=== PATIENT | male | born 1945 | race Caucasian/White ===

== ENCOUNTER 2017-07-02 15:14 | Inpatient (IN) | payer MEDICARE, MEDICAID ==
[2017-07-02] VITALS (7 sets, daily range): BP systolic 110–147; BP diastolic 54–59; PULSE 67–74; RESP 16–20; TEMP 97.7–98.3; O2SAT 96–98
[~2017-07-02] VITALS: Ht 172.7 cm; Wt 114.8 kg
[~2017-07-02 15:14] MED LIST: BUME2TAB PO; LANTUSP SQ; LISI-366 PO; LORT5TAB PO; LYRI150C PO; METO50TA OR; NOVOLOGP2 SQ; OMEP20TA OR; PRED10PA PO; RAMI10CA PO; SPIR25TA PO; SYNT25TA PO
[2017-07-02] MEDS ORDERED: SODIUM CHLORIDE 0.9% FLUSH 10 ML FLUSH IV FLUSH PRN ×2 (15:45→19:00)
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
[2017-07-02] MEDS ORDERED: PREG25 PO (15:54)
[2017-07-02] MEDS ORDERED: B-CO1TAB21 PO (15:54)
[2017-07-02] MEDS ORDERED: DOCU100T9 PO (15:54)
[2017-07-02] MEDS ORDERED: CALC500C16 CHEW (15:54)
[2017-07-02] MEDS ORDERED: ISOS60TA PO (15:54)
[2017-07-02] MEDS ORDERED: FERR325T8 PO (15:54)
[2017-07-02] MEDS ORDERED: SPIRCAP INH (15:54)
[2017-07-02] MEDS ORDERED: OMEP20TA PO (15:54)
[2017-07-02] MEDS ORDERED: ATOR40TA16 PO (15:54)
[2017-07-02] MEDS ORDERED: FURO40TA PO (15:54)
[2017-07-02] MEDS ORDERED: LEVO200T4 PO (15:54)
[2017-07-02] MEDS ORDERED: PIOG45TA3 PO (15:54)
[2017-07-02] MEDS ORDERED: METO-309 PO (15:54)
[2017-07-02] MEDS ORDERED: CALC0.25 PO (15:54)
[2017-07-02] MEDS ORDERED: APIX5TAB PO (15:54)
[2017-07-02] MEDS ORDERED: LANTINJ SQ (15:54)
[2017-07-02] MEDS ORDERED: MAGN400T2 PO (15:54)
[2017-07-02] MEDS ORDERED: TAMS0.4C4 PO (15:54)
[2017-07-02 16:00] LABS: AUTOMATED NEUTROPHIL # 12.1 TH/MM3 (1.8-7.7); BASOPHIL # 0.1 TH/MM3 (0-0.2); BASOPHIL % 0.4 % (0.0-2.0); EOSINOPHIL # 0.5 TH/MM3 (0-0.4); EOSINOPHIL % 3.4 % (0.0-4.0); HEMATOCRIT 31.2 % (39.0-51.0); HEMO FLAGS DIFF FINAL; LYMPH % 5.9 % (9.0-44.0); LYMPHOCYTE # 0.9 TH/MM3 (1.0-4.8); MEAN CELL VOLUME 88.8 FL (80.0-100.0); MEAN CORPUSCULAR HEMOGLOBIN 29.7 PG (27.0-34.0); MEAN CORPUSCULAR HGB CONC 33.5 % (32.0-36.0); NEUT % 78.3 % (16.0-70.0); PLATELET COUNT 423 TH/MM3 (150-450); RED BLOOD COUNT 3.51 MIL/MM3 (4.50-5.90); RED CELL DISTRIBUTION WIDTH 12.4 % (11.6-17.2); WHITE BLOOD COUNT 15.5 TH/MM3 (4.0-11.0)
[2017-07-02 16:09] LABS: CHLORIDE 95 MEQ/L (98-107); POTASSIUM 4.5 MEQ/L (3.5-5.1); SODIUM (NA) 129 MEQ/L (136-145)
[2017-07-02 16:13] LABS: ANION GAP 9 MEQ/L (5-15); BICARBONATE 25.1 MEQ/L (21.0-32.0); BLOOD UREA NITROGEN 76 MG/DL (7-18)
[2017-07-02 16:16] LABS: ALT (GPT) 25 U/L (12-78); AST (GOT) 23 U/L (15-37); GLOMERULAR FILTRATION RATE 18 ML/MIN (>89)
[2017-07-02 16:17] LABS: TOTAL BILIRUBIN ADULT 0.3 MG/DL (0.2-1.0)
[2017-07-02 16:19] LABS: ALKALINE PHOSPHATASE 165 U/L (45-117)
[2017-07-02] MEDS ORDERED: SODIUM CHLORID 0.9% 500 ML INJ 500 ML IV ONE (16:30)
[2017-07-02] MEDS ORDERED: SODIUM CHLOR 0.9% 1000 ML INJ 1,000 ML IV ONE (16:30)
--- NOTE | 2017-07-02 17:02 | RADRPT ---
EXAM DATE/TIME: 07/02/2017 16:45 [place] COMPARISON: No previous studies available for comparison. INDICATIONS : Generalized abdominal pain. ORAL CONTRAST: No oral contrast ingested. RADIATION DOSE: 24.99 CTDIvol (mGy) MEDICAL HISTORY : Cerebrovascular disease. Cardiovascular disease Diabetes SURGICAL HISTORY : CABG ENCOUNTER: Initial ACUITY: 1 day PAIN SCALE: 7/10 LOCATION: Bilateral abdomen TECHNIQUE: Volumetric scanning of the abdomen and pelvis was performed. Using automated exposure control and ad justment of the mA and/or kV according to patient size, radiation dose was kept as low as reasonably achievable to obtain optimal diagnostic quality images. DICOM format image data is available electro nically for review and comparison. FINDINGS: LOWER LUNGS: The visualized lower lungs are clear. LIVER: Homogeneous density without lesion. There is no dilation of the biliary tree. No calcified gallston es. SPLEEN: Normal size without lesion. PANCREAS: Within normal limits. KIDNEYS: There is a 9-10 mm stone in the left renal pelvis. No evidence of associated hydronephrosis. Vascular calcifications involving the left renal vessels. No stone, mass or hydronephrosis. ADRENAL GLANDS: Within normal limits. VASCULAR: There is no aortic aneurysm. BOWEL/MESENTERY: The stomach, small bowel, and colon demonstrate no acute abnormality. There is no free intraperitone al air or fluid. ABDOMINAL WALL: Within normal limits. RETROPERITONEUM: There is no lymphadenopathy. BLADDER: No wall thickening or mass. REPRODUCTIVE: Within normal limits. INGUINAL: There is no lymphadenopathy or hernia. MUSCULOSKELETAL: Within normal limits for patient age. CONCLUSION: 9-10 mm right kidney stone. No hydronephrosis. Otherwise benign focally unremarkable CT appearance of the abdomen and pelvis. Ashvin Pereira MD on July 02, 2017 at 16:56 Board Certified Radiologist. This report was verified electronically.
[2017-07-02 17:45] LABS: BLOOD, URINE LARGE (NEG); GLUCOSE,URINE NEG (NEG); KETONE, URINE NEG (NEG); NITRITE,URINE NEG (NEG)
[2017-07-02 17:58] LABS: METHOD OF COLLECTION CATH; URINE COLOR YELLOW (YELLW/STRAW)
[2017-07-02 17:59] LABS: MUCUS URINE FEW /lpf (OCC); RBC, URINE INNUM /hpf (0-3); SQUAMOUS EPITHELIAL CELL URINE 0-5 /hpf (0-5)
[2017-07-02 18:01] LABS: BACTERIA, URINE OCC /hpf; COMMENT (UR) CATH-CULTURE IND; CULTURE IF INDICATED CATH CULTURE IND
[2017-07-02] MEDS ORDERED: cefTRIAXone INJ 1,000 MG in SODIUM CHLORIDE 0.9% INJ 100 ML IV ONE (18:15)
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
[2017-07-02] MEDS ORDERED: MAGNESIUM HYDROXIDE SUSP 30 ML CUP PO PRN (19:00)
[2017-07-02] MEDS ORDERED: CALCIUM CARBONATE 500 MG CHEWABLE TAB CHEW PRN (19:00)
[2017-07-02] MEDS ORDERED: NALOXONE HCL 0.4 MG/ML AMP IV PRN (19:00)
[2017-07-02] MEDS ORDERED: BISACODYL 10 MG SUPP RECTAL PRN (19:00)
[2017-07-02] MEDS ORDERED: GLUCAGON 1 MG/ML VIAL OTHER PRN (19:00)
[2017-07-02] MEDS ORDERED: DEXTROSE 50% IN WATER 50 ML VIAL(D50) IV PRN (19:00)
[2017-07-02] MEDS ORDERED: ONDANSETRON HCL 4 MG/2 ML VIAL IVP PRN (19:00)
[2017-07-02] MEDS ORDERED: LACTULOSE SYRUP 20 GM/30 ML CUP PO PRN (19:00)
[2017-07-02] MEDS ORDERED: SENNOSIDES 8.6 MG TAB PO PRN (19:00)
[2017-07-02] MEDS: INSULIN ASPART SUPPLEMENTAL SCALE SQ SCH (21:00)
[2017-07-02] MEDS: PANTOPRAZOLE SOD 20 MG DELAYED RELEASE TAB PO SCH ×2 (21:14→21:16)
[2017-07-02] MEDS: TAMSULOSIN HCL 0.4 MG CAP PO SCH ×2 (21:14→21:16)
[2017-07-02] MEDS: METOPROLOL TARTRATE 50 MG TAB PO SCH ×2 (21:14→21:16)
[2017-07-02] MEDS: DOCUSATE SODIUM 100 MG CAP PO SCH ×2 (21:14→21:16)
[2017-07-02] MEDS: DOCUSATE SODIUM 50 MG/SENNA 8.6 MG TAB PO SCH (21:17)
[2017-07-02] MEDS: APIXABAN 2.5 MG TABLET PO SCH (22:23)
[2017-07-02] MEDS: ATORVASTATIN 40 MG TAB PO SCH (22:24)
[2017-07-02] MEDS: PREGABALIN 25 MG CAP PO SCH (22:24)
[2017-07-02] MEDS: SODIUM CHLOR 0.9% 1000 ML INJ 1,000 ML IV SCH (22:24)
[2017-07-02] MEDS: SODIUM CHLORIDE 0.9% FLUSH 10 ML FLUSH IV FLUSH SCH (22:28)
[2017-07-02] MEDS: INSULIN DETEMIR 100 UNITS/ML VIAL SQ SCH (22:34)
[2017-07-03 04:00] VITALS: BP 107/53; PULSE 75; RESP 20; TEMP 98.9; O2SAT 95
[2017-07-03] MEDS: INSULIN ASPART SUPPLEMENTAL SCALE SQ SCH ×4 (05:20→21:00)
[2017-07-03] MEDS: LEVOTHYROXINE SODIUM 200 MCG TAB PO SCH (05:21)
[2017-07-03 06:38] LABS: AUTOMATED NEUTROPHIL # 9.7 TH/MM3 (1.8-7.7); BASOPHIL % 0.3 % (0.0-2.0); EOSINOPHIL # 0.5 TH/MM3 (0-0.4); HEMATOCRIT 28.4 % (39.0-51.0); LYMPH % 7.7 % (9.0-44.0); MEAN CELL VOLUME 88.2 FL (80.0-100.0); MEAN CORPUSCULAR HEMOGLOBIN 28.8 PG (27.0-34.0); MEAN CORPUSCULAR HGB CONC 32.6 % (32.0-36.0); MONO % 11.4 % (0.0-8.0); NEUT % 76.6 % (16.0-70.0); PLATELET COUNT 402 TH/MM3 (150-450); RED BLOOD COUNT 3.22 MIL/MM3 (4.50-5.90); RED CELL DISTRIBUTION WIDTH 12.4 % (11.6-17.2); WHITE BLOOD COUNT 12.6 TH/MM3 (4.0-11.0)
[2017-07-03 06:46] LABS: HEMO FLAGS DIFF FINAL
[2017-07-03 06:59] LABS: POTASSIUM 4.3 MEQ/L (3.5-5.1)
[2017-07-03 07:02] LABS: BICARBONATE 25.1 MEQ/L (21.0-32.0)
[2017-07-03 08:00] VITALS: BP 153/70; PULSE 73; RESP 20; TEMP 98; O2SAT 95
[2017-07-03] MEDS ORDERED: [UNRECOGNIZED DRUG - OTHER] PO SCH (09:00)
[2017-07-03] MEDS: MAGNESIUM OXIDE 400 MG TAB PO SCH (09:09)
[2017-07-03] MEDS: CALCITRIOL 0.25 MCG CAP PO SCH (09:09)
[2017-07-03] MEDS: PREGABALIN 25 MG CAP PO SCH ×2 (09:09→21:54)
[2017-07-03] MEDS: DOCUSATE SODIUM 50 MG/SENNA 8.6 MG TAB PO SCH ×2 (09:09→21:54)
[2017-07-03] MEDS: APIXABAN 2.5 MG TABLET PO SCH ×2 (09:10→21:53)
[2017-07-03] MEDS: DOCUSATE SODIUM 100 MG CAP PO SCH (09:10)
[2017-07-03] MEDS: ISOSORBIDE MONONITRATE 60 MG TAB PO SCH (09:10)
[2017-07-03] MEDS: PANTOPRAZOLE SOD 20 MG DELAYED RELEASE TAB PO SCH ×2 (09:10→21:54)
[2017-07-03] MEDS: SODIUM CHLORIDE 0.9% FLUSH 10 ML FLUSH IV FLUSH SCH ×2 (09:12→20:29)
[2017-07-03] MEDS: FERROUS SULFATE 325 MG (65 MG ELEMENTAL IRON) TAB PO SCH ×2 (09:38→17:36)
[2017-07-03] MEDS: TIOTROPIUM BROMIDE 18 MCG INH INH SCH (11:00)
[2017-07-03] MEDS: SODIUM CHLOR 0.9% 1000 ML INJ 1,000 ML IV SCH (11:02)
[2017-07-03 12:00] VITALS: BP 148/72; PULSE 74; RESP 20; TEMP 98.1; O2SAT 95
--- NOTE | 2017-07-03 12:19 | HHI.PR ---
Subjective Remarks Patient continues to complain of pain all over. He has a Mans[place] catheter and with adequate urine output. Objective Vitals Vital Signs Date Time Temp Pulse Resp B/P (MAP) Pulse Ox O2 Delivery O2 Flow Rate FiO2 07/03/17 11:03 18 07/03/17 08:00 98.0 73 20 153/70 (97) 95 07/03/17 04:00 98.9 75 20 107/53 (71) 95 07/02/17 22:00 97.7 74 20 118/58 (78) 97 07/02/17 21:27 77 18 147/55 (85) 96 07/02/17 20:30 72 18 144/55 (84) 96 Room Air 07/02/17 19:30 16 07/02/17 19:19 72 16 141/59 (86) 96 Room Air 07/02/17 17:08 97 Room Air 07/02/17 17:00 98.3 74 18 134/59 (84) 98 Room Air 07/02/17 15:23 98.3 67 18 110/54 (72) 98 I/O 07/02/17 07/02/17 07/02/17 07/03/17 07/03/17 07/03/17 07:00 15:00 23:00 07:00 15:00 23:00 Intake Total 600 ml 1960 ml Output Total 750 ml 1525 ml Balance -150 ml 435 ml Intake Oral 460 ml IV Total 600 ml 1500 ml Output Urine Total 750 ml 1525 ml Bladder Scan Volume Amount 0 ml # Bowel Movements 0 Result Diagram: 07/03/17 0609 07/03/17 0609 Objective Remarks GENERAL: Well-nourished, well-developed obese male patient. SKIN: Warm and dry. HEAD: Normocephalic. EYES: No scleral icterus. No injection or drainage. NECK: Supple, trachea midline. No JVD or lymphadenopathy. CARDIOVASCULAR: Regular rate and rhythm without murmurs, gallops, or rubs. RESPIRATORY: Breath sounds equal bilaterally. No accessory muscle use. GASTROINTESTINAL: Abdomen soft, non-tender, nondistended. EXTREMITIES: 1+ pedal edema NEUROLOGICAL: Awake, alert, and oriented x 3. Non-focal. A/P Problem List: (1) GABBI (acute kidney injury) ICD Code: N17.9 - Acute kidney failure, unspecified (2) CKD (chronic kidney disease), stage IV ICD Code: N18.4 - Chronic kidney disease, stage 4 (severe) (3) Type 2 diabetes mellitus ICD Code: E11.9 - Type 2 diabetes mellitus without complications (4) Coronary artery disease ICD Code: I25.10 - Atherosclerotic heart disease of [place] coronary artery without angina pectoris (5) Cerebrovascular disease ICD Code: I67.9 - Cerebrovascular disease, unspecified (6) Generalized pain ICD Code: R52 - Pain, unspecified (7) UTI (urinary tract infection) ICD Code: N39.0 - Urinary tract infection, site not specified Status: Acute Assessment and Plan -Acute kidney injury superimposed on chronic kidney disease stage IV - likely etiology is decreased by mouth intake versus secondary to his Lasix. Abdominal CT scan shows a nondistended bladder. He did undergo a TURP several weeks ago. Treat with gentle IV fluids. Continue with Mansfield catheter. -Urinary tract infection with leukocytosis, he does not meet sepsis criteria. Continue with Rocephin IV. Follow-up urine cultures. -Type 2 diabetes -continue Lantus 12 units subcutaneous at bedtime, and sliding scale insulin. -Coronary artery disease status post CABG, status post stent one month ago with Dr. Jenkins as per the patient - continue Eliquis, it has been changed to renal dosing. -BPH status post TURP several weeks ago - continue Flomax. Continue Mansfield catheter. Possible trial to discontinue tomorrow if renal function improved. -Cerebrovascular disease with history of stroke - continue Eliquis, statin. -Reported history of paroxysmal Atrial fibrillation - continue Eliquis, metoprolol. -COPD-use DuoNeb's when necessary. -Fibromyalgia - continue Lyrica -Anemia of chronic kidney disease - follow CBC, continue iron supplementation. -History of gastric ulcer. Continue PPI. -DVT prophylaxis with Eliquis, SCDs and SHANIA hose. Problem Qualifiers (1) UTI (urinary tract infection): Qualified Codes: N39.0 - Urinary tract infection, site not specified; R31.9 - Hematuria, unspecified Patience Pacheco MD Jul 03, 2017 12:19
--- NOTE | 2017-07-03 13:52 | EKG ---
Date Performed: 07/02/2017 Time Performed: 16:15:41 PTAGE: 71 years EKG: Sinus rhythm NORMAL ECG Compared to prior tracing no significant change PREVIOUS TRACING : 10/25/2011 04.51 DOCTOR: Cecilio Aguilar Interpretating Date/Time 07/03/2017 13:50:56
[2017-07-03 16:00] VITALS: BP 145/78; PULSE 73; RESP 20; TEMP 98.2; O2SAT 95
[2017-07-03] MEDS: cefTRIAXone INJ 1,000 MG in SODIUM CHLORIDE 0.9% INJ 100 ML IV SCH (17:36)
[2017-07-03 20:00] VITALS: BP 158/67; PULSE 75; RESP 20; TEMP 98.8; O2SAT 96
[2017-07-03] MEDS: METOPROLOL TARTRATE 50 MG TAB PO SCH (21:54)
[2017-07-03] MEDS: ATORVASTATIN 40 MG TAB PO SCH (21:54)
[2017-07-03] MEDS: TAMSULOSIN HCL 0.4 MG CAP PO SCH (21:54)
[2017-07-03] MEDS: INSULIN DETEMIR 100 UNITS/ML VIAL SQ SCH (22:02)
[2017-07-03] MEDS ORDERED: ACETAMINOPHEN/HYDROcodone 325 MG/5 MG TAB PO ONE (22:30)
[2017-07-04] VITALS (7 sets, daily range): BP systolic 132–163; BP diastolic 64–90; PULSE 62–75; RESP 16–22; TEMP 96–98.7; O2SAT 95–99
[2017-07-04] MEDS: LEVOTHYROXINE SODIUM 200 MCG TAB PO SCH (05:19)
[2017-07-04] MEDS: INSULIN ASPART SUPPLEMENTAL SCALE SQ SCH ×4 (05:50→21:00)
[2017-07-04] MEDS: SODIUM CHLOR 0.9% 1000 ML INJ 1,000 ML IV SCH (06:12)
[2017-07-04 07:44] LABS: BICARBONATE 25.6 MEQ/L (21.0-32.0)
[2017-07-04 08:39] LABS: AUTOMATED NEUTROPHIL # 8.7 TH/MM3 (1.8-7.7); BASOPHIL % 0.1 % (0.0-2.0); EOSINOPHIL # 0.5 TH/MM3 (0-0.4); EOSINOPHIL % 4.4 % (0.0-4.0); HEMATOCRIT 27.8 % (39.0-51.0); HEMO FLAGS DIFF FINAL; LYMPHOCYTE # 0.9 TH/MM3 (1.0-4.8); MEAN CELL VOLUME 89.7 FL (80.0-100.0); MEAN CORPUSCULAR HEMOGLOBIN 30.9 PG (27.0-34.0); MEAN CORPUSCULAR HGB CONC 34.4 % (32.0-36.0); MONO % 11.2 % (0.0-8.0); NEUT % 76.3 % (16.0-70.0); PLATELET COUNT 414 TH/MM3 (150-450); RED CELL DISTRIBUTION WIDTH 12.4 % (11.6-17.2); WHITE BLOOD COUNT 11.4 TH/MM3 (4.0-11.0)
[2017-07-04] MEDS: TIOTROPIUM BROMIDE 18 MCG INH INH SCH (08:54)
[2017-07-04] MEDS: DOCUSATE SODIUM 50 MG/SENNA 8.6 MG TAB PO SCH ×2 (08:55→22:20)
[2017-07-04] MEDS: FERROUS SULFATE 325 MG (65 MG ELEMENTAL IRON) TAB PO SCH ×2 (08:55→17:19)
[2017-07-04] MEDS: ISOSORBIDE MONONITRATE 60 MG TAB PO SCH (08:55)
[2017-07-04] MEDS: CALCITRIOL 0.25 MCG CAP PO SCH (08:55)
[2017-07-04] MEDS: MAGNESIUM OXIDE 400 MG TAB PO SCH (08:55)
[2017-07-04] MEDS: APIXABAN 2.5 MG TABLET PO SCH ×2 (08:55→22:19)
[2017-07-04] MEDS: SODIUM CHLORIDE 0.9% FLUSH 10 ML FLUSH IV FLUSH SCH ×2 (08:55→22:19)
[2017-07-04] MEDS: PREGABALIN 25 MG CAP PO SCH ×2 (09:09→22:20)
[2017-07-04] MEDS: METOPROLOL TARTRATE 50 MG TAB PO SCH ×2 (09:09→22:20)
[2017-07-04] MEDS: PANTOPRAZOLE SOD 20 MG DELAYED RELEASE TAB PO SCH ×2 (09:09→22:20)
[2017-07-04] MEDS: ACETAMINOPHEN 325 MG TAB PO PRN (09:13)
--- NOTE | 2017-07-04 11:50 | HHI.PR ---
Subjective Remarks Patient reports he is feeling tired and achy all over. Discussed with RN. He was not able to get up to the chair today due to pain.. Objective Vitals Vital Signs Date Time Temp Pulse Resp B/P (MAP) Pulse Ox O2 Delivery O2 Flow Rate FiO2 07/04/17 10:09 20 07/04/17 10:09 20 07/04/17 08:00 98.7 75 20 139/90 (106) 95 07/04/17 04:00 96.9 70 20 149/72 (97) 97 07/04/17 03:00 96.0 72 20 144/64 (90) 97 07/04/17 00:00 96.0 72 20 144/64 (90) 97 07/03/17 20:00 98.8 75 20 158/67 (97) 96 07/03/17 16:00 98.2 73 20 145/78 (100) 95 07/03/17 12:00 98.1 74 20 148/72 (97) 95 I/O 07/03/17 07/03/17 07/03/17 07/04/17 07/04/17 07/04/17 07:00 15:00 23:00 07:00 15:00 23:00 Intake Total 1960 ml 120 ml 863 ml 60 ml Output Total 1525 ml 1650 ml 800 ml Balance 435 ml -1530 ml 863 ml -740 ml Intake Oral 460 ml 120 ml 120 ml 60 ml IV Total 1500 ml 743 ml Output Urine Total 1525 ml 1650 ml 800 ml # Bowel Movements 0 0 0 Result Diagram: 07/04/17 0655 07/04/17 0655 Imaging Last Impressions Abdomen/Pelvis CT 07/02/17 0000 Signed Impressions: Service Date/Time: Sunday, July 02, 2017 16:45 - CONCLUSION: 9-10 mm right kidney stone. No hydronephrosis. Otherwise benign focally unremarkable CT appearance of the abdomen and pelvis. Ashvin Pereira MD Objective Remarks GENERAL: Obese male in no apparent distress. CARDIOVASCULAR: Normal rate and regular rhythm without murmurs, gallops, or rubs. RESPIRATORY: Good respiratory efforts. Breath sounds equal and clear to auscultation bilaterally. GASTROINTESTINAL: Abdomen soft, non-tender, non-distended. Normal active bowel sounds MUSCULOSKELETAL: 2+ bilateral lower extremity edema NEURO: Alert & Oriented x4 to person, place, time, situation. Moves all ext x4 PSYCH: Appropriate mood and affect. A/P Problem List: (1) GABBI (acute kidney injury) ICD Code: N17.9 - Acute kidney failure, unspecified (2) CKD (chronic kidney disease), stage IV ICD Code: N18.4 - Chronic kidney disease, stage 4 (severe) (3) Type 2 diabetes mellitus ICD Code: E11.9 - Type 2 diabetes mellitus without complications (4) Coronary artery disease ICD Code: I25.10 - Atherosclerotic heart disease of [place] coronary artery without angina pectoris (5) Cerebrovascular disease ICD Code: I67.9 - Cerebrovascular disease, unspecified (6) Generalized pain ICD Code: R52 - Pain, unspecified (7) UTI (urinary tract infection) ICD Code: N39.0 - Urinary tract infection, site not specified Status: Acute Assessment and Plan 71-year-old male admitted for: Acute kidney injury superimposed on chronic kidney disease stage IV - likely etiology is decreased by mouth intake versus secondary to his Lasix. Abdominal CT scan shows a nondistended bladder. He did undergo a TURP several weeks ago. Renal function improving. Treat with gentle IV fluids. Continue with Mansfield catheter. Urinary tract infection with leukocytosis, he does not meet sepsis criteria. Continue with Rocephin IV. Follow-up urine cultures. Type 2 diabetes -continue Lantus 12 units subcutaneous at bedtime, and sliding scale insulin. Coronary artery disease status post CABG, status post stent one month ago with Dr. Jenkins as per the patient - continue Eliquis, it has been changed to renal dosing. PH status post TURP several weeks ago - continue Flomax. Continue Mansfield catheter. Possible trial to discontinue tomorrow if renal function improved. Cerebrovascular disease with history of stroke - continue Eliquis, statin. Reported history of paroxysmal Atrial fibrillation - continue Eliquis, metoprolol. COPD-use DuoNeb's when necessary. Fibromyalgia - continue Lyrica. Pain is interfering with physical activity. Will add [place] as needed. Anemia of chronic kidney disease - follow CBC, continue iron supplementation. History of gastric ulcer. Continue PPI. DVT prophylaxis with Eliquis, SCDs and SHANIA hose. Problem Qualifiers (1) UTI (urinary tract infection): Qualified Codes: N39.0 - Urinary tract infection, site not specified; R31.9 - Hematuria, unspecified Marek Lucio MD Jul 04, 2017 11:50
[2017-07-04] MEDS: ACETAMINOPHEN/HYDROcodone 325 MG/5 MG TAB PO PRN ×2 (12:20→22:21)
[2017-07-04] MEDS: cefTRIAXone INJ 1,000 MG in SODIUM CHLORIDE 0.9% INJ 100 ML IV SCH (15:04)
[2017-07-04] MEDS: NYSTATIN 100,000 U/GM PWD 15 GM BTL TOPICAL SCH ×2 (17:15→21:00)
[2017-07-04] MEDS: TAMSULOSIN HCL 0.4 MG CAP PO SCH (22:20)
[2017-07-04] MEDS: ATORVASTATIN 40 MG TAB PO SCH (22:20)
[2017-07-04] MEDS: INSULIN DETEMIR 100 UNITS/ML VIAL SQ SCH (22:23)
[2017-07-05] VITALS: BP 172/72; PULSE 69; RESP 16; TEMP 96.7; O2SAT 96
[2017-07-05 04:00] VITALS: BP 143/68; PULSE 77; RESP 16; TEMP 97.6; O2SAT 96
[2017-07-05] MEDS: LEVOTHYROXINE SODIUM 200 MCG TAB PO SCH (05:13)
[2017-07-05] MEDS: ACETAMINOPHEN/HYDROcodone 325 MG/5 MG TAB PO PRN ×2 (05:14→16:43)
[2017-07-05 06:57] LABS: MEAN CELL VOLUME 88.5 FL (80.0-100.0); MEAN CORPUSCULAR HEMOGLOBIN 29.4 PG (27.0-34.0); MEAN CORPUSCULAR HGB CONC 33.3 % (32.0-36.0); PLATELET COUNT 494 TH/MM3 (150-450); RED BLOOD COUNT 3.27 MIL/MM3 (4.50-5.90); RED CELL DISTRIBUTION WIDTH 12.1 % (11.6-17.2); REVIEW FLAG FINAL
[2017-07-05 08:00] VITALS: BP 126/79; PULSE 79; RESP 18; TEMP 98.1; O2SAT 95
[2017-07-05] MEDS: INSULIN ASPART SUPPLEMENTAL SCALE SQ SCH ×4 (08:00→20:41)
[2017-07-05] MEDS: TIOTROPIUM BROMIDE 18 MCG INH INH SCH (09:00)
[2017-07-05] MEDS: NYSTATIN 100,000 U/GM PWD 15 GM BTL TOPICAL SCH ×2 (09:00→20:41)
[2017-07-05] MEDS: CALCITRIOL 0.25 MCG CAP PO SCH (09:35)
[2017-07-05] MEDS: APIXABAN 2.5 MG TABLET PO SCH ×2 (09:35→20:40)
[2017-07-05] MEDS: METOPROLOL TARTRATE 50 MG TAB PO SCH ×2 (09:35→20:40)
[2017-07-05] MEDS: ISOSORBIDE MONONITRATE 60 MG TAB PO SCH (09:35)
[2017-07-05] MEDS: FERROUS SULFATE 325 MG (65 MG ELEMENTAL IRON) TAB PO SCH ×2 (09:35→16:42)
[2017-07-05] MEDS: SODIUM CHLORIDE 0.9% FLUSH 10 ML FLUSH IV FLUSH SCH ×2 (09:36→20:39)
[2017-07-05] MEDS: PANTOPRAZOLE SOD 20 MG DELAYED RELEASE TAB PO SCH ×2 (09:36→20:39)
[2017-07-05] MEDS: PREGABALIN 25 MG CAP PO SCH ×2 (09:36→20:39)
[2017-07-05] MEDS: DOCUSATE SODIUM 50 MG/SENNA 8.6 MG TAB PO SCH ×2 (09:36→20:39)
[2017-07-05] MEDS: MAGNESIUM OXIDE 400 MG TAB PO SCH (09:36)
[2017-07-05 12:00] VITALS: BP 131/77; PULSE 77; RESP 19; TEMP 98; O2SAT 97
--- NOTE | 2017-07-05 14:44 | HHI.PR ---
Subjective Remarks Patient seen and evaluated in follow-up for acute kidney injury and for urinary tract infection. Patient will start Macrodantin due to sensitivities he has refused medications for his dermatitis Objective Vitals Vital Signs Date Time Temp Pulse Resp B/P (MAP) Pulse Ox O2 Delivery O2 Flow Rate FiO2 07/05/17 12:00 98.0 77 19 131/77 (95) 97 07/05/17 11:46 20 07/05/17 08:00 98.1 79 18 126/79 (95) 95 07/05/17 04:00 97.6 77 16 143/68 (93) 96 07/05/17 00:00 96.7 69 16 172/72 (105) 96 07/04/17 20:00 97.2 74 16 163/72 (102) 99 07/04/17 16:00 98.4 70 20 132/75 (94) 96 I/O 07/04/17 07/04/17 07/04/17 07/05/17 07/05/17 07/05/17 07:00 15:00 23:00 07:00 15:00 23:00 Intake Total 863 ml 60 ml 1920 ml 480 ml Output Total 800 ml 2400 ml 950 ml 800 ml Balance 863 ml -740 ml -480 ml -470 ml -800 ml Intake Oral 120 ml 60 ml 900 ml 480 ml IV Total 743 ml 1020 ml Output Urine Total 800 ml 2400 ml 950 ml 800 ml Bladder Scan Volume Amount 0 ml # Bowel Movements 0 1 0 Result Diagram: 07/05/17 0535 07/05/17 0535 Objective Remarks Significant dermatitis, candidal GENERAL: This is a well-nourished, well-developed patient, in no apparent distress. CARDIOVASCULAR: Regular rate and rhythm without murmurs, gallops, or rubs. RESPIRATORY: Clear to auscultation. Breath sounds equal bilaterally. No wheezes , rales, or rhonchi. GASTROINTESTINAL: Abdomen soft, non-tender, nondistended. Normal active bowel sounds MUSCULOSKELETAL: Extremities without clubbing, cyanosis, or edema. NEURO: Alert & Oriented x4 to person, place, time, situation. Moves all ext x4 A/P Problem List: (1) GABBI (acute kidney injury) ICD Code: N17.9 - Acute kidney failure, unspecified Plan: Improved, continue IV hydration and follow-up on antibiotics for UTI (2) CKD (chronic kidney disease), stage IV ICD Code: N18.4 - Chronic kidney disease, stage 4 (severe) Plan: Appears to be back at baseline (3) Type 2 diabetes mellitus ICD Code: E11.9 - Type 2 diabetes mellitus without complications Plan: Continue diabetic management Discharge Planning Likely home in Evelyn Whitt MD Jul 05, 2017 14:44
[2017-07-05 16:00] VITALS: BP 129/79; PULSE 79; RESP 18; TEMP 97.8; O2SAT 96
[2017-07-05] MEDS: NITROFURANTOIN MONOHYD MACROCR 100 MG CAP PO SCH (16:42)
[2017-07-05 20:00] VITALS: BP 160/80; PULSE 63; PULSE 76; RESP 20; TEMP 96.7; O2SAT 99
[2017-07-05] MEDS: INSULIN DETEMIR 100 UNITS/ML VIAL SQ SCH (20:40)
[2017-07-05] MEDS: TAMSULOSIN HCL 0.4 MG CAP PO SCH (20:40)
[2017-07-05] MEDS: ATORVASTATIN 40 MG TAB PO SCH (20:40)
[2017-07-06] VITALS: BP 157/77; PULSE 75; RESP 20; TEMP 98.1; O2SAT 97
[2017-07-06 04:00] VITALS: BP 168/78; PULSE 70; RESP 18; TEMP 98.2; O2SAT 97
[2017-07-06] MEDS: LEVOTHYROXINE SODIUM 200 MCG TAB PO SCH (05:17)
[2017-07-06] MEDS: ACETAMINOPHEN/HYDROcodone 325 MG/5 MG TAB PO PRN ×4 (05:17→23:55)
[2017-07-06] MEDS ORDERED: hydrALAZINE HCL 25 MG TAB PO ONE (06:30)
[2017-07-06 07:00] LABS: POTASSIUM 3.9 MEQ/L (3.5-5.1)
[2017-07-06 07:06] LABS: BICARBONATE 25.8 MEQ/L (21.0-32.0)
[2017-07-06 08:00] VITALS: BP 125/75; PULSE 72; PULSE 76; RESP 16; TEMP 97.7; O2SAT 96
[2017-07-06] MEDS: INSULIN ASPART SUPPLEMENTAL SCALE SQ SCH ×4 (08:00→21:00)
[2017-07-06] MEDS: DOCUSATE SODIUM 50 MG/SENNA 8.6 MG TAB PO SCH ×2 (08:43→21:47)
[2017-07-06] MEDS: PANTOPRAZOLE SOD 20 MG DELAYED RELEASE TAB PO SCH ×2 (08:43→21:47)
[2017-07-06] MEDS: PREGABALIN 25 MG CAP PO SCH ×2 (08:43→21:47)
[2017-07-06] MEDS: MAGNESIUM OXIDE 400 MG TAB PO SCH (08:44)
[2017-07-06] MEDS: METOPROLOL TARTRATE 50 MG TAB PO SCH ×2 (08:44→21:47)
[2017-07-06] MEDS: CALCITRIOL 0.25 MCG CAP PO SCH (08:44)
[2017-07-06] MEDS: NITROFURANTOIN MONOHYD MACROCR 100 MG CAP PO SCH (08:44)
[2017-07-06] MEDS: APIXABAN 2.5 MG TABLET PO SCH ×2 (08:44→21:47)
[2017-07-06] MEDS: FERROUS SULFATE 325 MG (65 MG ELEMENTAL IRON) TAB PO SCH ×2 (08:44→17:03)
[2017-07-06] MEDS: ISOSORBIDE MONONITRATE 60 MG TAB PO SCH (08:44)
[2017-07-06] MEDS: SODIUM CHLORIDE 0.9% FLUSH 10 ML FLUSH IV FLUSH SCH ×2 (08:45→21:46)
[2017-07-06] MEDS: NYSTATIN 100,000 U/GM PWD 15 GM BTL TOPICAL SCH ×2 (08:45→21:00)
[2017-07-06] MEDS: TIOTROPIUM BROMIDE 18 MCG INH INH SCH (11:06)
[2017-07-06 12:00] VITALS: BP 128/78; PULSE 69; RESP 20; TEMP 97.5; O2SAT 95
--- NOTE | 2017-07-06 12:37 | HHI.PR ---
Subjective Remarks Patient seen and evaluated today in follow-up for weakness. Improved. Renal function improved. Discharge plans discussed with patient and with case management. Patient is refusing discharge to group home facility Objective Vitals Vital Signs Date Time Temp Pulse Resp B/P (MAP) Pulse Ox O2 Delivery O2 Flow Rate FiO2 07/06/17 12:07 18 07/06/17 09:43 18 07/06/17 08:00 76 07/06/17 08:00 97.7 72 16 125/75 (92) 96 07/06/17 04:00 98.2 70 18 168/78 (108) 97 07/06/17 00:00 98.1 75 20 157/77 (103) 97 07/05/17 20:00 63 07/05/17 20:00 96.7 76 20 160/80 (106) 99 07/05/17 16:00 97.8 79 18 129/79 (96) 96 I/O 07/05/17 07/05/17 07/05/17 07/06/17 07/06/17 07/06/17 07:00 15:00 23:00 07:00 15:00 23:00 Intake Total 480 ml 120 ml 60 ml 0 ml Output Total 950 ml 800 ml 475 ml 600 ml Balance -470 ml -800 ml -355 ml -540 ml 0 ml Intake Oral 480 ml 120 ml 60 ml IV Total 0 ml Output Urine Total 950 ml 800 ml 475 ml 600 ml Bladder Scan Volume Amount 0 ml # Bowel Movements 0 2 1 Result Diagram: 07/05/17 0535 07/06/17 0540 Objective Remarks Significant dermatitis, candidal GENERAL: This is a well-nourished, well-developed patient, in no apparent distress. CARDIOVASCULAR: Regular rate and rhythm without murmurs, gallops, or rubs. RESPIRATORY: Clear to auscultation. Breath sounds equal bilaterally. No wheezes , rales, or rhonchi. GASTROINTESTINAL: Abdomen soft, non-tender, nondistended. Normal active bowel sounds MUSCULOSKELETAL: Extremities without clubbing, cyanosis, or edema. NEURO: Alert & Oriented x4 to person, place, time, situation. Moves all ext x4 A/P Problem List: (1) GABBI (acute kidney injury) ICD Code: N17.9 - Acute kidney failure, unspecified Plan: Improved, continue to follow, avoid nephrotoxic drugs (2) CKD (chronic kidney disease), stage IV ICD Code: N18.4 - Chronic kidney disease, stage 4 (severe) Plan: Appears to be back at baseline (3) Type 2 diabetes mellitus ICD Code: E11.9 - Type 2 diabetes mellitus without complications Plan: Continue diabetic management (4) UTI (urinary tract infection) ICD Code: N39.0 - Urinary tract infection, site not specified Status: Acute Plan: Continue with Macrodantin for staph epidermidis (5) Weakness ICD Code: R53.1 - Weakness Plan: Chronic continue rehabilitation efforts custodial facility recommended discharge and the patient has declined this. Discharge Planning AMA Discharge likely Problem Qualifiers (1) UTI (urinary tract infection): Qualified Codes: N39.0 - Urinary tract infection, site not specified; R31.9 - Hematuria, unspecified Evelyn Richardson MD Jul 06, 2017 12:37
[2017-07-06 16:00] VITALS: BP 149/67; PULSE 75; RESP 17; TEMP 97.7; O2SAT 96
[2017-07-06 16:02] LABS: BLOOD, URINE SMALL (NEG); GLUCOSE,URINE NEG (NEG); KETONE, URINE NEG (NEG); NITRITE,URINE NEG (NEG)
[2017-07-06 16:09] LABS: URINE COLOR YELLOW (YELLW/STRAW)
[2017-07-06 16:10] LABS: COMMENT (UR) CATH-CULTURE IND; CULTURE IF INDICATED CATH CULTURE IND; SQUAMOUS EPITHELIAL CELL URINE 0-5 /hpf (0-5)
[2017-07-06 20:00] VITALS: BP 133/64; PULSE 70; RESP 20; TEMP 97.9; O2SAT 97
[2017-07-06] MEDS: INSULIN DETEMIR 100 UNITS/ML VIAL SQ SCH (21:00)
[2017-07-06] MEDS: TAMSULOSIN HCL 0.4 MG CAP PO SCH (21:47)
[2017-07-06] MEDS: ATORVASTATIN 40 MG TAB PO SCH (21:47)
[2017-07-07] VITALS: BP 137/74; PULSE 72; RESP 20; TEMP 97.3; O2SAT 97
[2017-07-07] MEDS: LEVOTHYROXINE SODIUM 200 MCG TAB PO SCH (06:17)
[2017-07-07 08:00] VITALS: BP 154/84; PULSE 79; RESP 19; TEMP 97.4; O2SAT 98
[2017-07-07] MEDS: INSULIN ASPART SUPPLEMENTAL SCALE SQ SCH ×4 (08:00→21:00)
[2017-07-07] MEDS: DOCUSATE SODIUM 50 MG/SENNA 8.6 MG TAB PO SCH ×2 (08:14→21:07)
[2017-07-07] MEDS: MAGNESIUM OXIDE 400 MG TAB PO SCH (08:14)
[2017-07-07] MEDS: METOPROLOL TARTRATE 50 MG TAB PO SCH ×2 (08:14→21:07)
[2017-07-07] MEDS: APIXABAN 2.5 MG TABLET PO SCH ×2 (08:14→21:07)
[2017-07-07] MEDS: ISOSORBIDE MONONITRATE 60 MG TAB PO SCH (08:14)
[2017-07-07] MEDS: PREGABALIN 25 MG CAP PO SCH ×2 (08:14→21:07)
[2017-07-07] MEDS: FERROUS SULFATE 325 MG (65 MG ELEMENTAL IRON) TAB PO SCH ×2 (08:14→17:29)
[2017-07-07] MEDS: CALCITRIOL 0.25 MCG CAP PO SCH (08:15)
[2017-07-07] MEDS: ACETAMINOPHEN/HYDROcodone 325 MG/5 MG TAB PO PRN ×2 (08:15→21:07)
[2017-07-07] MEDS: PANTOPRAZOLE SOD 20 MG DELAYED RELEASE TAB PO SCH ×2 (08:15→21:07)
[2017-07-07] MEDS: SODIUM CHLORIDE 0.9% FLUSH 10 ML FLUSH IV FLUSH SCH ×2 (08:15→21:00)
[2017-07-07] MEDS: TIOTROPIUM BROMIDE 18 MCG INH INH SCH (08:15)
[2017-07-07] MEDS: NYSTATIN 100,000 U/GM PWD 15 GM BTL TOPICAL SCH ×2 (08:16→21:00)
[2017-07-07 11:00] VITALS: BP 121/57; PULSE 66; RESP 20; TEMP 96.6; O2SAT 98
--- NOTE | 2017-07-07 13:10 | HHI.PR ---
Subjective Remarks Patient seen and evaluated today in follow-up for acute kidney injury and dehydration. Overall improved. Patient now agreeable for discharge to rehabilitation. Repeat urinalysis is pending Objective Vitals Vital Signs Date Time Temp Pulse Resp B/P (MAP) Pulse Ox O2 Delivery O2 Flow Rate FiO2 07/07/17 11:00 96.6 66 20 121/57 (78) 98 07/07/17 09:30 18 07/07/17 09:30 18 07/07/17 08:00 97.4 79 19 154/84 (107) 98 07/07/17 00:00 97.3 72 20 137/74 (95) 97 07/06/17 20:00 97.9 70 20 133/64 (87) 97 07/06/17 16:00 97.7 75 17 149/67 (94) 96 I/O 07/06/17 07/06/17 07/06/17 07/07/17 07/07/17 07/07/17 07:00 15:00 23:00 07:00 15:00 23:00 Intake Total 60 ml 540 ml 360 ml Output Total 600 ml 450 ml 385 ml 800 ml Balance -540 ml 90 ml -25 ml -800 ml Intake Oral 60 ml 540 ml 360 ml IV Total 0 ml Output Urine Total 600 ml 450 ml 385 ml 800 ml Bladder Scan Volume Amount 0 ml # Voids 1 1 # Bowel Movements 1 1 0 Result Diagram: 07/05/17 0535 07/06/17 0540 Objective Remarks Significant dermatitis, candidal GENERAL: This is a well-nourished, well-developed patient, in no apparent distress. CARDIOVASCULAR: Regular rate and rhythm without murmurs, gallops, or rubs. RESPIRATORY: Clear to auscultation. Breath sounds equal bilaterally. No wheezes , rales, or rhonchi. GASTROINTESTINAL: Abdomen soft, non-tender, nondistended. Normal active bowel sounds MUSCULOSKELETAL: Extremities without clubbing, cyanosis, or edema. NEURO: Alert & Oriented x4 to person, place, time, situation. Moves all ext x4 A/P Problem List: (1) GABBI (acute kidney injury) ICD Code: N17.9 - Acute kidney failure, unspecified Plan: Improved, continue to follow, avoid nephrotoxic drugs (2) CKD (chronic kidney disease), stage IV ICD Code: N18.4 - Chronic kidney disease, stage 4 (severe) Plan: Appears to be back at baseline (3) Type 2 diabetes mellitus ICD Code: E11.9 - Type 2 diabetes mellitus without complications Plan: Continue diabetic management (4) UTI (urinary tract infection) ICD Code: N39.0 - Urinary tract infection, site not specified Status: Acute Plan: Will evaluate with ID Staph epidermidis is unlikely pathogen in the urinary tract. Repeat urinalysis. (5) Weakness ICD Code: R53.1 - Weakness Plan: Continue with plans for custodial discharge Discharge Planning We'll discharge to custodial facility pending urine cultures and when bed available Problem Qualifiers (1) UTI (urinary tract infection): Qualified Codes: N39.0 - Urinary tract infection, site not specified; R31.9 - Hematuria, unspecified Evelyn Richardson MD Jul 07, 2017 13:10
[2017-07-07 16:00] VITALS: BP 125/60; PULSE 71; RESP 18; TEMP 98.4; O2SAT 98
--- NOTE | 2017-07-07 16:12 | PD.ID.CON ---
History of Present Illness Service ID Consult Requested By Reason for Consult Evaluation and Mment of Staph epidermidis UTI Primary Care Physician Troy Crowder DO Diagnoses: History of Present Illness is a 71 y/o CM with past medical history of type 2 diabetes, chronic kidney disease, BPH status post TURP several weeks ago, coronary artery disease with history of CABG status post stent one month ago who presents to the ER today from a [facility] complaining of bilateral lower back pain. He was evacuated from a custodial facility to the correction. The patient states that he slept on the floor yesterday and woke up feeling very sore today. He attributes his pain to his kidneys. The patient also is complaining of pain "all over." He underwent a redo TURP several weeks ago. He states that his urination has not really improved since then. He also has had decreased by mouth intake. The patient denies dysuria or hematuria. He has trouble getting his urine flow started and the stream is weak. In the emergency department urinalysis was suspicious for infection and he had a leukocytosis. He also had labs consistent with acute kidney injury. For this reason he was recommended for admission. Abdominal CT scan was negative for acute intra-abdominal findings, specifically no hydronephrosis, bladder was not distended. He did have a 10 mm right kidney stone. Patient also states he has not had a bowel movement in 1 week. He is not very mobile and which on a wheelchair. Patient reports having a metzger for the TURP procedure at [facility] 3 weeks back. Patient also reports fevers chills since coronary stent few weeks back. ID consulted for evaluation and Mment of Staph epidermidis UTI. Rule out endocarditis. Review of Systems Constitutional: COMPLAINS OF: Chills, Night Sweats, DENIES: Diaphoretic episodes, Fatigue, Fever, Weight gain, Weight loss, Dizziness, Change in appetite Endocrine: DENIES: Heat/cold intolerance, Polydipsia, Polyuria, Polyphagia Eyes: DENIES: Blurred vision, Diplopia, Eye inflammation, Eye pain, Vision loss , Photosensitivity, Double Vision Ears, nose, mouth, throat: DENIES: Tinnitus, Hearing loss, Vertigo, Nasal discharge, Oral lesions, Throat pain, Hoarseness, Ear Pain, Running Nose, Epistaxis, Sinus Pain, Toothache, Odynophagia Respiratory: DENIES: Apneas, Cough, Snoring, Wheezing, Hemoptysis, Sputum production, Shortness of breath Cardiovascular: DENIES: Chest pain, Palpitations, Syncope, Dyspnea on Exertion , PND, Lower Extremity Edema, Orthopnea, Claudication Gastrointestinal: DENIES: Abdominal pain, Black stools, Bloody stools, Constipation, Diarrhea, Nausea, Vomiting, Difficulty Swallowing, Anorexia Genitourinary: DENIES: Sexual dysfunction, Urinary frequency, Urinary incontinence, Urgency, Hematuria, Dysuria, Nocturia, Penile Discharge, Testicular Pain, Testicular Swelling Musculoskeletal: DENIES: Joint pain, Muscle aches, Stiffness, Joint Swelling, Back pain, Neck pain Integumentary: DENIES: Abnormal pigmentation, Nail changes, Pruritus, Rash Hematologic/lymphatic: DENIES: Bruising, Lymphadenopathy Immunologic/allergic: DENIES: Eczema, Urticaria Neurologic: DENIES: Abnormal gait, Headache, Localized weakness, Paresthesias, Seizures, Speech Problems, Tremor, Poor Balance Psychiatric: DENIES: Anxiety, Confusion, Mood changes, Depression, Hallucinations, Agitation, Suicidal Ideation, Homicidal Ideation, Delusions Except as stated in HPI: all other systems reviewed are Neg Past Family Social History Allergies: Coded Allergies: ciprofloxacin (Unverified Allergy, Severe, 07/02/17) diatrizoate meglumine (Unverified Allergy, Severe, 07/02/17) gadobenic acid (Unverified Allergy, Severe, 07/02/17) gadodiamide (Unverified Allergy, Severe, 07/02/17) gadoteridol (Unverified Allergy, Severe, 07/02/17) iodixanol (Unverified Allergy, Severe, 07/02/17) iohexol (Unverified Allergy, Severe, 07/02/17) levofloxacin (Unverified Allergy, Severe, 07/02/17) Past Medical History Type 2 diabetes Coronary artery disease status post CABG, status post stent one month ago with Dr. Jenkins BPH status post TURP several weeks ago Cerebrovascular disease with history of stroke Atrial fibrillation Hypertension Hyperlipidemia Gout Anemia of chronic kidney disease History of gastric ulcer COPD Chronic kidney disease stage IV Fibromyalgia Nephrolithiasis Right internal carotid artery occlusion Past Surgical History TURP x 2 most recently 3 weeks back. CABG Coronary stent Urological stent for renal stones in past. Removed. Reported Medications Reported Meds & Active Scripts Active Reported Omeprazole 20 Mg Tab 20 Mg PO BID Lyrica (Pregabalin) 25 Mg Cap 25 Mg PO BID Lopressor (Metoprolol Tartrate) 50 Mg Tab 50 Mg PO BID Ferrous Sulfate 325 Mg (65 Mg Iron) Tablet 325 Mg PO BIDPC Eliquis (Apixaban) 5 Mg Tab 5 Mg PO BID Stress B/Zinc (B-Complex W/ C & E + Zn) 1 Tab 1 Tab PO DAILY Docusate Sodium 100 Mg Tab 100 Mg PO BID Tamsulosin (Tamsulosin HCl) 0.4 Mg Cap 0.4 Mg PO HS Spiriva Handihaler (Tiotropium Inh) 18 Mcg Cap 18 Mcg INH DAILY 1 capsule = 18 mcg Pioglitazone (Pioglitazone HCl) 45 Mg Tab 45 Mg PO DAILY Magnesium Oxide 400 Mg Tab 400 Mg PO DAILY Levothyroxine (Levothyroxine Sodium) 200 Mcg Tab 200 Mcg PO DAILY Lantus Solostar Pen Inj (Insulin Glargine) 300 Unit/3 Ml Pen 12 Units SQ HS NEB Isosorbide Mononitrate ER (Isosorbide Mononitrate) 60 Mg Tab 60 Mg PO DAILY Furosemide 40 Mg Tab 40 Mg PO DAILY Calcium Carbonate (Antacid) 500 Mg Chew 500 Mg CHEW DAILY PRN Atorvastatin (Atorvastatin Calcium) 40 Mg Tab 40 Mg PO HS Calcitriol 0.25 Mcg Cap 0.25 Mcg PO DAILY Active Ordered Medications Current Medications Medications (Trade) Dose Ordered Sig/Domingo Route Start Time Stop Time Status Last Admin (Lipitor) 40 mg HS PO 07/02/17 21:00 07/06/17 21:47 (Rocaltrol) 0.25 mcg DAILY PO 07/03/17 09:00 07/07/17 08:15 (Tums Chew) 500 mg DAILY PRN CHEW 07/02/17 19:00 07/03/17 09:10 (Ferrous Sulfate) 325 mg BIDPC PO 07/03/17 09:00 07/07/17 08:14 (Imdur) 60 mg DAILY PO 07/03/17 09:00 07/07/17 08:14 (Synthroid) 200 mcg DAILY@0600 PO 07/03/17 06:00 07/07/17 06:17 (Mag-Ox) 400 mg DAILY PO 07/03/17 09:00 07/07/17 08:14 (Lopressor) 50 mg BID PO 07/02/17 21:00 07/07/17 08:14 (Lyrica) 25 mg BID PO 07/02/17 21:00 07/07/17 08:14 (Spiriva Inh) 18 mcg DAILY INH 07/03/17 09:00 07/07/17 08:15 (Levemir Inj) 12 units HS SQ 07/02/17 21:00 07/05/17 20:40 (D50w (Vial) Inj) 50 ml UNSCH PRN IV 07/02/17 19:00 (Glucagon Inj) 1 mg UNSCH PRN OTHER 07/02/17 19:00 (NovoLOG SUPPLEMENTAL SCALE) 1 ACHS SLIDING SCALE SQ 07/02/17 21:00 07/07/17 12:13 (Eliquis) 2.5 mg BID PO 07/02/17 21:00 07/07/17 08:14 (NS Flush) 2 ml UNSCH PRN IV FLUSH 07/02/17 19:00 (NS Flush) 2 ml BID IV FLUSH 07/02/17 21:00 07/07/17 08:15 (Tylenol) 650 mg Q4H PRN PO 07/02/17 19:00 07/04/17 09:13 (Zofran Inj) 4 mg Q6H PRN IVP 07/02/17 19:00 (Narcan Inj) 0.4 mg UNSCH PRN IV 07/02/17 19:00 (Nicolle-Colace) 1 tab BID PO 07/02/17 21:00 07/07/17 08:14 (Milk Of Magnesia Liq) 30 ml Q12H PRN PO 07/02/17 19:00 07/03/17 09:09 (Senokot) 17.2 mg Q12H PRN PO 07/02/17 19:00 (Dulcolax Supp) 10 mg DAILY PRN RECTAL 07/02/17 19:00 (Lactulose Liq) 30 ml DAILY PRN PO 07/02/17 19:00 07/03/17 09:09 (Protonix) 20 mg BID PO 07/03/17 21:47 07/07/17 08:15 (Flomax) 0.4 mg HS PO 07/03/17 21:47 07/06/17 21:47 ([place] 5-325 Mg) 1 tab Q6H PRN PO 07/04/17 12:00 07/07/17 08:15 (Mycostatin Powder) 1 applic Q12HR TOPICAL 07/04/17 15:00 07/07/17 08:16 (Zyvox) 600 mg Q12HR PO 07/07/17 21:00 Family History Positive for diabetes Social History The patient states that he stopped drinking alcohol 30 years ago and stopped smoking tobacco 30 years ago. Physical Exam Vital Signs Vital Signs Date Time Temp Pulse Resp B/P (MAP) Pulse Ox O2 Delivery O2 Flow Rate FiO2 07/07/17 11:00 96.6 66 20 121/57 (78) 98 07/07/17 09:30 18 07/07/17 09:30 18 07/07/17 08:00 97.4 79 19 154/84 (107) 98 07/07/17 00:00 97.3 72 20 137/74 (95) 97 07/06/17 20:00 97.9 70 20 133/64 (87) 97 Physical Exam GENERAL: Obese, well-developed patient, in no apparent distress. SKIN: No rashes, ecchymoses or lesions. Cool and dry. HEAD: Atraumatic. Normocephalic. No temporal or scalp tenderness. EYES: Pupils equal round and reactive. Extraocular motions intact. No scleral icterus. No injection or drainage. ENT: Nose without bleeding, purulent drainage or septal hematoma. Throat without erythema, tonsillar hypertrophy or exudate. Uvula midline. Airway patent. NECK: Trachea midline. Supple, nontender, no meningeal signs. CARDIOVASCULAR: Regular rate and rhythm without murmurs, gallops, or rubs. RESPIRATORY: Clear to auscultation. Breath sounds equal bilaterally. No wheezes , rales, or rhonchi. GASTROINTESTINAL: Abdomen soft, non-tender, nondistended. MUSCULOSKELETAL: Extremities without clubbing, cyanosis, or edema. No joint tenderness, effusion, or edema noted. No calf tenderness. Negative Homans sign bilaterally. NEUROLOGICAL: Awake and alert. Grossly normal exam Psych cooperative IV line sites with no e.o infection. Laboratory Laboratory Tests Test 07/07/17 13:32 C-Reactive Protein 6.90 Date/Time Source Procedure Growth Status 07/07/17 13:32 Blood Peripheral Aerobic Blood Culture Pending Received 07/07/17 13:32 Blood Peripheral Anaerobic Blood Culture Pending Received 07/06/17 15:30 Urine Catheterized Urine Urine Culture - Preliminary NO GROWTH IN 24 HOURS. Resulted Result Diagram: 07/05/17 0535 07/06/17 0540 Imaging Last Impressions Abdomen/Pelvis CT 07/02/17 0000 Signed Impressions: Service Date/Time: Sunday, July 02, 2017 16:45 - CONCLUSION: 9-10 mm right kidney stone. No hydronephrosis. Otherwise benign focally unremarkable CT appearance of the abdomen and pelvis. Ashvin Pereira MD Assessment and Plan Assessment and Plan Staph epidermidis UTI in a man. H/o TURP 3 weeks back H/o metzger cath 3 weeks back H/o Cardiac cath and stent few weeks back. rule out endocarditis. H/o chills and night sweats. H/o renal stones and renal stent in past. Acute on chronic renal failure. Recs Blood cultures x 2 Straight cath UA 2D ECHO r/o endocarditis. Follow cultures Follow clinically. If blood cultures and 2D ECHO negative will discharge on oral zyvox next Monday or Monday (BCX negative at 72 hrs). Needs Urology follow up. Ruby Bojorquez. Will follow prn over the weekend. If any change in condition covering for me. I will see patient next on Monday. Monse Diaz MD Jul 07, 2017 16:12
[2017-07-07 20:06] VITALS: BP 153/64; PULSE 82; RESP 22; TEMP 97.9; O2SAT 99
[2017-07-07] MEDS: INSULIN DETEMIR 100 UNITS/ML VIAL SQ SCH (21:00)
[2017-07-07] MEDS: LINEZOLID 600 MG TAB PO SCH (21:00)
[2017-07-07] MEDS: TAMSULOSIN HCL 0.4 MG CAP PO SCH (21:07)
[2017-07-07] MEDS: ATORVASTATIN 40 MG TAB PO SCH (21:08)
[2017-07-08 01:47] VITALS: BP 185/71; PULSE 72; RESP 20; TEMP 97.9; O2SAT 96
[2017-07-08] MEDS: INSULIN ASPART SUPPLEMENTAL SCALE SQ SCH ×5 (08:00→21:00)
[2017-07-08 08:33] VITALS: BP 181/72; PULSE 76; RESP 18; TEMP 96.4; O2SAT 99
[2017-07-08] MEDS: METOPROLOL TARTRATE 50 MG TAB PO SCH (08:50)
[2017-07-08] MEDS: PREGABALIN 25 MG CAP PO SCH (08:50)
[2017-07-08] MEDS: CALCITRIOL 0.25 MCG CAP PO SCH (08:50)
[2017-07-08] MEDS: DOCUSATE SODIUM 50 MG/SENNA 8.6 MG TAB PO SCH ×2 (08:50→21:40)
[2017-07-08] MEDS: MAGNESIUM OXIDE 400 MG TAB PO SCH (08:51)
[2017-07-08] MEDS: APIXABAN 2.5 MG TABLET PO SCH (08:51)
[2017-07-08] MEDS: PANTOPRAZOLE SOD 20 MG DELAYED RELEASE TAB PO SCH ×2 (08:52→21:40)
[2017-07-08] MEDS: FERROUS SULFATE 325 MG (65 MG ELEMENTAL IRON) TAB PO SCH ×2 (08:52→16:42)
[2017-07-08] MEDS: LINEZOLID 600 MG TAB PO SCH ×2 (08:52→21:40)
[2017-07-08] MEDS: SODIUM CHLORIDE 0.9% FLUSH 10 ML FLUSH IV FLUSH SCH ×2 (08:53→21:00)
[2017-07-08] MEDS: TIOTROPIUM BROMIDE 18 MCG INH INH SCH (08:53)
[2017-07-08] MEDS: NYSTATIN 100,000 U/GM PWD 15 GM BTL TOPICAL SCH ×2 (09:00→21:44)
[2017-07-08] MEDS: ISOSORBIDE MONONITRATE 60 MG TAB PO SCH (09:00)
[2017-07-08] MEDS: ACETAMINOPHEN/HYDROcodone 325 MG/5 MG TAB PO PRN ×2 (09:03→16:45)
--- NOTE | 2017-07-08 12:38 | ECHRPT ---
Indication: SEPSIS ENDOCARDITIS CONCLUSIONS Hypokinetic basal inferolateral wall motion. Hypokinetic mid-inferolateral wall motion. Mildly dilated left ventricle. The left ventricular systolic function is moderately reduced with an estimated ejection fraction in the range of 40-45%. Trace mitral valve regurgitation. Mitral annular calcification is present. The aortic valve is not well visualized. Aortic valve sclerosis is present. Mild aortic valve regurgitation. There is trace tricuspid valve regurgitation. The estimated pulmonary arterial pressure is 31mmHg. The pulmonary valve is not well visualized. BP: / HR: Rhythm: MEASUREMENTS (Male / Female) Normal Values Technical Quality:Technically difficult study 2D ECHO LV Diastolic Diameter PLAX 6.1 cm 4.2 - 5.9 / 3.9 - 5.3 cm LV Systolic Diameter PLAX 5.0 cm IVS Diastolic Thickness 1.0 cm 0.6 - 1.0 / 0.6 - 0.9 cm LVPW Diastolic Thickness 1.0 cm 0.6 - 1.0 / 0.6 - 0.9 cm LV Relative Wall Thickness 0.3 M-MODE Aortic Root Diameter MM 3.4 cm AV Cusp Separation MM 1.8 cm DOPPLER AV Peak Velocity 227.0 cm/s AV Peak Gradient 20.6 mmHg AV Mean Gradient 10.0 mmHg AV Velocity Time Integral 63.8 cm AI Peak Velocity 324.0 cm/s AI Peak Gradient 42.0 mmHg AI Pressure Half Time 782.0 ms LVOT Peak Velocity 122.0 cm/s LVOT Peak Gradient 6.0 mmHg LVOT Velocity Time Integral 35.4 cm MR Peak Velocity 436.0 cm/s MR Peak Gradient 76.0 mmHg Mitral E Point Velocity 88.8 cm/s Mitral A Point Velocity 84.5 cm/s Mitral E to A Ratio 1.1 TR Peak Velocity 228.0 cm/s TR Peak Gradient 20.8 mmHg FINDINGS LEFT VENTRICLE Hypokinetic basal inferolateral wall motion. Hypokinetic mid-inferolateral wall motion. Mildly dilated left ventricle. The left ventricular systolic function is moderately reduced with an estimated ejection fraction in the range of 40-45%. RIGHT VENTRICLE Normal right ventricular size and systolic function. LEFT ATRIUM The left atrial size is normal. RIGHT ATRIUM The right atrial size is normal. ATRIAL SEPTUM Normal atrial septal thickness without atrial level shunting by limited color doppler interrogation. AORTA The aortic root and proximal ascending aorta are normal in size on limited imaging. MITRAL VALVE Trace mitral valve regurgitation. Mitral annular calcification is present. AORTIC VALVE The aortic valve is not well visualized. Aortic valve sclerosis is present. Mild aortic valve regurgitation. TRICUSPID VALVE There is trace tricuspid valve regurgitation. The estimated pulmonary arterial pressure is 31mmHg. PULMONARY VALVE The pulmonary valve is not well visualized. VESSELS The inferior vena cava is normal in size. PERICARDIUM No pericardial effusion. Mp Way MD (Electronically Signed) Final Date:08 July 2017 12:37
[2017-07-08 13:30] VITALS: BP 167/75; PULSE 70; RESP 15; TEMP 97.4; O2SAT 100
[2017-07-08] MEDS: NYSTATIN 100,000 UNIT/GM CREAM 15 GM TOPICAL SCH ×2 (14:30→21:39)
--- NOTE | 2017-07-08 14:59 | HHI.FF ---
Face to Face Verification Diagnosis: (1) CKD (chronic kidney disease), stage IV (2) Type 2 diabetes mellitus (3) GABBI (acute kidney injury) (4) Generalized pain (5) Coronary artery disease Physical Therapy Order: Evaluate and Treat Home Health Nursing Order: Medical education Diabetic education Medication education-adverse effect Nursing assessment with vital signs I have seen patient Jonel Monteiro on 07/08/17. My clinical findings support the need for the requested home health care services because: Deconditioned w/ increased weakness Need for psychosocial assistance I certify that my clinical findings support that this patient is homebound because: Unsteady gait/balance Need for psychosocial assistance Patience Pacheco MD Jul 08, 2017 14:59
[2017-07-08] MEDS ORDERED: METO-309 PO (15:02)
[2017-07-08] MEDS ORDERED: FURO1TAB62 PO (15:02)
[2017-07-08] MEDS ORDERED: PREG25 PO (15:02)
--- NOTE | 2017-07-08 15:11 | HHI.PR ---
Subjective Remarks Patient complains that he used to be on higher doses of Lyrica and metoprolol. Patient states he does not plan on going back to his [place] [facility] facility. He complains of painful rash on his buttocks. The patient states that he had been treated with permethrin cream from a population geneticist several weeks ago for generalized rash that has now resolved. Patient complains of pain "all over." Objective Vitals Vital Signs Date Time Temp Pulse Resp B/P (MAP) Pulse Ox O2 Delivery O2 Flow Rate FiO2 07/08/17 13:30 97.4 70 15 167/75 (105) 100 07/08/17 10:03 20 07/08/17 10:03 20 07/08/17 08:33 96.4 76 18 181/72 (108) 99 07/08/17 01:47 97.9 72 20 185/71 (109) 96 07/07/17 20:06 97.9 82 22 153/64 (93) 99 07/07/17 16:00 98.4 71 18 125/60 (81) 98 I/O 07/07/17 07/07/17 07/07/17 07/08/17 07/08/17 07/08/17 07:00 15:00 23:00 07:00 15:00 23:00 Intake Total 960 ml Output Total 1000 ml 750 ml Balance -40 ml -750 ml Intake Oral 960 ml Output Urine Total 1000 ml 750 ml # Voids 1 1 # Bowel Movements 0 Result Diagram: 07/05/17 0535 07/06/17 0540 Objective Remarks GENERAL: Well-nourished, well-developed obese male patient. SKIN: Warm and dry. Patient has erythematous rash over the buttocks and perineum and scrotum. HEAD: Normocephalic. EYES: No scleral icterus. No injection or drainage. NECK: Supple, trachea midline. No JVD or lymphadenopathy. CARDIOVASCULAR: Regular rate and rhythm without murmurs, gallops, or rubs. RESPIRATORY: Breath sounds equal bilaterally. No accessory muscle use. GASTROINTESTINAL: Abdomen soft, non-tender, nondistended. EXTREMITIES: 1+ pedal edema NEUROLOGICAL: Awake, alert, and oriented x 3. Non-focal. A/P Problem List: (1) GABBI (acute kidney injury) ICD Code: N17.9 - Acute kidney failure, unspecified (2) CKD (chronic kidney disease), stage IV ICD Code: N18.4 - Chronic kidney disease, stage 4 (severe) (3) Type 2 diabetes mellitus ICD Code: E11.9 - Type 2 diabetes mellitus without complications (4) UTI (urinary tract infection) ICD Code: N39.0 - Urinary tract infection, site not specified Status: Acute (5) Weakness ICD Code: R53.1 - Weakness (6) Chronic systolic CHF (congestive heart failure) ICD Code: I50.22 - Chronic systolic (congestive) heart failure (7) Coronary artery disease ICD Code: I25.10 - Atherosclerotic heart disease of [place] coronary artery without angina pectoris Assessment and Plan -Acute kidney injury superimposed on chronic kidney disease stage IV -improved after treatment with IV fluids. likely etiology is decreased by mouth intake versus secondary to his Lasix. Abdominal CT scan shows a nondistended bladder. He did undergo a TURP several weeks ago. Will repeat BMP in the morning and resume smaller dose of Lasix for the CHF and pedal edema. -Abnormal UA -initial urine culture grew staph epidermidis, repeat urine culture no growth at 48 hours. -Enterococcus faecalis bacteremia in one blood culture. Will repeat blood culture. 2-D echo without vegetation. Continue Zyvox. Infectious disease following. -Type 2 diabetes -continue Lantus 12 units subcutaneous at bedtime, and sliding scale insulin. -Coronary artery disease status post CABG, status post stent one month ago with Dr. Jenkins as per the patient - continue Eliquis, metoprolol, statin -Chronic systolic CHF - left ventricular ejection fraction 45%. Start Lasix at lower dose than previous 20 mg daily. Continue metoprolol increased to previous dose of 100 mg twice a day. Start SHANIA hose for the pedal edema. -BPH status post TURP several weeks ago - continue Flomax. -Cerebrovascular disease with history of stroke - continue Eliquis, statin. -Reported history of paroxysmal Atrial fibrillation - continue Eliquis, metoprolol. -COPD-use DuoNeb's when necessary. -Fibromyalgia - continue Lyrica - increase to 75 mg by mouth twice a day. -Anemia of chronic kidney disease - follow CBC, continue iron supplementation. -History of gastric ulcer. Continue PPI. -Mary Jane rash perineum. Start nystatin cream. -DVT prophylaxis with Eliquis. Discharge Planning Patient declines to go to [place] [facility] facility. Wants to be discharged home with home health care. Problem Qualifiers (1) UTI (urinary tract infection): Qualified Codes: N39.0 - Urinary tract infection, site not specified; R31.9 - Hematuria, unspecified Patience Pacheco MD Jul 08, 2017 15:11
[2017-07-08 17:32] VITALS: BP 137/55; PULSE 79; RESP 16; TEMP 97.6; O2SAT 98
[2017-07-08 20:38] VITALS: BP 114/85; PULSE 69; RESP 20; TEMP 98; O2SAT 97
[2017-07-08] MEDS: INSULIN DETEMIR 100 UNITS/ML VIAL SQ SCH (21:00)
[2017-07-08] MEDS: METOPROLOL TARTRATE 100 MG TAB PO SCH (21:39)
[2017-07-08] MEDS: PREGABALIN 75 MG CAP PO SCH (21:40)
[2017-07-08] MEDS: APIXABAN 5 MG TABLET PO SCH (21:40)
[2017-07-08] MEDS: ATORVASTATIN 40 MG TAB PO SCH (21:40)
[2017-07-08] MEDS: TAMSULOSIN HCL 0.4 MG CAP PO SCH (21:40)
[2017-07-09 00:03] VITALS: BP 172/68; PULSE 72; RESP 18; TEMP 97.6; O2SAT 96
[2017-07-09] MEDS: ACETAMINOPHEN/HYDROcodone 325 MG/5 MG TAB PO PRN ×3 (06:05→22:49)
[2017-07-09] MEDS: LEVOTHYROXINE SODIUM 200 MCG TAB PO SCH (06:05)
[2017-07-09 07:32] LABS: POTASSIUM 4.2 MEQ/L (3.5-5.1)
[2017-07-09 07:39] LABS: BICARBONATE 24.9 MEQ/L (21.0-32.0)
[2017-07-09] MEDS: PREGABALIN 75 MG CAP PO SCH ×2 (07:43→22:48)
[2017-07-09] MEDS: LINEZOLID 600 MG TAB PO SCH ×2 (07:43→22:49)
[2017-07-09] MEDS: APIXABAN 5 MG TABLET PO SCH ×2 (07:43→22:49)
[2017-07-09] MEDS: DOCUSATE SODIUM 50 MG/SENNA 8.6 MG TAB PO SCH ×2 (07:43→21:00)
[2017-07-09] MEDS: FERROUS SULFATE 325 MG (65 MG ELEMENTAL IRON) TAB PO SCH ×2 (07:44→17:26)
[2017-07-09] MEDS: MAGNESIUM OXIDE 400 MG TAB PO SCH (07:44)
[2017-07-09] MEDS: METOPROLOL TARTRATE 100 MG TAB PO SCH ×2 (07:44→22:49)
[2017-07-09] MEDS: CALCITRIOL 0.25 MCG CAP PO SCH (07:44)
[2017-07-09] MEDS: PANTOPRAZOLE SOD 20 MG DELAYED RELEASE TAB PO SCH ×2 (07:45→22:50)
[2017-07-09] MEDS: TIOTROPIUM BROMIDE 18 MCG INH INH SCH (07:47)
[2017-07-09] MEDS: INSULIN ASPART SUPPLEMENTAL SCALE SQ SCH ×3 (08:00→21:00)
[2017-07-09] MEDS: FUROSEMIDE 20 MG TAB PO SCH (08:05)
[2017-07-09] MEDS: NYSTATIN 100,000 UNIT/GM CREAM 15 GM TOPICAL SCH ×2 (08:06→22:50)
[2017-07-09] MEDS: NYSTATIN 100,000 U/GM PWD 15 GM BTL TOPICAL SCH ×2 (08:06→21:00)
[2017-07-09] MEDS: SODIUM CHLORIDE 0.9% FLUSH 10 ML FLUSH IV FLUSH SCH ×2 (09:00→21:00)
[2017-07-09] MEDS: ISOSORBIDE MONONITRATE 60 MG TAB PO SCH (09:00)
[2017-07-09 09:40] VITALS: BP 125/58; PULSE 54; RESP 16; TEMP 96.8; O2SAT 95
[2017-07-09 12:00] VITALS: BP 136/82; PULSE 91; RESP 18; TEMP 100.1; O2SAT 96
--- NOTE | 2017-07-09 12:37 | HHI.PR ---
Subjective Remarks Patient complains of feeling tired today. No fevers or chills. He states his buttocks still feels overall. Objective Vitals Vital Signs Date Time Temp Pulse Resp B/P (MAP) Pulse Ox O2 Delivery O2 Flow Rate FiO2 07/09/17 09:40 96.8 54 16 125/58 (80) 95 07/09/17 08:43 20 07/09/17 07:05 20 07/09/17 00:03 97.6 72 18 172/68 (102) 96 07/08/17 20:38 98.0 69 20 114/85 (95) 97 07/08/17 17:32 97.6 79 16 137/55 (82) 98 07/08/17 13:30 97.4 70 15 167/75 (105) 100 I/O 07/08/17 07/08/17 07/08/17 07/09/17 07/09/17 07/09/17 07:00 15:00 23:00 07:00 15:00 23:00 Intake Total 800 ml Output Total 480 ml 300 ml Balance 320 ml -300 ml Intake Oral 800 ml Output Urine Total 480 ml 300 ml # Voids 1 1 Result Diagram: 07/05/17 0535 07/09/17 0604 Objective Remarks GENERAL: Well-nourished, well-developed obese male patient. SKIN: Warm and dry. Patient has erythematous rash over the buttocks and perineum and scrotum. HEAD: Normocephalic. EYES: No scleral icterus. No injection or drainage. NECK: Supple, trachea midline. No JVD or lymphadenopathy. CARDIOVASCULAR: Regular rate and rhythm without murmurs, gallops, or rubs. RESPIRATORY: Breath sounds equal bilaterally. No accessory muscle use. GASTROINTESTINAL: Abdomen soft, non-tender, nondistended. EXTREMITIES: 1+ pedal edema NEUROLOGICAL: Awake, alert, and oriented x 3. Non-focal. A/P Problem List: (1) GABBI (acute kidney injury) ICD Code: N17.9 - Acute kidney failure, unspecified (2) CKD (chronic kidney disease), stage IV ICD Code: N18.4 - Chronic kidney disease, stage 4 (severe) (3) Type 2 diabetes mellitus ICD Code: E11.9 - Type 2 diabetes mellitus without complications (4) UTI (urinary tract infection) ICD Code: N39.0 - Urinary tract infection, site not specified Status: Acute (5) Weakness ICD Code: R53.1 - Weakness (6) Chronic systolic CHF (congestive heart failure) ICD Code: I50.22 - Chronic systolic (congestive) heart failure (7) Coronary artery disease ICD Code: I25.10 - Atherosclerotic heart disease of [place] coronary artery without angina pectoris Assessment and Plan -Acute kidney injury superimposed on chronic kidney disease stage IV -improved after treatment with IV fluids. likely etiology is decreased by mouth intake versus secondary to his Lasix. Abdominal CT scan shows a nondistended bladder. He did undergo a TURP several weeks ago. Will repeat BMP in the morning and resume smaller dose of Lasix for the CHF and pedal edema. -Abnormal UA -initial urine culture grew staph epidermidis, repeat urine culture no growth at 48 hours. -Enterococcus faecalis bacteremia in one blood culture. Repeat low culture is pending. 2-D echo without vegetation. Continue Zyvox. Infectious disease following. -Type 2 diabetes -continue Lantus 12 units subcutaneous at bedtime, and sliding scale insulin. -Coronary artery disease status post CABG, status post stent one month ago with Dr. Jenkins as per the patient - continue Eliquis, metoprolol, statin -Chronic systolic CHF - left ventricular ejection fraction 45%. Start Lasix at lower dose than previous 20 mg daily. Continue metoprolol. Start SHANIA hose for the pedal edema. -BPH status post TURP several weeks ago - continue Flomax. -Cerebrovascular disease with history of stroke - continue Eliquis, statin. -Reported history of paroxysmal Atrial fibrillation - continue Eliquis, metoprolol. -COPD-use DuoNeb's when necessary. -Fibromyalgia - continue Lyrica - increase to 75 mg by mouth twice a day. -Anemia of chronic kidney disease - follow CBC, continue iron supplementation. -History of gastric ulcer. Continue PPI. -Mary Jane rash perineum. Start nystatin cream. -DVT prophylaxis with Eliquis. Discharge Planning Patient declines to go to long term facility. Wants to be discharged home with home health care. Problem Qualifiers (1) UTI (urinary tract infection): Qualified Codes: N39.0 - Urinary tract infection, site not specified; R31.9 - Hematuria, unspecified Patience Pacheco MD Jul 09, 2017 12:37
[2017-07-09 17:14] VITALS: BP 184/72; PULSE 63; RESP 15; TEMP 97.7; O2SAT 100
--- NOTE | 2017-07-09 19:41 | HHI.PR ---
Addendum to Inpatient Note Addendum Reason: Additional Documentation Additional Information BCX positive for E.faecalis Repeat BCX negative so far. Patient has low grade fevers 100.1 Also complained of chills since stent placement. Start Ampicillin IV endocarditis dose. Continue Zyvox oral Will follow on Monday. Monse Diaz MD Jul 09, 2017 19:41
[2017-07-09] MEDS: AMPICILLIN INJ 2,000 MG in SODIUM CHLORIDE 0.9% INJ 100 ML IV SCH ×2 (20:00→22:51)
[2017-07-09 21:21] VITALS: BP 117/56; PULSE 59; RESP 16; TEMP 97.8; O2SAT 97
[2017-07-09] MEDS: ATORVASTATIN 40 MG TAB PO SCH (22:48)
[2017-07-09] MEDS: TAMSULOSIN HCL 0.4 MG CAP PO SCH (22:49)
[2017-07-09] MEDS: INSULIN DETEMIR 100 UNITS/ML VIAL SQ SCH (22:51)
[2017-07-10] MEDS: AMPICILLIN INJ 2,000 MG in SODIUM CHLORIDE 0.9% INJ 100 ML IV SCH ×5 (00:14→20:14)
[2017-07-10 00:39] VITALS: BP 125/63; PULSE 63; RESP 18; TEMP 98; O2SAT 97
[2017-07-10 00:59] VITALS: BP 159/66
[2017-07-10] MEDS: NITROGLYCERIN 0.3 MG SL 100 TABS/BTL SL PRN (01:10)
[2017-07-10] MEDS: LEVOTHYROXINE SODIUM 200 MCG TAB PO SCH (05:59)
[2017-07-10 07:01] LABS: AUTOMATED NEUTROPHIL # 4.9 TH/MM3 (1.8-7.7); BASOPHIL % 0.2 % (0.0-2.0); EOSINOPHIL # 0.8 TH/MM3 (0-0.4); EOSINOPHIL % 9.4 % (0.0-4.0); HEMATOCRIT 28.4 % (39.0-51.0); HEMO FLAGS DIFF FINAL; LYMPH % 23.4 % (9.0-44.0); LYMPHOCYTE # 2.1 TH/MM3 (1.0-4.8); MEAN CELL VOLUME 88.6 FL (80.0-100.0); MEAN CORPUSCULAR HEMOGLOBIN 29.2 PG (27.0-34.0); MEAN CORPUSCULAR HGB CONC 32.9 % (32.0-36.0); MONO % 11.1 % (0.0-8.0); NEUT % 55.9 % (16.0-70.0); PLATELET COUNT 548 TH/MM3 (150-450); RED BLOOD COUNT 3.21 MIL/MM3 (4.50-5.90); RED CELL DISTRIBUTION WIDTH 12.1 % (11.6-17.2); WHITE BLOOD COUNT 8.8 TH/MM3 (4.0-11.0)
[2017-07-10 07:07] LABS: POTASSIUM 3.9 MEQ/L (3.5-5.1)
[2017-07-10 07:12] LABS: BICARBONATE 26.5 MEQ/L (21.0-32.0)
[2017-07-10 08:00] VITALS: BP 180/90; PULSE 68; RESP 16; TEMP 96.5; O2SAT 99
[2017-07-10] MEDS: INSULIN ASPART SUPPLEMENTAL SCALE SQ SCH ×4 (08:00→20:15)
[2017-07-10] MEDS: SODIUM CHLORIDE 0.9% FLUSH 10 ML FLUSH IV FLUSH SCH ×2 (08:37→20:15)
[2017-07-10] MEDS: APIXABAN 5 MG TABLET PO SCH ×2 (08:50→20:13)
[2017-07-10] MEDS: CALCITRIOL 0.25 MCG CAP PO SCH (08:51)
[2017-07-10] MEDS: MAGNESIUM OXIDE 400 MG TAB PO SCH (08:51)
[2017-07-10] MEDS: LINEZOLID 600 MG TAB PO SCH ×2 (08:51→20:13)
[2017-07-10] MEDS: METOPROLOL TARTRATE 100 MG TAB PO SCH ×2 (08:51→20:13)
[2017-07-10] MEDS: FUROSEMIDE 20 MG TAB PO SCH (08:51)
[2017-07-10] MEDS: DOCUSATE SODIUM 50 MG/SENNA 8.6 MG TAB PO SCH ×2 (08:51→20:15)
[2017-07-10] MEDS: PANTOPRAZOLE SOD 20 MG DELAYED RELEASE TAB PO SCH ×2 (08:51→20:13)
[2017-07-10] MEDS: FERROUS SULFATE 325 MG (65 MG ELEMENTAL IRON) TAB PO SCH ×2 (08:51→17:12)
[2017-07-10] MEDS: PREGABALIN 75 MG CAP PO SCH ×2 (08:51→20:13)
[2017-07-10] MEDS: TIOTROPIUM BROMIDE 18 MCG INH INH SCH (08:53)
[2017-07-10] MEDS: NYSTATIN 100,000 UNIT/GM CREAM 15 GM TOPICAL SCH ×2 (08:54→20:16)
[2017-07-10] MEDS: ISOSORBIDE MONONITRATE 60 MG TAB PO SCH (08:57)
[2017-07-10] MEDS: NYSTATIN 100,000 U/GM PWD 15 GM BTL TOPICAL SCH ×2 (08:58→20:16)
--- NOTE | 2017-07-10 10:22 | HHI.IDPN ---
Subjective Subjective Remarks is a 71 y/o CM with past medical history of type 2 diabetes, chronic kidney disease, BPH status post TURP several weeks ago, coronary artery disease with history of CABG status post stent one month ago who presents to the ER today from a [facility] complaining of bilateral lower back pain. He was evacuated from a care home facility to the retirement. The patient states that he slept on the floor yesterday and woke up feeling very sore today. He attributes his pain to his kidneys. The patient also is complaining of pain "all over." He underwent a redo TURP several weeks ago. He states that his urination has not really improved since then. He also has had decreased by mouth intake. The patient denies dysuria or hematuria. He has trouble getting his urine flow started and the stream is weak. In the emergency department urinalysis was suspicious for infection and he had a leukocytosis. He also had labs consistent with acute kidney injury. For this reason he was recommended for admission. Abdominal CT scan was negative for acute intra-abdominal findings, specifically no hydronephrosis, bladder was not distended. He did have a 10 mm right kidney stone. Patient also states he has not had a bowel movement in 1 week. He is not very mobile and which on a wheelchair. Patient reports having a metzger for the TURP procedure at [facility] 3 weeks back. Patient also reports fevers chills since coronary stent few weeks back. ID consulted for evaluation and Mment of Staph epidermidis UTI. Rule out endocarditis. Overnight events reviewed No fevers No rash No diarrhea in chart. Patient reports loose BMs has been on stool softener. Sitting in a chair No chills or fevers. Antibiotics Ampicillin IV Zyvox oral Lines Line sites with no e.o infection. Past Medical History reviewed Allergies: Coded Allergies: ciprofloxacin (Unverified Allergy, Severe, 07/02/17) diatrizoate meglumine (Unverified Allergy, Severe, 07/02/17) gadobenic acid (Unverified Allergy, Severe, 07/02/17) gadodiamide (Unverified Allergy, Severe, 07/02/17) gadoteridol (Unverified Allergy, Severe, 07/02/17) iodixanol (Unverified Allergy, Severe, 07/02/17) iohexol (Unverified Allergy, Severe, 07/02/17) levofloxacin (Unverified Allergy, Severe, 07/02/17) Objective . Vital Signs Date Time Temp Pulse Resp B/P (MAP) Pulse Ox O2 Delivery O2 Flow Rate FiO2 07/10/17 08:00 96.5 68 16 180/90 (120) 99 07/10/17 04:23 07/10/17 00:59 159/66 (97) 07/10/17 00:39 98.0 63 18 125/63 (83) 97 07/09/17 21:21 97.8 59 16 117/56 (76) 97 07/09/17 17:14 97.7 63 15 184/72 (109) 100 07/09/17 17:05 20 07/09/17 12:00 100.1 91 18 136/82 (100) 96 . Laboratory Tests Test 07/10/17 05:45 White Blood Count 8.8 TH/MM3 Red Blood Count 3.21 MIL/MM3 Hemoglobin 9.4 GM/DL Hematocrit 28.4 % Mean Corpuscular Volume 88.6 FL Mean Corpuscular Hemoglobin 29.2 PG Mean Corpuscular Hemoglobin Concent 32.9 % Red Cell Distribution Width 12.1 % Platelet Count 548 TH/MM3 Mean Platelet Volume 7.4 FL Neutrophils (%) (Auto) 55.9 % Lymphocytes (%) (Auto) 23.4 % Monocytes (%) (Auto) 11.1 % Eosinophils (%) (Auto) 9.4 % Basophils (%) (Auto) 0.2 % Neutrophils # (Auto) 4.9 TH/MM3 Lymphocytes # (Auto) 2.1 TH/MM3 Monocytes # (Auto) 1.0 TH/MM3 Eosinophils # (Auto) 0.8 TH/MM3 Basophils # (Auto) 0.0 TH/MM3 CBC Comment DIFF FINAL Differential Comment Laboratory Tests Test 07/09/17 06:04 07/10/17 05:45 Blood Urea Nitrogen 32 MG/DL 40 MG/DL Creatinine 1.80 MG/DL 2.30 MG/DL Random Glucose 135 MG/DL 134 MG/DL Calcium Level 9.1 MG/DL 8.4 MG/DL Sodium Level 137 MEQ/L 137 MEQ/L Potassium Level 4.2 MEQ/L 3.9 MEQ/L Chloride Level 102 MEQ/L 103 MEQ/L Carbon Dioxide Level 24.9 MEQ/L 26.5 MEQ/L Anion Gap 10 MEQ/L 8 MEQ/L Estimat Glomerular Filtration Rate 37 ML/MIN 28 ML/MIN Microbiology Date/Time Source Procedure Growth Status 07/08/17 22:00 Blood Peripheral Aerobic Blood Culture - Preliminary NO GROWTH IN 1 DAY Resulted 07/08/17 22:00 Blood Peripheral Anaerobic Blood Culture - Preliminary NO GROWTH IN 1 DAY Resulted 07/08/17 22:00 Blood Peripheral Aerobic Blood Culture - Preliminary NO GROWTH IN 1 DAY Resulted 07/08/17 22:00 Blood Peripheral Anaerobic Blood Culture - Preliminary NO GROWTH IN 1 DAY Resulted 07/07/17 13:32 Blood Peripheral Aerobic Blood Culture - Preliminary NO GROWTH IN 2 DAYS Resulted 07/07/17 13:32 Blood Peripheral Anaerobic Blood Culture - Preliminary NO GROWTH IN 2 DAYS Resulted 07/07/17 10:55 Blood Peripheral Aerobic Blood Culture - Preliminary Enterococcus Faecalis Resulted 07/07/17 10:55 Blood Peripheral Anaerobic Blood Culture - Preliminary NO GROWTH IN 2 DAYS Resulted Imaging Last Impressions Abdomen/Pelvis CT 07/02/17 0000 Signed Impressions: Service Date/Time: Sunday, July 02, 2017 16:45 - CONCLUSION: 9-10 mm right kidney stone. No hydronephrosis. Otherwise benign focally unremarkable CT appearance of the abdomen and pelvis. Ashvin Pereira MD Physical Exam GENERAL: Obese, well-developed patient, in no apparent distress. SKIN: No rashes, ecchymoses or lesions. Cool and dry. HEAD: Atraumatic. Normocephalic. No temporal or scalp tenderness. EYES: Pupils equal round and reactive. Extraocular motions intact. No scleral icterus. No injection or drainage. ENT: Nose without bleeding, purulent drainage or septal hematoma. Throat without erythema, tonsillar hypertrophy or exudate. Uvula midline. Airway patent. NECK: Trachea midline. Supple, nontender, no meningeal signs. CARDIOVASCULAR: Regular rate and rhythm without murmurs, gallops, or rubs. RESPIRATORY: Clear to auscultation. Breath sounds equal bilaterally. No wheezes , rales, or rhonchi. GASTROINTESTINAL: Abdomen soft, non-tender, nondistended. MUSCULOSKELETAL: Extremities without clubbing, cyanosis, or edema. No joint tenderness, effusion, or edema noted. No calf tenderness. Negative Homans sign bilaterally. NEUROLOGICAL: Awake and alert. Grossly normal exam Psych cooperative IV line sites with no e.o infection. Laboratory Assessment & Plan Remarks E.faecalis bacteremia transient. Staph epidermidis UTI in a man. H/o TURP 3 weeks back H/o metzger cath 3 weeks back H/o Cardiac cath and stent few weeks back. rule out endocarditis. H/o chills and night sweats. H/o renal stones and renal stent in past. Acute on chronic renal failure. Recs; Follow repeat blood cultures Continue Ampicillin Continue Zyvox oral. 2D ECHO negative Follow cultures Follow clinically. 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 Monse Diaz MD Jul 10, 2017 10:22
--- NOTE | 2017-07-10 10:33 | HHI.PR ---
Subjective Remarks Discussed with nursing, no new acute event since last night or any setbacks. The patient so says he feels tired, reports having intermittent chest pains which she says respond to nitroglycerin. Says he's had nausea for the last 2 days but none this morning, is looking forward to eating. Says that he feels like he is on the verge of crying, does mention having recent in the family as a contributing factor. Denies any dysuria but reports having some gross hematuria over the past few days, clear urine today. He does mention that he worked well with PT yesterday. Objective Vital Signs Date Time Temp Pulse Resp B/P (MAP) Pulse Ox O2 Delivery O2 Flow Rate FiO2 07/10/17 08:00 96.5 68 16 180/90 (120) 99 07/10/17 04:23 07/10/17 00:59 159/66 (97) 07/10/17 00:39 98.0 63 18 125/63 (83) 97 07/09/17 21:21 97.8 59 16 117/56 (76) 97 07/09/17 17:14 97.7 63 15 184/72 (109) 100 07/09/17 17:05 20 07/09/17 12:00 100.1 91 18 136/82 (100) 96 I/O 07/09/17 07/09/17 07/09/17 07/10/17 07/10/17 07/10/17 07:00 15:00 23:00 07:00 15:00 23:00 Output Total 300 ml 1350 ml Balance -300 ml -1350 ml Output Urine Total 300 ml 1350 ml # Bowel Movements 1 Result Diagram: 07/10/17 0545 07/10/17 0545 Imaging Laboratory Tests Test 07/10/17 05:45 White Blood Count 8.8 TH/MM3 (4.0-11.0) Red Blood Count 3.21 MIL/MM3 (4.50-5.90) Hemoglobin 9.4 GM/DL (13.0-17.0) Hematocrit 28.4 % (39.0-51.0) Mean Corpuscular Volume 88.6 FL (80.0-100.0) Mean Corpuscular Hemoglobin 29.2 PG (27.0-34.0) Mean Corpuscular Hemoglobin Concent 32.9 % (32.0-36.0) Red Cell Distribution Width 12.1 % (11.6-17.2) Platelet Count 548 TH/MM3 (150-450) Mean Platelet Volume 7.4 FL (7.0-11.0) Neutrophils (%) (Auto) 55.9 % (16.0-70.0) Lymphocytes (%) (Auto) 23.4 % (9.0-44.0) Monocytes (%) (Auto) 11.1 % (0.0-8.0) Eosinophils (%) (Auto) 9.4 % (0.0-4.0) Basophils (%) (Auto) 0.2 % (0.0-2.0) Neutrophils # (Auto) 4.9 TH/MM3 (1.8-7.7) Lymphocytes # (Auto) 2.1 TH/MM3 (1.0-4.8) Monocytes # (Auto) 1.0 TH/MM3 (0-0.9) Eosinophils # (Auto) 0.8 TH/MM3 (0-0.4) Basophils # (Auto) 0.0 TH/MM3 (0-0.2) CBC Comment DIFF FINAL Differential Comment Blood Urea Nitrogen 40 MG/DL (7-18) Creatinine 2.30 MG/DL (0.60-1.30) Random Glucose 134 MG/DL (74-106) Calcium Level 8.4 MG/DL (8.5-10.1) Sodium Level 137 MEQ/L (136-145) Potassium Level 3.9 MEQ/L (3.5-5.1) Chloride Level 103 MEQ/L (98-107) Carbon Dioxide Level 26.5 MEQ/L (21.0-32.0) Anion Gap 8 MEQ/L (5-15) Estimat Glomerular Filtration Rate 28 ML/MIN (>89) Objective Remarks Patient is sitting in his wheelchair Has tenderness to palpation over left pectoral chest wall Mild bilateral lower extremity edema Lungs are clear bilaterally, unlabored breathing, no suprapubic tenderness to palpation A/P Assessment and Plan Intermittent chest pains - respond to nitro historically. -Acute kidney injury superimposed on chronic kidney disease stage IV - fluctuating clearance. He did undergo a TURP several weeks ago. Trend bmp, if continues to worsen will consider nephrology consult. -UTI -initial urine culture grew staph epidermidis, repeat urine culture no growth at 48 hours. -Enterococcus faecalis bacteremia in one blood culture - on ampicillin per ID. Repeat low culture neg so far. -Type 2 diabetes -continue Lantus 12 units subcutaneous at bedtime, and sliding scale insulin. -Coronary artery disease status post CABG, status post stent one month ago with Dr. Jenkins as per the patient - continue Eliquis, metoprolol, statin -Chronic systolic CHF - left ventricular ejection fraction 40-45%. lasix Continue metoprolol. SHANIA hose for the pedal edema. Leg elevation when resting. starting low dose lisinopril. Maintaining a neg fluid balance so far. -BPH status post TURP several weeks ago - continue Flomax. -Cerebrovascular disease with history of stroke - continue Eliquis, statin. -Reported history of paroxysmal Atrial fibrillation - continue Eliquis, metoprolol. -COPD-use DuoNeb's when necessary. -Fibromyalgia - continue Lyrica - increased to 75 mg by mouth twice a day. -Anemia of chronic kidney disease - follow CBC, continue iron supplementation. -History of gastric ulcer. Continue PPI. -Mary Jane rash perineum. nystatin cream. -DVT prophylaxis with Eliquis. Jay Levy MD Jul 10, 2017 10:33
[2017-07-10] MEDS ORDERED: PILL SPLITTER OTHER PRN (10:45)
[2017-07-10] MEDS: LISINOPRIL 5 MG TAB PO SCH (11:54)
[2017-07-10 20:00] VITALS: BP 122/50; PULSE 70; RESP 16; TEMP 96.5; O2SAT 99
[2017-07-10] MEDS: TAMSULOSIN HCL 0.4 MG CAP PO SCH (20:12)
[2017-07-10] MEDS: ATORVASTATIN 40 MG TAB PO SCH (20:13)
[2017-07-10] MEDS: ACETAMINOPHEN/HYDROcodone 325 MG/5 MG TAB PO PRN (20:13)
[2017-07-10] MEDS: INSULIN DETEMIR 100 UNITS/ML VIAL SQ SCH (20:15)
[2017-07-11] VITALS: BP 145/63; PULSE 72; RESP 20; TEMP 96.1; O2SAT 97
[2017-07-11] MEDS: AMPICILLIN INJ 2,000 MG in SODIUM CHLORIDE 0.9% INJ 100 ML IV SCH ×6 (00:23→20:54)
[2017-07-11 04:02] VITALS: RESP 20
[2017-07-11] MEDS: LEVOTHYROXINE SODIUM 200 MCG TAB PO SCH (04:58)
[2017-07-11 08:00] VITALS: BP 121/56; PULSE 57; RESP 20; TEMP 96.1; O2SAT 98
[2017-07-11] MEDS: INSULIN ASPART SUPPLEMENTAL SCALE SQ SCH ×4 (08:00→20:55)
[2017-07-11] MEDS: NYSTATIN 100,000 UNIT/GM CREAM 15 GM TOPICAL SCH ×2 (09:00→20:55)
[2017-07-11] MEDS: ISOSORBIDE MONONITRATE 60 MG TAB PO SCH (09:00)
[2017-07-11] MEDS: TIOTROPIUM BROMIDE 18 MCG INH INH SCH (09:00)
[2017-07-11] MEDS: NYSTATIN 100,000 U/GM PWD 15 GM BTL TOPICAL SCH ×2 (09:00→20:56)
[2017-07-11] MEDS: FUROSEMIDE 20 MG TAB PO SCH (09:00)
[2017-07-11] MEDS: SODIUM CHLORIDE 0.9% FLUSH 10 ML FLUSH IV FLUSH SCH ×2 (10:10→21:01)
[2017-07-11] MEDS: LINEZOLID 600 MG TAB PO SCH (10:11)
[2017-07-11] MEDS: PANTOPRAZOLE SOD 20 MG DELAYED RELEASE TAB PO SCH ×2 (10:11→20:54)
[2017-07-11] MEDS: MAGNESIUM OXIDE 400 MG TAB PO SCH (10:11)
[2017-07-11] MEDS: FERROUS SULFATE 325 MG (65 MG ELEMENTAL IRON) TAB PO SCH ×2 (10:11→18:01)
[2017-07-11] MEDS: APIXABAN 5 MG TABLET PO SCH ×2 (10:12→20:55)
[2017-07-11] MEDS: DOCUSATE SODIUM 50 MG/SENNA 8.6 MG TAB PO SCH ×2 (10:12→20:55)
[2017-07-11] MEDS: LISINOPRIL 5 MG TAB PO SCH (10:12)
[2017-07-11] MEDS: METOPROLOL TARTRATE 100 MG TAB PO SCH ×2 (10:12→20:54)
[2017-07-11] MEDS: CALCITRIOL 0.25 MCG CAP PO SCH (10:12)
[2017-07-11] MEDS: PREGABALIN 75 MG CAP PO SCH ×2 (10:12→20:55)
[2017-07-11] MEDS: ACETAMINOPHEN/HYDROcodone 325 MG/5 MG TAB PO PRN ×2 (10:20→20:56)
[2017-07-11 12:00] VITALS: BP 110/60; PULSE 53; RESP 21; TEMP 96.5; O2SAT 100
[2017-07-11 16:00] VITALS: BP 151/70; PULSE 71; RESP 21; TEMP 95.5; O2SAT 99
--- NOTE | 2017-07-11 18:01 | HHI.IDPN ---
Subjective Subjective Remarks C/o not feeling good. Chest more congested. Hematuria clearing up Fatigued. No fevers No rash Sitting in a chair No chills or fevers. Antibiotics Ampicillin IV Zyvox oral Lines Line sites with no e.o infection. Past Medical History reviewed Allergies: Coded Allergies: ciprofloxacin (Unverified Allergy, Severe, 07/02/17) diatrizoate meglumine (Unverified Allergy, Severe, 07/02/17) gadobenic acid (Unverified Allergy, Severe, 07/02/17) gadodiamide (Unverified Allergy, Severe, 07/02/17) gadoteridol (Unverified Allergy, Severe, 07/02/17) iodixanol (Unverified Allergy, Severe, 07/02/17) iohexol (Unverified Allergy, Severe, 07/02/17) levofloxacin (Unverified Allergy, Severe, 07/02/17) Objective . Vital Signs Date Time Temp Pulse Resp B/P (MAP) Pulse Ox O2 Delivery O2 Flow Rate FiO2 07/11/17 12:00 96.5 53 21 110/60 (77) 100 07/11/17 11:35 16 07/11/17 11:35 16 07/11/17 08:00 96.1 57 20 121/56 (77) 98 07/11/17 04:02 20 07/11/17 00:00 96.1 72 20 145/63 (90) 97 07/10/17 20:00 96.5 70 16 122/50 (74) 99 . Laboratory Tests Test 07/10/17 05:45 White Blood Count 8.8 TH/MM3 Red Blood Count 3.21 MIL/MM3 Hemoglobin 9.4 GM/DL Hematocrit 28.4 % Mean Corpuscular Volume 88.6 FL Mean Corpuscular Hemoglobin 29.2 PG Mean Corpuscular Hemoglobin Concent 32.9 % Red Cell Distribution Width 12.1 % Platelet Count 548 TH/MM3 Mean Platelet Volume 7.4 FL Neutrophils (%) (Auto) 55.9 % Lymphocytes (%) (Auto) 23.4 % Monocytes (%) (Auto) 11.1 % Eosinophils (%) (Auto) 9.4 % Basophils (%) (Auto) 0.2 % Neutrophils # (Auto) 4.9 TH/MM3 Lymphocytes # (Auto) 2.1 TH/MM3 Monocytes # (Auto) 1.0 TH/MM3 Eosinophils # (Auto) 0.8 TH/MM3 Basophils # (Auto) 0.0 TH/MM3 CBC Comment DIFF FINAL Differential Comment Laboratory Tests Test 07/10/17 05:45 Blood Urea Nitrogen 40 MG/DL Creatinine 2.30 MG/DL Random Glucose 134 MG/DL Calcium Level 8.4 MG/DL Sodium Level 137 MEQ/L Potassium Level 3.9 MEQ/L Chloride Level 103 MEQ/L Carbon Dioxide Level 26.5 MEQ/L Anion Gap 8 MEQ/L Estimat Glomerular Filtration Rate 28 ML/MIN Microbiology Date/Time Source Procedure Growth Status 07/08/17 22:00 Blood Peripheral Aerobic Blood Culture - Preliminary NO GROWTH IN 3 DAYS Resulted 07/08/17 22:00 Blood Peripheral Anaerobic Blood Culture - Preliminary NO GROWTH IN 3 DAYS Resulted 07/08/17 22:00 Blood Peripheral Aerobic Blood Culture - Preliminary NO GROWTH IN 3 DAYS Resulted 07/08/17 22:00 Blood Peripheral Anaerobic Blood Culture - Preliminary NO GROWTH IN 3 DAYS Resulted Imaging Last Impressions Abdomen/Pelvis CT 07/02/17 0000 Signed Impressions: Service Date/Time: Sunday, July 02, 2017 16:45 - CONCLUSION: 9-10 mm right kidney stone. No hydronephrosis. Otherwise benign focally unremarkable CT appearance of the abdomen and pelvis. Ashvin Pereira MD Physical Exam GENERAL: Obese, well-developed patient, in no apparent distress. SKIN: No rashes, ecchymoses or lesions. Cool and dry. IV site clean HEAD: Atraumatic. Normocephalic. No temporal or scalp tenderness. EYES: Pupils equal round and reactive. Extraocular motions intact. No scleral icterus. No injection or drainage. ENT: Nose without bleeding, purulent drainage or septal hematoma. Throat without erythema, tonsillar hypertrophy or exudate. Uvula midline. Airway patent. NECK: Trachea midline. Supple, nontender, no meningeal signs. CARDIOVASCULAR: Regular rate and rhythm without murmurs, gallops, or rubs. RESPIRATORY: Clear to auscultation. Breath sounds equal bilaterally. No wheezes , rales, or rhonchi. GASTROINTESTINAL: Abdomen soft, non-tender, nondistended. MUSCULOSKELETAL: Extremities without clubbing, cyanosis, or edema. No joint tenderness, effusion, or edema noted. No calf tenderness. Negative Homans sign bilaterally. NEUROLOGICAL: Awake and alert. Grossly normal exam Psych cooperative Assessment & Plan Remarks E.faecalis bacteremia transient. Echo negative Staph epidermidis UTI in a man. H/o TURP 3 weeks back H/o metzger cath 3 weeks back H/o Cardiac cath and stent few weeks back. rule out endocarditis. H/o chills and night sweats. H/o renal stones and renal stent in past. Acute on chronic renal failure. Recs; Follow repeat blood cultures Continue Ampicillin IV for now Stop Zyvox Repeat UA and culture Kristan Myrick MD Jul 11, 2017 18:01
[2017-07-11 20:00] VITALS: BP 137/70; PULSE 66; RESP 20; TEMP 96.9; O2SAT 100
[2017-07-11] MEDS: INSULIN DETEMIR 100 UNITS/ML VIAL SQ SCH (20:54)
[2017-07-11] MEDS: ATORVASTATIN 40 MG TAB PO SCH (20:54)
[2017-07-11] MEDS: TAMSULOSIN HCL 0.4 MG CAP PO SCH (20:55)
--- NOTE | 2017-07-11 22:28 | HHI.PR ---
Subjective Remarks No new acute events noted since last night. or any setbacks. PT recommending he returning to rehab as of now. No acute complaints from pt. Objective Vital Signs Date Time Temp Pulse Resp B/P (MAP) Pulse Ox O2 Delivery O2 Flow Rate FiO2 07/11/17 20:00 96.9 66 20 137/70 (92) 100 07/11/17 16:00 95.5 71 21 151/70 (97) 99 07/11/17 12:00 96.5 53 21 110/60 (77) 100 07/11/17 11:35 16 07/11/17 11:35 16 07/11/17 08:00 96.1 57 20 121/56 (77) 98 07/11/17 04:02 20 07/11/17 00:00 96.1 72 20 145/63 (90) 97 I/O 07/10/17 07/10/17 07/10/17 07/11/17 07/11/17 07/11/17 07:00 15:00 23:00 07:00 15:00 23:00 Intake Total 1410 ml 100 ml 400 ml Output Total 1350 ml 800 ml 550 ml Balance -1350 ml 610 ml 100 ml -150 ml Intake Oral 1410 ml 100 ml IV Total 100 ml 300 ml Output Urine Total 1350 ml 800 ml 550 ml # Voids 1 # Bowel Movements 1 1 1 Result Diagram: 07/10/17 0545 07/10/17 0545 Objective Remarks Patient is sitting in his wheelchair Is in no acute distress, awake, alert A/P Assessment and Plan Intermittent chest pains - respond to nitro historically. Will monitor - chronic kidney disease stage IV - acute component resolved - hematuria - clearing up, likely 2/2 UTI but if recurs may need urology consulted (recently had TURP). to see if cystocopy is warranted -UTI -initial urine culture grew staph epidermidis, repeat urine culture to date. Clinically imprinvg - Stopping zyvox per ID. -Enterococcus faecalis bacteremia in one blood culture - on ampicillin per ID. Repeat low culture neg so far. -Type 2 diabetes -continue Lantus 12 units subcutaneous at bedtime, and sliding scale insulin. -Coronary artery disease status post CABG, status post stent one month ago with Dr. Jenkins as per the patient - continue Eliquis, metoprolol, statin -Chronic systolic CHF - left ventricular ejection fraction 40-45%. Lasix Continue metoprolol. SHANIA hose for the pedal edema. Leg elevation when resting. starting low dose lisinopril.stable fluid status. -BPH status post TURP several weeks ago - continue Flomax. -Cerebrovascular disease with history of stroke - continue Eliquis, statin. -Reported history of paroxysmal Atrial fibrillation - continue Eliquis, metoprolol. -COPD-use DuoNeb's when necessary. -Fibromyalgia - continue Lyrica - 75 mg by mouth twice a day. -Anemia of chronic kidney disease - continue iron supplementation. -History of gastric ulcer. Continue PPI. -Mary Jane rash perineum. nystatin cream. -DVT prophylaxis with Eliquis. Jay Levy MD Jul 11, 2017 22:28
[2017-07-12] VITALS (7 sets, daily range): BP systolic 107–142; BP diastolic 55–69; PULSE 51–76; RESP 20–22; TEMP 95.5–98; O2SAT 95–100
[2017-07-12] MEDS: AMPICILLIN INJ 2,000 MG in SODIUM CHLORIDE 0.9% INJ 100 ML IV SCH ×6 (00:49→20:38)
[2017-07-12] MEDS: NITROGLYCERIN 0.3 MG SL 100 TABS/BTL SL PRN ×2 (02:47→05:24)
[2017-07-12 04:29] LABS: BLOOD, URINE LARGE (NEG); GLUCOSE,URINE NEG (NEG); KETONE, URINE NEG (NEG); NITRITE,URINE NEG (NEG); PH, URINE 5.5 (5.0-8.5)
[2017-07-12 04:53] LABS: MUCUS URINE MOD /lpf (OCC); URINE COLOR YELLOW (YELLW/STRAW)
[2017-07-12 04:55] LABS: BACTERIA, URINE FEW /hpf; COMMENT (UR) CULTURE INDICATED; CULTURE IF INDICATED CULTURE INDICATED; SQUAMOUS EPITHELIAL CELL URINE 0-5 /hpf (0-5)
[2017-07-12] MEDS: LEVOTHYROXINE SODIUM 200 MCG TAB PO SCH (05:21)
[2017-07-12] MEDS: ACETAMINOPHEN/HYDROcodone 325 MG/5 MG TAB PO PRN ×3 (05:24→20:39)
[2017-07-12] MEDS: INSULIN ASPART SUPPLEMENTAL SCALE SQ SCH ×4 (08:00→20:42)
[2017-07-12] MEDS: TIOTROPIUM BROMIDE 18 MCG INH INH SCH (09:00)
[2017-07-12] MEDS: DOCUSATE SODIUM 50 MG/SENNA 8.6 MG TAB PO SCH ×2 (09:00→20:41)
[2017-07-12] MEDS: NYSTATIN 100,000 U/GM PWD 15 GM BTL TOPICAL SCH ×2 (09:00→20:42)
[2017-07-12] MEDS: CALCITRIOL 0.25 MCG CAP PO SCH (09:01)
[2017-07-12] MEDS: NYSTATIN 100,000 UNIT/GM CREAM 15 GM TOPICAL SCH ×2 (09:01→20:43)
[2017-07-12] MEDS: ISOSORBIDE MONONITRATE 60 MG TAB PO SCH (09:01)
[2017-07-12] MEDS: FUROSEMIDE 20 MG TAB PO SCH (09:02)
[2017-07-12] MEDS: METOPROLOL TARTRATE 100 MG TAB PO SCH ×2 (09:02→20:38)
[2017-07-12] MEDS: MAGNESIUM OXIDE 400 MG TAB PO SCH (09:02)
[2017-07-12] MEDS: LISINOPRIL 5 MG TAB PO SCH (09:02)
[2017-07-12] MEDS: PREGABALIN 75 MG CAP PO SCH ×2 (09:02→20:38)
[2017-07-12] MEDS: APIXABAN 5 MG TABLET PO SCH ×2 (09:03→20:39)
[2017-07-12] MEDS: SODIUM CHLORIDE 0.9% FLUSH 10 ML FLUSH IV FLUSH SCH ×2 (09:03→20:41)
[2017-07-12] MEDS: PANTOPRAZOLE SOD 20 MG DELAYED RELEASE TAB PO SCH ×2 (09:03→20:39)
[2017-07-12] MEDS: FERROUS SULFATE 325 MG (65 MG ELEMENTAL IRON) TAB PO SCH ×2 (09:03→17:47)
[2017-07-12] MEDS ORDERED: FUROSEMIDE 40 MG/4 ML VIAL IV PUSH ONE (14:00)
--- NOTE | 2017-07-12 14:37 | HHI.PR ---
Subjective Remarks RN reports pt having some diarrhea. Pt says he hadn't had a stool softener in a week he says. On abdominal palpation on his right flank and left flank he's very tender. 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 Patient says that he still has burning with urination but it is better than yesterday, says he still had some pink tinged urine today, says it was clear yesterday. He also says that his lower extremity edema is somewhat worse than it usually is at baseline (says he was taking Bumex per nephrology in the past) Objective Vital Signs Date Time Temp Pulse Resp B/P (MAP) Pulse Ox O2 Delivery O2 Flow Rate FiO2 07/12/17 13:49 18 07/12/17 10:02 18 07/12/17 08:00 96.0 60 20 107/55 (72) 99 07/12/17 04:14 120/60 (80) 07/12/17 03:18 98.0 73 20 121/63 (82) 98 07/12/17 00:00 95.9 76 20 120/62 (81) 95 07/11/17 20:00 96.9 66 20 137/70 (92) 100 07/11/17 16:00 95.5 71 21 151/70 (97) 99 I/O 07/11/17 07/11/17 07/11/17 07/12/17 07/12/17 07/12/17 07:00 15:00 23:00 07:00 15:00 23:00 Intake Total 400 ml 100 ml 440 ml Output Total 550 ml 1 ml 200 ml Balance -150 ml 99 ml 240 ml Intake Oral 100 ml 240 ml IV Total 300 ml 100 ml 200 ml Output Urine Total 550 ml 200 ml Stool Total 1 ml # Voids 1 # Bowel Movements 1 1 Result Diagram: 07/10/17 0545 07/10/1745 Objective Remarks Patient lying in bed No acute distress Unlabored breathing, clear breath sounds bilaterally Has 2+ pitting edema in bilateral feet No suprapubic tenderness but does have exquisite tenderness to moderate palpation bilateral right lower quadrants A/P Assessment and Plan - new problem of diarrhea We'll order C. difficile -new acute exacerbation of systolic CHF EF 40-45%. Fluid balance appears to be positive over the last 2 days , will give one-time dose of 40 mg of IV Lasix, and double dose of Lasix otherwise to 40 mg by mouth starting tomorrow scheduled daily. Continue daily metoprolol and lisinopril. LE elevation. - hematuria - 2/2 UTI, unlikely post TURP given his postprocedure a few weeks out, if persists with resolution of dysuria (clinical UTI symptoms) will need to be further worked up by urology -UTI - resolved by lab, still has dysuria clinically. Final repeat urine cultures negative drawn on 07/06. 07/12 clean catch urine pending. Will let ID manage any further need for further workup. If hematuria persists, will need urology to get involved again. -Enterococcus faecalis bacteremia in one blood culture - on ampicillin per ID. Repeat low culture neg so far. -Type 2 diabetes -continue Lantus 12 units subcutaneous at bedtime, and sliding scale insulin. -Coronary artery disease status post CABG, status post stent one month ago with Dr. Jenkins as per the patient - continue Eliquis, metoprolol, statin -BPH status post TURP several weeks ago - continue Flomax. -Cerebrovascular disease with history of stroke - continue Eliquis, statin. -Reported history of paroxysmal Atrial fibrillation - continue Eliquis, metoprolol. -COPD-use DuoNeb's when necessary. -Fibromyalgia - continue Lyrica - 75 mg by mouth twice a day. -Anemia of chronic kidney disease - continue iron supplementation. -History of gastric ulcer. Continue PPI. -Mary Jane rash perineum. nystatin cream. chronic, intermittent chest pains -stable, nitroglycerin when necessary. chronic kidney disease stage IV -DVT prophylaxis with Eliquis. Jay Levy MD Jul 12, 2017 14:37
[2017-07-12] MEDS: ATORVASTATIN 40 MG TAB PO SCH (20:38)
[2017-07-12] MEDS: TAMSULOSIN HCL 0.4 MG CAP PO SCH (20:39)
[2017-07-12] MEDS: INSULIN DETEMIR 100 UNITS/ML VIAL SQ SCH (20:41)
[2017-07-13] VITALS: BP 154/70; PULSE 64; RESP 22; TEMP 95.7; O2SAT 98
[2017-07-13] MEDS: AMPICILLIN INJ 2,000 MG in SODIUM CHLORIDE 0.9% INJ 100 ML IV SCH ×7 (00:04→23:56)
[2017-07-13 04:12] VITALS: RESP 20
[2017-07-13] MEDS: LEVOTHYROXINE SODIUM 200 MCG TAB PO SCH (05:29)
[2017-07-13] MEDS: INSULIN ASPART SUPPLEMENTAL SCALE SQ SCH ×4 (08:00→20:50)
--- NOTE | 2017-07-13 08:40 | HHI.IDPN ---
Subjective Subjective Remarks C/o some LLQ pain. Had 1 loose bowel movement since yesterday. Some hematuria with clots Fatigued. No fevers No rash Sitting up in bed No chills or fevers. Antibiotics Ampicillin IV Zyvox oral Lines Line sites with no e.o infection. Past Medical History reviewed Allergies: Coded Allergies: ciprofloxacin (Unverified Allergy, Severe, 07/02/17) diatrizoate meglumine (Unverified Allergy, Severe, 07/02/17) gadobenic acid (Unverified Allergy, Severe, 07/02/17) gadodiamide (Unverified Allergy, Severe, 07/02/17) gadoteridol (Unverified Allergy, Severe, 07/02/17) iodixanol (Unverified Allergy, Severe, 07/02/17) iohexol (Unverified Allergy, Severe, 07/02/17) levofloxacin (Unverified Allergy, Severe, 07/02/17) Objective . Vital Signs Date Time Temp Pulse Resp B/P (MAP) Pulse Ox O2 Delivery O2 Flow Rate FiO2 07/13/17 04:12 20 07/13/17 00:00 95.7 64 22 154/70 (98) 98 07/12/17 20:00 95.8 64 22 129/59 (82) 99 07/12/17 16:00 96.5 51 20 124/58 (80) 99 07/12/17 13:49 18 07/12/17 12:00 95.5 63 20 142/69 (93) 100 07/12/17 10:02 18 . Microbiology Date/Time Source Procedure Growth Status 07/12/17 03:21 Urine Clean Catch Urine Culture Pending Received Imaging Last Impressions Abdomen/Pelvis CT 07/02/17 0000 Signed Impressions: Service Date/Time: Sunday, July 02, 2017 16:45 - CONCLUSION: 9-10 mm right kidney stone. No hydronephrosis. Otherwise benign focally unremarkable CT appearance of the abdomen and pelvis. Ashvin Pereira MD Physical Exam GENERAL: Obese, well-developed patient, in no apparent distress. SKIN: No rashes, ecchymoses or lesions. Cool and dry. IV site clean HEAD: Atraumatic. Normocephalic. No temporal or scalp tenderness. EYES: Pupils equal round and reactive. Extraocular motions intact. No scleral icterus. No injection or drainage. ENT: Nose without bleeding, purulent drainage or septal hematoma. Throat without erythema, tonsillar hypertrophy or exudate. Uvula midline. Airway patent. NECK: Trachea midline. Supple, nontender, no meningeal signs. CARDIOVASCULAR: Regular rate and rhythm without murmurs, gallops, or rubs. RESPIRATORY: Clear to auscultation. Breath sounds equal bilaterally. No wheezes , rales, or rhonchi. GASTROINTESTINAL: Abdomen soft, non-tender, nondistended. No mass MUSCULOSKELETAL: Extremities without clubbing, cyanosis, or edema. No joint tenderness, effusion, or edema noted. No calf tenderness. Negative Homans sign bilaterally. NEUROLOGICAL: Awake and alert. Grossly normal exam Psych cooperative Assessment & Plan Remarks E.faecalis bacteremia transient. Echo negative Staph epidermidis UTI in a man. H/o TURP 3 weeks back H/o metzger cath 3 weeks back H/o Cardiac cath and stent few weeks back. H/o renal stones and renal stent in past. Acute on chronic renal failure. Recs; Repeat blood cultures- negative so far Continue Ampicillin IV for now Follow repeat Urine culture- if culture negative- patient can be changed to PO Ampicillin If loose stools persist- check stool C diff. Kristan Myrcik MD Jul 13, 2017 08:40
[2017-07-13] MEDS: NYSTATIN 100,000 UNIT/GM CREAM 15 GM TOPICAL SCH ×2 (09:00→20:50)
[2017-07-13] MEDS: NYSTATIN 100,000 U/GM PWD 15 GM BTL TOPICAL SCH ×2 (09:00→20:50)
[2017-07-13] MEDS: DOCUSATE SODIUM 50 MG/SENNA 8.6 MG TAB PO SCH ×2 (09:00→20:49)
[2017-07-13] MEDS ORDERED: FUROSEMIDE 40 MG TAB PO SCH (09:00)
[2017-07-13 09:41] VITALS: BP 155/58; PULSE 65; RESP 15; TEMP 96.5; O2SAT 95
[2017-07-13] MEDS: TIOTROPIUM BROMIDE 18 MCG INH INH SCH (10:22)
[2017-07-13 10:24] LABS: POTASSIUM 4.2 MEQ/L (3.5-5.1)
[2017-07-13] MEDS: MAGNESIUM OXIDE 400 MG TAB PO SCH (10:24)
[2017-07-13] MEDS: SODIUM CHLORIDE 0.9% FLUSH 10 ML FLUSH IV FLUSH SCH ×2 (10:24→20:48)
[2017-07-13 10:25] LABS: BICARBONATE 23.2 MEQ/L (21.0-32.0)
[2017-07-13] MEDS: APIXABAN 5 MG TABLET PO SCH ×2 (10:25→20:49)
[2017-07-13] MEDS: FUROSEMIDE 20 MG TAB PO SCH (10:25)
[2017-07-13] MEDS: ISOSORBIDE MONONITRATE 60 MG TAB PO SCH (10:25)
[2017-07-13] MEDS: PANTOPRAZOLE SOD 20 MG DELAYED RELEASE TAB PO SCH ×2 (10:25→20:50)
[2017-07-13] MEDS: LACTOBACILLUS ACIDOPHILUS TAB PO SCH ×2 (10:25→20:49)
[2017-07-13] MEDS: METOPROLOL TARTRATE 100 MG TAB PO SCH ×2 (10:25→20:49)
[2017-07-13] MEDS: CALCITRIOL 0.25 MCG CAP PO SCH (10:26)
[2017-07-13] MEDS: PREGABALIN 75 MG CAP PO SCH ×2 (10:26→20:49)
[2017-07-13] MEDS: LISINOPRIL 5 MG TAB PO SCH (10:26)
[2017-07-13] MEDS: FERROUS SULFATE 325 MG (65 MG ELEMENTAL IRON) TAB PO SCH ×2 (10:26→17:07)
[2017-07-13 12:57] VITALS: BP 152/71; PULSE 63; RESP 16; TEMP 96.6; O2SAT 95
[2017-07-13] MEDS: SODIUM CHLOR 0.9% 1000 ML INJ 1,000 ML IV SCH (13:55)
--- NOTE | 2017-07-13 14:04 | HHI.PR ---
Subjective Remarks patient c/o pain in his feet due to neuropathy trying to keep his legs elevated as much as possible Objective Vitals Vital Signs Date Time Temp Pulse Resp B/P (MAP) Pulse Ox O2 Delivery O2 Flow Rate FiO2 07/13/17 12:57 96.6 63 16 152/71 (98) 95 07/13/17 09:41 96.5 65 15 155/58 (90) 95 07/13/17 04:12 20 07/13/17 00:00 95.7 64 22 154/70 (98) 98 07/12/17 20:00 95.8 64 22 129/59 (82) 99 07/12/17 16:00 96.5 51 20 124/58 (80) 99 I/O 07/12/17 07/12/17 07/12/17 07/13/17 07/13/17 07/13/17 07:00 15:00 23:00 07:00 15:00 23:00 Intake Total 440 ml 200 ml 500 ml 720 ml 100 ml Output Total 200 ml 650 ml Balance 240 ml 200 ml 500 ml 70 ml 100 ml Intake Oral 240 ml 300 ml 520 ml IV Total 200 ml 200 ml 200 ml 200 ml 100 ml Output Urine Total 200 ml 650 ml # Voids 5 2 # Bowel Movements 2 2 Result Diagram: 07/10/17 0545 07/13/17 0920 Objective Remarks GENERAL: Well-nourished, well-developed obese male patient. SKIN: Warm and dry. HEAD: Normocephalic. EYES: No scleral icterus. No injection or drainage. NECK: Supple, trachea midline. No JVD or lymphadenopathy. CARDIOVASCULAR: Regular rate and rhythm without murmurs, gallops, or rubs. RESPIRATORY: Breath sounds equal bilaterally. No accessory muscle use. GASTROINTESTINAL: Abdomen soft, non-tender, nondistended. EXTREMITIES: 1+ pedal edema NEUROLOGICAL: Awake, alert, and oriented x 3. Non-focal. A/P Problem List: (1) GABBI (acute kidney injury) ICD Code: N17.9 - Acute kidney failure, unspecified (2) CKD (chronic kidney disease), stage IV ICD Code: N18.4 - Chronic kidney disease, stage 4 (severe) (3) Type 2 diabetes mellitus ICD Code: E11.9 - Type 2 diabetes mellitus without complications (4) UTI (urinary tract infection) ICD Code: N39.0 - Urinary tract infection, site not specified Status: Acute (5) Weakness ICD Code: R53.1 - Weakness (6) Chronic systolic CHF (congestive heart failure) ICD Code: I50.22 - Chronic systolic (congestive) heart failure (7) Coronary artery disease ICD Code: I25.10 - Atherosclerotic heart disease of [place] coronary artery without angina pectoris Assessment and Plan -Acute kidney injury superimposed on chronic kidney disease stage IV -initially improved after treatment with IV fluids, now worsened again today, will hold lasix PO and give gentle IVF NS at 75 ml/hr, repeat BMP in the morning, check a kidney ultrasound. Abdominal CT scan shows a nondistended bladder. He did undergo a TURP several weeks ago. Will repeat BMP in the morning and resume smaller dose of Lasix for the CHF and pedal edema. -Abnormal UA -s/p TURP several weeks ago - initial urine culture grew staph epidermidis, repeat urine culture no growth, third UA still abnormal culture pending. -Hematuria - likely d/t BPH recent surgery, f/u urology outpatient -Enterococcus faecalis bacteremia in one blood culture. Repeat low culture is pending. 2-D echo without vegetation. Continue ampicillin IV. Infectious disease following. -Type 2 diabetes -continue Lantus 12 units subcutaneous at bedtime, and sliding scale insulin. -Coronary artery disease status post CABG, status post stent one month ago with Dr. Jenkins as per the patient - continue Eliquis, metoprolol, statin -Chronic systolic CHF - left ventricular ejection fraction 45%. Hold lasix due to GABBI. Continue metoprolol. SHANIA hose for the pedal edema. -BPH status post TURP several weeks ago - continue Flomax. -Cerebrovascular disease with history of stroke - continue Eliquis, statin. -Reported history of paroxysmal Atrial fibrillation - continue Eliquis, metoprolol. -COPD-use DuoNeb's when necessary. -Fibromyalgia - continue Lyrica 75 mg by mouth twice a day. -Anemia of chronic kidney disease - follow CBC, continue iron supplementation. -History of gastric ulcer. Continue PPI. -Mary Jane rash perineum. cont nystatin cream. -DVT prophylaxis with Eliquis. Discharge Planning Patient declines to go to custodial facility. Wants to be discharged home with home health care. Problem Qualifiers (1) UTI (urinary tract infection): Qualified Codes: N39.0 - Urinary tract infection, site not specified; R31.9 - Hematuria, unspecified Patience Pacheco MD Jul 13, 2017 14:04
[2017-07-13 15:11] LABS: C. DIFF EPI 027 PRESUMPTIVE NEGATIVE (NEGATIVE)
--- NOTE | 2017-07-13 16:27 | RADRPT ---
EXAM DATE/TIME: 07/13/2017 15:00 [facility] COMPARISON: CT ABDOMEN & PELVIS W/O CONTRAST, July 02, 2017, 16:45. INDICATIONS : Increased BUN/creatinine. MEDICAL HISTORY : Myocardial infarction. Congestive heart failure. Hypercholesterolemia. CVA. Head trauma. Coronary art karen disease. Chest pain. HTN. COPD. Asthma. Sleep apnea. Renal disease. Renal calculi. Arthritis. UTI . Diabetes. Liver disease. Anticoagulant therapy. SURGICAL HISTORY : CABG. Tongue top cut off. Carpel tunnel. Multiple cardiac stent placement. ENCOUNTER: Initial ACUITY: 1 day PAIN SCORE: 0/10 LOCATION: Bilateral flank MEASUREMENTS: RIGHT KIDNEY: 11.7 x 5.8 x 5.1 cm LEFT KIDNEY: 11.7 x 6.1 x 4.5 cm FINDINGS: RIGHT KIDNEY: Renal cortex is normal in thickness and echotexture. No hydronephrosis, stone, or mass. LEFT KIDNEY: Renal cortex is normal in thickness and echotexture. No hydronephrosis, stone, or mass. BLADDER: Within normal limits given the degree of distension. CONCLUSION: Negative exam. Of note, stones identified in the collecting system on the prior CT are not well- seen on today's study. Raleigh Guillen MD on July 13, 2017 at 16:20 Board Certified Radiologist. This report was verified electronically.
[2017-07-13 17:34] VITALS: BP 155/67; PULSE 70; RESP 16; TEMP 96.2; O2SAT 99
[2017-07-13 20:00] VITALS: BP 120/52; PULSE 67; RESP 20; TEMP 95.8; O2SAT 99
[2017-07-13] MEDS: ACETAMINOPHEN/HYDROcodone 325 MG/5 MG TAB PO PRN (20:49)
[2017-07-13] MEDS: TAMSULOSIN HCL 0.4 MG CAP PO SCH (20:49)
[2017-07-13] MEDS: ATORVASTATIN 40 MG TAB PO SCH (20:49)
[2017-07-13] MEDS: INSULIN DETEMIR 100 UNITS/ML VIAL SQ SCH ×2 (20:50→21:00)
[2017-07-14] VITALS: BP 140/73; PULSE 75; RESP 18; TEMP 97.9; O2SAT 96
[2017-07-14] MEDS: AMPICILLIN INJ 2,000 MG in SODIUM CHLORIDE 0.9% INJ 100 ML IV SCH ×2 (03:35→09:27)
[2017-07-14 05:48] LABS: POTASSIUM 4.5 MEQ/L (3.5-5.1)
[2017-07-14 05:52] LABS: BICARBONATE 20.2 MEQ/L (21.0-32.0)
[2017-07-14] MEDS: LEVOTHYROXINE SODIUM 200 MCG TAB PO SCH (06:19)
[2017-07-14] MEDS: SODIUM CHLOR 0.9% 1000 ML INJ 1,000 ML IV SCH ×3 (06:19→21:30)
[2017-07-14] MEDS: INSULIN ASPART SUPPLEMENTAL SCALE SQ SCH ×4 (07:54→21:00)
[2017-07-14] MEDS: SODIUM CHLORIDE 0.9% FLUSH 10 ML FLUSH IV FLUSH SCH ×2 (07:54→21:00)
[2017-07-14] MEDS: DOCUSATE SODIUM 50 MG/SENNA 8.6 MG TAB PO SCH ×2 (08:13→21:31)
[2017-07-14 08:20] VITALS: BP 86/54; PULSE 62; RESP 19; TEMP 97.9; O2SAT 97
[2017-07-14] MEDS: NYSTATIN 100,000 U/GM PWD 15 GM BTL TOPICAL SCH (09:00)
[2017-07-14] MEDS: TIOTROPIUM BROMIDE 18 MCG INH INH SCH (09:00)
[2017-07-14] MEDS: NYSTATIN 100,000 UNIT/GM CREAM 15 GM TOPICAL SCH (09:00)
[2017-07-14 09:22] VITALS: BP 109/73
[2017-07-14] MEDS: LISINOPRIL 5 MG TAB PO SCH (09:28)
[2017-07-14] MEDS: METOPROLOL TARTRATE 100 MG TAB PO SCH ×2 (09:28→21:32)
[2017-07-14] MEDS: APIXABAN 5 MG TABLET PO SCH ×2 (09:28→21:31)
[2017-07-14] MEDS: PANTOPRAZOLE SOD 20 MG DELAYED RELEASE TAB PO SCH ×2 (09:28→21:32)
[2017-07-14] MEDS: FERROUS SULFATE 325 MG (65 MG ELEMENTAL IRON) TAB PO SCH ×2 (09:28→17:11)
[2017-07-14] MEDS: CALCITRIOL 0.25 MCG CAP PO SCH (09:28)
[2017-07-14] MEDS: MAGNESIUM OXIDE 400 MG TAB PO SCH (09:28)
[2017-07-14] MEDS: PREGABALIN 75 MG CAP PO SCH ×2 (09:28→21:31)
[2017-07-14] MEDS: LACTOBACILLUS ACIDOPHILUS TAB PO SCH ×2 (09:28→21:31)
[2017-07-14] MEDS: ISOSORBIDE MONONITRATE 60 MG TAB PO SCH (09:28)
--- NOTE | 2017-07-14 10:39 | HHI.IDPN ---
Subjective Subjective Remarks C/o not feeling good. No more diarrhea or abdominal pain Hematuria and clots improved Fatigued. No fevers Rash on buttocks and thighs for a year- very itchy Antibiotics Ampicillin IV Lines Line sites with no e.o infection. Past Medical History reviewed Allergies: Coded Allergies: ciprofloxacin (Unverified Allergy, Severe, 07/02/17) diatrizoate meglumine (Unverified Allergy, Severe, 07/02/17) gadobenic acid (Unverified Allergy, Severe, 07/02/17) gadodiamide (Unverified Allergy, Severe, 07/02/17) gadoteridol (Unverified Allergy, Severe, 07/02/17) iodixanol (Unverified Allergy, Severe, 07/02/17) iohexol (Unverified Allergy, Severe, 07/02/17) levofloxacin (Unverified Allergy, Severe, 07/02/17) Objective . Vital Signs Date Time Temp Pulse Resp B/P (MAP) Pulse Ox O2 Delivery O2 Flow Rate FiO2 07/14/17 09:22 109/73 (85) 07/14/17 08:20 97.9 62 19 86/54 (65) 97 07/14/17 00:00 97.9 75 18 140/73 (95) 96 07/13/17 20:00 95.8 67 20 120/52 (74) 99 07/13/17 17:34 96.2 70 16 155/67 (96) 99 07/13/17 12:57 96.6 63 16 152/71 (98) 95 . Laboratory Tests Test 07/13/17 09:20 07/14/17 04:35 Blood Urea Nitrogen 59 MG/DL 69 MG/DL Creatinine 3.90 MG/DL 5.30 MG/DL Random Glucose 98 MG/DL 106 MG/DL Calcium Level 8.4 MG/DL 7.9 MG/DL Sodium Level 138 MEQ/L 139 MEQ/L Potassium Level 4.2 MEQ/L 4.5 MEQ/L Chloride Level 105 MEQ/L 108 MEQ/L Carbon Dioxide Level 23.2 MEQ/L 20.2 MEQ/L Anion Gap 10 MEQ/L 11 MEQ/L Estimat Glomerular Filtration Rate 15 ML/MIN 11 ML/MIN Microbiology Date/Time Source Procedure Growth Status 07/12/17 03:21 Urine Clean Catch Urine Culture - Final NO GROWTH IN 48 HOURS. Complete Imaging Last Impressions Abdomen/Pelvis CT 07/02/17 0000 Signed Impressions: Service Date/Time: Sunday, July 02, 2017 16:45 - CONCLUSION: 9-10 mm right kidney stone. No hydronephrosis. Otherwise benign focally unremarkable CT appearance of the abdomen and pelvis. Ashvin Pereira MD Physical Exam GENERAL: Obese, patient, in no apparent distress. SKIN: Chronic dermatitis rash on buttocks and posterior thighs - scratch peacock. IV site clean but bleeding HEAD: Atraumatic. Normocephalic. No temporal or scalp tenderness. EYES: Pupils equal round and reactive. Extraocular motions intact. No scleral icterus. No injection or drainage. ENT: Nose without bleeding, purulent drainage or septal hematoma. Throat without erythema, tonsillar hypertrophy or exudate. Uvula midline. Airway patent. NECK: Trachea midline. Supple, nontender, no meningeal signs. CARDIOVASCULAR: Regular rate and rhythm without murmurs, gallops, or rubs. RESPIRATORY: Clear to auscultation. Breath sounds equal bilaterally. No wheezes , rales, or rhonchi. GASTROINTESTINAL: Abdomen soft, non-tender, nondistended. No mass MUSCULOSKELETAL: Extremities without clubbing, cyanosis, or edema. No joint tenderness, effusion, or edema noted. No calf tenderness. Negative Homans sign bilaterally. NEUROLOGICAL: Awake and alert. Grossly normal exam Psych cooperative Assessment & Plan Remarks E.faecalis bacteremia transient. Echo negative Staph epidermidis UTI in a man. H/o TURP 3 weeks back H/o metzger cath 3 weeks back H/o Cardiac cath and stent few weeks back. H/o renal stones and renal stent in past. Acute on chronic renal failure. Recs; Repeat blood cultures- negative so far Stop Ampicillin IV . Start Ampicillin 500 mg bid Repeat Urine culture is negative Stool C diff- negative Fluconazole 100 mg po qd and Nystatin- triamcinolone cream for chronic rash on back of thighs. Worsening renal function- on IV fluids Kristan Myrick MD Jul 14, 2017 10:39
--- NOTE | 2017-07-14 11:09 | HHI.PR ---
Subjective Remarks Patient states that he has not been urinating as much however denies urgency or suprapubic abdominal pain. He complains of pruritus over his posterior thighs as well as his bilateral groins and around his belt line. Denies shortness of breath. Objective Vitals Vital Signs Date Time Temp Pulse Resp B/P (MAP) Pulse Ox O2 Delivery O2 Flow Rate FiO2 07/14/17 09:22 109/73 (85) 07/14/17 08:20 97.9 62 19 86/54 (65) 97 07/14/17 00:00 97.9 75 18 140/73 (95) 96 07/13/17 20:00 95.8 67 20 120/52 (74) 99 07/13/17 17:34 96.2 70 16 155/67 (96) 99 07/13/17 12:57 96.6 63 16 152/71 (98) 95 I/O 07/13/17 07/13/17 07/13/17 07/14/17 07/14/17 07/14/17 07:00 15:00 23:00 07:00 15:00 23:00 Intake Total 720 ml 200 ml 1462 ml 1518 ml Output Total 650 ml Balance 70 ml 200 ml 1462 ml 1518 ml Intake Oral 520 ml 1000 ml 580 ml IV Total 200 ml 200 ml 462 ml 938 ml Output Urine Total 650 ml # Voids 3 4 # Bowel Movements 2 1 2 Result Diagram: 07/10/17 0545 07/14/17 0435 Objective Remarks GENERAL: Well-nourished, well-developed obese male patient. SKIN: Warm and dry. The patient has white plaques on bilateral fat pads next 2 penis as well as several on his belt line and posterior thighs with secondary excoriation on the posterior thighs. HEAD: Normocephalic. EYES: No scleral icterus. No injection or drainage. NECK: Supple, trachea midline. No JVD or lymphadenopathy. CARDIOVASCULAR: Regular rate and rhythm without murmurs, gallops, or rubs. RESPIRATORY: Breath sounds equal bilaterally. No accessory muscle use. GASTROINTESTINAL: Abdomen soft, non-tender, nondistended. EXTREMITIES: 1+ pedal edema NEUROLOGICAL: Awake, alert, and oriented x 3. Non-focal. A/P Problem List: (1) GABBI (acute kidney injury) ICD Code: N17.9 - Acute kidney failure, unspecified (2) CKD (chronic kidney disease), stage IV ICD Code: N18.4 - Chronic kidney disease, stage 4 (severe) (3) Type 2 diabetes mellitus ICD Code: E11.9 - Type 2 diabetes mellitus without complications (4) UTI (urinary tract infection) ICD Code: N39.0 - Urinary tract infection, site not specified Status: Acute (5) Weakness ICD Code: R53.1 - Weakness (6) Chronic systolic CHF (congestive heart failure) ICD Code: I50.22 - Chronic systolic (congestive) heart failure (7) Coronary artery disease ICD Code: I25.10 - Atherosclerotic heart disease of [place] coronary artery without angina pectoris Assessment and Plan -Acute kidney injury superimposed on chronic kidney disease stage IV -initially improved after treatment with IV fluids, now worsening despite IV fluids, with oliguria. Continue to hold lasix PO continue gentle IVF NS at 75 ml/hr, repeat BMP in the morning. kidney ultrasound was negative for obstruction. As kidney function is worsening we'll consult nephrology. He did have one low blood pressure this morning but has not been hypotensive otherwise. Hold lisinopril. -Abnormal UA -s/p TURP several weeks ago - initial urine culture grew staph epidermidis, repeat urine culture no growth, third urine culture no growth to date. -Hematuria - likely d/t BPH recent surgery, f/u urology outpatient -Enterococcus faecalis bacteremia in one blood culture. Repeat low culture is pending. 2-D echo without vegetation. Now on ampicillin by mouth per infectious disease. -Type 2 diabetes -continue Lantus 12 units subcutaneous at bedtime, and sliding scale insulin. -Coronary artery disease status post CABG, status post stent one month ago with Dr. Jenkins as per the patient - continue Eliquis, metoprolol, statin -Chronic systolic CHF - left ventricular ejection fraction 45%. Hold lasix and lisinopril due to GABBI. Continue metoprolol with holding parameters. SHANIA hose for the pedal edema. -BPH status post TURP several weeks ago - continue Flomax. -Chronic rash and posterior thighs, next the penis, belt line with white plaques - psoriasis? Continue steroid cream. -Cerebrovascular disease with history of stroke - continue Eliquis, statin. -Reported history of paroxysmal Atrial fibrillation - continue Eliquis, metoprolol. -COPD-use DuoNeb's when necessary. -Fibromyalgia - continue Lyrica 75 mg by mouth twice a day. -Anemia of chronic kidney disease - follow CBC, continue iron supplementation. -History of gastric ulcer. Continue PPI. -Mary Jane rash perineum. cont nystatin cream. -DVT prophylaxis with Eliquis. Discharge Planning Patient declines to go to nursing home facility. Wants to be discharged home with home health care. Problem Qualifiers (1) UTI (urinary tract infection): Qualified Codes: N39.0 - Urinary tract infection, site not specified; R31.9 - Hematuria, unspecified Patience Pacheco MD Jul 14, 2017 11:09
[2017-07-14 12:35] VITALS: BP 88/53; PULSE 93; RESP 19; TEMP 96.7; O2SAT 97
[2017-07-14] MEDS ORDERED: SODIUM CHLORID 0.9% 500 ML INJ 500 ML IV ONE (13:30)
[2017-07-14] MEDS: FLUCONAZOLE 100 MG TAB PO SCH (13:55)
[2017-07-14] MEDS: NYSTATIN/TRIAMCINOLONE CREAM 15 GM TOPICAL SCH (13:55)
[2017-07-14 17:00] VITALS: BP 155/74; PULSE 70; RESP 19; TEMP 97.3; O2SAT 97
[2017-07-14 20:50] VITALS: BP 142/68; PULSE 72; RESP 22; TEMP 98.9; O2SAT 97
[2017-07-14] MEDS: INSULIN DETEMIR 100 UNITS/ML VIAL SQ SCH ×2 (21:00→21:31)
[2017-07-14] MEDS: AMOXICILLIN (TRIHYDRATE) 500 MG CAP PO SCH (21:31)
[2017-07-14] MEDS: ATORVASTATIN 40 MG TAB PO SCH (21:32)
[2017-07-14] MEDS: TAMSULOSIN HCL 0.4 MG CAP PO SCH (21:32)
[2017-07-14] MEDS: ACETAMINOPHEN/HYDROcodone 325 MG/5 MG TAB PO PRN (23:32)
[2017-07-15] MEDS: PREGABALIN 75 MG CAP PO SCH ×2 (00:57→09:08)
[2017-07-15 01:46] VITALS: BP 149/79; PULSE 76; RESP 20; TEMP 98; O2SAT 98
[2017-07-15] MEDS: LEVOTHYROXINE SODIUM 200 MCG TAB PO SCH (06:11)
[2017-07-15] MEDS: SODIUM CHLOR 0.9% 1000 ML INJ 1,000 ML IV SCH ×2 (06:12→16:01)
[2017-07-15 08:00] VITALS: BP 141/69; PULSE 67; RESP 20; TEMP 98.2; O2SAT 98
[2017-07-15] MEDS: INSULIN ASPART SUPPLEMENTAL SCALE SQ SCH ×4 (08:00→21:00)
[2017-07-15] MEDS: SODIUM CHLORIDE 0.9% FLUSH 10 ML FLUSH IV FLUSH SCH ×2 (09:00→21:00)
[2017-07-15] MEDS: DOCUSATE SODIUM 50 MG/SENNA 8.6 MG TAB PO SCH ×2 (09:00→21:00)
[2017-07-15] MEDS: FLUCONAZOLE 100 MG TAB PO SCH (09:07)
[2017-07-15] MEDS: LACTOBACILLUS ACIDOPHILUS TAB PO SCH ×2 (09:07→21:12)
[2017-07-15] MEDS: FERROUS SULFATE 325 MG (65 MG ELEMENTAL IRON) TAB PO SCH ×2 (09:07→17:41)
[2017-07-15] MEDS: AMOXICILLIN (TRIHYDRATE) 500 MG CAP PO SCH ×2 (09:07→21:12)
[2017-07-15] MEDS: METOPROLOL TARTRATE 100 MG TAB PO SCH ×2 (09:07→21:12)
[2017-07-15] MEDS: PANTOPRAZOLE SOD 20 MG DELAYED RELEASE TAB PO SCH (09:08)
[2017-07-15] MEDS: APIXABAN 5 MG TABLET PO SCH ×2 (09:08→21:12)
[2017-07-15] MEDS: MAGNESIUM OXIDE 400 MG TAB PO SCH (09:08)
[2017-07-15] MEDS: CALCITRIOL 0.25 MCG CAP PO SCH (09:15)
[2017-07-15] MEDS: ACETAMINOPHEN/HYDROcodone 325 MG/5 MG TAB PO PRN ×2 (09:15→17:41)
[2017-07-15] MEDS: ISOSORBIDE MONONITRATE 60 MG TAB PO SCH (09:16)
--- NOTE | 2017-07-15 11:35 | HHI.PR ---
Subjective Remarks The patient states he's having congestion of the nose and lungs and wheezing. He states he was not able to urinate this morning, no suprapubic discomfort. The patient states he has history of emphysema. Patient states he feels miserable. Objective Vitals Vital Signs Date Time Temp Pulse Resp B/P (MAP) Pulse Ox O2 Delivery O2 Flow Rate FiO2 07/15/17 10:15 18 07/15/17 08:00 98.2 67 20 141/69 (93) 98 07/15/17 04:39 07/15/17 01:46 98.0 76 20 149/79 (102) 98 07/14/17 20:50 98.9 72 22 142/68 (92) 97 07/14/17 17:00 97.3 70 19 155/74 (101) 97 07/14/17 12:35 96.7 93 19 88/53 (65) 97 I/O 07/14/17 07/14/17 07/14/17 07/15/17 07/15/17 07/15/17 07:00 15:00 23:00 07:00 15:00 23:00 Intake Total 1518 ml 833 ml 500 ml Output Total 650 ml Balance 1518 ml 833 ml 500 ml -650 ml Intake Oral 580 ml IV Total 938 ml 833 ml 500 ml Output Urine Total 650 ml # Voids 4 # Bowel Movements 2 1 Result Diagram: 07/14/17 0435 Objective Remarks GENERAL: Well-nourished, well-developed obese male patient. SKIN: Warm and dry. The patient has white plaques on bilateral fat pads next 2 penis as well as several on his belt line and posterior thighs with secondary excoriation on the posterior thighs. HEAD: Normocephalic. EYES: No scleral icterus. No injection or drainage. NECK: Supple, trachea midline. No JVD or lymphadenopathy. CARDIOVASCULAR: Regular rate and rhythm without murmurs, gallops, or rubs. RESPIRATORY: Breath sounds equal bilaterally. Forced expiratory wheeze. No accessory muscle use. GASTROINTESTINAL: Abdomen soft, non-tender, nondistended. EXTREMITIES: 2+ pitting edema of the legs, 1+ of the upper thighs bilaterally. NEUROLOGICAL: Awake, alert, and oriented x 3. Non-focal. A/P Problem List: (1) GABBI (acute kidney injury) ICD Code: N17.9 - Acute kidney failure, unspecified (2) CKD (chronic kidney disease), stage IV ICD Code: N18.4 - Chronic kidney disease, stage 4 (severe) (3) Type 2 diabetes mellitus ICD Code: E11.9 - Type 2 diabetes mellitus without complications (4) UTI (urinary tract infection) ICD Code: N39.0 - Urinary tract infection, site not specified Status: Acute (5) Weakness ICD Code: R53.1 - Weakness (6) Chronic systolic CHF (congestive heart failure) ICD Code: I50.22 - Chronic systolic (congestive) heart failure (7) Coronary artery disease ICD Code: I25.10 - Atherosclerotic heart disease of [place] coronary artery without angina pectoris Assessment and Plan -Acute kidney injury superimposed on chronic kidney disease stage IV -initially improved after treatment with IV fluids, now worsening despite IV fluids, with decreased urine output. Kidney ultrasound was negative for obstruction. As he has wheezing on exam and worsening pedal edema will hold IV fluids. BMP pending this morning. Nephrology has been consulted. Hold lisinopril. -Abnormal UA -s/p TURP several weeks ago - initial urine culture grew staph epidermidis, repeat urine culture no growth, third urine culture no growth to date. -Wheezing on exam. We'll check chest x-ray, start duo nebs. -Hematuria - likely d/t BPH recent surgery, f/u urology outpatient -Enterococcus faecalis bacteremia in one blood culture. Repeat blood culture was negative. 2-D echo without vegetation. Now on ampicillin by mouth per infectious disease. -Type 2 diabetes -decrease Levemir to 8 units subcutaneous at bedtime, and sliding scale insulin. -Coronary artery disease status post CABG, status post stent one month ago with Dr. Jenkins as per the patient - continue Eliquis, metoprolol, statin -Chronic systolic CHF - left ventricular ejection fraction 45%. Hold lasix and lisinopril due to GABBI. Continue metoprolol with holding parameters. SHANIA hose for the pedal edema. -BPH status post TURP several weeks ago - continue Flomax. -Chronic rash and posterior thighs, next the penis, belt line with white plaques - psoriasis? Continue steroid cream. He is on Diflucan per infectious disease as well. -Cerebrovascular disease with history of stroke - continue Eliquis, statin. -Reported history of paroxysmal Atrial fibrillation - continue Eliquis, metoprolol. -With forced expiratory wheeze start scheduled DuoNeb's, check chest x-ray. -Fibromyalgia - continue Lyrica 75 mg decreased to renal dosing once daily. -Anemia of chronic kidney disease - follow CBC, continue iron supplementation. -History of gastric ulcer. Continue PPI. -Mary Jane rash perineum. cont nystatin cream. -DVT prophylaxis with Eliquis. Discharge Planning Patient declines to go to detention facility. Wants to be discharged home with home health care. Problem Qualifiers (1) UTI (urinary tract infection): Qualified Codes: N39.0 - Urinary tract infection, site not specified; R31.9 - Hematuria, unspecified Patience Pacheco MD Jul 15, 2017 11:35
[2017-07-15] MEDS: RESP: ALBUTEROL 2.5 MG/IPRATROPIUM 0.5 MG NEB (SCH) NEB ×3 (11:40→21:00)
[2017-07-15] MEDS: TIOTROPIUM BROMIDE 18 MCG INH INH SCH (11:43)
[2017-07-15] MEDS: NYSTATIN/TRIAMCINOLONE CREAM 15 GM TOPICAL SCH ×3 (11:56→23:13)
[2017-07-15 12:49] LABS: AUTOMATED NEUTROPHIL # 6.3 TH/MM3 (1.8-7.7); BASOPHIL # 0.1 TH/MM3 (0-0.2); BASOPHIL % 0.7 % (0.0-2.0); EOSINOPHIL # 0.7 TH/MM3 (0-0.4); HEMATOCRIT 25.3 % (39.0-51.0); HEMO FLAGS DIFF FINAL; LYMPH % 15.3 % (9.0-44.0); LYMPHOCYTE # 1.4 TH/MM3 (1.0-4.8); MEAN CELL VOLUME 88.9 FL (80.0-100.0); MEAN CORPUSCULAR HEMOGLOBIN 29.9 PG (27.0-34.0); MEAN CORPUSCULAR HGB CONC 33.7 % (32.0-36.0); MONO % 8.8 % (0.0-8.0); NEUT % 68.2 % (16.0-70.0); PLATELET COUNT 376 TH/MM3 (150-450); RED BLOOD COUNT 2.84 MIL/MM3 (4.50-5.90); RED CELL DISTRIBUTION WIDTH 12.3 % (11.6-17.2); WHITE BLOOD COUNT 9.3 TH/MM3 (4.0-11.0)
[2017-07-15 12:58] LABS: POTASSIUM 4.9 MEQ/L (3.5-5.1)
[2017-07-15 13:03] LABS: BICARBONATE 18.5 MEQ/L (21.0-32.0)
--- NOTE | 2017-07-15 13:31 | RADRPT ---
EXAM DATE/TIME: 07/15/2017 13:21 [facility] COMPARISON: No previous studies available for comparison. INDICATIONS : Cough and congestion. MEDICAL HISTORY : Cardiovascular disease. SURGICAL HISTORY : CABG. ENCOUNTER: Subsequent ACUITY: 3 days PAIN SCORE: 5/10 LOCATION: Bilateral chest FINDINGS: Underinflated AP view of the chest demonstrates a normal-sized cardiac silhouette in this patient pos t median sternotomy and CABG. Clips overlie the mediastinum. Lungs are underinflated with likely atel ectasis at the bases. Otherwise, no definite effusion, consolidation, or pneumothorax is seen. Bones and soft tissues demonstrate no acute finding. CONCLUSION: Underinflation with atelectasis at the lung bases. Otherwise, no definite acute finding is appreciate d given the technique. Ashvin Meza MD on July 15, 2017 at 13:29 Board Certified Radiologist. This report was verified electronically.
--- NOTE | 2017-07-15 15:50 | MB ---
cc: TALAT ARANDA MD DATE OF CONSULTATION: 07/15/17 REASON FOR CONSULTATION Acute kidney injury with very high BUN and creatinine. HISTORY OF PRESENT ILLNESS This is a 71-year-old male with a past medical history of hypertension, diabetes mellitus, chronic kidney disease, history of prostatic hypertrophy, ischemic heart disease, atrial fibrillation, hyperlipidemia, gout, chronic anemia, chronic obstructive pulmonary disease, came to the hospital with generalized weakness. I was called to see the patient because of elevated BUN and creatinine. The patient was admitted on July 02 and he had a creatinine of 3.4 on admission which improved to 1.7-1.8 and was stable until five days ago when it started going up and now it has gone up to 7.3. The patient has a known history of chronic kidney disease. He has been following with Dr. Phillip and he has been in and out of the hospital and the assisted for the last one year according to him and recently he has nausea and decreased appetite. He has one episode of loose bowel motion. There is no dysuria or hematuria. He has decreased urine output for the last two days. He does not feel like he needs to pass the urine. The patient was diagnosed with a urinary tract infection and he is currently getting amoxicillin by mouth. The patient received intermittently some doses of Lasix, the last one was given two days ago and since then it has been stopped, and he was given IV fluid but this has been stopped today in the morning. The patient denies any chest pain. He has mild shortness of breath but currently he is on room air. He has a history of benign prostatic hypertrophy and TURP done in the past. PAST MEDICAL HISTORY 1. Hypertension. 2. Diabetes mellitus. 3. Ischemic heart disease. 4. Atrial fibrillation. 5. Hyperlipidemia. 6. Gout. 7. Chronic kidney disease. 8. Anemia. 9. Chronic obstructive pulmonary disease PAST SURGICAL HISTORY 1. Coronary artery bypass grafting. 2. History of TURP. REVIEW OF SYSTEMS The patient has generalized weakness, feeling tired. He has nausea. There is no vomiting. He has mild shortness of breath but he has been on room air and there is no chest pain, no cough, no palpitation, no vomiting. He had one loose bowel motion yesterday. No abdominal pain. No dysuria or hematuria but has decreased urine output for the last two days. ALLERGIES HE IS ALLERGIC TO MULTIPLE MEDICATIONS INCLUDING - CIPROFLOXACIN, DIATRIZOATE, GADOBENIC ACID, IODIXANOL, LEVAQUIN. MEDICATIONS Currently he is on the following medications. 1. Nicolle-Colace one tablet b.i.d. 2. Protonix 20 mg b.i.d. 3. Eliquis 5 mg b.i.d. 4. Metoprolol 100 mg b.i.d. 5. Ferrous sulfate 325 mg b.i.d. 6. Calcitriol 0.25 mcg daily. 7. Imdur 60 mg once a day. 8. Magnesium oxide 400 mg once a day. 9. Spiriva 18 mcg inhalation daily. 10. Lyrical 75 mg daily. 11. Diflucan 50 mg once a day. 12. Levothyroxine 200 mcg daily. 13. Lipitor 40 mg daily. 14. Flomax 0.4 mg q.h.s. 15. Levemir 8 units q.h.s. 16. DuoNeb nebulizer. 17. Nystatin topical cream. 18. Tums. 19. Narcan. 20. Marshall. PHYSICAL EXAMINATION GENERAL: On examination the patient is awake, alert. He is lying almost flat on the bed and he is not in any distress. VITAL SIGNS: His last blood pressure is 141/69, the lowest recorded blood pressure was 86/54 this was yesterday in the morning, temperature 98.2, oxygen saturation 98 on room air. HEENT: Pupils are mid constricted. Nonicteric sclerae. Conjunctivae are pale. NECK: Supple. JVD is not elevated. LUNGS: The patient has bilateral decreased air entry with occasional wheezing. HEART: S1, S2. Regular rhythm. ABDOMEN: Abdomen is obese, distended, soft, lax. There is no tenderness. Bowel sounds positive. EXTREMITIES: He has bilateral 1+ leg edema. INVESTIGATIONS WBC count is 9.3, hemoglobin 8.5, platelet count of 376, neutrophils 68.2%, eosinophils 7%. Sodium 139, potassium 4.9, chloride 109, bicarb 18.5, BUN 75, creatinine 7.3, calcium 7.8. INR is 1.6. Urinalysis done three days ago which showed that he has minimal proteinuria, large occult blood with WBC of 25-49. Blood culture growing Enterococcus, the repeat one showed no growth. Urine culture showing no growth. IMAGING STUDIES The patient has an ultrasound of the kidneys done two days ago which shows both kidneys are normal size and there is no stone and no hydronephrosis. Chest x-ray was done which shows atelectasis at the lung base. CT scan of the abdomen and pelvis done on admission without IV contrast and it shows a 9-10 mm right renal stone, no hydronephrosis. ASSESSMENT AND PLAN 1. Chronic kidney disease with acute kidney injury. 2. Urinary tract infection. 3. Bacteremia. 4. metabolic acidosis. 5. Diabetes mellitus. 6. History of ischemic heart disease and congestive heart failure The patient has chronic kidney disease and developed acute kidney injury. The differential diagnosis for chronic kidney disease would be either hypertensive or diabetic renal disease. His baseline creatinine seems to be close to 1.7-1.8. Now at present he has acute kidney injury. The differential diagnosis most likely would be either ATN or acute interstitial nephritis. I will check his urine sodium and osmolality. Also get urine for eosinophil and get the Mansfield catheter for accurate urine measurement. He was given some IV fluid yesterday. I will give him some gentle hydration with 50 mL/hr normal saline. I will decrease his Eliquis and Protonix. If renal function does not improve, then he possibly will need dialysis. This discussed with the patient. Avoid any nephrotoxins. Thank you for the consultation and I will follow the patient while he is in the hospital. MD NEELA Coleman/CHYNA /2:15 PM /3:01 PM
[2017-07-15 16:00] VITALS: BP 149/63; PULSE 73; RESP 20; TEMP 97.5; O2SAT 98
[2017-07-15 20:13] VITALS: BP 121/63; PULSE 80; RESP 22; TEMP 97.8; O2SAT 97
[2017-07-15] MEDS: INSULIN DETEMIR 100 UNITS/ML VIAL SQ SCH (21:00)
[2017-07-15] MEDS: TAMSULOSIN HCL 0.4 MG CAP PO SCH (21:12)
[2017-07-15] MEDS: ATORVASTATIN 40 MG TAB PO SCH (21:12)
[2017-07-15] MEDS: NITROGLYCERIN 0.3 MG SL 100 TABS/BTL SL PRN ×2 (21:32→21:41)
[2017-07-16 00:03] VITALS: BP 133/89; PULSE 85; RESP 20; TEMP 98.3; O2SAT 96
[2017-07-16] MEDS: LEVOTHYROXINE SODIUM 200 MCG TAB PO SCH (06:00)
[2017-07-16 07:19] LABS: AUTOMATED NEUTROPHIL # 9.1 TH/MM3 (1.8-7.7); BASOPHIL % 0.2 % (0.0-2.0); EOSINOPHIL # 0.4 TH/MM3 (0-0.4); EOSINOPHIL % 3.4 % (0.0-4.0); HEMATOCRIT 24.6 % (39.0-51.0); HEMO FLAGS DIFF FINAL; LYMPH % 10.2 % (9.0-44.0); LYMPHOCYTE # 1.2 TH/MM3 (1.0-4.8); MEAN CELL VOLUME 88.9 FL (80.0-100.0); MEAN CORPUSCULAR HEMOGLOBIN 30.4 PG (27.0-34.0); MEAN CORPUSCULAR HGB CONC 34.1 % (32.0-36.0); MONO % 9.7 % (0.0-8.0); NEUT % 76.5 % (16.0-70.0); PLATELET COUNT 337 TH/MM3 (150-450); RED BLOOD COUNT 2.77 MIL/MM3 (4.50-5.90); RED CELL DISTRIBUTION WIDTH 12.2 % (11.6-17.2); WHITE BLOOD COUNT 11.8 TH/MM3 (4.0-11.0)
[2017-07-16 07:25] LABS: POTASSIUM 4.7 MEQ/L (3.5-5.1)
[2017-07-16 07:33] LABS: BICARBONATE 17.9 MEQ/L (21.0-32.0)
[2017-07-16] MEDS: RESP: ALBUTEROL 2.5 MG/IPRATROPIUM 0.5 MG NEB (SCH) NEB ×6 (07:50→23:07)
[2017-07-16 08:00] VITALS: BP 140/62; PULSE 75; RESP 20; TEMP 97; O2SAT 95
[2017-07-16] MEDS: INSULIN ASPART SUPPLEMENTAL SCALE SQ SCH ×4 (08:00→21:00)
[2017-07-16] MEDS: TIOTROPIUM BROMIDE 18 MCG INH INH SCH (08:51)
[2017-07-16] MEDS: SODIUM CHLORIDE 0.9% FLUSH 10 ML FLUSH IV FLUSH SCH ×2 (08:52→21:16)
[2017-07-16] MEDS: METOPROLOL TARTRATE 100 MG TAB PO SCH ×2 (08:52→21:17)
[2017-07-16] MEDS: PREGABALIN 75 MG CAP PO SCH (08:53)
[2017-07-16] MEDS: MAGNESIUM OXIDE 400 MG TAB PO SCH (08:53)
[2017-07-16] MEDS: APIXABAN 5 MG TABLET PO SCH ×2 (08:53→21:17)
[2017-07-16] MEDS: LACTOBACILLUS ACIDOPHILUS TAB PO SCH ×2 (08:53→21:17)
[2017-07-16] MEDS: FERROUS SULFATE 325 MG (65 MG ELEMENTAL IRON) TAB PO SCH ×2 (08:53→17:18)
[2017-07-16] MEDS: AMOXICILLIN (TRIHYDRATE) 500 MG CAP PO SCH ×2 (08:53→21:16)
[2017-07-16] MEDS: ISOSORBIDE MONONITRATE 60 MG TAB PO SCH (08:54)
[2017-07-16] MEDS: CALCITRIOL 0.25 MCG CAP PO SCH (08:54)
[2017-07-16] MEDS: FLUCONAZOLE 100 MG TAB PO SCH (08:55)
[2017-07-16] MEDS: DOCUSATE SODIUM 50 MG/SENNA 8.6 MG TAB PO SCH ×2 (08:56→21:00)
[2017-07-16] MEDS: PANTOPRAZOLE SOD 20 MG DELAYED RELEASE TAB PO SCH (08:56)
[2017-07-16] MEDS: ACETAMINOPHEN/HYDROcodone 325 MG/5 MG TAB PO PRN ×2 (08:58→13:45)
[2017-07-16] MEDS: NITROGLYCERIN 0.3 MG SL 100 TABS/BTL SL PRN (09:56)
[2017-07-16 10:00] VITALS: BP 134/73; PULSE 102; RESP 18; TEMP 98.8; O2SAT 92
[2017-07-16] MEDS: NYSTATIN/TRIAMCINOLONE CREAM 15 GM TOPICAL SCH ×2 (11:56→23:50)
[2017-07-16 12:00] VITALS: BP 145/60; PULSE 79; RESP 20; TEMP 96.9; O2SAT 97
--- NOTE | 2017-07-16 12:41 | HHI.PR ---
Subjective Remarks Patient complains of pain in the bilateral wrists. Denies dyspnea. Patient had an episode of chest pain which was "like a vice squeezing his chest" earlier today. He states he's had multiple such episodes of chest pain over the past few months and had a negative nuclear stress test 6 months ago. His realtime court reporter is Dr. Jenkins. EKG was ordered showed normal sinus rhythm with smallest see depression, small QRS complexes. Troponin negative. Chest pain is now resolved. Objective Vitals Vital Signs Date Time Temp Pulse Resp B/P (MAP) Pulse Ox O2 Delivery O2 Flow Rate FiO2 07/16/17 12:00 96.9 79 20 145/60 (88) 97 07/16/17 10:00 98.8 102 18 134/73 (93) 92 07/16/17 09:58 18 07/16/17 09:53 18 07/16/17 08:00 97.0 75 20 140/62 (88) 95 07/16/17 04:13 07/16/17 00:03 98.3 85 20 133/89 (104) 96 07/15/17 20:13 97.8 80 22 121/63 (82) 97 07/15/17 16:00 97.5 73 20 149/63 (91) 98 I/O 07/15/17 07/15/17 07/15/17 07/16/17 07/16/17 07/16/17 07:00 15:00 23:00 07:00 15:00 23:00 Intake Total 1760 ml 405 ml Output Total 650 ml 200 ml 1550 ml Balance 1110 ml 205 ml -1550 ml Intake Oral 1260 ml 300 ml IV Total 500 ml 105 ml Output Urine Total 650 ml 200 ml 1550 ml Bladder Scan Volume Amount 0 ml # Voids 1 # Bowel Movements 3 0 Result Diagram: 07/16/17 0643 07/16/17 0643 Objective Remarks GENERAL: Well-nourished, well-developed obese male patient. SKIN: Warm and dry. The patient has white plaques on bilateral fat pads next 2 penis as well as several on his belt line and posterior thighs with secondary excoriation on the posterior thighs. HEAD: Normocephalic. EYES: No scleral icterus. No injection or drainage. NECK: Supple, trachea midline. No JVD or lymphadenopathy. CARDIOVASCULAR: Regular rate and rhythm without murmurs, gallops, or rubs. RESPIRATORY: Breath sounds equal bilaterally. Forced expiratory wheeze. No accessory muscle use. GASTROINTESTINAL: Abdomen soft, non-tender, nondistended. EXTREMITIES: 2+ pitting edema of the legs, 1+ of the upper thighs bilaterally. NEUROLOGICAL: Awake, alert, and oriented x 3. Non-focal. A/P Problem List: (1) GABBI (acute kidney injury) ICD Code: N17.9 - Acute kidney failure, unspecified (2) CKD (chronic kidney disease), stage IV ICD Code: N18.4 - Chronic kidney disease, stage 4 (severe) (3) Type 2 diabetes mellitus ICD Code: E11.9 - Type 2 diabetes mellitus without complications (4) UTI (urinary tract infection) ICD Code: N39.0 - Urinary tract infection, site not specified Status: Acute (5) Weakness ICD Code: R53.1 - Weakness (6) Chronic systolic CHF (congestive heart failure) ICD Code: I50.22 - Chronic systolic (congestive) heart failure (7) Coronary artery disease ICD Code: I25.10 - Atherosclerotic heart disease of [place] coronary artery without angina pectoris Assessment and Plan -Acute kidney injury superimposed on chronic kidney disease stage IV -initially improved after treatment with IV fluids, now worsening despite IV fluids, with decreased urine output. Kidney ultrasound was negative for obstruction. IV fluids as per nephrology, appreciate their input. BMP shows slightly improved BUN and creatinine this morning. -Abnormal UA -s/p TURP several weeks ago - initial urine culture grew staph epidermidis, repeat urine culture no growth, third urine culture no growth to date. -Wheezing on exam. Improved. Chest x-ray 07/15 was negative. Continue duo nebs. -Hematuria - likely d/t BPH recent surgery, f/u urology outpatient -Enterococcus faecalis bacteremia in one blood culture. Repeat blood culture was negative. 2-D echo without vegetation. Now on ampicillin by mouth per infectious disease. -Type 2 diabetes -decrease Levemir to 8 units subcutaneous at bedtime, and sliding scale insulin. -Coronary artery disease status post CABG, status post stent one month ago with Dr. Jenkins as per the patient - continue Eliquis, metoprolol, statin -Chronic systolic CHF with significant pedal edema- left ventricular ejection fraction 45%. Hold lasix and lisinopril due to GABBI. Continue metoprolol with holding parameters. SHANIA hose for the pedal edema. -BPH status post TURP several weeks ago - continue Flomax. -Chronic rash and posterior thighs, next the penis, belt line with white plaques - psoriasis? Continue steroid cream. He is on Diflucan per infectious disease as well. -Chest pain, resolved. Troponin was negative, EKG was negative. The patient reports she had a negative nuclear stress test 6 months ago. He is status post stent one month ago with Dr. Jenkins. -Cerebrovascular disease with history of stroke - continue Eliquis, statin. -Reported history of paroxysmal Atrial fibrillation - continue Eliquis, metoprolol. -With forced expiratory wheeze start scheduled DuoNeb's, check chest x-ray. -Fibromyalgia - continue Lyrica 75 mg decreased to renal dosing once daily. -Anemia of chronic kidney disease - follow CBC, continue iron supplementation. -History of gastric ulcer. Continue PPI. -Mary Jane rash perineum. cont nystatin cream. -DVT prophylaxis with Eliquis. Discharge Planning Problem Qualifiers (1) UTI (urinary tract infection): Qualified Codes: N39.0 - Urinary tract infection, site not specified; R31.9 - Hematuria, unspecified Patience Pacheco MD Jul 16, 2017 12:41
[2017-07-16] MEDS: SODIUM CHLOR 0.9% 1000 ML INJ 1,000 ML IV SCH (13:45)
--- NOTE | 2017-07-16 20:43 | HHI.NPPN ---
Subjective History of Present Illness 71-year-old male with a past medical history of hypertension, diabetes mellitus, chronic kidney disease, history of prostatic hypertrophy, ischemic heart disease, atrial fibrillation, hyperlipidemia, gout, chronic anemia, chronic obstructive pulmonary disease, came to the hospital with generalized weakness. I was called to see the patient because of elevated BUN and creatinine. The patient was admitted on July 02 and he had a creatinine of 3.4 on admission which improved to 1.7-1.8 and was stable until five days ago when it started going up and now it has gone up to 7.3. Additional Remarks Patient is alert, not fully oriented, not in distress. Review of Systems General Constitutional: Fatigue Cardiovascular Cardiac: PALACIOS Objective Data Data 07/16/17 07/17/17 18:59 06:59 Intake Total 2168 ml Output Total 2075 ml Balance 93 ml Intake Oral 1160 ml IV Total 1008 ml Output Urine Total 2075 ml Bladder Scan Volume Amount 0 ml 0 ml # Bowel Movements 1 Vital Signs Date Time Temp Pulse Resp B/P (MAP) Pulse Ox O2 Delivery O2 Flow Rate FiO2 07/16/17 14:45 16 07/16/17 12:00 96.9 79 20 145/60 (88) 97 07/16/17 10:00 98.8 102 18 134/73 (93) 92 07/16/17 09:53 18 07/16/17 08:00 97.0 75 20 140/62 (88) 95 07/16/17 04:13 07/16/17 00:03 98.3 85 20 133/89 (104) 96 -: 07/16/17 0643 07/16/17 0643 Physical Exam General Appearance: No Acute Distress, Comfortable Eyes Eye Exam: Pupils Equal Neck Neck Exam: Neck Supple Pulmonary Resp Exam: No Distress, Rhonchi, Decreased Bases, Diminished Breath Sounds Cardiology CV Exam: Regular, Normal Sinus Rhythm Gastrointestinal/Abdomen GI Exam: Soft, Non-Tender, Bowel Sounds Present, Distended Extremeties Extremities Exam: Trace Edema Neurologic Neuro Exam: Alert, Awake Psychiatric Psych Exam: Appropriate Responses Assessment/Plan Assessment Summary: GABBI/Acute Renal Failure, CKD Stage III Problem List: (1) Cerebrovascular disease ICD Codes: I67.9 - Cerebrovascular disease, unspecified (2) Generalized pain ICD Codes: R52 - Pain, unspecified (3) Type 2 diabetes mellitus ICD Codes: E11.9 - Type 2 diabetes mellitus without complications (4) Chronic systolic CHF (congestive heart failure) ICD Codes: I50.22 - Chronic systolic (congestive) heart failure (5) CKD (chronic kidney disease), stage IV ICD Codes: N18.4 - Chronic kidney disease, stage 4 (severe) (6) GABBI (acute kidney injury) ICD Codes: N17.9 - Acute kidney failure, unspecified Plan Patient has chronic kidney disease and baseline Creatinine is close to 1.7-1.8. Develop GABBI, possibly obstructive or pre renal. Started passing more urine after the Mansfield's catheter. Patient has some improvement in the Creatinine, now it is 6.8. K is normal, not eating well. Continue gentle Hydration. Encourage oral intake. Problem Qualifiers (1) Type 2 diabetes mellitus: Aleksandra Tillman MD Jul 16, 2017 20:43
[2017-07-16] MEDS: INSULIN DETEMIR 100 UNITS/ML VIAL SQ SCH (21:00)
[2017-07-16 21:13] VITALS: BP 143/84; PULSE 90; RESP 22; TEMP 99.3; O2SAT 92
[2017-07-16] MEDS: ATORVASTATIN 40 MG TAB PO SCH (21:16)
[2017-07-16] MEDS: TAMSULOSIN HCL 0.4 MG CAP PO SCH (21:17)
[2017-07-16 23:06] VITALS: O2SAT 98
[2017-07-17] VITALS (7 sets, daily range): BP systolic 108–140; BP diastolic 66–81; PULSE 85–101; RESP 18–24; TEMP 95.3–99.8; O2SAT 95–99
[2017-07-17] MEDS: LEVOTHYROXINE SODIUM 200 MCG TAB PO SCH (05:55)
[2017-07-17] MEDS: ACETAMINOPHEN/HYDROcodone 325 MG/5 MG TAB PO PRN ×2 (05:56→11:53)
[2017-07-17] MEDS: RESP: ALBUTEROL 2.5 MG/IPRATROPIUM 0.5 MG NEB (SCH) NEB ×3 (07:27→15:04)
[2017-07-17] MEDS: INSULIN ASPART SUPPLEMENTAL SCALE SQ SCH ×4 (08:20→20:45)
[2017-07-17] MEDS: MAGNESIUM OXIDE 400 MG TAB PO SCH (08:21)
[2017-07-17] MEDS: METOPROLOL TARTRATE 100 MG TAB PO SCH ×2 (08:21→20:44)
[2017-07-17] MEDS: FLUCONAZOLE 100 MG TAB PO SCH (08:21)
[2017-07-17] MEDS: PREGABALIN 75 MG CAP PO SCH (08:21)
[2017-07-17] MEDS: PANTOPRAZOLE SOD 20 MG DELAYED RELEASE TAB PO SCH (08:21)
[2017-07-17] MEDS: CALCITRIOL 0.25 MCG CAP PO SCH (08:21)
[2017-07-17] MEDS: FERROUS SULFATE 325 MG (65 MG ELEMENTAL IRON) TAB PO SCH ×2 (08:21→17:30)
[2017-07-17] MEDS: ISOSORBIDE MONONITRATE 60 MG TAB PO SCH (08:21)
[2017-07-17] MEDS: APIXABAN 5 MG TABLET PO SCH ×2 (08:22→20:45)
[2017-07-17] MEDS: LACTOBACILLUS ACIDOPHILUS TAB PO SCH ×2 (08:22→20:44)
[2017-07-17] MEDS: AMOXICILLIN (TRIHYDRATE) 500 MG CAP PO SCH ×2 (08:22→20:45)
[2017-07-17] MEDS: SODIUM CHLORIDE 0.9% FLUSH 10 ML FLUSH IV FLUSH SCH ×2 (08:23→20:48)
[2017-07-17] MEDS: DOCUSATE SODIUM 50 MG/SENNA 8.6 MG TAB PO SCH ×2 (08:24→20:45)
--- NOTE | 2017-07-17 08:59 | HHI.IDPN ---
Subjective Subjective Remarks pt sleepy in nad no fevers no complaints Antibiotics Ampicillin IV Lines Line sites with no e.o infection. Past Medical History reviewed Allergies: Coded Allergies: ciprofloxacin (Unverified Allergy, Severe, 07/02/17) diatrizoate meglumine (Unverified Allergy, Severe, 07/02/17) gadobenic acid (Unverified Allergy, Severe, 07/02/17) gadodiamide (Unverified Allergy, Severe, 07/02/17) gadoteridol (Unverified Allergy, Severe, 07/02/17) iodixanol (Unverified Allergy, Severe, 07/02/17) iohexol (Unverified Allergy, Severe, 07/02/17) levofloxacin (Unverified Allergy, Severe, 07/02/17) Objective . Vital Signs Date Time Temp Pulse Resp B/P (MAP) Pulse Ox O2 Delivery O2 Flow Rate FiO2 07/17/17 08:00 99.7 88 24 131/66 (87) 99 07/17/17 07:28 95 Nasal Cannula 2.00 07/17/17 04:03 07/17/17 00:04 98.9 88 24 140/79 (99) 95 07/16/17 23:06 98 Nasal Cannula 2.00 07/16/17 21:13 99.3 90 22 143/84 (103) 92 07/16/17 21:00 Nasal Cannula 2.00 07/16/17 14:45 16 07/16/17 12:00 96.9 79 20 145/60 (88) 97 07/16/17 10:00 98.8 102 18 134/73 (93) 92 07/16/17 09:53 18 07/17/17 07/17/17 07/18/17 15:00 23:00 07:00 Output Total 1100 ml Balance -1100 ml Output Urine Total 1100 ml # Bowel Movements 0 . Laboratory Tests Test 07/15/17 12:30 07/16/17 06:43 White Blood Count 9.3 TH/MM3 11.8 TH/MM3 Red Blood Count 2.84 MIL/MM3 2.77 MIL/MM3 Hemoglobin 8.5 GM/DL 8.4 GM/DL Hematocrit 25.3 % 24.6 % Mean Corpuscular Volume 88.9 FL 88.9 FL Mean Corpuscular Hemoglobin 29.9 PG 30.4 PG Mean Corpuscular Hemoglobin Concent 33.7 % 34.1 % Red Cell Distribution Width 12.3 % 12.2 % Platelet Count 376 TH/MM3 337 TH/MM3 Mean Platelet Volume 6.8 FL 7.1 FL Neutrophils (%) (Auto) 68.2 % 76.5 % Lymphocytes (%) (Auto) 15.3 % 10.2 % Monocytes (%) (Auto) 8.8 % 9.7 % Eosinophils (%) (Auto) 7.0 % 3.4 % Basophils (%) (Auto) 0.7 % 0.2 % Neutrophils # (Auto) 6.3 TH/MM3 9.1 TH/MM3 Lymphocytes # (Auto) 1.4 TH/MM3 1.2 TH/MM3 Monocytes # (Auto) 0.8 TH/MM3 1.1 TH/MM3 Eosinophils # (Auto) 0.7 TH/MM3 0.4 TH/MM3 Basophils # (Auto) 0.1 TH/MM3 0.0 TH/MM3 CBC Comment DIFF FINAL DIFF FINAL Differential Comment Laboratory Tests Test 07/15/17 12:30 07/16/17 06:43 07/16/17 11:20 Blood Urea Nitrogen 75 MG/DL 74 MG/DL Creatinine 7.30 MG/DL 6.80 MG/DL Random Glucose 130 MG/DL 116 MG/DL Calcium Level 7.8 MG/DL 8.4 MG/DL Sodium Level 139 MEQ/L 138 MEQ/L Potassium Level 4.9 MEQ/L 4.7 MEQ/L Chloride Level 109 MEQ/L 109 MEQ/L Carbon Dioxide Level 18.5 MEQ/L 17.9 MEQ/L Anion Gap 12 MEQ/L 11 MEQ/L Estimat Glomerular Filtration Rate 7 ML/MIN 8 ML/MIN Phosphorus Level 5.0 MG/DL Total Creatine Kinase 76 U/L Troponin I 0.05 NG/ML Imaging Last Impressions Abdomen/Pelvis CT 07/02/17 0000 Signed Impressions: Service Date/Time: Sunday, July 02, 2017 16:45 - CONCLUSION: 9-10 mm right kidney stone. No hydronephrosis. Otherwise benign focally unremarkable CT appearance of the abdomen and pelvis. Ashvin Pereira MD Physical Exam GENERAL: Obese, patient, in no apparent distress. SKIN: Chronic dermatitis rash on buttocks and posterior thighs - scratch peacock. IV site clean but bleeding HEAD: Atraumatic. Normocephalic. No temporal or scalp tenderness. EYES: Pupils equal round and reactive. Extraocular motions intact. No scleral icterus. No injection or drainage. ENT: Nose without bleeding, purulent drainage or septal hematoma. Throat without erythema, tonsillar hypertrophy or exudate. Uvula midline. Airway patent. NECK: Trachea midline. Supple, nontender, no meningeal signs. CARDIOVASCULAR: Regular rate and rhythm without murmurs, gallops, or rubs. RESPIRATORY: Clear to auscultation. Breath sounds equal bilaterally. No wheezes , rales, or rhonchi. GASTROINTESTINAL: Abdomen soft, non-tender, nondistended. No mass MUSCULOSKELETAL: Extremities without clubbing, cyanosis, or edema. No joint tenderness, effusion, or edema noted. No calf tenderness. Negative Homans sign bilaterally. NEUROLOGICAL: sleepy Assessment & Plan Remarks E.faecalis bacteremia transient. Echo negative Staph epidermidis UTI in a man. H/o TURP 3 weeks back H/o metzger cath 3 weeks back H/o Cardiac cath and stent few weeks back. H/o renal stones and renal stent in past. Acute on chronic renal failure. Recs; Repeat blood cultures- negative so far Stop Ampicillin IV . Start Ampicillin 500 mg bid Repeat Urine culture is negative Stool C diff- negative Fluconazole 100 mg po qd and Nystatin- triamcinolone cream for chronic rash on back of thighs. Worsening renal function- on IV fluids see script on chart fu 2 weeks Addis Peña Jul 17, 2017 08:59
[2017-07-17] MEDS: TIOTROPIUM BROMIDE 18 MCG INH INH SCH (09:48)
[2017-07-17 11:15] LABS: POTASSIUM 4.5 MEQ/L (3.5-5.1)
[2017-07-17 11:18] LABS: BICARBONATE 20.6 MEQ/L (21.0-32.0)
[2017-07-17] MEDS: NYSTATIN/TRIAMCINOLONE CREAM 15 GM TOPICAL SCH (12:00)
[2017-07-17] MEDS ORDERED: ACETAMINOPHEN/HYDROcodone 325 MG/7.5 MG TAB PO PRN (13:00)
--- NOTE | 2017-07-17 13:22 | HHI.PR ---
Subjective Remarks The patient is confused today. States that he feels "slow." He has been complaining of bilateral wrist pain to the nurse. He had 2 L urine output. Objective Vitals Vital Signs Date Time Temp Pulse Resp B/P (MAP) Pulse Ox O2 Delivery O2 Flow Rate FiO2 07/17/17 12:00 99.8 85 24 135/81 (99) 99 07/17/17 08:00 99.7 88 24 131/66 (87) 99 07/17/17 07:28 95 Nasal Cannula 2.00 07/17/17 04:03 07/17/17 00:04 98.9 88 24 140/79 (99) 95 07/16/17 23:06 98 Nasal Cannula 2.00 07/16/17 21:13 99.3 90 22 143/84 (103) 92 07/16/17 21:00 Nasal Cannula 2.00 07/16/17 14:45 16 I/O 07/16/17 07/16/17 07/16/17 07/17/17 07/17/17 07/17/17 07:00 15:00 23:00 07:00 15:00 23:00 Intake Total 504 ml 1254 ml 410 ml Output Total 1550 ml 1000 ml 1075 ml 1100 ml Balance -1046 ml 254 ml -665 ml -1100 ml Intake Oral 960 ml 200 ml IV Total 504 ml 294 ml 210 ml Output Urine Total 1550 ml 1000 ml 1075 ml 1100 ml Bladder Scan Volume Amount 0 ml 0 ml 0 ml # Bowel Movements 0 1 0 Result Diagram: 07/16/17 0643 07/17/17 1100 Objective Remarks GENERAL: Well-nourished, well-developed obese male patient. SKIN: Warm and dry. The patient has white plaques on bilateral fat pads next 2 penis as well as several on his belt line and posterior thighs with secondary excoriation on the posterior thighs. HEAD: Normocephalic. EYES: No scleral icterus. No injection or drainage. NECK: Supple, trachea midline. No JVD or lymphadenopathy. CARDIOVASCULAR: Regular rate and rhythm without murmurs, gallops, or rubs. RESPIRATORY: Breath sounds equal bilaterally. Forced expiratory wheeze. No accessory muscle use. No crackles. GASTROINTESTINAL: Abdomen soft, non-tender, nondistended. EXTREMITIES: 2+ pitting edema of the legs, 1+ of the upper thighs bilaterally. NEUROLOGICAL: Awake, alert, confused oriented to self only. A/P Problem List: (1) GABBI (acute kidney injury) ICD Code: N17.9 - Acute kidney failure, unspecified (2) CKD (chronic kidney disease), stage IV ICD Code: N18.4 - Chronic kidney disease, stage 4 (severe) (3) Type 2 diabetes mellitus ICD Code: E11.9 - Type 2 diabetes mellitus without complications (4) UTI (urinary tract infection) ICD Code: N39.0 - Urinary tract infection, site not specified Status: Acute (5) Weakness ICD Code: R53.1 - Weakness (6) Chronic systolic CHF (congestive heart failure) ICD Code: I50.22 - Chronic systolic (congestive) heart failure (7) Coronary artery disease ICD Code: I25.10 - Atherosclerotic heart disease of [place] coronary artery without angina pectoris Assessment and Plan -Acute kidney injury superimposed on chronic kidney disease stage IV -initially improved after treatment with IV fluids, then worsened with creatinine going up to 7. Improving with gentle IV fluids per nephrology. Creatinine is 4 today. Kidney ultrasound was negative for obstruction. IV fluids as per nephrology, appreciate their input. BMP shows slightly improved BUN and creatinine this morning. Patient will likely need diuresis as he has pedal edema to his thighs. -Abnormal UA -s/p TURP several weeks ago - initial urine culture grew staph epidermidis, repeat urine culture no growth, third urine culture no growth to date. -Wheezing on exam. Improved. Chest x-ray 07/15 was negative. Continue duo nebs. -Hematuria - likely d/t BPH recent surgery, f/u urology outpatient -Enterococcus faecalis bacteremia in one blood culture. Repeat blood culture was negative. 2-D echo without vegetation. Now on ampicillin by mouth per infectious disease. -Type 2 diabetes -decrease Levemir to 8 units subcutaneous at bedtime, and sliding scale insulin. -Coronary artery disease status post CABG, status post stent one month ago with Dr. Jenkins as per the patient - continue Eliquis, metoprolol, statin -Chronic systolic CHF with significant pedal edema- left ventricular ejection fraction 45%. Hold lasix and lisinopril due to GABBI. Continue metoprolol with holding parameters. SHANIA hose for the pedal edema. -BPH status post TURP several weeks ago - continue Flomax. -Chronic rash and posterior thighs, next the penis, belt line with white plaques - psoriasis? Continue steroid cream. He is on Diflucan per infectious disease as well. -Chest pain, resolved. Troponin was negative, EKG was negative. The patient reports she had a negative nuclear stress test 6 months ago. He is status post stent one month ago with Dr. Jenkins. Confusion, will hold Lortab. Reorient. - -Cerebrovascular disease with history of stroke - continue Eliquis, statin. -Reported history of paroxysmal Atrial fibrillation - continue Eliquis, metoprolol. -With forced expiratory wheeze start scheduled DuoNeb's, check chest x-ray. -Fibromyalgia - continue Lyrica 75 mg decreased to renal dosing once daily. -Anemia of chronic kidney disease - follow CBC, continue iron supplementation. -History of gastric ulcer. Continue PPI. -Mary Jane rash perineum. cont nystatin cream. -DVT prophylaxis with Eliquis. Discharge Planning Problem Qualifiers (1) UTI (urinary tract infection): Qualified Codes: N39.0 - Urinary tract infection, site not specified; R31.9 - Hematuria, unspecified Patience Pacheco MD Jul 17, 2017 13:22
[2017-07-17] MEDS: SODIUM CHLOR 0.9% 1000 ML INJ 1,000 ML IV SCH ×2 (14:08→15:24)
--- NOTE | 2017-07-17 15:41 | HHI.NPPN ---
Subjective History of Present Illness 71-year-old male with a past medical history of hypertension, diabetes mellitus, chronic kidney disease, history of prostatic hypertrophy, ischemic heart disease, atrial fibrillation, hyperlipidemia, gout, chronic anemia, chronic obstructive pulmonary disease, came to the hospital with generalized weakness. I was called to see the patient because of elevated BUN and creatinine. The patient was admitted on July 02 and he had a creatinine of 3.4 on admission which improved to 1.7-1.8 and was stable until five days ago when it started going up and now it has gone up to 7.3. Additional Remarks Patient is alert, not fully oriented, not in distress, not eating well. Review of Systems General Constitutional: Fatigue Cardiovascular Cardiac: PALACIOS Objective Data Data 07/17/17 07/18/17 19:00 07:00 Output Total 1100 ml Balance -1100 ml Output Urine Total 1100 ml # Bowel Movements 0 Vital Signs Date Time Temp Pulse Resp B/P (MAP) Pulse Ox O2 Delivery O2 Flow Rate FiO2 07/17/17 12:00 99.8 85 24 135/81 (99) 99 07/17/17 08:00 99.7 88 24 131/66 (87) 99 07/17/17 07:28 95 Nasal Cannula 2.00 07/17/17 04:03 07/17/17 00:04 98.9 88 24 140/79 (99) 95 07/16/17 23:06 98 Nasal Cannula 2.00 07/16/17 21:13 99.3 90 22 143/84 (103) 92 07/16/17 21:00 Nasal Cannula 2.00 -: 07/16/17 0643 07/17/17 1100 Physical Exam General Appearance: No Acute Distress, Comfortable Eyes Eye Exam: Pupils Equal Neck Neck Exam: Neck Supple Pulmonary Resp Exam: No Distress, Rhonchi, Decreased Bases, Diminished Breath Sounds Cardiology CV Exam: Regular, Normal Sinus Rhythm Gastrointestinal/Abdomen GI Exam: Soft, Non-Tender, Bowel Sounds Present, Distended Extremeties Extremities Exam: Trace Edema Neurologic Neuro Exam: Alert, Awake Psychiatric Psych Exam: Appropriate Responses Assessment/Plan Assessment Summary: GABBI/Acute Renal Failure, CKD Stage III Problem List: (1) Cerebrovascular disease ICD Codes: I67.9 - Cerebrovascular disease, unspecified (2) Generalized pain ICD Codes: R52 - Pain, unspecified (3) Type 2 diabetes mellitus ICD Codes: E11.9 - Type 2 diabetes mellitus without complications (4) Chronic systolic CHF (congestive heart failure) ICD Codes: I50.22 - Chronic systolic (congestive) heart failure (5) CKD (chronic kidney disease), stage IV ICD Codes: N18.4 - Chronic kidney disease, stage 4 (severe) (6) GABBI (acute kidney injury) ICD Codes: N17.9 - Acute kidney failure, unspecified Plan Patient has chronic kidney disease and baseline Creatinine is close to 1.7-1.8. Develop GABBI, possibly obstructive or pre renal. Started passing more urine after the Mansfield's catheter. Patient has some improvement in the Creatinine, now it is 4.7 Acidosis is also improving. K is normal, not eating well. Continue gentle Hydration. Encourage oral intake. Avoid Nephrotoxins, follow the urine out put and BMP. Problem Qualifiers (1) Type 2 diabetes mellitus: Aleksandra Tillman MD Jul 17, 2017 15:41
--- NOTE | 2017-07-17 15:54 | EKG ---
Date Performed: 07/16/2017 Time Performed: 10:37:09 PTAGE: 71 years EKG: Sinus rhythm LOW QRS VOLTAGE IN EXTREMITY LEADS Nonspecific ST-T wave changes BORDERLINE ECG PREVIOUS TRACING : 07/02/2017 16.15 DOCTOR: Gama Min Interpretating Date/Time 07/17/2017 15:52:44
[2017-07-17] MEDS: NITROGLYCERIN 0.3 MG SL 100 TABS/BTL SL PRN (20:44)
[2017-07-17] MEDS: TAMSULOSIN HCL 0.4 MG CAP PO SCH (20:44)
[2017-07-17] MEDS: ATORVASTATIN 40 MG TAB PO SCH (20:45)
[2017-07-17] MEDS: INSULIN DETEMIR 100 UNITS/ML VIAL SQ SCH (20:45)
[2017-07-17] MEDS: ACETAMINOPHEN 325 MG TAB PO PRN (20:46)
[2017-07-17] MEDS ORDERED: HALOPERIDOL LACTATE 5 MG/ML AMP IV PUSH ONE (21:00)
[2017-07-18] MEDS ORDERED: RESP: ALBUTEROL 2.5 MG/IPRATROPIUM 0.5 MG NEB (PRN) NEB (01:15)
[2017-07-18 01:25] VITALS: O2SAT 99
[2017-07-18] MEDS: LEVOTHYROXINE SODIUM 200 MCG TAB PO SCH (06:21)
[2017-07-18] MEDS: RESP: ALBUTEROL 2.5 MG/IPRATROPIUM 0.5 MG NEB (SCH) NEB ×4 (07:45→19:48)
[2017-07-18 08:00] VITALS: BP 120/52; PULSE 89; RESP 22; TEMP 98.4; O2SAT 98
[2017-07-18] MEDS: INSULIN ASPART SUPPLEMENTAL SCALE SQ SCH ×4 (08:00→21:00)
[2017-07-18] MEDS: PANTOPRAZOLE SOD 20 MG DELAYED RELEASE TAB PO SCH (08:08)
[2017-07-18] MEDS: PREGABALIN 75 MG CAP PO SCH (08:08)
[2017-07-18] MEDS: FERROUS SULFATE 325 MG (65 MG ELEMENTAL IRON) TAB PO SCH ×2 (08:09→17:08)
[2017-07-18] MEDS: CALCITRIOL 0.25 MCG CAP PO SCH (08:09)
[2017-07-18] MEDS: LACTOBACILLUS ACIDOPHILUS TAB PO SCH ×2 (08:09→21:50)
[2017-07-18] MEDS: MAGNESIUM OXIDE 400 MG TAB PO SCH (08:09)
[2017-07-18] MEDS: ISOSORBIDE MONONITRATE 60 MG TAB PO SCH (08:09)
[2017-07-18] MEDS: METOPROLOL TARTRATE 100 MG TAB PO SCH ×2 (08:09→21:52)
[2017-07-18] MEDS: AMOXICILLIN (TRIHYDRATE) 500 MG CAP PO SCH ×2 (08:09→21:52)
[2017-07-18] MEDS: TIOTROPIUM BROMIDE 18 MCG INH INH SCH (08:10)
[2017-07-18] MEDS: FLUCONAZOLE 100 MG TAB PO SCH (08:10)
[2017-07-18] MEDS: APIXABAN 5 MG TABLET PO SCH ×2 (08:10→21:51)
[2017-07-18] MEDS: SODIUM CHLORIDE 0.9% FLUSH 10 ML FLUSH IV FLUSH SCH ×2 (08:10→21:50)
[2017-07-18 08:43] LABS: AUTOMATED NEUTROPHIL # 10.1 TH/MM3 (1.8-7.7); BASOPHIL # 0.1 TH/MM3 (0-0.2); BASOPHIL % 0.5 % (0.0-2.0); EOSINOPHIL # 0.1 TH/MM3 (0-0.4); EOSINOPHIL % 0.7 % (0.0-4.0); HEMATOCRIT 24.1 % (39.0-51.0); HEMO FLAGS DIFF FINAL; LYMPH % 7.7 % (9.0-44.0); MEAN CORPUSCULAR HEMOGLOBIN 30.3 PG (27.0-34.0); MONO % 14.3 % (0.0-8.0); NEUT % 76.8 % (16.0-70.0); PLATELET COUNT 264 TH/MM3 (150-450); RED BLOOD COUNT 2.71 MIL/MM3 (4.50-5.90); RED CELL DISTRIBUTION WIDTH 12.5 % (11.6-17.2); WHITE BLOOD COUNT 13.2 TH/MM3 (4.0-11.0)
[2017-07-18 08:57] LABS: POTASSIUM 4.3 MEQ/L (3.5-5.1)
[2017-07-18 09:00] LABS: BICARBONATE 18.9 MEQ/L (21.0-32.0)
[2017-07-18] MEDS: DOCUSATE SODIUM 50 MG/SENNA 8.6 MG TAB PO SCH ×2 (09:00→21:50)
[2017-07-18] MEDS: ACETAMINOPHEN 325 MG TAB PO PRN (10:36)
[2017-07-18 12:00] VITALS: BP 108/55; PULSE 81; RESP 21; TEMP 98.1; O2SAT 95; O2SAT 99
[2017-07-18] MEDS: NYSTATIN/TRIAMCINOLONE CREAM 15 GM TOPICAL SCH ×3 (12:00→21:53)
--- NOTE | 2017-07-18 12:51 | HHI.PR ---
Subjective Remarks Patient remains confused, last night he was combative and spitting at the nurse and received 2 mg of Haldol IV. Patient not able to tell me his current location. He complains of 10 out of 10 pain in his left wrist and left elbow. Nurses noted that his left hand and forearm appear swollen today. Patient will not allow me to examine the wrist secondary to tenderness. He apparently is refusing IV fluids. The nurse states that the IV is flushing well on the arm and does not appear infiltrated. Objective Vitals Vital Signs Date Time Temp Pulse Resp B/P (MAP) Pulse Ox O2 Delivery O2 Flow Rate FiO2 07/18/17 12:00 95 Nasal Cannula 4.00 07/18/17 12:00 98.1 81 21 108/55 (72) 99 07/18/17 08:00 98.4 89 22 120/52 (74) 98 07/18/17 01:25 99 Nasal Cannula 2.00 07/17/17 20:00 95.3 101 18 108/74 (85) 95 07/17/17 19:18 95 21 07/17/17 16:00 98.3 94 24 137/76 (96) 98 I/O 07/17/17 07/17/17 07/17/17 07/18/17 07/18/17 07/18/17 07:00 15:00 23:00 07:00 15:00 23:00 Intake Total 864 ml 480 ml Output Total 1100 ml 1500 ml 1250 ml 750 ml Balance -1100 ml -636 ml -770 ml -750 ml Intake Oral 720 ml 480 ml IV Total 144 ml Output Urine Total 1100 ml 1500 ml 1250 ml 750 ml Bladder Scan Volume Amount 0 ml # Bowel Movements 0 0 0 Result Diagram: 07/18/1781907/18/17819 Objective Remarks GENERAL: Well-nourished, well-developed obese male patient. SKIN: Warm and dry. The patient has white plaques on bilateral fat pads next 2 penis as well as several on his belt line and posterior thighs with secondary excoriation on the posterior thighs. HEAD: Normocephalic. EYES: No scleral icterus. No injection or drainage. NECK: Supple, trachea midline. No JVD or lymphadenopathy. CARDIOVASCULAR: Regular rate and rhythm without murmurs, gallops, or rubs. RESPIRATORY: Breath sounds equal bilaterally. Forced expiratory wheeze. No accessory muscle use. No crackles. GASTROINTESTINAL: Abdomen soft, non-tender, nondistended. EXTREMITIES: 2+ pitting edema of the legs, 1+ of the upper thighs bilaterally. Patient's left hand and forearm are swollen without erythema. He will not allow me to palpate the hand or wrist. He has no tophi noted over the forearm or elbow. NEUROLOGICAL: Awake, alert, confused oriented to self only. A/P Problem List: (1) GABBI (acute kidney injury) ICD Code: N17.9 - Acute kidney failure, unspecified (2) CKD (chronic kidney disease), stage IV ICD Code: N18.4 - Chronic kidney disease, stage 4 (severe) (3) Type 2 diabetes mellitus ICD Code: E11.9 - Type 2 diabetes mellitus without complications (4) UTI (urinary tract infection) ICD Code: N39.0 - Urinary tract infection, site not specified Status: Acute (5) Weakness ICD Code: R53.1 - Weakness (6) Chronic systolic CHF (congestive heart failure) ICD Code: I50.22 - Chronic systolic (congestive) heart failure (7) Coronary artery disease ICD Code: I25.10 - Atherosclerotic heart disease of [place] coronary artery without angina pectoris (8) Acute renal failure ICD Code: N17.9 - Acute kidney failure, unspecified (9) Acute metabolic encephalopathy ICD Code: G93.41 - Metabolic encephalopathy (10) Generalized pain ICD Code: R52 - Pain, unspecified (11) Cerebrovascular disease ICD Code: I67.9 - Cerebrovascular disease, unspecified Assessment and Plan -Acute kidney injury superimposed on chronic kidney disease stage IV -initially improved after treatment with IV fluids, then worsened with creatinine going up to 7. Now improving again Improving with gentle IV fluids per nephrology. Creatinine is 4 today. Kidney ultrasound was negative for obstruction. IV fluids as per nephrology, appreciate their input. BMP shows slightly improved BUN and creatinine this morning. Patient will likely need diuresis as he has pedal edema to his thighs. Patient at this time is refusing further IV fluids. -Abnormal UA -s/p TURP several weeks ago - initial urine culture grew staph epidermidis, repeat urine culture no growth, third urine culture no growth to date. -Wheezing on exam. Improved. Chest x-ray 07/15 was negative. Continue duo nebs. -Hematuria - likely d/t BPH recent surgery, f/u urology outpatient -Enterococcus faecalis bacteremia in one blood culture. Repeat blood culture was negative. 2-D echo without vegetation. Now on ampicillin by mouth per infectious disease. -Type 2 diabetes -decrease Levemir to 8 units subcutaneous at bedtime, and sliding scale insulin. -Coronary artery disease status post CABG, status post stent one month ago with Dr. Jenkins as per the patient - continue Eliquis, metoprolol, statin -Chronic systolic CHF with significant pedal edema- left ventricular ejection fraction 45%. Hold lasix and lisinopril due to GABBI. Continue metoprolol with holding parameters. SHANIA hose for the pedal edema. -Left forearm and hand swelling and pain. The patient had been complaining of bilateral wrist pain throughout the hospitalization. Now he has edema of the left arm. IV site does not appear to be infiltrated. Recommend elevation. I will check a Doppler ultrasound to rule out DVT although he has been on Eliquis. Cannot rule out some component of gout in the wrist and elbow however his kidney function will not permit colchicine. -BPH status post TURP several weeks ago - continue Flomax. -Chronic rash and posterior thighs, next the penis, belt line with white plaques - psoriasis? Continue steroid cream. He is on Diflucan per infectious disease as well. -Chest pain, resolved. Troponin was negative, EKG was negative. The patient reports he had a negative nuclear stress test 6 months ago. He is status post stent one month ago with Dr. Jenkins. -Acute metabolic encephalopathy secondary to renal failure. Hold Lortab at this time. Continue reorientation. Check brain MRI. -Cerebrovascular disease with history of stroke - continue Eliquis, statin. -Reported history of paroxysmal Atrial fibrillation - continue Eliquis, metoprolol. -With forced expiratory wheeze start scheduled DuoNeb's, check chest x-ray. -Fibromyalgia - continue Lyrica 75 mg decreased to renal dosing once daily. -Anemia of chronic kidney disease - follow CBC, continue iron supplementation. -History of gastric ulcer. Continue PPI. -Mary Jane rash perineum. cont nystatin cream. -DVT prophylaxis with Eliquis. Discharge Planning Problem Qualifiers (1) Type 2 diabetes mellitus: (2) UTI (urinary tract infection): Qualified Codes: N39.0 - Urinary tract infection, site not specified; R31.9 - Hematuria, unspecified Patience Pacheco MD Jul 18, 2017 12:51
--- NOTE | 2017-07-18 14:00 | RADRPT ---
EXAM DATE/TIME: 07/18/2017 13:28 [facility] COMPARISON: No previous studies available for comparison. INDICATIONS : Left arm swelling and pain. MEDICAL HISTORY : Myocardial infarction. Congestive heart failure. Hypercholesterolemia. CVA. Head trauma. Coronary art karen disease. Chest pain. HTN. COPD. Ashtma. Sleep apnea. Renal disease. Renal calculi. UTI. Arthritis . Diabetes. Liver disease. Clotting problems. Anticoagulant therapy, Eliquis. SURGICAL HISTORY : CABG Tongue top cut off. Carpel tunnel. TURP. ENCOUNTER: Initial ACUITY: 4 - 6 days PAIN SCORE: 10/10 LOCATION: Left arm. FINDINGS: There is spontaneous flow documented in the brachial, basilic, axillary, and subclavian veins. The v essels are compressible and augmentation response is documented. No filling defects are seen. The f low is phasic with respiration. Direction of flow in the jugular vein is caudal. There is thrombus in the cephalic vein at the wrist which is occluded. CONCLUSION: 1. Occlusive thrombus in the cephalic vein at the wrist otherwise patent veins. Alessandro Ferrera MD on July 18, 2017 at 13:57 Board Certified Radiologist. This report was verified electronically.
[2017-07-18 16:00] VITALS: BP 124/99; PULSE 87; RESP 22; TEMP 97.6; O2SAT 99
[2017-07-18] MEDS: NITROGLYCERIN 0.3 MG SL 100 TABS/BTL SL PRN (18:01)
[2017-07-18 19:50] VITALS: O2SAT 95
[2017-07-18 20:00] VITALS: BP 129/62; PULSE 106; RESP 18; TEMP 100; O2SAT 93
[2017-07-18] MEDS: TAMSULOSIN HCL 0.4 MG CAP PO SCH (21:50)
[2017-07-18] MEDS: ATORVASTATIN 40 MG TAB PO SCH (21:50)
--- NOTE | 2017-07-18 22:17 | HHI.NPPN ---
Subjective History of Present Illness 71-year-old male with a past medical history of hypertension, diabetes mellitus, chronic kidney disease, history of prostatic hypertrophy, ischemic heart disease, atrial fibrillation, hyperlipidemia, gout, chronic anemia, chronic obstructive pulmonary disease, came to the hospital with generalized weakness. I was called to see the patient because of elevated BUN and creatinine. The patient was admitted on July 02 and he had a creatinine of 3.4 on admission which improved to 1.7-1.8 and was stable until five days ago when it started going up and now it has gone up to 7.3. Additional Remarks Patient is alert, not fully oriented, has been agitated off and on. Review of Systems General Constitutional: Fatigue Cardiovascular Cardiac: PALACIOS Objective Data Data 07/18/17 07/19/17 19:00 07:00 Output Total 1550 ml Balance -1550 ml Output Urine Total 1550 ml # Bowel Movements 0 Vital Signs Date Time Temp Pulse Resp B/P (MAP) Pulse Ox O2 Delivery O2 Flow Rate FiO2 07/18/17 20:00 100.0 106 18 129/62 (84) 93 07/18/17 19:50 95 Nasal Cannula 3.00 07/18/17 16:00 97.6 87 22 124/99 (107) 99 07/18/17 12:00 95 Nasal Cannula 4.00 07/18/17 12:00 98.1 81 21 108/55 (72) 99 07/18/17 08:00 98.4 89 22 120/52 (74) 98 07/18/17 01:25 99 Nasal Cannula 2.00 -: 07/18/17 0820 07/18/17 0820 Physical Exam General Appearance: No Acute Distress, Comfortable Eyes Eye Exam: Pupils Equal Neck Neck Exam: Neck Supple Pulmonary Resp Exam: No Distress, Rhonchi, Decreased Bases, Diminished Breath Sounds Cardiology CV Exam: Regular, Normal Sinus Rhythm Gastrointestinal/Abdomen GI Exam: Soft, Non-Tender, Bowel Sounds Present, Distended Extremeties Extremities Exam: Trace Edema Neurologic Neuro Exam: Alert, Awake Psychiatric Psych Exam: Appropriate Responses Assessment/Plan Assessment Summary: GABBI/Acute Renal Failure, CKD Stage III Problem List: (1) Cerebrovascular disease ICD Codes: I67.9 - Cerebrovascular disease, unspecified (2) Generalized pain ICD Codes: R52 - Pain, unspecified (3) Type 2 diabetes mellitus ICD Codes: E11.9 - Type 2 diabetes mellitus without complications (4) Chronic systolic CHF (congestive heart failure) ICD Codes: I50.22 - Chronic systolic (congestive) heart failure (5) CKD (chronic kidney disease), stage IV ICD Codes: N18.4 - Chronic kidney disease, stage 4 (severe) (6) GABBI (acute kidney injury) ICD Codes: N17.9 - Acute kidney failure, unspecified Plan Patient has chronic kidney disease and baseline Creatinine is close to 1.7-1.8. Develop GABBI, possibly obstructive or pre renal. Started passing more urine after the Mansfield's catheter. Patient has some improvement in the Creatinine, now it is 3.5, improving. Acidosis is also improving. K is normal, not eating well. Encourage oral intake. Avoid Nephrotoxins, follow the urine out put and BMP. U/S left arm noted, on Eliquis. Problem Qualifiers (1) Type 2 diabetes mellitus: Aleksandra Tillman MD Jul 18, 2017 22:17
[2017-07-19] VITALS: BP 134/60; PULSE 81; RESP 18; TEMP 99.8; O2SAT 98
[2017-07-19] MEDS: LEVOTHYROXINE SODIUM 200 MCG TAB PO SCH (05:46)
[2017-07-19] MEDS: ACETAMINOPHEN 325 MG TAB PO PRN (05:46)
[2017-07-19] MEDS: RESP: ALBUTEROL 2.5 MG/IPRATROPIUM 0.5 MG NEB (SCH) NEB ×2 (07:35→11:30)
[2017-07-19 07:42] VITALS: O2SAT 98
[2017-07-19] MEDS: INSULIN ASPART SUPPLEMENTAL SCALE SQ SCH ×4 (08:00→21:00)
[2017-07-19] MEDS: FLUCONAZOLE 100 MG TAB PO SCH (08:47)
[2017-07-19] MEDS: DOCUSATE SODIUM 50 MG/SENNA 8.6 MG TAB PO SCH ×2 (08:47→22:23)
[2017-07-19] MEDS: LACTOBACILLUS ACIDOPHILUS TAB PO SCH ×2 (08:47→22:22)
[2017-07-19] MEDS: FERROUS SULFATE 325 MG (65 MG ELEMENTAL IRON) TAB PO SCH ×2 (08:47→17:12)
[2017-07-19] MEDS: PANTOPRAZOLE SOD 20 MG DELAYED RELEASE TAB PO SCH (08:48)
[2017-07-19] MEDS: CALCITRIOL 0.25 MCG CAP PO SCH (08:48)
[2017-07-19] MEDS: PREGABALIN 75 MG CAP PO SCH (08:48)
[2017-07-19] MEDS: ISOSORBIDE MONONITRATE 60 MG TAB PO SCH (08:48)
[2017-07-19] MEDS: MAGNESIUM OXIDE 400 MG TAB PO SCH (08:48)
[2017-07-19] MEDS: TIOTROPIUM BROMIDE 18 MCG INH INH SCH (08:48)
[2017-07-19] MEDS: APIXABAN 5 MG TABLET PO SCH ×2 (08:48→22:22)
[2017-07-19] MEDS: METOPROLOL TARTRATE 100 MG TAB PO SCH ×2 (08:48→22:21)
[2017-07-19] MEDS: SODIUM CHLORIDE 0.9% FLUSH 10 ML FLUSH IV FLUSH SCH ×2 (08:49→22:24)
[2017-07-19] MEDS: NYSTATIN/TRIAMCINOLONE CREAM 15 GM TOPICAL SCH (08:50)
[2017-07-19 09:00] VITALS: BP 116/70; PULSE 70; RESP 22; TEMP 96.7; O2SAT 98
[2017-07-19] MEDS: AMOXICILLIN (TRIHYDRATE) 500 MG CAP PO SCH ×2 (09:04→22:21)
--- NOTE | 2017-07-19 09:16 | HHI.PR ---
Subjective Remarks Continues to complain of 10/10 pain in the left wrist. Remains confused. Objective Vitals Vital Signs Date Time Temp Pulse Resp B/P (MAP) Pulse Ox O2 Delivery O2 Flow Rate FiO2 07/19/17 09:00 96.7 70 22 116/70 (85) 98 07/19/17 07:42 98 Nasal Cannula 3.00 07/19/17 07:31 18 07/19/17 00:00 99.8 81 18 134/60 (84) 98 07/18/17 20:00 100.0 106 18 129/62 (84) 93 07/18/17 19:50 95 Nasal Cannula 3.00 07/18/17 16:00 97.6 87 22 124/99 (107) 99 07/18/17 12:00 95 Nasal Cannula 4.00 07/18/17 12:00 98.1 81 21 108/55 (72) 99 I/O 07/18/17 07/18/17 07/18/17 07/19/17 07/19/17 07/19/17 07:00 15:00 23:00 07:00 15:00 23:00 Intake Total 480 ml 240 ml Output Total 1250 ml 750 ml 800 ml 950 ml Balance -770 ml -750 ml -800 ml -710 ml Intake Oral 480 ml 240 ml Output Urine Total 1250 ml 750 ml 800 ml 950 ml # Bowel Movements 0 Result Diagram: 07/18/1781907/18/17 0820 Objective Remarks GENERAL: Well-nourished, well-developed obese male patient. SKIN: Warm and dry. The patient has white plaques on bilateral fat pads next 2 penis as well as several on his belt line and posterior thighs with secondary excoriation on the posterior thighs. HEAD: Normocephalic. EYES: No scleral icterus. No injection or drainage. NECK: Supple, trachea midline. No JVD or lymphadenopathy. CARDIOVASCULAR: Regular rate and rhythm without murmurs, gallops, or rubs. RESPIRATORY: Breath sounds equal bilaterally. Forced expiratory wheeze. No accessory muscle use. No crackles. GASTROINTESTINAL: Abdomen soft, non-tender, nondistended. EXTREMITIES: 2+ pitting edema of the legs, 1+ of the upper thighs bilaterally. Patient's left hand and forearm are swollen without erythema. He will not allow me to palpate the hand or wrist. He has no tophi noted over the forearm or elbow. NEUROLOGICAL: Awake, alert, confused oriented to self only. A/P Problem List: (1) GABBI (acute kidney injury) ICD Code: N17.9 - Acute kidney failure, unspecified (2) CKD (chronic kidney disease), stage IV ICD Code: N18.4 - Chronic kidney disease, stage 4 (severe) (3) Type 2 diabetes mellitus ICD Code: E11.9 - Type 2 diabetes mellitus without complications (4) UTI (urinary tract infection) ICD Code: N39.0 - Urinary tract infection, site not specified Status: Acute (5) Weakness ICD Code: R53.1 - Weakness (6) Chronic systolic CHF (congestive heart failure) ICD Code: I50.22 - Chronic systolic (congestive) heart failure (7) Coronary artery disease ICD Code: I25.10 - Atherosclerotic heart disease of [place] coronary artery without angina pectoris (8) Acute renal failure ICD Code: N17.9 - Acute kidney failure, unspecified (9) Acute metabolic encephalopathy ICD Code: G93.41 - Metabolic encephalopathy (10) Generalized pain ICD Code: R52 - Pain, unspecified (11) Cerebrovascular disease ICD Code: I67.9 - Cerebrovascular disease, unspecified Assessment and Plan -Acute kidney injury superimposed on chronic kidney disease stage IV -initially improved after treatment with IV fluids, then worsened with creatinine going up to 7. Now improving again Improving s/p IV fluids per nephrology. Creatinine is 4 today. Kidney ultrasound was negative for obstruction. BMP pending this morning. Patient will likely need diuresis as he has pedal edema to his thighs. -Enterococcus faecalis bacteremia in one blood culture. Repeat blood culture was negative. 2-D echo without vegetation. Now on ampicillin by mouth per infectious disease. -Acute metabolic encephalopathy secondary to renal failure. Hold Lortab at this time. Continue reorientation. Check brain MRI in this patient with h/o stroke. -Abnormal UA -s/p TURP several weeks ago - initial urine culture grew staph epidermidis, repeat urine culture no growth, third urine culture no growth to date. -Wheezing on exam. Improved. Chest x-ray 07/15 was negative. Continue duo nebs. -Hematuria - likely d/t BPH recent surgery, f/u urology outpatient -Type 2 diabetes -hold levemir, cont sliding scale insulin. -Coronary artery disease status post CABG, status post stent one month ago with Dr. Jenkins as per the patient - continue Eliquis, metoprolol, statin -Chronic systolic CHF with significant pedal edema- left ventricular ejection fraction 45%. Hold lasix and lisinopril due to GABBI. Continue metoprolol with holding parameters. SHANIA hose for the pedal edema. -Left forearm and hand swelling and pain due to superficial venous thrombosis ( cephalic vein) - add compresses, elevate, cont eliquis PO, change IV site to right arm. As he is still c/o excruciating pain, will start oxycodone 5 mg PO q 6 hr - watch for worsening confusion. -BPH status post TURP several weeks ago - continue Flomax. -Chronic rash and posterior thighs, next the penis, belt line with white plaques - psoriasis? Continue steroid cream. He is on Diflucan per infectious disease as well. -Chest pain, resolved. Troponin was negative, EKG was negative. The patient reports he had a negative nuclear stress test 6 months ago. He is status post stent one month ago with Dr. Jenkins. -Cerebrovascular disease with history of stroke - continue Eliquis, statin. -paroxysmal Atrial fibrillation - continue Eliquis, metoprolol. -With forced expiratory wheeze start scheduled DuoNeb's, check chest x-ray. -Fibromyalgia - continue Lyrica 75 mg decreased to renal dosing once daily. -Anemia of chronic kidney disease - follow CBC, continue iron supplementation. -History of gastric ulcer. Continue PPI. -Mary Jane rash perineum. cont nystatin cream. -DVT prophylaxis with Eliquis. Discharge Planning Problem Qualifiers (1) Type 2 diabetes mellitus: (2) UTI (urinary tract infection): Qualified Codes: N39.0 - Urinary tract infection, site not specified; R31.9 - Hematuria, unspecified Patience Pacheco MD Jul 19, 2017 09:16
[2017-07-19 09:20] LABS: AUTOMATED NEUTROPHIL # 7.7 TH/MM3 (1.8-7.7); BASOPHIL # 0.1 TH/MM3 (0-0.2); BASOPHIL % 0.5 % (0.0-2.0); EOSINOPHIL # 0.3 TH/MM3 (0-0.4); EOSINOPHIL % 2.5 % (0.0-4.0); HEMATOCRIT 22.4 % (39.0-51.0); HEMO FLAGS DIFF FINAL; LYMPHOCYTE # 1.2 TH/MM3 (1.0-4.8); MEAN CELL VOLUME 88.7 FL (80.0-100.0); MEAN CORPUSCULAR HEMOGLOBIN 29.8 PG (27.0-34.0); MEAN CORPUSCULAR HGB CONC 33.6 % (32.0-36.0); MONO % 13.6 % (0.0-8.0); NEUT % 72.4 % (16.0-70.0); PLATELET COUNT 236 TH/MM3 (150-450); RED BLOOD COUNT 2.53 MIL/MM3 (4.50-5.90); RED CELL DISTRIBUTION WIDTH 12.4 % (11.6-17.2); WHITE BLOOD COUNT 10.8 TH/MM3 (4.0-11.0)
[2017-07-19 09:58] LABS: POTASSIUM 4.4 MEQ/L (3.5-5.1)
[2017-07-19 10:05] LABS: BICARBONATE 20.4 MEQ/L (21.0-32.0)
--- NOTE | 2017-07-19 10:54 | HHI.NPPN ---
Subjective History of Present Illness 71-year-old male with a past medical history of hypertension, diabetes mellitus, chronic kidney disease, history of prostatic hypertrophy, ischemic heart disease, atrial fibrillation, hyperlipidemia, gout, chronic anemia, chronic obstructive pulmonary disease, came to the hospital with generalized weakness. I was called to see the patient because of elevated BUN and creatinine. The patient was admitted on July 02 and he had a creatinine of 3.4 on admission which improved to 1.7-1.8 and was stable until five days ago when it started going up and now it has gone up to 7.3. Additional Remarks Patient is alert, still off and on has confusion and agitation, sitting on chair. Review of Systems General Constitutional: Fatigue Cardiovascular Cardiac: PALACIOS Objective Data Data Vital Signs Date Time Temp Pulse Resp B/P (MAP) Pulse Ox O2 Delivery O2 Flow Rate FiO2 07/19/17 09:53 18 07/19/17 09:00 96.7 70 22 116/70 (85) 98 07/19/17 07:42 98 Nasal Cannula 3.00 07/19/17 07:31 18 07/19/17 00:00 99.8 81 18 134/60 (84) 98 07/18/17 20:00 100.0 106 18 129/62 (84) 93 07/18/17 19:50 95 Nasal Cannula 3.00 07/18/17 16:00 97.6 87 22 124/99 (107) 99 07/18/17 12:00 95 Nasal Cannula 4.00 07/18/17 12:00 98.1 81 21 108/55 (72) 99 -: 07/19/17 0836 07/19/17 0836 Physical Exam General Appearance: No Acute Distress, Comfortable Eyes Eye Exam: Pupils Equal Neck Neck Exam: Neck Supple Pulmonary Resp Exam: No Distress, Rhonchi, Decreased Bases, Diminished Breath Sounds Cardiology CV Exam: Regular, Normal Sinus Rhythm Gastrointestinal/Abdomen GI Exam: Soft, Non-Tender, Bowel Sounds Present, Distended Extremeties Extremities Exam: Trace Edema Neurologic Neuro Exam: Alert, Awake Psychiatric Psych Exam: Appropriate Responses Assessment/Plan Assessment Summary: GABBI/Acute Renal Failure, CKD Stage III Problem List: (1) Cerebrovascular disease ICD Codes: I67.9 - Cerebrovascular disease, unspecified (2) Generalized pain ICD Codes: R52 - Pain, unspecified (3) Type 2 diabetes mellitus ICD Codes: E11.9 - Type 2 diabetes mellitus without complications (4) Chronic systolic CHF (congestive heart failure) ICD Codes: I50.22 - Chronic systolic (congestive) heart failure (5) CKD (chronic kidney disease), stage IV ICD Codes: N18.4 - Chronic kidney disease, stage 4 (severe) (6) GABBI (acute kidney injury) ICD Codes: N17.9 - Acute kidney failure, unspecified Plan Patient has chronic kidney disease and baseline Creatinine is close to 1.7-1.8. Develop GABBI, possibly obstructive or pre renal. Started passing more urine after the Mansfield's catheter. Patient has some improvement in the Creatinine, now it is 2.9, improving. Acidosis is also improving. K is normal, not eating well. Avoid Nephrotoxins. U/S left arm noted, on Eliquis. Creatinine is improving towards his baseline. Encourage oral intake, he pulled the IV Cannula. Problem Qualifiers (1) Type 2 diabetes mellitus: Aleksandra Tillman MD Jul 19, 2017 10:54
--- NOTE | 2017-07-19 11:54 | RADRPT ---
EXAM DATE/TIME: 07/19/2017 11:05 [place] COMPARISON: CT BRAIN W/O CONTRAST, October 19, 2011, 12:28. INDICATIONS : Evaluate for cerebrovascular accident. RADIATION DOSE: 60.68 CTDIvol (mGy) MEDICAL HISTORY : Cerebrovascular disease. Chronic obstructive pulmonary disease. Myocardial infarction.Diabetes. Hype rtension. SURGICAL HISTORY : CABG ENCOUNTER: Initial ACUITY: 1 day PAIN SCALE: 0/10 LOCATION: cranial TECHNIQUE: Multiple contiguous axial images were obtained of the head. Using automated exposure control and adj ustment of the mA and/or kV according to patient size, radiation dose was kept as low as reasonably a chievable to obtain optimal diagnostic quality images. DICOM format image data is available electro nically for review and comparison. FINDINGS: CEREBRUM: The ventricles are normal for age. No evidence of midline shift, mass lesion, hemorrhage or acute in farction. No extra-axial fluid collections are seen. POSTERIOR FOSSA: The cerebellum and brainstem are intact. The 4th ventricle is midline. The cerebellopontine angle i s unremarkable. EXTRACRANIAL: The visualized portion of the orbits is intact. SKULL: The calvaria is intact. No evidence of skull fracture. CONCLUSION: Negative for an acute process. Troy Dominguez MD FACR on July 19, 2017 at 11:52 Board Certified Radiologist. This report was verified electronically.
[2017-07-19] MEDS: SODIUM CHLOR 0.9% 1000 ML INJ 1,000 ML IV SCH (13:46)
[2017-07-19 15:51] LABS: MYELOPEROXIDASE LESS THAN 1.0 AI (<1.0); PROTEINASE-3 LESS THAN 1.0 AI (<1.0)
[2017-07-19 20:00] VITALS: BP 129/70; PULSE 70; RESP 20; TEMP 96.7; O2SAT 99
[2017-07-19 20:09] VITALS: O2SAT 98
[2017-07-19] MEDS: ATORVASTATIN 40 MG TAB PO SCH (22:23)
[2017-07-19] MEDS: TAMSULOSIN HCL 0.4 MG CAP PO SCH (22:23)
[2017-07-20] VITALS: BP 130/84; PULSE 77; RESP 20; TEMP 96.7; O2SAT 99
[2017-07-20] MEDS: LEVOTHYROXINE SODIUM 200 MCG TAB PO SCH (05:00)
[2017-07-20 06:41] LABS: POTASSIUM 4.5 MEQ/L (3.5-5.1)
[2017-07-20 06:45] LABS: BICARBONATE 20.2 MEQ/L (21.0-32.0)
[2017-07-20 07:06] LABS: AUTOMATED NEUTROPHIL # 7.1 TH/MM3 (1.8-7.7); BASOPHIL % 0.4 % (0.0-2.0); EOSINOPHIL # 1.1 TH/MM3 (0-0.4); HEMATOCRIT 24.2 % (39.0-51.0); HEMO FLAGS DIFF FINAL; LYMPH % 12.5 % (9.0-44.0); LYMPHOCYTE # 1.3 TH/MM3 (1.0-4.8); MEAN CELL VOLUME 90.6 FL (80.0-100.0); MEAN CORPUSCULAR HEMOGLOBIN 29.4 PG (27.0-34.0); MEAN CORPUSCULAR HGB CONC 32.4 % (32.0-36.0); MONO % 11.7 % (0.0-8.0); NEUT % 65.4 % (16.0-70.0); PLATELET COUNT 319 TH/MM3 (150-450); RED BLOOD COUNT 2.67 MIL/MM3 (4.50-5.90); RED CELL DISTRIBUTION WIDTH 13.3 % (11.6-17.2); WHITE BLOOD COUNT 10.8 TH/MM3 (4.0-11.0)
[2017-07-20 08:00] VITALS: BP 142/79; PULSE 67; RESP 20; TEMP 96.9; O2SAT 99
[2017-07-20] MEDS: INSULIN ASPART SUPPLEMENTAL SCALE SQ SCH ×4 (08:00→20:58)
[2017-07-20] MEDS: METOPROLOL TARTRATE 100 MG TAB PO SCH ×2 (08:18→20:52)
[2017-07-20] MEDS: CALCITRIOL 0.25 MCG CAP PO SCH (08:18)
[2017-07-20] MEDS: APIXABAN 5 MG TABLET PO SCH ×2 (08:18→20:52)
[2017-07-20] MEDS: MAGNESIUM OXIDE 400 MG TAB PO SCH (08:19)
[2017-07-20] MEDS: PREGABALIN 75 MG CAP PO SCH (08:19)
[2017-07-20] MEDS: FLUCONAZOLE 100 MG TAB PO SCH (08:19)
[2017-07-20] MEDS: ISOSORBIDE MONONITRATE 60 MG TAB PO SCH (08:19)
[2017-07-20] MEDS: PANTOPRAZOLE SOD 20 MG DELAYED RELEASE TAB PO SCH (08:19)
[2017-07-20] MEDS: LACTOBACILLUS ACIDOPHILUS TAB PO SCH ×2 (08:19→20:52)
[2017-07-20] MEDS: DOCUSATE SODIUM 50 MG/SENNA 8.6 MG TAB PO SCH ×2 (08:19→20:52)
[2017-07-20] MEDS: FERROUS SULFATE 325 MG (65 MG ELEMENTAL IRON) TAB PO SCH ×2 (08:21→17:50)
[2017-07-20] MEDS: TIOTROPIUM BROMIDE 18 MCG INH INH SCH (08:24)
[2017-07-20] MEDS: SODIUM CHLORIDE 0.9% FLUSH 10 ML FLUSH IV FLUSH SCH ×2 (08:25→20:52)
[2017-07-20] MEDS: AMOXICILLIN (TRIHYDRATE) 500 MG CAP PO SCH ×2 (08:28→20:52)
[2017-07-20] MEDS: NYSTATIN/TRIAMCINOLONE CREAM 15 GM TOPICAL SCH ×2 (11:17)
--- NOTE | 2017-07-20 11:33 | HHI.PR ---
Subjective Remarks Confusion is improving. No suicidality expressed today. No suicidality on psychiatry evaluation. Renal function improves with a creatinine at 2.7 representing a GFR of 23. Objective Vital Signs Date Time Temp Pulse Resp B/P (MAP) Pulse Ox O2 Delivery O2 Flow Rate FiO2 07/20/17 09:55 18 07/20/17 09:55 18 07/20/17 08:00 96.9 67 20 142/79 (100) 99 07/20/17 00:00 96.7 77 20 130/84 (99) 99 07/19/17 20:09 98 Nasal Cannula 2.00 07/19/17 20:00 96.7 70 20 129/70 (89) 99 I/O 07/19/17 07/19/17 07/19/17 07/20/17 07/20/17 07/20/17 07:00 15:00 23:00 07:00 15:00 23:00 Intake Total 240 ml 60 ml 200 ml 480 ml Output Total 950 ml 800 ml 450 ml Balance -710 ml -740 ml 200 ml 30 ml Intake Oral 240 ml 60 ml 200 ml 480 ml Output Urine Total 950 ml 800 ml 450 ml Bladder Scan Volume Amount 0 ml # Bowel Movements 0 0 Result Diagram: 07/20/17 0450 07/20/17 0450 Objective Remarks GENERAL: NAD, A&Ox3 HEAD: Normocephalic. NECK: Supple, trachea midline. No lymphadenopathy. EYES: No scleral icterus. No injection or drainage. CARDIOVASCULAR: Regular rate and rhythm without murmurs, gallops, or rubs. RESPIRATORY: Breath sounds equal bilaterally. No accessory muscle use. GASTROINTESTINAL: Abdomen soft, non-tender, nondistended. MUSCULOSKELETAL: No cyanosis, or edema. SKIN: Warm and dry. NEURO: No focal neurological deficitis. A/P Problem List: (1) Acute metabolic encephalopathy ICD Code: G93.41 - Metabolic encephalopathy (2) Acute renal failure ICD Code: N17.9 - Acute kidney failure, unspecified (3) Weakness ICD Code: R53.1 - Weakness (4) GABBI (acute kidney injury) ICD Code: N17.9 - Acute kidney failure, unspecified (5) CKD (chronic kidney disease), stage IV ICD Code: N18.4 - Chronic kidney disease, stage 4 (severe) (6) Type 2 diabetes mellitus ICD Code: E11.9 - Type 2 diabetes mellitus without complications (7) Acute on chronic renal insufficiency ICD Code: N28.9 - Disorder of kidney and ureter, unspecified; N18.9 - Chronic kidney disease, unspecified Status: Acute Assessment and Plan Assessment and Plan 71-year-old male admitted secondary to acute renal failure on chronic kidney disease stage IV and bacteremia with encephalopathy. Acute kidney injury Acute renal failure Chronic kidney disease stage IV Acute kidney injury/acute renal failure continues to improve Continue to follow renal function Nephrology following Enterococcus faecalis bacteremia Continue ampicillin ID following Acute metabolic encephalopathy Improving Patient's mental status is nearing baseline Hematuria BPH Recent TURP Follow as an outpatient with urology Continue Flomax Diabetes mellitus type 2 Follow blood sugars Insulin sliding scale Diabetic diet Coronary artery disease History of CABG Status post coronary stent one month ago Continue Eliquis Continue metoprolol Continue statin Follow-up with cardiology as an outpatient Chronic systolic CHF Pedal edema Estimated EF is 45% based on last echo Continue metoprolol Continue SHANIA hose Follow clinically for any fluid overload Left forearm pain Superficial venous thrombus (cephalic vein) Edema improved Compresses as needed Elevate arm Continue Eliquis Continue pain treatments as needed Chronic rash Possible psoriasis Continue Diflucan Continue topical steroid History of CVA Continue statin Continue Eliquis Follow clinically Paroxysmal A. fib Continue Eliquis Continue metoprolol Follow clinically Fibromyalgia Continue Lyrica History of gastric ulcer Continue PPI DVT prophylaxis Eliquis Problem Qualifiers (1) Type 2 diabetes mellitus: Adan Lam MD Jul 20, 2017 11:33
--- NOTE | 2017-07-20 12:13 | PD.PSY.CON ---
Provisional Diagnosis Admission Date Jul 02, 2017 at 19:01 [place]. Adjustment disorder with depressed mood History of Present Illness Service Psychiatry Consult Requested By Reason for Consult Suicidal statement Primary Care Physician Troy Crowder, HPI The patient is a 71-year-old, single, unemployed, supported by [facility], domiciled alone, with psychiatric history of anxiety and depression, previous suicidal attempts, no previous Hospitalizations, with extensive medical history of BPH, chronic kidney disease, congestive heart failure, who admitted secondary to acute renal failure on chronic kidney disease stage IV and bacteremia with encephalopathy. Suited to psychiatry due to suicidal ideation. On psychiatric evaluation patient is found eating his breakfast. Patient is calm, but irritable, oppositional and resistant to the evaluation. Patient says that he does not need t see a psychiatrist. He says that he had enough of psychiatrist in the past. Patient says that he has history of depression and anxiety, he has been psychotropics but he stopped himself "because they do not help". Patient denies depressive symptoms, he says that yesterday he was frustrated and anxious due to his underlying medical conditions and his poor communication with staff and medical team "and I just said that I want to to cry help, but actually I dont want to ". At this moment the patient's denies hopelessness, anhedonia, helplessness, suicidal ideation, homicidal ideation, visual and auditory hallucinations. Patient is able to to contract for safety in the hospital. His logical, coherent and relevant. Oriented 3, no attention deficit present, no fluctuation of consciousness. Denies the use of alcohol and illicit drugs in the last 10 years. Review of Systems Constitutional: DENIES: Diaphoretic episodes, Fatigue, Fever, Weight gain, Weight loss, Chills, Dizziness, Change in appetite, Night Sweats Endocrine: DENIES: Heat/cold intolerance, Polydipsia, Polyuria, Polyphagia Eyes: DENIES: Blurred vision, Diplopia, Eye inflammation, Eye pain, Vision loss , Photosensitivity, Double Vision Ears, nose, mouth, throat: DENIES: Tinnitus, Hearing loss, Vertigo, Nasal discharge, Oral lesions, Throat pain, Hoarseness, Ear Pain, Running Nose, Epistaxis, Sinus Pain, Toothache, Odynophagia Respiratory: COMPLAINS OF: Cough, Shortness of breath, DENIES: Apneas, Snoring , Wheezing, Hemoptysis, Sputum production Cardiovascular: DENIES: Chest pain, Palpitations, Syncope, Dyspnea on Exertion , PND, Lower Extremity Edema, Orthopnea, Claudication Gastrointestinal: DENIES: Abdominal pain, Black stools, Bloody stools, Constipation, Diarrhea, Nausea, Vomiting, Difficulty Swallowing, Anorexia Musculoskeletal: DENIES: Joint pain, Muscle aches, Stiffness, Joint Swelling, Back pain, Neck pain Hematologic/lymphatic: DENIES: Bruising, Lymphadenopathy Immunologic/allergic: DENIES: Eczema, Urticaria Neurologic: DENIES: Abnormal gait, Headache, Localized weakness, Paresthesias, Seizures, Speech Problems, Tremor, Poor Balance Psychiatric: DENIES: Anxiety, Confusion, Mood changes, Depression, Hallucinations, Agitation, Suicidal Ideation, Homicidal Ideation, Delusions Past Family Social History Coded Allergies: ciprofloxacin (Unverified Allergy, Severe, 07/02/17) diatrizoate meglumine (Unverified Allergy, Severe, 07/02/17) gadobenic acid (Unverified Allergy, Severe, 07/02/17) gadodiamide (Unverified Allergy, Severe, 07/02/17) gadoteridol (Unverified Allergy, Severe, 07/02/17) iodixanol (Unverified Allergy, Severe, 07/02/17) iohexol (Unverified Allergy, Severe, 07/02/17) levofloxacin (Unverified Allergy, Severe, 07/02/17) Active Scripts Furosemide (Lasix) 20 Mg Tab, 20 MG PO DAILY for edema, #30 TAB 0 Refills Prov:Patience Pacheco MD 07/08/17 Pregabalin (Lyrica) 25 Mg Cap, 75 MG PO BID for neuropathy, #60 CAP Prov:Patience Pacheco MD 07/08/17 Metoprolol Tartrate (Lopressor) 50 Mg Tab, 100 MG PO BID for Blood Pressure Management, #60 TAB Prov:Patience Pacheco MD 07/08/17 Reported Medications Omeprazole (Omeprazole) 20 Mg Tab, 20 MG PO BID, #30 TAB 0 Refills 07/02/17 Pregabalin (Lyrica) 25 Mg Cap, 25 MG PO BID, #60 CAP 0 Refills 07/02/17 Metoprolol Tartrate (Lopressor) 50 Mg Tab, 50 MG PO BID, #60 TAB 0 Refills 07/02/17 Ferrous Sulfate (Ferrous Sulfate) 325 Mg (65 Mg Iron) Tablet, 325 MG PO BIDPC for Nutritional Supplement, #60 TAB 0 Refills 07/02/17 Apixaban (Eliquis) 5 Mg Tab, 5 MG PO BID for Blood Clot Prevention, #60 TAB 0 Refills 07/02/17 B-Complex W/ C & E + Zn (Stress B/Zinc) 1 Tab, 1 TAB PO DAILY 07/02/17 Docusate Sodium (Docusate Sodium) 100 Mg Tab, 100 MG PO BID, TAB 07/02/17 Tamsulosin (Tamsulosin) 0.4 Mg Cap, 0.4 MG PO HS for Manage Prostate Problems, # 30 CAP 0 Refills 07/02/17 Tiotropium Inh (Spiriva Handihaler) 18 Mcg Cap, 18 MCG INH DAILY for COPD, #30 CAP 0 Refills 1 capsule = 18 mcg 07/02/17 Pioglitazone (Pioglitazone) 45 Mg Tab, 45 MG PO DAILY for Blood Sugar Management , #30 TAB 0 Refills 07/02/17 Magnesium Oxide (Magnesium Oxide) 400 Mg Tab, 400 MG PO DAILY for Nutritional Supplement, TAB 0 Refills 07/02/17 Levothyroxine (Levothyroxine) 200 Mcg Tab, 200 MCG PO DAILY for Thyroid, #30 TAB 0 Refills 07/02/17 Insulin Glargine Inj (Lantus Solostar Pen Inj) 300 Unit/3 Ml Pen, 12 UNITS SQ HS NEB for Blood Sugar Management, PEN 0 Refills 07/02/17 Isosorbide Mononitrate ER (Isosorbide Mononitrate ER) 60 Mg Tab, 60 MG PO DAILY for Prevent Chest Pain, #30 TAB 0 Refills 07/02/17 Furosemide (Furosemide) 40 Mg Tab, 40 MG PO DAILY, #30 TAB 0 Refills 07/02/17 Calcium Carbonate (Antacid) (Calcium Carbonate (Antacid)) 500 Mg Chew, 500 MG CHEW DAILY Y for HEARTBURN, TAB 0 Refills 07/02/17 Atorvastatin (Atorvastatin) 40 Mg Tab, 40 MG PO HS for Cholesterol Management, # 30 TAB 0 Refills 07/02/17 Calcitriol (Calcitriol) 0.25 Mcg Cap, 0.25 MCG PO DAILY for Calcium Supplement, #30 CAP 0 Refills 07/02/17 Current Medications Medications (Trade) Dose Ordered Sig/Domingo Route Start Time Stop Time Status Last Admin (Lipitor) 40 mg HS PO 07/02/17 21:00 07/19/17 22:23 (Rocaltrol) 0.25 mcg DAILY PO 07/03/17 09:00 07/20/17 08:18 (Tums Chew) 500 mg DAILY PRN CHEW 07/02/17 19:00 07/03/17 09:10 (Ferrous Sulfate) 325 mg BIDPC PO 07/03/17 09:00 07/20/17 08:21 (Imdur) 60 mg DAILY PO 07/03/17 09:00 07/20/17 08:19 (Synthroid) 200 mcg DAILY@0600 PO 07/03/17 06:00 07/20/17 05:00 (Mag-Ox) 400 mg DAILY PO 07/03/17 09:00 07/20/17 08:19 (Spiriva Inh) 18 mcg DAILY INH 07/03/17 09:00 07/20/17 08:24 (D50w (Vial) Inj) 50 ml UNSCH PRN IV 07/02/17 19:00 (Glucagon Inj) 1 mg UNSCH PRN OTHER 07/02/17 19:00 (NovoLOG SUPPLEMENTAL SCALE) 1 ACHS SLIDING SCALE SQ 07/02/17 21:00 07/20/17 11:56 (NS Flush) 2 ml UNSCH PRN IV FLUSH 07/02/17 19:00 (NS Flush) 2 ml BID IV FLUSH 07/02/17 21:00 07/20/17 08:25 (Tylenol) 650 mg Q4H PRN PO 07/02/17 19:00 07/19/17 05:46 (Zofran Inj) 4 mg Q6H PRN IVP 07/02/17 19:00 (Narcan Inj) 0.4 mg UNSCH PRN IV 07/02/17 19:00 (Nicolle-Colace) 1 tab BID PO 07/02/17 21:00 07/20/17 08:19 (Milk Of Magnesia Liq) 30 ml Q12H PRN PO 07/02/17 19:00 07/03/17 09:09 (Senokot) 17.2 mg Q12H PRN PO 07/02/17 19:00 (Dulcolax Supp) 10 mg DAILY PRN RECTAL 07/02/17 19:00 (Lactulose Liq) 30 ml DAILY PRN PO 07/02/17 19:00 07/03/17 09:09 (Flomax) 0.4 mg HS PO 07/03/17 21:47 07/19/17 22:23 (Lasix) 20 mg DAILY PO 07/09/17 09:00 Future Hold 07/13/17 10:25 (Nitrostat Sl) 0.3 mg Q5M PRN SL 07/10/17 01:15 07/18/17 18:01 (Prinivil) 2.5 mg DAILY PO 07/10/17 11:00 Future Hold 07/14/17 09:28 (Pill Splitter) 1 ea UNSCH PRN OTHER 07/10/17 10:45 (Lasix) 40 mg DAILY PO 07/13/17 09:00 Future Hold 07/13/17 10:24 (Lactinex) 1 tab Q12HR PO 07/13/17 09:00 07/20/17 08:19 (Mycolog Ii Cream) 1 applic Q12H TOPICAL 07/14/17 12:00 07/20/17 11:17 (Trimox) 500 mg Q12HR PO 07/14/17 21:00 07/20/17 08:28 (Lopressor) 100 mg BID PO 07/14/17 21:00 07/20/17 08:18 (Lyrica) 75 mg DAILY PO 07/16/17 09:00 07/20/17 08:19 (Diflucan) 50 mg DAILY PO 07/16/17 09:00 07/20/17 08:19 (Eliquis) 2.5 mg BID PO 07/15/17 21:00 07/20/17 08:18 (Protonix) 20 mg DAILY PO 07/16/17 09:00 07/20/17 08:19 Sodium Chloride 1,000 ml @ 42 mls/hr [id number] IV 07/15/17 14:30 07/17/17 15:24 (Duoneb Neb) 1 ampule Q2HR NEB PRN NEB 07/18/17 01:15 07/18/17 01:22 (Roxicodone) 5 mg Q4H PRN PO 07/20/17 10:30 (Roxicodone) 10 mg Q4H PRN PO 07/20/17 10:30 07/20/17 11:14 Family History Patient denies family psychiatric history Social History Patient was born and raised in [place], lives alone in [place], single, unemployed, on SSI Physical Exam Vital Signs Vital Signs Date Time Temp Pulse Resp B/P (MAP) Pulse Ox O2 Delivery O2 Flow Rate FiO2 07/20/17 09:55 18 07/20/17 08:00 96.9 67 142/79 (100) 99 07/19/17 20:09 Nasal Cannula 2.00 07/17/17 19:18 21 I/O 07/20/17 07/20/17 07/21/17 08:00 16:00 00:00 Intake Total 680 ml Output Total 450 ml Balance 230 ml Lab Results Test 07/20/17 04:50 White Blood Count 10.8 TH/MM3 Red Blood Count 2.67 MIL/MM3 Hemoglobin 7.9 GM/DL Hematocrit 24.2 % Mean Corpuscular Volume 90.6 FL Mean Corpuscular Hemoglobin 29.4 PG Mean Corpuscular Hemoglobin Concent 32.4 % Red Cell Distribution Width 13.3 % Platelet Count 319 TH/MM3 Mean Platelet Volume 8.1 FL Neutrophils (%) (Auto) 65.4 % Lymphocytes (%) (Auto) 12.5 % Monocytes (%) (Auto) 11.7 % Eosinophils (%) (Auto) 10.0 % Basophils (%) (Auto) 0.4 % Neutrophils # (Auto) 7.1 TH/MM3 Lymphocytes # (Auto) 1.3 TH/MM3 Monocytes # (Auto) 1.3 TH/MM3 Eosinophils # (Auto) 1.1 TH/MM3 Basophils # (Auto) 0.0 TH/MM3 CBC Comment DIFF FINAL Differential Comment Blood Urea Nitrogen 55 MG/DL Creatinine 2.70 MG/DL Random Glucose 135 MG/DL Calcium Level 8.6 MG/DL Sodium Level 135 MEQ/L Potassium Level 4.5 MEQ/L Chloride Level 106 MEQ/L Carbon Dioxide Level 20.2 MEQ/L Anion Gap 9 MEQ/L Estimat Glomerular Filtration Rate 23 ML/MIN Date/Time Source Procedure Growth Status 07/08/17 22:00 Blood Peripheral Aerobic Blood Culture - Final NO GROWTH IN 5 DAYS Complete 07/08/17 22:00 Blood Peripheral Anaerobic Blood Culture - Final NO GROWTH IN 5 DAYS Complete 07/12/17 03:21 Urine Clean Catch Urine Culture - Final NO GROWTH IN 48 HOURS. Complete Mental Status Examination Appearance Overweight man, with marked difficulty breathing, poorly cooperative, oppositional Speech: Hesitant Orientation: x3 Memory: Unremarkable Thought Process: Logical Thought Content: Unremarkable Hallucination Type: None Suicidal Ideation: No Previous Suicide Attempts: No Homicidal Ideation: No Previous Homicide Attempts: No Judgment: Impulsive Affect: Irritable Mood: Angry Motor Activity: Normal gait Assessment & Plan Problem List: (1) Adjustment disorder with depressed mood ICD Codes: F43.21 - Adjustment disorder with depressed mood Assessment & Plan: On psychiatric evaluation today the patient is oppositional and resistant, refuses to cooperate with psychiatry. He denies depressive symptoms, he denies anxiety, he denies perceptual disturbances. Patient during active suicidal ideation, homicidal ideation, visual or auditory hallucinations. Patient is oriented 3. Patient reports that yesterday he was just upset and frustrated due to "issues with communication with primary medical team". But, at this moment he was able to contract for safety in the hospital. Patient refuses psychotropics. He does not meet criteria for psychiatric admission. Extensive support, motivation and psychoeducation provided. Patient is psychiatrically stable to continue medical care. Assessment & Plan Estimated LOS: Freddy Olivas MD Jul 20, 2017 12:13
[2017-07-20] MEDS: SODIUM CHLOR 0.9% 1000 ML INJ 1,000 ML IV SCH (12:14)
--- NOTE | 2017-07-20 15:47 | HHI.NPPN ---
Subjective History of Present Illness 71-year-old male with a past medical history of hypertension, diabetes mellitus, chronic kidney disease, history of prostatic hypertrophy, ischemic heart disease, atrial fibrillation, hyperlipidemia, gout, chronic anemia, chronic obstructive pulmonary disease, came to the hospital with generalized weakness. I was called to see the patient because of elevated BUN and creatinine. The patient was admitted on July 02 and he had a creatinine of 3.4 on admission which improved to 1.7-1.8 and was stable until five days ago when it started going up and now it has gone up to 7.3. Additional Remarks Patient is alert, confusion is better, sen with his sister at bed side. Review of Systems General Constitutional: Fatigue Cardiovascular Cardiac: PALACIOS Objective Data Data 07/20/17 07/21/17 19:00 07:00 Intake Total 1380 ml Output Total 875 ml Balance 505 ml Intake Oral 1380 ml Output Urine Total 875 ml # Bowel Movements 0 Vital Signs Date Time Temp Pulse Resp B/P (MAP) Pulse Ox O2 Delivery O2 Flow Rate FiO2 07/20/17 12:14 18 07/20/17 09:55 18 07/20/17 09:55 18 07/20/17 08:00 96.9 67 20 142/79 (100) 99 07/20/17 00:00 96.7 77 20 130/84 (99) 99 07/19/17 20:09 98 Nasal Cannula 2.00 07/19/17 20:00 96.7 70 20 129/70 (89) 99 -: 07/20/17 0450 07/20/17 0450 Physical Exam General Appearance: No Acute Distress, Comfortable Eyes Eye Exam: Pupils Equal Neck Neck Exam: Neck Supple Pulmonary Resp Exam: No Distress, Rhonchi, Decreased Bases, Diminished Breath Sounds Cardiology CV Exam: Regular, Normal Sinus Rhythm Gastrointestinal/Abdomen GI Exam: Soft, Non-Tender, Bowel Sounds Present, Distended Extremeties Extremities Exam: Trace Edema Neurologic Neuro Exam: Alert, Awake Psychiatric Psych Exam: Appropriate Responses Assessment/Plan Assessment Summary: GABBI/Acute Renal Failure, CKD Stage III Problem List: (1) Cerebrovascular disease ICD Codes: I67.9 - Cerebrovascular disease, unspecified (2) Generalized pain ICD Codes: R52 - Pain, unspecified (3) Type 2 diabetes mellitus ICD Codes: E11.9 - Type 2 diabetes mellitus without complications (4) Chronic systolic CHF (congestive heart failure) ICD Codes: I50.22 - Chronic systolic (congestive) heart failure (5) CKD (chronic kidney disease), stage IV ICD Codes: N18.4 - Chronic kidney disease, stage 4 (severe) (6) GABBI (acute kidney injury) ICD Codes: N17.9 - Acute kidney failure, unspecified Plan Patient has chronic kidney disease and baseline Creatinine is close to 1.7-1.8. Develop GABBI, possibly obstructive or pre renal. Started passing more urine after the Mansfield's catheter. Patient has some improvement in the Creatinine, now it is 2.7, improving. Acidosis is also improving. K is normal, not eating well. Avoid Nephrotoxins. U/S left arm noted, on Eliquis. Creatinine is improving towards his baseline. Encourage oral intake, D/W the sister at bed side. Problem Qualifiers (1) Type 2 diabetes mellitus: Aleksandra Tillman MD Jul 20, 2017 15:47
[2017-07-20 20:00] VITALS: BP 97/66; PULSE 68; RESP 20; TEMP 97; O2SAT 96
[2017-07-20] MEDS: ATORVASTATIN 40 MG TAB PO SCH (20:52)
[2017-07-20] MEDS: TAMSULOSIN HCL 0.4 MG CAP PO SCH (20:52)
[2017-07-20 21:25] VITALS: O2SAT 95
--- NOTE | 2017-07-20 21:47 | MG ---
cc: SHAE SANDOVAL Lab No: [id number] Date: 07/20/17 Age: 71 Sex: M Race: Wheezing, oxycodone, sleep apnea, renal disease, head trauma, asthma, Lyrica. DESCRIPTION A diffuse 7 Hz slowing is seen at 60 microvolts. The recording including overall is synchronous and symmetric. Some bitemporal muscle artifact is noted. No hemisphere asymmetry is seen. No epileptiform or seizure activity is noted. Photic stimulation was performed without significant posterior driving. IMPRESSION Mild diffuse theta slowing consistent with a mild diffuse encephalopathy but no focal abnormalities noted. No seizure activity was seen. MD LINDA Ziegler/PAM /9:16 PM /9:40 PM
[2017-07-21] VITALS (11 sets, daily range): BP systolic 107–139; BP diastolic 61–83; PULSE 63–75; RESP 17–20; TEMP 96.9–98.6; O2SAT 91–100
[2017-07-21] MEDS: LEVOTHYROXINE SODIUM 200 MCG TAB PO SCH (05:44)
[2017-07-21 06:18] LABS: AUTOMATED NEUTROPHIL # 6.8 TH/MM3 (1.8-7.7); BASOPHIL # 0.1 TH/MM3 (0-0.2); BASOPHIL % 0.6 % (0.0-2.0); EOSINOPHIL # 0.6 TH/MM3 (0-0.4); EOSINOPHIL % 5.9 % (0.0-4.0); HEMATOCRIT 23.1 % (39.0-51.0); HEMO FLAGS DIFF FINAL; LYMPH % 13.3 % (9.0-44.0); LYMPHOCYTE # 1.4 TH/MM3 (1.0-4.8); MEAN CELL VOLUME 88.8 FL (80.0-100.0); MEAN CORPUSCULAR HEMOGLOBIN 29.7 PG (27.0-34.0); MEAN CORPUSCULAR HGB CONC 33.4 % (32.0-36.0); MONO % 13.6 % (0.0-8.0); NEUT % 66.6 % (16.0-70.0); PLATELET COUNT 324 TH/MM3 (150-450); RED CELL DISTRIBUTION WIDTH 12.8 % (11.6-17.2); WHITE BLOOD COUNT 10.3 TH/MM3 (4.0-11.0)
[2017-07-21 06:22] LABS: CHLORIDE 104 MEQ/L (98-107); POTASSIUM 4.7 MEQ/L (3.5-5.1); SODIUM (NA) 134 MEQ/L (136-145)
[2017-07-21 06:26] LABS: ANION GAP 8 MEQ/L (5-15); BICARBONATE 22.3 MEQ/L (21.0-32.0); BLOOD UREA NITROGEN 59 MG/DL (7-18)
[2017-07-21 06:29] LABS: ALT (GPT) 24 U/L (12-78); AST (GOT) 22 U/L (15-37); GLOMERULAR FILTRATION RATE 21 ML/MIN (>89)
[2017-07-21 06:30] LABS: TOTAL BILIRUBIN ADULT 0.2 MG/DL (0.2-1.0)
[2017-07-21 06:31] LABS: ALKALINE PHOSPHATASE 125 U/L (45-117)
[2017-07-21] MEDS: INSULIN ASPART SUPPLEMENTAL SCALE SQ SCH ×4 (08:00→20:47)
[2017-07-21] MEDS ORDERED: SODIUM CHLOR 0.9% 250 ML INJ 250 ML IV ONE (09:00)
[2017-07-21] MEDS: FLUCONAZOLE 100 MG TAB PO SCH (09:54)
[2017-07-21] MEDS: MAGNESIUM OXIDE 400 MG TAB PO SCH (09:54)
[2017-07-21] MEDS: AMOXICILLIN (TRIHYDRATE) 500 MG CAP PO SCH ×2 (09:54→20:45)
[2017-07-21] MEDS: METOPROLOL TARTRATE 100 MG TAB PO SCH ×2 (09:54→20:46)
[2017-07-21] MEDS: DOCUSATE SODIUM 50 MG/SENNA 8.6 MG TAB PO SCH ×2 (09:54→20:53)
[2017-07-21] MEDS: PANTOPRAZOLE SOD 20 MG DELAYED RELEASE TAB PO SCH (09:54)
[2017-07-21] MEDS: ISOSORBIDE MONONITRATE 60 MG TAB PO SCH (09:54)
[2017-07-21] MEDS: FERROUS SULFATE 325 MG (65 MG ELEMENTAL IRON) TAB PO SCH ×2 (09:54→17:41)
[2017-07-21] MEDS: LACTOBACILLUS ACIDOPHILUS TAB PO SCH ×2 (09:54→20:51)
[2017-07-21] MEDS: PREGABALIN 75 MG CAP PO SCH (09:54)
[2017-07-21] MEDS: CALCITRIOL 0.25 MCG CAP PO SCH (09:54)
[2017-07-21] MEDS: APIXABAN 5 MG TABLET PO SCH ×2 (09:55→20:55)
[2017-07-21] MEDS: SODIUM CHLORIDE 0.9% FLUSH 10 ML FLUSH IV FLUSH SCH ×2 (10:14→20:55)
[2017-07-21] MEDS: TIOTROPIUM BROMIDE 18 MCG INH INH SCH (10:14)
[2017-07-21] MEDS ORDERED: HYDROmorphone HCL PF 1 MG/ML VIAL IV PUSH PRN (10:45)
[2017-07-21] MEDS ORDERED: methylPREDNISolone SOD SUCC 40 MG/1 ML VIAL IV PUSH ONE (10:45)
--- NOTE | 2017-07-21 10:46 | HHI.PR ---
Subjective Remarks Patient says he feels worse today. He is complaining of diffuse pains in his bilateral hands, arms, and feet. He has gout in the past but says this does not feel like a gout flareup. Hemoglobin level has declined to 7.7. Transfusion of 1 unit in order. Also, his creatinine level has trended from 2.7 to 3.0 today. Objective Vital Signs Date Time Temp Pulse Resp B/P (MAP) Pulse Ox O2 Delivery O2 Flow Rate FiO2 07/21/17 08:00 98.0 67 18 139/70 (93) 97 07/21/17 00:00 97.8 63 20 107/65 (79) 100 07/20/17 21:25 95 21 07/20/17 20:00 97.0 68 20 97/66 (76) 96 07/20/17 16:20 18 I/O 07/20/17 07/20/17 07/20/17 07/21/17 07/21/17 07/21/17 07:00 15:00 23:00 07:00 15:00 23:00 Intake Total 200 ml 1380 ml 0 ml Output Total 875 ml 475 ml Balance 200 ml 505 ml -475 ml Intake Oral 200 ml 1380 ml 0 ml Output Urine Total 875 ml 475 ml # Bowel Movements 0 0 Result Diagram: 07/21/17 0450 07/21/17 0450 Objective Remarks GENERAL: NAD, A&Ox3 HEAD: Normocephalic. NECK: Supple, trachea midline. No lymphadenopathy. EYES: No scleral icterus. No injection or drainage. CARDIOVASCULAR: Regular rate and rhythm without murmurs, gallops, or rubs. RESPIRATORY: Breath sounds equal bilaterally. No accessory muscle use. GASTROINTESTINAL: Abdomen soft, non-tender, nondistended. MUSCULOSKELETAL: No cyanosis. Erythema and edema of left arm, increased compared to yesterday. SKIN: Warm and dry. NEURO: No focal neurological deficitis. A/P Problem List: (1) Acute metabolic encephalopathy ICD Code: G93.41 - Metabolic encephalopathy (2) Acute renal failure ICD Code: N17.9 - Acute kidney failure, unspecified (3) Weakness ICD Code: R53.1 - Weakness (4) GABBI (acute kidney injury) ICD Code: N17.9 - Acute kidney failure, unspecified (5) CKD (chronic kidney disease), stage IV ICD Code: N18.4 - Chronic kidney disease, stage 4 (severe) (6) Type 2 diabetes mellitus ICD Code: E11.9 - Type 2 diabetes mellitus without complications (7) Acute on chronic renal insufficiency ICD Code: N28.9 - Disorder of kidney and ureter, unspecified; N18.9 - Chronic kidney disease, unspecified Status: Acute Assessment and Plan Assessment and Plan 71-year-old male admitted secondary to acute renal failure on chronic kidney disease stage IV and bacteremia with encephalopathy. Repeat ultrasound of left arm, to evaluate for progression to DVT. Systemic steroids started to help treat his pain which I feel secondary to inflammation. When necessary breakthrough Dilaudid also added. Labs reviewed. Continue to monitor renal function which is worse today. Labs ordered for continued monitoring. Acute kidney injury Acute renal failure Chronic kidney disease stage IV Acute kidney injury/acute renal failure continues to improve Continue to follow renal function Nephrology following Enterococcus faecalis bacteremia Continue ampicillin ID following Acute metabolic encephalopathy Improving Patient's mental status is nearing baseline Hematuria BPH Recent TURP Follow as an outpatient with urology Continue Flomax Diabetes mellitus type 2 Follow blood sugars Insulin sliding scale Diabetic diet Coronary artery disease History of CABG Status post coronary stent one month ago Continue Eliquis Continue metoprolol Continue statin Follow-up with cardiology as an outpatient Chronic systolic CHF Pedal edema Estimated EF is 45% based on last echo Continue metoprolol Continue SHANIA hose Follow clinically for any fluid overload Left forearm pain Superficial venous thrombus (cephalic vein) Edema worsened compared to yesterday Repeat ultrasound Compresses as needed Elevate arm Continue Eliquis Continue pain treatments as needed Chronic rash Possible psoriasis Continue Diflucan Continue topical steroid History of CVA Continue statin Continue Eliquis Follow clinically Paroxysmal A. fib Continue Eliquis Continue metoprolol Follow clinically Fibromyalgia Continue Lyrica History of gastric ulcer Continue PPI DVT prophylaxis Eliquis Problem Qualifiers (1) Type 2 diabetes mellitus: Adan Lam MD Jul 21, 2017 10:46
[2017-07-21] MEDS: NYSTATIN/TRIAMCINOLONE CREAM 15 GM TOPICAL SCH ×3 (11:53→20:56)
[2017-07-21] MEDS: SODIUM CHLOR 0.9% 1000 ML INJ 1,000 ML IV SCH (13:24)
--- NOTE | 2017-07-21 14:35 | RADRPT ---
EXAM DATE/TIME: 07/21/2017 13:21 [facility] COMPARISON: US ARM LEFT VENOUS DOPPLER, July 18, 2017, 13:28. INDICATIONS : Left arm swelling. MEDICAL HISTORY : Hypercholesterolemia. Hypertension. Chronic obstructive pulmonary disease. Cerebrovascular accident. Carpel tunnel. Myocardial infarction. Congestive heart failure. Coronary artery disease. Asthma. Renal disease. Kidney stones. Urinary tract infection. Prostate problems. Arthritis. Liver di sease. SURGICAL HISTORY : Tongue top cut off. Cardiac bypass. Coronary artery bypass graft. TURP. ENCOUNTER: Subsequent ACUITY: 1 year PAIN SCORE: 10/10 LOCATION: Left arm. FINDINGS: Previously noted distal occlusive thrombus in the cephalic vein at the wrist is no longer visualized. There is spontaneous flow documented in the brachial, basilic, cephalic, axillary, and subclavian vei ns. The vessels are compressible and augmentation response is documented. No filling defects are se en. The flow is phasic with respiration. Direction of flow in the jugular vein is caudal. CONCLUSION: 1. Interval resolution of occlusive thrombus in the distal cephalic vein at the wrist. 2. No sonographic evidence for left upper extremity DVT. Arcadio Chaves MD on July 21, 2017 at 14:32 Board Certified Radiologist. This report was verified electronically.
--- NOTE | 2017-07-21 15:44 | HHI.NPPN ---
Subjective History of Present Illness 71-year-old male with a past medical history of hypertension, diabetes mellitus, chronic kidney disease, history of prostatic hypertrophy, ischemic heart disease, atrial fibrillation, hyperlipidemia, gout, chronic anemia, chronic obstructive pulmonary disease, came to the hospital with generalized weakness. I was called to see the patient because of elevated BUN and creatinine. The patient was admitted on July 02 and he had a creatinine of 3.4 on admission which improved to 1.7-1.8 and was stable until five days ago when it started going up and now it has gone up to 7.3. Additional Remarks Patient is alert, sitting on chair, started eating better, no SOB. Review of Systems General Constitutional: Fatigue Cardiovascular Cardiac: PALACIOS Objective Data Data 07/21/17 07/22/17 19:00 07:00 Intake Total 1650 ml Output Total 675 ml Balance 975 ml Intake Oral 1650 ml Output Urine Total 675 ml Vital Signs Date Time Temp Pulse Resp B/P (MAP) Pulse Ox O2 Delivery O2 Flow Rate FiO2 07/21/17 15:10 98.0 75 18 130/65 97 07/21/17 14:55 98.4 18 129/61 93 07/21/17 14:35 98.6 69 18 121/64 93 07/21/17 14:17 98.3 69 17 132/73 91 07/21/17 10:55 18 07/21/17 10:55 18 07/21/17 08:00 98.0 67 18 139/70 (93) 97 07/21/17 00:00 97.8 63 20 107/65 (79) 100 07/20/17 21:25 95 21 07/20/17 20:00 97.0 68 20 97/66 (76) 96 -: 07/21/17 0450 07/21/17 0450 Physical Exam General Appearance: No Acute Distress, Comfortable Eyes Eye Exam: Pupils Equal Neck Neck Exam: Neck Supple Pulmonary Resp Exam: No Distress, Rhonchi, Decreased Bases, Diminished Breath Sounds Cardiology CV Exam: Regular, Normal Sinus Rhythm Gastrointestinal/Abdomen GI Exam: Soft, Non-Tender, Bowel Sounds Present, Distended Extremeties Extremities Exam: Trace Edema Neurologic Neuro Exam: Alert, Awake Psychiatric Psych Exam: Appropriate Responses Assessment/Plan Assessment Summary: GABBI/Acute Renal Failure, CKD Stage III Problem List: (1) Cerebrovascular disease ICD Codes: I67.9 - Cerebrovascular disease, unspecified (2) Generalized pain ICD Codes: R52 - Pain, unspecified (3) Type 2 diabetes mellitus ICD Codes: E11.9 - Type 2 diabetes mellitus without complications (4) Chronic systolic CHF (congestive heart failure) ICD Codes: I50.22 - Chronic systolic (congestive) heart failure (5) CKD (chronic kidney disease), stage IV ICD Codes: N18.4 - Chronic kidney disease, stage 4 (severe) (6) GABBI (acute kidney injury) ICD Codes: N17.9 - Acute kidney failure, unspecified Plan Patient has chronic kidney disease and baseline Creatinine is close to 1.7-1.8. Develop GABBI, possibly obstructive or pre renal. Started passing more urine after the Mansfield's catheter. Patient has slight increase in the Creatinine, now it is 3.0 Acidosis is also improving. K is normal, not eating well. Avoid Nephrotoxins. U/S left arm noted, on Eliquis. Creatinine is improving towards his baseline. Encourage oral intake, to drink more fluid. Has ATN and possible AIN causing GABBI. Problem Qualifiers (1) Type 2 diabetes mellitus: Aleksandra Tillman MD Jul 21, 2017 15:44
[2017-07-21] MEDS: TAMSULOSIN HCL 0.4 MG CAP PO SCH (20:49)
[2017-07-21] MEDS: ATORVASTATIN 40 MG TAB PO SCH (20:52)
[2017-07-21] MEDS: predniSONE 20 MG TAB PO SCH (20:55)
[2017-07-22 01:05] VITALS: BP 132/76; PULSE 79; RESP 20; TEMP 97; O2SAT 95
[2017-07-22] MEDS: LEVOTHYROXINE SODIUM 200 MCG TAB PO SCH (05:43)
[2017-07-22 05:51] LABS: AUTOMATED NEUTROPHIL # 6.1 TH/MM3 (1.8-7.7); BASOPHIL % 0.1 % (0.0-2.0); EOSINOPHIL % 0.1 % (0.0-4.0); HEMATOCRIT 25.3 % (39.0-51.0); HEMO FLAGS DIFF FINAL; LYMPH % 8.8 % (9.0-44.0); LYMPHOCYTE # 0.6 TH/MM3 (1.0-4.8); MEAN CELL VOLUME 88.4 FL (80.0-100.0); MEAN CORPUSCULAR HGB CONC 32.8 % (32.0-36.0); PLATELET COUNT 323 TH/MM3 (150-450); RED BLOOD COUNT 2.86 MIL/MM3 (4.50-5.90); RED CELL DISTRIBUTION WIDTH 12.7 % (11.6-17.2); WHITE BLOOD COUNT 7.1 TH/MM3 (4.0-11.0)
[2017-07-22 05:59] LABS: CHLORIDE 104 MEQ/L (98-107); POTASSIUM 4.5 MEQ/L (3.5-5.1); SODIUM (NA) 135 MEQ/L (136-145)
[2017-07-22 06:03] LABS: ANION GAP 8 MEQ/L (5-15); BICARBONATE 22.7 MEQ/L (21.0-32.0); BLOOD UREA NITROGEN 69 MG/DL (7-18)
[2017-07-22 06:06] LABS: ALT (GPT) 24 U/L (12-78); AST (GOT) 22 U/L (15-37); GLOMERULAR FILTRATION RATE 21 ML/MIN (>89)
[2017-07-22 06:07] LABS: TOTAL BILIRUBIN ADULT 0.3 MG/DL (0.2-1.0)
[2017-07-22 06:09] LABS: ALKALINE PHOSPHATASE 135 U/L (45-117)
[2017-07-22 08:00] VITALS: BP 105/92; PULSE 78; RESP 21; TEMP 97.5; O2SAT 94; O2SAT 96
[2017-07-22] MEDS: AMOXICILLIN (TRIHYDRATE) 500 MG CAP PO SCH ×2 (09:00→20:30)
[2017-07-22] MEDS: LACTOBACILLUS ACIDOPHILUS TAB PO SCH ×2 (09:00→20:30)
[2017-07-22] MEDS: DOCUSATE SODIUM 50 MG/SENNA 8.6 MG TAB PO SCH ×2 (09:00→20:32)
[2017-07-22] MEDS: CALCITRIOL 0.25 MCG CAP PO SCH (09:00)
[2017-07-22] MEDS: SODIUM CHLORIDE 0.9% FLUSH 10 ML FLUSH IV FLUSH SCH ×2 (09:00→20:33)
[2017-07-22] MEDS: TIOTROPIUM BROMIDE 18 MCG INH INH SCH (09:09)
[2017-07-22] MEDS: APIXABAN 5 MG TABLET PO SCH ×2 (09:10→20:31)
[2017-07-22] MEDS: ISOSORBIDE MONONITRATE 60 MG TAB PO SCH (09:10)
[2017-07-22] MEDS: predniSONE 20 MG TAB PO SCH ×2 (09:10→20:31)
[2017-07-22] MEDS: METOPROLOL TARTRATE 100 MG TAB PO SCH ×2 (09:10→20:31)
[2017-07-22] MEDS: PREGABALIN 75 MG CAP PO SCH (09:10)
[2017-07-22] MEDS: FLUCONAZOLE 100 MG TAB PO SCH (09:10)
[2017-07-22] MEDS: PANTOPRAZOLE SOD 20 MG DELAYED RELEASE TAB PO SCH (09:10)
[2017-07-22] MEDS: FERROUS SULFATE 325 MG (65 MG ELEMENTAL IRON) TAB PO SCH ×2 (09:10→17:14)
[2017-07-22] MEDS: MAGNESIUM OXIDE 400 MG TAB PO SCH (09:10)
[2017-07-22] MEDS: INSULIN ASPART SUPPLEMENTAL SCALE SQ SCH ×4 (09:11→20:30)
--- NOTE | 2017-07-22 10:50 | HHI.PR ---
Subjective Remarks Patient's clinical state has improved today. He is feeling better. He was able to exercise his left arm yesterday. Repeat ultrasound of the left arm shows resolution of superficial thrombus and no evidence of DVT. Renal function has improved from 3.0-2.9 in regards to creatinine. Objective Vital Signs Date Time Temp Pulse Resp B/P (MAP) Pulse Ox O2 Delivery O2 Flow Rate FiO2 07/22/17 08:00 97.5 78 21 105/92 (96) 94 07/22/17 08:00 96 21 07/22/17 01:05 97.0 79 20 132/76 (94) 95 07/21/17 20:20 92 21 07/21/17 20:00 96.9 75 18 120/63 (82) 97 07/21/17 17:35 98.3 65 18 135/74 93 07/21/17 16:10 98.0 68 18 132/76 93 07/21/17 15:40 98.4 71 18 136/83 95 07/21/17 15:10 98.0 75 18 130/65 97 07/21/17 14:55 98.4 18 129/61 93 07/21/17 14:35 98.6 69 18 121/64 93 07/21/17 14:17 98.3 69 17 132/73 91 07/21/17 10:55 18 07/21/17 10:55 18 I/O 07/21/17 07/21/17 07/21/17 07/22/17 07/22/17 07/22/17 07:00 15:00 23:00 07:00 15:00 23:00 Intake Total 0 ml 1650 ml 480 ml Output Total 475 ml 675 ml 200 ml 1425 ml Balance -475 ml 975 ml -200 ml -945 ml Intake Oral 0 ml 1650 ml 480 ml Output Urine Total 475 ml 675 ml 200 ml 1425 ml # Bowel Movements 0 Result Diagram: 07/22/1752907/22/17529 Objective Remarks GENERAL: NAD, A&Ox3 HEAD: Normocephalic. NECK: Supple, trachea midline. No lymphadenopathy. EYES: No scleral icterus. No injection or drainage. CARDIOVASCULAR: Regular rate and rhythm without murmurs, gallops, or rubs. RESPIRATORY: Breath sounds equal bilaterally. No accessory muscle use. GASTROINTESTINAL: Abdomen soft, non-tender, nondistended. MUSCULOSKELETAL: No cyanosis. Erythema and edema of left arm, increased compared to yesterday. SKIN: Warm and dry. NEURO: No focal neurological deficitis. A/P Problem List: (1) Acute metabolic encephalopathy ICD Code: G93.41 - Metabolic encephalopathy (2) Acute renal failure ICD Code: N17.9 - Acute kidney failure, unspecified (3) Weakness ICD Code: R53.1 - Weakness (4) GABBI (acute kidney injury) ICD Code: N17.9 - Acute kidney failure, unspecified (5) CKD (chronic kidney disease), stage IV ICD Code: N18.4 - Chronic kidney disease, stage 4 (severe) (6) Type 2 diabetes mellitus ICD Code: E11.9 - Type 2 diabetes mellitus without complications (7) Acute on chronic renal insufficiency ICD Code: N28.9 - Disorder of kidney and ureter, unspecified; N18.9 - Chronic kidney disease, unspecified Status: Acute Assessment and Plan Assessment and Plan 71-year-old male admitted secondary to acute renal failure on chronic kidney disease stage IV and bacteremia with encephalopathy. Repeat ultrasound is negative for any deep or superficial thrombus. Continue steroids. Patient is benefiting clinically improving. Labs reviewed. Creatinine level improving. Labs ordered. Continue to monitor blood work. Acute kidney injury Acute renal failure Chronic kidney disease stage IV Acute kidney injury/acute renal failure continues to improve Continue to follow renal function Nephrology following Enterococcus faecalis bacteremia Continue ampicillin ID following Acute metabolic encephalopathy Improving Patient's mental status is nearing baseline Hematuria BPH Recent TURP Follow as an outpatient with urology Continue Flomax Diabetes mellitus type 2 Follow blood sugars Insulin sliding scale Diabetic diet Coronary artery disease History of CABG Status post coronary stent one month ago Continue Eliquis Continue metoprolol Continue statin Follow-up with cardiology as an outpatient Chronic systolic CHF Pedal edema Estimated EF is 45% based on last echo Continue metoprolol Continue SHANIA hose Follow clinically for any fluid overload Left forearm pain Superficial venous thrombus (cephalic vein) Edema worsened compared to yesterday Repeat ultrasound Compresses as needed Elevate arm Continue Eliquis Continue pain treatments as needed Chronic rash Possible psoriasis Continue Diflucan Continue topical steroid History of CVA Continue statin Continue Eliquis Follow clinically Paroxysmal A. fib Continue Eliquis Continue metoprolol Follow clinically Fibromyalgia Continue Lyrica History of gastric ulcer Continue PPI DVT prophylaxis Eliquis Problem Qualifiers (1) Type 2 diabetes mellitus: Adan Lam MD Jul 22, 2017 10:50
[2017-07-22] MEDS: NYSTATIN/TRIAMCINOLONE CREAM 15 GM TOPICAL SCH ×2 (11:35→22:20)
[2017-07-22 12:00] VITALS: BP 112/86; PULSE 79; RESP 18; TEMP 97.7; O2SAT 93
[2017-07-22] MEDS: SODIUM CHLOR 0.9% 1000 ML INJ 1,000 ML IV SCH (13:13)
[2017-07-22] MEDS ORDERED: MENTHOL LOZENGE BUCCAL PRN (14:45)
[2017-07-22 16:00] VITALS: BP 133/72; PULSE 72; RESP 18; TEMP 98.2; O2SAT 95
--- NOTE | 2017-07-22 19:15 | HHI.NPPN ---
Subjective History of Present Illness 71-year-old male with a past medical history of hypertension, diabetes mellitus, chronic kidney disease, history of prostatic hypertrophy, ischemic heart disease, atrial fibrillation, hyperlipidemia, gout, chronic anemia, chronic obstructive pulmonary disease, came to the hospital with generalized weakness. I was called to see the patient because of elevated BUN and creatinine. The patient was admitted on July 02 and he had a creatinine of 3.4 on admission which improved to 1.7-1.8 and was stable until five days ago when it started going up and now it has gone up to 7.3. Additional Remarks No acute complaints Review of Systems General Constitutional: Fatigue Cardiovascular Cardiac: PALACIOS Objective Data Data 07/22/17 07/23/17 18:59 06:59 Output Total 400 ml Balance -400 ml Output Urine Total 400 ml Vital Signs Date Time Temp Pulse Resp B/P (MAP) Pulse Ox O2 Delivery O2 Flow Rate FiO2 07/22/17 16:00 98.2 72 18 133/72 (92) 95 07/22/17 12:00 97.7 79 18 112/86 (95) 93 07/22/17 08:00 97.5 78 21 105/92 (96) 94 07/22/17 08:00 96 21 07/22/17 01:05 97.0 79 20 132/76 (94) 95 07/21/17 20:20 92 21 07/21/17 20:00 96.9 75 18 120/63 (82) 97 -: 07/22/17 0530 07/22/17 0530 Physical Exam General Appearance: No Acute Distress, Comfortable Eyes Eye Exam: Pupils Equal Neck Neck Exam: Neck Supple Pulmonary Resp Exam: No Distress, Rhonchi, Decreased Bases, Diminished Breath Sounds Cardiology CV Exam: Regular, Normal Sinus Rhythm Gastrointestinal/Abdomen GI Exam: Soft, Non-Tender, Bowel Sounds Present, Distended Extremeties Extremities Exam: Trace Edema Neurologic Neuro Exam: Alert, Awake Psychiatric Psych Exam: Appropriate Responses Assessment/Plan Assessment Summary: GABBI/Acute Renal Failure, CKD Stage III Problem List: (1) Cerebrovascular disease ICD Codes: I67.9 - Cerebrovascular disease, unspecified (2) Generalized pain ICD Codes: R52 - Pain, unspecified (3) Type 2 diabetes mellitus ICD Codes: E11.9 - Type 2 diabetes mellitus without complications (4) Chronic systolic CHF (congestive heart failure) ICD Codes: I50.22 - Chronic systolic (congestive) heart failure (5) CKD (chronic kidney disease), stage IV ICD Codes: N18.4 - Chronic kidney disease, stage 4 (severe) (6) GABBI (acute kidney injury) ICD Codes: N17.9 - Acute kidney failure, unspecified Plan Patient has chronic kidney disease and baseline Creatinine is close to 1.7-1.8. Developed GABBI, possibly obstructive or pre renal with ATN and possible AIN causing GABBI. Started passing more urine after the Mansfield catheter. Renal function continues to improve. Creatinine 3.0-2.9 today, good UOP. Acidosis is also improving. K is normal, not eating well. Avoid Nephrotoxins. U/S left arm noted, on Eliquis. Creatinine is improving towards his baseline. Encourage oral intake Problem Qualifiers (1) Type 2 diabetes mellitus: Adan Patton MD Jul 22, 2017 19:15
[2017-07-22] MEDS: TAMSULOSIN HCL 0.4 MG CAP PO SCH (20:30)
[2017-07-22] MEDS: ATORVASTATIN 40 MG TAB PO SCH (20:31)
[2017-07-22 21:32] VITALS: BP 139/78; PULSE 77; RESP 18; TEMP 98.7; O2SAT 95
[2017-07-22 22:00] VITALS: O2SAT 94
[2017-07-23 01:05] VITALS: BP 141/79; PULSE 79; RESP 20; TEMP 98.4; O2SAT 98
[2017-07-23] MEDS: LEVOTHYROXINE SODIUM 200 MCG TAB PO SCH (04:55)
[2017-07-23 07:18] LABS: AUTOMATED NEUTROPHIL # 7.9 TH/MM3 (1.8-7.7); BASOPHIL % 0.1 % (0.0-2.0); EOSINOPHIL % 0.1 % (0.0-4.0); HEMATOCRIT 23.6 % (39.0-51.0); HEMO FLAGS DIFF FINAL; LYMPH % 8.7 % (9.0-44.0); LYMPHOCYTE # 0.8 TH/MM3 (1.0-4.8); MEAN CORPUSCULAR HGB CONC 33.3 % (32.0-36.0); MONO % 5.7 % (0.0-8.0); NEUT % 85.4 % (16.0-70.0); PLATELET COUNT 354 TH/MM3 (150-450); RED BLOOD COUNT 2.63 MIL/MM3 (4.50-5.90); RED CELL DISTRIBUTION WIDTH 13.2 % (11.6-17.2); WHITE BLOOD COUNT 9.2 TH/MM3 (4.0-11.0)
[2017-07-23 07:22] LABS: POTASSIUM 4.6 MEQ/L (3.5-5.1)
[2017-07-23 07:25] LABS: BICARBONATE 21.3 MEQ/L (21.0-32.0)
[2017-07-23 08:00] VITALS: BP 143/83; PULSE 70; RESP 19; TEMP 98; O2SAT 93
[2017-07-23] MEDS: INSULIN ASPART SUPPLEMENTAL SCALE SQ SCH ×4 (08:00→20:50)
[2017-07-23 08:19] VITALS: O2SAT 98
[2017-07-23] MEDS: PANTOPRAZOLE SOD 20 MG DELAYED RELEASE TAB PO SCH (08:57)
[2017-07-23] MEDS: APIXABAN 5 MG TABLET PO SCH ×2 (08:58→20:38)
[2017-07-23] MEDS: METOPROLOL TARTRATE 100 MG TAB PO SCH ×2 (08:58→20:37)
[2017-07-23] MEDS: predniSONE 20 MG TAB PO SCH ×2 (08:58→20:37)
[2017-07-23] MEDS: FLUCONAZOLE 100 MG TAB PO SCH (08:58)
[2017-07-23] MEDS: TIOTROPIUM BROMIDE 18 MCG INH INH SCH (08:58)
[2017-07-23] MEDS: FERROUS SULFATE 325 MG (65 MG ELEMENTAL IRON) TAB PO SCH ×2 (08:58→17:20)
[2017-07-23] MEDS: LACTOBACILLUS ACIDOPHILUS TAB PO SCH ×2 (08:58→20:38)
[2017-07-23] MEDS: AMOXICILLIN (TRIHYDRATE) 500 MG CAP PO SCH ×2 (08:58→20:37)
[2017-07-23] MEDS: MAGNESIUM OXIDE 400 MG TAB PO SCH (08:58)
[2017-07-23] MEDS: PREGABALIN 75 MG CAP PO SCH (08:58)
[2017-07-23] MEDS: CALCITRIOL 0.25 MCG CAP PO SCH (08:58)
[2017-07-23] MEDS: ISOSORBIDE MONONITRATE 60 MG TAB PO SCH (08:58)
[2017-07-23] MEDS: DOCUSATE SODIUM 50 MG/SENNA 8.6 MG TAB PO SCH ×2 (09:00→20:39)
[2017-07-23] MEDS: SODIUM CHLORIDE 0.9% FLUSH 10 ML FLUSH IV FLUSH SCH ×2 (09:02→20:38)
--- NOTE | 2017-07-23 10:51 | HHI.PR ---
Subjective Remarks Renal function continues to improve. Creatinine level is now 2.50. Patient's left arm still bothers him. A repeat ultrasound showed no DVT and no further evidence of superficial cephalic thrombus. Objective Vital Signs Date Time Temp Pulse Resp B/P (MAP) Pulse Ox O2 Delivery O2 Flow Rate FiO2 07/23/17 08:19 98 21 07/23/17 08:00 98.0 70 19 143/83 (103) 93 07/23/17 04:32 07/23/17 01:05 98.4 79 20 141/79 (99) 98 07/22/17 22:00 94 21 07/22/17 21:32 98.7 77 18 139/78 (98) 95 07/22/17 16:00 98.2 72 18 133/72 (92) 95 07/22/17 12:00 97.7 79 18 112/86 (95) 93 I/O 07/22/17 07/22/17 07/22/17 07/23/17 07/23/17 07/23/17 07:00 15:00 23:00 07:00 15:00 23:00 Intake Total 480 ml 900 ml Output Total 1425 ml 1475 ml 1150 ml Balance -945 ml -1475 ml -250 ml Intake Oral 480 ml 900 ml Output Urine Total 1425 ml 1475 ml 1150 ml # Bowel Movements 0 Result Diagram: 07/23/17 0600 07/23/17 0600 Objective Remarks GENERAL: NAD, A&Ox3 HEAD: Normocephalic. NECK: Supple, trachea midline. No lymphadenopathy. EYES: No scleral icterus. No injection or drainage. CARDIOVASCULAR: Regular rate and rhythm without murmurs, gallops, or rubs. RESPIRATORY: Breath sounds equal bilaterally. No accessory muscle use. GASTROINTESTINAL: Abdomen soft, non-tender, nondistended. MUSCULOSKELETAL: No cyanosis. Erythema and edema of left arm, decreased compared to yesterday. SKIN: Warm and dry. NEURO: No focal neurological deficitis. A/P Problem List: (1) Acute metabolic encephalopathy ICD Code: G93.41 - Metabolic encephalopathy (2) Acute renal failure ICD Code: N17.9 - Acute kidney failure, unspecified (3) Weakness ICD Code: R53.1 - Weakness (4) GABBI (acute kidney injury) ICD Code: N17.9 - Acute kidney failure, unspecified (5) CKD (chronic kidney disease), stage IV ICD Code: N18.4 - Chronic kidney disease, stage 4 (severe) (6) Type 2 diabetes mellitus ICD Code: E11.9 - Type 2 diabetes mellitus without complications (7) Acute on chronic renal insufficiency ICD Code: N28.9 - Disorder of kidney and ureter, unspecified; N18.9 - Chronic kidney disease, unspecified Status: Acute Assessment and Plan Assessment and Plan 71-year-old male admitted secondary to acute renal failure on chronic kidney disease stage IV and bacteremia with encephalopathy. Blood sugars increased with steroids. Continue steroids. Continue to monitor renal function. Labs reviewed. Renal function has improved today. Labs ordered. Continue to monitor blood work. Acute kidney injury Acute renal failure Chronic kidney disease stage IV Acute kidney injury/acute renal failure continues to improve Continue to follow renal function Nephrology following Enterococcus faecalis bacteremia Continue ampicillin ID following Acute metabolic encephalopathy Improving Patient's mental status is nearing baseline Hematuria BPH Recent TURP Follow as an outpatient with urology Continue Flomax Diabetes mellitus type 2 Follow blood sugars Insulin sliding scale Diabetic diet Coronary artery disease History of CABG Status post coronary stent one month ago Continue Eliquis Continue metoprolol Continue statin Follow-up with cardiology as an outpatient Chronic systolic CHF Pedal edema Estimated EF is 45% based on last echo Continue metoprolol Continue SHANIA tovare Follow clinically for any fluid overload Left forearm pain Superficial venous thrombus (cephalic vein) Edema worsened compared to yesterday Repeat ultrasound Compresses as needed Elevate arm Continue Eliquis Continue pain treatments as needed Chronic rash Possible psoriasis Continue Diflucan Continue topical steroid History of CVA Continue statin Continue Eliquis Follow clinically Paroxysmal A. fib Continue Eliquis Continue metoprolol Follow clinically Fibromyalgia Continue Lyrica History of gastric ulcer Continue PPI DVT prophylaxis Eliquis Problem Qualifiers (1) Type 2 diabetes mellitus: Adan Lam MD Jul 23, 2017 10:51
[2017-07-23 12:00] VITALS: BP 133/85; PULSE 73; RESP 18; TEMP 98.2; O2SAT 95
[2017-07-23] MEDS: NYSTATIN/TRIAMCINOLONE CREAM 15 GM TOPICAL SCH ×2 (12:00→22:12)
[2017-07-23] MEDS: SODIUM CHLOR 0.9% 1000 ML INJ 1,000 ML IV SCH (12:11)
[2017-07-23 19:00] VITALS: BP 164/69; PULSE 70; RESP 18; TEMP 97; O2SAT 97
[2017-07-23 20:32] VITALS: O2SAT 98
[2017-07-23] MEDS: ATORVASTATIN 40 MG TAB PO SCH (20:37)
[2017-07-23] MEDS: TAMSULOSIN HCL 0.4 MG CAP PO SCH (20:38)
[2017-07-24] VITALS: BP 145/79; PULSE 79; RESP 18; TEMP 98.1; O2SAT 95
[2017-07-24 05:26] LABS: AUTOMATED NEUTROPHIL # 7.9 TH/MM3 (1.8-7.7); HEMATOCRIT 26.7 % (39.0-51.0); HEMO FLAGS DIFF FINAL; LYMPH % 7.8 % (9.0-44.0); LYMPHOCYTE # 0.7 TH/MM3 (1.0-4.8); MEAN CORPUSCULAR HEMOGLOBIN 28.7 PG (27.0-34.0); MEAN CORPUSCULAR HGB CONC 32.2 % (32.0-36.0); MONO % 5.6 % (0.0-8.0); NEUT % 86.6 % (16.0-70.0); PLATELET COUNT 403 TH/MM3 (150-450); RED CELL DISTRIBUTION WIDTH 12.9 % (11.6-17.2); WHITE BLOOD COUNT 9.1 TH/MM3 (4.0-11.0)
[2017-07-24 05:57] LABS: CHLORIDE 103 MEQ/L (98-107); POTASSIUM 4.7 MEQ/L (3.5-5.1); SODIUM (NA) 134 MEQ/L (136-145)
[2017-07-24] MEDS: LEVOTHYROXINE SODIUM 200 MCG TAB PO SCH (06:00)
[2017-07-24 06:03] LABS: ANION GAP 8 MEQ/L (5-15); BICARBONATE 22.7 MEQ/L (21.0-32.0); BLOOD UREA NITROGEN 61 MG/DL (7-18)
[2017-07-24 06:06] LABS: ALT (GPT) 37 U/L (12-78); AST (GOT) 35 U/L (15-37); GLOMERULAR FILTRATION RATE 27 ML/MIN (>89)
[2017-07-24 06:07] LABS: TOTAL BILIRUBIN ADULT 0.4 MG/DL (0.2-1.0)
[2017-07-24 06:09] LABS: ALKALINE PHOSPHATASE 139 U/L (45-117)
[2017-07-24 07:47] VITALS: BP 152/78; PULSE 71; RESP 18; TEMP 96.3; O2SAT 100
[2017-07-24 08:00] VITALS: O2SAT 94
[2017-07-24] MEDS: LACTOBACILLUS ACIDOPHILUS TAB PO SCH ×2 (09:00→20:26)
[2017-07-24] MEDS: CALCITRIOL 0.25 MCG CAP PO SCH (09:12)
[2017-07-24] MEDS: MAGNESIUM OXIDE 400 MG TAB PO SCH (09:12)
[2017-07-24] MEDS: APIXABAN 5 MG TABLET PO SCH ×2 (09:12→20:27)
[2017-07-24] MEDS: ISOSORBIDE MONONITRATE 60 MG TAB PO SCH (09:12)
[2017-07-24] MEDS: AMOXICILLIN (TRIHYDRATE) 500 MG CAP PO SCH ×2 (09:12→20:27)
[2017-07-24] MEDS: FERROUS SULFATE 325 MG (65 MG ELEMENTAL IRON) TAB PO SCH ×2 (09:13→17:21)
[2017-07-24] MEDS: PANTOPRAZOLE SOD 20 MG DELAYED RELEASE TAB PO SCH (09:13)
[2017-07-24] MEDS: FLUCONAZOLE 100 MG TAB PO SCH (09:13)
[2017-07-24] MEDS: METOPROLOL TARTRATE 100 MG TAB PO SCH ×2 (09:13→20:27)
[2017-07-24] MEDS: TIOTROPIUM BROMIDE 18 MCG INH INH SCH (09:13)
[2017-07-24] MEDS: PREGABALIN 75 MG CAP PO SCH (09:13)
[2017-07-24] MEDS: DOCUSATE SODIUM 50 MG/SENNA 8.6 MG TAB PO SCH ×2 (09:13→20:29)
[2017-07-24] MEDS: predniSONE 20 MG TAB PO SCH (09:13)
[2017-07-24] MEDS: SODIUM CHLORIDE 0.9% FLUSH 10 ML FLUSH IV FLUSH SCH ×2 (09:14→20:26)
[2017-07-24] MEDS: INSULIN ASPART SUPPLEMENTAL SCALE SQ SCH ×4 (09:14→20:30)
--- NOTE | 2017-07-24 10:06 | HHI.PR ---
Subjective Remarks From patient's left arm pain, he continues to improve. Creatinine is now 2.4. Hemoglobin increased to 8.6. Objective Vital Signs Date Time Temp Pulse Resp B/P (MAP) Pulse Ox O2 Delivery O2 Flow Rate FiO2 07/24/17 08:00 94 21 07/24/17 07:47 96.3 71 18 152/78 (102) 100 07/24/17 00:00 98.1 79 18 145/79 (101) 95 07/23/17 20:32 98 21 07/23/17 19:00 97.0 70 18 164/69 (100) 97 07/23/17 12:00 98.2 73 18 133/85 (101) 95 I/O 07/23/17 07/23/17 07/23/17 07/24/17 07/24/17 07/24/17 07:00 15:00 23:00 07:00 15:00 23:00 Intake Total 900 ml 400 ml 240 ml Output Total 1150 ml 550 ml 1000 ml 800 ml Balance -250 ml -550 ml -600 ml -560 ml Intake Oral 900 ml 240 ml Packed Cells 400 ml Output Urine Total 1150 ml 550 ml 1000 ml 800 ml # Bowel Movements 0 Result Diagram: 07/24/1742907/24/17429 Objective Remarks GENERAL: NAD, A&Ox3 HEAD: Normocephalic. NECK: Supple, trachea midline. No lymphadenopathy. EYES: No scleral icterus. No injection or drainage. CARDIOVASCULAR: Regular rate and rhythm without murmurs, gallops, or rubs. RESPIRATORY: Breath sounds equal bilaterally. No accessory muscle use. GASTROINTESTINAL: Abdomen soft, non-tender, nondistended. MUSCULOSKELETAL: No cyanosis. Erythema and edema of left arm, decreased compared to yesterday. SKIN: Warm and dry. NEURO: No focal neurological deficitis. A/P Problem List: (1) Acute metabolic encephalopathy ICD Code: G93.41 - Metabolic encephalopathy (2) Acute renal failure ICD Code: N17.9 - Acute kidney failure, unspecified (3) Weakness ICD Code: R53.1 - Weakness (4) GABBI (acute kidney injury) ICD Code: N17.9 - Acute kidney failure, unspecified (5) CKD (chronic kidney disease), stage IV ICD Code: N18.4 - Chronic kidney disease, stage 4 (severe) (6) Type 2 diabetes mellitus ICD Code: E11.9 - Type 2 diabetes mellitus without complications (7) Acute on chronic renal insufficiency ICD Code: N28.9 - Disorder of kidney and ureter, unspecified; N18.9 - Chronic kidney disease, unspecified Status: Acute Assessment and Plan Assessment and Plan 71-year-old male admitted secondary to acute renal failure on chronic kidney disease stage IV and bacteremia with encephalopathy. Blood sugars increased with steroids. Continue steroids, start wean. Continue to monitor renal function. Labs reviewed. Renal function has improved again today. Hemoglobin is also improved. Labs ordered. Continue to monitor blood work. Tentative plan for discharge tomorrow if improvements continue. Acute kidney injury Acute renal failure Chronic kidney disease stage IV Acute kidney injury/acute renal failure continues to improve Continue to follow renal function Nephrology following Enterococcus faecalis bacteremia Continue ampicillin ID following Acute metabolic encephalopathy Improving Patient's mental status is nearing baseline Hematuria BPH Recent TURP Follow as an outpatient with urology Continue Flomax Diabetes mellitus type 2 Follow blood sugars Insulin sliding scale Diabetic diet Coronary artery disease History of CABG Status post coronary stent one month ago Continue Eliquis Continue metoprolol Continue statin Follow-up with cardiology as an outpatient Chronic systolic CHF Pedal edema Estimated EF is 45% based on last echo Continue metoprolol Continue SHANIA hose Follow clinically for any fluid overload Left forearm pain Superficial venous thrombus (cephalic vein) Edema worsened compared to yesterday Repeat ultrasound Compresses as needed Elevate arm Continue Eliquis Continue pain treatments as needed Chronic rash Possible psoriasis Continue Diflucan Continue topical steroid History of CVA Continue statin Continue Eliquis Follow clinically Paroxysmal A. fib Continue Eliquis Continue metoprolol Follow clinically Fibromyalgia Continue Lyrica History of gastric ulcer Continue PPI DVT prophylaxis Eliquis Discharge planning Plan for discharge to home tomorrow if patient shows more stability Problem Qualifiers (1) Type 2 diabetes mellitus: Adan Lam MD Jul 24, 2017 10:06
[2017-07-24] MEDS: NYSTATIN/TRIAMCINOLONE CREAM 15 GM TOPICAL SCH ×2 (11:52→23:23)
[2017-07-24] MEDS: SODIUM CHLOR 0.9% 1000 ML INJ 1,000 ML IV SCH (12:51)
[2017-07-24 15:31] VITALS: BP 147/68; PULSE 63; RESP 18; TEMP 96.6; O2SAT 100
--- NOTE | 2017-07-24 16:05 | HHI.NPPN ---
Subjective History of Present Illness 71-year-old male with a past medical history of hypertension, diabetes mellitus, chronic kidney disease, history of prostatic hypertrophy, ischemic heart disease, atrial fibrillation, hyperlipidemia, gout, chronic anemia, chronic obstructive pulmonary disease, came to the hospital with generalized weakness. I was called to see the patient because of elevated BUN and creatinine. The patient was admitted on July 02 and he had a creatinine of 3.4 on admission which improved to 1.7-1.8 and was stable until five days ago when it started going up and now it has gone up to 7.3. Additional Remarks Patient is alert, eating better, not in distress. Review of Systems General Constitutional: Fatigue Cardiovascular Cardiac: PALACIOS Objective Data Data 07/24/17 07/25/17 19:00 07:00 Intake Total 960 ml Output Total 600 ml Balance 360 ml Intake Oral 960 ml Output Urine Total 600 ml # Voids 1 # Bowel Movements 2 Vital Signs Date Time Temp Pulse Resp B/P (MAP) Pulse Ox O2 Delivery O2 Flow Rate FiO2 07/24/17 15:31 96.6 63 18 147/68 (94) 100 07/24/17 08:00 94 21 07/24/17 07:47 96.3 71 18 152/78 (102) 100 07/24/17 00:00 98.1 79 18 145/79 (101) 95 07/23/17 20:32 98 21 07/23/17 19:00 97.0 70 18 164/69 (100) 97 -: 07/24/17 0430 07/24/17 0430 Physical Exam General Appearance: No Acute Distress, Comfortable Eyes Eye Exam: Pupils Equal Neck Neck Exam: Neck Supple Pulmonary Resp Exam: No Distress, Rhonchi, Decreased Bases, Diminished Breath Sounds Cardiology CV Exam: Regular, Normal Sinus Rhythm Gastrointestinal/Abdomen GI Exam: Soft, Non-Tender, Bowel Sounds Present, Distended Extremeties Extremities Exam: Trace Edema Neurologic Neuro Exam: Alert, Awake Psychiatric Psych Exam: Appropriate Responses Assessment/Plan Assessment Summary: GABBI/Acute Renal Failure, CKD Stage III Problem List: (1) Cerebrovascular disease ICD Codes: I67.9 - Cerebrovascular disease, unspecified (2) Generalized pain ICD Codes: R52 - Pain, unspecified (3) Type 2 diabetes mellitus ICD Codes: E11.9 - Type 2 diabetes mellitus without complications (4) Chronic systolic CHF (congestive heart failure) ICD Codes: I50.22 - Chronic systolic (congestive) heart failure (5) CKD (chronic kidney disease), stage IV ICD Codes: N18.4 - Chronic kidney disease, stage 4 (severe) (6) GABBI (acute kidney injury) ICD Codes: N17.9 - Acute kidney failure, unspecified Plan Patient has chronic kidney disease and baseline Creatinine is close to 1.7-1.8. Developed GABBI, possibly obstructive or pre renal with ATN and possible AIN causing GABBI. Started passing more urine after the Mansfield catheter. Renal function continues to improve. Creatinine now 2.4. Refusing IVF, Encourage oral fluids. Follow urine out put and BMP. Continue to hold Lasix and Lisinopril. Problem Qualifiers (1) Type 2 diabetes mellitus: Aleksandra Tillman MD Jul 24, 2017 16:05
[2017-07-24 20:00] VITALS: BP 144/74; PULSE 67; RESP 20; TEMP 97; O2SAT 98
[2017-07-24] MEDS: ATORVASTATIN 40 MG TAB PO SCH (20:27)
[2017-07-24] MEDS: TAMSULOSIN HCL 0.4 MG CAP PO SCH (20:27)
[2017-07-25] VITALS: BP 129/62; PULSE 67; RESP 20; TEMP 98; O2SAT 96
[2017-07-25] MEDS: LEVOTHYROXINE SODIUM 200 MCG TAB PO SCH (05:38)
[2017-07-25 05:40] LABS: AUTOMATED NEUTROPHIL # 7.9 TH/MM3 (1.8-7.7); BASOPHIL % 0.1 % (0.0-2.0); EOSINOPHIL % 0.1 % (0.0-4.0); HEMO FLAGS DIFF FINAL; LYMPHOCYTE # 1.5 TH/MM3 (1.0-4.8); MEAN CORPUSCULAR HEMOGLOBIN 29.2 PG (27.0-34.0); MEAN CORPUSCULAR HGB CONC 32.8 % (32.0-36.0); NEUT % 74.8 % (16.0-70.0); PLATELET COUNT 457 TH/MM3 (150-450); RED BLOOD COUNT 3.04 MIL/MM3 (4.50-5.90); RED CELL DISTRIBUTION WIDTH 12.7 % (11.6-17.2); WHITE BLOOD COUNT 10.6 TH/MM3 (4.0-11.0)
[2017-07-25 05:45] LABS: CHLORIDE 103 MEQ/L (98-107); POTASSIUM 4.4 MEQ/L (3.5-5.1); SODIUM (NA) 135 MEQ/L (136-145)
[2017-07-25 05:49] LABS: ANION GAP 8 MEQ/L (5-15); BICARBONATE 23.6 MEQ/L (21.0-32.0)
[2017-07-25 05:50] LABS: BLOOD UREA NITROGEN 59 MG/DL (7-18)
[2017-07-25 05:53] LABS: ALT (GPT) 47 U/L (12-78); AST (GOT) 38 U/L (15-37)
[2017-07-25 05:54] LABS: TOTAL BILIRUBIN ADULT 0.3 MG/DL (0.2-1.0)
[2017-07-25 05:55] LABS: GLOMERULAR FILTRATION RATE 30 ML/MIN (>89)
[2017-07-25 05:56] LABS: ALKALINE PHOSPHATASE 131 U/L (45-117)
[2017-07-25 08:16] VITALS: PULSE 67; RESP 20; TEMP 96.9; O2SAT 97
[2017-07-25] MEDS: FERROUS SULFATE 325 MG (65 MG ELEMENTAL IRON) TAB PO SCH ×2 (08:26→17:12)
[2017-07-25] MEDS: FLUCONAZOLE 100 MG TAB PO SCH (08:28)
[2017-07-25] MEDS: PREGABALIN 75 MG CAP PO SCH (08:28)
[2017-07-25] MEDS: AMOXICILLIN (TRIHYDRATE) 500 MG CAP PO SCH ×2 (08:28→20:23)
[2017-07-25] MEDS: APIXABAN 5 MG TABLET PO SCH ×2 (08:28→20:21)
[2017-07-25] MEDS: MAGNESIUM OXIDE 400 MG TAB PO SCH (08:28)
[2017-07-25] MEDS: METOPROLOL TARTRATE 100 MG TAB PO SCH ×2 (08:28→20:22)
[2017-07-25] MEDS: LACTOBACILLUS ACIDOPHILUS TAB PO SCH ×2 (08:29→20:22)
[2017-07-25] MEDS: PANTOPRAZOLE SOD 20 MG DELAYED RELEASE TAB PO SCH (08:29)
[2017-07-25] MEDS: CALCITRIOL 0.25 MCG CAP PO SCH (08:29)
[2017-07-25] MEDS: DOCUSATE SODIUM 50 MG/SENNA 8.6 MG TAB PO SCH ×2 (08:29→20:23)
[2017-07-25] MEDS: SODIUM CHLORIDE 0.9% FLUSH 10 ML FLUSH IV FLUSH SCH ×2 (08:31→20:21)
[2017-07-25] MEDS: ISOSORBIDE MONONITRATE 60 MG TAB PO SCH (08:36)
[2017-07-25] MEDS: INSULIN ASPART SUPPLEMENTAL SCALE SQ SCH ×4 (08:38→20:27)
[2017-07-25] MEDS: TIOTROPIUM BROMIDE 18 MCG INH INH SCH (08:39)
[2017-07-25] MEDS ORDERED: predniSONE 20 MG TAB PO SCH (09:00)
--- NOTE | 2017-07-25 11:14 | HHI.PR ---
Subjective Remarks Globin improved to 8.9. Creatinine has continued to decrease and is now 2.2. Estimated GFR is at 30. Patient complains of worsening again at his left hand, and this is noticeably inflamed. Distribution and symptoms appear to be gout related. he has a history of gout in His Feet. Staff Reports That Last Evening the Patient Had an Episode of Confusion Where He Was Trying to Get into His Closet. Objective Vital Signs Date Time Temp Pulse Resp B/P (MAP) Pulse Ox O2 Delivery O2 Flow Rate FiO2 07/25/17 08:16 96.9 67 20 97 07/25/17 00:00 98.0 67 20 129/62 (84) 96 07/24/17 20:00 97.0 67 20 144/74 (97) 98 07/24/17 15:31 96.6 63 18 147/68 (94) 100 I/O 07/24/17 07/24/17 07/24/17 07/25/17 07/25/17 07/25/17 07:00 15:00 23:00 07:00 15:00 23:00 Intake Total 240 ml 960 ml 240 ml Output Total 800 ml 600 ml 700 ml Balance -560 ml 360 ml -460 ml Intake Oral 240 ml 960 ml 240 ml Output Urine Total 800 ml 600 ml 700 ml # Voids 1 4 # Bowel Movements 2 0 Result Diagram: 07/25/175 07/25/17 0425 Objective Remarks GENERAL: NAD, A&Ox3 HEAD: Normocephalic. NECK: Supple, trachea midline. No lymphadenopathy. EYES: No scleral icterus. No injection or drainage. CARDIOVASCULAR: Regular rate and rhythm without murmurs, gallops, or rubs. RESPIRATORY: Breath sounds equal bilaterally. No accessory muscle use. GASTROINTESTINAL: Abdomen soft, non-tender, nondistended. MUSCULOSKELETAL: No cyanosis. Erythema and edema of left arm, decreased compared to yesterday. SKIN: Warm and dry. NEURO: No focal neurological deficitis. A/P Problem List: (1) Acute metabolic encephalopathy ICD Code: G93.41 - Metabolic encephalopathy (2) Acute renal failure ICD Code: N17.9 - Acute kidney failure, unspecified (3) Weakness ICD Code: R53.1 - Weakness (4) GABBI (acute kidney injury) ICD Code: N17.9 - Acute kidney failure, unspecified (5) CKD (chronic kidney disease), stage IV ICD Code: N18.4 - Chronic kidney disease, stage 4 (severe) (6) Type 2 diabetes mellitus ICD Code: E11.9 - Type 2 diabetes mellitus without complications (7) Acute on chronic renal insufficiency ICD Code: N28.9 - Disorder of kidney and ureter, unspecified; N18.9 - Chronic kidney disease, unspecified Status: Acute Assessment and Plan Assessment and Plan 71-year-old male admitted secondary to acute renal failure on chronic kidney disease stage IV and bacteremia with encephalopathy. Worsening of left upper extremity swelling. Episode of confusion overnight. Not yet stable for discharge to home. Labs reviewed. Creatinine and hemoglobin are improving. Uric acid level ordered. Continue to monitor renal function and anemia. Labs ordered for continued monitoring. Colchicine started empirically. Continue steroids. Acute kidney injury Acute renal failure Chronic kidney disease stage IV Acute kidney injury/acute renal failure continues to improve Continue to follow renal function Nephrology following Enterococcus faecalis bacteremia Continue ampicillin ID following Acute metabolic encephalopathy Improving Patient's mental status is nearing baseline Hematuria BPH Recent TURP Follow as an outpatient with urology Continue Flomax Diabetes mellitus type 2 Follow blood sugars Insulin sliding scale Diabetic diet Coronary artery disease History of CABG Status post coronary stent one month ago Continue Eliquis Continue metoprolol Continue statin Follow-up with cardiology as an outpatient Chronic systolic CHF Pedal edema Estimated EF is 45% based on last echo Continue metoprolol Continue SHANIA hose Follow clinically for any fluid overload Left forearm pain Superficial venous thrombus (cephalic vein) Edema worsened compared to yesterday Repeat ultrasound Compresses as needed Elevate arm Continue Eliquis Continue pain treatments as needed Chronic rash Possible psoriasis Continue Diflucan Continue topical steroid History of CVA Continue statin Continue Eliquis Follow clinically Paroxysmal A. fib Continue Eliquis Continue metoprolol Follow clinically Fibromyalgia Continue Lyrica History of gastric ulcer Continue PPI DVT prophylaxis Eliquis Discharge planning Plan for discharge to home tomorrow if patient shows more stability Problem Qualifiers (1) Type 2 diabetes mellitus: Adan Lam MD Jul 25, 2017 11:14
[2017-07-25] MEDS ORDERED: COLCHICINE 0.6 MG TAB PO ONE (12:00)
[2017-07-25] MEDS: NYSTATIN/TRIAMCINOLONE CREAM 15 GM TOPICAL SCH ×2 (12:00→23:01)
[2017-07-25] MEDS: SODIUM CHLOR 0.9% 1000 ML INJ 1,000 ML IV SCH (12:06)
[2017-07-25 20:00] VITALS: BP 150/72; PULSE 64; RESP 20; TEMP 98.2; O2SAT 97
[2017-07-25] MEDS: predniSONE 20 MG TAB PO SCH (20:21)
[2017-07-25] MEDS: COLCHICINE 0.6 MG TAB PO SCH (20:21)
[2017-07-25] MEDS: TAMSULOSIN HCL 0.4 MG CAP PO SCH (20:22)
[2017-07-25] MEDS: ATORVASTATIN 40 MG TAB PO SCH (20:22)
--- NOTE | 2017-07-25 22:44 | HHI.NPPN ---
Subjective History of Present Illness 71-year-old male with a past medical history of hypertension, diabetes mellitus, chronic kidney disease, history of prostatic hypertrophy, ischemic heart disease, atrial fibrillation, hyperlipidemia, gout, chronic anemia, chronic obstructive pulmonary disease, came to the hospital with generalized weakness. I was called to see the patient because of elevated BUN and creatinine. The patient was admitted on July 02 and he had a creatinine of 3.4 on admission which improved to 1.7-1.8 and was stable until five days ago when it started going up and now it has gone up to 7.3. Additional Remarks Patient is alert, sitting on the chair, still not eating well. Review of Systems General Constitutional: Fatigue Cardiovascular Cardiac: PALACIOS Objective Data Data 07/25/17 07/26/17 19:00 07:00 Intake Total 960 ml Balance 960 ml Intake Oral 960 ml # Voids 3 # Bowel Movements 2 Vital Signs Date Time Temp Pulse Resp B/P (MAP) Pulse Ox O2 Delivery O2 Flow Rate FiO2 07/25/17 20:00 98.2 64 20 150/72 (98) 97 07/25/17 08:16 96.9 67 20 97 07/25/17 00:00 98.0 67 20 129/62 (84) 96 -: 07/25/17 0425 07/25/17 0425 Physical Exam General Appearance: No Acute Distress, Comfortable Eyes Eye Exam: Pupils Equal Neck Neck Exam: Neck Supple Pulmonary Resp Exam: No Distress, Rhonchi, Decreased Bases, Diminished Breath Sounds Cardiology CV Exam: Regular, Normal Sinus Rhythm Gastrointestinal/Abdomen GI Exam: Soft, Non-Tender, Bowel Sounds Present, Distended Extremeties Extremities Exam: Trace Edema Neurologic Neuro Exam: Alert, Awake Psychiatric Psych Exam: Appropriate Responses Assessment/Plan Assessment Summary: GABBI/Acute Renal Failure, CKD Stage III Problem List: (1) Cerebrovascular disease ICD Codes: I67.9 - Cerebrovascular disease, unspecified (2) Generalized pain ICD Codes: R52 - Pain, unspecified (3) Type 2 diabetes mellitus ICD Codes: E11.9 - Type 2 diabetes mellitus without complications (4) Chronic systolic CHF (congestive heart failure) ICD Codes: I50.22 - Chronic systolic (congestive) heart failure (5) CKD (chronic kidney disease), stage IV ICD Codes: N18.4 - Chronic kidney disease, stage 4 (severe) (6) GABBI (acute kidney injury) ICD Codes: N17.9 - Acute kidney failure, unspecified Plan Patient has chronic kidney disease and baseline Creatinine is close to 1.7-1.8. Developed GABBI, possibly obstructive or pre renal with ATN and possible AIN causing GABBI. Started passing more urine after the Mansfield catheter. Renal function continues to improve. Creatinine improve to 2.2. Encourage oral fluids. Continue to hold Lasix and Lisinopril. Follow urine out put and BMP. Problem Qualifiers (1) Type 2 diabetes mellitus: Aleksandra Tillman MD Jul 25, 2017 22:43
[2017-07-26] VITALS: BP 154/78; PULSE 54; RESP 20; TEMP 98; O2SAT 100
[2017-07-26] MEDS: LEVOTHYROXINE SODIUM 200 MCG TAB PO SCH (05:45)
[2017-07-26 08:00] VITALS: BP 143/74; PULSE 66; RESP 22; TEMP 97.9; O2SAT 100
[2017-07-26] MEDS: INSULIN ASPART SUPPLEMENTAL SCALE SQ SCH ×3 (08:00→20:36)
[2017-07-26] MEDS: ISOSORBIDE MONONITRATE 60 MG TAB PO SCH (09:00)
[2017-07-26] MEDS: CALCITRIOL 0.25 MCG CAP PO SCH (09:00)
[2017-07-26] MEDS: SODIUM CHLORIDE 0.9% FLUSH 10 ML FLUSH IV FLUSH SCH ×2 (09:00→20:35)
[2017-07-26] MEDS: TIOTROPIUM BROMIDE 18 MCG INH INH SCH (09:20)
[2017-07-26] MEDS: LACTOBACILLUS ACIDOPHILUS TAB PO SCH ×2 (09:21→20:35)
[2017-07-26] MEDS: COLCHICINE 0.6 MG TAB PO SCH (09:21)
[2017-07-26] MEDS: DOCUSATE SODIUM 50 MG/SENNA 8.6 MG TAB PO SCH ×2 (09:22→20:35)
[2017-07-26] MEDS: METOPROLOL TARTRATE 100 MG TAB PO SCH ×2 (09:22→20:35)
[2017-07-26] MEDS: FERROUS SULFATE 325 MG (65 MG ELEMENTAL IRON) TAB PO SCH ×2 (09:22→17:50)
[2017-07-26] MEDS: PANTOPRAZOLE SOD 20 MG DELAYED RELEASE TAB PO SCH (09:22)
[2017-07-26] MEDS: AMOXICILLIN (TRIHYDRATE) 500 MG CAP PO SCH (09:22)
[2017-07-26] MEDS: PREGABALIN 75 MG CAP PO SCH (09:22)
[2017-07-26] MEDS: MAGNESIUM OXIDE 400 MG TAB PO SCH (09:23)
[2017-07-26] MEDS: FLUCONAZOLE 100 MG TAB PO SCH (09:23)
[2017-07-26] MEDS: APIXABAN 5 MG TABLET PO SCH ×2 (09:23→20:36)
[2017-07-26] MEDS: predniSONE 20 MG TAB PO SCH ×2 (09:23→20:36)
--- NOTE | 2017-07-26 10:07 | HHI.NPPN ---
Subjective History of Present Illness 71-year-old male with a past medical history of hypertension, diabetes mellitus, chronic kidney disease, history of prostatic hypertrophy, ischemic heart disease, atrial fibrillation, hyperlipidemia, gout, chronic anemia, chronic obstructive pulmonary disease, came to the hospital with generalized weakness. I was called to see the patient because of elevated BUN and creatinine. The patient was admitted on July 02 and he had a creatinine of 3.4 on admission which improved to 1.7-1.8 and was stable until five days ago when it started going up and now it has gone up to 7.3. Additional Remarks Patient is alert, clinically same, not in distress, not eating well. Review of Systems General Constitutional: Fatigue Cardiovascular Cardiac: PALACIOS Objective Data Data Vital Signs Date Time Temp Pulse Resp B/P (MAP) Pulse Ox O2 Delivery O2 Flow Rate FiO2 07/26/17 00:00 98.0 54 20 154/78 (103) 100 07/25/17 20:00 98.2 64 20 150/72 (98) 97 -: 07/25/17 0425 07/25/17 0425 Physical Exam General Appearance: No Acute Distress, Comfortable Eyes Eye Exam: Pupils Equal Neck Neck Exam: Neck Supple Pulmonary Resp Exam: No Distress, Rhonchi, Decreased Bases, Diminished Breath Sounds Cardiology CV Exam: Regular, Normal Sinus Rhythm Gastrointestinal/Abdomen GI Exam: Soft, Non-Tender, Bowel Sounds Present, Distended Extremeties Extremities Exam: Trace Edema Neurologic Neuro Exam: Alert, Awake Psychiatric Psych Exam: Appropriate Responses Assessment/Plan Assessment Summary: GABBI/Acute Renal Failure, CKD Stage III Problem List: (1) Cerebrovascular disease ICD Codes: I67.9 - Cerebrovascular disease, unspecified (2) Generalized pain ICD Codes: R52 - Pain, unspecified (3) Type 2 diabetes mellitus ICD Codes: E11.9 - Type 2 diabetes mellitus without complications (4) Chronic systolic CHF (congestive heart failure) ICD Codes: I50.22 - Chronic systolic (congestive) heart failure (5) CKD (chronic kidney disease), stage IV ICD Codes: N18.4 - Chronic kidney disease, stage 4 (severe) (6) GABBI (acute kidney injury) ICD Codes: N17.9 - Acute kidney failure, unspecified Plan Patient has chronic kidney disease and baseline Creatinine is close to 1.7-1.8. Developed GABBI, possibly obstructive or pre renal with ATN and possible AIN causing GABBI. Started passing more urine after the Mansfield catheter. Renal function continues to improve. Creatinine improve to 2.2 yesterday, now new BMP today. Continue to hold Lasix and Lisinopril. Follow urine out put and BMP. Encourage oral intake. Problem Qualifiers (1) Type 2 diabetes mellitus: Aleksandra Tillman MD Jul 26, 2017 10:07
[2017-07-26 12:00] VITALS: BP 148/70; PULSE 61; RESP 20; TEMP 98; O2SAT 98
[2017-07-26] MEDS: NYSTATIN/TRIAMCINOLONE CREAM 15 GM TOPICAL SCH (12:00)
[2017-07-26] MEDS: SODIUM CHLOR 0.9% 1000 ML INJ 1,000 ML IV SCH (12:29)
--- NOTE | 2017-07-26 12:30 | HHI.PR ---
Subjective Remarks Follow-up for renal failure. Patient states left hand swelling is a chronic issue and was told he has clots in the past, but the swelling has worsened overnight. When asked about fevers or chills, he states he was cold all night. Patient has chronic shortness of breath. States he had pink tinged urine one hour ago, but is urinating better than before. Objective Vitals Vital Signs Date Time Temp Pulse Resp B/P (MAP) Pulse Ox O2 Delivery O2 Flow Rate FiO2 07/26/17 08:00 97.9 66 22 143/74 (97) 100 07/26/17 00:00 98.0 54 20 154/78 (103) 100 07/25/17 20:00 98.2 64 20 150/72 (98) 97 I/O 07/25/17 07/25/17 07/25/17 07/26/17 07/26/17 07/26/17 07:00 15:00 23:00 07:00 15:00 23:00 Intake Total 240 ml 960 ml 240 ml Output Total 700 ml 800 ml Balance -460 ml 960 ml -560 ml Intake Oral 240 ml 960 ml 240 ml Output Urine Total 700 ml 800 ml # Voids 4 3 # Bowel Movements 0 2 1 Result Diagram: 07/25/17 0425 07/25/17 0425 Imaging Last Impressions Upper Extremity Ultrasound 07/21/17 0000 Signed Impressions: Service Date/Time: Friday, July 21, 2017 13:21 - CONCLUSION: 1. Interval resolution of occlusive thrombus in the distal cephalic vein at the wrist. 2. No sonographic evidence for left upper extremity DVT. Arcadio Chaves MD Head CT 07/19/17 1044 Signed Impressions: Service Date/Time: Wednesday, July 19, 2017 11:05 - CONCLUSION: Negative for an acute process. Troy Dominguez MD FACR Chest X-Ray 07/15/17 0000 Signed Impressions: Service Date/Time: Saturday, July 15, 2017 13:21 - CONCLUSION: Underinflation with atelectasis at the lung bases. Otherwise, no definite acute finding is appreciated given the technique. Ashvin Meza MD Renal Ultrasound 07/13/17 0000 Signed Impressions: Service Date/Time: June 15:00 - CONCLUSION: Negative exam. Of note, stones identified in the collecting system on the prior CT are not well-seen on today's study. Raleigh Guillen MD Abdomen/Pelvis CT 07/02/17 0000 Signed Impressions: Service Date/Time: Sunday, July 02, 2017 16:45 - CONCLUSION: 9-10 mm right kidney stone. No hydronephrosis. Otherwise benign focally unremarkable CT appearance of the abdomen and pelvis. Ashvin Pereira MD Objective Remarks GENERAL: Unpleasant obese, well developed patient in no apparent distress sitting in recliner. SKIN: No erythema to the L hand. CARDIOVASCULAR: Regular rate and rhythm. RESPIRATORY: No accessory muscle use. Clear to auscultation. Breath sounds equal bilaterally. MUSCULOSKELETAL: Swelling Left hand visible. Patient does not allow exam. BACK: No CVA tenderness bilaterally. NEUROLOGICAL: Awake and alert. Normal speech. PSYCHIATRIC: Frustrated mood. Urinary Catheter: No Vascular Central Line Catheter: No A/P Problem List: (1) GABBI (acute kidney injury) ICD Code: N17.9 - Acute kidney failure, unspecified (2) CKD (chronic kidney disease), stage IV ICD Code: N18.4 - Chronic kidney disease, stage 4 (severe) (3) Type 2 diabetes mellitus ICD Code: E11.9 - Type 2 diabetes mellitus without complications (4) UTI (urinary tract infection) ICD Code: N39.0 - Urinary tract infection, site not specified Status: Acute (5) Weakness ICD Code: R53.1 - Weakness (6) Chronic systolic CHF (congestive heart failure) ICD Code: I50.22 - Chronic systolic (congestive) heart failure (7) Coronary artery disease ICD Code: I25.10 - Atherosclerotic heart disease of [place] coronary artery without angina pectoris (8) Acute renal failure ICD Code: N17.9 - Acute kidney failure, unspecified (9) Acute metabolic encephalopathy ICD Code: G93.41 - Metabolic encephalopathy (10) Generalized pain ICD Code: R52 - Pain, unspecified (11) Cerebrovascular disease ICD Code: I67.9 - Cerebrovascular disease, unspecified Assessment and Plan 71-year-old male admitted secondary to acute renal failure on chronic kidney disease stage IV and bacteremia with encephalopathy. Acute kidney injury Acute renal failure Chronic kidney disease stage IV Acute kidney injury/acute renal failure continues to improve Nephrology following Avoid nephrotoxins 07/26: Refusing IV fluids. Repeat am BMP. Enterococcus faecalis bacteremia ID following S/p ampicillin, currently on amoxicllin. 07/26: I contacted ID, Dr. Myrick, can discontinue Amoxicillin. Acute metabolic encephalopathy Improving Patient's mental status is nearing baseline Hematuria BPH Recent TURP Follow as an outpatient with urology Continue Flomax 07/26: Again had pink tinged urine this morning. Urine output normal. H/o this. Hemoglobin stable today. Discussed with Dr. Richardson. No other workup necessary at this time. Monitor clinically. Diabetes mellitus type 2 Diabetic diet Bedside Accu-checks 07/26: BGLs elevated 320 last night, 230's today. Will change SSI from low to high dose. Patient has refused long acting insulin on this hospitalization so will not restart. Coronary artery disease History of CABG Status post coronary stent one month ago Continue Eliquis Continue metoprolol Continue statin Follow-up with cardiology as an outpatient Chronic systolic CHF Pedal edema Estimated EF is 45% based on last echo Continue metoprolol Continue SHANIA guye Continue to hold Lisinopril and Lasix due to renal failure. Follow clinically for any fluid overload. Left forearm pain Superficial venous thrombus (cephalic vein) Evident on 07/18 Doppler US Repeat Doppler on 07/21 with interval resolution of occlusive thrombus in the distal cephalic vein at the wrist. No DVT. Compresses as needed Elevate arm Continue Eliquis Continue pain treatments as needed 07/26: Patient states L hand swelling is worse although is a chronic issue per patient and had recent Doppler negative for DVT. Patient was started on colchicine and prednisone for gout yesterday. Will discontinue Colchicine due to impaired renal function. Continue prednisone. Dr. Richardson will evaluate. Chronic anemia 07/26: Hemoglobin improved at 9.1. Chronic rash Possible psoriasis Patient refusing Nystatin/Triamcinolone 07/26: Discontinue Dilfucan History of CVA Continue statin Continue Eliquis Follow clinically Paroxysmal A. fib Continue Eliquis Continue metoprolol Follow clinically Fibromyalgia Continue Lyrica History of gastric ulcer Continue PPI DVT prophylaxis Eliquis Problem Qualifiers (1) Type 2 diabetes mellitus: (2) UTI (urinary tract infection): Qualified Codes: N39.0 - Urinary tract infection, site not specified; R31.9 - Hematuria, unspecified Kavita Jones Jul 26, 2017 12:30
[2017-07-26 16:00] VITALS: BP 138/77; PULSE 59; RESP 20; TEMP 97.6; O2SAT 99
--- NOTE | 2017-07-26 17:03 | RADRPT ---
EXAM DATE/TIME: 07/26/2017 16:36 [facility] COMPARISON: No previous studies available for comparison. INDICATIONS : Left forearm pain from unknown injury. MEDICAL HISTORY : Hypercholesterolemia. Hypertension. Chronic obstructive pulmonary disease. Cerebrovascular accident. Carpel tunnel. Myocardial infarction. Congestive heart failure. Coronary artery disease. Asthma. Yvrose l disease. Kidney stones. Urinary tract infection. Prostate problems. Arthritis. Liver disease. SURGICAL HISTORY : Cardiac bypass. Coronary artery bypass graft. ENCOUNTER: Initial ACUITY: 1 week PAIN SCORE: 10/10 LOCATION: Left forearm. FINDINGS: Two view examination of the left forearm demonstrates no evidence of fracture or dislocation. Bony m ineralization is normal. The soft tissue structures are intact. Vascular calcifications noted. CONCLUSION: No acute bony process Ashvin Pereira MD on July 26, 2017 at 17:00 Board Certified Radiologist. This report was verified electronically.
[2017-07-26 20:00] VITALS: BP 143/72; PULSE 63; RESP 20; TEMP 97; O2SAT 97
[2017-07-26] MEDS: TAMSULOSIN HCL 0.4 MG CAP PO SCH (20:35)
[2017-07-26] MEDS: ATORVASTATIN 40 MG TAB PO SCH (20:35)
[2017-07-27] MEDS: LEVOTHYROXINE SODIUM 200 MCG TAB PO SCH (05:41)
[2017-07-27] MEDS: INSULIN ASPART SUPPLEMENTAL SCALE SQ SCH ×4 (08:00→21:00)
[2017-07-27 08:41] VITALS: BP 155/86; PULSE 63; RESP 14; TEMP 96.3; O2SAT 98
[2017-07-27] MEDS: PANTOPRAZOLE SOD 20 MG DELAYED RELEASE TAB PO SCH (08:46)
[2017-07-27] MEDS: MAGNESIUM OXIDE 400 MG TAB PO SCH (08:47)
[2017-07-27] MEDS: METOPROLOL TARTRATE 100 MG TAB PO SCH ×2 (08:47→21:20)
[2017-07-27] MEDS: APIXABAN 5 MG TABLET PO SCH ×2 (08:48→21:21)
[2017-07-27] MEDS: ISOSORBIDE MONONITRATE 60 MG TAB PO SCH (08:48)
[2017-07-27] MEDS: LACTOBACILLUS ACIDOPHILUS TAB PO SCH ×2 (08:48→21:21)
[2017-07-27] MEDS: PREGABALIN 75 MG CAP PO SCH (08:48)
[2017-07-27] MEDS: TIOTROPIUM BROMIDE 18 MCG INH INH SCH (08:48)
[2017-07-27] MEDS: FERROUS SULFATE 325 MG (65 MG ELEMENTAL IRON) TAB PO SCH ×2 (08:48→17:56)
[2017-07-27] MEDS: predniSONE 20 MG TAB PO SCH (08:49)
[2017-07-27] MEDS: CALCITRIOL 0.25 MCG CAP PO SCH (08:49)
[2017-07-27] MEDS: DOCUSATE SODIUM 50 MG/SENNA 8.6 MG TAB PO SCH ×2 (08:49→21:21)
[2017-07-27] MEDS: SODIUM CHLORIDE 0.9% FLUSH 10 ML FLUSH IV FLUSH SCH ×2 (08:49→21:00)
--- NOTE | 2017-07-27 09:01 | HHI.PR ---
Subjective Remarks Follow-up for acute renal failure, left hand and forearm swelling. Patient complains that he was "freezing all night" despite the thermostat being at the highest temperature. I told him I would let someone know. When I told him this he basically implied that no one would come. I told him I do not personally know the maintenance people but I will have the unit controller contact them. States he does not want the prednisone because it raises his blood sugar. EMR indicates the patient has been refusing his IV fluids although the patient denies this. Continues to be a difficult patient. Objective Vitals Vital Signs Date Time Temp Pulse Resp B/P (MAP) Pulse Ox O2 Delivery O2 Flow Rate FiO2 07/27/17 08:41 96.3 63 14 155/86 (109) 98 07/26/17 20:00 97.0 63 20 143/72 (95) 97 07/26/17 16:42 20 07/26/17 16:00 97.6 59 20 138/77 (97) 99 07/26/17 12:00 98.0 61 20 148/70 (96) 98 07/26/17 10:22 20 I/O 07/26/17 07/26/17 07/26/17 07/27/17 07/27/17 07/27/17 07:00 15:00 23:00 07:00 15:00 23:00 Intake Total 240 ml 800 ml Output Total 800 ml Balance -560 ml 800 ml Intake Oral 240 ml 800 ml Output Urine Total 800 ml # Voids 5 # Bowel Movements 1 0 Result Diagram: 07/26/17 3190 07/25/17 8615 Objective Remarks GENERAL: Unpleasant obese, well developed patient in no apparent distress laying on his side shivering in bed. CARDIOVASCULAR: Regular rate and rhythm. RESPIRATORY: No accessory muscle use. Clear to auscultation. Breath sounds equal bilaterally. NEUROLOGICAL: Awake and alert. Normal speech. PSYCHIATRIC: Frustrated mood. Urinary Catheter: No Vascular Central Line Catheter: No A/P Problem List: (1) GABBI (acute kidney injury) ICD Code: N17.9 - Acute kidney failure, unspecified (2) CKD (chronic kidney disease), stage IV ICD Code: N18.4 - Chronic kidney disease, stage 4 (severe) (3) Type 2 diabetes mellitus ICD Code: E11.9 - Type 2 diabetes mellitus without complications (4) UTI (urinary tract infection) ICD Code: N39.0 - Urinary tract infection, site not specified Status: Acute (5) Weakness ICD Code: R53.1 - Weakness (6) Chronic systolic CHF (congestive heart failure) ICD Code: I50.22 - Chronic systolic (congestive) heart failure (7) Coronary artery disease ICD Code: I25.10 - Atherosclerotic heart disease of [place] coronary artery without angina pectoris (8) Acute renal failure ICD Code: N17.9 - Acute kidney failure, unspecified (9) Acute metabolic encephalopathy ICD Code: G93.41 - Metabolic encephalopathy (10) Generalized pain ICD Code: R52 - Pain, unspecified (11) Cerebrovascular disease ICD Code: I67.9 - Cerebrovascular disease, unspecified Assessment and Plan 71-year-old male admitted secondary to acute renal failure on chronic kidney disease stage IV and bacteremia with encephalopathy. Acute renal failure: Improving Chronic kidney disease stage IV Acute kidney injury/acute renal failure continues to improve Nephrology following Avoid nephrotoxins 07/27: Documented that patient is refusing IV fluids although he denies this. BMP today with improving BUN/Cr of 47/2.10. Continue to monitor. Enterococcus faecalis bacteremia ID following S/p ampicillin Amoxicillin discontinued on 07/26. Acute metabolic encephalopathy Improving Patient's mental status is nearing baseline Hematuria BPH Recent TURP Follow as an outpatient with urology Continue Flomax 07/26: Again had pink tinged urine this morning. Urine output normal. H/o this. Hemoglobin stable. Discussed with Dr. Richardson. No other workup necessary at this time. Monitor clinically. Diabetes mellitus type 2 Diabetic diet Bedside Accu-checks 07/26: BGLs elevated 320 last night, 230's today. Will change SSI from low to high dose. Patient has refused long acting insulin on this hospitalization so will not restart. 07/27: Patient refusing Accu-Checks and sliding scale insulin. He apparently told the nurse that the prednisone will falsely elevate his blood sugar and does not want it rechecked until Monday. BGL 269 on labs this morning. I explained to the patient that there is even more of a reason to check his blood sugar levels having been on prednisone, but he does not understand this. He states his BGLs are normally in the 90s when off of Prednisone. I told him I discontinued the Prednisone, but warned him that without checking his BGLs today he could be at risk for DKA if his BGLs become even more elevated. The patient does not know what DKA is and I educated him on it informing him of the symptoms and informing him it could cause . The patient essentially stated that he did not care if he . He states the insulin makes him feel ill, but when I asked him what he was taking prior to hospitalization he tells me Novolog and Lantus. I told him we had him on Levemir at one point, which is an equivalent to Lantus used here in the hospital, but he refused this. He states it did not work. I told him the only way we could give him Lantus is if he brought his own prescription. He then tells me to call [facility]. I told him we have record of his appropriate home meds and I cannot obtain his medications for him. I told him we have him on Novolog. He then tells me that no one is helping him. When I told him I am trying to help him he states I am "forcing" him to take medications. I told him I am not forcing medications but I am responsible for medically educating him. He continues to be difficult. I could not get through to the patient and had to walk out of the room. Patient has already been evaluated by psychiatry for suicidal statement during this hospitalization and was diagnosed with adjustment d/o with depressed mood which he is again exhibiting. Discussed with Dr. Richardson; does not recommend psych reconsultation. Will discuss with case management as patient is stable and has refused placement in several facilities. Can consider palliative care consult, but unsure what they may be able to do for the patient. Coronary artery disease History of CABG Status post coronary stent one month ago Continue Eliquis Continue metoprolol Continue statin Follow-up with cardiology as an outpatient Chronic systolic CHF Pedal edema Estimated EF is 45% based on last echo Continue metoprolol Continue SHANIA lewis Continue to hold Lisinopril and Lasix due to renal failure. Follow clinically for any fluid overload. 07/27: Hypertensive this morning prior to Metoprolol administration. Will monitor. Left forearm pain Superficial venous thrombus (cephalic vein) Evident on 07/18 Doppler US Repeat Doppler on 07/21 with interval resolution of occlusive thrombus in the distal cephalic vein at the wrist. No DVT. Compresses as needed Elevate arm Continue Eliquis Continue pain treatments as needed 07/27: Left forearm x-rays obtained yesterday were personally reviewed and reveal no acute bony abnormality. There are vascular calcifications present. Patient refusing Prednisone. Will discontinue. Decrease Oxycodone dose from 10 mg q4h prn pain 6-10 to 5 mg prn pain 4-10. Chronic anemia 07/26: Hemoglobin improved at 9.1. Chronic rash Possible psoriasis S/p Diflucan Patient refusing Nystatin/Triamcinolone History of CVA Continue statin Continue Eliquis Follow clinically Paroxysmal A. fib Continue Eliquis Continue metoprolol Follow clinically Fibromyalgia Continue Lyrica History of gastric ulcer Continue PPI DVT prophylaxis Eliquis Discharge Planning 07/27/17: Per CM patient had been accepted by several facilities, but refused them all. Problem Qualifiers (1) Type 2 diabetes mellitus: (2) UTI (urinary tract infection): Qualified Codes: N39.0 - Urinary tract infection, site not specified; R31.9 - Hematuria, unspecified Kavita Jones Jul 27, 2017 09:01
[2017-07-27 11:27] LABS: POTASSIUM 4.1 MEQ/L (3.5-5.1)
[2017-07-27 11:30] LABS: BICARBONATE 25.7 MEQ/L (21.0-32.0)
[2017-07-27 12:00] VITALS: BP 132/69; PULSE 56; RESP 21; TEMP 96; O2SAT 100
[2017-07-27] MEDS: NYSTATIN/TRIAMCINOLONE CREAM 15 GM TOPICAL SCH ×2 (12:00)
[2017-07-27] MEDS: SODIUM CHLOR 0.9% 1000 ML INJ 1,000 ML IV SCH (12:18)
[2017-07-27 16:00] VITALS: BP 158/76; PULSE 57; RESP 21; TEMP 96.7; O2SAT 99
[2017-07-27 20:00] VITALS: BP 142/59; PULSE 62; RESP 20; TEMP 96.3; O2SAT 98
[2017-07-27] MEDS: ATORVASTATIN 40 MG TAB PO SCH (21:20)
[2017-07-27] MEDS: TAMSULOSIN HCL 0.4 MG CAP PO SCH (21:20)
--- NOTE | 2017-07-27 21:46 | HHI.NPPN ---
Subjective History of Present Illness 71-year-old male with a past medical history of hypertension, diabetes mellitus, chronic kidney disease, history of prostatic hypertrophy, ischemic heart disease, atrial fibrillation, hyperlipidemia, gout, chronic anemia, chronic obstructive pulmonary disease, came to the hospital with generalized weakness. I was called to see the patient because of elevated BUN and creatinine. The patient was admitted on July 02 and he had a creatinine of 3.4 on admission which improved to 1.7-1.8 and was stable until five days ago when it started going up and now it has gone up to 7.3. Additional Remarks Patient is alert, clinically same, not in distress, clinically same. Review of Systems General Constitutional: Fatigue Cardiovascular Cardiac: PALACIOS Objective Data Data 07/27/17 07/28/17 19:00 07:00 # Voids 4 # Bowel Movements 2 Vital Signs Date Time Temp Pulse Resp B/P (MAP) Pulse Ox O2 Delivery O2 Flow Rate FiO2 07/27/17 16:00 96.7 57 21 158/76 (103) 99 07/27/17 12:00 96.0 56 21 132/69 (90) 100 07/27/17 08:41 96.3 63 14 155/86 (109) 98 -: 07/26/17 1355 07/27/17 1040 Physical Exam General Appearance: No Acute Distress, Comfortable Eyes Eye Exam: Pupils Equal Neck Neck Exam: Neck Supple Pulmonary Resp Exam: No Distress, Rhonchi, Decreased Bases, Diminished Breath Sounds Cardiology CV Exam: Regular, Normal Sinus Rhythm Gastrointestinal/Abdomen GI Exam: Soft, Non-Tender, Bowel Sounds Present, Distended Extremeties Extremities Exam: Trace Edema Neurologic Neuro Exam: Alert, Awake Psychiatric Psych Exam: Appropriate Responses Assessment/Plan Assessment Summary: GABBI/Acute Renal Failure, CKD Stage III Problem List: (1) Cerebrovascular disease ICD Codes: I67.9 - Cerebrovascular disease, unspecified (2) Generalized pain ICD Codes: R52 - Pain, unspecified (3) Type 2 diabetes mellitus ICD Codes: E11.9 - Type 2 diabetes mellitus without complications (4) Chronic systolic CHF (congestive heart failure) ICD Codes: I50.22 - Chronic systolic (congestive) heart failure (5) CKD (chronic kidney disease), stage IV ICD Codes: N18.4 - Chronic kidney disease, stage 4 (severe) (6) GABBI (acute kidney injury) ICD Codes: N17.9 - Acute kidney failure, unspecified Plan Patient has chronic kidney disease and baseline Creatinine is close to 1.7-1.8. Developed GABBI, possibly obstructive or pre renal with ATN and possible AIN causing GABBI. Started passing more urine after the [place] catheter. Renal function continues to improve. Creatinine continue to improve now 2.1. Continue to hold Lasix and Lisinopril. Follow urine out put and BMP. Encourage oral intake. Avoid Nephrotoxins. Getting close to his baseline Creatinine. Problem Qualifiers (1) Type 2 diabetes mellitus: Aleksandra Tillman MD Jul 27, 2017 21:46
[2017-07-28] VITALS: BP 159/75; PULSE 52; RESP 20; TEMP 96.3; O2SAT 98
[2017-07-28] MEDS: LEVOTHYROXINE SODIUM 200 MCG TAB PO SCH (06:30)
[2017-07-28] MEDS: INSULIN ASPART SUPPLEMENTAL SCALE SQ SCH ×2 (07:58→12:00)
[2017-07-28 08:00] VITALS: BP 165/76; PULSE 58; RESP 20; TEMP 97.7; O2SAT 96
[2017-07-28] MEDS: FERROUS SULFATE 325 MG (65 MG ELEMENTAL IRON) TAB PO SCH (08:30)
[2017-07-28] MEDS: METOPROLOL TARTRATE 100 MG TAB PO SCH (08:30)
[2017-07-28] MEDS: PREGABALIN 75 MG CAP PO SCH (08:30)
[2017-07-28] MEDS: PANTOPRAZOLE SOD 20 MG DELAYED RELEASE TAB PO SCH (08:30)
[2017-07-28] MEDS: CALCITRIOL 0.25 MCG CAP PO SCH (08:30)
[2017-07-28] MEDS: DOCUSATE SODIUM 50 MG/SENNA 8.6 MG TAB PO SCH (08:30)
[2017-07-28] MEDS: LACTOBACILLUS ACIDOPHILUS TAB PO SCH (08:30)
[2017-07-28] MEDS: MAGNESIUM OXIDE 400 MG TAB PO SCH (08:30)
[2017-07-28] MEDS: TIOTROPIUM BROMIDE 18 MCG INH INH SCH (08:31)
[2017-07-28] MEDS: SODIUM CHLORIDE 0.9% FLUSH 10 ML FLUSH IV FLUSH SCH (08:31)
[2017-07-28] MEDS: APIXABAN 5 MG TABLET PO SCH (08:31)
[2017-07-28] MEDS: ISOSORBIDE MONONITRATE 60 MG TAB PO SCH (09:00)
--- NOTE | 2017-07-28 10:16 | HHI.FF ---
Face to Face Verification Diagnosis: (1) Acute on chronic renal insufficiency (2) Adjustment disorder with depressed mood (3) Superficial venous thrombosis of left arm (4) Left arm swelling (5) Bilateral lower extremity edema (6) Hematuria (7) Bacteremia (8) Type 2 diabetes mellitus (9) Non compliance with medical treatment Physical Therapy Order: Evaluate and Treat, Improve ambulation, Strength and gait training Home Health Nursing Order: Medical education Signs/symptoms of disease process Diabetic education Medication education-adverse effect Wound care and dressing changes (apply [place] with JEANNE wraps to legs for weeping edema) Nursing assessment with vital signs I have seen patient Jonel Monteiro on 07/28/17. My clinical findings support the need for the requested home health care services because: Patient has SOB Deconditioned w/ increased weakness Med compliance is questionable Limited ability to care for self Need for psychosocial assistance High risk of falls I certify that my clinical findings support that this patient is homebound because: Hx COPD- exertion dyspnea/weakness Unsafe to leave home unassisted Need for psychosocial assistance Kavita Jones Jul 28, 2017 10:16
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
--- NOTE | 2017-07-28 10:23 | HHI.NPPN ---
Subjective History of Present Illness 71-year-old male with a past medical history of hypertension, diabetes mellitus, chronic kidney disease, history of prostatic hypertrophy, ischemic heart disease, atrial fibrillation, hyperlipidemia, gout, chronic anemia, chronic obstructive pulmonary disease, came to the hospital with generalized weakness. I was called to see the patient because of elevated BUN and creatinine. The patient was admitted on July 02 and he had a creatinine of 3.4 on admission which improved to 1.7-1.8 and was stable until five days ago when it started going up and now it has gone up to 7.3. Additional Remarks Patient is alert, clinically same, not in distress, mild SOB on exertion eating better. Review of Systems General Constitutional: Fatigue Cardiovascular Cardiac: PALACIOS Objective Data Data Vital Signs Date Time Temp Pulse Resp B/P (MAP) Pulse Ox O2 Delivery O2 Flow Rate FiO2 07/28/17 08:00 97.7 58 20 165/76 (105) 96 07/28/17 00:00 96.3 52 20 159/75 (103) 98 07/27/17 20:00 96.3 62 20 142/59 (86) 98 07/27/17 16:00 96.7 57 21 158/76 (103) 99 07/27/17 12:00 96.0 56 21 132/69 (90) 100 -: 07/26/17 1355 07/27/17 1040 Physical Exam General Appearance: No Acute Distress, Comfortable Eyes Eye Exam: Pupils Equal Neck Neck Exam: Neck Supple Pulmonary Resp Exam: No Distress, Rhonchi, Decreased Bases, Diminished Breath Sounds Cardiology CV Exam: Regular, Normal Sinus Rhythm Gastrointestinal/Abdomen GI Exam: Soft, Non-Tender, Bowel Sounds Present, Distended Extremeties Extremities Exam: Trace Edema Neurologic Neuro Exam: Alert, Awake Psychiatric Psych Exam: Appropriate Responses Assessment/Plan Assessment Summary: GABBI/Acute Renal Failure, CKD Stage III Problem List: (1) Cerebrovascular disease ICD Codes: I67.9 - Cerebrovascular disease, unspecified (2) Generalized pain ICD Codes: R52 - Pain, unspecified (3) Type 2 diabetes mellitus ICD Codes: E11.9 - Type 2 diabetes mellitus without complications (4) Chronic systolic CHF (congestive heart failure) ICD Codes: I50.22 - Chronic systolic (congestive) heart failure (5) CKD (chronic kidney disease), stage IV ICD Codes: N18.4 - Chronic kidney disease, stage 4 (severe) (6) GABBI (acute kidney injury) ICD Codes: N17.9 - Acute kidney failure, unspecified Plan Patient has chronic kidney disease and baseline Creatinine is close to 1.7-1.8. Developed GABBI, possibly obstructive or pre renal with ATN and possible AIN causing GABBI. Started passing more urine after the [place] catheter. Renal function continues to improve. Creatinine continue to improve was 2.1 yesterday, no new BMP. Continue to hold Lasix and Lisinopril. Follow urine out put and BMP. Encourage oral intake. Avoid Nephrotoxins. D/C IVF, told to drink more fluid. Problem Qualifiers (1) Type 2 diabetes mellitus: Aleksandra Tillman MD Jul 28, 2017 10:23
[2017-07-28] MEDS ORDERED: Pill Splitter OTHER (10:34)
[2017-07-28] MEDS ORDERED: METO-338 PO (10:34)
[2017-07-28] MEDS ORDERED: APIX5TAB PO (10:34)
[2017-07-28] MEDS ORDERED: PREG25 PO (10:36)
[2017-07-28 12:00] VITALS: BP 169/68; PULSE 55; RESP 20; TEMP 98.1; O2SAT 98
[2017-07-28] MEDS: NYSTATIN/TRIAMCINOLONE CREAM 15 GM TOPICAL SCH ×2 (12:00)
[2017-07-28] MEDS: hydrALAZINE HCL 25 MG TAB PO ONE (14:30)
== END 2017-07-28 15:50 | disposition home health service (06) | DRG 682 ==
LOC: PHED 15:14 → PHEDA 18:23 → OBSVTOIN 19:01 → PH3A 21:37
PROVIDERS: ADMIT Hospitalist; ATTEND Hospitalist
DX: N17.0 Acute kidney failure with tubular necrosis (principal); I50.23 Acute on chronic systolic (congestive) heart failure; G93.41 Metabolic encephalopathy; E87.2 Acidosis; E11.22 Type 2 diabetes mellitus with diabetic chronic kidney disease; R78.81 Bacteremia; G62.9 Polyneuropathy, unspecified; I48.0 Paroxysmal atrial fibrillation; I82.612 Acute embolism and thrombosis of superficial veins of left upper extremity; B37.2 Candidiasis of skin and nail; I13.0 Hypertensive heart and chronic kidney disease with heart failure and stage 1 through stage 4 chronic kidney disease, or unspecified chronic kidney disease; N39.0 Urinary tract infection, site not specified; J98.11 Atelectasis; N18.4 Chronic kidney disease, stage 4 (severe); J43.9 Emphysema, unspecified; D63.1 Anemia in chronic kidney disease; N20.0 Calculus of kidney; E86.0 Dehydration; I25.10 Atherosclerotic heart disease of native coronary artery without angina pectoris; M10.9 Gout, unspecified; E78.5 Hyperlipidemia, unspecified; M79.7 Fibromyalgia; N40.0 Benign prostatic hyperplasia without lower urinary tract symptoms; L29.9 Pruritus, unspecified; R07.9 Chest pain, unspecified; B95.2 Enterococcus as the cause of diseases classified elsewhere; I25.2 Old myocardial infarction; G47.30 Sleep apnea, unspecified; R19.7 Diarrhea, unspecified; L40.0 Psoriasis vulgaris; R09.02 Hypoxemia; F43.21 Adjustment disorder with depressed mood; Z79.01 Long term (current) use of anticoagulants; Z79.4 Long term (current) use of insulin; Z86.73 Personal history of transient ischemic attack (TIA), and cerebral infarction without residual deficits; Z87.891 Personal history of nicotine dependence; Z88.1 Allergy status to other antibiotic agents; Z90.79 Acquired absence of other genital organ(s); Z91.14 Patient's other noncompliance with medication regimen; Z91.19 Patient's noncompliance with other medical treatment and regimen; Z95.1 Presence of aortocoronary bypass graft; Z95.5 Presence of coronary angioplasty implant and graft
CPT/HCPCS: 36430; 70450; 71010; 73090; 74176; 76775; 76937; 80048; 80053; 80069; 81001; 82550; 82948; 83935; 84100; 84300; 84484; 84550; 85018; 85025; 85027; 86021; 86038; 86140; 86160; 86850; 86900; 86901; 86920; 87040; 87077; 87086; 87186; 87205; 87493; 93005; 93306; 93971; 94640; 94664; 95819; 96360; G8987-GP; G8988-GP; J0290; J0696; J1630; J1815; J1940; J2920; J7030; J7040; J7050; J7512; P9016; P9612

== ENCOUNTER 2018-03-30 20:23 | Inpatient (IN) | payer MEDICARE, MEDICAID ==
[~2018-03-30] VITALS: Ht 172.7 cm; Wt 105.4 kg
[~2018-03-30 20:23] MED LIST changes: +APIX5TAB PO; +ATOR40TA16 PO; +B-CO1TAB21 PO; -BUME2TAB PO; +CALC0.25 PO; +CALC500C16 CHEW; +DOCU100T9 PO; +FERR325T18 PO; +ISOS60TA PO; +LANTINJ SQ; -LANTUSP SQ; +LEVO200T4 PO; -LISI-366 PO; -LORT5TAB PO; -LYRI150C PO; +MAGN400T2 PO; +METO-338 PO; -METO50TA OR; -NOVOLOGP2 SQ; -OMEP20TA OR; +OMEP20TA93 PO; +PIOG45TA5 PO; -PRED10PA PO; +PREG25 PO; +Pill Splitter OTHER; -RAMI10CA PO; -SPIR25TA PO; +SPIRCAP INH; -SYNT25TA PO; +TAMS0.4C4 PO
[2018-03-30 20:30] VITALS: BP 170/74; PULSE 79; RESP 18; TEMP 98.3; O2SAT 98
--- NOTE | 2018-03-30 21:23 | PD ---
HPI Chief Complaint: Psychiatric Symptoms Time Seen by Provider: 21:01 Travel History International Travel<30 days: No Contact w/Intl Traveler<30days: No Traveled to known affect area: No History of Present Illness HPI 72-year-old white male presents emergency department from the [facility] rehab facility under a Dickson act. According to the Dickson act the patient had medications that he had received from an outside facility. He refused to give them to the staff. They were concerned that the patient could potentially overdose. The patient states that he has no intention of overdosing or hurting himself. He states that he wanted to take his medications that he was prescribed by Dr. Colin for his urinary tract infection. He states that he is on 2 antibiotics. He was concerned that the nursing facility would somehow change his prescription or not given him his medicine though he is supposed to. He states that he has been concerned that they been adjusting his medications without his input. He also states that he feels that this is a means of them discharging him from their facility. He has been a long-term resident now for the past 2 years. Patient denies any suicidal homicidal ideation. No toxic ingestions. He does complain of urinary frequency, dysuria and urgency. Patient has a history of COPD, hypertension, chronic renal insufficiency, CHF, UTI in BPH. PFSH Past Medical History Narrative Medical Angina, hypertension, diabetes, dementia, CHF, coronary artery disease, chronic renal failure, BPH, chronic electrolyte abnormalities Hx Anticoagulant Therapy: Yes Arthritis: Yes Asthma: Yes Autoimmune Disease: No Heart Rhythm Problems: No Cancer: No Cardiovascular Problems: Yes (Heart attack) High Cholesterol: Yes Chest Pain: Yes Congestive Heart Failure: Yes COPD: Yes Cerebrovascular Accident: Yes Coronary Artery Disease: Yes Diabetes: Yes Endocrine: No GERD: No Genitourinary: Yes Hiatal Hernia: No Immune Disorder: No Kidney Stones: Yes Musculoskeletal: Yes (left foot crushed 20 yrs ago) Neurologic: Yes (CVA) Psychiatric: No Reproductive: No Respiratory: Yes Migraines: No Renal Failure: No Seizures: No Sleep Apnea: Yes Thyroid Disease: No Ulcer: No Tetanus Vaccination: Unknown Past Surgical History Abdominal Surgery: No AICD: No Arteriovenous Shunt: No Cardiac Surgery: Yes (bipass 5 vessell 15 yrs ago) Coronary Artery Bypass Graft: Yes (MULTIPLE STENT PLACEMENT) Ear Surgery: No Endocrine Surgery: No Eye Surgery: No Genitourinary Surgery: Yes (turp 2 weeks ago) Insulin Pump: No Joint Replacement: No Oral Surgery: Yes (tongue top cut of) Pacemaker: No Thoracic Surgery: No Other Surgery: Yes Social History Alcohol Use: No Tobacco Use: No Substance Use: No Allergies-Medications (Allergen,Severity, Reaction): Coded Allergies: ciprofloxacin (Unverified Allergy, Severe, 07/02/17) diatrizoate meglumine (Unverified Allergy, Severe, 07/02/17) gadobenic acid (Unverified Allergy, Severe, 07/02/17) gadodiamide (Unverified Allergy, Severe, 07/02/17) gadoteridol (Unverified Allergy, Severe, 07/02/17) iodixanol (Unverified Allergy, Severe, 07/02/17) iohexol (Unverified Allergy, Severe, 07/02/17) levofloxacin (Unverified Allergy, Severe, 07/02/17) Reported Meds & Prescriptions Reported Meds & Active Scripts Active Lyrica (Pregabalin) 25 Mg Cap 25 Mg PO BID [Pill Splitter] 1 EA Misc 1 Ea OTHER UNSCH PRN Lopressor (Metoprolol Tartrate) 100 Mg Tab 100 Mg PO BID Hold if SBP <100 or HR < 60 Eliquis (Apixaban) 5 Mg Tab 2.5 Mg PO BID Reported Omeprazole 20 Mg Tab 20 Mg PO BID Ferrous Sulfate 325 Mg (65 Mg Iron) Tablet 325 Mg PO BIDPC Stress B/Zinc (B-Complex W/ C & E + Zn) 1 Tab 1 Tab PO DAILY Docusate Sodium 100 Mg Tab 100 Mg PO BID Tamsulosin (Tamsulosin HCl) 0.4 Mg Cap 0.4 Mg PO HS Spiriva Handihaler (Tiotropium Inh) 18 Mcg Cap 18 Mcg INH DAILY 1 capsule = 18 mcg Pioglitazone (Pioglitazone HCl) 45 Mg Tab 45 Mg PO DAILY Magnesium Oxide 400 Mg Tab 400 Mg PO DAILY Levothyroxine (Levothyroxine Sodium) 200 Mcg Tab 200 Mcg PO DAILY Lantus Solostar Pen Inj (Insulin Glargine) 300 Unit/3 Ml Pen 12 Units SQ HS NEB Isosorbide Mononitrate ER (Isosorbide Mononitrate) 60 Mg Tab 60 Mg PO DAILY Calcium Carbonate (Antacid) 500 Mg Chew 500 Mg CHEW DAILY PRN Atorvastatin (Atorvastatin Calcium) 40 Mg Tab 40 Mg PO HS Calcitriol 0.25 Mcg Cap 0.25 Mcg PO DAILY Review of Systems General / Constitutional: No: Fever Eyes: No: Visual changes HENT: No: Headaches Cardiovascular: No: Chest Pain or Discomfort Respiratory: Positive: Cough, Shortness of Breath (Chronic) Gastrointestinal: No: Nausea, Vomiting, Abdominal Pain Genitourinary: Positive: Frequency, Dysuria, No: Hematuria Musculoskeletal: Positive: Edema (Chronic pedal edema), No: Pain Skin: No Rash Neurologic: No: Weakness Psychiatric: No: Depression Endocrine: No: Polydipsia Hematologic/Lymphatic: No: Easy Bruising Physical Exam Narrative GENERAL: Well-nourished, well-developed patient. SKIN: Warm and dry. Chronic healing abrasions to the lower legs. 1-2+ HEAD: Normocephalic and atraumatic. EYES: No scleral icterus. No injection or drainage. ENT: No nasal drainage noted. Mucous membranes pink. Airway patent. NECK: Supple, trachea midline. Moves head freely without obvious discomfort. CARDIOVASCULAR: Regular rate and rhythm without murmurs, gallops, or rubs. RESPIRATORY: Breath sounds somewhat decreased but equal bilaterally. No accessory muscle use. GASTROINTESTINAL: Abdomen soft, non-tender, nondistended. EXTREMITIES: No cyanosis chronic pedal edema. BACK: Nontender without obvious deformity. No CVA tenderness. NEURO: Patient is alert and oriented. no sensorimotor deficits. Nonfocal. Normal speech. PSYCH: No delusions. No auditory or visual hallucinations. Data Data Last Documented VS Vital Signs Date Time Temp Pulse Resp B/P (MAP) Pulse Ox O2 Delivery O2 Flow Rate FiO2 03/30/18 20:30 98.3 79 18 170/74 (106) 98 Orders Orders Complete Blood Count With Diff (03/30/18 20:29) Comprehensive Metabolic Panel (03/30/18 20:29) Psych Screen (03/30/18 20:29) Diet Regular Basic (03/31/18 Breakfast) Drug Screen, Random Urine (03/30/18 20:29) Alcohol (Ethanol) (03/30/18 20:29) Salicylates (Aspirin) (03/30/18 20:29) Tylenol (Acetaminophen) (03/30/18 20:29) Urinalysis - C+S If Indicated (03/30/18 21:27) Urine Culture (03/30/18 22:47) Ceftriaxone Inj (Rocephin Inj) (03/31/18 00:15) Labs Laboratory Tests Test 03/30/18 22:47 03/30/18 23:00 Urine Color YELLOW Urine Turbidity HAZY Urine pH 5.5 Urine Specific Braggs 1.017 Urine Protein TRACE mg/dL Urine Glucose (UA) 1000 mg/dL Urine Ketones NEG mg/dL Urine Occult Blood NEG Urine Nitrite NEG Urine Bilirubin NEG Urine Urobilinogen LESS THAN 2.0 MG/DL Urine Leukocyte Esterase LARGE Urine WBC /hpf Urine WBC Clumps OCC Urine Squamous Epithelial Cells <1 /hpf Urine Bacteria RARE /hpf Microscopic Urinalysis Comment CULTURE INDICATED Urine Opiates Screen NEG Urine Barbiturates Screen NEG Urine Amphetamines Screen NEG Urine Benzodiazepines Screen NEG Urine Cocaine Screen NEG Urine Cannabinoids Screen NEG White Blood Count 8.3 TH/MM3 Red Blood Count 3.74 MIL/MM3 Hemoglobin 11.7 GM/DL Hematocrit 34.4 % Mean Corpuscular Volume 91.8 FL Mean Corpuscular Hemoglobin 31.4 PG Mean Corpuscular Hemoglobin Concent 34.2 % Red Cell Distribution Width 14.9 % Platelet Count 267 TH/MM3 Mean Platelet Volume 8.1 FL Neutrophils (%) (Auto) 74.4 % Lymphocytes (%) (Auto) 9.7 % Monocytes (%) (Auto) 15.5 % Eosinophils (%) (Auto) 0.3 % Basophils (%) (Auto) 0.1 % Neutrophils # (Auto) 6.1 TH/MM3 Lymphocytes # (Auto) 0.8 TH/MM3 Monocytes # (Auto) 1.3 TH/MM3 Eosinophils # (Auto) 0.0 TH/MM3 Basophils # (Auto) 0.0 TH/MM3 CBC Comment AUTO DIFF Differential Total Cells Counted 100 Neutrophils % (Manual) 74 % Band Neutrophils % 3 % Lymphocytes % 10 % Monocytes % 11 % Neutrophils # (Manual) 6.6 TH/MM3 Metamyelocytes 2 % Differential Comment FINAL DIFF MANUAL Toxic Granulation 3+ Platelet Estimate NORMAL Platelet Morphology Comment NORMAL Ovalocytes 1+ Blood Urea Nitrogen 81 MG/DL Creatinine 3.52 MG/DL Random Glucose 220 MG/DL Total Protein 6.2 GM/DL Albumin 3.3 GM/DL Calcium Level 9.1 MG/DL Alkaline Phosphatase 78 U/L Aspartate Amino Transf (AST/SGOT) 20 U/L Alanine Aminotransferase (ALT/SGPT) 61 U/L Total Bilirubin 0.4 MG/DL Sodium Level 135 MEQ/L Potassium Level 3.5 MEQ/L Chloride Level 95 MEQ/L Carbon Dioxide Level 30.2 MEQ/L Anion Gap 10 MEQ/L Estimat Glomerular Filtration Rate 17 ML/MIN Salicylates Level LESS THAN 1.7 MG/DL Acetaminophen Level LESS THAN 2.0 MCG/ML Ethyl Alcohol Level LESS THAN 3 MG/DL MDM Medical Decision Making Medical Screen Exam Complete: Yes Emergency Medical Condition: Yes Medical Record Reviewed: Yes Interpretation(s) CBC & BMP Diagram 03/30/18 23:00 Total Protein 6.2 L, Albumin 3.3 L, Calcium Level 9.1, Alkaline Phosphatase 78, Aspartate Amino Transf (AST/SGOT) 20, Alanine Aminotransferase (ALT/SGPT) 61, Total Bilirubin 0.4 Laboratory Tests Test 03/30/18 22:47 03/30/18 23:00 Urine Color YELLOW Urine Turbidity HAZY Urine pH 5.5 Urine Specific Braggs 1.017 Urine Protein TRACE mg/dL Urine Glucose (UA) 1000 mg/dL Urine Ketones NEG mg/dL Urine Occult Blood NEG Urine Nitrite NEG Urine Bilirubin NEG Urine Urobilinogen LESS THAN 2.0 MG/DL Urine Leukocyte Esterase LARGE Urine WBC /hpf Urine WBC Clumps OCC Urine Squamous Epithelial Cells <1 /hpf Urine Bacteria RARE /hpf Microscopic Urinalysis Comment CULTURE INDICATED Urine Opiates Screen NEG Urine Barbiturates Screen NEG Urine Amphetamines Screen NEG Urine Benzodiazepines Screen NEG Urine Cocaine Screen NEG Urine Cannabinoids Screen NEG White Blood Count 8.3 TH/MM3 Red Blood Count 3.74 MIL/MM3 Hemoglobin 11.7 GM/DL Hematocrit 34.4 % Mean Corpuscular Volume 91.8 FL Mean Corpuscular Hemoglobin 31.4 PG Mean Corpuscular Hemoglobin Concent 34.2 % Red Cell Distribution Width 14.9 % Platelet Count 267 TH/MM3 Mean Platelet Volume 8.1 FL Neutrophils (%) (Auto) 74.4 % Lymphocytes (%) (Auto) 9.7 % Monocytes (%) (Auto) 15.5 % Eosinophils (%) (Auto) 0.3 % Basophils (%) (Auto) 0.1 % Neutrophils # (Auto) 6.1 TH/MM3 Lymphocytes # (Auto) 0.8 TH/MM3 Monocytes # (Auto) 1.3 TH/MM3 Eosinophils # (Auto) 0.0 TH/MM3 Basophils # (Auto) 0.0 TH/MM3 CBC Comment AUTO DIFF Differential Total Cells Counted 100 Neutrophils % (Manual) 74 % Band Neutrophils % 3 % Lymphocytes % 10 % Monocytes % 11 % Neutrophils # (Manual) 6.6 TH/MM3 Metamyelocytes 2 % Differential Comment FINAL DIFF MANUAL Toxic Granulation 3+ Platelet Estimate NORMAL Platelet Morphology Comment NORMAL Ovalocytes 1+ Blood Urea Nitrogen 81 MG/DL Creatinine 3.52 MG/DL Random Glucose 220 MG/DL Total Protein 6.2 GM/DL Albumin 3.3 GM/DL Calcium Level 9.1 MG/DL Alkaline Phosphatase 78 U/L Aspartate Amino Transf (AST/SGOT) 20 U/L Alanine Aminotransferase (ALT/SGPT) 61 U/L Total Bilirubin 0.4 MG/DL Sodium Level 135 MEQ/L Potassium Level 3.5 MEQ/L Chloride Level 95 MEQ/L Carbon Dioxide Level 30.2 MEQ/L Anion Gap 10 MEQ/L Estimat Glomerular Filtration Rate 17 ML/MIN Salicylates Level LESS THAN 1.7 MG/DL Acetaminophen Level LESS THAN 2.0 MCG/ML Ethyl Alcohol Level LESS THAN 3 MG/DL Differential Diagnosis MDM: High Differential diagnoses: Schizophrenia, schizoaffective disorder, bipolar, anxiety, depression, adjustment reaction, mood disorder NOS, ODD, depressive disorder NOS, dementia, dementia with agitation, psychosis NOS, substance induced mood disorder, DMDD, Asperger syndrome, infection,electrolyte abnormality, malingering. Narrative Course Mental health screening discussed with the patient. Psychiatric screen ordered. Patient is given 1 g of Rocephin IM. Patient has a urinary tract infection along with chronic kidney disease. He has some mild increased BUN and creatinine from his last visit but this is not significantly changed from prior admissions. The patient is currently under the care of a physician as well as his urologist. He states that he plans on having a TURP done this week. We will send his urine off for culture. At this point the patient is considered medically cleared and will be evaluated by the psychiatrist. This is medical clearance for psychiatric admission, UTI, chronic kidney disease Diagnosis Primary Impression: Medical clearance for psychiatric admission Additional Impressions: UTI Chronic kidney disease Condition: Stable Uri Hollis Mar 30, 2018 21:23
[2018-03-30 23:28] LABS: AUTOMATED NEUTROPHIL # 6.1 TH/MM3 (1.8-7.7); BASOPHIL % 0.1 % (0.0-2.0); EOSINOPHIL % 0.3 % (0.0-4.0); HEMATOCRIT 34.4 % (39.0-51.0); HEMOGLOBIN 11.7 GM/DL (13.0-17.0); LYMPH % 9.7 % (9.0-44.0); LYMPHOCYTE # 0.8 TH/MM3 (1.0-4.8); MEAN CELL VOLUME 91.8 FL (80.0-100.0); MEAN CORPUSCULAR HEMOGLOBIN 31.4 PG (27.0-34.0); MEAN CORPUSCULAR HGB CONC 34.2 % (32.0-36.0); MEAN PLATELET VOLUME 8.1 FL (7.0-11.0); MONO % 15.5 % (0.0-8.0); MONOCYTE # 1.3 TH/MM3 (0-0.9); NEUT % 74.4 % (16.0-70.0); PLATELET COUNT 267 TH/MM3 (150-450); RED BLOOD COUNT 3.74 MIL/MM3 (4.50-5.90); RED CELL DISTRIBUTION WIDTH 14.9 % (11.6-17.2); WHITE BLOOD COUNT 8.3 TH/MM3 (4.0-11.0)
[2018-03-30 23:44] LABS: ALBUMIN 3.3 GM/DL (3.4-5.0); AST (GOT) 20 U/L (15-37); BICARBONATE 30.2 MEQ/L (21.0-32.0); BLOOD UREA NITROGEN 81 MG/DL (7-18); CALCIUM 9.1 MG/DL (8.5-10.1); CHLORIDE 95 MEQ/L (98-107); CREATININE 3.52 MG/DL (0.60-1.30); GLOMERULAR FILTRATION RATE 17 ML/MIN (>89); GLUCOSE,RANDOM 220 MG/DL (74-106); SODIUM (NA) 135 MEQ/L (136-145)
[2018-03-30 23:45] LABS: ACETAMINOPHEN LESS THAN 2.0 MCG/ML (10.0-30.0); ALT (GPT) 61 U/L (12-78)
[2018-03-30 23:46] LABS: BACTERIA, URINE RARE /hpf; BILIRUBIN, URINE NEG (NEG); BLOOD, URINE NEG (NEG); GLUCOSE,URINE 1000 mg/dL (NEG); KETONE, URINE NEG (NEG); NITRITE,URINE NEG (NEG); PH, URINE 5.5 (5.0-8.5); SQUAMOUS EPITHELIAL CELL URINE <1 /hpf (0-5); URINE COLOR YELLOW (YELLW/STRAW); URINE LEUKOCYTE ESTERASE LARGE (NEG); WHITE BLOOD CELL CLUMPS OCC
[2018-03-30 23:47] LABS: ALKALINE PHOSPHATASE 78 U/L (45-117); TOTAL BILIRUBIN ADULT 0.4 MG/DL (0.2-1.0); TOTAL PROTEIN 6.2 GM/DL (6.4-8.2)
[2018-03-30 23:56] LABS: BANDS 3 % (0-6); LYMPHOCYTES 10 % (9-44); METAMYELOCYTES 2 % (0-1); MONOCYTES 11 % (0-8); NEUTROPHIL # MANUAL DIFF 6.6 TH/MM3 (1.8-7.7); POLYS (SEG NEUTROPHILS) 74 % (16-70); TOXIC GRANULATION 3+ (NORMAL)
[2018-03-30 23:57] LABS: OVALOCYTES 1+ (NORMAL)
[2018-03-31 06:15] VITALS: BP 171/75; PULSE 66; RESP 18; TEMP 97.9; O2SAT 99
[2018-03-31] MEDS ORDERED: DILT60TA PO (06:55)
[2018-03-31] MEDS ORDERED: TYLE325T PO (06:55)
[2018-03-31] MEDS ORDERED: CALC0.5C PO (06:55)
[2018-03-31] MEDS ORDERED: KETOC2%T TOPICAL (06:55)
[2018-03-31] MEDS ORDERED: IPRASOL INH (06:55)
[2018-03-31] MEDS ORDERED: LYRI75CA PO (06:55)
[2018-03-31] MEDS ORDERED: PRED20 PO (06:55)
[2018-03-31] MEDS ORDERED: DESV5TAB PO (06:55)
[2018-03-31] MEDS ORDERED: BUME2TAB PO (06:55)
[2018-03-31] MEDS ORDERED: FLUO5OIL TOPICAL (06:55)
[2018-03-31] MEDS ORDERED: METO25TA3 PO (06:55)
[2018-03-31] MEDS ORDERED: METO10TA4 PO (06:55)
[2018-03-31] MEDS ORDERED: LANTUS2P SQ (06:55)
[2018-03-31] MEDS ORDERED: SPIR25TA PO (07:07)
[2018-03-31] MEDS ORDERED: NOVOLOGP2 SQ ×2 (07:07)
[2018-03-31] MEDS ORDERED: MULTTAB67 PO (07:07)
[2018-03-31] MEDS ORDERED: SPIRCAP INH (07:07)
[2018-03-31] MEDS ORDERED: BRIL90TA PO (07:07)
[2018-03-31 13:14] VITALS: BP 148/65; PULSE 71; RESP 18; O2SAT 100
[2018-03-31 23:23] VITALS: BP 166/73; PULSE 83; RESP 16; O2SAT 97
[2018-04-01] VITALS (15 sets, daily range): BP systolic 108–175; BP diastolic 62–99; PULSE 70–140; RESP 16–28; TEMP 97.6–98.3; O2SAT 97–100
--- NOTE | 2018-04-01 07:31 | PD ---
History of Present Illness Chief Complaint: Psychiatric Symptoms Time Seen by Provider: 07:00 Travel History International Travel<30 Days: No Contact w/Intl Traveler<30days: No Known affected area: No Legal Status Legal Status: Involuntary Dickson Act Comment: CERTIFICATE OF PROFESSIONAL INITIATING INVOLUNTARY EXAMINATION History of Present Illness: Patient 72y/o male who is residing at [facility]. He was placed under a Dickson Act by Emiliana Liao from [facility]. The Dickson Act states, " patient is self medicating and found in patient's room refusing to give medication to staff. Self harmful and life threatening if medication taken is unauthorized." Patient states ," I have a terrible UTI and they were not giving me the medication I needed, so I had my prescription filled at [facility] and I was taking my antibiotics to get rid of my UTI." Chart reviewed and discussed with ITZ Wang. Patient alert and oriented in hospital gown in D [place]. He is well kept. Fund of knowledge good. Remote and recent memory intact. Motor and gait good. Euthymic and states, "I work on feeling good everyday. " Denies suicidal or homicidal ideations. No abnormal thoughts. He is articulate and able to make his needs known. Patient was discharged to a SNF after a long hospitalization due to a heart condition. He has been in several nursing facilities. He states that he tries to be independent which has been a problem at these facilities. He states he wish that he could live independently , but with his heart condition he needs help. He is requesting assistance to see if their is another nursing facility so that he could transfer. He understands that he cannot take his own medications at an [facility] and that he needs to engage the nursing staff and talk to the facility about his concerns. Patient is at low risk for self harm or harming others. Dickson Act lifted. Recommend that Case Management assist patient with placement needs. DX: Anxiety PFSH Past Medical History Narrative Medical No past mental health history. Patient was an alcoholic and did receive treatment for his alcohol abuse. He has been sober since 1993. Hx Anticoagulant Therapy: Yes Arthritis: Yes Asthma: Yes Autoimmune Disease: No Heart Rhythm Problems: No Cancer: No Cardiovascular Problems: Yes (Heart attack) High Cholesterol: Yes Chest Pain: Yes Congestive Heart Failure: Yes COPD: Yes Cerebrovascular Accident: Yes Coronary Artery Disease: Yes Diabetes: Yes Patient Takes Glucophage: No Diminished Hearing: Yes (kiet hard of hearing ) Endocrine: No GERD: No Genitourinary: Yes Hiatal Hernia: No Hypertension: Yes Immune Disorder: No Kidney Stones: Yes Musculoskeletal: Yes (left foot crushed 20 yrs ago) Neurologic: Yes (CVA) Psychiatric: No Reproductive: No Respiratory: Yes Migraines: No Renal Failure: No Seizures: No Sleep Apnea: Yes Thyroid Disease: No Ulcer: No Tetanus Vaccination: Unknown Past Surgical History Abdominal Surgery: No AICD: No Arteriovenous Shunt: No Cardiac Surgery: Yes (bipass 5 vessell 15 yrs ago) Coronary Artery Bypass Graft: Yes (MULTIPLE STENT PLACEMENT) Ear Surgery: No Endocrine Surgery: No Eye Surgery: No Genitourinary Surgery: Yes (turp 2 weeks ago) Insulin Pump: No Joint Replacement: No Neurologic Surgery: Yes (carpel david) Oral Surgery: Yes (tongue top cut of) Pacemaker: No Thoracic Surgery: No Other Surgery: Yes Psychiatric History Psychiatric History Hx Psychiatric Treatment: NONE History of Inpatient Treatment: No Social History Hx Alcohol Use: No Hx Tobacco Use: No Hx Substance Use: No Hx of Substance Use Treatment: No Allergies-Medications (Allergen,Severity, Reaction): Coded Allergies: ciprofloxacin (Unverified Allergy, Severe, 03/31/18) diatrizoate meglumine (Unverified Allergy, Severe, 03/31/18) gadobenic acid (Unverified Allergy, Severe, 03/31/18) gadodiamide (Unverified Allergy, Severe, 03/31/18) gadoteridol (Unverified Allergy, Severe, 03/31/18) iodixanol (Unverified Allergy, Severe, 03/31/18) iohexol (Unverified Allergy, Severe, 03/31/18) levofloxacin (Unverified Allergy, Severe, 03/31/18) Reported Meds & Prescriptions Reported Meds & Active Scripts Active Reported Brilinta (Ticagrelor) 90 Mg Tab 90 Mg PO BID Multiple Vitamin 1 Tab 1 Tab PO DAILY Spironolactone 25 Mg Tab 25 Mg PO DAILY Spiriva Handihaler (Tiotropium Inh) 18 Mcg Cap 18 Mcg INH DAILY 1 capsule = 18 mcg Novolog Inj (Insulin Aspart) 1,000 Unit/10 Ml Vial 10 Units SQ ACHS Max dose at bedtime ( ) units; sugars less than 70,(0) units; sugars 150-199,(2) units; sugars 200-249,(4) units; sugars 250-299,(7) units; sugars 300-349,(10) units; sugars greater than 349,(12)units Novolog Inj (Insulin Aspart) 1,000 Unit/10 Ml Vial 0 SQ DIRECTED Sliding Scale as directed. Prednisone 20 Mg Tab 20 Mg PO DAILY Lyrica (Pregabalin) 75 Mg Cap 75 Mg PO BID Metoprolol Tartrate 25 Mg Tab 25 Mg PO BID Metolazone 10 Mg Tab 10 Mg PO DAILY Nizoral Topical Shampoo (Ketoconazole) 2% Sham 1 Applic TOPICAL HS Apply to scalp Lantus Inj (Insulin Glargine) 1,000 Unit/10 Ml Vial 17 Units SQ HS Fluocinolone Body Topical (Fluocinolone Topical) 0.01 % Oil 1 Applic TOPICAL BID Duoneb (Ipratropium-Albuterol Neb) 0.5-2.5 Mg/3 Ml Neb 1 Nebule INH Q4HR NEB PRN Diltiazem (Diltiazem HCl) 60 Mg Tab 60 Mg PO QID Khedezla 24 HR (Desvenlafaxine Succinate) 50 Mg Tab 100 Mg PO DAILY Calcitriol 0.5 Mcg Cap 0.5 Mcg PO DAILY Bumetanide 2 Mg Tab 4 Mg PO DAILY Tylenol (Acetaminophen) 325 Mg Tab 650 Mg PO Q6H PRN Omeprazole 20 Mg Tab 20 Mg PO BID Stress B/Zinc (B-Complex W/ C & E + Zn) 1 Tab 1 Tab PO DAILY Tamsulosin (Tamsulosin HCl) 0.4 Mg Cap 0.4 Mg PO HS Levothyroxine (Levothyroxine Sodium) 200 Mcg Tab 200 Mcg PO DAILY Isosorbide Mononitrate ER (Isosorbide Mononitrate) 60 Mg Tab 60 Mg PO DAILY Calcium Carbonate (Antacid) 500 Mg Chew 500 Mg CHEW DAILY PRN Atorvastatin (Atorvastatin Calcium) 40 Mg Tab 40 Mg PO HS Mental Status Examination Appearance: Appropriate Consciousness: Alert Orientation: x4 Motor Activity: Normal gait Speech: Unremarkable Language: Adequate Fund of Knowledge: Adequate Attention and Concentration: Adequate Memory: Unremarkable Mood: Appropriate Affect: Appropriate, Euthymic Thought Process & Associations: Intact Thought Content: Appropriate Hallucination Type: None Delusion Type: None Suicidal Ideation: No Suicidal Plan: No Suicidal Intention: No Homicidal Ideation: No Homicidal Plan: No Homicidal Intention: No Insight: Adequate Judgment: Adequate [facility] Medical Decision Making Assessment/Plan Patient was placed under a Dickson Act for taking antibiotics for his urinary tract infection. Patient is living in [facility] and was told that he cannot take his own antibiotics. He currently understands that when in a facility he need to take his medications from the nursing staff. Patient is very independent and is struggling with the rules of a facility. He has been in several facilities since his discharge from the hospital. He denies SI/HI. Patient is at low risk for self harm or harm to others.Dickson Act lifted. Recommend that patient speak with Case Management regarding his placement. Results Vital Signs Date Time Temp Pulse Resp B/P (MAP) Pulse Ox O2 Delivery O2 Flow Rate FiO2 04/01/18 06:04 83 16 175/84 (114) 97 Room Air 03/31/18 23:23 83 16 166/73 (104) 97 Room Air 03/31/18 13:14 71 18 148/65 (92) 100 Room Air Date/Time Source Procedure Growth Status 03/30/18 22:47 Urine Random Urine Urine Culture - Preliminary NO GROWTH IN 24 HOURS. Resulted Diagnosis Primary Impression: Anxiety Additional Impression: UTI (urinary tract infection) Disposition: 01 DISCHARGE HOME Condition: Stable Problem Qualifiers Amanda Sahu Apr 01, 2018 07:31
--- NOTE | 2018-04-01 08:19 | PD ---
Physical Exam Time Seen by Provider: 08:19 Narrative Please refer to previous providers documentation for details surrounding the patient's current visit. Data Data Last Documented VS Vital Signs Date Time Temp Pulse Resp B/P (MAP) Pulse Ox O2 Delivery O2 Flow Rate FiO2 04/01/18 06:04 83 16 175/84 (114) 97 Room Air 03/31/18 06:15 97.9 Orders Orders Complete Blood Count With Diff (03/30/18 20:29) Comprehensive Metabolic Panel (03/30/18 20:29) Psych Screen (03/30/18 20:29) Diet Regular Basic (03/31/18 Breakfast) Drug Screen, Random Urine (03/30/18 20:29) Alcohol (Ethanol) (03/30/18 20:29) Salicylates (Aspirin) (03/30/18 20:29) Tylenol (Acetaminophen) (03/30/18 20:29) Urinalysis - C+S If Indicated (03/30/18 21:27) Urine Culture (03/30/18 22:47) Ceftriaxone Inj (Rocephin Inj) (03/31/18 00:15) Electrocardiogram (04/01/18 08:37) Basic Metabolic Panel (Bmp) (04/01/18 08:37) Ckmb (Isoenzyme) Profile (04/01/18 08:37) Complete Blood Count With Diff (04/01/18 08:37) Magnesium (Mg) (04/01/18 08:37) Prothrombin Time / Inr (Pt) (04/01/18 08:37) Act Partial Throm Time (Ptt) (04/01/18 08:37) Troponin I (04/01/18 08:37) Ecg Monitoring (04/01/18 08:37) Bilateral Bp Monitoring (04/01/18 08:37) Iv Access Insert/Monitor (04/01/18 08:37) Oximetry (04/01/18 08:37) Oxygen Administration (04/01/18 08:37) Aspirin Chew (Aspirin Chew) (04/01/18 08:45) Sodium Chloride 0.9% Flush (Ns Flush) (04/01/18 08:45) Nitroglycerin 0.4 Mg Q5m X3 (04/01/18 08:45) Chest, Pa & Lat (04/01/18 08:37) Labs Laboratory Tests Test 03/30/18 22:47 03/30/18 23:00 Urine Color YELLOW Urine Turbidity HAZY Urine pH 5.5 Urine Specific [place] 1.017 Urine Protein TRACE mg/dL Urine Glucose (UA) 1000 mg/dL Urine Ketones NEG mg/dL Urine Occult Blood NEG Urine Nitrite NEG Urine Bilirubin NEG Urine Urobilinogen LESS THAN 2.0 MG/DL Urine Leukocyte Esterase LARGE Urine WBC /hpf Urine WBC Clumps OCC Urine Squamous Epithelial Cells <1 /hpf Urine Bacteria RARE /hpf Microscopic Urinalysis Comment CULTURE INDICATED Urine Opiates Screen NEG Urine Barbiturates Screen NEG Urine Amphetamines Screen NEG Urine Benzodiazepines Screen NEG Urine Cocaine Screen NEG Urine Cannabinoids Screen NEG White Blood Count 8.3 TH/MM3 Red Blood Count 3.74 MIL/MM3 Hemoglobin 11.7 GM/DL Hematocrit 34.4 % Mean Corpuscular Volume 91.8 FL Mean Corpuscular Hemoglobin 31.4 PG Mean Corpuscular Hemoglobin Concent 34.2 % Red Cell Distribution Width 14.9 % Platelet Count 267 TH/MM3 Mean Platelet Volume 8.1 FL Neutrophils (%) (Auto) 74.4 % Lymphocytes (%) (Auto) 9.7 % Monocytes (%) (Auto) 15.5 % Eosinophils (%) (Auto) 0.3 % Basophils (%) (Auto) 0.1 % Neutrophils # (Auto) 6.1 TH/MM3 Lymphocytes # (Auto) 0.8 TH/MM3 Monocytes # (Auto) 1.3 TH/MM3 Eosinophils # (Auto) 0.0 TH/MM3 Basophils # (Auto) 0.0 TH/MM3 CBC Comment AUTO DIFF Differential Total Cells Counted 100 Neutrophils % (Manual) 74 % Band Neutrophils % 3 % Lymphocytes % 10 % Monocytes % 11 % Neutrophils # (Manual) 6.6 TH/MM3 Metamyelocytes 2 % Differential Comment FINAL DIFF MANUAL Toxic Granulation 3+ Platelet Estimate NORMAL Platelet Morphology Comment NORMAL Ovalocytes 1+ Blood Urea Nitrogen 81 MG/DL Creatinine 3.52 MG/DL Random Glucose 220 MG/DL Total Protein 6.2 GM/DL Albumin 3.3 GM/DL Calcium Level 9.1 MG/DL Alkaline Phosphatase 78 U/L Aspartate Amino Transf (AST/SGOT) 20 U/L Alanine Aminotransferase (ALT/SGPT) 61 U/L Total Bilirubin 0.4 MG/DL Sodium Level 135 MEQ/L Potassium Level 3.5 MEQ/L Chloride Level 95 MEQ/L Carbon Dioxide Level 30.2 MEQ/L Anion Gap 10 MEQ/L Estimat Glomerular Filtration Rate 17 ML/MIN Salicylates Level LESS THAN 1.7 MG/DL Acetaminophen Level LESS THAN 2.0 MCG/ML Ethyl Alcohol Level LESS THAN 3 MG/DL [facility] Medical Record Reviewed: Yes Supervised Visit with TRACEY: No Narrative Course 72-year-old male presents emergency department under Randolph. He has been medically cleared, evaluated by psychiatry, and Dickson act has been lifted. Patient will be discharged home. He is currently on oral antibiotics for UTI. 0835 prior to discharge, patient was backing back from the restroom when he developed acute onset left-sided chest pain. He began to feel weak. Had associated headache. He is nauseous. He is also diaphoretic. Patient had a nitroglycerin in his pocket and he took one on his own he tells me. Patient is escorted back to the room by nursing staff. Cardiac workup is initiated. Patient will be transferred to a medical pod. Disposition: 01 DISCHARGE HOME Condition: Stable Adriana Lewis Apr 01, 2018 08:19
[2018-04-01] MEDS ORDERED: ASPIRIN 81 MG CHEW TAB PO ONE (08:45)
[2018-04-01] MEDS: NITROGLYCERIN 0.4 MG SL 25 TABS/BTL SL SCH ×2 (08:45→08:50)
[2018-04-01] MEDS ORDERED: SODIUM CHLORIDE 0.9% FLUSH 10 ML FLUSH IVF PRN (08:45)
[2018-04-01 08:58] LABS: BASOPHIL # 0.1 TH/MM3 (0-0.2); BASOPHIL % 0.5 % (0.0-2.0); EOSINOPHIL # 0.3 TH/MM3 (0-0.4); EOSINOPHIL % 2.3 % (0.0-4.0); HEMATOCRIT 37.2 % (39.0-51.0); HEMOGLOBIN 13.1 GM/DL (13.0-17.0); LYMPH % 24.1 % (9.0-44.0); LYMPHOCYTE # 3.2 TH/MM3 (1.0-4.8); MEAN CELL VOLUME 93.5 FL (80.0-100.0); MEAN CORPUSCULAR HEMOGLOBIN 32.8 PG (27.0-34.0); MEAN CORPUSCULAR HGB CONC 35.1 % (32.0-36.0); MEAN PLATELET VOLUME 8.1 FL (7.0-11.0); MONO % 12.6 % (0.0-8.0); MONOCYTE # 1.7 TH/MM3 (0-0.9); NEUT % 60.5 % (16.0-70.0); PLATELET COUNT 312 TH/MM3 (150-450); RED BLOOD COUNT 3.99 MIL/MM3 (4.50-5.90); RED CELL DISTRIBUTION WIDTH 14.7 % (11.6-17.2); WHITE BLOOD COUNT 13.1 TH/MM3 (4.0-11.0)
--- NOTE | 2018-04-01 09:00 | PD ---
Physical Exam Narrative GENERAL: Elderly male SKIN: Warm and dry. HEAD: Atraumatic. Normocephalic. EYES: Pupils equal and round. No scleral icterus. No injection or drainage. ENT: No nasal bleeding or discharge. Mucous membranes pink and moist. NECK: Trachea midline. No JVD. CARDIOVASCULAR: Tachycardic rate and irregularly irregular rhythm RESPIRATORY: No accessory muscle use. Clear to auscultation. Breath sounds equal bilaterally. GASTROINTESTINAL: Abdomen obese, soft, non-tender, nondistended. MUSCULOSKELETAL: Extremities without clubbing, cyanosis, or 2+ bilateral lower extremity edema. No obvious deformities. NEUROLOGICAL: Awake and alert. No obvious cranial nerve deficits. Motor grossly within normal limits. Five out of 5 muscle strength in the arms and legs. Normal speech. PSYCHIATRIC: Appropriate mood and affect; insight and judgment normal. Data Data Last Documented VS Orders Orders Complete Blood Count With Diff (03/30/18 20:29) Comprehensive Metabolic Panel (03/30/18 20:29) Psych Screen (03/30/18 20:29) Diet Regular Basic (03/31/18 Breakfast) Drug Screen, Random Urine (03/30/18 20:29) Alcohol (Ethanol) (03/30/18 20:29) Salicylates (Aspirin) (03/30/18 20:29) Tylenol (Acetaminophen) (03/30/18 20:29) Urinalysis - C+S If Indicated (03/30/18 21:27) Urine Culture (03/30/18 22:47) Ceftriaxone Inj (Rocephin Inj) (03/31/18 00:15) Electrocardiogram (04/01/18 08:37) Basic Metabolic Panel (Bmp) (04/01/18 08:37) Ckmb (Isoenzyme) Profile (04/01/18 08:37) Complete Blood Count With Diff (04/01/18 08:37) Magnesium (Mg) (04/01/18 08:37) Prothrombin Time / Inr (Pt) (04/01/18 08:37) Act Partial Throm Time (Ptt) (04/01/18 08:37) Troponin I (04/01/18 08:37) Ecg Monitoring (04/01/18 08:37) Bilateral Bp Monitoring (04/01/18 08:37) Iv Access Insert/Monitor (04/01/18 08:37) Oximetry (04/01/18 08:37) Oxygen Administration (04/01/18 08:37) Aspirin Chew (Aspirin Chew) (04/01/18 08:45) Sodium Chloride 0.9% Flush (Ns Flush) (04/01/18 08:45) Nitroglycerin Sl (Nitrostat Sl) (04/01/18 08:45) Chest, Single Ap (04/01/18 ) Metoprolol Tartrate Inj (Lopressor Inj) (04/01/18 09:00) Dextrose 5% In [place]ate... W/Amiodarone Inj (04/01/18 10:26) Dextrose 5% In [place]ate... W/Amiodarone Inj (04/01/18 10:41) Admit Order (Ed Use Only) (04/01/18 11:01) Labs Laboratory Tests Test 03/30/18 22:47 03/30/18 23:00 04/01/18 08:40 Urine Color YELLOW Urine Turbidity HAZY Urine pH 5.5 Urine Specific [place] 1.017 Urine Protein TRACE mg/dL Urine Glucose (UA) 1000 mg/dL Urine Ketones NEG mg/dL Urine Occult Blood NEG Urine Nitrite NEG Urine Bilirubin NEG Urine Urobilinogen LESS THAN 2.0 MG/DL Urine Leukocyte Esterase LARGE Urine WBC /hpf Urine WBC Clumps OCC Urine Squamous Epithelial Cells <1 /hpf Urine Bacteria RARE /hpf Microscopic Urinalysis Comment CULTURE INDICATED Urine Opiates Screen NEG Urine Barbiturates Screen NEG Urine Amphetamines Screen NEG Urine Benzodiazepines Screen NEG Urine Cocaine Screen NEG Urine Cannabinoids Screen NEG White Blood Count 8.3 TH/MM3 13.1 TH/MM3 Red Blood Count 3.74 MIL/MM3 3.99 MIL/MM3 Hemoglobin 11.7 GM/DL 13.1 GM/DL Hematocrit 34.4 % 37.2 % Mean Corpuscular Volume 91.8 FL 93.5 FL Mean Corpuscular Hemoglobin 31.4 PG 32.8 PG Mean Corpuscular Hemoglobin Concent 34.2 % 35.1 % Red Cell Distribution Width 14.9 % 14.7 % Platelet Count 267 TH/MM3 312 TH/MM3 Mean Platelet Volume 8.1 FL 8.1 FL Neutrophils (%) (Auto) 74.4 % 60.5 % Lymphocytes (%) (Auto) 9.7 % 24.1 % Monocytes (%) (Auto) 15.5 % 12.6 % Eosinophils (%) (Auto) 0.3 % 2.3 % Basophils (%) (Auto) 0.1 % 0.5 % Neutrophils # (Auto) 6.1 TH/MM3 8.0 TH/MM3 Lymphocytes # (Auto) 0.8 TH/MM3 3.2 TH/MM3 Monocytes # (Auto) 1.3 TH/MM3 1.7 TH/MM3 Eosinophils # (Auto) 0.0 TH/MM3 0.3 TH/MM3 Basophils # (Auto) 0.0 TH/MM3 0.1 TH/MM3 CBC Comment AUTO DIFF AUTO DIFF Differential Total Cells Counted 100 100 Neutrophils % (Manual) 74 % 59 % Band Neutrophils % 3 % Lymphocytes % 10 % 28 % Monocytes % 11 % 8 % Neutrophils # (Manual) 6.6 TH/MM3 8.1 TH/MM3 Metamyelocytes 2 % 3 % Differential Comment FINAL DIFF MANUAL FINAL DIFF MANUAL Toxic Granulation 3+ Platelet Estimate NORMAL NORMAL Platelet Morphology Comment NORMAL NORMAL Ovalocytes 1+ Blood Urea Nitrogen 81 MG/DL 71 MG/DL Creatinine 3.52 MG/DL 3.05 MG/DL Random Glucose 220 MG/DL 243 MG/DL Total Protein 6.2 GM/DL Albumin 3.3 GM/DL Calcium Level 9.1 MG/DL 9.3 MG/DL Alkaline Phosphatase 78 U/L Aspartate Amino Transf (AST/SGOT) 20 U/L Alanine Aminotransferase (ALT/SGPT) 61 U/L Total Bilirubin 0.4 MG/DL Sodium Level 135 MEQ/L 136 MEQ/L Potassium Level 3.5 MEQ/L 3.8 MEQ/L Chloride Level 95 MEQ/L 95 MEQ/L Carbon Dioxide Level 30.2 MEQ/L 29.2 MEQ/L Anion Gap 10 MEQ/L 12 MEQ/L Estimat Glomerular Filtration Rate 17 ML/MIN 20 ML/MIN Salicylates Level LESS THAN 1.7 MG/DL Acetaminophen Level LESS THAN 2.0 MCG/ML Ethyl Alcohol Level LESS THAN 3 MG/DL Eosinophils % 1 % Basophils % 1 % Red Cell Morphology Comment NORMAL Prothrombin Time 10.1 SEC Prothromb Time International Ratio 1.0 RATIO Activated Partial Thromboplast Time 22.4 SEC Magnesium Level 1.9 MG/DL Total Creatine Kinase 51 U/L Troponin I 0.03 NG/ML [facility] Medical Record Reviewed: Yes Supervised Visit with TRACEY: No Narrative Course The patient was an apparent inappropriate Dickson act from the facility, Dickson act was lifted this morning. As the patient was preparing to leave the emergency department he became lightheaded developed chest tightness palpitations and diaphoresis. Patient was assisted back to his room EKG shows atrial fibrillation with RVR at around 160-170 bpm, no evidence of any ST elevation [place] noted. Patient's care was transferred from the NH to ma, at this present time patient was initiated on metoprolol 5 mg IV, aspirin and the patient had already taken his own nitroglycerin. Critical Care Narrative CRITICAL CARE NOTE: With evaluation of the patient, labs, EKG, receipt of radiologic studies, administration of medications, reevaluation the patient and discussion of the patient with the admitting physicians, the total critical care time was [30] minutes. Time to perform other separately billable procedures was not included in the critical care time. Diagnosis Primary Impression: Anxiety Additional Impressions: UTI (urinary tract infection) Qualified Codes: N30.00 - Acute cystitis without hematuria A. fib with RVR Admitting Information Admitting Physician Requests: Observation Scripts Meclizine (Meclizine) 25 Mg Tab 25 MG PO DIRECTED Y for VERTIGO, #60 TAB 0 Refills Prov: Marcella Aden MD 04/03/18 Oswaldo Velazquez MD Apr 01, 2018 09:00
[2018-04-01 09:06] LABS: PROTHROMBIN TIME - PATIENT 10.1 SEC (9.8-11.6)
[2018-04-01] MEDS: METOPROLOL TARTRATE 5 MG/5 ML VIAL IVS SCH ×3 (09:08→10:01)
[2018-04-01 09:13] LABS: BICARBONATE 29.2 MEQ/L (21.0-32.0); CALCIUM 9.3 MG/DL (8.5-10.1); CREATININE 3.05 MG/DL (0.60-1.30); MAGNESIUM 1.9 MG/DL (1.5-2.5)
[2018-04-01 09:17] LABS: TROPONIN I 0.03 NG/ML (0.02-0.05)
--- NOTE | 2018-04-01 09:19 | RADRPT ---
EXAM DATE: 04/01/2018 9:09 AM EDT AGE/SEX: 72 years / Male INDICATIONS: Chest pain. CLINICAL DATA: This is the patient's initial encounter. Patient reports that signs and symptoms have been present for 1 day and indicates a pain score of 4/10. MEDICAL/SURGICAL HISTORY: Hypertension. Chronic obstructive pulmonary disease. Congestive hea rt failure. : Hypercholesterolemia. Cerebrovascular accident. Carpel tunnel. Myocardial infarction. Coronary artery disease. Prostate problems. Arthritis. Liver disease . Cardiac bypass. Coronary yadi ry bypass graft. COMPARISON: [facility], CHEST SINGLE AP, 07/15/2017. . FINDINGS: Median sternotomy wires and cardiomegaly are noted. Osseous structures are intact. Lungs are clear. CONCLUSION: Negative examination. Electronically signed by: Alessandro Ferrera MD 04/01/2018 9:18 AM EDT
[2018-04-01 09:31] LABS: BASOPHILS 1 % (0-2); LYMPHOCYTES 28 % (9-44); METAMYELOCYTES 3 % (0-1); MONOCYTES 8 % (0-8); NEUTROPHIL # MANUAL DIFF 8.1 TH/MM3 (1.8-7.7); POLYS (SEG NEUTROPHILS) 59 % (16-70)
[2018-04-01] MEDS ORDERED: AMIODARONE INJ 150 MG in DEXTROSE 5% IN WATER 100ML INJ 97 ML IV ONE ×2 (10:26)
[2018-04-01] MEDS: AMIODARONE INJ 450 MG in DEXTROSE 5% IN WATE(EXCEL) INJ 241 ML IV SCH ×4 (10:58→18:16)
--- NOTE | 2018-04-01 11:10 | HHI.HP ---
[facility] Troy Crowder DO Admission Diagnosis REFRACTORY AFIB WITH RVR Diagnoses: Chief Complaint: Chest tightness Travel History International Travel<30 Days: No Contact w/Intl Traveler <30 Da: No Traveled to Known Affected Are: No History of Present Illness This is a 72-year-old male with history of CVA, COPD, hypertension, diabetes mellitus, dementia, congestive heart failure, coronary artery disease status post DC, status post CABG and previous coronary stenting, chronic kidney disease who initially presented to emergency department after the patient was Dickson acted at [facility] for refusing to give his antibiotics for UTI to the skilled nursing facility. Patient was given ceftriaxone 1 g IV and urine was sent for culture. Patient seen by psychiatry, Randolph act was lifted and patient was supposed to be discharged today however on the way to the bathroom, patient complained of chest pain. His symptoms started after having a big bowel movement when he started feeling lightheaded, dizzy, chest tightness on the left side of his anterior thoracic area radiating to the neck into the left arm associated with shortness of breath, palpitations, generalized weakness and diaphoresis. EKG was done which showed atrial fibrillation in the 130s to the 170s. Patient was given aspirin, metoprolol 5 mg IV 3 and he was started on amiodarone drip. Of note, the patient's home medications were not started during his ED stay including his Brilinta, metoprolol and Cardizem. Regarding his UTI, he was seen 2-3 days ago by his urologist and started on unknown antibiotics. He has been on it for the last 2 days. He is supposed to get a TURP in 1-2 weeks. Urine culture taken 2 days ago remained negative. Presently , he has mild dysuria, frequency and urgency but better compared to 5 days ago. He denies any fever, chills, abdominal pain or cough. Review of Systems ROS Limitations: Other (All other pertinent systems were reviewed and are negative.) Past Family Social History Past Medical History Asthma Sleep apnea CVA COPD Atrial fibrillation Hypertension Diabetes Dementia Congestive heart failure Coronary artery disease status post DC, status post CABG and coronary stenting Chronic kidney disease BPH Chronic electrolyte abnormalities Past Surgical History Bypass surgery 15 years ago Coronary stent placement TURP Allergies: Coded Allergies: ciprofloxacin (Unverified Allergy, Severe, 03/31/18) diatrizoate meglumine (Unverified Allergy, Severe, 03/31/18) gadobenic acid (Unverified Allergy, Severe, 03/31/18) gadodiamide (Unverified Allergy, Severe, 03/31/18) gadoteridol (Unverified Allergy, Severe, 03/31/18) iodixanol (Unverified Allergy, Severe, 03/31/18) iohexol (Unverified Allergy, Severe, 03/31/18) levofloxacin (Unverified Allergy, Severe, 03/31/18) Family History Noncontributory Social History Lives at [facility] Denies chronic alcohol use. Physical Exam Vital Signs Vital Signs Date Time Temp Pulse Resp B/P (MAP) Pulse Ox O2 Delivery O2 Flow Rate FiO2 04/01/18 10:04 140 20 139/62 (87) 99 Nasal Cannula 2.00 04/01/18 09:14 118 148/63 (91) 04/01/18 09:10 109/62 (78) 122/76 (91) 04/01/18 09:06 99 04/01/18 08:52 95 22 108/67 (81) 99 04/01/18 08:40 99 Nasal Cannula 2.00 04/01/18 08:38 94 28 143/99 (114) 98 Room Air 04/01/18 06:04 83 16 175/84 (114) 97 Room Air 03/31/18 23:23 83 16 166/73 (104) 97 Room Air 03/31/18 13:14 71 18 148/65 (92) 100 Room Air Physical Exam GENERAL: Not in acute distress, well-nourished. Heart rate in the 110s-120s, atrial fibrillation on telemetry. HEAD: Atraumatic. Normocephalic. EYES: PERRL, full EOMs, no jaundice, nonicteric, pink conjunctivae ENT: Nose without bleeding, purulent drainage. NECK: Trachea midline, no mass, no obvious thyromegaly. CARDIOVASCULAR: Regular rhythm tachycardic, no murmurs appreciated. RESPIRATORY: Clear to auscultation with normal respiratory effort. Decreased breath sounds. GASTROINTESTINAL: Abdomen soft, normal bowel sounds, non-tender, nondistended. Obese. MUSCULOSKELETAL: Extremities without clubbing, cyanosis, 1+ edema. INTEGUMENTARY: Warm and dry, no rash of generalized distribution. NEUROLOGICAL: Awake, alert, oriented 3. No obvious cranial nerve deficits. Moves all 4 extremities, muscle strength testing 5 over 5. Motor and sensory grossly within normal limits. No focal neurologic deficits. No suicidal ideations Laboratory Laboratory Tests Test 04/01/18 08:40 White Blood Count 13.1 Red Blood Count 3.99 Hemoglobin 13.1 Hematocrit 37.2 Mean Corpuscular Volume 93.5 Mean Corpuscular Hemoglobin 32.8 Mean Corpuscular Hemoglobin Concent 35.1 Red Cell Distribution Width 14.7 Platelet Count 312 Mean Platelet Volume 8.1 Neutrophils (%) (Auto) 60.5 Lymphocytes (%) (Auto) 24.1 Monocytes (%) (Auto) 12.6 Eosinophils (%) (Auto) 2.3 Basophils (%) (Auto) 0.5 Neutrophils # (Auto) 8.0 Lymphocytes # (Auto) 3.2 Monocytes # (Auto) 1.7 Eosinophils # (Auto) 0.3 Basophils # (Auto) 0.1 CBC Comment AUTO DIFF Differential Total Cells Counted 100 Neutrophils % (Manual) 59 Lymphocytes % 28 Monocytes % 8 Eosinophils % 1 Basophils % 1 Neutrophils # (Manual) 8.1 Metamyelocytes 3 Differential Comment FINAL DIFF MANUAL Platelet Estimate NORMAL Platelet Morphology Comment NORMAL Red Cell Morphology Comment NORMAL Prothrombin Time 10.1 Prothromb Time International Ratio 1.0 Activated Partial Thromboplast Time 22.4 Blood Urea Nitrogen 71 Creatinine 3.05 Random Glucose 243 Calcium Level 9.3 Magnesium Level 1.9 Sodium Level 136 Potassium Level 3.8 Chloride Level 95 Carbon Dioxide Level 29.2 Anion Gap 12 Estimat Glomerular Filtration Rate 20 Total Creatine Kinase 51 Troponin I 0.03 Date/Time Source Procedure Growth Status 03/30/18 22:47 Urine Random Urine Urine Culture - Preliminary NO GROWTH IN 24 HOURS. Resulted Result Diagram: 04/01/18 0840 04/01/18 0840 Imaging Last Impressions Chest X-Ray 04/01/18 0000 Signed Impressions: CONCLUSION: Negative examination. Caprini VTE Risk Assessment Caprini VTE Risk Assessment: Mod/High Risk (score >= 2) Caprini Risk Assessment Model Point Value = 1 Point Value = 2 Point Value = 3 Point Value = 5 Age 41-60 Minor surgery BMI > 25 kg/m2 Swollen legs Varicose veins or History of unexplained or recurrent spontaneous Oral contraceptives or hormone replacement Sepsis (< 1 month) Serious lung disease, including pneumonia (< 1 month) Abnormal pulmonary function Acute myocardial infarction Congestive heart failure (< 1 month) History of inflammatory bowel disease Medical patient at bed rest Age 61-74 Arthroscopic surgery Major open surgery (> 45 min) Laparoscopic surgery (> 45 min) Malignancy Confined to bed (> 72 hours) Immobilizing plaster cast Central venous access Age >= 75 History of VTE Family history of VTE Factor V Leiden Prothrombin [id number] Lupus anticoagulant Anticardiolipin antibodies Elevated serum homocysteine Heparin-induced thrombocytopenia Other congenital or acquired thrombophilia Stroke (< 1 month) Elective arthroplasty Hip, pelvis, or leg fracture Acute spinal cord injury (< 1 month) Prophylaxis Regimen Total Risk Factor Score Risk Level Prophylaxis Regimen 0-1 Low Early ambulation 2 Moderate Order ONE of the following: *Sequential Compression Device (SCD) *Heparin 5000 units SQ BID 3-4 Higher Order ONE of the following medications: *Heparin 5000 units SQ TID *Enoxaparin/Lovenox 40 mg SQ daily (WT < 150 kg, CrCl > 30 mL/min) *Enoxaparin/Lovenox 30 mg SQ daily (WT < 150 kg, CrCl > 10-29 mL/min) *Enoxaparin/Lovenox 30 mg SQ BID (WT < 150 kg, CrCl > 30 mL/min) AND/OR *Sequential Compression Device (SCD) 5 or more Highest Order ONE of the following medications: *Heparin 5000 units SQ TID (Preferred with Epidurals) *Enoxaparin/Lovenox 40 mg SQ daily (WT < 150 kg, CrCl > 30 mL/min) *Enoxaparin/Lovenox 30 mg SQ daily (WT < 150 kg, CrCl > 10-29 mL/min) *Enoxaparin/Lovenox 30 mg SQ BID (WT < 150 kg, CrCl > 30 mL/min) AND *Sequential Compression Device (SCD) Assessment and Plan Assessment and Plan This is a 72-year-old male with history of atrial fibrillation, COPD, CHF, coronary artery disease status post DC, status post CABG, status post PCI, initially admitted [facility] bravo, Randolph act elected, however while getting ready for discharge, started complaining of chest pain. Chest pain, rule out acute coronary syndrome, could also be secondary to atrial fibrillation with RVR-patient is a strong cardiac history of atrial fibrillation , coronary artery disease with prior CABG and coronary stenting. I believe, the patient went into RVR and constipation symptoms. Patient did not receive his daily medications for more than 24 hours. Currently on amiodarone drip. EKG reviewed, atrial fibrillation with no ischemic changes. Check troponin and EKG serially. Consult cardiology. [facility]. Jenkins. Stop amiodarone drip once atrial fibrillation is rate controlled with metoprolol and Cardizem per home dose. Atrial fibrillation, RVR-on amiodarone drip, restart metoprolol, Cardizem per home dose. Restart Brilinta. Chest x-ray reviewed, unremarkable. Coronary artery disease, status post CABG in the past, status post PCI; chronic congestive heart failure-stable, workup as above. Restart spironolactone, metolazone, metoprolol, Bumex, Imdur, statins COPD-not in exacerbation, restart Spiriva, duo nebs as needed, on prednisone 20 mg daily, monitor, consider tapering Diabetes mellitus-restart long-acting insulin with prandial and sliding scale Chronic kidney disease-creatinine/GFR at baseline, monitor. Recheck BMP tomorrow. BPH, UTI-restart tamsulosin, allegedly on antibiotics prior to coming into the hospital, urine culture checked, negative. Patient only had 2 days worth of antibiotics, urinalysis was positive for leukocyte esterase and WBC, also with leukocytosis and still has urinary symptoms, will restart antibiotics with ceftriaxone. Hypothyroidism-continue Synthroid DVT prophylaxis: On Brilinta Discussed with patient and nursing. Gail Davis MD Apr 01, 2018 11:10
[2018-04-01] MEDS ORDERED: [UNRECOGNIZED DRUG - OTHER] PO SCH (11:45)
[2018-04-01] MEDS ORDERED: DEXTROSE 50% IN WATER 50 ML VIAL(D50) IV PUSH PRN (11:45)
[2018-04-01] MEDS ORDERED: GLUCAGON 1 MG/ML VIAL OTHER PRN (11:45)
[2018-04-01] MEDS ORDERED: SODIUM CHLORIDE 0.9% FLUSH 10 ML FLUSH IV FLUSH PRN (11:45)
[2018-04-01] MEDS ORDERED: CALCIUM CARBONATE 500 MG CHEWABLE TAB CHEW PRN (11:45)
[2018-04-01] MEDS: PANTOPRAZOLE SOD 20 MG DELAYED RELEASE TAB PO SCH ×2 (13:00→20:58)
[2018-04-01] MEDS ORDERED: RESP: ALBUTEROL 2.5 MG/IPRATROPIUM 0.5 MG NEB (PRN) NEB (13:00)
[2018-04-01] MEDS: DILTIAZEM HCL 60 MG TAB PO SCH ×3 (13:00→20:59)
[2018-04-01] MEDS: predniSONE 20 MG TAB PO SCH (13:00)
[2018-04-01] MEDS: INSULIN ASPART 1,000 UNITS/10 ML VIAL SQ SCH ×3 (13:15→20:59)
[2018-04-01] MEDS: INSULIN ASPART SUPPLEMENTAL SCALE SQ SCH ×3 (13:15→20:59)
[2018-04-01] MEDS ORDERED: METOPROLOL TARTRATE 5 MG/5 ML VIAL IV PUSH SCH (13:15)
[2018-04-01] MEDS ORDERED: DESVENLAFAXINE PO SCH (13:30)
[2018-04-01] MEDS: cefTRIAXone INJ 1,000 MG in SODIUM CHLORIDE 0.9% INJ 100 ML IV SCH (14:59)
[2018-04-01] MEDS: METOPROLOL TARTRATE 25 MG TAB PO SCH ×2 (15:36→20:58)
[2018-04-01] MEDS: METOLAZONE 5 MG TAB PO SCH (15:36)
[2018-04-01] MEDS: PREGABALIN 75 MG CAP PO SCH ×2 (15:36→20:58)
[2018-04-01] MEDS: SPIRONOLACTONE 25 MG TAB PO SCH (15:36)
[2018-04-01] MEDS: ISOSORBIDE MONONITRATE 60 MG CR TAB (IMDUR) PO SCH (15:36)
[2018-04-01] MEDS: MULTIVITAMIN TAB PO SCH (15:37)
[2018-04-01] MEDS: CALCITRIOL 0.25 MCG CAP PO SCH (15:37)
[2018-04-01] MEDS: LEVOTHYROXINE SODIUM 200 MCG TAB PO SCH (15:59)
[2018-04-01] MEDS: TIOTROPIUM BROMIDE 18 MCG INH INH SCH (15:59)
[2018-04-01] MEDS: TICAGRELOR 90 MG TAB PO SCH ×2 (15:59→20:58)
[2018-04-01] MEDS: BUMETANIDE 1 MG TAB PO SCH (17:15)
--- NOTE | 2018-04-01 19:38 | MB ---
cc: Konstantin Del Rosario DO DATE: 04/01/2018 REASON FOR CONSULTATION: Atrial fibrillation. HISTORY OF PRESENT ILLNESS: Jonel Monteiro is a 72-year-old male who originally presented as a [facility] Act at [facility] for refusing to give antibiotics for a UTI to the halfway facility. He was seen by psychiatry and Ranodlph Act was lifted. He was supposed to be discharged, but he went to the bathroom and had a bowel movement and then he started cleaning up and he felt lightheaded, dizzy, chest pain on the left side, which went to his left shoulder. He started having palpitations. He had his nitro on him and took a nitro, which did not help. EKG was done, which showed atrial fibrillation in the 130-170 range and so he was admitted. Currently, he feels relatively well, although he still feels palpitations, which seemed to radiate into his jaw. He states that he recently had a stent placed at [facility] a number of months ago, but he is unsure when. He denies current chest pain or shortness of breath. PAST MEDICAL HISTORY: 1. Asthma. 2. Sleep apnea. 3. Cerebrovascular accident. 4. Chronic obstructive pulmonary disease. 5. Atrial fibrillation. 6. Hypertension. 7. Diabetes. 8. Dementia. 9. Congestive heart failure. 10. Coronary artery disease. 11. Chronic kidney disease. 12. Benign prostatic hypertrophy. PAST SURGICAL HISTORY: 1. Bypass surgery around 15 years ago. 2. The patient believes that he had a stent within the past couple of months, but is unsure of the timing of it. 3. TURP. ALLERGIES: 1. CIPROFLOXACIN. 2. DIATRIZOATE. 3. GADOBENIC ACID. 4. GADODIAMIDE. 5. GADOTERIDOL. 6. IODIXANOL. 7. LEVOFLOXACIN. MEDICATIONS: 1. DuoNeb every 4 hours as needed for shortness of breath. 2. Spiriva 18 mcg daily. 3. Flomax 0.4 mg every night. 4. Brilinta 90 mg b.i.d. 5. Lipitor 40 mg every night. 6. Imdur 60 mg daily. 7. Metoprolol tartrate 25 mg b.i.d. 8. Cardizem 60 mg q.i.d. 9. Spironolactone 25 mg daily. 10. Lyrica 75 mg b.i.d. 11. Khedezla 100 mg daily. 11. Amantadine 4 mg daily. 12. Metolazone 10 mg daily. 13. Omeprazole 20 mg b.i.d. 14. Prednisone 20 mg daily. 15. NovoLog sliding scale. 16. NovoLog 10 units with meals. 17. Lantus 17 units every night. 18. Synthroid 200 mcg daily. 19. Calcitriol 0.5 mcg daily. FAMILY HISTORY: Denies premature coronary artery disease or sudden cardiac within the family. SOCIAL HISTORY: Lives at [place]. Denies current tobacco, alcohol or drug abuse. REVIEW OF SYSTEMS: Fourteen systems were reviewed including osteopathic. Pertinent positives and negatives above, otherwise negative. PHYSICAL EXAMINATION: VITAL SIGNS: Temperature 98.3, heart rate 83, blood pressure 124/64, respirations 20, pulse oximetry 100% on 2 liters. GENERAL: The patient appears his stated age. Overall, disheveled. No acute distress. Alert, awake and oriented x 3. HEENT: Extraocular muscles intact. Mucous membranes moist. NECK: Supple. No JVD at 45 degrees. No carotid bruits heard bilaterally. Carotid upstroke is brisk in nature. HEART: Irregularly irregular. Positive first and second heart sounds, with no noted murmurs, gallops or rubs. LUNGS: Have decreased breath sounds bilaterally, but no overt wheezes, rales or rhonchi. ABDOMEN: Soft, nontender, nondistended. No organomegaly noted. EXTREMITIES: Show 1 plus pitting edema bilaterally. NEUROLOGIC: No focal deficits. SKIN: Warm, dry and intact. OSTEOPATHIC: Mild lordosis, no kyphoscoliosis or paraspinal tender points. LABORATORY DATA: Hemoglobin 13.1, hematocrit 37.2, platelets 312. Potassium 3.8, BUN 71, creatinine 3.05. Troponin 0.03. ELECTROCARDIOGRAM (04/01/2018 AT 0839): Atrial fibrillation with rapid ventricular response, nonspecific ST-T wave changes. IMPRESSION: 1. Atypical chest pain. 2. Coronary artery disease with a history of coronary artery bypass grafting and recent stenting of his coronary anatomy (patient is unsure of what artery and when). 3. Atrial fibrillation with rapid ventricular response, currently controlled. 4. Chronic obstructive pulmonary disease. 5. Diabetes mellitus. 6. Acute kidney injury, on chronic kidney disease. 7. Benign prostatic hypertrophy. RECOMMENDATIONS: 1. Mr. Monteiro presented after a bowel movement, most likely straining and probably pushed him into atrial fibrillation with rapid ventricular response. Of note, he was not placed on his metoprolol or Cardizem while in the emergency room and most likely missed these doses for 24 hours. 2. During this episode is when he got lightheaded, as well as the chest pain. His chest pain was not relieved by nitro. His heart rate was noted to be around 170 beats per minute and this is most likely what his chest pain, lightheadedness was due to. 3. We will continue to watch his troponins x 3. 4. Because of his acute kidney injury, he is not an invasive candidate at this time. I did discuss with him the consideration of possible stress testing, but he does not feel that he needs it at this time. We will wait for his troponins to come back and I will further discuss consideration of ischemic evaluation versus medical management with him. 5. He will be placed back on his cardiac medications, including his Brilinta. I am unsure why he is not on aspirin with it and so I will add aspirin 81 mg to his regimen. 6. Further recommendations will be made based on the hospital course. 7. Upon discharge, he will followup with his pecan grower, Dr. Jenkins. 8. Further recommendations will be made based on the hospital course. Thank you for allowing me to see Jonel Monteiro. If there are any questions, please do not hesitate to call. DO CLARISA Felix/SAKINA/whit , 03:55 PM , 05:27 PM
[2018-04-01] MEDS: AMIODARONE INJ 450 MG in SODIUM CHLOR 0.9% (EXCEL) INJ 241 ML IV SCH (20:57)
[2018-04-01] MEDS: TAMSULOSIN HCL 0.4 MG CAP PO SCH (20:58)
[2018-04-01] MEDS: ATORVASTATIN 40 MG TAB PO SCH (20:58)
[2018-04-01] MEDS: SODIUM CHLORIDE 0.9% FLUSH 10 ML FLUSH IV FLUSH SCH (20:58)
[2018-04-01] MEDS: INSULIN DETEMIR 100 UNITS/ML VIAL SQ SCH (20:59)
[2018-04-01] MEDS: KETOCONAZOLE 2% SHAMPOO 120 ML BTL TOPICAL SCH (21:00)
[2018-04-01] MEDS ORDERED: FLUOCINOLONE TOPICAL SCH (21:00)
[2018-04-01 21:31] LABS: ALBUMIN 2.8 GM/DL (3.4-5.0); ALKALINE PHOSPHATASE 64 U/L (45-117); ALT (GPT) 45 U/L (12-78); AST (GOT) 16 U/L (15-37); BICARBONATE 25.1 MEQ/L (21.0-32.0); BLOOD UREA NITROGEN 74 MG/DL (7-18); CALCIUM 8.4 MG/DL (8.5-10.1); CHLORIDE 93 MEQ/L (98-107); CREATININE 3.13 MG/DL (0.60-1.30); GLOMERULAR FILTRATION RATE 20 ML/MIN (>89); SODIUM (NA) 134 MEQ/L (136-145); TOTAL BILIRUBIN ADULT 0.5 MG/DL (0.2-1.0); TOTAL PROTEIN 5.4 GM/DL (6.4-8.2); TROPONIN I 0.33 NG/ML (0.02-0.05)
[2018-04-01 21:42] LABS: GLUCOSE,RANDOM 480 MG/DL (74-106)
[2018-04-02] VITALS (9 sets, daily range): BP systolic 129–149; BP diastolic 59–66; PULSE 53–66; RESP 16–20; TEMP 97.4–98.8; O2SAT 96–98
[2018-04-02] MEDS: AMIODARONE INJ 450 MG in SODIUM CHLOR 0.9% (EXCEL) INJ 241 ML IV SCH ×4 (02:38→23:48)
[2018-04-02 03:33] LABS: HEMATOCRIT 33.1 % (39.0-51.0); HEMOGLOBIN 11.3 GM/DL (13.0-17.0); MEAN CELL VOLUME 92.2 FL (80.0-100.0); MEAN CORPUSCULAR HEMOGLOBIN 31.6 PG (27.0-34.0); MEAN CORPUSCULAR HGB CONC 34.2 % (32.0-36.0); MEAN PLATELET VOLUME 7.9 FL (7.0-11.0); PLATELET COUNT 227 TH/MM3 (150-450); RED BLOOD COUNT 3.59 MIL/MM3 (4.50-5.90); RED CELL DISTRIBUTION WIDTH 14.9 % (11.6-17.2); WHITE BLOOD COUNT 8.4 TH/MM3 (4.0-11.0)
[2018-04-02] MEDS: LEVOTHYROXINE SODIUM 200 MCG TAB PO SCH (05:10)
[2018-04-02] MEDS: INSULIN ASPART SUPPLEMENTAL SCALE SQ SCH ×6 (08:00→21:09)
[2018-04-02] MEDS: INSULIN ASPART 1,000 UNITS/10 ML VIAL SQ SCH ×4 (08:00→21:09)
[2018-04-02] MEDS: CALCITRIOL 0.25 MCG CAP PO SCH (08:33)
[2018-04-02] MEDS: DILTIAZEM HCL 60 MG TAB PO SCH ×4 (08:34→21:11)
[2018-04-02] MEDS: ISOSORBIDE MONONITRATE 60 MG CR TAB (IMDUR) PO SCH (08:34)
[2018-04-02] MEDS: MULTIVITAMIN TAB PO SCH (08:34)
[2018-04-02] MEDS: ASPIRIN 81 MG CHEW TAB CHEW SCH (08:34)
[2018-04-02] MEDS: PREGABALIN 75 MG CAP PO SCH ×2 (08:34→21:10)
[2018-04-02] MEDS: PANTOPRAZOLE SOD 20 MG DELAYED RELEASE TAB PO SCH ×2 (08:34→21:10)
[2018-04-02] MEDS: METOPROLOL TARTRATE 25 MG TAB PO SCH ×2 (08:34→21:11)
[2018-04-02] MEDS: METOLAZONE 5 MG TAB PO SCH (08:34)
[2018-04-02] MEDS: SPIRONOLACTONE 25 MG TAB PO SCH (08:35)
[2018-04-02] MEDS: BUMETANIDE 1 MG TAB PO SCH (08:35)
[2018-04-02] MEDS: TICAGRELOR 90 MG TAB PO SCH ×2 (08:35→21:10)
[2018-04-02] MEDS: predniSONE 20 MG TAB PO SCH (08:35)
[2018-04-02] MEDS: SODIUM CHLORIDE 0.9% FLUSH 10 ML FLUSH IV FLUSH SCH ×2 (08:35→21:08)
[2018-04-02] MEDS: TIOTROPIUM BROMIDE 18 MCG INH INH SCH (08:37)
--- NOTE | 2018-04-02 11:17 | HHI.PR ---
Subjective Remarks Since he still has intermittent chest pain. He is also with atrial fibrillation says he feels at times palpitations. Still with shortness of breath says he cannot walk much without getting short of breath. He is however saturating well on room air this time. Lower extremity edema improving some. Objective Vitals Vital Signs Date Time Temp Pulse Resp B/P (MAP) Pulse Ox O2 Delivery O2 Flow Rate FiO2 04/02/18 08:06 97.4 62 17 145/66 (92) 97 04/02/18 08:00 61 04/02/18 08:00 Nasal Cannula 2.00 04/02/18 04:00 98.8 59 16 129/59 (82) 96 04/02/18 04:00 60 04/02/18 04:00 Nasal Cannula 2.00 04/02/18 00:00 53 04/02/18 00:00 98.0 63 17 149/65 (93) 98 04/02/18 00:00 Nasal Cannula 2.00 04/01/18 20:57 71 163/82 04/01/18 20:00 70 04/01/18 20:00 97.8 71 18 163/71 (101) 98 04/01/18 20:00 Nasal Cannula 2.00 04/01/18 17:00 97.6 74 20 124/68 (86) 100 04/01/18 16:00 79 04/01/18 14:00 98.3 83 20 124/68 (86) 100 04/01/18 13:11 89 20 142/76 (98) 99 Nasal Cannula 2.00 04/01/18 12:35 113 04/01/18 12:01 104 22 149/73 (98) 99 Nasal Cannula 2.00 04/01/18 11:21 130 140/74 I/O 04/01/18 04/01/18 04/01/18 04/02/18 04/02/18 04/02/18 07:00 15:00 23:00 07:00 15:00 23:00 Intake Total 420 ml 440 ml Output Total 600 ml 750 ml Balance -600 ml 420 ml -310 ml Intake Oral 420 ml 440 ml Output Urine Total 600 ml 750 ml # Voids 1 1 # Bowel Movements 0 1 Result Diagram: 04/02/18 0319 04/01/180 Imaging Last Impressions Chest X-Ray 04/01/18 0000 Signed Impressions: CONCLUSION: Negative examination. Objective Remarks GENERAL: Not in acute distress, well-nourished. Heart rate in the 110s-120s, atrial fibrillation on telemetry. CARDIOVASCULAR: Regular rhythm tachycardic, no murmurs appreciated. RESPIRATORY: Clear to auscultation with normal respiratory effort. Decreased breath sounds. GASTROINTESTINAL: Abdomen soft, normal bowel sounds, non-tender, nondistended. Obese. MUSCULOSKELETAL: Extremities without clubbing, cyanosis, 1+ edema. INTEGUMENTARY: Warm and dry, no rash of generalized distribution. NEUROLOGICAL: Awake, alert, oriented 3. No obvious cranial nerve deficits. Moves all 4 extremities, muscle strength testing 5 over 5. Motor and sensory grossly within normal limits. No focal neurologic deficits. No suicidal ideations A/P Assessment and Plan This is a 72-year-old male with history of atrial fibrillation, COPD, CHF, coronary artery disease status post FL, status post CABG, status post PCI, initially admitted Dickson acted, Dickson act elected, however while getting ready for discharge, started complaining of chest pain. Chest pain, rule out acute coronary syndrome, could also be secondary to atrial fibrillation with RVR-patient is a strong cardiac history of atrial fibrillation , coronary artery disease with prior CABG and coronary stenting. I believe, the patient went into RVR and constipation symptoms. Patient did not receive his daily medications for more than 24 hours. Currently on amiodarone drip. EKG reviewed, atrial fibrillation with no ischemic changes. Check troponin and EKG serially. Consult cardiology. Guest Services Associate Dr. Jenkins. Stop amiodarone drip once atrial fibrillation is rate controlled with metoprolol and Cardizem per home dose. Atrial fibrillation, RVR-on amiodarone drip, restart metoprolol, Cardizem per home dose. Restart Brilinta. Chest x-ray reviewed, unremarkable. Coronary artery disease, status post CABG in the past, status post PCI; chronic congestive heart failure-stable, workup as above. Restart spironolactone, metolazone, metoprolol, Bumex, Imdur, statins COPD-not in exacerbation, restart Spiriva, duo nebs as needed, on prednisone 20 mg daily, monitor, consider tapering Diabetes mellitus-restart long-acting insulin with prandial and sliding scale Chronic kidney disease-creatinine/GFR at baseline, monitor. Recheck BMP tomorrow. BPH, UTI-restart tamsulosin, allegedly on antibiotics prior to coming into the hospital, urine culture checked, negative. Patient only had 2 days worth of antibiotics, urinalysis was positive for leukocyte esterase and WBC, also with leukocytosis and still has urinary symptoms, will restart antibiotics with ceftriaxone. Hypothyroidism-continue Synthroid DVT prophylaxis: On Brilinta Discussed with patient and nurse. Marcella Aden MD Apr 02, 2018 11:17
--- NOTE | 2018-04-02 11:31 | PD.CARD.PN ---
Subjective Subjective Remarks No events overnight Mild SOB Objective Medications Current Medications Medications (Trade) Dose Ordered Sig/Domingo Route Start Time Stop Time Status Last Admin (NS Flush) 2 ml UNSCH PRN IV FLUSH 04/01/18 11:45 (NS Flush) 2 ml BID IV FLUSH 04/01/18 21:00 04/02/18 08:35 (Lopressor Inj) 5 mg ONCE IV PUSH 04/01/18 13:15 04/02/18 13:14 (NovoLOG SUPPLEMENTAL SCALE) 1 ACHS SLIDING SCALE SQ 04/01/18 13:15 04/01/18 20:59 (D50w (Vial) Inj) 50 ml UNSCH PRN IV PUSH 04/01/18 11:45 (Glucagon Inj) 1 mg UNSCH PRN OTHER 04/01/18 11:45 (Tylenol) 650 mg Q6H PRN PO 04/01/18 11:45 (Lipitor) 40 mg HS PO 04/01/18 21:00 04/01/18 20:58 (Bumetanide) 4 mg DAILY PO 04/01/18 13:30 04/02/18 08:35 (Rocaltrol) 0.5 mcg DAILY PO 04/01/18 13:30 04/02/18 08:33 (Tums Chew) 500 mg DAILY PRN CHEW 04/01/18 11:45 (Cardizem) 60 mg QID PO 04/01/18 13:00 04/02/18 08:34 (NovoLOG INJ) 10 units ACHS SQ 04/01/18 13:15 04/01/18 20:59 (Levemir Inj) 17 units HS SQ 04/01/18 21:00 04/01/18 20:59 (Duoneb Neb) 1 ampule Q4HR NEB PRN NEB 04/01/18 13:00 (Imdur) 60 mg DAILY PO 04/01/18 13:30 04/02/18 08:34 (Nizoral 2% Shampoo) 1 applic HS TOPICAL 04/01/18 21:00 (Synthroid) 200 mcg DAILY@0600 PO 04/01/18 13:00 04/02/18 05:10 (Zaroxolyn) 10 mg DAILY PO 04/01/18 13:30 04/02/18 08:34 (Lopressor) 25 mg BID PO 04/01/18 13:30 04/02/18 08:34 (Deltasone) 20 mg DAILY PO 04/01/18 13:00 04/02/18 08:35 (Lyrica) 75 mg BID PO 04/01/18 14:00 04/02/18 08:34 (Aldactone) 25 mg DAILY PO 04/01/18 13:00 04/02/18 08:35 (Flomax) 0.4 mg HS PO 04/01/18 21:00 04/01/18 20:58 (Brilinta) 90 mg BID PO 04/01/18 13:30 04/02/18 08:35 (Spiriva Inh) 18 mcg DAILY INH 04/01/18 13:00 04/02/18 08:37 Patient Own Medication PT OWN MED: KHEDEZLA (DESVENLAFAX... DAILY PO 04/01/18 13:30 Future Hold Patient Own Medication PT OWN MED: FLUOCINOL... BID TOPICAL 04/01/18 21:00 Future Hold (Theragran) 1 tab DAILY PO 04/01/18 13:15 04/02/18 08:34 (Protonix) 20 mg BID PO 04/01/18 13:00 04/02/18 08:34 Ceftriaxone Sodium 1000 mg/ Sodium Chloride 100 ml @ 200 mls/hr Q24H IV 04/01/18 14:00 04/01/18 14:59 (Aspirin Chew) 81 mg DAILY CHEW 04/02/18 09:00 04/02/18 08:34 Amiodarone HCl 450 mg/Sodium Chloride 250 ml @ 33 mls/hr Q7H35M IV 04/01/18 19:30 04/01/18 20:57 Vital Signs / I&O Vital Signs Date Time Temp Pulse Resp B/P (MAP) Pulse Ox O2 Delivery O2 Flow Rate FiO2 04/02/18 08:06 97.4 62 17 145/66 (92) 97 04/02/18 08:00 61 04/02/18 08:00 Nasal Cannula 2.00 04/02/18 04:00 98.8 59 16 129/59 (82) 96 04/02/18 04:00 60 04/02/18 04:00 Nasal Cannula 2.00 04/02/18 00:00 53 04/02/18 00:00 98.0 63 17 149/65 (93) 98 04/02/18 00:00 Nasal Cannula 2.00 04/01/18 20:57 71 163/82 04/01/18 20:00 70 04/01/18 20:00 97.8 71 18 163/71 (101) 98 04/01/18 20:00 Nasal Cannula 2.00 04/01/18 17:00 97.6 74 20 124/68 (86) 100 04/01/18 16:00 79 04/01/18 14:00 98.3 83 20 124/68 (86) 100 04/01/18 13:11 89 20 142/76 (98) 99 Nasal Cannula 2.00 04/01/18 12:35 113 04/01/18 12:01 104 22 149/73 (98) 99 Nasal Cannula 2.00 04/01/18 11:21 130 140/74 04/01/18 11:11 110 22 149/73 (98) 98 Nasal Cannula 2.00 I/O 04/01/18 04/01/18 04/01/18 04/02/18 04/02/18 04/02/18 07:00 15:00 23:00 07:00 15:00 23:00 Intake Total 420 ml 440 ml Output Total 600 ml 750 ml Balance -600 ml 420 ml -310 ml Intake Oral 420 ml 440 ml Output Urine Total 600 ml 750 ml # Voids 1 1 # Bowel Movements 0 1 Physical Exam GENERAL: NAD SKIN: Warm and dry. HEAD: Atraumatic. Normocephalic. EYES: Pupils equal and round. No scleral icterus. No injection or drainage. ENT: No nasal bleeding or discharge. Mucous membranes pink and moist. NECK: Trachea midline. No JVD. CARDIOVASCULAR: Regular rate and rhythm. RESPIRATORY: No accessory muscle use. Decreased breath sounds. GASTROINTESTINAL: Abdomen soft, non-tender, nondistended. Hepatic and splenic margins not palpable. MUSCULOSKELETAL: Extremities without clubbing, cyanosis, or edema. No obvious deformities. NEUROLOGICAL: Awake and alert. No obvious cranial nerve deficits. Motor grossly within normal limits. Five out of 5 muscle strength in the arms and legs. Normal speech. PSYCHIATRIC: Appropriate mood and affect; insight and judgment normal. Laboratory Laboratory Tests Test 04/01/18 19:20 04/02/18 03:19 Blood Urea Nitrogen 74 MG/DL Creatinine 3.13 MG/DL Random Glucose 480 MG/DL Total Protein 5.4 GM/DL Albumin 2.8 GM/DL Calcium Level 8.4 MG/DL Alkaline Phosphatase 64 U/L Aspartate Amino Transf (AST/SGOT) 16 U/L Alanine Aminotransferase (ALT/SGPT) 45 U/L Total Bilirubin 0.5 MG/DL Sodium Level 134 MEQ/L Potassium Level 3.9 MEQ/L Chloride Level 93 MEQ/L Carbon Dioxide Level 25.1 MEQ/L Anion Gap 16 MEQ/L Estimat Glomerular Filtration Rate 20 ML/MIN Troponin I 0.33 NG/ML 0.30 NG/ML White Blood Count 8.4 TH/MM3 Red Blood Count 3.59 MIL/MM3 Hemoglobin 11.3 GM/DL Hematocrit 33.1 % Mean Corpuscular Volume 92.2 FL Mean Corpuscular Hemoglobin 31.6 PG Mean Corpuscular Hemoglobin Concent 34.2 % Red Cell Distribution Width 14.9 % Platelet Count 227 TH/MM3 Mean Platelet Volume 7.9 FL Assessment and Plan Problem List: (1) Elevated troponin ICD Codes: R74.8 - Abnormal levels of other serum enzymes (2) Atrial fibrillation ICD Codes: I48.91 - Unspecified atrial fibrillation (3) Coronary artery disease ICD Codes: I25.10 - Atherosclerotic heart disease of [place] coronary artery without angina pectoris (4) Hx of CABG ICD Codes: Z95.1 - Presence of aortocoronary bypass graft Assessment and Plan 1) Atypical chest pain Possibly due to AFib with RVR Different from when he needed a stent 2) Elevated trop Possible Type 2 Did have chest pain, albeit atypical, but discussed consideration of ischemic evaluation with either stress test or cath (although GABBI on CKD) Patient wants to be treated medically, doesn't feel that stress or cath will help him Discussed this further with him about why we would do the testing and how it would help, but wants to hold off Reviewed previous cath from 08/2017 LAURA to LAD, SVG to RCA patent, recommended medical management 3) AFib, currently sinus rhythm Most likely potentiated by his bowel movement/straining and not being on his medications 4) GABBI on CKD Overall high risk for kidney injury with contrast 5) On discharge will follow up with Konstantin Eaton DO Apr 02, 2018 11:31
--- NOTE | 2018-04-02 15:04 | EKG ---
Date Performed: 04/01/2018 Time Performed: 17:19:47 PTAGE: 72 years EKG: Sinus rhythm NONSPECIFIC ST & T-WAVE ABNORMALITY BORDERLINE ECG PREVIOUS TRACING : 04/01/2018 08.39 Since the previous tracing, no significant change noted DOCTOR: Mayito Marcelino Interpretating Date/Time 04/02/2018 15:03:43
--- NOTE | 2018-04-02 15:04 | EKG ---
Date Performed: 04/01/2018 Time Performed: 08:39:05 PTAGE: 72 years EKG: ATRIAL FIBRILLATION WITH RAPID VENTRICULAR RESPONSE WITH ABERRANT CONDUCTION OR VENTRICULAR PREMATURE COMPLEXES NONSPECIFIC ST & T-WAVE ABNORMALITY ABNORMAL ECG PREVIOUS TRACING 07/16/2007 Prolonged corrected QT interval DOCTOR: Mayito Marcelino Interpretating Date/Time 04/02/2018 15:03:35
[2018-04-02] MEDS: cefTRIAXone INJ 1,000 MG in SODIUM CHLORIDE 0.9% INJ 100 ML IV SCH (15:06)
[2018-04-02] MEDS: KETOCONAZOLE 2% SHAMPOO 120 ML BTL TOPICAL SCH (21:00)
[2018-04-02] MEDS: INSULIN DETEMIR 100 UNITS/ML VIAL SQ SCH (21:09)
[2018-04-02] MEDS: ATORVASTATIN 40 MG TAB PO SCH (21:10)
[2018-04-02] MEDS: TAMSULOSIN HCL 0.4 MG CAP PO SCH (21:10)
[2018-04-02] MEDS: ACETAMINOPHEN 325 MG TAB PO PRN (21:19)
[2018-04-03] VITALS (9 sets, daily range): BP systolic 115–153; BP diastolic 59–69; PULSE 55–69; RESP 17–20; TEMP 97–97.8; O2SAT 95–100
[2018-04-03] MEDS: LEVOTHYROXINE SODIUM 200 MCG TAB PO SCH (05:06)
[2018-04-03 06:55] LABS: AUTOMATED NEUTROPHIL # 6.8 TH/MM3 (1.8-7.7); BASOPHIL % 0.4 % (0.0-2.0); EOSINOPHIL # 0.1 TH/MM3 (0-0.4); EOSINOPHIL % 1.3 % (0.0-4.0); HEMATOCRIT 30.7 % (39.0-51.0); HEMOGLOBIN 10.7 GM/DL (13.0-17.0); LYMPH % 15.5 % (9.0-44.0); LYMPHOCYTE # 1.4 TH/MM3 (1.0-4.8); MEAN CELL VOLUME 91.7 FL (80.0-100.0); MEAN CORPUSCULAR HGB CONC 34.8 % (32.0-36.0); MEAN PLATELET VOLUME 8.5 FL (7.0-11.0); MONO % 9.5 % (0.0-8.0); MONOCYTE # 0.9 TH/MM3 (0-0.9); NEUT % 73.3 % (16.0-70.0); PLATELET COUNT 219 TH/MM3 (150-450); RED BLOOD COUNT 3.35 MIL/MM3 (4.50-5.90); RED CELL DISTRIBUTION WIDTH 14.3 % (11.6-17.2); WHITE BLOOD COUNT 9.3 TH/MM3 (4.0-11.0)
[2018-04-03 07:19] LABS: BICARBONATE 30.9 MEQ/L (21.0-32.0); CALCIUM 9.1 MG/DL (8.5-10.1); CREATININE 3.05 MG/DL (0.60-1.30); MAGNESIUM 1.9 MG/DL (1.5-2.5)
[2018-04-03] MEDS: INSULIN ASPART SUPPLEMENTAL SCALE SQ SCH ×4 (08:00→21:34)
[2018-04-03] MEDS: SODIUM CHLORIDE 0.9% FLUSH 10 ML FLUSH IV FLUSH SCH ×2 (08:40→21:36)
[2018-04-03] MEDS: INSULIN ASPART 1,000 UNITS/10 ML VIAL SQ SCH ×4 (08:41→21:34)
[2018-04-03] MEDS: MULTIVITAMIN TAB PO SCH (08:44)
[2018-04-03] MEDS: SPIRONOLACTONE 25 MG TAB PO SCH (08:45)
[2018-04-03] MEDS: ISOSORBIDE MONONITRATE 60 MG CR TAB (IMDUR) PO SCH (08:45)
[2018-04-03] MEDS: BUMETANIDE 1 MG TAB PO SCH (08:45)
[2018-04-03] MEDS: METOLAZONE 5 MG TAB PO SCH (08:47)
[2018-04-03] MEDS: CALCITRIOL 0.25 MCG CAP PO SCH (08:47)
[2018-04-03] MEDS: PANTOPRAZOLE SOD 20 MG DELAYED RELEASE TAB PO SCH ×2 (08:47→21:35)
[2018-04-03] MEDS: TICAGRELOR 90 MG TAB PO SCH ×2 (08:47→21:35)
[2018-04-03] MEDS: PREGABALIN 75 MG CAP PO SCH ×2 (08:47→21:35)
[2018-04-03] MEDS: TIOTROPIUM BROMIDE 18 MCG INH INH SCH (08:48)
[2018-04-03] MEDS: ASPIRIN 81 MG CHEW TAB CHEW SCH (08:48)
[2018-04-03] MEDS: DILTIAZEM HCL 60 MG TAB PO SCH ×4 (08:48→21:35)
[2018-04-03] MEDS: predniSONE 20 MG TAB PO SCH (08:48)
[2018-04-03] MEDS: METOPROLOL TARTRATE 25 MG TAB PO SCH ×2 (08:48→21:35)
[2018-04-03] MEDS: AMIODARONE INJ 450 MG in SODIUM CHLOR 0.9% (EXCEL) INJ 241 ML IV SCH ×3 (08:49→21:38)
--- NOTE | 2018-04-03 08:59 | HHI.DS ---
Discharge Summary Admission Date Apr 01, 2018 at 11:51 Discharge Date: Apr 06, 2018 Admitting Diagnosis REFRACTORY AFIB WITH RVR (1) Cerebrovascular disease ICD Code: I67.9 - Cerebrovascular disease, unspecified (2) Generalized pain ICD Code: R52 - Pain, unspecified (3) CKD (chronic kidney disease), stage IV ICD Code: N18.4 - Chronic kidney disease, stage 4 (severe) (4) GABBI (acute kidney injury) ICD Code: N17.9 - Acute kidney failure, unspecified (5) Weakness ICD Code: R53.1 - Weakness (6) Acute metabolic encephalopathy ICD Code: G93.41 - Metabolic encephalopathy (7) Type 2 diabetes mellitus ICD Code: E11.9 - Type 2 diabetes mellitus without complications (8) Atrial fibrillation ICD Code: I48.91 - Unspecified atrial fibrillation (9) Coronary artery disease ICD Code: I25.10 - Atherosclerotic heart disease of [place] coronary artery without angina pectoris (10) UTI (urinary tract infection) ICD Code: N39.0 - Urinary tract infection, site not specified Status: Acute (11) Anxiety ICD Code: F41.9 - Anxiety disorder, unspecified Status: Acute (12) Medical clearance for psychiatric admission ICD Code: Z00.8 - Encounter for other general examination Status: Acute (13) Superficial venous thrombosis of left arm ICD Code: I82.612 - Acute embolism and thrombosis of superficial veins of left upper extremity (14) Left arm swelling ICD Code: M79.89 - Other specified soft tissue disorders (15) Bilateral lower extremity edema ICD Code: R60.0 - Localized edema (16) Non compliance with medical treatment ICD Code: Z91.19 - Patient's noncompliance with other medical treatment and regimen (17) Hx of CABG ICD Code: Z95.1 - Presence of aortocoronary bypass graft (18) Elevated troponin ICD Code: R74.8 - Abnormal levels of other serum enzymes Procedures none Brief History - From Admission This is a 72-year-old male with history of CVA, COPD, hypertension, diabetes mellitus, dementia, congestive heart failure, coronary artery disease status post HI, status post CABG and previous coronary stenting, chronic kidney disease who initially presented to emergency department after the patient was [facility] acted at [facility] for refusing to give his antibiotics for UTI to the assisted facility. Patient was given ceftriaxone 1 g IV and urine was sent for culture. Patient seen by psychiatry, [place] act was lifted and patient was supposed to be discharged today however on the way to the bathroom, patient complained of chest pain. His symptoms started after having a big bowel movement when he started feeling lightheaded, dizzy, chest tightness on the left side of his anterior thoracic area radiating to the neck into the left arm associated with shortness of breath, palpitations, generalized weakness and diaphoresis. EKG was done which showed atrial fibrillation in the 130s to the 170s. Patient was given aspirin, metoprolol 5 mg IV 3 and he was started on amiodarone drip. Of note, the patient's home medications were not started during his ED stay including his Brilinta, metoprolol and Cardizem. Regarding his UTI, he was seen 2-3 days ago by his urologist and started on unknown antibiotics. He has been on it for the last 2 days. He is supposed to get a TURP in 1-2 weeks. Urine culture taken 2 days ago remained negative. Presently , he has mild dysuria, frequency and urgency but better compared to 5 days ago. He denies any fever, chills, abdominal pain or cough. CBC/BMP: 04/03/18 0450 04/03/18 0450 Significant Findings Laboratory Tests Test 04/01/18 08:40 04/01/18 19:20 04/02/18 03:19 04/03/18 04:50 White Blood Count 13.1 TH/MM3 (4.0-11.0) Red Blood Count 3.99 MIL/MM3 (4.50-5.90) 3.59 MIL/MM3 (4.50-5.90) 3.35 MIL/MM3 (4.50-5.90) Hematocrit 37.2 % (39.0-51.0) 33.1 % (39.0-51.0) 30.7 % (39.0-51.0) Monocytes (%) (Auto) 12.6 % (0.0-8.0) 9.5 % (0.0-8.0) Neutrophils # (Auto) 8.0 TH/MM3 (1.8-7.7) Monocytes # (Auto) 1.7 TH/MM3 (0-0.9) Neutrophils # (Manual) 8.1 TH/MM3 (1.8-7.7) Metamyelocytes 3 % (0-1) Activated Partial Thromboplast Time 22.4 SEC (24.3-30.1) Blood Urea Nitrogen 71 MG/DL (7-18) 74 MG/DL (7-18) 77 MG/DL (7-18) Creatinine 3.05 MG/DL (0.60-1.30) 3.13 MG/DL (0.60-1.30) 3.05 MG/DL (0.60-1.30) Random Glucose 243 MG/DL (74-106) 480 MG/DL (74-106) 179 MG/DL (74-106) Chloride Level 95 MEQ/L (98-107) 93 MEQ/L (98-107) 95 MEQ/L (98-107) Estimat Glomerular Filtration Rate 20 ML/MIN (>89) 20 ML/MIN (>89) 20 ML/MIN (>89) Total Protein 5.4 GM/DL (6.4-8.2) Albumin 2.8 GM/DL (3.4-5.0) Calcium Level 8.4 MG/DL (8.5-10.1) Sodium Level 134 MEQ/L (136-145) Anion Gap 16 MEQ/L (5-15) Troponin I 0.33 NG/ML (0.02-0.05) 0.30 NG/ML (0.02-0.05) Hemoglobin 11.3 GM/DL (13.0-17.0) 10.7 GM/DL (13.0-17.0) Neutrophils (%) (Auto) 73.3 % (16.0-70.0) Potassium Level 3.0 MEQ/L (3.5-5.1) Imaging Last Impressions Chest X-Ray 04/01/18 0000 Signed Impressions: CONCLUSION: Negative examination. PE at Discharge GENERAL: Not in acute distress, well-nourished. Heart rate in the 110s-120s, atrial fibrillation on telemetry. CARDIOVASCULAR: Regular rhythm tachycardic, no murmurs appreciated. RESPIRATORY: Clear to auscultation with normal respiratory effort. Decreased breath sounds. GASTROINTESTINAL: Abdomen soft, normal bowel sounds, non-tender, nondistended. Obese. MUSCULOSKELETAL: Extremities without clubbing, cyanosis, 1+ edema. INTEGUMENTARY: Warm and dry, no rash of generalized distribution. NEUROLOGICAL: Awake, alert, oriented 3. No obvious cranial nerve deficits. Moves all 4 extremities, muscle strength testing 5 over 5. Motor and sensory grossly within normal limits. No focal neurologic deficits. No suicidal ideations Hospital Course This is a 72-year-old male with history of atrial fibrillation, COPD, CHF, coronary artery disease status post HI, status post CABG, status post PCI, initially admitted Dickson acted, Dickson act elected, however while getting ready for discharge, started complaining of chest pain. Chest pain, rule out acute coronary syndrome, could also be secondary to atrial fibrillation with RVR-patient is a strong cardiac history of atrial fibrillation , coronary artery disease with prior CABG and coronary stenting. I believe, the patient went into RVR and constipation symptoms. Patient did not receive his daily medications for more than 24 hours. Currently on amiodarone drip. EKG reviewed, atrial fibrillation with no ischemic changes. Check troponin and EKG serially. Consult cardiology. Director [employer] Dr. Jenkins. Stop amiodarone drip once atrial fibrillation is rate controlled with metoprolol and Cardizem per home dose. Atrial fibrillation, RVR-on amiodarone drip, restart metoprolol, Cardizem per home dose. Restart Brilinta. Chest x-ray reviewed, unremarkable. Coronary artery disease, status post CABG in the past, status post PCI; chronic congestive heart failure-stable, workup as above. Restart spironolactone, metolazone, metoprolol, Bumex, Imdur, statins Benign positional vertigo. Start meclizine. Improved with meclizine COPD-not in exacerbation, restart Spiriva, duo nebs as needed, on prednisone 20 mg daily, monitor, consider tapering Diabetes mellitus-restart long-acting insulin with prandial and sliding scale Chronic kidney disease-creatinine/GFR at baseline, monitor. Recheck BMP tomorrow. BPH, UTI-restart tamsulosin, allegedly on antibiotics prior to coming into the hospital, urine culture checked, negative. Patient only had 2 days worth of antibiotics, urinalysis was positive for leukocyte esterase and WBC, also with leukocytosis and still has urinary symptoms, will restart antibiotics with ceftriaxone. Asymptomatic at this time. Hypothyroidism-continue Synthroid DVT prophylaxis: On Brilinta Discussed with patient and nurse. [facility] done. Patient is homeless. Case management is following for discharge planning. Refusing SNF in [place]. CM ff. Patient says he does not want to go to any rehab. He is ambulating in the room and in the hallways without any problems. Says family and friends are in this area. He wants to be discharge home he will go to his friend and if needed he will stay a motel. Says his friend is coming out. Patient is discharged home in stable condition to follow-up with PCP and consultants as outpatient. Pt Condition on Discharge: Stable Discharge Disposition: Discharge Home Discharge Time: > 30 minutes Discharge Instructions DIET: Follow Instructions for: Heart Healthy Diet, Diabetic Diet Activities you can perform: Regular-No Restrictions Follow up Referrals: Cardiology - 1 [address] LEVY PCP Follow-up - 2-3 Days PCP Follow-up @ DR. WILSON New Medications: Meclizine (Meclizine) 25 Mg Tab 25 MG PO DIRECTED PRN for VERTIGO, #60 TAB 0 Refills Continued Medications: Acetaminophen (Tylenol) 325 Mg Tab 650 MG PO Q6H PRN for PAIN 1 TO 10 AND/OR AGITATION, TAB 0 Refills Atorvastatin (Atorvastatin) 40 Mg Tab 40 MG PO HS for Cholesterol Management, #30 TAB 0 Refills B-Complex W/ C & E + Zn (Stress B/Zinc) 1 Tab 1 TAB PO DAILY Bumetanide (Bumetanide) 2 Mg Tab 4 MG PO DAILY, TAB 0 Refills Calcitriol (Calcitriol) 0.5 Mcg Cap 0.5 MCG PO DAILY for Calcium Supplement, #30 CAP 0 Refills Calcium Carbonate (Antacid) (Calcium Carbonate (Antacid)) 500 Mg Chew 500 MG CHEW DAILY PRN for HEARTBURN, TAB 0 Refills Desvenlafaxine ER 24 HR (Khedezla 24 HR) 50 Mg Tab 100 MG PO DAILY, TAB Diltiazem (Diltiazem) 60 Mg Tab 60 MG PO QID for Angina, #120 TAB 0 Refills Fluocinolone Topical (Fluocinolone Body Topical) 0.01 % Oil 1 APPLIC TOPICAL BID Insulin Aspart Inj (Novolog Inj) 1,000 Unit/10 Ml Vial 0 SQ DIRECTED for Blood Sugar Management, #10 ML 0 Refills Sliding Scale as directed. Insulin Aspart Inj (Novolog Inj) 1,000 Unit/10 Ml Vial 10 UNITS SQ ACHS for Blood Sugar Management, #10 ML 0 Refills Max dose at bedtime ( ) units; sugars less than 70,(0) units; sugars 150-199,(2) units; sugars 200-249,(4) units; sugars 250-299,(7) units; sugars 300-349,(10) units; sugars greater than 349,(12)units Insulin Glargine Inj (Lantus Inj) 1,000 Unit/10 Ml Vial 17 UNITS SQ HS for Blood Sugar Management, VIAL 0 Refills Ipratropium-Albuterol Neb (Duoneb) 0.5-2.5 Mg/3 Ml Neb 1 NEBULE INH Q4HR NEB PRN for SOB/WHEEZING, #120 NEBULE 0 Refills Isosorbide Mononitrate ER (Isosorbide Mononitrate ER) 60 Mg Tab 60 MG PO DAILY for Prevent Chest Pain, #30 TAB 0 Refills Ketoconazole Topical Shampoo (Nizoral Topical Shampoo) 2% Sham 1 APPLIC TOPICAL HS for Fungal Infection, BOTTLE 0 Refills Apply to scalp Levothyroxine (Levothyroxine) 200 Mcg Tab 200 MCG PO DAILY for Thyroid, #30 TAB 0 Refills Metolazone (Metolazone) 10 Mg Tab 10 MG PO DAILY, #30 TAB 0 Refills Metoprolol Tartrate (Metoprolol Tartrate) 25 Mg Tab 25 MG PO BID, #60 TAB 0 Refills Multiple Vitamin (Multiple Vitamin) 1 Tab 1 TAB PO DAILY for Nutritional Supplement, TAB 0 Refills Omeprazole (Omeprazole) 20 Mg Tab 20 MG PO BID, #30 TAB 0 Refills Prednisone (Prednisone) 20 Mg Tab 20 MG PO DAILY, TAB 0 Refills Pregabalin (Lyrica) 75 Mg Cap 75 MG PO BID, #60 CAP 0 Refills Spironolactone (Spironolactone) 25 Mg Tab 25 MG PO DAILY, #30 TAB 0 Refills Tamsulosin (Tamsulosin) 0.4 Mg Cap 0.4 MG PO HS for Manage Prostate Problems, #30 CAP 0 Refills Ticagrelor (Brilinta) 90 Mg Tab 90 MG PO BID for Blood Clot Prevention, #60 TAB 0 Refills Tiotropium Inh (Spiriva Handihaler) 18 Mcg Cap 18 MCG INH DAILY for COPD, #30 CAP 0 Refills 1 capsule = 18 mcg Marcella Aden MD Apr 03, 2018 08:59
--- NOTE | 2018-04-03 09:22 | HHI.PR ---
Subjective Remarks No much chest pain. However he feels dizzy today. Seen by cardiology not clear for discharge yet. Started meclizine. Says he has some back pain from previous injury long time ago this is a chronic pain. Otherwise no nausea vomiting no diaphoresis. Objective Vitals Vital Signs Date Time Temp Pulse Resp B/P (MAP) Pulse Ox O2 Delivery O2 Flow Rate FiO2 04/03/18 08:03 97.7 62 17 143/65 (91) 96 04/03/18 08:00 63 04/03/18 04:00 Nasal Cannula 2.00 04/03/18 04:00 57 04/03/18 04:00 97.0 61 18 115/59 (77) 100 04/03/18 00:00 97.3 55 18 137/63 (87) 95 04/03/18 00:00 Nasal Cannula 2.00 04/03/18 00:00 58 04/02/18 20:00 97.4 60 20 139/65 (89) 98 04/02/18 20:00 Nasal Cannula 2.00 04/02/18 20:00 63 04/02/18 16:06 97.5 66 18 129/63 (85) 97 04/02/18 16:00 65 04/02/18 12:06 98.0 59 17 142/66 (91) 98 04/02/18 12:00 59 I/O 04/02/18 04/02/18 04/02/18 04/03/18 04/03/18 04/03/18 07:00 15:00 23:00 07:00 15:00 23:00 Intake Total 440 ml 600 ml 750 ml Output Total 750 ml 400 ml Balance -310 ml 200 ml 750 ml Intake Oral 440 ml 600 ml 750 ml Output Urine Total 750 ml 400 ml # Voids 3 # Bowel Movements 1 1 1 Result Diagram: 04/03/18 0450 04/03/18 0450 Imaging Last Impressions Chest X-Ray 04/01/18 0000 Signed Impressions: CONCLUSION: Negative examination. Objective Remarks GENERAL: Not in acute distress, well-nourished. Heart rate in the 110s-120s, atrial fibrillation on telemetry. CARDIOVASCULAR: Regular rhythm tachycardic, no murmurs appreciated. RESPIRATORY: Clear to auscultation with normal respiratory effort. Decreased breath sounds. GASTROINTESTINAL: Abdomen soft, normal bowel sounds, non-tender, nondistended. Obese. MUSCULOSKELETAL: Extremities without clubbing, cyanosis, 1+ edema. INTEGUMENTARY: Warm and dry, no rash of generalized distribution. NEUROLOGICAL: Awake, alert, oriented 3. No obvious cranial nerve deficits. Moves all 4 extremities, muscle strength testing 5 over 5. Motor and sensory grossly within normal limits. No focal neurologic deficits. No suicidal ideations Procedures none A/P Assessment and Plan This is a 72-year-old male with history of atrial fibrillation, COPD, CHF, coronary artery disease status post UT, status post CABG, status post PCI, initially admitted D[facility] acted, Dickson act elected, however while getting ready for discharge, started complaining of chest pain. Chest pain, rule out acute coronary syndrome, could also be secondary to atrial fibrillation with RVR-patient is a strong cardiac history of atrial fibrillation , coronary artery disease with prior CABG and coronary stenting. I believe, the patient went into RVR and constipation symptoms. Patient did not receive his daily medications for more than 24 hours. Currently on amiodarone drip. EKG reviewed, atrial fibrillation with no ischemic changes. Check troponin and EKG serially. Consult cardiology. [employer] Dr. Jenkins. Stop amiodarone drip once atrial fibrillation is rate controlled with metoprolol and Cardizem per home dose. Atrial fibrillation, RVR-on amiodarone drip, restart metoprolol, Cardizem per home dose. Restart Brilinta. Chest x-ray reviewed, unremarkable. Coronary artery disease, status post CABG in the past, status post PCI; chronic congestive heart failure-stable, workup as above. Restart spironolactone, metolazone, metoprolol, Bumex, Imdur, statins Benign positional vertigo. Start meclizine. COPD-not in exacerbation, restart Spiriva, duo nebs as needed, on prednisone 20 mg daily, monitor, consider tapering Diabetes mellitus-restart long-acting insulin with prandial and sliding scale Chronic kidney disease-creatinine/GFR at baseline, monitor. Recheck BMP tomorrow. BPH, UTI-restart tamsulosin, allegedly on antibiotics prior to coming into the hospital, urine culture checked, negative. Patient only had 2 days worth of antibiotics, urinalysis was positive for leukocyte esterase and WBC, also with leukocytosis and still has urinary symptoms, will restart antibiotics with ceftriaxone. Hypothyroidism-continue Synthroid DVT prophylaxis: On Brilinta Discussed with patient and nurse. Discharge when improved and cleared by cardiology. Patient was with the vertigo today started meclizine. Marcella Aden MD Apr 03, 2018 09:22
[2018-04-03] MEDS ORDERED: MECLIZINE HCL 25 MG TAB PO ONE (10:00)
[2018-04-03] MEDS: ACETAMINOPHEN 325 MG TAB PO PRN ×2 (12:11→18:29)
--- NOTE | 2018-04-03 12:50 | PD.CARD.PN ---
Subjective Subjective Remarks No events overnight Feels dizzy overall, heart rate 60s during the episode Feels like room somewhat spinning Objective Medications Current Medications Medications (Trade) Dose Ordered Sig/Domingo Route Start Time Stop Time Status Last Admin (NS Flush) 2 ml UNSCH PRN IV FLUSH 04/01/18 11:45 (NS Flush) 2 ml BID IV FLUSH 04/01/18 21:00 04/03/18 08:40 (D50w (Vial) Inj) 50 ml UNSCH PRN IV PUSH 04/01/18 11:45 (Glucagon Inj) 1 mg UNSCH PRN OTHER 04/01/18 11:45 (Tylenol) 650 mg Q6H PRN PO 04/01/18 11:45 04/03/18 12:11 (Lipitor) 40 mg HS PO 04/01/18 21:00 04/02/18 21:10 (Bumetanide) 4 mg DAILY PO 04/01/18 13:30 04/03/18 08:45 (Rocaltrol) 0.5 mcg DAILY PO 04/01/18 13:30 04/03/18 08:47 (Tums Chew) 500 mg DAILY PRN CHEW 04/01/18 11:45 (Cardizem) 60 mg QID PO 04/01/18 13:00 04/03/18 12:07 (NovoLOG INJ) 10 units ACHS SQ 04/01/18 13:15 04/03/18 12:08 (Levemir Inj) 17 units HS SQ 04/01/18 21:00 04/02/18 21:09 (Duoneb Neb) 1 ampule Q4HR NEB PRN NEB 04/01/18 13:00 (Imdur) 60 mg DAILY PO 04/01/18 13:30 04/03/18 08:45 (Nizoral 2% Shampoo) 1 applic HS TOPICAL 04/01/18 21:00 (Synthroid) 200 mcg DAILY@0600 PO 04/01/18 13:00 04/03/18 05:06 (Zaroxolyn) 10 mg DAILY PO 04/01/18 13:30 04/03/18 08:47 (Lopressor) 25 mg BID PO 04/01/18 13:30 04/03/18 08:48 (Deltasone) 20 mg DAILY PO 04/01/18 13:00 04/03/18 08:48 (Lyrica) 75 mg BID PO 04/01/18 14:00 04/03/18 08:47 (Aldactone) 25 mg DAILY PO 04/01/18 13:00 04/03/18 08:45 (Flomax) 0.4 mg HS PO 04/01/18 21:00 04/02/18 21:10 (Brilinta) 90 mg BID PO 04/01/18 13:30 04/03/18 08:47 (Spiriva Inh) 18 mcg DAILY INH 04/01/18 13:00 04/03/18 08:48 Patient Own Medication PT OWN MED: KHEDEZLA (DESVENLAFAX... DAILY PO 04/01/18 13:30 Future Hold Patient Own Medication PT OWN MED: FLUOCINOL... BID TOPICAL 04/01/18 21:00 Future Hold (Theragran) 1 tab DAILY PO 04/01/18 13:15 04/03/18 08:44 (Protonix) 20 mg BID PO 04/01/18 13:00 04/03/18 08:47 Ceftriaxone Sodium 1000 mg/ Sodium Chloride 100 ml @ 200 mls/hr Q24H IV 04/01/18 14:00 04/02/18 15:06 (Aspirin Chew) 81 mg DAILY CHEW 04/02/18 09:00 04/03/18 08:48 Amiodarone HCl 450 mg/Sodium Chloride 250 ml @ 33 mls/hr Q7H35M IV 04/01/18 19:30 04/01/18 20:57 (NovoLOG SUPPLEMENTAL SCALE) 1 ACHS SLIDING SCALE SQ 04/02/18 12:00 04/03/18 12:09 Vital Signs / I&O Vital Signs Date Time Temp Pulse Resp B/P (MAP) Pulse Ox O2 Delivery O2 Flow Rate FiO2 04/03/18 12:00 61 04/03/18 08:03 97.7 62 17 143/65 (91) 96 04/03/18 08:00 63 04/03/18 08:00 Nasal Cannula 2.00 04/03/18 04:00 Nasal Cannula 2.00 04/03/18 04:00 57 04/03/18 04:00 97.0 61 18 115/59 (77) 100 04/03/18 00:00 97.3 55 18 137/63 (87) 95 04/03/18 00:00 Nasal Cannula 2.00 04/03/18 00:00 58 04/02/18 20:00 97.4 60 20 139/65 (89) 98 04/02/18 20:00 Nasal Cannula 2.00 04/02/18 20:00 63 04/02/18 16:06 97.5 66 18 129/63 (85) 97 04/02/18 16:00 65 I/O 04/02/18 04/02/18 04/02/18 04/03/18 04/03/18 04/03/18 07:00 15:00 23:00 07:00 15:00 23:00 Intake Total 440 ml 600 ml 750 ml Output Total 750 ml 400 ml Balance -310 ml 200 ml 750 ml Intake Oral 440 ml 600 ml 750 ml Output Urine Total 750 ml 400 ml # Voids 3 # Bowel Movements 1 1 1 Physical Exam GENERAL: NAD SKIN: Warm and dry. HEAD: Atraumatic. Normocephalic. EYES: Pupils equal and round. No scleral icterus. No injection or drainage. ENT: No nasal bleeding or discharge. Mucous membranes pink and moist. NECK: Trachea midline. No JVD. CARDIOVASCULAR: Regular rate and rhythm. RESPIRATORY: No accessory muscle use. Decreased breath sounds. GASTROINTESTINAL: Abdomen soft, non-tender, nondistended. Hepatic and splenic margins not palpable. MUSCULOSKELETAL: Extremities without clubbing, cyanosis, or edema. No obvious deformities. NEUROLOGICAL: Awake and alert. No obvious cranial nerve deficits. Motor grossly within normal limits. Five out of 5 muscle strength in the arms and legs. Normal speech. PSYCHIATRIC: Appropriate mood and affect; insight and judgment normal. Laboratory Laboratory Tests Test 04/03/18 04:50 White Blood Count 9.3 TH/MM3 Red Blood Count 3.35 MIL/MM3 Hemoglobin 10.7 GM/DL Hematocrit 30.7 % Mean Corpuscular Volume 91.7 FL Mean Corpuscular Hemoglobin 32.0 PG Mean Corpuscular Hemoglobin Concent 34.8 % Red Cell Distribution Width 14.3 % Platelet Count 219 TH/MM3 Mean Platelet Volume 8.5 FL Neutrophils (%) (Auto) 73.3 % Lymphocytes (%) (Auto) 15.5 % Monocytes (%) (Auto) 9.5 % Eosinophils (%) (Auto) 1.3 % Basophils (%) (Auto) 0.4 % Neutrophils # (Auto) 6.8 TH/MM3 Lymphocytes # (Auto) 1.4 TH/MM3 Monocytes # (Auto) 0.9 TH/MM3 Eosinophils # (Auto) 0.1 TH/MM3 Basophils # (Auto) 0.0 TH/MM3 CBC Comment DIFF FINAL Differential Comment Blood Urea Nitrogen 77 MG/DL Creatinine 3.05 MG/DL Random Glucose 179 MG/DL Calcium Level 9.1 MG/DL Magnesium Level 1.9 MG/DL Sodium Level 137 MEQ/L Potassium Level 3.0 MEQ/L Chloride Level 95 MEQ/L Carbon Dioxide Level 30.9 MEQ/L Anion Gap 11 MEQ/L Estimat Glomerular Filtration Rate 20 ML/MIN Assessment and Plan Problem List: (1) Elevated troponin ICD Codes: R74.8 - Abnormal levels of other serum enzymes (2) Atrial fibrillation ICD Codes: I48.91 - Unspecified atrial fibrillation (3) Coronary artery disease ICD Codes: I25.10 - Atherosclerotic heart disease of [place] coronary artery without angina pectoris (4) Hx of CABG ICD Codes: Z95.1 - Presence of aortocoronary bypass graft Assessment and Plan 1) Atypical chest pain Possibly due to AFib with RVR Different from when he needed a stent 2) Elevated trop Possible Type 2 Did have chest pain, albeit atypical, but discussed consideration of ischemic evaluation with either stress test or cath (although GABBI on CKD) Patient wants to be treated medically, doesn't feel that stress or cath will help him Discussed this further with him about why we would do the testing and how it would help, but wants to hold off Reviewed previous cath from 08/2017 [facility] to [facility], SVG to RCA patent, recommended medical management 3) AFib, currently sinus rhythm Most likely potentiated by his bowel movement/straining and not being on his medications Heart rates stable now 4) GABBI on CKD Overall high risk for kidney injury with contrast 5) On discharge will follow up with Konstantin Eaton DO Apr 03, 2018 12:50
[2018-04-03] MEDS: cefTRIAXone INJ 1,000 MG in SODIUM CHLORIDE 0.9% INJ 100 ML IV SCH (14:35)
[2018-04-03] MEDS ORDERED: MECL-62 PO (17:39)
[2018-04-03] MEDS: KETOCONAZOLE 2% SHAMPOO 120 ML BTL TOPICAL SCH (21:00)
[2018-04-03] MEDS: INSULIN DETEMIR 100 UNITS/ML VIAL SQ SCH (21:33)
[2018-04-03] MEDS: ATORVASTATIN 40 MG TAB PO SCH (21:35)
[2018-04-03] MEDS: TAMSULOSIN HCL 0.4 MG CAP PO SCH (21:35)
[2018-04-04] VITALS (10 sets, daily range): BP systolic 101–135; BP diastolic 58–78; PULSE 57–75; RESP 18–20; TEMP 97.4–98.2; O2SAT 97–99
[2018-04-04] MEDS: LEVOTHYROXINE SODIUM 200 MCG TAB PO SCH (05:14)
[2018-04-04] MEDS: INSULIN ASPART SUPPLEMENTAL SCALE SQ SCH ×4 (08:00→21:37)
[2018-04-04] MEDS: AMIODARONE INJ 450 MG in SODIUM CHLOR 0.9% (EXCEL) INJ 241 ML IV SCH ×3 (08:10→23:20)
[2018-04-04] MEDS: ISOSORBIDE MONONITRATE 60 MG CR TAB (IMDUR) PO SCH (08:54)
[2018-04-04] MEDS: PREGABALIN 75 MG CAP PO SCH ×2 (08:54→21:34)
[2018-04-04] MEDS: predniSONE 20 MG TAB PO SCH (08:55)
[2018-04-04] MEDS: METOLAZONE 5 MG TAB PO SCH (08:56)
[2018-04-04] MEDS: DILTIAZEM HCL 60 MG TAB PO SCH ×4 (08:57→21:34)
[2018-04-04] MEDS: PANTOPRAZOLE SOD 20 MG DELAYED RELEASE TAB PO SCH ×2 (08:57→21:34)
[2018-04-04] MEDS: TICAGRELOR 90 MG TAB PO SCH ×2 (08:57→21:35)
[2018-04-04] MEDS: SPIRONOLACTONE 25 MG TAB PO SCH (08:57)
[2018-04-04] MEDS: ASPIRIN 81 MG CHEW TAB CHEW SCH (08:57)
[2018-04-04] MEDS: MULTIVITAMIN TAB PO SCH (08:58)
[2018-04-04] MEDS: BUMETANIDE 1 MG TAB PO SCH (08:58)
[2018-04-04] MEDS: METOPROLOL TARTRATE 25 MG TAB PO SCH ×2 (08:59→21:34)
[2018-04-04] MEDS: SODIUM CHLORIDE 0.9% FLUSH 10 ML FLUSH IV FLUSH SCH ×2 (09:00→21:36)
[2018-04-04] MEDS: CALCITRIOL 0.25 MCG CAP PO SCH (09:00)
[2018-04-04] MEDS: TIOTROPIUM BROMIDE 18 MCG INH INH SCH (09:00)
[2018-04-04] MEDS: INSULIN ASPART 1,000 UNITS/10 ML VIAL SQ SCH ×4 (09:01→21:37)
[2018-04-04] MEDS: cefTRIAXone INJ 1,000 MG in SODIUM CHLORIDE 0.9% INJ 100 ML IV SCH (13:06)
[2018-04-04] MEDS ORDERED: POTASSIUM CHLORIDE 10 MEQ CONTROLLED RELEASE TAB PO ONE (13:45)
--- NOTE | 2018-04-04 16:37 | PD.CARD.PN ---
Subjective Subjective Remarks No events overnight No longer feeling dizzy Only complaint is a cough and back pain, chronic issues he's had for years Objective Medications Current Medications Medications (Trade) Dose Ordered Sig/Domingo Route Start Time Stop Time Status Last Admin (NS Flush) 2 ml UNSCH PRN IV FLUSH 04/01/18 11:45 (NS Flush) 2 ml BID IV FLUSH 04/01/18 21:00 04/04/18 09:00 (D50w (Vial) Inj) 50 ml UNSCH PRN IV PUSH 04/01/18 11:45 (Glucagon Inj) 1 mg UNSCH PRN OTHER 04/01/18 11:45 (Tylenol) 650 mg Q6H PRN PO 04/01/18 11:45 04/03/18 18:29 (Lipitor) 40 mg HS PO 04/01/18 21:00 04/03/18 21:35 (Bumetanide) 4 mg DAILY PO 04/01/18 13:30 04/04/18 08:58 (Rocaltrol) 0.5 mcg DAILY PO 04/01/18 13:30 04/04/18 09:00 (Tums Chew) 500 mg DAILY PRN CHEW 04/01/18 11:45 (Cardizem) 60 mg QID PO 04/01/18 13:00 04/04/18 12:47 (NovoLOG INJ) 10 units ACHS SQ 04/01/18 13:15 04/04/18 12:54 (Levemir Inj) 17 units HS SQ 04/01/18 21:00 04/03/18 21:33 (Duoneb Neb) 1 ampule Q4HR NEB PRN NEB 04/01/18 13:00 (Imdur) 60 mg DAILY PO 04/01/18 13:30 04/04/18 08:54 (Nizoral 2% Shampoo) 1 applic HS TOPICAL 04/01/18 21:00 (Synthroid) 200 mcg DAILY@0600 PO 04/01/18 13:00 04/04/18 05:14 (Zaroxolyn) 10 mg DAILY PO 04/01/18 13:30 04/04/18 08:56 (Lopressor) 25 mg BID PO 04/01/18 13:30 04/04/18 08:59 (Deltasone) 20 mg DAILY PO 04/01/18 13:00 04/04/18 08:55 (Lyrica) 75 mg BID PO 04/01/18 14:00 04/04/18 08:54 (Aldactone) 25 mg DAILY PO 04/01/18 13:00 04/04/18 08:57 (Flomax) 0.4 mg HS PO 04/01/18 21:00 04/03/18 21:35 (Brilinta) 90 mg BID PO 04/01/18 13:30 04/04/18 08:57 (Spiriva Inh) 18 mcg DAILY INH 04/01/18 13:00 04/04/18 09:00 Patient Own Medication PT OWN MED: KHEDEZLA (DESVENLAFAX... DAILY PO 04/01/18 13:30 Future Hold Patient Own Medication PT OWN MED: FLUOCINOL... BID TOPICAL 04/01/18 21:00 Future Hold (Theragran) 1 tab DAILY PO 04/01/18 13:15 04/04/18 08:58 (Protonix) 20 mg BID PO 04/01/18 13:00 04/04/18 08:57 Ceftriaxone Sodium 1000 mg/ Sodium Chloride 100 ml @ 200 mls/hr Q24H IV 04/01/18 14:00 04/04/18 13:06 (Aspirin Chew) 81 mg DAILY CHEW 04/02/18 09:00 04/04/18 08:57 Amiodarone HCl 450 mg/Sodium Chloride 250 ml @ 33 mls/hr Q7H35M IV 04/01/18 19:30 04/01/18 20:57 (NovoLOG SUPPLEMENTAL SCALE) 1 ACHS SLIDING SCALE SQ 04/02/18 12:00 04/04/18 12:54 Vital Signs / I&O Vital Signs Date Time Temp Pulse Resp B/P (MAP) Pulse Ox O2 Delivery O2 Flow Rate FiO2 04/04/18 12:02 98.2 63 18 132/64 (86) 97 04/04/18 08:02 97.6 57 18 135/67 (89) 98 04/04/18 04:00 Nasal Cannula 2.00 04/04/18 04:00 97.4 60 18 124/58 (80) 99 04/04/18 04:00 63 04/04/18 00:00 97.6 67 20 101/78 (86) 98 04/04/18 00:00 75 04/03/18 21:00 Nasal Cannula 2.00 04/03/18 20:00 64 04/03/18 20:00 97.6 69 20 153/69 (97) 98 I/O 04/03/18 04/03/18 04/03/18 04/04/18 04/04/18 04/04/18 07:00 15:00 23:00 07:00 15:00 23:00 Intake Total 750 ml 700 ml 240 ml Output Total 300 ml Balance 750 ml 700 ml -60 ml Intake Oral 750 ml 600 ml 240 ml IV Total 100 ml Output Urine Total 300 ml # Voids 3 4 # Bowel Movements 1 1 0 Physical Exam GENERAL: NAD SKIN: Warm and dry. HEAD: Atraumatic. Normocephalic. EYES: Pupils equal and round. No scleral icterus. No injection or drainage. ENT: No nasal bleeding or discharge. Mucous membranes pink and moist. NECK: Trachea midline. No JVD. CARDIOVASCULAR: Regular rate and rhythm. RESPIRATORY: No accessory muscle use. Decreased breath sounds. GASTROINTESTINAL: Abdomen soft, non-tender, nondistended. Hepatic and splenic margins not palpable. MUSCULOSKELETAL: Extremities without clubbing, cyanosis, or edema. No obvious deformities. NEUROLOGICAL: Awake and alert. No obvious cranial nerve deficits. Motor grossly within normal limits. Five out of 5 muscle strength in the arms and legs. Normal speech. PSYCHIATRIC: Appropriate mood and affect; insight and judgment normal. Assessment and Plan Problem List: (1) Elevated troponin ICD Codes: R74.8 - Abnormal levels of other serum enzymes (2) Atrial fibrillation ICD Codes: I48.91 - Unspecified atrial fibrillation (3) Coronary artery disease ICD Codes: I25.10 - Atherosclerotic heart disease of [place] coronary artery without angina pectoris (4) Hx of CABG ICD Codes: Z95.1 - Presence of aortocoronary bypass graft Assessment and Plan 1) Atypical chest pain Possibly due to AFib with RVR Different from when he needed a stent in the past 2) Elevated trop Possible Type 2 Did have chest pain, albeit atypical, but discussed consideration of ischemic evaluation with either stress test or cath (although GABBI on CKD) Patient wants to be treated medically, doesn't feel that stress or cath will help him Discussed this further with him about why we would do the testing and how it would help, but wants to hold off Reviewed previous cath from 08/2017 [facility] to [facility], SVG to RCA patent, recommended medical management 3) AFib, currently sinus rhythm Most likely potentiated by his bowel movement/straining and not being on his medications Heart rates stable now 4) GABBI on CKD Overall high risk for kidney injury with contrast 5) On discharge will follow up with Dr. Jenkins 6) No further cardiovascular workup Konstantin Del Rosario DO Apr 04, 2018 16:37
--- NOTE | 2018-04-04 16:39 | HHI.PR ---
Subjective Remarks The patient is in the chair. Appears to not acute distress at this time lightheadedness and vertigo resolved with meclizine. Has some chronic pain fairly controlled by medications. Says he does not have a home. Case management is following for discharge plan. Is cleared by cardiology for discharge. Objective Vitals Vital Signs Date Time Temp Pulse Resp B/P (MAP) Pulse Ox O2 Delivery O2 Flow Rate FiO2 04/04/18 12:02 98.2 63 18 132/64 (86) 97 04/04/18 08:02 97.6 57 18 135/67 (89) 98 04/04/18 04:00 Nasal Cannula 2.00 04/04/18 04:00 97.4 60 18 124/58 (80) 99 04/04/18 04:00 63 04/04/18 00:00 97.6 67 20 101/78 (86) 98 04/04/18 00:00 75 04/03/18 21:00 Nasal Cannula 2.00 04/03/18 20:00 64 04/03/18 20:00 97.6 69 20 153/69 (97) 98 I/O 04/03/18 04/03/18 04/03/18 04/04/18 04/04/18 04/04/18 07:00 15:00 23:00 07:00 15:00 23:00 Intake Total 750 ml 700 ml 240 ml Output Total 300 ml Balance 750 ml 700 ml -60 ml Intake Oral 750 ml 600 ml 240 ml IV Total 100 ml Output Urine Total 300 ml # Voids 3 4 # Bowel Movements 1 1 0 Result Diagram: 04/03/18 0450 04/03/18 0450 Imaging Last Impressions Chest X-Ray 04/01/18 0000 Signed Impressions: CONCLUSION: Negative examination. Objective Remarks GENERAL: Not in acute distress, well-nourished. Heart rate in the 110s-120s, atrial fibrillation on telemetry. CARDIOVASCULAR: Regular rhythm tachycardic, no murmurs appreciated. RESPIRATORY: Clear to auscultation with normal respiratory effort. Decreased breath sounds. GASTROINTESTINAL: Abdomen soft, normal bowel sounds, non-tender, nondistended. Obese. MUSCULOSKELETAL: Extremities without clubbing, cyanosis, 1+ edema. INTEGUMENTARY: Warm and dry, no rash of generalized distribution. NEUROLOGICAL: Awake, alert, oriented 3. No obvious cranial nerve deficits. Moves all 4 extremities, muscle strength testing 5 over 5. Motor and sensory grossly within normal limits. No focal neurologic deficits. No suicidal ideations Procedures none A/P Assessment and Plan This is a 72-year-old male with history of atrial fibrillation, COPD, CHF, coronary artery disease status post [place], status post CABG, status post PCI, initially admitted Dickson acted, Dickson act elected, however while getting ready for discharge, started complaining of chest pain. Chest pain, rule out acute coronary syndrome, could also be secondary to atrial fibrillation with RVR-patient is a strong cardiac history of atrial fibrillation , coronary artery disease with prior CABG and coronary stenting. I believe, the patient went into RVR and constipation symptoms. Patient did not receive his daily medications for more than 24 hours. Currently on amiodarone drip. EKG reviewed, atrial fibrillation with no ischemic changes. Check troponin and EKG serially. Consult cardiology. 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 Jenkins. Stop amiodarone drip once atrial fibrillation is rate controlled with metoprolol and Cardizem per home dose. Atrial fibrillation, RVR-on amiodarone drip, restart metoprolol, Cardizem per home dose. Restart Brilinta. Chest x-ray reviewed, unremarkable. Coronary artery disease, status post CABG in the past, status post PCI; chronic congestive heart failure-stable, workup as above. Restart spironolactone, metolazone, metoprolol, Bumex, Imdur, statins Benign positional vertigo. Start meclizine. Improved with meclizine COPD-not in exacerbation, restart Spiriva, duo nebs as needed, on prednisone 20 mg daily, monitor, consider tapering Diabetes mellitus-restart long-acting insulin with prandial and sliding scale Chronic kidney disease-creatinine/GFR at baseline, monitor. Recheck BMP tomorrow. BPH, UTI-restart tamsulosin, allegedly on antibiotics prior to coming into the hospital, urine culture checked, negative. Patient only had 2 days worth of antibiotics, urinalysis was positive for leukocyte esterase and WBC, also with leukocytosis and still has urinary symptoms, will restart antibiotics with ceftriaxone. Asymptomatic at this time. Hypothyroidism-continue Synthroid DVT prophylaxis: On Brilinta Discussed with patient and nurse. Discharge to assisted facility when arrangements done. Patient is homeless. Case management is following for discharge planning. Marcella Aden MD Apr 04, 2018 16:39
[2018-04-04] MEDS: KETOCONAZOLE 2% SHAMPOO 120 ML BTL TOPICAL SCH (21:00)
[2018-04-04] MEDS: ATORVASTATIN 40 MG TAB PO SCH (21:34)
[2018-04-04] MEDS: TAMSULOSIN HCL 0.4 MG CAP PO SCH (21:35)
[2018-04-04] MEDS: INSULIN DETEMIR 100 UNITS/ML VIAL SQ SCH (21:37)
[2018-04-05] VITALS (11 sets, daily range): BP systolic 118–152; BP diastolic 58–69; PULSE 56–83; RESP 17–20; TEMP 97.1–98.9; O2SAT 96–100
[2018-04-05] MEDS: AMIODARONE INJ 450 MG in SODIUM CHLOR 0.9% (EXCEL) INJ 241 ML IV SCH ×2 (04:53→22:05)
[2018-04-05] MEDS: LEVOTHYROXINE SODIUM 200 MCG TAB PO SCH (05:13)
[2018-04-05 05:48] LABS: AUTOMATED NEUTROPHIL # 7.8 TH/MM3 (1.8-7.7); BASOPHIL % 0.2 % (0.0-2.0); EOSINOPHIL # 0.2 TH/MM3 (0-0.4); EOSINOPHIL % 1.8 % (0.0-4.0); HEMATOCRIT 31.8 % (39.0-51.0); HEMOGLOBIN 11.1 GM/DL (13.0-17.0); LYMPH % 13.2 % (9.0-44.0); LYMPHOCYTE # 1.4 TH/MM3 (1.0-4.8); MEAN CELL VOLUME 91.8 FL (80.0-100.0); MEAN CORPUSCULAR HEMOGLOBIN 31.9 PG (27.0-34.0); MEAN CORPUSCULAR HGB CONC 34.8 % (32.0-36.0); MEAN PLATELET VOLUME 8.4 FL (7.0-11.0); MONO % 10.5 % (0.0-8.0); MONOCYTE # 1.1 TH/MM3 (0-0.9); NEUT % 74.3 % (16.0-70.0); PLATELET COUNT 214 TH/MM3 (150-450); RED BLOOD COUNT 3.47 MIL/MM3 (4.50-5.90); RED CELL DISTRIBUTION WIDTH 14.5 % (11.6-17.2); WHITE BLOOD COUNT 10.5 TH/MM3 (4.0-11.0)
[2018-04-05 06:14] LABS: BICARBONATE 28.1 MEQ/L (21.0-32.0); CALCIUM 8.6 MG/DL (8.5-10.1); CREATININE 3.29 MG/DL (0.60-1.30); MAGNESIUM 1.7 MG/DL (1.5-2.5)
[2018-04-05] MEDS: INSULIN ASPART 1,000 UNITS/10 ML VIAL SQ SCH ×4 (08:00→22:03)
[2018-04-05] MEDS: INSULIN ASPART SUPPLEMENTAL SCALE SQ SCH ×3 (08:00→21:00)
[2018-04-05] MEDS: METOPROLOL TARTRATE 25 MG TAB PO SCH ×2 (09:10→22:00)
[2018-04-05] MEDS: METOLAZONE 5 MG TAB PO SCH (09:10)
[2018-04-05] MEDS: DILTIAZEM HCL 60 MG TAB PO SCH ×4 (09:10→22:02)
[2018-04-05] MEDS: predniSONE 20 MG TAB PO SCH (09:10)
[2018-04-05] MEDS: TICAGRELOR 90 MG TAB PO SCH ×2 (09:10→22:01)
[2018-04-05] MEDS: SPIRONOLACTONE 25 MG TAB PO SCH (09:10)
[2018-04-05] MEDS: CALCITRIOL 0.25 MCG CAP PO SCH (09:10)
[2018-04-05] MEDS: ISOSORBIDE MONONITRATE 60 MG CR TAB (IMDUR) PO SCH (09:10)
[2018-04-05] MEDS: PANTOPRAZOLE SOD 20 MG DELAYED RELEASE TAB PO SCH ×2 (09:11→22:00)
[2018-04-05] MEDS: MULTIVITAMIN TAB PO SCH (09:11)
[2018-04-05] MEDS: BUMETANIDE 1 MG TAB PO SCH (09:11)
[2018-04-05] MEDS: ASPIRIN 81 MG CHEW TAB CHEW SCH (09:11)
[2018-04-05] MEDS: PREGABALIN 75 MG CAP PO SCH ×2 (09:11→22:00)
[2018-04-05] MEDS: TIOTROPIUM BROMIDE 18 MCG INH INH SCH (09:13)
[2018-04-05] MEDS: SODIUM CHLORIDE 0.9% FLUSH 10 ML FLUSH IV FLUSH SCH ×2 (09:19→21:00)
[2018-04-05] MEDS: cefTRIAXone INJ 1,000 MG in SODIUM CHLORIDE 0.9% INJ 100 ML IV SCH (12:50)
--- NOTE | 2018-04-05 13:11 | HHI.PR ---
Subjective Remarks The patient is in the chair says he does not want to stay in the hospital anymore but he does not want to go to the care home facility in [place]. Says he wants to go stay in the hotel. He does not have any chest pain no shortness of breath. He is not lightheaded no more dizziness taking meclizine.. Objective Vitals Vital Signs Date Time Temp Pulse Resp B/P (MAP) Pulse Ox O2 Delivery O2 Flow Rate FiO2 04/05/18 12:20 97.6 58 17 118/58 (78) 97 04/05/18 08:03 97.3 61 18 125/69 (87) 100 04/05/18 05:07 97.7 56 18 139/62 (87) 96 04/05/18 03:53 58 04/05/18 00:00 97.6 57 18 142/63 (89) 97 04/04/18 23:55 57 04/04/18 21:11 97.6 68 18 113/59 (77) 98 04/04/18 20:45 Room Air 04/04/18 19:57 65 04/04/18 16:02 97.8 65 18 134/66 (88) 98 I/O 04/04/18 04/04/18 04/04/18 04/05/18 04/05/18 04/05/18 07:00 15:00 23:00 07:00 15:00 23:00 Intake Total 240 ml 480 ml 480 ml Output Total 300 ml 380 ml Balance -60 ml 100 ml 480 ml Intake Oral 240 ml 480 ml 480 ml Output Urine Total 300 ml 380 ml # Voids 2 # Bowel Movements 0 1 0 Result Diagram: 04/05/18 0512 04/05/18 0512 Imaging Last Impressions Chest X-Ray 04/01/18 0000 Signed Impressions: CONCLUSION: Negative examination. Objective Remarks GENERAL: Not in acute distress, well-nourished. Heart rate in the 110s-120s, atrial fibrillation on telemetry. CARDIOVASCULAR: Regular rhythm tachycardic, no murmurs appreciated. RESPIRATORY: Clear to auscultation with normal respiratory effort. Decreased breath sounds. GASTROINTESTINAL: Abdomen soft, normal bowel sounds, non-tender, nondistended. Obese. MUSCULOSKELETAL: Extremities without clubbing, cyanosis, 1+ edema. INTEGUMENTARY: Warm and dry, no rash of generalized distribution. NEUROLOGICAL: Awake, alert, oriented 3. No obvious cranial nerve deficits. Moves all 4 extremities, muscle strength testing 5 over 5. Motor and sensory grossly within normal limits. No focal neurologic deficits. No suicidal ideations Procedures none A/P Assessment and Plan This is a 72-year-old male with history of atrial fibrillation, COPD, CHF, coronary artery disease status post [place], status post CABG, status post PCI, initially admitted Dickson acted, Dickson act elected, however while getting ready for discharge, started complaining of chest pain. Chest pain, rule out acute coronary syndrome, could also be secondary to atrial fibrillation with RVR-patient is a strong cardiac history of atrial fibrillation , coronary artery disease with prior CABG and coronary stenting. I believe, the patient went into RVR and constipation symptoms. Patient did not receive his daily medications for more than 24 hours. Currently on amiodarone drip. EKG reviewed, atrial fibrillation with no ischemic changes. Check troponin and EKG serially. Consult cardiology. 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 Jenkins. Stop amiodarone drip once atrial fibrillation is rate controlled with metoprolol and Cardizem per home dose. Atrial fibrillation, RVR-on amiodarone drip, restart metoprolol, Cardizem per home dose. Restart Brilinta. Chest x-ray reviewed, unremarkable. Coronary artery disease, status post CABG in the past, status post PCI; chronic congestive heart failure-stable, workup as above. Restart spironolactone, metolazone, metoprolol, Bumex, Imdur, statins Benign positional vertigo. Start meclizine. Improved with meclizine COPD-not in exacerbation, restart Spiriva, duo nebs as needed, on prednisone 20 mg daily, monitor, consider tapering Diabetes mellitus-restart long-acting insulin with prandial and sliding scale Chronic kidney disease-creatinine/GFR at baseline, monitor. Recheck BMP tomorrow. BPH, UTI-restart tamsulosin, allegedly on antibiotics prior to coming into the hospital, urine culture checked, negative. Patient only had 2 days worth of antibiotics, urinalysis was positive for leukocyte esterase and WBC, also with leukocytosis and still has urinary symptoms, will restart antibiotics with ceftriaxone. Asymptomatic at this time. Hypothyroidism-continue Synthroid DVT prophylaxis: On Brilinta Discussed with patient and nurse. Discharge to care home facility when arrangements done. Patient is homeless. Case management is following for discharge planning. Refusing SNF in [place]. Marcella Lauren MD Apr 05, 2018 13:11
[2018-04-05] MEDS: KETOCONAZOLE 2% SHAMPOO 120 ML BTL TOPICAL SCH (21:00)
[2018-04-05] MEDS: ATORVASTATIN 40 MG TAB PO SCH (22:01)
[2018-04-05] MEDS: TAMSULOSIN HCL 0.4 MG CAP PO SCH (22:01)
[2018-04-05] MEDS: INSULIN DETEMIR 100 UNITS/ML VIAL SQ SCH (22:02)
[2018-04-06] MEDS: AMIODARONE INJ 450 MG in SODIUM CHLOR 0.9% (EXCEL) INJ 241 ML IV SCH (03:48)
[2018-04-06 04:00] VITALS: PULSE 58
[2018-04-06 04:03] VITALS: BP 142/63; PULSE 72; RESP 16; TEMP 97.3; O2SAT 99
[2018-04-06] MEDS: LEVOTHYROXINE SODIUM 200 MCG TAB PO SCH (05:17)
[2018-04-06 08:00] VITALS: BP 157/70; PULSE 67; RESP 18; TEMP 97.6; O2SAT 98
--- NOTE | 2018-04-06 08:23 | HHI.PR ---
Subjective Remarks Feels much better. He is without any problems. Says he wants to go home. Says his friend is going to come pick him up and also he has family this area. He is does not want to go to [facility]. No fever chills no nausea or vomiting. Objective Vitals Vital Signs Date Time Temp Pulse Resp B/P (MAP) Pulse Ox O2 Delivery O2 Flow Rate FiO2 04/06/18 07:40 Room Air 04/06/18 04:03 97.3 72 16 142/63 (89) 99 04/06/18 04:00 58 04/05/18 23:34 70 04/05/18 22:41 20 04/05/18 20:32 74 04/05/18 20:10 97.1 73 18 152/69 (96) 99 04/05/18 20:10 97.1 73 18 152/69 (96) 99 04/05/18 20:00 Room Air 04/05/18 19:37 98.9 83 17 135/64 (87) 99 04/05/18 12:20 97.6 58 17 118/58 (78) 97 I/O 04/05/18 04/05/18 04/05/18 04/06/18 04/06/18 04/06/18 07:00 15:00 23:00 07:00 15:00 23:00 Intake Total 480 ml 600 ml 360 ml Balance 480 ml 600 ml 360 ml Intake Oral 480 ml 600 ml 360 ml # Voids 2 3 3 # Bowel Movements 0 0 0 Result Diagram: 04/05/18 0512 04/05/18 2345 Imaging Last Impressions Chest X-Ray 04/01/18 0000 Signed Impressions: CONCLUSION: Negative examination. Objective Remarks GENERAL: Not in acute distress, well-nourished. Heart rate in the 110s-120s, atrial fibrillation on telemetry. CARDIOVASCULAR: Regular rhythm tachycardic, no murmurs appreciated. RESPIRATORY: Clear to auscultation with normal respiratory effort. Decreased breath sounds. GASTROINTESTINAL: Abdomen soft, normal bowel sounds, non-tender, nondistended. Obese. MUSCULOSKELETAL: Extremities without clubbing, cyanosis, 1+ edema. INTEGUMENTARY: Warm and dry, no rash of generalized distribution. NEUROLOGICAL: Awake, alert, oriented 3. No obvious cranial nerve deficits. Moves all 4 extremities, muscle strength testing 5 over 5. Motor and sensory grossly within normal limits. No focal neurologic deficits. No suicidal ideations Procedures none A/P Assessment and Plan This is a 72-year-old male with history of atrial fibrillation, COPD, CHF, coronary artery disease status post [place], status post CABG, status post PCI, initially admitted Dickson acted, Dickson act elected, however while getting ready for discharge, started complaining of chest pain. Chest pain, rule out acute coronary syndrome, could also be secondary to atrial fibrillation with RVR-patient is a strong cardiac history of atrial fibrillation , coronary artery disease with prior CABG and coronary stenting. I believe, the patient went into RVR and constipation symptoms. Patient did not receive his daily medications for more than 24 hours. Currently on amiodarone drip. EKG reviewed, atrial fibrillation with no ischemic changes. Check troponin and EKG serially. Consult cardiology. 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 Jenkins. Stop amiodarone drip once atrial fibrillation is rate controlled with metoprolol and Cardizem per home dose. Atrial fibrillation, RVR-on amiodarone drip, restart metoprolol, Cardizem per home dose. Restart Brilinta. Chest x-ray reviewed, unremarkable. Coronary artery disease, status post CABG in the past, status post PCI; chronic congestive heart failure-stable, workup as above. Restart spironolactone, metolazone, metoprolol, Bumex, Imdur, statins Benign positional vertigo. Start meclizine. Improved with meclizine COPD-not in exacerbation, restart Spiriva, duo nebs as needed, on prednisone 20 mg daily, monitor, consider tapering Diabetes mellitus-restart long-acting insulin with prandial and sliding scale Chronic kidney disease-creatinine/GFR at baseline, monitor. Recheck BMP tomorrow. BPH, UTI-restart tamsulosin, allegedly on antibiotics prior to coming into the hospital, urine culture checked, negative. Patient only had 2 days worth of antibiotics, urinalysis was positive for leukocyte esterase and WBC, also with leukocytosis and still has urinary symptoms, will restart antibiotics with ceftriaxone. Asymptomatic at this time. Hypothyroidism-continue Synthroid DVT prophylaxis: On Brilinta Discussed with patient and nurse. Discharge to retirement facility when arrangements done. Patient is homeless. Case management is following for discharge planning. Refusing SNF in [place]. CM ff. Patient says he does not want to go to any rehab. He is ambulating in the room and in the hallways without any problems. Says family and friends are in this area. He wants to be discharge home he will go to his friend and if needed he will stay a motel. Says his friend is coming out. Patient is discharged home in stable condition to follow-up with PCP and consultants as outpatient. Marcella Aden MD Apr 06, 2018 08:23
[2018-04-06] MEDS: INSULIN ASPART SUPPLEMENTAL SCALE SQ SCH (09:09)
[2018-04-06] MEDS: INSULIN ASPART 1,000 UNITS/10 ML VIAL SQ SCH (09:09)
[2018-04-06] MEDS: PREGABALIN 75 MG CAP PO SCH (09:10)
[2018-04-06] MEDS: MULTIVITAMIN TAB PO SCH (09:10)
[2018-04-06] MEDS: ISOSORBIDE MONONITRATE 60 MG CR TAB (IMDUR) PO SCH (09:10)
[2018-04-06] MEDS: PANTOPRAZOLE SOD 20 MG DELAYED RELEASE TAB PO SCH (09:10)
[2018-04-06] MEDS: ASPIRIN 81 MG CHEW TAB CHEW SCH (09:10)
[2018-04-06] MEDS: METOLAZONE 5 MG TAB PO SCH (09:11)
[2018-04-06] MEDS: predniSONE 20 MG TAB PO SCH (09:11)
[2018-04-06] MEDS: DILTIAZEM HCL 60 MG TAB PO SCH (09:11)
[2018-04-06] MEDS: METOPROLOL TARTRATE 25 MG TAB PO SCH (09:11)
[2018-04-06] MEDS: BUMETANIDE 1 MG TAB PO SCH (09:12)
[2018-04-06] MEDS: CALCITRIOL 0.25 MCG CAP PO SCH (09:12)
[2018-04-06] MEDS: SODIUM CHLORIDE 0.9% FLUSH 10 ML FLUSH IV FLUSH SCH (09:13)
[2018-04-06] MEDS: SPIRONOLACTONE 25 MG TAB PO SCH (09:17)
[2018-04-06] MEDS: TICAGRELOR 90 MG TAB PO SCH (09:17)
[2018-04-06] MEDS: TIOTROPIUM BROMIDE 18 MCG INH INH SCH (09:19)
[2018-04-06 12:00] VITALS: BP 147/67; PULSE 61; RESP 18; TEMP 97.6; O2SAT 99
[2018-04-06 12:13] VITALS: PULSE 61
== END 2018-04-06 12:50 | disposition home or self-care (01) | DRG 308 ==
LOC: NEDAMB 20:23 → NEDA 04-01 11:03 → OBSVTOIN 04-01 11:51 → N04B 04-01 13:24
PROVIDERS: ADMIT Hospitalist; ATTEND Hospitalist
DX: I48.91 Unspecified atrial fibrillation (principal); G93.41 Metabolic encephalopathy; N17.9 Acute kidney failure, unspecified; N18.4 Chronic kidney disease, stage 4 (severe); I13.0 Hypertensive heart and chronic kidney disease with heart failure and stage 1 through stage 4 chronic kidney disease, or unspecified chronic kidney disease; N39.0 Urinary tract infection, site not specified; I82.612 Acute embolism and thrombosis of superficial veins of left upper extremity; I50.9 Heart failure, unspecified; E11.22 Type 2 diabetes mellitus with diabetic chronic kidney disease; F03.90 Unspecified dementia, unspecified severity, without behavioral disturbance, psychotic disturbance, mood disturbance, and anxiety; J44.9 Chronic obstructive pulmonary disease, unspecified; I25.10 Atherosclerotic heart disease of native coronary artery without angina pectoris; I25.2 Old myocardial infarction; E03.9 Hypothyroidism, unspecified; F41.9 Anxiety disorder, unspecified; N40.0 Benign prostatic hyperplasia without lower urinary tract symptoms; G47.30 Sleep apnea, unspecified; H81.10 Benign paroxysmal vertigo, unspecified ear; Z88.1 Allergy status to other antibiotic agents; Z95.1 Presence of aortocoronary bypass graft; Z86.73 Personal history of transient ischemic attack (TIA), and cerebral infarction without residual deficits; Z88.8 Allergy status to other drugs, medicaments and biological substances; Z95.5 Presence of coronary angioplasty implant and graft; Z91.19 Patient's noncompliance with other medical treatment and regimen
CPT/HCPCS: 71045; 76937; 80048; 80053; 80307; 81001; 82550; 82947; 82948; 83735; 84484; 85007; 85025; 85027; 85610; 85730; 87086; 93005; 99285; J0282; J0696; J1815; J7050; J7060; J7512

== ENCOUNTER 2018-05-30 23:02 | Inpatient (IN) ==
--- NOTE | 2018-05-30 23:24 | ED ---
HPI General Chief Complaint: Altered Mental Status Stated Complaint: AMS Time Seen by Provider: 05/30/18 23:18 Source: EMS and old records reviewed Mode of arrival: EMS Limitations: altered mental status History of Present Illness HPI narrative: Apparently per narrative on the jail notes patient was found wedged between his bed and the wall not following instructions, 911 was called, EMS found the patient's blood sugar to be in the 40s, D10 was given although the Accu-Chek increased to 138 the patient's continued to be sleepy drowsy and difficult to arouse MD complaint: altered mental status and confusion Onset (ago): unknown Severity: severe Consistency of symptoms: constant Context: unknown Treatments prior to arrival: glucose and IV fluid Related Data Home Medications Medication Instructions Recorded Confirmed apixaban 2.5 mg PO BID 05/10/18 05/31/18 aspirin 81 mg PO DAILY 05/10/18 05/31/18 atorvastatin 40 mg PO DAILY 05/10/18 05/31/18 bumetanide 2 mg PO DAILY 05/10/18 05/31/18 ferrous sulfate 325 mg PO DAILY 05/10/18 05/31/18 furosemide 40 mg PO BID 05/10/18 05/31/18 insulin aspart U-100 [Novolog 10 unit SUB-Q TIDAC 05/10/18 05/31/18 U-100 Insulin aspart] insulin glargine 25 unit SUB-Q Q12H PRN 05/10/18 05/31/18 ipratropium-albuterol 3 ml INHALATION Q4H PRN 05/10/18 05/31/18 levothyroxine 200 mcg PO DAILY 05/10/18 05/31/18 lisinopril 40 mg PO DAILY 05/10/18 05/31/18 meclizine 25 mg PO DAILY PRN 05/10/18 05/31/18 metoprolol tartrate 100 mg PO BID 05/10/18 05/31/18 omeprazole 20 mg PO DAILY 05/10/18 05/31/18 pregabalin [Lyrica] 75 mg PO BID 05/10/18 05/31/18 ranolazine 500 mg PO Q12H PRN 05/10/18 05/31/18 tamsulosin 0.4 mg PO DAILY 05/10/18 05/31/18 Saccharomyces boulardii 250 mg PO TID 05/31/18 05/31/18 alprazolam 0.25 mg PO TID 05/31/18 05/31/18 clonidine HCl 0.1 mg PO Q8HR PRN 05/31/18 05/31/18 clotrimazole 1 applic TOPICAL BID 05/31/18 05/31/18 diltiazem HCl 120 mg PO DAILY 05/31/18 05/31/18 doxycycline hyclate 100 mg PO BID 05/31/18 05/31/18 ibuprofen 800 mg PO Q6H PRN 05/31/18 05/31/18 pantoprazole 40 mg PO BID 05/31/18 05/31/18 sucralfate 1 g PO TIDAC 05/31/18 05/31/18 tiotropium bromide [Spiriva with 1 cap INHALATION DAILY 05/31/18 05/31/18 HandiHaler] Allergies Allergy/AdvReac Type Severity Reaction Status Date / Time ciprofloxacin Allergy Severe Itching Verified 05/30/18 23:15 diatrizoate meglumine Allergy Severe Itching Verified 05/30/18 23:15 gadobenic acid Allergy Severe Itching Verified 05/30/18 23:15 gadodiamide Allergy Severe Itching Verified 05/30/18 23:15 gadoteridol Allergy Severe Itching Verified 05/30/18 23:15 iodixanol Allergy Severe Itching Verified 05/30/18 23:15 iohexol Allergy Severe Itching Verified 05/30/18 23:15 levofloxacin Allergy Severe Itching Verified 05/30/18 23:15 celecoxib [From Celebrex] Allergy Unknown Itching Verified 05/30/18 23:15 ezetimibe [From Zetia] Allergy Unknown Itching Verified 05/30/18 23:15 prochlorperazine Allergy Unknown Itching Verified 05/10/18 20:51 [From Compazine] red dye Allergy Unknown Itching Verified 05/10/18 20:51 Review of Systems ROS Unobtainable ROS Unobtainable: unobtainable due to mental status PMFSH History History Provided By: Medical Record and Orthotics Technician / EMT Medical History Medical History BPH (benign prostatic hyperplasia) (Acute) Diabetes mellitus (Acute) Sleep apnea (Acute) PTSD (post-traumatic stress disorder) (Acute) COPD (chronic obstructive pulmonary disease) (Acute) Acute on chronic systolic (congestive) heart failure (Acute) Atrial fibrillation (Acute) Atherosclerotic cardiovascular disease (Acute) NSTEMI (non-ST elevated myocardial infarction) (Acute) Hypertension (Acute) Hypothyroid (Acute) Surgical History Surgical History Presence of coronary angioplasty implant and graft (Acute) Social History Social History Substance History: No History of Abuse Second Hand Smoke Exposure: No Smoking Status: Smoker, status unknown Tobacco Type: Cigarettes How Often Do You Have a Drink Containing Alcohol: Never Recent Travel in [facility] within the Last 8 Weeks: No Recent Out of Country Travel within the Last 8 Weeks: No Exam Narrative Exam Narrative: GENERAL: Obese, elderly male, drowsy lethargic only arousable to sternal rub SKIN: Warm and dry. HEAD: Normocephalic. Patient's left earlobe appears edematous and has small caked on dried blood EYES: Pupils equal and round. No scleral icterus. No injection or drainage. ENT: No nasal bleeding or discharge. Mucous membranes pink and moist. NECK: Trachea midline. No JVD. CARDIOVASCULAR: Regular rate and rhythm. no rubs or gallops RESPIRATORY: No accessory muscle use. Clear to auscultation. Breath sounds equal bilaterally. GASTROINTESTINAL: Abdomen soft, non-tender, nondistended. No rebound or guarding MUSCULOSKELETAL: Extremities without clubbing, cyanosis, or edema. No obvious deformities. NEUROLOGICAL: Awake and alert. No obvious cranial nerve deficits. Motor grossly within normal limits. Five out of 5 muscle strength in the arms and legs. Normal speech. PSYCHIATRIC: Appropriate mood and affect; insight and judgment normal. Course Initial Documented Vital Signs Pulse Rate 50 L 05/30/18 23:08 Respiratory Rate 22 05/30/18 23:08 Blood Pressure 162/103 H 05/30/18 23:08 Pulse Oximetry 100 05/30/18 23:08 Last Documented Vital Signs Temperature 94.6 F L 05/31/18 06:00 Pulse Rate 52 L 05/31/18 06:00 Respiratory Rate 20 05/31/18 06:00 Blood Pressure 0/0 L 05/31/18 06:00 Pulse Oximetry 100 05/31/18 04:00 Procedures Central Line Placement Left SC: Time Out Performed: No Patient Placed on Monitor/Pulse Ox: Yes MD Prep: mask, gown and gloves Central Line Prep: Povidone-Iodine 1%, Chlorhexidine scrub and sterile drapes applied Local anesthesia used: lidocaine 1% Amount of anesthesia used (mL): 3 Ultrasound Used for Placement: No Central Line Lumen Inserted: triple Post Procedure: sutured in place, good blood return, all ports aspirated, flushed, capped and sterile dressing applied Post Procedure X-Ray: tip of catheter in good position and no pneumothorax seen Patient Tolerated Procedure: well Complications: none Intubation Sedative: etomidate Mg Given: 20 Paralytic: succinylcholine Mg Given: 100 Laryngoscope: Emeka ET Tube Size: 7.5 ET Tube Uncuffed: Yes Tube Secured Depth (cm): 23 Tube Secured Location: teeth Tube Placement Confirmation: visualized tube passing through cords, equal breath sounds bilaterally, no breath sounds over epigastrium and confirmation by capnometry Patient Tolerated Procedure: well Critical Care Time Critical Care Time: Yes Total Critical Care Time: 60 Attestation: Aggregate critical care time was 60 minutes. Time to perform other separately billable procedures was not included in the critical care time. My time did not include minutes spent treating any other patients simultaneously or on activities that did not directly contribute to the patient's treatment. The services I provided to this patient were to treat and/or prevent clinically significant deterioration that could result in: [Permanent disability and or from sepsis] I provided critical care services requiring my management, as noted below: Chart data review, documentation time, medication orders and management, vital sign assessments/reviewing monitor data, ordering and reviewing lab tests, ordering and interpreting/reviewing x-rays and diagnostic studies, care of the patient and discussion of the patient with the admitting physicians. Medical Decision Making MDM Narrative Medical decision making narrative: Mild leukocytosis, mild left shift at 76% neutrophilia, anemia of 8.9/26.3 Coagulation profile within normal limits Tox screen positive for benzodiazepines UA significant for UTI TSH screen normal at 0.356 consistent with hyperthyroidism Acute on chronic renal insufficiency... May 10 creatinine was 2.57 today creatinine is 6.62 Normal ammonia, normal lactic acid, hypocalcemia 6.9 Patient was originally admitted to the medicine service as the patient was hemodynamically stable however during the remainder of the night the patient started to become hypotensive dropping down to systolic in the low 100s and eventually into the 70s systolic, patient also started to become hypothermic temp 94, despite receiving warming blanket, IV fluids and antibiotics right away upon arrival. At approximately 6 in the morning a left subclavian central line was placed chest x-ray did not reveal any pneumothorax, the central line was then used to start nor epi drip to improve hypotension. Broadcast Operations Director was called for upgrade to ICU Differential Diagnosis Differential Diagnosis: Sepsis versus TX versus ICH versus pneumonia versus UTI urosepsis versus hypoglycemia versus electrolyte abnormalities Lab Data Lab results reviewed: Yes I reviewed the patient's lab results. Result diagrams: 05/30/18 23:25 05/31/18 00:35 Lab Results 05/30/18 05/30/18 05/30/18 Range/Units 23:11 23:25 23:25 WBC 12.3 H (4.0-11.0) th/mm3 RBC 2.76 L (4.50-5.90) mil/mm3 Hgb 8.9 L (13.0-17.0) gm/dL Hct 26.3 L (39.0-51.0) % MCV 95.5 (80.0-100.0) fL MCH 32.3 (27.0-34.0) pg MCHC 33.8 (32.0-36.0) % RDW 13.5 (11.6-17.2) % Plt Count 322 (150-450) th/mm3 MPV 8.5 (7.0-11.0) fL Neut % (Auto) 75.8 H (16.0-70.0) % Lymph % (Auto) 9.7 (9.0-44.0) % Fleming % (Auto) 12.1 H (0.0-8.0) % Eos % (Auto) 2.0 (0.0-4.0) % Baso % (Auto) 0.4 (0.0-2.0) % Neut # (Auto) 9.3 H (1.8-7.7) th/mm3 Lymph # (Auto) 1.2 (1.0-4.8) th/mm3 Fleming # (Auto) 1.5 H (0.0-0.9) th/mm3 Eos # (Auto) 0.2 (0.0-0.4) th/mm3 Baso # (Auto) 0.1 (0.0-0.2) th/mm3 WBC Differential . Differential Comment Auto diff final PT 11.6 (9.8-11.6) sec INR 1.1 Ratio APTT 31.2 H (24.3-30.1) sec Sodium (136-145) meq/L Potassium (3.5-5.1) meq/L Chloride (98-107) meq/L Carbon Dioxide (21.0-32.0) meq/L Anion Gap (5-15) meq/L BUN (7-18) mg/dL Creatinine (0.60-1.30) mg/dL Estimated GFR (>89) mL/min POC Glucose 138 H (68-110) mg/dl Random Glucose (74-106) mg/dL Lactic Acid (0.4-2.0) mmol/L Calcium (8.5-10.1) mg/dL Prot Corrected Calcium (8.5-10.1) mg/dL Total Bilirubin (0.2-1.0) mg/dL AST (15-37) U/L ALT (12-78) U/L Alkaline Phosphatase (45-117) U/L Ammonia (11-32) mcmol/L Troponin I (0.02-0.05) ng/mL Total Protein (6.4-8.2) g/dL Albumin (3.4-5.0) g/dL TSH (0.358-3.740) uIU/mL Urine Color (Yellw/Straw) Urine Clarity (Clear) Urine pH (5.0-8.5) Ur Specific [place] (1.002-1.035) Urine Protein (Neg-Trace) mg/dL Urine Glucose (UA) (Negative) mg/dL Urine Ketones (Negative) mg/dL Urine Occult Blood (Negative) Urine Nitrate (Negative) Urine Bilirubin (Negative) Urine Urobilinogen (Less than 2) mg/dL Ur Leukocyte Esterase (Negative) Urine RBC (0-3) /hpf Urine WBC (0-5) /hpf Urine WBC Clumps (None) Ur Squamous Epith Cells (0-5) /hpf Micro UA Comment Urine Culture Comments Urine Opiates Screen (Neg) Ur Barbiturates Screen (Neg) Ur Amphetamines Screen (Neg) U Benzodiazepines Scrn (Neg) Urine Cocaine Screen (Neg) U Cannabinoids Screen (Neg) Serum Alcohol (0-5) mg/dL 05/30/18 05/30/18 05/31/18 Range/Units 23:25 23:25 00:05 WBC (4.0-11.0) th/mm3 RBC (4.50-5.90) mil/mm3 Hgb (13.0-17.0) gm/dL Hct (39.0-51.0) % MCV (80.0-100.0) fL MCH (27.0-34.0) pg MCHC (32.0-36.0) % RDW (11.6-17.2) % Plt Count (150-450) th/mm3 MPV (7.0-11.0) fL Neut % (Auto) (16.0-70.0) % Lymph % (Auto) (9.0-44.0) % Fleming % (Auto) (0.0-8.0) % Eos % (Auto) (0.0-4.0) % Baso % (Auto) (0.0-2.0) % Neut # (Auto) (1.8-7.7) th/mm3 Lymph # (Auto) (1.0-4.8) th/mm3 Fleming # (Auto) (0.0-0.9) th/mm3 Eos # (Auto) (0.0-0.4) th/mm3 Baso # (Auto) (0.0-0.2) th/mm3 WBC Differential Differential Comment PT (9.8-11.6) sec INR Ratio APTT (24.3-30.1) sec Sodium (136-145) meq/L Potassium (3.5-5.1) meq/L Chloride (98-107) meq/L Carbon Dioxide (21.0-32.0) meq/L Anion Gap (5-15) meq/L BUN (7-18) mg/dL Creatinine (0.60-1.30) mg/dL Estimated GFR (>89) mL/min POC Glucose (68-110) mg/dl Random Glucose (74-106) mg/dL Lactic Acid 0.5 (0.4-2.0) mmol/L Calcium (8.5-10.1) mg/dL Prot Corrected Calcium (8.5-10.1) mg/dL Total Bilirubin (0.2-1.0) mg/dL AST (15-37) U/L ALT (12-78) U/L Alkaline Phosphatase (45-117) U/L Ammonia 24 (11-32) mcmol/L Troponin I (0.02-0.05) ng/mL Total Protein (6.4-8.2) g/dL Albumin (3.4-5.0) g/dL TSH (0.358-3.740) uIU/mL Urine Color (Yellw/Straw) Urine Clarity (Clear) Urine pH (5.0-8.5) Ur Specific [place] (1.002-1.035) Urine Protein (Neg-Trace) mg/dL Urine Glucose (UA) (Negative) mg/dL Urine Ketones (Negative) mg/dL Urine Occult Blood (Negative) Urine Nitrate (Negative) Urine Bilirubin (Negative) Urine Urobilinogen (Less than 2) mg/dL Ur Leukocyte Esterase (Negative) Urine RBC (0-3) /hpf Urine WBC (0-5) /hpf Urine WBC Clumps (None) Ur Squamous Epith Cells (0-5) /hpf Micro UA Comment Urine Culture Comments Urine Opiates Screen Neg (Neg) Ur Barbiturates Screen Neg (Neg) Ur Amphetamines Screen Neg (Neg) U Benzodiazepines Scrn Pos H (Neg) Urine Cocaine Screen Neg (Neg) U Cannabinoids Screen Neg (Neg) Serum Alcohol (0-5) mg/dL 05/31/18 05/31/18 Range/Units 00:05 00:35 WBC (4.0-11.0) th/mm3 RBC (4.50-5.90) mil/mm3 Hgb (13.0-17.0) gm/dL Hct (39.0-51.0) % MCV (80.0-100.0) fL MCH (27.0-34.0) pg MCHC (32.0-36.0) % RDW (11.6-17.2) % Plt Count (150-450) th/mm3 MPV (7.0-11.0) fL Neut % (Auto) (16.0-70.0) % Lymph % (Auto) (9.0-44.0) % Fleming % (Auto) (0.0-8.0) % Eos % (Auto) (0.0-4.0) % Baso % (Auto) (0.0-2.0) % Neut # (Auto) (1.8-7.7) th/mm3 Lymph # (Auto) (1.0-4.8) th/mm3 Fleming # (Auto) (0.0-0.9) th/mm3 Eos # (Auto) (0.0-0.4) th/mm3 Baso # (Auto) (0.0-0.2) th/mm3 WBC Differential Differential Comment PT (9.8-11.6) sec INR Ratio APTT (24.3-30.1) sec Sodium 139 (136-145) meq/L Potassium 4.6 (3.5-5.1) meq/L Chloride 107 (98-107) meq/L Carbon Dioxide 20.1 L (21.0-32.0) meq/L Anion Gap 12 (5-15) meq/L BUN 75 H (7-18) mg/dL Creatinine 6.62 H (0.60-1.30) mg/dL Estimated GFR 8 L (>89) mL/min POC Glucose (68-110) mg/dl Random Glucose 64 L (74-106) mg/dL Lactic Acid (0.4-2.0) mmol/L Calcium 6.9 L* (8.5-10.1) mg/dL Prot Corrected Calcium 8.5 (8.5-10.1) mg/dL Total Bilirubin 0.2 (0.2-1.0) mg/dL AST 15 (15-37) U/L ALT 16 (12-78) U/L Alkaline Phosphatase 72 (45-117) U/L Ammonia (11-32) mcmol/L Troponin I 0.05 (0.02-0.05) ng/mL Total Protein 4.2 L (6.4-8.2) g/dL Albumin 1.9 L (3.4-5.0) g/dL TSH 0.356 L (0.358-3.740) uIU/mL Urine Color Yellow (Yellw/Straw) Urine Clarity Turbid H (Clear) Urine pH 6.0 (5.0-8.5) Ur Specific [place] 1.012 (1.002-1.035) Urine Protein 100 H (Neg-Trace) mg/dL Urine Glucose (UA) Negative (Negative) mg/dL Urine Ketones Negative (Negative) mg/dL Urine Occult Blood Moderate H (Negative) Urine Nitrate Negative (Negative) Urine Bilirubin Negative (Negative) Urine Urobilinogen Less than 2 (Less than 2) mg/dL Ur Leukocyte Esterase Moderate H (Negative) Urine RBC 19 H (0-3) /hpf Urine WBC (0-5) /hpf Urine WBC Clumps Many H (None) Ur Squamous Epith Cells 4 (0-5) /hpf Micro UA Comment Cath-culture ind Urine Culture Comments Cath-cult indicated Urine Opiates Screen (Neg) Ur Barbiturates Screen (Neg) Ur Amphetamines Screen (Neg) U Benzodiazepines Scrn (Neg) Urine Cocaine Screen (Neg) U Cannabinoids Screen (Neg) Serum Alcohol Less than 3 (0-5) mg/dL Imaging Data My impression: Radiology report reviewed and images reviewed Radiologist's impression: Chest X-Ray 05/30/18 23:18 CONCLUSION: Clear lungs. Head CT 05/30/18 23:18 CONCLUSION: 1. Negative CT Head non contrast. . Chest X-Ray 05/31/18 05:25 CONCLUSION: Central line as above. ECG Data EKG Prior to Arrival: No Attestation: I personally reviewed and interpreted this ECG as follows: Prior ECG tracings: not available for review Interpretation: EKG appears to show atrial fibrillation with slow ventricular rate in the 50s Discharge Plan Discharge Disposition Patient Disposition: 30 Still Patient Discharge Condition Condition: Fair Discharge Details Diagnosis: Acute UTI, Acute alteration in mental status, Acute on chronic kidney failure, Hypocalcemia, Septic shock, Respiratory failure requiring intubation Physicians Team ED Provider: Oswaldo Velazquez Primary Care Provider: Nnamdi Gomez Attending Provider: Chantell Fuentes Discharge Interventions Interventions: Vital Signs Last Done: 05/31/18 06:00 Status ED Status: With Doctor
[2018-05-30 23:36] LABS: Baso # (Auto) 0.1 th/mm3 (0.0-0.2); Baso % (Auto) 0.4 % (0.0-2.0); Eos # (Auto) 0.2 th/mm3 (0.0-0.4); Hematocrit 26.3 % (39.0-51.0); Hemoglobin 8.9 gm/dL (13.0-17.0); Lymph # (Auto) 1.2 th/mm3 (1.0-4.8); Lymph % (Auto) 9.7 % (9.0-44.0); Mean Corpuscular HGB Conc 33.8 % (32.0-36.0); Mean Corpuscular Hemoglobin 32.3 pg (27.0-34.0); Mean Corpuscular Volume 95.5 fL (80.0-100.0); Mean Platelet Volume 8.5 fL (7.0-11.0); Mono # (Auto) 1.5 th/mm3 (0.0-0.9); Mono % (Auto) 12.1 % (0.0-8.0); Neut # (Auto) 9.3 th/mm3 (1.8-7.7); Neut % (Auto) 75.8 % (16.0-70.0); Platelet Count 322 th/mm3 (150-450); Red Blood Count 2.76 mil/mm3 (4.50-5.90); Red Cell Distribution Width 13.5 % (11.6-17.2); White Blood Count 12.3 th/mm3 (4.0-11.0)
[2018-05-30 23:45] LABS: Activated Partial Thrombo Time 31.2 sec (24.3-30.1); INR 1.1 Ratio; Prothrombin Time 11.6 sec (9.8-11.6)
--- NOTE | 2018-05-31 00:07 | CT ---
EXAM DATE: 05/30/2018 11:50 PM EDT AGE/SEX: 72 years / Male INDICATIONS: Altered mental status, patient found on floor. CLINICAL DATA: This is the patient's initial encounter. Patient reports that signs and symptoms have been present for 1 day and indicates a pain score of 0/10. MEDICAL/SURGICAL HISTORY: None. None. RADIATION DOSE: 58.78 CTDI (mGy) COMPARISON: [facility], CT BRAIN W/O CONTRAST, 07/19/2017. . TECHNIQUE: CT of the head without contrast. Using automated exposure control and adjustment of the mA and/or kV according to patient size, radiation dose was kept as low as reasonably achievable to ob tain optimal diagnostic quality images. DICOM format image data is available electronically for revi ew and comparison. FINDINGS: Cerebrum: The ventricles are normal for age. No evidence of midline shift, mass lesion, hemorrhage or acute infarction. No extraaxial fluid collections are seen. Posterior Fossa: The cerebellum and brainstem are intact. The 4th ventricle is midline. The cerebe llopontine angle is unremarkable. Extracranial: The visualized portion of the orbits is intact. Skull: The calvaria is intact. No evidence of skull fracture. CONCLUSION: 1. Negative CT Head non contrast. . Electronically signed by: Alessandro Ferrera MD 05/31/2018 12:06 AM EDT
--- NOTE | 2018-05-31 00:08 | XR ---
EXAM DATE: 05/31/2018 12:05 AM EDT AGE/SEX: 72 years / Male INDICATIONS: Shortness of breath, nonresponsive. CLINICAL DATA: This is the patient's initial encounter. Patient reports that signs and symptoms have been present for 1 day and indicates a pain score of Nonresponsive. MEDICAL/SURGICAL HISTORY: . Chronic obstructive pulmonary disease. Hypertension. Congestive hea rt failure. Atrial fibrillation. BPH. Diabetes. Hypothyroidism. PTSD. Sleep apnea CABG. COMPARISON: [facility] [place], CHEST 1V SINGLE AP, 05/10/2018. . FINDINGS: Cardiomegaly. Sternotomy wires. Clear lungs. Osseous structures are intact. CONCLUSION: Clear lungs. Electronically signed by: Alessandro Ferrera MD 05/31/2018 12:06 AM EDT
[2018-05-31] MEDS ORDERED: Sod Chloride 0.9% Inj 1,000 ML IV.SIG ONE (00:18)
[2018-05-31 00:29] LABS: Bilirubin,Urine Negative (Negative); Clarity,Urine Turbid (Clear); Color,Urine Yellow (Yellw/Straw); Glucose,Urine (UA) Negative (Negative); Leukocyte Esterase,Urine Moderate (Negative); Nitrite,Urine Negative (Negative); Specific Gravity,Urine 1.012 (1.002-1.035); Squamous Epithelial Cell,Urine 4 /hpf (0-5)
[2018-05-31 00:37] LABS: Amphetamine Screen,Urine Neg (Neg); Barbiturate Screen,Urine Neg (Neg); Cannabinoid Screen,Urine Neg (Neg); Cocaine Screen,Urine Neg (Neg)
[2018-05-31 00:38] LABS: Opiate Screen,Urine Neg (Neg)
[2018-05-31] MEDS ORDERED: SODIUM CHLOR 0.9% IV.SIG ONE (01:00)
[2018-05-31] MEDS ORDERED: GENTAMICIN IV.SIG ONE (01:00)
[2018-05-31 01:26] LABS: Anion Gap 12 meq/L (5-15)
[2018-05-31 01:37] LABS: Alanine Aminotransferase 16 U/L (12-78); Albumin 1.9 g/dL (3.4-5.0); Alkaline Phosphatase 72 U/L (45-117); Aspartate Aminotransferase 15 U/L (15-37); Blood Urea Nitrogen 75 mg/dL (7-18); Calcium 6.9 mg/dL (8.5-10.1); Carbon Dioxide 20.1 meq/L (21.0-32.0); Chloride 107 meq/L (98-107); Glomerular Filtration Rate 8 mL/min (>89); Glucose,Random 64 mg/dL (74-106); Potassium 4.6 meq/L (3.5-5.1); Sodium 139 meq/L (136-145); Thyroid Stimulating Hormone 0.356 uIU/mL (0.358-3.740); Total Protein 4.2 g/dL (6.4-8.2); Troponin I 0.05 ng/mL (0.02-0.05)
--- NOTE | 2018-05-31 06:05 | XR ---
EXAM DATE: 05/31/2018 5:43 AM EDT AGE/SEX: 72 years / Male INDICATIONS: Post central line placement. CLINICAL DATA: This is the patient's subsequent encounter. Patient reports that signs and symptoms h ave been present for 1 day and indicates a pain score of 0/10. MEDICAL/SURGICAL HISTORY: Chronic obstructive pulmonary disease. Hypertension. Congestive hea rt failure. Atrial fibrillation. BPH. Diabetes. Hypothyroidism. PTSD. Sleep apnea CABG. COMPARISON: [facility], CHEST 1V SINGLE AP, 05/30/2018. . FINDINGS: Cardiomegaly and median sternotomy wires are again seen. A left jugular line is noted in the distal t ip projects over the expected location of the SVC. There is patchy right midlung parenchymal infiltra te suspected. CONCLUSION: Central line as above. Electronically signed by: Alessandro Ferrera MD 05/31/2018 6:04 AM EDT
[2018-05-31] MEDS ORDERED: Sodium Chlor 0.9% Inj 500 ML IV.SIG ONE (06:35)
[2018-05-31] MEDS ORDERED: Etomidate Inj 40 MG/20 ML Vial IV.PUSH ONE (06:50)
[2018-05-31] MEDS ORDERED: Bisacodyl 10 MG Supp RECTAL PRN (07:25)
[2018-05-31] MEDS ORDERED: fentaNYL 10 mcg/mL Premix Drip 2,500 MCG/250 ML BAG IV.SIG PRN (07:25)
[2018-05-31] MEDS ORDERED: Dextrose 50% in Water 50 ML Vial IV.PUSH PRN (07:36)
[2018-05-31] MEDS: Sod Chloride 0.9% Inj 1,000 ML IV.CONT SCH ×2 (07:56→20:31)
--- NOTE | 2018-05-31 07:57 | P.HPCC ---
History of Present Illness Service: Critical care medicine Primary Care Physician: Nnamdi Gomez MD Chief Complaint: Altered mental status/acute respiratory failure/urinary tract infection History of Present Illness: This is a 72-year-old male. He is a resident [facility]. Date of admission 05/30/2018. Originally admitted to hospitalist service and now under our service 05/31/2018. Past medical history includes fibromyalgia, dementia, history of CVA, obstructive sleep apnea, atrial fibrillation/chronic, COPD, chronic kidney disease stage IV, BPH, diabetes mellitus, elevated BMI, atherosclerotic vascular disease, nephrolithiasis, liver cirrhosis, essential hypertension, hyperlipidemia, gout, history of right ice C occlusion, hypothyroidism, dysphagia, constipation, diplopia, CABG 2, TURP, cardiac stent, right percutaneous lithotripsy, liver biopsy and bilateral hand surgery. Patient is also on chronic benzodiazepines. Patient presented to [facility] on 05/30/2018 with history of being found on the floor between his bed in the window. His head was against the dresser. He was able to tell if he hit his head. There is a large amount about was in the floor but not bleeding from the head. He has excoriations on his back and his left knee and right wrist. CT brain at this facility was negative. Patient is on apixaban and aspirin at home. Patient was noted to have a urinary tract infection was started on cefepime and gentamicin by ED physician. Throughout the night, patient became more confused and is found to be obtunded earlier this morning was intubated and centralized placed due to hypotension. He is currently on norepinephrine drip at 12 mcg/min. Troponin was 0.05. Patient had a leukocytosis, normocytic anemia, creatinine 6.6/ baseline around 2.5 and TSH is 0.356. We are asked to admit the patient at this time. He is currently intubated and arousable in room C 25 in ED. No family available. Review of Systems unobtainable due to endotracheal tube PMFSH - History History Provided By: Medical Record, Chemist Physical / EMT - Medical History Medical History: Medical History (Last Updated 05/31/18 @ 07:54 by Last Solorio MD) BPH (benign prostatic hyperplasia) (Acute) Diabetes mellitus (Acute) Sleep apnea (Acute) PTSD (post-traumatic stress disorder) (Acute) COPD (chronic obstructive pulmonary disease) (Acute) Acute on chronic systolic (congestive) heart failure (Acute) Atrial fibrillation (Acute) Atherosclerotic cardiovascular disease (Acute) NSTEMI (non-ST elevated myocardial infarction) (Acute) Adjustment disorder Anginal equivalent Anticoagulant long-term use Chronic kidney disease, stage IV (severe) Chronic use of benzodiazepine for therapeutic purpose Coronary artery disease Dementia Dysphasia Essential hypertension Fibromyalgia Hyperlipidemia Nephrolithiasis Occlusion of right internal carotid artery Hypertension Hypothyroid - Surgical History Surgical History: Surgical History (Last Updated 05/31/18 @ 07:56 by Last Solorio MD) Presence of coronary angioplasty implant and graft (Acute) H/O hand surgery H/O nephrostomy History of liver biopsy S/P TURP S/P coronary artery stent placement - Family History Family History: Family History (Last Updated 05/31/18 @ 07:56 by Last Solorio MD) Other Family history of diabetes mellitus - Tobacco History Second Hand Smoke Exposure: No Tobacco Use In Past 30 Days: No Smoking Status: Former smoker (Quit tobacco 30 years ago) Tobacco Type: Cigarettes Years Smoked: 30 Number of Pack Years (if former smoker): 30 - Alcohol History How Often Do You Have a Drink Containing Alcohol: Never (Quit alcohol 30 years ago) - Substance Use History Substance History: No History of Abuse - Travel History Recent Travel in the [place] Within the Last 8 Weeks: No Recent Travel Out of the Country Within the Last 8 Weeks: No - Immunization History Tetanus Immunization: Unsure Hx Influenza Vaccine This Season: Unable to Assess Medications and Allergies Active Medications: Active Medications Albuterol (Albuterol Neb (Prn)) 2.5 mg NEB Q2HR NEB PRN PRN Reason: SHORTNESS OF BREATH/WHEEZING Albuterol (Duoneb Neb ([place])) 1 ampul NEB Q4HR NEB [facility] Apixaban (Eliquis) 2.5 mg PO BID [facility] Artificial Tears (Genteal Severe Dry Eye Relief 0.3% Opth Gel) 1 drops EACH EYE BID [facility] Aspirin (Aspirin Chew) 81 mg PO DAILY [facility] Atorvastatin Calcium (Lipitor) 40 mg PO DAILY [facility] Bisacodyl (Dulcolax Supp) 10 mg RECTAL DAILY PRN PRN Reason: SEVERE CONSITIPATION Chlorhexidine Gluconate (Chlorhexidine 2% Cloth) 3 pack TOPICAL DAILY@0400 [facility] Stop: 06/06/18 03:59 Chlorhexidine Gluconate (Chlorhexidine 2% Cloth) 3 pack TOPICAL DAILY@0400 PRN PRN Reason: Extra cloth needed Stop: 06/06/18 03:59 Dextrose (D50w Vial) 50 ml IV.PUSH UNSCH PRN PRN Reason: PER HYPOGLYCEMIA PROTOCOL Dextrose (D50w Vial) 50 ml IV.PUSH UNSCH PRN PRN Reason: PER HYPOGLYCEMIA PROTOCOL Glucagon (Glucagon Inj) 1 mg OTHER PRN PRN PRN Reason: for Hypoglycemia Protocol Glucagon (Glucagon Inj) 1 mg OTHER PRN PRN PRN Reason: for Hypoglycemia Protocol Pharmacy Profile Note (Gentamicin Consult Pharmacy) mls @ 0 mls/hr OTHER DAILY [place] Norepinephrine Bitartrate (Levophed-Dextrose 4 Mg/250 Ml Drip) 4 mg in 250 mls @ 7.5 mls/hr IV.SIG TITRATE PRN; Protocol PRN Reason: Per Protocol Last Titration: 05/31/18 07:07 Dose: 12 mcg/min, 45 mls/hr Fentanyl (Fentanyl 10 Mcg/Ml Premix Drip) 2,500 mcg in 250 mls @ 5 mls/hr IV.SIG TITRATE PRN; Protocol PRN Reason: Per Protocol Sodium Chloride (Ns Inj) 1,000 mls @ 84 mls/hr IV.CONT .[id number] [facility] Propofol (Diprivan 1000 Mg/100 Ml Inj) 1,000 mg in 100 mls @ 4.082 mls/hr IV.CONT TITRATE PRN; Protocol PRN Reason: Per Protocol Acetaminophen (Ofirmev Inj) 1,000 mg in 100 mls @ 400 mls/hr IV.SIG Q8H PRN PRN Reason: FEVER Vasopressin 40 unit/ Sodium (Chloride) 100 mls @ 6 mls/hr IV.CONT CONT [facility]; Protocol Cefepime HCl 500 mg/ Sodium (Chloride) 100 mls @ 200 mls/hr IV.SIG Q24HR [facility] Insulin Aspart (Novolog Insulin Correctional Sugar Inj) 0 unit SQ Q4HR [facility]; Protocol Lactulose (Lactulose Liq) 30 ml PO DAILY PRN PRN Reason: SEVERE CONSITIPATION Lansoprazole (Prevacid Solutab) 30 mg NG/OG DAILY [facility] Levothyroxine Sodium (Synthroid) 175 mcg PO DAILY [facility] Non-Formulary Medication (Clotrimazole [Clotrimazole]) 1 applic TOPICAL BID [facility] Non-Formulary Medication (Saccharomyces Boulardii [Saccharomyces Boulardii]) 250 mg PO TID [facility] Ondansetron HCl (Zofran Inj) 4 mg IV.PUSH Q6H PRN PRN Reason: NAUSEA OR VOMITING Pregabalin (Lyrica) 75 mg PO BID [facility] Sennosides (Senokot) 17.2 mg PO Q12H PRN PRN Reason: Moderate Constipation Sodium Chloride (Ns Flush) 2 ml IV.FLUSH PRN PRN PRN Reason: FLUSH AFTER USING IV ACCESS Sodium Chloride (Ns Flush) 2 ml IV.FLUSH BID [place] Sodium Chloride (Ns Flush) 2 ml IV.FLUSH PRN PRN PRN Reason: FLUSH AFTER USING IV ACCESS Sucralfate (Carafate) 1 gm PO TIDAC [facility] Tamsulosin HCl (Flomax) 0.4 mg PO DAILY [facility] Allergies Allergy/AdvReac Type Severity Reaction Status Date / Time ciprofloxacin Allergy Severe Itching Verified 05/30/18 23:15 diatrizoate meglumine Allergy Severe Itching Verified 05/30/18 23:15 gadobenic acid Allergy Severe Itching Verified 05/30/18 23:15 gadodiamide Allergy Severe Itching Verified 05/30/18 23:15 gadoteridol Allergy Severe Itching Verified 05/30/18 23:15 iodixanol Allergy Severe Itching Verified 05/30/18 23:15 iohexol Allergy Severe Itching Verified 05/30/18 23:15 levofloxacin Allergy Severe Itching Verified 05/30/18 23:15 celecoxib [From Celebrex] Allergy Unknown Itching Verified 05/30/18 23:15 ezetimibe [From Zetia] Allergy Unknown Itching Verified 05/30/18 23:15 prochlorperazine Allergy Unknown Itching Verified 05/10/18 20:51 [From Compazine] red dye Allergy Unknown Itching Verified 05/10/18 20:51 Home Medications Medication Instructions Recorded Confirmed Type apixaban 2.5 mg PO BID 05/10/18 05/31/18 History aspirin 81 mg PO DAILY 05/10/18 05/31/18 History atorvastatin 40 mg PO DAILY 05/10/18 05/31/18 History bumetanide 2 mg PO DAILY 05/10/18 05/31/18 History ferrous sulfate 325 mg PO DAILY 05/10/18 05/31/18 History furosemide 40 mg PO BID 05/10/18 05/31/18 History insulin aspart U-100 [Novolog 10 unit SUB-Q TIDAC 05/10/18 05/31/18 History U-100 Insulin aspart] insulin glargine 25 unit SUB-Q Q12H PRN 05/10/18 05/31/18 History ipratropium-albuterol 3 ml INHALATION Q4H PRN 05/10/18 05/31/18 History levothyroxine 200 mcg PO DAILY 05/10/18 05/31/18 History lisinopril 40 mg PO DAILY 05/10/18 05/31/18 History meclizine 25 mg PO DAILY PRN 05/10/18 05/31/18 History metoprolol tartrate 100 mg PO BID 05/10/18 05/31/18 History omeprazole 20 mg PO DAILY 05/10/18 05/31/18 History pregabalin [Lyrica] 75 mg PO BID 05/10/18 05/31/18 History ranolazine 500 mg PO Q12H PRN 05/10/18 05/31/18 History tamsulosin 0.4 mg PO DAILY 05/10/18 05/31/18 History Saccharomyces boulardii 250 mg PO TID 05/31/18 05/31/18 History alprazolam 0.25 mg PO TID 05/31/18 05/31/18 History clonidine HCl 0.1 mg PO Q8HR PRN 05/31/18 05/31/18 History clotrimazole 1 applic TOPICAL BID 05/31/18 05/31/18 History diltiazem HCl 120 mg PO DAILY 05/31/18 05/31/18 History doxycycline hyclate 100 mg PO BID 05/31/18 05/31/18 History ibuprofen 800 mg PO Q6H PRN 05/31/18 05/31/18 History pantoprazole 40 mg PO BID 05/31/18 05/31/18 History sucralfate 1 g PO TIDAC 05/31/18 05/31/18 History tiotropium bromide [Spiriva with 1 cap INHALATION DAILY 05/31/18 05/31/18 History HandiHaler] Results - Labs CBC & Chem 7: 05/30/18 23:25 05/31/18 00:35 Labs: Short CBC 05/30/18 Range/Units 23:25 WBC 12.3 H (4.0-11.0) th/mm3 Hgb 8.9 L (13.0-17.0) gm/dL Hct 26.3 L (39.0-51.0) % Plt Count 322 (150-450) th/mm3 BMP 05/31/18 00:35 Sodium 139 Potassium 4.6 Chloride 107 Carbon Dioxide 20.1 L BUN 75 H Creatinine 6.62 H Calcium 6.9 L* Cardiac Enzymes 05/31/18 Range/Units 00:35 Troponin I 0.05 (0.02-0.05) ng/mL Liver Function 05/31/18 Range/Units 00:35 Total Bilirubin 0.2 (0.2-1.0) mg/dL AST 15 (15-37) U/L ALT 16 (12-78) U/L Alkaline Phosphatase 72 (45-117) U/L Albumin 1.9 L (3.4-5.0) g/dL Urine 05/31/18 Range/Units 00:05 Urine Color Yellow (Yellw/Straw) Urine Clarity Turbid H (Clear) Urine pH 6.0 (5.0-8.5) Ur Specific [place] 1.012 (1.002-1.035) Urine Protein 100 H (Neg-Trace) mg/dL Urine Glucose (UA) Negative (Negative) mg/dL - Imaging Impressions Chest X-Ray 05/30/18 23:18 CONCLUSION: Clear lungs. Head CT 05/30/18 23:18 CONCLUSION: 1. Negative CT Head non contrast. . Chest X-Ray 05/31/18 05:25 CONCLUSION: Central line as above. Exam Vital signs: Vital Signs 05/30/18 23:08 05/31/18 00:02 05/31/18 01:00 Temperature Pulse Rate 50 L 45 L 39 L Respiratory Rate 22 18 16 Blood Pressure 162/103 H 72/37 L 114/42 L Pulse Oximetry 100 100 100 05/31/18 02:00 05/31/18 03:00 05/31/18 03:53 Temperature Pulse Rate 42 L 42 L Respiratory Rate 20 18 Blood Pressure 98/42 L Pulse Oximetry 100 100 100 05/31/18 04:00 05/31/18 05:00 05/31/18 05:26 Temperature 94.1 F L 94.6 F L Pulse Rate 42 L 49 L Respiratory Rate 18 22 Blood Pressure 103/58 L Pulse Oximetry 100 05/31/18 06:00 05/31/18 07:06 Temperature 94.6 F L Pulse Rate 52 L Respiratory Rate 20 14 Blood Pressure 0/0 L Pulse Oximetry Intake & Output 05/30/18 05/31/18 05/31/18 18:59 06:59 18:59 Output Total 1000 / 1000 Balance -1000 / -1000 Weight 136.078 kg Output: Urine Amount (Catheter) 1000 / 1000 Coude 1000 / 1000 Narrative: GENERAL: 72-year-old male currently orotracheally intubated SKIN: Warm and dry. Excoriations on back, will left knee anteriorly and right wrist HEAD: Atraumatic. Normocephalic. EYES: Pupils equal and round bilaterally and minimally reactive. No scleral icterus. No injection or drainage. ENT: No nasal bleeding or discharge. Mucous membranes pink and moist. NECK: Trachea midline. No JVD. CARDIOVASCULAR: Tachycardic, IR. S1, S2 predose for without murmur. RESPIRATORY: His breath sounds due to body habitus. Few crackles patient bases bilaterally. GASTROINTESTINAL: Abdomen soft, non-tender, obese. Hypoactive bowel sounds appreciated. MUSCULOSKELETAL: Extremities trace bilateral lower extremity edema. No obvious deformities. NEUROLOGICAL: Currently sedated on the ventilator on propofol drip. Withdraws all 4 extremity spontaneously. Positive gag, cough and corneal reflex. Septic Shock Reassessment Septic shock perfusion: reassessment completed Caprini VTE Risk Assessment Caprini VTE Risk Assessment: Moderate/High Risk (score >= 2) Caprini Risk Assessment Model: Point Value = 1 Point Value = 2 Point Value = 3 Point Value = 5 Age 41-60 Minor surgery BMI > 25 kg/m2 Swollen legs Varicose veins or History of unexplained or recurrent spontaneous Oral contraceptives or hormone replacement Sepsis (< 1 month) Serious lung disease, including pneumonia (< 1 month) Abnormal pulmonary function Acute myocardial infarction Congestive heart failure (< 1 month) History of inflammatory bowel disease Medical patient at bed rest Age 61-74 Arthroscopic surgery Major open surgery (> 45 min) Laparoscopic surgery (> 45 min) Malignancy Confined to bed (> 72 hours) Immobilizing plaster cast Central venous access Age >= 75 History of VTE Family history of VTE Factor V Leiden Prothrombin [id number] Lupus anticoagulant Anticardiolipin antibodies Elevated serum homocysteine Heparin-induced thrombocytopenia Other congenital or acquired thrombophilia Stroke (< 1 month) Elective arthroplasty Hip, pelvis, or leg fracture Acute spinal cord injury (< 1 month) Prophylaxis Regimen: Total Risk Factor Score Risk Level Prophylaxis Regimen 0-1 Low Early ambulation 2 Moderate Order ONE of the following: *Sequential Compression Device (SCD) *Heparin 5000 units SQ BID 3-4 Higher Order ONE of the following medications: *Heparin 5000 units SQ TID *Enoxaparin/Lovenox 40 mg SQ daily (WT < 150 kg, CrCl > 30 mL/min) *Enoxaparin/Lovenox 30 mg SQ daily (WT < 150 kg, CrCl > 10-29 mL/min) *Enoxaparin/Lovenox 30 mg SQ BID (WT < 150 kg, CrCl > 30 mL/min) AND/OR *Sequential Compression Device (SCD) 5 or more Highest Order ONE of the following medications: *Heparin 5000 units SQ TID (Preferred with Epidurals) *Enoxaparin/Lovenox 40 mg SQ daily (WT < 150 kg, CrCl > 30 mL/min) *Enoxaparin/Lovenox 30 mg SQ daily (WT < 150 kg, CrCl > 10-29 mL/min) *Enoxaparin/Lovenox 30 mg SQ BID (WT < 150 kg, CrCl > 30 mL/min) AND *Sequential Compression Device (SCD) Assessment and Plan - Assessment and Plan Plan: Neuro/Psych: Acute encephalopathy likely toxic metabolic secondary to severe sepsis Chronic benzodiazepine use CVA Dementia disorder NOS History of fibromyalgia Adjustment disorder with depressive features History of diplopia Currently on propofol/fentanyl drips for sedation/analgesia while intubated Goal of RASS of -[address] brain on admission revealed no acute intracranial findings Continue pregabalin 75 mg twice daily for peripheral neuropathy. Holding alprazolam 0.25 mg 3 times daily for anxiety. 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 Check CVP Currently norepinephrine drip at 12 mcg/min to maintain mean artery pressure greater than equal to 65 2D echo 9/17 revealed EF of 40-45%. LV dilatation. PAP 31 mmHg. Basilar inferolateral and inferior lateral hypokinesis. Repeat echocardiogram limited ordered 05/31 Initial troponin 0 0.05. Cycle 2 Cycle lactates every 6 hours 4 Heart catheterization 09/08 revealed patent LAURA to LAD and SVG to RCA. 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 Resp: Acute respiratory failure History of WERNER History of COPD Prior history of tobaccoism [facility] / Ventilator bundle Albuterol/ipratropium aerosols every 4 hours with albuterol aerosols every 2 hours as needed for dyspnea Post intubation chest x-ray reveals patchy infiltrate right midlung region. Adequacy of the ET tube and central line Holding Tiotropium 80 mg daily while on ipratropium GI: Gastroesophageal reflux disease history of gastric ulcer Constipation Hypoalbuminemia History of dysphasia History of liver biopsy with diagnosis of cirrhosis? OGT to [facility] Lansoprazole/sucralfate for GI prophylaxis. Patient is on omeprazole/ pantoprazole? Daily at residential. Polyethylene glycol 17 g twice daily for bowel regimen : BPH status post TURP History of nephrolithiasis status post right percutaneous lithotripsy 2004 Resume tamsulosin 0.4 mg daily when able Maintain Mansfield catheter for accurate I's and O's Endo: Diabetes mellitus 1.5 treat as 1.0 Hypothyroidism History of gout Holding insulin glargine 25 units twice daily and aspirin 8100 3 times daily with meals. Sliding-scale insulin with aspart insulin/high regimen with Accu-Cheks every 4 hours to maintain euglycemia Decrease levothyroxine from 200-175 mg daily. TSH was 0.356. Renal: Acute kidney injury in the setting of chronic kidney disease stage IV Check abdomen/pelvis CT rule out hydronephrosis Check urine electrolytes and eosinophils Avoid nephrotoxic drug\ Monitor urine output with accurate I's and O's. Possible need hemodialysis. But not emergently Heme: Leukocytosis Normocytic anemia/anemia of chronic kidney disease Chronic apixaban use 2.5 mg twice daily Resume apixaban 2.5 mg twice daily Monitor CBC daily. Follow trends. No indication for transfusion of blood products at this time. Type and screen ID: History of Enterococcus faecalis bacteremia History of staph saprophyticus urinary tract infection Received cefepime and gentamicin in the ED. We will treat with cefepime 500 mg daily/renally dosed Infectious disease was consulted for further antibiotic recommendations/ management CT abdomen/pelvis pending Holding doxycycline 100 mg twice daily/home medication Resume clotrimazole 1% to affected areas twice daily. Blood cultures 2 05/31 pending UA pending Sputum pending Influenza a and B pending Legionella and pneumococcal urinary antigens pending MSK: Elevated BMI Weight loss encouraged FEN: Replace electrolytes as clinically indicated Currently normal saline at 84 cc an hour Access -Left subclavian CVL day #1 placed by ED physician Prophylaxis -GI -lansoprazole/sucralfate -DVT -SCD/apixaban will provide DVT prophylaxis Critical care 35 minutes admission Code Status: Full code Discussed Condition With: Dr. Velazquez/ED physician. No family available. Care plan discussed and all questions answered.
[2018-05-31] MEDS ORDERED: Dextrose 50% in Water Syringe 50 ML ONE ×2 (08:03→20:49)
[2018-05-31] MEDS: Insulin NovoLOG Aspart Correctional Sugar Inj SQ SCH ×4 (08:04→21:55)
[2018-05-31] MEDS: Sucralfate 1 GM Tablet PO SCH ×3 (08:05→17:16)
[2018-05-31 08:15] LABS: ABG PCO2 50 mmHg (38-42); ABG PO2 276 mmHg (61-120)
[2018-05-31] MEDS ORDERED: SACCHAROMYCES BOULARDII 250 MG PO SCH (09:15)
[2018-05-31 09:24] LABS: Creatinine,Urine Random 154 mg/dL (27-300)
[2018-05-31 09:26] LABS: Troponin I 0.04 ng/mL (0.02-0.05)
--- NOTE | 2018-05-31 09:47 | CT ---
EXAM DATE: 05/31/2018 9:27 AM EDT AGE/SEX: 72 years / Male INDICATIONS: Urinary tract infection, history of nephrolithiasis. CLINICAL DATA: This is the patient's initial encounter. Patient reports that signs and symptoms have been present for 1 day and indicates a pain score of Nonresponsive. MEDICAL/SURGICAL HISTORY: Cardiovascular disease. Hypertension. Dementia. . TURP RADIATION DOSE: 19.66 CTDI (mGy) COMPARISON: [facility], CT ABDOMEN & PELVIS W/O CONTRAST, 07/02/2017. . TECHNIQUE: Multiple contiguous axial images were obtained through the abdomen. Images were obtained using multiple row detector helical technique. Using automated exposure control and adjustment of the mA and/or kV according to patient size, radiation dose was kept as low as reasonably achievable to o btain optimal diagnostic quality images. DICOM format image data is available electronically for rev iew and comparison. FINDINGS: Lower Lungs: Small bilateral pleural effusions with significant bibasilar consolidation and resolving air bronchogram formation. Coronary artery atherosclerotic calcifications.. Liver: The liver has a homogeneous density without space-occupying lesion. There is no dilation of th e biliary tree. Gallbladder is unremarkable. Spleen: Homogeneous density without enlargement. Pancreas: Unremarkable without mass or calcification. Kidneys: Normal in size and shape. No evidence of mass or hydronephrosis. There is a 7 mm nonobstruc ting stone involving the right kidney. Adrenal Glands: Unremarkable. Aorta: Diffuse calcified atherosclerotic plaque throughout the aorta and inflow vessels. No aneurys mal change.. Bowel/Mesentery: The bowel loops are grossly unremarkable. The cecum and sigmoid colon have a normal configuration. Abdominal Wall: Intact. Retroperitoneum: No evidence of adenopathy in the retrocrural, para-aortic, or deep pelvic regions. Bladder: A Mansfield is present in the urinary bladder totally decompressed and poorly evaluated.. Reproductive Organs: No abnormal masses or calcifications seen. Inguinal: The inguinal region is unremarkable without evidence of adenopathy. Bony Structures: Unremarkable. CONCLUSION: 1. No acute abnormality. 2. 7 mm nonobstructing right renal stone. 3. Small bilateral pleural effusions with bibasilar consolidations. This is more pronounced than typ ical passive atelectasis. Infectious etiology versus pulmonary edema. Electronically signed by: Orlando Huntley MD 05/31/2018 9:45 AM EDT
[2018-05-31] MEDS: Ferrrous Sulfate 300 MG/5 ML UDC PO SCH (12:18)
[2018-05-31] MEDS: Polyethylene Glycol 3350 17 GM Packet NG/OG SCH ×2 (12:19→20:36)
[2018-05-31] MEDS: Gentamicin Consult Pharmacy 1 EACH OTHER SCH ×3 (12:19→16:25)
[2018-05-31] MEDS: Clotrimazole 1% Cream 15 GM Tube TOPICAL SCH ×2 (12:19→21:57)
[2018-05-31] MEDS: Hypromellose 0.3% Opth Gel 10 GM Bottle EACH EYE SCH ×2 (12:19→21:57)
[2018-05-31] MEDS: Pregabalin 75 MG Capsule PO SCH ×2 (12:19→20:32)
[2018-05-31] MEDS: Levothyroxine 75 MCG Tablet PO SCH (12:20)
[2018-05-31] MEDS: Oral Hygiene Kit OROPHARYNG SCH ×2 (12:20→17:15)
[2018-05-31] MEDS: Ascorbic Acid 500 MG Tablet PO SCH (12:20)
[2018-05-31] MEDS: Levothyroxine 100 MCG Tablet PO SCH (12:20)
--- NOTE | 2018-05-31 13:10 | MB ---
cc: Pavel Perry MD DATE: 05/31/2018 REQUESTING PHYSICIAN: Dr. Last Solorio. REASON FOR CONSULTATION: Severe sepsis, history of Escherichia faecalis bacteremia, Staphylococcus urinary tract infection. Assist with antibiotic management. HISTORY OF PRESENT ILLNESS: This is a 72-year-old white male who was brought to the emergency department from [facility] with altered mental status. He was intubated in the emergency department and is currently on the ventilator. He is on 15 mcg of Levophed. He had a decreased blood pressure, as well as increased respiratory rate and was bradycardic and hypothermic with temperature of 94.6 degrees earlier. He now has marked decreased urine output and is in acute renal failure. Information is obtained from the medical record. The patient is currently unresponsive, on the ventilator. The patient received one dose of gentamicin in the emergency department early this morning and was put on cefepime. Urinalysis showed many white blood cell clumps and innumerable white cells. Urine culture is pending. Chest x-ray is also showing bilateral infiltrates, more pronounced at the right middle lobe. The patient also underwent CT scan of the abdomen and it showed bibasilar consolidation and bilateral small pleural effusion. A 7 mm nonobstructive renal stone on the right was also noted. Blood cultures were taken and are pending. PAST MEDICAL HISTORY: Dementia, diabetes mellitus, hypertension, hypothyroidism, hyperlipidemia, fibromyalgia, benign prostatic hypertrophy, chronic kidney disease stage IV, chronic obstructive pulmonary disease, coronary artery disease, nephrolithiasis, non-ST elevated myocardial infarction, post-traumatic stress disorder, history of nephrostomy, history of coronary stents, history of TURP. ALLERGIES: CIPROFLOXACIN, LEVAQUIN, EZETIMIBE, PROCHLORPERAZINE, IOHEXOL, IODIXANOL, GADOTERIDOL, GADODIAMIDE, GADOBENIC ACID, DIATRIZOATE MEGLUMINE. SOCIAL HISTORY: Unable to obtain. The patient is noted to be a former smoker. No history of alcohol use or drug abuse. FAMILY HISTORY: Unable to obtain. REVIEW OF SYSTEMS: Unable to obtain. PHYSICAL EXAMINATION: GENERAL: This is an obese male who is unresponsive on the ventilator. VITAL SIGNS: Temperature 99.0, blood pressure 105/49, respirations 16, heart rate 70. HEENT: The head is atraumatic. Examination of the extraocular movements cannot be done because he is intubated and unresponsive. There is edema of the conjunctivae. No icterus. Pupils are constricted, but reactive. NECK: No adenopathy or swelling. LUNGS: Bilateral rales. HEART: Irregular rate and rhythm. No murmurs, rubs or gallops are audible. ABDOMEN: Obese, soft, hyperactive bowel sounds. No masses palpable. RECTAL: Not performed. EXTREMITIES: Trace edema of the upper extremities. No edema of the lower extremities. No clubbing or cyanosis. SKIN: No rash. NEUROLOGIC: Unable to assess. PSYCHIATRIC: Unable to assess. LABORATORY DATA: WBC 12.3, 75% neutrophils, 9% lymphocytes, 12% monocytes, hemoglobin 8.9, platelets 322. Creatinine 6.62, BUN 75, estimated GFR 8. Sodium 139. Liver function tests normal. IMPRESSION: 1. Septic shock, probably secondary to urinary infection. The patient now requiring Levophed and he has acute kidney disease and chronic kidney disease. 2. Urinary tract infection. 3. Acute respiratory failure. 4. Acute kidney disease. 5. Bilateral lung infiltrates, which could be congestive heart failure versus bilateral pneumonia. RECOMMENDATIONS: 1. Continue cefepime every 24 hours because of his kidney function. 2. Avoid nephrotoxic antibiotics like gentamicin of which patient received one dose earlier. 3. Follow blood cultures. 4. Follow urine culture. 5. Followup sputum cultures. 6. Monitor clinical status. The patient is very critically ill at this time. I will follow the progress and will make further recommendations on followup. MD [place] Sher/CLARY , 12:33 PM , 12:48 PM
[2018-05-31] MEDS: Vasopressin Inj 40 UNIT in Sodium Chlor 0.9% Inj 98 ML IV.CONT SCH (13:49)
--- NOTE | 2018-05-31 16:48 | P.PNWCN ---
Wound Care Nurse Consult Description: Consult for Wound Management of back, r wrist, l knee per Dr Solorio Communicated with: ITZ Hopkins Recommendation: Buttocks BID and PRN for moisture and friction: 1. Calazime skin protectant paste 2. Ultrasorb under buttocks 3. Continue to reposition patient to relieve pressure. Additional information: Patient seen on 3 for evaluation of moisture/friction related skin injuries on buttocks. Skin tear to right wrist (follow protocols for skin tears) . Left knee abrasion is dry and was left open to air. Wound/Pressure Injury - Wound Right Forearm Wound Type: Skin Tear Wound Bed Appearance: Purple, no longer bleeding underneath skin tear. Surrounding Tissue Appearance: Edematous Surrounding Tissue Temperature: Cool Drainage Amount: None Dressing Status: Changed Cleansing Solution: Saline Primary Dressing: Xeroform Cover Dressing: Gauze Roll/Wrap Wound Dressing Change Date: 05/31/18 Left Knee Wound Type: Abrasion Is This a Chronic Wound: No Wound Bed Appearance: Matheson Wound Bed Appearance: dry, scab Drainage Amount: None Dressing Status: Open to Air Topical: Cavilon skin barrier film
[2018-05-31] MEDS ORDERED: Midazolam 50 MG/50 ML Inj 50 MG/50 ML BAG IV.CONT PRN (17:43)
--- NOTE | 2018-05-31 21:32 | CT ---
EXAM DATE: 05/31/2018 9:27 PM EDT AGE/SEX: 72 years / Male INDICATIONS: Possible Hemorrhage, new onset of seizures. CLINICAL DATA: This is the patient's initial encounter. Patient reports that signs and symptoms have been present for 1 day and indicates a pain score of 0/10. MEDICAL/SURGICAL HISTORY: Dementia. Chronic obstructive pulmonary disease. Cardiovascular disease . AFIB, Hypertension. . Coronary stent. RADIATION DOSE: 66.34 CTDI (mGy) COMPARISON: [facility], CT HEAD W/O CONTRAST, 05/30/2018. . TECHNIQUE: CT of the head without contrast. Using automated exposure control and adjustment of the mA and/or kV according to patient size, radiation dose was kept as low as reasonably achievable to ob tain optimal diagnostic quality images. DICOM format image data is available electronically for revi ew and comparison. FINDINGS: Cerebrum: The ventricles are normal for age. No evidence of midline shift, mass lesion, hemorrhage or acute infarction. No extraaxial fluid collections are seen. Posterior Fossa: The cerebellum and brainstem are intact. The 4th ventricle is midline. The cerebe llopontine angle is unremarkable. Extracranial: The visualized portion of the orbits is intact. Skull: The calvaria is intact. No evidence of skull fracture. CONCLUSION: Stable evaluation the brain without evidence of acute infarct, hemorrhage, mass or edema. . Electronically signed by: Jonn Sorensen MD 05/31/2018 9:31 PM EDT
[2018-05-31] MEDS ORDERED: Fosphenytoin Inj 1,000 MGPE in Sodium Chlor 0.9% Inj 50 ML IV.SIG ONE (22:00)
--- NOTE | 2018-05-31 22:07 | ECG ---
Date Performed: 05/30/2018 Time Performed: 23:15:24 PTAGE: 72 years EKG: POSSIBLE SINUS BRADYCARDIA LOW QRS VOLTAGE IN EXTREMITY LEADS PROLONGED QT INTERVAL ABNORMA L ECG Compared to PREVIOUS TRACING , rate slower DOCTOR: Lila Gaspar Interpretating Date/Time 05/31/2018 22:06:36
[2018-06-01] MEDS: Propofol 1000 mg/100 ml Inj 1,000 MG/100 ML BOTTLE IV.CONT PRN ×3 (00:45→19:53)
[2018-06-01] MEDS: Oral Hygiene Kit OROPHARYNG SCH ×4 (00:45→17:08)
[2018-06-01] MEDS ORDERED: Sodium Chlor 0.9% Inj 500 ML IV.SIG SCH (01:00)
[2018-06-01] MEDS: Insulin NovoLOG Aspart Correctional Sugar Inj SQ SCH ×6 (01:28→21:08)
[2018-06-01 01:41] LABS: Creatinine,Urine Random 265 mg/dL (27-300)
[2018-06-01] MEDS: Chlorhexidine Gluconate 2% 1 Pack (2 Cloths) TOPICAL SCH (03:36)
[2018-06-01] MEDS ORDERED: Chlorhexidine Gluconate 2% 1 Pack (2 Cloths) TOPICAL PRN (04:00)
[2018-06-01] MEDS: Vasopressin Inj 40 UNIT in Sodium Chlor 0.9% Inj 98 ML IV.CONT SCH ×2 (04:20→20:34)
[2018-06-01 05:18] LABS: Baso % (Auto) 0.6 % (0.0-2.0); Eos # (Auto) 0.2 th/mm3 (0.0-0.4); Eos % (Auto) 3.1 % (0.0-4.0); Hematocrit 22.6 % (39.0-51.0); Hemoglobin 7.6 gm/dL (13.0-17.0); Lymph % (Auto) 13.2 % (9.0-44.0); Mean Corpuscular HGB Conc 33.5 % (32.0-36.0); Mean Corpuscular Hemoglobin 32.1 pg (27.0-34.0); Mean Corpuscular Volume 95.9 fL (80.0-100.0); Mean Platelet Volume 8.3 fL (7.0-11.0); Mono % (Auto) 13.7 % (0.0-8.0); Neut # (Auto) 5.1 th/mm3 (1.8-7.7); Neut % (Auto) 69.4 % (16.0-70.0); Platelet Count 224 th/mm3 (150-450); Red Blood Count 2.35 mil/mm3 (4.50-5.90); Red Cell Distribution Width 13.7 % (11.6-17.2); White Blood Count 7.3 th/mm3 (4.0-11.0)
[2018-06-01 05:19] LABS: Activated Partial Thrombo Time 36.4 sec (24.3-30.1); INR 1.2 Ratio; Prothrombin Time 12.2 sec (9.8-11.6)
[2018-06-01 05:31] LABS: Albumin 1.9 g/dL (3.4-5.0); Anion Gap 10 meq/L (5-15); Aspartate Aminotransferase 20 U/L (15-37); Blood Urea Nitrogen 80 mg/dL (7-18); Calcium 7.5 mg/dL (8.5-10.1); Carbon Dioxide 19.5 meq/L (21.0-32.0); Chloride 109 meq/L (98-107); Glomerular Filtration Rate 8 mL/min (>89); Glucose,Random 99 mg/dL (74-106); Magnesium 1.3 mg/dL (1.5-2.5); Potassium 4.9 meq/L (3.5-5.1); Sodium 138 meq/L (136-145)
[2018-06-01 05:32] LABS: Alanine Aminotransferase 15 U/L (12-78); Phosphorus 3.9 mg/dL (2.5-4.9)
[2018-06-01 05:34] LABS: Alkaline Phosphatase 75 U/L (45-117); Total Protein 4.6 g/dL (6.4-8.2)
[2018-06-01] MEDS: Fosphenytoin Inj 200 MGPE in Sodium Chlor 0.9% Inj 50 ML IV.SIG SCH ×3 (05:34→22:58)
[2018-06-01] MEDS: Levothyroxine 100 MCG Tablet PO SCH (05:35)
[2018-06-01] MEDS: Levothyroxine 75 MCG Tablet PO SCH (05:44)
[2018-06-01] MEDS: Sod Chloride 0.9% Inj 1,000 ML IV.CONT SCH (07:05)
[2018-06-01 07:11] LABS: ABG Base Excess -8.1 mmol/L (-2-2); ABG PCO2 37 mmHg (38-42); ABG PO2 88 mmHg (61-120)
--- NOTE | 2018-06-01 08:25 | P.DIET ---
Nutritional Evaluation Type of nutrition evaluation: initial Nutrition consult regarding: Tube Feeding Nutrition screening: [employer] [facility] [employer] Objective - Diagnosis AMS, UTI, Acute Respiratory Failure - Objective [place] body weight: 76 kg % IBW: 161 Body Weight Used for Calculations: IBW (75.5kg) Energy Needs - Lower Range (kCal/kg): 25 Energy Needs - Upper Range (kCal/kg): 30 Lower Limit kCal/kg (kCals): 1,888 Upper Limit kCal/kg (kCals): 2,265 Lower Limit Protein Factor (Grams per Kg): 1 Upper Limit Protein Factor (Grams per Kg): 1.2 Lower Protein Needs (Protein): 75 Upper Protein Needs (Protein): 91 Dietitian Reviewed in Medical Record: Curent medications, Intake & Output, Labs , Medical history, Tube feeding Wound Care Note: 05/31 moisture/friction related skin injuries on buttocks Objective Comments: PMH: Extensive, see critical care H+P Meds include: Vitamin C, Lipitor, Ferrous Sulfate, Lactulose, Synthroid, Fentanyl/Propofol/Versed Labs include: Hgb 7.6, Hct 22.6, Cr 6.53, Mg 1.3, Glucose 99 Assessment Assessment: Pt at nutritional risk r/t current clinical status and need for a TF for nutrition support. Pt intubated and sedated, propofol adds kcals when running. Noted pt with severe Stage IV CKD. TF Nepro started, recommend a goal rate of 50 ml/hr for 22 hrs, hold for one hour before and after Synthroid is given. This will provide pt 1980kcals, 89gms protein and 799mls free water. This TF rate provides 0.75gms protein/kg actual body wt which is appropriate for Stage IV CKD. Will monitor TF tolerance, clinical course. Recommendations: TF Nepro with goal rate 50 ml/hr (hold one hr before and after Synthroid). Dietitian to Monitor: Lab values, Renal labs, Intake & Output, Tube feeding tolerance, Weight change, Medical course
[2018-06-01] MEDS: Mupirocin 2% Nasal Oint Topical Syringe EACH NARE SCH ×2 (08:44→20:36)
[2018-06-01] MEDS: Pregabalin 75 MG Capsule PO SCH ×2 (08:44→20:35)
[2018-06-01] MEDS: Ascorbic Acid 500 MG Tablet PO SCH (08:44)
[2018-06-01] MEDS: Ferrrous Sulfate 300 MG/5 ML UDC PO SCH (08:44)
[2018-06-01] MEDS: Polyethylene Glycol 3350 17 GM Packet NG/OG SCH ×2 (08:44→20:35)
[2018-06-01] MEDS: Clotrimazole 1% Cream 15 GM Tube TOPICAL SCH ×2 (08:45→20:36)
[2018-06-01] MEDS: Hypromellose 0.3% Opth Gel 10 GM Bottle EACH EYE SCH ×2 (08:45→20:36)
[2018-06-01] MEDS: Sucralfate 1 GM Tablet PO SCH ×3 (08:45→17:10)
--- NOTE | 2018-06-01 11:14 | MB ---
cc: Nnamdi Balderas MD DATE: 06/01/2018 HISTORY OF PRESENT ILLNESS: The patient is a 72-year-old man seen by Dr. Ashton in 2010 from Neurology. Not cooperating. Change in mental status. Alcoholic liver cirrhosis, COPD, hypertension, Afib, type 2 diabetes, gout, alcohol dependency, remote history of stroke, chronic kidney disease. He was saying 1 or 2 words. 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 CRP was elevated at 26. He had a chronic progressive encephalopathy. EEG was negative. He appeared to improve and was subsequently discharged. An MRI of the brain at that time showed nothing new. Carotid ultrasound at that time showed a right internal carotid artery occlusion. MRA igiugig of [place] back then showed occlusion of the right internal carotid artery in the neck, some filling distal right ICA prior to its bifurcation. The right intracranial circulation fills via the anterior communicating artery. He has a history of a negative RPR, rheumatoid factor, negative DIETER, negative urine drug screens. He has had some urinary tract infections before. He has had some normal LFTs. He has had an elevated troponin back in March of this year with a sugar of 480 at that time. He has had an elevated LDL in 2010 with a low B12 of 270 at that time with a normal folate and elevated TSH. Back in 2010, his creatinine was 1.4, and it has slowly come up over time. In March, it was 3.2. Nevertheless, the patient was seen here on April 01 in the ER, [facility]. Had some chest tightness at that time. He was [facility] [place], refusing to give antibiotics for UTI to the [facility] and supposed to be discharged. I thought he had atypical chest pain. He had a recent stenting of his heart. They noted he had atrial fibrillation. Some lightheadedness and chest pain. Seen by Cardiology, and then he was just admitted here 05/30/2018. Living at [facility], with a history of fibromyalgia, dementia, stroke, obstructive sleep apnea, chronic Afib, COPD, chronic kidney disease stage IV, BPH, diabetes, nephrolithiasis, liver cirrhosis, hypertension, hyperlipidemia, gout, right internal carotid artery occlusion, hypothyroidism, dysphagia, constipation, double vision, CABG x2, cardiac stent, liver biopsy, chronic benzodiazepine use. Found on the floor between his bed and the window. Head was against the dresser. Excoriations on his back and knees, right wrist. CAT scan was negative. He was on apixaban and aspirin. He was noted to have a UTI, started on antibiotics, became more confused overnight, was obtunded in the morning. Had hypotension. Creatinine 6.6. He was intubated. PAST MEDICAL HISTORY: As above, and also PTSD, adjustment disorder, hypothyroidism. ALLERGIES: CIPRO, GADOLINIUM, LEVAQUIN, CELEBREX, ZETIA, RED DYE. MEDICINES AT HOME: 1. Xanax 0.25 t.i.d. 2. Sucralfate. 3. Inhalers. 4. Protonix. 5. Ibuprofen p.r.n. 6. Doxycycline. 7. Diltiazem. 8. Clotrimazole. 9. Tamsulosin. 10. Ranolazine. 11. Lyrica 75 b.i.d. 12. Omeprazole. 13. Metoprolol. 14. Meclizine p.r.n. 15. Lisinopril. 16. Thyroid medicine. 17. Insulin. 18. Lasix. 19. Iron. 20. Clonidine. 21. Atorvastatin. 22. Apixaban 2.5 b.i.d. 23. Aspirin. PHYSICAL EXAMINATION: VITAL SIGNS: On exam, he is intubated, 74, 16, 116/66. His temperature is 100.2, generally afebrile. GENERAL: He is mildly obese. NEUROLOGIC: His pupils are equal. He arouses and moves his arms, somewhat in his hands when we try to wake him up, but will not follow any commands. Does not move his eyes. Doll's eyes normal. Left toe may be upgoing, it is hard to say. The right is down. There is no ankle clonus. DTRs are trace. Tone is normal. LABORATORY DATA: CBC: Hemoglobin 7.6, otherwise generally normal. Urine drug screen positive for benzos only. UA had many white blood cell clumps. Creatinine was 6.5. Sodium normal. LFTs normal. TSH slightly low at 0.35. Ammonia level normal. ABG 7.2, 50, 276. Coags normal. He was seen by ID. Septic shock secondary to urinary tract infection, bilateral lung infiltrates, and a CAT scan of his brain done. It was read as negative. Review of the films shows some white matter changes bilaterally. No major intracranial abnormality. IMPRESSION: Probably more metabolic. We will check an EEG and MRI of the brain looks like if we could stop his sedatives, he may be able to do well come off the vent, possibly. The nurse tells me when he was off the sedatives before, he seemed to shake his head yes or no, which is encouraging. Will recheck his B12 level. I will be following him with you in the hospital. Nnamdi Balderas MD DJM/kb , 09:39 AM , 09:49 AM
--- NOTE | 2018-06-01 12:01 | P.PNID ---
Subjective Remarks: Patient is on the ventilator. Currently on vasopressin 6 mcg. Unresponsive. Low-grade fever of 100.4 yesterday evening. Cultures pending. HISTORY OF PRESENT ILLNESS: This is a 72-year-old white male who was brought to the emergency department from [facility] with altered mental status. He was intubated in the emergency department and is currently on the ventilator. He had a decreased blood pressure, as well as increased respiratory rate and was bradycardic and hypothermic with temperature of 94.6 degrees. He had marked decreased urine output and is in acute renal failure. ID consulted for severe sepsis, history of Escherichia faecalis bacteremia, Staphylococcus urinary tract infection. Assist with antibiotic management. Past Medical History: PAST MEDICAL HISTORY: Dementia, diabetes mellitus, hypertension, hypothyroidism, hyperlipidemia, fibromyalgia, benign prostatic hypertrophy, chronic kidney disease stage IV, chronic obstructive pulmonary disease, coronary artery disease, nephrolithiasis, non-ST elevated myocardial infarction, post-traumatic stress disorder, history of nephrostomy, history of coronary stents, history of TURP. Allergies/Adverse Reactions: Allergies ciprofloxacin Allergy (Severe, Verified 05/30/18 23:15) Itching diatrizoate meglumine Allergy (Severe, Verified 05/30/18 23:15) Itching gadobenic acid Allergy (Severe, Verified 05/30/18 23:15) Itching gadodiamide Allergy (Severe, Verified 05/30/18 23:15) Itching gadoteridol Allergy (Severe, Verified 05/30/18 23:15) Itching iodixanol Allergy (Severe, Verified 05/30/18 23:15) Itching iohexol Allergy (Severe, Verified 05/30/18 23:15) Itching levofloxacin Allergy (Severe, Verified 05/30/18 23:15) Itching celecoxib [From Celebrex] Allergy (Unknown, Verified 05/30/18 23:15) Itching ezetimibe [From Zetia] Allergy (Unknown, Verified 05/30/18 23:15) Itching prochlorperazine [From Compazine] Allergy (Unknown, Verified 05/10/18 20:51) Itching red dye Allergy (Unknown, Verified 05/10/18 20:51) Itching Objective Vital Signs 05/31/18 11:57 05/31/18 11:59 05/31/18 12:00 Temperature 99.0 F Pulse Rate 72 70 70 Respiratory Rate 34 H 16 Blood Pressure 105/49 L 105/49 L 105/49 L Pulse Oximetry 88 L 100 05/31/18 12:12 05/31/18 12:27 05/31/18 12:42 Temperature Pulse Rate 71 71 72 Respiratory Rate 16 16 16 Blood Pressure 95/44 L 94/46 L 84/41 L Pulse Oximetry 100 100 100 05/31/18 12:57 05/31/18 13:00 05/31/18 13:12 Temperature Pulse Rate 73 72 74 Respiratory Rate 16 16 16 Blood Pressure 109/51 L 98/38 L 99/46 L Pulse Oximetry 100 100 100 05/31/18 13:27 05/31/18 13:42 05/31/18 13:55 Temperature 99.7 F H Pulse Rate 74 75 75 Respiratory Rate 16 16 16 Blood Pressure 105/50 L 103/48 L 109/53 L Pulse Oximetry 99 100 100 05/31/18 13:57 05/31/18 14:00 05/31/18 14:12 Temperature Pulse Rate 75 75 76 Respiratory Rate 16 16 16 Blood Pressure 109/53 L 113/56 L Pulse Oximetry 100 100 100 05/31/18 14:27 05/31/18 14:42 05/31/18 14:57 Temperature Pulse Rate 76 77 82 Respiratory Rate 16 16 16 Blood Pressure 119/53 L 119/59 L 126/59 L Pulse Oximetry 100 100 97 05/31/18 15:00 05/31/18 15:12 05/31/18 15:27 Temperature 100.2 F H Pulse Rate 81 83 80 Respiratory Rate 7 L 10 L 7 L Blood Pressure 122/55 L 122/55 L 110/56 L Pulse Oximetry 100 100 100 05/31/18 15:42 05/31/18 15:57 05/31/18 16:00 Temperature 100.2 F H Pulse Rate 77 76 70 Respiratory Rate 0 L 0 L 1 L Blood Pressure 112/53 L 110/52 L 110/52 L Pulse Oximetry 100 100 100 05/31/18 16:12 05/31/18 16:27 05/31/18 16:42 Temperature Pulse Rate 76 78 79 Respiratory Rate 0 L 0 L 0 L Blood Pressure 104/55 L 111/55 L 108/55 L Pulse Oximetry 100 100 100 05/31/18 16:57 05/31/18 17:00 05/31/18 17:12 Temperature Pulse Rate 80 80 80 Respiratory Rate 0 L 2 L 0 L Blood Pressure 110/54 L 106/50 L Pulse Oximetry 100 100 100 05/31/18 17:27 05/31/18 17:34 05/31/18 17:48 Temperature Pulse Rate 82 81 82 Respiratory Rate 16 16 16 Blood Pressure 124/54 L 114/57 L Pulse Oximetry 93 L 100 100 05/31/18 17:57 05/31/18 18:00 05/31/18 20:00 Temperature 100.4 F H Pulse Rate 82 83 85 Respiratory Rate 16 16 16 Blood Pressure 105/53 L 107/53 L Pulse Oximetry 100 100 100 05/31/18 20:21 05/31/18 20:24 05/31/18 21:00 Temperature 100.4 F H Pulse Rate 82 85 Respiratory Rate 16 16 16 Blood Pressure 107/53 L Pulse Oximetry 96 100 05/31/18 21:35 06/01/18 00:00 06/01/18 00:23 Temperature 99.7 F H Pulse Rate 66 Respiratory Rate 16 16 Blood Pressure 104/53 L Pulse Oximetry 100 98 100 06/01/18 00:24 06/01/18 01:30 06/01/18 01:45 Temperature Pulse Rate 69 71 71 Respiratory Rate 16 16 16 Blood Pressure 108/55 L 90/42 L Pulse Oximetry 100 100 06/01/18 02:00 06/01/18 02:15 06/01/18 02:30 Temperature Pulse Rate 71 71 72 Respiratory Rate 16 16 18 Blood Pressure 107/52 L 116/57 L 113/53 L Pulse Oximetry 100 100 99 06/01/18 02:45 06/01/18 03:00 06/01/18 03:15 Temperature Pulse Rate 73 73 73 Respiratory Rate 16 16 17 Blood Pressure 107/57 L 104/52 L 109/54 L Pulse Oximetry 100 99 90 L 06/01/18 03:27 06/01/18 03:30 06/01/18 03:45 Temperature Pulse Rate 71 73 74 Respiratory Rate 16 21 16 Blood Pressure 102/73 109/51 L Pulse Oximetry 89 L 100 06/01/18 04:00 06/01/18 04:02 06/01/18 04:15 Temperature 99.0 F Pulse Rate 75 74 Respiratory Rate 18 20 16 Blood Pressure 109/52 L 105/51 L Pulse Oximetry 98 98 100 06/01/18 04:30 06/01/18 04:45 06/01/18 05:00 Temperature Pulse Rate 75 77 78 Respiratory Rate 28 H 19 16 Blood Pressure 85/48 L 105/54 L 110/54 L Pulse Oximetry 92 L 98 06/01/18 05:15 06/01/18 05:30 06/01/18 05:45 Temperature Pulse Rate 78 76 75 Respiratory Rate 16 16 7 L Blood Pressure 114/54 L 104/53 L 106/53 L Pulse Oximetry 97 98 98 06/01/18 06:00 06/01/18 06:15 06/01/18 06:30 Temperature Pulse Rate 75 75 74 Respiratory Rate 13 27 H 16 Blood Pressure 111/54 L 107/53 L 93/46 L Pulse Oximetry 98 96 97 06/01/18 06:45 06/01/18 07:00 06/01/18 07:15 Temperature Pulse Rate 72 72 71 Respiratory Rate 16 16 16 Blood Pressure 98/47 L 91/46 L 95/45 L Pulse Oximetry 100 99 100 06/01/18 07:30 06/01/18 07:44 06/01/18 08:30 Temperature Pulse Rate 71 72 71 Respiratory Rate 16 16 Blood Pressure 94/48 L 104/54 L 99/55 L Pulse Oximetry 98 100 06/01/18 08:45 06/01/18 09:00 06/01/18 09:02 Temperature Pulse Rate 71 73 76 Respiratory Rate 16 23 16 Blood Pressure 114/56 L 115/54 L Pulse Oximetry 100 96 98 06/01/18 09:15 06/01/18 09:30 06/01/18 09:45 Temperature Pulse Rate 77 74 74 Respiratory Rate 16 16 16 Blood Pressure 123/56 L 111/66 103/51 L Pulse Oximetry 94 L 100 100 06/01/18 10:00 06/01/18 10:03 06/01/18 10:30 Temperature 98.6 F Pulse Rate 73 74 80 Respiratory Rate 0 L 6 L 16 Blood Pressure 90/42 L 90/42 L 108/70 Pulse Oximetry 100 99 97 06/01/18 10:45 06/01/18 11:00 06/01/18 11:15 Temperature Pulse Rate 81 83 77 Respiratory Rate 16 16 6 L Blood Pressure 140/61 131/60 115/56 L Pulse Oximetry 98 98 100 Intake & Output 05/31/18 06/01/18 06/01/18 18:59 06:59 18:59 Intake Total 2212.5 / 2212.5 2150 / 2150 1074 / 1074 Output Total 375 / 375 150 / 150 Balance 1837.5 / 1837.5 1999 1074 / 1074 Weight 121.2 kg Intake: IV 2212.5 / 2212.5 1900 / 1900 1074 / 1074 NS Inj 1,000 ML @ 84 mls/hr IV. 1000 / 1000 1000 / 1000 CONT .[id number] [facility] Rx#:[id number] Pitressin Inj 40 UNIT In NS Inj 100 / 100 98 ML @ 0.04 UNITS/MIN 6 mls/ hr IV.CONT CONT [facility] Rx#: [id number] Maxipime Inj 2,000 MG In NS Inj 100 / 100 100 ML @ 200 mls/hr IV.SIG STAT STA Rx#:[id number] Cerebyx Inj 200 MGPE In NS Inj 54 / 54 50 ML @ 216 mls/hr IV.SIG Q8HR [facility] Rx#:[id number] Cerebyx Inj 1,000 MGPE In NS 50 / 50 20 / 20 Inj 50 ML @ 210 mls/hr IV.SIG ONCE ONE Rx#:[id number] Gentamicin Inj 500 MG In NS Inj 112.5 / 112.5 100 ML @ 100 mls/hr IV.SIG ONCE ONE Rx#:[id number] Levophed-Dextrose 4 mg/250 ml 500 / 500 250 / 250 Drip 4 mg In 250 ml @ 2 MCG/MIN 7.5 mls/hr IV.SIG TITRATE PRN Rx#:[id number] NS Inj 1,000 ML @ Wide Open IV. 1000 / 1000 SIG BOLUS ONE Rx#:[id number] NS Inj 500 ML @ 250 mls/hr IV. 500 / 500 500 / 500 SIG .Q2H [facility] Rx#:[id number] Tube Feeding 50 / 50 Tube Irrigant 200 / 200 Output: Urine Amount (Catheter) 375 / 375 150 / 150 Coude 375 / 375 150 / 150 05/31/18 07:45 Blood - Peripheral Aerobic Blood Culture - Preliminary No growth in 1 day 05/31/18 07:45 Blood - Peripheral Anaerobic Blood Culture - Preliminary No growth in 1 day 05/31/18 07:50 Blood - Peripheral Aerobic Blood Culture - Preliminary No growth in 1 day 05/31/18 07:50 Blood - Peripheral Anaerobic Blood Culture - Preliminary No growth in 1 day 05/31/18 00:05 Catheterized Urine Urine Culture - Preliminary gram negative rods 05/31/18 08:10 Sputum - Endotracheal Gram Stain - Final 05/31/18 08:10 Sputum - Endotracheal Sputum Culture - Pending 05/31/18 08:25 Urine - Catheterized Urine Streptococcus pneumoniae Antigen ( M - Final Presumptive negative for streptococcus pneumoniae antigen, suggesting no current or recent infection. Infection due to Streptococcus pneumoniae cannot be ruled out since the antigen present in the sample may be below the detection limit of the test. 05/31/18 08:25 Urine - Catheterized Urine Legionella Antigen - Final Presumptive negative for Legionella pneumophila serogroup 1 antigen in urine, suggesting no recent or recurrent infection. Infection due to Legionella cannot be ruled out since other serogroups and species may cause disease, antigen may not be present in urine in early infection, and the level of antigen present in the urine may be below the detection limit of the test. 05/31/18 11:00 Nasal Wash Influenza Types A,B Antigen - Final Negative for FLU A and B antigen Infection due to influenza A or B cannot be ruled out since the antigen present in the sample may be below the detection limit of the test. Lab - Hematology Results 05/30/18 06/01/18 23:25 04:25 WBC 12.3 H 7.3 RBC 2.76 L 2.35 L Hgb 8.9 L 7.6 L Hct 26.3 L 22.6 L MCV 95.5 95.9 MCH 32.3 32.1 MCHC 33.8 33.5 RDW 13.5 13.7 Plt Count 322 224 D MPV 8.5 8.3 Neut % (Auto) 75.8 H 69.4 Lymph % (Auto) 9.7 13.2 [place] % (Auto) 12.1 H 13.7 H Eos % (Auto) 2.0 3.1 Baso % (Auto) 0.4 0.6 Neut # (Auto) 9.3 H 5.1 Lymph # (Auto) 1.2 1.0 [place] # (Auto) 1.5 H 1.0 H Eos # (Auto) 0.2 0.2 Baso # (Auto) 0.1 0.0 WBC Differential . . Differential Comment Auto diff final Auto diff final Lab - Chemistry Results 05/30/18 05/30/18 05/30/18 23:11 23:25 23:25 Sodium Potassium Chloride Carbon Dioxide Anion Gap BUN Creatinine Estimated GFR POC Glucose 138 H Random Glucose Lactic Acid 0.5 Calcium Prot Corrected Calcium Phosphorus Magnesium Total Bilirubin AST ALT Alkaline Phosphatase Ammonia 24 Total Creatine Kinase Troponin I Total Protein Albumin Vitamin B12 [facility] 05/31/18 05/31/18 05/31/18 00:35 07:25 07:45 Sodium 139 Potassium 4.6 Chloride 107 Carbon Dioxide 20.1 L Anion Gap 12 BUN 75 H Creatinine 6.62 H Estimated GFR 8 L POC Glucose Random Glucose 64 L Lactic Acid Calcium 6.9 L* Prot Corrected Calcium 8.5 Phosphorus Magnesium Total Bilirubin 0.2 AST 15 ALT 16 Alkaline Phosphatase 72 Ammonia 28 Total Creatine Kinase 113 Troponin I 0.05 0.04 Total Protein 4.2 L Albumin 1.9 L Vitamin B12 TSH 0.356 L 05/31/18 05/31/18 05/31/18 08:02 08:26 11:15 Sodium Potassium Chloride Carbon Dioxide Anion Gap BUN Creatinine Estimated GFR POC Glucose 60 L 107 Random Glucose Lactic Acid 0.9 Calcium Prot Corrected Calcium Phosphorus Magnesium Total Bilirubin AST ALT Alkaline Phosphatase Ammonia Total Creatine Kinase Troponin I Total Protein Albumin Vitamin B12 [facility] 05/31/18 05/31/18 05/31/18 13:54 16:50 16:50 Sodium Potassium Chloride Carbon Dioxide Anion Gap BUN Creatinine Estimated GFR POC Glucose 100 Random Glucose Lactic Acid 0.6 Calcium Prot Corrected Calcium Phosphorus Magnesium Total Bilirubin AST ALT Alkaline Phosphatase Ammonia Total Creatine Kinase Troponin I 0.04 Total Protein Albumin Vitamin B12 [facility] 05/31/18 05/31/18 05/31/18 17:13 20:48 20:53 Sodium Potassium Chloride Carbon Dioxide Anion Gap BUN Creatinine Estimated GFR POC Glucose 72 55 L 250 H Random Glucose Lactic Acid Calcium Prot Corrected Calcium Phosphorus Magnesium Total Bilirubin AST ALT Alkaline Phosphatase Ammonia Total Creatine Kinase Troponin I Total Protein Albumin Vitamin B12 [facility] 06/01/18 06/01/18 06/01/18 00:50 01:19 04:25 Sodium 138 Potassium 4.9 Chloride 109 H Carbon Dioxide 19.5 L Anion Gap 10 BUN 80 H Creatinine 6.53 H Estimated GFR 8 L POC Glucose 123 H Random Glucose 99 Lactic Acid 0.7 Calcium 7.5 L Prot Corrected Calcium Phosphorus 3.9 Magnesium 1.3 L Total Bilirubin 0.3 AST 20 ALT 15 Alkaline Phosphatase 75 Ammonia Total Creatine Kinase Troponin I Total Protein 4.6 L Albumin 1.[address] [facility] 06/01/18 06/01/18 06/01/18 04:25 04:25 08:50 Sodium Potassium Chloride Carbon Dioxide Anion Gap BUN Creatinine Estimated GFR POC Glucose 136 H Random Glucose Lactic Acid 0.6 Calcium Prot Corrected Calcium Phosphorus Magnesium Total Bilirubin AST ALT Alkaline Phosphatase Ammonia Total Creatine Kinase Troponin I Total Protein Albumin Vitamin B12 554 TSH 06/01/18 11:35 Sodium Potassium Chloride Carbon Dioxide Anion Gap BUN Creatinine Estimated GFR POC Glucose 142 H Random Glucose Lactic Acid Calcium Prot Corrected Calcium Phosphorus Magnesium Total Bilirubin AST ALT Alkaline Phosphatase Ammonia Total Creatine Kinase Troponin I Total Protein Albumin Vitamin B12 TSH Imaging: ITS Impressions Abdomen/Pelvis CT 05/31/18 00:00 CONCLUSION: 1. No acute abnormality. 2. 7 mm nonobstructing right renal stone. 3. Small bilateral pleural effusions with bibasilar consolidations. This is more pronounced than typical passive atelectasis. Infectious etiology versus pulmonary edema. Head CT 05/31/18 00:00 CONCLUSION: Stable evaluation the brain without evidence of acute infarct, hemorrhage, mass or edema. . Chest X-Ray 05/31/18 05:25 CONCLUSION: Central line as above. Physical Exam: GENERAL: Unresponsive on the ventilator. HEENT: The head is atraumatic. Unable to fully assess. No icterus. Pupils are constricted, but reactive. NECK: No adenopathy or swelling. LUNGS: Bilateral rhonchi. HEART: Irregular rate and rhythm. No murmurs, rubs or gallops are audible. ABDOMEN: Obese, soft, hyperactive bowel sounds. No masses palpable. EXTREMITIES: Trace edema of the upper extremities. No edema of the lower extremities. No clubbing or cyanosis. SKIN: No rash. NEUROLOGIC: Unable to assess. PSYCHIATRIC: Unable to assess. Assessment and Plan - Plan IMPRESSION: 1. Septic shock, probably secondary to urinary infection. Temperature and white blood cell count is improved. 2. Urinary tract infection. Urine culture has gram-negative della. 3. Acute respiratory failure. 4. Acute kidney disease. 5. Bilateral lung infiltrates, which could be congestive heart failure versus bilateral pneumonia. RECOMMENDATIONS: 1. Continue cefepime every 24 hours because of his kidney function. 2. Avoid nephrotoxic antibiotics like gentamicin. 3. Follow blood cultures. 4. Follow urine culture. 5. Follow up sputum cultures. 6. Monitor clinical status. Dr. Cristina Marcelino covering this weekend.
--- NOTE | 2018-06-01 12:29 | P.PNCC ---
Subjective Subjective Remarks/Hospital Course: 05/31: This is a 72-year-old male. He is a resident of [facility] and [facility]. Date of admission 05/30/2018. Originally admitted to hospitalist service and now under our service 05/31/2018. Past medical history includes fibromyalgia, dementia, history of CVA, obstructive sleep apnea, atrial fibrillation/chronic, COPD, chronic kidney disease stage IV, BPH, diabetes mellitus, elevated BMI, atherosclerotic vascular disease, nephrolithiasis, liver cirrhosis, essential hypertension, hyperlipidemia, gout, history of right ice C occlusion, hypothyroidism, dysphagia, constipation, diplopia, CABG 2, TURP, cardiac stent, right percutaneous lithotripsy, liver biopsy and bilateral hand surgery. Patient is also on chronic benzodiazepines. Patient presented to [facility] on 05/30/2018 with history of being found on the floor between his bed in the window. His head was against the dresser. He was able to tell if he hit his head. There is a large amount about was in the floor but not bleeding from the head. He has excoriations on his back and his left knee and right wrist. CT brain at this facility was negative. Patient is on apixaban and aspirin at home. Patient was noted to have a urinary tract infection was started on cefepime and gentamicin by ED physician. Throughout the night, patient became more confused and is found to be obtunded earlier this morning was intubated and centralized placed due to hypotension. He is currently on norepinephrine drip at 12 mcg/min. Troponin was 0.05. Patient had a leukocytosis, normocytic anemia, creatinine 6.6/ baseline around 2.5 and TSH is 0.356. We are asked to admit the patient at this time. He is currently intubated and arousable in room C 25 in ED. No family available. 06/01: Remains sedated, orally intubated on mechanical ventilation. Had generalized tonic-clonic movements which were questionable last night for which he was given Ativan 4 mg IV and loaded with Cerebyx. EEG this morning pending. Neurology consult noted. Head CT negative for bleed. Negligible urine output. Worsening BUN/creatinine. On vasopressin low-dose currently, off all other pressors. Objective Vital Signs / I&O: Vital Signs 05/31/18 12:12 05/31/18 12:27 05/31/18 12:42 Temperature Pulse Rate 71 71 72 Respiratory Rate 16 16 16 Blood Pressure 95/44 L 94/46 L 84/41 L Pulse Oximetry 100 100 100 05/31/18 12:57 05/31/18 13:00 05/31/18 13:12 Temperature Pulse Rate 73 72 74 Respiratory Rate 16 16 16 Blood Pressure 109/51 L 98/38 L 99/46 L Pulse Oximetry 100 100 100 05/31/18 13:27 05/31/18 13:42 05/31/18 13:55 Temperature 99.7 F H Pulse Rate 74 75 75 Respiratory Rate 16 16 16 Blood Pressure 105/50 L 103/48 L 109/53 L Pulse Oximetry 99 100 100 05/31/18 13:57 05/31/18 14:00 05/31/18 14:12 Temperature Pulse Rate 75 75 76 Respiratory Rate 16 16 16 Blood Pressure 109/53 L 113/56 L Pulse Oximetry 100 100 100 05/31/18 14:27 05/31/18 14:42 05/31/18 14:57 Temperature Pulse Rate 76 77 82 Respiratory Rate 16 16 16 Blood Pressure 119/53 L 119/59 L 126/59 L Pulse Oximetry 100 100 97 05/31/18 15:00 05/31/18 15:12 05/31/18 15:27 Temperature 100.2 F H Pulse Rate 81 83 80 Respiratory Rate 7 L 10 L 7 L Blood Pressure 122/55 L 122/55 L 110/56 L Pulse Oximetry 100 100 100 05/31/18 15:42 05/31/18 15:57 05/31/18 16:00 Temperature 100.2 F H Pulse Rate 77 76 70 Respiratory Rate 0 L 0 L 1 L Blood Pressure 112/53 L 110/52 L 110/52 L Pulse Oximetry 100 100 100 05/31/18 16:12 05/31/18 16:27 05/31/18 16:42 Temperature Pulse Rate 76 78 79 Respiratory Rate 0 L 0 L 0 L Blood Pressure 104/55 L 111/55 L 108/55 L Pulse Oximetry 100 100 100 05/31/18 16:57 05/31/18 17:00 05/31/18 17:12 Temperature Pulse Rate 80 80 80 Respiratory Rate 0 L 2 L 0 L Blood Pressure 110/54 L 106/50 L Pulse Oximetry 100 100 100 08/09/18 17:27 05/31/18 17:34 05/31/18 17:48 Temperature Pulse Rate 82 81 82 Respiratory Rate 16 16 16 Blood Pressure 124/54 L 114/57 L Pulse Oximetry 93 L 100 100 05/31/18 17:57 05/31/18 18:00 05/31/18 20:00 Temperature 100.4 F H Pulse Rate 82 83 85 Respiratory Rate 16 16 16 Blood Pressure 105/53 L 107/53 L Pulse Oximetry 100 100 100 05/31/18 20:21 05/31/18 20:24 05/31/18 21:00 Temperature 100.4 F H Pulse Rate 82 85 Respiratory Rate 16 16 16 Blood Pressure 107/53 L Pulse Oximetry 96 100 05/31/18 21:35 06/01/18 00:00 06/01/18 00:23 Temperature 99.7 F H Pulse Rate 66 Respiratory Rate 16 16 Blood Pressure 104/53 L Pulse Oximetry 100 98 100 06/01/18 00:24 06/01/18 01:30 06/01/18 01:45 Temperature Pulse Rate 69 71 71 Respiratory Rate 16 16 16 Blood Pressure 108/55 L 90/42 L Pulse Oximetry 100 100 06/01/18 02:00 06/01/18 02:15 06/01/18 02:30 Temperature Pulse Rate 71 71 72 Respiratory Rate 16 16 18 Blood Pressure 107/52 L 116/57 L 113/53 L Pulse Oximetry 100 100 99 06/01/18 02:45 06/01/18 03:00 06/01/18 03:15 Temperature Pulse Rate 73 73 73 Respiratory Rate 16 16 17 Blood Pressure 107/57 L 104/52 L 109/54 L Pulse Oximetry 100 99 90 L 06/01/18 03:27 06/01/18 03:30 06/01/18 03:45 Temperature Pulse Rate 71 73 74 Respiratory Rate 16 21 16 Blood Pressure 102/73 109/51 L Pulse Oximetry 89 L 100 06/01/18 04:00 06/01/18 04:02 06/01/18 04:15 Temperature 99.0 F Pulse Rate 75 74 Respiratory Rate 18 20 16 Blood Pressure 109/52 L 105/51 L Pulse Oximetry 98 98 100 06/01/18 04:30 06/01/18 04:45 06/01/18 05:00 Temperature Pulse Rate 75 77 78 Respiratory Rate 28 H 19 16 Blood Pressure 85/48 L 105/54 L 110/54 L Pulse Oximetry 92 L 98 06/01/18 05:15 06/01/18 05:30 06/01/18 05:45 Temperature Pulse Rate 78 76 75 Respiratory Rate 16 16 7 L Blood Pressure 114/54 L 104/53 L 106/53 L Pulse Oximetry 97 98 98 06/01/18 06:00 06/01/18 06:15 06/01/18 06:30 Temperature Pulse Rate 75 75 74 Respiratory Rate 13 27 H 16 Blood Pressure 111/54 L 107/53 L 93/46 L Pulse Oximetry 98 96 97 06/01/18 06:45 06/01/18 07:00 06/01/18 07:15 Temperature Pulse Rate 72 72 71 Respiratory Rate 16 16 16 Blood Pressure 98/47 L 91/46 L 95/45 L Pulse Oximetry 100 99 100 06/01/18 07:30 06/01/18 07:44 06/01/18 08:30 Temperature Pulse Rate 71 72 71 Respiratory Rate 16 16 Blood Pressure 94/48 L 104/54 L 99/55 L Pulse Oximetry 98 100 06/01/18 08:45 06/01/18 09:00 06/01/18 09:02 Temperature Pulse Rate 71 73 76 Respiratory Rate 16 23 16 Blood Pressure 114/56 L 115/54 L Pulse Oximetry 100 96 98 06/01/18 09:15 06/01/18 09:30 06/01/18 09:45 Temperature Pulse Rate 77 74 74 Respiratory Rate 16 16 16 Blood Pressure 123/56 L 111/66 103/51 L Pulse Oximetry 94 L 100 100 06/01/18 10:00 06/01/18 10:03 06/01/18 10:30 Temperature 98.6 F Pulse Rate 73 74 80 Respiratory Rate 0 L 6 L 16 Blood Pressure 90/42 L 90/42 L 108/70 Pulse Oximetry 100 99 97 06/01/18 10:45 06/01/18 11:00 06/01/18 11:15 Temperature Pulse Rate 81 83 77 Respiratory Rate 16 16 6 L Blood Pressure 140/61 131/60 115/56 L Pulse Oximetry 98 98 100 Intake & Output 05/31/18 06/01/18 06/01/18 18:59 06:59 18:59 Intake Total 2212.5 / 2212.5 2150 / 2150 1074 / 1074 Output Total 375 / 375 150 / 150 Balance 1837.5 / 1837.5 1999 1074 / 1074 Weight 121.2 kg Intake: IV 2212.5 / 2212.5 1900 / 1900 1074 / 1074 NS Inj 1,000 ML @ 84 mls/hr IV. 1000 / 1000 1000 / 1000 CONT .[id number] [facility] Rx#:[id number] Pitressin Inj 40 UNIT In NS Inj 100 / 100 98 ML @ 0.04 UNITS/MIN 6 mls/ hr IV.CONT CONT [facility] Rx#: [id number] Maxipime Inj 2,000 MG In NS Inj 100 / 100 100 ML @ 200 mls/hr IV.SIG STAT STA Rx#:[id number] Cerebyx Inj 200 MGPE In NS Inj 54 / 54 50 ML @ 216 mls/hr IV.SIG Q8HR [facility] Rx#:[id number] Cerebyx Inj 1,000 MGPE In NS 50 / 50 20 / 20 Inj 50 ML @ 210 mls/hr IV.SIG ONCE ONE Rx#:[id number] Gentamicin Inj 500 MG In NS Inj 112.5 / 112.5 100 ML @ 100 mls/hr IV.SIG ONCE ONE Rx#:[id number] Levophed-Dextrose 4 mg/250 ml 500 / 500 250 / 250 Drip 4 mg In 250 ml @ 2 MCG/MIN 7.5 mls/hr IV.SIG TITRATE PRN Rx#:[id number] NS Inj 1,000 ML @ Wide Open IV. 1000 / 1000 SIG BOLUS ONE Rx#:[id number] NS Inj 500 ML @ 250 mls/hr IV. 500 / 500 500 / 500 SIG .Q2H [facility] Rx#:[id number] Tube Feeding 50 / 50 Tube Irrigant 200 / 200 Output: Urine Amount (Catheter) 375 / 375 150 / 150 Coude 375 / 375 150 / 150 Result Diagrams: 06/01/18 04:25 06/01/18 04:25 Other Results: Laboratory Results - last 24 hr 05/31/18 05/31/18 05/31/18 00:05 11:00 13:54 WBC RBC Hgb Hct MCV MCH MCHC RDW Plt Count MPV Neut % (Auto) Lymph % (Auto) [place] % (Auto) Eos % (Auto) Baso % (Auto) Neut # (Auto) Lymph # (Auto) [place] # (Auto) Eos # (Auto) Baso # (Auto) WBC Differential Differential Comment PT INR APTT Puncture Site Patient Temperature O2 Saturation ABG pH ABG pCO2 ABG pO2 ABG HCO3 ABG O2 Content ABG Base Excess ABG Methemoglobin Maurice Test Hemoglobin Carboxyhemoglobin O2 Delivery Device Vent Setting Inspired O2 Critical Value Sodium Potassium Chloride Carbon Dioxide Anion Gap BUN Creatinine Estimated GFR POC Glucose 100 Random Glucose Lactic Acid Calcium Phosphorus Magnesium Total Bilirubin AST ALT Alkaline Phosphatase Troponin I Total Protein Albumin Vitamin B12 Urine Color Yellow Urine Clarity Turbid H Urine pH 6.0 Ur Specific Alba 1.012 Urine Protein 100 H Urine Glucose (UA) Negative Urine Ketones Negative Urine Occult Blood Moderate H Urine Nitrate Negative Urine Bilirubin Negative Urine Urobilinogen Less than 2 Ur Leukocyte Esterase Moderate H Urine RBC 19 H Urine WBC Urine WBC Clumps Many H Ur Squamous Epith Cells 4 Micro UA Comment Cath-culture ind Urine Culture Comments Cath-cult indicated Ur Random Creatinine Ur Random Sodium Nasal Screen MRSA (PCR) Mrsa detected 05/31/18 05/31/18 05/31/18 16:50 16:50 17:13 WBC RBC Hgb Hct MCV MCH MCHC RDW Plt Count MPV Neut % (Auto) Lymph % (Auto) [place] % (Auto) Eos % (Auto) Baso % (Auto) Neut # (Auto) Lymph # (Auto) [place] # (Auto) Eos # (Auto) Baso # (Auto) WBC Differential Differential Comment PT INR APTT Puncture Site Patient Temperature O2 Saturation ABG pH ABG pCO2 ABG pO2 ABG HCO3 ABG O2 Content ABG Base Excess ABG Methemoglobin Maurice Test Hemoglobin Carboxyhemoglobin O2 Delivery Device Vent Setting Inspired O2 Critical Value Sodium Potassium Chloride Carbon Dioxide Anion Gap BUN Creatinine Estimated GFR POC Glucose 72 Random Glucose Lactic Acid 0.6 Calcium Phosphorus Magnesium Total Bilirubin AST ALT Alkaline Phosphatase Troponin I 0.04 Total Protein Albumin Vitamin B12 Urine Color Urine Clarity Urine pH Ur Specific Alba Urine Protein Urine Glucose (UA) Urine Ketones Urine Occult Blood Urine Nitrate Urine Bilirubin Urine Urobilinogen Ur Leukocyte Esterase Urine RBC Urine WBC Urine WBC Clumps Ur Squamous Epith Cells Micro UA Comment Urine Culture Comments Ur Random Creatinine Ur Random Sodium Nasal Screen MRSA (PCR) 05/31/18 05/31/18 06/01/18 20:48 20:53 00:10 WBC RBC Hgb Hct MCV MCH MCHC RDW Plt Count MPV Neut % (Auto) Lymph % (Auto) [place] % (Auto) Eos % (Auto) Baso % (Auto) Neut # (Auto) Lymph # (Auto) [place] # (Auto) Eos # (Auto) Baso # (Auto) WBC Differential Differential Comment PT INR APTT Puncture Site Patient Temperature O2 Saturation ABG pH ABG pCO2 ABG pO2 ABG HCO3 ABG O2 Content ABG Base Excess ABG Methemoglobin Maurice Test Hemoglobin Carboxyhemoglobin O2 Delivery Device Vent Setting Inspired O2 Critical Value Sodium Potassium Chloride Carbon Dioxide Anion Gap BUN Creatinine Estimated GFR POC Glucose 55 L 250 H Random Glucose Lactic Acid Calcium Phosphorus Magnesium Total Bilirubin AST ALT Alkaline Phosphatase Troponin I Total Protein Albumin Vitamin B12 Urine Color Urine Clarity Urine pH Ur Specific Alba Urine Protein Urine Glucose (UA) Urine Ketones Urine Occult Blood Urine Nitrate Urine Bilirubin Urine Urobilinogen Ur Leukocyte Esterase Urine RBC Urine WBC Urine WBC Clumps Ur Squamous Epith Cells Micro UA Comment Urine Culture Comments Ur Random Creatinine 265 Ur Random Sodium 21 Nasal Screen MRSA (PCR) 06/01/18 06/01/18 06/01/18 00:50 01:19 04:25 WBC 7.3 RBC 2.35 L Hgb 7.6 L Hct 22.6 L MCV 95.9 MCH 32.1 MCHC 33.5 RDW 13.7 Plt Count 224 D MPV 8.3 Neut % (Auto) 69.4 Lymph % (Auto) 13.2 [place] % (Auto) 13.7 H Eos % (Auto) 3.1 Baso % (Auto) 0.6 Neut # (Auto) 5.1 Lymph # (Auto) 1.0 [place] # (Auto) 1.0 H Eos # (Auto) 0.2 Baso # (Auto) 0.0 WBC Differential . Differential Comment Auto diff final PT INR APTT Puncture Site Patient Temperature O2 Saturation ABG pH ABG pCO2 ABG pO2 ABG HCO3 ABG O2 Content ABG Base Excess ABG Methemoglobin Maurice Test Hemoglobin Carboxyhemoglobin O2 Delivery Device Vent Setting Inspired O2 Critical Value Sodium Potassium Chloride Carbon Dioxide Anion Gap BUN Creatinine Estimated GFR POC Glucose 123 H Random Glucose Lactic Acid 0.7 Calcium Phosphorus Magnesium Total Bilirubin AST ALT Alkaline Phosphatase Troponin I Total Protein Albumin Vitamin B12 Urine Color Urine Clarity Urine pH Ur Specific Alba Urine Protein Urine Glucose (UA) Urine Ketones Urine Occult Blood Urine Nitrate Urine Bilirubin Urine Urobilinogen Ur Leukocyte Esterase Urine RBC Urine WBC Urine WBC Clumps Ur Squamous Epith Cells Micro UA Comment Urine Culture Comments Ur Random Creatinine Ur Random Sodium Nasal Screen MRSA (PCR) 06/01/18 06/01/18 06/01/18 04:25 04:25 04:25 WBC RBC Hgb Hct MCV MCH MCHC RDW Plt Count MPV Neut % (Auto) Lymph % (Auto) [place] % (Auto) Eos % (Auto) Baso % (Auto) Neut # (Auto) Lymph # (Auto) [place] # (Auto) Eos # (Auto) Baso # (Auto) WBC Differential Differential Comment PT 12.2 H INR 1.2 APTT 36.4 H Puncture Site Patient Temperature O2 Saturation ABG pH ABG pCO2 ABG pO2 ABG HCO3 ABG O2 Content ABG Base Excess ABG Methemoglobin Maurice Test Hemoglobin Carboxyhemoglobin O2 Delivery Device Vent Setting Inspired O2 Critical Value Sodium 138 Potassium 4.9 Chloride 109 H Carbon Dioxide 19.5 L Anion Gap 10 BUN 80 H Creatinine 6.53 H Estimated GFR 8 L POC Glucose Random Glucose 99 Lactic Acid 0.6 Calcium 7.5 L Phosphorus 3.9 Magnesium 1.3 L Total Bilirubin 0.3 AST 20 ALT 15 Alkaline Phosphatase 75 Troponin I Total Protein 4.6 L Albumin 1.9 L Vitamin B12 Urine Color Urine Clarity Urine pH Ur Specific [place] Urine Protein Urine Glucose (UA) Urine Ketones Urine Occult Blood Urine Nitrate Urine Bilirubin Urine Urobilinogen Ur Leukocyte Esterase Urine RBC Urine WBC Urine WBC Clumps Ur Squamous Epith Cells Micro UA Comment Urine Culture Comments Ur Random Creatinine Ur Random Sodium Nasal Screen MRSA (PCR) 06/01/18 06/01/18 06/01/18 04:25 06:35 08:50 WBC RBC Hgb Hct MCV MCH MCHC RDW Plt Count MPV Neut % (Auto) Lymph % (Auto) [place] % (Auto) Eos % (Auto) Baso % (Auto) Neut # (Auto) Lymph # (Auto) [place] # (Auto) Eos # (Auto) Baso # (Auto) WBC Differential Differential Comment PT INR APTT Puncture Site Right radial Patient Temperature 98.6 O2 Saturation 94 ABG pH 7.29 L* ABG pCO2 37 L ABG pO2 88 ABG HCO3 17 L ABG O2 Content 10.4 L ABG Base Excess -8.1 L ABG Methemoglobin 1.4 Maurice Test Present Hemoglobin 7.8 L Carboxyhemoglobin 1.4 O2 Delivery Device Ventilator Vent Setting Prvc/ac Inspired O2 40 Critical Value Yes Sodium Potassium Chloride Carbon Dioxide Anion Gap BUN Creatinine Estimated GFR POC Glucose 136 H Random Glucose Lactic Acid Calcium Phosphorus Magnesium Total Bilirubin AST ALT Alkaline Phosphatase Troponin I Total Protein Albumin Vitamin B12 554 Urine Color Urine Clarity Urine pH Ur Specific [place]ba Urine Protein Urine Glucose (UA) Urine Ketones Urine Occult Blood Urine Nitrate Urine Bilirubin Urine Urobilinogen Ur Leukocyte Esterase Urine RBC Urine WBC Urine WBC Clumps Ur Squamous Epith Cells Micro UA Comment Urine Culture Comments Ur Random Creatinine Ur Random Sodium Nasal Screen MRSA (PCR) 06/01/18 11:35 WBC RBC Hgb Hct MCV MCH MCHC RDW Plt Count MPV Neut % (Auto) Lymph % (Auto) [place] % (Auto) Eos % (Auto) Baso % (Auto) Neut # (Auto) Lymph # (Auto) [place] # (Auto) Eos # (Auto) Baso # (Auto) WBC Differential Differential Comment PT INR APTT Puncture Site Patient Temperature O2 Saturation ABG pH ABG pCO2 ABG pO2 ABG HCO3 ABG O2 Content ABG Base Excess ABG Methemoglobin Maurice Test Hemoglobin Carboxyhemoglobin O2 Delivery Device Vent Setting Inspired O2 Critical Value Sodium Potassium Chloride Carbon Dioxide Anion Gap BUN Creatinine Estimated GFR POC Glucose 142 H Random Glucose Lactic Acid Calcium Phosphorus Magnesium Total Bilirubin AST ALT Alkaline Phosphatase Troponin I Total Protein Albumin Vitamin B12 Urine Color Urine Clarity Urine pH Ur Specific [place] Urine Protein Urine Glucose (UA) Urine Ketones Urine Occult Blood Urine Nitrate Urine Bilirubin Urine Urobilinogen Ur Leukocyte Esterase Urine RBC Urine WBC Urine WBC Clumps Ur Squamous Epith Cells Micro UA Comment Urine Culture Comments Ur Random Creatinine Ur Random Sodium Nasal Screen MRSA (PCR) Imaging: Chest X-Ray 05/30/18 23:18 CONCLUSION: Clear lungs. Head CT 05/30/18 23:18 CONCLUSION: 1. Negative CT Head non contrast. . Abdomen/Pelvis CT 05/31/18 00:00 CONCLUSION: 1. No acute abnormality. 2. 7 mm nonobstructing right renal stone. 3. Small bilateral pleural effusions with bibasilar consolidations. This is more pronounced than typical passive atelectasis. Infectious etiology versus pulmonary edema. Head CT 05/31/18 00:00 CONCLUSION: Stable evaluation the brain without evidence of acute infarct, hemorrhage, mass or edema. . Chest X-Ray 05/31/18 05:25 CONCLUSION: Central line as above. Objective Remarks: GENERAL: 72-year-old male currently orotracheally intubated SKIN: Warm and dry. Excoriations on back, will left knee anteriorly and right wrist HEAD: Atraumatic. Normocephalic. EYES: Pupils equal and round bilaterally and minimally reactive. No scleral icterus. No injection or drainage. ENT: No nasal bleeding or discharge. Mucous membranes pink and moist. NECK: Trachea midline. No JVD. CARDIOVASCULAR: Tachycardic, IR. S1, S2 predose for without murmur. RESPIRATORY: His breath sounds due to body habitus. Few crackles patient bases bilaterally. GASTROINTESTINAL: Abdomen soft, non-tender, obese. Hypoactive bowel sounds appreciated. MUSCULOSKELETAL: Extremities trace bilateral lower extremity edema. No obvious deformities. NEUROLOGICAL: Currently sedated on the ventilator on propofol drip. Withdraws all 4 extremity spontaneously. Positive gag, cough and corneal reflex. Assessment and Plan - Assessment and Plan Plan: Neuro/Psych: Acute encephalopathy likely toxic metabolic secondary to severe sepsis Chronic benzodiazepine use CVA Dementia disorder NOS History of fibromyalgia Adjustment disorder with depressive features History of diplopia Currently on propofol/fentanyl drips for sedation/analgesia while intubated Goal of RASS of -[address] brain on admission revealed no acute intracranial findings Continue pregabalin 75 mg twice daily for peripheral neuropathy. Holding alprazolam 0.25 mg 3 times daily for anxiety. Questionable seizure last night, loaded with Cerebyx. EEG pending. Neuro consult noted. Repeat Head CT negative for bleed. 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 Follow CVP Currently norepinephrine drip at 12 mcg/min to maintain mean artery pressure greater than equal to 65 2D echo 07/09 revealed EF of 40-45%. LV dilatation. PAP 31 mmHg. Basilar inferolateral and inferior lateral hypokinesis. Repeat echocardiogram limited ordered 05/31 Initial troponin 0 0.05. Cycle 2 Cycle lactates every 6 hours 4 Heart catheterization 09/08 revealed patent LAURA to LAD and SVG to RCA. 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 Resp: Acute respiratory failure History of WERNER History of COPD Prior history of tobaccoism [facility] 16/550/ Ventilator bundle Albuterol/ipratropium aerosols every 4 hours with albuterol aerosols every 2 hours as needed for dyspnea Post intubation chest x-ray reveals patchy infiltrate right midlung region. Adequacy of the ET tube and central line Holding Tiotropium 80 mg daily while on ipratropium GI: Gastroesophageal reflux disease history of gastric ulcer Constipation Hypoalbuminemia History of dysphasia History of liver biopsy with diagnosis of cirrhosis? OGT to LIWS Lansoprazole/sucralfate for GI prophylaxis. Patient is on omeprazole/ pantoprazole? Daily at retirement. Polyethylene glycol 17 g twice daily for bowel regimen : BPH status post TURP History of nephrolithiasis status post right percutaneous lithotripsy 2004 Resume tamsulosin 0.4 mg daily when able Maintain [place] catheter for accurate I's and O's Endo: Diabetes mellitus 1.5 treat as 1.0 Hypothyroidism History of gout Holding insulin glargine 25 units twice daily and aspirin 8100 3 times daily with meals. Sliding-scale insulin with aspart insulin/high regimen with Accu-Cheks every 4 hours to maintain euglycemia Decrease levothyroxine from 200-175 mg daily. TSH was 0.356. Renal: Acute kidney injury in the setting of chronic kidney disease stage IV abdomen/pelvis CT with nonobstructing right renal stone Check urine electrolytes and eosinophils Avoid nephrotoxic drug\ Monitor urine output with accurate I's and O's. Possible need hemodialysis. Ordered bicarb gtt for metabolic acidosis. Consulted nephrology for further evaluation Heme: Leukocytosis Normocytic anemia/anemia of chronic kidney disease Chronic apixaban use 2.5 mg twice daily Resume apixaban 2.5 mg twice daily Monitor CBC daily. Follow trends. No indication for transfusion of blood products at this time. Type and screen ID: History of Enterococcus faecalis bacteremia History of staph saprophyticus urinary tract infection Received cefepime and gentamicin in the ED. We will treat with cefepime 500 mg daily/renally dosed Infectious disease was consulted for further antibiotic recommendations/ management CT abdomen/pelvis with nonobstructing right renal stone Holding doxycycline 100 mg twice daily/home medication Resume clotrimazole 1% to affected areas twice daily. Blood cultures 2 05/31 pending UA pending Sputum pending Influenza a and B pending Legionella and pneumococcal urinary antigens pending MSK: Elevated BMI Weight loss encouraged FEN: Replace electrolytes as clinically indicated Currently normal saline at 84 cc an hour Access -Left subclavian CVL day (05/31) placed by ED physician Prophylaxis -GI -lansoprazole/sucralfate -DVT -SCD/apixaban will provide DVT prophylaxis Consult palliative care to assist with deciding goals of therapy. Critical care 35 minutes admission
[2018-06-01] MEDS ORDERED: Sodium Bicarbonate 8.4% Inj 150 MEQ in Water for Inj, Sterile 850 ML IV.CONT SCH (13:00)
--- NOTE | 2018-06-01 14:38 | MR ---
EXAM DATE: 06/01/2018 2:25 PM EDT AGE/SEX: 72 years / Male INDICATIONS: CVA. CLINICAL DATA: This is the patient's initial encounter. Patient reports that signs and symptoms have been present for 1 day and indicates a pain score of Nonresponsive. MEDICAL/SURGICAL HISTORY: Non-responsive. Non-responsive. [place]PAR[place] [facility] [place] 10/20/2011. . TECHNIQUE: Multiplanar, multisequence examination of the brain was performed without contrast. FINDINGS: Cerebrum: The ventricles are normal for age. No evidence of midline shift, mass lesion, hemorrhage or acute infarction. No extraaxial fluid collections are seen. The pituitary gland and suprasellar cistern are normal in configuration. White Matter: Scattered T2 hyperintense foci throughout are seen in the white matter. Posterior Fossa: The cerebellum and brainstem are intact. The 4th ventricle is midline. The cerebel lopontine angle is unremarkable. The cerebellar tonsils are normal in position. Diffusion Imaging: No focal areas of restricted diffusion are seen. No evidence of acute infarction . Extracranial: The visualized portions of the orbits and paranasal sinuses are unremarkable. CONCLUSION: 1. No evidence of acute infarct, hemorrhage, mass or edema. 2. Mild cerebral white matter disease characteristic of microvascular ischemic changes. 3. No significant change compared to previous study in 2010 Electronically signed by: Jonn Sorensen MD 06/01/2018 2:36 PM EDT
--- NOTE | 2018-06-01 14:50 | P.CONPAL ---
Consult Service: Palliative Care Requesting Physician: Francisco Diaz Reason for Consult: a. To assist with evaluation and management of symptoms including: Dyspnea, encephalopathy b. To assist medical decision maker(s) with: better understanding of current medical conditions; weighing benefits/burdens of medical treatment options; making medical treatment decisions. Primary Care Provider: Nnamdi Gomez MD History of Present Illness History of Present Illness: This 72-year-old male care home resident, with a past history of diabetes, CAD/[place], COPD, anemia, chronic kidney disease, and paroxysmal atrial fib, was admitted with septic shock. The patient was last admitted here in March of this year with an episode of atrial fib that converted to sinus rhythm. He was sent back to his care home. The patient was reportedly found lethargic and on the floor at the care home on 05/30/18 and he was brought to the emergency department. Findings there included: * Lethargic, confused * Temp 94.6, pulse 52, respirations 20, blood pressure 162/103, oxygen saturation 100% on supplemental O2 * White count 12.3, hemoglobin 8.9 * Sodium 139, creatinine 6.62 (creatinine was 3.3 in March 2018), albumin 1.9 * Urinalysis consistent with UTI * Chest x-ray unremarkable * Head CT scan without acute findings * Abdomen/pelvis CT revealed bibasilar consolidations but no other acute findings In the hours after admission, the patient worsened, became hypotensive, was admitted to intensive care, and was INTUBATED for airway protection. He has remained intubated and sedated since that time. The patient's urine cultures are growing gram-negative rods, the blood cultures are negative after the first day, and his sputum culture is just showing normal xuan. Palliative Care was consulted to assist with symptom management, and to enter into discussions with family regarding the patient's current illnesses, the prognosis, and the benefits and burdens of the various treatment choices. Function/Cognitive Trajectory: The patient has been declining quite a bit over the past year. He has been hospitalized a few times, including a hospitalization last month at [facility]. He has been at a care home for more than a few months, and has reportedly become essentially nonambulatory recently. The son reports that he spoke with the patient at the care home about a month ago and that he was still cognitively sharp at that time. Review of Systems other (History per patient's son, nursing staff, and records) Constitutional: Reports fatigue, Reports weakness Eyes: Denies irritation Ears, Nose, Mouth, and Throat: Denies bleeding gums Cardiovascular: Reports shortness of breath, Denies chest pain Respiratory: Reports cough, Reports shortness of breath Gastrointestinal: Denies black, tarry stools, Denies vomiting blood Genitourinary: Denies blood in urine Musculoskeletal: Denies joint swelling Skin/Breast: Denies bleeding lesions, Denies wounds Neurologic: Reports confusion, Denies convulsions, Denies seizure-like activity Psychiatric: Reports anxiety, Reports depression, Reports other (Prior suicide attempts in old records) Endocrine: Denies flushing Hematologic/Lymphatic: Denies easy bruising Allergic/Immunologic: Denies hives PMFSH - History History Provided By: Medical Record, Public Health Social Worker / EMT - Medical History Medical History: Medical History (Last Reviewed 06/01/18 @ 07:59 by Jonel Barrientos) BPH (benign prostatic hyperplasia) (Acute) Diabetes mellitus (Acute) Sleep apnea (Acute) PTSD (post-traumatic stress disorder) (Acute) COPD (chronic obstructive pulmonary disease) (Acute) Acute on chronic systolic (congestive) heart failure (Acute) Atrial fibrillation (Acute) Atherosclerotic cardiovascular disease (Acute) NSTEMI (non-ST elevated myocardial infarction) (Acute) Adjustment disorder Anginal equivalent Anticoagulant long-term use Chronic kidney disease, stage IV (severe) Chronic use of benzodiazepine for therapeutic purpose Coronary artery disease Dementia Dysphasia Essential hypertension Fibromyalgia Hyperlipidemia Nephrolithiasis Occlusion of right internal carotid artery Hypertension Hypothyroid - Surgical History Surgical History: Surgical History (Last Reviewed 06/01/18 @ 07:59 by Jonel Barrientos) Presence of coronary angioplasty implant and graft (Acute) H/O hand surgery H/O nephrostomy History of liver biopsy S/P TURP S/P coronary artery stent placement - Family History Family History: Family History (Last Updated 06/01/18 @ 14:36 by Angela Salcedo MD) Mother Family history of diabetes mellitus - Tobacco History Second Hand Smoke Exposure: No Tobacco Use In Past 30 Days: No Smoking Status: Former smoker (Quit tobacco 30 years ago) Tobacco Type: Cigarettes Years Smoked: 30 Number of Pack Years (if former smoker): 30 - Alcohol History How Often Do You Have a Drink Containing Alcohol: Never (Quit alcohol 30 years ago with the assistance of AA) - Substance Use History Substance History: No History of Abuse - Travel History Recent Travel in the [place] Within the Last 8 Weeks: No Recent Travel Out of the Country Within the Last 8 Weeks: No - Immunization History Tetanus Immunization: Unsure Hx Influenza Vaccine This Season: Unable to Assess Medications and Allergies Active Medications: Active Medications Albuterol (Albuterol Neb (Prn)) 2.5 mg NEB Q2HR NEB PRN PRN Reason: SHORTNESS OF BREATH/WHEEZING Albuterol (Duoneb Neb (Domingo)) 1 ampul NEB Q4HR NEB [facility] Last Admin: 06/01/18 09:02 Dose: 1 ampul Apixaban (Eliquis) 2.5 mg PO BID [facility] Last Admin: 06/01/18 08:44 Dose: 2.5 mg Artificial Tears (Genteal Severe Dry Eye Relief 0.3% Opth Gel) 1 drops EACH EYE BID [facility] Last Admin: 06/01/18 08:45 Dose: 1 drops Ascorbic Acid (Vitamin C) 500 mg PO DAILY [facility] Last Admin: 06/01/18 08:44 Dose: 500 mg Aspirin (Aspirin Chew) 81 mg PO DAILY [facility] Last Admin: 06/01/18 08:44 Dose: 81 mg Atorvastatin Calcium (Lipitor) 40 mg PO DAILY [facility] Last Admin: 06/01/18 08:44 Dose: 40 mg Bisacodyl (Dulcolax Supp) 10 mg RECTAL DAILY PRN PRN Reason: SEVERE CONSITIPATION Chlorhexidine Gluconate (Chlorhexidine 2% Cloth) 3 pack TOPICAL DAILY@0400 [facility] Stop: 06/06/18 03:59 Last Admin: 06/01/18 03:36 Dose: 3 pack Chlorhexidine Gluconate (Chlorhexidine 2% Cloth) 3 pack TOPICAL DAILY@0400 PRN PRN Reason: Extra cloth needed Stop: 06/06/18 03:59 Chlorhexidine Gluconate (Chlorhexidine 2% Cloth) 3 pack TOPICAL DAILY@0400 [facility] Stop: 06/07/18 03:59 Chlorhexidine Gluconate (Chlorhexidine 2% Cloth) 3 pack TOPICAL DAILY@0400 PRN PRN Reason: Extra cloth needed Stop: 06/07/18 03:59 Clotrimazole (Lotrimin 1% Cream) 1 applicatio TOPICAL BID [facility] Last Admin: 06/01/18 08:45 Dose: 1 applicatio Dextrose (D50w Vial) 50 ml IV.PUSH UNSCH PRN PRN Reason: PER HYPOGLYCEMIA PROTOCOL Last Admin: 05/31/18 21:56 Dose: 50 ml Ferrous Sulfate (Ferrrous Sulfate Liq) 300 mg PO DAILY [facility] Last Admin: 06/01/18 08:44 Dose: 300 mg Glucagon (Glucagon Inj) 1 mg OTHER PRN PRN PRN Reason: for Hypoglycemia Protocol Norepinephrine Bitartrate (Levophed-Dextrose 4 Mg/250 Ml Drip) 4 mg in 250 mls @ 7.5 mls/hr IV.SIG TITRATE PRN; Protocol PRN Reason: Per Protocol Last Titration: 06/01/18 07:04 Dose: 0 mcg/min, 0 mls/hr Fentanyl (Fentanyl 10 Mcg/Ml Premix Drip) 2,500 mcg in 250 mls @ 5 mls/hr IV.SIG TITRATE PRN; Protocol PRN Reason: Per Protocol Last Titration: 06/01/18 07:04 Dose: 0 mcg/hr, 0 mls/hr Propofol (Diprivan 1000 Mg/100 Ml Inj) 1,000 mg in 100 mls @ 4.082 mls/hr IV.CONT TITRATE PRN; Protocol PRN Reason: Per Protocol Last Admin: 06/01/18 13:03 Dose: 10 mcg/kg/min, 8.17 mls/hr Acetaminophen (Ofirmev Inj) 1,000 mg in 100 mls @ 400 mls/hr IV.SIG Q8H PRN PRN Reason: FEVER Vasopressin 40 unit/ Sodium (Chloride) 100 mls @ 6 mls/hr IV.CONT CONT [facility]; Protocol Last Infusion: 06/01/18 07:04 Dose: 0.04 units/min, 6 mls/hr Cefepime HCl 500 mg/ Sodium (Chloride) 100 mls @ 200 mls/hr IV.SIG Q24HR [facility] Midazolam HCl (Versed Inj) 50 mg in 50 mls @ 1 mls/hr IV.CONT TITRATE PRN; Protocol PRN Reason: Per Protocol Fosphenytoin Sodium 200 mgpe/ (Sodium Chloride) 54 mls @ 216 mls/hr IV.SIG Q8HR [facility] Last Infusion: 06/01/18 07:04 Dose: Infused Sodium Bicarbonate 150 meq/ (Sterile Water) 1,000 mls @ 84 mls/hr IV.CONT .[id number] [facility] Last Admin: 06/01/18 13:02 Dose: 84 mls/hr Insulin Aspart (Novolog Insulin Correctional Sugar Inj) 0 unit SQ Q4HR [facility]; Protocol Last Admin: 06/01/18 12:39 Dose: Not Given Lactulose (Lactulose Liq) 30 ml PO DAILY PRN PRN Reason: SEVERE CONSITIPATION Lansoprazole (Prevacid Solutab) 30 mg NG/OG DAILY [facility] Last Admin: 06/01/18 08:44 Dose: 30 mg Levothyroxine Sodium (Synthroid) 100 mcg PO DAILY@0600 [facility] Last Admin: 06/01/18 05:35 Dose: 100 mcg Levothyroxine Sodium (Synthroid) 75 mcg PO DAILY@0600 [facility] Last Admin: 06/01/18 05:44 Dose: 75 mcg Mupirocin (Bactroban 2% Nasal Oint) 1 applicatio EACH NARE BID [facility] Stop: 06/05/18 21:01 Last Admin: 06/01/18 08:44 Dose: 1 applicatio Ondansetron HCl (Zofran Inj) 4 mg IV.PUSH Q6H PRN PRN Reason: NAUSEA OR VOMITING Pt Own Med: Florastor 250mg Po Tid 1 each PO TID [facility] Polyethylene Glycol (Miralax) 17 gm NG/OG BID [facility] Last Admin: 06/01/18 08:44 Dose: 17 gm Pregabalin (Lyrica) 75 mg PO BID [facility] Last Admin: 06/01/18 08:44 Dose: 75 mg Sennosides (Senokot) 17.2 mg PO Q12H PRN PRN Reason: Moderate Constipation Sodium Chloride (Ns Flush) 2 ml IV.FLUSH BID [facility] Last Admin: 06/01/18 08:45 Dose: 2 ml Sodium Chloride (Ns Flush) 2 ml IV.FLUSH PRN PRN PRN Reason: FLUSH AFTER USING IV ACCESS Sucralfate (Carafate) 1 gm PO TIDAC [facility] Last Admin: 06/01/18 12:39 Dose: 1 gm Tamsulosin HCl (Flomax) 0.4 mg PO DAILY [facility] Last Admin: 06/01/18 08:45 Dose: Not Given Allergies Allergy/AdvReac Type Severity Reaction Status Date / Time ciprofloxacin Allergy Severe Itching Verified 05/30/18 23:15 diatrizoate meglumine Allergy Severe Itching Verified 05/30/18 23:15 gadobenic acid Allergy Severe Itching Verified 05/30/18 23:15 gadodiamide Allergy Severe Itching Verified 05/30/18 23:15 gadoteridol Allergy Severe Itching Verified 05/30/18 23:15 iodixanol Allergy Severe Itching Verified 05/30/18 23:15 iohexol Allergy Severe Itching Verified 05/30/18 23:15 levofloxacin Allergy Severe Itching Verified 05/30/18 23:15 celecoxib [From Celebrex] Allergy Unknown Itching Verified 05/30/18 23:15 ezetimibe [From Zetia] Allergy Unknown Itching Verified 05/30/18 23:15 prochlorperazine Allergy Unknown Itching Verified 05/10/18 20:51 [From Compazine] red dye Allergy Unknown Itching Verified 05/10/18 20:51 Home Medications Medication Instructions Recorded Confirmed Type apixaban 2.5 mg PO BID 05/10/18 05/31/18 History aspirin 81 mg PO DAILY 05/10/18 05/31/18 History atorvastatin 40 mg PO DAILY 05/10/18 05/31/18 History bumetanide 2 mg PO DAILY 05/10/18 05/31/18 History ferrous sulfate 325 mg PO DAILY 05/10/18 05/31/18 History furosemide 40 mg PO BID 05/10/18 05/31/18 History insulin aspart U-100 [Novolog 10 unit SUB-Q TIDAC 05/10/18 05/31/18 History U-100 Insulin aspart] insulin glargine 25 unit SUB-Q Q12H PRN 05/10/18 05/31/18 History ipratropium-albuterol 3 ml INHALATION Q4H PRN 05/10/18 05/31/18 History levothyroxine 200 mcg PO DAILY 05/10/18 05/31/18 History lisinopril 40 mg PO DAILY 05/10/18 05/31/18 History meclizine 25 mg PO DAILY PRN 05/10/18 05/31/18 History metoprolol tartrate 100 mg PO BID 05/10/18 05/31/18 History omeprazole 20 mg PO DAILY 05/10/18 05/31/18 History pregabalin [Lyrica] 75 mg PO BID 05/10/18 05/31/18 History ranolazine 500 mg PO Q12H PRN 05/10/18 05/31/18 History tamsulosin 0.4 mg PO DAILY 05/10/18 05/31/18 History Saccharomyces boulardii 250 mg PO TID 05/31/18 05/31/18 History alprazolam 0.25 mg PO TID 05/31/18 05/31/18 History clonidine HCl 0.1 mg PO Q8HR PRN 05/31/18 05/31/18 History clotrimazole 1 applic TOPICAL BID 05/31/18 05/31/18 History diltiazem HCl 120 mg PO DAILY 05/31/18 05/31/18 History doxycycline hyclate 100 mg PO BID 05/31/18 05/31/18 History ibuprofen 800 mg PO Q6H PRN 05/31/18 05/31/18 History pantoprazole 40 mg PO BID 05/31/18 05/31/18 History sucralfate 1 g PO TIDAC 05/31/18 05/31/18 History tiotropium bromide [Spiriva with 1 cap INHALATION DAILY 05/31/18 05/31/18 History HandiHaler] Advance Directives Living Will: No Healthcare Surrogate: No Power of Charter Representative: No Today's verbally stated goals: Patient unable to communicate Family/friends goals: The patient's son reports prior conversations with the patient about end-of- life issues. He remains hopeful that the patient can improve and that the encephalopathy may resolve with time. He reports that his father would be unhappy to end up long-term in a care home and even weaker than he was before. He requests DNR status at this time. Ethical and Legal Issues: There are no ethical issues that would impact his care were decision-making at this time. The patient lacks capacity for decision-making, and it is not known whether he will regain. His son Jonel De La Paz is the healthcare proxy decision-maker at this time. Physical Exam Vital Signs: Vital Signs - 24 hr 05/31/18 14:42 05/31/18 14:57 05/31/18 15:00 Temperature 100.2 F H Pulse Rate 77 82 81 Respiratory Rate 16 16 7 L Blood Pressure 119/59 L 126/59 L 122/55 L Pulse Oximetry 100 97 100 05/31/18 15:12 05/31/18 15:27 05/31/18 15:42 Temperature Pulse Rate 83 80 77 Respiratory Rate 10 L 7 L 0 L Blood Pressure 122/55 L 110/56 L 112/53 L Pulse Oximetry 100 100 100 05/31/18 15:57 05/31/18 16:00 05/31/18 16:12 Temperature 100.2 F H Pulse Rate 76 70 76 Respiratory Rate 0 L 1 L 0 L Blood Pressure 110/52 L 110/52 L 104/55 L Pulse Oximetry 100 100 100 05/31/18 16:27 05/31/18 16:42 05/31/18 16:57 Temperature Pulse Rate 78 79 80 Respiratory Rate 0 L 0 L 0 L Blood Pressure 111/55 L 108/55 L 110/54 L Pulse Oximetry 100 100 100 05/31/18 17:00 05/31/18 17:12 05/31/18 17:27 Temperature Pulse Rate 80 80 82 Respiratory Rate 2 L 0 L 16 Blood Pressure 106/50 L 124/54 L Pulse Oximetry 100 100 93 L 05/31/18 17:34 05/31/18 17:48 05/31/18 17:57 Temperature Pulse Rate 81 82 82 Respiratory Rate 16 16 16 Blood Pressure 114/57 L 105/53 L Pulse Oximetry 100 100 100 05/31/18 18:00 05/31/18 20:00 05/31/18 20:21 Temperature 100.4 F H Pulse Rate 83 85 82 Respiratory Rate 16 16 16 Blood Pressure 107/53 L Pulse Oximetry 100 100 05/31/18 20:24 05/31/18 21:00 05/31/18 21:35 Temperature 100.4 F H Pulse Rate 85 Respiratory Rate 16 16 Blood Pressure 107/53 L Pulse Oximetry 96 100 100 06/01/18 00:00 06/01/18 00:23 06/01/18 00:24 Temperature 99.7 F H Pulse Rate 66 69 Respiratory Rate 16 16 16 Blood Pressure 104/53 L Pulse Oximetry 98 100 06/01/18 01:30 06/01/18 01:45 06/01/18 02:00 Temperature Pulse Rate 71 71 71 Respiratory Rate 16 16 16 Blood Pressure 108/55 L 90/42 L 107/52 L Pulse Oximetry 100 100 100 06/01/18 02:15 06/01/18 02:30 06/01/18 02:45 Temperature Pulse Rate 71 72 73 Respiratory Rate 16 18 16 Blood Pressure 116/57 L 113/53 L 107/57 L Pulse Oximetry 100 99 100 06/01/18 03:00 06/01/18 03:15 06/01/18 03:27 Temperature Pulse Rate 73 73 71 Respiratory Rate 16 17 16 Blood Pressure 104/52 L 109/54 L Pulse Oximetry 99 90 L 06/01/18 03:30 06/01/18 03:45 06/01/18 04:00 Temperature 99.0 F Pulse Rate 73 74 75 Respiratory Rate 21 16 18 Blood Pressure 102/73 109/51 L 109/52 L Pulse Oximetry 89 L 100 98 06/01/18 04:02 06/01/18 04:15 06/01/18 04:30 Temperature Pulse Rate 74 75 Respiratory Rate 20 16 28 H Blood Pressure 105/51 L 85/48 L Pulse Oximetry 98 100 92 L 06/01/18 04:45 06/01/18 05:00 06/01/18 05:15 Temperature Pulse Rate 77 78 78 Respiratory Rate 19 16 16 Blood Pressure 105/54 L 110/54 L 114/54 L Pulse Oximetry 98 97 06/01/18 05:30 06/01/18 05:45 06/01/18 06:00 Temperature Pulse Rate 76 75 75 Respiratory Rate 16 7 L 13 Blood Pressure 104/53 L 106/53 L 111/54 L Pulse Oximetry 98 98 98 06/01/18 06:15 06/01/18 06:30 06/01/18 06:45 Temperature Pulse Rate 75 74 72 Respiratory Rate 27 H 16 16 Blood Pressure 107/53 L 93/46 L 98/47 L Pulse Oximetry 96 97 100 06/01/18 07:00 06/01/18 07:15 06/01/18 07:30 Temperature Pulse Rate 72 71 71 Respiratory Rate 16 16 16 Blood Pressure 91/46 L 95/45 L 94/48 L Pulse Oximetry 99 100 98 06/01/18 07:44 06/01/18 08:30 06/01/18 08:45 Temperature Pulse Rate 72 71 71 Respiratory Rate 16 16 Blood Pressure 104/54 L 99/55 L 114/56 L Pulse Oximetry 100 100 06/01/18 09:00 06/01/18 09:02 06/01/18 09:15 Temperature Pulse Rate 73 76 77 Respiratory Rate 23 16 16 Blood Pressure 115/54 L 123/56 L Pulse Oximetry 96 98 94 L 06/01/18 09:30 06/01/18 09:45 06/01/18 10:00 Temperature 98.6 F Pulse Rate 74 74 73 Respiratory Rate 16 16 0 L Blood Pressure 111/66 103/51 L 90/42 L Pulse Oximetry 100 100 100 06/01/18 10:03 06/01/18 10:30 06/01/18 10:45 Temperature Pulse Rate 74 80 81 Respiratory Rate 6 L 16 16 Blood Pressure 90/42 L 108/70 140/61 Pulse Oximetry 99 97 98 06/01/18 11:00 06/01/18 11:15 06/01/18 11:30 Temperature Pulse Rate 83 77 76 Respiratory Rate 16 16 16 Blood Pressure 131/60 115/56 L 120/53 L Pulse Oximetry 98 100 100 06/01/18 11:45 06/01/18 12:00 06/01/18 12:15 Temperature 98.6 F Pulse Rate 75 75 73 Respiratory Rate 16 16 16 Blood Pressure 106/50 L 106/52 L 165/97 H Pulse Oximetry 100 100 100 06/01/18 12:30 06/01/18 12:34 06/01/18 12:45 Temperature Pulse Rate 73 75 74 Respiratory Rate 16 16 16 Blood Pressure 104/48 L 103/54 L Pulse Oximetry 100 99 100 I&O: Intake & Output 05/30/18 05/31/18 06/01/18 06/02/18 06:59 06:59 06:59 06:59 Intake Total 4362.5 / 4362.5 1873 Output Total 1000 / 1000 525 / 525 Balance -1000 / -1000 3837.5 / 3837.5 1873 Weight 136.078 kg 121.2 kg Physical Exam: CONSTITUTIONAL/GENERAL: This is an adequately nourished patient, sedated, mechanically ventilated, in no apparent distress. TUBES/LINES/DRAINS: ET tube, left subclavian line, [place] SKIN: No jaundice, rashes, or lesions. Ecchymoses on upper extremities. No wounds seen anteriorly. Skin temperature cool. Not diaphoretic. HEAD: Atraumatic. Normocephalic. EYES: Pupils equal and round and reactive. No scleral icterus. No injection or drainage. Fundi not examined. ENT: Nose without bleeding or purulent drainage. Throat without visible erythema , exudates, masses, or lesions. NECK: Trachea midline. Supple, nontender. No palpable thyroid enlargement or nodularity. CARDIOVASCULAR: Regular rate and rhythm without murmurs, gallops, or rubs. No JVD. Peripheral pulses symmetric. RESPIRATORY/CHEST: Symmetric, unlabored respirations. A few scattered rales. GASTROINTESTINAL: Abdomen soft, non-tender, and moderately distended. No hepato- splenomegaly, or palpable masses. No guarding. Bowel sounds present. GENITOURINARY: Without palpable bladder distension. [place] catheter in place. MUSCULOSKELETAL: Extremities without clubbing, cyanosis, but there is moderate diffuse edema. No joint tenderness or effusion noted. No mottling or clubbing. LYMPHATICS: No palpable cervical or supraclavicular adenopathy. NEUROLOGICAL: Sedated, unresponsive. PSYCHIATRIC: Unable to evaluate due to clinical condition. Diagnostic Tests Laboratory: Laboratory Results - last 72 hr 05/30/18 05/30/18 05/30/18 23:11 23:25 23:25 WBC 12.3 H RBC 2.76 L Hgb 8.9 L Hct 26.3 L MCV 95.5 MCH 32.3 MCHC 33.8 RDW 13.5 Plt Count 322 MPV 8.5 Neut % (Auto) 75.8 H Lymph % (Auto) 9.7 [place] % (Auto) 12.1 H Eos % (Auto) 2.0 Baso % (Auto) 0.4 Neut # (Auto) 9.3 H Lymph # (Auto) 1.2 [place] # (Auto) 1.5 H Eos # (Auto) 0.2 Baso # (Auto) 0.1 WBC Differential . Differential Comment Auto diff final PT 11.6 INR 1.1 APTT 31.2 H Puncture Site Patient Temperature O2 Saturation ABG pH ABG pCO2 ABG pO2 ABG HCO3 ABG O2 Content ABG Base Excess ABG Methemoglobin Maurice Test Hemoglobin Carboxyhemoglobin O2 Delivery Device Vent Setting Inspired O2 Critical Value Sodium Potassium Chloride Carbon Dioxide Anion Gap BUN Creatinine Estimated GFR POC Glucose 138 H Random Glucose Lactic Acid Calcium Prot Corrected Calcium Phosphorus Magnesium Total Bilirubin AST ALT Alkaline Phosphatase Ammonia Total Creatine Kinase Troponin I Total Protein Albumin Vitamin B12 TSH Urine Color Urine Clarity Urine pH Ur Specific [place] Urine Protein Urine Glucose (UA) Urine Ketones Urine Occult Blood Urine Nitrate Urine Bilirubin Urine Urobilinogen Ur Leukocyte Esterase Urine RBC Urine WBC Urine WBC Clumps Ur Squamous Epith Cells Micro UA Comment Urine Culture Comments Urine Eosinophils Ur Random Creatinine Ur Random Sodium Nasal Screen MRSA (PCR) Urine Opiates Screen Ur Barbiturates Screen Ur Amphetamines Screen U Benzodiazepines Scrn Urine Cocaine Screen U Cannabinoids Screen Serum Alcohol 05/30/18 05/30/18 05/31/18 23:25 23:25 00:05 WBC RBC Hgb Hct MCV MCH MCHC RDW Plt Count MPV Neut % (Auto) Lymph % (Auto) [place] % (Auto) Eos % (Auto) Baso % (Auto) Neut # (Auto) Lymph # (Auto) [place] # (Auto) Eos # (Auto) Baso # (Auto) WBC Differential Differential Comment PT INR APTT Puncture Site Patient Temperature O2 Saturation ABG pH ABG pCO2 ABG pO2 ABG HCO3 ABG O2 Content ABG Base Excess ABG Methemoglobin Maurice Test Hemoglobin Carboxyhemoglobin O2 Delivery Device Vent Setting Inspired O2 Critical Value Sodium Potassium Chloride Carbon Dioxide Anion Gap BUN Creatinine Estimated GFR POC Glucose Random Glucose Lactic Acid 0.5 Calcium Prot Corrected Calcium Phosphorus Magnesium Total Bilirubin AST ALT Alkaline Phosphatase Ammonia 24 Total Creatine Kinase Troponin I Total Protein Albumin Vitamin B12 TSH Urine Color Urine Clarity Urine pH Ur Specific [place] Urine Protein Urine Glucose (UA) Urine Ketones Urine Occult Blood Urine Nitrate Urine Bilirubin Urine Urobilinogen Ur Leukocyte Esterase Urine RBC Urine WBC Urine WBC Clumps Ur Squamous Epith Cells Micro UA Comment Urine Culture Comments Urine Eosinophils Ur Random Creatinine Ur Random Sodium Nasal Screen MRSA (PCR) Urine Opiates Screen Neg Ur Barbiturates Screen Neg Ur Amphetamines Screen Neg U Benzodiazepines Scrn Pos H Urine Cocaine Screen Neg U Cannabinoids Screen Neg Serum Alcohol 05/31/18 05/31/18 05/31/18 00:05 00:35 07:25 WBC RBC Hgb Hct MCV MCH MCHC RDW Plt Count MPV Neut % (Auto) Lymph % (Auto) [place] % (Auto) Eos % (Auto) Baso % (Auto) Neut # (Auto) Lymph # (Auto) [place] # (Auto) Eos # (Auto) Baso # (Auto) WBC Differential Differential Comment PT INR APTT Puncture Site Patient Temperature O2 Saturation ABG pH ABG pCO2 ABG pO2 ABG HCO3 ABG O2 Content ABG Base Excess ABG Methemoglobin Maurice Test Hemoglobin Carboxyhemoglobin O2 Delivery Device Vent Setting Inspired O2 Critical Value Sodium 139 Potassium 4.6 Chloride 107 Carbon Dioxide 20.1 L Anion Gap 12 BUN 75 H Creatinine 6.62 H Estimated GFR 8 L POC Glucose Random Glucose 64 L Lactic Acid Calcium 6.9 L* Prot Corrected Calcium 8.5 Phosphorus Magnesium Total Bilirubin 0.2 AST 15 ALT 16 Alkaline Phosphatase 72 Ammonia Total Creatine Kinase 113 Troponin I 0.05 0.04 Total Protein 4.2 L Albumin 1.9 L Vitamin B12 TSH 0.356 L Urine Color Yellow Urine Clarity Turbid H Urine pH 6.0 Ur Specific [place] 1.012 Urine Protein 100 H Urine Glucose (UA) Negative Urine Ketones Negative Urine Occult Blood Moderate H Urine Nitrate Negative Urine Bilirubin Negative Urine Urobilinogen Less than 2 Ur Leukocyte Esterase Moderate H Urine RBC 19 H Urine WBC Urine WBC Clumps Many H Ur Squamous Epith Cells 4 Micro UA Comment Cath-culture ind Urine Culture Comments Cath-cult indicated Urine Eosinophils Ur Random Creatinine Ur Random Sodium Nasal Screen MRSA (PCR) Urine Opiates Screen Ur Barbiturates Screen Ur Amphetamines Screen U Benzodiazepines Scrn Urine Cocaine Screen U Cannabinoids Screen Serum Alcohol Less than 3 05/31/18 05/31/18 05/31/18 07:38 07:45 08:02 WBC RBC Hgb Hct MCV MCH MCHC RDW Plt Count MPV Neut % (Auto) Lymph % (Auto) [place] % (Auto) Eos % (Auto) Baso % (Auto) Neut # (Auto) Lymph # (Auto) [place] # (Auto) Eos # (Auto) Baso # (Auto) WBC Differential Differential Comment PT INR APTT Puncture Site Right brachial Patient Temperature 98.6 O2 Saturation 98 ABG pH 7.20 L* ABG pCO2 50 H ABG pO2 276 H ABG HCO3 19 L ABG O2 Content 14.0 ABG Base Excess -8.0 L ABG Methemoglobin 1.0 Maurice Test Hemoglobin 9.7 L Carboxyhemoglobin 0.7 O2 Delivery Device Ventilator Vent Setting Inspired O2 100 Critical Value Yes Sodium Potassium Chloride Carbon Dioxide Anion Gap BUN Creatinine Estimated GFR POC Glucose 60 L Random Glucose Lactic Acid Calcium Prot Corrected Calcium Phosphorus Magnesium Total Bilirubin AST ALT Alkaline Phosphatase Ammonia 28 Total Creatine Kinase Troponin I Total Protein Albumin Vitamin B12 TSH Urine Color Urine Clarity Urine pH Ur Specific [place] Urine Protein Urine Glucose (UA) Urine Ketones Urine Occult Blood Urine Nitrate Urine Bilirubin Urine Urobilinogen Ur Leukocyte Esterase Urine RBC Urine WBC Urine WBC Clumps Ur Squamous Epith Cells Micro UA Comment Urine Culture Comments Urine Eosinophils Ur Random Creatinine Ur Random Sodium Nasal Screen MRSA (PCR) Urine Opiates Screen Ur Barbiturates Screen Ur Amphetamines Screen U Benzodiazepines Scrn Urine Cocaine Screen U Cannabinoids Screen Serum Alcohol 05/31/18 05/31/18 05/31/18 08:25 08:25 08:25 WBC RBC Hgb Hct MCV MCH MCHC RDW Plt Count MPV Neut % (Auto) Lymph % (Auto) [place] % (Auto) Eos % (Auto) Baso % (Auto) Neut # (Auto) Lymph # (Auto) [place] # (Auto) Eos # (Auto) Baso # (Auto) WBC Differential Differential Comment PT INR APTT Puncture Site Patient Temperature O2 Saturation ABG pH ABG pCO2 ABG pO2 ABG HCO3 ABG O2 Content ABG Base Excess ABG Methemoglobin Maurice Test Hemoglobin Carboxyhemoglobin O2 Delivery Device Vent Setting Inspired O2 Critical Value Sodium Potassium Chloride Carbon Dioxide Anion Gap BUN Creatinine Estimated GFR POC Glucose Random Glucose Lactic Acid Calcium Prot Corrected Calcium Phosphorus Magnesium Total Bilirubin AST ALT Alkaline Phosphatase Ammonia Total Creatine Kinase Troponin I Total Protein Albumin Vitamin B12 TSH Urine Color Urine Clarity Urine pH Ur Specific [place] Urine Protein Urine Glucose (UA) Urine Ketones Urine Occult Blood Urine Nitrate Urine Bilirubin Urine Urobilinogen Ur Leukocyte Esterase Urine RBC Urine WBC Urine WBC Clumps Ur Squamous Epith Cells Micro UA Comment Urine Culture Comments Urine Eosinophils 0-5 H Ur Random Creatinine 154 Ur Random Sodium 58 Cancelled Nasal Screen MRSA (PCR) Urine Opiates Screen Ur Barbiturates Screen Ur Amphetamines Screen U Benzodiazepines Scrn Urine Cocaine Screen U Cannabinoids Screen Serum Alcohol 05/31/18 05/31/18 05/31/18 08:26 11:00 11:15 WBC RBC Hgb Hct MCV MCH MCHC RDW Plt Count MPV Neut % (Auto) Lymph % (Auto) [place] % (Auto) Eos % (Auto) Baso % (Auto) Neut # (Auto) Lymph # (Auto) [place] # (Auto) Eos # (Auto) Baso # (Auto) WBC Differential Differential Comment PT INR APTT Puncture Site Patient Temperature O2 Saturation ABG pH ABG pCO2 ABG pO2 ABG HCO3 ABG O2 Content ABG Base Excess ABG Methemoglobin Maurice Test Hemoglobin Carboxyhemoglobin O2 Delivery Device Vent Setting Inspired O2 Critical Value Sodium Potassium Chloride Carbon Dioxide Anion Gap BUN Creatinine Estimated GFR POC Glucose 107 Random Glucose Lactic Acid 0.9 Calcium Prot Corrected Calcium Phosphorus Magnesium Total Bilirubin AST ALT Alkaline Phosphatase Ammonia Total Creatine Kinase Troponin I Total Protein Albumin Vitamin B12 TSH Urine Color Urine Clarity Urine pH Ur Specific [place] Urine Protein Urine Glucose (UA) Urine Ketones Urine Occult Blood Urine Nitrate Urine Bilirubin Urine Urobilinogen Ur Leukocyte Esterase Urine RBC Urine WBC Urine WBC Clumps Ur Squamous Epith Cells Micro UA Comment Urine Culture Comments Urine Eosinophils Ur Random Creatinine Ur Random Sodium Nasal Screen MRSA (PCR) Mrsa detected Urine Opiates Screen Ur Barbiturates Screen Ur Amphetamines Screen U Benzodiazepines Scrn Urine Cocaine Screen U Cannabinoids Screen Serum Alcohol 05/31/18 05/31/18 05/31/18 13:54 16:50 16:50 WBC RBC Hgb Hct MCV MCH MCHC RDW Plt Count MPV Neut % (Auto) Lymph % (Auto) [place] % (Auto) Eos % (Auto) Baso % (Auto) Neut # (Auto) Lymph # (Auto) [place] # (Auto) Eos # (Auto) Baso # (Auto) WBC Differential Differential Comment PT INR APTT Puncture Site Patient Temperature O2 Saturation ABG pH ABG pCO2 ABG pO2 ABG HCO3 ABG O2 Content ABG Base Excess ABG Methemoglobin Maurice Test Hemoglobin Carboxyhemoglobin O2 Delivery Device Vent Setting Inspired O2 Critical Value Sodium Potassium Chloride Carbon Dioxide Anion Gap BUN Creatinine Estimated GFR POC Glucose 100 Random Glucose Lactic Acid 0.6 Calcium Prot Corrected Calcium Phosphorus Magnesium Total Bilirubin AST ALT Alkaline Phosphatase Ammonia Total Creatine Kinase Troponin I 0.04 Total Protein Albumin Vitamin B12 TSH Urine Color Urine Clarity Urine pH Ur Specific [place] Urine Protein Urine Glucose (UA) Urine Ketones Urine Occult Blood Urine Nitrate Urine Bilirubin Urine Urobilinogen Ur Leukocyte Esterase Urine RBC Urine WBC Urine WBC Clumps Ur Squamous Epith Cells Micro UA Comment Urine Culture Comments Urine Eosinophils Ur Random Creatinine Ur Random Sodium Nasal Screen MRSA (PCR) Urine Opiates Screen Ur Barbiturates Screen Ur Amphetamines Screen U Benzodiazepines Scrn Urine Cocaine Screen U Cannabinoids Screen Serum Alcohol 05/31/18 05/31/18 05/31/18 17:13 20:48 20:53 WBC RBC Hgb Hct MCV MCH MCHC RDW Plt Count MPV Neut % (Auto) Lymph % (Auto) [place] % (Auto) Eos % (Auto) Baso % (Auto) Neut # (Auto) Lymph # (Auto) [place] # (Auto) Eos # (Auto) Baso # (Auto) WBC Differential Differential Comment PT INR APTT Puncture Site Patient Temperature O2 Saturation ABG pH ABG pCO2 ABG pO2 ABG HCO3 ABG O2 Content ABG Base Excess ABG Methemoglobin Maurice Test Hemoglobin Carboxyhemoglobin O2 Delivery Device Vent Setting Inspired O2 Critical Value Sodium Potassium Chloride Carbon Dioxide Anion Gap BUN Creatinine Estimated GFR POC Glucose 72 55 L 250 H Random Glucose Lactic Acid Calcium Prot Corrected Calcium Phosphorus Magnesium Total Bilirubin AST ALT Alkaline Phosphatase Ammonia Total Creatine Kinase Troponin I Total Protein Albumin Vitamin B12 TSH Urine Color Urine Clarity Urine pH Ur Specific [place] Urine Protein Urine Glucose (UA) Urine Ketones Urine Occult Blood Urine Nitrate Urine Bilirubin Urine Urobilinogen Ur Leukocyte Esterase Urine RBC Urine WBC Urine WBC Clumps Ur Squamous Epith Cells Micro UA Comment Urine Culture Comments Urine Eosinophils Ur Random Creatinine Ur Random Sodium Nasal Screen MRSA (PCR) Urine Opiates Screen Ur Barbiturates Screen Ur Amphetamines Screen U Benzodiazepines Scrn Urine Cocaine Screen U Cannabinoids Screen Serum Alcohol 06/01/18 06/01/18 06/01/18 00:10 00:50 01:19 WBC RBC Hgb Hct MCV MCH MCHC RDW Plt Count MPV Neut % (Auto) Lymph % (Auto) [place] % (Auto) Eos % (Auto) Baso % (Auto) Neut # (Auto) Lymph # (Auto) [place] # (Auto) Eos # (Auto) Baso # (Auto) WBC Differential Differential Comment PT INR APTT Puncture Site Patient Temperature O2 Saturation ABG pH ABG pCO2 ABG pO2 ABG HCO3 ABG O2 Content ABG Base Excess ABG Methemoglobin Maurice Test Hemoglobin Carboxyhemoglobin O2 Delivery Device Vent Setting Inspired O2 Critical Value Sodium Potassium Chloride Carbon Dioxide Anion Gap BUN Creatinine Estimated GFR POC Glucose 123 H Random Glucose Lactic Acid 0.7 Calcium Prot Corrected Calcium Phosphorus Magnesium Total Bilirubin AST ALT Alkaline Phosphatase Ammonia Total Creatine Kinase Troponin I Total Protein Albumin Vitamin B12 TSH Urine Color Urine Clarity Urine pH Ur Specific [place] Urine Protein Urine Glucose (UA) Urine Ketones Urine Occult Blood Urine Nitrate Urine Bilirubin Urine Urobilinogen Ur Leukocyte Esterase Urine RBC Urine WBC Urine WBC Clumps Ur Squamous Epith Cells Micro UA Comment Urine Culture Comments Urine Eosinophils Ur Random Creatinine 265 Ur Random Sodium 21 Nasal Screen MRSA (PCR) Urine Opiates Screen Ur Barbiturates Screen Ur Amphetamines Screen U Benzodiazepines Scrn Urine Cocaine Screen U Cannabinoids Screen Serum Alcohol 06/01/18 06/01/18 06/01/18 04:25 04:25 04:25 WBC 7.3 RBC 2.35 L Hgb 7.6 L Hct 22.6 L MCV 95.9 MCH 32.1 MCHC 33.5 RDW 13.7 Plt Count 224 D MPV 8.3 Neut % (Auto) 69.4 Lymph % (Auto) 13.2 [place] % (Auto) 13.7 H Eos % (Auto) 3.1 Baso % (Auto) 0.6 Neut # (Auto) 5.1 Lymph # (Auto) 1.0 [place] # (Auto) 1.0 H Eos # (Auto) 0.2 Baso # (Auto) 0.0 WBC Differential . Differential Comment Auto diff final PT 12.2 H INR 1.2 APTT 36.4 H Puncture Site Patient Temperature O2 Saturation ABG pH ABG pCO2 ABG pO2 ABG HCO3 ABG O2 Content ABG Base Excess ABG Methemoglobin Maurice Test Hemoglobin Carboxyhemoglobin O2 Delivery Device Vent Setting Inspired O2 Critical Value Sodium 138 Potassium 4.9 Chloride 109 H Carbon Dioxide 19.5 L Anion Gap 10 BUN 80 H Creatinine 6.53 H Estimated GFR 8 L POC Glucose Random Glucose 99 Lactic Acid Calcium 7.5 L Prot Corrected Calcium Phosphorus 3.9 Magnesium 1.3 L Total Bilirubin 0.3 AST 20 ALT 15 Alkaline Phosphatase 75 Ammonia Total Creatine Kinase Troponin I Total Protein 4.6 L Albumin 1.9 L Vitamin B12 TSH Urine Color Urine Clarity Urine pH Ur Specific [place] Urine Protein Urine Glucose (UA) Urine Ketones Urine Occult Blood Urine Nitrate Urine Bilirubin Urine Urobilinogen Ur Leukocyte Esterase Urine RBC Urine WBC Urine WBC Clumps Ur Squamous Epith Cells Micro UA Comment Urine Culture Comments Urine Eosinophils Ur Random Creatinine Ur Random Sodium Nasal Screen MRSA (PCR) Urine Opiates Screen Ur Barbiturates Screen Ur Amphetamines Screen U Benzodiazepines Scrn Urine Cocaine Screen U Cannabinoids Screen Serum Alcohol 06/01/18 06/01/18 06/01/18 04:25 04:25 06:35 WBC RBC Hgb Hct MCV MCH MCHC RDW Plt Count MPV Neut % (Auto) Lymph % (Auto) [place] % (Auto) Eos % (Auto) Baso % (Auto) Neut # (Auto) Lymph # (Auto) [place] # (Auto) Eos # (Auto) Baso # (Auto) WBC Differential Differential Comment PT INR APTT Puncture Site Right radial Patient Temperature 98.6 O2 Saturation 94 ABG pH 7.29 L* ABG pCO2 37 L ABG pO2 88 ABG HCO3 17 L ABG O2 Content 10.4 L ABG Base Excess -8.1 L ABG Methemoglobin 1.4 Maurice Test Present Hemoglobin 7.8 L Carboxyhemoglobin 1.4 O2 Delivery Device Ventilator Vent Setting Prvc/ac Inspired O2 40 Critical Value Yes Sodium Potassium Chloride Carbon Dioxide Anion Gap BUN Creatinine Estimated GFR POC Glucose Random Glucose Lactic Acid 0.6 Calcium Prot Corrected Calcium Phosphorus Magnesium Total Bilirubin AST ALT Alkaline Phosphatase Ammonia Total Creatine Kinase Troponin I Total Protein Albumin Vitamin B12 554 TSH Urine Color Urine Clarity Urine pH Ur Specific [place] Urine Protein Urine Glucose (UA) Urine Ketones Urine Occult Blood Urine Nitrate Urine Bilirubin Urine Urobilinogen Ur Leukocyte Esterase Urine RBC Urine WBC Urine WBC Clumps Ur Squamous Epith Cells Micro UA Comment Urine Culture Comments Urine Eosinophils Ur Random Creatinine Ur Random Sodium Nasal Screen MRSA (PCR) Urine Opiates Screen Ur Barbiturates Screen Ur Amphetamines Screen U Benzodiazepines Scrn Urine Cocaine Screen U Cannabinoids Screen Serum Alcohol 06/01/18 06/01/18 08:50 11:35 WBC RBC Hgb Hct MCV MCH MCHC RDW Plt Count MPV Neut % (Auto) Lymph % (Auto) [place] % (Auto) Eos % (Auto) Baso % (Auto) Neut # (Auto) Lymph # (Auto) [place] # (Auto) Eos # (Auto) Baso # (Auto) WBC Differential Differential Comment PT INR APTT Puncture Site Patient Temperature O2 Saturation ABG pH ABG pCO2 ABG pO2 ABG HCO3 ABG O2 Content ABG Base Excess ABG Methemoglobin Maurice Test Hemoglobin Carboxyhemoglobin O2 Delivery Device Vent Setting Inspired O2 Critical Value Sodium Potassium Chloride Carbon Dioxide Anion Gap BUN Creatinine Estimated GFR POC Glucose 136 H 142 H Random Glucose Lactic Acid Calcium Prot Corrected Calcium Phosphorus Magnesium Total Bilirubin AST ALT Alkaline Phosphatase Ammonia Total Creatine Kinase Troponin I Total Protein Albumin Vitamin B12 TSH Urine Color Urine Clarity Urine pH Ur Specific [place] Urine Protein Urine Glucose (UA) Urine Ketones Urine Occult Blood Urine Nitrate Urine Bilirubin Urine Urobilinogen Ur Leukocyte Esterase Urine RBC Urine WBC Urine WBC Clumps Ur Squamous Epith Cells Micro UA Comment Urine Culture Comments Urine Eosinophils Ur Random Creatinine Ur Random Sodium Nasal Screen MRSA (PCR) Urine Opiates Screen Ur Barbiturates Screen Ur Amphetamines Screen U Benzodiazepines Scrn Urine Cocaine Screen U Cannabinoids Screen Serum Alcohol Result Diagrams: 06/01/18 04:25 06/01/18 04:25 Microbiology: Microbiology 05/31/18 08:10 Gram Stain - Final Sputum - Endotracheal Sputum Culture - Preliminary Moderate growth normal respiratory xuan at 24 hours 05/31/18 07:45 Aerobic Blood Culture - Preliminary Blood - Peripheral No growth in 1 day Anaerobic Blood Culture - Preliminary No growth in 1 day 05/31/18 07:50 Aerobic Blood Culture - Preliminary Blood - Peripheral No growth in 1 day Anaerobic Blood Culture - Preliminary No growth in 1 day 05/31/18 00:05 Urine Culture - Preliminary Catheterized Urine gram negative rods 05/31/18 08:25 Streptococcus pneumoniae Antigen (M - Final Urine - Catheterized Urine Presumptive negative for streptococcus pneumoniae antigen, suggesting no current or recent infection. Infection due to Streptococcus pneumoniae cannot be ruled out since the antigen present in the sample may be below the detection limit of the test. 05/31/18 08:25 Legionella Antigen - Final Urine - Catheterized Urine Presumptive negative for Legionella pneumophila serogroup 1 antigen in urine, suggesting no recent or recurrent infection. Infection due to Legionella cannot be ruled out since other serogroups and species may cause disease, antigen may not be present in urine in early infection, and the level of antigen present in the urine may be below the detection limit of the test. 05/31/18 11:00 Influenza Types A,B Antigen - Final Nasal Wash Negative for FLU A and B antigen Infection due to influenza A or B cannot be ruled out since the antigen present in the sample may be below the detection limit of the test. Imaging: Abdomen/Pelvis CT 05/31/18 00:00 CONCLUSION: 1. No acute abnormality. 2. 7 mm nonobstructing right renal stone. 3. Small bilateral pleural effusions with bibasilar consolidations. This is more pronounced than typical passive atelectasis. Infectious etiology versus pulmonary edema. Head CT 05/31/18 00:00 CONCLUSION: Stable evaluation the brain without evidence of acute infarct, hemorrhage, mass or edema. . Chest X-Ray 05/31/18 05:25 CONCLUSION: Central line as above. Head MRI 06/01/18 00:00 CONCLUSION: 1. No evidence of acute infarct, hemorrhage, mass or edema. 2. Mild cerebral white matter disease characteristic of microvascular ischemic changes. 3. No significant change compared to previous study in 2010 Procedures: INTUBATION 05/30/18 Patient/Family Conference Present at Family Conference: Patient's son Jonel De La Paz by telephone Family Conference Time: 41 Family Conference Location: Telephone Issues Discussed: * Palliative care role, purpose, approach * Additional medical, psychosocial, and spiritual history * Patients general health, functional status, and cognitive changes in the months leading up to the current hospitalization * Patient/family understanding of the current medical problems * Patient/family understanding of prognosis * Patients goals of care as best understood from advance directives and/or conversations and/or values * Current medical treatment options and benefits/burdens of those options * Likely scenarios comparing ongoing aggressive care with a transition to comfort measures only * Questions answered to the best of my ability * Palliative care contact information provided Assessment and Plan Pertinent Non-Medical Issues: Psychosocial: Retired, , on Social Security, care home resident for several months. He had 3 children: One son is , son Jonel has stayed in touch with the patient and lives in [place], and there is a daughter that has been estranged for many years (different mother) Spiritual: The patient is reportedly spiritual but not zoroastrian, not affiliated with any caodaism or denomination. 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 His son Jonel De La Paz is the healthcare proxy decision-maker at this time. Ethical issues impacting care: None Important Contacts: Son Jonel De La Paz, cell: [phone] Friend: Wilber Bhatt [phone] Prognosis: Overall, the patient's prognosis is poor. He has multiorgan system failure at this point in time, and has multiple underlying comorbidities. Code Status: Alternative Code (Intubation only) Plan: * ALTERNATE CODE: Intubation only per her son Jonel 06/01/18 * DECISION-MAKING: The patient lacks capacity for decision-making, and it is not known whether he will regain. His son Jonel De La Paz is the healthcare proxy decision-maker at this time. * GOALS: At this time, the patient's son would like to continue aggressive care but not resuscitate if there is a cardiac arrest. He is open to having dialysis and other aggressive measures at this time. He understands that it is uncertain whether the renal function will improve, whether the patient will survive the sepsis and shock, and whether the encephalopathy will resolve. * SYMPTOMS: The patient is sedated and symptoms are managed with the medications and mechanical ventilation. I have no further medication recommendations at this time. * Palliative Care will continue to follow the patient during this hospitalization. Time Spent Total Floor Time (mins): 82 Face to Face Time (mins): 20 >50% Time in Counseling or Coordination of Care: Yes Appreciation Thank you for the opportunity to participate in the care of Jonel Monteiro.
--- NOTE | 2018-06-01 14:58 | P.CONNP ---
<Devi Iqbal - Last Filed: 06/01/18 15:13> History of Present Illness Service: Nephrology Consult date: 06/01/18 Reason for Consult: Acute Renal Failure Primary Care Provider: Nnamdi Gomez MD Chief Complaint: Altered mental status/acute respiratory failure/urinary tract infection History of Present Illness: This is a 72 y/o male admitted for altered mental status. He was found pinned between the bed and a window at the intermediate. On arrival he was treated with antibiotics for UTI in the ER. He became profoundly lethargic and therefor intubated and transferred to [facility]. His PMH is extensive and includes fibromyalgia , dementia, history of CVA, obstructive sleep apnea, atrial fibrillation/chronic , COPD, chronic kidney disease stage IV, BPH, diabetes mellitus, elevated BMI, atherosclerotic vascular disease, nephrolithiasis, liver cirrhosis, HTN, hyperlipidemia, gout, hypothyroidism, CABG 2, TURP, cardiac stent, right percutaneous lithotripsy. We were consulted for renal management, as he is in renal failure on arrival. Creatinine was 6.6 and has had minimal improvement, BUN 80. IN April his creatinine was 2.5. He is making urine. Gtts include propofol, vasopressin, and Levophed. He is also on a bicarb gtt for metabolic acidosis. On exam he is intubated and sedated but opens eyes to stimulation. He is edematous on exam. Review of Systems unobtainable due to endotracheal tube PMFSH - History History Provided By: Medical Record, Plan Nurse / EMT - Medical History Medical History: Medical History (Last Reviewed 06/01/18 @ 07:59 by Jonel Barrientos) BPH (benign prostatic hyperplasia) (Acute) Diabetes mellitus (Acute) Sleep apnea (Acute) PTSD (post-traumatic stress disorder) (Acute) COPD (chronic obstructive pulmonary disease) (Acute) Acute on chronic systolic (congestive) heart failure (Acute) Atrial fibrillation (Acute) Atherosclerotic cardiovascular disease (Acute) NSTEMI (non-ST elevated myocardial infarction) (Acute) Adjustment disorder Anginal equivalent Anticoagulant long-term use Chronic kidney disease, stage IV (severe) Chronic use of benzodiazepine for therapeutic purpose Coronary artery disease Dementia Dysphasia Essential hypertension Fibromyalgia Hyperlipidemia Nephrolithiasis Occlusion of right internal carotid artery Hypertension Hypothyroid - Surgical History Surgical History: Surgical History (Last Reviewed 06/01/18 @ 07:59 by Jonel Jardiolin) Presence of coronary angioplasty implant and graft (Acute) H/O hand surgery H/O nephrostomy History of liver biopsy S/P TURP S/P coronary artery stent placement - Family History Family History: Family History (Last Updated 06/01/18 @ 14:36 by Angela Salcedo MD) Mother Family history of diabetes mellitus - Tobacco History Second Hand Smoke Exposure: No Tobacco Use In Past 30 Days: No Smoking Status: Former smoker (Quit tobacco 30 years ago) Tobacco Type: Cigarettes Years Smoked: 30 Number of Pack Years (if former smoker): 30 - Alcohol History How Often Do You Have a Drink Containing Alcohol: Never (Quit alcohol 30 years ago) - Substance Use History Substance History: No History of Abuse - Travel History Recent Travel in the [place] Within the Last 8 Weeks: No Recent Travel Out of the Country Within the Last 8 Weeks: No - Immunization History Tetanus Immunization: Unsure Hx Influenza Vaccine This Season: Unable to Assess Medications and Allergies Allergies Allergy/AdvReac Type Severity Reaction Status Date / Time ciprofloxacin Allergy Severe Itching Verified 05/30/18 23:15 diatrizoate meglumine Allergy Severe Itching Verified 05/30/18 23:15 gadobenic acid Allergy Severe Itching Verified 05/30/18 23:15 gadodiamide Allergy Severe Itching Verified 05/30/18 23:15 gadoteridol Allergy Severe Itching Verified 05/30/18 23:15 iodixanol Allergy Severe Itching Verified 05/30/18 23:15 iohexol Allergy Severe Itching Verified 05/30/18 23:15 levofloxacin Allergy Severe Itching Verified 05/30/18 23:15 celecoxib [From Celebrex] Allergy Unknown Itching Verified 05/30/18 23:15 ezetimibe [From Zetia] Allergy Unknown Itching Verified 05/30/18 23:15 prochlorperazine Allergy Unknown Itching Verified 05/10/18 20:51 [From Compazine] red dye Allergy Unknown Itching Verified 05/10/18 20:51 Home Medications Medication Instructions Recorded Confirmed Type apixaban 2.5 mg PO BID 05/10/18 05/31/18 History aspirin 81 mg PO DAILY 05/10/18 05/31/18 History atorvastatin 40 mg PO DAILY 05/10/18 05/31/18 History bumetanide 2 mg PO DAILY 05/10/18 05/31/18 History ferrous sulfate 325 mg PO DAILY 05/10/18 05/31/18 History furosemide 40 mg PO BID 05/10/18 05/31/18 History insulin aspart U-100 [Novolog 10 unit SUB-Q TIDAC 05/10/18 05/31/18 History U-100 Insulin aspart] insulin glargine 25 unit SUB-Q Q12H PRN 05/10/18 05/31/18 History ipratropium-albuterol 3 ml INHALATION Q4H PRN 05/10/18 05/31/18 History levothyroxine 200 mcg PO DAILY 05/10/18 05/31/18 History lisinopril 40 mg PO DAILY 05/10/18 05/31/18 History meclizine 25 mg PO DAILY PRN 05/10/18 05/31/18 History metoprolol tartrate 100 mg PO BID 05/10/18 05/31/18 History omeprazole 20 mg PO DAILY 05/10/18 05/31/18 History pregabalin [Lyrica] 75 mg PO BID 05/10/18 05/31/18 History ranolazine 500 mg PO Q12H PRN 05/10/18 05/31/18 History tamsulosin 0.4 mg PO DAILY 05/10/18 05/31/18 History Saccharomyces boulardii 250 mg PO TID 05/31/18 05/31/18 History alprazolam 0.25 mg PO TID 05/31/18 05/31/18 History clonidine HCl 0.1 mg PO Q8HR PRN 05/31/18 05/31/18 History clotrimazole 1 applic TOPICAL BID 05/31/18 05/31/18 History diltiazem HCl 120 mg PO DAILY 05/31/18 05/31/18 History doxycycline hyclate 100 mg PO BID 05/31/18 05/31/18 History ibuprofen 800 mg PO Q6H PRN 05/31/18 05/31/18 History pantoprazole 40 mg PO BID 05/31/18 05/31/18 History sucralfate 1 g PO TIDAC 05/31/18 05/31/18 History tiotropium bromide [Spiriva with 1 cap INHALATION DAILY 05/31/18 05/31/18 History HandiHaler] Active Medications: Active Medications Albuterol (Albuterol Neb (Prn)) 2.5 mg NEB Q2HR NEB PRN PRN Reason: SHORTNESS OF BREATH/WHEEZING Albuterol (Duoneb Neb ([facility])) 1 ampul NEB Q4HR NEB [facility] Last Admin: 06/01/18 09:02 Dose: 1 ampul Apixaban (Eliquis) 2.5 mg PO BID [facility] Last Admin: 06/01/18 08:44 Dose: 2.5 mg Artificial Tears (Genteal Severe Dry Eye Relief 0.3% Opth Gel) 1 drops EACH EYE BID [facility] Last Admin: 06/01/18 08:45 Dose: 1 drops Ascorbic Acid (Vitamin C) 500 mg PO DAILY [facility] Last Admin: 06/01/18 08:44 Dose: 500 mg Aspirin (Aspirin Chew) 81 mg PO DAILY [facility] Last Admin: 06/01/18 08:44 Dose: 81 mg Atorvastatin Calcium (Lipitor) 40 mg PO DAILY [facility] Last Admin: 06/01/18 08:44 Dose: 40 mg Bisacodyl (Dulcolax Supp) 10 mg RECTAL DAILY PRN PRN Reason: SEVERE CONSITIPATION Chlorhexidine Gluconate (Chlorhexidine 2% Cloth) 3 pack TOPICAL DAILY@0400 [facility] Stop: 06/06/18 03:59 Last Admin: 06/01/18 03:36 Dose: 3 pack Chlorhexidine Gluconate (Chlorhexidine 2% Cloth) 3 pack TOPICAL DAILY@0400 PRN PRN Reason: Extra cloth needed Stop: 06/06/18 03:59 Chlorhexidine Gluconate (Chlorhexidine 2% Cloth) 3 pack TOPICAL DAILY@0400 [facility] Stop: 06/07/18 03:59 Chlorhexidine Gluconate (Chlorhexidine 2% Cloth) 3 pack TOPICAL DAILY@0400 PRN PRN Reason: Extra cloth needed Stop: 06/07/18 03:59 Clotrimazole (Lotrimin 1% Cream) 1 applicatio TOPICAL BID [facility] Last Admin: 06/01/18 08:45 Dose: 1 applicatio Dextrose (D50w Vial) 50 ml IV.PUSH UNSCH PRN PRN Reason: PER HYPOGLYCEMIA PROTOCOL Last Admin: 05/31/18 21:56 Dose: 50 ml Ferrous Sulfate (Ferrrous Sulfate Liq) 300 mg PO DAILY [facility] Last Admin: 06/01/18 08:44 Dose: 300 mg Glucagon (Glucagon Inj) 1 mg OTHER PRN PRN PRN Reason: for Hypoglycemia Protocol Norepinephrine Bitartrate (Levophed-Dextrose 4 Mg/250 Ml Drip) 4 mg in 250 mls @ 7.5 mls/hr IV.SIG TITRATE PRN; Protocol PRN Reason: Per Protocol Last Titration: 06/01/18 07:04 Dose: 0 mcg/min, 0 mls/hr Fentanyl (Fentanyl 10 Mcg/Ml Premix Drip) 2,500 mcg in 250 mls @ 5 mls/hr IV.SIG TITRATE PRN; Protocol PRN Reason: Per Protocol Last Titration: 06/01/18 07:04 Dose: 0 mcg/hr, 0 mls/hr Propofol (Diprivan 1000 Mg/100 Ml Inj) 1,000 mg in 100 mls @ 4.082 mls/hr IV.CONT TITRATE PRN; Protocol PRN Reason: Per Protocol Last Admin: 06/01/18 13:03 Dose: 10 mcg/kg/min, 8.17 mls/hr Acetaminophen (Ofirmev Inj) 1,000 mg in 100 mls @ 400 mls/hr IV.SIG Q8H PRN PRN Reason: FEVER Vasopressin 40 unit/ Sodium (Chloride) 100 mls @ 6 mls/hr IV.CONT CONT [facility]; Protocol Last Infusion: 06/01/18 07:04 Dose: 0.04 units/min, 6 mls/hr Cefepime HCl 500 mg/ Sodium (Chloride) 100 mls @ 200 mls/hr IV.SIG Q24HR [facility] Midazolam HCl (Versed Inj) 50 mg in 50 mls @ 1 mls/hr IV.CONT TITRATE PRN; Protocol PRN Reason: Per Protocol Fosphenytoin Sodium 200 mgpe/ (Sodium Chloride) 54 mls @ 216 mls/hr IV.SIG Q8HR [facility] Last Infusion: 06/01/18 07:04 Dose: Infused Sodium Bicarbonate 150 meq/ (Sterile Water) 1,000 mls @ 84 mls/hr IV.CONT .[id number] [facility] Last Admin: 06/01/18 13:02 Dose: 84 mls/hr Insulin Aspart (Novolog Insulin Correctional Sugar Inj) 0 unit SQ Q4HR [facility]; Protocol Last Admin: 06/01/18 12:39 Dose: Not Given Lactulose (Lactulose Liq) 30 ml PO DAILY PRN PRN Reason: SEVERE CONSITIPATION Lansoprazole (Prevacid Solutab) 30 mg NG/OG DAILY [facility] Last Admin: 06/01/18 08:44 Dose: 30 mg Levothyroxine Sodium (Synthroid) 100 mcg PO DAILY@0600 [facility] Last Admin: 06/01/18 05:35 Dose: 100 mcg Levothyroxine Sodium (Synthroid) 75 mcg PO DAILY@0600 [facility] Last Admin: 06/01/18 05:44 Dose: 75 mcg Mupirocin (Bactroban 2% Nasal Oint) 1 applicatio EACH NARE BID [facility] Stop: 06/05/18 21:01 Last Admin: 06/01/18 08:44 Dose: 1 applicatio Ondansetron HCl (Zofran Inj) 4 mg IV.PUSH Q6H PRN PRN Reason: NAUSEA OR VOMITING Pt Own Med: Florastor 250mg Po Tid 1 each PO TID [facility] Polyethylene Glycol (Miralax) 17 gm NG/OG BID [facility] Last Admin: 06/01/18 08:44 Dose: 17 gm Pregabalin (Lyrica) 75 mg PO BID [facility] Last Admin: 06/01/18 08:44 Dose: 75 mg Sennosides (Senokot) 17.2 mg PO Q12H PRN PRN Reason: Moderate Constipation Sodium Chloride (Ns Flush) 2 ml IV.FLUSH BID [facility] Last Admin: 06/01/18 08:45 Dose: 2 ml Sodium Chloride (Ns Flush) 2 ml IV.FLUSH PRN PRN PRN Reason: FLUSH AFTER USING IV ACCESS Sucralfate (Carafate) 1 gm PO TIDAC [facility] Last Admin: 06/01/18 12:39 Dose: 1 gm Tamsulosin HCl (Flomax) 0.4 mg PO DAILY [facility] Last Admin: 06/01/18 08:45 Dose: Not Given Exam Vital signs: Vital Signs 05/31/18 14:42 05/31/18 14:57 05/31/18 15:00 Temperature 100.2 F H Pulse Rate 77 82 81 Respiratory Rate 16 16 7 L Blood Pressure 119/59 L 126/59 L 122/55 L Pulse Oximetry 100 97 100 05/31/18 15:12 05/31/18 15:27 05/31/18 15:42 Temperature Pulse Rate 83 80 77 Respiratory Rate 10 L 7 L 0 L Blood Pressure 122/55 L 110/56 L 112/53 L Pulse Oximetry 100 100 100 05/31/18 15:57 05/31/18 16:00 05/31/18 16:12 Temperature 100.2 F H Pulse Rate 76 70 76 Respiratory Rate 0 L 1 L 0 L Blood Pressure 110/52 L 110/52 L 104/55 L Pulse Oximetry 100 100 100 05/31/18 16:27 05/31/18 16:42 05/31/18 16:57 Temperature Pulse Rate 78 79 80 Respiratory Rate 0 L 0 L 0 L Blood Pressure 111/55 L 108/55 L 110/54 L Pulse Oximetry 100 100 100 05/31/18 17:00 05/31/18 17:12 05/31/18 17:27 Temperature Pulse Rate 80 80 82 Respiratory Rate 2 L 0 L 16 Blood Pressure 106/50 L 124/54 L Pulse Oximetry 100 100 93 L 05/31/18 17:34 05/31/18 17:48 05/31/18 17:57 Temperature Pulse Rate 81 82 82 Respiratory Rate 16 16 16 Blood Pressure 114/57 L 105/53 L Pulse Oximetry 100 100 100 05/31/18 18:00 05/31/18 20:00 05/31/18 20:21 Temperature 100.4 F H Pulse Rate 83 85 82 Respiratory Rate 16 16 16 Blood Pressure 107/53 L Pulse Oximetry 100 100 05/31/18 20:24 05/31/18 21:00 05/31/18 21:35 Temperature 100.4 F H Pulse Rate 85 Respiratory Rate 16 16 Blood Pressure 107/53 L Pulse Oximetry 96 100 100 06/01/18 00:00 06/01/18 00:23 06/01/18 00:24 Temperature 99.7 F H Pulse Rate 66 69 Respiratory Rate 16 16 16 Blood Pressure 104/53 L Pulse Oximetry 98 100 06/01/18 01:30 06/01/18 01:45 06/01/18 02:00 Temperature Pulse Rate 71 71 71 Respiratory Rate 16 16 16 Blood Pressure 108/55 L 90/42 L 107/52 L Pulse Oximetry 100 100 100 06/01/18 02:15 06/01/18 02:30 06/01/18 02:45 Temperature Pulse Rate 71 72 73 Respiratory Rate 16 18 16 Blood Pressure 116/57 L 113/53 L 107/57 L Pulse Oximetry 100 99 100 06/01/18 03:00 06/01/18 03:15 06/01/18 03:27 Temperature Pulse Rate 73 73 71 Respiratory Rate 16 17 16 Blood Pressure 104/52 L 109/54 L Pulse Oximetry 99 90 L 06/01/18 03:30 06/01/18 03:45 06/01/18 04:00 Temperature 99.0 F Pulse Rate 73 74 75 Respiratory Rate 21 16 18 Blood Pressure 102/73 109/51 L 109/52 L Pulse Oximetry 89 L 100 98 06/01/18 04:02 06/01/18 04:15 06/01/18 04:30 Temperature Pulse Rate 74 75 Respiratory Rate 20 16 28 H Blood Pressure 105/51 L 85/48 L Pulse Oximetry 98 100 92 L 06/01/18 04:45 06/01/18 05:00 06/01/18 05:15 Temperature Pulse Rate 77 78 78 Respiratory Rate 19 16 16 Blood Pressure 105/54 L 110/54 L 114/54 L Pulse Oximetry 98 97 06/01/18 05:30 06/01/18 05:45 06/01/18 06:00 Temperature Pulse Rate 76 75 75 Respiratory Rate 16 7 L 13 Blood Pressure 104/53 L 106/53 L 111/54 L Pulse Oximetry 98 98 98 06/01/18 06:15 06/01/18 06:30 06/01/18 06:45 Temperature Pulse Rate 75 74 72 Respiratory Rate 27 H 16 16 Blood Pressure 107/53 L 93/46 L 98/47 L Pulse Oximetry 96 97 100 06/01/18 07:00 06/01/18 07:15 06/01/18 07:30 Temperature Pulse Rate 72 71 71 Respiratory Rate 16 16 16 Blood Pressure 91/46 L 95/45 L 94/48 L Pulse Oximetry 99 100 98 06/01/18 07:44 06/01/18 08:30 06/01/18 08:45 Temperature Pulse Rate 72 71 71 Respiratory Rate 16 16 Blood Pressure 104/54 L 99/55 L 114/56 L Pulse Oximetry 100 100 06/01/18 09:00 06/01/18 09:02 06/01/18 09:15 Temperature Pulse Rate 73 76 77 Respiratory Rate 23 16 16 Blood Pressure 115/54 L 123/56 L Pulse Oximetry 96 98 94 L 06/01/18 09:30 06/01/18 09:45 06/01/18 10:00 Temperature 98.6 F Pulse Rate 74 74 73 Respiratory Rate 16 16 0 L Blood Pressure 111/66 103/51 L 90/42 L Pulse Oximetry 100 100 100 06/01/18 10:03 06/01/18 10:30 06/01/18 10:45 Temperature Pulse Rate 74 80 81 Respiratory Rate 6 L 16 16 Blood Pressure 90/42 L 108/70 140/61 Pulse Oximetry 99 97 98 06/01/18 11:00 06/01/18 11:15 06/01/18 11:30 Temperature Pulse Rate 83 77 76 Respiratory Rate 16 16 16 Blood Pressure 131/60 115/56 L 120/53 L Pulse Oximetry 98 100 100 06/01/18 11:45 06/01/18 12:00 06/01/18 12:15 Temperature 98.6 F Pulse Rate 75 75 73 Respiratory Rate 16 16 16 Blood Pressure 106/50 L 106/52 L 165/97 H Pulse Oximetry 100 100 100 06/01/18 12:30 06/01/18 12:34 06/01/18 12:45 Temperature Pulse Rate 73 75 74 Respiratory Rate 16 16 16 Blood Pressure 104/48 L 103/54 L Pulse Oximetry 100 99 100 Intake & Output 05/31/18 06/01/18 06/01/18 18:59 06:59 18:59 Intake Total 2212.5 / 2212.5 2150 / 2150 1874 / 1874 Output Total 375 / 375 150 / 150 Balance 1837.5 / 1837.5 1999 1874 / 1874 Weight 121.2 kg Intake: IV 2212.5 / 2212.5 1900 / 1900 187 / 1874 Diprivan 1000 mg/100 ml Inj 1, 100 / 100 000 mg In 100 ml @ 5 MCG/KG/MIN 4.082 mls/hr IV.CONT TITRATE PRN Rx#:[id number] NS Inj 1,000 ML @ 84 mls/hr IV. 1000 / 1000 1700 / 1700 CONT .[id number] [facility] Rx#:[id number] Pitressin Inj 40 UNIT In NS Inj 100 / 100 98 ML @ 0.04 UNITS/MIN 6 mls/ hr IV.CONT CONT [facility] Rx#: [id number] Maxipime Inj 2,000 MG In NS Inj 100 / 100 100 ML @ 200 mls/hr IV.SIG STAT STA Rx#:[id number] Cerebyx Inj 200 MGPE In NS Inj 54 / 54 50 ML @ 216 mls/hr IV.SIG Q8HR [facility] Rx#:[id number] Cerebyx Inj 1,000 MGPE In NS 50 / 50 20 / 20 Inj 50 ML @ 210 mls/hr IV.SIG ONCE ONE Rx#:[id number] Gentamicin Inj 500 MG In NS Inj 112.5 / 112.5 100 ML @ 100 mls/hr IV.SIG ONCE ONE Rx#:[id number] Levophed-Dextrose 4 mg/250 ml 500 / 500 250 / 250 Drip 4 mg In 250 ml @ 2 MCG/MIN 7.5 mls/hr IV.SIG TITRATE PRN Rx#:[id number] NS Inj 1,000 ML @ Wide Open IV. 1000 / 1000 SIG BOLUS ONE Rx#:[id number] NS Inj 500 ML @ 250 mls/hr IV. 500 / 500 500 / 500 SIG .Q2H [facility] Rx#:[id number] Tube Feeding 50 / 50 Tube Irrigant 200 / 200 Output: Urine Amount (Catheter) 375 / 375 150 / 150 Coude 375 / 375 150 / 150 - Constitutional morbidly obese Comments: intubated, unresponsive - Routine HEENT Exam Head: Present: normocephalic - Routine Neck Exam Present: supple, full ROM - Routine Respiratory Exam Present: patient mechanically ventilated, crackles - Routine Cardiovascular Exam Present: RRR, S1, S2 - Routine Abdominal Exam Present: soft, normoactive bowel sounds - Routine Extremities Exam Present: edema, pulses intact - Routine Skin Exam Present: intact, warm - Routine Neurological Exam sedated, moves when stimulated, attempts to open eyes. Results - Lab Results 06/01/18 04:25 06/01/18 04:25 Most recent lab results ABG pH 7.29 (7.380-7.420) L* 06/01/18 06:35 ABG pCO2 37 mmHg (38-42) L 06/01/18 06:35 ABG pO2 88 mmHg (61-120) 06/01/18 06:35 ABG HCO3 17 mmol/L (22-26) L 06/01/18 06:35 Calcium 7.5 mg/dL (8.5-10.1) L 06/01/18 04:25 Phosphorus 3.9 mg/dL (2.5-4.9) 06/01/18 04:25 Magnesium 1.3 mg/dL (1.5-2.5) L 06/01/18 04:25 - Image Kidney/bladder ultrasound: other (CT reviewed ) Assessment and Plan - Assessment (1) Acute on chronic kidney failure Code(s): N17.9 - Acute kidney failure, unspecified; N18.9 - Chronic kidney disease, unspecified Status: Acute Plan: His baseline is 2.5 (CKD 4). He may have underlying diabetic nephropathy. Acute decline may be due to renal hypoperfusion secondary to hypotension; possibly infection He has not had much improvement in his creatinine since arrival. He is currently non oliguric Mild metabolic acidosis is noted, on bicarb gtt Change IVF to 1/2 NS with 1 amp at 50 cc/hr Monitor fluid status, has significant edema If no improvement or urine output drops, he may need dialysis support Repeat labs daily Avoid nephrotoxic agents Imaging shows non obstructing stone, history of lithotripsy in the past. (2) Acute alteration in mental status Code(s): R41.82 - Altered mental status, unspecified Status: Acute Plan: May be due to uremia, infection. (3) Septic shock Code(s): A41.9 - Sepsis, unspecified organism; R65.21 - Severe sepsis with septic shock Status: Acute Plan: Antibiotics as ordered, continue supportive care He is being treated for UTI. (4) Diabetes mellitus Code(s): E11.9 - Type 2 diabetes mellitus without complications Status: Acute Plan: Maintain blood glucose 140-180 mg/dL while admitted. <Norman Tabares - Last Filed: 06/01/18 18:35> History of Present Illness Primary Care Provider: Nnamdi Gomez MD [facility] - Medical History Medical History: Medical History (Last Reviewed 06/01/18 @ 07:59 by Jonel Barrientos) BPH (benign prostatic hyperplasia) (Acute) Diabetes mellitus (Acute) Sleep apnea (Acute) PTSD (post-traumatic stress disorder) (Acute) COPD (chronic obstructive pulmonary disease) (Acute) Acute on chronic systolic (congestive) heart failure (Acute) Atrial fibrillation (Acute) Atherosclerotic cardiovascular disease (Acute) NSTEMI (non-ST elevated myocardial infarction) (Acute) Adjustment disorder Anginal equivalent Anticoagulant long-term use Chronic kidney disease, stage IV (severe) Chronic use of benzodiazepine for therapeutic purpose Coronary artery disease Dementia Dysphasia Essential hypertension Fibromyalgia Hyperlipidemia Nephrolithiasis Occlusion of right internal carotid artery Hypertension Hypothyroid - Surgical History Surgical History: Surgical History (Last Reviewed 06/01/18 @ 07:59 by Jonel Barrientos) Presence of coronary angioplasty implant and graft (Acute) H/O hand surgery H/O nephrostomy History of liver biopsy S/P TURP S/P coronary artery stent placement - Family History Family History: Family History (Last Updated 06/01/18 @ 14:36 by Angela Salcedo MD) Mother Family history of diabetes mellitus Medications and Allergies Active Medications: Active Medications Albuterol (Albuterol Neb (Prn)) 2.5 mg NEB Q2HR NEB PRN PRN Reason: SHORTNESS OF BREATH/WHEEZING Albuterol (Duoneb Neb ([facility])) 1 ampul NEB Q4HR NEB [facility] Last Admin: 06/01/18 16:02 Dose: 1 ampul Apixaban (Eliquis) 2.5 mg PO BID [facility] Last Admin: 06/01/18 08:44 Dose: 2.5 mg Artificial Tears (Genteal Severe Dry Eye Relief 0.3% Opth Gel) 1 drops EACH EYE BID [facility] Last Admin: 06/01/18 08:45 Dose: 1 drops Ascorbic Acid (Vitamin C) 500 mg PO DAILY [facility] Last Admin: 06/01/18 08:44 Dose: 500 mg Aspirin (Aspirin Chew) 81 mg PO DAILY [facility] Last Admin: 06/01/18 08:44 Dose: 81 mg Atorvastatin Calcium (Lipitor) 40 mg PO DAILY [facility] Last Admin: 06/01/18 08:44 Dose: 40 mg Bisacodyl (Dulcolax Supp) 10 mg RECTAL DAILY PRN PRN Reason: SEVERE CONSITIPATION Chlorhexidine Gluconate (Chlorhexidine 2% Cloth) 3 pack TOPICAL DAILY@0400 [facility] Stop: 06/06/18 03:59 Last Admin: 06/01/18 03:36 Dose: 3 pack Chlorhexidine Gluconate (Chlorhexidine 2% Cloth) 3 pack TOPICAL DAILY@0400 PRN PRN Reason: Extra cloth needed Stop: 06/06/18 03:59 Chlorhexidine Gluconate (Chlorhexidine 2% Cloth) 3 pack TOPICAL DAILY@0400 [facility] Stop: 06/07/18 03:59 Chlorhexidine Gluconate (Chlorhexidine 2% Cloth) 3 pack TOPICAL DAILY@0400 PRN PRN Reason: Extra cloth needed Stop: 06/07/18 03:59 Clotrimazole (Lotrimin 1% Cream) 1 applicatio TOPICAL BID [facility] Last Admin: 06/01/18 08:45 Dose: 1 applicatio Dextrose (D50w Vial) 50 ml IV.PUSH UNSCH PRN PRN Reason: PER HYPOGLYCEMIA PROTOCOL Last Admin: 05/31/18 21:56 Dose: 50 ml Ferrous Sulfate (Ferrrous Sulfate Liq) 300 mg PO DAILY [facility] Last Admin: 06/01/18 08:44 Dose: 300 mg Glucagon (Glucagon Inj) 1 mg OTHER PRN PRN PRN Reason: for Hypoglycemia Protocol Norepinephrine Bitartrate (Levophed-Dextrose 4 Mg/250 Ml Drip) 4 mg in 250 mls @ 7.5 mls/hr IV.SIG TITRATE PRN; Protocol PRN Reason: Per Protocol Last Titration: 06/01/18 07:04 Dose: 0 mcg/min, 0 mls/hr Fentanyl (Fentanyl 10 Mcg/Ml Premix Drip) 2,500 mcg in 250 mls @ 5 mls/hr IV.SIG TITRATE PRN; Protocol PRN Reason: Per Protocol Last Titration: 06/01/18 15:28 Dose: Infused Propofol (Diprivan 1000 Mg/100 Ml Inj) 1,000 mg in 100 mls @ 4.082 mls/hr IV.CONT TITRATE PRN; Protocol PRN Reason: Per Protocol Last Titration: 06/01/18 17:12 Dose: 12 mcg/kg/min, 9.8 mls/hr Acetaminophen (Ofirmev Inj) 1,000 mg in 100 mls @ 400 mls/hr IV.SIG Q8H PRN PRN Reason: FEVER Vasopressin 40 unit/ Sodium (Chloride) 100 mls @ 6 mls/hr IV.CONT CONT [facility]; Protocol Last Infusion: 06/01/18 07:04 Dose: 0.04 units/min, 6 mls/hr Cefepime HCl 500 mg/ Sodium (Chloride) 100 mls @ 200 mls/hr IV.SIG Q24HR [facility] Midazolam HCl (Versed Inj) 50 mg in 50 mls @ 1 mls/hr IV.CONT TITRATE PRN; Protocol PRN Reason: Per Protocol Fosphenytoin Sodium 200 mgpe/ (Sodium Chloride) 54 mls @ 216 mls/hr IV.SIG Q8HR [facility] Last Infusion: 06/01/18 15:26 Dose: Infused Sodium Bicarbonate 50 meq/ (Sodium Chloride) 1,000 mls @ 42 mls/hr IV.CONT .[id number] [facility] Last Admin: 06/01/18 17:10 Dose: 42 mls/hr Insulin Aspart (Novolog Insulin Correctional Sugar Inj) 0 unit SQ Q4HR [facility]; Protocol Last Admin: 06/01/18 17:08 Dose: 5 unit Lactulose (Lactulose Liq) 30 ml PO DAILY PRN PRN Reason: SEVERE CONSITIPATION Lansoprazole (Prevacid Solutab) 30 mg NG/OG DAILY [facility] Last Admin: 06/01/18 08:44 Dose: 30 mg Levothyroxine Sodium (Synthroid) 100 mcg PO DAILY@0600 [facility] Last Admin: 06/01/18 05:35 Dose: 100 mcg Levothyroxine Sodium (Synthroid) 75 mcg PO DAILY@0600 [facility] Last Admin: 06/01/18 05:44 Dose: 75 mcg Mupirocin (Bactroban 2% Nasal Oint) 1 applicatio EACH NARE BID [facility] Stop: 06/05/18 21:01 Last Admin: 06/01/18 08:44 Dose: 1 applicatio Ondansetron HCl (Zofran Inj) 4 mg IV.PUSH Q6H PRN PRN Reason: NAUSEA OR VOMITING Pt Own Med: Florastor 250mg Po Tid 1 each PO TID [facility] Polyethylene Glycol (Miralax) 17 gm NG/OG BID [facility] Last Admin: 06/01/18 08:44 Dose: 17 gm Pregabalin (Lyrica) 75 mg PO BID [facility] Last Admin: 06/01/18 08:44 Dose: 75 mg Sennosides (Senokot) 17.2 mg PO Q12H PRN PRN Reason: Moderate Constipation Sodium Chloride (Ns Flush) 2 ml IV.FLUSH BID [facility] Last Admin: 06/01/18 08:45 Dose: 2 ml Sodium Chloride (Ns Flush) 2 ml IV.FLUSH PRN PRN PRN Reason: FLUSH AFTER USING IV ACCESS Sucralfate (Carafate) 1 gm PO TIDAC [facility] Last Admin: 06/01/18 17:10 Dose: 1 gm Tamsulosin HCl (Flomax) 0.4 mg PO DAILY [facility] Last Admin: 06/01/18 08:45 Dose: Not Given Exam Vital signs: Vital Signs 05/31/18 20:00 05/31/18 20:21 05/31/18 20:24 Temperature 100.4 F H Pulse Rate 85 82 Respiratory Rate 16 16 16 Blood Pressure 107/53 L Pulse Oximetry 100 96 05/31/18 21:00 05/31/18 21:35 06/01/18 00:00 Temperature 100.4 F H 99.7 F H Pulse Rate 85 66 Respiratory Rate 16 16 Blood Pressure 107/53 L 104/53 L Pulse Oximetry 100 100 98 06/01/18 00:23 06/01/18 00:24 06/01/18 01:30 Temperature Pulse Rate 69 71 Respiratory Rate 16 16 16 Blood Pressure 108/55 L Pulse Oximetry 100 100 06/01/18 01:45 06/01/18 02:00 06/01/18 02:15 Temperature Pulse Rate 71 71 71 Respiratory Rate 16 16 16 Blood Pressure 90/42 L 107/52 L 116/57 L Pulse Oximetry 100 100 100 06/01/18 02:30 06/01/18 02:45 06/01/18 03:00 Temperature Pulse Rate 72 73 73 Respiratory Rate 18 16 16 Blood Pressure 113/53 L 107/57 L 104/52 L Pulse Oximetry 99 100 99 06/01/18 03:15 06/01/18 03:27 06/01/18 03:30 Temperature Pulse Rate 73 71 73 Respiratory Rate 17 16 21 Blood Pressure 109/54 L 102/73 Pulse Oximetry 90 L 89 L 06/01/18 03:45 06/01/18 04:00 06/01/18 04:02 Temperature 99.0 F Pulse Rate 74 75 Respiratory Rate 16 18 20 Blood Pressure 109/51 L 109/52 L Pulse Oximetry 100 98 98 06/01/18 04:15 06/01/18 04:30 06/01/18 04:45 Temperature Pulse Rate 74 75 77 Respiratory Rate 16 28 H 19 Blood Pressure 105/51 L 85/48 L 105/54 L Pulse Oximetry 100 92 L 08/10/18 05:00 06/01/18 05:15 06/01/18 05:30 Temperature Pulse Rate 78 78 76 Respiratory Rate 16 16 16 Blood Pressure 110/54 L 114/54 L 104/53 L Pulse Oximetry 98 97 98 06/01/18 05:45 06/01/18 06:00 06/01/18 06:15 Temperature Pulse Rate 75 75 75 Respiratory Rate 7 L 13 27 H Blood Pressure 106/53 L 111/54 L 107/53 L Pulse Oximetry 98 98 96 06/01/18 06:30 06/01/18 06:45 06/01/18 07:00 Temperature Pulse Rate 74 72 72 Respiratory Rate 16 16 16 Blood Pressure 93/46 L 98/47 L 91/46 L Pulse Oximetry 97 100 99 06/01/18 07:15 06/01/18 07:30 06/01/18 07:44 Temperature Pulse Rate 71 71 72 Respiratory Rate 16 16 Blood Pressure 95/45 L 94/48 L 104/54 L Pulse Oximetry 100 98 06/01/18 08:30 06/01/18 08:45 06/01/18 09:00 Temperature Pulse Rate 71 71 73 Respiratory Rate 16 16 23 Blood Pressure 99/55 L 114/56 L 115/54 L Pulse Oximetry 100 100 96 06/01/18 09:02 06/01/18 09:15 06/01/18 09:30 Temperature Pulse Rate 76 77 74 Respiratory Rate 16 16 16 Blood Pressure 123/56 L 111/66 Pulse Oximetry 98 94 L 100 06/01/18 09:45 06/01/18 10:00 06/01/18 10:03 Temperature 98.6 F Pulse Rate 74 73 74 Respiratory Rate 16 0 L 6 L Blood Pressure 103/51 L 90/42 L 90/42 L Pulse Oximetry 100 100 99 06/01/18 10:30 06/01/18 10:45 06/01/18 11:00 Temperature Pulse Rate 80 81 83 Respiratory Rate 16 16 16 Blood Pressure 108/70 140/61 131/60 Pulse Oximetry 97 98 98 06/01/18 11:15 06/01/18 11:30 06/01/18 11:45 Temperature Pulse Rate 77 76 75 Respiratory Rate 16 16 16 Blood Pressure 115/56 L 120/53 L 106/50 L Pulse Oximetry 100 100 100 06/01/18 12:00 06/01/18 12:15 06/01/18 12:30 Temperature 98.6 F Pulse Rate 75 73 73 Respiratory Rate 16 16 16 Blood Pressure 106/52 L 165/97 H Pulse Oximetry 100 100 100 06/01/18 12:34 06/01/18 12:45 06/01/18 13:00 Temperature Pulse Rate 75 74 73 Respiratory Rate 16 16 16 Blood Pressure 104/48 L 103/54 L 112/57 L Pulse Oximetry 99 100 100 06/01/18 13:15 06/01/18 13:30 06/01/18 13:45 Temperature Pulse Rate 72 71 75 Respiratory Rate 16 16 16 Blood Pressure 95/45 L 124/56 L 124/59 L Pulse Oximetry 100 100 100 06/01/18 14:33 06/01/18 14:34 06/01/18 14:45 Temperature Pulse Rate 79 80 75 Respiratory Rate 13 13 16 Blood Pressure 108/52 L Pulse Oximetry 100 100 100 06/01/18 14:55 06/01/18 14:59 06/01/18 15:00 Temperature Pulse Rate 74 74 73 Respiratory Rate 16 16 16 Blood Pressure 97/55 L 95/49 L Pulse Oximetry 100 100 100 06/01/18 15:04 06/01/18 15:15 06/01/18 15:30 Temperature Pulse Rate 73 72 68 Respiratory Rate 16 22 16 Blood Pressure 95/46 L 97/41 L Pulse Oximetry 100 100 100 06/01/18 15:39 06/01/18 15:45 06/01/18 16:00 Temperature 98.0 F Pulse Rate 73 66 66 Respiratory Rate 16 22 Blood Pressure 97/41 L 91/45 L 91/50 L Pulse Oximetry 100 100 06/01/18 16:03 06/01/18 16:15 06/01/18 17:15 Temperature Pulse Rate 68 69 72 Respiratory Rate 16 16 16 Blood Pressure 105/52 L 123/61 Pulse Oximetry 100 100 100 06/01/18 17:30 06/01/18 17:45 Temperature Pulse Rate 73 72 Respiratory Rate 16 16 Blood Pressure 123/58 L 105/51 L Pulse Oximetry 100 100 Intake & Output 05/31/18 06/01/18 06/01/18 18:59 06:59 18:59 Intake Total 2212.5 / 2212.5 2150 / 2150 2639 / 2639 Output Total 375 / 375 150 / 150 425 / 425 Balance 1837.5 / 1837.5 1999 / 1999 2214 / 2214 Weight 121.2 kg Intake: IV 2212.5 / 2212.5 1900 / 1900 2326 / 2326 Diprivan 1000 mg/100 ml Inj 1, 100 / 100 000 mg In 100 ml @ 5 MCG/KG/MIN 4.082 mls/hr IV.CONT TITRATE PRN Rx#:[id number] NS Inj 1,000 ML @ 84 mls/hr IV. 1000 / 1000 1700 / 1700 CONT .[id number] [facility] Rx#:[id number] Sodium Bicarbonate 8.4% Inj 150 200 / 200 MEQ In Sterile Water for Inj 850 ML @ 50 mls/hr IV.CONT . Q20H [facility] Rx#:[id number] Pitressin Inj 40 UNIT In NS Inj 100 / 100 98 ML @ 0.04 UNITS/MIN 6 mls/ hr IV.CONT CONT [facility] Rx#: [id number] Maxipime Inj 2,000 MG In NS Inj 100 / 100 100 ML @ 200 mls/hr IV.SIG STAT [facility] Rx#:[id number] Cerebyx Inj 200 MGPE In NS Inj 108 / 108 50 ML @ 216 mls/hr IV.SIG Q8HR [facility] Rx#:[id number] Cerebyx Inj 1,000 MGPE In NS 50 / 50 20 / 20 Inj 50 ML @ 210 mls/hr IV.SIG ONCE ONE Rx#:[id number] Gentamicin Inj 500 MG In NS Inj 112.5 / 112.5 100 ML @ 100 mls/hr IV.SIG ONCE ONE Rx#:[id number] Levophed-Dextrose 4 mg/250 ml 500 / 500 250 / 250 Drip 4 mg In 250 ml @ 2 MCG/MIN 7.5 mls/hr IV.SIG TITRATE PRN Rx#:[id number] NS Inj 1,000 ML @ Wide Open IV. 1000 / 1000 SIG BOLUS ONE Rx#:[id number] NS Inj 500 ML @ 250 mls/hr IV. 500 / 500 500 / 500 SIG .Q2H [facility] Rx#:[id number] fentaNYL 10 mcg/mL Premix Drip 198 / 198 2,500 mcg In 250 ml @ 50 MCG/HR 5 mls/hr IV.SIG TITRATE PRN Rx #:[id number] Tube Feeding 50 / 50 163 / 163 Tube Irrigant 200 / 200 150 / 150 Output: Stool 0 / 0 Urine Amount (Catheter) 375 / 375 150 / 150 425 / 425 Coude 375 / 375 150 / 150 425 / 425 Results - Lab Results 06/01/18 04:25 06/01/18 04:25 Most recent lab results ABG pH 7.29 (7.380-7.420) L* 06/01/18 06:35 ABG pCO2 37 mmHg (38-42) L 06/01/18 06:35 ABG pO2 88 mmHg (61-120) 06/01/18 06:35 ABG HCO3 17 mmol/L (22-26) L 06/01/18 06:35 Calcium 7.5 mg/dL (8.5-10.1) L 06/01/18 04:25 Phosphorus 3.9 mg/dL (2.5-4.9) 06/01/18 04:25 Magnesium 1.3 mg/dL (1.5-2.5) L 06/01/18 04:25 Assessment and Plan - Assessment (1) Acute on chronic kidney failure Code(s): N17.9 - Acute kidney failure, unspecified; N18.9 - Chronic kidney disease, unspecified Status: Acute (2) Acute alteration in mental status Code(s): R41.82 - Altered mental status, unspecified Status: Acute (3) Septic shock Code(s): A41.9 - Sepsis, unspecified organism; R65.21 - Severe sepsis with septic shock Status: Acute (4) Diabetes mellitus Code(s): E11.9 - Type 2 diabetes mellitus without complications Status: Acute - Attending Attestation patient was seen and examined. Agree with above assessment and plan. Poor prognosis. Has baseline CKD 4. Remains to be seen if we can avoid dialysis. It is also unclear if we initiate dialysis, will it become permanent. <Devi Iqbal - Last Filed: 06/01/18 15:13> (1) Acute on chronic kidney failure Qualifiers: Acute renal failure type: unspecified Chronic kidney disease stage: stage 3 ( moderate) Qualified Code(s): N17.9 - Acute kidney failure, unspecified; N18.3 - Chronic kidney disease, stage 3 (moderate) <Norman Tabares - Last Filed: 06/01/18 18:35> (1) Acute on chronic kidney failure Qualifiers: Acute renal failure type: unspecified Chronic kidney disease stage: stage 3 ( moderate) Qualified Code(s): N17.9 - Acute kidney failure, unspecified; N18.3 - Chronic kidney disease, stage 3 (moderate)
--- NOTE | 2018-06-01 16:24 | MG ---
cc: Nnamdi Balderas MD EEG NUMBER: [id number]. INDICATION: Had been on propofol. Past EEG diffuse slowing, was found on the floor next to his bed, confusion. FINDINGS: Recording shows a 7 Hz diffuse rhythm to 50 mV with some intermixed 4 Hz slowing. At times, some bifrontal 3 Hz slowing is noted. He has some arm and body shaking, but that did not correlate with any seizure activity. Photic stimulation was performed without significant posterior driving. Left arm twitch was noted, but this correlates with some muscle artifact. Hyperventilation was not performed. No focal abnormality was noted. No seizure activity was seen. Several left-sided jerks were noted by the tech, but this just correlates with muscle movement. Arm and body shaking was seen again. No evidence for seizure activity with that. IMPRESSION: Consistent with a moderate diffuse encephalopathy. No focal abnormality was noted. No seizure activity was seen. The jerking and shaking did not correlate with any seizure activity. Nnamdi Balderas MD DJM/rh , 03:43 PM , 03:49 PM
[2018-06-01] MEDS: Sodium Bicarbonate 8.4% Inj 50 MEQ in Sodium Chloride 0.45 % Inj 950 ML IV.CONT SCH (17:10)
[2018-06-02] MEDS: Insulin NovoLOG Aspart Correctional Sugar Inj SQ SCH ×7 (00:32→23:47)
[2018-06-02] MEDS: Oral Hygiene Kit OROPHARYNG SCH ×5 (00:33→23:47)
[2018-06-02] MEDS ORDERED: Chlorhexidine Gluconate 2% 1 Pack (2 Cloths) TOPICAL PRN (04:00)
[2018-06-02] MEDS: Chlorhexidine Gluconate 2% 1 Pack (2 Cloths) TOPICAL SCH ×2 (04:44)
[2018-06-02 05:45] LABS: Baso % (Auto) 0.3 % (0.0-2.0); Calcium 7.4 mg/dL (8.5-10.1); Carbon Dioxide 19.9 meq/L (21.0-32.0); Eos # (Auto) 0.3 th/mm3 (0.0-0.4); Eos % (Auto) 2.9 % (0.0-4.0); Hematocrit 23.7 % (39.0-51.0); Lymph # (Auto) 0.9 th/mm3 (1.0-4.8); Lymph % (Auto) 9.6 % (9.0-44.0); Magnesium 1.4 mg/dL (1.5-2.5); Mean Corpuscular HGB Conc 33.8 % (32.0-36.0); Mean Corpuscular Volume 94.6 fL (80.0-100.0); Mean Platelet Volume 8.5 fL (7.0-11.0); Mono # (Auto) 1.1 th/mm3 (0.0-0.9); Neut # (Auto) 7.1 th/mm3 (1.8-7.7); Neut % (Auto) 75.2 % (16.0-70.0); Phosphorus 4.7 mg/dL (2.5-4.9); Platelet Count 208 th/mm3 (150-450); Red Blood Count 2.51 mil/mm3 (4.50-5.90); Red Cell Distribution Width 13.5 % (11.6-17.2); White Blood Count 9.4 th/mm3 (4.0-11.0)
[2018-06-02] MEDS: Fosphenytoin Inj 200 MGPE in Sodium Chlor 0.9% Inj 50 ML IV.SIG SCH ×3 (05:55→21:26)
[2018-06-02] MEDS: Levothyroxine 100 MCG Tablet PO SCH (05:56)
[2018-06-02] MEDS: Levothyroxine 75 MCG Tablet PO SCH (05:58)
[2018-06-02 06:15] LABS: Total Protein 4.8 g/dL (6.4-8.2)
[2018-06-02] MEDS: Propofol 1000 mg/100 ml Inj 1,000 MG/100 ML BOTTLE IV.CONT PRN ×2 (06:49→23:48)
--- NOTE | 2018-06-02 08:59 | XR ---
EXAM DATE: 06/02/2018 8:56 AM EDT AGE/SEX: 72 years / Male INDICATIONS: Shortness of breath. CLINICAL DATA: This is the patient's subsequent encounter. Patient reports that signs and symptoms h ave been present for 3 days and indicates a pain score of Nonresponsive. MEDICAL/SURGICAL HISTORY: Chronic obstructive pulmonary disease. Hypertension. Congestive hea rt failure. AFIB. Diabetes. CABG. COMPARISON: [facility] – [place] CHEST 1V SINGLE AP, 05/31/2018. . FINDINGS: A single AP view of the chest demonstrates minimal left basilar density. Status post CABG. Endotrache al tube 3 cm above marisa. Nasogastric tube with tip in stomach. Left jugular line, stable. The card iomediastinal contours are unremarkable. Osseous structures are intact. CONCLUSION: Left basilar density , Likely atelectasis. Electronically signed by: Boom Ibarra MD 06/02/2018 8:58 AM EDT
[2018-06-02] MEDS: Sucralfate 1 GM Tablet PO SCH ×3 (09:02→16:36)
[2018-06-02] MEDS: Ferrrous Sulfate 300 MG/5 ML UDC PO SCH (09:02)
[2018-06-02] MEDS: Ascorbic Acid 500 MG Tablet PO SCH (09:04)
[2018-06-02] MEDS: Pregabalin 75 MG Capsule PO SCH ×2 (09:04→20:42)
[2018-06-02] MEDS: Polyethylene Glycol 3350 17 GM Packet NG/OG SCH ×2 (09:05→20:44)
[2018-06-02] MEDS: Hypromellose 0.3% Opth Gel 10 GM Bottle EACH EYE SCH ×2 (09:05→20:43)
[2018-06-02] MEDS: Mupirocin 2% Nasal Oint Topical Syringe EACH NARE SCH ×2 (09:05→21:26)
[2018-06-02] MEDS: Clotrimazole 1% Cream 15 GM Tube TOPICAL SCH ×2 (09:06→20:43)
--- NOTE | 2018-06-02 10:49 | P.PNNEU ---
Subjective Subjective Comments: No acute events reported No headache No chest pain No dyspnea Active Medications: Active Medications Albuterol (Albuterol Neb (Prn)) 2.5 mg NEB Q2HR NEB PRN PRN Reason: SHORTNESS OF BREATH/WHEEZING Albuterol (Duoneb Neb ([facility])) 1 ampul NEB Q4HR NEB [facility] Last Admin: 06/02/18 07:54 Dose: 1 ampul Apixaban (Eliquis) 2.5 mg PO BID [facility] Last Admin: 06/02/18 09:04 Dose: 2.5 mg Artificial Tears (Genteal Severe Dry Eye Relief 0.3% Opth Gel) 1 drops EACH EYE BID [facility] Last Admin: 06/02/18 09:05 Dose: 1 drops Ascorbic Acid (Vitamin C) 500 mg PO DAILY [facility] Last Admin: 06/02/18 09:04 Dose: 500 mg Aspirin (Aspirin Chew) 81 mg PO DAILY [facility] Last Admin: 06/02/18 09:04 Dose: 81 mg Atorvastatin Calcium (Lipitor) 40 mg PO DAILY [facility] Last Admin: 06/02/18 09:04 Dose: 40 mg Bisacodyl (Dulcolax Supp) 10 mg RECTAL DAILY PRN PRN Reason: SEVERE CONSITIPATION Chlorhexidine Gluconate (Chlorhexidine 2% Cloth) 3 pack TOPICAL DAILY@0400 [facility] Stop: 06/06/18 03:59 Last Admin: 06/02/18 04:44 Dose: 3 pack Chlorhexidine Gluconate (Chlorhexidine 2% Cloth) 3 pack TOPICAL DAILY@0400 PRN PRN Reason: Extra cloth needed Stop: 06/06/18 03:59 Chlorhexidine Gluconate (Chlorhexidine 2% Cloth) 3 pack TOPICAL DAILY@0400 [facility] Stop: 06/07/18 03:59 Last Admin: 06/02/18 04:44 Dose: Not Given Chlorhexidine Gluconate (Chlorhexidine 2% Cloth) 3 pack TOPICAL DAILY@0400 PRN PRN Reason: Extra cloth needed Stop: 06/07/18 03:59 Clotrimazole (Lotrimin 1% Cream) 1 applicatio TOPICAL BID [facility] Last Admin: 06/02/18 09:06 Dose: 1 applicatio Dextrose (D50w Vial) 50 ml IV.PUSH UNSCH PRN PRN Reason: PER HYPOGLYCEMIA PROTOCOL Last Admin: 05/31/18 21:56 Dose: 50 ml Ferrous Sulfate (Ferrrous Sulfate Liq) 300 mg PO DAILY [facility] Last Admin: 06/02/18 09:02 Dose: 300 mg Glucagon (Glucagon Inj) 1 mg OTHER PRN PRN PRN Reason: for Hypoglycemia Protocol Norepinephrine Bitartrate (Levophed-Dextrose 4 Mg/250 Ml Drip) 4 mg in 250 mls @ 7.5 mls/hr IV.SIG TITRATE PRN; Protocol PRN Reason: Per Protocol Last Titration: 06/01/18 07:04 Dose: 0 mcg/min, 0 mls/hr Fentanyl (Fentanyl 10 Mcg/Ml Premix Drip) 2,500 mcg in 250 mls @ 5 mls/hr IV.SIG TITRATE PRN; Protocol PRN Reason: Per Protocol Last Titration: 06/01/18 15:28 Dose: Infused Propofol (Diprivan 1000 Mg/100 Ml Inj) 1,000 mg in 100 mls @ 4.082 mls/hr IV.CONT TITRATE PRN; Protocol PRN Reason: Per Protocol Last Admin: 06/02/18 06:49 Dose: 12 mcg/kg/min, 9.8 mls/hr Acetaminophen (Ofirmev Inj) 1,000 mg in 100 mls @ 400 mls/hr IV.SIG Q8H PRN PRN Reason: FEVER Vasopressin 40 unit/ Sodium (Chloride) 100 mls @ 6 mls/hr IV.CONT CONT [facility]; Protocol Last Admin: 06/01/18 20:34 Dose: 0.04 units/min, 6 mls/hr Cefepime HCl 500 mg/ Sodium (Chloride) 100 mls @ 200 mls/hr IV.SIG Q24HR [facility] Midazolam HCl (Versed Inj) 50 mg in 50 mls @ 1 mls/hr IV.CONT TITRATE PRN; Protocol PRN Reason: Per Protocol Fosphenytoin Sodium 200 mgpe/ (Sodium Chloride) 54 mls @ 216 mls/hr IV.SIG Q8HR [facility] Last Infusion: 06/02/18 06:12 Dose: Infused Sodium Bicarbonate 50 meq/ (Sodium Chloride) 1,000 mls @ 42 mls/hr IV.CONT .[id number] [facility] Last Admin: 06/01/18 17:10 Dose: 42 mls/hr Insulin Aspart (Novolog Insulin Correctional Sugar Inj) 0 unit SQ Q4HR [facility]; Protocol Last Admin: 06/02/18 09:03 Dose: 10 unit Lactulose (Lactulose Liq) 30 ml PO DAILY PRN PRN Reason: SEVERE CONSITIPATION Lansoprazole (Prevacid Solutab) 30 mg NG/OG DAILY [facility] Last Admin: 06/02/18 09:04 Dose: 30 mg Levothyroxine Sodium (Synthroid) 100 mcg PO DAILY@0600 [facility] Last Admin: 06/02/18 05:56 Dose: 100 mcg Levothyroxine Sodium (Synthroid) 75 mcg PO DAILY@0600 [facility] Last Admin: 06/02/18 05:58 Dose: 75 mcg Mupirocin (Bactroban 2% Nasal Oint) 1 applicatio EACH NARE BID [facility] Stop: 06/05/18 21:01 Last Admin: 06/02/18 09:05 Dose: 1 applicatio Ondansetron HCl (Zofran Inj) 4 mg IV.PUSH Q6H PRN PRN Reason: NAUSEA OR VOMITING Pt Own Med: Florastor 250mg Po Tid 1 each PO TID [facility] Polyethylene Glycol (Miralax) 17 gm NG/OG BID [facility] Last Admin: 06/02/18 09:05 Dose: 17 gm Pregabalin (Lyrica) 75 mg PO BID [facility] Last Admin: 06/02/18 09:04 Dose: 75 mg Sennosides (Senokot) 17.2 mg PO Q12H PRN PRN Reason: Moderate Constipation Sodium Chloride (Ns Flush) 2 ml IV.FLUSH BID [facility] Last Admin: 06/02/18 09:07 Dose: 2 ml Sodium Chloride (Ns Flush) 2 ml IV.FLUSH PRN PRN PRN Reason: FLUSH AFTER USING IV ACCESS Sucralfate (Carafate) 1 gm PO TIDAC [facility] Last Admin: 06/02/18 09:02 Dose: 1 gm Tamsulosin HCl (Flomax) 0.4 mg PO DAILY [facility] Last Admin: 06/01/18 08:45 Dose: Not Given Allergies/Adverse Reactions: Allergies Allergy/AdvReac Type Severity Reaction Status Date / Time ciprofloxacin Allergy Severe Itching Verified 05/30/18 23:15 diatrizoate meglumine Allergy Severe Itching Verified 05/30/18 23:15 gadobenic acid Allergy Severe Itching Verified 05/30/18 23:15 gadodiamide Allergy Severe Itching Verified 05/30/18 23:15 gadoteridol Allergy Severe Itching Verified 05/30/18 23:15 iodixanol Allergy Severe Itching Verified 05/30/18 23:15 iohexol Allergy Severe Itching Verified 05/30/18 23:15 levofloxacin Allergy Severe Itching Verified 05/30/18 23:15 celecoxib [From Celebrex] Allergy Unknown Itching Verified 05/30/18 23:15 ezetimibe [From Zetia] Allergy Unknown Itching Verified 05/30/18 23:15 prochlorperazine Allergy Unknown Itching Verified 05/10/18 20:51 [From Compazine] red dye Allergy Unknown Itching Verified 05/10/18 20:51 Physical Exam Vital signs: Vital Signs 06/01/18 11:00 06/01/18 11:15 06/01/18 11:30 Temperature Pulse Rate 83 77 76 Respiratory Rate 16 16 16 Blood Pressure 131/60 115/56 L 120/53 L Pulse Oximetry 98 100 100 06/01/18 11:45 06/01/18 12:00 06/01/18 12:15 Temperature 98.6 F Pulse Rate 75 75 73 Respiratory Rate 16 16 16 Blood Pressure 106/50 L 106/52 L 165/97 H Pulse Oximetry 100 100 100 06/01/18 12:30 06/01/18 12:34 06/01/18 12:45 Temperature Pulse Rate 73 75 74 Respiratory Rate 16 16 16 Blood Pressure 104/48 L 103/54 L Pulse Oximetry 100 99 100 06/01/18 13:00 06/01/18 13:15 06/01/18 13:30 Temperature Pulse Rate 73 72 71 Respiratory Rate 16 16 16 Blood Pressure 112/57 L 95/45 L 124/56 L Pulse Oximetry 100 100 100 06/01/18 13:45 06/01/18 14:33 06/01/18 14:34 Temperature Pulse Rate 75 79 80 Respiratory Rate 16 13 13 Blood Pressure 124/59 L 108/52 L Pulse Oximetry 100 100 100 06/01/18 14:45 06/01/18 14:55 06/01/18 14:59 Temperature Pulse Rate 75 74 74 Respiratory Rate 16 16 16 Blood Pressure 97/55 L 95/49 L Pulse Oximetry 100 100 100 06/01/18 15:00 06/01/18 15:04 06/01/18 15:15 Temperature Pulse Rate 73 73 72 Respiratory Rate 16 16 22 Blood Pressure 95/46 L Pulse Oximetry 100 100 100 06/01/18 15:30 06/01/18 15:39 06/01/18 15:45 Temperature Pulse Rate 68 73 66 Respiratory Rate 16 16 Blood Pressure 97/41 L 97/41 L 91/45 L Pulse Oximetry 100 100 06/01/18 16:00 06/01/18 16:03 06/01/18 16:15 Temperature 98.0 F Pulse Rate 66 68 69 Respiratory Rate 22 16 16 Blood Pressure 91/50 L 105/52 L Pulse Oximetry 100 100 100 06/01/18 17:15 06/01/18 17:30 06/01/18 17:45 Temperature Pulse Rate 72 73 72 Respiratory Rate 16 16 16 Blood Pressure 123/61 123/58 L 105/51 L Pulse Oximetry 100 100 100 06/01/18 20:00 06/01/18 20:05 06/01/18 23:22 Temperature 98.5 F Pulse Rate 68 66 80 Respiratory Rate 16 18 17 Blood Pressure 120/56 L Pulse Oximetry 100 100 100 06/02/18 00:00 06/02/18 04:00 06/02/18 04:37 Temperature 98.7 F 98.7 F Pulse Rate 84 83 83 Respiratory Rate 17 16 16 Blood Pressure 118/70 127/58 L Pulse Oximetry 100 99 99 06/02/18 06:00 06/02/18 07:56 06/02/18 10:33 Temperature Pulse Rate 81 86 Respiratory Rate 18 18 Blood Pressure Pulse Oximetry 100 97 Intake & Output 06/01/18 06/02/18 06/02/18 18:59 06:59 18:59 Intake Total 2639 / 2639 895 / 895 Output Total 425 / 425 1000 / 1000 Balance 2214 / 2214 -105 / -105 Weight 121.2 kg Intake: IV 2326 / 2326 408 / 408 Diprivan 1000 mg/100 ml Inj 1, 100 / 100 200 / 200 000 mg In 100 ml @ 5 MCG/KG/MIN 4.082 mls/hr IV.CONT TITRATE PRN Rx#:[id number] NS Inj 1,000 ML @ 84 mls/hr IV. 1700 / 1700 CONT .[id number] [facility] Rx#:[id number] Sodium Bicarbonate 8.4% Inj 150 200 / 200 MEQ In Sterile Water for Inj 850 ML @ 50 mls/hr IV.CONT . Q20H [facility] Rx#:[id number] Pitressin Inj 40 UNIT In NS Inj 100 / 100 98 ML @ 0.04 UNITS/MIN 6 mls/ hr IV.CONT CONT [facility] Rx#: [id number] Cerebyx Inj 200 MGPE In NS Inj 108 / 108 108 / 108 50 ML @ 216 mls/hr IV.SIG Q8HR [facility] Rx#:[id number] Cerebyx Inj 1,000 MGPE In NS 20 / 20 Inj 50 ML @ 210 mls/hr IV.SIG ONCE ONE Rx#:[id number] fentaNYL 10 mcg/mL Premix Drip 198 / 198 2,500 mcg In 250 ml @ 50 MCG/HR 5 mls/hr IV.SIG TITRATE PRN Rx #:[id number] Tube Feeding 163 / 163 367 / 367 Tube Irrigant 150 / 150 120 / 120 Output: Stool 0 / 0 0 / 0 Urine Amount (Catheter) 425 / 425 1000 / 1000 Coude 425 / 425 1000 / 1000 Narrative: pupil e awakens on sedatives and some tremors of body not follow commands but appears to look at me - Urinary Catheter Management Coude Cath placed during this visit: yes Reason for continuing: Hourly intake/output Insertion date: 05/31/18 Insertion time: 23:00 Objective Laboratory Results - last 24 hr 06/01/18 06/01/18 06/01/18 04:25 11:35 16:45 WBC RBC Hgb Hct MCV MCH MCHC RDW Plt Count MPV Neut % (Auto) Lymph % (Auto) Craig % (Auto) Eos % (Auto) Baso % (Auto) Neut # (Auto) Lymph # (Auto) Craig # (Auto) Eos # (Auto) Baso # (Auto) WBC Differential Differential Comment Sodium Potassium Chloride Carbon Dioxide Anion Gap BUN Creatinine Estimated GFR POC Glucose 142 H 194 H Random Glucose Calcium Prot Corrected Calcium Phosphorus Magnesium Total Protein Vitamin B12 554 06/01/18 06/02/18 06/02/18 21:06 00:13 04:10 WBC RBC Hgb Hct MCV MCH MCHC RDW Plt Count MPV Neut % (Auto) Lymph % (Auto) Craig % (Auto) Eos % (Auto) Baso % (Auto) Neut # (Auto) Lymph # (Auto) Craig # (Auto) Eos # (Auto) Baso # (Auto) WBC Differential Differential Comment Sodium Potassium Chloride Carbon Dioxide Anion Gap BUN Creatinine Estimated GFR POC Glucose 112 H 157 H 201 H Random Glucose Calcium Prot Corrected Calcium Phosphorus Magnesium Total Protein Vitamin B12 06/02/18 06/02/18 06/02/18 05:00 05:00 08:43 WBC 9.4 RBC 2.51 L Hgb 8.0 L Hct 23.7 L MCV 94.6 MCH 32.0 MCHC 33.8 RDW 13.5 Plt Count 208 MPV 8.5 Neut % (Auto) 75.2 H Lymph % (Auto) 9.6 Craig % (Auto) 12.0 H Eos % (Auto) 2.9 Baso % (Auto) 0.3 Neut # (Auto) 7.1 Lymph # (Auto) 0.9 L Craig # (Auto) 1.1 H Eos # (Auto) 0.3 Baso # (Auto) 0.0 WBC Differential . Differential Comment Auto diff final Sodium 138 Potassium 5.0 Chloride 107 Carbon Dioxide 19.9 L Anion Gap 11 BUN 85 H Creatinine 5.84 H Estimated GFR 10 L POC Glucose 243 H Random Glucose 176 H Calcium 7.4 L* Prot Corrected Calcium 8.7 Phosphorus 4.7 Magnesium 1.4 L Total Protein 4.8 L Vitamin B12 06/02/18 08:45 WBC RBC Hgb Hct MCV MCH MCHC RDW Plt Count MPV Neut % (Auto) Lymph % (Auto) Craig % (Auto) Eos % (Auto) Baso % (Auto) Neut # (Auto) Lymph # (Auto) Craig # (Auto) Eos # (Auto) Baso # (Auto) WBC Differential Differential Comment Sodium Potassium Chloride Carbon Dioxide Anion Gap BUN Creatinine Estimated GFR POC Glucose 242 H Random Glucose Calcium Prot Corrected Calcium Phosphorus Magnesium Total Protein Vitamin B12 Microbiology 05/31/18 08:10 Gram Stain - Final Sputum - Endotracheal Sputum Culture - Preliminary Moderate growth normal respiratory xuan at 24 hours 05/31/18 07:45 Aerobic Blood Culture - Preliminary Blood - Peripheral No growth in 1 day Anaerobic Blood Culture - Preliminary No growth in 1 day 05/31/18 07:50 Aerobic Blood Culture - Preliminary Blood - Peripheral No growth in 1 day Anaerobic Blood Culture - Preliminary No growth in 1 day 05/31/18 00:05 Urine Culture - Preliminary Catheterized Urine gram negative rods Review/Management - Review/Management Plan: imp mri and b12 nl eeg nl tremors not sz could try precedex he should do well neurowise
--- NOTE | 2018-06-02 14:23 | P.PNNP ---
Subjective Interval history: remains intubated. Improvement in creatinine. Physical Exam Vital signs: Vital Signs 06/01/18 14:33 06/01/18 14:34 06/01/18 14:45 Temperature Pulse Rate 79 80 75 Respiratory Rate 13 13 16 Blood Pressure 108/52 L Pulse Oximetry 100 100 100 06/01/18 14:55 06/01/18 14:59 06/01/18 15:00 Temperature Pulse Rate 74 74 73 Respiratory Rate 16 16 16 Blood Pressure 97/55 L 95/49 L Pulse Oximetry 100 100 100 06/01/18 15:04 06/01/18 15:15 06/01/18 15:30 Temperature Pulse Rate 73 72 68 Respiratory Rate 16 22 16 Blood Pressure 95/46 L 97/41 L Pulse Oximetry 100 100 100 06/01/18 15:39 06/01/18 15:45 06/01/18 16:00 Temperature 98.0 F Pulse Rate 73 66 66 Respiratory Rate 16 22 Blood Pressure 97/41 L 91/45 L 91/50 L Pulse Oximetry 100 100 06/01/18 16:03 06/01/18 16:15 06/01/18 17:15 Temperature Pulse Rate 68 69 72 Respiratory Rate 16 16 16 Blood Pressure 105/52 L 123/61 Pulse Oximetry 100 100 100 06/01/18 17:30 06/01/18 17:45 06/01/18 20:00 Temperature 98.5 F Pulse Rate 73 72 68 Respiratory Rate 16 16 16 Blood Pressure 123/58 L 105/51 L 120/56 L Pulse Oximetry 100 100 100 06/01/18 20:05 06/01/18 23:22 06/02/18 00:00 Temperature 98.7 F Pulse Rate 66 80 84 Respiratory Rate 18 17 17 Blood Pressure 118/70 Pulse Oximetry 100 100 100 06/02/18 04:00 06/02/18 04:37 06/02/18 06:00 Temperature 98.7 F Pulse Rate 83 83 81 Respiratory Rate 16 16 Blood Pressure 127/58 L Pulse Oximetry 99 99 06/02/18 07:56 06/02/18 10:33 06/02/18 11:00 Temperature Pulse Rate 86 97 H Respiratory Rate 18 18 17 Blood Pressure Pulse Oximetry 100 97 06/02/18 13:39 Temperature Pulse Rate Respiratory Rate 14 Blood Pressure Pulse Oximetry 99 Intake & Output 0806/02/18 06/02/18 18:59 06:59 18:59 Intake Total 2639 / 2639 895 / 895 Output Total 425 / 425 1000 / 1000 Balance 2214 / 2214 -105 / -105 Weight 121.2 kg Intake: IV 2326 / 2326 408 / 408 Diprivan 1000 mg/100 ml Inj 1, 100 / 100 200 / 200 000 mg In 100 ml @ 5 MCG/KG/MIN 4.082 mls/hr IV.CONT TITRATE PRN Rx#:[id number] NS Inj 1,000 ML @ 84 mls/hr IV. 1700 / 1700 CONT .[id number] [facility] Rx#:[id number] Sodium Bicarbonate 8.4% Inj 150 200 / 200 MEQ In Sterile Water for Inj 850 ML @ 50 mls/hr IV.CONT . Q20H [facility] Rx#:[id number] Pitressin Inj 40 UNIT In NS Inj 100 / 100 98 ML @ 0.04 UNITS/MIN 6 mls/ hr IV.CONT CONT [facility] Rx#: [id number] Cerebyx Inj 200 MGPE In NS Inj 108 / 108 108 / 108 50 ML @ 216 mls/hr IV.SIG Q8HR [facility] Rx#:[id number] Cerebyx Inj 1,000 MGPE In NS 20 / 20 Inj 50 ML @ 210 mls/hr IV.SIG ONCE ONE Rx#:[id number] fentaNYL 10 mcg/mL Premix Drip 198 / 198 2,500 mcg In 250 ml @ 50 MCG/HR 5 mls/hr IV.SIG TITRATE PRN Rx #:[id number] Tube Feeding 163 / 163 367 / 367 Tube Irrigant 150 / 150 120 / 120 Output: Stool 0 / 0 0 / 0 Urine Amount (Catheter) 425 / 425 1000 / 1000 Coude 425 / 425 1000 / 1000 - Constitutional Comments: on the ventilator. Sedated, unresponsive. - Routine Neck Exam Absent: JVD - Routine Respiratory Exam Comments: vented breath sounds. - Routine Cardiovascular Exam Present: S1, S2 - Routine Abdominal Exam Present: soft - Routine Extremities Exam Present: edema - Urinary Catheter Management Coude Cath placed during this visit: yes Reason for continuing: Hourly intake/output Insertion date: 05/31/18 Insertion time: 23:00 Assessment and Plan - Assessment (1) Acute on chronic kidney failure Code(s): N17.9 - Acute kidney failure, unspecified; N18.9 - Chronic kidney disease, unspecified Status: Acute Qualifiers: Acute renal failure type: unspecified Chronic kidney disease stage: stage 3 (moderate) Qualified Code(s): N17.9 - Acute kidney failure, unspecified; N18.3 - Chronic kidney disease, stage 3 (moderate) Plan: His baseline is 2.5 (CKD 4). He may have underlying diabetic nephropathy. Acute decline may be due to renal hypoperfusion secondary to hypotension; possibly infection Some improvement in creatinine, no immediate need for dialysis. He is currently non oliguric Demonstrates some signs of fluid overload, I will give him another dose of Bumex. Monitor fluid status, has significant edema Avoid nephrotoxic agents Imaging shows non obstructing stone, history of lithotripsy in the past. (2) Acute alteration in mental status Code(s): R41.82 - Altered mental status, unspecified Status: Acute Plan: May be due to uremia, infection. (3) Septic shock Code(s): A41.9 - Sepsis, unspecified organism; R65.21 - Severe sepsis with septic shock Status: Acute Plan: Antibiotics as ordered, continue supportive care He is being treated for UTI. (4) Diabetes mellitus Code(s): E11.9 - Type 2 diabetes mellitus without complications Status: Acute Plan: Maintain blood glucose 140-180 mg/dL while admitted.
--- NOTE | 2018-06-02 15:02 | P.PNCC ---
Subjective Subjective Remarks/Hospital Course: 05/31: This is a 72-year-old male. He is a resident of [facility] and [facility]. Date of admission 05/30/2018. Originally admitted to hospitalist service and now under our service 05/31/2018. Past medical history includes fibromyalgia, dementia, history of CVA, obstructive sleep apnea, atrial fibrillation/chronic, COPD, chronic kidney disease stage IV, BPH, diabetes mellitus, elevated BMI, atherosclerotic vascular disease, nephrolithiasis, liver cirrhosis, essential hypertension, hyperlipidemia, gout, history of right ice C occlusion, hypothyroidism, dysphagia, constipation, diplopia, CABG 2, TURP, cardiac stent, right percutaneous lithotripsy, liver biopsy and bilateral hand surgery. Patient is also on chronic benzodiazepines. Patient presented to [facility] on 05/30/2018 with history of being found on the floor between his bed in the window. His head was against the dresser. He was able to tell if he hit his head. There is a large amount about was in the floor but not bleeding from the head. He has excoriations on his back and his left knee and right wrist. CT brain at this facility was negative. Patient is on apixaban and aspirin at home. Patient was noted to have a urinary tract infection was started on cefepime and gentamicin by ED physician. Throughout the night, patient became more confused and is found to be obtunded earlier this morning was intubated and centralized placed due to hypotension. He is currently on norepinephrine drip at 12 mcg/min. Troponin was 0.05. Patient had a leukocytosis, normocytic anemia, creatinine 6.6/ baseline around 2.5 and TSH is 0.356. We are asked to admit the patient at this time. He is currently intubated and arousable in room C 25 in ED. No family available. 06/01: Remains sedated, orally intubated on mechanical ventilation. Had generalized tonic-clonic movements which were questionable last night for which he was given Ativan 4 mg IV and loaded with Cerebyx. EEG this morning pending. Neurology consult noted. Head CT negative for bleed. Negligible urine output. Worsening BUN/creatinine. On vasopressin low-dose currently, off all other pressors. 06/02: Remains sedated, arousable, orally intubated on mechanical ventilation. Not following commands unenlightening sedation. Objective Vital Signs / I&O: Vital Signs 06/01/18 14:55 06/01/18 14:59 06/01/18 15:00 Temperature Pulse Rate 74 74 73 Respiratory Rate 16 16 16 Blood Pressure 97/55 L 95/49 L Pulse Oximetry 100 100 100 06/01/18 15:04 06/01/18 15:15 06/01/18 15:30 Temperature Pulse Rate 73 72 68 Respiratory Rate 16 22 16 Blood Pressure 95/46 L 97/41 L Pulse Oximetry 100 100 100 06/01/18 15:39 06/01/18 15:45 06/01/18 16:00 Temperature 98.0 F Pulse Rate 73 66 66 Respiratory Rate 16 22 Blood Pressure 97/41 L 91/45 L 91/50 L Pulse Oximetry 100 100 06/01/18 16:03 06/01/18 16:15 06/01/18 17:15 Temperature Pulse Rate 68 69 72 Respiratory Rate 16 16 16 Blood Pressure 105/52 L 123/61 Pulse Oximetry 100 100 100 06/01/18 17:30 06/01/18 17:45 06/01/18 20:00 Temperature 98.5 F Pulse Rate 73 72 68 Respiratory Rate 16 16 16 Blood Pressure 123/58 L 105/51 L 120/56 L Pulse Oximetry 100 100 100 06/01/18 20:05 06/01/18 23:22 06/02/18 00:00 Temperature 98.7 F Pulse Rate 66 80 84 Respiratory Rate 18 17 17 Blood Pressure 118/70 Pulse Oximetry 100 100 100 06/02/18 04:00 06/02/18 04:37 06/02/18 06:00 Temperature 98.7 F Pulse Rate 83 83 81 Respiratory Rate 16 16 Blood Pressure 127/58 L Pulse Oximetry 99 99 06/02/18 07:56 06/02/18 10:33 06/02/18 11:00 Temperature Pulse Rate 86 97 H Respiratory Rate 18 18 17 Blood Pressure Pulse Oximetry 100 97 06/02/18 13:39 Temperature Pulse Rate Respiratory Rate 14 Blood Pressure Pulse Oximetry 99 Intake & Output 06/01/18 06/02/18 06/02/18 18:59 06:59 18:59 Intake Total 2639 / 2639 895 / 895 Output Total 425 / 425 1000 / 1000 Balance 2214 / 2214 -105 / -105 Weight 121.2 kg Intake: IV 2326 / 2326 408 / 408 Diprivan 1000 mg/100 ml Inj 1, 100 / 100 200 / 200 000 mg In 100 ml @ 5 MCG/KG/MIN 4.082 mls/hr IV.CONT TITRATE PRN Rx#:[id number] NS Inj 1,000 ML @ 84 mls/hr IV. 1700 / 1700 CONT .[id number] [facility] Rx#:[id number] Sodium Bicarbonate 8.4% Inj 150 200 / 200 MEQ In Sterile Water for Inj 850 ML @ 50 mls/hr IV.CONT . Q20H [facility] Rx#:[id number] Pitressin Inj 40 UNIT In NS Inj 100 / 100 98 ML @ 0.04 UNITS/MIN 6 mls/ hr IV.CONT CONT [facility] Rx#: [id number] Cerebyx Inj 200 MGPE In NS Inj 108 / 108 108 / 108 50 ML @ 216 mls/hr IV.SIG Q8HR [facility] Rx#:[id number] Cerebyx Inj 1,000 MGPE In NS 20 / 20 Inj 50 ML @ 210 mls/hr IV.SIG ONCE ONE Rx#:[id number] fentaNYL 10 mcg/mL Premix Drip 198 / 198 2,500 mcg In 250 ml @ 50 MCG/HR 5 mls/hr IV.SIG TITRATE PRN Rx #:[id number] Tube Feeding 163 / 163 367 / 367 Tube Irrigant 150 / 150 120 / 120 Output: Stool 0 / 0 0 / 0 Urine Amount (Catheter) 425 / 425 1000 / 1000 Coude 425 / 425 1000 / 1000 Result Diagrams: 06/02/18 05:00 06/02/18 05:00 Imaging: Chest X-Ray 05/30/18 23:18 CONCLUSION: Clear lungs. Head CT 05/30/18 23:18 CONCLUSION: 1. Negative CT Head non contrast. . Abdomen/Pelvis CT 05/31/18 00:00 CONCLUSION: 1. No acute abnormality. 2. 7 mm nonobstructing right renal stone. 3. Small bilateral pleural effusions with bibasilar consolidations. This is more pronounced than typical passive atelectasis. Infectious etiology versus pulmonary edema. Head CT 05/31/18 00:00 CONCLUSION: Stable evaluation the brain without evidence of acute infarct, hemorrhage, mass or edema. . Chest X-Ray 05/31/18 05:25 CONCLUSION: Central line as above. Head MRI 06/01/18 00:00 CONCLUSION: 1. No evidence of acute infarct, hemorrhage, mass or edema. 2. Mild cerebral white matter disease characteristic of microvascular ischemic changes. 3. No significant change compared to previous study in 2010 Chest X-Ray 06/02/18 07:25 CONCLUSION: Left basilar density , Likely atelectasis. Objective Remarks: GENERAL: 72-year-old male currently orotracheally intubated SKIN: Warm and dry. Excoriations on back, will left knee anteriorly and right wrist HEAD: Atraumatic. Normocephalic. EYES: Pupils equal and round bilaterally and minimally reactive. No scleral icterus. No injection or drainage. ENT: No nasal bleeding or discharge. Mucous membranes pink and moist. NECK: Trachea midline. No JVD. CARDIOVASCULAR: S1-S2 regular, no gallop or murmur. RESPIRATORY: His breath sounds due to body habitus. Few crackles patient bases bilaterally. GASTROINTESTINAL: Abdomen soft, non-tender, obese. Hypoactive bowel sounds appreciated. MUSCULOSKELETAL: Extremities trace bilateral lower extremity edema. No obvious deformities. NEUROLOGICAL: Currently sedated on the ventilator on propofol drip. Withdraws all 4 extremity spontaneously. Assessment and Plan - Assessment and Plan Plan: Neuro/Psych: Acute encephalopathy likely toxic metabolic secondary to severe sepsis Chronic benzodiazepine use CVA Dementia disorder NOS History of fibromyalgia Adjustment disorder with depressive features History of diplopia Currently on propofol/fentanyl drips for sedation/analgesia while intubated Goal of RASS of -[address] brain on admission revealed no acute intracranial findings Continue pregabalin 75 mg twice daily for peripheral neuropathy. Holding alprazolam 0.25 mg 3 times daily for anxiety. Questionable seizure last night, loaded with Cerebyx. EEG pending. Neuro consult noted. Repeat Head CT negative for bleed. 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 Follow CVP Currently norepinephrine drip at 12 mcg/min to maintain mean artery pressure greater than equal to 65 2D echo 07/09 revealed EF of 40-45%. LV dilatation. PAP 31 mmHg. Basilar inferolateral and inferior lateral hypokinesis. Repeat echocardiogram limited ordered 05/31 Initial troponin 0 0.05. Cycle 2 Cycle lactates every 6 hours 4 Heart catheterization 09/08 revealed patent LAURA to LAD and SVG to RCA. 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 Resp: Acute respiratory failure History of WERNER History of COPD Prior history of tobaccoism [facility] / Ventilator bundle Albuterol/ipratropium aerosols every 4 hours with albuterol aerosols every 2 hours as needed for dyspnea Post intubation chest x-ray reveals patchy infiltrate right midlung region. Adequacy of the ET tube and central line Holding Tiotropium 80 mg daily while on ipratropium GI: Gastroesophageal reflux disease history of gastric ulcer Constipation Hypoalbuminemia History of dysphasia History of liver biopsy with diagnosis of cirrhosis? OGT to [facility] Lansoprazole/sucralfate for GI prophylaxis. Patient is on omeprazole/ pantoprazole? Daily at alf. Polyethylene glycol 17 g twice daily for bowel regimen : BPH status post TURP History of nephrolithiasis status post right percutaneous lithotripsy 2004 Resume tamsulosin 0.4 mg daily when able Maintain [place] catheter for accurate I's and O's Endo: Diabetes mellitus 1.5 treat as 1.0 Hypothyroidism History of gout Holding insulin glargine 25 units twice daily and aspirin 8100 3 times daily with meals. Sliding-scale insulin with aspart insulin/high regimen with Accu-Cheks every 4 hours to maintain euglycemia Decrease levothyroxine from 200-175 mg daily. TSH was 0.356. Renal: Acute kidney injury in the setting of chronic kidney disease stage IV abdomen/pelvis CT with nonobstructing right renal stone Check urine electrolytes and eosinophils Avoid nephrotoxic drug\ Monitor urine output with accurate I's and O's. Possible need hemodialysis. Ordered bicarb gtt for metabolic acidosis. Consulted nephrology for further evaluation Heme: Leukocytosis Normocytic anemia/anemia of chronic kidney disease Chronic apixaban use 2.5 mg twice daily Resume apixaban 2.5 mg twice daily Monitor CBC daily. Follow trends. No indication for transfusion of blood products at this time. Type and screen ID: History of Enterococcus faecalis bacteremia History of staph saprophyticus urinary tract infection Received cefepime and gentamicin in the ED. We will treat with cefepime 500 mg daily/renally dosed Infectious disease was consulted for further antibiotic recommendations/ management CT abdomen/pelvis with nonobstructing right renal stone Holding doxycycline 100 mg twice daily/home medication Resume clotrimazole 1% to affected areas twice daily. Blood cultures 2 05/31 pending UA pending Sputum pending Influenza a and B pending Legionella and pneumococcal urinary antigens pending MSK: Elevated BMI Weight loss encouraged FEN: Replace electrolytes as clinically indicated Currently normal saline at 84 cc an hour Access -Left subclavian CVL (05/31) placed by ED physician Prophylaxis -GI -lansoprazole/sucralfate -DVT -SCD/apixaban will provide DVT prophylaxis Consult palliative care to assist with deciding goals of therapy. Critical care 35 minutes admission
[2018-06-02] MEDS: Sodium Bicarbonate 8.4% Inj 50 MEQ in Sodium Chloride 0.45 % Inj 950 ML IV.CONT SCH (17:21)
--- NOTE | 2018-06-02 17:33 | P.PNID ---
Subjective Remarks: X cover for Dr Neelam ye reviewd HISTORY OF PRESENT ILLNESS: This is a 72-year-old white male who was brought to the emergency department from [facility] with altered mental status. He was intubated in the emergency department and is currently on the ventilator. He had a decreased blood pressure, as well as increased respiratory rate and was bradycardic and hypothermic with temperature of 94.6 degrees. He had marked decreased urine output and is in acute renal failure. ID consulted for severe sepsis, history of Escherichia faecalis bacteremia, Staphylococcus urinary tract infection. Assist with antibiotic management. Remains on vent No fever Proeus from urine clx R TS and cipro his blood clx are negative resp clx with nl xuan Antibiotics: cefepime Past Medical History: PAST MEDICAL HISTORY: Dementia, diabetes mellitus, hypertension, hypothyroidism, hyperlipidemia, fibromyalgia, benign prostatic hypertrophy, chronic kidney disease stage IV, chronic obstructive pulmonary disease, coronary artery disease, nephrolithiasis, non-ST elevated myocardial infarction, post-traumatic stress disorder, history of nephrostomy, history of coronary stents, history of TURP. Allergies/Adverse Reactions: Allergies ciprofloxacin Allergy (Severe, Verified 05/30/18 23:15) Itching diatrizoate meglumine Allergy (Severe, Verified 05/30/18 23:15) Itching gadobenic acid Allergy (Severe, Verified 05/30/18 23:15) Itching gadodiamide Allergy (Severe, Verified 05/30/18 23:15) Itching gadoteridol Allergy (Severe, Verified 05/30/18 23:15) Itching iodixanol Allergy (Severe, Verified 05/30/18 23:15) Itching iohexol Allergy (Severe, Verified 05/30/18 23:15) Itching levofloxacin Allergy (Severe, Verified 05/30/18 23:15) Itching celecoxib [From Celebrex] Allergy (Unknown, Verified 05/30/18 23:15) Itching ezetimibe [From Zetia] Allergy (Unknown, Verified 05/30/18 23:15) Itching prochlorperazine [From Compazine] Allergy (Unknown, Verified 05/10/18 20:51) Itching red dye Allergy (Unknown, Verified 05/10/18 20:51) Itching Objective Vital Signs 06/01/18 17:30 06/01/18 17:45 06/01/18 20:00 Temperature 98.5 F Pulse Rate 73 72 68 Respiratory Rate 16 16 16 Blood Pressure 123/58 L 105/51 L 120/56 L Pulse Oximetry 100 100 100 06/01/18 20:05 06/01/18 23:22 06/02/18 00:00 Temperature 98.7 F Pulse Rate 66 80 84 Respiratory Rate 18 17 17 Blood Pressure 118/70 Pulse Oximetry 100 100 100 06/02/18 04:00 06/02/18 04:37 06/02/18 06:00 Temperature 98.7 F Pulse Rate 83 83 81 Respiratory Rate 16 16 Blood Pressure 127/58 L Pulse Oximetry 99 99 06/02/18 07:56 06/02/18 10:33 06/02/18 11:00 Temperature Pulse Rate 86 97 H Respiratory Rate 18 18 17 Blood Pressure Pulse Oximetry 100 97 06/02/18 13:39 06/02/18 15:18 06/02/18 16:21 Temperature Pulse Rate 96 H Respiratory Rate 14 13 14 Blood Pressure Pulse Oximetry 99 98 Intake & Output 06/01/18 06/02/18 06/02/18 18:59 06:59 18:59 Intake Total 2639 / 2639 895 / 895 1054 / 1054 Output Total 425 / 425 1000 / 1000 Balance 2214 / 2214 -105 / -105 1054 / 1054 Weight 121.2 kg Intake: IV 2326 / 2326 408 / 408 1054 / 1054 Diprivan 1000 mg/100 ml Inj 1, 100 / 100 200 / 200 000 mg In 100 ml @ 5 MCG/KG/MIN 4.082 mls/hr IV.CONT TITRATE PRN Rx#:[id number] NS Inj 1,000 ML @ 84 mls/hr IV. 1700 / 1700 CONT .[id number] [facility] Rx#:[id number] Sodium Bicarbonate 8.4% Inj 50 1000 / 1000 MEQ In 1/2 Normal Saline Inj 950 ML @ 42 mls/hr IV.CONT . [id number] [facility] Rx#:[id number] Sodium Bicarbonate 8.4% Inj 150 200 / 200 MEQ In Sterile Water for Inj 850 ML @ 50 mls/hr IV.CONT . Q20H [facility] Rx#:[id number] Pitressin Inj 40 UNIT In NS Inj 100 / 100 98 ML @ 0.04 UNITS/MIN 6 mls/ hr IV.CONT CONT [facility] Rx#: [id number] Cerebyx Inj 200 MGPE In NS Inj 108 / 108 108 / 108 54 / 54 50 ML @ 216 mls/hr IV.SIG Q8HR [facility] Rx#:[id number] Cerebyx Inj 1,000 MGPE In NS 20 / 20 Inj 50 ML @ 210 mls/hr IV.SIG ONCE ONE Rx#:[id number] 10 mcg/mL Premix Drip 198 / 198 2,500 mcg In 250 ml @ 50 MCG/HR 5 mls/hr IV.SIG TITRATE PRN Rx #:[id number] Tube Feeding 163 / 163 367 / 367 Tube Irrigant 150 / 150 120 / 120 Output: Stool 0 / 0 0 / 0 Urine Amount (Catheter) 425 / 425 1000 / 1000 Coude 425 / 425 1000 / 1000 05/31/18 08:10 Sputum - Endotracheal Gram Stain - Final 05/31/18 08:10 Sputum - Endotracheal Sputum Culture - Final Heavy growth normal respiratory xuan 05/31/18 00:05 Catheterized Urine Urine Culture - Final Proteus mirabilis 05/31/18 07:45 Blood - Peripheral Aerobic Blood Culture - Preliminary No growth in 2 days 05/31/18 07:45 Blood - Peripheral Anaerobic Blood Culture - Preliminary No growth in 2 days 05/31/18 07:50 Blood - Peripheral Aerobic Blood Culture - Preliminary No growth in 2 days 05/31/18 07:50 Blood - Peripheral Anaerobic Blood Culture - Preliminary No growth in 2 days 05/31/18 08:25 Urine - Catheterized Urine Streptococcus pneumoniae Antigen ( M - Final Presumptive negative for streptococcus pneumoniae antigen, suggesting no current or recent infection. Infection due to Streptococcus pneumoniae cannot be ruled out since the antigen present in the sample may be below the detection limit of the test. 05/31/18 08:25 Urine - Catheterized Urine Legionella Antigen - Final Presumptive negative for Legionella pneumophila serogroup 1 antigen in urine, suggesting no recent or recurrent infection. Infection due to Legionella cannot be ruled out since other serogroups and species may cause disease, antigen may not be present in urine in early infection, and the level of antigen present in the urine may be below the detection limit of the test. 05/31/18 11:00 Nasal Wash Influenza Types A,B Antigen - Final Negative for FLU A and B antigen Infection due to influenza A or B cannot be ruled out since the antigen present in the sample may be below the detection limit of the test. Lab - Hematology Results 06/01/18 06/02/18 04:25 05:00 WBC 7.3 9.4 RBC 2.35 L 2.51 L Hgb 7.6 L 8.0 L Hct 22.6 L 23.7 L MCV 95.9 94.6 MCH 32.1 32.0 MCHC 33.5 33.8 RDW 13.7 13.5 Plt Count 224 D 208 MPV 8.3 8.5 Neut % (Auto) 69.4 75.2 H Lymph % (Auto) 13.2 9.6 [place] % (Auto) 13.7 H 12.0 H Eos % (Auto) 3.1 2.9 Baso % (Auto) 0.6 0.3 Neut # (Auto) 5.1 7.1 Lymph # (Auto) 1.0 0.9 L [place] # (Auto) 1.0 H 1.1 H Eos # (Auto) 0.2 0.3 Baso # (Auto) 0.0 0.0 WBC Differential . . Differential Comment Auto diff final Auto diff final Lab - Chemistry Results 05/31/18 05/31/18 05/31/18 16:50 20:48 20:53 Sodium Potassium Chloride Carbon Dioxide Anion Gap BUN Creatinine Estimated GFR POC Glucose 55 L 250 H Random Glucose Lactic Acid Calcium Prot Corrected Calcium Phosphorus Magnesium Total Bilirubin AST ALT Alkaline Phosphatase Troponin I 0.04 Total Protein Albumin Vitamin B12 06/01/18 06/01/18 06/01/18 00:50 01:19 04:25 Sodium 138 Potassium 4.9 Chloride 109 H Carbon Dioxide 19.5 L Anion Gap 10 BUN 80 H Creatinine 6.53 H Estimated GFR 8 L POC Glucose 123 H Random Glucose 99 Lactic Acid 0.7 Calcium 7.5 L Prot Corrected Calcium Phosphorus 3.9 Magnesium 1.3 L Total Bilirubin 0.3 AST 20 ALT 15 Alkaline Phosphatase 75 Troponin I Total Protein 4.6 L Albumin 1.9 L Vitamin B12 06/01/18 06/01/18 06/01/18 04:25 04:25 08:50 Sodium Potassium Chloride Carbon Dioxide Anion Gap BUN Creatinine Estimated GFR POC Glucose 136 H Random Glucose Lactic Acid 0.6 Calcium Prot Corrected Calcium Phosphorus Magnesium Total Bilirubin AST ALT Alkaline Phosphatase Troponin I Total Protein Albumin Vitamin B12 554 06/01/18 06/01/18 06/01/18 11:35 16:45 21:06 Sodium Potassium Chloride Carbon Dioxide Anion Gap BUN Creatinine Estimated GFR POC Glucose 142 H 194 H 112 H Random Glucose Lactic Acid Calcium Prot Corrected Calcium Phosphorus Magnesium Total Bilirubin AST ALT Alkaline Phosphatase Troponin I Total Protein Albumin Vitamin B12 06/02/18 06/02/18 06/02/18 00:13 04:10 05:00 Sodium 138 Potassium 5.0 Chloride 107 Carbon Dioxide 19.9 L Anion Gap 11 BUN 85 H Creatinine 5.84 H Estimated GFR 10 L POC Glucose 157 H 201 H Random Glucose 176 H Lactic Acid Calcium 7.4 L* Prot Corrected Calcium 8.7 Phosphorus 4.7 Magnesium 1.4 L Total Bilirubin AST ALT Alkaline Phosphatase Troponin I Total Protein 4.8 L Albumin Vitamin B12 06/02/18 06/02/18 06/02/18 08:43 08:45 12:00 Sodium Potassium Chloride Carbon Dioxide Anion Gap BUN Creatinine Estimated GFR POC Glucose 243 H 242 H 195 H Random Glucose Lactic Acid Calcium Prot Corrected Calcium Phosphorus Magnesium Total Bilirubin AST ALT Alkaline Phosphatase Troponin I Total Protein Albumin Vitamin B12 06/02/18 16:22 Sodium Potassium Chloride Carbon Dioxide Anion Gap BUN Creatinine Estimated GFR POC Glucose 197 H Random Glucose Lactic Acid Calcium Prot Corrected Calcium Phosphorus Magnesium Total Bilirubin AST ALT Alkaline Phosphatase Troponin I Total Protein Albumin Vitamin B12 Imaging: ITS Impressions Abdomen/Pelvis CT 05/31/18 00:00 CONCLUSION: 1. No acute abnormality. 2. 7 mm nonobstructing right renal stone. 3. Small bilateral pleural effusions with bibasilar consolidations. This is more pronounced than typical passive atelectasis. Infectious etiology versus pulmonary edema. Head CT 05/31/18 00:00 CONCLUSION: Stable evaluation the brain without evidence of acute infarct, hemorrhage, mass or edema. . Head MRI 06/01/18 00:00 CONCLUSION: 1. No evidence of acute infarct, hemorrhage, mass or edema. 2. Mild cerebral white matter disease characteristic of microvascular ischemic changes. 3. No significant change compared to previous study in 2011 Chest X-Ray 06/02/18 07:25 CONCLUSION: Left basilar density , Likely atelectasis. Physical Exam: GENERAL: on the ventilator. NAD HEENT: The head is atraumatic. Unable to fully assess. No icterus. Pupils are constricted, but reactive. NECK: No adenopathy or swelling. LUNGS: Bilateral rhonchi. HEART: Irregular rate and rhythm. No murmurs, rubs or gallops are audible. ABDOMEN: Obese, soft, hyperactive bowel sounds. No masses palpable. EXTREMITIES: Trace edema of the upper extremities. No edema of the lower extremities. No clubbing or cyanosis. SKIN: No rash. NEUROLOGIC: responds to touch, but eyes remain closed all time not follows commands PSYCHIATRIC: Unable to assess. Assessment and Plan - Plan IMPRESSION: 1. Septic shock, probably secondary to urinary infection. Temperature and white blood cell count is improved. 2. Urinary tract infection. Urine culture has Proteus 3. Acute respiratory failure. 4. Acute kidney disease. GFR improving and UOP is 1400 5. Bilateral lung infiltrates, which could be congestive heart failure versus bilateral pneumonia. RECOMMENDATIONS: 1. Change cefepime to CFTX 2. Avoid nephrotoxic antibiotics 3. Follow blood cultures. 4. Follow urine culture. 5. Follow up sputum cultures. 6. Monitor clinical status.
[2018-06-03] MEDS: Chlorhexidine Gluconate 2% 1 Pack (2 Cloths) TOPICAL SCH ×2 (04:56→04:57)
[2018-06-03] MEDS: Oral Hygiene Kit OROPHARYNG SCH ×3 (04:57→16:42)
[2018-06-03] MEDS: Insulin NovoLOG Aspart Correctional Sugar Inj SQ SCH ×5 (04:57→21:00)
[2018-06-03 05:44] LABS: Baso # (Auto) 0.1 th/mm3 (0.0-0.2); Baso % (Auto) 0.4 % (0.0-2.0); Eos # (Auto) 0.5 th/mm3 (0.0-0.4); Eos % (Auto) 3.5 % (0.0-4.0); Hematocrit 25.2 % (39.0-51.0); Hemoglobin 8.5 gm/dL (13.0-17.0); Lymph # (Auto) 1.2 th/mm3 (1.0-4.8); Lymph % (Auto) 8.7 % (9.0-44.0); Mean Corpuscular HGB Conc 33.8 % (32.0-36.0); Mean Corpuscular Hemoglobin 31.8 pg (27.0-34.0); Mean Corpuscular Volume 93.9 fL (80.0-100.0); Mean Platelet Volume 8.2 fL (7.0-11.0); Mono % (Auto) 14.1 % (0.0-8.0); Neut # (Auto) 10.1 th/mm3 (1.8-7.7); Neut % (Auto) 73.3 % (16.0-70.0); Platelet Count 254 th/mm3 (150-450); Red Blood Count 2.68 mil/mm3 (4.50-5.90); Red Cell Distribution Width 13.7 % (11.6-17.2); White Blood Count 13.8 th/mm3 (4.0-11.0)
[2018-06-03 05:53] LABS: Activated Partial Thrombo Time 38.5 sec (24.3-30.1); INR 1.1 Ratio; Prothrombin Time 11.3 sec (9.8-11.6)
[2018-06-03 06:21] LABS: Alanine Aminotransferase 15 U/L (12-78); Albumin 1.9 g/dL (3.4-5.0); Alkaline Phosphatase 101 U/L (45-117); Anion Gap 10 meq/L (5-15); Aspartate Aminotransferase 17 U/L (15-37); Blood Urea Nitrogen 99 mg/dL (7-18); Carbon Dioxide 20.6 meq/L (21.0-32.0); Chloride 106 meq/L (98-107); Glomerular Filtration Rate 10 mL/min (>89); Glucose,Random 155 mg/dL (74-106); Magnesium 1.5 mg/dL (1.5-2.5); Phosphorus 4.8 mg/dL (2.5-4.9); Potassium 4.6 meq/L (3.5-5.1); Sodium 137 meq/L (136-145); Total Protein 4.9 g/dL (6.4-8.2)
[2018-06-03 06:23] LABS: Chol/HDL Ratio 2.09 Ratio; Free T4 (Free Thyroxine) 1.06 ng/dL (0.76-1.46); Triiodothyronine (T3) Free 0.97 pg/mL (2.18-3.98)
[2018-06-03] MEDS: Fosphenytoin Inj 200 MGPE in Sodium Chlor 0.9% Inj 50 ML IV.SIG SCH (06:33)
[2018-06-03] MEDS: Levothyroxine 100 MCG Tablet PO SCH (06:33)
[2018-06-03] MEDS: Levothyroxine 75 MCG Tablet PO SCH (06:33)
[2018-06-03] MEDS: Mupirocin 2% Nasal Oint Topical Syringe EACH NARE SCH ×2 (08:59→21:06)
[2018-06-03] MEDS: Pregabalin 75 MG Capsule PO SCH ×2 (08:59→21:06)
[2018-06-03] MEDS: Ascorbic Acid 500 MG Tablet PO SCH (08:59)
[2018-06-03] MEDS: Ferrrous Sulfate 300 MG/5 ML UDC PO SCH (08:59)
[2018-06-03] MEDS: Sucralfate 1 GM Tablet PO SCH ×3 (08:59→16:41)
[2018-06-03] MEDS: Polyethylene Glycol 3350 17 GM Packet NG/OG SCH ×2 (08:59→21:07)
[2018-06-03] MEDS: Clotrimazole 1% Cream 15 GM Tube TOPICAL SCH ×2 (09:00→21:06)
[2018-06-03] MEDS: Hypromellose 0.3% Opth Gel 10 GM Bottle EACH EYE SCH ×2 (09:00→21:06)
--- NOTE | 2018-06-03 09:14 | P.PNNEU ---
Subjective Subjective Comments: off sedatives on vent Active Medications: Active Medications Albuterol (Albuterol Neb (Prn)) 2.5 mg NEB Q2HR NEB PRN PRN Reason: SHORTNESS OF BREATH/WHEEZING Albuterol (Duoneb Neb ([facility])) 1 ampul NEB Q4HR NEB [facility] Last Admin: 06/03/18 07:45 Dose: 1 ampul Apixaban (Eliquis) 2.5 mg PO BID [facility] Last Admin: 06/03/18 08:59 Dose: 2.5 mg Artificial Tears (Genteal Severe Dry Eye Relief 0.3% Opth Gel) 1 drops EACH EYE BID [facility] Last Admin: 06/03/18 09:00 Dose: 1 drops Ascorbic Acid (Vitamin C) 500 mg PO DAILY [facility] Last Admin: 06/03/18 08:59 Dose: 500 mg Aspirin (Aspirin Chew) 81 mg PO DAILY [facility] Last Admin: 06/03/18 08:59 Dose: 81 mg Atorvastatin Calcium (Lipitor) 40 mg PO DAILY [facility] Last Admin: 06/03/18 08:59 Dose: 40 mg Bisacodyl (Dulcolax Supp) 10 mg RECTAL DAILY PRN PRN Reason: SEVERE CONSITIPATION Chlorhexidine Gluconate (Chlorhexidine 2% Cloth) 3 pack TOPICAL DAILY@0400 [facility] Stop: 06/06/18 03:59 Last Admin: 06/03/18 04:57 Dose: 3 pack Chlorhexidine Gluconate (Chlorhexidine 2% Cloth) 3 pack TOPICAL DAILY@0400 PRN PRN Reason: Extra cloth needed Stop: 06/06/18 03:59 Chlorhexidine Gluconate (Chlorhexidine 2% Cloth) 3 pack TOPICAL DAILY@0400 [facility] Stop: 06/07/18 03:59 Last Admin: 06/03/18 04:56 Dose: Not Given Chlorhexidine Gluconate (Chlorhexidine 2% Cloth) 3 pack TOPICAL DAILY@0400 PRN PRN Reason: Extra cloth needed Stop: 06/07/18 03:59 Clotrimazole (Lotrimin 1% Cream) 1 applicatio TOPICAL BID [facility] Last Admin: 06/03/18 09:00 Dose: 1 applicatio Dextrose (D50w Vial) 50 ml IV.PUSH UNSCH PRN PRN Reason: PER HYPOGLYCEMIA PROTOCOL Last Admin: 05/31/18 21:56 Dose: 50 ml Ferrous Sulfate (Ferrrous Sulfate Liq) 300 mg PO DAILY [facility] Last Admin: 06/03/18 08:59 Dose: 300 mg Glucagon (Glucagon Inj) 1 mg OTHER PRN PRN PRN Reason: for Hypoglycemia Protocol Norepinephrine Bitartrate (Levophed-Dextrose 4 Mg/250 Ml Drip) 4 mg in 250 mls @ 7.5 mls/hr IV.SIG TITRATE PRN; Protocol PRN Reason: Per Protocol Last Titration: 06/01/18 07:04 Dose: 0 mcg/min, 0 mls/hr Fentanyl (Fentanyl 10 Mcg/Ml Premix Drip) 2,500 mcg in 250 mls @ 5 mls/hr IV.SIG TITRATE PRN; Protocol PRN Reason: Per Protocol Last Titration: 06/01/18 15:28 Dose: Infused Propofol (Diprivan 1000 Mg/100 Ml Inj) 1,000 mg in 100 mls @ 4.082 mls/hr IV.CONT TITRATE PRN; Protocol PRN Reason: Per Protocol Last Admin: 06/02/18 23:48 Dose: 5 mcg/kg/min, 4.08 mls/hr Acetaminophen (Ofirmev Inj) 1,000 mg in 100 mls @ 400 mls/hr IV.SIG Q8H PRN PRN Reason: FEVER Vasopressin 40 unit/ Sodium (Chloride) 100 mls @ 6 mls/hr IV.CONT CONT [facility]; Protocol Last Infusion: 06/02/18 10:00 Dose: 0 units/min, 0 mls/hr Midazolam HCl (Versed Inj) 50 mg in 50 mls @ 1 mls/hr IV.CONT TITRATE PRN; Protocol PRN Reason: Per Protocol Fosphenytoin Sodium 200 mgpe/ (Sodium Chloride) 54 mls @ 216 mls/hr IV.SIG Q8HR [facility] Last Infusion: 06/03/18 06:50 Dose: Infused Sodium Bicarbonate 50 meq/ (Sodium Chloride) 1,000 mls @ 42 mls/hr IV.CONT .[id number] [facility] Last Admin: 06/02/18 17:21 Dose: 42 mls/hr Ceftriaxone Sodium 2,000 mg/ (Sodium Chloride) 100 mls @ 200 mls/hr IV.SIG Q24H [facility] Last Infusion: 06/02/18 19:29 Dose: Infused Insulin Aspart (Novolog Insulin Correctional Sugar Inj) 0 unit SQ Q4HR [facility]; Protocol Last Admin: 06/03/18 04:57 Dose: 5 unit Lactulose (Lactulose Liq) 30 ml PO DAILY PRN PRN Reason: SEVERE CONSITIPATION Lansoprazole (Prevacid Solutab) 30 mg NG/OG DAILY [facility] Last Admin: 06/03/18 08:59 Dose: 30 mg Levothyroxine Sodium (Synthroid) 100 mcg PO DAILY@0600 [facility] Last Admin: 06/03/18 06:33 Dose: 100 mcg Levothyroxine Sodium (Synthroid) 75 mcg PO DAILY@0600 [facility] Last Admin: 06/03/18 06:33 Dose: 75 mcg Mupirocin (Bactroban 2% Nasal Oint) 1 applicatio EACH NARE BID [facility] Stop: 06/05/18 21:01 Last Admin: 06/03/18 08:59 Dose: 1 applicatio Ondansetron HCl (Zofran Inj) 4 mg IV.PUSH Q6H PRN PRN Reason: NAUSEA OR VOMITING Pt Own Med: Florastor 250mg Po Tid 1 each PO TID [facility] Polyethylene Glycol (Miralax) 17 gm NG/OG BID [facility] Last Admin: 06/03/18 08:59 Dose: 17 gm Pregabalin (Lyrica) 75 mg PO BID [facility] Last Admin: 06/03/18 08:59 Dose: 75 mg Sennosides (Senokot) 17.2 mg PO Q12H PRN PRN Reason: Moderate Constipation Sodium Chloride (Ns Flush) 2 ml IV.FLUSH BID [facility] Last Admin: 06/03/18 09:00 Dose: 2 ml Sodium Chloride (Ns Flush) 2 ml IV.FLUSH PRN PRN PRN Reason: FLUSH AFTER USING IV ACCESS Sucralfate (Carafate) 1 gm PO TIDAC [facility] Last Admin: 06/03/18 08:59 Dose: 1 gm Tamsulosin HCl (Flomax) 0.4 mg PO DAILY [facility] Last Admin: 06/02/18 09:00 Dose: Not Given Allergies/Adverse Reactions: Allergies Allergy/AdvReac Type Severity Reaction Status Date / Time ciprofloxacin Allergy Severe Itching Verified 05/30/18 23:15 diatrizoate meglumine Allergy Severe Itching Verified 05/30/18 23:15 gadobenic acid Allergy Severe Itching Verified 05/30/18 23:15 gadodiamide Allergy Severe Itching Verified 05/30/18 23:15 gadoteridol Allergy Severe Itching Verified 05/30/18 23:15 iodixanol Allergy Severe Itching Verified 05/30/18 23:15 iohexol Allergy Severe Itching Verified 05/30/18 23:15 levofloxacin Allergy Severe Itching Verified 05/30/18 23:15 celecoxib [From Celebrex] Allergy Unknown Itching Verified 05/30/18 23:15 ezetimibe [From Zetia] Allergy Unknown Itching Verified 05/30/18 23:15 prochlorperazine Allergy Unknown Itching Verified 05/10/18 20:51 [From Compazine] red dye Allergy Unknown Itching Verified 05/10/18 20:51 Physical Exam Vital signs: Vital Signs 06/02/18 10:00 06/02/18 10:33 06/02/18 11:00 Temperature Pulse Rate 104 H 97 H Respiratory Rate 18 17 Blood Pressure Pulse Oximetry 97 06/02/18 12:00 06/02/18 13:39 06/02/18 14:00 Temperature 99.2 F Pulse Rate 98 H 96 H Respiratory Rate 17 14 Blood Pressure 119/49 L Pulse Oximetry 99 99 06/02/18 15:18 06/02/18 16:00 06/02/18 16:21 Temperature 99.9 F H Pulse Rate 96 H 98 H Respiratory Rate 13 13 14 Blood Pressure 128/61 Pulse Oximetry 99 98 06/02/18 18:00 06/02/18 20:00 06/02/18 20:15 Temperature 98.6 F Pulse Rate 102 H 96 H Respiratory Rate 16 18 Blood Pressure 125/58 L Pulse Oximetry 99 99 06/02/18 20:17 06/02/18 22:00 06/02/18 22:34 Temperature Pulse Rate 100 H 104 H Respiratory Rate 18 16 Blood Pressure Pulse Oximetry 98 06/02/18 23:34 06/03/18 00:00 06/03/18 01:13 Temperature 99.6 F Pulse Rate 92 H 97 H Respiratory Rate 16 16 16 Blood Pressure 109/53 L Pulse Oximetry 99 99 06/03/18 02:00 06/03/18 03:31 06/03/18 04:00 Temperature 98.9 F Pulse Rate 94 H 87 107 H Respiratory Rate 17 17 Blood Pressure 118/57 L Pulse Oximetry 99 06/03/18 04:17 06/03/18 06:00 06/03/18 07:00 Temperature Pulse Rate 100 H 96 H Respiratory Rate 20 16 Blood Pressure Pulse Oximetry 100 100 Intake & Output 06/02/18 06/03/18 06/03/18 18:59 06:59 18:59 Intake Total 1671 / 1671 813 / 813 Output Total 575 / 575 250 / 250 Balance 1096 / 1096 563 / 563 Weight 122.9 kg Intake: IV 1054 / 1054 208 / 208 Sodium Bicarbonate 8.4% Inj 50 1000 / 1000 MEQ In 1/2 Normal Saline Inj 950 ML @ 42 mls/hr IV.CONT . [id number] [facility] Rx#:[id number] Cerebyx Inj 200 MGPE In NS Inj 54 / 54 108 / 108 50 ML @ 216 mls/hr IV.SIG Q8HR [facility] Rx#:[id number] Rocephin Inj 2,000 MG In NS Inj 100 / 100 100 ML @ 200 mls/hr IV.SIG Q24H [facility] Rx#:[id number] Tube Feeding 517 / 517 485 / 485 Tube Irrigant 100 / 100 120 / 120 Output: Stool 0 / 0 Urine Amount (Catheter) 575 / 575 250 / 250 Coude 575 / 575 250 / 250 Other: Date of Last Bowel Movement 06/02/18 06/03/18 # Bowel Movements 1 1 # Incontinent Bowel Movements 1 Narrative: doing better no tremors wiggled feet to command awake - Urinary Catheter Management Coude Cath placed during this visit: yes Reason for continuing: Hourly intake/output Insertion date: 05/31/18 Insertion time: 23:00 Objective Laboratory Results - last 24 hr 06/02/18 06/02/18 06/02/18 12:00 16:22 20:08 WBC RBC Hgb Hct MCV MCH MCHC RDW Plt Count MPV Neut % (Auto) Lymph % (Auto) [place] % (Auto) Eos % (Auto) Baso % (Auto) Neut # (Auto) Lymph # (Auto) [place] # (Auto) Eos # (Auto) Baso # (Auto) WBC Differential Differential Comment PT INR APTT Sodium Potassium Chloride Carbon Dioxide Anion Gap BUN Creatinine Estimated GFR POC Glucose 195 H 197 H 142 H Random Glucose Lactic Acid Calcium Phosphorus Magnesium Total Bilirubin AST ALT Alkaline Phosphatase Ammonia C-Reactive Protein Total Protein Albumin Triglycerides Cholesterol LDL Cholesterol, Calc HDL Cholesterol Cholesterol/HDL Ratio Amylase Lipase Free T4 Free T3 06/02/18 06/03/18 06/03/18 23:42 04:13 05:25 WBC 13.8 H RBC 2.68 L Hgb 8.5 L Hct 25.2 L MCV 93.9 MCH 31.8 MCHC 33.8 RDW 13.7 Plt Count 254 MPV 8.2 Neut % (Auto) 73.3 H Lymph % (Auto) 8.7 L [place] % (Auto) 14.1 H Eos % (Auto) 3.5 Baso % (Auto) 0.4 Neut # (Auto) 10.1 H Lymph # (Auto) 1.2 [place] # (Auto) 2.0 H Eos # (Auto) 0.5 H Baso # (Auto) 0.1 WBC Differential . Differential Comment Auto diff final PT INR APTT Sodium Potassium Chloride Carbon Dioxide Anion Gap BUN Creatinine Estimated GFR POC Glucose 182 H 166 H Random Glucose Lactic Acid Calcium Phosphorus Magnesium Total Bilirubin AST ALT Alkaline Phosphatase Ammonia C-Reactive Protein Total Protein Albumin Triglycerides Cholesterol LDL Cholesterol, Calc HDL Cholesterol Cholesterol/HDL Ratio Amylase Lipase Free T4 Free T3 06/03/18 06/03/18 06/03/18 05:25 05:25 05:25 WBC RBC Hgb Hct MCV MCH MCHC RDW Plt Count MPV Neut % (Auto) Lymph % (Auto) [place] % (Auto) Eos % (Auto) Baso % (Auto) Neut # (Auto) Lymph # (Auto) [place] # (Auto) Eos # (Auto) Baso # (Auto) WBC Differential Differential Comment PT 11.3 INR 1.1 APTT 38.5 H Sodium 137 Potassium 4.6 Chloride 106 Carbon Dioxide 20.6 L Anion Gap 10 BUN 99 H Creatinine 5.57 H Estimated GFR 10 L POC Glucose Random Glucose 155 H Lactic Acid 0.9 Calcium 8.0 L Phosphorus 4.8 Magnesium 1.5 Total Bilirubin 0.3 AST 17 ALT 15 Alkaline Phosphatase 101 Ammonia C-Reactive Protein Total Protein 4.9 L Albumin 1.9 L Triglycerides Cholesterol LDL Cholesterol, Calc HDL Cholesterol Cholesterol/HDL Ratio Amylase Lipase Free T4 Free T3 06/03/18 06/03/18 06/03/18 05:25 05:25 09:06 WBC RBC Hgb Hct MCV MCH MCHC RDW Plt Count MPV Neut % (Auto) Lymph % (Auto) [place] % (Auto) Eos % (Auto) Baso % (Auto) Neut # (Auto) Lymph # (Auto) [place] # (Auto) Eos # (Auto) Baso # (Auto) WBC Differential Differential Comment PT INR APTT Sodium Potassium Chloride Carbon Dioxide Anion Gap BUN Creatinine Estimated GFR POC Glucose 130 H Random Glucose Lactic Acid Calcium Phosphorus Magnesium Total Bilirubin AST ALT Alkaline Phosphatase Ammonia 18 C-Reactive Protein 18.00 H Total Protein Albumin Triglycerides 75 Cholesterol 67 L LDL Cholesterol, Calc 20 HDL Cholesterol 32.0 L Cholesterol/HDL Ratio 2.09 Amylase 43 Lipase 140 Free T4 1.06 Free T3 0.97 L Microbiology 05/31/18 08:10 Gram Stain - Final Sputum - Endotracheal Sputum Culture - Final Heavy growth normal respiratory xuan 05/31/18 00:05 Urine Culture - Final Catheterized Urine Proteus mirabilis 05/31/18 07:45 Aerobic Blood Culture - Preliminary Blood - Peripheral No growth in 2 days Anaerobic Blood Culture - Preliminary No growth in 2 days 05/31/18 07:50 Aerobic Blood Culture - Preliminary Blood - Peripheral No growth in 2 days Anaerobic Blood Culture - Preliminary No growth in 2 days Review/Management - Review/Management Plan: imp mri and b12 nl eeg nl tremors not sz could try precedex he should do well neurowise 06/03/18 doing well now to be extubated today will sign off
[2018-06-03 09:30] LABS: ABG PCO2 36 mmHg (38-42); ABG PO2 120 mmHg (61-120)
--- NOTE | 2018-06-03 10:56 | P.PNCC ---
Subjective Subjective Remarks/Hospital Course: 05/31: This is a 72-year-old male. He is a resident of [facility] and [facility]. Date of admission 05/30/2018. Originally admitted to hospitalist service and now under our service 05/31/2018. Past medical history includes fibromyalgia, dementia, history of CVA, obstructive sleep apnea, atrial fibrillation/chronic, COPD, chronic kidney disease stage IV, BPH, diabetes mellitus, elevated BMI, atherosclerotic vascular disease, nephrolithiasis, liver cirrhosis, essential hypertension, hyperlipidemia, gout, history of right ice C occlusion, hypothyroidism, dysphagia, constipation, diplopia, CABG 2, TURP, cardiac stent, right percutaneous lithotripsy, liver biopsy and bilateral hand surgery. Patient is also on chronic benzodiazepines. Patient presented to [facility] on 05/30/2018 with history of being found on the floor between his bed in the window. His head was against the dresser. He was able to tell if he hit his head. There is a large amount about was in the floor but not bleeding from the head. He has excoriations on his back and his left knee and right wrist. CT brain at this facility was negative. Patient is on apixaban and aspirin at home. Patient was noted to have a urinary tract infection was started on cefepime and gentamicin by ED physician. Throughout the night, patient became more confused and is found to be obtunded earlier this morning was intubated and centralized placed due to hypotension. He is currently on norepinephrine drip at 12 mcg/min. Troponin was 0.05. Patient had a leukocytosis, normocytic anemia, creatinine 6.6/ baseline around 2.5 and TSH is 0.356. We are asked to admit the patient at this time. He is currently intubated and arousable in room C 25 in ED. No family available. 06/01: Remains sedated, orally intubated on mechanical ventilation. Had generalized tonic-clonic movements which were questionable last night for which he was given Ativan 4 mg IV and loaded with Cerebyx. EEG this morning pending. Neurology consult noted. Head CT negative for bleed. Negligible urine output. Worsening BUN/creatinine. On vasopressin low-dose currently, off all other pressors. 06/02: Remains sedated, arousable, orally intubated on mechanical ventilation. Not following commands unenlightening sedation. 06/03: Arouses off sedation, not following commands. Orally intubated on mechanical ventilation. On CPAP trials. Objective Vital Signs / I&O: Vital Signs 06/02/18 11:00 06/02/18 12:00 06/02/18 13:39 Temperature 99.2 F Pulse Rate 97 H 98 H Respiratory Rate 17 17 14 Blood Pressure 119/49 L Pulse Oximetry 99 99 06/02/18 14:00 06/02/18 15:18 06/02/18 16:00 Temperature 99.9 F H Pulse Rate 96 H 96 H 98 H Respiratory Rate 13 13 Blood Pressure 128/61 Pulse Oximetry 99 06/02/18 16:21 06/02/18 18:00 06/02/18 20:00 Temperature 98.6 F Pulse Rate 102 H 96 H Respiratory Rate 14 16 Blood Pressure 125/58 L Pulse Oximetry 98 99 06/02/18 20:15 06/02/18 20:17 06/02/18 22:00 Temperature Pulse Rate 100 H 104 H Respiratory Rate 18 18 Blood Pressure Pulse Oximetry 99 06/02/18 22:34 06/02/18 23:34 06/03/18 00:00 Temperature 99.6 F Pulse Rate 92 H 97 H Respiratory Rate 16 16 16 Blood Pressure 109/53 L Pulse Oximetry 98 99 06/03/18 01:13 06/03/18 02:00 06/03/18 03:31 Temperature Pulse Rate 94 H 87 Respiratory Rate 16 17 Blood Pressure Pulse Oximetry 99 06/03/18 04:00 06/03/18 04:17 06/03/18 06:00 Temperature 98.9 F Pulse Rate 107 H 100 H Respiratory Rate 17 20 Blood Pressure 118/57 L Pulse Oximetry 99 100 06/03/18 07:00 06/03/18 10:17 Temperature Pulse Rate 96 H Respiratory Rate 16 17 Blood Pressure Pulse Oximetry 100 98 Intake & Output 06/02/18 06/03/18 06/03/18 18:59 06:59 18:59 Intake Total 1671 / 1671 813 / 813 Output Total 575 / 575 250 / 250 Balance 1096 / 1096 563 / 563 Weight 122.9 kg Intake: IV 1054 / 1054 208 / 208 Sodium Bicarbonate 8.4% Inj 50 1000 / 1000 MEQ In 1/2 Normal Saline Inj 950 ML @ 42 mls/hr IV.CONT . [id number] [facility] Rx#:[id number] Cerebyx Inj 200 MGPE In NS Inj 54 / 54 108 / 108 50 ML @ 216 mls/hr IV.SIG Q8HR [facility] Rx#:[id number] Rocephin Inj 2,000 MG In NS Inj 100 / 100 100 ML @ 200 mls/hr IV.SIG Q24H [facility] Rx#:[id number] Tube Feeding 517 / 517 485 / 485 Tube Irrigant 100 / 100 120 / 120 Output: Stool 0 / 0 Urine Amount (Catheter) 575 / 575 250 / 250 Coude 575 / 575 250 / 250 Other: Date of Last Bowel Movement 06/02/18 06/03/18 # Bowel Movements 1 1 # Incontinent Bowel Movements 1 Result Diagrams: 06/03/18 05:25 06/03/18 05:25 Objective Remarks: GENERAL: 72-year-old male currently orotracheally intubated SKIN: Warm and dry. Excoriations on back, will left knee anteriorly and right wrist HEAD: Atraumatic. Normocephalic. EYES: Pupils equal and round bilaterally and minimally reactive. No scleral icterus. No injection or drainage. ENT: No nasal bleeding or discharge. Mucous membranes pink and moist. NECK: Trachea midline. No JVD. CARDIOVASCULAR: S1-S2 regular, no gallop or murmur. RESPIRATORY: Orally intubated on mechanical ventilation, scattered rhonchi bilaterally, no wheezing. Bibasilar crackles. GASTROINTESTINAL: Abdomen soft, non-tender, obese. Hypoactive bowel sounds appreciated. MUSCULOSKELETAL: Extremities trace bilateral lower extremity edema. No obvious deformities. NEUROLOGICAL: Arouses off sedation, not following commands. Orally intubated on mechanical ventilation. Withdraws all 4 extremity spontaneously. Assessment and Plan - Assessment and Plan Plan: Neuro/Psych: Acute encephalopathy likely toxic metabolic secondary to severe sepsis Chronic benzodiazepine use CVA Dementia disorder NOS History of fibromyalgia Adjustment disorder with depressive features History of diplopia Currently on propofol/fentanyl drips for sedation/analgesia while intubated Goal of RASS of -[address] brain on admission revealed no acute intracranial findings Continue pregabalin 75 mg twice daily for peripheral neuropathy. Holding alprazolam 0.25 mg 3 times daily for anxiety. Questionable seizure last night, loaded with Cerebyx. EEG pending. Neuro consult noted. Repeat Head CT negative for bleed. 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 Follow CVP Off levo fed. 2D echo 07/09 revealed EF of 40-45%. LV dilatation. PAP 31 mmHg. Basilar inferolateral and inferior lateral hypokinesis. Repeat echocardiogram limited ordered 05/31 Initial troponin 0 0.05 Heart catheterization 09/08 revealed patent LAURA to LAD and SVG to RCA. 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 Resp: Acute respiratory failure History of WERNER History of COPD Prior history of tobaccoism [facility] / Ventilator bundle Albuterol/ipratropium aerosols every 4 hours with albuterol aerosols every 2 hours as needed for dyspnea Post intubation chest x-ray reveals patchy infiltrate right midlung region. Tolerating CPAP trials. Plan to extubate today Holding Tiotropium 80 mg daily while on ipratropium GI: Gastroesophageal reflux disease history of gastric ulcer Constipation Hypoalbuminemia History of dysphasia History of liver biopsy with diagnosis of cirrhosis? Tolerating tube feeds. Hold for possible extubation today Lansoprazole/sucralfate for GI prophylaxis. Patient is on omeprazole/ pantoprazole? Daily at half-way. Polyethylene glycol 17 g twice daily for bowel regimen : BPH status post TURP History of nephrolithiasis status post right percutaneous lithotripsy 2004 Resume tamsulosin 0.4 mg daily when able Maintain [place] catheter for accurate I's and O's Endo: Diabetes mellitus 1.5 treat as 1.0 Hypothyroidism History of gout Holding insulin glargine 25 units twice daily and aspirin 8100 3 times daily with meals. Sliding-scale insulin with aspart insulin/high regimen with Accu-Cheks every 4 hours to maintain euglycemia Decrease levothyroxine from 200-175 mg daily. TSH was 0.356. Renal: Acute kidney injury in the setting of chronic kidney disease stage IV abdomen/pelvis CT with nonobstructing right renal stone Check urine electrolytes and eosinophils Avoid nephrotoxic drug\ Monitor urine output with accurate I's and O's. Ordered bicarb gtt for metabolic acidosis. Consulted nephrology for further evaluation. Bumex 1 mg IV now. Possibly needs more diuresis. May require hemodialysis. Heme: Leukocytosis Normocytic anemia/anemia of chronic kidney disease Chronic apixaban use 2.5 mg twice daily Resume apixaban 2.5 mg twice daily Monitor CBC daily. Follow trends. No indication for transfusion of blood products at this time. Type and screen ID: History of Enterococcus faecalis bacteremia History of staph saprophyticus urinary tract infection Received cefepime and gentamicin in the ED. We will treat with cefepime 500 mg daily/renally dosed Infectious disease was consulted for further antibiotic recommendations/ management CT abdomen/pelvis with nonobstructing right renal stone Holding doxycycline 100 mg twice daily/home medication Resume clotrimazole 1% to affected areas twice daily. Blood cultures 2 05/31 negative Urine cultures with Proteus Sputum pending Influenza a and B negative Legionella and pneumococcal urinary antigens negative MSK: FEN: Replace electrolytes as clinically indicated Access -Left subclavian CVL day (05/31) placed by ED physician Prophylaxis -GI -lansoprazole/sucralfate -DVT -SCD/apixaban will provide DVT prophylaxis Consulted palliative care to assist with deciding goals of therapy. Critical care 35 minutes admission
--- NOTE | 2018-06-03 11:59 | P.PNNP ---
Subjective Interval history: patient is on the ventilator, CPAP trial. Non oliguric, but urine output may have declined. Creatinine is slightly better, but BUN has increased. Physical Exam Vital signs: Vital Signs 06/02/18 12:00 06/02/18 13:39 06/02/18 14:00 Temperature 99.2 F Pulse Rate 98 H 96 H Respiratory Rate 17 14 Blood Pressure 119/49 L Pulse Oximetry 99 99 06/02/18 15:18 06/02/18 16:00 06/02/18 16:21 Temperature 99.9 F H Pulse Rate 96 H 98 H Respiratory Rate 13 13 14 Blood Pressure 128/61 Pulse Oximetry 99 98 06/02/18 18:00 06/02/18 20:00 06/02/18 20:15 Temperature 98.6 F Pulse Rate 102 H 96 H Respiratory Rate 16 18 Blood Pressure 125/58 L Pulse Oximetry 99 99 06/02/18 20:17 06/02/18 22:00 06/02/18 22:34 Temperature Pulse Rate 100 H 104 H Respiratory Rate 18 16 Blood Pressure Pulse Oximetry 98 06/02/18 23:34 06/03/18 00:00 06/03/18 01:13 Temperature 99.6 F Pulse Rate 92 H 97 H Respiratory Rate 16 16 16 Blood Pressure 109/53 L Pulse Oximetry 99 99 06/03/18 02:00 06/03/18 03:31 06/03/18 04:00 Temperature 98.9 F Pulse Rate 94 H 87 107 H Respiratory Rate 17 17 Blood Pressure 118/57 L Pulse Oximetry 99 06/03/18 04:17 06/03/18 06:00 06/03/18 07:00 Temperature Pulse Rate 100 H 96 H Respiratory Rate 20 16 Blood Pressure Pulse Oximetry 100 100 06/03/18 10:17 06/03/18 11:45 Temperature Pulse Rate 102 H Respiratory Rate 17 17 Blood Pressure Pulse Oximetry 98 Intake & Output 06/02/18 06/03/18 06/03/18 18:59 06:59 18:59 Intake Total 1671 / 1671 813 / 813 Output Total 575 / 575 250 / 250 Balance 1096 / 1096 563 / 563 Weight 122.9 kg Intake: IV 1054 / 1054 208 / 208 Sodium Bicarbonate 8.4% Inj 50 1000 / 1000 MEQ In 1/2 Normal Saline Inj 950 ML @ 42 mls/hr IV.CONT . [id number] [facility] Rx#:[id number] Cerebyx Inj 200 MGPE In NS Inj 54 / 54 108 / 108 50 ML @ 216 mls/hr IV.SIG Q8HR [facility] Rx#:[id number] Rocephin Inj 2,000 MG In NS Inj 100 / 100 100 ML @ 200 mls/hr IV.SIG Q24H [facility] Rx#:[id number] Tube Feeding 517 / 517 485 / 485 Tube Irrigant 100 / 100 120 / 120 Output: Stool 0 / 0 Urine Amount (Catheter) 575 / 575 250 / 250 Coude 575 / 575 250 / 250 Other: Date of Last Bowel Movement 06/02/18 06/03/18 # Bowel Movements 1 1 # Incontinent Bowel Movements 1 Narrative: Current Medications Albuterol (Albuterol Neb (Prn)) 2.5 mg NEB Q2HR NEB PRN PRN Reason: SHORTNESS OF BREATH/WHEEZING Albuterol (Duoneb Neb ([facility])) 1 ampul NEB Q4HR NEB [facility] Last Admin: 06/03/18 11:45 Dose: 1 ampul Apixaban (Eliquis) 2.5 mg PO BID [facility] Last Admin: 06/03/18 08:59 Dose: 2.5 mg Artificial Tears (Genteal Severe Dry Eye Relief 0.3% Opth Gel) 1 drops EACH EYE BID [facility] Last Admin: 06/03/18 09:00 Dose: 1 drops Ascorbic Acid (Vitamin C) 500 mg PO DAILY [facility] Last Admin: 06/03/18 08:59 Dose: 500 mg Aspirin (Aspirin Chew) 81 mg PO DAILY [facility] Last Admin: 06/03/18 08:59 Dose: 81 mg Atorvastatin Calcium (Lipitor) 40 mg PO DAILY [facility] Last Admin: 06/03/18 08:59 Dose: 40 mg Bisacodyl (Dulcolax Supp) 10 mg RECTAL DAILY PRN PRN Reason: SEVERE CONSITIPATION Bumetanide (Bumex Inj) 2 mg IV.PUSH TID [facility] Chlorhexidine Gluconate (Chlorhexidine 2% Cloth) 3 pack TOPICAL DAILY@0400 [facility] Stop: 06/06/18 03:59 Last Admin: 06/03/18 04:57 Dose: 3 pack Chlorhexidine Gluconate (Chlorhexidine 2% Cloth) 3 pack TOPICAL DAILY@0400 PRN PRN Reason: Extra cloth needed Stop: 06/06/18 03:59 Chlorhexidine Gluconate (Chlorhexidine 2% Cloth) 3 pack TOPICAL DAILY@0400 [facility] Stop: 06/07/18 03:59 Last Admin: 06/03/18 04:56 Dose: Not Given Chlorhexidine Gluconate (Chlorhexidine 2% Cloth) 3 pack TOPICAL DAILY@0400 PRN PRN Reason: Extra cloth needed Stop: 06/07/18 03:59 Clotrimazole (Lotrimin 1% Cream) 1 applicatio TOPICAL BID [facility] Last Admin: 06/03/18 09:00 Dose: 1 applicatio Dextrose (D50w Vial) 50 ml IV.PUSH UNSCH PRN PRN Reason: PER HYPOGLYCEMIA PROTOCOL Last Admin: 05/31/18 21:56 Dose: 50 ml Doxazosin Mesylate (Cardura) 1 mg PO DAILY [facility] Ferrous Sulfate (Ferrrous Sulfate Liq) 300 mg PO DAILY [facility] Last Admin: 06/03/18 08:59 Dose: 300 mg Glucagon (Glucagon Inj) 1 mg OTHER PRN PRN PRN Reason: for Hypoglycemia Protocol Norepinephrine Bitartrate (Levophed-Dextrose 4 Mg/250 Ml Drip) 4 mg in 250 mls @ 7.5 mls/hr IV.SIG TITRATE PRN; Protocol PRN Reason: Per Protocol Last Titration: 06/01/18 07:04 Dose: 0 mcg/min, 0 mls/hr Fentanyl (Fentanyl 10 Mcg/Ml Premix Drip) 2,500 mcg in 250 mls @ 5 mls/hr IV.SIG TITRATE PRN; Protocol PRN Reason: Per Protocol Last Titration: 06/01/18 15:28 Dose: Infused Propofol (Diprivan 1000 Mg/100 Ml Inj) 1,000 mg in 100 mls @ 4.082 mls/hr IV.CONT TITRATE PRN; Protocol PRN Reason: Per Protocol Last Admin: 06/02/18 23:48 Dose: 5 mcg/kg/min, 4.08 mls/hr Acetaminophen (Ofirmev Inj) 1,000 mg in 100 mls @ 400 mls/hr IV.SIG Q8H PRN PRN Reason: FEVER Vasopressin 40 unit/ Sodium (Chloride) 100 mls @ 6 mls/hr IV.CONT CONT [facility]; Protocol Last Infusion: 06/02/18 10:00 Dose: 0 units/min, 0 mls/hr Midazolam HCl (Versed Inj) 50 mg in 50 mls @ 1 mls/hr IV.CONT TITRATE PRN; Protocol PRN Reason: Per Protocol Ceftriaxone Sodium 2,000 mg/ (Sodium Chloride) 100 mls @ 200 mls/hr IV.SIG Q24H [facility] Last Infusion: 06/02/18 19:29 Dose: Infused Insulin Aspart (Novolog Insulin [employer] Sugar Inj) 0 unit SQ Q4HR [facility]; Protocol Last Admin: 06/03/18 08:00 Dose: Not Given Lactulose (Lactulose Liq) 30 ml PO DAILY PRN PRN Reason: SEVERE CONSITIPATION Lansoprazole (Prevacid Solutab) 30 mg NG/OG DAILY [facility] Last Admin: 06/03/18 08:59 Dose: 30 mg Levothyroxine Sodium (Synthroid) 100 mcg PO DAILY@0600 [facility] Last Admin: 06/03/18 06:33 Dose: 100 mcg Levothyroxine Sodium (Synthroid) 75 mcg PO DAILY@0600 [facility] Last Admin: 06/03/18 06:33 Dose: 75 mcg Mupirocin (Bactroban 2% Nasal Oint) 1 applicatio EACH NARE BID [facility] Stop: 06/05/18 21:01 Last Admin: 06/03/18 08:59 Dose: 1 applicatio Ondansetron HCl (Zofran Inj) 4 mg IV.PUSH Q6H PRN PRN Reason: NAUSEA OR VOMITING Pt Own Med: Florastor 250mg Po Tid 1 each PO TID [facility] Polyethylene Glycol (Miralax) 17 gm NG/OG BID [facility] Last Admin: 06/03/18 08:59 Dose: 17 gm Pregabalin (Lyrica) 75 mg PO BID [facility] Last Admin: 06/03/18 08:59 Dose: 75 mg Sennosides (Senokot) 17.2 mg PO Q12H PRN PRN Reason: Moderate Constipation Sodium Chloride (Ns Flush) 2 ml IV.FLUSH BID [facility] Last Admin: 06/03/18 09:00 Dose: 2 ml Sodium Chloride (Ns Flush) 2 ml IV.FLUSH PRN PRN PRN Reason: FLUSH AFTER USING IV ACCESS Sucralfate (Carafate) 1 gm PO TIDAC [facility] Last Admin: 06/03/18 08:59 Dose: 1 gm - Constitutional Comments: GENERAL: intubated, on the ventilator. Obese, ill appearing. SKIN: Warm and dry. HEAD: Normocephalic. EYES: No scleral icterus. No injection or drainage. NECK: Supple, trachea midline. No JVD or lymphadenopathy. CARDIOVASCULAR: irregular. RESPIRATORY: bilateral wheezing and rhonchi GASTROINTESTINAL: Abdomen soft, non-tender, nondistended. EXTREMITIES: 2-3 + edema. Scrotal edema. - Urinary Catheter Management Coude Cath placed during this visit: yes Reason for continuing: Hourly intake/output Insertion date: 05/31/18 Insertion time: 23:00 Assessment and Plan - Assessment (1) Acute on chronic kidney failure Code(s): N17.9 - Acute kidney failure, unspecified; N18.9 - Chronic kidney disease, unspecified Status: Acute Qualifiers: Acute renal failure type: unspecified Chronic kidney disease stage: stage 3 (moderate) Qualified Code(s): N17.9 - Acute kidney failure, unspecified; N18.3 - Chronic kidney disease, stage 3 (moderate) Plan: His baseline is 2.5 (CKD 4). He may have underlying diabetic nephropathy. Acute decline may be due to renal hypoperfusion secondary to hypotension; possibly infection Some improvement in creatinine, no immediate need for dialysis. He is currently non oliguric Demonstrates signs of fluid overload, stop IVF, start scheduled Bumex. Avoid nephrotoxic agents Imaging shows non obstructing stone, history of lithotripsy in the past. (2) Acute alteration in mental status Code(s): R41.82 - Altered mental status, unspecified Status: Acute Plan: May be due to uremia, infection. (3) Septic shock Code(s): A41.9 - Sepsis, unspecified organism; R65.21 - Severe sepsis with septic shock Status: Acute Plan: Antibiotics as ordered, continue supportive care He is being treated for UTI. (4) Diabetes mellitus Code(s): E11.9 - Type 2 diabetes mellitus without complications Status: Acute Plan: Maintain blood glucose 140-180 mg/dL while admitted.
[2018-06-03 14:16] LABS: Hemoglobin A1c 7.3 % (4.3-6.0)
--- NOTE | 2018-06-03 14:52 | ECHRPT ---
Indication: ATRIAL FIB/ FLUTTER CONCLUSIONS Normal left ventricular size. Moderate concentric left ventricular hypertrophy. The left ventricular systolic function is normal with an ejection fraction of 60-65%. Trace mitral valve regurgitation. Trace aortic valve regurgitation. There is trace tricuspid valve regurgitation. The estimated pulmonary arterial pressure is 63.3 mmHg. There is estimated gpfkerup-ar-cdcycv pulmonary hypertension present (range 60-70 mmHg). There is less than 50% respiratory change in dimension of the inferior vena cava (abnormal). A prominent epicardial fat pad is present. BP: / HR: Rhythm: Sinus MEASUREMENTS (Male / Female) Normal Values Technical Quality:Fair 2D ECHO LV Diastolic Diameter PLAX 5.8 cm 4.2 - 5.9 / 3.9 - 5.3 cm LV Systolic Diameter PLAX 4.2 cm IVS Diastolic Thickness 1.5 cm 0.6 - 1.0 / 0.6 - 0.9 cm LVPW Diastolic Thickness 1.5 cm 0.6 - 1.0 / 0.6 - 0.9 cm LV Relative Wall Thickness 0.5 RV Internal Dim ED PLAX 2.9 cm LVOT Diameter 2.1 cm Aortic Root Diameter 2.6 cm LA Systolic Diameter LX 4.2 cm 3.0 - 4.0 / 2.7 - 3.8 cm M-MODE AV Cusp Separation MM 1.9 cm DOPPLER AV Peak Velocity 150.5 cm/s AV Peak Gradient 9.1 mmHg AV Mean Gradient 5.0 mmHg AV Velocity Time Integral 28.1 cm LVOT Peak Velocity 63.7 cm/s LVOT Peak Gradient 1.6 mmHg LVOT Velocity Time Integral 10.4 cm AV Area Cont Eq vti 1.3 cm AV Area Cont Eq pk 1.5 cm Mitral E Point Velocity 103.8 cm/s Mitral A Point Velocity 119.3 cm/s Mitral E to A Ratio 0.9 LV E' Lateral Velocity 15.5 cm/s Mitral E to LV E' Lateral Ratio 6.7 LV E' Septal Velocity 9.9 cm/s Mitral E to LV E' Septal Ratio 10.4 TR Peak Velocity 365.0 cm/s TR Peak Gradient 53.3 mmHg Right Atrial Pressure 10.0 mmHg Pulmonary Artery Systolic Pressu 63.3 mmHg Right Ventricular Systolic Press 63.3 mmHg PV Peak Velocity 79.0 cm/s PV Peak Gradient 2.5 mmHg FINDINGS LEFT VENTRICLE Normal left ventricular size. Moderate concentric left ventricular hypertrophy. The left ventricular systolic function is normal with an estimated ejection fraction in the range of 60-65%. RIGHT VENTRICLE Normal right ventricular size and systolic function. LEFT ATRIUM The left atrial size is normal. RIGHT ATRIUM The right atrial size is normal. ATRIAL SEPTUM No atrial level shunt is demonstrated by color flow Doppler interrogation. AORTA The aortic root and proximal ascending aorta are normal in size on limited imaging. MITRAL VALVE Trace mitral valve regurgitation. AORTIC VALVE Trace aortic valve regurgitation. Trileaflet aortic valve. TRICUSPID VALVE There is trace tricuspid valve regurgitation. The estimated pulmonary arterial pressure is 63.3 mmHg. There is estimated umarjlca-js-fenspl pulmonary hypertension present (range 60-70 mmHg). PULMONARY VALVE No pulmonary valve regurgitation or stenosis. VESSELS There is less than 50% respiratory change in dimension of the inferior vena cava (abnormal). PERICARDIUM A prominent epicardial fat pad is present. No pericardial effusion. Nguyễn Ratliff MD (Electronically Signed) Final Date:03 June 2018 14:51
--- NOTE | 2018-06-03 16:33 | XR ---
EXAM DATE: 06/03/2018 4:28 PM EDT AGE/SEX: 72 years / Male INDICATIONS: Intubated patient who grimaces whenever right upper extremity is manipulated. Body stepan a. CLINICAL DATA: This is the patient's subsequent encounter. Patient reports that signs and symptoms h ave been present for 1 day and indicates a pain score of Nonresponsive. MEDICAL/SURGICAL HISTORY: Chronic obstructive pulmonary disease. Hypertension. Congestive hea rt failure. A-fib. Diabetes. CABG. COMPARISON: No prior exams available for comparison. FINDINGS: Bony structures are intact and in normal alignment. Joints are intact without dislocation or signifi cant arthropathy. Osseous density is normal. Soft tissues are unremarkable. No radiopaque foreign bodies seen. CONCLUSION: Unremarkable examination of the elbow. Electronically signed by: Rodney Segundo MD 06/03/2018 4:32 PM EDT
--- NOTE | 2018-06-03 16:36 | XR ---
EXAM DATE: 06/03/2018 4:33 PM EDT AGE/SEX: 72 years / Male INDICATIONS: Intubated patient who grimaces when left arm is manipulated. Body edema. CLINICAL DATA: This is the patient's initial encounter. Patient reports that signs and symptoms have been present for 1 day and indicates a pain score of Nonresponsive. MEDICAL/SURGICAL HISTORY: Chronic obstructive pulmonary disease. Hypertension. Congestive hea rt failure. A-Fib. Diabetes. CABG. COMPARISON: [facility], FOREARM LEFT (2VWS), 07/26/2017. . FINDINGS: Bony structures are intact and in normal alignment. Joints are intact without dislocation or signifi cant arthropathy. Osseous density is normal. Soft tissues are unremarkable. No radiopaque foreign bodies seen. CONCLUSION: Unremarkable exam. Electronically signed by: Rodney Segundo MD 06/03/2018 4:34 PM EDT
[2018-06-03] MEDS: Doxazosin 1 MG Tablet PO SCH (16:41)
--- NOTE | 2018-06-03 16:45 | XR ---
EXAM DATE: 06/03/2018 4:37 PM EDT AGE/SEX: 72 years / Male INDICATIONS: Shortness of breath. CLINICAL DATA: This is the patient's subsequent encounter. Patient reports that signs and symptoms h ave been present for 4 - 6 days and indicates a pain score of Nonresponsive. MEDICAL/SURGICAL HISTORY: Chronic obstructive pulmonary disease. Hypertension. Congestive hea rt failure. Diabetes. A-fib. CABG. COMPARISON: [facility], CHEST 1V SINGLE AP, 06/02/2018. . FINDINGS: The support devices remain in place. There is no pneumothorax. There is mild improvement in the previ ously noted left lower lung infiltrate. There is a stable mild infiltrate in the right lung base. The re has been no new or significant changes with the appearance of the heart and lungs compared to the prior exam. CONCLUSION: 1. Mild improvement in the left lower lung infiltrate. 2. Stable mild right lower lung infiltrate. Electronically signed by: Rodney Segundo MD 06/03/2018 4:44 PM EDT
--- NOTE | 2018-06-03 16:47 | XR ---
EXAM DATE: 06/03/2018 4:45 PM EDT AGE/SEX: 72 years / Male INDICATIONS: Intubated patient who grimaces when right arm is manipulated. Body edema. CLINICAL DATA: This is the patient's initial encounter. Patient reports that signs and symptoms have been present for 1 day and indicates a pain score of Nonresponsive. MEDICAL/SURGICAL HISTORY: Chronic obstructive pulmonary disease. Hypertension. Congestive hea rt failure. A-Fib. Diabetes. CABG. COMPARISON: [facility], SHOULDER RIGHT COMPLETE (>2VWS), 10/18/2011. . FINDINGS: Bony structures are intact and in normal alignment. Joints are intact without dislocation or signifi cant arthropathy. Osseous density is normal. Soft tissues are unremarkable. No radiopaque foreign bodies seen. CONCLUSION: Unremarkable right shoulder. Electronically signed by: Rodney Segundo MD 06/03/2018 4:46 PM EDT
--- NOTE | 2018-06-03 16:47 | XR ---
EXAM DATE: 06/03/2018 4:41 PM EDT AGE/SEX: 72 years / Male INDICATIONS: Intubated patient who grimaces when left arm is manipulated. Body edema. CLINICAL DATA: This is the patient's initial encounter. Patient reports that signs and symptoms have been present for 1 day and indicates a pain score of Nonresponsive. MEDICAL/SURGICAL HISTORY: Chronic obstructive pulmonary disease. Hypertension. Congestive hea rt failure. A-fib. Diabetes. CABG. COMPARISON: No prior exams available for comparison. FINDINGS: Bony structures are intact and in normal alignment. Joints are intact without dislocation or signifi cant arthropathy. Osseous density is normal. Soft tissues are unremarkable. No radiopaque foreign bodies seen. CONCLUSION: Unremarkable left shoulder. Electronically signed by: Rodney Segundo MD 06/03/2018 4:45 PM EDT
[2018-06-03] MEDS ORDERED: Amiodarone Inj 150 MG in Dextrose 5% in Water Inj 97 ML IV.SIG ONE ×2 (17:33)
[2018-06-03] MEDS: Metoprolol Inj 5 MG/5 ML Vial IV.PUSH PRN ×2 (17:35→17:58)
[2018-06-03] MEDS: Vasopressin Inj 40 UNIT in Sodium Chlor 0.9% Inj 98 ML IV.CONT SCH (21:35)
[2018-06-03] MEDS ORDERED: Phenylephrine Inj 160 MG in Sodium Chlor 0.9% Inj 484 ML IV.CONT PRN (23:29)
[2018-06-03] MEDS ORDERED: Digoxin Inj 500 MCG/2 ML Ampul IV.PUSH ONE (23:31)
[2018-06-03] MEDS: Mag Sulf 1 gm/100 ml Premix 100 ML IV.SIG SCH (23:52)
[2018-06-04] MEDS: Oral Hygiene Kit OROPHARYNG SCH ×4 (00:24→16:00)
[2018-06-04] MEDS: Insulin NovoLOG Aspart Correctional Sugar Inj SQ SCH ×6 (00:24→20:01)
[2018-06-04] MEDS: Mag Sulf 1 gm/100 ml Premix 100 ML IV.SIG SCH (01:16)
[2018-06-04] MEDS: Chlorhexidine Gluconate 2% 1 Pack (2 Cloths) TOPICAL SCH ×2 (05:00→05:03)
[2018-06-04 05:44] LABS: Baso % (Auto) 0.2 % (0.0-2.0); Eos # (Auto) 0.2 th/mm3 (0.0-0.4); Eos % (Auto) 1.1 % (0.0-4.0); Hematocrit 24.1 % (39.0-51.0); Lymph # (Auto) 1.1 th/mm3 (1.0-4.8); Lymph % (Auto) 6.9 % (9.0-44.0); Mean Corpuscular HGB Conc 33.2 % (32.0-36.0); Mean Corpuscular Hemoglobin 31.4 pg (27.0-34.0); Mean Corpuscular Volume 94.6 fL (80.0-100.0); Mean Platelet Volume 8.1 fL (7.0-11.0); Mono # (Auto) 2.3 th/mm3 (0.0-0.9); Mono % (Auto) 13.9 % (0.0-8.0); Neut # (Auto) 12.9 th/mm3 (1.8-7.7); Neut % (Auto) 77.9 % (16.0-70.0); Platelet Count 228 th/mm3 (150-450); Red Blood Count 2.55 mil/mm3 (4.50-5.90); Red Cell Distribution Width 13.7 % (11.6-17.2); White Blood Count 16.5 th/mm3 (4.0-11.0)
[2018-06-04 06:10] LABS: Albumin 1.8 g/dL (3.4-5.0); Calcium 7.8 mg/dL (8.5-10.1); Carbon Dioxide 21.2 meq/L (21.0-32.0); Phosphorus 5.1 mg/dL (2.5-4.9); Potassium 4.7 meq/L (3.5-5.1)
[2018-06-04 06:11] LABS: Magnesium 1.9 mg/dL (1.5-2.5); Phosphorus 4.9 mg/dL (2.5-4.9)
[2018-06-04 06:14] LABS: Troponin I 0.06 ng/mL (0.02-0.05)
[2018-06-04 07:57] LABS: Dohle Bodies Present; Lymphocytes 5 % (9-44); Monocytes 9 % (0-8); Platelet Estimate Normal (Normal); Platelet Morphology Normal (Normal); Toxic Granulation 1+
[2018-06-04 07:58] LABS: Ovalocytes 1+
[2018-06-04] MEDS: Doxazosin 1 MG Tablet PO SCH (08:50)
[2018-06-04] MEDS: Sucralfate 1 GM Tablet PO SCH ×3 (08:50→18:34)
[2018-06-04] MEDS: Ascorbic Acid 500 MG Tablet PO SCH (08:50)
[2018-06-04] MEDS: Pregabalin 75 MG Capsule PO SCH ×2 (08:50→20:02)
[2018-06-04] MEDS: Ferrrous Sulfate 300 MG/5 ML UDC PO SCH (08:51)
[2018-06-04] MEDS: Clotrimazole 1% Cream 15 GM Tube TOPICAL SCH ×2 (08:51→20:31)
[2018-06-04] MEDS: Polyethylene Glycol 3350 17 GM Packet NG/OG SCH ×2 (08:51→20:03)
[2018-06-04] MEDS: Hypromellose 0.3% Opth Gel 10 GM Bottle EACH EYE SCH ×2 (08:52→20:31)
[2018-06-04] MEDS: Levothyroxine 75 MCG Tablet PO SCH (08:56)
[2018-06-04] MEDS: Levothyroxine 100 MCG Tablet PO SCH (08:56)
[2018-06-04] MEDS: Mupirocin 2% Nasal Oint Topical Syringe EACH NARE SCH ×2 (08:57→20:30)
[2018-06-04] MEDS ORDERED: Amiodarone 200 MG Tablet PO SCH (09:15)
--- NOTE | 2018-06-04 09:16 | P.PNCC ---
Subjective Subjective Remarks/Hospital Course: 05/31: This is a 72-year-old male. He is a resident of [facility] and [facility]. Date of admission 05/30/2018. Originally admitted to hospitalist service and now under our service 05/31/2018. Past medical history includes fibromyalgia, dementia, history of CVA, obstructive sleep apnea, atrial fibrillation/chronic, COPD, chronic kidney disease stage IV, BPH, diabetes mellitus, elevated BMI, atherosclerotic vascular disease, nephrolithiasis, liver cirrhosis, essential hypertension, hyperlipidemia, gout, history of right ice C occlusion, hypothyroidism, dysphagia, constipation, diplopia, CABG 2, TURP, cardiac stent, right percutaneous lithotripsy, liver biopsy and bilateral hand surgery. Patient is also on chronic benzodiazepines. Patient presented to [facility] on 05/30/2018 with history of being found on the floor between his bed in the window. His head was against the dresser. He was able to tell if he hit his head. There is a large amount about was in the floor but not bleeding from the head. He has excoriations on his back and his left knee and right wrist. CT brain at this facility was negative. Patient is on apixaban and aspirin at home. Patient was noted to have a urinary tract infection was started on cefepime and gentamicin by ED physician. Throughout the night, patient became more confused and is found to be obtunded earlier this morning was intubated and centralized placed due to hypotension. He is currently on norepinephrine drip at 12 mcg/min. Troponin was 0.05. Patient had a leukocytosis, normocytic anemia, creatinine 6.6/ baseline around 2.5 and TSH is 0.356. We are asked to admit the patient at this time. He is currently intubated and arousable in room C 25 in ED. No family available. 06/01: Remains sedated, orally intubated on mechanical ventilation. Had generalized tonic-clonic movements which were questionable last night for which he was given Ativan 4 mg IV and loaded with Cerebyx. EEG this morning pending. Neurology consult noted. Head CT negative for bleed. Negligible urine output. Worsening BUN/creatinine. On vasopressin low-dose currently, off all other pressors. 06/02: Remains sedated, arousable, orally intubated on mechanical ventilation. Not following commands unenlightening sedation. 06/03: Arouses off sedation, not following commands. Orally intubated on mechanical ventilation. On CPAP trials. 06/04: More awake today tracking. Intermittently follows commands on upper and lower extremities. Remains on Sujit-Synephrine and vasopressin. Also change amiodarone to p.o. BUN climbing 104 today, creatinine stable at 5.7. May need to start hemodialysis will discuss with nephrology Objective Vital Signs / I&O: Vital Signs 06/03/18 10:00 06/03/18 10:17 06/03/18 11:45 Temperature Pulse Rate 102 H 102 H Respiratory Rate 17 17 Blood Pressure Pulse Oximetry 98 06/03/18 12:00 06/03/18 13:27 06/03/18 14:00 Temperature 100.9 F H Pulse Rate 102 H 106 H Respiratory Rate 13 16 Blood Pressure 128/61 Pulse Oximetry 99 99 06/03/18 15:21 06/03/18 15:59 06/03/18 16:00 Temperature 101.1 F H Pulse Rate 105 H 106 H Respiratory Rate 17 16 18 Blood Pressure 145/69 H Pulse Oximetry 97 99 06/03/18 18:00 06/03/18 20:00 06/03/18 20:23 Temperature 99.4 F Pulse Rate 126 H 138 H Respiratory Rate 16 17 Blood Pressure 108/56 L Pulse Oximetry 99 100 06/03/18 20:25 06/03/18 22:00 06/03/18 23:45 Temperature Pulse Rate 120 H 123 H Respiratory Rate 16 16 Blood Pressure Pulse Oximetry 100 06/04/18 00:00 06/04/18 02:00 06/04/18 03:31 Temperature 97.7 F Pulse Rate 142 H 84 Respiratory Rate 16 17 Blood Pressure 107/57 L Pulse Oximetry 100 98 06/04/18 03:33 06/04/18 04:00 06/04/18 06:00 Temperature 99.6 F Pulse Rate 83 80 74 Respiratory Rate 18 16 Blood Pressure 110/54 L Pulse Oximetry 99 06/04/18 08:00 06/04/18 08:31 Temperature 98.6 F Pulse Rate 88 Respiratory Rate 16 19 Blood Pressure 108/59 L Pulse Oximetry 100 100 Intake & Output 06/03/18 06/04/18 06/04/18 18:59 06:59 18:59 Intake Total 325 / 325 1316 / 1316 Output Total 275 / 275 450 / 450 Balance 50 / 50 866 / 866 Weight 129.1 kg Intake: IV 100 / 100 830 / 830 Cordarone Inj 450 MG In D5W Inj 250 / 250 241 ML @ 1 MG/MIN 33.33 mls/hr IV.CONT TITRATE PRN Rx#: [id number] Diprivan 1000 mg/100 ml Inj 1, 75 / 75 000 mg In 100 ml @ 5 MCG/KG/MIN 4.082 mls/hr IV.CONT TITRATE PRN Rx#:[id number] Sodium Bicarbonate 8.4% Inj 50 100 / 100 MEQ In 1/2 Normal Saline Inj 950 ML @ 42 mls/hr IV.CONT . [id number] WILFREDO Rx#:[id number] Pitressin Inj 40 UNIT In NS Inj 100 / 100 98 ML @ 0.04 UNITS/MIN 6 mls/ hr IV.CONT CONT WILFREDO Rx#: [id number] Cordarone Inj 150 MG In D5W Inj 100 / 100 97 ML @ 600 mls/hr IV.SIG ONCE ONE Rx#:[id number] Magnesium Sulfate 1 gm/D5W 100 200 / 200 ml Premix 100 ML @ 100 mls/hr IV.SIG Q1H [facility] Rx#:[id number] Levophed-Dextrose 4 mg/250 ml 5 / 5 Drip 4 mg In 250 ml @ 2 MCG/MIN 7.5 mls/hr IV.SIG TITRATE PRN Rx#:[id number] Rocephin Inj 2,000 MG In NS Inj 100 / 100 100 ML @ 200 mls/hr IV.SIG Q24H [facility] Rx#:[id number] Tube Feeding 150 / 150 366 / 366 Tube Irrigant 75 / 75 120 / 120 Output: Stool 0 / 0 Urine Amount (Catheter) 275 / 275 450 / 450 Coude 275 / 275 450 / 450 Other: Date of Last Bowel Movement 06/03/18 06/04/18 06/04/18 # Bowel Movements 3 2 # Incontinent Bowel Movements 2 Result Diagrams: 06/04/18 05:15 06/04/18 05:15 Objective Remarks: GENERAL: 72-year-old male currently orotracheally intubated SKIN: Warm and dry. Excoriations on back, will left knee anteriorly and right wrist HEAD: Atraumatic. Normocephalic. EYES: Pupils equal and round bilaterally and minimally reactive. No scleral icterus. No injection or drainage. ENT: No nasal bleeding or discharge. Orotracheally intubated. NECK: Trachea midline. No JVD. CARDIOVASCULAR: S1-S2 regular, no gallop or murmur. RESPIRATORY: Orally intubated on mechanical ventilation, scattered rhonchi bilaterally, no wheezing. Bibasilar crackles. GASTROINTESTINAL: Abdomen soft, non-tender, obese. Hypoactive bowel sounds appreciated. MUSCULOSKELETAL: Extremities with pitting bilateral lower extremity edema. No obvious deformities. NEUROLOGICAL: Arouses off sedation, tracking following commands today 4. Orally intubated on mechanical ventilation. Assessment and Plan - Assessment and Plan Plan: Neuro/Psych: Acute encephalopathy likely toxic metabolic secondary to severe sepsis CVA Dementia disorder NOS Chronic benzodiazepine use History of fibromyalgia Adjustment disorder with depressive features History of diplopia Remains off all sedation. Goal of RASS of -0 CT brain on admission revealed no acute intracranial findings Continue pregabalin 75 mg twice daily for peripheral neuropathy. Holding alprazolam 0.25 mg 3 times daily for anxiety. Questionable seizure, loaded with Cerebyx. EEG moderate encephalopathy no seizures. Neuro following. Repeat Head CT negative for bleed. 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 Follow CVP Off levo fed. Continue to wean Sujit-Synephrine and vasopressin 2D echo 07/09 revealed EF of 40-45%. LV dilatation. PAP 31 mmHg. Basilar inferolateral and inferior lateral hypokinesis. Repeat echocardiogram: Moderate concentric left ventricular hypertrophy. LVEF 60-65%. Estimated PASP is 63.3 mmHg. [id number] pulmonary hypertension present (range 60-70 mmHg). Initial troponin 0 0.05. Heart catheterization 09/08 revealed patent LAURA to LAD and SVG to RCA. 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 Continue atorvastatin 40 mg daily for dyslipidemia Holding diltiazem 120 mg daily, lisinopril 40 mg daily and metoprolol tartrate 100 mg twice daily/home medications while on vasopressors Continue Bumex per nephrology Currently on amiodarone infusion, start p.o. amiodarone 200 mg daily and wean to DC GTT Resp: Acute respiratory failure History of WERNER History of COPD Prior history of tobaccoism [facility] /, tolerating CPAP Ventilator bundle, Albuterol/ipratropium aerosols every 4 hours with albuterol aerosols every 2 hours as needed for dyspnea Post intubation chest x-ray reveals patchy infiltrate right midlung region. Tolerating CPAP trials. Get weaning parameters Holding Tiotropium 80 mg daily while on ipratropium GI: Gastroesophageal reflux disease history of gastric ulcer Constipation Hypoalbuminemia History of dysphasia History of liver biopsy with diagnosis of cirrhosis? Tolerating tube feeds. Lansoprazole/sucralfate for GI prophylaxis. Patient is on omeprazole/pantoprazole? Daily at longterm. Polyethylene glycol 17 g twice daily for bowel regimen : BPH status post TURP History of nephrolithiasis status post right percutaneous lithotripsy 2004 Resume tamsulosin 0.4 mg daily when able Maintain [place] catheter for accurate I's and O's Endo: Diabetes mellitus 1.5 treat as 1.0 Hypothyroidism History of gout Holding insulin glargine 25 units twice daily Sliding-scale insulin with aspart insulin/high regimen with Accu-Cheks every 4 hours to maintain euglycemia Decrease levothyroxine from 200-175 mg daily. TSH was 0.356. Renal: Acute kidney injury in the setting of chronic kidney disease stage IV Abdomen/pelvis CT with nonobstructing right renal stone Nephrology following. Continue Bumex. Patient is not oliguric but BUN continues to increase 104 today, creatinine stable at 5.7 May need to start hemodialysis will discuss with nephrology Monitor urine output with accurate I's and O's. Heme: Leukocytosis Normocytic anemia/anemia of chronic kidney disease Chronic apixaban use 2.5 mg twice daily Apixaban 2.5 mg twice daily. Hold for invasive procedures Monitor CBC daily. Follow trends. No indication for transfusion of blood products at this time. Type and screen ID: History of Enterococcus faecalis bacteremia History of staph saprophyticus urinary tract infection Received cefepime and gentamicin in the ED. Continue cefepime 500 mg daily/renally dosed for Proteus UTI Infectious disease consult CT abdomen/pelvis with nonobstructing right renal stone Holding doxycycline 100 mg twice daily/home medication Resume clotrimazole 1% to affected areas twice daily. Blood cultures 2 05/31 negative Urine cultures with Proteus Sputum pending Influenza a and B negative. Legionella and pneumococcal urinary antigens negative MSK: FEN: Replace electrolytes as clinically indicated Access -Left subclavian CVL day (05/31) placed by ED physician Prophylaxis -GI -lansoprazole/sucralfate -DVT -SCD/apixaban will provide DVT prophylaxis. Hold apixaban for possible HD catheter insertion Consulted palliative care to assist with deciding goals of therapy. Critical care 35 minutes admission
--- NOTE | 2018-06-04 10:20 | P.PNPAL ---
Reason for Visit Reason for visit: a. To assist with evaluation and management of symptoms including: Dyspnea, encephalopathy b. To assist medical decision maker(s) with: better understanding of current medical conditions; weighing benefits/burdens of medical treatment options; making medical treatment decisions. Subjective Subjective/Interval History: INTERVAL NOTE: Patient has become more awake over the past 48 hours. He arouses, answers yes/ no questions appropriately, follows simple commands. He is denying pain at this time. When left undisturbed for perhaps 1 minute, his eyes closed again. Temp was 101 last p.m., but afebrile since then. White count up to 16.5. Creatinine a little higher today, BUN higher, GFR remains 10. Patient being evaluated for possible extubation today. Family/Friend Interactions: Discussed with son Jonel via telephone. He is somewhat encouraged by some improvements, but recognizes the patient is still critically ill and may not survive this. If the patient is extubated, he does not want reintubation, requests full DNR status. The son is okay with initiating dialysis if needed at this time. Advance Directives Significant change in goals:: Son requestsSon requests DNR Objective Vital Signs: Vital Signs 06/03/18 10:17 06/03/18 11:45 06/03/18 12:00 Temperature 100.9 F H Pulse Rate 102 H 102 H Respiratory Rate 17 17 13 Blood Pressure 128/61 Pulse Oximetry 98 99 06/03/18 13:27 06/03/18 14:00 06/03/18 15:21 Temperature Pulse Rate 106 H 105 H Respiratory Rate 16 17 Blood Pressure Pulse Oximetry 99 06/03/18 15:59 06/03/18 16:00 06/03/18 18:00 Temperature 101.1 F H Pulse Rate 106 H 126 H Respiratory Rate 16 18 Blood Pressure 145/69 H Pulse Oximetry 97 99 06/03/18 20:00 06/03/18 20:23 06/03/18 20:25 Temperature 99.4 F Pulse Rate 138 H 120 H Respiratory Rate 16 17 16 Blood Pressure 108/56 L Pulse Oximetry 99 100 06/03/18 22:00 06/03/18 23:45 06/04/18 00:00 Temperature 97.7 F Pulse Rate 123 H 142 H Respiratory Rate 16 16 Blood Pressure 107/57 L Pulse Oximetry 100 100 06/04/18 02:00 06/04/18 03:31 06/04/18 03:33 Temperature Pulse Rate 84 83 Respiratory Rate 17 18 Blood Pressure Pulse Oximetry 98 06/04/18 04:00 06/04/18 06:00 06/04/18 08:00 Temperature 99.6 F 98.6 F Pulse Rate 80 74 88 Respiratory Rate 16 16 Blood Pressure 110/54 L 108/59 L Pulse Oximetry 99 100 06/04/18 08:31 Temperature Pulse Rate Respiratory Rate 19 Blood Pressure Pulse Oximetry 100 Intake & Output 06/03/18 06/04/18 06/04/18 18:59 06:59 18:59 Intake Total 325 / 325 1316 / 1316 Output Total 275 / 275 450 / 450 Balance 50 / 50 866 / 866 Weight 129.1 kg Intake: IV 100 / 100 830 / 830 Cordarone Inj 450 MG In D5W Inj 250 / 250 241 ML @ 1 MG/MIN 33.33 mls/hr IV.CONT TITRATE PRN Rx#: [id number] Diprivan 1000 mg/100 ml Inj 1, 75 / 75 000 mg In 100 ml @ 5 MCG/KG/MIN 4.082 mls/hr IV.CONT TITRATE PRN Rx#:[id number] Sodium Bicarbonate 8.4% Inj 50 100 / 100 MEQ In 1/2 Normal Saline Inj 950 ML @ 42 mls/hr IV.CONT . [id number] [facility]O Rx#:[id number] Pitressin Inj 40 UNIT In NS Inj 100 / 100 98 ML @ 0.04 UNITS/MIN 6 mls/ hr IV.CONT CONT [facility]ILFREDO Rx#: [id number] Cordarone Inj 150 MG In D5W Inj 100 / 100 97 ML @ 600 mls/hr IV.SIG ONCE ONE Rx#:[id number] Magnesium Sulfate 1 gm/D5W 100 200 / 200 ml Premix 100 ML @ 100 mls/hr IV.SIG Q1H [facility]O Rx#:[id number] Levophed-Dextrose 4 mg/250 ml 5 / 5 Drip 4 mg In 250 ml @ 2 MCG/MIN 7.5 mls/hr IV.SIG TITRATE PRN Rx#:[id number] Rocephin Inj 2,000 MG In NS Inj 100 / 100 100 ML @ 200 mls/hr IV.SIG Q24H [facility]O Rx#:[id number] Tube Feeding 150 / 150 366 / 366 Tube Irrigant 75 / 75 120 / 120 Output: Stool 0 / 0 Urine Amount (Catheter) 275 / 275 450 / 450 Coude 275 / 275 450 / 450 Other: Date of Last Bowel Movement 06/03/18 06/04/18 06/04/18 # Bowel Movements 3 2 # Incontinent Bowel Movements 2 Physical Exam: CONSTITUTIONAL/GENERAL: This is an adequately nourished patient, sedated, mechanically ventilated, in no apparent distress. TUBES/LINES/DRAINS: ET tube, left subclavian line, [place] SKIN: No jaundice, rashes, or lesions. Ecchymoses on upper extremities. No wounds seen anteriorly. Skin temperature cool. Not diaphoretic. NECK: Trachea midline. Supple, nontender. No palpable thyroid enlargement or nodularity. CARDIOVASCULAR: Regular rate and rhythm without murmurs, gallops, or rubs. No JVD. Peripheral pulses symmetric. RESPIRATORY/CHEST: Symmetric, unlabored respirations. A few scattered rales. GASTROINTESTINAL: Abdomen soft, non-tender, and moderately distended. No hepato- splenomegaly, or palpable masses. No guarding. Bowel sounds present. MUSCULOSKELETAL: Extremities without clubbing, cyanosis, but there is moderate diffuse edema. No joint tenderness or effusion noted. No mottling or clubbing. NEUROLOGICAL: Arouses, tracks, follows simple commands. PSYCHIATRIC: Does not appear anxious or fearful. Diagnostic Tests Laboratory: Laboratory Results - last 72 hr 05/31/18 06/01/18 06/01/18 00:05 04:25 11:35 WBC RBC Hgb Hct MCV MCH MCHC RDW Plt Count MPV Prelim Diff (Auto) Neut % (Auto) Lymph % (Auto) Josephine % (Auto) Eos % (Auto) Baso % (Auto) Neut # (Auto) Lymph # (Auto) Josephine # (Auto) Eos # (Auto) Baso # (Auto) WBC Differential Seg Neuts % (Manual) Band Neuts % (Manual) Lymphocytes % (Manual) Monocytes % (Manual) Abs Neuts (Manual) Differential Comment Toxic Granulation Dohle Bodies Platelet Estimate Platelet Morphology Ovalocytes PT INR APTT Puncture Site Patient Temperature O2 Saturation ABG pH ABG pCO2 ABG pO2 ABG HCO3 ABG O2 Content ABG Base Excess ABG Methemoglobin Maurice Test Hemoglobin Carboxyhemoglobin O2 Delivery Device Vent Setting Inspired O2 Critical Value Sodium Potassium Chloride Carbon Dioxide Anion Gap BUN Creatinine Estimated GFR POC Glucose 142 H Random Glucose Hemoglobin A1c Lactic Acid Calcium Prot Corrected Calcium Phosphorus Magnesium Total Bilirubin AST ALT Alkaline Phosphatase Ammonia Troponin I C-Reactive Protein Total Protein Albumin Triglycerides Cholesterol LDL Cholesterol, Calc HDL Cholesterol Cholesterol/HDL Ratio Amylase Lipase Vitamin B12 554 Free T4 Free T3 Urine Color Yellow Urine Clarity Turbid H Urine pH 6.0 Ur Specific Smoot 1.012 Urine Protein 100 H Urine Glucose (UA) Negative Urine Ketones Negative Urine Occult Blood Moderate H Urine Nitrate Negative Urine Bilirubin Negative Urine Urobilinogen Less than 2 Ur Leukocyte Esterase Moderate H Urine RBC 19 H Urine WBC Urine WBC Clumps Many H Ur Squamous Epith Cells 4 Micro UA Comment Cath-culture ind Urine Culture Comments Cath-cult indicated 06/01/18 06/01/18 06/02/18 16:45 21:06 00:13 WBC RBC Hgb Hct MCV MCH MCHC RDW Plt Count MPV Prelim Diff (Auto) Neut % (Auto) Lymph % (Auto) Josephine % (Auto) Eos % (Auto) Baso % (Auto) Neut # (Auto) Lymph # (Auto) Josephine # (Auto) Eos # (Auto) Baso # (Auto) WBC Differential Seg Neuts % (Manual) Band Neuts % (Manual) Lymphocytes % (Manual) Monocytes % (Manual) Abs Neuts (Manual) Differential Comment Toxic Granulation Dohle Bodies Platelet Estimate Platelet Morphology Ovalocytes PT INR APTT Puncture Site Patient Temperature O2 Saturation ABG pH ABG pCO2 ABG pO2 ABG HCO3 ABG O2 Content ABG Base Excess ABG Methemoglobin Maurice Test Hemoglobin Carboxyhemoglobin O2 Delivery Device Vent Setting Inspired O2 Critical Value Sodium Potassium Chloride Carbon Dioxide Anion Gap BUN Creatinine Estimated GFR POC Glucose 194 H 112 H 157 H Random Glucose Hemoglobin A1c Lactic Acid Calcium Prot Corrected Calcium Phosphorus Magnesium Total Bilirubin AST ALT Alkaline Phosphatase Ammonia Troponin I C-Reactive Protein Total Protein Albumin Triglycerides Cholesterol LDL Cholesterol, Calc HDL Cholesterol Cholesterol/HDL Ratio Amylase Lipase Vitamin B12 Free T4 Free T3 Urine Color Urine Clarity Urine pH Ur Specific Smoot Urine Protein Urine Glucose (UA) Urine Ketones Urine Occult Blood Urine Nitrate Urine Bilirubin Urine Urobilinogen Ur Leukocyte Esterase Urine RBC Urine WBC Urine WBC Clumps Ur Squamous Epith Cells Micro UA Comment Urine Culture Comments 06/02/18 06/02/18 06/02/18 04:10 05:00 05:00 WBC 9.4 RBC 2.51 L Hgb 8.0 L Hct 23.7 L MCV 94.6 MCH 32.0 MCHC 33.8 RDW 13.5 Plt Count 208 MPV 8.5 Prelim Diff (Auto) Neut % (Auto) 75.2 H Lymph % (Auto) 9.6 Josephine % (Auto) 12.0 H Eos % (Auto) 2.9 Baso % (Auto) 0.3 Neut # (Auto) 7.1 Lymph # (Auto) 0.9 L Josephine # (Auto) 1.1 H Eos # (Auto) 0.3 Baso # (Auto) 0.0 WBC Differential . Seg Neuts % (Manual) Band Neuts % (Manual) Lymphocytes % (Manual) Monocytes % (Manual) Abs Neuts (Manual) Differential Comment Auto diff final Toxic Granulation Dohle Bodies Platelet Estimate Platelet Morphology Ovalocytes PT INR APTT Puncture Site Patient Temperature O2 Saturation ABG pH ABG pCO2 ABG pO2 ABG HCO3 ABG O2 Content ABG Base Excess ABG Methemoglobin Maurice Test Hemoglobin Carboxyhemoglobin O2 Delivery Device Vent Setting Inspired O2 Critical Value Sodium 138 Potassium 5.0 Chloride 107 Carbon Dioxide 19.9 L Anion Gap 11 BUN 85 H Creatinine 5.84 H Estimated GFR 10 L POC Glucose 201 H Random Glucose 176 H Hemoglobin A1c Lactic Acid Calcium 7.4 L* Prot Corrected Calcium 8.7 Phosphorus 4.7 Magnesium 1.4 L Total Bilirubin AST ALT Alkaline Phosphatase Ammonia Troponin I C-Reactive Protein Total Protein 4.8 L Albumin Triglycerides Cholesterol LDL Cholesterol, Calc HDL Cholesterol Cholesterol/HDL Ratio Amylase Lipase Vitamin B12 Free T4 Free T3 Urine Color Urine Clarity Urine pH Ur Specific Smoot Urine Protein Urine Glucose (UA) Urine Ketones Urine Occult Blood Urine Nitrate Urine Bilirubin Urine Urobilinogen Ur Leukocyte Esterase Urine RBC Urine WBC Urine WBC Clumps Ur Squamous Epith Cells Micro UA Comment Urine Culture Comments 06/02/18 06/02/18 06/02/18 08:43 08:45 12:00 WBC RBC Hgb Hct MCV MCH MCHC RDW Plt Count MPV Prelim Diff (Auto) Neut % (Auto) Lymph % (Auto) Josephine % (Auto) Eos % (Auto) Baso % (Auto) Neut # (Auto) Lymph # (Auto) Josephine # (Auto) Eos # (Auto) Baso # (Auto) WBC Differential Seg Neuts % (Manual) Band Neuts % (Manual) Lymphocytes % (Manual) Monocytes % (Manual) Abs Neuts (Manual) Differential Comment Toxic Granulation Dohle Bodies Platelet Estimate Platelet Morphology Ovalocytes PT INR APTT Puncture Site Patient Temperature O2 Saturation ABG pH ABG pCO2 ABG pO2 ABG HCO3 ABG O2 Content ABG Base Excess ABG Methemoglobin Maurice Test Hemoglobin Carboxyhemoglobin O2 Delivery Device Vent Setting Inspired O2 Critical Value Sodium Potassium Chloride Carbon Dioxide Anion Gap BUN Creatinine Estimated GFR POC Glucose 243 H 242 H 195 H Random Glucose Hemoglobin A1c Lactic Acid Calcium Prot Corrected Calcium Phosphorus Magnesium Total Bilirubin AST ALT Alkaline Phosphatase Ammonia Troponin I C-Reactive Protein Total Protein Albumin Triglycerides Cholesterol LDL Cholesterol, Calc HDL Cholesterol Cholesterol/HDL Ratio Amylase Lipase Vitamin B12 Free T4 Free T3 Urine Color Urine Clarity Urine pH Ur Specific Smoot Urine Protein Urine Glucose (UA) Urine Ketones Urine Occult Blood Urine Nitrate Urine Bilirubin Urine Urobilinogen Ur Leukocyte Esterase Urine RBC Urine WBC Urine WBC Clumps Ur Squamous Epith Cells Micro UA Comment Urine Culture Comments 06/02/18 06/02/18 06/02/18 16:22 20:08 23:42 WBC RBC Hgb Hct MCV MCH MCHC RDW Plt Count MPV Prelim Diff (Auto) Neut % (Auto) Lymph % (Auto) Josephine % (Auto) Eos % (Auto) Baso % (Auto) Neut # (Auto) Lymph # (Auto) Josephine # (Auto) Eos # (Auto) Baso # (Auto) WBC Differential Seg Neuts % (Manual) Band Neuts % (Manual) Lymphocytes % (Manual) Monocytes % (Manual) Abs Neuts (Manual) Differential Comment Toxic Granulation Dohle Bodies Platelet Estimate Platelet Morphology Ovalocytes PT INR APTT Puncture Site Patient Temperature O2 Saturation ABG pH ABG pCO2 ABG pO2 ABG HCO3 ABG O2 Content ABG Base Excess ABG Methemoglobin Maurice Test Hemoglobin Carboxyhemoglobin O2 Delivery Device Vent Setting Inspired O2 Critical Value Sodium Potassium Chloride Carbon Dioxide Anion Gap BUN Creatinine Estimated GFR POC Glucose 197 H 142 H 182 H Random Glucose Hemoglobin A1c Lactic Acid Calcium Prot Corrected Calcium Phosphorus Magnesium Total Bilirubin AST ALT Alkaline Phosphatase Ammonia Troponin I C-Reactive Protein Total Protein Albumin Triglycerides Cholesterol LDL Cholesterol, Calc HDL Cholesterol Cholesterol/HDL Ratio Amylase Lipase Vitamin B12 Free T4 Free T3 Urine Color Urine Clarity Urine pH Ur Specific Smoot Urine Protein Urine Glucose (UA) Urine Ketones Urine Occult Blood Urine Nitrate Urine Bilirubin Urine Urobilinogen Ur Leukocyte Esterase Urine RBC Urine WBC Urine WBC Clumps Ur Squamous Epith Cells Micro UA Comment Urine Culture Comments 06/03/18 06/03/18 06/03/18 04:13 05:25 05:25 WBC 13.8 H RBC 2.68 L Hgb 8.5 L Hct 25.2 L MCV 93.9 MCH 31.8 MCHC 33.8 RDW 13.7 Plt Count 254 MPV 8.2 Prelim Diff (Auto) Neut % (Auto) 73.3 H Lymph % (Auto) 8.7 L Josephine % (Auto) 14.1 H Eos % (Auto) 3.5 Baso % (Auto) 0.4 Neut # (Auto) 10.1 H Lymph # (Auto) 1.2 Josephine # (Auto) 2.0 H Eos # (Auto) 0.5 H Baso # (Auto) 0.1 WBC Differential . Seg Neuts % (Manual) Band Neuts % (Manual) Lymphocytes % (Manual) Monocytes % (Manual) Abs Neuts (Manual) Differential Comment Auto diff final Toxic Granulation Dohle Bodies Platelet Estimate Platelet Morphology Ovalocytes PT 11.3 INR 1.1 APTT 38.5 H Puncture Site Patient Temperature O2 Saturation ABG pH ABG pCO2 ABG pO2 ABG HCO3 ABG O2 Content ABG Base Excess ABG Methemoglobin Maurice Test Hemoglobin Carboxyhemoglobin O2 Delivery Device Vent Setting Inspired O2 Critical Value Sodium Potassium Chloride Carbon Dioxide Anion Gap BUN Creatinine Estimated GFR POC Glucose 166 H Random Glucose Hemoglobin A1c Lactic Acid Calcium Prot Corrected Calcium Phosphorus Magnesium Total Bilirubin AST ALT Alkaline Phosphatase Ammonia Troponin I C-Reactive Protein Total Protein Albumin Triglycerides Cholesterol LDL Cholesterol, Calc HDL Cholesterol Cholesterol/HDL Ratio Amylase Lipase Vitamin B12 Free T4 Free T3 Urine Color Urine Clarity Urine pH Ur Specific Smoot Urine Protein Urine Glucose (UA) Urine Ketones Urine Occult Blood Urine Nitrate Urine Bilirubin Urine Urobilinogen Ur Leukocyte Esterase Urine RBC Urine WBC Urine WBC Clumps Ur Squamous Epith Cells Micro UA Comment Urine Culture Comments 06/03/18 06/03/18 06/03/18 05:25 05:25 05:25 WBC RBC Hgb Hct MCV MCH MCHC RDW Plt Count MPV Prelim Diff (Auto) Neut % (Auto) Lymph % (Auto) Josephine % (Auto) Eos % (Auto) Baso % (Auto) Neut # (Auto) Lymph # (Auto) Josephine # (Auto) Eos # (Auto) Baso # (Auto) WBC Differential Seg Neuts % (Manual) Band Neuts % (Manual) Lymphocytes % (Manual) Monocytes % (Manual) Abs Neuts (Manual) Differential Comment Toxic Granulation Dohle Bodies Platelet Estimate Platelet Morphology Ovalocytes PT INR APTT Puncture Site Patient Temperature O2 Saturation ABG pH ABG pCO2 ABG pO2 ABG HCO3 ABG O2 Content ABG Base Excess ABG Methemoglobin Maurice Test Hemoglobin Carboxyhemoglobin O2 Delivery Device Vent Setting Inspired O2 Critical Value Sodium 137 Potassium 4.6 Chloride 106 Carbon Dioxide 20.6 L Anion Gap 10 BUN 99 H Creatinine 5.57 H Estimated GFR 10 L POC Glucose Random Glucose 155 H Hemoglobin A1c Lactic Acid 0.9 Calcium 8.0 L Prot Corrected Calcium Phosphorus 4.8 Magnesium 1.5 Total Bilirubin 0.3 AST 17 ALT 15 Alkaline Phosphatase 101 Ammonia 18 Troponin I C-Reactive Protein Total Protein 4.9 L Albumin 1.9 L Triglycerides Cholesterol LDL Cholesterol, Calc HDL Cholesterol Cholesterol/HDL Ratio Amylase Lipase Vitamin B12 Free T4 Free T3 Urine Color Urine Clarity Urine pH Ur Specific Smoot Urine Protein Urine Glucose (UA) Urine Ketones Urine Occult Blood Urine Nitrate Urine Bilirubin Urine Urobilinogen Ur Leukocyte Esterase Urine RBC Urine WBC Urine WBC Clumps Ur Squamous Epith Cells Micro UA Comment Urine Culture Comments 06/03/18 06/03/18 06/03/18 05:25 05:25 09:06 WBC RBC Hgb Hct MCV MCH MCHC RDW Plt Count MPV Prelim Diff (Auto) Neut % (Auto) Lymph % (Auto) Josephine % (Auto) Eos % (Auto) Baso % (Auto) Neut # (Auto) Lymph # (Auto) Josephine # (Auto) Eos # (Auto) Baso # (Auto) WBC Differential Seg Neuts % (Manual) Band Neuts % (Manual) Lymphocytes % (Manual) Monocytes % (Manual) Abs Neuts (Manual) Differential Comment Toxic Granulation Dohle Bodies Platelet Estimate Platelet Morphology Ovalocytes PT INR APTT Puncture Site Patient Temperature O2 Saturation ABG pH ABG pCO2 ABG pO2 ABG HCO3 ABG O2 Content ABG Base Excess ABG Methemoglobin Maurice Test Hemoglobin Carboxyhemoglobin O2 Delivery Device Vent Setting Inspired O2 Critical Value Sodium Potassium Chloride Carbon Dioxide Anion Gap BUN Creatinine Estimated GFR POC Glucose 130 H Random Glucose Hemoglobin A1c 7.3 H Lactic Acid Calcium Prot Corrected Calcium Phosphorus Magnesium Total Bilirubin AST ALT Alkaline Phosphatase Ammonia Troponin I C-Reactive Protein 18.00 H Total Protein Albumin Triglycerides 75 Cholesterol 67 L LDL Cholesterol, Calc 20 HDL Cholesterol 32.0 L Cholesterol/HDL Ratio 2.09 Amylase 43 Lipase 140 Vitamin B12 Free T4 1.06 Free T3 0.97 L Urine Color Urine Clarity Urine pH Ur Specific Smoot Urine Protein Urine Glucose (UA) Urine Ketones Urine Occult Blood Urine Nitrate Urine Bilirubin Urine Urobilinogen Ur Leukocyte Esterase Urine RBC Urine WBC Urine WBC Clumps Ur Squamous Epith Cells Micro UA Comment Urine Culture Comments 06/03/18 06/03/18 06/03/18 09:24 12:58 16:43 WBC RBC Hgb Hct MCV MCH MCHC RDW Plt Count MPV Prelim Diff (Auto) Neut % (Auto) Lymph % (Auto) Josephine % (Auto) Eos % (Auto) Baso % (Auto) Neut # (Auto) Lymph # (Auto) Josephine # (Auto) Eos # (Auto) Baso # (Auto) WBC Differential Seg Neuts % (Manual) Band Neuts % (Manual) Lymphocytes % (Manual) Monocytes % (Manual) Abs Neuts (Manual) Differential Comment Toxic Granulation Dohle Bodies Platelet Estimate Platelet Morphology Ovalocytes PT INR APTT Puncture Site Left radial Patient Temperature 98.6 O2 Saturation 96 ABG pH 7.35 L ABG pCO2 36 L ABG pO2 120 ABG HCO3 20 L ABG O2 Content 11.6 L ABG Base Excess -5.0 L ABG Methemoglobin 0.8 Maurice Test Present Hemoglobin 8.4 L Carboxyhemoglobin 0.4 O2 Delivery Device Ventilator Vent Setting Cpap+[id number] Inspired O2 40 Critical Value No Sodium Potassium Chloride Carbon Dioxide Anion Gap BUN Creatinine Estimated GFR POC Glucose 198 H 160 H Random Glucose Hemoglobin A1c Lactic Acid Calcium Prot Corrected Calcium Phosphorus Magnesium Total Bilirubin AST ALT Alkaline Phosphatase Ammonia Troponin I C-Reactive Protein Total Protein Albumin Triglycerides Cholesterol LDL Cholesterol, Calc HDL Cholesterol Cholesterol/HDL Ratio Amylase Lipase Vitamin B12 Free T4 Free T3 Urine Color Urine Clarity Urine pH Ur Specific Smoot Urine Protein Urine Glucose (UA) Urine Ketones Urine Occult Blood Urine Nitrate Urine Bilirubin Urine Urobilinogen Ur Leukocyte Esterase Urine RBC Urine WBC Urine WBC Clumps Ur Squamous Epith Cells Micro UA Comment Urine Culture Comments 06/03/18 06/04/18 06/04/18 20:01 00:14 04:56 WBC RBC Hgb Hct MCV MCH MCHC RDW Plt Count MPV Prelim Diff (Auto) Neut % (Auto) Lymph % (Auto) Josephine % (Auto) Eos % (Auto) Baso % (Auto) Neut # (Auto) Lymph # (Auto) Josephine # (Auto) Eos # (Auto) Baso # (Auto) WBC Differential Seg Neuts % (Manual) Band Neuts % (Manual) Lymphocytes % (Manual) Monocytes % (Manual) Abs Neuts (Manual) Differential Comment Toxic Granulation Dohle Bodies Platelet Estimate Platelet Morphology Ovalocytes PT INR APTT Puncture Site Patient Temperature O2 Saturation ABG pH ABG pCO2 ABG pO2 ABG HCO3 ABG O2 Content ABG Base Excess ABG Methemoglobin Maurice Test Hemoglobin Carboxyhemoglobin O2 Delivery Device Vent Setting Inspired O2 Critical Value Sodium Potassium Chloride Carbon Dioxide Anion Gap BUN Creatinine Estimated GFR POC Glucose 182 H 256 H 225 H Random Glucose Hemoglobin A1c Lactic Acid Calcium Prot Corrected Calcium Phosphorus Magnesium Total Bilirubin AST ALT Alkaline Phosphatase Ammonia Troponin I C-Reactive Protein Total Protein Albumin Triglycerides Cholesterol LDL Cholesterol, Calc HDL Cholesterol Cholesterol/HDL Ratio Amylase Lipase Vitamin B12 Free T4 Free T3 Urine Color Urine Clarity Urine pH Ur Specific Smoot Urine Protein Urine Glucose (UA) Urine Ketones Urine Occult Blood Urine Nitrate Urine Bilirubin Urine Urobilinogen Ur Leukocyte Esterase Urine RBC Urine WBC Urine WBC Clumps Ur Squamous Epith Cells Micro UA Comment Urine Culture Comments 06/04/18 06/04/18 06/04/18 05:15 05:15 05:15 WBC 16.5 H RBC 2.55 L Hgb 8.0 L Hct 24.1 L MCV 94.6 MCH 31.4 MCHC 33.2 RDW 13.7 Plt Count 228 MPV 8.1 Prelim Diff (Auto) Slide review pending Neut % (Auto) 77.9 H Lymph % (Auto) 6.9 L Josephine % (Auto) 13.9 H Eos % (Auto) 1.1 Baso % (Auto) 0.2 Neut # (Auto) 12.9 H Lymph # (Auto) 1.1 Josephine # (Auto) 2.3 H Eos # (Auto) 0.2 Baso # (Auto) 0.0 WBC Differential Manual diff final Seg Neuts % (Manual) 81 H Band Neuts % (Manual) 5 Lymphocytes % (Manual) 5 L Monocytes % (Manual) 9 H Abs Neuts (Manual) 14.2 H Differential Comment . Toxic Granulation 1+ H Dohle Bodies Present H Platelet Estimate Normal Platelet Morphology Normal Ovalocytes 1+ H PT INR APTT Puncture Site Patient Temperature O2 Saturation ABG pH ABG pCO2 ABG pO2 ABG HCO3 ABG O2 Content ABG Base Excess ABG Methemoglobin Maurice Test Hemoglobin Carboxyhemoglobin O2 Delivery Device Vent Setting Inspired O2 Critical Value Sodium 137 Potassium 4.7 Chloride 104 Carbon Dioxide 21.2 Anion Gap 12 BUN 104 H Creatinine 5.72 H Estimated GFR 10 L POC Glucose Random Glucose 216 H Hemoglobin A1c Lactic Acid Calcium 7.8 L Prot Corrected Calcium Phosphorus 5.1 H 4.9 Magnesium 1.9 Total Bilirubin AST ALT Alkaline Phosphatase Ammonia Troponin I 0.06 H C-Reactive Protein Total Protein Albumin 1.8 L Triglycerides Cholesterol LDL Cholesterol, Calc HDL Cholesterol Cholesterol/HDL Ratio Amylase Lipase Vitamin B12 Free T4 Free T3 Urine Color Urine Clarity Urine pH Ur Specific Smoot Urine Protein Urine Glucose (UA) Urine Ketones Urine Occult Blood Urine Nitrate Urine Bilirubin Urine Urobilinogen Ur Leukocyte Esterase Urine RBC Urine WBC Urine WBC Clumps Ur Squamous Epith Cells Micro UA Comment Urine Culture Comments 06/04/18 08:26 WBC RBC Hgb Hct MCV MCH MCHC RDW Plt Count MPV Prelim Diff (Auto) Neut % (Auto) Lymph % (Auto) Josephine % (Auto) Eos % (Auto) Baso % (Auto) Neut # (Auto) Lymph # (Auto) Josephine # (Auto) Eos # (Auto) Baso # (Auto) WBC Differential Seg Neuts % (Manual) Band Neuts % (Manual) Lymphocytes % (Manual) Monocytes % (Manual) Abs Neuts (Manual) Differential Comment Toxic Granulation Dohle Bodies Platelet Estimate Platelet Morphology Ovalocytes PT INR APTT Puncture Site Patient Temperature O2 Saturation ABG pH ABG pCO2 ABG pO2 ABG HCO3 ABG O2 Content ABG Base Excess ABG Methemoglobin Maurice Test Hemoglobin Carboxyhemoglobin O2 Delivery Device Vent Setting Inspired O2 Critical Value Sodium Potassium Chloride Carbon Dioxide Anion Gap BUN Creatinine Estimated GFR POC Glucose 171 H Random Glucose Hemoglobin A1c Lactic Acid Calcium Prot Corrected Calcium Phosphorus Magnesium Total Bilirubin AST ALT Alkaline Phosphatase Ammonia Troponin I C-Reactive Protein Total Protein Albumin Triglycerides Cholesterol LDL Cholesterol, Calc HDL Cholesterol Cholesterol/HDL Ratio Amylase Lipase Vitamin B12 Free T4 Free T3 Urine Color Urine Clarity Urine pH Ur Specific Smoot Urine Protein Urine Glucose (UA) Urine Ketones Urine Occult Blood Urine Nitrate Urine Bilirubin Urine Urobilinogen Ur Leukocyte Esterase Urine RBC Urine WBC Urine WBC Clumps Ur Squamous Epith Cells Micro UA Comment Urine Culture Comments Result Diagrams: 06/04/18 05:15 06/04/18 05:15 Microbiology: Microbiology 05/31/18 07:45 Aerobic Blood Culture - Preliminary Blood - Peripheral No growth in 3 days Anaerobic Blood Culture - Preliminary No growth in 3 days 05/31/18 07:50 Aerobic Blood Culture - Preliminary Blood - Peripheral No growth in 3 days Anaerobic Blood Culture - Preliminary No growth in 3 days 05/31/18 08:10 Gram Stain - Final Sputum - Endotracheal Sputum Culture - Final Heavy growth normal respiratory xuan 05/31/18 00:05 Urine Culture - Final Catheterized Urine Proteus mirabilis Imaging: Abdomen/Pelvis CT 05/31/18 00:00 CONCLUSION: 1. No acute abnormality. 2. 7 mm nonobstructing right renal stone. 3. Small bilateral pleural effusions with bibasilar consolidations. This is more pronounced than typical passive atelectasis. Infectious etiology versus pulmonary edema. Head CT 05/31/18 00:00 CONCLUSION: Stable evaluation the brain without evidence of acute infarct, hemorrhage, mass or edema. . Head MRI 06/01/18 00:00 CONCLUSION: 1. No evidence of acute infarct, hemorrhage, mass or edema. 2. Mild cerebral white matter disease characteristic of microvascular ischemic changes. 3. No significant change compared to previous study in 2010 Elbow X-Ray 06/03/18 00:00 CONCLUSION: Unremarkable exam. Shoulder X-Ray 06/03/18 00:00 CONCLUSION: Unremarkable right shoulder. Chest X-Ray 06/03/18 15:38 CONCLUSION: 1. Mild improvement in the left lower lung infiltrate. 2. Stable mild right lower lung infiltrate. Procedures: INTUBATION 05/30/18 Assessment and Plan Pertinent Non-Medical Issues: Psychosocial: Retired, , on Social Security, care home resident for several months. He had 3 children: One son is , son Jonel has stayed in touch with the patient and lives in [place], and there is a daughter that has been estranged for many years (different mother) Spiritual: The patient is reportedly spiritual but not episcopalian, not affiliated with any hinduism or denomination. Son does not want extension service advisor visits at this time Legal: The patient lacks capacity for decision-making, and it is not known whether he will regain. His son Jonel De La Paz is the healthcare proxy decision-maker at this time. Ethical issues impacting care: None Important Contacts: Son Jonel De La Paz, cell: [phone] Friend: Wilber Bhatt [phone] Prognosis: Overall, the patient's prognosis is poor. He has multiorgan system failure at this point in time, and has multiple underlying comorbidities. Code Status: Alternative Code (Intubation only) Plan: * ALTERNATE CODE: Intubation only per her son Jonel 06/01/18 * DECISION-MAKING: The patient lacks capacity for decision-making, and it is not known whether he will regain. His son Jonel De La Paz is the healthcare proxy decision-maker at this time. * GOALS: Discussed with son Jonel via telephone 06/04/18. He is somewhat encouraged by some improvements, but recognizes the patient is still critically ill and may not survive this. If the patient is extubated, he does not want reintubation, requests full DNR status. The son is okay with initiating dialysis if needed at this time. * SYMPTOMS: The patient is awakening, and his symptoms are managed with the medications and mechanical ventilation. I have no further medication recommendations at this time. * Palliative Care will continue to follow the patient during this hospitalization. Time Spent Total Floor Time (mins): 39 Face to Face Time (mins): 18 >50% Time in Counseling or Coordination of Care: Yes (d/w Dr. Lock and Dr. Tabares) Attestation Attestation: To help prompt me to consider important information that might be impacting today's encounter and assessment, information from prior notes written by myself or my colleagues may have been "brought forward" into today's note. My signature on this note, however, is an attestation that I personally performed the exam, history, and/or decision-making noted today, and, unless otherwise indicated, the interactions with patient, family, and staff as well as the review of records all occurred today. I also attest that the listed assessment and stated plan reflect my best clinical judgment today based on the combination of historical information, prior notes, and today's exam/ interactions. When time spent is documented, it refers only to time spent today by the signer, or if indicated, combined time spent today by collaborating physician/nurse practitioner.
[2018-06-04 11:31] LABS: ABG Base Excess -5.1 mmol/L (-2-2); ABG PCO2 38 mmHg (38-42); ABG PO2 156 mmHg (61-120)
[2018-06-04] MEDS ORDERED: Sodium Bicarbonate 8.4% Inj 50 MEQ/50 ML Syringe IV.PUSH ONE (11:57)
--- NOTE | 2018-06-04 12:35 | P.PNNP ---
Subjective Interval history: Remains intubated. Renal function is slightly worse but he is making urine. Palliative attempting to contact family. <Devi Iqbal - Last Filed: 06/04/18 12:30> Physical Exam Vital signs: Vital Signs 06/03/18 13:27 06/03/18 14:00 06/03/18 15:21 Temperature Pulse Rate 106 H 105 H Respiratory Rate 16 17 Blood Pressure Pulse Oximetry 99 06/03/18 15:59 06/03/18 16:00 06/03/18 18:00 Temperature 101.1 F H Pulse Rate 106 H 126 H Respiratory Rate 16 18 Blood Pressure 145/69 H Pulse Oximetry 97 99 06/03/18 20:00 06/03/18 20:23 06/03/18 20:25 Temperature 99.4 F Pulse Rate 138 H 120 H Respiratory Rate 16 17 16 Blood Pressure 108/56 L Pulse Oximetry 99 100 06/03/18 22:00 06/03/18 23:45 06/04/18 00:00 Temperature 97.7 F Pulse Rate 123 H 142 H Respiratory Rate 16 16 Blood Pressure 107/57 L Pulse Oximetry 100 100 06/04/18 02:00 06/04/18 03:31 06/04/18 03:33 Temperature Pulse Rate 84 83 Respiratory Rate 17 18 Blood Pressure Pulse Oximetry 98 06/04/18 04:00 06/04/18 06:00 06/04/18 08:00 Temperature 99.6 F 98.6 F Pulse Rate 80 74 88 Respiratory Rate 16 16 Blood Pressure 110/54 L 108/59 L Pulse Oximetry 99 100 06/04/18 08:31 06/04/18 10:00 06/04/18 12:00 Temperature 98.8 F Pulse Rate 88 86 Respiratory Rate 19 14 Blood Pressure 128/53 L Pulse Oximetry 100 06/04/18 12:14 Temperature Pulse Rate Respiratory Rate 13 Blood Pressure Pulse Oximetry 100 Intake & Output 06/03/18 06/04/18 06/04/18 18:59 06:59 18:59 Intake Total 325 / 325 1316 / 1316 Output Total 275 / 275 450 / 450 Balance 50 / 50 866 / 866 Weight 129.1 kg Intake: IV 100 / 100 830 / 830 Cordarone Inj 450 MG In D5W Inj 250 / 250 241 ML @ 1 MG/MIN 33.33 mls/hr IV.CONT TITRATE PRN Rx#: [id number] Diprivan 1000 mg/100 ml Inj 1, 75 / 75 000 mg In 100 ml @ 5 MCG/KG/MIN 4.082 mls/hr IV.CONT TITRATE PRN Rx#:[id number] Sodium Bicarbonate 8.4% Inj 50 100 / 100 MEQ In 1/2 Normal Saline Inj 950 ML @ 42 mls/hr IV.CONT . [id number] [facility] Rx#:[id number] Pitressin Inj 40 UNIT In NS Inj 100 / 100 98 ML @ 0.04 UNITS/MIN 6 mls/ hr IV.CONT CONT [facility] Rx#: [id number] Cordarone Inj 150 MG In D5W Inj 100 / 100 97 ML @ 600 mls/hr IV.SIG ONCE ONE Rx#:[id number] Magnesium Sulfate 1 gm/D5W 100 200 / 200 ml Premix 100 ML @ 100 mls/hr IV.SIG Q1H [facility] Rx#:[id number] Levophed-Dextrose 4 mg/250 ml 5 / 5 Drip 4 mg In 250 ml @ 2 MCG/MIN 7.5 mls/hr IV.SIG TITRATE PRN Rx#:[id number] Rocephin Inj 2,000 MG In NS Inj 100 / 100 100 ML @ 200 mls/hr IV.SIG Q24H [facility] Rx#:[id number] Tube Feeding 150 / 150 366 / 366 Tube Irrigant 75 / 75 120 / 120 Output: Stool 0 / 0 Urine Amount (Catheter) 275 / 275 450 / 450 Coude 275 / 275 450 / 450 Other: Date of Last Bowel Movement 06/03/18 06/04/18 06/04/18 # Bowel Movements 3 2 # Incontinent Bowel Movements 2 - Constitutional no acute distress, average body habitus Comments: edematous, intubated, unresponsive - Routine HEENT Exam Head: Present: normocephalic Eye: Present: EOMI - Routine Neck Exam Present: supple, full ROM - Routine Respiratory Exam Present: rales. Absent: accessory muscle use - Routine Cardiovascular Exam Present: RRR, S1, S2 - Routine Abdominal Exam Present: soft, normoactive bowel sounds - Routine Extremities Exam Present: edema, pulses intact - Routine Skin Exam Present: intact, dry, warm - Routine Neurological Exam sedated, unresponsive - Routine Psychiatric Exam Present: unable to assess - Urinary Catheter Management Coude Cath placed during this visit: yes Reason for continuing: Hourly intake/output Insertion date: 05/31/18 Insertion time: 23:00 <Devi Iqbal - Last Filed: 06/04/18 12:30> Vital signs: Vital Signs 06/04/18 08:31 06/04/18 10:00 06/04/18 12:00 Temperature 98.8 F Pulse Rate 88 86 Respiratory Rate 19 14 Blood Pressure 128/53 L Pulse Oximetry 100 06/04/18 12:14 06/04/18 13:47 06/04/18 14:00 Temperature Pulse Rate 94 H Respiratory Rate 13 Blood Pressure Pulse Oximetry 100 98 06/04/18 16:00 06/04/18 18:00 06/04/18 20:00 Temperature 98.8 F 98.2 F Pulse Rate 96 H 90 93 H Respiratory Rate 14 14 Blood Pressure 129/54 L 120/58 L Pulse Oximetry 98 99 06/04/18 20:17 06/04/18 22:00 06/05/18 00:00 Temperature 97.9 F Pulse Rate 94 H 86 Respiratory Rate 17 Blood Pressure 116/57 L Pulse Oximetry 98 99 06/05/18 02:00 06/05/18 04:00 06/05/18 06:00 Temperature 97.9 F Pulse Rate 160 H 146 H 84 Respiratory Rate 17 Blood Pressure 104/52 L Pulse Oximetry 100 06/05/18 08:00 Temperature Pulse Rate 85 Respiratory Rate Blood Pressure Pulse Oximetry Intake & Output 06/04/18 06/05/18 06/05/18 18:59 06:59 18:59 Intake Total 315 / 315 300 / 300 Output Total 650 / 650 450 / 450 Balance -335 / -335 -150 / -150 Weight 122.9 kg Intake: IV 315 / 315 300 / 300 Cordarone Inj 450 MG In D5W Inj 250 / 250 241 ML @ 1 MG/MIN 33.33 mls/hr IV.CONT TITRATE PRN Rx#: [id number] Neosynephrine Inj 160 MG In NS 10 / 10 Inj 484 ML @ 40 MCG/MIN 7.5 mls /hr IV.CONT TITRATE PRN Rx#: [id number] Pitressin Inj 40 UNIT In NS Inj 55 / 55 98 ML @ 0.04 UNITS/MIN 6 mls/ hr IV.CONT CONT [facility] Rx#: [id number] Ofirmev Inj 1,000 mg In 100 ml 100 / 100 @ 400 mls/hr IV.SIG Q6H [facility] Rx# :[id number] Magnesium Sulfate 1 gm/D5W 100 100 / 100 ml Premix 100 ML @ 100 mls/hr IV.SIG ONCE ONE Rx#:[id number] Rocephin Inj 2,000 MG In NS Inj 100 / 100 100 ML @ 200 mls/hr IV.SIG Q24H [facility] Rx#:[id number] Output: Stool 0 / 0 0 / 0 Urine Amount (Catheter) 650 / 650 450 / 450 Coude 650 / 650 450 / 450 Other: Date of Last Bowel Movement 06/04/18 06/04/18 06/04/18 # Bowel Movements 2 2 # Incontinent Bowel Movements 2 2 - Urinary Catheter Management Coude Cath placed during this visit: no <Norman Tabares - Last Filed: 06/05/18 08:20> Assessment and Plan - Assessment (1) Acute on chronic kidney failure Code(s): N17.9 - Acute kidney failure, unspecified; N18.9 - Chronic kidney disease, unspecified Status: Acute Qualifiers: Acute renal failure type: unspecified Chronic kidney disease stage: stage 3 (moderate) Qualified Code(s): N17.9 - Acute kidney failure, unspecified; N18.3 - Chronic kidney disease, stage 3 (moderate) Plan: His baseline is 2.5 (CKD 4). He may have underlying diabetic nephropathy. Acute decline may be due to renal hypoperfusion secondary to hypotension; possibly infection His renal function is worse, but he is making urine. May need dialysis in next 24 hrs. Apixaban has been held. On Bumex. Repeat labs in AM. Monitor urine output Avoid nephrotoxic agents (2) Acute alteration in mental status Code(s): R41.82 - Altered mental status, unspecified Status: Acute Plan: May have been due to uremia, infection. (3) Septic shock Code(s): A41.9 - Sepsis, unspecified organism; R65.21 - Severe sepsis with septic shock Status: Acute Plan: Antibiotics as ordered, continue supportive care He is being treated for UTI. Also has pneumonia. (4) Diabetes mellitus Code(s): E11.9 - Type 2 diabetes mellitus without complications Status: Acute Plan: Maintain blood glucose 140-180 mg/dL while admitted. <Devi Iqbal - Last Filed: 06/04/18 12:30> - Assessment (1) Acute on chronic kidney failure Code(s): N17.9 - Acute kidney failure, unspecified; N18.9 - Chronic kidney disease, unspecified Status: Acute Qualifiers: Acute renal failure type: unspecified Chronic kidney disease stage: stage 3 (moderate) Qualified Code(s): N17.9 - Acute kidney failure, unspecified; N18.3 - Chronic kidney disease, stage 3 (moderate) (2) Acute alteration in mental status Code(s): R41.82 - Altered mental status, unspecified Status: Acute (3) Septic shock Code(s): A41.9 - Sepsis, unspecified organism; R65.21 - Severe sepsis with septic shock Status: Acute (4) Diabetes mellitus Code(s): E11.9 - Type 2 diabetes mellitus without complications Status: Acute - Attending Attestation patient was seen and examined. Agree with above assessment and plan. Discussed with Dr. Lock. If renal function worsens, he will need dialysis. He has preexisting CKD. Responding to diuretics. <Norman Tabares - Last Filed: 06/05/18 08:20>
--- NOTE | 2018-06-04 13:35 | P.PNID ---
Subjective Remarks: Patient is on the vent, off sedation. He is awake and alert. Following commands. Receiving diuretics. 350 mL's of urine this morning. Afebrile. Cultures as no growth HISTORY OF PRESENT ILLNESS: This is a 72-year-old white male who was brought to the emergency department from [facility] with altered mental status. He was intubated in the emergency department and is currently on the ventilator. He had a decreased blood pressure, as well as increased respiratory rate and was bradycardic and hypothermic with temperature of 94.6 degrees. He had marked decreased urine output and is in acute renal failure. ID consulted for severe sepsis, history of Escherichia faecalis bacteremia, Staphylococcus urinary tract infection. Assist with antibiotic management. Antibiotics: Ceftriaxone Past Medical History: PAST MEDICAL HISTORY: Dementia, diabetes mellitus, hypertension, hypothyroidism, hyperlipidemia, fibromyalgia, benign prostatic hypertrophy, chronic kidney disease stage IV, chronic obstructive pulmonary disease, coronary artery disease, nephrolithiasis, non-ST elevated myocardial infarction, post-traumatic stress disorder, history of nephrostomy, history of coronary stents, history of TURP. Allergies/Adverse Reactions: Allergies ciprofloxacin Allergy (Severe, Verified 05/30/18 23:15) Itching diatrizoate meglumine Allergy (Severe, Verified 05/30/18 23:15) Itching gadobenic acid Allergy (Severe, Verified 05/30/18 23:15) Itching gadodiamide Allergy (Severe, Verified 05/30/18 23:15) Itching gadoteridol Allergy (Severe, Verified 05/30/18 23:15) Itching iodixanol Allergy (Severe, Verified 05/30/18 23:15) Itching iohexol Allergy (Severe, Verified 05/30/18 23:15) Itching levofloxacin Allergy (Severe, Verified 05/30/18 23:15) Itching celecoxib [From Celebrex] Allergy (Unknown, Verified 05/30/18 23:15) Itching ezetimibe [From Zetia] Allergy (Unknown, Verified 05/30/18 23:15) Itching prochlorperazine [From Compazine] Allergy (Unknown, Verified 05/10/18 20:51) Itching red dye Allergy (Unknown, Verified 05/10/18 20:51) Itching Objective Vital Signs 06/03/18 14:00 06/03/18 15:21 06/03/18 15:59 Temperature Pulse Rate 106 H 105 H Respiratory Rate 17 16 Blood Pressure Pulse Oximetry 97 06/03/18 16:00 06/03/18 18:00 06/03/18 20:00 Temperature 101.1 F H 99.4 F Pulse Rate 106 H 126 H 138 H Respiratory Rate 18 16 Blood Pressure 145/69 H 108/56 L Pulse Oximetry 99 99 06/03/18 20:23 06/03/18 20:25 06/03/18 22:00 Temperature Pulse Rate 120 H 123 H Respiratory Rate 17 16 Blood Pressure Pulse Oximetry 100 06/03/18 23:45 06/04/18 00:00 06/04/18 02:00 Temperature 97.7 F Pulse Rate 142 H 84 Respiratory Rate 16 16 Blood Pressure 107/57 L Pulse Oximetry 100 100 06/04/18 03:31 06/04/18 03:33 06/04/18 04:00 Temperature 99.6 F Pulse Rate 83 80 Respiratory Rate 17 18 16 Blood Pressure 110/54 L Pulse Oximetry 98 99 06/04/18 06:00 06/04/18 08:00 06/04/18 08:31 Temperature 98.6 F Pulse Rate 74 88 Respiratory Rate 16 19 Blood Pressure 108/59 L Pulse Oximetry 100 100 06/04/18 10:00 06/04/18 12:00 06/04/18 12:14 Temperature 98.8 F Pulse Rate 88 86 Respiratory Rate 14 13 Blood Pressure 128/53 L Pulse Oximetry 100 Intake & Output 06/03/18 06/04/18 06/04/18 18:59 06:59 18:59 Intake Total 325 / 325 1316 / 1316 Output Total 275 / 275 450 / 450 Balance 50 / 50 866 / 866 Weight 129.1 kg Intake: IV 100 / 100 830 / 830 Cordarone Inj 450 MG In D5W Inj 250 / 250 241 ML @ 1 MG/MIN 33.33 mls/hr IV.CONT TITRATE PRN Rx#: [id number] Diprivan 1000 mg/100 ml Inj 1, 75 / 75 000 mg In 100 ml @ 5 MCG/KG/MIN 4.082 mls/hr IV.CONT TITRATE PRN Rx#:[id number] Sodium Bicarbonate 8.4% Inj 50 100 / 100 MEQ In 1/2 Normal Saline Inj 950 ML @ 42 mls/hr IV.CONT . [id number] [facility] Rx#:[id number] Pitressin Inj 40 UNIT In NS Inj 100 / 100 98 ML @ 0.04 UNITS/MIN 6 mls/ hr IV.CONT CONT [facility] Rx#: [id number] Cordarone Inj 150 MG In D5W Inj 100 / 100 97 ML @ 600 mls/hr IV.SIG ONCE ONE Rx#:[id number] Magnesium Sulfate 1 gm/D5W 100 200 / 200 ml Premix 100 ML @ 100 mls/hr IV.SIG Q1H [facility] Rx#:[id number] Levophed-Dextrose 4 mg/250 ml 5 / 5 Drip 4 mg In 250 ml @ 2 MCG/MIN 7.5 mls/hr IV.SIG TITRATE PRN Rx#:[id number] Rocephin Inj 2,000 MG In NS Inj 100 / 100 100 ML @ 200 mls/hr IV.SIG Q24H [facility] Rx#:[id number] Tube Feeding 150 / 150 366 / 366 Tube Irrigant 75 / 75 120 / 120 Output: Stool 0 / 0 Urine Amount (Catheter) 275 / 275 450 / 450 Coude 275 / 275 450 / 450 Other: Date of Last Bowel Movement 06/03/18 06/04/18 06/04/18 # Bowel Movements 3 2 # Incontinent Bowel Movements 2 05/31/18 07:45 Blood - Peripheral Aerobic Blood Culture - Preliminary No growth in 4 days 05/31/18 07:45 Blood - Peripheral Anaerobic Blood Culture - Preliminary No growth in 4 days 05/31/18 07:50 Blood - Peripheral Aerobic Blood Culture - Preliminary No growth in 4 days 05/31/18 07:50 Blood - Peripheral Anaerobic Blood Culture - Preliminary No growth in 4 days 05/31/18 08:10 Sputum - Endotracheal Gram Stain - Final 05/31/18 08:10 Sputum - Endotracheal Sputum Culture - Final Heavy growth normal respiratory xuan 05/31/18 00:05 Catheterized Urine Urine Culture - Final Proteus mirabilis Lab - Hematology Results 06/03/18 06/04/18 05:25 05:15 WBC 13.8 H 16.5 H RBC 2.68 L 2.55 L Hgb 8.5 L 8.0 L Hct 25.2 L 24.1 L MCV 93.9 94.6 MCH 31.8 31.4 MCHC 33.8 33.2 RDW 13.7 13.7 Plt Count 254 228 MPV 8.2 8.1 Prelim Diff (Auto) Slide review pending Neut % (Auto) 73.3 H 77.9 H Lymph % (Auto) 8.7 L 6.9 L [place] % (Auto) 14.1 H 13.9 H Eos % (Auto) 3.5 1.1 Baso % (Auto) 0.4 0.2 Neut # (Auto) 10.1 H 12.9 H Lymph # (Auto) 1.2 1.1 [place] # (Auto) 2.0 H 2.3 H Eos # (Auto) 0.5 H 0.2 Baso # (Auto) 0.1 0.0 WBC Differential . Manual diff final Seg Neuts % (Manual) 81 H Band Neuts % (Manual) 5 Lymphocytes % (Manual) 5 L Monocytes % (Manual) 9 H Abs Neuts (Manual) 14.2 H Differential Comment Auto diff final . Toxic Granulation 1+ H Dohle Bodies Present H Platelet Estimate Normal Platelet Morphology Normal Ovalocytes 1+ H Lab - Chemistry Results 06/02/18 06/02/18 06/02/18 16:22 20:08 23:42 Sodium Potassium Chloride Carbon Dioxide Anion Gap BUN Creatinine Estimated GFR POC Glucose 197 H 142 H 182 H Random Glucose Hemoglobin A1c Lactic Acid Calcium Phosphorus Magnesium Total Bilirubin AST ALT Alkaline Phosphatase Ammonia Troponin I C-Reactive Protein Total Protein Albumin Triglycerides Cholesterol LDL Cholesterol, Calc HDL Cholesterol Cholesterol/HDL Ratio Amylase Lipase Free T4 Free T3 06/03/18 06/03/18 06/03/18 04:13 05:25 05:25 Sodium 137 Potassium 4.6 Chloride 106 Carbon Dioxide 20.6 L Anion Gap 10 BUN 99 H Creatinine 5.57 H Estimated GFR 10 L POC Glucose 166 H Random Glucose 155 H Hemoglobin A1c Lactic Acid 0.9 Calcium 8.0 L Phosphorus 4.8 Magnesium 1.5 Total Bilirubin 0.3 AST 17 ALT 15 Alkaline Phosphatase 101 Ammonia Troponin I C-Reactive Protein Total Protein 4.9 L Albumin 1.9 L Triglycerides Cholesterol LDL Cholesterol, Calc HDL Cholesterol Cholesterol/HDL Ratio Amylase Lipase Free T4 Free T3 06/03/18 06/03/18 06/03/18 05:25 05:25 05:25 Sodium Potassium Chloride Carbon Dioxide Anion Gap BUN Creatinine Estimated GFR POC Glucose Random Glucose Hemoglobin A1c 7.3 H Lactic Acid Calcium Phosphorus Magnesium Total Bilirubin AST ALT Alkaline Phosphatase Ammonia 18 Troponin I C-Reactive Protein 18.00 H Total Protein Albumin Triglycerides 75 Cholesterol 67 L LDL Cholesterol, Calc 20 HDL Cholesterol 32.0 L Cholesterol/HDL Ratio 2.09 Amylase 43 Lipase 140 Free T4 1.06 Free T3 0.97 L 06/03/18 06/03/18 06/03/18 09:06 12:58 16:43 Sodium Potassium Chloride Carbon Dioxide Anion Gap BUN Creatinine Estimated GFR POC Glucose 130 H 198 H 160 H Random Glucose Hemoglobin A1c Lactic Acid Calcium Phosphorus Magnesium Total Bilirubin AST ALT Alkaline Phosphatase Ammonia Troponin I C-Reactive Protein Total Protein Albumin Triglycerides Cholesterol LDL Cholesterol, Calc HDL Cholesterol Cholesterol/HDL Ratio Amylase Lipase Free T4 Free T3 06/03/18 06/04/18 06/04/18 20:01 00:14 04:56 Sodium Potassium Chloride Carbon Dioxide Anion Gap BUN Creatinine Estimated GFR POC Glucose 182 H 256 H 225 H Random Glucose Hemoglobin A1c Lactic Acid Calcium Phosphorus Magnesium Total Bilirubin AST ALT Alkaline Phosphatase Ammonia Troponin I C-Reactive Protein Total Protein Albumin Triglycerides Cholesterol LDL Cholesterol, Calc HDL Cholesterol Cholesterol/HDL Ratio Amylase Lipase Free T4 Free T3 06/04/18 06/04/18 06/04/18 05:15 05:15 08:26 Sodium 137 Potassium 4.7 Chloride 104 Carbon Dioxide 21.2 Anion Gap 12 BUN 104 H Creatinine 5.72 H Estimated GFR 10 L POC Glucose 171 H Random Glucose 216 H Hemoglobin A1c Lactic Acid Calcium 7.8 L Phosphorus 5.1 H 4.9 Magnesium 1.9 Total Bilirubin AST ALT Alkaline Phosphatase Ammonia Troponin I 0.06 H C-Reactive Protein Total Protein Albumin 1.8 L Triglycerides Cholesterol LDL Cholesterol, Calc HDL Cholesterol Cholesterol/HDL Ratio Amylase Lipase Free T4 Free T3 06/04/18 11:47 Sodium Potassium Chloride Carbon Dioxide Anion Gap BUN Creatinine Estimated GFR POC Glucose 124 H Random Glucose Hemoglobin A1c Lactic Acid Calcium Phosphorus Magnesium Total Bilirubin AST ALT Alkaline Phosphatase Ammonia Troponin I C-Reactive Protein Total Protein Albumin Triglycerides Cholesterol LDL Cholesterol, Calc HDL Cholesterol Cholesterol/HDL Ratio Amylase Lipase Free T4 Free T3 Imaging: ITS Impressions Abdomen/Pelvis CT 05/31/18 00:00 CONCLUSION: 1. No acute abnormality. 2. 7 mm nonobstructing right renal stone. 3. Small bilateral pleural effusions with bibasilar consolidations. This is more pronounced than typical passive atelectasis. Infectious etiology versus pulmonary edema. Head CT 05/31/18 00:00 CONCLUSION: Stable evaluation the brain without evidence of acute infarct, hemorrhage, mass or edema. . Head MRI 06/01/18 00:00 CONCLUSION: 1. No evidence of acute infarct, hemorrhage, mass or edema. 2. Mild cerebral white matter disease characteristic of microvascular ischemic changes. 3. No significant change compared to previous study in 2010 Elbow X-Ray 06/03/18 00:00 CONCLUSION: Unremarkable exam. Shoulder X-Ray 06/03/18 00:00 CONCLUSION: Unremarkable right shoulder. Chest X-Ray 06/03/18 15:38 CONCLUSION: 1. Mild improvement in the left lower lung infiltrate. 2. Stable mild right lower lung infiltrate. Physical Exam: Physical Exam: GENERAL: Alert and awake on the ventilator. HEENT: The head is atraumatic. Unable to fully assess. No icterus. Pupils are constricted, but reactive. NECK: No adenopathy or swelling. LUNGS: Decreased breath sounds bilateral. HEART: Irregular rate and rhythm. No murmurs, rubs or gallops are audible. ABDOMEN: Obese, soft, hyperactive bowel sounds. No masses palpable. EXTREMITIES: Trace edema of the upper extremities. No edema of the lower extremities. No clubbing or cyanosis. SKIN: No rash. NEUROLOGIC: Awake and moves all extremities. No gross focal finding. PSYCHIATRIC: Unable to assess. Assessment and Plan - Plan IMPRESSION: 1. Septic shock, probably secondary to urinary infection. Temperature and white blood cell count is improved. 2. Urinary tract infection. Urine culture has gram-negative della. 3. Acute respiratory failure. 4. Acute kidney disease. 5. Bilateral lung infiltrates, which could be congestive heart failure versus bilateral pneumonia. RECOMMENDATIONS: 1. Continue ceftriaxone 2. Follow clinical status. Hopefully extubation can be done today.
--- NOTE | 2018-06-04 16:22 | ECG ---
Date Performed: 06/03/2018 Time Performed: 16:33:58 PTAGE: 72 years EKG: Atrial fibrillation with uncontrolled ventricular response. Extensive ST-T changes may be d ue to myocardial ischemia Low QRS voltages in limb leads When compared to prior ekg, the atrial fibri llation with rapid ventricular response is new. Abnormal ECG PREVIOUS TRACING : 05/30/2018 23.15 DOCTOR: Cecilio Aguilar Interpretating Date/Time 06/04/2018 16:21:10
[2018-06-05] MEDS: Insulin NovoLOG Aspart Correctional Sugar Inj SQ SCH ×6 (00:02→20:10)
[2018-06-05] MEDS: Oral Hygiene Kit OROPHARYNG SCH ×4 (00:03→16:04)
[2018-06-05] MEDS ORDERED: Digoxin Inj 500 MCG/2 ML Ampul IV.PUSH ONE (03:21)
[2018-06-05] MEDS ORDERED: Mag Sulf 1 gm/100 ml Premix 100 ML IV.SIG ONE (03:24)
--- NOTE | 2018-06-05 03:41 | XR ---
EXAM DATE: 06/05/2018 3:34 AM EDT AGE/SEX: 72 years / Male INDICATIONS: Shortness of breath. CLINICAL DATA: This is the patient's subsequent encounter. Patient reports that signs and symptoms h ave been present for 4 - 6 days and indicates a pain score of Nonresponsive. MEDICAL/SURGICAL HISTORY: . Chronic obstructive pulmonary disease. Hypertension. Congestive hea rt failure. Diabetes. A-fib. CABG. COMPARISON: [facility] [place], CHEST 1V SINGLE AP, 06/03/2018. . FINDINGS: A single AP view of the chest demonstrates the lungs to be symmetrically aerated without evidence of mass, infiltrate or effusion. Status post CABG. Heart mildly enlarged. Left jugular central line stab le position. Endotracheal tube and nasogastric tube have been removed. The cardiomediastinal contours are unremarkable. Osseous structures are intact. CONCLUSION: No acute cardiopulmonary disease. Electronically signed by: Boom Ibarra MD 06/05/2018 3:39 AM EDT
[2018-06-05] MEDS ORDERED: Metoprolol Inj 5 MG/5 ML Vial IV.PUSH ONE (03:50)
[2018-06-05] MEDS: Chlorhexidine Gluconate 2% 1 Pack (2 Cloths) TOPICAL SCH ×2 (04:12→05:13)
[2018-06-05 04:55] LABS: Hematocrit 24.5 % (39.0-51.0); Hemoglobin 8.1 gm/dL (13.0-17.0); Mean Corpuscular HGB Conc 33.3 % (32.0-36.0); Mean Corpuscular Hemoglobin 31.6 pg (27.0-34.0); Mean Corpuscular Volume 94.8 fL (80.0-100.0); Mean Platelet Volume 8.1 fL (7.0-11.0); Platelet Count 214 th/mm3 (150-450); Red Blood Count 2.58 mil/mm3 (4.50-5.90); Red Cell Distribution Width 13.4 % (11.6-17.2); White Blood Count 15.1 th/mm3 (4.0-11.0)
[2018-06-05 05:16] LABS: Alanine Aminotransferase 17 U/L (12-78); Albumin 1.8 g/dL (3.4-5.0); Anion Gap 12 meq/L (5-15); Aspartate Aminotransferase 25 U/L (15-37); Blood Urea Nitrogen 108 mg/dL (7-18); Calcium 8.4 mg/dL (8.5-10.1); Carbon Dioxide 21.6 meq/L (21.0-32.0); Chloride 105 meq/L (98-107); Glomerular Filtration Rate 10 mL/min (>89); Glucose,Random 128 mg/dL (74-106); Magnesium 2.2 mg/dL (1.5-2.5); Phosphorus 5.4 mg/dL (2.5-4.9); Potassium 4.6 meq/L (3.5-5.1); Sodium 139 meq/L (136-145)
[2018-06-05 05:18] LABS: Alkaline Phosphatase 93 U/L (45-117); Total Protein 4.8 g/dL (6.4-8.2)
[2018-06-05] MEDS: Levothyroxine 100 MCG Tablet PO SCH (06:05)
[2018-06-05] MEDS: Levothyroxine 75 MCG Tablet PO SCH (06:05)
--- NOTE | 2018-06-05 08:14 | ECG ---
Date Performed: 06/05/2018 Time Performed: 03:24:40 PTAGE: 72 years EKG: Atrial fibrillation with uncontrolled ventricular response Extensive ST-T changes are nonsp ecific Low QRS voltages in limb leads Abnormal ECG No significant change from prior electrocardiogram . PREVIOUS TRACING : 06/03/2018 16.33 DOCTOR: Mp Way Interpretating Date/Time 06/05/2018 08:14:36
[2018-06-05] MEDS: Sucralfate 1 GM Tablet PO SCH ×3 (10:37→16:03)
[2018-06-05] MEDS: Doxazosin 1 MG Tablet PO SCH (10:37)
[2018-06-05] MEDS: Ferrrous Sulfate 300 MG/5 ML UDC PO SCH (10:37)
[2018-06-05] MEDS: Polyethylene Glycol 3350 17 GM Packet NG/OG SCH ×2 (10:38→20:11)
[2018-06-05] MEDS: Ascorbic Acid 500 MG Tablet PO SCH (10:38)
[2018-06-05] MEDS: Pregabalin 75 MG Capsule PO SCH ×2 (10:38→20:11)
[2018-06-05] MEDS: Hypromellose 0.3% Opth Gel 10 GM Bottle EACH EYE SCH ×2 (10:40→20:18)
[2018-06-05] MEDS: Mupirocin 2% Nasal Oint Topical Syringe EACH NARE SCH ×2 (10:40→20:18)
[2018-06-05] MEDS: Clotrimazole 1% Cream 15 GM Tube TOPICAL SCH ×2 (10:40→20:18)
--- NOTE | 2018-06-05 10:56 | P.PNNP ---
Subjective Interval history: He was extubated. Is lethargic, sleepy. Has edema and upper extremity pain. Renal function is slightly better. In A fib on Amiodarone gtt. <Devi Iqbal - Last Filed: 06/05/18 10:52> Physical Exam Vital signs: Vital Signs 06/04/18 12:00 06/04/18 12:14 06/04/18 13:47 Temperature 98.8 F Pulse Rate 86 Respiratory Rate 14 13 Blood Pressure 128/53 L Pulse Oximetry 100 98 06/04/18 14:00 06/04/18 16:00 06/04/18 18:00 Temperature 98.8 F Pulse Rate 94 H 96 H 90 Respiratory Rate 14 Blood Pressure 129/54 L Pulse Oximetry 98 06/04/18 20:00 06/04/18 20:17 06/04/18 22:00 Temperature 98.2 F Pulse Rate 93 H 94 H Respiratory Rate 14 Blood Pressure 120/58 L Pulse Oximetry 99 98 06/05/18 00:00 06/05/18 02:00 06/05/18 04:00 Temperature 97.9 F 97.9 F Pulse Rate 86 160 H 146 H Respiratory Rate 17 17 Blood Pressure 116/57 L 104/52 L Pulse Oximetry 99 100 06/05/18 06:00 06/05/18 08:00 06/05/18 08:48 Temperature 97.9 F Pulse Rate 84 85 86 Respiratory Rate 14 16 Blood Pressure 141/58 H Pulse Oximetry 95 97 Intake & Output 06/04/18 06/05/18 06/05/18 18:59 06:59 18:59 Intake Total 315 / 315 300 / 300 Output Total 650 / 650 450 / 450 Balance -335 / -335 -150 / -150 Weight 122.9 kg Intake: IV 315 / 315 300 / 300 Cordarone Inj 450 MG In D5W Inj 250 / 250 241 ML @ 1 MG/MIN 33.33 mls/hr IV.CONT TITRATE PRN Rx#: [id number] Neosynephrine Inj 160 MG In NS 10 / 10 Inj 484 ML @ 40 MCG/MIN 7.5 mls /hr IV.CONT TITRATE PRN Rx#: [id number] Pitressin Inj 40 UNIT In NS Inj 55 / 55 98 ML @ 0.04 UNITS/MIN 6 mls/ hr IV.CONT CONT [facility] Rx#: [id number] Ofirmev Inj 1,000 mg In 100 ml 100 / 100 @ 400 mls/hr IV.SIG Q6H PRN Rx# :[id number] Magnesium Sulfate 1 gm/D5W 100 100 / 100 ml Premix 100 ML @ 100 mls/hr IV.SIG ONCE ONE Rx#:[id number] Rocephin Inj 2,000 MG In NS Inj 100 / 100 100 ML @ 200 mls/hr IV.SIG Q24H [facility] Rx#:[id number] Output: Stool 0 / 0 0 / 0 Urine Amount (Catheter) 650 / 650 450 / 450 Coude 650 / 650 450 / 450 Other: Date of Last Bowel Movement 06/04/18 06/04/18 06/04/18 # Bowel Movements 2 2 # Incontinent Bowel Movements 2 2 - Constitutional no acute distress, morbidly obese, chronically ill appearing, somnolent - Routine HEENT Exam Head: Present: normocephalic - Routine Neck Exam Present: supple, full ROM - Routine Respiratory Exam Present: rales, rhonchi, diminished air movement. Absent: accessory muscle use - Routine Cardiovascular Exam Present: RRR, S1, S2 - Routine Abdominal Exam Present: soft, normoactive bowel sounds. Absent: guarding - Routine Exam Testicular: Bilateral swelling - Routine Extremities Exam Present: edema Comments: upper extremity and scrotal edema - Routine Skin Exam Present: intact, dry, warm - Routine Neurological Exam Present: moving all extremities - Detailed Neurological Exam: Coma Scale Eye Opening: To pressure Verbal Response: Words Motor Response: Localizing Carrillo Coma Scale Total: 10 - Routine Psychiatric Exam Present: unable to assess - Urinary Catheter Management Coude Cath placed during this visit: yes Reason for continuing: Hourly intake/output Insertion date: 05/31/18 Insertion time: 23:00 <Devi Iqbal - Last Filed: 06/05/18 10:52> Vital signs: Vital Signs 06/05/18 10:00 06/05/18 12:00 06/05/18 12:03 Temperature 99.2 F Pulse Rate 87 87 87 Respiratory Rate 15 12 Blood Pressure 108/72 Pulse Oximetry 98 96 06/05/18 14:00 06/05/18 16:00 06/05/18 16:20 Temperature 97.9 F Pulse Rate 88 90 93 H Respiratory Rate 12 14 Blood Pressure 114/53 L Pulse Oximetry 98 06/05/18 18:00 06/05/18 20:00 06/05/18 20:32 Temperature 98.6 F Pulse Rate 92 H 94 H 93 H Respiratory Rate 18 16 Blood Pressure 143/56 H Pulse Oximetry 98 06/05/18 22:00 06/05/18 23:58 06/06/18 00:00 Temperature 98.1 F Pulse Rate 93 H 95 H 94 H Respiratory Rate 16 15 Blood Pressure 139/60 Pulse Oximetry 06/06/18 02:00 06/06/18 02:58 06/06/18 03:55 Temperature Pulse Rate 97 H 91 H Respiratory Rate 15 14 Blood Pressure Pulse Oximetry 06/06/18 04:00 06/06/18 06:00 Temperature 98.2 F Pulse Rate 90 92 H Respiratory Rate 14 Blood Pressure 124/56 L Pulse Oximetry Intake & Output 06/05/18 06/06/18 06/06/18 18:59 06:59 18:59 Intake Total 250 / 250 450 / 450 Output Total 475 / 475 450 / 450 Balance -225 / -225 0 / 0 Weight 122.9 kg Intake: IV 250 / 250 450 / 450 Cordarone Inj 450 MG In D5W Inj 250 / 250 250 / 250 241 ML @ 1 MG/MIN 33.33 mls/hr IV.CONT TITRATE PRN Rx#: [id number] Ofirmev Inj 1,000 mg In 100 ml 100 / 100 @ 400 mls/hr IV.SIG Q6H PRN Rx# :[id number] Rocephin Inj 2,000 MG In NS Inj 100 / 100 100 ML @ 200 mls/hr IV.SIG Q24H [facility] Rx#:[id number] Output: Stool 0 / 0 Urine Amount (Catheter) 475 / 475 450 / 450 Coude 475 / 475 450 / 450 Other: Date of Last Bowel Movement 06/04/18 06/05/18 Weight On Admission 122.9 kg - Urinary Catheter Management Coude Cath placed during this visit: no <Norman Tabares - Last Filed: 06/06/18 09:24> Assessment and Plan - Assessment (1) Acute on chronic kidney failure Code(s): N17.9 - Acute kidney failure, unspecified; N18.9 - Chronic kidney disease, unspecified Status: Acute Qualifiers: Acute renal failure type: unspecified Chronic kidney disease stage: stage 3 (moderate) Qualified Code(s): N17.9 - Acute kidney failure, unspecified; N18.3 - Chronic kidney disease, stage 3 (moderate) Plan: His baseline is 2.5 (CKD 4). He may have underlying diabetic nephropathy. Acute decline may be due to renal hypoperfusion secondary to hypotension; possibly infection His renal function is slightly better He is non oliguric. Continue diuretics, monitor fluid status. On Bumex TID 2 mg IV. May need dialysis in next 24 hrs. Apixaban has been held. Repeat labs in AM. Monitor urine output Avoid nephrotoxic agents (2) Acute alteration in mental status Code(s): R41.82 - Altered mental status, unspecified Status: Acute Plan: May have been due to uremia, infection. Monitor post extubation (3) Septic shock Code(s): A41.9 - Sepsis, unspecified organism; R65.21 - Severe sepsis with septic shock Status: Acute Plan: Antibiotics as ordered, continue supportive care He is being treated for UTI. Also has pneumonia. (4) Diabetes mellitus Code(s): E11.9 - Type 2 diabetes mellitus without complications Status: Acute Plan: Maintain blood glucose 140-180 mg/dL while admitted. <Devi Iqbal - Last Filed: 06/05/18 10:52> - Assessment (1) Acute on chronic kidney failure Code(s): N17.9 - Acute kidney failure, unspecified; N18.9 - Chronic kidney disease, unspecified Status: Acute Qualifiers: Qualified Code(s): N17.9 - Acute kidney failure, unspecified; N18.3 - Chronic kidney disease, stage 3 (moderate) (2) Acute alteration in mental status Code(s): R41.82 - Altered mental status, unspecified Status: Acute (3) Septic shock Code(s): A41.9 - Sepsis, unspecified organism; R65.21 - Severe sepsis with septic shock Status: Acute (4) Diabetes mellitus Code(s): E11.9 - Type 2 diabetes mellitus without complications Status: Acute - Attending Attestation patient was seen and examined. Agree with above assessment and plan. Likely needs dialysis soon. Poor prognosis. <Norman Tabares - Last Filed: 06/06/18 09:24>
--- NOTE | 2018-06-05 12:03 | P.PNCC ---
Subjective Subjective Remarks/Hospital Course: 05/31: This is a 72-year-old male. He is a resident of [facility] and [facility]. Date of admission 05/30/2018. Originally admitted to hospitalist service and now under our service 05/31/2018. Past medical history includes fibromyalgia, dementia, history of CVA, obstructive sleep apnea, atrial fibrillation/chronic, COPD, chronic kidney disease stage IV, BPH, diabetes mellitus, elevated BMI, atherosclerotic vascular disease, nephrolithiasis, liver cirrhosis, essential hypertension, hyperlipidemia, gout, history of right ice C occlusion, hypothyroidism, dysphagia, constipation, diplopia, CABG 2, TURP, cardiac stent, right percutaneous lithotripsy, liver biopsy and bilateral hand surgery. Patient is also on chronic benzodiazepines. Patient presented to [facility] on 05/30/2018 with history of being found on the floor between his bed in the window. His head was against the dresser. He was able to tell if he hit his head. There is a large amount about was in the floor but not bleeding from the head. He has excoriations on his back and his left knee and right wrist. CT brain at this facility was negative. Patient is on apixaban and aspirin at home. Patient was noted to have a urinary tract infection was started on cefepime and gentamicin by ED physician. Throughout the night, patient became more confused and is found to be obtunded earlier this morning was intubated and centralized placed due to hypotension. He is currently on norepinephrine drip at 12 mcg/min. Troponin was 0.05. Patient had a leukocytosis, normocytic anemia, creatinine 6.6/ baseline around 2.5 and TSH is 0.356. We are asked to admit the patient at this time. He is currently intubated and arousable in room C 25 in ED. No family available. 06/01: Remains sedated, orally intubated on mechanical ventilation. Had generalized tonic-clonic movements which were questionable last night for which he was given Ativan 4 mg IV and loaded with Cerebyx. EEG this morning pending. Neurology consult noted. Head CT negative for bleed. Negligible urine output. Worsening BUN/creatinine. On vasopressin low-dose currently, off all other pressors. 06/02: Remains sedated, arousable, orally intubated on mechanical ventilation. Not following commands unenlightening sedation. 06/03: Arouses off sedation, not following commands. Orally intubated on mechanical ventilation. On CPAP trials. 06/04: More awake today tracking. Intermittently follows commands on upper and lower extremities. Remains on Sujit-Synephrine and vasopressin. Also change amiodarone to p.o. BUN climbing 104 today, creatinine stable at 5.7. May need to start hemodialysis will discuss with nephrology 06/05: Patient was extubated yesterday, breathing well respiratory graf tolerating. Remains confused but follows commands continues to have some garbled speech. Creatinine is 5.65 BUN 108 today. Still making urine nephrology wants to hold off HD another day and monitor. UO 1.1 L in 24 hours Objective Vital Signs / I&O: Vital Signs 06/04/18 12:00 06/04/18 12:14 06/04/18 13:47 Temperature 98.8 F Pulse Rate 86 Respiratory Rate 14 13 Blood Pressure 128/53 L Pulse Oximetry 100 98 06/04/18 14:00 06/04/18 16:00 06/04/18 18:00 Temperature 98.8 F Pulse Rate 94 H 96 H 90 Respiratory Rate 14 Blood Pressure 129/54 L Pulse Oximetry 98 06/04/18 20:00 06/04/18 20:17 06/04/18 22:00 Temperature 98.2 F Pulse Rate 93 H 94 H Respiratory Rate 14 Blood Pressure 120/58 L Pulse Oximetry 99 98 06/05/18 00:00 06/05/18 02:00 06/05/18 04:00 Temperature 97.9 F 97.9 F Pulse Rate 86 160 H 146 H Respiratory Rate 17 17 Blood Pressure 116/57 L 104/52 L Pulse Oximetry 99 100 06/05/18 06:00 06/05/18 08:00 06/05/18 08:48 Temperature 97.9 F Pulse Rate 84 85 86 Respiratory Rate 14 16 Blood Pressure 141/58 H Pulse Oximetry 95 97 Intake & Output 06/04/18 06/05/18 06/05/18 18:59 06:59 18:59 Intake Total 315 / 315 300 / 300 Output Total 650 / 650 450 / 450 Balance -335 / -335 -150 / -150 Weight 122.9 kg Intake: IV 315 / 315 300 / 300 Cordarone Inj 450 MG In D5W Inj 250 / 250 241 ML @ 1 MG/MIN 33.33 mls/hr IV.CONT TITRATE PRN Rx#: [id number] Neosynephrine Inj 160 MG In NS 10 / 10 Inj 484 ML @ 40 MCG/MIN 7.5 mls /hr IV.CONT TITRATE PRN Rx#: [id number] Pitressin Inj 40 UNIT In NS Inj 55 / 55 98 ML @ 0.04 UNITS/MIN 6 mls/ hr IV.CONT CONT [facility]O Rx#: [id number] Ofirmev Inj 1,000 mg In 100 ml 100 / 100 @ 400 mls/hr IV.SIG Q6H PRN Rx# :[id number] Magnesium Sulfate 1 gm/D5W 100 100 / 100 ml Premix 100 ML @ 100 mls/hr IV.SIG ONCE ONE Rx#:[id number] Rocephin Inj 2,000 MG In NS Inj 100 / 100 100 ML @ 200 mls/hr IV.SIG Q24H [facility] Rx#:[id number] Output: Stool 0 / 0 0 / 0 Urine Amount (Catheter) 650 / 650 450 / 450 Coude 650 / 650 450 / 450 Other: Date of Last Bowel Movement 06/04/18 06/04/18 06/04/18 # Bowel Movements 2 2 # Incontinent Bowel Movements 2 2 Result Diagrams: 06/05/18 04:40 06/05/18 04:40 Objective Remarks: GENERAL: 72-year-old male currently on NC SKIN: Warm and dry. Excoriations on back, left knee anteriorly and right wrist HEAD: Atraumatic. Normocephalic. EYES: Pupils equal and round bilaterally and minimally reactive. No scleral icterus. No injection or drainage. ENT: No nasal bleeding or discharge. NECK: Trachea midline. No JVD. CARDIOVASCULAR: S1-S2 , no gallop or murmur. Chronic A. fib on amiodarone GTT RESPIRATORY: Good oxygen saturation on nasal cannula oxygen. Air entry diminished bilaterally with few inspiratory crackles GASTROINTESTINAL: Abdomen soft, non-tender, obese. Hypoactive bowel sounds appreciated. MUSCULOSKELETAL: Extremities with pitting bilateral lower extremity edema. No obvious deformities. NEUROLOGICAL: Patient is alert awake, confused garbled speech make assessing orientation difficult. Follows commands weakly 4 Assessment and Plan - Assessment and Plan Plan: Neuro/Psych: Acute encephalopathy likely toxic metabolic secondary to severe sepsis CVA Dementia disorder NOS Chronic benzodiazepine use History of fibromyalgia Adjustment disorder with depressive features History of diplopia Remains off all sedation. Goal of RASS -0 CT brain on admission revealed no acute intracranial findings Continue pregabalin 75 mg twice daily for peripheral neuropathy. Holding alprazolam 0.25 mg 3 times daily for anxiety. Questionable seizure, loaded with Cerebyx. EEG moderate encephalopathy no seizures. Neuro following. Repeat Head CT negative for bleed. 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 fib with RVR Off Sujit-Synephrine and vasopressin 2D echo 07/09 revealed EF of 40-45%. LV dilatation. PAP 31 mmHg. Basilar inferolateral and inferior lateral hypokinesis. Repeat echocardiogram: Moderate concentric left ventricular hypertrophy. LVEF 60-65%. Estimated PASP is 63.3 mmHg. [id number] pulmonary hypertension present (range 60-70 mmHg). Initial troponin 0 0.05. Heart catheterization 09/08 revealed patent LAURA to LAD and SVG to RCA. 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 Continue atorvastatin 40 mg daily for dyslipidemia Holding diltiazem 120 mg daily, lisinopril 40 mg daily and metoprolol tartrate 100 mg twice daily/home medications while on vasopressors Continue Bumex per nephrology Resp: Acute respiratory failure-extubated 06/04/18 History of WERNER History of COPD Prior history of tobaccoism Extubated yesterday tolerating well currently on nasal cannula Albuterol/ipratropium aerosols every 4 hours with albuterol aerosols every 2 hours as needed for dyspnea Holding Tiotropium 80 mg daily while on ipratropium GI: Gastroesophageal reflux disease history of gastric ulcer Constipation Hypoalbuminemia History of dysphasia History of liver biopsy with diagnosis of cirrhosis? NPO per speech eval. Lansoprazole/sucralfate for GI prophylaxis. Polyethylene glycol 17 g twice daily for bowel regimen : BPH status post TURP History of nephrolithiasis status post right percutaneous lithotripsy 2004 Resume tamsulosin 0.4 mg daily when able Maintain [place] catheter for accurate I's and O's Endo: Diabetes mellitus 1.5 treat as 1.0 Hypothyroidism History of gout Holding insulin glargine 25 units twice daily Sliding-scale insulin with aspart insulin/high regimen with Accu-Cheks every 4 hours to maintain euglycemia Decreased levothyroxine from 200-175 mg daily. TSH was 0.356. Renal: Acute kidney injury in the setting of chronic kidney disease stage IV Abdomen/pelvis CT with nonobstructing right renal stone Nephrology following. Continue Bumex. Patient is not oliguric but BUN continues to increase 108 today, creatinine stable at 5.7 May need to start hemodialysis. Nephrology wants to wait at this point as the patient is nonoliguric Monitor urine output with accurate I's and O's. Heme: Leukocytosis Normocytic anemia/anemia of chronic kidney disease Chronic apixaban use 2.5 mg twice daily Apixaban 2.5 mg twice daily. Hold for invasive procedures Monitor CBC daily. Follow trends. No indication for transfusion of blood products at this time. Type and screen ID: Proteus UTI History of Enterococcus faecalis bacteremia History of staph saprophyticus urinary tract infection Continue cefepime 500 mg daily/renally dosed for Proteus UTI Infectious disease following. Received cefepime and gentamicin in the ED. CT abdomen/pelvis with nonobstructing right renal stone Holding doxycycline 100 mg twice daily/home medication Resume clotrimazole 1% to affected areas twice daily. Blood cultures 2 05/31 negative Urine cultures with Proteus Influenza a and B negative. Legionella and pneumococcal urinary antigens negative Access -Left subclavian CVL day (05/31) placed by ED physician Prophylaxis -GI -lansoprazole/sucralfate -DVT -SCD/apixaban will provide DVT prophylaxis. Hold apixaban for possible HD catheter insertion Palliative care following. DNR now Level 3 Code Status: DNR
--- NOTE | 2018-06-05 14:28 | P.PNID ---
Subjective Remarks: Patient was extubated. Lethargic but follows commands. Speaks with mumble. Following commands. Good UO. Afebrile. Cultures as no growth HISTORY OF PRESENT ILLNESS: This is a 72-year-old white male who was brought to the emergency department from [facility] with altered mental status. He was intubated in the emergency department and is currently on the ventilator. He had a decreased blood pressure, as well as increased respiratory rate and was bradycardic and hypothermic with temperature of 94.6 degrees. He had marked decreased urine output and is in acute renal failure. ID consulted for severe sepsis, history of Escherichia faecalis bacteremia, Staphylococcus urinary tract infection. Assist with antibiotic management. Antibiotics: Ceftriaxone Past Medical History: PAST MEDICAL HISTORY: Dementia, diabetes mellitus, hypertension, hypothyroidism, hyperlipidemia, fibromyalgia, benign prostatic hypertrophy, chronic kidney disease stage IV, chronic obstructive pulmonary disease, coronary artery disease, nephrolithiasis, non-ST elevated myocardial infarction, post-traumatic stress disorder, history of nephrostomy, history of coronary stents, history of TURP. Allergies/Adverse Reactions: Allergies ciprofloxacin Allergy (Severe, Verified 05/30/18 23:15) Itching diatrizoate meglumine Allergy (Severe, Verified 05/30/18 23:15) Itching gadobenic acid Allergy (Severe, Verified 05/30/18 23:15) Itching gadodiamide Allergy (Severe, Verified 05/30/18 23:15) Itching gadoteridol Allergy (Severe, Verified 05/30/18 23:15) Itching iodixanol Allergy (Severe, Verified 05/30/18 23:15) Itching iohexol Allergy (Severe, Verified 05/30/18 23:15) Itching levofloxacin Allergy (Severe, Verified 05/30/18 23:15) Itching celecoxib [From Celebrex] Allergy (Unknown, Verified 05/30/18 23:15) Itching ezetimibe [From Zetia] Allergy (Unknown, Verified 05/30/18 23:15) Itching prochlorperazine [From Compazine] Allergy (Unknown, Verified 05/10/18 20:51) Itching red dye Allergy (Unknown, Verified 05/10/18 20:51) Itching Objective Vital Signs 06/04/18 16:00 06/04/18 18:00 06/04/18 20:00 Temperature 98.8 F 98.2 F Pulse Rate 96 H 90 93 H Respiratory Rate 14 14 Blood Pressure 129/54 L 120/58 L Pulse Oximetry 98 99 06/04/18 20:17 06/04/18 22:00 06/05/18 00:00 Temperature 97.9 F Pulse Rate 94 H 86 Respiratory Rate 17 Blood Pressure 116/57 L Pulse Oximetry 98 99 06/05/18 02:00 06/05/18 04:00 06/05/18 06:00 Temperature 97.9 F Pulse Rate 160 H 146 H 84 Respiratory Rate 17 Blood Pressure 104/52 L Pulse Oximetry 100 06/05/18 08:00 06/05/18 08:48 06/05/18 10:00 Temperature 97.9 F Pulse Rate 85 86 87 Respiratory Rate 14 16 Blood Pressure 141/58 H Pulse Oximetry 95 97 06/05/18 12:00 06/05/18 12:03 Temperature 99.2 F Pulse Rate 87 87 Respiratory Rate 15 12 Blood Pressure 108/72 Pulse Oximetry 98 96 Intake & Output 06/04/18 06/05/18 06/05/18 18:59 06:59 18:59 Intake Total 315 / 315 300 / 300 250 / 250 Output Total 650 / 650 450 / 450 Balance -335 / -335 -150 / -150 250 / 250 Weight 122.9 kg Intake: IV 315 / 315 300 / 300 250 / 250 Cordarone Inj 450 MG In D5W Inj 250 / 250 250 / 250 241 ML @ 1 MG/MIN 33.33 mls/hr IV.CONT TITRATE PRN Rx#: [id number] Neosynephrine Inj 160 MG In NS Inj 484 ML @ 40 MCG/MIN 7.5 mls /hr IV.CONT TITRATE PRN Rx#: [id number] Pitressin Inj 40 UNIT In NS Inj 55 / 55 98 ML @ 0.04 UNITS/MIN 6 mls/ hr IV.CONT CONT WILFREDO Rx#: [id number] Ofirmev Inj 1,000 mg In 100 ml 100 / 100 @ 400 mls/hr IV.SIG Q6H PRN Rx# :[id number] Magnesium Sulfate 1 gm/D5W 100 100 / 100 ml Premix 100 ML @ 100 mls/hr IV.SIG ONCE ONE Rx#:[id number] Rocephin Inj 2,000 MG In NS Inj 100 / 100 100 ML @ 200 mls/hr IV.SIG Q24H [facility] Rx#:[id number] Output: Stool 0 / 0 0 / 0 Urine Amount (Catheter) 650 / 650 450 / 450 Coude 650 / 650 450 / 450 Other: Date of Last Bowel Movement 06/04/18 06/04/18 06/04/18 # Bowel Movements 2 2 # Incontinent Bowel Movements 2 2 05/31/18 07:45 Blood - Peripheral Aerobic Blood Culture - Final No growth in 5 days 05/31/18 07:45 Blood - Peripheral Anaerobic Blood Culture - Final No growth in 5 days 05/31/18 07:50 Blood - Peripheral Aerobic Blood Culture - Final No growth in 5 days 05/31/18 07:50 Blood - Peripheral Anaerobic Blood Culture - Final No growth in 5 days 05/31/18 08:10 Sputum - Endotracheal Gram Stain - Final 05/31/18 08:10 Sputum - Endotracheal Sputum Culture - Final Heavy growth normal respiratory xuan 05/31/18 00:05 Catheterized Urine Urine Culture - Final Proteus mirabilis Lab - Hematology Results 06/04/18 06/05/18 05:15 04:40 WBC 16.5 H 15.1 H RBC 2.55 L 2.58 L Hgb 8.0 L 8.1 L Hct 24.1 L 24.5 L MCV 94.6 94.8 MCH 31.4 31.6 MCHC 33.2 33.3 RDW 13.7 13.4 Plt Count 228 214 MPV 8.1 8.1 Prelim Diff (Auto) Slide review pending Neut % (Auto) 77.9 H Lymph % (Auto) 6.9 L [place] % (Auto) 13.9 H Eos % (Auto) 1.1 Baso % (Auto) 0.2 Neut # (Auto) 12.9 H Lymph # (Auto) 1.1 [place] # (Auto) 2.3 H Eos # (Auto) 0.2 Baso # (Auto) 0.0 WBC Differential Manual diff final Seg Neuts % (Manual) 81 H Band Neuts % (Manual) 5 Lymphocytes % (Manual) 5 L Monocytes % (Manual) 9 H Abs Neuts (Manual) 14.2 H Differential Comment . Toxic Granulation 1+ H Dohle Bodies Present H Platelet Estimate Normal Platelet Morphology Normal Ovalocytes 1+ H Lab - Chemistry Results 06/03/18 06/03/18 06/04/18 16:43 20:01 00:14 Sodium Potassium Chloride Carbon Dioxide Anion Gap BUN Creatinine Estimated GFR POC Glucose 160 H 182 H 256 H Random Glucose Calcium Phosphorus Magnesium Total Bilirubin AST ALT Alkaline Phosphatase Troponin I Total Protein Albumin 06/04/18 06/04/18 06/04/18 04:56 05:15 05:15 Sodium 137 Potassium 4.7 Chloride 104 Carbon Dioxide 21.2 Anion Gap 12 BUN 104 H Creatinine 5.72 H Estimated GFR 10 L POC Glucose 225 H Random Glucose 216 H Calcium 7.8 L Phosphorus 5.1 H 4.9 Magnesium 1.9 Total Bilirubin AST ALT Alkaline Phosphatase Troponin I 0.06 H Total Protein Albumin 1.8 L 06/04/18 06/04/18 06/04/18 08:26 11:47 15:53 Sodium Potassium Chloride Carbon Dioxide Anion Gap BUN Creatinine Estimated GFR POC Glucose 171 H 124 H 85 Random Glucose Calcium Phosphorus Magnesium Total Bilirubin AST ALT Alkaline Phosphatase Troponin I Total Protein Albumin 06/04/18 06/04/18 06/04/18 17:57 20:00 23:33 Sodium Potassium Chloride Carbon Dioxide Anion Gap BUN Creatinine Estimated GFR POC Glucose 105 121 H 112 H Random Glucose Calcium Phosphorus Magnesium Total Bilirubin AST ALT Alkaline Phosphatase Troponin I Total Protein Albumin 06/05/18 06/05/18 06/05/18 04:40 09:01 12:07 Sodium 139 Potassium 4.6 Chloride 105 Carbon Dioxide 21.6 Anion Gap 12 BUN 108 H Creatinine 5.65 H Estimated GFR 10 L POC Glucose 157 H 158 H Random Glucose 128 H Calcium 8.4 L Phosphorus 5.4 H Magnesium 2.2 Total Bilirubin 0.3 AST 25 ALT 17 Alkaline Phosphatase 93 Troponin I Total Protein 4.8 L Albumin 1.8 L Imaging: ITS Impressions Abdomen/Pelvis CT 05/31/18 00:00 CONCLUSION: 1. No acute abnormality. 2. 7 mm nonobstructing right renal stone. 3. Small bilateral pleural effusions with bibasilar consolidations. This is more pronounced than typical passive atelectasis. Infectious etiology versus pulmonary edema. Head CT 05/31/18 00:00 CONCLUSION: Stable evaluation the brain without evidence of acute infarct, hemorrhage, mass or edema. . Head MRI 06/01/18 00:00 CONCLUSION: 1. No evidence of acute infarct, hemorrhage, mass or edema. 2. Mild cerebral white matter disease characteristic of microvascular ischemic changes. 3. No significant change compared to previous study in 2010 Elbow X-Ray 06/03/18 00:00 CONCLUSION: Unremarkable exam. Shoulder X-Ray 06/03/18 00:00 CONCLUSION: Unremarkable right shoulder. Chest X-Ray 06/05/18 06:00 CONCLUSION: No acute cardiopulmonary disease. Physical Exam: Physical Exam: GENERAL: Alert and awake on the ventilator. HEENT: The head is atraumatic. No icterus. Pupils equally reactive. Oropharynx is dry. NECK: No adenopathy or swelling. LUNGS: Decreased breath sounds. HEART: Irregular rate and rhythm. No murmurs, rubs or gallops. ABDOMEN: Obese, soft, hyperactive bowel sounds. No masses palpable. EXTREMITIES: 2+ edema at UE's. trace edema of the lower extremities. No clubbing or cyanosis. SKIN: No rash. NEUROLOGIC: Awake and moves all extremities. No gross focal finding. Assessment and Plan - Plan IMPRESSION: 1. Septic shock, probably secondary to urinary infection. Temperature and white blood cell count is improved. 2. Urinary tract infection. Proteus. 3. Acute respiratory failure. 4. Acute kidney disease. 5. Bilateral lung infiltrates, which could be congestive heart failure versus bilateral pneumonia. RECOMMENDATIONS: 1. Continue ceftriaxone 2. Monitor WBC. 3. Follow clinical status.
--- NOTE | 2018-06-05 16:04 | P.PNPAL ---
Reason for Visit Reason for visit: a. To assist with evaluation and management of symptoms including: Dyspnea, encephalopathy b. To assist medical decision maker(s) with: better understanding of current medical conditions; weighing benefits/burdens of medical treatment options; making medical treatment decisions. Subjective Subjective/Interval History: INTERVAL NOTE: Patient has become more awake and is now trying to answer some yes/no questions.. Tmax 99.2, GFR remains 10. Patient extubation yesterday, appears to be breathing comfortably. He denies pain or dyspnea. Objective Vital Signs: Vital Signs 06/04/18 16:00 06/04/18 18:00 06/04/18 20:00 Temperature 98.8 F 98.2 F Pulse Rate 96 H 90 93 H Respiratory Rate 14 14 Blood Pressure 129/54 L 120/58 L Pulse Oximetry 98 99 06/04/18 20:17 06/04/18 22:00 06/05/18 00:00 Temperature 97.9 F Pulse Rate 94 H 86 Respiratory Rate 17 Blood Pressure 116/57 L Pulse Oximetry 98 99 06/05/18 02:00 06/05/18 04:00 06/05/18 06:00 Temperature 97.9 F Pulse Rate 160 H 146 H 84 Respiratory Rate 17 Blood Pressure 104/52 L Pulse Oximetry 100 06/05/18 08:00 06/05/18 08:48 06/05/18 10:00 Temperature 97.9 F Pulse Rate 85 86 87 Respiratory Rate 14 16 Blood Pressure 141/58 H Pulse Oximetry 95 97 06/05/18 12:00 06/05/18 12:03 Temperature 99.2 F Pulse Rate 87 87 Respiratory Rate 15 12 Blood Pressure 108/72 Pulse Oximetry 98 96 Intake & Output 06/04/18 06/05/18 06/05/18 18:59 06:59 18:59 Intake Total 315 / 315 300 / 300 250 / 250 Output Total 650 / 650 450 / 450 Balance -335 / -335 -150 / -150 250 / 250 Weight 122.9 kg Intake: IV 315 / 315 300 / 300 250 / 250 Cordarone Inj 450 MG In D5W Inj 250 / 250 250 / 250 241 ML @ 1 MG/MIN 33.33 mls/hr IV.CONT TITRATE PRN Rx#: [id number] Neosynephrine Inj 160 MG In NS Inj 484 ML @ 40 MCG/MIN 7.5 mls /hr IV.CONT TITRATE PRN Rx#: [id number] Pitressin Inj 40 UNIT In NS Inj 55 / 55 98 ML @ 0.04 UNITS/MIN 6 mls/ hr IV.CONT CONT WILFREDO Rx#: [id number] Ofirmev Inj 1,000 mg In 100 ml 100 / 100 @ 400 mls/hr IV.SIG Q6H PRN Rx# :[id number] Magnesium Sulfate 1 gm/D5W 100 100 / 100 ml Premix 100 ML @ 100 mls/hr IV.SIG ONCE ONE Rx#:[id number] Rocephin Inj 2,000 MG In NS Inj 100 / 100 100 ML @ 200 mls/hr IV.SIG Q24H WILFREDO Rx#:[id number] Output: Stool 0 / 0 0 / 0 Urine Amount (Catheter) 650 / 650 450 / 450 Coude 650 / 650 450 / 450 Other: Date of Last Bowel Movement 06/04/18 06/04/18 06/04/18 # Bowel Movements 2 2 # Incontinent Bowel Movements 2 2 Physical Exam: CONSTITUTIONAL/GENERAL: This is an adequately nourished patient, sedated, mechanically ventilated, in no apparent distress. TUBES/LINES/DRAINS: ET tube, left subclavian line, [place] CARDIOVASCULAR: Regular rate and rhythm without murmurs, gallops, or rubs. No JVD. Peripheral pulses symmetric. RESPIRATORY/CHEST: Symmetric, unlabored respirations. A few scattered rales. GASTROINTESTINAL: Abdomen soft, non-tender, and moderately distended. No hepato- splenomegaly, or palpable masses. No guarding. Bowel sounds present. MUSCULOSKELETAL: Extremities without clubbing, cyanosis, but there is moderate diffuse edema. No joint tenderness or effusion noted. No mottling or clubbing. NEUROLOGICAL: More alert, answers yes/no questions, follows simple commands. PSYCHIATRIC: Does not appear anxious or fearful. Diagnostic Tests Laboratory: Laboratory Results - last 72 hr 06/02/18 06/02/18 06/02/18 16:22 20:08 23:42 WBC RBC Hgb Hct MCV MCH MCHC RDW Plt Count MPV Prelim Diff (Auto) Neut % (Auto) Lymph % (Auto) [place] % (Auto) Eos % (Auto) Baso % (Auto) Neut # (Auto) Lymph # (Auto) [place] # (Auto) Eos # (Auto) Baso # (Auto) WBC Differential Seg Neuts % (Manual) Band Neuts % (Manual) Lymphocytes % (Manual) Monocytes % (Manual) Abs Neuts (Manual) Differential Comment Toxic Granulation Dohle Bodies Platelet Estimate Platelet Morphology Ovalocytes PT INR APTT Puncture Site Patient Temperature O2 Saturation ABG pH ABG pCO2 ABG pO2 ABG HCO3 ABG O2 Content ABG Base Excess ABG Methemoglobin Maurice Test Hemoglobin Carboxyhemoglobin O2 Delivery Device Vent Setting Inspired O2 Critical Value Sodium Potassium Chloride Carbon Dioxide Anion Gap BUN Creatinine Estimated GFR POC Glucose 197 H 142 H 182 H Random Glucose Hemoglobin A1c Lactic Acid Calcium Phosphorus Magnesium Total Bilirubin AST ALT Alkaline Phosphatase Ammonia Troponin I C-Reactive Protein Total Protein Albumin Triglycerides Cholesterol LDL Cholesterol, Calc HDL Cholesterol Cholesterol/HDL Ratio Amylase Lipase Free T4 Free T3 06/03/18 06/03/18 06/03/18 04:13 05:25 05:25 WBC 13.8 H RBC 2.68 L Hgb 8.5 L Hct 25.2 L MCV 93.9 MCH 31.8 MCHC 33.8 RDW 13.7 Plt Count 254 MPV 8.2 Prelim Diff (Auto) Neut % (Auto) 73.3 H Lymph % (Auto) 8.7 L [place] % (Auto) 14.1 H Eos % (Auto) 3.5 Baso % (Auto) 0.4 Neut # (Auto) 10.1 H Lymph # (Auto) 1.2 [place] # (Auto) 2.0 H Eos # (Auto) 0.5 H Baso # (Auto) 0.1 WBC Differential . Seg Neuts % (Manual) Band Neuts % (Manual) Lymphocytes % (Manual) Monocytes % (Manual) Abs Neuts (Manual) Differential Comment Auto diff final Toxic Granulation Dohle Bodies Platelet Estimate Platelet Morphology Ovalocytes PT 11.3 INR 1.1 APTT 38.5 H Puncture Site Patient Temperature O2 Saturation ABG pH ABG pCO2 ABG pO2 ABG HCO3 ABG O2 Content ABG Base Excess ABG Methemoglobin Maurice Test Hemoglobin Carboxyhemoglobin O2 Delivery Device Vent Setting Inspired O2 Critical Value Sodium Potassium Chloride Carbon Dioxide Anion Gap BUN Creatinine Estimated GFR POC Glucose 166 H Random Glucose Hemoglobin A1c Lactic Acid Calcium Phosphorus Magnesium Total Bilirubin AST ALT Alkaline Phosphatase Ammonia Troponin I C-Reactive Protein Total Protein Albumin Triglycerides Cholesterol LDL Cholesterol, Calc HDL Cholesterol Cholesterol/HDL Ratio Amylase Lipase Free T4 Free T3 06/03/18 06/03/18 06/03/18 05:25 05:25 05:25 WBC RBC Hgb Hct MCV MCH MCHC RDW Plt Count MPV Prelim Diff (Auto) Neut % (Auto) Lymph % (Auto) [place] % (Auto) Eos % (Auto) Baso % (Auto) Neut # (Auto) Lymph # (Auto) [place] # (Auto) Eos # (Auto) Baso # (Auto) WBC Differential Seg Neuts % (Manual) Band Neuts % (Manual) Lymphocytes % (Manual) Monocytes % (Manual) Abs Neuts (Manual) Differential Comment Toxic Granulation Dohle Bodies Platelet Estimate Platelet Morphology Ovalocytes PT INR APTT Puncture Site Patient Temperature O2 Saturation ABG pH ABG pCO2 ABG pO2 ABG HCO3 ABG O2 Content ABG Base Excess ABG Methemoglobin Maurice Test Hemoglobin Carboxyhemoglobin O2 Delivery Device Vent Setting Inspired O2 Critical Value Sodium 137 Potassium 4.6 Chloride 106 Carbon Dioxide 20.6 L Anion Gap 10 BUN 99 H Creatinine 5.57 H Estimated GFR 10 L POC Glucose Random Glucose 155 H Hemoglobin A1c Lactic Acid 0.9 Calcium 8.0 L Phosphorus 4.8 Magnesium 1.5 Total Bilirubin 0.3 AST 17 ALT 15 Alkaline Phosphatase 101 Ammonia 18 Troponin I C-Reactive Protein Total Protein 4.9 L Albumin 1.9 L Triglycerides Cholesterol LDL Cholesterol, Calc HDL Cholesterol Cholesterol/HDL Ratio Amylase Lipase Free T4 Free T3 06/03/18 06/03/18 06/03/18 05:25 05:25 09:06 WBC RBC Hgb Hct MCV MCH MCHC RDW Plt Count MPV Prelim Diff (Auto) Neut % (Auto) Lymph % (Auto) [place] % (Auto) Eos % (Auto) Baso % (Auto) Neut # (Auto) Lymph # (Auto) [place] # (Auto) Eos # (Auto) Baso # (Auto) WBC Differential Seg Neuts % (Manual) Band Neuts % (Manual) Lymphocytes % (Manual) Monocytes % (Manual) Abs Neuts (Manual) Differential Comment Toxic Granulation Dohle Bodies Platelet Estimate Platelet Morphology Ovalocytes PT INR APTT Puncture Site Patient Temperature O2 Saturation ABG pH ABG pCO2 ABG pO2 ABG HCO3 ABG O2 Content ABG Base Excess ABG Methemoglobin Maurice Test Hemoglobin Carboxyhemoglobin O2 Delivery Device Vent Setting Inspired O2 Critical Value Sodium Potassium Chloride Carbon Dioxide Anion Gap BUN Creatinine Estimated GFR POC Glucose 130 H Random Glucose Hemoglobin A1c 7.3 H Lactic Acid Calcium Phosphorus Magnesium Total Bilirubin AST ALT Alkaline Phosphatase Ammonia Troponin I C-Reactive Protein 18.00 H Total Protein Albumin Triglycerides 75 Cholesterol 67 L LDL Cholesterol, Calc 20 HDL Cholesterol 32.0 L Cholesterol/HDL Ratio 2.09 Amylase 43 Lipase 140 Free T4 1.06 Free T3 0.97 L 06/03/18 06/03/18 06/03/18 09:24 12:58 16:43 WBC RBC Hgb Hct MCV MCH MCHC RDW Plt Count MPV Prelim Diff (Auto) Neut % (Auto) Lymph % (Auto) [place] % (Auto) Eos % (Auto) Baso % (Auto) Neut # (Auto) Lymph # (Auto) [place] # (Auto) Eos # (Auto) Baso # (Auto) WBC Differential Seg Neuts % (Manual) Band Neuts % (Manual) Lymphocytes % (Manual) Monocytes % (Manual) Abs Neuts (Manual) Differential Comment Toxic Granulation Dohle Bodies Platelet Estimate Platelet Morphology Ovalocytes PT INR APTT Puncture Site Left radial Patient Temperature 98.6 O2 Saturation 96 ABG pH 7.35 L ABG pCO2 36 L ABG pO2 120 ABG HCO3 20 L ABG O2 Content 11.6 L ABG Base Excess -5.0 L ABG Methemoglobin 0.8 Maurice Test Present Hemoglobin 8.4 L Carboxyhemoglobin 0.4 O2 Delivery Device Ventilator Vent Setting [id number] Inspired O2 40 Critical Value No Sodium Potassium Chloride Carbon Dioxide Anion Gap BUN Creatinine Estimated GFR POC Glucose 198 H 160 H Random Glucose Hemoglobin A1c Lactic Acid Calcium Phosphorus Magnesium Total Bilirubin AST ALT Alkaline Phosphatase Ammonia Troponin I C-Reactive Protein Total Protein Albumin Triglycerides Cholesterol LDL Cholesterol, Calc HDL Cholesterol Cholesterol/HDL Ratio Amylase Lipase Free T4 Free T3 06/03/18 06/04/18 06/04/18 20:01 00:14 04:56 WBC RBC Hgb Hct MCV MCH MCHC RDW Plt Count MPV Prelim Diff (Auto) Neut % (Auto) Lymph % (Auto) [place] % (Auto) Eos % (Auto) Baso % (Auto) Neut # (Auto) Lymph # (Auto) [place] # (Auto) Eos # (Auto) Baso # (Auto) WBC Differential Seg Neuts % (Manual) Band Neuts % (Manual) Lymphocytes % (Manual) Monocytes % (Manual) Abs Neuts (Manual) Differential Comment Toxic Granulation Dohle Bodies Platelet Estimate Platelet Morphology Ovalocytes PT INR APTT Puncture Site Patient Temperature O2 Saturation ABG pH ABG pCO2 ABG pO2 ABG HCO3 ABG O2 Content ABG Base Excess ABG Methemoglobin Maurice Test Hemoglobin Carboxyhemoglobin O2 Delivery Device Vent Setting Inspired O2 Critical Value Sodium Potassium Chloride Carbon Dioxide Anion Gap BUN Creatinine Estimated GFR POC Glucose 182 H 256 H 225 H Random Glucose Hemoglobin A1c Lactic Acid Calcium Phosphorus Magnesium Total Bilirubin AST ALT Alkaline Phosphatase Ammonia Troponin I C-Reactive Protein Total Protein Albumin Triglycerides Cholesterol LDL Cholesterol, Calc HDL Cholesterol Cholesterol/HDL Ratio Amylase Lipase Free T4 Free T3 06/04/18 06/04/18 06/04/18 05:15 05:15 05:15 WBC 16.5 H RBC 2.55 L Hgb 8.0 L Hct 24.1 L MCV 94.6 MCH 31.4 MCHC 33.2 RDW 13.7 Plt Count 228 MPV 8.1 Prelim Diff (Auto) Slide review pending Neut % (Auto) 77.9 H Lymph % (Auto) 6.9 L [place] % (Auto) 13.9 H Eos % (Auto) 1.1 Baso % (Auto) 0.2 Neut # (Auto) 12.9 H Lymph # (Auto) 1.1 [place] # (Auto) 2.3 H Eos # (Auto) 0.2 Baso # (Auto) 0.0 WBC Differential Manual diff final Seg Neuts % (Manual) 81 H Band Neuts % (Manual) 5 Lymphocytes % (Manual) 5 L Monocytes % (Manual) 9 H Abs Neuts (Manual) 14.2 H Differential Comment . Toxic Granulation 1+ H Dohle Bodies Present H Platelet Estimate Normal Platelet Morphology Normal Ovalocytes 1+ H PT INR APTT Puncture Site Patient Temperature O2 Saturation ABG pH ABG pCO2 ABG pO2 ABG HCO3 ABG O2 Content ABG Base Excess ABG Methemoglobin Maurice Test Hemoglobin Carboxyhemoglobin O2 Delivery Device Vent Setting Inspired O2 Critical Value Sodium 137 Potassium 4.7 Chloride 104 Carbon Dioxide 21.2 Anion Gap 12 BUN 104 H Creatinine 5.72 H Estimated GFR 10 L POC Glucose Random Glucose 216 H Hemoglobin A1c Lactic Acid Calcium 7.8 L Phosphorus 5.1 H 4.9 Magnesium 1.9 Total Bilirubin AST ALT Alkaline Phosphatase Ammonia Troponin I 0.06 H C-Reactive Protein Total Protein Albumin 1.8 L Triglycerides Cholesterol LDL Cholesterol, Calc HDL Cholesterol Cholesterol/HDL Ratio Amylase Lipase Free T4 Free T3 06/04/18 06/04/18 06/04/18 08:26 11:19 11:47 WBC RBC Hgb Hct MCV MCH MCHC RDW Plt Count MPV Prelim Diff (Auto) Neut % (Auto) Lymph % (Auto) [place] % (Auto) Eos % (Auto) Baso % (Auto) Neut # (Auto) Lymph # (Auto) [place] # (Auto) Eos # (Auto) Baso # (Auto) WBC Differential Seg Neuts % (Manual) Band Neuts % (Manual) Lymphocytes % (Manual) Monocytes % (Manual) Abs Neuts (Manual) Differential Comment Toxic Granulation Dohle Bodies Platelet Estimate Platelet Morphology Ovalocytes PT INR APTT Puncture Site Left radial Patient Temperature 98.6 O2 Saturation 97 ABG pH 7.34 L ABG pCO2 38 ABG pO2 156 H ABG HCO3 20 L ABG O2 Content 11.8 L ABG Base Excess -5.1 L ABG Methemoglobin 0.8 Maurice Test Present Hemoglobin 8.5 L Carboxyhemoglobin 0.3 O2 Delivery Device Ventilator Vent Setting Cpap/[id number]/[id number] Inspired O2 45 Critical Value No Sodium Potassium Chloride Carbon Dioxide Anion Gap BUN Creatinine Estimated GFR POC Glucose 171 H 124 H Random Glucose Hemoglobin A1c Lactic Acid Calcium Phosphorus Magnesium Total Bilirubin AST ALT Alkaline Phosphatase Ammonia Troponin I C-Reactive Protein Total Protein Albumin Triglycerides Cholesterol LDL Cholesterol, Calc HDL Cholesterol Cholesterol/HDL Ratio Amylase Lipase Free T4 Free T3 06/04/18 06/04/18 06/04/18 15:53 17:57 20:00 WBC RBC Hgb Hct MCV MCH MCHC RDW Plt Count MPV Prelim Diff (Auto) Neut % (Auto) Lymph % (Auto) [place] % (Auto) Eos % (Auto) Baso % (Auto) Neut # (Auto) Lymph # (Auto) [place] # (Auto) Eos # (Auto) Baso # (Auto) WBC Differential Seg Neuts % (Manual) Band Neuts % (Manual) Lymphocytes % (Manual) Monocytes % (Manual) Abs Neuts (Manual) Differential Comment Toxic Granulation Dohle Bodies Platelet Estimate Platelet Morphology Ovalocytes PT INR APTT Puncture Site Patient Temperature O2 Saturation ABG pH ABG pCO2 ABG pO2 ABG HCO3 ABG O2 Content ABG Base Excess ABG Methemoglobin Maurice Test Hemoglobin Carboxyhemoglobin O2 Delivery Device Vent Setting Inspired O2 Critical Value Sodium Potassium Chloride Carbon Dioxide Anion Gap BUN Creatinine Estimated GFR POC Glucose 85 105 121 H Random Glucose Hemoglobin A1c Lactic Acid Calcium Phosphorus Magnesium Total Bilirubin AST ALT Alkaline Phosphatase Ammonia Troponin I C-Reactive Protein Total Protein Albumin Triglycerides Cholesterol LDL Cholesterol, Calc HDL Cholesterol Cholesterol/HDL Ratio Amylase Lipase Free T4 Free T3 06/04/18 06/05/18 06/05/18 23:33 04:40 04:40 WBC 15.1 H RBC 2.58 L Hgb 8.1 L Hct 24.5 L MCV 94.8 MCH 31.6 MCHC 33.3 RDW 13.4 Plt Count 214 MPV 8.1 Prelim Diff (Auto) Neut % (Auto) Lymph % (Auto) [place] % (Auto) Eos % (Auto) Baso % (Auto) Neut # (Auto) Lymph # (Auto) [place] # (Auto) Eos # (Auto) Baso # (Auto) WBC Differential Seg Neuts % (Manual) Band Neuts % (Manual) Lymphocytes % (Manual) Monocytes % (Manual) Abs Neuts (Manual) Differential Comment Toxic Granulation Dohle Bodies Platelet Estimate Platelet Morphology Ovalocytes PT INR APTT Puncture Site Patient Temperature O2 Saturation ABG pH ABG pCO2 ABG pO2 ABG HCO3 ABG O2 Content ABG Base Excess ABG Methemoglobin [place] Test Hemoglobin Carboxyhemoglobin O2 Delivery Device Vent Setting Inspired O2 Critical Value Sodium 139 Potassium 4.6 Chloride 105 Carbon Dioxide 21.6 Anion Gap 12 BUN 108 H Creatinine 5.65 H Estimated GFR 10 L POC Glucose 112 H Random Glucose 128 H Hemoglobin A1c Lactic Acid Calcium 8.4 L Phosphorus 5.4 H Magnesium 2.2 Total Bilirubin 0.3 AST 25 ALT 17 Alkaline Phosphatase 93 Ammonia Troponin I C-Reactive Protein Total Protein 4.8 L Albumin 1.8 L Triglycerides Cholesterol LDL Cholesterol, Calc HDL Cholesterol Cholesterol/HDL Ratio Amylase Lipase Free T4 Free T3 06/05/18 06/05/18 06/05/18 09:01 12:07 15:49 WBC RBC Hgb Hct MCV MCH MCHC RDW Plt Count MPV Prelim Diff (Auto) Neut % (Auto) Lymph % (Auto) [place] % (Auto) Eos % (Auto) Baso % (Auto) Neut # (Auto) Lymph # (Auto) [place] # (Auto) Eos # (Auto) Baso # (Auto) WBC Differential Seg Neuts % (Manual) Band Neuts % (Manual) Lymphocytes % (Manual) Monocytes % (Manual) Abs Neuts (Manual) Differential Comment Toxic Granulation Dohle Bodies Platelet Estimate Platelet Morphology Ovalocytes PT INR APTT Puncture Site Patient Temperature O2 Saturation ABG pH ABG pCO2 ABG pO2 ABG HCO3 ABG O2 Content ABG Base Excess ABG Methemoglobin Maurice Test Hemoglobin Carboxyhemoglobin O2 Delivery Device Vent Setting Inspired O2 Critical Value Sodium Potassium Chloride Carbon Dioxide Anion Gap BUN Creatinine Estimated GFR POC Glucose 157 H 158 H 166 H Random Glucose Hemoglobin A1c Lactic Acid Calcium Phosphorus Magnesium Total Bilirubin AST ALT Alkaline Phosphatase Ammonia Troponin I C-Reactive Protein Total Protein Albumin Triglycerides Cholesterol LDL Cholesterol, Calc HDL Cholesterol Cholesterol/HDL Ratio Amylase Lipase Free T4 Free T3 06/05/18 15:50 WBC RBC Hgb Hct MCV MCH MCHC RDW Plt Count MPV Prelim Diff (Auto) Neut % (Auto) Lymph % (Auto) [place] % (Auto) Eos % (Auto) Baso % (Auto) Neut # (Auto) Lymph # (Auto) [place] # (Auto) Eos # (Auto) Baso # (Auto) WBC Differential Seg Neuts % (Manual) Band Neuts % (Manual) Lymphocytes % (Manual) Monocytes % (Manual) Abs Neuts (Manual) Differential Comment Toxic Granulation Dohle Bodies Platelet Estimate Platelet Morphology Ovalocytes PT INR APTT Puncture Site Patient Temperature O2 Saturation ABG pH ABG pCO2 ABG pO2 ABG HCO3 ABG O2 Content ABG Base Excess ABG Methemoglobin Maurice Test Hemoglobin Carboxyhemoglobin O2 Delivery Device Vent Setting Inspired O2 Critical Value Sodium Potassium Chloride Carbon Dioxide Anion Gap BUN Creatinine Estimated GFR POC Glucose 127 H Random Glucose Hemoglobin A1c Lactic Acid Calcium Phosphorus Magnesium Total Bilirubin AST ALT Alkaline Phosphatase Ammonia Troponin I C-Reactive Protein Total Protein Albumin Triglycerides Cholesterol LDL Cholesterol, Calc HDL Cholesterol Cholesterol/HDL Ratio Amylase Lipase Free T4 Free T3 Result Diagrams: 06/05/18 04:40 06/05/18 04:40 Microbiology: Microbiology 05/31/18 07:45 Aerobic Blood Culture - Final Blood - Peripheral No growth in 5 days Anaerobic Blood Culture - Final No growth in 5 days 05/31/18 07:50 Aerobic Blood Culture - Final Blood - Peripheral No growth in 5 days Anaerobic Blood Culture - Final No growth in 5 days Procedures: INTUBATION 05/30/18 Assessment and Plan Pertinent Non-Medical Issues: Psychosocial: Retired, , on Social Security, [place] resident for several months. He had 3 children: One son is , son Jonel has stayed in touch with the patient and lives in [place], and there is a daughter that has been estranged for many years (different mother) Spiritual: The patient is reportedly spiritual but not sabianist, not affiliated with any caodaism or denomination. Son does not want cco visits at this time Legal: The patient lacks capacity for decision-making, and it is not known whether he will regain. His son Jonel De La Paz is the healthcare proxy decision-maker at this time. Ethical issues impacting care: None Important Contacts: Crispin De La Paz, cell: [phone] Friend: Wilber Bhatt [phone] Prognosis: Overall, the patient's prognosis is poor. He has multiorgan system failure at this point in time, and has multiple underlying comorbidities. Code Status: Alternative Code (Intubation only) Plan: * ALTERNATE CODE: Intubation only per her son Jonel 06/01/18 * DECISION-MAKING: The patient lacks capacity for decision-making, and it is not known whether he will regain. His son Jonel De La Paz is the healthcare proxy decision-maker at this time. * GOALS: Discussed with crispin Remy via telephone 06/04/18. He is somewhat encouraged by some improvements, but recognizes the patient is still critically ill and may not survive this. Son does not want reintubation, requests full DNR status. The son is okay with initiating dialysis if needed at this time. * SYMPTOMS: The patient is awakening, and his symptoms are managed with the medications and mechanical ventilation. I have no further medication recommendations at this time. * Palliative Care will continue to follow the patient during this hospitalization. Time Spent Total Floor Time (mins): 28 Face to Face Time (mins): 10 >50% Time in Counseling or Coordination of Care: Yes Attestation Attestation: To help prompt me to consider important information that might be impacting today's encounter and assessment, information from prior notes written by myself or my colleagues may have been "brought forward" into today's note. My signature on this note, however, is an attestation that I personally performed the exam, history, and/or decision-making noted today, and, unless otherwise indicated, the interactions with patient, family, and staff as well as the review of records all occurred today. I also attest that the listed assessment and stated plan reflect my best clinical judgment today based on the combination of historical information, prior notes, and today's exam/ interactions. When time spent is documented, it refers only to time spent today by the signer, or if indicated, combined time spent today by collaborating physician/nurse practitioner.
[2018-06-06] MEDS: Oral Hygiene Kit OROPHARYNG SCH ×4 (00:45→18:16)
[2018-06-06] MEDS: Insulin NovoLOG Aspart Correctional Sugar Inj SQ SCH ×6 (00:45→22:18)
[2018-06-06] MEDS: Chlorhexidine Gluconate 2% 1 Pack (2 Cloths) TOPICAL SCH (04:40)
--- NOTE | 2018-06-06 04:58 | XR ---
EXAM DATE: 06/06/2018 4:16 AM EDT AGE/SEX: 72 years / Male INDICATIONS: Shortness of breath. CLINICAL DATA: This is the patient's subsequent encounter. Patient reports that signs and symptoms h ave been present for 4 - 6 days and indicates a pain score of Nonresponsive. MEDICAL/SURGICAL HISTORY: . Chronic obstructive pulmonary disease. Hypertension. Congestive he art failure. Diabetes. A-fib. CABG. COMPARISON: [facility] – [place] 1V SINGLE AP, 06/05/2018. . FINDINGS: A single AP view of the chest demonstrates left basilar density. Right lung clear. Evidence of previo us CABG. Left subclavian central line stable position. The cardiomediastinal contours are unremarkab le. Osseous structures are intact. CONCLUSION: Left basilar density likely atelectasis. Electronically signed by: Boom Ibarra MD 06/06/2018 4:57 AM EDT
[2018-06-06 05:05] LABS: Hematocrit 23.7 % (39.0-51.0); Hemoglobin 7.6 gm/dL (13.0-17.0); Mean Corpuscular Hemoglobin 30.7 pg (27.0-34.0); Mean Corpuscular Volume 95.9 fL (80.0-100.0); Mean Platelet Volume 8.1 fL (7.0-11.0); Platelet Count 235 th/mm3 (150-450); Red Blood Count 2.47 mil/mm3 (4.50-5.90); Red Cell Distribution Width 13.7 % (11.6-17.2); White Blood Count 14.7 th/mm3 (4.0-11.0)
[2018-06-06] MEDS: Levothyroxine 75 MCG Tablet PO SCH (05:41)
[2018-06-06] MEDS: Levothyroxine 100 MCG Tablet PO SCH (05:41)
[2018-06-06 05:57] LABS: Alanine Aminotransferase 14 U/L (12-78); Albumin 1.8 g/dL (3.4-5.0); Alkaline Phosphatase 94 U/L (45-117); Anion Gap 12 meq/L (5-15); Aspartate Aminotransferase 16 U/L (15-37); Blood Urea Nitrogen 124 mg/dL (7-18); Carbon Dioxide 20.6 meq/L (21.0-32.0); Chloride 105 meq/L (98-107); Digoxin 1.2 ng/mL (0.8-2.0); Glomerular Filtration Rate 9 mL/min (>89); Glucose,Random 164 mg/dL (74-106); Potassium 4.8 meq/L (3.5-5.1); Sodium 138 meq/L (136-145)
[2018-06-06] MEDS ORDERED: Metoprolol Inj 5 MG/5 ML Vial IV.PUSH PRN (07:52)
--- NOTE | 2018-06-06 08:05 | P.PNCC ---
Subjective Subjective Remarks/Hospital Course: 05/31: This is a 72-year-old male. He is a resident of [facility] and [facility]. Date of admission 05/30/2018. Originally admitted to hospitalist service and now under our service 05/31/2018. Past medical history includes fibromyalgia, dementia, history of CVA, obstructive sleep apnea, atrial fibrillation/chronic, COPD, chronic kidney disease stage IV, BPH, diabetes mellitus, elevated BMI, atherosclerotic vascular disease, nephrolithiasis, liver cirrhosis, essential hypertension, hyperlipidemia, gout, history of right ice C occlusion, hypothyroidism, dysphagia, constipation, diplopia, CABG 2, TURP, cardiac stent, right percutaneous lithotripsy, liver biopsy and bilateral hand surgery. Patient is also on chronic benzodiazepines. Patient presented to [facility] on 05/30/2018 with history of being found on the floor between his bed in the window. His head was against the dresser. He was able to tell if he hit his head. There is a large amount about was in the floor but not bleeding from the head. He has excoriations on his back and his left knee and right wrist. CT brain at this facility was negative. Patient is on apixaban and aspirin at home. Patient was noted to have a urinary tract infection was started on cefepime and gentamicin by ED physician. Throughout the night, patient became more confused and is found to be obtunded earlier this morning was intubated and centralized placed due to hypotension. He is currently on norepinephrine drip at 12 mcg/min. Troponin was 0.05. Patient had a leukocytosis, normocytic anemia, creatinine 6.6/ baseline around 2.5 and TSH is 0.356. We are asked to admit the patient at this time. He is currently intubated and arousable in room C 25 in ED. No family available. 06/01: Remains sedated, orally intubated on mechanical ventilation. Had generalized tonic-clonic movements which were questionable last night for which he was given Ativan 4 mg IV and loaded with Cerebyx. EEG this morning pending. Neurology consult noted. Head CT negative for bleed. Negligible urine output. Worsening BUN/creatinine. On vasopressin low-dose currently, off all other pressors. 06/02: Remains sedated, arousable, orally intubated on mechanical ventilation. Not following commands unenlightening sedation. 06/03: Arouses off sedation, not following commands. Orally intubated on mechanical ventilation. On CPAP trials. 06/04: More awake today tracking. Intermittently follows commands on upper and lower extremities. Remains on Sujit-Synephrine and vasopressin. Also change amiodarone to p.o. BUN climbing 104 today, creatinine stable at 5.7. May need to start hemodialysis will discuss with nephrology 06/05: Patient was extubated yesterday, breathing well respiratory graf tolerating. Remains confused but follows commands continues to have some garbled speech. Creatinine is 5.65 BUN 108 today. Still making urine nephrology wants to hold off HD another day and monitor. UO 1.1 L in 24 hours 06/06: Patient is more critical today. He is more lethargic with worsening uremia BUN 124 creatinine 6.5. If family agreeable with hemodialysis I will place a Vas-Cath today. Give 1 dose of digoxin, start Coreg 6.25 mg twice daily , and restart p.o. amiodarone to wean off amiodarone infusion. Objective Vital Signs / I&O: Vital Signs 06/05/18 08:00 06/05/18 08:48 06/05/18 10:00 Temperature 97.9 F Pulse Rate 85 86 87 Respiratory Rate 14 16 Blood Pressure 141/58 H Pulse Oximetry 95 97 06/05/18 12:00 06/05/18 12:03 06/05/18 14:00 Temperature 99.2 F Pulse Rate 87 87 88 Respiratory Rate 15 12 Blood Pressure 108/72 Pulse Oximetry 98 96 06/05/18 16:00 06/05/18 16:20 06/05/18 18:00 Temperature 97.9 F Pulse Rate 90 93 H 92 H Respiratory Rate 12 14 Blood Pressure 114/53 L Pulse Oximetry 98 06/05/18 20:00 06/05/18 20:32 06/05/18 22:00 Temperature 98.6 F Pulse Rate 94 H 93 H 93 H Respiratory Rate 18 16 Blood Pressure 143/56 H Pulse Oximetry 98 06/05/18 23:58 06/06/18 00:00 06/06/18 02:00 Temperature 98.1 F Pulse Rate 95 H 94 H 97 H Respiratory Rate 16 15 Blood Pressure 139/60 Pulse Oximetry 06/06/18 02:58 06/06/18 03:55 06/06/18 04:00 Temperature 98.2 F Pulse Rate 91 H 90 Respiratory Rate 14 Blood Pressure 124/56 L Pulse Oximetry 06/06/18 06:00 Temperature Pulse Rate 92 H Respiratory Rate Blood Pressure Pulse Oximetry Intake & Output 06/05/18 06/06/18 06/06/18 18:59 06:59 18:59 Intake Total 250 / 250 450 / 450 Output Total 475 / 475 450 / 450 Balance -225 / -225 0 / 0 Weight 122.9 kg Intake: IV 250 / 250 450 / 450 Cordarone Inj 450 MG In D5W Inj 250 / 250 250 / 250 241 ML @ 1 MG/MIN 33.33 mls/hr IV.CONT TITRATE PRN Rx#: [id number] Ofirmev Inj 1,000 mg In 100 ml 100 / 100 @ 400 mls/hr IV.SIG Q6H PRN Rx# :[id number] Rocephin Inj 2,000 MG In NS Inj 100 / 100 100 ML @ 200 mls/hr IV.SIG Q24H WILFREDO Rx#:[id number] Output: Stool 0 / 0 Urine Amount (Catheter) 475 / 475 450 / 450 Coude 475 / 475 450 / 450 Other: Date of Last Bowel Movement 06/04/18 06/05/18 Weight On Admission 122.9 kg Result Diagrams: 06/06/18 05:00 06/06/18 05:00 Objective Remarks: GENERAL: 72-year-old male currently on NC, somnolent lethargic SKIN: Warm and dry. Excoriations on back, left knee anteriorly and right wrist , some swelling around the right wrist HEAD: Atraumatic. Normocephalic. EYES: Pupils equal and round bilaterally. No scleral icterus. No injection or drainage. ENT: No nasal bleeding or discharge. NECK: Trachea midline. No JVD. CARDIOVASCULAR: S1-S2 , no gallop or murmur. Chronic A. fib on amiodarone GTT RESPIRATORY: Air entry diminished bilaterally with few inspiratory crackles GASTROINTESTINAL: Abdomen soft, non-tender, obese. Hypoactive bowel sounds. MUSCULOSKELETAL: Extremities with pitting bilateral lower extremity edema. Right wrist appears tender slightly swollen NEUROLOGICAL: Patient is more lethargic today hard to wake up, garbled speech make assessing orientation difficult. Assessment and Plan - Assessment and Plan Plan: Neuro/Psych: Acute, now worsening encephalopathy likely toxic metabolic secondary to severe sepsis, possible uremic encephalopathy CVA Dementia disorder NOS Chronic benzodiazepine use History of diplopia Remains off all sedation. Goal of RASS -0 Worsening encephalopathy could be due to increasing BUN. CT brain on admission revealed no acute intracranial findings Continue pregabalin 75 mg twice daily for peripheral neuropathy. Holding alprazolam 0.25 mg 3 times daily for anxiety. Questionable seizure, loaded with Cerebyx. EEG moderate encephalopathy no seizures. Neuro following. Repeat Head CT negative for bleed. 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 fib with RVR Start amiodarone 200 mg twice daily, Coreg 6.25 mg twice daily, and IV digoxin 0.25 milligrams 1 and wean to DC amiodarone GTT 2D echo 07/09 revealed EF of 40-45%. LV dilatation. PAP 31 mmHg. Basilar inferolateral and inferior lateral hypokinesis. Repeat echocardiogram: Moderate concentric left ventricular hypertrophy. LVEF 60-65%. Estimated PASP is 63.3 mmHg. Sjhflmmy-ej-wdvzal pulmonary hypertension present (range 60-70 mmHg). Heart catheterization 09/08 revealed patent LAURA to LAD and SVG to RCA. 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 Continue atorvastatin 40 mg daily for dyslipidemia Apixaban 2.5 mg twice daily on hold for HD catheter placement Holding diltiazem 120 mg daily, lisinopril 40 mg daily and metoprolol tartrate 100 mg twice daily/home medications Continue Bumex per nephrology Resp: Acute respiratory failure-extubated 06/04/18 History of WERNER History of COPD Prior history of tobaccoism Extubated 06/04 good oxygen saturation but increasing somnolence is concerning. Patient is DNR, DNI Albuterol/ipratropium aerosols every 4 hours with albuterol aerosols every 2 hours as needed for dyspnea Holding Tiotropium 80 mg daily while on ipratropium GI: Gastroesophageal reflux disease history of gastric ulcer Constipation Hypoalbuminemia History of liver biopsy with diagnosis of cirrhosis? NPO per speech eval. Lansoprazole/sucralfate for GI prophylaxis. Polyethylene glycol 17 g twice daily for bowel regimen Place NG tube and initiate tube feeding Renal: Acute kidney injury in the setting of chronic kidney disease stage IV BPH status post TURP Abdomen/pelvis CT with nonobstructing right renal stone Nephrology following. Continue Bumex. BUN 124 today, creatinine stable 6.5. Start HD today Monitor urine output with accurate I's and O's. History of nephrolithiasis status post right percutaneous lithotripsy 2004 Maintain [place] catheter for accurate I's and O's Endo: Diabetes mellitus 1.5 treat as 1.0 Hypothyroidism History of gout Holding insulin glargine 25 units twice daily Sliding-scale insulin with aspart insulin/high regimen with Accu-Cheks every 4 hours to maintain euglycemia Decreased levothyroxine from 200-175 mg daily. TSH was 0.356. Heme: Leukocytosis Normocytic anemia/anemia of chronic kidney disease Chronic apixaban use 2.5 mg twice daily Apixaban 2.5 mg twice daily. Holding for invasive procedures Monitor CBC daily. Follow trends. No indication for transfusion of blood products at this time. Type and screen ID: Proteus UTI History of Enterococcus faecalis bacteremia History of staph saprophyticus urinary tract infection Continue ceftriaxone for Proteus UTI Infectious disease following. Received cefepime and gentamicin in the ED. CT abdomen/pelvis with nonobstructing right renal stone Holding doxycycline 100 mg twice daily/home medication Resume clotrimazole 1% to affected areas twice daily. Blood cultures 2 05/31 negative, Urine cultures with Proteus Influenza a and B negative. Legionella and pneumococcal urinary antigens negative Access -Left subclavian CVL 05/31) placed by ED physician Prophylaxis -GI -lansoprazole/sucralfate -DVT -SCD/apixaban will provide DVT prophylaxis. Holding apixaban for HD catheter insertion Palliative care following. DNR now Critically ill now with worsening encephalopathy BUN has increased 124, uremia contributing to encephalopathy. Will contact family for emergency hemodialysis catheter placement and initiating dialysis. CCT 35 MIN excluding procedure
[2018-06-06] MEDS ORDERED: Digoxin Inj 500 MCG/2 ML Ampul IV.PUSH ONE (08:45)
[2018-06-06] MEDS ORDERED: Sod Chloride 0.9% Inj 1,000 ML OTHER PRN ×2 (09:12)
[2018-06-06] MEDS ORDERED: Acetaminophen 325 MG Tablet PO PRN (09:12)
[2018-06-06] MEDS ORDERED: Heparin 10,000 UNITS/10 ML Vial (for IV use) OTHER PRN (09:12)
[2018-06-06] MEDS ORDERED: Sod Chloride 0.9% Inj 1,000 ML IV.CONT PRN (09:12)
[2018-06-06] MEDS ORDERED: Albumin Human 25% Inj 100 ML IV.SIG PRN (09:12)
[2018-06-06] MEDS ORDERED: Gelatin 12 MM/7 MM Topical Foam TOPICAL PRN (09:12)
[2018-06-06] MEDS: Ferrrous Sulfate 300 MG/5 ML UDC PO SCH (09:57)
[2018-06-06] MEDS: Carvedilol 6.25 MG Tablet PO SCH ×2 (09:58→22:40)
[2018-06-06] MEDS: Amiodarone 200 MG Tablet PO SCH ×2 (10:00→22:40)
[2018-06-06] MEDS: Sucralfate 1 GM Tablet PO SCH ×3 (10:00→17:00)
[2018-06-06] MEDS: Ascorbic Acid 500 MG Tablet PO SCH (10:00)
[2018-06-06] MEDS: Pregabalin 75 MG Capsule PO SCH ×2 (10:01→22:40)
[2018-06-06] MEDS: Doxazosin 1 MG Tablet PO SCH (10:01)
--- NOTE | 2018-06-06 10:42 | XR ---
EXAM DATE: 06/06/2018 10:35 AM EDT AGE/SEX: 72 years / Male INDICATIONS: Nasogastric tube placement. CLINICAL DATA: This is the patient's initial encounter. Patient reports that signs and symptoms have been present for 1 week and indicates a pain score of Nonresponsive. MEDICAL/SURGICAL HISTORY: Chronic obstructive pulmonary disease. Hypertension. Congestive hea rt failure. diabetes, a-fib CABG. COMPARISON: No prior exams available for comparison. FINDINGS: 2 portable supine views of the abdomen in the frontal projection showed the tip of the nasogastric t ube in the region of the antrum of the stomach. No dilated loops of bowel are observed within the vis ualized portions of the abdomen. Lung bases are clear. CONCLUSION: Tip of NG tube in the region of the antrum of the stomach. Electronically signed by: Orlando Hunltey MD 06/06/2018 10:41 AM EDT
[2018-06-06] MEDS: Heparin 10,000 UNITS/10 ML Vial (for IV use) OTHER PRN ×2 (11:26→18:30)
--- NOTE | 2018-06-06 11:39 | XR ---
EXAM DATE: 06/06/2018 11:36 AM EDT AGE/SEX: 72 years / Male INDICATIONS: Right wrist pain. CLINICAL DATA: This is the patient's initial encounter. Patient reports that signs and symptoms have been present for 1 day and indicates a pain score of Nonresponsive. MEDICAL/SURGICAL HISTORY: None. None. COMPARISON: No prior exams available for comparison. FINDINGS: Osseous structures are intact without evidence for acute bony fracture. Carpal bones appear intact. D egenerative changes noted about the proximal carpal row and first carpal metacarpal joint. Diffuse ra dial and ulnar artery calcifications. No radiopaque foreign bodies. CONCLUSION: 1. No acute fracture or dislocation. 2. Degenerative osteoarthritis, as above. Electronically signed by: Arcadio Chaves MD 06/06/2018 11:38 AM EDT
--- NOTE | 2018-06-06 11:41 | XR ---
EXAM DATE: 06/06/2018 11:37 AM EDT AGE/SEX: 72 years / Male INDICATIONS: Vas cath placement. CLINICAL DATA: This is the patient's initial encounter. Patient reports that signs and symptoms have been present for 1 day and indicates a pain score of Nonresponsive. MEDICAL/SURGICAL HISTORY: Chronic obstructive pulmonary disease. Hypertension. Congestive hea rt failure. Diabetes. AFIB. CABG. COMPARISON: [facility], CHEST 1V SINGLE AP, 06/06/2018. . FINDINGS: Stable left subclavian central line with tip just in the SVC. Interval placement of NGT coursing beyo nd the GE junction with tip omitted from the image. Interval placement of right IJ dialysis catheter with tip at the atriocaval junction. Persistent hazy opacity in the left lower lung zone with mild in terstitial prominence. Cardiomediastinal contours are stable. Remainder of the exam is unchanged. CONCLUSION: 1. Right IJ dialysis catheter in good position without pneumothorax. 2. NGT beyond the GE junction. 3. Persistent left lower lobe patchy airspace disease, likely atelectasis. 4. Mild positive fluid balance. Electronically signed by: Arcadio Chaves MD 06/06/2018 11:40 AM EDT
--- NOTE | 2018-06-06 12:07 | P.PCN ---
Date of procedure: 06/06/18 Pre-op diagnosis: Renal failure Post-op diagnosis: same Procedure: US guided right IJ hemodialysis catheter placement. Informed consent was obtained and central line checklist completed, timeout completed. I wore a surgical cap, mask with protective eyewear, full gown and sterile gloves throughout the procedure. Right IJ region was prepped using chlorhexidine scrub and draped in sterile fashion. The right IJ was identified using the ultrasound. Anesthesia was achieved over the vein using 1% lidocaine. The introducer needle was inserted into the right internal jugular vein under direct ultrasound visualization. Venous blood was withdrawn. The syringe was removed and a guidewire was advanced into the introducer needle. A small incision was made at the skin surface with a scalpel and the introducer needle was exchanged for a dilator over the guidewire. After appropriate dilation was obtained, the dilator was exchanged over the wire for a double lumen, 14F, 20 CM hemodialysis catheter. The wire was removed and the catheter was sutured in place at 17 cm. A sterile central line dressing was placed over the catheter at the insertion site. The patient tolerated the procedure without any hemodynamic compromise. At time of procedure completion, all ports aspirated and flushed properly. Post-procedure chest x-ray ordered Anesthesia: local Surgeon: Shukri Lock Estimated blood loss (mL): 3 Pathology: none sent Condition: critical Disposition: ICU
--- NOTE | 2018-06-06 13:07 | P.PNID ---
Subjective Remarks: Patient is currently receiving breathing treatments. Appears comfortable. Awakens easily. He is drowsy. Underwent placement of hemodialysis catheter this morning. Following commands. This is planned. Afebrile. HISTORY OF PRESENT ILLNESS: This is a 72-year-old white male who was brought to the emergency department from [facility] with altered mental status. He was intubated in the emergency department and is currently on the ventilator. He had a decreased blood pressure, as well as increased respiratory rate and was bradycardic and hypothermic with temperature of 94.6 degrees. He had marked decreased urine output and is in acute renal failure. ID consulted for severe sepsis, history of Escherichia faecalis bacteremia, Staphylococcus urinary tract infection. Assist with antibiotic management. Antibiotics: Ceftriaxone Past Medical History: PAST MEDICAL HISTORY: Dementia, diabetes mellitus, hypertension, hypothyroidism, hyperlipidemia, fibromyalgia, benign prostatic hypertrophy, chronic kidney disease stage IV, chronic obstructive pulmonary disease, coronary artery disease, nephrolithiasis, non-ST elevated myocardial infarction, post-traumatic stress disorder, history of nephrostomy, history of coronary stents, history of TURP. Allergies/Adverse Reactions: Allergies ciprofloxacin Allergy (Severe, Verified 05/30/18 23:15) Itching diatrizoate meglumine Allergy (Severe, Verified 05/30/18 23:15) Itching gadobenic acid Allergy (Severe, Verified 05/30/18 23:15) Itching gadodiamide Allergy (Severe, Verified 05/30/18 23:15) Itching gadoteridol Allergy (Severe, Verified 05/30/18 23:15) Itching iodixanol Allergy (Severe, Verified 05/30/18 23:15) Itching iohexol Allergy (Severe, Verified 05/30/18 23:15) Itching levofloxacin Allergy (Severe, Verified 05/30/18 23:15) Itching celecoxib [From Celebrex] Allergy (Unknown, Verified 05/30/18 23:15) Itching ezetimibe [From Zetia] Allergy (Unknown, Verified 05/30/18 23:15) Itching prochlorperazine [From Compazine] Allergy (Unknown, Verified 05/10/18 20:51) Itching red dye Allergy (Unknown, Verified 05/10/18 20:51) Itching Objective Vital Signs 06/05/18 14:00 06/05/18 16:00 06/05/18 16:20 Temperature 97.9 F Pulse Rate 88 90 93 H Respiratory Rate 12 14 Blood Pressure 114/53 L Pulse Oximetry 98 06/05/18 18:00 06/05/18 20:00 06/05/18 20:32 Temperature 98.6 F Pulse Rate 92 H 94 H 93 H Respiratory Rate 18 16 Blood Pressure 143/56 H Pulse Oximetry 98 06/05/18 22:00 06/05/18 23:58 06/06/18 00:00 Temperature 98.1 F Pulse Rate 93 H 95 H 94 H Respiratory Rate 16 15 Blood Pressure 139/60 Pulse Oximetry 06/06/18 02:00 06/06/18 02:58 06/06/18 03:55 Temperature Pulse Rate 97 H 91 H Respiratory Rate 15 14 Blood Pressure Pulse Oximetry 06/06/18 04:00 06/06/18 06:00 06/06/18 08:00 Temperature 98.2 F 97.9 F Pulse Rate 90 92 H 87 Respiratory Rate 14 17 Blood Pressure 124/56 L 130/60 Pulse Oximetry 06/06/18 10:00 06/06/18 11:59 06/06/18 12:00 Temperature Pulse Rate 96 H 84 92 H Respiratory Rate 15 Blood Pressure Pulse Oximetry 96 Intake & Output 06/05/18 06/06/18 06/06/18 18:59 06:59 18:59 Intake Total 250 / 250 450 / 450 Output Total 475 / 475 450 / 450 Balance -225 / -225 0 / 0 Weight 122.9 kg Intake: IV 250 / 250 450 / 450 Cordarone Inj 450 MG In D5W Inj 250 / 250 250 / 250 241 ML @ 1 MG/MIN 33.33 mls/hr IV.CONT TITRATE PRN Rx#: [id number] Ofirmev Inj 1,000 mg In 100 ml 100 / 100 @ 400 mls/hr IV.SIG Q6H PRN Rx# :[id number] Rocephin Inj 2,000 MG In NS Inj 100 / 100 100 ML @ 200 mls/hr IV.SIG Q24H WILFREDO Rx#:[id number] Output: Stool 0 / 0 Urine Amount (Catheter) 475 / 475 450 / 450 Coude 475 / 475 450 / 450 Other: Date of Last Bowel Movement 08/13/18 08/14/18 08/14/18 Weight On Admission 122.9 kg 05/31/18 07:45 Blood - Peripheral Aerobic Blood Culture - Final No growth in 5 days 05/31/18 07:45 Blood - Peripheral Anaerobic Blood Culture - Final No growth in 5 days 05/31/18 07:50 Blood - Peripheral Aerobic Blood Culture - Final No growth in 5 days 05/31/18 07:50 Blood - Peripheral Anaerobic Blood Culture - Final No growth in 5 days Lab - Hematology Results 06/05/18 06/06/18 04:40 05:00 WBC 15.1 H 14.7 H RBC 2.58 L 2.47 L Hgb 8.1 L 7.6 L Hct 24.5 L 23.7 L MCV 94.8 95.9 MCH 31.6 30.7 MCHC 33.3 32.0 RDW 13.4 13.7 Plt Count 214 235 MPV 8.1 8.1 Lab - Chemistry Results 06/04/18 06/04/18 06/04/18 15:53 17:57 20:00 Sodium Potassium Chloride Carbon Dioxide Anion Gap BUN Creatinine Estimated GFR POC Glucose 85 105 121 H Random Glucose Calcium Phosphorus Magnesium Total Bilirubin AST ALT Alkaline Phosphatase Total Protein Albumin 06/04/18 06/05/18 06/05/18 23:33 04:40 09:01 Sodium 139 Potassium 4.6 Chloride 105 Carbon Dioxide 21.6 Anion Gap 12 BUN 108 H Creatinine 5.65 H Estimated GFR 10 L POC Glucose 112 H 157 H Random Glucose 128 H Calcium 8.4 L Phosphorus 5.4 H Magnesium 2.2 Total Bilirubin 0.3 AST 25 ALT 17 Alkaline Phosphatase 93 Total Protein 4.8 L Albumin 1.8 L 06/05/18 06/05/18 06/05/18 12:07 15:49 15:50 Sodium Potassium Chloride Carbon Dioxide Anion Gap BUN Creatinine Estimated GFR POC Glucose 158 H 166 H 127 H Random Glucose Calcium Phosphorus Magnesium Total Bilirubin AST ALT Alkaline Phosphatase Total Protein Albumin 06/05/18 06/06/18 06/06/18 20:03 00:40 05:00 Sodium 138 Potassium 4.8 Chloride 105 Carbon Dioxide 20.6 L Anion Gap 12 BUN 124 H Creatinine 6.15 H Estimated GFR 9 L POC Glucose 134 H 145 H Random Glucose 164 H Calcium 8.0 L Phosphorus Magnesium Total Bilirubin 0.3 AST 16 ALT 14 Alkaline Phosphatase 94 Total Protein 5.0 L Albumin 1.8 L Imaging: ITS Impressions Abdomen/Pelvis CT 05/31/18 00:00 CONCLUSION: 1. No acute abnormality. 2. 7 mm nonobstructing right renal stone. 3. Small bilateral pleural effusions with bibasilar consolidations. This is more pronounced than typical passive atelectasis. Infectious etiology versus pulmonary edema. Head CT 05/31/18 00:00 CONCLUSION: Stable evaluation the brain without evidence of acute infarct, hemorrhage, mass or edema. . Head MRI 06/01/18 00:00 CONCLUSION: 1. No evidence of acute infarct, hemorrhage, mass or edema. 2. Mild cerebral white matter disease characteristic of microvascular ischemic changes. 3. No significant change compared to previous study in 2010 Elbow X-Ray 06/03/18 00:00 CONCLUSION: Unremarkable exam. Shoulder X-Ray 06/03/18 00:00 CONCLUSION: Unremarkable right shoulder. Abdomen X-Ray 06/06/18 09:53 CONCLUSION: Tip of NG tube in the region of the antrum of the stomach. Chest X-Ray 06/06/18 11:03 CONCLUSION: 1. Right IJ dialysis catheter in good position without pneumothorax. 2. NGT beyond the GE junction. 3. Persistent left lower lobe patchy airspace disease, likely atelectasis. 4. Mild positive fluid balance. Wrist X-Ray 06/06/18 11:03 CONCLUSION: 1. No acute fracture or dislocation. 2. Degenerative osteoarthritis, as above. Physical Exam: Physical Exam: GENERAL: Easily awakened. No distress. HEENT: The head is atraumatic. No icterus. Pupils equally reactive. Oropharynx is dry. NECK: No adenopathy or swelling. LUNGS: Decreased breath sounds. HEART: Irregular rate and rhythm. No murmurs, rubs or gallops. ABDOMEN: Obese, soft, hyperactive bowel sounds. No masses palpable. EXTREMITIES: 3+ edema at UE's. trace edema of the lower extremities. No clubbing or cyanosis. SKIN: No rash. NEUROLOGIC: Awake and moves all extremities. No gross focal finding. Assessment and Plan - Plan IMPRESSION: 1. Septic shock, probably secondary to urinary infection. 2. Urinary tract infection. Proteus. 3. Acute respiratory failure. 4. Acute kidney disease. 5. Bilateral lung infiltrates, which could be congestive heart failure versus bilateral pneumonia. 6. Leukocytosis. Probably secondary to infection. RECOMMENDATIONS: 1. Continue ceftriaxone. 2. Monitor white blood cell count. 3. Follow clinical status.
--- NOTE | 2018-06-06 13:24 | P.PNNP ---
Subjective Interval history: Has NG tube as he failed swallow study. Renal function is worse. He states he feels terrible. Physical Exam Vital signs: Vital Signs 06/05/18 14:00 06/05/18 16:00 06/05/18 16:20 Temperature 97.9 F Pulse Rate 88 90 93 H Respiratory Rate 12 14 Blood Pressure 114/53 L Pulse Oximetry 98 06/05/18 18:00 06/05/18 20:00 06/05/18 20:32 Temperature 98.6 F Pulse Rate 92 H 94 H 93 H Respiratory Rate 18 16 Blood Pressure 143/56 H Pulse Oximetry 98 06/05/18 22:00 06/05/18 23:58 06/06/18 00:00 Temperature 98.1 F Pulse Rate 93 H 95 H 94 H Respiratory Rate 16 15 Blood Pressure 139/60 Pulse Oximetry 06/06/18 02:00 06/06/18 02:58 06/06/18 03:55 Temperature Pulse Rate 97 H 91 H Respiratory Rate 15 14 Blood Pressure Pulse Oximetry 06/06/18 04:00 06/06/18 06:00 06/06/18 08:00 Temperature 98.2 F 97.9 F Pulse Rate 90 92 H 87 Respiratory Rate 14 17 Blood Pressure 124/56 L 130/60 Pulse Oximetry 06/06/18 10:00 06/06/18 11:59 06/06/18 12:00 Temperature Pulse Rate 96 H 84 92 H Respiratory Rate 15 Blood Pressure Pulse Oximetry 96 Intake & Output 06/05/18 06/06/18 06/06/18 18:59 06:59 18:59 Intake Total 250 / 250 450 / 450 Output Total 475 / 475 450 / 450 Balance -225 / -225 0 / 0 Weight 122.9 kg Intake: IV 250 / 250 450 / 450 Cordarone Inj 450 MG In D5W Inj 250 / 250 250 / 250 241 ML @ 1 MG/MIN 33.33 mls/hr IV.CONT TITRATE PRN Rx#: [id number] Ofirmev Inj 1,000 mg In 100 ml 100 / 100 @ 400 mls/hr IV.SIG Q6H PRN Rx# :[id number] Rocephin Inj 2,000 MG In NS Inj 100 / 100 100 ML @ 200 mls/hr IV.SIG Q24H WILFREDO Rx#:[id number] Output: Stool 0 / 0 Urine Amount (Catheter) 475 / 475 450 / 450 Coude 475 / 475 450 / 450 Other: Date of Last Bowel Movement 06/04/18 06/05/18 06/05/18 Weight On Admission 122.9 kg - Constitutional no acute distress, chronically ill appearing - Routine HEENT Exam Head: Present: normocephalic ENT: Present: mucous membranes dry Comments: NG tube - Routine Neck Exam Present: supple, full ROM - Routine Respiratory Exam Present: crackles, diminished air movement. Absent: accessory muscle use - Routine Cardiovascular Exam Present: RRR, S1, S2 - Routine Abdominal Exam Present: soft, normoactive bowel sounds - Routine Extremities Exam Present: edema, pulses intact, calf tenderness, tenderness - Routine Skin Exam Present: intact, dry, warm - Routine Neurological Exam Present: CN II-XII intact, moving all extremities - Detailed Neurological Exam: Coma Scale Eye Opening: To sound Verbal Response: Words Motor Response: Localizing [place] Coma Scale Total: 11 - Routine Psychiatric Exam Present: unable to assess - Urinary Catheter Management Coude Cath placed during this visit: yes Reason for continuing: Hourly intake/output Insertion date: 05/31/18 Insertion time: 23:00 Assessment and Plan - Assessment (1) Acute on chronic kidney failure Code(s): N17.9 - Acute kidney failure, unspecified; N18.9 - Chronic kidney disease, unspecified Status: Acute Qualifiers: Acute renal failure type: unspecified Chronic kidney disease stage: stage 3 (moderate) Qualified Code(s): N17.9 - Acute kidney failure, unspecified; N18.3 - Chronic kidney disease, stage 3 (moderate) Plan: His baseline is 2.5 (CKD 4). He may have underlying diabetic nephropathy. Follows with Dr. Phillip in [place]. Most likely suffered ATN due to renal hypoperfusion secondary to hypotension; possibly infection He needs to begin dialysis. D/W Benigno Diallo to be placed HD today and tomorrow (), then TTS as needed Obtain daily labs Await renal recovery Hold Bumex Avoid nephrotoxic agents Avoid IVF. (2) Acute alteration in mental status Code(s): R41.82 - Altered mental status, unspecified Status: Acute Plan: May have been due to uremia, infection. Monitor post extubation (3) Septic shock Code(s): A41.9 - Sepsis, unspecified organism; R65.21 - Severe sepsis with septic shock Status: Acute Plan: Antibiotics as ordered, continue supportive care He is being treated for UTI. Also has pneumonia. (4) Diabetes mellitus Code(s): E11.9 - Type 2 diabetes mellitus without complications Status: Acute Plan: Maintain blood glucose 140-180 mg/dL while admitted.
[2018-06-06] MEDS: Polyethylene Glycol 3350 17 GM Packet NG/OG SCH ×2 (18:14→22:41)
[2018-06-06] MEDS: Hypromellose 0.3% Opth Gel 10 GM Bottle EACH EYE SCH ×2 (18:14→22:41)
[2018-06-06] MEDS: Clotrimazole 1% Cream 15 GM Tube TOPICAL SCH ×2 (18:14→22:41)
[2018-06-06 19:37] LABS: Hepatitis A IgM Antibody Nonreactive (Nonreactive); Hepatitits B Surface Antigen Nonreactive (Nonreactive)
[2018-06-07] MEDS: Oral Hygiene Kit OROPHARYNG SCH ×4 (00:12→18:42)
[2018-06-07] MEDS: Insulin NovoLOG Aspart Correctional Sugar Inj SQ SCH ×6 (00:12→21:38)
[2018-06-07] MEDS: Levothyroxine 100 MCG Tablet PO SCH (05:03)
[2018-06-07] MEDS: Levothyroxine 75 MCG Tablet PO SCH (05:03)
--- NOTE | 2018-06-07 05:06 | XR ---
EXAM DATE: 06/07/2018 4:06 AM EDT AGE/SEX: 72 years / Male INDICATIONS: Shortness of breath CLINICAL DATA: This is the patient's subsequent encounter. Patient reports that signs and symptoms h ave been present for 1 week and indicates a pain score of Nonresponsive. MEDICAL/SURGICAL HISTORY: . Chronic obstructive pulmonary disease. Hypertension. Congestive hea rt failure. AFIB. Diabetes. CABG. COMPARISON: [facility], CHEST 1V SINGLE AP, 06/06/2018. . FINDINGS: The patient is status post sternotomy. There is an NG tube in place with the tip directed into the st omach. There are bilateral internal jugular venous lines in place. The heart size is within normal li mits. Lungs appear relatively clear. CONCLUSION: Tubes and lines in good position. Electronically signed by: Ashvin Valdez MD 06/07/2018 5:04 AM EDT
[2018-06-07] MEDS: Heparin 10,000 UNITS/10 ML Vial (for IV use) OTHER PRN ×2 (08:26→20:58)
--- NOTE | 2018-06-07 10:19 | P.PNCC ---
Subjective Subjective Remarks/Hospital Course: 05/31: This is a 72-year-old male. He is a resident of [facility]. Date of admission 05/30/2018. Originally admitted to hospitalist service and now under our service 05/31/2018. Past medical history includes fibromyalgia, dementia, history of CVA, obstructive sleep apnea, atrial fibrillation/chronic, COPD, chronic kidney disease stage IV, BPH, diabetes mellitus, elevated BMI, atherosclerotic vascular disease, nephrolithiasis, liver cirrhosis, essential hypertension, hyperlipidemia, gout, history of right ice C occlusion, hypothyroidism, dysphagia, constipation, diplopia, CABG 2, TURP, cardiac stent, right percutaneous lithotripsy, liver biopsy and bilateral hand surgery. Patient is also on chronic benzodiazepines. Patient presented to [facility] on 05/30/2018 with history of being found on the floor between his bed in the window. His head was against the dresser. He was able to tell if he hit his head. There is a large amount about was in the floor but not bleeding from the head. He has excoriations on his back and his left knee and right wrist. CT brain at this facility was negative. Patient is on apixaban and aspirin at home. Patient was noted to have a urinary tract infection was started on cefepime and gentamicin by ED physician. Throughout the night, patient became more confused and is found to be obtunded earlier this morning was intubated and centralized placed due to hypotension. He is currently on norepinephrine drip at 12 mcg/min. Troponin was 0.05. Patient had a leukocytosis, normocytic anemia, creatinine 6.6/ baseline around 2.5 and TSH is 0.356. We are asked to admit the patient at this time. He is currently intubated and arousable in room C 25 in ED. No family available. 06/01: Remains sedated, orally intubated on mechanical ventilation. Had generalized tonic-clonic movements which were questionable last night for which he was given Ativan 4 mg IV and loaded with Cerebyx. EEG this morning pending. Neurology consult noted. Head CT negative for bleed. Negligible urine output. Worsening BUN/creatinine. On vasopressin low-dose currently, off all other pressors. 06/02: Remains sedated, arousable, orally intubated on mechanical ventilation. Not following commands unenlightening sedation. 06/03: Arouses off sedation, not following commands. Orally intubated on mechanical ventilation. On CPAP trials. 06/04: More awake today tracking. Intermittently follows commands on upper and lower extremities. Remains on Sujit-Synephrine and vasopressin. Also change amiodarone to p.o. BUN climbing 104 today, creatinine stable at 5.7. May need to start hemodialysis will discuss with nephrology 06/05: Patient was extubated yesterday, breathing well respiratory graf tolerating. Remains confused but follows commands continues to have some garbled speech. Creatinine is 5.65 BUN 108 today. Still making urine nephrology wants to hold off HD another day and monitor. UO 1.1 L in 24 hours 06/06: Patient is more critical today. He is more lethargic with worsening uremia BUN 124 creatinine 6.5. If family agreeable with hemodialysis I will place a Vas-Cath today. Give 1 dose of digoxin, start Coreg 6.25 mg twice daily , and restart p.o. amiodarone to wean off amiodarone infusion. 06/07: Started on hemodialysis yesterday, 1.3 L removed. Currently receiving hemodialysis heart rate better controlled in mid 80s. P.o. amiodarone and Coreg started yesterday. Right wrist remains swollen tender. XR negative Objective Vital Signs / I&O: Vital Signs 06/06/18 11:59 06/06/18 12:00 06/06/18 14:00 Temperature 98.0 F Pulse Rate 84 95 H 95 H Respiratory Rate 15 16 Blood Pressure 152/66 H Pulse Oximetry 96 06/06/18 16:00 06/06/18 16:40 06/06/18 18:00 Temperature 97.9 F Pulse Rate 82 83 87 Respiratory Rate 15 14 Blood Pressure 111/52 L Pulse Oximetry 06/06/18 20:00 06/06/18 21:04 06/06/18 21:05 Temperature 99.1 F Pulse Rate 96 H 90 Respiratory Rate 17 20 Blood Pressure 133/62 Pulse Oximetry 96 94 L 06/06/18 22:00 06/06/18 23:56 06/07/18 00:00 Temperature 98.3 F Pulse Rate 93 H 83 66 Respiratory Rate 16 13 Blood Pressure 113/54 L Pulse Oximetry 97 06/07/18 02:00 06/07/18 03:16 06/07/18 04:00 Temperature 99.7 F H Pulse Rate 83 82 82 Respiratory Rate 15 Blood Pressure 114/57 L Pulse Oximetry 97 06/07/18 06:00 06/07/18 08:50 Temperature Pulse Rate 87 89 Respiratory Rate 14 Blood Pressure Pulse Oximetry 96 Intake & Output 06/06/18 06/07/18 06/07/18 18:59 06:59 18:59 Intake Total 165 / 165 441 / 441 100 / 100 Output Total 300 / 300 1875 / 1875 Balance -135 / -135 -1434 / -1434 100 / 100 Intake: IV 250 / 250 100 / 100 Cordarone Inj 450 MG In D5W Inj 250 / 250 241 ML @ 1 MG/MIN 33.33 mls/hr IV.CONT TITRATE PRN Rx#: [id number] Flexbumin 25% Inj 100 ML @ 60 100 / 100 mls/hr IV.SIG WITH DIALYSIS PRN Rx#:[id number] Oral 0 / 0 Tube Feeding 165 / 165 191 / 191 Output: Urine 575 / 575 Hemodialysis Amount 1300 / 1300 Urine Amount (Catheter) 300 / 300 Coude 300 / 300 Other: Date of Last Bowel Movement 06/04/16 06/07/18 Result Diagrams: 06/06/18 05:00 06/06/18 05:00 Objective Remarks: GENERAL: 72-year-old male currently on NC, somnolent lethargic SKIN: Warm and dry. Excoriations on back, left knee anteriorly and right wrist , some swelling around the right wrist HEAD: Atraumatic. Normocephalic. EYES: Pupils equal and round bilaterally. No scleral icterus. No injection or drainage. ENT: No nasal bleeding or discharge. NECK: Trachea midline. No JVD. CARDIOVASCULAR: S1-S2 , no gallop or murmur. Chronic A. fib, rate controlled RESPIRATORY: Air entry diminished bilaterally with few inspiratory crackles GASTROINTESTINAL: Abdomen soft, non-tender, obese. Hypoactive bowel sounds. MUSCULOSKELETAL: Extremities with pitting bilateral lower extremity edema. Right wrist tender slightly swollen, mild erythema NEUROLOGICAL: Patient is more lethargic with, garbled speech. Moves all extremities follows commands Assessment and Plan - Assessment and Plan Plan: Neuro/Psych: Acute encephalopathy likely toxic metabolic secondary to severe sepsis, uremia CVA Dementia disorder NOS Chronic benzodiazepine use History of diplopia Remains off all sedation. Goal of RASS -0 Worsening encephalopathy could be due to increasing BUN. CT brain on admission revealed no acute intracranial findings Continue pregabalin 75 mg twice daily for peripheral neuropathy. Holding alprazolam 0.25 mg 3 times daily for anxiety. Previously for possible seizure, loaded with Cerebyx. EEG moderate encephalopathy no seizures. Neuro following. Repeat Head CT negative for bleed. 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 fib with RVR, now off PO amiodarone 200 mg twice daily, Coreg 6.25 mg twice daily, and s/p IV digoxin 0.25 milligrams 1 06/06/18 2D echo 07/09 revealed EF of 40-45%. LV dilatation. PAP 31 mmHg. Basilar inferolateral and inferior lateral hypokinesis. Repeat echocardiogram: Moderate concentric left ventricular hypertrophy. LVEF 60-65%. Estimated PASP is 63.3 mmHg. [id number] pulmonary hypertension present (range 60-70 mmHg). Heart catheterization 09/08 revealed patent LAURA to LAD and SVG to RCA. Dr. Jenkins is his drum attendant Holding Ranolazine 500 mg twice daily for angina. Aspirin 81 mg daily/home medication. Continue atorvastatin 40 mg daily for dyslipidemia Apixaban 2.5 mg twice daily on hold for HD catheter placement Holding diltiazem 120 mg daily, lisinopril 40 mg daily and metoprolol tartrate 100 mg twice daily/home medications Continue Bumex per nephrology Resp: Acute respiratory failure-extubated 06/04/18 History of WERNER History of COPD Prior history of tobaccoism Extubated 06/04 good oxygen saturation remains somnolent, lethargic. Patient is DNR/DNI Albuterol/ipratropium aerosols every 4 hours with albuterol aerosols every 2 hours as needed for dyspnea Holding Tiotropium 80 mg daily while on ipratropium GI: Gastroesophageal reflux disease history of gastric ulcer Constipation Hypoalbuminemia History of liver biopsy with diagnosis of cirrhosis? NPO per speech eval. Lansoprazole/sucralfate for GI prophylaxis. Polyethylene glycol 17 g twice daily for bowel regimen Continue NG tube and initiate tube feeding Renal: Acute kidney injury in the setting of chronic kidney disease stage IV BPH status post TURP Abdomen/pelvis CT with nonobstructing right renal stone Nephrology following. Started on HD 06/06/18 1.3 L removed, 3L removed today 06/07 Monitor urine output with accurate I's and O's. History of nephrolithiasis status post right percutaneous lithotripsy 2004 Maintain [place] catheter for accurate I's and O's Endo: Diabetes mellitus 1.5 treat as 1.0 Hypothyroidism History of gout Sliding-scale insulin with aspart insulin/high regimen with Accu-Cheks every 4 hours to maintain euglycemia Continue levothyroxine Holding insulin glargine 25 units twice daily Heme: Leukocytosis Normocytic anemia/anemia of chronic kidney disease Chronic apixaban use 2.5 mg twice daily Apixaban 2.5 mg twice daily. Holding for invasive procedures Monitor CBC daily. Follow trends. No indication for transfusion of blood products at this time. Type and screen ID: Proteus UTI History of Enterococcus faecalis bacteremia History of staph saprophyticus urinary tract infection Continue ceftriaxone for Proteus UTI Infectious disease following. Received cefepime and gentamicin in the ED. CT abdomen/pelvis with nonobstructing right renal stone Holding doxycycline 100 mg twice daily/home medication Resume clotrimazole 1% to affected areas twice daily. Blood cultures 2 05/31 negative, Urine cultures with Proteus Influenza a and B negative. Legionella and pneumococcal urinary antigens negative MSK: Swollen tender right wrist -X-ray negative for fracture -Check venous ultrasound -Uric acid, sed rate, ESR -8 mg IV Decadron 1 -If above workup negative check MRI of the right wrist Access -Left subclavian CVL 05/31) placed by ED physician Prophylaxis -GI -lansoprazole/sucralfate -DVT -SCD/apixaban will provide DVT prophylaxis. Holding apixaban for HD catheter insertion Palliative care following. DNR now Critically ill with worsening encephalopathy. started on HD. At risk for acute respiratory decompensation. Continue ICU care Level 3 Code Status: Full
[2018-06-07] MEDS: Sucralfate 1 GM Tablet PO SCH ×3 (10:38→18:42)
[2018-06-07] MEDS: Doxazosin 1 MG Tablet PO SCH (10:40)
[2018-06-07] MEDS: Polyethylene Glycol 3350 17 GM Packet NG/OG SCH ×2 (10:40→20:58)
[2018-06-07] MEDS: Ascorbic Acid 500 MG Tablet PO SCH (10:40)
[2018-06-07] MEDS: Pregabalin 75 MG Capsule PO SCH ×2 (10:40→20:58)
[2018-06-07] MEDS: Ferrrous Sulfate 300 MG/5 ML UDC PO SCH (10:40)
[2018-06-07] MEDS: Clotrimazole 1% Cream 15 GM Tube TOPICAL SCH ×2 (10:41→21:38)
[2018-06-07] MEDS: Amiodarone 200 MG Tablet PO SCH ×2 (10:41→20:58)
[2018-06-07] MEDS: Hypromellose 0.3% Opth Gel 10 GM Bottle EACH EYE SCH ×2 (10:41→21:38)
[2018-06-07] MEDS: Carvedilol 6.25 MG Tablet PO SCH ×2 (10:41→20:58)
--- NOTE | 2018-06-07 11:31 | P.PNID ---
Subjective Remarks: Patient is on room air. He awakens. He remains a little lethargic. Speaks with mumble. Afebrile. A granular erythematous rash is noted at the right hand. He has diffuse edema and has weeping of hands. Has pain in the right upper extremity with movement of the arm. Afebrile. Cultures as no growth HISTORY OF PRESENT ILLNESS: This is a 72-year-old white male who was brought to the emergency department from [facility] with altered mental status. He was intubated in the emergency department and is currently on the ventilator. He had a decreased blood pressure, as well as increased respiratory rate and was bradycardic and hypothermic with temperature of 94.6 degrees. He had marked decreased urine output and is in acute renal failure. ID consulted for severe sepsis, history of Escherichia faecalis bacteremia, Staphylococcus urinary tract infection. Assist with antibiotic management. Past Medical History: PAST MEDICAL HISTORY: Dementia, diabetes mellitus, hypertension, hypothyroidism, hyperlipidemia, fibromyalgia, benign prostatic hypertrophy, chronic kidney disease stage IV, chronic obstructive pulmonary disease, coronary artery disease, nephrolithiasis, non-ST elevated myocardial infarction, post-traumatic stress disorder, history of nephrostomy, history of coronary stents, history of TURP. Allergies/Adverse Reactions: Allergies ciprofloxacin Allergy (Severe, Verified 05/30/18 23:15) Itching diatrizoate meglumine Allergy (Severe, Verified 05/30/18 23:15) Itching gadobenic acid Allergy (Severe, Verified 05/30/18 23:15) Itching gadodiamide Allergy (Severe, Verified 05/30/18 23:15) Itching gadoteridol Allergy (Severe, Verified 05/30/18 23:15) Itching iodixanol Allergy (Severe, Verified 05/30/18 23:15) Itching iohexol Allergy (Severe, Verified 05/30/18 23:15) Itching levofloxacin Allergy (Severe, Verified 05/30/18 23:15) Itching celecoxib [From Celebrex] Allergy (Unknown, Verified 05/30/18 23:15) Itching ezetimibe [From Zetia] Allergy (Unknown, Verified 05/30/18 23:15) Itching prochlorperazine [From Compazine] Allergy (Unknown, Verified 05/10/18 20:51) Itching red dye Allergy (Unknown, Verified 05/10/18 20:51) Itching Objective Vital Signs 06/06/18 11:59 06/06/18 12:00 06/06/18 14:00 Temperature 98.0 F Pulse Rate 84 95 H 95 H Respiratory Rate 15 16 Blood Pressure 152/66 H Pulse Oximetry 96 06/06/18 16:00 06/06/18 16:40 06/06/18 18:00 Temperature 97.9 F Pulse Rate 82 83 87 Respiratory Rate 15 14 Blood Pressure 111/52 L Pulse Oximetry 06/06/18 20:00 06/06/18 21:04 06/06/18 21:05 Temperature 99.1 F Pulse Rate 96 H 90 Respiratory Rate 17 20 Blood Pressure 133/62 Pulse Oximetry 96 94 L 06/06/18 22:00 06/06/18 23:56 06/07/18 00:00 Temperature 98.3 F Pulse Rate 93 H 83 66 Respiratory Rate 16 13 Blood Pressure 113/54 L Pulse Oximetry 97 06/07/18 02:00 06/07/18 03:16 06/07/18 04:00 Temperature 99.7 F H Pulse Rate 83 82 82 Respiratory Rate 15 Blood Pressure 114/57 L Pulse Oximetry 97 06/07/18 06:00 06/07/18 08:50 Temperature Pulse Rate 87 89 Respiratory Rate 14 Blood Pressure Pulse Oximetry 96 Intake & Output 06/06/18 06/07/18 06/07/18 18:59 06:59 18:59 Intake Total 165 / 165 441 / 441 100 / 100 Output Total 300 / 300 1875 / 1875 3000 / 3000 Balance -135 / -135 -1434 / -1434 -2900 / -2900 Intake: IV 250 / 250 100 / 100 Cordarone Inj 450 MG In D5W Inj 250 / 250 241 ML @ 1 MG/MIN 33.33 mls/hr IV.CONT TITRATE PRN Rx#: [id number] Flexbumin 25% Inj 100 ML @ 60 100 / 100 mls/hr IV.SIG WITH DIALYSIS PRN Rx#:[id number] Oral 0 / 0 Tube Feeding 165 / 165 191 / 191 Output: Urine 575 / 575 Hemodialysis Amount 1300 / 1300 3000 / 3000 Urine Amount (Catheter) 300 / 300 Coude 300 / 300 Other: Date of Last Bowel Movement 06/04/16 06/07/18 05/31/18 07:45 Blood - Peripheral Aerobic Blood Culture - Final No growth in 5 days 05/31/18 07:45 Blood - Peripheral Anaerobic Blood Culture - Final No growth in 5 days 05/31/18 07:50 Blood - Peripheral Aerobic Blood Culture - Final No growth in 5 days 05/31/18 07:50 Blood - Peripheral Anaerobic Blood Culture - Final No growth in 5 days Lab - Hematology Results 06/06/18 05:00 WBC 14.7 H RBC 2.47 L Hgb 7.6 L Hct 23.7 L MCV 95.9 MCH 30.7 MCHC 32.0 RDW 13.7 Plt Count 235 MPV 8.1 Lab - Chemistry Results 06/05/18 06/05/18 06/05/18 12:07 15:49 15:50 Sodium Potassium Chloride Carbon Dioxide Anion Gap BUN Creatinine Estimated GFR POC Glucose 158 H 166 H 127 H Random Glucose Calcium Total Bilirubin AST ALT Alkaline Phosphatase Total Protein Albumin 06/05/18 06/06/18 06/06/18 20:03 00:40 05:00 Sodium 138 Potassium 4.8 Chloride 105 Carbon Dioxide 20.6 L Anion Gap 12 BUN 124 H Creatinine 6.15 H Estimated GFR 9 L POC Glucose 134 H 145 H Random Glucose 164 H Calcium 8.0 L Total Bilirubin 0.3 AST 16 ALT 14 Alkaline Phosphatase 94 Total Protein 5.0 L Albumin 1.8 L 06/06/18 06/06/18 06/07/18 17:35 23:44 04:46 Sodium Potassium Chloride Carbon Dioxide Anion Gap BUN Creatinine Estimated GFR POC Glucose 205 H 84 144 H Random Glucose Calcium Total Bilirubin AST ALT Alkaline Phosphatase Total Protein Albumin Imaging: ITS Impressions Abdomen/Pelvis CT 05/31/18 00:00 CONCLUSION: 1. No acute abnormality. 2. 7 mm nonobstructing right renal stone. 3. Small bilateral pleural effusions with bibasilar consolidations. This is more pronounced than typical passive atelectasis. Infectious etiology versus pulmonary edema. Head CT 05/31/18 00:00 CONCLUSION: Stable evaluation the brain without evidence of acute infarct, hemorrhage, mass or edema. . Head MRI 06/01/18 00:00 CONCLUSION: 1. No evidence of acute infarct, hemorrhage, mass or edema. 2. Mild cerebral white matter disease characteristic of microvascular ischemic changes. 3. No significant change compared to previous study in 2010 Elbow X-Ray 06/03/18 00:00 CONCLUSION: Unremarkable exam. Shoulder X-Ray 06/03/18 00:00 CONCLUSION: Unremarkable right shoulder. Abdomen X-Ray 06/06/18 09:53 CONCLUSION: Tip of NG tube in the region of the antrum of the stomach. Wrist X-Ray 06/06/18 11:03 CONCLUSION: 1. No acute fracture or dislocation. 2. Degenerative osteoarthritis, as above. Chest X-Ray 06/07/18 06:00 CONCLUSION: Tubes and lines in good position. Physical Exam: GENERAL: Alert and awake. HEENT: The head is atraumatic. No icterus. Pupils equally reactive. Oropharynx is dry. NECK: No adenopathy or swelling. LUNGS: Decreased breath sounds. HEART: Irregular rate and rhythm. No murmurs, rubs or gallops. ABDOMEN: Obese, soft, hyperactive bowel sounds. No masses palpable. EXTREMITIES: 3+ edema at UE's. Granular erythematous rash at the right hand. edema of the lower extremities. No clubbing or cyanosis. SKIN: No obvious diffuse rash. NEUROLOGIC: Awake and alert. No gross focal finding. PSYCH: Patient is calm. Assessment and Plan - Plan IMPRESSION: 1. Septic shock, probably secondary to urinary infection. Temperature and white blood cell count is improved. 2. Urinary tract infection. Proteus. 3. Acute respiratory failure. 4. Acute kidney disease. Currently on hemodialysis. 5. Bilateral lung infiltrates, which could be congestive heart failure versus bilateral pneumonia. 6. Erythematous rash at the right hand. Questionable etiology. Could be beginnings of antibiotic related rash. RECOMMENDATIONS: 1. Stop ceftriaxone. Monitor skin to see if he develops diffuse rash. He appears stable and therefore I think he can be without antibiotics for now. 2. Monitor WBC. 3. Monitor the clinical status. Dr Uriah Santillan covering on 06/08/18, Dr Royal Santillan covering. ID instrument person DR rhoades .
--- NOTE | 2018-06-07 14:36 | P.DIET ---
Nutritional Evaluation Type of nutrition evaluation: follow-up Nutrition consult regarding: Tube Feeding Nutrition screening: [facility] [place] Objective - Diagnosis AMS, UTI, Acute Respiratory Failure - Objective % IBW: 163 (IBW = 166#) Body Weight Used for Calculations: IBW (75.5kg) Energy Needs - Lower Range (kCal/kg): 28 Energy Needs - Upper Range (kCal/kg): 32 Lower Limit kCal/kg (kCals): 2,114 Upper Limit kCal/kg (kCals): 2,416 Lower Limit Protein Factor (Grams per Kg): 1.2 Upper Limit Protein Factor (Grams per Kg): 1.5 Lower Protein Needs (Protein): 91 Upper Protein Needs (Protein): 113 Dietitian Reviewed in Medical Record: Curent medications, Intake & Output, Labs , Medical history, Tube feeding Speech Therapy Recommendations: Yes (recommend npo) Objective Comments: Meds include: synthroid Assessment Assessment: Pt was extubated 06/04 and he started dialysis yesterday. ST recommends npo. If TF is needed, recommend Nepro @ 55 mls/hr x 22 hours (d/t Synthroid) to provide 2178 kcals and 98 gms protein. Weight changes noted. Recommendations: 1. Diet texture per ST 2. For TF: Nepro @ 55 mls/hr x 22 hours Dietitian to Monitor: Lab values, Renal labs, Intake & Output, Tube feeding tolerance, Weight change, Medical course
--- NOTE | 2018-06-07 14:51 | P.PNPAL ---
Reason for Visit Reason for visit: a. To assist with evaluation and management of symptoms including: Dyspnea, encephalopathy, dysphagia b. To assist medical decision maker(s) with: better understanding of current medical conditions; weighing benefits/burdens of medical treatment options; making medical treatment decisions. Subjective Subjective/Interval History: INTERVAL NOTE: Patient is more lethargic, opens eyes but is no longer answering questions or following commands. He is on his second day of dialysis. He does not appear dyspneic at this time, and does not appear to be in pain. Speech therapy reports severe dysphagia, n.p.o. He has an NG tube for artificial nutrition. Family/Friend Interactions: Discussed with son Jonel via telephone. He is clearly aware that the patient is not doing well, that he is now profoundly weak and at high risk for additional complications, setbacks, and . He says he would like to give the dialysis a couple days yet to see if it may improve his encephalopathy, but he is open to hospice services if the patient continues to deteriorate or does not improve over the next couple days Advance Directives Significant change in goals:: Son is open to hospice and transition to comfort measures if the patient does not improve over the next couple days Objective Vital Signs: Vital Signs 06/06/18 16:00 06/06/18 16:40 06/06/18 18:00 Temperature 97.9 F Pulse Rate 82 83 87 Respiratory Rate 15 14 Blood Pressure 111/52 L Pulse Oximetry 06/06/18 20:00 06/06/18 21:04 06/06/18 21:05 Temperature 99.1 F Pulse Rate 96 H 90 Respiratory Rate 17 20 Blood Pressure 133/62 Pulse Oximetry 96 94 L 06/06/18 22:00 06/06/18 23:56 06/07/18 00:00 Temperature 98.3 F Pulse Rate 93 H 83 66 Respiratory Rate 16 13 Blood Pressure 113/54 L Pulse Oximetry 97 06/07/18 02:00 06/07/18 03:16 06/07/18 04:00 Temperature 99.7 F H Pulse Rate 83 82 82 Respiratory Rate 15 Blood Pressure 114/57 L Pulse Oximetry 97 06/07/18 06:00 06/07/18 08:50 Temperature Pulse Rate 87 89 Respiratory Rate 14 Blood Pressure Pulse Oximetry 96 Intake & Output 06/06/18 06/07/18 06/07/18 18:59 06:59 18:59 Intake Total 165 / 165 441 / 441 100 / 100 Output Total 300 / 300 1875 / 1875 3000 / 3000 Balance -135 / -135 -1434 / -1434 -2900 / -2900 Intake: IV 250 / 250 100 / 100 Cordarone Inj 450 MG In D5W Inj 250 / 250 241 ML @ 1 MG/MIN 33.33 mls/hr IV.CONT TITRATE PRN Rx#: [id number] Flexbumin 25% Inj 100 ML @ 60 100 / 100 mls/hr IV.SIG WITH DIALYSIS PRN Rx#:[id number] Oral 0 / 0 Tube Feeding 165 / 165 191 / 191 Output: Urine 575 / 575 Hemodialysis Amount 1300 / 1300 3000 / 3000 Urine Amount (Catheter) 300 / 300 Coude 300 / 300 Other: Date of Last Bowel Movement 06/04/16 06/07/18 Physical Exam: CONSTITUTIONAL/GENERAL: This is an adequately nourished but profoundly weak patient, in no apparent distress. TUBES/LINES/DRAINS: left subclavian line, [place] CARDIOVASCULAR: Regular rate and rhythm without murmurs, gallops, or rubs. No JVD. Peripheral pulses symmetric. RESPIRATORY/CHEST: Symmetric, unlabored respirations. A few scattered rales. GASTROINTESTINAL: Abdomen soft, non-tender, and moderately distended. No hepato- splenomegaly, or palpable masses. No guarding. Bowel sounds present. MUSCULOSKELETAL: Extremities without clubbing, cyanosis, but there is moderate diffuse edema. No joint tenderness or effusion noted. No mottling or clubbing. NEUROLOGICAL: Less alert, not following commands. PSYCHIATRIC: Does not appear anxious or fearful. Diagnostic Tests Laboratory: Laboratory Results - last 72 hr 06/04/18 06/04/18 06/04/18 15:53 17:57 20:00 WBC RBC Hgb Hct MCV MCH MCHC RDW Plt Count MPV ESR Sodium Potassium Chloride Carbon Dioxide Anion Gap BUN Creatinine Estimated GFR POC Glucose 85 105 121 H Random Glucose Uric Acid Calcium Phosphorus Magnesium Total Bilirubin AST ALT Alkaline Phosphatase C-Reactive Protein Total Protein Albumin Digoxin Hepatitis A IgM Ab Hep Bs Antigen Hep B Core IgM Ab Hep C IgG Ab 06/04/18 06/05/18 06/05/18 23:33 04:40 04:40 WBC 15.1 H RBC 2.58 L Hgb 8.1 L Hct 24.5 L MCV 94.8 MCH 31.6 MCHC 33.3 RDW 13.4 Plt Count 214 MPV 8.1 ESR Sodium 139 Potassium 4.6 Chloride 105 Carbon Dioxide 21.6 Anion Gap 12 BUN 108 H Creatinine 5.65 H Estimated GFR 10 L POC Glucose 112 H Random Glucose 128 H Uric Acid Calcium 8.4 L Phosphorus 5.4 H Magnesium 2.2 Total Bilirubin 0.3 AST 25 ALT 17 Alkaline Phosphatase 93 C-Reactive Protein Total Protein 4.8 L Albumin 1.8 L Digoxin Hepatitis A IgM Ab Hep Bs Antigen Hep B Core IgM Ab Hep C IgG Ab 06/05/18 06/05/18 06/05/18 09:01 12:07 15:49 WBC RBC Hgb Hct MCV MCH MCHC RDW Plt Count MPV ESR Sodium Potassium Chloride Carbon Dioxide Anion Gap BUN Creatinine Estimated GFR POC Glucose 157 H 158 H 166 H Random Glucose Uric Acid Calcium Phosphorus Magnesium Total Bilirubin AST ALT Alkaline Phosphatase C-Reactive Protein Total Protein Albumin Digoxin Hepatitis A IgM Ab Hep Bs Antigen Hep B Core IgM Ab Hep C IgG Ab 06/05/18 06/05/18 06/06/18 15:50 20:03 00:40 WBC RBC Hgb Hct MCV MCH MCHC RDW Plt Count MPV ESR Sodium Potassium Chloride Carbon Dioxide Anion Gap BUN Creatinine Estimated GFR POC Glucose 127 H 134 H 145 H Random Glucose Uric Acid Calcium Phosphorus Magnesium Total Bilirubin AST ALT Alkaline Phosphatase C-Reactive Protein Total Protein Albumin Digoxin Hepatitis A IgM Ab Hep Bs Antigen Hep B Core IgM Ab Hep C IgG Ab 06/06/18 06/06/18 06/06/18 05:00 05:00 14:48 WBC 14.7 H RBC 2.47 L Hgb 7.6 L Hct 23.7 L MCV 95.9 MCH 30.7 MCHC 32.0 RDW 13.7 Plt Count 235 MPV 8.1 ESR Sodium 138 Potassium 4.8 Chloride 105 Carbon Dioxide 20.6 L Anion Gap 12 BUN 124 H Creatinine 6.15 H Estimated GFR 9 L POC Glucose Random Glucose 164 H Uric Acid Calcium 8.0 L Phosphorus Magnesium Total Bilirubin 0.3 AST 16 ALT 14 Alkaline Phosphatase 94 C-Reactive Protein Total Protein 5.0 L Albumin 1.8 L Digoxin 1.2 Hepatitis A IgM Ab Nonreactive Hep Bs Antigen Nonreactive Hep B Core IgM Ab Nonreactive Hep C IgG Ab Nonreactive 08/15/18 08/15/18 08/16/18 17:35 23:44 04:46 WBC RBC Hgb Hct MCV MCH MCHC RDW Plt Count MPV ESR Sodium Potassium Chloride Carbon Dioxide Anion Gap BUN Creatinine Estimated GFR POC Glucose 205 H 84 144 H Random Glucose Uric Acid Calcium Phosphorus Magnesium Total Bilirubin AST ALT Alkaline Phosphatase C-Reactive Protein Total Protein Albumin Digoxin Hepatitis A IgM Ab Hep Bs Antigen Hep B Core IgM Ab Hep C IgG Ab 06/07/18 06/07/18 06/07/18 11:45 11:45 11:45 WBC RBC Hgb Hct MCV MCH MCHC RDW Plt Count MPV ESR 80 H Sodium Potassium Chloride Carbon Dioxide Anion Gap BUN Creatinine Estimated GFR POC Glucose Random Glucose Uric Acid 4.2 Calcium Phosphorus Magnesium Total Bilirubin AST ALT Alkaline Phosphatase C-Reactive Protein 15.90 H Total Protein Albumin Digoxin Hepatitis A IgM Ab Hep Bs Antigen Hep B Core IgM Ab Hep C IgG Ab Result Diagrams: 06/06/18 05:00 06/06/18 05:00 Microbiology: Microbiology 05/31/18 07:45 Aerobic Blood Culture - Final Blood - Peripheral No growth in 5 days Anaerobic Blood Culture - Final No growth in 5 days 05/31/18 07:50 Aerobic Blood Culture - Final Blood - Peripheral No growth in 5 days Anaerobic Blood Culture - Final No growth in 5 days Imaging: Abdomen/Pelvis CT 05/31/18 00:00 CONCLUSION: 1. No acute abnormality. 2. 7 mm nonobstructing right renal stone. 3. Small bilateral pleural effusions with bibasilar consolidations. This is more pronounced than typical passive atelectasis. Infectious etiology versus pulmonary edema. Head CT 05/31/18 00:00 CONCLUSION: Stable evaluation the brain without evidence of acute infarct, hemorrhage, mass or edema. . Head MRI 06/01/18 00:00 CONCLUSION: 1. No evidence of acute infarct, hemorrhage, mass or edema. 2. Mild cerebral white matter disease characteristic of microvascular ischemic changes. 3. No significant change compared to previous study in 2011 Elbow X-Ray 06/03/18 00:00 CONCLUSION: Unremarkable exam. Shoulder X-Ray 06/03/18 00:00 CONCLUSION: Unremarkable right shoulder. Abdomen X-Ray 06/06/18 09:53 CONCLUSION: Tip of NG tube in the region of the antrum of the stomach. Wrist X-Ray 06/06/18 11:03 CONCLUSION: 1. No acute fracture or dislocation. 2. Degenerative osteoarthritis, as above. Chest X-Ray 06/07/18 06:00 CONCLUSION: Tubes and lines in good position. Procedures: INTUBATION 05/30/18 EXTUBATION 06/04/18 Assessment and Plan Pertinent Non-Medical Issues: Psychosocial: Retired, , on Social Security, assisted resident for several months. He had 3 children: One son is , crispin Remy has stayed in touch with the patient and lives in [place], and there is a daughter that has been estranged for many years (different mother) Spiritual: The patient is reportedly spiritual but not pentecostal, not affiliated with any mormonism or denomination. Son does not want herpetologist visits at this time Legal: The patient lacks capacity for decision-making, and it is not known whether he will regain. His son Jonel De La Paz is the healthcare proxy decision-maker at this time. Ethical issues impacting care: None Important Contacts: Crispin De La Paz, cell: [phone] Friend: Wilber Miller [phone] Prognosis: Overall, the patient's prognosis is poor. He has multiorgan system failure at this point in time, has severe dysphagia, and has multiple underlying comorbidities. He is appropriate for hospice when goals transition to comfort. Code Status: Alternative Code (Intubation only) Plan: * ALTERNATE CODE: Intubation only per her son Jonel 06/01/18 * DECISION-MAKING: The patient lacks capacity for decision-making, and it appears he will not regain capacity. His son Jonel De La Paz is the healthcare proxy decision-maker at this time. * GOALS: Discussed with crispin Remy via telephone 06/07/18. He is clearly aware that the patient is not doing well, that he is now profoundly weak and at high risk for additional complications, setbacks, and . He says he would like to give the dialysis a couple days yet to see if it may improve the encephalopathy, but he is open to hospice services if the patient continues to deteriorate or does not improve over the next couple days. * SYMPTOMS: The patient remains profoundly weak and his encephalopathy is not improving. He is not agitated or dyspneic at this time. I have no further medication recommendations. * Palliative Care will continue to follow the patient during this hospitalization. Time Spent Total Floor Time (mins): 40 Face to Face Time (mins): 15 >50% Time in Counseling or Coordination of Care: Yes Attestation Attestation: To help prompt me to consider important information that might be impacting today's encounter and assessment, information from prior notes written by myself or my colleagues may have been "brought forward" into today's note. My signature on this note, however, is an attestation that I personally performed the exam, history, and/or decision-making noted today, and, unless otherwise indicated, the interactions with patient, family, and staff as well as the review of records all occurred today. I also attest that the listed assessment and stated plan reflect my best clinical judgment today based on the combination of historical information, prior notes, and today's exam/ interactions. When time spent is documented, it refers only to time spent today by the signer, or if indicated, combined time spent today by collaborating physician/nurse practitioner.
--- NOTE | 2018-06-07 16:25 | US ---
EXAM DATE: 06/07/2018 4:09 PM EDT AGE/SEX: 72 years / Male INDICATIONS: Right arm swelling. CLINICAL DATA: This is the patient's subsequent encounter. Patient reports that signs and symptoms h ave been present for 4 - 6 days and indicates a pain score of 8/10. MEDICAL/SURGICAL HISTORY: . Chronic obstructive pulmonary disease. Hypertension. Congestive hea rt failure. Atrial fibrillation. BPH. Diabetes. Hypothyroidism. PTSD. Sleep apnea. CABG. COMPARISON: [facility] [place], [place] VENOUS DOPPLER ARM RIGHT, 05/10/2018. . FINDINGS: The vessels are compressible and augmentation response is documented. No filling defects a re seen. The flow is phasic with respiration. Other: None. CONCLUSION: The study is negative for upper extremity deep venous thrombosis. Electronically signed by: Ashvin Pereira MD 06/07/2018 4:24 PM EDT
--- NOTE | 2018-06-07 16:30 | P.PNNP ---
Subjective Interval history: Dialyzed yesterday and today. He is awake, lethargic, NPO. Edematous. His extremities are extremely painful. <Devi Iqbal - Last Filed: 06/07/18 16:26> Physical Exam Vital signs: Vital Signs 06/06/18 16:40 06/06/18 18:00 06/06/18 20:00 Temperature 99.1 F Pulse Rate 83 87 96 H Respiratory Rate 14 17 Blood Pressure 133/62 Pulse Oximetry 96 06/06/18 21:04 06/06/18 21:05 06/06/18 22:00 Temperature Pulse Rate 90 93 H Respiratory Rate 20 Blood Pressure Pulse Oximetry 94 L 06/06/18 23:56 06/07/18 00:00 06/07/18 02:00 Temperature 98.3 F Pulse Rate 83 66 83 Respiratory Rate 16 13 Blood Pressure 113/54 L Pulse Oximetry 97 06/07/18 03:16 06/07/18 04:00 06/07/18 06:00 Temperature 99.7 F H Pulse Rate 82 82 87 Respiratory Rate 15 Blood Pressure 114/57 L Pulse Oximetry 97 06/07/18 08:00 06/07/18 08:50 06/07/18 10:00 Temperature Pulse Rate 86 89 92 H Respiratory Rate 14 Blood Pressure Pulse Oximetry 96 06/07/18 12:00 06/07/18 14:00 Temperature Pulse Rate 134 H 98 H Respiratory Rate Blood Pressure Pulse Oximetry Intake & Output 06/06/18 06/07/18 06/07/18 18:59 06:59 18:59 Intake Total 165 / 165 441 / 441 100 / 100 Output Total 300 / 300 3175 / 3175 3000 / 3000 Balance -135 / -135 -2734 / -2734 -2900 / -2900 Intake: IV 250 / 250 100 / 100 Cordarone Inj 450 MG In D5W Inj 250 / 250 241 ML @ 1 MG/MIN 33.33 mls/hr IV.CONT TITRATE PRN Rx#: [id number] Flexbumin 25% Inj 100 ML @ 60 100 / 100 mls/hr IV.SIG WITH DIALYSIS PRN Rx#:[id number] Oral 0 / 0 Tube Feeding 165 / 165 191 / 191 Output: Urine 575 / 575 Hemodialysis Amount 2600 / 2600 3000 / 3000 Urine Amount (Catheter) 300 / 300 Coude 300 / 300 Other: Date of Last Bowel Movement 06/04/16 06/07/18 06/07/18 - Constitutional no acute distress, morbidly obese, somnolent - Routine HEENT Exam Head: Present: normocephalic - Routine Neck Exam Present: supple, full ROM - Routine Respiratory Exam Present: decreased breath sounds, rales, distant breath sounds. Absent: accessory muscle use, wheezes - Routine Cardiovascular Exam Present: RRR, S1, S2 - Routine Abdominal Exam Present: normoactive bowel sounds, firm. Absent: guarding - Routine Extremities Exam Present: edema, calf tenderness. Absent: full ROM - Routine Skin Exam Present: dry, warm - Routine Neurological Exam Present: moving all extremities - Detailed Neurological Exam: Coma Scale Eye Opening: To sound Verbal Response: Confused Motor Response: Obey commands [place] Coma Scale Total: 13 - Routine Psychiatric Exam Present: unable to assess - Urinary Catheter Management Coude Cath placed during this visit: yes Reason for continuing: Hourly intake/output Insertion date: 05/31/18 Insertion time: 23:00 <Deiv Iqbal - Last Filed: 06/07/18 16:26> Vital signs: Vital Signs 06/07/18 16:00 06/07/18 17:01 06/07/18 18:00 Temperature 98.7 F Pulse Rate 84 86 86 Respiratory Rate 14 16 Blood Pressure 103/50 L Pulse Oximetry 94 L 06/07/18 19:15 06/07/18 20:00 06/07/18 20:33 Temperature 98.5 F 98.5 F Pulse Rate 84 84 86 Respiratory Rate 14 14 16 Blood Pressure 123/55 L 123/55 L Pulse Oximetry 100 100 96 06/07/18 22:00 06/08/18 00:00 06/08/18 02:00 Temperature 98.4 F Pulse Rate 84 76 74 Respiratory Rate 16 Blood Pressure 120/56 L Pulse Oximetry 98 06/08/18 03:00 06/08/18 04:00 06/08/18 06:00 Temperature 98.5 F Pulse Rate 78 75 74 Respiratory Rate 18 13 Blood Pressure 123/56 L Pulse Oximetry 98 06/08/18 10:02 06/08/18 10:04 Temperature Pulse Rate 67 Respiratory Rate 18 Blood Pressure Pulse Oximetry 97 Intake & Output 06/07/18 06/08/18 06/08/18 18:59 06:59 18:59 Intake Total 469 / 469 470 / 470 Output Total 3200 / 3200 75 / 75 Balance -2731 / -2731 395 / 395 Intake: IV 100 / 100 100 / 100 Ofirmev Inj 1,000 mg In 100 ml 100 / 100 @ 400 mls/hr IV.SIG Q8H PRN Rx# :[id number] Flexbumin 25% Inj 100 ML @ 60 100 / 100 mls/hr IV.SIG WITH DIALYSIS PRN Rx#:[id number] Oral 0 / 0 Tube Feeding 249 / 249 230 / 230 Tube Irrigant 120 / 120 140 / 140 Output: Stool 0 / 0 Hemodialysis Amount 3000 / 3000 Urine Amount (Catheter) 200 / 200 75 / 75 Coude 200 / 200 Indwelling Urethral Catheter 75 / 75 Other: Date of Last Bowel Movement 06/07/18 06/08/18 # Bowel Movements 0 # Incontinent Bowel Movements 0 - Urinary Catheter Management Coude Cath placed during this visit: yes Reason for continuing: Hourly intake/output Insertion date: 05/31/18 Insertion time: 23:00 Indwelling Urethral Catheter Cath placed during this visit: no <Norman Tabares - Last Filed: 06/08/18 14:44> Assessment and Plan - Assessment (1) Acute on chronic kidney failure Code(s): N17.9 - Acute kidney failure, unspecified; N18.9 - Chronic kidney disease, unspecified Status: Acute Qualifiers: Acute renal failure type: unspecified Chronic kidney disease stage: stage 3 (moderate) Qualified Code(s): N17.9 - Acute kidney failure, unspecified; N18.3 - Chronic kidney disease, stage 3 (moderate) Plan: His baseline is 2.5-2.7 (CKD 3-4). He may have underlying diabetic nephropathy. Follows with Dr. Phillip in [place]. Most likely suffered ATN due to renal hypoperfusion secondary to hypotension; possibly infection Vascath placed and HD started 06/06. 5.6L UF over past two days. Resume Bumex 2 mg BID IV Monitor urine output. HD will be TTS as needed Await renal recovery Obtain daily labs Avoid nephrotoxic agents Avoid IVF. Palliative has met with the son. He would like to see if HD improves his mentation before making decidison to go with hospice. (2) Acute alteration in mental status Code(s): R41.82 - Altered mental status, unspecified Status: Acute Plan: May have been due to uremia, infection. Monitor post extubation (3) Septic shock Code(s): A41.9 - Sepsis, unspecified organism; R65.21 - Severe sepsis with septic shock Status: Acute Plan: He is off antibiotics per ID. continue supportive care He was treated for UTI and pneumonia. (4) Diabetes mellitus Code(s): E11.9 - Type 2 diabetes mellitus without complications Status: Acute Plan: Maintain blood glucose 140-180 mg/dL while admitted. <Devi Iqbal - Last Filed: 06/07/18 16:26> - Assessment (1) Acute on chronic kidney failure Code(s): N17.9 - Acute kidney failure, unspecified; N18.9 - Chronic kidney disease, unspecified Status: Acute Qualifiers: Acute renal failure type: unspecified Chronic kidney disease stage: stage 3 (moderate) Qualified Code(s): N17.9 - Acute kidney failure, unspecified; N18.3 - Chronic kidney disease, stage 3 (moderate) (2) Acute alteration in mental status Code(s): R41.82 - Altered mental status, unspecified Status: Acute (3) Septic shock Code(s): A41.9 - Sepsis, unspecified organism; R65.21 - Severe sepsis with septic shock Status: Acute (4) Diabetes mellitus Code(s): E11.9 - Type 2 diabetes mellitus without complications Status: Acute - Attending Attestation patient was seen and examined. Agree with above assessment and plan. I saw him during dialysis on . <Norman Tabares - Last Filed: 06/08/18 14:44>
[2018-06-07 22:34] LABS: Alanine Aminotransferase 42 U/L (12-78); Albumin 1.9 g/dL (3.4-5.0); Alkaline Phosphatase 123 U/L (45-117); Anion Gap 13 meq/L (5-15); Aspartate Aminotransferase 48 U/L (15-37); Blood Urea Nitrogen 77 mg/dL (7-18); Calcium 8.3 mg/dL (8.5-10.1); Carbon Dioxide 23.6 meq/L (21.0-32.0); Chloride 103 meq/L (98-107); Glomerular Filtration Rate 12 mL/min (>89); Glucose,Random 218 mg/dL (74-106); Potassium 4.4 meq/L (3.5-5.1); Sodium 140 meq/L (136-145); Total Protein 5.2 g/dL (6.4-8.2)
[2018-06-08] MEDS: Insulin NovoLOG Aspart Correctional Sugar Inj SQ SCH ×6 (01:07→21:22)
[2018-06-08] MEDS: Oral Hygiene Kit OROPHARYNG SCH ×4 (01:08→16:13)
[2018-06-08 04:29] LABS: Hematocrit 22.8 % (39.0-51.0); Hemoglobin 7.7 gm/dL (13.0-17.0); Mean Corpuscular HGB Conc 33.7 % (32.0-36.0); Mean Corpuscular Hemoglobin 31.8 pg (27.0-34.0); Mean Corpuscular Volume 94.3 fL (80.0-100.0); Platelet Count 240 th/mm3 (150-450); Red Blood Count 2.41 mil/mm3 (4.50-5.90); Red Cell Distribution Width 13.6 % (11.6-17.2); White Blood Count 15.2 th/mm3 (4.0-11.0)
[2018-06-08 04:53] LABS: Albumin 1.9 g/dL (3.4-5.0); Anion Gap 10 meq/L (5-15); Aspartate Aminotransferase 47 U/L (15-37); Blood Urea Nitrogen 81 mg/dL (7-18); Calcium 8.1 mg/dL (8.5-10.1); Carbon Dioxide 28.3 meq/L (21.0-32.0); Chloride 104 meq/L (98-107); Glomerular Filtration Rate 11 mL/min (>89); Glucose,Random 134 mg/dL (74-106); Sodium 142 meq/L (136-145)
[2018-06-08 04:57] LABS: Alanine Aminotransferase 43 U/L (12-78); Alkaline Phosphatase 116 U/L (45-117); Phosphorus 4.5 mg/dL (2.5-4.9); Total Protein 5.2 g/dL (6.4-8.2)
[2018-06-08] MEDS: Levothyroxine 75 MCG Tablet PO SCH (06:31)
[2018-06-08] MEDS: Levothyroxine 100 MCG Tablet PO SCH (06:31)
--- NOTE | 2018-06-08 06:58 | XR ---
EXAM DATE: 06/08/2018 6:48 AM EDT AGE/SEX: 72 years / Male INDICATIONS: Shortness of breath. Possible respiratory disease. CLINICAL DATA: This is the patient's subsequent encounter. Patient reports that signs and symptoms h ave been present for 1 week and indicates a pain score of Nonresponsive. MEDICAL/SURGICAL HISTORY: . Chronic obstructive pulmonary disease. Hypertension. Congestive he art failure. AFIB. Diabetes. CABG. [place] [facility] [place]. . FINDINGS: A single AP view of the chest was performed. Bilateral IJ central venous catheters and a nasoenteric tube remain in place. Slightly improved aeration of the lung bases. No pneumothorax. Stable cardiomed iastinal silhouette status post sternotomy. CONCLUSION: Slightly improved aeration of the lung bases. Otherwise stable exam. Electronically signed by: Taylor Cruz MD 06/08/2018 6:56 AM EDT
[2018-06-08] MEDS: Ascorbic Acid 500 MG Tablet PO SCH (08:29)
[2018-06-08] MEDS: Carvedilol 6.25 MG Tablet PO SCH ×2 (08:29→21:23)
[2018-06-08] MEDS: Doxazosin 1 MG Tablet PO SCH (08:29)
[2018-06-08] MEDS: Polyethylene Glycol 3350 17 GM Packet NG/OG SCH ×2 (08:29→21:23)
[2018-06-08] MEDS: Ferrrous Sulfate 300 MG/5 ML UDC PO SCH (08:29)
[2018-06-08] MEDS: Amiodarone 200 MG Tablet PO SCH ×2 (08:29→21:23)
[2018-06-08] MEDS: Pregabalin 75 MG Capsule PO SCH ×2 (08:29→21:23)
[2018-06-08] MEDS: Hypromellose 0.3% Opth Gel 10 GM Bottle EACH EYE SCH ×2 (12:40→21:23)
[2018-06-08] MEDS: Sucralfate 1 GM Tablet PO SCH ×3 (12:40→16:03)
[2018-06-08] MEDS: Clotrimazole 1% Cream 15 GM Tube TOPICAL SCH ×2 (12:41→21:23)
--- NOTE | 2018-06-08 12:43 | P.PNCC ---
Subjective Subjective Remarks/Hospital Course: 05/31: This is a 72-year-old male. He is a resident of [facility] and [facility]. Date of admission 05/30/2018. Originally admitted to hospitalist service and now under our service 05/31/2018. Past medical history includes fibromyalgia, dementia, history of CVA, obstructive sleep apnea, atrial fibrillation/chronic, COPD, chronic kidney disease stage IV, BPH, diabetes mellitus, elevated BMI, atherosclerotic vascular disease, nephrolithiasis, liver cirrhosis, essential hypertension, hyperlipidemia, gout, history of right ice C occlusion, hypothyroidism, dysphagia, constipation, diplopia, CABG 2, TURP, cardiac stent, right percutaneous lithotripsy, liver biopsy and bilateral hand surgery. Patient is also on chronic benzodiazepines. Patient presented to [facility] on 05/30/2018 with history of being found on the floor between his bed in the window. His head was against the dresser. He was able to tell if he hit his head. There is a large amount about was in the floor but not bleeding from the head. He has excoriations on his back and his left knee and right wrist. CT brain at this facility was negative. Patient is on apixaban and aspirin at home. Patient was noted to have a urinary tract infection was started on cefepime and gentamicin by ED physician. Throughout the night, patient became more confused and is found to be obtunded earlier this morning was intubated and centralized placed due to hypotension. He is currently on norepinephrine drip at 12 mcg/min. Troponin was 0.05. Patient had a leukocytosis, normocytic anemia, creatinine 6.6/ baseline around 2.5 and TSH is 0.356. We are asked to admit the patient at this time. He is currently intubated and arousable in room C 25 in ED. No family available. 06/01: Remains sedated, orally intubated on mechanical ventilation. Had generalized tonic-clonic movements which were questionable last night for which he was given Ativan 4 mg IV and loaded with Cerebyx. EEG this morning pending. Neurology consult noted. Head CT negative for bleed. Negligible urine output. Worsening BUN/creatinine. On vasopressin low-dose currently, off all other pressors. 06/02: Remains sedated, arousable, orally intubated on mechanical ventilation. Not following commands unenlightening sedation. 06/03: Arouses off sedation, not following commands. Orally intubated on mechanical ventilation. On CPAP trials. 06/04: More awake today tracking. Intermittently follows commands on upper and lower extremities. Remains on Sujit-Synephrine and vasopressin. Also change amiodarone to p.o. BUN climbing 104 today, creatinine stable at 5.7. May need to start hemodialysis will discuss with nephrology 06/05: Patient was extubated yesterday, breathing well respiratory graf tolerating. Remains confused but follows commands continues to have some garbled speech. Creatinine is 5.65 BUN 108 today. Still making urine nephrology wants to hold off HD another day and monitor. UO 1.1 L in 24 hours 06/06: Patient is more critical today. He is more lethargic with worsening uremia BUN 124 creatinine 6.5. If family agreeable with hemodialysis I will place a Vas-Cath today. Give 1 dose of digoxin, start Coreg 6.25 mg twice daily , and restart p.o. amiodarone to wean off amiodarone infusion. 06/07: Started on hemodialysis yesterday, 1.3 L removed. Currently receiving hemodialysis heart rate better controlled in mid 80s. P.o. amiodarone and Coreg started yesterday. Right wrist remains swollen tender. XR negative. 06/08: Breathing comfortably. CXR clear. Remains edematous in both arms. Will remove central line.. Tolerating beta-alton now. Objective Vital Signs / I&O: Vital Signs 06/07/18 14:00 06/07/18 16:00 06/07/18 17:01 Temperature 98.7 F Pulse Rate 98 H 84 86 Respiratory Rate 14 16 Blood Pressure 103/50 L Pulse Oximetry 94 L 06/07/18 18:00 06/07/18 19:15 06/07/18 20:00 Temperature 98.5 F 98.5 F Pulse Rate 86 84 84 Respiratory Rate 14 14 Blood Pressure 123/55 L 123/55 L Pulse Oximetry 100 100 06/07/18 20:33 06/07/18 22:00 06/08/18 00:00 Temperature 98.4 F Pulse Rate 86 84 76 Respiratory Rate 16 16 Blood Pressure 120/56 L Pulse Oximetry 96 98 06/08/18 02:00 06/08/18 03:00 06/08/18 04:00 Temperature 98.5 F Pulse Rate 74 78 75 Respiratory Rate 18 13 Blood Pressure 123/56 L Pulse Oximetry 98 06/08/18 06:00 06/08/18 10:02 06/08/18 10:04 Temperature Pulse Rate 74 67 Respiratory Rate 18 Blood Pressure Pulse Oximetry 97 Intake & Output 06/07/18 06/08/18 06/08/18 18:59 06:59 18:59 Intake Total 469 / 469 470 / 470 Output Total 3200 / 3200 75 / 75 Balance -2731 / -2731 395 / 395 Intake: IV 100 / 100 100 / 100 Ofirmev Inj 1,000 mg In 100 ml 100 / 100 @ 400 mls/hr IV.SIG Q8H PRN Rx# :[id number] Flexbumin 25% Inj 100 ML @ 60 100 / 100 mls/hr IV.SIG WITH DIALYSIS PRN Rx#:[id number] Oral 0 / 0 Tube Feeding 249 / 249 230 / 230 Tube Irrigant 120 / 120 140 / 140 Output: Stool 0 / 0 Hemodialysis Amount 3000 / 3000 Urine Amount (Catheter) 200 / 200 75 / 75 Coude 200 / 200 Indwelling Urethral Catheter 75 / 75 Other: Date of Last Bowel Movement 06/07/18 06/08/18 # Bowel Movements 0 # Incontinent Bowel Movements 0 Result Diagrams: 06/08/18 04:10 06/08/18 04:10 Objective Remarks: GENERAL: 72-year-old male currently on NC, remains somnolent lethargic SKIN: Warm and dry. Excoriations on back, left knee anteriorly and right wrist , some swelling around the right and left wrist HEAD: Atraumatic. Normocephalic. EYES: Pupils equal and round bilaterally. No scleral icterus. No injection or drainage. ENT: No nasal bleeding or discharge. NECK: Trachea midline. Airway widely patent, no obstructive noises. CARDIOVASCULAR: S1-S2 , no gallop or murmur. Chronic A. fib, rate controlled RESPIRATORY: Air entry diminished bilaterally, comfortable pattern. No crackles. GASTROINTESTINAL: Abdomen soft, non-tender, obese, active bowel sounds. No guarding. MUSCULOSKELETAL: Extremities with pitting bilateral lower extremity edema. Right wrist tender slightly swollen, mild erythema NEUROLOGICAL: Patient maintains lethargic. Moves all extremities follows commands Assessment and Plan - Assessment and Plan Plan: Neuro/Psych: Acute encephalopathy likely toxic metabolic secondary to severe sepsis, uremia CVA Dementia disorder NOS Chronic benzodiazepine use History of diplopia Remains off all sedation. Goal of RASS -0 Worsening encephalopathy could be due to increasing BUN. CT brain on admission revealed no acute intracranial findings Continue pregabalin 75 mg twice daily for peripheral neuropathy. Holding alprazolam 0.25 mg 3 times daily for anxiety. Previously for possible seizure, loaded with Cerebyx. EEG moderate encephalopathy no seizures. Neuro following. Repeat Head CT negative for bleed. 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 fib with RVR, now off PO amiodarone 200 mg twice daily, Coreg 6.25 mg twice daily, and s/p IV digoxin 0.25 milligrams 1 06/06/18 2D echo 07/09 revealed EF of 40-45%. LV dilatation. PAP 31 mmHg. Basilar inferolateral and inferior lateral hypokinesis. Repeat echocardiogram: Moderate concentric left ventricular hypertrophy. LVEF 60-65%. Estimated PASP is 63.3 mmHg. [id number] pulmonary hypertension present (range 60-70 mmHg). Heart catheterization 09/08 revealed patent LAURA to LAD and SVG to RCA. Dr. 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 Aspirin 81 mg daily/home medication. Continue atorvastatin 40 mg daily for dyslipidemia Apixaban 2.5 mg twice daily on hold for HD catheter placement Holding diltiazem 120 mg daily, lisinopril 40 mg daily and metoprolol tartrate 100 mg twice daily/home medications Continue Bumex per nephrology Resp: Acute respiratory failure-extubated 06/04/18 History of WERNER History of COPD Prior history of tobaccoism Extubated 06/04 good oxygen saturation remains somnolent, lethargic. Patient is DNR/DNI Albuterol/ipratropium aerosols every 4 hours with albuterol aerosols every 2 hours as needed for dyspnea Holding Tiotropium 80 mg daily while on ipratropium GI: Gastroesophageal reflux disease history of gastric ulcer Constipation Hypoalbuminemia History of liver biopsy with diagnosis of cirrhosis? NPO per speech eval. Lansoprazole/sucralfate for GI prophylaxis. Polyethylene glycol 17 g twice daily for bowel regimen Continue NG tube and initiate tube feeding Renal: Acute kidney injury in the setting of chronic kidney disease stage IV BPH status post TURP Abdomen/pelvis CT with nonobstructing right renal stone Nephrology following. Started on HD 06/06/18 1.3 L removed, 3L removed today 06/07 Monitor urine output with accurate I's and O's. History of nephrolithiasis status post right percutaneous lithotripsy 2004 Maintain [place] catheter for accurate I's and O's Endo: Diabetes mellitus 1.5 treat as 1.0 Hypothyroidism History of gout Sliding-scale insulin with aspart insulin/high regimen with Accu-Cheks every 4 hours to maintain euglycemia Continue levothyroxine Holding insulin glargine 25 units twice daily Heme: Leukocytosis Normocytic anemia/anemia of chronic kidney disease Chronic apixaban use 2.5 mg twice daily Apixaban 2.5 mg twice daily. Holding for invasive procedures Monitor CBC daily. Follow trends. No indication for transfusion of blood products at this time. Type and screen ID: Proteus UTI History of Enterococcus faecalis bacteremia History of staph saprophyticus urinary tract infection Continue ceftriaxone for Proteus UTI Infectious disease following. Received cefepime and gentamicin in the ED. CT abdomen/pelvis with nonobstructing right renal stone Holding doxycycline 100 mg twice daily/home medication Resume clotrimazole 1% to affected areas twice daily. Blood cultures 2 05/31 negative, Urine cultures with Proteus Influenza a and B negative. Legionella and pneumococcal urinary antigens negative MSK: Swollen tender right wrist -X-ray negative for fracture -Check venous ultrasound -Uric acid, sed rate, ESR -8 mg IV Decadron 1 -If above workup negative check MRI of the right wrist Access -Left subclavian CVL 05/31), removed today 06/08 Prophylaxis -GI -lansoprazole/sucralfate -DVT -SCD/apixaban will provide DVT prophylaxis. Holding apixaban for HD catheter insertion Palliative care following. DNR now Overall impression: Generally edematous, weak, lethargic elderly gentleman. Hemodialysis begun for end-stage renal disease. Were waiting to see if his sensorium will clear with removal of toxic metabolic products.
--- NOTE | 2018-06-08 13:51 | P.PNID ---
Subjective Remarks: ID Coverage Notes reviewed D/W RN Temps ok C/O severe pain R hand Patient is on room air. Awake and interacting Had HD yesterday, for repeat HD tomorrow Had Shaan in UC Received about 7 days Abx - Abx D/C because of rash in his R hand HISTORY OF PRESENT ILLNESS: This is a 72-year-old white male who was brought to the emergency department from [facility] with altered mental status. He was intubated in the emergency department and is currently on the ventilator. He had a decreased blood pressure, as well as increased respiratory rate and was bradycardic and hypothermic with temperature of 94.6 degrees. He had marked decreased urine output and is in acute renal failure. ID consulted for severe sepsis, history of Escherichia faecalis bacteremia, Staphylococcus urinary tract infection. Assist with antibiotic management. Antibiotics: None Past Medical History: PAST MEDICAL HISTORY: Dementia, diabetes mellitus, hypertension, hypothyroidism, hyperlipidemia, fibromyalgia, benign prostatic hypertrophy, chronic kidney disease stage IV, chronic obstructive pulmonary disease, coronary artery disease, nephrolithiasis, non-ST elevated myocardial infarction, post-traumatic stress disorder, history of nephrostomy, history of coronary stents, history of TURP. Allergies/Adverse Reactions: Allergies ciprofloxacin Allergy (Severe, Verified 05/30/18 23:15) Itching diatrizoate meglumine Allergy (Severe, Verified 05/30/18 23:15) Itching gadobenic acid Allergy (Severe, Verified 05/30/18 23:15) Itching gadodiamide Allergy (Severe, Verified 05/30/18 23:15) Itching gadoteridol Allergy (Severe, Verified 05/30/18 23:15) Itching iodixanol Allergy (Severe, Verified 05/30/18 23:15) Itching iohexol Allergy (Severe, Verified 05/30/18 23:15) Itching levofloxacin Allergy (Severe, Verified 05/30/18 23:15) Itching celecoxib [From Celebrex] Allergy (Unknown, Verified 05/30/18 23:15) Itching ezetimibe [From Zetia] Allergy (Unknown, Verified 05/30/18 23:15) Itching prochlorperazine [From Compazine] Allergy (Unknown, Verified 05/10/18 20:51) Itching red dye Allergy (Unknown, Verified 05/10/18 20:51) Itching Objective Vital Signs 06/07/18 14:00 06/07/18 16:00 06/07/18 17:01 Temperature 98.7 F Pulse Rate 98 H 84 86 Respiratory Rate 14 16 Blood Pressure 103/50 L Pulse Oximetry 94 L 06/07/18 18:00 06/07/18 19:15 06/07/18 20:00 Temperature 98.5 F 98.5 F Pulse Rate 86 84 84 Respiratory Rate 14 14 Blood Pressure 123/55 L 123/55 L Pulse Oximetry 100 100 06/07/18 20:33 06/07/18 22:00 06/08/18 00:00 Temperature 98.4 F Pulse Rate 86 84 76 Respiratory Rate 16 16 Blood Pressure 120/56 L Pulse Oximetry 96 98 06/08/18 02:00 06/08/18 03:00 06/08/18 04:00 Temperature 98.5 F Pulse Rate 74 78 75 Respiratory Rate 18 13 Blood Pressure 123/56 L Pulse Oximetry 98 06/08/18 06:00 06/08/18 10:02 06/08/18 10:04 Temperature Pulse Rate 74 67 Respiratory Rate 18 Blood Pressure Pulse Oximetry 97 Intake & Output 06/07/18 06/08/18 06/08/18 18:59 06:59 18:59 Intake Total 469 / 469 470 / 470 Output Total 3200 / 3200 75 / 75 Balance -2731 / -2731 395 / 395 Intake: IV 100 / 100 100 / 100 Ofirmev Inj 1,000 mg In 100 ml 100 / 100 @ 400 mls/hr IV.SIG Q8H PRN Rx# :[id number] Flexbumin 25% Inj 100 ML @ 60 100 / 100 mls/hr IV.SIG WITH DIALYSIS PRN Rx#:[id number] Oral 0 / 0 Tube Feeding 249 / 249 230 / 230 Tube Irrigant 120 / 120 140 / 140 Output: Stool 0 / 0 Hemodialysis Amount 3000 / 3000 Urine Amount (Catheter) 200 / 200 75 / 75 Coude 200 / 200 Indwelling Urethral Catheter 75 / 75 Other: Date of Last Bowel Movement 06/07/18 06/08/18 # Bowel Movements 0 # Incontinent Bowel Movements 0 05/31/18 07:45 Blood - Peripheral Aerobic Blood Culture - Final No growth in 5 days 05/31/18 07:45 Blood - Peripheral Anaerobic Blood Culture - Final No growth in 5 days 05/31/18 07:50 Blood - Peripheral Aerobic Blood Culture - Final No growth in 5 days 05/31/18 07:50 Blood - Peripheral Anaerobic Blood Culture - Final No growth in 5 days Lab - Hematology Results 06/07/18 06/08/18 11:45 04:10 WBC 15.2 H RBC 2.41 L Hgb 7.7 L Hct 22.8 L MCV 94.3 MCH 31.8 MCHC 33.7 RDW 13.6 Plt Count 240 MPV 8.0 ESR 80 H Lab - Chemistry Results 06/06/18 06/06/18 06/07/18 17:35 23:44 04:46 Sodium Potassium Chloride Carbon Dioxide Anion Gap BUN Creatinine Estimated GFR POC Glucose 205 H 84 144 H Random Glucose Uric Acid Calcium Phosphorus Total Bilirubin AST ALT Alkaline Phosphatase C-Reactive Protein Total Protein Albumin 06/07/18 06/07/18 06/07/18 11:45 11:45 18:00 Sodium Potassium Chloride Carbon Dioxide Anion Gap BUN Creatinine Estimated GFR POC Glucose 187 H Random Glucose Uric Acid 4.2 Calcium Phosphorus Total Bilirubin AST ALT Alkaline Phosphatase C-Reactive Protein 15.90 H Total Protein Albumin 06/07/18 06/07/18 06/08/18 20:53 21:30 00:55 Sodium 140 Potassium 4.4 Chloride 103 Carbon Dioxide 23.6 Anion Gap 13 BUN 77 H Creatinine 4.79 H Estimated GFR 12 L POC Glucose 230 H 180 H Random Glucose 218 H Uric Acid Calcium 8.3 L Phosphorus Total Bilirubin 0.3 AST 48 H ALT 42 Alkaline Phosphatase 123 H C-Reactive Protein Total Protein 5.2 L Albumin 1.9 L 06/08/18 06/08/18 04:10 13:08 Sodium 142 Potassium 4.0 Chloride 104 Carbon Dioxide 28.3 Anion Gap 10 BUN 81 H Creatinine 5.37 H Estimated GFR 11 L POC Glucose 179 H Random Glucose 134 H Uric Acid Calcium 8.1 L Phosphorus 4.5 Total Bilirubin 0.2 AST 47 H ALT 43 Alkaline Phosphatase 116 C-Reactive Protein Total Protein 5.2 L Albumin 1.9 L Imaging: ITS Impressions Abdomen/Pelvis CT 05/31/18 00:00 CONCLUSION: 1. No acute abnormality. 2. 7 mm nonobstructing right renal stone. 3. Small bilateral pleural effusions with bibasilar consolidations. This is more pronounced than typical passive atelectasis. Infectious etiology versus pulmonary edema. Head CT 05/31/18 00:00 CONCLUSION: Stable evaluation the brain without evidence of acute infarct, hemorrhage, mass or edema. . Head MRI 06/01/18 00:00 CONCLUSION: 1. No evidence of acute infarct, hemorrhage, mass or edema. 2. Mild cerebral white matter disease characteristic of microvascular ischemic changes. 3. No significant change compared to previous study in 2010 Elbow X-Ray 06/03/18 00:00 CONCLUSION: Unremarkable exam. Shoulder X-Ray 06/03/18 00:00 CONCLUSION: Unremarkable right shoulder. Abdomen X-Ray 06/06/18 09:53 CONCLUSION: Tip of NG tube in the region of the antrum of the stomach. Wrist X-Ray 06/06/18 11:03 CONCLUSION: 1. No acute fracture or dislocation. 2. Degenerative osteoarthritis, as above. Venous Doppler Study 06/07/18 00:00 CONCLUSION: The study is negative for upper extremity deep venous thrombosis. Chest X-Ray 06/08/18 06:00 CONCLUSION: Slightly improved aeration of the lung bases. Otherwise stable exam. Physical Exam: GENERAL: Alert and awake. HEENT: The head is atraumatic. No icterus. Pupils equally reactive. Oropharynx is dry. NECK: No adenopathy or swelling. LUNGS: Decreased breath sounds. HEART: Irregular rate and rhythm. No murmurs, rubs or gallops. ABDOMEN: Obese, soft, hyperactive bowel sounds. No masses palpable. EXTREMITIES: 3+ edema at UE's. There is swelling of his RIF SKIN: No obvious diffuse rash. NEUROLOGIC: Awake and alert. No gross focal finding. PSYCH: Patient is calm. Assessment and Plan - Plan IMPRESSION: S/P Septic shock, probably secondary to urinary infection. Temperature and white blood cell count is improved. Urinary tract infection. Proteus. Acute respiratory failure. - tolerating extubation Acute kidney disease. Currently on hemodialysis. Bilateral lung infiltrates, which could be congestive heart failure versus bilateral pneumonia. possible gout or inflammatory arthritis RIF RECOMMENDATIONS: Monitor off Abx - he received 7 days Abx for his UTI Repeat UA and C/S Short course of steroids Monitor WBC. Monitor progress D/W RN Dr Radha Diaz covering this weekend
--- NOTE | 2018-06-08 15:00 | P.PNNP ---
Subjective Interval history: He is awake, very confused. Edematous. He is very tender, all extremities. He has become anuric. <Devi Iqbal - Last Filed: 06/08/18 14:48> Physical Exam Vital signs: Vital Signs 06/07/18 16:00 06/07/18 17:01 06/07/18 18:00 Temperature 98.7 F Pulse Rate 84 86 86 Respiratory Rate 14 16 Blood Pressure 103/50 L Pulse Oximetry 94 L 06/07/18 19:15 06/07/18 20:00 06/07/18 20:33 Temperature 98.5 F 98.5 F Pulse Rate 84 84 86 Respiratory Rate 14 14 16 Blood Pressure 123/55 L 123/55 L Pulse Oximetry 100 100 96 06/07/18 22:00 06/08/18 00:00 06/08/18 02:00 Temperature 98.4 F Pulse Rate 84 76 74 Respiratory Rate 16 Blood Pressure 120/56 L Pulse Oximetry 98 06/08/18 03:00 06/08/18 04:00 06/08/18 06:00 Temperature 98.5 F Pulse Rate 78 75 74 Respiratory Rate 18 13 Blood Pressure 123/56 L Pulse Oximetry 98 06/08/18 10:02 06/08/18 10:04 Temperature Pulse Rate 67 Respiratory Rate 18 Blood Pressure Pulse Oximetry 97 Intake & Output 06/07/18 06/08/18 06/08/18 18:59 06:59 18:59 Intake Total 469 / 469 470 / 470 Output Total 3200 / 3200 75 / 75 Balance -2731 / -2731 395 / 395 Intake: IV 100 / 100 100 / 100 Ofirmev Inj 1,000 mg In 100 ml 100 / 100 @ 400 mls/hr IV.SIG Q8H PRN Rx# :[id number] Flexbumin 25% Inj 100 ML @ 60 100 / 100 mls/hr IV.SIG WITH DIALYSIS PRN Rx#:[id number] Oral 0 / 0 Tube Feeding 249 / 249 230 / 230 Tube Irrigant 120 / 120 140 / 140 Output: Stool 0 / 0 Hemodialysis Amount 3000 / 3000 Urine Amount (Catheter) 200 / 200 75 / 75 Coude 200 / 200 Indwelling Urethral Catheter 75 / 75 Other: Date of Last Bowel Movement 06/07/18 06/08/18 # Bowel Movements 0 # Incontinent Bowel Movements 0 - Constitutional no acute distress - Routine HEENT Exam Head: Present: normocephalic - Routine Neck Exam Present: supple, full ROM - Routine Respiratory Exam Present: crackles. Absent: accessory muscle use - Routine Cardiovascular Exam Present: RRR, S1, S2 - Routine Abdominal Exam Present: soft, normoactive bowel sounds - Routine Extremities Exam Present: edema, calf tenderness, tenderness Comments: 4+ edema - Routine Skin Exam Present: intact, dry, warm - Routine Neurological Exam Present: alert, altered mental status Awake, doesn't remember birthday, slow to tell me his name. - Detailed Neurological Exam: Coma Scale Eye Opening: To pressure Verbal Response: Confused Motor Response: Obey commands Carrillo Coma Scale Total: 12 - Routine Psychiatric Exam Present: unable to assess - Urinary Catheter Management Coude Cath placed during this visit: yes Reason for continuing: Hourly intake/output Insertion date: 05/31/18 Insertion time: 23:00 Indwelling Urethral Catheter Cath placed during this visit: no <Devi Iqbal - Last Filed: 06/08/18 14:48> Vital signs: Vital Signs 06/10/18 12:00 06/10/18 14:00 06/10/18 15:55 Temperature 98.4 F Pulse Rate 66 62 70 Respiratory Rate 21 17 Blood Pressure 157/65 H Pulse Oximetry 06/10/18 16:00 06/10/18 18:00 06/10/18 20:00 Temperature 98.3 F 98.7 F Pulse Rate 68 68 67 Respiratory Rate 9 L Blood Pressure 129/87 147/85 H Pulse Oximetry 99 06/10/18 20:46 06/10/18 20:47 06/10/18 21:42 Temperature Pulse Rate 66 Respiratory Rate 16 14 Blood Pressure Pulse Oximetry 98 06/10/18 22:00 06/11/18 00:00 06/11/18 02:00 Temperature 98.6 F Pulse Rate 66 60 57 L Respiratory Rate 16 Blood Pressure 86/53 L Pulse Oximetry 100 06/11/18 03:30 06/11/18 04:00 06/11/18 06:00 Temperature 98.8 F Pulse Rate 58 L 60 69 Respiratory Rate 16 12 Blood Pressure 159/67 H Pulse Oximetry 98 06/11/18 09:00 06/11/18 10:24 Temperature Pulse Rate 60 Respiratory Rate 12 Blood Pressure Pulse Oximetry 98 Intake & Output 06/10/18 06/11/18 06/11/18 18:59 06:59 18:59 Intake Total 548 / 548 548 / 548 100 / 100 Output Total 0 / 0 4220 / 4220 Balance 548 / 548 -3672 / -3672 100 / 100 Weight 122.9 kg Intake: IV 100 / 100 Ofirmev Inj 1,000 mg In 100 ml 100 / 100 @ 400 mls/hr IV.SIG Q8H PRN Rx# :[id number] Oral 0 / 0 0 / 0 Tube Feeding 428 / 428 428 / 428 Tube Irrigant 120 / 120 120 / 120 Output: Urine 0 / 0 0 / 0 Stool 0 / 0 Hemodialysis Amount 4000 / 4000 Urine Amount (Catheter) 220 / 220 Coude 200 / 200 Indwelling Urethral Catheter Other: # Voids 1 1 Date of Last Bowel Movement 06/10/18 06/10/18 # Bowel Movements 1 1 # Incontinent Bowel Movements 0 - Urinary Catheter Management Coude Cath placed during this visit: no Indwelling Urethral Catheter Cath placed during this visit: no <Norman Tabares - Last Filed: 06/11/18 10:26> Assessment and Plan - Assessment (1) Acute on chronic kidney failure Code(s): N17.9 - Acute kidney failure, unspecified; N18.9 - Chronic kidney disease, unspecified Status: Acute Qualifiers: Acute renal failure type: unspecified Chronic kidney disease stage: stage 3 (moderate) Qualified Code(s): N17.9 - Acute kidney failure, unspecified; N18.3 - Chronic kidney disease, stage 3 (moderate) Plan: His baseline is 2.5-2.7 (CKD 3-4). He may have underlying diabetic nephropathy. Follows with Dr. Phillip in [place]. Oliguric renal failure, ATN Vascath placed and HD started 06/06. Now on TTS HD, due tomorrow Stop Bumex. Increase fluid removal with HD. Remove Mansfield catheter. Obtain daily labs Avoid nephrotoxic agents Avoid IVF. Monitor for signs of renal recovery. Palliative has met with the son. He would like to see if HD improves his mentation before making decision to go with hospice. (2) Acute alteration in mental status Code(s): R41.82 - Altered mental status, unspecified Status: Acute Plan: Most likely is due to uremia, infection. Monitor post extubation (3) Septic shock Code(s): A41.9 - Sepsis, unspecified organism; R65.21 - Severe sepsis with septic shock Status: Acute Plan: He is off antibiotics per ID. continue supportive care He was treated for UTI and pneumonia. On contact isolation. (4) Diabetes mellitus Code(s): E11.9 - Type 2 diabetes mellitus without complications Status: Acute Plan: Maintain blood glucose 140-180 mg/dL while admitted. On tube feeding. <Devi Iqbal - Last Filed: 06/08/18 14:48> - Assessment (1) Acute on chronic kidney failure Code(s): N17.9 - Acute kidney failure, unspecified; N18.9 - Chronic kidney disease, unspecified Status: Acute Qualifiers: Acute renal failure type: unspecified Chronic kidney disease stage: stage 3 (moderate) Qualified Code(s): N17.9 - Acute kidney failure, unspecified; N18.3 - Chronic kidney disease, stage 3 (moderate) (2) Acute alteration in mental status Code(s): R41.82 - Altered mental status, unspecified Status: Acute (3) Septic shock Code(s): A41.9 - Sepsis, unspecified organism; R65.21 - Severe sepsis with septic shock Status: Acute (4) Diabetes mellitus Code(s): E11.9 - Type 2 diabetes mellitus without complications Status: Acute - Attending Attestation patient was seen and examined. Agree with above assessment and plan. <Norman Tabares - Last Filed: 06/11/18 10:26>
[2018-06-08] MEDS: predniSONE 20 MG Tablet PO SCH (16:12)
[2018-06-09] MEDS: Oral Hygiene Kit OROPHARYNG SCH ×4 (00:39→16:26)
[2018-06-09] MEDS: Insulin NovoLOG Aspart Correctional Sugar Inj SQ SCH ×7 (00:39→22:56)
[2018-06-09 04:59] LABS: Calcium 8.2 mg/dL (8.5-10.1); Carbon Dioxide 28.6 meq/L (21.0-32.0); Phosphorus 4.9 mg/dL (2.5-4.9); Potassium 4.7 meq/L (3.5-5.1)
[2018-06-09] MEDS: Levothyroxine 100 MCG Tablet PO SCH (05:16)
[2018-06-09] MEDS: Levothyroxine 75 MCG Tablet PO SCH (05:16)
[2018-06-09] MEDS: Heparin 10,000 UNITS/10 ML Vial (for IV use) OTHER PRN (08:49)
--- NOTE | 2018-06-09 10:08 | P.PNCC ---
Subjective Subjective Remarks/Hospital Course: 05/31: This is a 72-year-old male. He is a resident of [facility] and [facility]. Date of admission 05/30/2018. Originally admitted to hospitalist service and now under our service 05/31/2018. Past medical history includes fibromyalgia, dementia, history of CVA, obstructive sleep apnea, atrial fibrillation/chronic, COPD, chronic kidney disease stage IV, BPH, diabetes mellitus, elevated BMI, atherosclerotic vascular disease, nephrolithiasis, liver cirrhosis, essential hypertension, hyperlipidemia, gout, history of right ice C occlusion, hypothyroidism, dysphagia, constipation, diplopia, CABG 2, TURP, cardiac stent, right percutaneous lithotripsy, liver biopsy and bilateral hand surgery. Patient is also on chronic benzodiazepines. Patient presented to [facility] on 05/30/2018 with history of being found on the floor between his bed in the window. His head was against the dresser. He was able to tell if he hit his head. There is a large amount about was in the floor but not bleeding from the head. He has excoriations on his back and his left knee and right wrist. CT brain at this facility was negative. Patient is on apixaban and aspirin at home. Patient was noted to have a urinary tract infection was started on cefepime and gentamicin by ED physician. Throughout the night, patient became more confused and is found to be obtunded earlier this morning was intubated and centralized placed due to hypotension. He is currently on norepinephrine drip at 12 mcg/min. Troponin was 0.05. Patient had a leukocytosis, normocytic anemia, creatinine 6.6/ baseline around 2.5 and TSH is 0.356. We are asked to admit the patient at this time. He is currently intubated and arousable in room C 25 in ED. No family available. 06/01: Remains sedated, orally intubated on mechanical ventilation. Had generalized tonic-clonic movements which were questionable last night for which he was given Ativan 4 mg IV and loaded with Cerebyx. EEG this morning pending. Neurology consult noted. Head CT negative for bleed. Negligible urine output. Worsening BUN/creatinine. On vasopressin low-dose currently, off all other pressors. 06/02: Remains sedated, arousable, orally intubated on mechanical ventilation. Not following commands unenlightening sedation. 06/03: Arouses off sedation, not following commands. Orally intubated on mechanical ventilation. On CPAP trials. 06/04: More awake today tracking. Intermittently follows commands on upper and lower extremities. Remains on Sujit-Synephrine and vasopressin. Also change amiodarone to p.o. BUN climbing 104 today, creatinine stable at 5.7. May need to start hemodialysis will discuss with nephrology 06/05: Patient was extubated yesterday, breathing well respiratory graf tolerating. Remains confused but follows commands continues to have some garbled speech. Creatinine is 5.65 BUN 108 today. Still making urine nephrology wants to hold off HD another day and monitor. UO 1.1 L in 24 hours 06/06: Patient is more critical today. He is more lethargic with worsening uremia BUN 124 creatinine 6.5. If family agreeable with hemodialysis I will place a Vas-Cath today. Give 1 dose of digoxin, start Coreg 6.25 mg twice daily , and restart p.o. amiodarone to wean off amiodarone infusion. 06/07: Started on hemodialysis yesterday, 1.3 L removed. Currently receiving hemodialysis heart rate better controlled in mid 80s. P.o. amiodarone and Coreg started yesterday. Right wrist remains swollen tender. XR negative. 06/08: Breathing comfortably. CXR clear. Remains edematous in both arms. Will remove central line.. Tolerating beta-alton now. 06/09: Tolerating hemodialysis this morning. Heart rate control acceptable. Objective Vital Signs / I&O: Vital Signs 06/08/18 10:04 06/08/18 12:00 06/08/18 14:00 Temperature 98.1 F Pulse Rate 68 68 Respiratory Rate 15 Blood Pressure 129/58 L Pulse Oximetry 97 100 06/08/18 16:00 06/08/18 16:56 06/08/18 18:00 Temperature 98.4 F Pulse Rate 68 68 68 Respiratory Rate 13 10 L Blood Pressure 150/70 H Pulse Oximetry 99 06/08/18 20:00 06/08/18 20:54 06/08/18 22:00 Temperature 98.2 F Pulse Rate 71 66 66 Respiratory Rate 12 16 Blood Pressure 149/64 H Pulse Oximetry 95 98 06/09/18 00:00 06/09/18 02:00 06/09/18 04:00 Temperature 98.5 F 98.5 F Pulse Rate 65 64 64 Respiratory Rate 10 L 24 10 L Blood Pressure 139/63 118/56 L Pulse Oximetry 99 98 06/09/18 04:09 06/09/18 06:00 Temperature Pulse Rate 64 67 Respiratory Rate 16 Blood Pressure Pulse Oximetry Intake & Output 06/08/18 06/09/18 06/09/18 18:59 06:59 18:59 Intake Total 540 / 540 100 / 100 Output Total 20 20 Balance 520 / 520 100 / 100 Intake: IV 200 / 200 100 / 100 Ofirmev Inj 1,000 mg In 100 ml 200 / 200 100 / 100 @ 400 mls/hr IV.SIG Q8H PRN Rx# :[id number] Tube Feeding 220 / 220 Tube Irrigant 120 / 120 Output: Urine Amount (Catheter) Indwelling Urethral Catheter Other: # Voids 1 Date of Last Bowel Movement 06/08/18 06/08/18 # Bowel Movements 0 Result Diagrams: 06/08/18 04:10 06/09/18 04:20 Objective Remarks: GENERAL: 72-year-old male currently on NC, remains somnolent lethargic SKIN: Warm and dry. Excoriations on back, left knee anteriorly and right wrist , some swelling around the right and left wrist HEAD: Atraumatic. Normocephalic. EYES: Pupils equal and round bilaterally. No scleral icterus. No injection or drainage. ENT: No nasal bleeding or discharge. NECK: Trachea midline. Airway widely patent, no obstructive noises. CARDIOVASCULAR: S1-S2 , no gallop or murmur. Chronic A. fib, rate controlled RESPIRATORY: Air entry diminished bilaterally, comfortable pattern. No crackles. GASTROINTESTINAL: Abdomen soft, non-tender, obese, active bowel sounds. No guarding. MUSCULOSKELETAL: Extremities with pitting bilateral lower extremity edema. Right wrist tender slightly swollen, mild erythema NEUROLOGICAL: Patient maintains lethargic. Moves all extremities follows commands Assessment and Plan - Assessment and Plan Plan: Neuro/Psych: Acute encephalopathy likely toxic metabolic secondary to severe sepsis, uremia CVA Dementia disorder NOS Chronic benzodiazepine use History of diplopia Remains off all sedation. Goal of RASS -0 Worsening encephalopathy could be due to increasing BUN. CT brain on admission revealed no acute intracranial findings Continue pregabalin 75 mg twice daily for peripheral neuropathy. Holding alprazolam 0.25 mg 3 times daily for anxiety. Previously for possible seizure, loaded with Cerebyx. EEG moderate encephalopathy no seizures. Neuro following. Repeat Head CT negative for bleed. 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 fib with RVR, now off PO amiodarone 200 mg twice daily, Coreg 6.25 mg twice daily, and s/p IV digoxin 0.25 milligrams 1 06/06/18 2D echo 07/09 revealed EF of 40-45%. LV dilatation. PAP 31 mmHg. Basilar inferolateral and inferior lateral hypokinesis. Repeat echocardiogram: Moderate concentric left ventricular hypertrophy. LVEF 60-65%. Estimated PASP is 63.3 mmHg. [id number] pulmonary hypertension present (range 60-70 mmHg). Heart catheterization 09/08 revealed patent LAURA to LAD and SVG to RCA. 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 Aspirin 81 mg daily/home medication. Continue atorvastatin 40 mg daily for dyslipidemia Apixaban 2.5 mg twice daily on hold for HD catheter placement Holding diltiazem 120 mg daily, lisinopril 40 mg daily and metoprolol tartrate 100 mg twice daily/home medications Continue Bumex per nephrology Resp: Acute respiratory failure-extubated 06/04/18 History of WERNER History of COPD Prior history of tobaccoism Extubated 06/04 good oxygen saturation remains somnolent, lethargic. Patient is DNR/DNI Albuterol/ipratropium aerosols every 4 hours with albuterol aerosols every 2 hours as needed for dyspnea Holding Tiotropium 80 mg daily while on ipratropium GI: Gastroesophageal reflux disease history of gastric ulcer Constipation Hypoalbuminemia History of liver biopsy with diagnosis of cirrhosis? NPO per speech eval. Lansoprazole/sucralfate for GI prophylaxis. Polyethylene glycol 17 g twice daily for bowel regimen Continue NG for tube feeding Renal: Acute kidney injury in the setting of chronic kidney disease stage IV BPH status post TURP Abdomen/pelvis CT with nonobstructing right renal stone Nephrology following. Started on HD 06/06/18 1.3 L removed, 3L removed today 06/07 Monitor urine output with accurate I's and O's. History of nephrolithiasis status post right percutaneous lithotripsy 2004 Maintain Mansfield catheter for accurate I's and O's, convert to condom cath Endo: Diabetes mellitus 1.5 treat as 1.0 Hypothyroidism History of gout Sliding-scale insulin with aspart insulin/high regimen with Accu-Cheks every 4 hours to maintain euglycemia Continue levothyroxine Holding insulin glargine 25 units twice daily Heme: Leukocytosis Normocytic anemia/anemia of chronic kidney disease Chronic apixaban use 2.5 mg twice daily Apixaban 2.5 mg twice daily. Holding for invasive procedures Monitor CBC daily. Follow trends. No indication for transfusion of blood products at this time. Type and screen ID: Proteus UTI History of Enterococcus faecalis bacteremia History of staph saprophyticus urinary tract infection Continue ceftriaxone for Proteus UTI Infectious disease following. Received cefepime and gentamicin in the ED. CT abdomen/pelvis with nonobstructing right renal stone Holding doxycycline 100 mg twice daily/home medication Resume clotrimazole 1% to affected areas twice daily. Blood cultures 2 05/31 negative, Urine cultures with Proteus Influenza a and B negative. Legionella and pneumococcal urinary antigens negative MSK: Swollen tender right wrist -X-ray negative for fracture -Check venous ultrasound -Uric acid, sed rate, ESR -8 mg IV Decadron 1 -If above workup negative check MRI of the right wrist Access -Left subclavian CVL 05/31), removed today 06/08 Prophylaxis -GI -lansoprazole/sucralfate -DVT -SCD/apixaban will provide DVT prophylaxis. Holding apixaban for HD catheter insertion Palliative care following. DNR now Overall impression: Generally and extensively edematous, weak, lethargic elderly gentleman. Hemodialysis begun for end-stage renal disease. Were waiting to see if his sensorium will clear with removal of toxic metabolic products. He remains debilitated and frail.
[2018-06-09] MEDS: Sucralfate 1 GM Tablet PO SCH ×3 (11:46→16:26)
[2018-06-09] MEDS: Ferrrous Sulfate 300 MG/5 ML UDC PO SCH (12:07)
[2018-06-09] MEDS: Amiodarone 200 MG Tablet PO SCH ×2 (12:07→20:52)
[2018-06-09] MEDS: Ascorbic Acid 500 MG Tablet PO SCH (12:07)
[2018-06-09] MEDS: Pregabalin 75 MG Capsule PO SCH ×2 (12:07→20:52)
[2018-06-09] MEDS: Doxazosin 1 MG Tablet PO SCH (12:08)
[2018-06-09] MEDS: predniSONE 20 MG Tablet PO SCH (12:08)
[2018-06-09] MEDS: Carvedilol 6.25 MG Tablet PO SCH ×2 (12:08→20:52)
[2018-06-09] MEDS: Hypromellose 0.3% Opth Gel 10 GM Bottle EACH EYE SCH ×2 (12:10→20:53)
[2018-06-09] MEDS: Polyethylene Glycol 3350 17 GM Packet NG/OG SCH ×2 (12:10→20:52)
[2018-06-09] MEDS: Clotrimazole 1% Cream 15 GM Tube TOPICAL SCH ×2 (12:10→20:52)
--- NOTE | 2018-06-09 13:48 | P.PNNP ---
Subjective Interval history: Feels tired today, tolerating HD Physical Exam Vital signs: Vital Signs 06/08/18 14:00 06/08/18 16:00 06/08/18 16:56 Temperature 98.4 F Pulse Rate 68 68 68 Respiratory Rate 13 10 L Blood Pressure 150/70 H Pulse Oximetry 99 06/08/18 18:00 06/08/18 20:00 06/08/18 20:54 Temperature 98.2 F Pulse Rate 68 71 66 Respiratory Rate 12 16 Blood Pressure 149/64 H Pulse Oximetry 95 98 06/08/18 22:00 06/09/18 00:00 06/09/18 02:00 Temperature 98.5 F Pulse Rate 66 65 64 Respiratory Rate 10 L 24 Blood Pressure 139/63 Pulse Oximetry 99 06/09/18 04:00 06/09/18 04:09 06/09/18 06:00 Temperature 98.5 F Pulse Rate 64 64 67 Respiratory Rate 10 L 16 Blood Pressure 118/56 L Pulse Oximetry 98 06/09/18 12:38 Temperature Pulse Rate 114 H Respiratory Rate 17 Blood Pressure Pulse Oximetry 100 Intake & Output 06/08/18 06/09/18 06/09/18 18:59 06:59 18:59 Intake Total 540 / 540 100 / 100 Output Total 20 / 20 4000 / 4000 Balance 520 / 520 100 / 100 -4000 / -4000 Intake: IV 200 / 200 100 / 100 Ofirmev Inj 1,000 mg In 100 ml 200 / 200 100 / 100 @ 400 mls/hr IV.SIG Q8H PRN Rx# :[id number] Tube Feeding 220 / 220 Tube Irrigant 120 / 120 Output: Hemodialysis Amount 4000 / 4000 Urine Amount (Catheter) 20 / 20 Indwelling Urethral Catheter Other: # Voids 1 Date of Last Bowel Movement 06/08/18 06/08/18 # Bowel Movements 0 - Constitutional no acute distress - Routine HEENT Exam Head: Present: normocephalic - Routine Neck Exam Present: supple - Routine Respiratory Exam Present: decreased breath sounds - Routine Cardiovascular Exam Present: RRR - Routine Abdominal Exam Present: soft - Routine Skin Exam Present: intact - Routine Neurological Exam Present: alert - Detailed Neurological Exam: Coma Scale Eye Opening: Spontaneous - Routine Psychiatric Exam Present: normal affect - Urinary Catheter Management Coude Cath placed during this visit: yes, but has since been removed by the nurse Reason for continuing: Hourly intake/output Insertion date: 05/31/18 Insertion time: 23:00 Removal date: 06/08/18 Removal time: 14:30 Indwelling Urethral Catheter Cath placed during this visit: yes, but has since been removed by the nurse Reason for continuing: Decision to DC catheter Removal date: 06/08/18 Removal time: 14:30 Assessment and Plan - Assessment (1) Acute on chronic kidney failure Code(s): N17.9 - Acute kidney failure, unspecified; N18.9 - Chronic kidney disease, unspecified Status: Acute Qualifiers: Acute renal failure type: unspecified Chronic kidney disease stage: stage 3 (moderate) Qualified Code(s): N17.9 - Acute kidney failure, unspecified; N18.3 - Chronic kidney disease, stage 3 (moderate) Plan: His baseline is 2.5-2.7 (CKD 3-4). He may have underlying diabetic nephropathy. Follows with Dr. Phillip in [place]. Oliguric renal failure, ATN Vascath placed and HD started 06/06. Now on TTS HD: HD done today, with 4L UF. Plan next HD Monday with UF as tolerated. Obtain daily labs Avoid nephrotoxic agents Avoid IVF. Monitor for signs of renal recovery. Palliative has met with the son. He would like to see if HD improves his mentation before making decision to go with hospice. (2) Acute alteration in mental status Code(s): R41.82 - Altered mental status, unspecified Status: Acute Plan: Most likely is due to uremia, infection. Alert today (3) Septic shock Code(s): A41.9 - Sepsis, unspecified organism; R65.21 - Severe sepsis with septic shock Status: Acute Plan: He is off antibiotics per ID. continue supportive care He was treated for UTI and pneumonia. On contact isolation. (4) Diabetes mellitus Code(s): E11.9 - Type 2 diabetes mellitus without complications Status: Acute Plan: Maintain blood glucose 140-180 mg/dL while admitted. On tube feeding.
[2018-06-09] MEDS: Acetaminophen-HYDROcodone 325/7.5 Liq 15 ML UDC NG/OG PRN (16:26)
[2018-06-10] MEDS: Insulin NovoLOG Aspart Correctional Sugar Inj SQ SCH ×5 (00:23→21:41)
[2018-06-10] MEDS: Oral Hygiene Kit OROPHARYNG SCH ×4 (00:24→17:41)
[2018-06-10] MEDS: Acetaminophen-HYDROcodone 325/7.5 Liq 15 ML UDC NG/OG PRN ×4 (00:53→21:45)
[2018-06-10] MEDS: Levothyroxine 75 MCG Tablet PO SCH (05:28)
[2018-06-10] MEDS: Levothyroxine 100 MCG Tablet PO SCH (05:28)
[2018-06-10 05:51] LABS: Calcium 8.2 mg/dL (8.5-10.1); Carbon Dioxide 26.7 meq/L (21.0-32.0); Phosphorus 4.6 mg/dL (2.5-4.9); Potassium 4.6 meq/L (3.5-5.1)
--- NOTE | 2018-06-10 07:59 | P.PNCC ---
Subjective Subjective Remarks/Hospital Course: 05/31: This is a 72-year-old male. He is a resident of [facility] [place] Date of admission 05/30/2018. Originally admitted to hospitalist service and now under our service 05/31/2018. Past medical history includes fibromyalgia, dementia, history of CVA, obstructive sleep apnea, atrial fibrillation/chronic, COPD, chronic kidney disease stage IV, BPH, diabetes mellitus, elevated BMI, atherosclerotic vascular disease, nephrolithiasis, liver cirrhosis, essential hypertension, hyperlipidemia, gout, history of right ice C occlusion, hypothyroidism, dysphagia, constipation, diplopia, CABG 2, TURP, cardiac stent, right percutaneous lithotripsy, liver biopsy and bilateral hand surgery. Patient is also on chronic benzodiazepines. Patient presented to [facility] on 05/30/2018 with history of being found on the floor between his bed in the window. His head was against the dresser. He was able to tell if he hit his head. There is a large amount about was in the floor but not bleeding from the head. He has excoriations on his back and his left knee and right wrist. CT brain at this facility was negative. Patient is on apixaban and aspirin at home. Patient was noted to have a urinary tract infection was started on cefepime and gentamicin by ED physician. Throughout the night, patient became more confused and is found to be obtunded earlier this morning was intubated and centralized placed due to hypotension. He is currently on norepinephrine drip at 12 mcg/min. Troponin was 0.05. Patient had a leukocytosis, normocytic anemia, creatinine 6.6/ baseline around 2.5 and TSH is 0.356. We are asked to admit the patient at this time. He is currently intubated and arousable in room C 25 in ED. No family available. 06/01: Remains sedated, orally intubated on mechanical ventilation. Had generalized tonic-clonic movements which were questionable last night for which he was given Ativan 4 mg IV and loaded with Cerebyx. EEG this morning pending. Neurology consult noted. Head CT negative for bleed. Negligible urine output. Worsening BUN/creatinine. On vasopressin low-dose currently, off all other pressors. 06/02: Remains sedated, arousable, orally intubated on mechanical ventilation. Not following commands unenlightening sedation. 06/03: Arouses off sedation, not following commands. Orally intubated on mechanical ventilation. On CPAP trials. 06/04: More awake today tracking. Intermittently follows commands on upper and lower extremities. Remains on Sujit-Synephrine and vasopressin. Also change amiodarone to p.o. BUN climbing 104 today, creatinine stable at 5.7. May need to start hemodialysis will discuss with nephrology 06/05: Patient was extubated yesterday, breathing well respiratory graf tolerating. Remains confused but follows commands continues to have some garbled speech. Creatinine is 5.65 BUN 108 today. Still making urine nephrology wants to hold off HD another day and monitor. UO 1.1 L in 24 hours 06/06: Patient is more critical today. He is more lethargic with worsening uremia BUN 124 creatinine 6.5. If family agreeable with hemodialysis I will place a Vas-Cath today. Give 1 dose of digoxin, start Coreg 6.25 mg twice daily , and restart p.o. amiodarone to wean off amiodarone infusion. 06/07: Started on hemodialysis yesterday, 1.3 L removed. Currently receiving hemodialysis heart rate better controlled in mid 80s. P.o. amiodarone and Coreg started yesterday. Right wrist remains swollen tender. XR negative. 06/08: Breathing comfortably. CXR clear. Remains edematous in both arms. Will remove central line.. Tolerating beta-alton now. 06/09: Tolerating hemodialysis this morning. Heart rate control acceptable. 06/10: Remains generally edematous. Dialysis successfully removing volume. He has failed swallow eval several days now. Complains of sore throat today. Objective Vital Signs / I&O: Vital Signs 06/09/18 08:00 06/09/18 10:00 06/09/18 12:00 Temperature 98.7 F 98.6 F Pulse Rate 70 80 96 H Respiratory Rate 15 15 Blood Pressure 167/73 H 111/54 L Pulse Oximetry 100 98 06/09/18 12:38 06/09/18 14:00 06/09/18 16:00 Temperature Pulse Rate 114 H 98 H 80 Respiratory Rate 17 Blood Pressure Pulse Oximetry 100 06/09/18 17:36 06/09/18 20:00 06/09/18 20:24 Temperature 98.1 F Pulse Rate 80 78 80 Respiratory Rate 12 20 15 Blood Pressure 131/61 Pulse Oximetry 98 98 06/09/18 22:00 06/10/18 00:00 06/10/18 02:00 Temperature 98.4 F Pulse Rate 77 80 70 Respiratory Rate 25 H Blood Pressure 128/80 Pulse Oximetry 100 06/10/18 04:00 06/10/18 04:07 06/10/18 06:00 Temperature 97.8 F Pulse Rate 68 70 72 Respiratory Rate 9 L 15 Blood Pressure 156/56 H Pulse Oximetry Intake & Output 06/09/18 06/10/18 06/10/18 18:59 06:59 18:59 Intake Total 488 / 488 Output Total 4000 / 4000 0 / 0 Balance -4000 / -4000 488 / 488 Intake: Tube Feeding 488 / 488 Output: Urine 0 / 0 Hemodialysis Amount 4000 / 4000 Other: Date of Last Bowel Movement 06/08/18 06/08/18 # Bowel Movements 0 Result Diagrams: 06/08/18 04:10 06/10/18 04:37 Objective Remarks: GENERAL: 72-year-old male currently on NC SKIN: Warm and dry. Some swelling around the right and left wrist HEAD: Atraumatic. Normocephalic. EYES: Pupils equal and round bilaterally. No scleral icterus. No injection or drainage. ENT: No nasal bleeding or discharge. NECK: Trachea midline. Airway widely patent, no obstructive noises. CARDIOVASCULAR: S1-S2 , no gallop or murmur. Chronic A. fib, rate controlled RESPIRATORY: Air entry diminished bilaterally, comfortable pattern. No crackles. GASTROINTESTINAL: Abdomen soft, non-tender, obese, active bowel sounds. No guarding. MUSCULOSKELETAL: Extremities with pitting bilateral lower extremity edema. Right wrist tender slightly swollen, mild erythema NEUROLOGICAL: Patient maintains lethargic. Moves all extremities follows commands Assessment and Plan - Assessment and Plan Plan: Neuro/Psych: Acute encephalopathy likely toxic metabolic secondary to severe sepsis, uremia CVA Dementia disorder NOS Chronic benzodiazepine use History of diplopia Remains off all sedation. Goal of RASS -0 Worsening encephalopathy could be due to increasing BUN. CT brain on admission revealed no acute intracranial findings Continue pregabalin 75 mg twice daily for peripheral neuropathy. Holding alprazolam 0.25 mg 3 times daily for anxiety. Previously for possible seizure, loaded with Cerebyx. EEG moderate encephalopathy no seizures. Neuro following. Repeat Head CT negative for bleed. 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 fib with RVR, now off PO amiodarone 200 mg twice daily, Coreg 6.25 mg twice daily, and s/p IV digoxin 0.25 milligrams 1 06/06/18 2D echo 07/09 revealed EF of 40-45%. LV dilatation. PAP 31 mmHg. Basilar inferolateral and inferior lateral hypokinesis. Repeat echocardiogram: Moderate concentric left ventricular hypertrophy. LVEF 60-65%. Estimated PASP is 63.3 mmHg. [id number] pulmonary hypertension present (range 60-70 mmHg). Heart catheterization 09/08 revealed patent LAURA to LAD and SVG to RCA. 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 Aspirin 81 mg daily/home medication. Continue atorvastatin 40 mg daily for dyslipidemia Apixaban 2.5 mg twice daily on hold for HD catheter placement Holding diltiazem 120 mg daily, lisinopril 40 mg daily and metoprolol tartrate 100 mg twice daily/home medications Continue Bumex per nephrology Resp: Acute respiratory failure-extubated 06/04/18 History of WERNER History of COPD Prior history of tobaccoism Extubated 06/04 good oxygen saturation remains somnolent, lethargic. Patient is DNR/DNI Albuterol/ipratropium aerosols every 4 hours with albuterol aerosols every 2 hours as needed for dyspnea Holding Tiotropium 80 mg daily while on ipratropium GI: Gastroesophageal reflux disease history of gastric ulcer Constipation Hypoalbuminemia History of liver biopsy with diagnosis of cirrhosis? NPO per speech eval. Lansoprazole/sucralfate for GI prophylaxis. Polyethylene glycol 17 g twice daily for bowel regimen Continue NG for tube feeding Renal: Acute kidney injury in the setting of chronic kidney disease stage IV BPH status post TURP Abdomen/pelvis CT with nonobstructing right renal stone Nephrology following. Started on HD 06/06/18 1.3 L removed, 3L removed today 06/07 Monitor urine output with accurate I's and O's. History of nephrolithiasis status post right percutaneous lithotripsy 2004 Maintain [place] catheter for accurate I's and O's, convert to condom cath Endo: Diabetes mellitus 1.5 treat as 1.0 Hypothyroidism History of gout Sliding-scale insulin with aspart insulin/high regimen with Accu-Cheks every 4 hours to maintain euglycemia Continue levothyroxine Holding insulin glargine 25 units twice daily Heme: Leukocytosis Normocytic anemia/anemia of chronic kidney disease Chronic apixaban use 2.5 mg twice daily Apixaban 2.5 mg twice daily. Holding for invasive procedures Monitor CBC daily. Follow trends. No indication for transfusion of blood products at this time. Type and screen ID: Proteus UTI History of Enterococcus faecalis bacteremia History of staph saprophyticus urinary tract infection Continue ceftriaxone for Proteus UTI Infectious disease following. Received cefepime and gentamicin in the ED. CT abdomen/pelvis with nonobstructing right renal stone Holding doxycycline 100 mg twice daily/home medication Resume clotrimazole 1% to affected areas twice daily. Blood cultures 2 05/31 negative, Urine cultures with Proteus Influenza a and B negative. Legionella and pneumococcal urinary antigens negative MSK: Swollen tender right wrist -X-ray negative for fracture Access -Left subclavian CVL 05/31), removed 06/08 Prophylaxis -GI -lansoprazole/sucralfate -DVT -SCD/apixaban will provide DVT prophylaxis. Holding apixaban for HD catheter insertion Palliative care following. DNR now Overall impression: Generally and extensively edematous, weak, lethargic elderly gentleman. Hemodialysis begun for end-stage renal disease. We're waiting to see if his sensorium clears with removal of toxic metabolic products. He remains debilitated and frail.
[2018-06-10] MEDS: Sucralfate 1 GM Tablet PO SCH ×3 (08:36→17:40)
[2018-06-10] MEDS: Polyethylene Glycol 3350 17 GM Packet NG/OG SCH ×2 (08:36→21:48)
[2018-06-10] MEDS: Amiodarone 200 MG Tablet PO SCH ×2 (08:36→21:46)
[2018-06-10] MEDS: Doxazosin 1 MG Tablet PO SCH (08:36)
[2018-06-10] MEDS: Pregabalin 75 MG Capsule PO SCH ×2 (08:36→21:47)
[2018-06-10] MEDS: Ascorbic Acid 500 MG Tablet PO SCH (08:36)
[2018-06-10] MEDS: Ferrrous Sulfate 300 MG/5 ML UDC PO SCH (08:36)
[2018-06-10] MEDS: Carvedilol 6.25 MG Tablet PO SCH ×2 (08:36→21:47)
[2018-06-10] MEDS: Hypromellose 0.3% Opth Gel 10 GM Bottle EACH EYE SCH ×2 (08:37→21:47)
[2018-06-10] MEDS: predniSONE 20 MG Tablet PO SCH (08:37)
[2018-06-10] MEDS: Clotrimazole 1% Cream 15 GM Tube TOPICAL SCH ×2 (08:38→21:47)
[2018-06-10] MEDS: Nystatin/Diphenhydramine/Lidocaine Mouthwash (Adult) 120 ML Botttle SWISH-SWAL SCH ×4 (11:26→21:47)
--- NOTE | 2018-06-10 12:57 | P.PNNP ---
Subjective Interval history: lethargic, no acute issues Physical Exam Vital signs: Vital Signs 06/09/18 14:00 06/09/18 16:00 06/09/18 17:36 Temperature Pulse Rate 98 H 80 80 Respiratory Rate 12 Blood Pressure Pulse Oximetry 06/09/18 20:00 06/09/18 20:24 06/09/18 22:00 Temperature 98.1 F Pulse Rate 78 80 77 Respiratory Rate 20 15 Blood Pressure 131/61 Pulse Oximetry 98 98 06/10/18 00:00 06/10/18 02:00 06/10/18 04:00 Temperature 98.4 F 97.8 F Pulse Rate 80 70 68 Respiratory Rate 25 H 9 L Blood Pressure 128/80 156/56 H Pulse Oximetry 100 06/10/18 04:07 06/10/18 06:00 06/10/18 08:47 Temperature Pulse Rate 70 72 68 Respiratory Rate 15 17 Blood Pressure Pulse Oximetry 100 06/10/18 10:06 Temperature Pulse Rate Respiratory Rate 21 Blood Pressure Pulse Oximetry Intake & Output 06/09/18 06/10/18 06/10/18 18:59 06:59 18:59 Intake Total 488 / 488 Output Total 4000 / 4000 0 / 0 Balance -4000 / -4000 488 / 488 Intake: Tube Feeding 488 / 488 Output: Urine 0 / 0 Hemodialysis Amount 4000 / 4000 Other: Date of Last Bowel Movement 06/08/18 06/08/18 # Bowel Movements 0 - Constitutional no acute distress - Routine HEENT Exam Head: Present: normocephalic Eye: Present: EOMI ENT: Present: mucous membranes moist - Routine Neck Exam Present: supple - Routine Respiratory Exam Present: decreased breath sounds - Routine Cardiovascular Exam Present: RRR - Routine Abdominal Exam Present: soft - Routine Extremities Exam Present: edema - Routine Skin Exam Present: intact - Routine Neurological Exam Present: alert - Detailed Neurological Exam: Coma Scale Eye Opening: Spontaneous - Routine Psychiatric Exam Present: unable to assess - Urinary Catheter Management Coude Cath placed during this visit: yes, but has since been removed by the nurse Reason for continuing: Hourly intake/output Insertion date: 05/31/18 Insertion time: 23:00 Removal date: 06/08/18 Removal time: 14:30 Indwelling Urethral Catheter Cath placed during this visit: yes, but has since been removed by the nurse Reason for continuing: Decision to DC catheter Removal date: 06/08/18 Removal time: 14:30 Assessment and Plan - Assessment (1) Acute on chronic kidney failure Code(s): N17.9 - Acute kidney failure, unspecified; N18.9 - Chronic kidney disease, unspecified Status: Acute Qualifiers: Acute renal failure type: unspecified Chronic kidney disease stage: stage 3 (moderate) Qualified Code(s): N17.9 - Acute kidney failure, unspecified; N18.3 - Chronic kidney disease, stage 3 (moderate) Plan: His baseline is 2.5-2.7 (CKD 3-4). He may have underlying diabetic nephropathy. Follows with Dr. Phillip in [place]. Oliguric renal failure, ATN Vascath placed and HD started 06/06. Now on TTS HD: HD yesterday, with 4L UF. Plan next HD Monday with UF as tolerated. Obtain daily labs Avoid nephrotoxic agents Avoid IVF. Monitor for signs of renal recovery. Palliative has met with the son. He would like to see if HD improves his mentation before making decision to go with hospice. (2) Acute alteration in mental status Code(s): R41.82 - Altered mental status, unspecified Status: Acute Plan: Most likely is due to uremia, infection. somewhat alert today (3) Septic shock Code(s): A41.9 - Sepsis, unspecified organism; R65.21 - Severe sepsis with septic shock Status: Acute Plan: He is off antibiotics per ID. continue supportive care He was treated for UTI and pneumonia. On contact isolation. (4) Diabetes mellitus Code(s): E11.9 - Type 2 diabetes mellitus without complications Status: Acute Plan: Maintain blood glucose 140-180 mg/dL while admitted. On tube feeding.
[2018-06-11] MEDS: Insulin NovoLOG Aspart Correctional Sugar Inj SQ SCH ×8 (00:22→23:26)
[2018-06-11] MEDS: Oral Hygiene Kit OROPHARYNG SCH ×4 (00:24→16:42)
[2018-06-11 05:05] LABS: Albumin 2.2 g/dL (3.4-5.0); Calcium 8.3 mg/dL (8.5-10.1); Carbon Dioxide 27.9 meq/L (21.0-32.0); Phosphorus 5.5 mg/dL (2.5-4.9); Potassium 4.5 meq/L (3.5-5.1)
[2018-06-11] MEDS: Levothyroxine 100 MCG Tablet PO SCH (05:51)
[2018-06-11] MEDS: Levothyroxine 75 MCG Tablet PO SCH (05:53)
[2018-06-11] MEDS: Nystatin/Diphenhydramine/Lidocaine Mouthwash (Adult) 120 ML Botttle SWISH-SWAL SCH ×4 (09:14→21:57)
[2018-06-11] MEDS: Acetaminophen-HYDROcodone 325/7.5 Liq 15 ML UDC NG/OG PRN ×2 (09:18→16:56)
[2018-06-11] MEDS: Sucralfate 1 GM Tablet PO SCH ×3 (09:19→16:42)
[2018-06-11] MEDS: Amiodarone 200 MG Tablet PO SCH ×2 (09:20→21:08)
[2018-06-11] MEDS: Carvedilol 6.25 MG Tablet PO SCH ×2 (09:20→21:08)
[2018-06-11] MEDS: Doxazosin 1 MG Tablet PO SCH (09:20)
[2018-06-11] MEDS: Ferrrous Sulfate 300 MG/5 ML UDC PO SCH (09:20)
[2018-06-11] MEDS: predniSONE 20 MG Tablet PO SCH (09:20)
[2018-06-11] MEDS: Pregabalin 75 MG Capsule PO SCH ×2 (09:21→21:08)
[2018-06-11] MEDS: Clotrimazole 1% Cream 15 GM Tube TOPICAL SCH ×2 (09:21→21:08)
[2018-06-11] MEDS: Polyethylene Glycol 3350 17 GM Packet NG/OG SCH ×2 (09:21→21:58)
[2018-06-11] MEDS: Ascorbic Acid 500 MG Tablet PO SCH (09:22)
--- NOTE | 2018-06-11 12:27 | P.PNNP ---
Subjective Interval history: Awake, confused. He is anuric. <Devi Iqbal - Last Filed: 06/11/18 12:24> Physical Exam Vital signs: Vital Signs 06/10/18 14:00 06/10/18 15:55 06/10/18 16:00 Temperature 98.3 F Pulse Rate 62 70 68 Respiratory Rate 17 9 L Blood Pressure 129/87 Pulse Oximetry 06/10/18 18:00 06/10/18 20:00 06/10/18 20:46 Temperature 98.7 F Pulse Rate 68 67 Respiratory Rate Blood Pressure 147/85 H Pulse Oximetry 99 98 06/10/18 20:47 06/10/18 21:42 06/10/18 22:00 Temperature Pulse Rate 66 66 Respiratory Rate 16 14 Blood Pressure Pulse Oximetry 06/11/18 00:00 06/11/18 02:00 06/11/18 03:30 Temperature 98.6 F Pulse Rate 60 57 L 58 L Respiratory Rate 16 16 Blood Pressure 86/53 L Pulse Oximetry 100 06/11/18 04:00 06/11/18 06:00 06/11/18 09:00 Temperature 98.8 F Pulse Rate 60 69 60 Respiratory Rate 12 12 Blood Pressure 159/67 H Pulse Oximetry 98 06/11/18 10:24 Temperature Pulse Rate Respiratory Rate Blood Pressure Pulse Oximetry 98 Intake & Output 06/10/18 06/11/18 06/11/18 18:59 06:59 18:59 Intake Total 548 / 548 548 / 548 340 / 340 Output Total 0 / 0 4220 / 4220 Balance 548 / 548 -3672 / -3672 340 / 340 Weight 122.9 kg Intake: IV 100 / 100 Ofirmev Inj 1,000 mg In 100 ml 100 / 100 @ 400 mls/hr IV.SIG Q8H PRN Rx# :[id number] Oral 0 / 0 0 / 0 Tube Feeding 428 / 428 428 / 428 Tube Irrigant 120 / 120 120 / 120 Water Bolus Amount 240 / 240 Output: Urine 0 / 0 0 / 0 Stool 0 / 0 Hemodialysis Amount 4000 / 4000 Urine Amount (Catheter) 220 / 220 Coude 200 / 200 Indwelling Urethral Catheter Other: # Voids 1 1 Date of Last Bowel Movement 06/10/18 06/10/18 06/10/18 # Bowel Movements 1 1 # Incontinent Bowel Movements 0 - Constitutional no acute distress, morbidly obese, disheveled - Routine HEENT Exam Head: Present: normocephalic Comments: NG tube - Routine Neck Exam Present: supple, full ROM, JVD - Routine Respiratory Exam Present: distant breath sounds. Absent: accessory muscle use, rhonchi - Routine Cardiovascular Exam Present: RRR, S1, S2 - Routine Abdominal Exam Present: soft, normoactive bowel sounds - Routine Extremities Exam Present: edema, pulses intact - Routine Skin Exam Present: intact, dry, warm - Routine Neurological Exam Present: alert, moving all extremities - Detailed Neurological Exam: Coma Scale Eye Opening: Spontaneous Verbal Response: Confused Motor Response: Obey commands [employer] Coma Scale Total: 14 - Routine Psychiatric Exam Present: unable to assess - Urinary Catheter Management Coude Cath placed during this visit: yes, but has since been removed by the nurse Reason for continuing: Hourly intake/output Insertion date: 05/31/18 Insertion time: 23:00 Removal date: 06/08/18 Removal time: 14:30 Indwelling Urethral Catheter Cath placed during this visit: yes, but has since been removed by the nurse Reason for continuing: Decision to DC catheter Removal date: 06/08/18 Removal time: 14:30 <Devi Iqbal - Last Filed: 06/11/18 12:24> Vital signs: Vital Signs 06/11/18 12:00 06/11/18 14:00 06/11/18 14:58 Temperature 98.0 F Pulse Rate 58 L 64 67 Respiratory Rate 24 14 Blood Pressure 146/90 H Pulse Oximetry 95 06/11/18 16:00 06/11/18 17:27 06/11/18 18:00 Temperature 98.1 F Pulse Rate 62 75 Respiratory Rate 10 L 10 L Blood Pressure 108/52 L Pulse Oximetry 92 L 06/11/18 20:00 06/11/18 20:54 06/11/18 22:00 Temperature 98.2 F Pulse Rate 75 71 Respiratory Rate 16 Blood Pressure 119/56 L Pulse Oximetry 95 96 06/12/18 00:00 06/12/18 01:49 06/12/18 02:00 Temperature 97 F L Pulse Rate 58 L 61 Respiratory Rate 15 14 Blood Pressure 163/71 H Pulse Oximetry 94 L 100 06/12/18 04:00 06/12/18 06:00 06/12/18 07:46 Temperature 97.7 F Pulse Rate 62 59 L Respiratory Rate 16 Blood Pressure 133/61 Pulse Oximetry 100 98 06/12/18 08:00 06/12/18 08:14 06/12/18 10:00 Temperature 97.8 F Pulse Rate 65 68 Respiratory Rate 19 Blood Pressure 130/60 Pulse Oximetry 97 97 06/12/18 10:10 Temperature Pulse Rate Respiratory Rate 18 Blood Pressure Pulse Oximetry Intake & Output 06/11/18 06/12/18 06/12/18 18:59 06:59 18:59 Intake Total 1411 / 1411 360 / 360 Output Total 4500 / 4500 Balance -3089 / -3089 360 / 360 Weight 122.4 kg Intake: IV 100 / 100 Ofirmev Inj 1,000 mg In 100 ml 100 / 100 @ 400 mls/hr IV.SIG Q8H PRN Rx# :[id number] Oral 300 / 300 360 / 360 Tube Feeding 681 / 681 Water Bolus Amount 330 / 330 Output: Hemodialysis Amount 4500 / 4500 Other: # Voids 1 # Incontinent Voids 1 Date of Last Bowel Movement 06/10/18 06/11/18 06/10/18 - Urinary Catheter Management Coude Cath placed during this visit: no Indwelling Urethral Catheter Cath placed during this visit: no <Norman Tabares - Last Filed: 06/12/18 11:12> Assessment and Plan - Assessment (1) Acute on chronic kidney failure Code(s): N17.9 - Acute kidney failure, unspecified; N18.9 - Chronic kidney disease, unspecified Status: Acute Plan: His baseline is 2.5-2.7 (CKD 3-4). He may have underlying diabetic nephropathy. Follows with Dr. Phillip in [place]. Oliguric renal failure, ATN Vascath placed and HD started 06/06. Was on TTS HD, however his BUN is 90 and he has edema. We will dialyze today and most likey MWF. Avoid IVF administration. On Nepro tube feeding. Obtain daily labs Avoid nephrotoxic agents Monitor for signs of renal recovery. We will hold Eliquis in anticipation of Permcath exchange later in the week. Palliative has met with the son. He would like to see if HD improves his mentation before making decision to go with hospice. (2) Acute alteration in mental status Code(s): R41.82 - Altered mental status, unspecified Status: Acute Plan: Most likely is due to uremia, infection. somewhat alert today (3) Septic shock Code(s): A41.9 - Sepsis, unspecified organism; R65.21 - Severe sepsis with septic shock Status: Acute Plan: He is off antibiotics per ID. continue supportive care He was treated for UTI and pneumonia. On contact isolation. (4) Diabetes mellitus Code(s): E11.9 - Type 2 diabetes mellitus without complications Status: Acute Plan: Maintain blood glucose 140-180 mg/dL while admitted. On tube feeding. <Devi Iqbal - Last Filed: 06/11/18 12:24> - Assessment (1) Acute on chronic kidney failure Code(s): N17.9 - Acute kidney failure, unspecified; N18.9 - Chronic kidney disease, unspecified Status: Acute Qualifiers: Acute renal failure type: unspecified Chronic kidney disease stage: stage 3 (moderate) Qualified Code(s): N17.9 - Acute kidney failure, unspecified; N18.3 - Chronic kidney disease, stage 3 (moderate) (2) Acute alteration in mental status Code(s): R41.82 - Altered mental status, unspecified Status: Acute (3) Septic shock Code(s): A41.9 - Sepsis, unspecified organism; R65.21 - Severe sepsis with septic shock Status: Acute (4) Diabetes mellitus Code(s): E11.9 - Type 2 diabetes mellitus without complications Status: Acute - Attending Attestation patient was seen and examined. Agree with above assessment and plan. Dialysis will be MWF. <Norman Tabares - Last Filed: 06/12/18 11:12>
--- NOTE | 2018-06-11 12:30 | P.PNID ---
Subjective Remarks: Notes reviewed. Patient is very alert and interactive. He is conversing a friend at bedside. Has some difficulty with word finding. Complains of pain in the right wrist and right knee. On room air. Afebrile. Past swallow evaluation test. HISTORY OF PRESENT ILLNESS: This is a 72-year-old white male who was brought to the emergency department from [facility] with altered mental status. He was intubated in the emergency department and is currently on the ventilator. He had a decreased blood pressure, as well as increased respiratory rate and was bradycardic and hypothermic with temperature of 94.6 degrees. He had marked decreased urine output and is in acute renal failure. ID consulted for severe sepsis, history of Escherichia faecalis bacteremia, Staphylococcus urinary tract infection. Assist with antibiotic management. Past Medical History: PAST MEDICAL HISTORY: Dementia, diabetes mellitus, hypertension, hypothyroidism, hyperlipidemia, fibromyalgia, benign prostatic hypertrophy, chronic kidney disease stage IV, chronic obstructive pulmonary disease, coronary artery disease, nephrolithiasis, non-ST elevated myocardial infarction, post-traumatic stress disorder, history of nephrostomy, history of coronary stents, history of TURP. Allergies/Adverse Reactions: Allergies ciprofloxacin Allergy (Severe, Verified 05/30/18 23:15) Itching diatrizoate meglumine Allergy (Severe, Verified 05/30/18 23:15) Itching gadobenic acid Allergy (Severe, Verified 05/30/18 23:15) Itching gadodiamide Allergy (Severe, Verified 05/30/18 23:15) Itching gadoteridol Allergy (Severe, Verified 05/30/18 23:15) Itching iodixanol Allergy (Severe, Verified 05/30/18 23:15) Itching iohexol Allergy (Severe, Verified 05/30/18 23:15) Itching levofloxacin Allergy (Severe, Verified 05/30/18 23:15) Itching celecoxib [From Celebrex] Allergy (Unknown, Verified 05/30/18 23:15) Itching ezetimibe [From Zetia] Allergy (Unknown, Verified 05/30/18 23:15) Itching prochlorperazine [From Compazine] Allergy (Unknown, Verified 05/10/18 20:51) Itching red dye Allergy (Unknown, Verified 05/10/18 20:51) Itching Objective Vital Signs 06/10/18 14:00 06/10/18 15:55 06/10/18 16:00 Temperature 98.3 F Pulse Rate 62 70 68 Respiratory Rate 17 9 L Blood Pressure 129/87 Pulse Oximetry 06/10/18 18:00 06/10/18 20:00 06/10/18 20:46 Temperature 98.7 F Pulse Rate 68 67 Respiratory Rate Blood Pressure 147/85 H Pulse Oximetry 99 98 06/10/18 20:47 06/10/18 21:42 06/10/18 22:00 Temperature Pulse Rate 66 66 Respiratory Rate 16 14 Blood Pressure Pulse Oximetry 06/11/18 00:00 06/11/18 02:00 06/11/18 03:30 Temperature 98.6 F Pulse Rate 60 57 L 58 L Respiratory Rate 16 16 Blood Pressure 86/53 L Pulse Oximetry 100 06/11/18 04:00 06/11/18 06:00 06/11/18 09:00 Temperature 98.8 F Pulse Rate 60 69 60 Respiratory Rate 12 12 Blood Pressure 159/67 H Pulse Oximetry 98 06/11/18 10:24 Temperature Pulse Rate Respiratory Rate Blood Pressure Pulse Oximetry 98 Intake & Output 06/10/18 06/11/18 06/11/18 18:59 06:59 18:59 Intake Total 548 / 548 548 / 548 340 / 340 Output Total 0 / 0 4220 / 4220 Balance 548 / 548 -3672 / -3672 340 / 340 Weight 122.9 kg Intake: IV 100 / 100 Ofirmev Inj 1,000 mg In 100 ml 100 / 100 @ 400 mls/hr IV.SIG Q8H PRN Rx# :[id number] Oral 0 / 0 0 / 0 Tube Feeding 428 / 428 428 / 428 Tube Irrigant 120 / 120 120 / 120 Water Bolus Amount 240 / 240 Output: Urine 0 / 0 0 / 0 Stool 0 / 0 Hemodialysis Amount 4000 / 4000 Urine Amount (Catheter) 220 / 220 Coude 200 / 200 Indwelling Urethral Catheter Other: # Voids 1 1 Date of Last Bowel Movement 06/10/18 06/10/18 06/10/18 # Bowel Movements 1 1 # Incontinent Bowel Movements 0 Lab - Chemistry Results 06/10/18 06/10/18 06/10/18 00:06 04:04 04:37 Sodium 140 Potassium 4.6 Chloride 101 Carbon Dioxide 26.7 Anion Gap 12 BUN 73 H Creatinine 6.02 H Estimated GFR 9 L POC Glucose 293 H 214 H Random Glucose 208 H Calcium 8.2 L Phosphorus 4.6 Albumin 2.0 L 06/10/18 06/10/18 06/11/18 17:53 22:52 03:24 Sodium 140 Potassium 4.5 Chloride 100 Carbon Dioxide 27.9 Anion Gap 12 BUN 90 H Creatinine 7.45 H Estimated GFR 7 L POC Glucose 166 H 377 H Random Glucose 152 H Calcium 8.3 L Phosphorus 5.5 H Albumin 2.2 L 06/11/18 06/11/18 04:17 08:04 Sodium Potassium Chloride Carbon Dioxide Anion Gap BUN Creatinine Estimated GFR POC Glucose 161 H 188 H Random Glucose Calcium Phosphorus Albumin Imaging: ITS Impressions Abdomen/Pelvis CT 05/31/18 00:00 CONCLUSION: 1. No acute abnormality. 2. 7 mm nonobstructing right renal stone. 3. Small bilateral pleural effusions with bibasilar consolidations. This is more pronounced than typical passive atelectasis. Infectious etiology versus pulmonary edema. Head CT 05/31/18 00:00 CONCLUSION: Stable evaluation the brain without evidence of acute infarct, hemorrhage, mass or edema. . Head MRI 06/01/18 00:00 CONCLUSION: 1. No evidence of acute infarct, hemorrhage, mass or edema. 2. Mild cerebral white matter disease characteristic of microvascular ischemic changes. 3. No significant change compared to previous study in 2010 Elbow X-Ray 06/03/18 00:00 CONCLUSION: Unremarkable exam. Shoulder X-Ray 06/03/18 00:00 CONCLUSION: Unremarkable right shoulder. Abdomen X-Ray 06/06/18 09:53 CONCLUSION: Tip of NG tube in the region of the antrum of the stomach. Wrist X-Ray 06/06/18 11:03 CONCLUSION: 1. No acute fracture or dislocation. 2. Degenerative osteoarthritis, as above. Venous Doppler Study 06/07/18 00:00 CONCLUSION: The study is negative for upper extremity deep venous thrombosis. Chest X-Ray 06/08/18 06:00 CONCLUSION: Slightly improved aeration of the lung bases. Otherwise stable exam. Physical Exam: GENERAL: Alert and awake. HEENT: The head is atraumatic. No icterus. Pupils equally reactive. Moist oral mucosa. NECK: No adenopathy or swelling. LUNGS: Decreased clear breath sounds. HEART: Irregular rate and rhythm. No murmurs, rubs or gallops. ABDOMEN: Obese, soft, hyperactive bowel sounds. No masses palpable. EXTREMITIES: 2+ edema at UE's. Mild swelling of the right wrist and right knee. SKIN: No obvious diffuse rash. NEUROLOGIC: No gross focal finding. PSYCH: Calm and cooperative. Assessment and Plan - Plan IMPRESSION: S/P Septic shock, probably secondary to urinary infection. Temperature and white blood cell count is improved. Urinary tract infection. Proteus. Acute respiratory failure. - tolerating extubation Acute kidney disease. Currently on hemodialysis. Bilateral lung infiltrates, which could be congestive heart failure versus bilateral pneumonia. possible gout or inflammatory arthritis. White count elevated. Probably steroid contributing. RECOMMENDATIONS: Monitor off Abx - he received 7 days Abx for his UTI Repeat UA and C/S Monitor WBC. Monitor progress D/W ITZ
[2018-06-11] MEDS: Hypromellose 0.3% Opth Gel 10 GM Bottle EACH EYE SCH ×2 (12:33→21:08)
[2018-06-11] MEDS: Heparin 10,000 UNITS/10 ML Vial (for IV use) OTHER PRN (15:19)
[2018-06-12] MEDS: Acetaminophen-HYDROcodone 325/7.5 Liq 15 ML UDC NG/OG PRN ×2 (01:18→08:45)
[2018-06-12] MEDS: Oral Hygiene Kit OROPHARYNG SCH ×2 (02:48→06:04)
[2018-06-12 04:23] LABS: Baso # (Auto) 0.1 th/mm3 (0.0-0.2); Baso % (Auto) 0.3 % (0.0-2.0); Eos % (Auto) 0.1 % (0.0-4.0); Hematocrit 22.9 % (39.0-51.0); Hemoglobin 7.4 gm/dL (13.0-17.0); Lymph % (Auto) 10.8 % (9.0-44.0); Mean Corpuscular HGB Conc 32.4 % (32.0-36.0); Mean Corpuscular Hemoglobin 31.5 pg (27.0-34.0); Mean Corpuscular Volume 97.3 fL (80.0-100.0); Mono # (Auto) 1.3 th/mm3 (0.0-0.9); Mono % (Auto) 6.9 % (0.0-8.0); Neut % (Auto) 81.9 % (16.0-70.0); Platelet Count 302 th/mm3 (150-450); Red Blood Count 2.35 mil/mm3 (4.50-5.90); Red Cell Distribution Width 13.9 % (11.6-17.2); White Blood Count 18.4 th/mm3 (4.0-11.0)
[2018-06-12 04:47] LABS: Albumin 2.7 g/dL (3.4-5.0); Calcium 8.1 mg/dL (8.5-10.1); Phosphorus 3.7 mg/dL (2.5-4.9); Potassium 3.5 meq/L (3.5-5.1)
[2018-06-12] MEDS: Insulin NovoLOG Aspart Correctional Sugar Inj SQ SCH ×5 (06:04→22:36)
[2018-06-12] MEDS: Levothyroxine 75 MCG Tablet PO SCH (06:23)
[2018-06-12] MEDS: Levothyroxine 100 MCG Tablet PO SCH (06:23)
[2018-06-12 07:19] LABS: Lymphocytes 11 % (9-44); Metamyelocytes 1 % (0-1); Monocytes 7 % (0-8); Promyelocyte 1 % (0-0); Tallied Nucleated RBC 1 (0-0)
[2018-06-12 07:20] LABS: Ovalocytes 1+; Platelet Estimate Normal (Normal); Platelet Morphology Normal (Normal)
[2018-06-12] MEDS: Pregabalin 75 MG Capsule PO SCH ×2 (08:35→22:34)
[2018-06-12] MEDS: Amiodarone 200 MG Tablet PO SCH ×2 (08:35→22:34)
[2018-06-12] MEDS: predniSONE 20 MG Tablet PO SCH (08:35)
[2018-06-12] MEDS: Doxazosin 1 MG Tablet PO SCH (08:35)
[2018-06-12] MEDS: Polyethylene Glycol 3350 17 GM Packet NG/OG SCH ×2 (08:35→22:38)
[2018-06-12] MEDS: Carvedilol 6.25 MG Tablet PO SCH ×2 (08:35→22:34)
[2018-06-12] MEDS: Ascorbic Acid 500 MG Tablet PO SCH (08:35)
[2018-06-12] MEDS: Sucralfate 1 GM Tablet PO SCH (08:35)
[2018-06-12] MEDS: Ferrrous Sulfate 300 MG/5 ML UDC PO SCH (08:35)
[2018-06-12] MEDS: Hypromellose 0.3% Opth Gel 10 GM Bottle EACH EYE SCH ×2 (08:36→22:37)
[2018-06-12] MEDS: Clotrimazole 1% Cream 15 GM Tube TOPICAL SCH ×2 (08:36→22:37)
[2018-06-12] MEDS: Nystatin/Diphenhydramine/Lidocaine Mouthwash (Adult) 120 ML Botttle SWISH-SWAL SCH ×4 (08:36→22:38)
--- NOTE | 2018-06-12 10:19 | P.PNCC ---
Subjective Subjective Remarks/Hospital Course: Note for 06/11/18: 05/31: This is a 72-year-old male. He is a resident of [facility]. Date of admission 05/30/2018. Originally admitted to hospitalist service and now under our service 05/31/2018. Past medical history includes fibromyalgia, dementia, history of CVA, obstructive sleep apnea, atrial fibrillation/chronic, COPD, chronic kidney disease stage IV, BPH, diabetes mellitus, elevated BMI, atherosclerotic vascular disease, nephrolithiasis, liver cirrhosis, essential hypertension, hyperlipidemia, gout, history of right ice C occlusion, hypothyroidism, dysphagia, constipation, diplopia, CABG 2, TURP, cardiac stent, right percutaneous lithotripsy, liver biopsy and bilateral hand surgery. Patient is also on chronic benzodiazepines. Patient presented to [facility] on 05/30/2018 with history of being found on the floor between his bed in the window. His head was against the dresser. He was able to tell if he hit his head. There is a large amount about was in the floor but not bleeding from the head. He has excoriations on his back and his left knee and right wrist. CT brain at this facility was negative. Patient is on apixaban and aspirin at home. Patient was noted to have a urinary tract infection was started on cefepime and gentamicin by ED physician. Throughout the night, patient became more confused and is found to be obtunded earlier this morning was intubated and centralized placed due to hypotension. He is currently on norepinephrine drip at 12 mcg/min. Troponin was 0.05. Patient had a leukocytosis, normocytic anemia, creatinine 6.6/ baseline around 2.5 and TSH is 0.356. We are asked to admit the patient at this time. He is currently intubated and arousable in room C 25 in ED. No family available. 06/01: Remains sedated, orally intubated on mechanical ventilation. Had generalized tonic-clonic movements which were questionable last night for which he was given Ativan 4 mg IV and loaded with Cerebyx. EEG this morning pending. Neurology consult noted. Head CT negative for bleed. Negligible urine output. Worsening BUN/creatinine. On vasopressin low-dose currently, off all other pressors. 06/02: Remains sedated, arousable, orally intubated on mechanical ventilation. Not following commands unenlightening sedation. 06/03: Arouses off sedation, not following commands. Orally intubated on mechanical ventilation. On CPAP trials. 06/04: More awake today tracking. Intermittently follows commands on upper and lower extremities. Remains on Sujit-Synephrine and vasopressin. Also change amiodarone to p.o. BUN climbing 104 today, creatinine stable at 5.7. May need to start hemodialysis will discuss with nephrology 06/05: Patient was extubated yesterday, breathing well respiratory graf tolerating. Remains confused but follows commands continues to have some garbled speech. Creatinine is 5.65 BUN 108 today. Still making urine nephrology wants to hold off HD another day and monitor. UO 1.1 L in 24 hours 06/06: Patient is more critical today. He is more lethargic with worsening uremia BUN 124 creatinine 6.5. If family agreeable with hemodialysis I will place a Vas-Cath today. Give 1 dose of digoxin, start Coreg 6.25 mg twice daily , and restart p.o. amiodarone to wean off amiodarone infusion. 06/07: Started on hemodialysis yesterday, 1.3 L removed. Currently receiving hemodialysis heart rate better controlled in mid 80s. P.o. amiodarone and Coreg started yesterday. Right wrist remains swollen tender. XR negative. 06/08: Breathing comfortably. CXR clear. Remains edematous in both arms. Will remove central line.. Tolerating beta-alton now. 06/09: Tolerating hemodialysis this morning. Heart rate control acceptable. 06/10: Remains generally edematous. Dialysis successfully removing volume. He has failed swallow eval several days now. Complains of sore throat today. 06/11: Remains generally edematous. Swallowing difficulties presently being evaluated. Right wrist and hand pain under evaluation. Patient continues to express his desire to , appears to have lost hope. Objective Vital Signs / I&O: Vital Signs 06/11/18 10:24 06/11/18 12:00 06/11/18 14:00 Temperature 98.0 F Pulse Rate 58 L 64 Respiratory Rate 24 Blood Pressure 146/90 H Pulse Oximetry 98 95 06/11/18 14:58 06/11/18 16:00 06/11/18 17:27 Temperature 98.1 F Pulse Rate 67 62 Respiratory Rate 14 10 L 10 L Blood Pressure 108/52 L Pulse Oximetry 92 L 06/11/18 18:00 06/11/18 20:00 06/11/18 20:54 Temperature 98.2 F Pulse Rate 75 75 Respiratory Rate 16 Blood Pressure 119/56 L Pulse Oximetry 95 96 06/11/18 22:00 06/12/18 00:00 06/12/18 01:49 Temperature 97 F L Pulse Rate 71 58 L Respiratory Rate 15 Blood Pressure 163/71 H Pulse Oximetry 94 L 100 06/12/18 02:00 06/12/18 04:00 06/12/18 06:00 Temperature 97.7 F Pulse Rate 61 62 59 L Respiratory Rate 14 16 Blood Pressure 133/61 Pulse Oximetry 100 06/12/18 07:46 06/12/18 08:00 06/12/18 08:14 Temperature 97.8 F Pulse Rate 65 Respiratory Rate 19 Blood Pressure 130/60 Pulse Oximetry 98 97 97 06/12/18 10:00 06/12/18 10:10 Temperature Pulse Rate 68 Respiratory Rate 18 Blood Pressure Pulse Oximetry Intake & Output 06/11/18 06/12/18 06/12/18 18:59 06:59 18:59 Intake Total 1411 / 1411 360 / 360 Output Total 4500 / 4500 Balance -3089 / -3089 360 / 360 Weight 122.4 kg Intake: IV 100 / 100 Ofirmev Inj 1,000 mg In 100 ml 100 / 100 @ 400 mls/hr IV.SIG Q8H PRN Rx# :[id number] Oral 300 / 300 360 / 360 Tube Feeding 681 / 681 Water Bolus Amount 330 / 330 Output: Hemodialysis Amount 4500 / 4500 Other: # Voids 1 # Incontinent Voids 1 Date of Last Bowel Movement 06/10/18 06/11/18 06/10/18 Result Diagrams: 06/12/18 02:38 06/12/18 02:38 Objective Remarks: GENERAL: 72-year-old male currently on NC SKIN: Warm and dry. Some generalized swelling around the right and left arms and wrists HEAD: Atraumatic. Normocephalic. EYES: Pupils equal and round bilaterally. No scleral icterus. No injection or drainage. ENT: No nasal bleeding or discharge. NECK: Trachea midline. Airway widely patent, no obstructive noises. Protects airway. CARDIOVASCULAR: S1-S2 , no gallop or murmur. Chronic A. fib, rate controlled RESPIRATORY: Air entry diminished bilaterally, comfortable pattern. No crackles. GASTROINTESTINAL: Abdomen soft, non-tender, obese, active bowel sounds. No guarding. MUSCULOSKELETAL: Extremities with pitting bilateral lower extremity edema. Right wrist tender slightly swollen, mild erythema. NEUROLOGICAL: Patient remains disgruntled but much more alert than prior to the initiation of dialysis last week. Moves all extremities follows commands. Acknowledges tender right wrist. Assessment and Plan - Assessment and Plan Plan: Neuro/Psych: Acute encephalopathy likely toxic metabolic secondary to severe sepsis, uremia CVA Dementia disorder NOS Chronic benzodiazepine use History of diplopia Remains off all sedation. Goal of RASS -0 Worsening encephalopathy could be due to increasing BUN. CT brain on admission revealed no acute intracranial findings Continue pregabalin 75 mg twice daily for peripheral neuropathy. Holding alprazolam 0.25 mg 3 times daily for anxiety. Previously for possible seizure, loaded with Cerebyx. EEG moderate encephalopathy no seizures. Neuro following. Repeat Head CT negative for bleed. 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 fib with RVR, now off PO amiodarone 200 mg twice daily, Coreg 6.25 mg twice daily, and s/p IV digoxin 0.25 milligrams 1 06/06/18 2D echo 07/09 revealed EF of 40-45%. LV dilatation. PAP 31 mmHg. Basilar inferolateral and inferior lateral hypokinesis. Repeat echocardiogram: Moderate concentric left ventricular hypertrophy. LVEF 60-65%. Estimated PASP is 63.3 mmHg. [id number] pulmonary hypertension present (range 60-70 mmHg). Heart catheterization 09/08 revealed patent LAURA to LAD and SVG to RCA. Dr. Jenkins is his sprinkling system irrigator Holding Ranolazine 500 mg twice daily for angina. Aspirin 81 mg daily/home medication. Continue atorvastatin 40 mg daily for dyslipidemia Apixaban 2.5 mg twice daily on hold for HD catheter placement Holding diltiazem 120 mg daily, lisinopril 40 mg daily and metoprolol tartrate 100 mg twice daily/home medications Continue Bumex per nephrology Hemodialysis and antihypertensive meds per nephrology service. Resp: Acute respiratory failure-extubated 06/04/18 History of WERNER History of COPD Prior history of tobaccoism Extubated 06/04 good oxygen saturation remains somnolent, lethargic. Patient is DNR/DNI Albuterol/ipratropium aerosols every 4 hours with albuterol aerosols every 2 hours as needed for dyspnea Holding Tiotropium 80 mg daily while on ipratropium GI: Gastroesophageal reflux disease history of gastric ulcer Constipation Hypoalbuminemia History of liver biopsy with diagnosis of cirrhosis? NPO per speech eval. Lansoprazole/sucralfate for GI prophylaxis. Polyethylene glycol 17 g twice daily for bowel regimen Discontinue NG for tube feeding Renal: Acute kidney injury in the setting of chronic kidney disease stage IV BPH status post TURP Abdomen/pelvis CT with nonobstructing right renal stone Nephrology following. Started on HD 06/06/18 1.3 L removed, 3L removed today 06/07 Monitor urine output with accurate I's and O's. History of nephrolithiasis status post right percutaneous lithotripsy 2004 Maintain [place] catheter for accurate I's and O's, convert to condom cath Endo: Diabetes mellitus 1.5 treat as 1.0 Hypothyroidism History of gout Sliding-scale insulin with aspart insulin/high regimen with Accu-Cheks every 4 hours to maintain euglycemia Continue levothyroxine Holding insulin glargine 25 units twice daily, adjust as tube feeding is discontinued Heme: Leukocytosis Normocytic anemia/anemia of chronic kidney disease Chronic apixaban use 2.5 mg twice daily Apixaban 2.5 mg twice daily. Holding for invasive procedures Monitor CBC daily. Follow trends. No indication for transfusion of blood products at this time. Type and screen ID: Proteus UTI History of Enterococcus faecalis bacteremia History of staph saprophyticus urinary tract infection Continue ceftriaxone for Proteus UTI Infectious disease following. Received cefepime and gentamicin in the ED. CT abdomen/pelvis with nonobstructing right renal stone Holding doxycycline 100 mg twice daily/home medication Resume clotrimazole 1% to affected areas twice daily. Blood cultures 2 05/31 negative, Urine cultures with Proteus Influenza a and B negative. Legionella and pneumococcal urinary antigens negative MSK: Swollen tender right wrist -X-ray negative for fracture Access -Left subclavian CVL 05/31), removed 06/08 Prophylaxis -GI -lansoprazole/sucralfate -DVT -SCD/apixaban will provide DVT prophylaxis. Holding apixaban for HD catheter insertion Palliative care following. DNR now Overall impression: Generally and extensively edematous, weak, lethargic elderly gentleman. Hemodialysis begun for end-stage renal disease. We're waiting to see if his sensorium clears with removal of toxic metabolic products. He remains debilitated and frail. Etiology of right wrist pain continues to evade us. His general debilitated state bodes poorly for long- term survival.
--- NOTE | 2018-06-12 14:14 | P.PNNP ---
Subjective Interval history: More alert today. Edema better after dialysis. NG tube removed, diet advanced to full liquid. <Devi Iqbal - Last Filed: 06/12/18 14:10> Physical Exam Vital signs: Vital Signs 06/11/18 14:58 06/11/18 16:00 06/11/18 17:27 Temperature 98.1 F Pulse Rate 67 62 Respiratory Rate 14 10 L 10 L Blood Pressure 108/52 L Pulse Oximetry 92 L 06/11/18 18:00 06/11/18 20:00 06/11/18 20:54 Temperature 98.2 F Pulse Rate 75 75 Respiratory Rate 16 Blood Pressure 119/56 L Pulse Oximetry 95 96 06/11/18 22:00 06/12/18 00:00 06/12/18 01:49 Temperature 97 F L Pulse Rate 71 58 L Respiratory Rate 15 Blood Pressure 163/71 H Pulse Oximetry 94 L 100 06/12/18 02:00 06/12/18 04:00 06/12/18 06:00 Temperature 97.7 F Pulse Rate 61 62 59 L Respiratory Rate 14 16 Blood Pressure 133/61 Pulse Oximetry 100 06/12/18 07:46 06/12/18 08:00 06/12/18 08:14 Temperature 97.8 F Pulse Rate 65 Respiratory Rate 19 Blood Pressure 130/60 Pulse Oximetry 98 97 97 06/12/18 10:00 06/12/18 10:10 06/12/18 12:00 Temperature 97.8 F Pulse Rate 68 66 Respiratory Rate 18 18 Blood Pressure 135/70 Pulse Oximetry 96 Intake & Output 06/11/18 06/12/18 06/12/18 18:59 06:59 18:59 Intake Total 1411 / 1411 360 / 360 Output Total 4500 / 4500 Balance -3089 / -3089 360 / 360 Weight 122.4 kg Intake: IV 100 / 100 Ofirmev Inj 1,000 mg In 100 ml 100 / 100 @ 400 mls/hr IV.SIG Q8H PRN Rx# :[id number] Oral 300 / 300 360 / 360 Tube Feeding 681 / 681 Water Bolus Amount 330 / 330 Output: Hemodialysis Amount 4500 / 4500 Other: # Voids 1 # Incontinent Voids 1 Date of Last Bowel Movement 08/19/18 08/20/18 08/19/18 - Constitutional no acute distress, morbidly obese - Routine HEENT Exam Head: Present: normocephalic ENT: Present: mucous membranes dry - Routine Neck Exam Present: supple, full ROM - Routine Respiratory Exam Present: CTA bilaterally. Absent: accessory muscle use - Routine Cardiovascular Exam Present: RRR, S1, S2 - Routine Abdominal Exam Present: soft, normoactive bowel sounds. Absent: guarding - Routine Extremities Exam Present: edema, pulses intact, tenderness - Routine Skin Exam Present: intact, dry, warm - Routine Neurological Exam Present: alert, altered mental status, moving all extremities - Detailed Neurological Exam: Coma Scale Eye Opening: Spontaneous Verbal Response: Confused Motor Response: Obey commands [place] Coma Scale Total: 14 - Routine Psychiatric Exam Present: unable to assess - Urinary Catheter Management Coude Cath placed during this visit: yes, but has since been removed by the nurse Reason for continuing: Other continuation reason Insertion date: 05/31/18 Insertion time: 23:00 Removal date: 06/08/18 Removal time: 14:30 Indwelling Urethral Catheter Cath placed during this visit: yes, but has since been removed by the nurse Reason for continuing: Other continuation reason Removal date: 06/08/18 Removal time: 14:30 <Devi Iqbal - Last Filed: 06/12/18 14:10> Vital signs: Vital Signs 06/11/18 18:00 06/11/18 20:00 06/11/18 20:54 Temperature 98.2 F Pulse Rate 75 75 Respiratory Rate 16 Blood Pressure 119/56 L Pulse Oximetry 95 96 06/11/18 22:00 06/12/18 00:00 06/12/18 01:49 Temperature 97 F L Pulse Rate 71 58 L Respiratory Rate 15 Blood Pressure 163/71 H Pulse Oximetry 94 L 100 06/12/18 02:00 06/12/18 04:00 06/12/18 06:00 Temperature 97.7 F Pulse Rate 61 62 59 L Respiratory Rate 14 16 Blood Pressure 133/61 Pulse Oximetry 100 06/12/18 07:46 06/12/18 08:00 06/12/18 08:14 Temperature 97.8 F Pulse Rate 65 Respiratory Rate 19 Blood Pressure 130/60 Pulse Oximetry 98 97 97 06/12/18 10:00 06/12/18 10:10 06/12/18 12:00 Temperature 97.8 F Pulse Rate 68 66 Respiratory Rate 18 18 Blood Pressure 135/70 Pulse Oximetry 96 06/12/18 14:00 06/12/18 16:00 Temperature 98.4 F Pulse Rate 66 70 Respiratory Rate 20 Blood Pressure 140/62 Pulse Oximetry 97 Intake & Output 06/11/18 06/12/18 06/12/18 18:59 06:59 18:59 Intake Total 1411 / 1411 360 / 360 Output Total 4500 / 4500 Balance -3089 / -3089 360 / 360 Weight 122.4 kg Intake: IV 100 / 100 Ofirmev Inj 1,000 mg In 100 ml 100 / 100 @ 400 mls/hr IV.SIG Q8H PRN Rx# :[id number] Oral 300 / 300 360 / 360 Tube Feeding 681 / 681 Water Bolus Amount 330 / 330 Output: Hemodialysis Amount 4500 / 4500 Other: # Voids 1 # Incontinent Voids 1 Date of Last Bowel Movement 06/10/18 06/11/18 06/10/18 - Urinary Catheter Management Coude Cath placed during this visit: no Indwelling Urethral Catheter Cath placed during this visit: no <Norman Tabares - Last Filed: 06/12/18 17:58> Assessment and Plan - Assessment (1) Acute on chronic kidney failure Code(s): N17.9 - Acute kidney failure, unspecified; N18.9 - Chronic kidney disease, unspecified Status: Acute Qualifiers: Acute renal failure type: unspecified Chronic kidney disease stage: stage 3 (moderate) Qualified Code(s): N17.9 - Acute kidney failure, unspecified; N18.3 - Chronic kidney disease, stage 3 (moderate) Plan: His baseline is 2.5-2.7 (CKD 3-4). He may have underlying diabetic nephropathy. Follows with Dr. Phillip in [place]. Oliguric renal failure, ATN. Vascath placed and HD started 06/06. HD is now MWF. 4.5 L UF yesterday. Avoid IVF administration. Obtain daily labs Avoid nephrotoxic agents. Stop Carafate due to risk of aluminum toxicity. Monitor for signs of renal recovery. He may have reached ESRD. Holding Eliquis in anticipation of Permcath exchange later in the week. IR consulted. Palliative has met with the son. He would like to see if HD improves his mentation before making decision to go with hospice. (2) Acute alteration in mental status Code(s): R41.82 - Altered mental status, unspecified Status: Acute Plan: Most likely is due to uremia, infection. somewhat alert today (3) Septic shock Code(s): A41.9 - Sepsis, unspecified organism; R65.21 - Severe sepsis with septic shock Status: Acute Plan: He is off antibiotics per ID. continue supportive care He was treated for UTI and pneumonia. On contact isolation. (4) Diabetes mellitus Code(s): E11.9 - Type 2 diabetes mellitus without complications Status: Acute Plan: Maintain blood glucose 140-180 mg/dL while admitted. <Devi Iqbal - Last Filed: 06/12/18 14:10> - Assessment (1) Acute on chronic kidney failure Code(s): N17.9 - Acute kidney failure, unspecified; N18.9 - Chronic kidney disease, unspecified Status: Acute Qualifiers: Acute renal failure type: unspecified Chronic kidney disease stage: stage 3 (moderate) Qualified Code(s): N17.9 - Acute kidney failure, unspecified; N18.3 - Chronic kidney disease, stage 3 (moderate) (2) Acute alteration in mental status Code(s): R41.82 - Altered mental status, unspecified Status: Acute (3) Septic shock Code(s): A41.9 - Sepsis, unspecified organism; R65.21 - Severe sepsis with septic shock Status: Acute (4) Diabetes mellitus Code(s): E11.9 - Type 2 diabetes mellitus without complications Status: Acute - Attending Attestation patient was seen and examined. Agree with above assessment and plan. <Norman Tabares - Last Filed: 06/12/18 17:58>
--- NOTE | 2018-06-12 16:33 | P.DIET ---
Nutritional Evaluation Type of nutrition evaluation: follow-up Nutrition consult regarding: Tube Feeding Nutrition screening: [facility] [place] comments: TFing has been d/c'ed. Diet is advanced. Objective - Diagnosis AMS, UTI, Acute Respiratory Failure - Objective [place] body weight: 76 kg % IBW: 163 (IBW = 166#) Body Weight Used for Calculations: IBW (75.5kg) Energy Needs - Lower Range (kCal/kg): 28 Energy Needs - Upper Range (kCal/kg): 32 Lower Limit kCal/kg (kCals): 2,114 Upper Limit kCal/kg (kCals): 2,416 Lower Limit Protein Factor (Grams per Kg): 1.2 Upper Limit Protein Factor (Grams per Kg): 1.5 Lower Protein Needs (Protein): 91 Upper Protein Needs (Protein): 113 Dietitian Reviewed in Medical Record: Curent medications, Intake & Output, Labs , Medical history, Tube feeding Diet Order: Full Liquids Objective Comments: Meds include: synthroid Assessment Assessment: Pt was extubated 06/04 and he has started dialysis. [facility] d/c'ed 06/11. ST recommends mechanical soft but diet order has not been changed yet. Weight changes noted; pt is edematous. Recommendations: Diet per ST RD will monitor po intake. Dietitian to Monitor: Lab values, Intake & Output, Weight change, PO Intake, Diet advancement, Medical course
[2018-06-13] MEDS: Levothyroxine 100 MCG Tablet PO SCH (06:29)
[2018-06-13] MEDS: Levothyroxine 75 MCG Tablet PO SCH (06:29)
[2018-06-13] MEDS: Insulin NovoLOG Aspart Correctional Sugar Inj SQ SCH ×4 (06:31→21:24)
[2018-06-13] MEDS: Amiodarone 200 MG Tablet PO SCH ×2 (09:00→21:20)
[2018-06-13] MEDS: Ferrrous Sulfate 300 MG/5 ML UDC PO SCH (09:00)
[2018-06-13] MEDS: Pregabalin 75 MG Capsule PO SCH ×2 (09:00→21:21)
[2018-06-13] MEDS: Polyethylene Glycol 3350 17 GM Packet NG/OG SCH ×2 (09:00→21:25)
[2018-06-13] MEDS: predniSONE 20 MG Tablet PO SCH (09:00)
[2018-06-13] MEDS: Carvedilol 6.25 MG Tablet PO SCH ×2 (09:00→21:20)
[2018-06-13] MEDS: Hypromellose 0.3% Opth Gel 10 GM Bottle EACH EYE SCH ×2 (09:00→21:24)
[2018-06-13] MEDS: Clotrimazole 1% Cream 15 GM Tube TOPICAL SCH ×2 (09:00→21:25)
[2018-06-13] MEDS: Ascorbic Acid 500 MG Tablet PO SCH (09:00)
[2018-06-13] MEDS: Nystatin/Diphenhydramine/Lidocaine Mouthwash (Adult) 120 ML Botttle SWISH-SWAL SCH ×4 (09:00→21:25)
[2018-06-13] MEDS: Doxazosin 1 MG Tablet PO SCH (09:00)
--- NOTE | 2018-06-13 09:52 | P.PNNP ---
Subjective Interval history: Seen during dialysis. Remains oligoanuric. Right elbow pain continues. <Devi IqbalMichael - Last Filed: 06/13/18 09:47> Physical Exam Vital signs: Vital Signs 06/12/18 10:00 06/12/18 10:10 06/12/18 12:00 Temperature 97.8 F Pulse Rate 68 66 Respiratory Rate 18 18 Blood Pressure 135/70 Pulse Oximetry 96 06/12/18 14:00 06/12/18 16:00 06/12/18 18:36 Temperature 98.4 F 97.4 F L Pulse Rate 66 70 73 Respiratory Rate 20 17 Blood Pressure 140/62 124/57 L Pulse Oximetry 97 100 06/12/18 20:00 06/13/18 02:00 06/13/18 08:00 Temperature 97.7 F 97.6 F 97.4 F L Pulse Rate 77 68 62 Respiratory Rate 17 18 18 Blood Pressure 108/53 L 138/69 101/56 L Pulse Oximetry 96 98 100 Intake & Output 06/12/18 06/13/18 06/13/18 18:59 06:59 18:59 Intake Total 580 / 580 Output Total 0 / 0 Balance 580 / 580 0 / 0 Weight 105 kg Intake: Oral 580 / 580 Output: Urine 0 / 0 Other: Date of Last Bowel Movement 06/10/18 06/10/18 - Constitutional no acute distress - Routine HEENT Exam Head: Present: normocephalic Eye: Present: EOMI ENT: Present: mucous membranes moist - Routine Neck Exam Present: supple, full ROM - Routine Respiratory Exam Present: CTA bilaterally. Absent: accessory muscle use - Routine Cardiovascular Exam Present: RRR, S1, S2 - Routine Abdominal Exam Present: soft, normoactive bowel sounds - Routine Extremities Exam Present: edema, full ROM, calf tenderness Comments: all extremities tender. - Routine Skin Exam Present: intact, dry, warm - Routine Neurological Exam Present: alert, oriented X3, CN II-XII intact, moving all extremities - Detailed Neurological Exam: Coma Scale Eye Opening: Spontaneous Verbal Response: Oriented Motor Response: Obey commands [place] Coma Scale Total: 15 - Routine Psychiatric Exam Present: normal affect, normal thought process - Urinary Catheter Management Coude Cath placed during this visit: yes, but has since been removed by the nurse Reason for continuing: Other continuation reason Insertion date: 05/31/18 Insertion time: 23:00 Removal date: 06/08/18 Removal time: 14:30 Indwelling Urethral Catheter Cath placed during this visit: yes, but has since been removed by the nurse Reason for continuing: Other continuation reason Removal date: 06/08/18 Removal time: 14:30 <Devi Iqbal - Last Filed: 06/13/18 09:47> Vital signs: Vital Signs 06/13/18 16:00 06/13/18 20:00 06/14/18 00:00 Temperature 97.8 F 97.8 F 97.5 F L Pulse Rate 62 66 57 L Respiratory Rate 18 20 20 Blood Pressure 114/49 L 125/63 110/59 L Pulse Oximetry 100 100 99 06/14/18 09:05 Temperature 98.3 F Pulse Rate 64 Respiratory Rate 18 Blood Pressure 120/91 H Pulse Oximetry Intake & Output 06/13/18 06/14/18 06/14/18 18:59 06:59 18:59 Intake Total 720 / 720 Output Total 1500 / 1500 Balance -780 / -780 Weight 104.4 kg Intake: Oral 720 / 720 Output: Hemodialysis Amount 1500 / 1500 Other: Date of Last Bowel Movement 06/10/18 # Bowel Movements 3 - Urinary Catheter Management Coude Cath placed during this visit: no Indwelling Urethral Catheter Cath placed during this visit: no <Norman Tabares - Last Filed: 06/14/18 15:25> Assessment and Plan - Assessment (1) Acute on chronic kidney failure Code(s): N17.9 - Acute kidney failure, unspecified; N18.9 - Chronic kidney disease, unspecified Status: Acute Qualifiers: Acute renal failure type: unspecified Chronic kidney disease stage: stage 3 (moderate) Qualified Code(s): N17.9 - Acute kidney failure, unspecified; N18.3 - Chronic kidney disease, stage 3 (moderate) Plan: His baseline is 2.5-2.7 (CKD 3-4). He may have underlying diabetic nephropathy. Follows with Dr. Phillip in [place]. Oliguric renal failure, ATN. Vascath placed and HD started 06/06. HD is now MWF. Seen during dialysis today on a 2K, 350 BFR, goal 3L Holding Eliquis in anticipation of Permcath placement. D/W IR. Last dose Monday AM. Otherwise will need vascath replacement. Avoid IVF administration. Obtain daily labs Avoid nephrotoxic agents. Off Carafate. Monitor for signs of renal recovery. He may have reached ESRD. Palliative has met with the son. He would like to see if HD improves his mentation before making decision to go with hospice. (2) Acute alteration in mental status Code(s): R41.82 - Altered mental status, unspecified Status: Acute Plan: Most likely is due to uremia, infection. Improved. (3) Septic shock Code(s): A41.9 - Sepsis, unspecified organism; R65.21 - Severe sepsis with septic shock Status: Acute Plan: He is off antibiotics per ID. continue supportive care He was treated for UTI and pneumonia. On contact isolation. (4) Diabetes mellitus Code(s): E11.9 - Type 2 diabetes mellitus without complications Status: Acute Plan: Maintain blood glucose 140-180 mg/dL while admitted. <Devi Iqbal - Last Filed: 06/13/18 09:47> - Assessment (1) Acute on chronic kidney failure Code(s): N17.9 - Acute kidney failure, unspecified; N18.9 - Chronic kidney disease, unspecified Status: Acute Qualifiers: Acute renal failure type: unspecified Chronic kidney disease stage: stage 3 (moderate) Qualified Code(s): N17.9 - Acute kidney failure, unspecified; N18.3 - Chronic kidney disease, stage 3 (moderate) (2) Acute alteration in mental status Code(s): R41.82 - Altered mental status, unspecified Status: Acute (3) Septic shock Code(s): A41.9 - Sepsis, unspecified organism; R65.21 - Severe sepsis with septic shock Status: Acute (4) Diabetes mellitus Code(s): E11.9 - Type 2 diabetes mellitus without complications Status: Acute - Attending Attestation patient was seen and examined. Agree with above assessment and plan. Patient was seen during dialysis on 06/13/18 <Norman Tabares - Last Filed: 06/14/18 15:25>
[2018-06-13 09:55] LABS: Albumin 2.6 g/dL (3.4-5.0); Calcium 8.2 mg/dL (8.5-10.1); Carbon Dioxide 26.1 meq/L (21.0-32.0); Potassium 4.1 meq/L (3.5-5.1)
[2018-06-13] MEDS ORDERED: Albumin Human 25% Inj 100 ML IV.SIG PRN (12:00)
--- NOTE | 2018-06-13 12:55 | P.PN ---
Subjective Interval history: office specialist notes: 05/31: This is a 72-year-old male. He is a resident of [facility] and [facility]. Date of admission 05/30/2018. Originally admitted to hospitalist service and now under our service 05/31/2018. Past medical history includes fibromyalgia, dementia, history of CVA, obstructive sleep apnea, atrial fibrillation/chronic, COPD, chronic kidney disease stage IV, BPH, diabetes mellitus, elevated BMI, atherosclerotic vascular disease, nephrolithiasis, liver cirrhosis, essential hypertension, hyperlipidemia, gout, history of right ice C occlusion, hypothyroidism, dysphagia, constipation, diplopia, CABG 2, TURP, cardiac stent, right percutaneous lithotripsy, liver biopsy and bilateral hand surgery. Patient is also on chronic benzodiazepines. Patient presented to [facility] on 05/30/2018 with history of being found on the floor between his bed in the window. His head was against the dresser. He was able to tell if he hit his head. There is a large amount about was in the floor but not bleeding from the head. He has excoriations on his back and his left knee and right wrist. CT brain at this facility was negative. Patient is on apixaban and aspirin at home. Patient was noted to have a urinary tract infection was started on cefepime and gentamicin by ED physician. Throughout the night, patient became more confused and is found to be obtunded earlier this morning was intubated and centralized placed due to hypotension. He is currently on norepinephrine drip at 12 mcg/min. Troponin was 0.05. Patient had a leukocytosis, normocytic anemia, creatinine 6.6/ baseline around 2.5 and TSH is 0.356. We are asked to admit the patient at this time. He is currently intubated and arousable in room C 25 in ED. No family available. 06/01: Remains sedated, orally intubated on mechanical ventilation. Had generalized tonic-clonic movements which were questionable last night for which he was given Ativan 4 mg IV and loaded with Cerebyx. EEG this morning pending. Neurology consult noted. Head CT negative for bleed. Negligible urine output. Worsening BUN/creatinine. On vasopressin low-dose currently, off all other pressors. 06/02: Remains sedated, arousable, orally intubated on mechanical ventilation. Not following commands unenlightening sedation. 06/03: Arouses off sedation, not following commands. Orally intubated on mechanical ventilation. On CPAP trials. 06/04: More awake today tracking. Intermittently follows commands on upper and lower extremities. Remains on Sujit-Synephrine and vasopressin. Also change amiodarone to p.o. BUN climbing 104 today, creatinine stable at 5.7. May need to start hemodialysis will discuss with nephrology 06/05: Patient was extubated yesterday, breathing well respiratory graf tolerating. Remains confused but follows commands continues to have some garbled speech. Creatinine is 5.65 BUN 108 today. Still making urine nephrology wants to hold off HD another day and monitor. UO 1.1 L in 24 hours 06/06: Patient is more critical today. He is more lethargic with worsening uremia BUN 124 creatinine 6.5. If family agreeable with hemodialysis I will place a Vas-Cath today. Give 1 dose of digoxin, start Coreg 6.25 mg twice daily , and restart p.o. amiodarone to wean off amiodarone infusion. 06/07: Started on hemodialysis yesterday, 1.3 L removed. Currently receiving hemodialysis heart rate better controlled in mid 80s. P.o. amiodarone and Coreg started yesterday. Right wrist remains swollen tender. XR negative. 06/08: Breathing comfortably. CXR clear. Remains edematous in both arms. Will remove central line.. Tolerating beta-alton now. 06/09: Tolerating hemodialysis this morning. Heart rate control acceptable. 06/10: Remains generally edematous. Dialysis successfully removing volume. He has failed swallow eval several days now. Complains of sore throat today. 06/11: Remains generally edematous. Swallowing difficulties presently being evaluated. Right wrist and hand pain under evaluation. Patient continues to express his desire to , appears to have lost hope. Hospitalist Notes: 06/13: Stable seen in his bedroom, he will be transferred later today for a PermCath placement at this time no complaint, obese patient no nausea, vomit or diarrhea. Physical Exam Vital signs: Vital Signs 06/12/18 14:00 06/12/18 16:00 06/12/18 18:36 Temperature 98.4 F 97.4 F L Pulse Rate 66 70 73 Respiratory Rate 20 17 Blood Pressure 140/62 124/57 L Pulse Oximetry 97 100 06/12/18 20:00 06/13/18 02:00 06/13/18 08:00 Temperature 97.7 F 97.6 F 97.4 F L Pulse Rate 77 68 62 Respiratory Rate 17 18 18 Blood Pressure 108/53 L 138/69 101/56 L Pulse Oximetry 96 98 100 Intake & Output 06/12/18 06/13/18 06/13/18 18:59 06:59 18:59 Intake Total 580 / 580 Output Total 0 / 0 1500 / 1500 Balance 580 / 580 0 / 0 -1500 / -1500 Weight 105 kg Intake: Oral 580 / 580 Output: Urine 0 / 0 Hemodialysis Amount 1500 / 1500 Other: Date of Last Bowel Movement 06/10/18 06/10/18 Narrative: GENERAL: NO acute distress. SKIN: Warm and dry. Some generalized swelling around the right and left arms and wrists HEAD: Atraumatic. Normocephalic. EYES: Pupils equal and round bilaterally. No scleral icterus. No injection or drainage. ENT: No nasal bleeding or discharge. NECK: no JVD, no lymphadenopathy, CARDIOVASCULAR: S1-S2 , no gallop or murmur. Chronic A. fib, rate controlled RESPIRATORY: Air entry diminished bilaterally, comfortable pattern. No crackles. GASTROINTESTINAL: Abdomen soft, non-tender, obese, active bowel sounds. No guarding. MUSCULOSKELETAL: Extremities with pitting bilateral lower extremity edema. Right wrist tender slightly swollen, mild erythema. NEUROLOGICAL: no acute distress. - Urinary Catheter Management Coude Cath placed during this visit: yes, but has since been removed by the nurse Reason for continuing: Other continuation reason Insertion date: 05/31/18 Insertion time: 23:00 Removal date: 06/08/18 Removal time: 14:30 Indwelling Urethral Catheter Cath placed during this visit: yes, but has since been removed by the nurse Reason for continuing: Other continuation reason Removal date: 06/08/18 Removal time: 14:30 Results - Labs CBC & Chem 7: 06/12/18 02:38 06/13/18 06:58 Laboratory Results - last 24 hr 06/12/18 06/12/18 06/13/18 15:49 22:35 06:58 Sodium 138 Potassium 4.1 Chloride 99 Carbon Dioxide 26.1 Anion Gap 13 BUN 78 H Creatinine 7.40 H Estimated GFR 7 L POC Glucose 376 H 332 H Random Glucose 188 H D Calcium 8.2 L Phosphorus 5.0 H D Albumin 2.6 L 06/13/18 06/13/18 08:32 12:20 Sodium Potassium Chloride Carbon Dioxide Anion Gap BUN Creatinine Estimated GFR POC Glucose 264 H 202 H Random Glucose Calcium Phosphorus Albumin Assessment and Plan - Plan 1. Acute Encephalopathy likely toxic metabolic secondary to severe sepsis/Uremia , Improved. CVA Dementia Chronic Benzodiazepine use Remains off all sedation. Goal of RASS -0 CT brain on admission revealed no acute intracranial findings Pregabalin 75 mg BID for peripheral Neuropathy, Previously for possible seizure, loaded with Cerebyx. EEG moderate encephalopathy no seizures. Neuro following. Repeat head CT negative for bleed 2. Septic Shock requiring Vasopressors-resolved Atrial Fibrillation rate controlled Chronic systolic heart failure EF 40-45% 07/09 Hypertension history of CABG x 2, Coronary artery stenting. 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 on Amiodarone 200 mg BID, Coreg 6.25 mg BID< 2D echo 07/09 revealed EF of 40-45%. LV dilatation. PAP 31 mmHg. Basilar inferolateral and inferior lateral hypokinesis. Repeat echocardiogram: Moderate concentric left ventricular hypertrophy. LVEF 60-65%. Estimated PASP is 63.3 mmHg. [id number] pulmonary hypertension present (range 60-70 mmHg). Heart catheterization 09/08 revealed patent LAURA to LAD and SVG to RCA. Dr. Jenkins is his operator Holding Ranolazine 500 mg twice daily for angina. Aspirin 81 mg daily/home medication. Continue atorvastatin 40 mg daily for dyslipidemia Apixaban 2.5 mg twice daily on hold for HD catheter placement Holding diltiazem 120 mg daily, lisinopril 40 mg daily and metoprolol tartrate 100 mg twice daily/home medications Continue Bumex per nephrology Hemodialysis and antihypertensive meds per nephrology service. 3. VDRF improved, WERNER/COPD, bronchodilator, Mucolytic and incentive spirometry. 4. GERD on gastric protection 5. Acute Kidney Injury in the setting of CKD IV, Nephrology following, will have new PermCath placement later today. 6. DM II/Hypothyroidism/history of Gout sliding scale, levothyroxine, Long lasting insulin, today on hold some medicines he is NPO will need to restart management after PermCath placement. 7. Proteus UTI/Ceftriaxone for UTI proteus, ID following, Infectious disease following. Received cefepime and gentamicin in the ED. CT abdomen/pelvis with nonobstructing right renal stone Code Status DNR/DNI Prophylaxis -GI -lansoprazole/sucralfate -DVT -SCD/apixaban will provide DVT prophylaxis. Holding apixaban for HD catheter insertion Code Status: DNR Discussed Condition With: Patient and nurse. Discharge Planning: expected in one to two days.
--- NOTE | 2018-06-13 16:14 | P.PNPAL ---
Reason for Visit Reason for visit: a. To assist with evaluation and management of symptoms including: Pain, encephalopathy. b. To assist medical decision maker(s) with: better understanding of current medical conditions; weighing benefits/burdens of medical treatment options; making medical treatment decisions. Subjective Subjective/Interval History: Patient seen for follow-up of symptom management of pain and encephalopathy and to assist in goals of medical treatment. Patient seen after receiving dialysis. He is unable to provide a clear answer to any questions. When asked how many children he has he said to, but then later remembered that one had . When asked about his son he starts talking about his ex- and events of the past when his son was a child. He does state that he is having hallucinations and is talking to people who are not there. He is also seeing things that he later realizes are not there. MRI done 06/01/2018 showed no evidence of acute infarct, hemorrhage, mass or edema, but did note mild cerebral white matter disease characteristic of microvascular ischemic changes. No significant change was noted in that study compared to the previous study in 2010. He has no recollection of the accident, but does remember he was previously at [facility]. He is not certain where he is, what year it is or why he is there. He complains of severe right arm pain and qualifies it as a sharp shooting pain , worsening with movement or touch at "9 out of 15". He also complains of pain in "every joint in his body", which he states is present at all times, worsening with movement with an aching quality. . Family/Friend Interactions: Spoke with patient's son, Jonel, who lives in [place]. Updated him as to patient's current complaints and progress. He is aware of the need to change dialysis catheter and agrees with that. He states his father has had an episode of hallucinations and confusion in the past which did clear up and he is hopeful that this will do the same, however he is aware that the patient has been noncompliant with medical care, not taking good care of himself and has frequent exacerbations of health issues when not medically monitored. He is willing to continue dialysis unless his father's condition continues to decline to an unacceptable quality of life. He is appreciative of palliative care input. Contact information has been provided. . Objective Vital Signs: Vital Signs 06/12/18 16:00 06/12/18 18:36 06/12/18 20:00 Temperature 98.4 F 97.4 F L 97.7 F Pulse Rate 70 73 77 Respiratory Rate 20 17 17 Blood Pressure 140/62 124/57 L 108/53 L Pulse Oximetry 97 100 96 06/13/18 02:00 06/13/18 08:00 Temperature 97.6 F 97.4 F L Pulse Rate 68 62 Respiratory Rate 18 18 Blood Pressure 138/69 101/56 L Pulse Oximetry 98 100 Intake & Output 06/12/18 06/13/18 06/13/18 18:59 06:59 18:59 Intake Total 580 / 580 Output Total 0 / 0 1500 / 1500 Balance 580 / 580 0 / 0 -1500 / -1500 Weight 231 lb 7.766 oz Intake: Oral 580 / 580 Output: Urine 0 / 0 Hemodialysis Amount 1500 / 1500 Other: Date of Last Bowel Movement 06/10/18 06/10/18 Physical Exam: CONSTITUTIONAL/GENERAL: This is an adequately nourished but profoundly weak patient, in no apparent distress. TUBES/LINES/DRAINS: Right IJ Vas-Cath, left ACF PIV, [place] CARDIOVASCULAR: Regular rate and rhythm without murmurs, gallops, or rubs. No JVD. Peripheral pulses symmetric. RESPIRATORY/CHEST: Symmetric, unlabored respirations. A few scattered rales. GASTROINTESTINAL: Abdomen soft, non-tender, and moderately distended. No hepato- splenomegaly, or palpable masses. No guarding. Bowel sounds present. MUSCULOSKELETAL: Extremities without clubbing, cyanosis, but there is moderate diffuse edema. No joint tenderness or effusion noted. No mottling or clubbing. NEUROLOGICAL: Lethargic, mumbling softly, oriented to self, knows he is in the hospital but not sure why. PSYCHIATRIC: Complains of hallucinations,, at this time. . Diagnostic Tests Laboratory: Laboratory Results - last 72 hr 06/10/18 06/10/18 06/11/18 17:53 22:52 03:24 WBC RBC Hgb Hct MCV MCH MCHC RDW Plt Count MPV Prelim Diff (Auto) Neut % (Auto) Lymph % (Auto) Hughes % (Auto) Eos % (Auto) Baso % (Auto) Neut # (Auto) Lymph # (Auto) Hughes # (Auto) Eos # (Auto) Baso # (Auto) WBC Differential Seg Neuts % (Manual) Band Neuts % (Manual) Lymphocytes % (Manual) Monocytes % (Manual) Metamyelocytes % (Man) Promyelocytes % (Man) Abs Neuts (Manual) Nucleated RBCs/100 WBC Differential Comment Platelet Estimate Platelet Morphology Ovalocytes Sodium 140 Potassium 4.5 Chloride 100 Carbon Dioxide 27.9 Anion Gap 12 BUN 90 H Creatinine 7.45 H Estimated GFR 7 L POC Glucose 166 H 377 H Random Glucose 152 H Calcium 8.3 L Phosphorus 5.5 H Albumin 2.2 L 06/11/18 06/11/18 06/11/18 04:17 08:04 12:49 WBC RBC Hgb Hct MCV MCH MCHC RDW Plt Count MPV Prelim Diff (Auto) Neut % (Auto) Lymph % (Auto) Hughes % (Auto) Eos % (Auto) Baso % (Auto) Neut # (Auto) Lymph # (Auto) Hughes # (Auto) Eos # (Auto) Baso # (Auto) WBC Differential Seg Neuts % (Manual) Band Neuts % (Manual) Lymphocytes % (Manual) Monocytes % (Manual) Metamyelocytes % (Man) Promyelocytes % (Man) Abs Neuts (Manual) Nucleated RBCs/100 WBC Differential Comment Platelet Estimate Platelet Morphology Ovalocytes Sodium Potassium Chloride Carbon Dioxide Anion Gap BUN Creatinine Estimated GFR POC Glucose 161 H 188 H 189 H Random Glucose Calcium Phosphorus Albumin 06/11/18 06/11/18 06/11/18 16:00 21:20 23:11 WBC RBC Hgb Hct MCV MCH MCHC RDW Plt Count MPV Prelim Diff (Auto) Neut % (Auto) Lymph % (Auto) Hughes % (Auto) Eos % (Auto) Baso % (Auto) Neut # (Auto) Lymph # (Auto) Hughes # (Auto) Eos # (Auto) Baso # (Auto) WBC Differential Seg Neuts % (Manual) Band Neuts % (Manual) Lymphocytes % (Manual) Monocytes % (Manual) Metamyelocytes % (Man) Promyelocytes % (Man) Abs Neuts (Manual) Nucleated RBCs/100 WBC Differential Comment Platelet Estimate Platelet Morphology Ovalocytes Sodium Potassium Chloride Carbon Dioxide Anion Gap BUN Creatinine Estimated GFR POC Glucose 213 H 263 H 240 H Random Glucose Calcium Phosphorus Albumin 06/12/18 06/12/18 06/12/18 02:38 02:38 04:19 WBC 18.4 H RBC 2.35 L Hgb 7.4 L Hct 22.9 L MCV 97.3 MCH 31.5 MCHC 32.4 RDW 13.9 Plt Count 302 MPV 8.0 Prelim Diff (Auto) Slide review pending Neut % (Auto) 81.9 H Lymph % (Auto) 10.8 Hughes % (Auto) 6.9 Eos % (Auto) 0.1 Baso % (Auto) 0.3 Neut # (Auto) 15.0 H Lymph # (Auto) 2.0 Hughes # (Auto) 1.3 H Eos # (Auto) 0.0 Baso # (Auto) 0.1 WBC Differential Manual diff final Seg Neuts % (Manual) 78 H Band Neuts % (Manual) 2 Lymphocytes % (Manual) 11 Monocytes % (Manual) 7 Metamyelocytes % (Man) 1 Promyelocytes % (Man) 1 H Abs Neuts (Manual) 15.1 H Nucleated RBCs/100 WBC 1 H Differential Comment . Platelet Estimate Normal Platelet Morphology Normal Ovalocytes 1+ H Sodium 141 Potassium 3.5 D Chloride 102 Carbon Dioxide 31.0 Anion Gap 8 BUN 60 H Creatinine 5.89 H Estimated GFR 9 L POC Glucose 94 Random Glucose 82 Calcium 8.1 L Phosphorus 3.7 D Albumin 2.7 L 06/12/18 06/12/18 06/12/18 08:40 11:57 11:58 WBC RBC Hgb Hct MCV MCH MCHC RDW Plt Count MPV Prelim Diff (Auto) Neut % (Auto) Lymph % (Auto) Hughes % (Auto) Eos % (Auto) Baso % (Auto) Neut # (Auto) Lymph # (Auto) Hughes # (Auto) Eos # (Auto) Baso # (Auto) WBC Differential Seg Neuts % (Manual) Band Neuts % (Manual) Lymphocytes % (Manual) Monocytes % (Manual) Metamyelocytes % (Man) Promyelocytes % (Man) Abs Neuts (Manual) Nucleated RBCs/100 WBC Differential Comment Platelet Estimate Platelet Morphology Ovalocytes Sodium Potassium Chloride Carbon Dioxide Anion Gap BUN Creatinine Estimated GFR POC Glucose 113 H 316 H 288 H Random Glucose Calcium Phosphorus Albumin 06/12/18 06/12/18 06/13/18 15:49 22:35 06:58 WBC RBC Hgb Hct MCV MCH MCHC RDW Plt Count MPV Prelim Diff (Auto) Neut % (Auto) Lymph % (Auto) Hughes % (Auto) Eos % (Auto) Baso % (Auto) Neut # (Auto) Lymph # (Auto) Hughes # (Auto) Eos # (Auto) Baso # (Auto) WBC Differential Seg Neuts % (Manual) Band Neuts % (Manual) Lymphocytes % (Manual) Monocytes % (Manual) Metamyelocytes % (Man) Promyelocytes % (Man) Abs Neuts (Manual) Nucleated RBCs/100 WBC Differential Comment Platelet Estimate Platelet Morphology Ovalocytes Sodium 138 Potassium 4.1 Chloride 99 Carbon Dioxide 26.1 Anion Gap 13 BUN 78 H Creatinine 7.40 H Estimated GFR 7 L POC Glucose 376 H 332 H Random Glucose 188 H D Calcium 8.2 L Phosphorus 5.0 H D Albumin 2.6 L 06/13/18 06/13/18 08:32 12:20 WBC RBC Hgb Hct MCV MCH MCHC RDW Plt Count MPV Prelim Diff (Auto) Neut % (Auto) Lymph % (Auto) Hughes % (Auto) Eos % (Auto) Baso % (Auto) Neut # (Auto) Lymph # (Auto) Hughes # (Auto) Eos # (Auto) Baso # (Auto) WBC Differential Seg Neuts % (Manual) Band Neuts % (Manual) Lymphocytes % (Manual) Monocytes % (Manual) Metamyelocytes % (Man) Promyelocytes % (Man) Abs Neuts (Manual) Nucleated RBCs/100 WBC Differential Comment Platelet Estimate Platelet Morphology Ovalocytes Sodium Potassium Chloride Carbon Dioxide Anion Gap BUN Creatinine Estimated GFR POC Glucose 264 H 202 H Random Glucose Calcium Phosphorus Albumin Result Diagrams: 06/12/18 02:38 06/13/18 06:58 Microbiology: Microbiology 05/31/18 07:45 Blood - Peripheral Aerobic Blood Culture - Final No growth in 5 days 05/31/18 07:45 Blood - Peripheral Anaerobic Blood Culture - Final No growth in 5 days 05/31/18 07:50 Blood - Peripheral Aerobic Blood Culture - Final No growth in 5 days 05/31/18 07:50 Blood - Peripheral Anaerobic Blood Culture - Final No growth in 5 days 05/31/18 08:10 Sputum - Endotracheal Gram Stain - Final 05/31/18 08:10 Sputum - Endotracheal Sputum Culture - Final Heavy growth normal respiratory xuan 05/31/18 00:05 Catheterized Urine Urine Culture - Final Proteus mirabilis 05/31/18 08:25 Urine - Catheterized Urine Streptococcus pneumoniae Antigen ( M - Final Presumptive negative for streptococcus pneumoniae antigen, suggesting no current or recent infection. Infection due to Streptococcus pneumoniae cannot be ruled out since the antigen present in the sample may be below the detection limit of the test. 05/31/18 08:25 Urine - Catheterized Urine Legionella Antigen - Final Presumptive negative for Legionella pneumophila serogroup 1 antigen in urine, suggesting no recent or recurrent infection. Infection due to Legionella cannot be ruled out since other serogroups and species may cause disease, antigen may not be present in urine in early infection, and the level of antigen present in the urine may be below the detection limit of the test. 05/31/18 11:00 Nasal Wash Influenza Types A,B Antigen - Final Negative for FLU A and B antigen Infection due to influenza A or B cannot be ruled out since the antigen present in the sample may be below the detection limit of the test. Imaging: Chest X-Ray 05/30/18 23:18 CONCLUSION: Clear lungs. Head CT 05/30/18 23:18 CONCLUSION: 1. Negative CT Head non contrast. . Abdomen/Pelvis CT 05/31/18 00:00 CONCLUSION: 1. No acute abnormality. 2. 7 mm nonobstructing right renal stone. 3. Small bilateral pleural effusions with bibasilar consolidations. This is more pronounced than typical passive atelectasis. Infectious etiology versus pulmonary edema. Head CT 05/31/18 00:00 CONCLUSION: Stable evaluation the brain without evidence of acute infarct, hemorrhage, mass or edema. . Chest X-Ray 05/31/18 05:25 CONCLUSION: Central line as above. Head MRI 06/01/18 00:00 CONCLUSION: 1. No evidence of acute infarct, hemorrhage, mass or edema. 2. Mild cerebral white matter disease characteristic of microvascular ischemic changes. 3. No significant change compared to previous study in 2011 Chest X-Ray 06/02/18 07:25 CONCLUSION: Left basilar density , Likely atelectasis. Elbow X-Ray 06/03/18 00:00 CONCLUSION: Unremarkable exam. Elbow X-Ray 06/03/18 00:00 CONCLUSION: Unremarkable examination of the elbow. Shoulder X-Ray 06/03/18 00:00 CONCLUSION: Unremarkable left shoulder. Shoulder X-Ray 06/03/18 00:00 CONCLUSION: Unremarkable right shoulder. Chest X-Ray 06/03/18 15:38 CONCLUSION: 1. Mild improvement in the left lower lung infiltrate. 2. Stable mild right lower lung infiltrate. Chest X-Ray 06/05/18 06:00 CONCLUSION: No acute cardiopulmonary disease. Chest X-Ray 06/06/18 06:00 CONCLUSION: Left basilar density likely atelectasis. Abdomen X-Ray 06/06/18 09:53 CONCLUSION: Tip of NG tube in the region of the antrum of the stomach. Chest X-Ray 06/06/18 11:03 CONCLUSION: 1. Right IJ dialysis catheter in good position without pneumothorax. 2. NGT beyond the GE junction. 3. Persistent left lower lobe patchy airspace disease, likely atelectasis. 4. Mild positive fluid balance. Wrist X-Ray 06/06/18 11:03 CONCLUSION: 1. No acute fracture or dislocation. 2. Degenerative osteoarthritis, as above. Venous Doppler Study 06/07/18 00:00 CONCLUSION: The study is negative for upper extremity deep venous thrombosis. Chest X-Ray 06/07/18 06:00 CONCLUSION: Tubes and lines in good position. Chest X-Ray 06/08/18 06:00 CONCLUSION: Slightly improved aeration of the lung bases. Otherwise stable exam. Procedures: INTUBATION 05/30/18 EXTUBATION 06/04/18 Assessment and Plan Pertinent Non-Medical Issues: Psychosocial: Retired, , on Social Security, [facility] resident for several months. He had 3 children: One son is , haily Remy has stayed in touch with the patient and lives in [place], and there is a daughter that has been estranged for many years (different mother) Spiritual: The patient is reportedly spiritual but not congregational, not affiliated with any mormon or denomination. 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 His son Jonel De La Paz is the healthcare proxy decision-maker at this time. Ethical issues impacting care: None Important Contacts: Son Jonel De La Paz, cell: [phone] Friend: Wilber Bhatt [phone] Prognosis: Overall, the patient's prognosis is poor. He has multiorgan system failure at this point in time, has severe dysphagia, and has multiple underlying comorbidities. He is appropriate for hospice when goals transition to comfort. Code Status: No Code DNR Plan: * DO NOT RESUSCITATE per Jonel johansen. * DECISION-MAKING: The patient lacks capacity for decision-making, and it is unclear if he will regain capacity. His son Jonel De La Paz is the healthcare proxy decision-maker at this time. * GOALS: Discussed with son Jonel via telephone 06/13/18. He is clearly aware that the patient is not doing well, that he is now profoundly weak and at high risk for additional complications, setbacks, and . He says he would like to give the dialysis a try, but if the patient's health continues to decline he would be open to discussing hospice services. * SYMPTOMS: He remains mildly encephalopathic, having some hallucinations with minimal memory of the recent events. He is complaining of significant all over body pain and specifically right hand and arm pain. He has hydrocodone/ acetaminophen liquid available, however ordered for NG/OG administration. Would recommend providing an oral dosing route to facilitate movement and cooperation with therapy. * Palliative Care will continue to follow the patient during this hospitalization. Attestation Attestation: To help prompt me to consider important information that might be impacting today's encounter and assessment, information from prior notes written by myself or my colleagues may have been "brought forward" into today's note. My signature on this note, however, is an attestation that I personally performed the exam, history, and/or decision-making noted today, and, unless otherwise indicated, the interactions with patient, family, and staff as well as the review of records all occurred today. I also attest that the listed assessment and stated plan reflect my best clinical judgment today based on the combination of historical information, prior notes, and today's exam/ interactions. When time spent is documented, it refers only to time spent today by the signer, or if indicated, combined time spent today by collaborating physician/nurse practitioner. .
--- NOTE | 2018-06-13 17:31 | IR ---
EXAM DATE: 06/13/2018 4:56 PM EDT AGE/SEX: 72 years / Male INDICATIONS: Patient presents with pain and elevated white blood cells in need of removal of tempora ry dialysis catheter. CLINICAL DATA: This is the patient's initial encounter. Patient reports that signs and symptoms have been present for 1 day and indicates a pain score of 7/10. MEDICAL/SURGICAL HISTORY: Diabetes. Chronic obstructive pulmonary disease. Congestive heart f ailure. cardiovascular disease, NSTEMI, Chronic kidney disease, Coronary artery disease, dementia, d ysphasia, Essential hypertension, Fibromyalgia, Nephrolithiasis Angioplasty. Hand surgery, History o f nephrostomy, History of liver biopsy, S/P TURP, S/P Coronary artery stent placement. COMPARISON: No prior exams available for comparison. IMAGE SERIES: ACCESS SITE: DEVICE(S): . . PROCEDURE: 1. Temporary central venous catheter removal. The prescribed catheter was removed intact and hemostasis was achieved with direct pressure. The sit e was dressed appropriately. The patient tolerated the procedure well. CONCLUSION: Uncomplicated central venous catheter removal. Electronically signed by: Ashvin Pereira MD 06/13/2018 5:30 PM EDT
[2018-06-14] MEDS: Insulin NovoLOG Aspart Correctional Sugar Inj SQ SCH ×8 (00:19→23:15)
[2018-06-14] MEDS: Levothyroxine 100 MCG Tablet PO SCH (05:54)
[2018-06-14] MEDS: Levothyroxine 75 MCG Tablet PO SCH (05:54)
[2018-06-14] MEDS: Doxazosin 1 MG Tablet PO SCH (09:29)
[2018-06-14] MEDS: Amiodarone 200 MG Tablet PO SCH ×2 (09:29→20:30)
[2018-06-14] MEDS: Carvedilol 6.25 MG Tablet PO SCH ×2 (09:29→20:30)
[2018-06-14] MEDS ORDERED: *Heparin 10,000 UNITS/10 ML Vial Periprocedural ONLY ONE (10:23)
[2018-06-14 11:04] LABS: Albumin 2.7 g/dL (3.4-5.0); Calcium 8.1 mg/dL (8.5-10.1); Carbon Dioxide 27.2 meq/L (21.0-32.0); Phosphorus 4.5 mg/dL (2.5-4.9); Potassium 4.3 meq/L (3.5-5.1)
[2018-06-14] MEDS ORDERED: Heparin Central Flush 100 UNIT/ML 5 ML Vial IV.FLUSH PRN (11:23)
--- NOTE | 2018-06-14 11:27 | IR ---
EXAM DATE: 06/14/2018 10:59 AM EDT AGE/SEX: 72 years / Male INDICATIONS: Patient with history of chronic kidney disease in need of non tunneled dialysis cathete r. CLINICAL DATA: This is the patient's subsequent encounter. Patient reports that signs and symptoms h ave been present for 2 weeks and indicates a pain score of 7/10. MEDICAL/SURGICAL HISTORY: Hypercholesterolemia. Diabetes. Hypertension. A-Fib, COPD, Fibromy algia, Dementia, CVA, Stage IV chronic kidney disease, BPH, Nephrolithiasis, Liver cirrhosis, Hypothy roidism, Gout, Dysphagia, CHF, CAD, Right ICA occlusion CABGX2, Nephrostomy, Liver biopsy, TURP, Li thotripsy, Dialysis catheter COMPARISON: No prior exams available for comparison. FLUORO TIME (min): 0.3 IMAGE SERIES: 1 ACCESS SITE: Right internal jugular vein DEVICE(S): 14 Divehi double lumen X20CM Schon catheter . . PROCEDURE : 1. Ultrasound guided venipuncture. 2. Fluoroscopic guidance. 3. Central line placement. The risks, benefits and alternatives to the procedure were explained and verbal and written consent w as obtained. The site was prepped in sterile fashion. Full sterile technique was used, including ca p, mask, sterile gloves and gown and a large sterile sheet. Hand hygiene and 2% chlorhexidine prep w as utilized per protocol for cutaneous antisepsis with appropriate dry time for site. Sterile gel an d sterile probe cover were utilized for ultrasound guidance. The skin and subcutaneous tissues were infiltrated with local anesthetic solution. A suitable site a derek the vein was selected with ultrasound and fluoroscopic guidance. A small incision was made. Th e vein was accessed under direct ultrasound visualization using the micropuncture technique. The loly ropuncture set was exchanged for a 0.035 wire. The tract was dilated. The catheter was advanced int o position under direct fluoroscopic visualization, and was advanced with the tip at the junction of the superior vena cava and rt atrium. The catheter was fixed in place with suture and a sterile dres sing was applied. The patient tolerated the procedure well and there were no complications. CONCLUSION: 1. Uncomplicated line placement as above. Electronically signed by: Arcadio Chaves MD 06/14/2018 11:26 AM EDT
--- NOTE | 2018-06-14 11:46 | P.PNNP ---
Subjective Interval history: Just retuned from Vascath exchange. Due to leukocytosis, IR would not place PermCath. Still reporting arm/wrist pain. <Devi Iqbal - Last Filed: 06/14/18 11:42> Physical Exam Vital signs: Vital Signs 06/13/18 16:00 06/13/18 20:00 06/14/18 00:00 Temperature 97.8 F 97.8 F 97.5 F L Pulse Rate 62 66 57 L Respiratory Rate 18 20 20 Blood Pressure 114/49 L 125/63 110/59 L Pulse Oximetry 100 100 99 06/14/18 09:05 Temperature 98.3 F Pulse Rate 64 Respiratory Rate 18 Blood Pressure 120/91 H Pulse Oximetry Intake & Output 06/13/18 06/14/18 06/14/18 18:59 06:59 18:59 Intake Total 720 / 720 Output Total 1500 / 1500 Balance -780 / -780 Weight 104.4 kg Intake: Oral 720 / 720 Output: Hemodialysis Amount 1500 / 1500 Other: Date of Last Bowel Movement 06/10/18 # Bowel Movements 3 - Constitutional no acute distress, morbidly obese, chronically ill appearing, cooperative - Routine Neck Exam Present: supple, full ROM. Absent: JVD - Routine Respiratory Exam Present: CTA bilaterally. Absent: accessory muscle use - Routine Cardiovascular Exam Present: RRR, S1, S2 - Routine Abdominal Exam Present: soft, normoactive bowel sounds - Routine Extremities Exam Present: edema, tenderness. Absent: full ROM Comments: upper extremities painful - Routine Skin Exam Present: intact, dry - Routine Neurological Exam Present: alert, CN II-XII intact, moving all extremities - Detailed Neurological Exam: Coma Scale Eye Opening: Spontaneous Verbal Response: Oriented Motor Response: Obey commands Marcellus Coma Scale Total: 15 - Routine Psychiatric Exam Present: normal affect, normal thought process - Urinary Catheter Management Coude Cath placed during this visit: yes, but has since been removed by the nurse Reason for continuing: Other continuation reason Insertion date: 05/31/18 Insertion time: 23:00 Removal date: 06/08/18 Removal time: 14:30 Indwelling Urethral Catheter Cath placed during this visit: yes, but has since been removed by the nurse Reason for continuing: Other continuation reason Removal date: 06/08/18 Removal time: 14:30 <Devi Iqbal - Last Filed: 06/14/18 11:42> Vital signs: Vital Signs 06/13/18 16:00 06/13/18 20:00 06/14/18 00:00 Temperature 97.8 F 97.8 F 97.5 F L Pulse Rate 62 66 57 L Respiratory Rate 18 20 20 Blood Pressure 114/49 L 125/63 110/59 L Pulse Oximetry 100 100 99 06/14/18 09:05 Temperature 98.3 F Pulse Rate 64 Respiratory Rate 18 Blood Pressure 120/91 H Pulse Oximetry Intake & Output 06/13/18 06/14/18 06/14/18 18:59 06:59 18:59 Intake Total 720 / 720 Output Total 1500 / 1500 Balance -780 / -780 Weight 104.4 kg Intake: Oral 720 / 720 Output: Hemodialysis Amount 1500 / 1500 Other: Date of Last Bowel Movement 06/10/18 # Bowel Movements 3 - Urinary Catheter Management Coude Cath placed during this visit: no Indwelling Urethral Catheter Cath placed during this visit: no <Norman Tabares - Last Filed: 06/14/18 15:44> Assessment and Plan - Assessment (1) Acute on chronic kidney failure Code(s): N17.9 - Acute kidney failure, unspecified; N18.9 - Chronic kidney disease, unspecified Status: Acute Qualifiers: Acute renal failure type: unspecified Chronic kidney disease stage: stage 3 (moderate) Qualified Code(s): N17.9 - Acute kidney failure, unspecified; N18.3 - Chronic kidney disease, stage 3 (moderate) Plan: His baseline is 2.5-2.7 (CKD 3-4). Most likely has underlying diabetic nephropathy. Follows with Dr. Phillip in [place]. Oliguric renal failure, ATN. Vascath replaced 06/14. HD started 06/06. HD is MWF. 1.5L UF yesterday. Resume Apixaban that was held for catheter placement. Will need to be held x 48 hrs when WBC improves. Avoid IVF administration. Obtain daily labs Avoid nephrotoxic agents. Monitor for signs of renal recovery. He may have reached ESRD. Palliative has met with the son. He would like to see if HD improves his mentation before making decision to go with hospice. (2) Acute alteration in mental status Code(s): R41.82 - Altered mental status, unspecified Status: Acute Plan: Most likely is due to uremia, infection. Improved. (3) Septic shock Code(s): A41.9 - Sepsis, unspecified organism; R65.21 - Severe sepsis with septic shock Status: Acute Plan: He is off antibiotics per ID. continue supportive care He was treated for UTI and pneumonia. (4) Diabetes mellitus Code(s): E11.9 - Type 2 diabetes mellitus without complications Status: Acute Plan: Maintain blood glucose 140-180 mg/dL while admitted. <Devi Iqbal - Last Filed: 06/14/18 11:42> - Assessment (1) Acute on chronic kidney failure Code(s): N17.9 - Acute kidney failure, unspecified; N18.9 - Chronic kidney disease, unspecified Status: Acute Qualifiers: Acute renal failure type: unspecified Chronic kidney disease stage: stage 3 (moderate) Qualified Code(s): N17.9 - Acute kidney failure, unspecified; N18.3 - Chronic kidney disease, stage 3 (moderate) (2) Acute alteration in mental status Code(s): R41.82 - Altered mental status, unspecified Status: Acute (3) Septic shock Code(s): A41.9 - Sepsis, unspecified organism; R65.21 - Severe sepsis with septic shock Status: Acute (4) Diabetes mellitus Code(s): E11.9 - Type 2 diabetes mellitus without complications Status: Acute - Attending Attestation patient was seen and examined. Agree with above assessment and plan. Repeat CBC. <Norman Tabares - Last Filed: 06/14/18 15:44>
[2018-06-14] MEDS: Polyethylene Glycol 3350 17 GM Packet NG/OG SCH ×2 (13:47→20:30)
[2018-06-14] MEDS: Ferrrous Sulfate 300 MG/5 ML UDC PO SCH (13:47)
[2018-06-14] MEDS: predniSONE 20 MG Tablet PO SCH (13:47)
[2018-06-14] MEDS: Ascorbic Acid 500 MG Tablet PO SCH (13:48)
[2018-06-14] MEDS: Pregabalin 75 MG Capsule PO SCH ×2 (13:48→20:30)
[2018-06-14] MEDS: Nystatin/Diphenhydramine/Lidocaine Mouthwash (Adult) 120 ML Botttle SWISH-SWAL SCH ×4 (13:50→20:30)
[2018-06-14] MEDS: Hypromellose 0.3% Opth Gel 10 GM Bottle EACH EYE SCH ×2 (17:02→20:30)
[2018-06-14] MEDS: Clotrimazole 1% Cream 15 GM Tube TOPICAL SCH ×2 (17:02→20:31)
--- NOTE | 2018-06-14 17:49 | P.PN ---
Subjective Interval history: nursing specialist notes: 05/31: This is a 72-year-old male. He is a resident of [facility] and [facility]. Date of admission 05/30/2018. Originally admitted to hospitalist service and now under our service 05/31/2018. Past medical history includes fibromyalgia, dementia, history of CVA, obstructive sleep apnea, atrial fibrillation/chronic, COPD, chronic kidney disease stage IV, BPH, diabetes mellitus, elevated BMI, atherosclerotic vascular disease, nephrolithiasis, liver cirrhosis, essential hypertension, hyperlipidemia, gout, history of right ice C occlusion, hypothyroidism, dysphagia, constipation, diplopia, CABG 2, TURP, cardiac stent, right percutaneous lithotripsy, liver biopsy and bilateral hand surgery. Patient is also on chronic benzodiazepines. Patient presented to [facility] on 05/30/2018 with history of being found on the floor between his bed in the window. His head was against the dresser. He was able to tell if he hit his head. There is a large amount about was in the floor but not bleeding from the head. He has excoriations on his back and his left knee and right wrist. CT brain at this facility was negative. Patient is on apixaban and aspirin at home. Patient was noted to have a urinary tract infection was started on cefepime and gentamicin by ED physician. Throughout the night, patient became more confused and is found to be obtunded earlier this morning was intubated and centralized placed due to hypotension. He is currently on norepinephrine drip at 12 mcg/min. Troponin was 0.05. Patient had a leukocytosis, normocytic anemia, creatinine 6.6/ baseline around 2.5 and TSH is 0.356. We are asked to admit the patient at this time. He is currently intubated and arousable in room C 25 in ED. No family available. 06/01: Remains sedated, orally intubated on mechanical ventilation. Had generalized tonic-clonic movements which were questionable last night for which he was given Ativan 4 mg IV and loaded with Cerebyx. EEG this morning pending. Neurology consult noted. Head CT negative for bleed. Negligible urine output. Worsening BUN/creatinine. On vasopressin low-dose currently, off all other pressors. 06/02: Remains sedated, arousable, orally intubated on mechanical ventilation. Not following commands unenlightening sedation. 06/03: Arouses off sedation, not following commands. Orally intubated on mechanical ventilation. On CPAP trials. 06/04: More awake today tracking. Intermittently follows commands on upper and lower extremities. Remains on Sujit-Synephrine and vasopressin. Also change amiodarone to p.o. BUN climbing 104 today, creatinine stable at 5.7. May need to start hemodialysis will discuss with nephrology 06/05: Patient was extubated yesterday, breathing well respiratory graf tolerating. Remains confused but follows commands continues to have some garbled speech. Creatinine is 5.65 BUN 108 today. Still making urine nephrology wants to hold off HD another day and monitor. UO 1.1 L in 24 hours 06/06: Patient is more critical today. He is more lethargic with worsening uremia BUN 124 creatinine 6.5. If family agreeable with hemodialysis I will place a Vas-Cath today. Give 1 dose of digoxin, start Coreg 6.25 mg twice daily , and restart p.o. amiodarone to wean off amiodarone infusion. 06/07: Started on hemodialysis yesterday, 1.3 L removed. Currently receiving hemodialysis heart rate better controlled in mid 80s. P.o. amiodarone and Coreg started yesterday. Right wrist remains swollen tender. XR negative. 06/08: Breathing comfortably. CXR clear. Remains edematous in both arms. Will remove central line.. Tolerating beta-alton now. 06/09: Tolerating hemodialysis this morning. Heart rate control acceptable. 06/10: Remains generally edematous. Dialysis successfully removing volume. He has failed swallow eval several days now. Complains of sore throat today. 06/11: Remains generally edematous. Swallowing difficulties presently being evaluated. Right wrist and hand pain under evaluation. Patient continues to express his desire to , appears to have lost hope. Hospitalist Notes: 06/13: Stable seen in his bedroom, he will be transferred later today for a PermCath placement at this time no complaint, obese patient. 06/14: Seen in his bedroom stable no complaint, confused. discussed with nurse and on MDR, his son is awaiting for Nephrology specialist if the patient improves his renal function to elect for Hospice versus transfer to SNF. no nausea, vomit or diarrhea. Physical Exam Vital signs: Vital Signs 06/13/18 20:00 06/14/18 00:00 06/14/18 09:05 Temperature 97.8 F 97.5 F L 98.3 F Pulse Rate 66 57 L 64 Respiratory Rate 20 20 18 Blood Pressure 125/63 110/59 L 120/91 H Pulse Oximetry 100 99 06/14/18 16:00 Temperature 98.0 F Pulse Rate 71 Respiratory Rate 18 Blood Pressure 120/58 L Pulse Oximetry 96 Intake & Output 06/13/18 06/14/18 06/14/18 18:59 06:59 18:59 Intake Total 720 / 720 Output Total 1500 / 1500 Balance -780 / -780 Weight 104.4 kg Intake: Oral 720 / 720 Output: Hemodialysis Amount 1500 / 1500 Other: Date of Last Bowel Movement 06/10/18 # Bowel Movements 3 Narrative: GENERAL: NO acute distress. SKIN: Warm and dry. Some generalized swelling around the right and left arms and wrists HEAD: Atraumatic. Normocephalic. EYES: Pupils equal and round bilaterally. No scleral icterus. No injection or drainage. ENT: No nasal bleeding or discharge. NECK: no JVD, no lymphadenopathy, CARDIOVASCULAR: S1-S2 , no gallop or murmur. Chronic A. fib, rate controlled RESPIRATORY: Air entry diminished bilaterally, comfortable pattern. No crackles. GASTROINTESTINAL: Abdomen soft, non-tender, obese, active bowel sounds. No guarding. MUSCULOSKELETAL: Extremities with pitting bilateral lower extremity edema. Right wrist tender slightly swollen, mild erythema. NEUROLOGICAL: no acute distress. - Urinary Catheter Management Coude Cath placed during this visit: yes, but has since been removed by the nurse Reason for continuing: Other continuation reason Insertion date: 05/31/18 Insertion time: 23:00 Removal date: 06/08/18 Removal time: 14:30 Indwelling Urethral Catheter Cath placed during this visit: yes, but has since been removed by the nurse Reason for continuing: Other continuation reason Removal date: 06/08/18 Removal time: 14:30 Results - Labs CBC & Chem 7: 06/15/18 03:31 06/15/18 03:31 Laboratory Results - last 24 hr 06/13/18 06/14/18 06/14/18 21:16 08:41 09:28 Sodium 139 Potassium 4.3 Chloride 100 Carbon Dioxide 27.2 Anion Gap 12 BUN 62 H Creatinine 7.36 H Estimated GFR 7 L POC Glucose 182 H 143 H Random Glucose 139 H Calcium 8.1 L Phosphorus 4.5 Albumin 2.7 L 06/14/18 13:46 Sodium Potassium Chloride Carbon Dioxide Anion Gap BUN Creatinine Estimated GFR POC Glucose 210 H Random Glucose Calcium Phosphorus Albumin Microbiology 06/13/18 16:30 Catheter Tip - Central Venous Line Wound Culture - Preliminary - Imaging Impressions Catheter Placement 06/14/18 08:00 CONCLUSION: 1. Uncomplicated line placement as above. Assessment and Plan - Plan 1. Acute Encephalopathy likely toxic metabolic secondary to severe sepsis/Uremia , Improving but continue Demented. CVA Dementia Chronic Benzodiazepine use Remains off all sedation. Goal of RASS -0 CT brain on admission revealed no acute intracranial findings Pregabalin 75 mg BID for peripheral Neuropathy, Previously for possible seizure, loaded with Cerebyx. EEG moderate encephalopathy no seizures. Neuro following. Repeat head CT negative for bleed 2. Septic Shock requiring Vasopressors-resolved Atrial Fibrillation rate controlled Chronic systolic heart failure EF 40-45% 07/09 Hypertension history of CABG x 2, Coronary artery stenting. 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 on Amiodarone 200 mg BID, Coreg 6.25 mg BID< 2D echo 07/09 revealed EF of 40-45%. LV dilatation. PAP 31 mmHg. Basilar inferolateral and inferior lateral hypokinesis. Repeat echocardiogram: Moderate concentric left ventricular hypertrophy. LVEF 60-65%. Estimated PASP is 63.3 mmHg. [id number] pulmonary hypertension present (range 60-70 mmHg). Heart catheterization 09/08 revealed patent LAURA to LAD and SVG to RCA. Dr. Jenkins is his anthropology professor Holding Ranolazine 500 mg twice daily for angina. Aspirin 81 mg daily/home medication. Continue atorvastatin 40 mg daily for dyslipidemia Apixaban 2.5 mg twice daily on hold for HD catheter placement Holding diltiazem 120 mg daily, lisinopril 40 mg daily and metoprolol tartrate 100 mg twice daily/home medications Continue Bumex per nephrology Hemodialysis and antihypertensive meds per nephrology service. 3. VDRF improved, WERNER/COPD, bronchodilator, Mucolytic and incentive spirometry. 4. GERD on gastric protection 5. Acute Kidney Injury in the setting of CKD IV, Nephrology following, PermCath not placed by IR due to Leukocytosis. Continue HD, has cath on right upper chest, complaint of Right arm edema and pain 6. DM II/Hypothyroidism/history of Gout sliding scale, levothyroxine, Long lasting insulin, today on hold some medicines he is NPO will need to restart management after PermCath placement. 7. Proteus UTI/Ceftriaxone for UTI proteus, ID following, Infectious disease following. Received cefepime and gentamicin in the ED. CT abdomen/pelvis with nonobstructing right renal stone 8. Leukocytosis probable related to Steroid use titrating dosages decreased to 30 mg daily and will continue to decrease every three days. Code Status DNR/DNI Prophylaxis -GI -lansoprazole/sucralfate -DVT -SCD/apixaban will provide DVT prophylaxis. Holding apixaban for HD catheter insertion Code Status: DNR/DNI Discussed Condition With: Patient and nurse. Discharge Planning: expected in one to two days.
[2018-06-15] MEDS: Insulin NovoLOG Aspart Correctional Sugar Inj SQ SCH ×6 (03:06→23:59)
[2018-06-15 04:10] LABS: Hematocrit 26.5 % (39.0-51.0); Hemoglobin 8.5 gm/dL (13.0-17.0); Mean Corpuscular HGB Conc 32.1 % (32.0-36.0); Mean Corpuscular Hemoglobin 31.1 pg (27.0-34.0); Mean Corpuscular Volume 96.8 fL (80.0-100.0); Mean Platelet Volume 8.3 fL (7.0-11.0); Platelet Count 331 th/mm3 (150-450); Red Blood Count 2.74 mil/mm3 (4.50-5.90); Red Cell Distribution Width 14.2 % (11.6-17.2); White Blood Count 18.4 th/mm3 (4.0-11.0)
[2018-06-15 04:39] LABS: Albumin 2.6 g/dL (3.4-5.0); Calcium 8.2 mg/dL (8.5-10.1); Carbon Dioxide 26.1 meq/L (21.0-32.0); Phosphorus 5.2 mg/dL (2.5-4.9); Potassium 4.4 meq/L (3.5-5.1)
[2018-06-15] MEDS: Levothyroxine 100 MCG Tablet PO SCH (05:25)
[2018-06-15] MEDS: Levothyroxine 75 MCG Tablet PO SCH (05:25)
--- NOTE | 2018-06-15 09:23 | P.PNNP ---
Subjective Interval history: Resting. Remains anuric. Due for dialysis. Still with upper extremity edema and pain. <Devi Iqbal - Last Filed: 06/15/18 09:20> Physical Exam Vital signs: Vital Signs 06/14/18 16:00 06/14/18 20:35 06/15/18 00:05 Temperature 98.0 F 97.6 F 97.6 F Pulse Rate 71 77 53 L Respiratory Rate 18 17 16 Blood Pressure 120/58 L 122/56 L 116/53 L Pulse Oximetry 96 93 L 96 06/15/18 08:00 Temperature 97.5 F L Pulse Rate 63 Respiratory Rate 16 Blood Pressure 128/85 Pulse Oximetry 100 Intake & Output 06/14/18 06/15/18 06/15/18 18:59 06:59 18:59 Intake Total 960 / 960 Balance 960 / 960 Weight 104.8 kg Intake: Oral 960 / 960 Other: # Voids 0 Date of Last Bowel Movement 06/14/18 06/14/18 # Bowel Movements 1 - Constitutional no acute distress, obese, disheveled, cooperative - Routine HEENT Exam Head: Present: normocephalic - Routine Neck Exam Present: supple, full ROM - Routine Respiratory Exam Present: CTA bilaterally. Absent: accessory muscle use - Routine Cardiovascular Exam Present: RRR, S1, S2 - Routine Abdominal Exam Present: soft, normoactive bowel sounds - Routine Extremities Exam Present: edema, full ROM, pulses intact, normal capillary refill, tenderness - Routine Skin Exam Present: intact, dry, warm - Routine Neurological Exam Present: CN II-XII intact - Detailed Neurological Exam: Coma Scale Eye Opening: Spontaneous Verbal Response: Confused Motor Response: Obey commands Carrillo Coma Scale Total: 14 - Routine Psychiatric Exam Present: unable to assess - Urinary Catheter Management Coude Cath placed during this visit: yes, but has since been removed by the nurse Reason for continuing: Other continuation reason Insertion date: 05/31/18 Insertion time: 23:00 Removal date: 06/08/18 Removal time: 14:30 Indwelling Urethral Catheter Cath placed during this visit: yes, but has since been removed by the nurse Reason for continuing: Other continuation reason Removal date: 06/08/18 Removal time: 14:30 <Devi Iqbal - Last Filed: 06/15/18 09:20> Vital signs: Vital Signs 06/14/18 16:00 06/14/18 20:35 06/15/18 00:05 Temperature 98.0 F 97.6 F 97.6 F Pulse Rate 71 77 53 L Respiratory Rate 18 17 16 Blood Pressure 120/58 L 122/56 L 116/53 L Pulse Oximetry 96 93 L 96 06/15/18 08:00 Temperature 97.5 F L Pulse Rate 63 Respiratory Rate 16 Blood Pressure 128/85 Pulse Oximetry 100 Intake & Output 06/14/18 06/15/18 06/15/18 18:59 06:59 18:59 Intake Total 960 / 960 Output Total 3000 / 3000 Balance 960 / 960 -3000 / -3000 Weight 104.8 kg Intake: Oral 960 / 960 Output: Hemodialysis Amount 3000 / 3000 Other: # Voids 0 Date of Last Bowel Movement 06/14/18 06/14/18 # Bowel Movements 1 - Urinary Catheter Management Coude Cath placed during this visit: no Indwelling Urethral Catheter Cath placed during this visit: no <Norman Tabares - Last Filed: 06/15/18 13:45> Assessment and Plan - Assessment (1) Acute on chronic kidney failure Code(s): N17.9 - Acute kidney failure, unspecified; N18.9 - Chronic kidney disease, unspecified Status: Acute Qualifiers: Acute renal failure type: unspecified Chronic kidney disease stage: stage 3 (moderate) Qualified Code(s): N17.9 - Acute kidney failure, unspecified; N18.3 - Chronic kidney disease, stage 3 (moderate) Plan: His baseline is 2.5-2.7 (CKD 3-4). Most likely has underlying diabetic nephropathy. Follows with Dr. Phillip in [place]. Oliguric renal failure, ATN. Vascath replaced 06/14. HD started 06/06. HD is MWF. Due today. Apixaban will need to be held x 48 hrs when WBC improves. Avoid IVF administration. Obtain daily labs Avoid nephrotoxic agents. Monitor for signs of renal recovery. He may have reached ESRD. Palliative has met with the son. He would like to see if HD improves his mentation before making decision to go with hospice. (2) Acute alteration in mental status Code(s): R41.82 - Altered mental status, unspecified Status: Acute Plan: Most likely is due to uremia, infection. Improved. (3) Septic shock Code(s): A41.9 - Sepsis, unspecified organism; R65.21 - Severe sepsis with septic shock Status: Acute Plan: He is off antibiotics per ID. continue supportive care He was treated for UTI and pneumonia. (4) Diabetes mellitus Code(s): E11.9 - Type 2 diabetes mellitus without complications Status: Acute Plan: Maintain blood glucose 140-180 mg/dL while admitted. <Devi Iqbal - Last Filed: 06/15/18 09:20> - Assessment (1) Acute on chronic kidney failure Code(s): N17.9 - Acute kidney failure, unspecified; N18.9 - Chronic kidney disease, unspecified Status: Acute Qualifiers: Acute renal failure type: unspecified Chronic kidney disease stage: stage 3 (moderate) Qualified Code(s): N17.9 - Acute kidney failure, unspecified; N18.3 - Chronic kidney disease, stage 3 (moderate) (2) Acute alteration in mental status Code(s): R41.82 - Altered mental status, unspecified Status: Acute (3) Septic shock Code(s): A41.9 - Sepsis, unspecified organism; R65.21 - Severe sepsis with septic shock Status: Acute (4) Diabetes mellitus Code(s): E11.9 - Type 2 diabetes mellitus without complications Status: Acute - Attending Attestation patient was seen and examined. Agree with above assessment and plan. Vascath with poor blood flow rate. Needs PermCath. Leukocytosis is most likely secondary to Prednisone. <Norman Tabares - Last Filed: 06/15/18 13:45>
[2018-06-15] MEDS: Heparin 10,000 UNITS/10 ML Vial (for IV use) OTHER PRN (11:37)
[2018-06-15] MEDS: Hypromellose 0.3% Opth Gel 10 GM Bottle EACH EYE SCH ×2 (12:55→21:04)
[2018-06-15] MEDS: Nystatin/Diphenhydramine/Lidocaine Mouthwash (Adult) 120 ML Botttle SWISH-SWAL SCH ×4 (12:55→21:02)
[2018-06-15] MEDS: Clotrimazole 1% Cream 15 GM Tube TOPICAL SCH ×2 (12:55→21:04)
[2018-06-15] MEDS: Ferrrous Sulfate 300 MG/5 ML UDC PO SCH (14:30)
[2018-06-15] MEDS: Ascorbic Acid 500 MG Tablet PO SCH (14:30)
[2018-06-15] MEDS: Carvedilol 6.25 MG Tablet PO SCH ×2 (14:31→21:02)
[2018-06-15] MEDS: Pregabalin 75 MG Capsule PO SCH ×2 (14:31→21:02)
[2018-06-15] MEDS: Amiodarone 200 MG Tablet PO SCH ×2 (14:31→21:02)
[2018-06-15] MEDS: Doxazosin 1 MG Tablet PO SCH (14:31)
[2018-06-15] MEDS: Polyethylene Glycol 3350 17 GM Packet NG/OG SCH ×2 (14:31→21:01)
[2018-06-15] MEDS: predniSONE 20 MG Tablet PO SCH (14:31)
--- NOTE | 2018-06-15 15:16 | P.PN ---
Subjective Interval history: drug safety specialist notes: 05/31: This is a 72-year-old male. He is a resident of [facility]. Date of admission 05/30/2018. Originally admitted to hospitalist service and now under our service 05/31/2018. Past medical history includes fibromyalgia, dementia, history of CVA, obstructive sleep apnea, atrial fibrillation/chronic, COPD, chronic kidney disease stage IV, BPH, diabetes mellitus, elevated BMI, atherosclerotic vascular disease, nephrolithiasis, liver cirrhosis, essential hypertension, hyperlipidemia, gout, history of right ice C occlusion, hypothyroidism, dysphagia, constipation, diplopia, CABG 2, TURP, cardiac stent, right percutaneous lithotripsy, liver biopsy and bilateral hand surgery. Patient is also on chronic benzodiazepines. Patient presented to [facility] on 05/30/2018 with history of being found on the floor between his bed in the window. His head was against the dresser. He was able to tell if he hit his head. There is a large amount about was in the floor but not bleeding from the head. He has excoriations on his back and his left knee and right wrist. CT brain at this facility was negative. Patient is on apixaban and aspirin at home. Patient was noted to have a urinary tract infection was started on cefepime and gentamicin by ED physician. Throughout the night, patient became more confused and is found to be obtunded earlier this morning was intubated and centralized placed due to hypotension. He is currently on norepinephrine drip at 12 mcg/min. Troponin was 0.05. Patient had a leukocytosis, normocytic anemia, creatinine 6.6/ baseline around 2.5 and TSH is 0.356. We are asked to admit the patient at this time. He is currently intubated and arousable in room C 25 in ED. No family available. 06/01: Remains sedated, orally intubated on mechanical ventilation. Had generalized tonic-clonic movements which were questionable last night for which he was given Ativan 4 mg IV and loaded with Cerebyx. EEG this morning pending. Neurology consult noted. Head CT negative for bleed. Negligible urine output. Worsening BUN/creatinine. On vasopressin low-dose currently, off all other pressors. 06/02: Remains sedated, arousable, orally intubated on mechanical ventilation. Not following commands unenlightening sedation. 06/03: Arouses off sedation, not following commands. Orally intubated on mechanical ventilation. On CPAP trials. 06/04: More awake today tracking. Intermittently follows commands on upper and lower extremities. Remains on Sujit-Synephrine and vasopressin. Also change amiodarone to p.o. BUN climbing 104 today, creatinine stable at 5.7. May need to start hemodialysis will discuss with nephrology 06/05: Patient was extubated yesterday, breathing well respiratory graf tolerating. Remains confused but follows commands continues to have some garbled speech. Creatinine is 5.65 BUN 108 today. Still making urine nephrology wants to hold off HD another day and monitor. UO 1.1 L in 24 hours 06/06: Patient is more critical today. He is more lethargic with worsening uremia BUN 124 creatinine 6.5. If family agreeable with hemodialysis I will place a Vas-Cath today. Give 1 dose of digoxin, start Coreg 6.25 mg twice daily , and restart p.o. amiodarone to wean off amiodarone infusion. 06/07: Started on hemodialysis yesterday, 1.3 L removed. Currently receiving hemodialysis heart rate better controlled in mid 80s. P.o. amiodarone and Coreg started yesterday. Right wrist remains swollen tender. XR negative. 06/08: Breathing comfortably. CXR clear. Remains edematous in both arms. Will remove central line.. Tolerating beta-alton now. 06/09: Tolerating hemodialysis this morning. Heart rate control acceptable. 06/10: Remains generally edematous. Dialysis successfully removing volume. He has failed swallow eval several days now. Complains of sore throat today. 06/11: Remains generally edematous. Swallowing difficulties presently being evaluated. Right wrist and hand pain under evaluation. Patient continues to express his desire to , appears to have lost hope. Hospitalist Notes: 06/13: Stable seen in his bedroom, he will be transferred later today for a PermCath placement at this time no complaint, obese patient. 06/14: Seen in his bedroom stable no complaint, confused. discussed with nurse and on MDR, his son is awaiting for Nephrology specialist if the patient improves his renal function to elect for Hospice versus transfer to SNF. no nausea, vomit or diarrhea. 8/24: Patient discussed on MDR, continue with pain on the right arm evaluated no signs of infection, had wrist x ray found OA. no nausea, vomit or diarrhea. Physical Exam Vital signs: Vital Signs 06/14/18 16:00 06/14/18 20:35 06/15/18 00:05 Temperature 98.0 F 97.6 F 97.6 F Pulse Rate 71 77 53 L Respiratory Rate 18 17 16 Blood Pressure 120/58 L 122/56 L 116/53 L Pulse Oximetry 96 93 L 96 06/15/18 08:00 Temperature 97.5 F L Pulse Rate 63 Respiratory Rate 16 Blood Pressure 128/85 Pulse Oximetry 100 Intake & Output 06/14/18 06/15/18 06/15/18 18:59 06:59 18:59 Intake Total 960 / 960 Output Total 3000 / 3000 Balance 960 / 960 -3000 / -3000 Weight 104.8 kg Intake: Oral 960 / 960 Output: Hemodialysis Amount 3000 / 3000 Other: # Voids 0 Date of Last Bowel Movement 06/14/18 06/14/18 # Bowel Movements 1 Narrative: GENERAL: NO acute distress. SKIN: Warm and dry. Some generalized swelling around the right and left arms and wrists HEAD: Atraumatic. Normocephalic. EYES: Pupils equal and round bilaterally. No scleral icterus. No injection or drainage. ENT: No nasal bleeding or discharge. NECK: no JVD, no lymphadenopathy, CARDIOVASCULAR: S1-S2 , no gallop or murmur. Chronic A. fib, rate controlled RESPIRATORY: Air entry diminished bilaterally, comfortable pattern. No crackles. GASTROINTESTINAL: Abdomen soft, non-tender, obese, active bowel sounds. No guarding. MUSCULOSKELETAL: Extremities with pitting bilateral lower extremity edema. Right wrist tender slightly swollen, mild erythema. NEUROLOGICAL: no acute distress. - Urinary Catheter Management Coude Cath placed during this visit: yes, but has since been removed by the nurse Reason for continuing: Other continuation reason Insertion date: 05/31/18 Insertion time: 23:00 Removal date: 06/08/18 Removal time: 14:30 Indwelling Urethral Catheter Cath placed during this visit: yes, but has since been removed by the nurse Reason for continuing: Other continuation reason Removal date: 06/08/18 Removal time: 14:30 Results - Labs CBC & Chem 7: 06/15/18 03:31 06/15/18 03:31 Laboratory Results - last 24 hr 06/14/18 06/14/18 06/14/18 17:44 20:29 23:12 WBC RBC Hgb Hct MCV MCH MCHC RDW Plt Count MPV Sodium Potassium Chloride Carbon Dioxide Anion Gap BUN Creatinine Estimated GFR POC Glucose 167 H 205 H 213 H Random Glucose Calcium Phosphorus Albumin 06/15/18 06/15/18 06/15/18 03:31 03:31 09:00 WBC 18.4 H RBC 2.74 L Hgb 8.5 L Hct 26.5 L MCV 96.8 MCH 31.1 MCHC 32.1 RDW 14.2 Plt Count 331 MPV 8.3 Sodium 136 Potassium 4.4 Chloride 97 L Carbon Dioxide 26.1 Anion Gap 13 BUN 79 H Creatinine 8.37 H Estimated GFR 6 L POC Glucose 144 H Random Glucose 136 H Calcium 8.2 L Phosphorus 5.2 H Albumin 2.6 L 06/15/18 11:45 WBC RBC Hgb Hct MCV MCH MCHC RDW Plt Count MPV Sodium Potassium Chloride Carbon Dioxide Anion Gap BUN Creatinine Estimated GFR POC Glucose 110 Random Glucose Calcium Phosphorus Albumin Microbiology 06/13/18 16:30 Catheter Tip - Central Venous Line Wound Culture - Final - Procedures Catheter Placement 06/14/18 08:00 CONCLUSION: 1. Uncomplicated line placement as above. Assessment and Plan - Plan 1. Acute Encephalopathy likely toxic metabolic secondary to severe sepsis/Uremia , Improving but continue Demented. CVA Dementia Chronic Benzodiazepine use Remains off all sedation. Goal of RASS -0 CT brain on admission revealed no acute intracranial findings Pregabalin 75 mg BID for peripheral Neuropathy, Previously for possible seizure, loaded with Cerebyx. EEG moderate encephalopathy no seizures. Neuro following. Repeat head CT negative for bleed 2. Septic Shock requiring Vasopressors-resolved Atrial Fibrillation rate controlled Chronic systolic heart failure EF 40-45% 07/09 Hypertension history of CABG x 2, Coronary artery stenting. 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 on Amiodarone 200 mg BID, Coreg 6.25 mg BID< 2D echo 07/09 revealed EF of 40-45%. LV dilatation. PAP 31 mmHg. Basilar inferolateral and inferior lateral hypokinesis. Repeat echocardiogram: Moderate concentric left ventricular hypertrophy. LVEF 60-65%. Estimated PASP is 63.3 mmHg. [id number] pulmonary hypertension present (range 60-70 mmHg). Heart catheterization 09/08 revealed patent LAURA to LAD and SVG to RCA. 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 Aspirin 81 mg daily/home medication. Continue atorvastatin 40 mg daily for dyslipidemia Apixaban 2.5 mg twice daily on hold for HD catheter placement Holding diltiazem 120 mg daily, lisinopril 40 mg daily and metoprolol tartrate 100 mg twice daily/home medications Continue Bumex per nephrology Hemodialysis and antihypertensive meds per nephrology service. 3. VDRF improved, WERNER/COPD, bronchodilator, Mucolytic and incentive spirometry. 4. GERD on gastric protection 5. Acute Kidney Injury in the setting of CKD IV, Nephrology following, PermCath not placed by IR due to Leukocytosis. Continue HD, has cath on right upper chest, complaint of Right arm edema and pain 6. DM II/Hypothyroidism/history of Gout sliding scale, levothyroxine, Long lasting insulin, today on hold some medicines he is NPO will need to restart management after PermCath placement. 7. Proteus UTI/Ceftriaxone for UTI proteus, ID following, Infectious disease following. Received cefepime and gentamicin in the ED. CT abdomen/pelvis with nonobstructing right renal stone 8. Leukocytosis probable related to Steroid use titrating dosages decreased to 30 mg daily and will continue to decrease every three days. Prophylaxis -GI -lansoprazole/sucralfate -DVT -SCD/apixaban will provide DVT prophylaxis. Holding apixaban for HD catheter insertion Code Status: DNR/DNI Discussed Condition With: Patient and nurse Discharge Planning: His son awaiting if the patient improves Mentation before decision for Hospice care Versus SNF
[2018-06-16] MEDS: Insulin NovoLOG Aspart Correctional Sugar Inj SQ SCH ×6 (04:23→23:54)
[2018-06-16] MEDS: Levothyroxine 75 MCG Tablet PO SCH (05:47)
[2018-06-16] MEDS: Levothyroxine 100 MCG Tablet PO SCH (05:47)
[2018-06-16] MEDS: Carvedilol 6.25 MG Tablet PO SCH ×2 (09:16→21:27)
[2018-06-16] MEDS: Doxazosin 1 MG Tablet PO SCH (09:16)
[2018-06-16] MEDS: Amiodarone 200 MG Tablet PO SCH ×2 (09:17→21:27)
[2018-06-16] MEDS: Pregabalin 75 MG Capsule PO SCH ×2 (09:17→21:27)
[2018-06-16] MEDS: Ascorbic Acid 500 MG Tablet PO SCH (09:17)
[2018-06-16] MEDS: Ferrrous Sulfate 300 MG/5 ML UDC PO SCH (09:17)
[2018-06-16] MEDS: Polyethylene Glycol 3350 17 GM Packet NG/OG SCH ×2 (09:17→21:27)
[2018-06-16] MEDS: Nystatin/Diphenhydramine/Lidocaine Mouthwash (Adult) 120 ML Botttle SWISH-SWAL SCH ×4 (09:18→21:28)
[2018-06-16] MEDS: Hypromellose 0.3% Opth Gel 10 GM Bottle EACH EYE SCH ×2 (09:19→21:28)
[2018-06-16] MEDS: Clotrimazole 1% Cream 15 GM Tube TOPICAL SCH ×2 (09:19→21:28)
[2018-06-16] MEDS: predniSONE 10 MG Tablet PO SCH (09:29)
--- NOTE | 2018-06-16 13:00 | P.PN ---
Subjective Interval history: medical reimbursement specialist notes: 05/31: This is a 72-year-old male. He is a resident of [facility] and [facility]. Date of admission 05/30/2018. Originally admitted to hospitalist service and now under our service 05/31/2018. Past medical history includes fibromyalgia, dementia, history of CVA, obstructive sleep apnea, atrial fibrillation/chronic, COPD, chronic kidney disease stage IV, BPH, diabetes mellitus, elevated BMI, atherosclerotic vascular disease, nephrolithiasis, liver cirrhosis, essential hypertension, hyperlipidemia, gout, history of right ice C occlusion, hypothyroidism, dysphagia, constipation, diplopia, CABG 2, TURP, cardiac stent, right percutaneous lithotripsy, liver biopsy and bilateral hand surgery. Patient is also on chronic benzodiazepines. Patient presented to [facility] on 05/30/2018 with history of being found on the floor between his bed in the window. His head was against the dresser. He was able to tell if he hit his head. There is a large amount about was in the floor but not bleeding from the head. He has excoriations on his back and his left knee and right wrist. CT brain at this facility was negative. Patient is on apixaban and aspirin at home. Patient was noted to have a urinary tract infection was started on cefepime and gentamicin by ED physician. Throughout the night, patient became more confused and is found to be obtunded earlier this morning was intubated and centralized placed due to hypotension. He is currently on norepinephrine drip at 12 mcg/min. Troponin was 0.05. Patient had a leukocytosis, normocytic anemia, creatinine 6.6/ baseline around 2.5 and TSH is 0.356. We are asked to admit the patient at this time. He is currently intubated and arousable in room C 25 in ED. No family available. 06/01: Remains sedated, orally intubated on mechanical ventilation. Had generalized tonic-clonic movements which were questionable last night for which he was given Ativan 4 mg IV and loaded with Cerebyx. EEG this morning pending. Neurology consult noted. Head CT negative for bleed. Negligible urine output. Worsening BUN/creatinine. On vasopressin low-dose currently, off all other pressors. 06/02: Remains sedated, arousable, orally intubated on mechanical ventilation. Not following commands unenlightening sedation. 06/03: Arouses off sedation, not following commands. Orally intubated on mechanical ventilation. On CPAP trials. 06/04: More awake today tracking. Intermittently follows commands on upper and lower extremities. Remains on Sujit-Synephrine and vasopressin. Also change amiodarone to p.o. BUN climbing 104 today, creatinine stable at 5.7. May need to start hemodialysis will discuss with nephrology 06/05: Patient was extubated yesterday, breathing well respiratory graf tolerating. Remains confused but follows commands continues to have some garbled speech. Creatinine is 5.65 BUN 108 today. Still making urine nephrology wants to hold off HD another day and monitor. UO 1.1 L in 24 hours 06/06: Patient is more critical today. He is more lethargic with worsening uremia BUN 124 creatinine 6.5. If family agreeable with hemodialysis I will place a Vas-Cath today. Give 1 dose of digoxin, start Coreg 6.25 mg twice daily , and restart p.o. amiodarone to wean off amiodarone infusion. 06/07: Started on hemodialysis yesterday, 1.3 L removed. Currently receiving hemodialysis heart rate better controlled in mid 80s. P.o. amiodarone and Coreg started yesterday. Right wrist remains swollen tender. XR negative. 06/08: Breathing comfortably. CXR clear. Remains edematous in both arms. Will remove central line.. Tolerating beta-alton now. 06/09: Tolerating hemodialysis this morning. Heart rate control acceptable. 06/10: Remains generally edematous. Dialysis successfully removing volume. He has failed swallow eval several days now. Complains of sore throat today. 06/11: Remains generally edematous. Swallowing difficulties presently being evaluated. Right wrist and hand pain under evaluation. Patient continues to express his desire to , appears to have lost hope. Hospitalist Notes: 06/13: Stable seen in his bedroom, he will be transferred later today for a PermCath placement at this time no complaint, obese patient. 06/14: Seen in his bedroom stable no complaint, confused. discussed with nurse and on MDR, his son is awaiting for Nephrology specialist if the patient improves his renal function to elect for Hospice versus transfer to SNF. 06/15: Patient discussed on MDR, continue with pain on the right arm evaluated no signs of infection, had wrist x ray found OA. 06/16: Seen in his bedroom and discussed with nurse Miss Albarran, no changes to anterior assessment His mentation remains stable no nausea, vomit or diarrhea. Physical Exam Vital signs: Vital Signs 06/15/18 16:00 06/15/18 20:25 06/15/18 23:56 Temperature 98.4 F 98.2 F 98.6 F Pulse Rate 71 71 58 L Respiratory Rate 16 18 18 Blood Pressure 100/44 L 111/53 L 112/52 L Pulse Oximetry 100 100 99 06/16/18 08:00 06/16/18 12:00 Temperature 97.6 F 97.8 F Pulse Rate 65 64 Respiratory Rate 16 18 Blood Pressure 123/58 L 103/44 L Pulse Oximetry 96 100 Intake & Output 06/15/18 06/16/18 06/16/18 18:59 06:59 18:59 Intake Total 820 / 820 780 / 780 Output Total 3300 / 3300 Balance -2480 / -2480 780 / 780 Weight 104.8 kg Intake: IV 100 / 100 Oral 820 / 820 680 / 680 Output: Urine 300 / 300 Hemodialysis Amount 3000 / 3000 Other: # Voids 2 Date of Last Bowel Movement 06/15/18 # Bowel Movements 1 Narrative: GENERAL: NO acute distress. SKIN: Warm and dry. Some generalized swelling around the right and left arms and wrists HEAD: Atraumatic. Normocephalic. EYES: Pupils equal and round bilaterally. No scleral icterus. No injection or drainage. ENT: No nasal bleeding or discharge. NECK: no JVD, no lymphadenopathy, CARDIOVASCULAR: S1-S2 , no gallop or murmur. Chronic A. fib, rate controlled RESPIRATORY: Air entry diminished bilaterally, comfortable pattern. No crackles. GASTROINTESTINAL: Abdomen soft, non-tender, obese, active bowel sounds. No guarding. MUSCULOSKELETAL: Extremities with pitting bilateral lower extremity edema. Right wrist tender slightly swollen, mild erythema. NEUROLOGICAL: no acute distress. - Urinary Catheter Management Coude Cath placed during this visit: yes, but has since been removed by the nurse Reason for continuing: Other continuation reason Insertion date: 05/31/18 Insertion time: 23:00 Removal date: 06/08/18 Removal time: 14:30 Indwelling Urethral Catheter Cath placed during this visit: yes, but has since been removed by the nurse Reason for continuing: Other continuation reason Removal date: 06/08/18 Removal time: 14:30 Results - Labs CBC & Chem 7: 06/15/18 03:31 06/15/18 03:31 Laboratory Results - last 24 hr 06/15/18 06/15/18 06/15/18 18:10 20:55 23:49 POC Glucose 259 H 264 H 164 H 06/16/18 06/16/18 06/16/18 03:46 09:11 11:31 POC Glucose 127 H 147 H 179 H Microbiology 06/13/18 16:30 Catheter Tip - Central Venous Line Wound Culture - Final Assessment and Plan - Plan 1. Acute Encephalopathy likely toxic metabolic secondary to severe sepsis/Uremia , I think at this time at baseline. he is pleasantly demented. CVA Dementia Chronic Benzodiazepine use Remains off all sedation. Goal of RASS -0 CT brain on admission revealed no acute intracranial findings Pregabalin 75 mg BID for peripheral Neuropathy, Previously for possible seizure, loaded with Cerebyx. EEG moderate encephalopathy no seizures. Neuro following. Repeat head CT negative for bleed 2. Septic Shock requiring Vasopressors-resolved Atrial Fibrillation rate controlled Chronic systolic heart failure EF 40-45% 07/09 Hypertension history of CABG x 2, Coronary artery stenting. 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 on Amiodarone 200 mg BID, Coreg 6.25 mg BID< 2D echo 07/09 revealed EF of 40-45%. LV dilatation. PAP 31 mmHg. Basilar inferolateral and inferior lateral hypokinesis. Repeat echocardiogram: Moderate concentric left ventricular hypertrophy. LVEF 60-65%. Estimated PASP is 63.3 mmHg. [id number] pulmonary hypertension present (range 60-70 mmHg). Heart catheterization 09/08 revealed patent LAURA to LAD and SVG to RCA. 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 Aspirin 81 mg daily/home medication. Continue atorvastatin 40 mg daily for dyslipidemia Apixaban 2.5 mg twice daily on hold for HD catheter placement Holding diltiazem 120 mg daily, lisinopril 40 mg daily and metoprolol tartrate 100 mg twice daily/home medications Continue Bumex per nephrology Hemodialysis and antihypertensive meds per nephrology service. 3. VDRF improved, WERNER/COPD, bronchodilator, Mucolytic and incentive spirometry. 4. GERD on gastric protection 5. Acute Kidney Injury in the setting of CKD III, Nephrology following. on HD M/ W/F 6. DM II/Hypothyroidism/history of Gout sliding scale, levothyroxine, Long lasting insulin, controlled in am. 7. Proteus UTI/Ceftriaxone for UTI proteus, ID following, Infectious disease following. Received cefepime and gentamicin in the ED. CT abdomen/pelvis with nonobstructing right renal stone, Treated. Prophylaxis -GI -lansoprazole/sucralfate -DVT -SCD/apixaban will provide DVT prophylaxis. Holding apixaban for HD catheter insertion Code Status: DNR/DNI Discussed Condition With: Patient and nurse Discharge Planning: Awaiting final by Palliative care his son will decide between Hospice and SNF.
--- NOTE | 2018-06-16 13:45 | P.PNNP ---
Subjective Interval history: Patient had dialysis yesterday complaining of right hand pain and itching Physical Exam Vital signs: Vital Signs 06/15/18 16:00 06/15/18 20:25 06/15/18 23:56 Temperature 98.4 F 98.2 F 98.6 F Pulse Rate 71 71 58 L Respiratory Rate 16 18 18 Blood Pressure 100/44 L 111/53 L 112/52 L Pulse Oximetry 100 100 99 06/16/18 08:00 06/16/18 12:00 Temperature 97.6 F 97.8 F Pulse Rate 65 64 Respiratory Rate 16 18 Blood Pressure 123/58 L 103/44 L Pulse Oximetry 96 100 Intake & Output 06/15/18 06/16/18 06/16/18 18:59 06:59 18:59 Intake Total 820 / 820 780 / 780 Output Total 3300 / 3300 Balance -2480 / -2480 780 / 780 Weight 104.8 kg Intake: IV 100 / 100 Oral 820 / 820 680 / 680 Output: Urine 300 / 300 Hemodialysis Amount 3000 / 3000 Other: # Voids 2 Date of Last Bowel Movement 06/15/18 # Bowel Movements 1 - Constitutional no acute distress - Routine HEENT Exam Eye: Present: EOMI - Routine Neck Exam Present: supple - Routine Respiratory Exam Present: decreased breath sounds - Routine Cardiovascular Exam Present: irregular rhythm - Routine Abdominal Exam Present: soft, normoactive bowel sounds - Routine Extremities Exam Present: edema - Urinary Catheter Management Coude Cath placed during this visit: yes, but has since been removed by the nurse Reason for continuing: Other continuation reason Insertion date: 05/31/18 Insertion time: 23:00 Removal date: 06/08/18 Removal time: 14:30 Indwelling Urethral Catheter Cath placed during this visit: yes, but has since been removed by the nurse Reason for continuing: Other continuation reason Removal date: 06/08/18 Removal time: 14:30 Assessment and Plan - Assessment (1) Acute on chronic kidney failure Code(s): N17.9 - Acute kidney failure, unspecified; N18.9 - Chronic kidney disease, unspecified Status: Acute Qualifiers: Acute renal failure type: unspecified Chronic kidney disease stage: stage 3 (moderate) Qualified Code(s): N17.9 - Acute kidney failure, unspecified; N18.3 - Chronic kidney disease, stage 3 (moderate) (2) Diabetes mellitus Code(s): E11.9 - Type 2 diabetes mellitus without complications Status: Acute - Plan His baseline is 2.5-2.7 (CKD 3-4). Most likely has underlying diabetic nephropathy. Follows with Dr. Phillip in [place]. Oliguric renal failure, ATN. Patient remains on dialysis on Monday and Monday Continue to monitor for further improvement
--- NOTE | 2018-06-16 18:12 | US ---
EXAM DATE: 06/16/2018 6:06 PM EDT AGE/SEX: 72 years / Male INDICATIONS: Right arm swelling. CLINICAL DATA: This is the patient's subsequent encounter. Patient reports that signs and symptoms h ave been present for 4 - 6 days and indicates a pain score of 8/10. MEDICAL/SURGICAL HISTORY: . Chronic obstructive pulmonary disease. Hypertension. Congestive hea rt failure. Atrial fibrillation. BPH. Diabetes. Hypothyroidism. PTSD. Sleep apnea. CABG. COMPARISON: [facility] [place], [place] VENOUS DOPPLER ARM RIGHT, 06/07/2018. . FINDINGS: The vessels are compressible and augmentation response is documented. No filling defects a re seen. The flow is phasic with respiration. Other: A central line is located in the internal jugular vein. Therefore, this vessel is not optimal ly evaluated. CONCLUSION: No venous thrombosis is identified in the right upper extremity. The right internal jugular vein was not optimally evaluated secondary to central line. Electronically signed by: Ashvin Meza MD 06/16/2018 6:11 PM EDT
[2018-06-17] MEDS: Insulin NovoLOG Aspart Correctional Sugar Inj SQ SCH ×5 (04:20→20:35)
[2018-06-17] MEDS: Levothyroxine 100 MCG Tablet PO SCH (05:19)
[2018-06-17] MEDS: Levothyroxine 75 MCG Tablet PO SCH (05:19)
[2018-06-17 06:29] LABS: Hematocrit 24.6 % (39.0-51.0); Mean Corpuscular HGB Conc 32.6 % (32.0-36.0); Mean Corpuscular Hemoglobin 31.2 pg (27.0-34.0); Mean Corpuscular Volume 95.7 fL (80.0-100.0); Mean Platelet Volume 8.4 fL (7.0-11.0); Platelet Count 317 th/mm3 (150-450); Red Blood Count 2.57 mil/mm3 (4.50-5.90); Red Cell Distribution Width 14.2 % (11.6-17.2); White Blood Count 10.6 th/mm3 (4.0-11.0)
[2018-06-17 07:22] LABS: Calcium 7.8 mg/dL (8.5-10.1); Carbon Dioxide 27.4 meq/L (21.0-32.0)
[2018-06-17] MEDS: Doxazosin 1 MG Tablet PO SCH (09:17)
[2018-06-17] MEDS: Carvedilol 6.25 MG Tablet PO SCH ×2 (09:17→20:36)
[2018-06-17] MEDS: Ferrrous Sulfate 300 MG/5 ML UDC PO SCH (09:24)
[2018-06-17] MEDS: Hypromellose 0.3% Opth Gel 10 GM Bottle EACH EYE SCH ×2 (09:25→20:36)
[2018-06-17] MEDS: Amiodarone 200 MG Tablet PO SCH ×2 (09:25→20:36)
[2018-06-17] MEDS: predniSONE 10 MG Tablet PO SCH (09:25)
[2018-06-17] MEDS: Clotrimazole 1% Cream 15 GM Tube TOPICAL SCH ×2 (09:25→20:36)
[2018-06-17] MEDS: Pregabalin 75 MG Capsule PO SCH ×2 (09:26→20:38)
[2018-06-17] MEDS: Polyethylene Glycol 3350 17 GM Packet NG/OG SCH ×2 (09:26→20:37)
[2018-06-17] MEDS: Nystatin/Diphenhydramine/Lidocaine Mouthwash (Adult) 120 ML Botttle SWISH-SWAL SCH ×4 (09:26→20:36)
[2018-06-17] MEDS: Ascorbic Acid 500 MG Tablet PO SCH (09:27)
--- NOTE | 2018-06-17 14:10 | P.PN ---
Subjective Interval history: order entry specialist notes: 05/31: This is a 72-year-old male. He is a resident of [facility] and [facility]. Date of admission 05/30/2018. Originally admitted to hospitalist service and now under our service 05/31/2018. Past medical history includes fibromyalgia, dementia, history of CVA, obstructive sleep apnea, atrial fibrillation/chronic, COPD, chronic kidney disease stage IV, BPH, diabetes mellitus, elevated BMI, atherosclerotic vascular disease, nephrolithiasis, liver cirrhosis, essential hypertension, hyperlipidemia, gout, history of right ice C occlusion, hypothyroidism, dysphagia, constipation, diplopia, CABG 2, TURP, cardiac stent, right percutaneous lithotripsy, liver biopsy and bilateral hand surgery. Patient is also on chronic benzodiazepines. Patient presented to [facility] on 05/30/2018 with history of being found on the floor between his bed in the window. His head was against the dresser. He was able to tell if he hit his head. There is a large amount about was in the floor but not bleeding from the head. He has excoriations on his back and his left knee and right wrist. CT brain at this facility was negative. Patient is on apixaban and aspirin at home. Patient was noted to have a urinary tract infection was started on cefepime and gentamicin by ED physician. Throughout the night, patient became more confused and is found to be obtunded earlier this morning was intubated and centralized placed due to hypotension. He is currently on norepinephrine drip at 12 mcg/min. Troponin was 0.05. Patient had a leukocytosis, normocytic anemia, creatinine 6.6/ baseline around 2.5 and TSH is 0.356. We are asked to admit the patient at this time. He is currently intubated and arousable in room C 25 in ED. No family available. 06/01: Remains sedated, orally intubated on mechanical ventilation. Had generalized tonic-clonic movements which were questionable last night for which he was given Ativan 4 mg IV and loaded with Cerebyx. EEG this morning pending. Neurology consult noted. Head CT negative for bleed. Negligible urine output. Worsening BUN/creatinine. On vasopressin low-dose currently, off all other pressors. 06/02: Remains sedated, arousable, orally intubated on mechanical ventilation. Not following commands unenlightening sedation. 06/03: Arouses off sedation, not following commands. Orally intubated on mechanical ventilation. On CPAP trials. 06/04: More awake today tracking. Intermittently follows commands on upper and lower extremities. Remains on Sujit-Synephrine and vasopressin. Also change amiodarone to p.o. BUN climbing 104 today, creatinine stable at 5.7. May need to start hemodialysis will discuss with nephrology 06/05: Patient was extubated yesterday, breathing well respiratory graf tolerating. Remains confused but follows commands continues to have some garbled speech. Creatinine is 5.65 BUN 108 today. Still making urine nephrology wants to hold off HD another day and monitor. UO 1.1 L in 24 hours 06/06: Patient is more critical today. He is more lethargic with worsening uremia BUN 124 creatinine 6.5. If family agreeable with hemodialysis I will place a Vas-Cath today. Give 1 dose of digoxin, start Coreg 6.25 mg twice daily , and restart p.o. amiodarone to wean off amiodarone infusion. 06/07: Started on hemodialysis yesterday, 1.3 L removed. Currently receiving hemodialysis heart rate better controlled in mid 80s. P.o. amiodarone and Coreg started yesterday. Right wrist remains swollen tender. XR negative. 06/08: Breathing comfortably. CXR clear. Remains edematous in both arms. Will remove central line.. Tolerating beta-alton now. 06/09: Tolerating hemodialysis this morning. Heart rate control acceptable. 06/10: Remains generally edematous. Dialysis successfully removing volume. He has failed swallow eval several days now. Complains of sore throat today. 06/11: Remains generally edematous. Swallowing difficulties presently being evaluated. Right wrist and hand pain under evaluation. Patient continues to express his desire to , appears to have lost hope. Hospitalist Notes: 06/13: Stable seen in his bedroom, he will be transferred later today for a PermCath placement at this time no complaint, obese patient. 06/14: Seen in his bedroom stable no complaint, confused. discussed with nurse and on MDR, his son is awaiting for Nephrology specialist if the patient improves his renal function to elect for Hospice versus transfer to SNF. 06/15: Patient discussed on MDR, continue with pain on the right arm evaluated no signs of infection, had wrist x ray found OA. 06/16: Seen in his bedroom and discussed with nurse Miss Albarran, no changes to anterior assessment His mentation remains stable 06/17: Discussed with nurse and patient, improving his mental condition, I think he is at baseline, pleasantly demented, continue with pain on the right wrist and hand asked for Orthopedic surgery consult and asked for MRI of the right hand, wrist and forearm. Physical Exam Vital signs: Vital Signs 06/16/18 16:00 06/16/18 20:00 06/17/18 00:00 Temperature 98.1 F 98.4 F 97.2 F L Pulse Rate 64 64 60 Respiratory Rate 18 16 16 Blood Pressure 104/42 L 109/55 L 127/58 L Pulse Oximetry 97 92 L 98 06/17/18 08:00 06/17/18 12:00 Temperature 97.5 F L 97.2 F L Pulse Rate 56 L 55 L Respiratory Rate 20 20 Blood Pressure 115/50 L 132/87 Pulse Oximetry 100 98 Intake & Output 06/16/18 06/17/18 06/17/18 18:59 06:59 18:59 Intake Total 800 / 800 Balance 800 / 800 Weight 104.1 kg Intake: Oral 800 / 800 Other: # Voids 1 0 Date of Last Bowel Movement 06/15/18 06/15/18 # Bowel Movements 1 Narrative: GENERAL: NO acute distress. SKIN: Warm and dry. Some generalized swelling around the right and left arms and wrists HEAD: Atraumatic. Normocephalic. EYES: Pupils equal and round bilaterally. No scleral icterus. No injection or drainage. ENT: No nasal bleeding or discharge. NECK: no JVD, no lymphadenopathy, CARDIOVASCULAR: S1-S2 , no gallop or murmur. Chronic A. fib, rate controlled RESPIRATORY: Air entry diminished bilaterally, comfortable pattern. No crackles. GASTROINTESTINAL: Abdomen soft, non-tender, obese, active bowel sounds. No guarding. MUSCULOSKELETAL: Extremities with pitting bilateral lower extremity edema. Right wrist tender slightly swollen, mild erythema. NEUROLOGICAL: no acute distress. - Urinary Catheter Management Coude Cath placed during this visit: yes, but has since been removed by the nurse Reason for continuing: Other continuation reason Insertion date: 05/31/18 Insertion time: 23:00 Removal date: 06/08/18 Removal time: 14:30 Indwelling Urethral Catheter Cath placed during this visit: yes, but has since been removed by the nurse Reason for continuing: Other continuation reason Removal date: 06/08/18 Removal time: 14:30 Results - Labs CBC & Chem 7: 06/17/18 05:17 06/18/18 09:50 Laboratory Results - last 24 hr 06/16/18 06/16/18 06/16/18 15:40 21:24 23:52 WBC RBC Hgb Hct MCV MCH MCHC RDW Plt Count MPV Sodium Potassium Chloride Carbon Dioxide Anion Gap BUN Creatinine Estimated GFR POC Glucose 244 H 418 H 328 H Random Glucose Calcium 06/17/18 06/17/18 06/17/18 04:12 05:17 05:17 WBC 10.6 RBC 2.57 L Hgb 8.0 L Hct 24.6 L MCV 95.7 MCH 31.2 MCHC 32.6 RDW 14.2 Plt Count 317 MPV 8.4 Sodium 137 Potassium 4.0 Chloride 97 L Carbon Dioxide 27.4 Anion Gap 13 BUN 64 H Creatinine 8.03 H Estimated GFR 7 L POC Glucose 276 H Random Glucose 237 H Calcium 7.8 L 06/17/18 06/17/18 08:10 11:44 WBC RBC Hgb Hct MCV MCH MCHC RDW Plt Count MPV Sodium Potassium Chloride Carbon Dioxide Anion Gap BUN Creatinine Estimated GFR POC Glucose 152 H 155 H Random Glucose Calcium - Imaging Impressions Venous Doppler Study 06/16/18 00:00 CONCLUSION: No venous thrombosis is identified in the right upper extremity. The right internal jugular vein was not optimally evaluated secondary to central line. - Procedures Catheter Placement 06/14/18 08:00 CONCLUSION: 1. Uncomplicated line placement as above. Assessment and Plan - Plan 1. Acute Encephalopathy likely toxic metabolic secondary to severe sepsis/Uremia , I think at this time at baseline. he is pleasantly demented. CVA Dementia Chronic Benzodiazepine use Remains off all sedation. Goal of RASS -0 CT brain on admission revealed no acute intracranial findings Pregabalin 75 mg BID for peripheral Neuropathy, Previously for possible seizure, loaded with Cerebyx. EEG moderate encephalopathy no seizures. Neuro following. Repeat head CT negative for bleed 2. Septic Shock requiring Vasopressors-resolved Atrial Fibrillation rate controlled Chronic systolic heart failure EF 40-45% 07/09 Hypertension history of CABG x 2, Coronary artery stenting. 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 on Amiodarone 200 mg BID, Coreg 6.25 mg BID< 2D echo 07/09 revealed EF of 40-45%. LV dilatation. PAP 31 mmHg. Basilar inferolateral and inferior lateral hypokinesis. Repeat echocardiogram: Moderate concentric left ventricular hypertrophy. LVEF 60-65%. Estimated PASP is 63.3 mmHg. [id number] pulmonary hypertension present (range 60-70 mmHg). Heart catheterization 09/08 revealed patent LAURA to LAD and SVG to RCA. 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 Aspirin 81 mg daily/home medication. Continue atorvastatin 40 mg daily for dyslipidemia Apixaban 2.5 mg twice daily on hold for HD catheter placement Holding diltiazem 120 mg daily, lisinopril 40 mg daily and metoprolol tartrate 100 mg twice daily/home medications Continue Bumex per nephrology Hemodialysis and antihypertensive meds per nephrology service. 3. VDRF improved, WERNER/COPD, bronchodilator, Mucolytic and incentive spirometry. 4. GERD on gastric protection 5. Acute Kidney Injury in the setting of CKD IV, Nephrology following. on HD M/W /F 6. DM II/Hypothyroidism/history of Gout sliding scale, levothyroxine, Long lasting insulin, Uncontrolled adjust medications. 7. Proteus UTI/Ceftriaxone for UTI proteus, ID following, Infectious disease following. Received cefepime and gentamicin in the ED. CT abdomen/pelvis with nonobstructing right renal stone, Treated. Prophylaxis -GI -lansoprazole/sucralfate -DVT -SCD/apixaban will provide DVT prophylaxis. Holding apixaban for HD catheter insertion Code Status: DNR Discussed Condition With: Patient and nurse. Discharge Planning: Discussed with development manager he will need to get Outpatient Hemodialysis awaiting final by Technician Anatomic Pathology.
--- NOTE | 2018-06-17 17:32 | P.CONOP ---
[facility] Orthopedics Consult Note - [facility] Consult date: 06/17/18 Chief complaint: AMS, UTI, Hypocalcemia, Acute on Chr Renal Failure Narrative: The patient is a 72-year-old dialysis patient with chronic four-month swelling right upper extremity. He has multiple medical problems. He has pain involving his entire right upper extremity which appears to be focused on his wrist. Plain x-rays do not show any significant arthritic change of the wrist joint itself. He has had 2 separate ultrasounds of the upper extremity to rule out venous obstruction and none has been found. He did have an infectious process when he first came in the hospital and the recent temporary catheter on the left was removed and an internal jugular catheter was placed on the right. He has significant amount of swelling of the right upper extremity which is about twice as big as his left upper extremity. He also has some discomfort in his left upper extremity. He also has bilateral lower extremity chronic swelling. He has had no erythema of his right upper extremity he is developed some weeping from the posterior aspect of his right arm where he has pooling of lymphedema. An MRI scan is now being ordered and pending. Review of Systems All other systems reviewed negative except as stated in [facility] - History History Provided By: Patient - Medical History Medical History: Medical History (Last Reviewed 06/15/18 @ 14:58 by Vinicio Rodriguez) BPH (benign prostatic hyperplasia) (Acute) Diabetes mellitus (Acute) Sleep apnea (Acute) PTSD (post-traumatic stress disorder) (Acute) COPD (chronic obstructive pulmonary disease) (Acute) Acute on chronic systolic (congestive) heart failure (Acute) Atrial fibrillation (Acute) Atherosclerotic cardiovascular disease (Acute) NSTEMI (non-ST elevated myocardial infarction) (Acute) Adjustment disorder Anginal equivalent Anticoagulant long-term use Chronic kidney disease, stage IV (severe) Chronic use of benzodiazepine for therapeutic purpose Coronary artery disease Dementia Dysphasia Essential hypertension Fibromyalgia Hyperlipidemia Nephrolithiasis Occlusion of right internal carotid artery Hypertension Hypothyroid - Surgical History Surgical History: Surgical History (Last Reviewed 06/14/18 @ 17:38 by Marialuisa Cedeño) Presence of coronary angioplasty implant and graft (Acute) H/O hand surgery H/O nephrostomy History of liver biopsy S/P TURP S/P coronary artery stent placement - Family History Family History: Family History (Last Reviewed 06/14/18 @ 17:38 by Marialuisa Cedñeo) Mother Family history of diabetes mellitus - Tobacco History Second Hand Smoke Exposure: No Tobacco Use In Past 30 Days: No Smoking Status: Former smoker Tobacco Type: Cigarettes Years Smoked: 30 Number of Pack Years (if former smoker): 30 - Alcohol History How Often Do You Have a Drink Containing Alcohol: Never - Substance Use History Substance History: No History of Abuse - Travel History Recent Travel in the [place] Within the Last 8 Weeks: No Recent Travel Out of the Country Within the Last 8 Weeks: No - Immunization History Tetanus Immunization: Unsure Hx Influenza Vaccine This Season: Yes Medications and Allergies Active Medications: Active Medications Acetaminophen (Tylenol) 650 mg PO UNSCH PRN PRN Reason: SEE LABEL COMMENTS Hydrocodone Bitart/Acetaminophen (Hycet 325/7.5 Mg Liq) 15 ml NG/OG Q6H PRN PRN Reason: PAIN 6-10;IF UNABLE TO TAKE PO Last Admin: 06/12/18 08:45 Dose: 15 ml Albuterol (Albuterol Neb (Prn)) 2.5 mg NEB Q2HR NEB PRN PRN Reason: SHORTNESS OF BREATH/WHEEZING Amiodarone HCl (Cordarone) 200 mg PO Q12HR [facility] Last Admin: 06/17/18 09:25 Dose: 200 mg Apixaban (Eliquis) 2.5 mg PO BID [facility] Last Admin: 06/15/18 14:30 Dose: 2.5 mg Artificial Tears (Genteal Severe Dry Eye Relief 0.3% Opth Gel) 1 drops EACH EYE BID [facility] Last Admin: 06/17/18 09:25 Dose: 1 drops Ascorbic Acid (Vitamin C) 500 mg PO DAILY [facility] Last Admin: 06/17/18 09:27 Dose: 500 mg Aspirin (Aspirin Chew) 81 mg PO DAILY [facility] Last Admin: 06/17/18 09:25 Dose: 81 mg Atorvastatin Calcium (Lipitor) 40 mg PO DAILY [facility] Last Admin: 06/17/18 09:25 Dose: 40 mg Bisacodyl (Dulcolax Supp) 10 mg RECTAL DAILY PRN PRN Reason: SEVERE CONSITIPATION Carvedilol (Coreg) 6.25 mg PO BID [facility] Last Admin: 06/17/18 09:17 Dose: Not Given Clotrimazole (Lotrimin 1% Cream) 1 applicatio TOPICAL BID [facility] Last Admin: 06/17/18 09:25 Dose: 1 applicatio Dextrose (D50w Vial) 50 ml IV.PUSH UNSCH PRN PRN Reason: PER HYPOGLYCEMIA PROTOCOL Last Admin: 05/31/18 21:56 Dose: 50 ml Doxazosin Mesylate (Cardura) 1 mg PO DAILY [facility] Last Admin: 06/17/18 09:17 Dose: Not Given Epoetin Bud (Epogen Inj) 10,000 unit IV.PUSH MOWEFR [facility] Last Admin: 06/15/18 11:37 Dose: 10,000 unit Ferrous Sulfate (Ferrrous Sulfate Liq) 300 mg PO DAILY [facility] Last Admin: 06/17/18 09:24 Dose: 300 mg Gelatin (Gelfoam 12 Mm/7 Mm Topical) 1 foam TOPICAL PRN PRN PRN Reason: help stop bleeding from site Gentamicin Sulfate (Gentamicin Inj) 20 mg OTHER WITH DIALYSIS PRN PRN Reason: Dwell Gentamycin Lock Last Admin: 06/15/18 11:38 Dose: 20 mg Glucagon (Glucagon Inj) 1 mg OTHER PRN PRN PRN Reason: for Hypoglycemia Protocol Heparin Sodium (Porcine) (Heparin Inj) 1,000 units OTHER WITH DIALYSIS PRN PRN Reason: Dwell Heparin to Fill Catheter Last Admin: 06/15/18 11:37 Dose: 1,000 units Heparin Sodium (Porcine) (Heparin Inj) 8,000 units OTHER WITH DIALYSIS PRN PRN Reason: for machine prime Heparin Sodium (Porcine) (Heparin Central Flush) 0 unit IV.FLUSH PRN PRN PRN Reason: Flush each lumen Hyoscyamine (Levsin) 0.125 mg PO Q4H PRN PRN Reason: SECRETIONS Acetaminophen (Ofirmev Inj) 1,000 mg in 100 mls @ 400 mls/hr IV.SIG Q8H PRN PRN Reason: FEVER Last Infusion: 06/11/18 08:00 Dose: Infused Albumin Human (Flexbumin 25% Inj) 100 mls @ 60 mls/hr IV.SIG WITH DIALYSIS PRN PRN Reason: hypotension / volume replace Last Infusion: 06/07/18 09:23 Dose: Infused Sodium Chloride (Ns Inj) 1,000 mls @ 0 mls/hr OTHER .Q0M PRN PRN Reason: for prime and rinse back Sodium Chloride (Ns Inj) 1,000 mls @ 200 mls/hr OTHER .Q5H PRN PRN Reason: for dialyzer flush PRN Sodium Chloride (Ns Inj) 1,000 mls @ 0 mls/hr IV.CONT .Q0M PRN PRN Reason: hypotension / volume replace Insulin Aspart (Novolog Insulin Correctional Sugar Inj) 0 unit SQ Q4HR [facility]; Protocol Last Admin: 06/17/18 12:33 Dose: 5 unit Lactulose (Lactulose Liq) 30 ml PO DAILY PRN PRN Reason: SEVERE CONSITIPATION Lansoprazole (Prevacid Solutab) 30 mg NG/OG DAILY [facility] Last Admin: 06/17/18 09:27 Dose: 30 mg Levothyroxine Sodium (Synthroid) 100 mcg PO DAILY@0600 [facility] Last Admin: 06/17/18 05:19 Dose: 100 mcg Levothyroxine Sodium (Synthroid) 75 mcg PO DAILY@0600 [facility] Last Admin: 06/17/18 05:19 Dose: 75 mcg Mannitol (Mannitol Inj) 12.5 gm IV.PUSH UNSCH PRN PRN Reason: hypotension / volume replace Metoprolol Tartrate (Lopressor Inj) 5 mg IV.PUSH Q6H PRN PRN Reason: Pulse > 130 Multi-Ingredient Mouthwash/Gargle (Magic Mouthwash Adult Liq) 10 ml SWISH-SWAL QID [facility] Last Admin: 06/17/18 12:33 Dose: 10 ml Nitroglycerin (Nitrostat Sl) 0.4 mg SL Q5M PRN PRN Reason: CHEST PAIN Ondansetron HCl (Zofran Inj) 4 mg IV.PUSH Q6H PRN PRN Reason: NAUSEA OR VOMITING Ondansetron HCl (Zofran Inj) 4 mg IV.PUSH UNSCH PRN PRN Reason: NAUSEA OR VOMITING Pt Own Med: Florastor 250mg Po Tid 1 each PO TID [facility] Polyethylene Glycol (Miralax) 17 gm NG/OG BID [facility] Last Admin: 06/17/18 09:26 Dose: 17 gm Prednisone (Deltasone) 30 mg PO DAILY [facility] Stop: 06/18/18 09:01 Last Admin: 06/17/18 09:25 Dose: 30 mg Pregabalin (Lyrica) 75 mg PO BID [facility] Last Admin: 06/17/18 09:26 Dose: 75 mg Sennosides (Senokot) 17.2 mg PO Q12H PRN PRN Reason: Moderate Constipation Sodium Chloride (Ns Flush) 5 ml IV.FLUSH PRN PRN PRN Reason: flush each lumen during HD Sodium Chloride (Ns Flush) 0 ml IV.FLUSH DAILY [facility] Last Admin: 06/17/18 09:27 Dose: 2 ml Sodium Chloride (Ns Flush) 0 ml IV.FLUSH PRN PRN PRN Reason: FLUSH AFTER USING IV ACCESS Terbutaline Sulfate (Brethine Inj) 1 mg SQ UNSCH PRN PRN Reason: For Extravasation Allergies Allergy/AdvReac Type Severity Reaction Status Date / Time ciprofloxacin Allergy Severe Itching Verified 05/30/18 23:15 diatrizoate meglumine Allergy Severe Itching Verified 05/30/18 23:15 gadobenic acid Allergy Severe Itching Verified 05/30/18 23:15 gadodiamide Allergy Severe Itching Verified 05/30/18 23:15 gadoteridol Allergy Severe Itching Verified 05/30/18 23:15 iodixanol Allergy Severe Itching Verified 05/30/18 23:15 iohexol Allergy Severe Itching Verified 05/30/18 23:15 levofloxacin Allergy Severe Itching Verified 05/30/18 23:15 celecoxib [From Celebrex] Allergy Unknown Itching Verified 05/30/18 23:15 ezetimibe [From Zetia] Allergy Unknown Itching Verified 05/30/18 23:15 prochlorperazine Allergy Unknown Itching Verified 05/10/18 20:51 [From Compazine] red dye Allergy Unknown Itching Verified 05/10/18 20:51 Home Medications Medication Instructions Recorded Confirmed Type apixaban 2.5 mg PO BID 05/10/18 05/31/18 History aspirin 81 mg PO DAILY 05/10/18 05/31/18 History atorvastatin 40 mg PO DAILY 05/10/18 05/31/18 History bumetanide 2 mg PO DAILY 05/10/18 05/31/18 History ferrous sulfate 325 mg PO DAILY 05/10/18 05/31/18 History furosemide 40 mg PO BID 05/10/18 05/31/18 History insulin aspart U-100 [Novolog 10 unit SUB-Q TIDAC 05/10/18 05/31/18 History U-100 Insulin aspart] insulin glargine 25 unit SUB-Q Q12H PRN 05/10/18 05/31/18 History ipratropium-albuterol 3 ml INHALATION Q4H PRN 05/10/18 05/31/18 History levothyroxine 200 mcg PO DAILY 05/10/18 05/31/18 History lisinopril 40 mg PO DAILY 05/10/18 05/31/18 History meclizine 25 mg PO DAILY PRN 05/10/18 05/31/18 History metoprolol tartrate 100 mg PO BID 05/10/18 05/31/18 History omeprazole 20 mg PO DAILY 05/10/18 05/31/18 History pregabalin [Lyrica] 75 mg PO BID 05/10/18 05/31/18 History ranolazine 500 mg PO Q12H PRN 05/10/18 05/31/18 History tamsulosin 0.4 mg PO DAILY 05/10/18 05/31/18 History Saccharomyces boulardii 250 mg PO TID 05/31/18 05/31/18 History alprazolam 0.25 mg PO TID 05/31/18 05/31/18 History clonidine HCl 0.1 mg PO Q8HR PRN 05/31/18 05/31/18 History clotrimazole 1 applic TOPICAL BID 05/31/18 05/31/18 History diltiazem HCl 120 mg PO DAILY 05/31/18 05/31/18 History doxycycline hyclate 100 mg PO BID 05/31/18 05/31/18 History ibuprofen 800 mg PO Q6H PRN 05/31/18 05/31/18 History pantoprazole 40 mg PO BID 05/31/18 05/31/18 History sucralfate 1 g PO TIDAC 05/31/18 05/31/18 History tiotropium bromide [Spiriva with 1 cap INHALATION DAILY 05/31/18 05/31/18 History HandiHaler] Exam Vital signs: Vital Signs 06/16/18 20:00 06/17/18 00:00 06/17/18 08:00 Temperature 98.4 F 97.2 F L 97.5 F L Pulse Rate 64 60 56 L Respiratory Rate 16 16 20 Blood Pressure 109/55 L 127/58 L 115/50 L Pulse Oximetry 92 L 98 100 06/17/18 12:00 06/17/18 16:00 Temperature 97.2 F L 97.6 F Pulse Rate 55 L 56 L Respiratory Rate 20 18 Blood Pressure 132/87 130/57 L Pulse Oximetry 98 100 Intake & Output 06/16/18 06/17/18 06/17/18 18:59 06:59 18:59 Intake Total 800 / 800 Balance 800 / 800 Weight 104.1 kg Intake: Oral 800 / 800 Other: # Voids 1 0 Date of Last Bowel Movement 06/15/18 06/15/18 # Bowel Movements 1 - Constitutional mild distress - Routine HEENT Exam Head: Present: normocephalic, atraumatic Comments: Internal joint jugular dialysis catheter line in place with appropriate dressing in place. Right upper extremity shows lymphedema throughout with the right upper extremity being twice as big as the left upper extremity. Edematous change seen in bilateral lower extremities symmetric. Limited range of motion of the shoulder and elbow is mild there is moderate severe limitation of motion of the right wrist there is mild limitation of motion of the left wrist right wrist has dorsiflexion 30 palmar flexion 30 supination pronation are maybe only 20 significant limitation. There is absolutely no erythema or increased warmth. There is some serous drainage the posterior aspect of the right arm where he has a pulling of the edema. He does have good capillary refill and pulses are intact sensations intact motors intact Results - Labs Result Diagrams: 06/17/18 05:17 06/17/18 05:17 Labs: Laboratory Results - last 24 hr 06/16/18 06/16/18 06/17/18 21:24 23:52 04:12 WBC RBC Hgb Hct MCV MCH MCHC RDW Plt Count MPV Sodium Potassium Chloride Carbon Dioxide Anion Gap BUN Creatinine Estimated GFR POC Glucose 418 H 328 H 276 H Random Glucose Calcium 06/17/18 06/17/18 06/17/18 05:17 05:17 08:10 WBC 10.6 RBC 2.57 L Hgb 8.0 L Hct 24.6 L MCV 95.7 MCH 31.2 MCHC 32.6 RDW 14.2 Plt Count 317 MPV 8.4 Sodium 137 Potassium 4.0 Chloride 97 L Carbon Dioxide 27.4 Anion Gap 13 BUN 64 H Creatinine 8.03 H Estimated GFR 7 L POC Glucose 152 H Random Glucose 237 H Calcium 7.8 L 06/17/18 06/17/18 11:44 15:51 WBC RBC Hgb Hct MCV MCH MCHC RDW Plt Count MPV Sodium Potassium Chloride Carbon Dioxide Anion Gap BUN Creatinine Estimated GFR POC Glucose 155 H 220 H Random Glucose Calcium - Diagnostic results Imaging: Impressions Venous Doppler Study 06/16/18 00:00 CONCLUSION: No venous thrombosis is identified in the right upper extremity. The right internal jugular vein was not optimally evaluated secondary to central line. The x-rays from several weeks ago and the right wrist are reviewed which appear benign. Assessment and Plan - Problem List (1) Lymphedema of right upper extremity Code(s): I89.0 - Lymphedema, not elsewhere classified Status: Acute - Assessment and Plan His condition was discussed and the options of treatment were discussed. Clinically it appears that he has some type of arthritic condition his right wrist, but radiographically the x-ray appears normal. It is possible that he has some type of gout or pseudogout which has a higher rate of occurring in patients on dialysis. An MRI scan has been ordered. We will see if this sheds any light on the situation. Previous ultrasounds did not show any blockage within the blood vessel. It is possible the ultrasound would not show all the way proximal into the subclavian region and in theory he could have some type of DVT in that location. Possibly discuss with the radiologist about the possibility of MRA or venogram. This appears to be a very difficult problem. There is no obvious answer. I will continue to follow. A mid level provider in my office, nurse practitioner or PA, may see this patient on a follow up basis and continue to implement the plan including: starting or adjusting medications, injections of muscle, tendons, bursa or joints, cast application, orthotic or brace application, physical therapy, further radiographic studies including X-ray, MRI, CT, ultrasound or bone scan , vascular studies, neurological studies, or other specialist consultations, and proceeding with surgical management as appropriate.
[2018-06-18] MEDS: Insulin NovoLOG Aspart Correctional Sugar Inj SQ SCH ×7 (01:16→23:33)
[2018-06-18] MEDS: Levothyroxine 100 MCG Tablet PO SCH (05:37)
[2018-06-18] MEDS: Levothyroxine 75 MCG Tablet PO SCH (05:37)
--- NOTE | 2018-06-18 09:19 | P.PNOP ---
Subjective Interval history: Patient complains of ongoing swelling right upper extremity and wrist pain The patient states he has history of gout in bilateral lower extremities This raises the possibility of gout in the right upper extremity Physical Exam Vital signs: Vital Signs 06/17/18 12:00 06/17/18 16:00 06/17/18 20:00 Temperature 97.2 F L 97.6 F 98.9 F Pulse Rate 55 L 56 L 63 Respiratory Rate 20 18 17 Blood Pressure 132/87 130/57 L 131/58 L Pulse Oximetry 98 100 99 06/18/18 00:00 Temperature 97.5 F L Pulse Rate 59 L Respiratory Rate 16 Blood Pressure 134/89 Pulse Oximetry 98 Intake & Output 06/17/18 06/18/18 06/18/18 18:59 06:59 18:59 Intake Total 1200 / 1200 Output Total 200 / 200 Balance 1200 / 1200 -200 / -200 Weight 103.6 kg Intake: Oral 1200 / 1200 Output: Urine 200 / 200 Other: Date of Last Bowel Movement 06/15/18 # Bowel Movements 2 Narrative: right upper angulo examination is significant for edematous change about the whole extremity with pooling edema in the posterior aspect the shoulder and some weeping coming to the skin. His swelling is slightly down today compared to yesterday. He has ongoing marked tenderness at the level of his wrist - Urinary Catheter Management Coude Cath placed during this visit: yes, but has since been removed by the nurse Reason for continuing: Other continuation reason Insertion date: 05/31/18 Insertion time: 23:00 Removal date: 06/08/18 Removal time: 14:30 Indwelling Urethral Catheter Cath placed during this visit: yes, but has since been removed by the nurse Reason for continuing: Other continuation reason Removal date: 06/08/18 Removal time: 14:30 Results - Labs CBC & Chem 7: 06/17/18 05:17 06/17/18 05:17 Laboratory Results - last 24 hr 06/17/18 06/17/18 06/17/18 11:44 15:51 19:42 POC Glucose 155 H 220 H 411 H 06/18/18 06/18/18 06/18/18 01:14 04:18 07:47 POC Glucose 287 H 290 H 194 H - Imaging x-rays from 2 weeks ago reviewed and shows no significant arthritis of the wrist The MRI was canceled yesterday because the patient had pain in his wrist and shoulder with there were trying to position him. Assessment and Plan - Problem List (1) Lymphedema of right upper extremity Code(s): I89.0 - Lymphedema, not elsewhere classified Status: Acute - Assessment and Plan His condition was discussed and the options of treatment were discussed. Clinically it appears that he has some type of arthritic condition his right wrist, but radiographically the x-ray appears normal. It is possible that he has some type of gout or pseudogout which has a higher rate of occurring in patients on dialysis. An MRI scan has been ordered. We will see if this sheds any light on the situation. Previous ultrasounds did not show any blockage within the blood vessel. It is possible the ultrasound would not show all the way proximal into the subclavian region and in theory he could have some type of DVT in that location. Possibly discuss with the radiologist about the possibility of MRA or venogram. This appears to be a very difficult problem. There is no obvious answer. I will continue to follow. There is a significant possibility that his symptoms are secondary to gout. Therefore recommend heating pad right upper extremity to see if this improves his condition. I believe the MRI scan will be completed today. A mid level provider in my office, nurse practitioner or PA, may see this patient on a follow up basis and continue to implement the plan including: starting or adjusting medications, injections of muscle, tendons, bursa or joints, cast application, orthotic or brace application, physical therapy, further radiographic studies including X-ray, MRI, CT, ultrasound or bone scan , vascular studies, neurological studies, or other specialist consultations, and proceeding with surgical management as appropriate.
--- NOTE | 2018-06-18 10:19 | P.PNNP ---
Subjective Interval history: Remains anuric. Seen in route to HD. <Devi Iqbal - Last Filed: 06/18/18 10:14> Physical Exam Vital signs: Vital Signs 06/17/18 12:00 06/17/18 16:00 06/17/18 20:00 Temperature 97.2 F L 97.6 F 98.9 F Pulse Rate 55 L 56 L 63 Respiratory Rate 20 18 17 Blood Pressure 132/87 130/57 L 131/58 L Pulse Oximetry 98 100 99 06/18/18 00:00 Temperature 97.5 F L Pulse Rate 59 L Respiratory Rate 16 Blood Pressure 134/89 Pulse Oximetry 98 Intake & Output 06/17/18 06/18/18 06/18/18 18:59 06:59 18:59 Intake Total 1200 / 1200 Output Total 200 / 200 Balance 1200 / 1200 -200 / -200 Weight 103.6 kg Intake: Oral 1200 / 1200 Output: Urine 200 / 200 Other: Date of Last Bowel Movement 06/15/18 # Bowel Movements 2 - Constitutional no acute distress, obese, disheveled, somnolent - Routine HEENT Exam Head: Present: normocephalic - Routine Neck Exam Present: supple, full ROM. Absent: JVD - Routine Respiratory Exam Present: CTA bilaterally. Absent: accessory muscle use - Routine Cardiovascular Exam Present: RRR, S1, S2 - Routine Abdominal Exam Present: soft, normoactive bowel sounds - Routine Extremities Exam Present: edema, pulses intact, normal capillary refill, tenderness, vascular access - Routine Skin Exam Present: intact, dry, warm - Routine Neurological Exam Present: CN II-XII intact, moving all extremities - Detailed Neurological Exam: Coma Scale Eye Opening: Spontaneous Verbal Response: Confused Motor Response: Obey commands Carrillo Coma Scale Total: 14 - Routine Psychiatric Exam Present: unable to assess - Urinary Catheter Management Coude Cath placed during this visit: yes, but has since been removed by the nurse Reason for continuing: Other continuation reason Insertion date: 05/31/18 Insertion time: 23:00 Removal date: 06/08/18 Removal time: 14:30 Indwelling Urethral Catheter Cath placed during this visit: yes, but has since been removed by the nurse Reason for continuing: Other continuation reason Removal date: 06/08/18 Removal time: 14:30 <Devi Iqbal - Last Filed: 06/18/18 10:14> Vital signs: Vital Signs 06/17/18 12:00 06/17/18 16:00 06/17/18 20:00 Temperature 97.2 F L 97.6 F 98.9 F Pulse Rate 55 L 56 L 63 Respiratory Rate 20 18 17 Blood Pressure 132/87 130/57 L 131/58 L Pulse Oximetry 98 100 99 06/18/18 00:00 Temperature 97.5 F L Pulse Rate 59 L Respiratory Rate 16 Blood Pressure 134/89 Pulse Oximetry 98 Intake & Output 06/17/18 06/18/18 06/18/18 18:59 06:59 18:59 Intake Total 1200 / 1200 Output Total 200 / 200 Balance 1200 / 1200 -200 / -200 Weight 103.6 kg Intake: Oral 1200 / 1200 Output: Urine 200 / 200 Other: Date of Last Bowel Movement 06/15/18 # Bowel Movements 2 - Urinary Catheter Management Coude Cath placed during this visit: no Indwelling Urethral Catheter Cath placed during this visit: no <Norman Tabares - Last Filed: 06/18/18 11:46> Assessment and Plan - Assessment (1) ESRD (end stage renal disease) on dialysis Code(s): N18.6 - End stage renal disease; Z99.2 - Dependence on renal dialysis Status: Acute Plan: He had underlying diabetic nephropathy., stage 4. [address] Phillip in [facility]. Oliguric renal failure, ATN. HD initiated 06/06. Most likely has reached ESRD. He is on HD MWF, due today. Apixaban is held, WBC improved, consulted IR for PermCath placement today. NPO now. Avoid IVF administration. Obtain daily labs Avoid nephrotoxic agents. Palliative has met with the son. He would like to see if HD improves his mentation before making decision to go with hospice. (2) Diabetes mellitus Code(s): E11.9 - Type 2 diabetes mellitus without complications Status: Acute Plan: Maintain blood glucose 140-180 mg/dL while admitted. <Devi Iqbal - Last Filed: 06/18/18 10:14> - Assessment (1) ESRD (end stage renal disease) on dialysis Code(s): N18.6 - End stage renal disease; Z99.2 - Dependence on renal dialysis Status: Acute (2) Diabetes mellitus Code(s): E11.9 - Type 2 diabetes mellitus without complications Status: Acute - Attending Attestation patient was seen and examined during dialysis. Agree with above assessment and plan. To have PermCath today. Needs outpatient dialysis arrangement, as I believe he has reached ESRD. Discussed with correctional case manager. <Norman Tabares - Last Filed: 06/18/18 11:46>
[2018-06-18 10:49] LABS: Albumin 2.3 g/dL (3.4-5.0); Calcium 7.7 mg/dL (8.5-10.1); Carbon Dioxide 25.3 meq/L (21.0-32.0); Phosphorus 6.2 mg/dL (2.5-4.9); Potassium 4.3 meq/L (3.5-5.1)
[2018-06-18] MEDS ORDERED: fentaNYL Citrate Inj 250 MCG/5 ML Ampul ONE (13:41)
[2018-06-18] MEDS ORDERED: Sodium Chlor 0.9% Inj 250 ML ONE (13:42)
[2018-06-18] MEDS ORDERED: Lidocaine 1%/Epinephrine 1:100,000 Inj 20 ML Vial ONE (14:58)
[2018-06-18] MEDS ORDERED: *Heparin 10,000 UNITS/10 ML Vial Periprocedural ONLY ONE (14:58)
--- NOTE | 2018-06-18 15:29 | P.RAD ---
Post Procedure Progress Note - Procedure Information Procedure Date: 06/18/18 Supervising Radiologist: Arcadio Chaves MD Estimated blood loss (mL): 5 Anesthesia: Conscious Sedation - Plan of Activity Patient to Unit: [facility] Patient Condition: Good See PACS Report for procedural detail/treatment.
--- NOTE | 2018-06-18 16:17 | P.PN ---
Subjective Interval history: business development specialist notes: 05/31: This is a 72-year-old male. He is a resident of [facility] and [facility]. Date of admission 05/30/2018. Originally admitted to hospitalist service and now under our service 05/31/2018. Past medical history includes fibromyalgia, dementia, history of CVA, obstructive sleep apnea, atrial fibrillation/chronic, COPD, chronic kidney disease stage IV, BPH, diabetes mellitus, elevated BMI, atherosclerotic vascular disease, nephrolithiasis, liver cirrhosis, essential hypertension, hyperlipidemia, gout, history of right ice C occlusion, hypothyroidism, dysphagia, constipation, diplopia, CABG 2, TURP, cardiac stent, right percutaneous lithotripsy, liver biopsy and bilateral hand surgery. Patient is also on chronic benzodiazepines. Patient presented to [facility] on 05/30/2018 with history of being found on the floor between his bed in the window. His head was against the dresser. He was able to tell if he hit his head. There is a large amount about was in the floor but not bleeding from the head. He has excoriations on his back and his left knee and right wrist. CT brain at this facility was negative. Patient is on apixaban and aspirin at home. Patient was noted to have a urinary tract infection was started on cefepime and gentamicin by ED physician. Throughout the night, patient became more confused and is found to be obtunded earlier this morning was intubated and centralized placed due to hypotension. He is currently on norepinephrine drip at 12 mcg/min. Troponin was 0.05. Patient had a leukocytosis, normocytic anemia, creatinine 6.6/ baseline around 2.5 and TSH is 0.356. We are asked to admit the patient at this time. He is currently intubated and arousable in room C 25 in ED. No family available. 06/01: Remains sedated, orally intubated on mechanical ventilation. Had generalized tonic-clonic movements which were questionable last night for which he was given Ativan 4 mg IV and loaded with Cerebyx. EEG this morning pending. Neurology consult noted. Head CT negative for bleed. Negligible urine output. Worsening BUN/creatinine. On vasopressin low-dose currently, off all other pressors. 06/02: Remains sedated, arousable, orally intubated on mechanical ventilation. Not following commands unenlightening sedation. 06/03: Arouses off sedation, not following commands. Orally intubated on mechanical ventilation. On CPAP trials. 06/04: More awake today tracking. Intermittently follows commands on upper and lower extremities. Remains on Sujit-Synephrine and vasopressin. Also change amiodarone to p.o. BUN climbing 104 today, creatinine stable at 5.7. May need to start hemodialysis will discuss with nephrology 06/05: Patient was extubated yesterday, breathing well respiratory graf tolerating. Remains confused but follows commands continues to have some garbled speech. Creatinine is 5.65 BUN 108 today. Still making urine nephrology wants to hold off HD another day and monitor. UO 1.1 L in 24 hours 06/06: Patient is more critical today. He is more lethargic with worsening uremia BUN 124 creatinine 6.5. If family agreeable with hemodialysis I will place a Vas-Cath today. Give 1 dose of digoxin, start Coreg 6.25 mg twice daily , and restart p.o. amiodarone to wean off amiodarone infusion. 06/07: Started on hemodialysis yesterday, 1.3 L removed. Currently receiving hemodialysis heart rate better controlled in mid 80s. P.o. amiodarone and Coreg started yesterday. Right wrist remains swollen tender. XR negative. 06/08: Breathing comfortably. CXR clear. Remains edematous in both arms. Will remove central line.. Tolerating beta-alton now. 06/09: Tolerating hemodialysis this morning. Heart rate control acceptable. 06/10: Remains generally edematous. Dialysis successfully removing volume. He has failed swallow eval several days now. Complains of sore throat today. 06/11: Remains generally edematous. Swallowing difficulties presently being evaluated. Right wrist and hand pain under evaluation. Patient continues to express his desire to , appears to have lost hope. Hospitalist Notes: 06/13: Stable seen in his bedroom, he will be transferred later today for a PermCath placement at this time no complaint, obese patient. 06/14: Seen in his bedroom stable no complaint, confused. discussed with nurse and on MDR, his son is awaiting for Nephrology specialist if the patient improves his renal function to elect for Hospice versus transfer to SNF. 06/15: Patient discussed on MDR, continue with pain on the right arm evaluated no signs of infection, had wrist x ray found OA. 06/16: Seen in his bedroom and discussed with nurse Miss Albarran, no changes to anterior assessment His mentation remains stable 06/17: Discussed with nurse and patient, improving his mental condition, I think he is at baseline, pleasantly demented, continue with pain on the right wrist and hand asked for Orthopedic surgery consult and asked for MRI of the right hand, wrist and forearm. 06/18: Stable in his bedroom, status post Perm Cath placement, discussed on MDR, and with nurse, no changes to anterior assessment improving his mentation to baseline, no nausea, vomit or diarrhea. awaiting for MRI of the right hand. Physical Exam Vital signs: Vital Signs 06/17/18 20:00 06/18/18 00:00 06/18/18 08:00 Temperature 98.9 F 97.5 F L 97.3 F L Pulse Rate 63 59 L 55 L Respiratory Rate 17 16 18 Blood Pressure 131/58 L 134/89 135/60 Pulse Oximetry 99 98 97 06/18/18 15:40 06/18/18 15:55 Temperature 97.5 F L Pulse Rate 63 63 Respiratory Rate 20 20 Blood Pressure 120/51 L 140/51 L Pulse Oximetry 94 L 94 L Intake & Output 06/17/18 06/18/18 06/18/18 18:59 06:59 18:59 Intake Total 1200 / 1200 Output Total 200 / 200 3800 / 3800 Balance 1200 / 1200 -200 / -200 -3800 / -3800 Weight 103.6 kg Intake: Oral 1200 / 1200 Output: Urine 200 / 200 Hemodialysis Amount 3800 / 3800 Other: Date of Last Bowel Movement 06/15/18 06/17/18 # Bowel Movements 2 Narrative: GENERAL: NO acute distress. SKIN: Warm and dry. Some generalized swelling around the right and left arms and wrists HEAD: Atraumatic. Normocephalic. EYES: Pupils equal and round bilaterally. No scleral icterus. No injection or drainage. ENT: No nasal bleeding or discharge. NECK: no JVD, no lymphadenopathy, CARDIOVASCULAR: S1-S2 , no gallop or murmur. Chronic A. fib, rate controlled RESPIRATORY: Air entry diminished bilaterally, comfortable pattern. No crackles. GASTROINTESTINAL: Abdomen soft, non-tender, obese, active bowel sounds. No guarding. MUSCULOSKELETAL: Extremities with pitting bilateral lower extremity edema. Right wrist tender slightly swollen, mild erythema. NEUROLOGICAL: no acute distress. - Urinary Catheter Management Coude Cath placed during this visit: yes, but has since been removed by the nurse Reason for continuing: Other continuation reason Insertion date: 05/31/18 Insertion time: 23:00 Removal date: 06/08/18 Removal time: 14:30 Indwelling Urethral Catheter Cath placed during this visit: yes, but has since been removed by the nurse Reason for continuing: Other continuation reason Removal date: 06/08/18 Removal time: 14:30 Results - Labs CBC & Chem 7: 06/17/18 05:17 06/19/18 10:03 Laboratory Results - last 24 hr 06/17/18 06/18/18 06/18/18 19:42 01:14 04:18 Sodium Potassium Chloride Carbon Dioxide Anion Gap BUN Creatinine Estimated GFR POC Glucose 411 H 287 H 290 H Random Glucose Calcium Phosphorus Albumin 06/18/18 06/18/18 06/18/18 07:47 09:50 13:21 Sodium 140 Potassium 4.3 Chloride 99 Carbon Dioxide 25.3 Anion Gap 16 H BUN 76 H Creatinine 9.45 H Estimated GFR 5 L POC Glucose 194 H 125 H Random Glucose 168 H Calcium 7.7 L Phosphorus 6.2 H Albumin 2.3 L 06/18/18 15:48 Sodium Potassium Chloride Carbon Dioxide Anion Gap BUN Creatinine Estimated GFR POC Glucose 152 H Random Glucose Calcium Phosphorus Albumin - Procedures Catheter Placement 06/14/18 08:00 CONCLUSION: 1. Uncomplicated line placement as above. Assessment and Plan - Plan 1. Acute Encephalopathy likely toxic metabolic secondary to severe sepsis/Uremia , I think at this time at baseline. he is pleasantly demented. CVA Dementia Chronic Benzodiazepine use Remains off all sedation. Goal of RASS -0 CT brain on admission revealed no acute intracranial findings Pregabalin 75 mg BID for peripheral Neuropathy, Previously for possible seizure, loaded with Cerebyx. EEG moderate encephalopathy no seizures. Neuro following. Repeat head CT negative for bleed 2. Septic Shock requiring Vasopressors-resolved Atrial Fibrillation rate controlled Chronic systolic heart failure EF 40-45% 07/09 Hypertension history of CABG x 2, Coronary artery stenting. 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 on Amiodarone 200 mg BID, Coreg 6.25 mg BID< 2D echo 07/09 revealed EF of 40-45%. LV dilatation. PAP 31 mmHg. Basilar inferolateral and inferior lateral hypokinesis. Repeat echocardiogram: Moderate concentric left ventricular hypertrophy. LVEF 60-65%. Estimated PASP is 63.3 mmHg. [id number] pulmonary hypertension present (range 60-70 mmHg). Heart catheterization 09/08 revealed patent LAURA to LAD and SVG to RCA. Dr. Jenkins is his insurance billing clerk Holding Ranolazine 500 mg twice daily for angina. Aspirin 81 mg daily/home medication. Continue atorvastatin 40 mg daily for dyslipidemia Apixaban 2.5 mg twice daily on hold for HD catheter placement Holding diltiazem 120 mg daily, lisinopril 40 mg daily and metoprolol tartrate 100 mg twice daily/home medications Continue Bumex per nephrology Hemodialysis and antihypertensive meds per nephrology service. 3. VDRF improved, WERNER/COPD, bronchodilator, Mucolytic and incentive spirometry. 4. GERD on gastric protection 5. Acute Kidney Injury in the setting of CKD IV/ESRD, Nephrology following. on HD M/W/F 6. DM II/Hypothyroidism/history of Gout sliding scale, levothyroxine, started on Levemir 10 units BID and continued sliding scale, pre meal insulin 5 units. 7. Proteus UTI/Ceftriaxone for UTI proteus, ID following, Infectious disease following. Received cefepime and gentamicin in the ED. CT abdomen/pelvis with nonobstructing right renal stone, Treated. Prophylaxis -GI -lansoprazole/sucralfate -DVT -SCD/apixaban will provide DVT prophylaxis. Holding apixaban for HD catheter insertion Code Status: DNR Discussed Condition With: patient and nurse. Discharge Planning: Discussed with manager data warehousing he will need to get Outpatient Hemodialysis awaiting final by Nitroglycerin Nitrator Operator Batch.
[2018-06-18] MEDS: Polyethylene Glycol 3350 17 GM Packet NG/OG SCH ×2 (16:48→20:38)
[2018-06-18] MEDS: Carvedilol 6.25 MG Tablet PO SCH ×2 (16:48→20:36)
[2018-06-18] MEDS: Ferrrous Sulfate 300 MG/5 ML UDC PO SCH (16:48)
[2018-06-18] MEDS: Pregabalin 75 MG Capsule PO SCH ×2 (16:48→20:36)
[2018-06-18] MEDS: predniSONE 10 MG Tablet PO SCH (16:48)
[2018-06-18] MEDS: Ascorbic Acid 500 MG Tablet PO SCH (16:48)
[2018-06-18] MEDS: Amiodarone 200 MG Tablet PO SCH ×2 (16:49→20:36)
[2018-06-18] MEDS: Doxazosin 1 MG Tablet PO SCH (16:49)
[2018-06-18] MEDS: Hypromellose 0.3% Opth Gel 10 GM Bottle EACH EYE SCH ×2 (16:51→20:36)
[2018-06-18] MEDS: Clotrimazole 1% Cream 15 GM Tube TOPICAL SCH ×2 (16:52→20:37)
[2018-06-18] MEDS: Nystatin/Diphenhydramine/Lidocaine Mouthwash (Adult) 120 ML Botttle SWISH-SWAL SCH ×3 (16:53→20:38)
--- NOTE | 2018-06-18 16:55 | IR ---
EXAM DATE: 06/18/2018 4:05 PM EDT AGE/SEX: 72 years / Male INDICATIONS: Patient presents with Chronic Kidney disease in need of Right Tunneled Dialysis Cathete r. CLINICAL DATA: This is the patient's subsequent encounter. Patient reports that signs and symptoms h ave been present for 3 weeks and indicates a pain score of 10/10. MEDICAL/SURGICAL HISTORY: Chronic obstructive pulmonary disease. Hypertension. Dementia. Elana betes Mellitus, Sleep apnea, PTSD, Heart failure, A-FIB, Atherosclerotic cardiovascular disease, NSTE [place], Adjustment disorder, Anginal equivalent, Anticoagulant care home, Chronic kidney disease, Dysphas ia, Fibromyalgia, Hyperlipidemia, Nephrolithiasis, Occlusion if right carotid artery, Hypothyroid. Co ronary angioplasty, Hand surgery, Nephrostomy, Liver biopsy, TURP, Coronary artery stent. COMPARISON: No prior exams available for comparison. FLUORO TIME (min): 0.2 IMAGE SERIES: 1 SEDATION TIME (min): 30 MEDICATION(S): 1.5mg midazolam (Versed) IV 75mcg fentanyl (Sublimaze) IV Prophylactic antibiotics were administered with appropriate pre-procedure timing. Vancomycin within 2 hrs of procedure, Ancef (or alternative) within 1 hr of procedure. DEVICE(S): X23cm Palindrome . . PROCEDURE: 1. Dialysis catheter placement. 2. Conscious sedation with continuous EKG and oximetry monitoring. The risks, benefits and alternatives to the procedure were explained and verbal and written consent w as obtained. The site was prepped in sterile fashion. Full sterile technique was used, including ca p, mask, sterile gloves and gown and a large sterile sheet. Hand hygiene and 2% chlorhexidine and/or betadine/alcohol prep was utilized per protocol for cutaneous antisepsis. The skin and subcutaneous tissues were infiltrated with local anesthetic solution. With fluoroscopic guidance a dermatotomy was created using the existing venous access. A subcutaneou s tunnel was created in a retrograde fashion the catheter was pulled through the tunnel. The cathete r was flushed and assembled and locked with heparin. The catheter was sutured in place. Conscious sedation was performed with the prescribed dosages and duration as above in the presence of an independent trained radiology nurse to assist in the monitoring of the patient. EKG and oximetry remained stable throughout the procedure. The patient tolerated the procedure well and there were n o complications. The patient was sent to post anesthesia recovery in stable condition. CONCLUSION: 1. Uncomplicated Dialysis catheter placement as above. Electronically signed by: Arcadio Chaves MD 06/18/2018 4:54 PM EDT
--- NOTE | 2018-06-18 17:00 | P.DIET ---
Nutritional Evaluation Type of nutrition evaluation: follow-up Nutrition consult regarding: Tube Feeding Nutrition screening: [place] Screening comments: TFing has been d/c'ed. Diet is advanced. Subjective Subjective Comments: 'Pt gone from the floor when visit attempted. Objective - Diagnosis AMS, UTI, Acute Respiratory Failure - Objective Moore body weight: 76 kg % IBW: 163 (IBW = 166#) Body Weight Used for Calculations: IBW (75.5kg) Energy Needs - Lower Range (kCal/kg): 28 Energy Needs - Upper Range (kCal/kg): 32 Lower Limit kCal/kg (kCals): 2,114 Upper Limit kCal/kg (kCals): 2,416 Lower Limit Protein Factor (Grams per Kg): 1.2 Upper Limit Protein Factor (Grams per Kg): 1.5 Lower Protein Needs (Protein): 91 Upper Protein Needs (Protein): 113 Dietitian Reviewed in Medical Record: Current diet, Curent medications, Intake & Output, Labs, Medical history Diet Order: NPO Oral Diet Intake Amount: Fair 50-75% Speech Therapy Recommendations: Yes (mech soft, thin liquids) Objective Comments: PMH: fibromyalgia, dementia, h/o CVA, Obstructive Sleepi Apnea, AFib, COPD, CKD- stagge IV, BPH, DM, Atherosclerotic Vascular Disease, Cardiac Stents, CABG x 2, hyperlipidemia, HTN, TURP, Liver Cirrhosis, gout, hypothyroidism, Dysphagia 06/18 skin assessment: midline posterior perineal-masceration; sacrum- maceration Labs Include: Phosphorus 6.2, BUN 56, Creatinine 9.45, estGFR 5, POC Glucose 194 , 152 LBM 06/15 Assessment Assessment: Pt previously receiving TF'ing; extubated 06/04. TFing d/c'ed 06/11. Hemodialysis initiated 06/06, pt is s/p permacath placement today 06/18. Pt is currenty NPO. A review of PO intake in EMR shows pt w/50% to 75% for meals prior to being NPO. Rec diet as a Heart Healthy Mech Soft. Labs reviewed. Wt changes noted. Dietitian will follow-up and assess need for an oral nutritional supplement as appropriate. Recommendations: 1. Rec diet as a Heart Healthy 0ADA Mech Soft 2. Dietitian will follow-up and assess need for an oral nutritional supplement as appropriate Dietitian to Monitor: Lab values, Renal labs, Glucose level, Intake & Output, Weight change, PO Intake, Wound/skin status, Medical course
[2018-06-18] MEDS: Acetaminophen-HYDROcodone 325/7.5 Liq 15 ML UDC NG/OG PRN (19:40)
[2018-06-18] MEDS ORDERED: Morphine Inj 4 MG/ML Vial IV.PUSH ONE (22:18)
[2018-06-19] MEDS: Levothyroxine 100 MCG Tablet PO SCH (05:15)
[2018-06-19] MEDS: Insulin NovoLOG Aspart Correctional Sugar Inj SQ SCH ×5 (05:15→20:49)
[2018-06-19] MEDS: Levothyroxine 75 MCG Tablet PO SCH (05:15)
[2018-06-19 05:40] LABS: Albumin 2.5 g/dL (3.4-5.0); Calcium 7.8 mg/dL (8.5-10.1); Carbon Dioxide 25.2 meq/L (21.0-32.0); Phosphorus 4.9 mg/dL (2.5-4.9)
[2018-06-19 05:46] LABS: Potassium 5.6 meq/L (3.5-5.1)
--- NOTE | 2018-06-19 09:18 | P.PNOP ---
Subjective Interval history: On going pain right wrist Physical Exam Vital signs: Vital Signs 06/18/18 15:40 06/18/18 15:55 06/18/18 20:37 Temperature 97.5 F L 97.6 F Pulse Rate 63 63 58 L Respiratory Rate 20 20 18 Blood Pressure 120/51 L 140/51 L 93/51 L Pulse Oximetry 94 L 94 L 98 06/19/18 00:31 06/19/18 07:47 Temperature 97.3 F L 97.7 F Pulse Rate 56 L 61 Respiratory Rate 20 20 Blood Pressure 105/54 L 130/56 L Pulse Oximetry 95 99 Intake & Output 06/18/18 06/19/18 06/19/18 18:59 06:59 18:59 Intake Total 1030 / 1030 Output Total 3800 / 3800 Balance -3800 / -3800 1030 / 1030 Weight 103.6 kg Intake: IV 250 / 250 Oral 780 / 780 Output: Hemodialysis Amount 3800 / 3800 Other: # Voids 1 Date of Last Bowel Movement 06/17/18 06/18/18 # Bowel Movements 1 - Routine Extremities Exam Comments: Left upper extremity shows continued mild discomfort with range of motion. Right upper extremity shows decreased in overall swelling. He does not show any erythema or increased warmth. Continued limited range of motion of the right wrist. Motor sensory neurologic examination intact. Vascular intact with good capillary refill - Urinary Catheter Management Coude Cath placed during this visit: yes, but has since been removed by the nurse Reason for continuing: Other continuation reason Insertion date: 05/31/18 Insertion time: 23:00 Removal date: 06/08/18 Removal time: 14:30 Indwelling Urethral Catheter Cath placed during this visit: yes, but has since been removed by the nurse Reason for continuing: Other continuation reason Removal date: 06/08/18 Removal time: 14:30 Results - Labs CBC & Chem 7: 06/17/18 05:17 06/19/18 04:32 Laboratory Results - last 24 hr 06/18/18 06/18/18 06/18/18 09:50 13:21 15:48 Sodium 140 Potassium 4.3 Chloride 99 Carbon Dioxide 25.3 Anion Gap 16 H BUN 76 H Creatinine 9.45 H Estimated GFR 5 L POC Glucose 125 H 152 H Random Glucose 168 H Calcium 7.7 L Phosphorus 6.2 H Albumin 2.3 L 06/18/18 06/19/18 06/19/18 19:33 04:32 04:46 Sodium 137 Potassium 5.6 H D Chloride 98 Carbon Dioxide 25.2 Anion Gap 14 BUN 47 H Creatinine 7.05 H Estimated GFR 8 L POC Glucose 371 H 247 H Random Glucose 199 H Calcium 7.8 L Phosphorus 4.9 D Albumin 2.5 L 06/19/18 07:28 Sodium Potassium Chloride Carbon Dioxide Anion Gap BUN Creatinine Estimated GFR POC Glucose 202 H Random Glucose Calcium Phosphorus Albumin - Imaging Impressions Catheter Placement 06/18/18 00:00 CONCLUSION: 1. Uncomplicated Dialysis catheter placement as above. - Procedures Catheter Placement 06/14/18 08:00 CONCLUSION: 1. Uncomplicated line placement as above. Assessment and Plan - Problem List (1) Lymphedema of right upper extremity Code(s): I89.0 - Lymphedema, not elsewhere classified Status: Acute - Assessment and Plan His condition was discussed and the options of treatment were discussed. Clinically it appears that he has some type of arthritic condition his right wrist, but radiographically the x-ray appears normal. It is possible that he has some type of gout or pseudogout which has a higher rate of occurring in patients on dialysis. An MRI scan has been ordered. We will see if this sheds any light on the situation. Previous ultrasounds did not show any blockage within the blood vessel. It is possible the ultrasound would not show all the way proximal into the subclavian region and in theory he could have some type of DVT in that location. Possibly discuss with the radiologist about the possibility of MRA or venogram. The MRI scan was not completed. I believe this more likely than not represents gout of the right wrist. I personally placed. He had around his right wrist. I believe that still best way to improve his condition. He is instructed to leave the heating pad in place and gently work on wrist range of motion. I'm hopeful this will improve his condition over the course of time. There is consideration of a corticosteroid injection into the wrist, but this is less predictable. Recommend holding off on that at this time. He does appear to be slightly improved compared to when I first saw him 2 days ago. I will sign off at this time. Please contact me if questions arise. A mid level provider in my office, nurse practitioner or PA, may see this patient on a follow up basis and continue to implement the plan including: starting or adjusting medications, injections of muscle, tendons, bursa or joints, cast application, orthotic or brace application, physical therapy, further radiographic studies including X-ray, MRI, CT, ultrasound or bone scan , vascular studies, neurological studies, or other specialist consultations, and proceeding with surgical management as appropriate.
[2018-06-19] MEDS: Carvedilol 6.25 MG Tablet PO SCH (10:02)
[2018-06-19] MEDS: Polyethylene Glycol 3350 17 GM Packet NG/OG SCH ×2 (10:02→20:20)
[2018-06-19] MEDS: Nystatin/Diphenhydramine/Lidocaine Mouthwash (Adult) 120 ML Botttle SWISH-SWAL SCH ×4 (10:02→20:20)
--- NOTE | 2018-06-19 10:02 | P.PNNP ---
Subjective Interval history: Awake. Assisted the patient into the chair. Unstable on feet. Still reporting severe right wrist pain. Renal function unchanged. Dialyzed yesterday. Labs showing hyperkalemia (5.6) however hemolysis is noted. Repeat BMP ordered. S/P PermCath placement yesterday. <Devi Iqbal - Last Filed: 06/19/18 09:57> Physical Exam Vital signs: Vital Signs 06/18/18 15:40 06/18/18 15:55 06/18/18 20:37 Temperature 97.5 F L 97.6 F Pulse Rate 63 63 58 L Respiratory Rate 20 20 18 Blood Pressure 120/51 L 140/51 L 93/51 L Pulse Oximetry 94 L 94 L 98 06/19/18 00:31 06/19/18 07:47 Temperature 97.3 F L 97.7 F Pulse Rate 56 L 61 Respiratory Rate 20 20 Blood Pressure 105/54 L 130/56 L Pulse Oximetry 95 99 Intake & Output 06/18/18 06/19/18 06/19/18 18:59 06:59 18:59 Intake Total 1030 / 1030 Output Total 3800 / 3800 Balance -3800 / -3800 1030 / 1030 Weight 103.6 kg Intake: IV 250 / 250 Oral 780 / 780 Output: Hemodialysis Amount 3800 / 3800 Other: # Voids 1 Date of Last Bowel Movement 06/17/18 06/18/18 # Bowel Movements 1 - Constitutional no acute distress, morbidly obese, chronically ill appearing, disheveled, cooperative - Routine Neck Exam Present: supple, full ROM. Absent: JVD - Routine Respiratory Exam Present: CTA bilaterally. Absent: accessory muscle use - Routine Cardiovascular Exam Present: S1, S2 - Routine Abdominal Exam Present: soft, normoactive bowel sounds - Routine Extremities Exam Present: edema, tenderness, vascular access. Absent: full ROM Comments: right arm/wrist extremely tender, decreased range of motion RLE edema > Left - Routine Skin Exam Present: intact, dry, warm - Routine Neurological Exam Present: alert, oriented X3, CN II-XII intact, moving all extremities - Detailed Neurological Exam: Coma Scale Eye Opening: Spontaneous Verbal Response: Confused Motor Response: Obey commands Carrillo Coma Scale Total: 14 - Routine Psychiatric Exam Present: normal affect, normal thought process - Urinary Catheter Management Coude Cath placed during this visit: yes, but has since been removed by the nurse Reason for continuing: Other continuation reason Insertion date: 05/31/18 Insertion time: 23:00 Removal date: 06/08/18 Removal time: 14:30 Indwelling Urethral Catheter Cath placed during this visit: yes, but has since been removed by the nurse Reason for continuing: Other continuation reason Removal date: 06/08/18 Removal time: 14:30 <Devi Iqbal - Last Filed: 06/19/18 09:57> Vital signs: Vital Signs 06/18/18 15:40 06/18/18 15:55 06/18/18 20:37 Temperature 97.5 F L 97.6 F Pulse Rate 63 63 58 L Respiratory Rate 20 20 18 Blood Pressure 120/51 L 140/51 L 93/51 L Pulse Oximetry 94 L 94 L 98 06/19/18 00:31 06/19/18 07:47 06/19/18 12:00 Temperature 97.3 F L 97.7 F 97.8 F Pulse Rate 56 L 61 57 L Respiratory Rate 20 18 Blood Pressure 105/54 L 130/56 L 98/48 L Pulse Oximetry 95 99 100 Intake & Output 06/18/18 06/19/18 06/19/18 18:59 06:59 18:59 Intake Total 1030 / 1030 Output Total 3800 / 3800 Balance -3800 / -3800 1030 / 1030 Weight 103.6 kg Intake: IV 250 / 250 Oral 780 / 780 Output: Hemodialysis Amount 3800 / 3800 Other: # Voids 1 Date of Last Bowel Movement 06/17/18 06/18/18 # Bowel Movements 1 - Urinary Catheter Management Coude Cath placed during this visit: no Indwelling Urethral Catheter Cath placed during this visit: no <Norman Tabares - Last Filed: 06/19/18 12:39> Assessment and Plan - Assessment (1) ESRD (end stage renal disease) on dialysis Code(s): N18.6 - End stage renal disease; Z99.2 - Dependence on renal dialysis Status: Acute Plan: He had underlying diabetic nephropathy, stage 4. Followed with Dr. Phillip in [place]. Oliguric renal failure, ATN. HD initiated 06/06. Most likely has reached ESRD. He is on HD MWF, had 3.8 L UF yesterday. s/p PermCath placement 06/18. Repeat renal panel today, if truly hyperkalemic will dialyze again today. Avoid IVF administration. Obtain daily labs Avoid nephrotoxic agents. On Epogen with HD for anemia of CKD. Not requiring phosphorus binder at this time. Continue to monitor. Palliative has met with the son. He would like to see if HD improves his mentation before making decision to go with hospice. Potential discharge back to [facility] to follow with Dr. Phillip. will need to contact his clinic to inquire about chair availability. (2) Diabetes mellitus Code(s): E11.9 - Type 2 diabetes mellitus without complications Status: Acute Plan: Maintain blood glucose 140-180 mg/dL while admitted. <Devi Iqbal - Last Filed: 06/19/18 09:57> - Assessment (1) ESRD (end stage renal disease) on dialysis Code(s): N18.6 - End stage renal disease; Z99.2 - Dependence on renal dialysis Status: Acute (2) Diabetes mellitus Code(s): E11.9 - Type 2 diabetes mellitus without complications Status: Acute - Attending Attestation patient was seen and examined. Sitting on a chair. Much more alert than before. Outpatient dialysis arrangements are being made: [facility]. Repeat potassium is acceptable. Needs AV access at some point. <Norman Tabares - Last Filed: 06/19/18 12:39>
[2018-06-19] MEDS: Pregabalin 75 MG Capsule PO SCH ×2 (10:03→20:19)
[2018-06-19] MEDS: Ascorbic Acid 500 MG Tablet PO SCH (10:03)
[2018-06-19] MEDS: Ferrrous Sulfate 300 MG/5 ML UDC PO SCH (10:03)
[2018-06-19] MEDS: Amiodarone 200 MG Tablet PO SCH ×2 (10:03→20:19)
[2018-06-19] MEDS: Doxazosin 1 MG Tablet PO SCH (10:03)
[2018-06-19] MEDS: Clotrimazole 1% Cream 15 GM Tube TOPICAL SCH ×2 (10:06→20:20)
[2018-06-19] MEDS: Hypromellose 0.3% Opth Gel 10 GM Bottle EACH EYE SCH ×2 (10:06→20:20)
[2018-06-19 11:30] LABS: Albumin 2.7 g/dL (3.4-5.0); Carbon Dioxide 24.9 meq/L (21.0-32.0); Phosphorus 4.6 mg/dL (2.5-4.9); Potassium 4.5 meq/L (3.5-5.1)
[2018-06-19] MEDS ORDERED: Morphine Sulfate Inj 2 MG/ML Vial IV.PUSH ONE (13:56)
--- NOTE | 2018-06-19 18:08 | P.PN ---
Subjective Interval history: corporate specialist notes: 05/31: This is a 72-year-old male. He is a resident of [facility]. Date of admission 05/30/2018. Originally admitted to hospitalist service and now under our service 05/31/2018. Past medical history includes fibromyalgia, dementia, history of CVA, obstructive sleep apnea, atrial fibrillation/chronic, COPD, chronic kidney disease stage IV, BPH, diabetes mellitus, elevated BMI, atherosclerotic vascular disease, nephrolithiasis, liver cirrhosis, essential hypertension, hyperlipidemia, gout, history of right ice C occlusion, hypothyroidism, dysphagia, constipation, diplopia, CABG 2, TURP, cardiac stent, right percutaneous lithotripsy, liver biopsy and bilateral hand surgery. Patient is also on chronic benzodiazepines. Patient presented to [facility] on 05/30/2018 with history of being found on the floor between his bed in the window. His head was against the dresser. He was able to tell if he hit his head. There is a large amount about was in the floor but not bleeding from the head. He has excoriations on his back and his left knee and right wrist. CT brain at this facility was negative. Patient is on apixaban and aspirin at home. Patient was noted to have a urinary tract infection was started on cefepime and gentamicin by ED physician. Throughout the night, patient became more confused and is found to be obtunded earlier this morning was intubated and centralized placed due to hypotension. He is currently on norepinephrine drip at 12 mcg/min. Troponin was 0.05. Patient had a leukocytosis, normocytic anemia, creatinine 6.6/ baseline around 2.5 and TSH is 0.356. We are asked to admit the patient at this time. He is currently intubated and arousable in room C 25 in ED. No family available. 06/01: Remains sedated, orally intubated on mechanical ventilation. Had generalized tonic-clonic movements which were questionable last night for which he was given Ativan 4 mg IV and loaded with Cerebyx. EEG this morning pending. Neurology consult noted. Head CT negative for bleed. Negligible urine output. Worsening BUN/creatinine. On vasopressin low-dose currently, off all other pressors. 06/02: Remains sedated, arousable, orally intubated on mechanical ventilation. Not following commands unenlightening sedation. 06/03: Arouses off sedation, not following commands. Orally intubated on mechanical ventilation. On CPAP trials. 06/04: More awake today tracking. Intermittently follows commands on upper and lower extremities. Remains on Sujit-Synephrine and vasopressin. Also change amiodarone to p.o. BUN climbing 104 today, creatinine stable at 5.7. May need to start hemodialysis will discuss with nephrology 06/05: Patient was extubated yesterday, breathing well respiratory graf tolerating. Remains confused but follows commands continues to have some garbled speech. Creatinine is 5.65 BUN 108 today. Still making urine nephrology wants to hold off HD another day and monitor. UO 1.1 L in 24 hours 06/06: Patient is more critical today. He is more lethargic with worsening uremia BUN 124 creatinine 6.5. If family agreeable with hemodialysis I will place a Vas-Cath today. Give 1 dose of digoxin, start Coreg 6.25 mg twice daily , and restart p.o. amiodarone to wean off amiodarone infusion. 06/07: Started on hemodialysis yesterday, 1.3 L removed. Currently receiving hemodialysis heart rate better controlled in mid 80s. P.o. amiodarone and Coreg started yesterday. Right wrist remains swollen tender. XR negative. 06/08: Breathing comfortably. CXR clear. Remains edematous in both arms. Will remove central line.. Tolerating beta-alton now. 06/09: Tolerating hemodialysis this morning. Heart rate control acceptable. 06/10: Remains generally edematous. Dialysis successfully removing volume. He has failed swallow eval several days now. Complains of sore throat today. 06/11: Remains generally edematous. Swallowing difficulties presently being evaluated. Right wrist and hand pain under evaluation. Patient continues to express his desire to , appears to have lost hope. Hospitalist Notes: 06/13: Stable seen in his bedroom, he will be transferred later today for a PermCath placement at this time no complaint, obese patient. 06/14: Seen in his bedroom stable no complaint, confused. discussed with nurse and on MDR, his son is awaiting for Nephrology specialist if the patient improves his renal function to elect for Hospice versus transfer to SNF. 06/15: Patient discussed on MDR, continue with pain on the right arm evaluated no signs of infection, had wrist x ray found OA. 06/16: Seen in his bedroom and discussed with nurse Miss Albarran, no changes to anterior assessment His mentation remains stable 06/17: Discussed with nurse and patient, improving his mental condition, I think he is at baseline, pleasantly demented, continue with pain on the right wrist and hand asked for Orthopedic surgery consult and asked for MRI of the right hand, wrist and forearm. 06/18: Stable in his bedroom, status post Perm Cath placement, discussed on MDR, and with nurse, no changes to anterior assessment improving his mentation to baseline. awaiting for MRI of the right hand. 06/19: Discussed with patient and his relative in the room, improving his right hand pain, had MRI of the wrist, no further recommendations by Orthopedic surgery, his MRI was incomplete, will continue Local measurements , and try to discharge tomorrow to SNF and continue Outpatient dialysis. no nausea, vomit or diarrhea. Physical Exam Vital signs: Vital Signs 06/18/18 20:37 06/19/18 00:31 06/19/18 07:47 Temperature 97.6 F 97.3 F L 97.7 F Pulse Rate 58 L 56 L 61 Respiratory Rate 18 20 20 Blood Pressure 93/51 L 105/54 L 130/56 L Pulse Oximetry 98 95 99 06/19/18 12:00 06/19/18 16:00 Temperature 97.8 F 97.7 F Pulse Rate 57 L 63 Respiratory Rate 18 18 Blood Pressure 98/48 L 114/52 L Pulse Oximetry 100 99 Intake & Output 06/18/18 06/19/18 06/19/18 18:59 06:59 18:59 Intake Total 1030 / 1030 740 / 740 Output Total 3800 / 3800 Balance -3800 / -3800 1030 / 1030 715 / 715 Weight 103.6 kg Intake: IV 250 / 250 Oral 780 / 780 740 / 740 Output: Urine Hemodialysis Amount 3800 / 3800 Other: # Voids 1 Date of Last Bowel Movement 06/17/18 06/18/18 # Bowel Movements 1 1 Narrative: GENERAL: NO acute distress. SKIN: Warm and dry. Some generalized swelling around the right and left arms and wrists HEAD: Atraumatic. Normocephalic. EYES: Pupils equal and round bilaterally. No scleral icterus. No injection or drainage. ENT: No nasal bleeding or discharge. NECK: no JVD, no lymphadenopathy, CARDIOVASCULAR: S1-S2 , no gallop or murmur. Chronic A. fib, rate controlled RESPIRATORY: Air entry diminished bilaterally, comfortable pattern. No crackles. GASTROINTESTINAL: Abdomen soft, non-tender, obese, active bowel sounds. No guarding. MUSCULOSKELETAL: Extremities with pitting bilateral lower extremity edema. Right wrist tender slightly swollen, mild erythema. NEUROLOGICAL: no acute distress. - Urinary Catheter Management Coude Cath placed during this visit: yes, but has since been removed by the nurse Reason for continuing: Other continuation reason Insertion date: 05/31/18 Insertion time: 23:00 Removal date: 06/08/18 Removal time: 14:30 Indwelling Urethral Catheter Cath placed during this visit: yes, but has since been removed by the nurse Reason for continuing: Other continuation reason Removal date: 06/08/18 Removal time: 14:30 Results - Labs CBC & Chem 7: 06/17/18 05:17 06/19/18 10:03 Laboratory Results - last 24 hr 06/18/18 06/19/18 06/19/18 19:33 04:32 04:46 Sodium 137 Potassium 5.6 H D Chloride 98 Carbon Dioxide 25.2 Anion Gap 14 BUN 47 H Creatinine 7.05 H Estimated GFR 8 L POC Glucose 371 H 247 H Random Glucose 199 H Calcium 7.8 L Phosphorus 4.9 D Albumin 2.5 L 06/19/18 06/19/18 06/19/18 07:28 10:03 12:32 Sodium 138 Potassium 4.5 D Chloride 100 Carbon Dioxide 24.9 Anion Gap 13 BUN 52 H Creatinine 7.66 H Estimated GFR 7 L POC Glucose 202 H 329 H Random Glucose 181 H Calcium 8.0 L Phosphorus 4.6 Albumin 2.7 L 06/19/18 16:51 Sodium Potassium Chloride Carbon Dioxide Anion Gap BUN Creatinine Estimated GFR POC Glucose 234 H Random Glucose Calcium Phosphorus Albumin - Procedures Catheter Placement 06/14/18 08:00 CONCLUSION: 1. Uncomplicated line placement as above. Assessment and Plan - Plan 1. Acute Encephalopathy likely toxic metabolic secondary to severe sepsis/Uremia , I think at this time at baseline. he is pleasantly demented. CVA Dementia Chronic Benzodiazepine use Remains off all sedation. Goal of RASS -0 CT brain on admission revealed no acute intracranial findings Pregabalin 75 mg BID for peripheral Neuropathy, Previously for possible seizure, loaded with Cerebyx. EEG moderate encephalopathy no seizures. Neuro following. Repeat head CT negative for bleed 2. Septic Shock requiring Vasopressors-resolved Atrial Fibrillation rate controlled Chronic systolic heart failure EF 40-45% 07/09 Hypertension history of CABG x 2, Coronary artery stenting. 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 on Amiodarone 200 mg BID, Coreg 6.25 mg BID< 2D echo 07/09 revealed EF of 40-45%. LV dilatation. PAP 31 mmHg. Basilar inferolateral and inferior lateral hypokinesis. Repeat echocardiogram: Moderate concentric left ventricular hypertrophy. LVEF 60-65%. Estimated PASP is 63.3 mmHg. [id number] pulmonary hypertension present (range 60-70 mmHg). Heart catheterization 09/08 revealed patent LAURA to LAD and SVG to RCA. Dr. Jenkins is his licensed massage therapist Holding Ranolazine 500 mg twice daily for angina. Aspirin 81 mg daily/home medication. Continue atorvastatin 40 mg daily for dyslipidemia Apixaban 2.5 mg twice daily on hold for HD catheter placement Holding diltiazem 120 mg daily, lisinopril 40 mg daily and metoprolol tartrate 100 mg twice daily/home medications Continue Bumex per nephrology already scheduled to start Hemodialysis as outpatient will discharge in am tomorrow. 3. VDRF improved, WERNER/COPD, bronchodilator, Mucolytic and incentive spirometry. 4. GERD on gastric protection 5. Acute Kidney Injury in the setting of CKD IV/ESRD, Nephrology following. on HD M/W/F 6. DM II/Hypothyroidism/history of Gout sliding scale, levothyroxine, started on Levemir 10 units BID and continued sliding scale, pre meal insulin 5 units. 7. Proteus UTI/Ceftriaxone for UTI proteus, ID following, Infectious disease following. Received cefepime and gentamicin in the ED. CT abdomen/pelvis with nonobstructing right renal stone, Treated. 8. Hypertension now with some Hypotension decreased Coreg to 3.125 mg bid with parameters. and follow. Prophylaxis -GI -lansoprazole/sucralfate -DVT -SCD/apixaban will provide DVT prophylaxis. Holding apixaban for HD catheter insertion Code Status: DNR Discussed Condition With: patient, Nurse, MDR and friend in the room. Discharge Planning: Expected by tomorrow.
[2018-06-19] MEDS: Acetaminophen-HYDROcodone 325/7.5 Liq 15 ML UDC NG/OG PRN (20:26)
[2018-06-19] MEDS: Insulin Detemir Inj 1,000 UNIT/10 ML Vial SQ SCH (20:49)
[2018-06-20] MEDS: Insulin NovoLOG Aspart Correctional Sugar Inj SQ SCH ×7 (00:33→16:57)
[2018-06-20] MEDS: Levothyroxine 75 MCG Tablet PO SCH (05:06)
[2018-06-20] MEDS: Levothyroxine 100 MCG Tablet PO SCH (05:06)
[2018-06-20 07:09] LABS: Albumin 2.5 g/dL (3.4-5.0); Calcium 7.8 mg/dL (8.5-10.1); Carbon Dioxide 25.9 meq/L (21.0-32.0); Phosphorus 5.2 mg/dL (2.5-4.9); Potassium 4.4 meq/L (3.5-5.1)
[2018-06-20] MEDS: Nystatin/Diphenhydramine/Lidocaine Mouthwash (Adult) 120 ML Botttle SWISH-SWAL SCH ×2 (08:58→12:24)
[2018-06-20] MEDS: Insulin Detemir Inj 1,000 UNIT/10 ML Vial SQ SCH (08:59)
[2018-06-20] MEDS: Polyethylene Glycol 3350 17 GM Packet NG/OG SCH (09:00)
[2018-06-20] MEDS: Ferrrous Sulfate 300 MG/5 ML UDC PO SCH (09:01)
[2018-06-20] MEDS: Pregabalin 75 MG Capsule PO SCH (09:02)
[2018-06-20] MEDS: Doxazosin 1 MG Tablet PO SCH (09:05)
[2018-06-20] MEDS: Clotrimazole 1% Cream 15 GM Tube TOPICAL SCH (09:18)
[2018-06-20] MEDS: Ascorbic Acid 500 MG Tablet PO SCH (09:19)
[2018-06-20] MEDS: Hypromellose 0.3% Opth Gel 10 GM Bottle EACH EYE SCH (09:19)
[2018-06-20] MEDS: Amiodarone 200 MG Tablet PO SCH (09:19)
--- NOTE | 2018-06-20 09:43 | P.PNNP ---
Subjective Interval history: Seen during dialysis. [facility]. No new issues. Remains anuric. <Devi Iqbal - Last Filed: 06/20/18 09:35> Physical Exam Vital signs: Vital Signs 06/19/18 12:00 06/19/18 16:00 06/19/18 20:00 Temperature 97.8 F 97.7 F 97.3 F L Pulse Rate 57 L 63 64 Respiratory Rate 18 18 20 Blood Pressure 98/48 L 114/52 L 155/59 H Pulse Oximetry 100 99 100 06/20/18 00:00 06/20/18 04:00 Temperature 97.1 F L Pulse Rate 52 L 62 Respiratory Rate 20 Blood Pressure 93/69 L 130/65 Pulse Oximetry 100 97 Intake & Output 06/19/18 06/20/18 06/20/18 18:59 06:59 18:59 Intake Total 740 / 740 240 / 240 Output Total 25 / 25 Balance 715 / 715 240 / 240 Weight 100.1 kg Intake: Oral 740 / 740 240 / 240 Output: Urine 25 / 25 Other: Date of Last Bowel Movement 06/18/18 06/19/18 # Bowel Movements 1 3 - Constitutional no acute distress, morbidly obese, disheveled, cooperative - Routine HEENT Exam Head: Present: normocephalic - Routine Neck Exam Present: supple, full ROM - Routine Respiratory Exam Present: CTA bilaterally. Absent: accessory muscle use - Routine Cardiovascular Exam Present: S1, S2. Absent: bradycardia, tachycardia, irregular rhythm - Routine Abdominal Exam Present: soft, normoactive bowel sounds - Routine Extremities Exam Present: edema, tenderness, vascular access - Routine Skin Exam Present: intact, dry, warm - Routine Neurological Exam Present: alert, oriented X3, CN II-XII intact, moving all extremities - Detailed Neurological Exam: Coma Scale Eye Opening: Spontaneous Verbal Response: Oriented Motor Response: Obey commands [place] Coma Scale Total: 15 - Routine Psychiatric Exam Present: normal affect, normal thought process - Urinary Catheter Management Coude Cath placed during this visit: yes, but has since been removed by the nurse Reason for continuing: Other continuation reason Insertion date: 05/31/18 Insertion time: 23:00 Removal date: 06/08/18 Removal time: 14:30 Indwelling Urethral Catheter Cath placed during this visit: yes, but has since been removed by the nurse Reason for continuing: Other continuation reason Removal date: 06/08/18 Removal time: 14:30 <Devi Iqbal - Last Filed: 06/20/18 09:35> Vital signs: Vital Signs 06/19/18 12:00 06/19/18 16:00 06/19/18 20:00 Temperature 97.8 F 97.7 F 97.3 F L Pulse Rate 57 L 63 64 Respiratory Rate 18 18 20 Blood Pressure 98/48 L 114/52 L 155/59 H Pulse Oximetry 100 99 100 06/20/18 00:00 06/20/18 04:00 06/20/18 08:00 Temperature 97.1 F L 97.8 F Pulse Rate 52 L 62 125 H Respiratory Rate 20 16 Blood Pressure 93/69 L 130/65 115/65 Pulse Oximetry 100 97 98 Intake & Output 06/19/18 06/20/18 06/20/18 18:59 06:59 18:59 Intake Total 740 / 740 240 / 240 Output Total 25 / 25 Balance 715 / 715 240 / 240 Weight 100.1 kg Intake: Oral 740 / 740 240 / 240 Output: Urine 25 / 25 Other: Date of Last Bowel Movement 06/18/18 06/19/18 # Bowel Movements 1 3 - Urinary Catheter Management Coude Cath placed during this visit: no Indwelling Urethral Catheter Cath placed during this visit: no <Norman Tabares - Last Filed: 06/20/18 09:57> Assessment and Plan - Assessment (1) ESRD (end stage renal disease) on dialysis Code(s): N18.6 - End stage renal disease; Z99.2 - Dependence on renal dialysis Status: Acute Plan: He had underlying CKD 4 due to diabetic nephropathy. Previously followed with Dr. Phillip in [place]. Acute on CKD. No recovery, he has reached ESRD. HD initiated 06/06. Seen during HD today on a 3K, 400 BFR, goal 3L s/p PermCath placement 06/18. Vascular consulted for AVF creation which will happen outpatient. Avoid IVF administration and nephrotoxic agents including NSAIDs. On Epogen with HD for anemia of CKD. Start Renvela for metabolic bone disorder, continue at discharge. Discussed foods to avoid. Outpatient HD will be TTS (tomorrow) at [facility], first treatment tomorrow. 2:30PM. (2) Diabetes mellitus Code(s): E11.9 - Type 2 diabetes mellitus without complications Status: Acute Plan: Maintain blood glucose 140-180 mg/dL while admitted. <Devi Iqbal - Last Filed: 06/20/18 09:35> - Assessment (1) ESRD (end stage renal disease) on dialysis Code(s): N18.6 - End stage renal disease; Z99.2 - Dependence on renal dialysis Status: Acute (2) Diabetes mellitus Code(s): E11.9 - Type 2 diabetes mellitus without complications Status: Acute - Attending Attestation patient was seen and examined during dialysis. On 3K, UF goal of 3 [place]ers[place] [address] units with dialysis. Patient continues to complain of pain in right wrist, forearm. <Norman Tabares - Last Filed: 06/20/18 09:57>
[2018-06-20] MEDS: Heparin 10,000 UNITS/10 ML Vial (for IV use) OTHER PRN (11:06)
--- NOTE | 2018-06-20 11:49 | P.PNVS ---
Subjective Subjective/Hospital Course: 72/M with ESRD recently started Hemodialysis Pt in need of an arteriovenous fistula creation No previous access attempts Pt seen while in dialysis Objective Vital Signs / I&O: Vital Signs 06/19/18 12:00 06/19/18 16:00 06/19/18 20:00 Temperature 97.8 F 97.7 F 97.3 F L Pulse Rate 57 L 63 64 Respiratory Rate 18 18 20 Blood Pressure 98/48 L 114/52 L 155/59 H Pulse Oximetry 100 99 100 06/20/18 00:00 06/20/18 04:00 06/20/18 08:00 Temperature 97.1 F L 97.8 F Pulse Rate 52 L 62 125 H Respiratory Rate 20 16 Blood Pressure 93/69 L 130/65 115/65 Pulse Oximetry 100 97 98 Intake & Output 06/19/18 06/20/18 06/20/18 18:59 06:59 18:59 Intake Total 740 / 740 240 / 240 Output Total 25 / 25 Balance 715 / 715 240 / 240 Weight 100.1 kg Intake: Oral 740 / 740 240 / 240 Output: Urine 25 / 25 Other: Date of Last Bowel Movement 06/18/18 06/19/18 06/19/18 # Bowel Movements 1 3 Physical Exam: Palpable R/L radial pulses No previous access attempts R chest tunneled catheter noted UE warm / motor intact Laboratory Results - last 24 hr 06/19/18 06/19/18 06/19/18 12:32 16:51 20:34 Sodium Potassium Chloride Carbon Dioxide Anion Gap BUN Creatinine Estimated GFR POC Glucose 329 H 234 H 223 H Random Glucose Calcium Phosphorus Albumin 06/20/18 06/20/18 06/20/18 00:17 03:38 05:15 Sodium 139 Potassium 4.4 Chloride 100 Carbon Dioxide 25.9 Anion Gap 13 BUN 60 H Creatinine 8.85 H Estimated GFR 6 L POC Glucose 85 205 H Random Glucose 107 H Calcium 7.8 L Phosphorus 5.2 H Albumin 2.5 L 06/20/18 11:37 Sodium Potassium Chloride Carbon Dioxide Anion Gap BUN Creatinine Estimated GFR POC Glucose 103 Random Glucose Calcium Phosphorus Albumin Impressions Catheter Placement 06/18/18 00:00 CONCLUSION: 1. Uncomplicated Dialysis catheter placement as above. Assessment and Plan - Assessment (1) ESRD (end stage renal disease) on dialysis Code(s): N18.6 - End stage renal disease; Z99.2 - Dependence on renal dialysis Status: Acute - Plan 72/M w/ ESRD recently started HD in need of a permanent access No prior hx of access attempts HD - T/T/S via R chest tunneled cath Pt D/C to rehab today Plan AVF planning (out pt) Arranged out pt f/u in 2W with an AVF Eval (Duplex) Sushma Flanagan NP [facility] [phone] Discharge Planning: Arranged out pt f/u in 2W
--- NOTE | 2018-06-20 14:31 | P.DS ---
Date of admission: 06/01/18 15:07 Primary care physician: Nnamdi Gomez MD Attending physician on discharge: Laureano Camejo Anticipated date of discharge: 06/20/18 Brief History from admission: This is a 72-year-old male. He is a resident of [facility]. Date of admission 05/30/2018. Originally admitted to hospitalist service and now under our service 05/31/2018. Past medical history includes fibromyalgia, dementia, history of CVA, obstructive sleep apnea, atrial fibrillation/chronic, COPD, chronic kidney disease stage IV, BPH, diabetes mellitus, elevated BMI, atherosclerotic vascular disease, nephrolithiasis, liver cirrhosis, essential hypertension, hyperlipidemia, gout, history of right ice C occlusion, hypothyroidism, dysphagia, constipation, diplopia, CABG 2, TURP, cardiac stent, right percutaneous lithotripsy, liver biopsy and bilateral hand surgery. Patient is also on chronic benzodiazepines. Patient presented to [facility] on 05/30/2018 with history of being found on the floor between his bed in the window. His head was against the dresser. He was able to tell if he hit his head. There is a large amount about was in the floor but not bleeding from the head. He has excoriations on his back and his left knee and right wrist. CT brain at this facility was negative. Patient is on apixaban and aspirin at home. Patient was noted to have a urinary tract infection was started on cefepime and gentamicin by ED physician. Throughout the night, patient became more confused and is found to be obtunded earlier this morning was intubated and centralized placed due to hypotension. He is currently on norepinephrine drip at 12 mcg/min. Troponin was 0.05. Patient had a leukocytosis, normocytic anemia, creatinine 6.6/ baseline around 2.5 and TSH is 0.356. We are asked to admit the patient at this time. He is currently intubated and arousable in room C 25 in ED. No family available. 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 He is a resident of [facility]. Date of admission 05/30/2018. Originally admitted to hospitalist service and now under our service 05/31/2018. Past medical history includes fibromyalgia, dementia, history of CVA, obstructive sleep apnea, atrial fibrillation/chronic, COPD, chronic kidney disease stage IV, BPH, diabetes mellitus, elevated BMI, atherosclerotic vascular disease, nephrolithiasis, liver cirrhosis, essential hypertension, hyperlipidemia, gout, history of right ice C occlusion, hypothyroidism, dysphagia, constipation, diplopia, CABG 2, TURP, cardiac stent, right percutaneous lithotripsy, liver biopsy and bilateral hand surgery. Patient is also on chronic benzodiazepines. Patient presented to [facility] on 05/30/2018 with history of being found on the floor between his bed in the window. His head was against the dresser. He was able to tell if he hit his head. There is a large amount about was in the floor but not bleeding from the head. He has excoriations on his back and his left knee and right wrist. CT brain at this facility was negative. Patient is on apixaban and aspirin at home. Patient was noted to have a urinary tract infection was started on cefepime and gentamicin by ED physician. Throughout the night, patient became more confused and is found to be obtunded earlier this morning was intubated and centralized placed due to hypotension. He is currently on norepinephrine drip at 12 mcg/min. Troponin was 0.05. Patient had a leukocytosis, normocytic anemia, creatinine 6.6/ baseline around 2.5 and TSH is 0.356. We are asked to admit the patient at this time. He is currently intubated and arousable in room C 25 in ED. No family available. 06/01: Remains sedated, orally intubated on mechanical ventilation. Had generalized tonic-clonic movements which were questionable last night for which he was given Ativan 4 mg IV and loaded with Cerebyx. EEG this morning pending. Neurology consult noted. Head CT negative for bleed. Negligible urine output. Worsening BUN/creatinine. On vasopressin low-dose currently, off all other pressors. 06/02: Remains sedated, arousable, orally intubated on mechanical ventilation. Not following commands unenlightening sedation. 06/03: Arouses off sedation, not following commands. Orally intubated on mechanical ventilation. On CPAP trials. 06/04: More awake today tracking. Intermittently follows commands on upper and lower extremities. Remains on Sujit-Synephrine and vasopressin. Also change amiodarone to p.o. BUN climbing 104 today, creatinine stable at 5.7. May need to start hemodialysis will discuss with nephrology 06/05: Patient was extubated yesterday, breathing well respiratory graf tolerating. Remains confused but follows commands continues to have some garbled speech. Creatinine is 5.65 BUN 108 today. Still making urine nephrology wants to hold off HD another day and monitor. UO 1.1 L in 24 hours 06/06: Patient is more critical today. He is more lethargic with worsening uremia BUN 124 creatinine 6.5. If family agreeable with hemodialysis I will place a Vas-Cath today. Give 1 dose of digoxin, start Coreg 6.25 mg twice daily , and restart p.o. amiodarone to wean off amiodarone infusion. 06/07: Started on hemodialysis yesterday, 1.3 L removed. Currently receiving hemodialysis heart rate better controlled in mid 80s. P.o. amiodarone and Coreg started yesterday. Right wrist remains swollen tender. XR negative. 06/08: Breathing comfortably. CXR clear. Remains edematous in both arms. Will remove central line.. Tolerating beta-alton now. 06/09: Tolerating hemodialysis this morning. Heart rate control acceptable. 06/10: Remains generally edematous. Dialysis successfully removing volume. He has failed swallow eval several days now. Complains of sore throat today. 06/11: Remains generally edematous. Swallowing difficulties presently being evaluated. Right wrist and hand pain under evaluation. Patient continues to express his desire to , appears to have lost hope. Hospitalist Notes: 06/13: Stable seen in his bedroom, he will be transferred later today for a PermCath placement at this time no complaint, obese patient. 06/14: Seen in his bedroom stable no complaint, confused. discussed with nurse and on MDR, his son is awaiting for Nephrology specialist if the patient improves his renal function to elect for Hospice versus transfer to SNF. 06/15: Patient discussed on MDR, continue with pain on the right arm evaluated no signs of infection, had wrist x ray found OA. 06/16: Seen in his bedroom and discussed with nurse Miss Albarran, no changes to anterior assessment His mentation remains stable 06/17: Discussed with nurse and patient, improving his mental condition, I think he is at baseline, pleasantly demented, continue with pain on the right wrist and hand asked for Orthopedic surgery consult and asked for MRI of the right hand, wrist and forearm. 06/18: Stable in his bedroom, status post Perm Cath placement, discussed on MDR, and with nurse, no changes to anterior assessment improving his mentation to baseline. awaiting for MRI of the right hand. 06/19: Discussed with patient and his relative in the room, improving his right hand pain, had MRI of the wrist, no further recommendations by Orthopedic surgery, his MRI was incomplete, will continue Local measurements , and try to discharge tomorrow to SNF and continue Outpatient dialysis. 06/20: Stable in his bedroom, no nausea, vomit or diarrhea, okay to transfer to Rehab facility at this time. will have AV fistula creation as outpatient, new appointment with Vascular explosive ordnance disposal specialist in two weeks. Assessment and Plan - Plan 1. Acute Encephalopathy likely toxic metabolic secondary to severe sepsis/Uremia , I think at this time at baseline. he is pleasantly demented. CVA Dementia Chronic Benzodiazepine use Remains off all sedation. Goal of RASS -0 CT brain on admission revealed no acute intracranial findings Pregabalin 75 mg BID for peripheral Neuropathy, Previously for possible seizure, loaded with Cerebyx. EEG moderate encephalopathy no seizures. Neuro following. Repeat head CT negative for bleed 2. Septic Shock requiring Vasopressors-resolved Atrial Fibrillation rate controlled Chronic systolic heart failure EF 40-45% 07/09 Hypertension history of CABG x 2, Coronary artery stenting. 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 on Amiodarone 200 mg BID, Coreg 6.25 mg BID< 2D echo 07/09 revealed EF of 40-45%. LV dilatation. PAP 31 mmHg. Basilar inferolateral and inferior lateral hypokinesis. Repeat echocardiogram: Moderate concentric left ventricular hypertrophy. LVEF 60-65%. Estimated PASP is 63.3 mmHg. [id number] pulmonary hypertension present (range 60-70 mmHg). Heart catheterization 09/08 revealed patent LAURA to LAD and SVG to RCA. 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 Aspirin 81 mg daily/home medication. Continue atorvastatin 40 mg daily for dyslipidemia Apixaban 2.5 mg twice daily on hold for HD catheter placement Holding diltiazem 120 mg daily, lisinopril 40 mg daily and metoprolol tartrate 100 mg twice daily/home medications Continue Bumex per nephrology already scheduled to start Hemodialysis as outpatient next HD for tomorrow. 3. VDRF improved, WERNER/COPD, bronchodilator, Mucolytic and incentive spirometry. 4. GERD on gastric protection 5. Acute Kidney Injury in the setting of CKD IV/ESRD, Nephrology following. on HD M//F 6. DM II/Hypothyroidism/history of Gout sliding scale, levothyroxine, started on Levemir 10 units BID and continued sliding scale, pre meal insulin 5 units. 7. Proteus UTI/Ceftriaxone for UTI proteus, ID following, Infectious disease following. Received cefepime and gentamicin in the ED. CT abdomen/pelvis with nonobstructing right renal stone, Treated. 8. Hypertension now with some Hypotension decreased Coreg to 3.125 mg bid with parameters. and follow. Prophylaxis -GI -lansoprazole/sucralfate -DVT -SCD/apixaban will provide DVT prophylaxis. Holding apixaban for HD catheter insertion Code Status: DNR Discussed Condition With: Patient and Stitch Cleaner. Discharge Planning: Okay to discharge to SNF now. - Time Spent with Patient Total time spent providing and/or coordinating discharge services: Greater than 30 minutes Exam Vital signs: Vital Signs 06/19/18 16:00 06/19/18 20:00 06/20/18 00:00 Temperature 97.7 F 97.3 F L 97.1 F L Pulse Rate 63 64 52 L Respiratory Rate 18 20 20 Blood Pressure 114/52 L 155/59 H 93/69 L Pulse Oximetry 99 100 100 06/20/18 04:00 06/20/18 08:00 Temperature 97.8 F Pulse Rate 62 125 H Respiratory Rate 16 Blood Pressure 130/65 115/65 Pulse Oximetry 97 98 Intake & Output 06/19/18 06/20/18 06/20/18 18:59 06:59 18:59 Intake Total 740 / 740 240 / 240 Output Total 1999 Balance 715 / 715 240 / 240 -1999 Weight 100.1 kg Intake: Oral 740 / 740 240 / 240 Output: Urine Hemodialysis Amount 1999 Other: Date of Last Bowel Movement 06/18/18 06/19/18 06/19/18 # Bowel Movements 1 3 Narrative: GENERAL: NO acute distress. SKIN: Warm and dry. Some generalized swelling around the right and left arms and wrists HEAD: Atraumatic. Normocephalic. EYES: Pupils equal and round bilaterally. No scleral icterus. No injection or drainage. ENT: No nasal bleeding or discharge. NECK: no JVD, no lymphadenopathy, CARDIOVASCULAR: S1-S2 , no gallop or murmur. Chronic A. fib, rate controlled RESPIRATORY: Air entry diminished bilaterally, comfortable pattern. No crackles. GASTROINTESTINAL: Abdomen soft, non-tender, obese, active bowel sounds. No guarding. MUSCULOSKELETAL: Extremities with pitting bilateral lower extremity edema, better right wrist NEUROLOGICAL: no acute distress. Results Procedures completed during hospitalization: Catheter Placement 06/14/18 08:00 CONCLUSION: 1. Uncomplicated line placement as above. Labs on day of discharge: Labs from last 24 hours 06/20/18 06/20/18 06/20/18 11:37 05:15 03:38 Sodium 139 Potassium 4.4 Chloride 100 Carbon Dioxide 25.9 Anion Gap 13 BUN 60 H Creatinine 8.85 H Estimated GFR 6 L POC Glucose 103 205 H Random Glucose 107 H Calcium 7.8 L Phosphorus 5.2 H Albumin 2.5 L 06/20/18 06/19/18 06/19/18 00:17 20:34 16:51 Sodium Potassium Chloride Carbon Dioxide Anion Gap BUN Creatinine Estimated GFR POC Glucose 85 223 H 234 H Random Glucose Calcium Phosphorus Albumin - Impressions ITS Impressions Abdomen/Pelvis CT 05/31/18 00:00 CONCLUSION: 1. No acute abnormality. 2. 7 mm nonobstructing right renal stone. 3. Small bilateral pleural effusions with bibasilar consolidations. This is more pronounced than typical passive atelectasis. Infectious etiology versus pulmonary edema. Head CT 05/31/18 00:00 CONCLUSION: Stable evaluation the brain without evidence of acute infarct, hemorrhage, mass or edema. . Head MRI 06/01/18 00:00 CONCLUSION: 1. No evidence of acute infarct, hemorrhage, mass or edema. 2. Mild cerebral white matter disease characteristic of microvascular ischemic changes. 3. No significant change compared to previous study in 2010 Elbow X-Ray 06/03/18 00:00 CONCLUSION: Unremarkable exam. Shoulder X-Ray 06/03/18 00:00 CONCLUSION: Unremarkable right shoulder. Abdomen X-Ray 06/06/18 09:53 CONCLUSION: Tip of NG tube in the region of the antrum of the stomach. Wrist X-Ray 06/06/18 11:03 CONCLUSION: 1. No acute fracture or dislocation. 2. Degenerative osteoarthritis, as above. Chest X-Ray 06/08/18 06:00 CONCLUSION: Slightly improved aeration of the lung bases. Otherwise stable exam. Tube Removal 06/13/18 00:00 CONCLUSION: Uncomplicated central venous catheter removal. Venous Doppler Study 06/16/18 00:00 CONCLUSION: No venous thrombosis is identified in the right upper extremity. The right internal jugular vein was not optimally evaluated secondary to central line. Catheter Placement 06/18/18 00:00 CONCLUSION: 1. Uncomplicated Dialysis catheter placement as above. Discharge Plan - Discharge Disposition Patient Disposition: Discharge to SNF - Discharge Condition Condition: Fair - Discharge Order Discharge Orders: Discharge Order (Routine); Ordered 06/20/18 Ordered By: Laureano Camejo Vascular Surgery Clear for Discharge (Routine); Ordered 06/20/18 Ordered By: Sushma Flanagan - Discharge Details Anticipated Discharge Date: 06/20/18 Discharge Comment: Follow with Nephrology to continue his Hemodialysis - Physicians Team Primary Care Provider: Nnamdi Gomez Attending Provider: Laureano Camejo Other Providers: Pavel Perry MD ; Nnamdi Ordoñez MD ; [facility] ; Norman Tabares MD ; Cj Preston MD ; Greg Torres MD ; Rober Kim MD
[2018-06-20 16:58] VITALS: BP 91/56; PULSE 72; RESP 18; TEMP 98.5; O2SAT 99
== END 2018-06-20 17:28 ==
LOC: NEPC 23:02 → NEDA 23:02 → N03 05-31 09:26 → N07 06-12 16:43
PROVIDERS: ADMIT Internal Medicine; ATTEND Internal Medicine

== ENCOUNTER 2018-07-09 11:19 | Inpatient (IN) ==
[2018-07-09] MEDS ORDERED: Acetaminophen 325 MG Tablet PO ONE (12:01)
[2018-07-09] MEDS ORDERED: Piperacil/Tazo 3.375 GM Premix 50 ML IV.SIG ONE (12:11)
[2018-07-09 12:29] LABS: Baso # (Auto) 0.1 th/mm3 (0.0-0.2); Baso % (Auto) 0.5 % (0.0-2.0); Eos # (Auto) 0.2 th/mm3 (0.0-0.4); Hematocrit 29.3 % (39.0-51.0); Lymph # (Auto) 1.6 th/mm3 (1.0-4.8); Lymph % (Auto) 9.3 % (9.0-44.0); Mean Corpuscular Volume 94.5 fL (80.0-100.0); Mean Platelet Volume 7.4 fL (7.0-11.0); Mono # (Auto) 1.7 th/mm3 (0.0-0.9); Mono % (Auto) 9.9 % (0.0-8.0); Neut % (Auto) 79.3 % (16.0-70.0); Platelet Count 459 th/mm3 (150-450); Red Cell Distribution Width 15.3 % (11.6-17.2); White Blood Count 17.7 th/mm3 (4.0-11.0)
[2018-07-09 12:33] LABS: Mean Corpuscular HGB Conc 30.7 % (32.0-36.0)
[2018-07-09 12:37] LABS: Activated Partial Thrombo Time 26.8 sec (24.3-30.1); INR 1.2 Ratio; Prothrombin Time 11.7 sec (9.8-11.6)
--- NOTE | 2018-07-09 12:38 | XR ---
EXAM DATE: 07/09/2018 12:33 PM EDT AGE/SEX: 72 years / Male INDICATIONS: Fever. CLINICAL DATA: This is the patient's initial encounter. Patient reports that signs and symptoms have been present for 1 day and indicates a pain score of Nonresponsive. MEDICAL/SURGICAL HISTORY: Hypertension. a-fib, COPD, dementia, cva, stage IV kidney disease, li abi cirrhosis, chf . cabg x2 COMPARISON: [facility], CHEST 1V SINGLE AP, 06/08/2018. . FINDINGS: The examination demonstrates a dialysis catheter in position within the superior vena cava. The patient is post median sternotomy. The inferior sternal wires no longer intact. This is stable co mpared to previous. The lungs are clear. The heart is mildly enlarged. The bony structures are grossl y intact. CONCLUSION: Dialysis catheter in good position. The lungs are clear. Electronically signed by: Adan Dominguez MD 07/09/2018 12:37 PM EDT
[2018-07-09 12:49] LABS: Alanine Aminotransferase 21 U/L (12-78)
[2018-07-09 12:53] LABS: Alkaline Phosphatase 174 U/L (45-117); Total Protein 6.2 g/dL (6.4-8.2); Troponin I 0.03 ng/mL (0.02-0.05)
[2018-07-09 12:54] LABS: Anion Gap 12 meq/L (5-15); Aspartate Aminotransferase 50 U/L (15-37); Blood Urea Nitrogen 35 mg/dL (7-18); Calcium 8.1 mg/dL (8.5-10.1); Carbon Dioxide 23.5 meq/L (21.0-32.0); Chloride 103 meq/L (98-107); Glomerular Filtration Rate 9 mL/min (>89); Glucose,Random 118 mg/dL (74-106); Magnesium 1.8 mg/dL (1.5-2.5); Potassium 4.4 meq/L (3.5-5.1); Sodium 138 meq/L (136-145)
[2018-07-09] MEDS ORDERED: Vancomycin Inj 1 GM/200 ML PIGGYBACK IV.SIG SCH (13:00)
[2018-07-09 13:19] LABS: Lymphocytes 10 % (9-44); Monocytes 9 % (0-8); Myelocytes 1 % (0-0)
[2018-07-09 13:20] LABS: Ovalocytes 1+; Platelet Morphology Normal (Normal); Toxic Granulation 1+
--- NOTE | 2018-07-09 13:37 | ED ---
HPI General Chief Complaint: Fever Stated Complaint: fever Time Seen by Provider: 07/09/18 11:59 Source: family, RN notes reviewed and old records reviewed Mode of arrival: EMS Limitations: altered mental status History of Present Illness HPI Narrative: The patient is a 72-year-old male that was brought in from dialysis center because she was found to be hypotensive and febrile.. He has end-stage renal disease CVA dementia CHF diabetes and was recently discharged after he was admitted for urosepsis in May. [facility] couple [facility] days ago and was brought in today because of his above-mentioned symptoms. Patient unable to provide much information appears obtunded but responds to questions. Patient reports suprapubic pressure. MD complaint: fever Onset (ago): unknown Related Data Home Medications Medication Instructions Recorded Confirmed apixaban 2.5 mg PO BID 05/10/18 07/09/18 aspirin 81 mg PO DAILY 05/10/18 07/09/18 atorvastatin 40 mg PO DAILY 05/10/18 07/09/18 ipratropium-albuterol 3 ml INHALATION Q4H PRN 05/10/18 07/09/18 omeprazole 20 mg PO DAILY 05/10/18 07/09/18 pregabalin [Lyrica] 75 mg PO BID 05/10/18 07/09/18 clotrimazole 1 applic TOPICAL BID 05/31/18 07/09/18 tiotropium bromide [Spiriva with 1 cap INHALATION DAILY 05/31/18 07/09/18 HandiHaler] Previous Rx's Medication Instructions Recorded albuterol sulfate 2.5 mg NEB Q2HR NEB PRN ml 06/20/18 amiodarone 200 mg PO Q12HR tab 06/20/18 artificial tears(hypromellose) 1 drops EACH EYE BID g 06/20/18 [GenTeal Severe] ascorbic acid (vitamin C) [Vitamin 500 mg PO DAILY tab 06/20/18 C] carvedilol [Coreg] 3.125 mg PO BID@0600,1800 tab 06/20/18 ferrous sulfate 300 mg PO DAILY ml 06/20/18 insulin aspart U-100 [Novolog 0 unit SUB-Q Q4HR ml 06/20/18 U-100 Insulin aspart] insulin aspart U-100 [Novolog 5 unit SUB-Q TIDAC ml 06/20/18 U-100 Insulin aspart] insulin detemir U-100 [Levemir 10 unit SUB-Q BID ml 06/20/18 U-100 Insulin] levothyroxine [Synthroid] 75 mcg PO DAILY@0600 tab 06/20/18 levothyroxine [Synthroid] 100 mcg PO DAILY@0600 tab 06/20/18 nitroglycerin [Nitrostat] 0.4 mg SUBLINGUAL Q5M PRN tab 06/20/18 polyethylene glycol 3350 17 gm NG/OG BID ea 06/20/18 sevelamer carbonate [Renvela] 800 mg PO TIDAC #0 tab 06/20/18 Allergies Allergy/AdvReac Type Severity Reaction Status Date / Time celecoxib [From Celebrex] Allergy Severe Itching Verified 07/09/18 11:57 ciprofloxacin Allergy Severe Itching Verified 07/09/18 11:57 diatrizoate meglumine Allergy Severe Itching Verified 07/09/18 11:57 gadobenic acid Allergy Severe Itching Verified 07/09/18 11:57 gadodiamide Allergy Severe Itching Verified 07/09/18 11:57 gadoteridol Allergy Severe Itching Verified 07/09/18 11:57 iodixanol Allergy Severe Itching Verified 07/09/18 11:57 iohexol Allergy Severe Itching Verified 07/09/18 11:57 levofloxacin Allergy Severe Itching Verified 07/09/18 11:57 ezetimibe [From Zetia] Allergy Intermediate Itching Verified 07/09/18 11:57 prochlorperazine Allergy Unknown Itching Verified 05/10/18 20:51 [From Compazine] red dye Allergy Unknown Itching Verified 05/10/18 20:51 Review of Systems ROS: all other systems reviewed are negative PMFSH History History Provided By: Family Member, Medical Record and Filter Tip Inspector / EMT Medical History Medical History Anginal equivalent (Acute) Anticoagulant long-term use (Acute) Dysphasia (Acute) Occlusion of right internal carotid artery (Acute) Chronic kidney disease, stage IV (severe) (Acute) BPH (benign prostatic hyperplasia) (Acute) Diabetes mellitus (Acute) Sleep apnea (Acute) PTSD (post-traumatic stress disorder) (Acute) COPD (chronic obstructive pulmonary disease) (Acute) Acute on chronic systolic (congestive) heart failure (Acute) Atrial fibrillation (Acute) Atherosclerotic cardiovascular disease (Acute) NSTEMI (non-ST elevated myocardial infarction) (Acute) Adjustment disorder (Acute) Chronic use of benzodiazepine for therapeutic purpose (Acute) Coronary artery disease (Acute) Dementia (Acute) Essential hypertension (Acute) Fibromyalgia (Acute) Hyperlipidemia (Acute) Hypertension (Acute) Hypothyroid (Acute) Nephrolithiasis (Acute) Surgical History Surgical History History of liver biopsy (Acute) H/O hand surgery (Acute) S/P TURP (Acute) S/P coronary artery stent placement (Acute) H/O nephrostomy (Acute) Presence of coronary angioplasty implant and graft (Acute) Family History Family History Mother Family history of diabetes mellitus Social History Social History Substance History: No History of Abuse Second Hand Smoke Exposure: No Smoking Status: Never smoker Tobacco Type: Cigarettes Years Smoked: 30 Number of Pack-Years (if former smoker): 30 How Often Do You Have a Drink Containing Alcohol: Never Recent Travel in [facility] within the Last 8 Weeks: No Recent Out of Country Travel within the Last 8 Weeks: No Exam Narrative Exam Narrative: GENERAL: Sleeping and non-distressed does respond to verbal commands. SKIN: Focused skin assessment warm/dry. HEAD: Atraumatic. Normocephalic. EYES: Pupils equal and round. No scleral icterus. No injection or drainage. ENT: No nasal bleeding or discharge. Mucous membranes pink and moist. NECK: Trachea midline. No JVD. CARDIOVASCULAR: Regular rate and rhythm. No murmur appreciated. RESPIRATORY: No accessory muscle use. Clear to auscultation. Breath sounds equal bilaterally. GASTROINTESTINAL: Abdomen soft, non-tender, nondistended. Hepatic and splenic margins not palpable. MUSCULOSKELETAL: No obvious deformities. No clubbing. No cyanosis. No edema. NEUROLOGICAL: Awake and alert. No obvious cranial nerve deficits. Motor grossly within normal limits. Normal speech. PSYCHIATRIC: Appropriate mood and affect; insight and judgment normal. Course Hospital Course: Patient received evaluation per sepsis protocol however we did not give him fluids due to his ESRD on dialysis status. His blood pressure was stable. He did receive broad-spectrum antibiotics. Urine collection was delayed however we did get some it appeared to be purulent. I did a bedside ultrasound for residual volume of about 400 mL's within the bladder. Nephrology was consulted for initiation of dialysis. He is in A. fib controlled rate. Patient also complained of bedsores and he appears to have a stage 2 decubitus ulcer for which he was placed on Mepilex. Patient does have a permacath on the right upper chest that may be also source of infection blood cultures were obtained and results are pending at this time. He is also in renal failure likely secondary to his urinary tract infection. Hemodynamically stable afebrile on admission. He did have a small episode of hypotension that was addressed with 250 cc bolus and good response. Reevaluation(s) Reevaluation #1: Hemodynamically stable in no distress awaiting results. Patient is sleeping at this time. Time: 13:00 Initial Documented Vital Signs Temperature 100.4 F H 07/09/18 11:58 Pulse Rate 93 H 07/09/18 11:58 Respiratory Rate 20 07/09/18 11:58 Blood Pressure 110/59 L 07/09/18 11:58 Pulse Oximetry 94 L 07/09/18 11:58 Last Documented Vital Signs Temperature 97.3 F L 07/12/18 09:35 Pulse Rate 64 07/12/18 09:35 Respiratory Rate 16 07/12/18 09:35 Blood Pressure 96/70 L 07/12/18 09:35 Pulse Oximetry 97 07/12/18 09:35 Critical Care Time Critical Care Time: Yes Total Critical Care Time: 30 Attestation: Aggregate critical care time was 30 minutes. Time to perform other separately billable procedures was not included in the critical care time. My time did not include minutes spent treating any other patients simultaneously or on activities that did not directly contribute to the patient's treatment. The services I provided to this patient were to treat and/or prevent clinically significant deterioration that could result in: Permanent disability and or I provided critical care services requiring my management, as noted below: Chart data review, documentation time, medication orders and management, vital sign assessments/reviewing monitor data, ordering and reviewing lab tests, ordering and interpreting/reviewing x-rays and diagnostic studies, care of the patient and discussion of the patient with the admitting physicians. Medical Decision Making MDM Narrative Medical Screen Exam Complete: Yes Emergency Medical Condition: Yes Lab Data Result diagrams: 07/12/18 05:47 07/12/18 05:47 Lab Results 07/09/18 07/09/18 07/09/18 Range/Units 12:05 12:05 12:05 WBC 17.7 H (4.0-11.0) th/mm3 RBC 3.10 L (4.50-5.90) mil/mm3 Hgb 9.0 L (13.0-17.0) gm/dL Hct 29.3 L (39.0-51.0) % MCV 94.5 (80.0-100.0) fL MCH 29.0 (27.0-34.0) pg MCHC 30.7 L (32.0-36.0) % RDW 15.3 (11.6-17.2) % Plt Count 459 H D (150-450) th/mm3 MPV 7.4 (7.0-11.0) fL Prelim Diff (Auto) Slide review pending Neut % (Auto) 79.3 H (16.0-70.0) % Lymph % (Auto) 9.3 (9.0-44.0) % [place] % (Auto) 9.9 H (0.0-8.0) % Eos % (Auto) 1.0 (0.0-4.0) % Baso % (Auto) 0.5 (0.0-2.0) % Neut # (Auto) 14.0 H (1.8-7.7) th/mm3 Lymph # (Auto) 1.6 (1.0-4.8) th/mm3 [place] # (Auto) 1.7 H (0.0-0.9) th/mm3 Eos # (Auto) 0.2 (0.0-0.4) th/mm3 Baso # (Auto) 0.1 (0.0-0.2) th/mm3 WBC Differential Manual diff final Seg Neuts % (Manual) 77 H (16-70) % Band Neuts % (Manual) 3 (0-6) % Lymphocytes % (Manual) 10 (9-44) % Monocytes % (Manual) 9 H (0-8) % Eosinophils % (Manual) (0-4) % Metamyelocytes % (Man) (0-1) % Myelocytes % (Man) 1 H (0-0) % Promyelocytes % (Man) (0-0) % Abs Neuts (Manual) 14.3 H (1.8-7.7) th/mm3 Differential Comment . Toxic Granulation 1+ H (None) Platelet Estimate High H (Normal) Platelet Morphology Normal (Normal) Ovalocytes 1+ H (None) PT 11.7 H (9.8-11.6) sec INR 1.2 Ratio APTT 26.8 (24.3-30.1) sec Sodium 138 (136-145) meq/L Potassium 4.4 (3.5-5.1) meq/L Chloride 103 (98-107) meq/L Carbon Dioxide 23.5 (21.0-32.0) meq/L Anion Gap 12 (5-15) meq/L BUN 35 H (7-18) mg/dL Creatinine 6.07 H (0.60-1.30) mg/dL Estimated GFR 9 L (>89) mL/min POC Glucose (68-110) mg/dl Random Glucose 118 H (74-106) mg/dL Hemoglobin A1c (4.3-6.0) % Lactic Acid (0.4-2.0) mmol/L Calcium 8.1 L (8.5-10.1) mg/dL Phosphorus 3.0 (2.5-4.9) mg/dL Magnesium 1.8 (1.5-2.5) mg/dL Total Bilirubin 0.3 (0.2-1.0) mg/dL AST 50 H (15-37) U/L ALT 21 (12-78) U/L Alkaline Phosphatase 174 H (45-117) U/L Troponin I 0.03 (0.02-0.05) ng/mL Total Protein 6.2 L (6.4-8.2) g/dL Albumin 2.0 L (3.4-5.0) g/dL TSH (0.358-3.740) uIU/mL Free T4 (0.76-1.46) ng/dL Urine Color (Yellw/Straw) Urine Clarity (Clear) Urine pH (5.0-8.5) Ur Specific [place] (1.002-1.035) Urine Protein (Neg-Trace) mg/dL Urine Glucose (UA) (Negative) mg/dL Urine Ketones (Negative) mg/dL Urine Occult Blood (Negative) Urine Nitrate (Negative) Urine Bilirubin (Negative) Urine Urobilinogen (Less than 2) mg/dL Ur Leukocyte Esterase (Negative) Urine RBC (0-3) /hpf Urine WBC (0-5) /hpf Urine Bacteria (None) /hpf Micro UA Comment Ur Microscopic Review Urine Culture Comments Random Vancomycin Comment 07/09/18 07/09/18 07/09/18 Range/Units 12:05 15:00 15:10 WBC (4.0-11.0) th/mm3 RBC (4.50-5.90) mil/mm3 Hgb (13.0-17.0) gm/dL Hct (39.0-51.0) % MCV (80.0-100.0) fL MCH (27.0-34.0) pg MCHC (32.0-36.0) % RDW (11.6-17.2) % Plt Count (150-450) th/mm3 MPV (7.0-11.0) fL Prelim Diff (Auto) Neut % (Auto) (16.0-70.0) % Lymph % (Auto) (9.0-44.0) % [place] % (Auto) (0.0-8.0) % Eos % (Auto) (0.0-4.0) % Baso % (Auto) (0.0-2.0) % Neut # (Auto) (1.8-7.7) th/mm3 Lymph # (Auto) (1.0-4.8) th/mm3 [place] # (Auto) (0.0-0.9) th/mm3 Eos # (Auto) (0.0-0.4) th/mm3 Baso # (Auto) (0.0-0.2) th/mm3 WBC Differential Seg Neuts % (Manual) (16-70) % Band Neuts % (Manual) (0-6) % Lymphocytes % (Manual) (9-44) % Monocytes % (Manual) (0-8) % Eosinophils % (Manual) (0-4) % Metamyelocytes % (Man) (0-1) % Myelocytes % (Man) (0-0) % Promyelocytes % (Man) (0-0) % Abs Neuts (Manual) (1.8-7.7) th/mm3 Differential Comment Toxic Granulation (None) Platelet Estimate (Normal) Platelet Morphology (Normal) Ovalocytes (None) PT (9.8-11.6) sec INR Ratio APTT (24.3-30.1) sec Sodium (136-145) meq/L Potassium (3.5-5.1) meq/L Chloride (98-107) meq/L Carbon Dioxide (21.0-32.0) meq/L Anion Gap (5-15) meq/L BUN (7-18) mg/dL Creatinine (0.60-1.30) mg/dL Estimated GFR (>89) mL/min POC Glucose (68-110) mg/dl Random Glucose (74-106) mg/dL Hemoglobin A1c (4.3-6.0) % Lactic Acid 2.1 H 1.6 (0.4-2.0) mmol/L Calcium (8.5-10.1) mg/dL Phosphorus (2.5-4.9) mg/dL Magnesium (1.5-2.5) mg/dL Total Bilirubin (0.2-1.0) mg/dL AST (15-37) U/L ALT (12-78) U/L Alkaline Phosphatase (45-117) U/L Troponin I (0.02-0.05) ng/mL Total Protein (6.4-8.2) g/dL Albumin (3.4-5.0) g/dL TSH (0.358-3.740) uIU/mL Free T4 (0.76-1.46) ng/dL Urine Color Yellow (Yellw/Straw) Urine Clarity Turbid H (Clear) Urine pH 5.0 (5.0-8.5) Ur Specific [place] 1.016 (1.002-1.035) Urine Protein 100 H (Neg-Trace) mg/dL Urine Glucose (UA) 50 (Negative) mg/dL Urine Ketones Trace H (Negative) mg/dL Urine Occult Blood Moderate H (Negative) Urine Nitrate Negative (Negative) Urine Bilirubin Negative (Negative) Urine Urobilinogen Less than 2 (Less than 2) mg/dL Ur Leukocyte Esterase Large H (Negative) Urine RBC 30 H (0-3) /hpf Urine WBC (0-5) /hpf Urine Bacteria Many H (None) /hpf Micro UA Comment Cath-culture ind Ur Microscopic Review Not Reportable Urine Culture Comments Cath-cult indicated Random Vancomycin Comment 07/09/18 07/10/18 07/10/18 Range/Units 19:19 07:15 07:15 WBC 17.6 H (4.0-11.0) th/mm3 RBC 2.85 L (4.50-5.90) mil/mm3 Hgb 8.4 L (13.0-17.0) gm/dL Hct 26.7 L (39.0-51.0) % MCV 93.5 (80.0-100.0) fL MCH 29.6 (27.0-34.0) pg MCHC 31.6 L (32.0-36.0) % RDW 15.4 (11.6-17.2) % Plt Count 353 (150-450) th/mm3 MPV 7.6 (7.0-11.0) fL Prelim Diff (Auto) Slide review pending Neut % (Auto) 79.3 H (16.0-70.0) % Lymph % (Auto) 10.2 (9.0-44.0) % [place] % (Auto) 9.0 H (0.0-8.0) % Eos % (Auto) 1.0 (0.0-4.0) % Baso % (Auto) 0.5 (0.0-2.0) % Neut # (Auto) 13.9 H (1.8-7.7) th/mm3 Lymph # (Auto) 1.8 (1.0-4.8) th/mm3 [place] # (Auto) 1.6 H (0.0-0.9) th/mm3 Eos # (Auto) 0.2 (0.0-0.4) th/mm3 Baso # (Auto) 0.1 (0.0-0.2) th/mm3 WBC Differential Manual diff final Seg Neuts % (Manual) 72 H (16-70) % Band Neuts % (Manual) 4 (0-6) % Lymphocytes % (Manual) 14 (9-44) % Monocytes % (Manual) 7 (0-8) % Eosinophils % (Manual) 1 (0-4) % Metamyelocytes % (Man) (0-1) % Myelocytes % (Man) 1 H (0-0) % Promyelocytes % (Man) 1 H (0-0) % Abs Neuts (Manual) 13.7 H (1.8-7.7) th/mm3 Differential Comment . Toxic Granulation 1+ H (None) Platelet Estimate Normal (Normal) Platelet Morphology Normal (Normal) Ovalocytes 1+ H (None) PT (9.8-11.6) sec INR Ratio APTT (24.3-30.1) sec Sodium 141 (136-145) meq/L Potassium 3.8 (3.5-5.1) meq/L Chloride 105 (98-107) meq/L Carbon Dioxide 22.9 (21.0-32.0) meq/L Anion Gap 13 (5-15) meq/L BUN 44 H (7-18) mg/dL Creatinine 6.94 H (0.60-1.30) mg/dL Estimated GFR 8 L (>89) mL/min POC Glucose 154 H (68-110) mg/dl Random Glucose 71 L (74-106) mg/dL Hemoglobin A1c (4.3-6.0) % Lactic Acid (0.4-2.0) mmol/L Calcium 8.1 L (8.5-10.1) mg/dL Phosphorus (2.5-4.9) mg/dL Magnesium (1.5-2.5) mg/dL Total Bilirubin 0.3 (0.2-1.0) mg/dL AST 57 H (15-37) U/L ALT 26 (12-78) U/L Alkaline Phosphatase 167 H (45-117) U/L Troponin I (0.02-0.05) ng/mL Total Protein 5.9 L (6.4-8.2) g/dL Albumin 1.8 L (3.4-5.0) g/dL TSH (0.358-3.740) uIU/mL Free T4 (0.76-1.46) ng/dL Urine Color (Yellw/Straw) Urine Clarity (Clear) Urine pH (5.0-8.5) Ur Specific [place] (1.002-1.035) Urine Protein (Neg-Trace) mg/dL Urine Glucose (UA) (Negative) mg/dL Urine Ketones (Negative) mg/dL Urine Occult Blood (Negative) Urine Nitrate (Negative) Urine Bilirubin (Negative) Urine Urobilinogen (Less than 2) mg/dL Ur Leukocyte Esterase (Negative) Urine RBC (0-3) /hpf Urine WBC (0-5) /hpf Urine Bacteria (None) /hpf Micro UA Comment Ur Microscopic Review Urine Culture Comments Random Vancomycin Comment 07/10/18 07/10/18 07/10/18 Range/Units 08:17 11:34 17:45 WBC (4.0-11.0) th/mm3 RBC (4.50-5.90) mil/mm3 Hgb (13.0-17.0) gm/dL Hct (39.0-51.0) % MCV (80.0-100.0) fL MCH (27.0-34.0) pg MCHC (32.0-36.0) % RDW (11.6-17.2) % Plt Count (150-450) th/mm3 MPV (7.0-11.0) fL Prelim Diff (Auto) Neut % (Auto) (16.0-70.0) % Lymph % (Auto) (9.0-44.0) % [place] % (Auto) (0.0-8.0) % Eos % (Auto) (0.0-4.0) % Baso % (Auto) (0.0-2.0) % Neut # (Auto) (1.8-7.7) th/mm3 Lymph # (Auto) (1.0-4.8) th/mm3 [place] # (Auto) (0.0-0.9) th/mm3 Eos # (Auto) (0.0-0.4) th/mm3 Baso # (Auto) (0.0-0.2) th/mm3 WBC Differential Seg Neuts % (Manual) (16-70) % Band Neuts % (Manual) (0-6) % Lymphocytes % (Manual) (9-44) % Monocytes % (Manual) (0-8) % Eosinophils % (Manual) (0-4) % Metamyelocytes % (Man) (0-1) % Myelocytes % (Man) (0-0) % Promyelocytes % (Man) (0-0) % Abs Neuts (Manual) (1.8-7.7) th/mm3 Differential Comment Toxic Granulation (None) Platelet Estimate (Normal) Platelet Morphology (Normal) Ovalocytes (None) PT (9.8-11.6) sec INR Ratio APTT (24.3-30.1) sec Sodium (136-145) meq/L Potassium (3.5-5.1) meq/L Chloride (98-107) meq/L Carbon Dioxide (21.0-32.0) meq/L Anion Gap (5-15) meq/L BUN (7-18) mg/dL Creatinine (0.60-1.30) mg/dL Estimated GFR (>89) mL/min POC Glucose 92 99 84 (68-110) mg/dl Random Glucose (74-106) mg/dL Hemoglobin A1c (4.3-6.0) % Lactic Acid (0.4-2.0) mmol/L Calcium (8.5-10.1) mg/dL Phosphorus (2.5-4.9) mg/dL Magnesium (1.5-2.5) mg/dL Total Bilirubin (0.2-1.0) mg/dL AST (15-37) U/L ALT (12-78) U/L Alkaline Phosphatase (45-117) U/L Troponin I (0.02-0.05) ng/mL Total Protein (6.4-8.2) g/dL Albumin (3.4-5.0) g/dL TSH (0.358-3.740) uIU/mL Free T4 (0.76-1.46) ng/dL Urine Color (Yellw/Straw) Urine Clarity (Clear) Urine pH (5.0-8.5) Ur Specific [place] (1.002-1.035) Urine Protein (Neg-Trace) mg/dL Urine Glucose (UA) (Negative) mg/dL Urine Ketones (Negative) mg/dL Urine Occult Blood (Negative) Urine Nitrate (Negative) Urine Bilirubin (Negative) Urine Urobilinogen (Less than 2) mg/dL Ur Leukocyte Esterase (Negative) Urine RBC (0-3) /hpf Urine WBC (0-5) /hpf Urine Bacteria (None) /hpf Micro UA Comment Ur Microscopic Review Urine Culture Comments Random Vancomycin Comment 09/18/18 09/19/18 09/19/18 Range/Units 21:06 05:29 05:29 WBC 12.5 H (4.0-11.0) th/mm3 RBC 2.64 L (4.50-5.90) mil/mm3 Hgb 7.7 L (13.0-17.0) gm/dL Hct 24.6 L (39.0-51.0) % MCV 93.4 (80.0-100.0) fL MCH 29.1 (27.0-34.0) pg MCHC 31.2 L (32.0-36.0) % RDW 15.3 (11.6-17.2) % Plt Count 325 (150-450) th/mm3 MPV 7.4 (7.0-11.0) fL Prelim Diff (Auto) Slide review pending Neut % (Auto) 70.7 H (16.0-70.0) % Lymph % (Auto) 13.2 (9.0-44.0) % [place] % (Auto) 12.9 H (0.0-8.0) % Eos % (Auto) 2.5 (0.0-4.0) % Baso % (Auto) 0.7 (0.0-2.0) % Neut # (Auto) 8.9 H (1.8-7.7) th/mm3 Lymph # (Auto) 1.7 (1.0-4.8) th/mm3 [place] # (Auto) 1.6 H (0.0-0.9) th/mm3 Eos # (Auto) 0.3 (0.0-0.4) th/mm3 Baso # (Auto) 0.1 (0.0-0.2) th/mm3 WBC Differential Manual diff final Seg Neuts % (Manual) 61 (16-70) % Band Neuts % (Manual) 6 (0-6) % Lymphocytes % (Manual) 18 (9-44) % Monocytes % (Manual) 7 (0-8) % Eosinophils % (Manual) 4 (0-4) % Metamyelocytes % (Man) 1 (0-1) % Myelocytes % (Man) 2 H (0-0) % Promyelocytes % (Man) 1 H (0-0) % Abs Neuts (Manual) 8.9 H (1.8-7.7) th/mm3 Differential Comment . Toxic Granulation 1+ H (None) Platelet Estimate Normal (Normal) Platelet Morphology Clumped H (Normal) Ovalocytes 1+ H (None) PT (9.8-11.6) sec INR Ratio APTT (24.3-30.1) sec Sodium (136-145) meq/L Potassium (3.5-5.1) meq/L Chloride (98-107) meq/L Carbon Dioxide (21.0-32.0) meq/L Anion Gap (5-15) meq/L BUN (7-18) mg/dL Creatinine (0.60-1.30) mg/dL Estimated GFR (>89) mL/min POC Glucose 147 H (68-110) mg/dl Random Glucose (74-106) mg/dL Hemoglobin A1c 7.0 H (4.3-6.0) % Lactic Acid (0.4-2.0) mmol/L Calcium (8.5-10.1) mg/dL Phosphorus (2.5-4.9) mg/dL Magnesium (1.5-2.5) mg/dL Total Bilirubin (0.2-1.0) mg/dL AST (15-37) U/L ALT (12-78) U/L Alkaline Phosphatase (45-117) U/L Troponin I (0.02-0.05) ng/mL Total Protein (6.4-8.2) g/dL Albumin (3.4-5.0) g/dL TSH (0.358-3.740) uIU/mL Free T4 (0.76-1.46) ng/dL Urine Color (Yellw/Straw) Urine Clarity (Clear) Urine pH (5.0-8.5) Ur Specific [place] (1.002-1.035) Urine Protein (Neg-Trace) mg/dL Urine Glucose (UA) (Negative) mg/dL Urine Ketones (Negative) mg/dL Urine Occult Blood (Negative) Urine Nitrate (Negative) Urine Bilirubin (Negative) Urine Urobilinogen (Less than 2) mg/dL Ur Leukocyte Esterase (Negative) Urine RBC (0-3) /hpf Urine WBC (0-5) /hpf Urine Bacteria (None) /hpf Micro UA Comment Ur Microscopic Review Urine Culture Comments Random Vancomycin Comment 07/11/18 07/11/18 07/11/18 Range/Units 05:29 06:42 07:16 WBC (4.0-11.0) th/mm3 RBC (4.50-5.90) mil/mm3 Hgb (13.0-17.0) gm/dL Hct (39.0-51.0) % MCV (80.0-100.0) fL MCH (27.0-34.0) pg MCHC (32.0-36.0) % RDW (11.6-17.2) % Plt Count (150-450) th/mm3 MPV (7.0-11.0) fL Prelim Diff (Auto) Neut % (Auto) (16.0-70.0) % Lymph % (Auto) (9.0-44.0) % [place] % (Auto) (0.0-8.0) % Eos % (Auto) (0.0-4.0) % Baso % (Auto) (0.0-2.0) % Neut # (Auto) (1.8-7.7) th/mm3 Lymph # (Auto) (1.0-4.8) th/mm3 [place] # (Auto) (0.0-0.9) th/mm3 Eos # (Auto) (0.0-0.4) th/mm3 Baso # (Auto) (0.0-0.2) th/mm3 WBC Differential Seg Neuts % (Manual) (16-70) % Band Neuts % (Manual) (0-6) % Lymphocytes % (Manual) (9-44) % Monocytes % (Manual) (0-8) % Eosinophils % (Manual) (0-4) % Metamyelocytes % (Man) (0-1) % Myelocytes % (Man) (0-0) % Promyelocytes % (Man) (0-0) % Abs Neuts (Manual) (1.8-7.7) th/mm3 Differential Comment Toxic Granulation (None) Platelet Estimate (Normal) Platelet Morphology (Normal) Ovalocytes (None) PT (9.8-11.6) sec INR Ratio APTT (24.3-30.1) sec Sodium 142 (136-145) meq/L Potassium 3.3 L (3.5-5.1) meq/L Chloride 103 (98-107) meq/L Carbon Dioxide 34.2 H D (21.0-32.0) meq/L Anion Gap 5 (5-15) meq/L BUN 23 H (7-18) mg/dL Creatinine 4.55 H (0.60-1.30) mg/dL Estimated GFR 13 L (>89) mL/min POC Glucose 50 L 66 L (68-110) mg/dl Random Glucose 44 L* (74-106) mg/dL Hemoglobin A1c (4.3-6.0) % Lactic Acid (0.4-2.0) mmol/L Calcium 7.5 L (8.5-10.1) mg/dL Phosphorus 2.6 (2.5-4.9) mg/dL Magnesium 1.8 (1.5-2.5) mg/dL Total Bilirubin 0.3 (0.2-1.0) mg/dL AST 58 H (15-37) U/L ALT 29 (12-78) U/L Alkaline Phosphatase 176 H (45-117) U/L Troponin I (0.02-0.05) ng/mL Total Protein 5.2 L D (6.4-8.2) g/dL Albumin 1.6 L (3.4-5.0) g/dL TSH 24.100 H (0.358-3.740) uIU/mL Free T4 0.98 (0.76-1.46) ng/dL Urine Color (Yellw/Straw) Urine Clarity (Clear) Urine pH (5.0-8.5) Ur Specific [place] (1.002-1.035) Urine Protein (Neg-Trace) mg/dL Urine Glucose (UA) (Negative) mg/dL Urine Ketones (Negative) mg/dL Urine Occult Blood (Negative) Urine Nitrate (Negative) Urine Bilirubin (Negative) Urine Urobilinogen (Less than 2) mg/dL Ur Leukocyte Esterase (Negative) Urine RBC (0-3) /hpf Urine WBC (0-5) /hpf Urine Bacteria (None) /hpf Micro UA Comment Ur Microscopic Review Urine Culture Comments Random Vancomycin 17.9 Comment 07/11/18 07/11/18 07/11/18 Range/Units 07:33 08:07 11:41 WBC (4.0-11.0) th/mm3 RBC (4.50-5.90) mil/mm3 Hgb (13.0-17.0) gm/dL Hct (39.0-51.0) % MCV (80.0-100.0) fL MCH (27.0-34.0) pg MCHC (32.0-36.0) % RDW (11.6-17.2) % Plt Count (150-450) th/mm3 MPV (7.0-11.0) fL Prelim Diff (Auto) Neut % (Auto) (16.0-70.0) % Lymph % (Auto) (9.0-44.0) % [place] % (Auto) (0.0-8.0) % Eos % (Auto) (0.0-4.0) % Baso % (Auto) (0.0-2.0) % Neut # (Auto) (1.8-7.7) th/mm3 Lymph # (Auto) (1.0-4.8) th/mm3 [place] # (Auto) (0.0-0.9) th/mm3 Eos # (Auto) (0.0-0.4) th/mm3 Baso # (Auto) (0.0-0.2) th/mm3 WBC Differential Seg Neuts % (Manual) (16-70) % Band Neuts % (Manual) (0-6) % Lymphocytes % (Manual) (9-44) % Monocytes % (Manual) (0-8) % Eosinophils % (Manual) (0-4) % Metamyelocytes % (Man) (0-1) % Myelocytes % (Man) (0-0) % Promyelocytes % (Man) (0-0) % Abs Neuts (Manual) (1.8-7.7) th/mm3 Differential Comment Toxic Granulation (None) Platelet Estimate (Normal) Platelet Morphology (Normal) Ovalocytes (None) PT (9.8-11.6) sec INR Ratio APTT (24.3-30.1) sec Sodium (136-145) meq/L Potassium (3.5-5.1) meq/L Chloride (98-107) meq/L Carbon Dioxide (21.0-32.0) meq/L Anion Gap (5-15) meq/L BUN (7-18) mg/dL Creatinine (0.60-1.30) mg/dL Estimated GFR (>89) mL/min POC Glucose 65 L 165 H 79 (68-110) mg/dl Random Glucose (74-106) mg/dL Hemoglobin A1c (4.3-6.0) % Lactic Acid (0.4-2.0) mmol/L Calcium (8.5-10.1) mg/dL Phosphorus (2.5-4.9) mg/dL Magnesium (1.5-2.5) mg/dL Total Bilirubin (0.2-1.0) mg/dL AST (15-37) U/L ALT (12-78) U/L Alkaline Phosphatase (45-117) U/L Troponin I (0.02-0.05) ng/mL Total Protein (6.4-8.2) g/dL Albumin (3.4-5.0) g/dL TSH (0.358-3.740) uIU/mL Free T4 (0.76-1.46) ng/dL Urine Color (Yellw/Straw) Urine Clarity (Clear) Urine pH (5.0-8.5) Ur Specific [place] (1.002-1.035) Urine Protein (Neg-Trace) mg/dL Urine Glucose (UA) (Negative) mg/dL Urine Ketones (Negative) mg/dL Urine Occult Blood (Negative) Urine Nitrate (Negative) Urine Bilirubin (Negative) Urine Urobilinogen (Less than 2) mg/dL Ur Leukocyte Esterase (Negative) Urine RBC (0-3) /hpf Urine WBC (0-5) /hpf Urine Bacteria (None) /hpf Micro UA Comment Ur Microscopic Review Urine Culture Comments Random Vancomycin Comment 07/11/18 07/11/18 07/11/18 Range/Units 17:02 17:40 17:46 WBC (4.0-11.0) th/mm3 RBC (4.50-5.90) mil/mm3 Hgb (13.0-17.0) gm/dL Hct (39.0-51.0) % MCV (80.0-100.0) fL MCH (27.0-34.0) pg MCHC (32.0-36.0) % RDW (11.6-17.2) % Plt Count (150-450) th/mm3 MPV (7.0-11.0) fL Prelim Diff (Auto) Neut % (Auto) (16.0-70.0) % Lymph % (Auto) (9.0-44.0) % [place] % (Auto) (0.0-8.0) % Eos % (Auto) (0.0-4.0) % Baso % (Auto) (0.0-2.0) % Neut # (Auto) (1.8-7.7) th/mm3 Lymph # (Auto) (1.0-4.8) th/mm3 [place] # (Auto) (0.0-0.9) th/mm3 Eos # (Auto) (0.0-0.4) th/mm3 Baso # (Auto) (0.0-0.2) th/mm3 WBC Differential Seg Neuts % (Manual) (16-70) % Band Neuts % (Manual) (0-6) % Lymphocytes % (Manual) (9-44) % Monocytes % (Manual) (0-8) % Eosinophils % (Manual) (0-4) % Metamyelocytes % (Man) (0-1) % Myelocytes % (Man) (0-0) % Promyelocytes % (Man) (0-0) % Abs Neuts (Manual) (1.8-7.7) th/mm3 Differential Comment Toxic Granulation (None) Platelet Estimate (Normal) Platelet Morphology (Normal) Ovalocytes (None) PT (9.8-11.6) sec INR Ratio APTT (24.3-30.1) sec Sodium (136-145) meq/L Potassium (3.5-5.1) meq/L Chloride (98-107) meq/L Carbon Dioxide (21.0-32.0) meq/L Anion Gap (5-15) meq/L BUN (7-18) mg/dL Creatinine (0.60-1.30) mg/dL Estimated GFR (>89) mL/min POC Glucose 46 L* 142 H (68-110) mg/dl Random Glucose 120 H (74-106) mg/dL Hemoglobin A1c (4.3-6.0) % Lactic Acid (0.4-2.0) mmol/L Calcium (8.5-10.1) mg/dL Phosphorus (2.5-4.9) mg/dL Magnesium (1.5-2.5) mg/dL Total Bilirubin (0.2-1.0) mg/dL AST (15-37) U/L ALT (12-78) U/L Alkaline Phosphatase (45-117) U/L Troponin I (0.02-0.05) ng/mL Total Protein (6.4-8.2) g/dL Albumin (3.4-5.0) g/dL TSH (0.358-3.740) uIU/mL Free T4 (0.76-1.46) ng/dL Urine Color (Yellw/Straw) Urine Clarity (Clear) Urine pH (5.0-8.5) Ur Specific [place] (1.002-1.035) Urine Protein (Neg-Trace) mg/dL Urine Glucose (UA) (Negative) mg/dL Urine Ketones (Negative) mg/dL Urine Occult Blood (Negative) Urine Nitrate (Negative) Urine Bilirubin (Negative) Urine Urobilinogen (Less than 2) mg/dL Ur Leukocyte Esterase (Negative) Urine RBC (0-3) /hpf Urine WBC (0-5) /hpf Urine Bacteria (None) /hpf Micro UA Comment Ur Microscopic Review Urine Culture Comments Random Vancomycin Comment 07/11/18 07/12/18 07/12/18 Range/Units 21:25 05:47 05:47 WBC 10.5 (4.0-11.0) th/mm3 RBC 2.86 L (4.50-5.90) mil/mm3 Hgb 8.4 L (13.0-17.0) gm/dL Hct 26.3 L (39.0-51.0) % MCV 91.8 (80.0-100.0) fL MCH 29.5 (27.0-34.0) pg MCHC 32.1 (32.0-36.0) % RDW 15.9 (11.6-17.2) % Plt Count 317 (150-450) th/mm3 MPV 7.5 (7.0-11.0) fL Prelim Diff (Auto) Slide review pending Neut % (Auto) 63.3 (16.0-70.0) % Lymph % (Auto) 19.4 (9.0-44.0) % [place] % (Auto) 12.8 H (0.0-8.0) % Eos % (Auto) 3.6 (0.0-4.0) % Baso % (Auto) 0.9 (0.0-2.0) % Neut # (Auto) 6.6 (1.8-7.7) th/mm3 Lymph # (Auto) 2.0 (1.0-4.8) th/mm3 [place] # (Auto) 1.3 H (0.0-0.9) th/mm3 Eos # (Auto) 0.4 (0.0-0.4) th/mm3 Baso # (Auto) 0.1 (0.0-0.2) th/mm3 WBC Differential Manual diff final Seg Neuts % (Manual) 55 (16-70) % Band Neuts % (Manual) 7 H (0-6) % Lymphocytes % (Manual) 22 (9-44) % Monocytes % (Manual) 8 (0-8) % Eosinophils % (Manual) 2 (0-4) % Metamyelocytes % (Man) 4 H (0-1) % Myelocytes % (Man) 2 H (0-0) % Promyelocytes % (Man) (0-0) % Abs Neuts (Manual) 7.1 (1.8-7.7) th/mm3 Differential Comment . Toxic Granulation (None) Platelet Estimate Normal (Normal) Platelet Morphology Normal (Normal) Ovalocytes (None) PT (9.8-11.6) sec INR Ratio APTT (24.3-30.1) sec Sodium 139 (136-145) meq/L Potassium 3.5 (3.5-5.1) meq/L Chloride 99 (98-107) meq/L Carbon Dioxide 30.5 (21.0-32.0) meq/L Anion Gap 10 (5-15) meq/L BUN 26 H (7-18) mg/dL Creatinine 5.26 H (0.60-1.30) mg/dL Estimated GFR 11 L (>89) mL/min POC Glucose 87 (68-110) mg/dl Random Glucose 56 L (74-106) mg/dL Hemoglobin A1c (4.3-6.0) % Lactic Acid (0.4-2.0) mmol/L Calcium 7.8 L (8.5-10.1) mg/dL Phosphorus 2.2 L (2.5-4.9) mg/dL Magnesium 1.7 (1.5-2.5) mg/dL Total Bilirubin 0.3 (0.2-1.0) mg/dL AST 37 (15-37) U/L ALT 23 (12-78) U/L Alkaline Phosphatase 163 H (45-117) U/L Troponin I (0.02-0.05) ng/mL Total Protein 5.5 L (6.4-8.2) g/dL Albumin 1.6 L (3.4-5.0) g/dL TSH (0.358-3.740) uIU/mL Free T4 (0.76-1.46) ng/dL Urine Color (Yellw/Straw) Urine Clarity (Clear) Urine pH (5.0-8.5) Ur Specific [place] (1.002-1.035) Urine Protein (Neg-Trace) mg/dL Urine Glucose (UA) (Negative) mg/dL Urine Ketones (Negative) mg/dL Urine Occult Blood (Negative) Urine Nitrate (Negative) Urine Bilirubin (Negative) Urine Urobilinogen (Less than 2) mg/dL Ur Leukocyte Esterase (Negative) Urine RBC (0-3) /hpf Urine WBC (0-5) /hpf Urine Bacteria (None) /hpf Micro UA Comment Ur Microscopic Review Urine Culture Comments Random Vancomycin Comment 07/12/18 07/12/18 Range/Units 08:26 09:18 WBC (4.0-11.0) th/mm3 RBC (4.50-5.90) mil/mm3 Hgb (13.0-17.0) gm/dL Hct (39.0-51.0) % MCV (80.0-100.0) fL MCH (27.0-34.0) pg MCHC (32.0-36.0) % RDW (11.6-17.2) % Plt Count (150-450) th/mm3 MPV (7.0-11.0) fL Prelim Diff (Auto) Neut % (Auto) (16.0-70.0) % Lymph % (Auto) (9.0-44.0) % [place] % (Auto) (0.0-8.0) % Eos % (Auto) (0.0-4.0) % Baso % (Auto) (0.0-2.0) % Neut # (Auto) (1.8-7.7) th/mm3 Lymph # (Auto) (1.0-4.8) th/mm3 [place] # (Auto) (0.0-0.9) th/mm3 Eos # (Auto) (0.0-0.4) th/mm3 Baso # (Auto) (0.0-0.2) th/mm3 WBC Differential Seg Neuts % (Manual) (16-70) % Band Neuts % (Manual) (0-6) % Lymphocytes % (Manual) (9-44) % Monocytes % (Manual) (0-8) % Eosinophils % (Manual) (0-4) % Metamyelocytes % (Man) (0-1) % Myelocytes % (Man) (0-0) % Promyelocytes % (Man) (0-0) % Abs Neuts (Manual) (1.8-7.7) th/mm3 Differential Comment Toxic Granulation (None) Platelet Estimate (Normal) Platelet Morphology (Normal) Ovalocytes (None) PT (9.8-11.6) sec INR Ratio APTT (24.3-30.1) sec Sodium (136-145) meq/L Potassium (3.5-5.1) meq/L Chloride (98-107) meq/L Carbon Dioxide (21.0-32.0) meq/L Anion Gap (5-15) meq/L BUN (7-18) mg/dL Creatinine (0.60-1.30) mg/dL Estimated GFR (>89) mL/min POC Glucose 73 80 (68-110) mg/dl Random Glucose (74-106) mg/dL Hemoglobin A1c (4.3-6.0) % Lactic Acid (0.4-2.0) mmol/L Calcium (8.5-10.1) mg/dL Phosphorus (2.5-4.9) mg/dL Magnesium (1.5-2.5) mg/dL Total Bilirubin (0.2-1.0) mg/dL AST (15-37) U/L ALT (12-78) U/L Alkaline Phosphatase (45-117) U/L Troponin I (0.02-0.05) ng/mL Total Protein (6.4-8.2) g/dL Albumin (3.4-5.0) g/dL TSH (0.358-3.740) uIU/mL Free T4 (0.76-1.46) ng/dL Urine Color (Yellw/Straw) Urine Clarity (Clear) Urine pH (5.0-8.5) Ur Specific [place] (1.002-1.035) Urine Protein (Neg-Trace) mg/dL Urine Glucose (UA) (Negative) mg/dL Urine Ketones (Negative) mg/dL Urine Occult Blood (Negative) Urine Nitrate (Negative) Urine Bilirubin (Negative) Urine Urobilinogen (Less than 2) mg/dL Ur Leukocyte Esterase (Negative) Urine RBC (0-3) /hpf Urine WBC (0-5) /hpf Urine Bacteria (None) /hpf Micro UA Comment Ur Microscopic Review Urine Culture Comments Random Vancomycin Comment Imaging Data Radiologist's impression: Chest X-Ray 07/09/18 11:59 CONCLUSION: Dialysis catheter in good position. The lungs are clear. Catheter Placement 07/10/18 00:00 CONCLUSION: 1. Uncomplicated line placement as above. Discharge Plan Discharge Disposition Patient Disposition: 30 Still Patient Discharge Condition Condition: Fair Discharge Details Diagnosis: Acute UTI, ESRD (end stage renal disease) on dialysis, Toxic metabolic encephalopathy Physicians Team ED Provider: Donovan Jiang Primary Care Provider: Landen Haley Attending Provider: Lucian Forrest Other Providers: Pavel Perry ; Norman Tabares ; [facility] Discharge Interventions Interventions: ED Discharge Assessment Last Done: 07/09/18 17:45 Vital Signs Last Done: 07/09/18 17:45 Status ED Status: Left Department Discharge Information Discharge Date/Time: 07/09/18 17:45
[2018-07-09] MEDS ORDERED: Vancomycin Consult Pharmacy OTHER PRN (14:31)
[2018-07-09] MEDS ORDERED: Bisacodyl 10 MG Supp RECTAL PRN (14:33)
[2018-07-09] MEDS ORDERED: Vancomycin Inj 1,250 MG in Sodium Chlor 0.9% Inj 250 ML IV.SIG ONE (16:00)
[2018-07-09] MEDS ORDERED: Sod Chloride 0.9% Inj 1,000 ML IV.CONT PRN (16:15)
[2018-07-09] MEDS ORDERED: Gelatin 12 MM/7 MM Topical Foam TOPICAL PRN (16:15)
[2018-07-09] MEDS ORDERED: Acetaminophen 325 MG Tablet PO PRN (16:15)
[2018-07-09] MEDS ORDERED: Albumin Human 25% Inj 100 ML IV.SIG PRN (16:15)
[2018-07-09] MEDS ORDERED: Sod Chloride 0.9% Inj 1,000 ML OTHER PRN ×2 (16:15)
[2018-07-09] MEDS ORDERED: Heparin 10,000 UNITS/10 ML Vial (for IV use) OTHER PRN (16:15)
--- NOTE | 2018-07-09 16:32 | P.CONNP ---
History of Present Illness Service: Nephrology Reason for Consult: ESRD Primary Care Provider: Landen Haley MD Family Provider: Troy Crowder Chief Complaint: Hypotension, altered mental status History of Present Illness: This is a 72 year old male with ESRD. He was sent to outpatient vascular center for dialysis catheter exchange, but was found to be hypotensive, with altered mental status. On the suspicion of sepsis, he was sent to ER. He was subsequently admitted. Leukocytosis is noted. Patient has right IJ PermCath. Review of Systems unobtainable due to mental status PMFSH - History History Provided By: Medical Record - Medical History Medical History: Medical History (Last Updated 07/09/18 @ 12:00 by Wendy Arias) Anginal equivalent (Acute) Anticoagulant long-term use (Acute) Dysphasia (Acute) Occlusion of right internal carotid artery (Acute) Chronic kidney disease, stage IV (severe) (Acute) BPH (benign prostatic hyperplasia) (Acute) Diabetes mellitus (Acute) Sleep apnea (Acute) PTSD (post-traumatic stress disorder) (Acute) COPD (chronic obstructive pulmonary disease) (Acute) Acute on chronic systolic (congestive) heart failure (Acute) Atrial fibrillation (Acute) Atherosclerotic cardiovascular disease (Acute) NSTEMI (non-ST elevated myocardial infarction) (Acute) Adjustment disorder Chronic use of benzodiazepine for therapeutic purpose Coronary artery disease Dementia Essential hypertension Fibromyalgia Hyperlipidemia Hypertension Hypothyroid Nephrolithiasis - Surgical History Surgical History: Surgical History (Last Updated 07/09/18 @ 12:00 by Wendy Arias) History of liver biopsy (Acute) H/O hand surgery (Acute) S/P TURP (Acute) S/P coronary artery stent placement (Acute) H/O nephrostomy (Acute) Presence of coronary angioplasty implant and graft (Acute) - Family History Family History: Family History (Last Reviewed 06/14/18 @ 17:38 by Marialuisa Cedeño) Mother Family history of diabetes mellitus - Tobacco History Second Hand Smoke Exposure: No Smoking Status: Never smoker Tobacco Type: Cigarettes Years Smoked: 30 Number of Pack Years (if former smoker): 30 - Alcohol History How Often Do You Have a Drink Containing Alcohol: Never - Substance Use History Substance History: No History of Abuse - Travel History Recent Travel in the [place] Within the Last 8 Weeks: No Recent Travel Out of the Country Within the Last 8 Weeks: No - Immunization History Tetanus Immunization: Unable to Assess Hx Influenza Vaccine This Season: Unable to Assess Medications and Allergies Active Medications: Active Medications Acetaminophen (Tylenol) 650 mg PO UNSCH PRN PRN Reason: SEE LABEL COMMENTS Bisacodyl (Dulcolax Supp) 10 mg RECTAL DAILY PRN PRN Reason: SEVERE CONSITIPATION Clonidine HCl (Catapres) 0.1 mg PO UNSCH PRN PRN Reason: SEE LABEL COMMENTS Diphenhydramine HCl (Benadryl) 25 mg PO UNSCH PRN PRN Reason: SEE LABEL COMMENTS Epoetin Bud (Epogen Inj) 10,000 unit IV.PUSH UNSCH PRN PRN Reason: SEE LABEL COMMENTS Gelatin (Gelfoam 12 Mm/7 Mm Topical) 1 foam TOPICAL PRN PRN PRN Reason: help stop bleeding from site Gentamicin Sulfate (Gentamicin Inj) 20 mg OTHER WITH DIALYSIS PRN PRN Reason: Dwell Gentamycin Lock Heparin Sodium (Porcine) (Heparin Inj) 8,000 units OTHER WITH DIALYSIS PRN PRN Reason: for machine prime Heparin Sodium (Porcine) (Heparin Inj) 1,000 units OTHER WITH DIALYSIS PRN PRN Reason: Dwell Heparin to Fill Catheter Vancomycin HCl 1,250 mg/ (Sodium Chloride) 262.5 mls @ 250 mls/hr IV.SIG ONCE ONE Stop: 07/09/18 17:02 Last Admin: 07/09/18 15:31 Dose: 250 mls/hr Piperacillin/Tazobactam/Dextrose (Zosyn 2.25 Gm Premix) 50 mls @ 100 mls/hr IV.SIG Q6H WILFREDO Albumin Human (Flexbumin 25% Inj) 100 mls @ 60 mls/hr IV.SIG WITH DIALYSIS PRN PRN Reason: hypotension / volume replace Sodium Chloride (Ns Inj) 1,000 mls @ 0 mls/hr OTHER .Q0M PRN PRN Reason: for prime and rinse back Sodium Chloride (Ns Inj) 1,000 mls @ 200 mls/hr OTHER .Q5H PRN PRN Reason: for dialyzer flush PRN Sodium Chloride (Ns Inj) 1,000 mls @ 0 mls/hr IV.CONT .Q0M PRN PRN Reason: hypotension / volume replace Lactulose (Lactulose Liq) 30 ml PO DAILY PRN PRN Reason: SEVERE CONSITIPATION Mannitol (Mannitol Inj) 12.5 gm IV.PUSH UNSCH PRN PRN Reason: hypotension / volume replace Nitroglycerin (Nitrostat Sl) 0.4 mg SL Q5M PRN PRN Reason: CHEST PAIN Ondansetron HCl (Zofran Inj) 4 mg IV.PUSH UNSCH PRN PRN Reason: NAUSEA OR VOMITING Pharmacy Profile Note (Vancomycin Consult Pharmacy) 1 each OTHER UNSCH PRN PRN Reason: Pharmacy to dose Sennosides (Senokot) 17.2 mg PO Q12H PRN PRN Reason: Moderate Constipation Sodium Chloride (Ns Flush) 5 ml IV.FLUSH PRN PRN PRN Reason: flush each lumen during HD Allergies Allergy/AdvReac Type Severity Reaction Status Date / Time celecoxib [From Celebrex] Allergy Severe Itching Verified 07/09/18 11:57 ciprofloxacin Allergy Severe Itching Verified 07/09/18 11:57 diatrizoate meglumine Allergy Severe Itching Verified 07/09/18 11:57 gadobenic acid Allergy Severe Itching Verified 07/09/18 11:57 gadodiamide Allergy Severe Itching Verified 07/09/18 11:57 gadoteridol Allergy Severe Itching Verified 07/09/18 11:57 iodixanol Allergy Severe Itching Verified 07/09/18 11:57 iohexol Allergy Severe Itching Verified 07/09/18 11:57 levofloxacin Allergy Severe Itching Verified 07/09/18 11:57 ezetimibe [From Zetia] Allergy Intermediate Itching Verified 07/09/18 11:57 prochlorperazine Allergy Unknown Itching Verified 05/10/18 20:51 [From Compazine] red dye Allergy Unknown Itching Verified 05/10/18 20:51 Home Medications Medication Instructions Recorded Confirmed Type apixaban 2.5 mg PO BID 05/10/18 07/09/18 History aspirin 81 mg PO DAILY 05/10/18 07/09/18 History atorvastatin 40 mg PO DAILY 05/10/18 07/09/18 History ipratropium-albuterol 3 ml INHALATION Q4H PRN 05/10/18 07/09/18 History omeprazole 20 mg PO DAILY 05/10/18 07/09/18 History pregabalin [Lyrica] 75 mg PO BID 05/10/18 07/09/18 History clotrimazole 1 applic TOPICAL BID 05/31/18 07/09/18 History tiotropium bromide [Spiriva with 1 cap INHALATION DAILY 05/31/18 07/09/18 History HandiHaler] Exam Vital signs: Vital Signs 07/09/18 11:58 07/09/18 11:59 07/09/18 13:00 Temperature 100.4 F H 99.0 F Pulse Rate 93 H 78 79 Respiratory Rate 20 20 Blood Pressure 110/59 L 102/60 Pulse Oximetry 94 L 97 97 07/09/18 15:00 Temperature 99.0 F Pulse Rate 72 Respiratory Rate 18 Blood Pressure 98/60 L Pulse Oximetry 97 Intake & Output 07/08/18 07/09/18 07/09/18 18:59 06:59 18:59 Intake Total 50 / 50 Balance 50 / 50 Weight 104.326 kg Intake: IV 50 / 50 Zosyn 3.375 GM Premix 50 ML @ 50 / 50 100 mls/hr IV.SIG ONCE ONE Rx#: [id number] - Constitutional obese, chronically ill appearing, disheveled, somnolent - Routine HEENT Exam Head: Present: normocephalic, atraumatic Eye: Present: EOMI, PERRL - Routine Neck Exam Present: supple. Absent: JVD - Routine Chest/Breast/Axilla Exam Axillae: Absent: lymphadenopathy, mass - Routine Respiratory Exam Present: CTA bilaterally. Absent: respiratory distress - Routine Cardiovascular Exam Present: S1, S2, irregular rhythm - Routine Abdominal Exam Present: soft - Routine Extremities Exam Absent: edema - Routine Neurological Exam Present: altered mental status, tremors involuntary jerky movements noted. Results - Lab Results 07/09/18 12:05 07/09/18 12:05 Most recent lab results Calcium 8.1 mg/dL (8.5-10.1) L 07/09/18 12:05 Phosphorus 3.0 mg/dL (2.5-4.9) 07/09/18 12:05 Magnesium 1.8 mg/dL (1.5-2.5) 07/09/18 12:05 Assessment and Plan - Assessment (1) ESRD (end stage renal disease) on dialysis Code(s): N18.6 - End stage renal disease; Z99.2 - Dependence on renal dialysis Status: Acute Plan: Last dialysis was on Monday, there were catheter related problems. No need for dialysis today. Dialysis tomorrow. Monitor fluid and electrolytes. See below. (2) Sepsis Code(s): A41.9 - Sepsis, unspecified organism Status: Acute Plan: Could be dialysis catheter related sepsis, septic shock. He has been given Vancomycin, also on Zosyn. I will consult IR for removal of PermCath and placement of Vascath. (3) Anemia of renal disease Code(s): D63.1 - Anemia in chronic kidney disease Status: Acute Plan: Epogen with dialysis. (4) Atrial fibrillation Code(s): I48.91 - Unspecified atrial fibrillation Status: Acute Plan: Monitor heart rate. Monitor on telemetry - Attending Attestation Thanks for the consult. Prognosis is guarded.
[2018-07-09 16:38] LABS: Bacteria,Urine Many /hpf; Bilirubin,Urine Negative (Negative); Clarity,Urine Turbid (Clear); Color,Urine Yellow (Yellw/Straw); Glucose,Urine (UA) 50 mg/dL (Negative); Leukocyte Esterase,Urine Large (Negative); Nitrite,Urine Negative (Negative); Specific Gravity,Urine 1.016 (1.002-1.035)
--- NOTE | 2018-07-09 19:32 | P.HPIM ---
History of Present Illness Primary Care Physician: Landen Haley MD Chief Complaint: Hypotension, altered mental status History of Present Illness: 72-year-old male with a history of end-stage renal disease, CVA, dementia, chronic systolic heart failure, diabetes, recent admission last month discharged on June 20 after being treated for septic shock secondary to UTI. Patient presents today having been found to have a fever in clinic and has been sent in. Patient is arousable to verbal stimulation, says he has not been feeling well, and indicates that his stomach is painful in the suprapubic region. He denies any chest pain. Denies shortness of breath. He is oriented to person and place, not to year. Inpatient Certification: I certify that the inpatient services were ordered in accordance with Medicare regulations governing the order. This includes certification that hospital inpatient services are reasonable and necessary and in the case of services not specified as inpatient-only under 42 CFR 419.22(n), that they are appropriately provided as inpatient services in accordance to with the 2-midnight benchmark under 43 CFR 412.3(e) Estimated Total Length of Stay (Days): 3 Plans for Post Hospital Care: Home Review of Systems All other systems reviewed negative except as stated in HPI PMFSH - History History Provided By: Medical Record - Medical History Medical History: Medical History (Last Updated 07/09/18 @ 12:00 by Wendy Arias) Anginal equivalent (Acute) Anticoagulant long-term use (Acute) Dysphasia (Acute) Occlusion of right internal carotid artery (Acute) Chronic kidney disease, stage IV (severe) (Acute) BPH (benign prostatic hyperplasia) (Acute) Diabetes mellitus (Acute) Sleep apnea (Acute) PTSD (post-traumatic stress disorder) (Acute) COPD (chronic obstructive pulmonary disease) (Acute) Acute on chronic systolic (congestive) heart failure (Acute) Atrial fibrillation (Acute) Atherosclerotic cardiovascular disease (Acute) NSTEMI (non-ST elevated myocardial infarction) (Acute) Adjustment disorder Chronic use of benzodiazepine for therapeutic purpose Coronary artery disease Dementia Essential hypertension Fibromyalgia Hyperlipidemia Hypertension Hypothyroid Nephrolithiasis - Surgical History Surgical History: Surgical History (Last Updated 07/09/18 @ 12:00 by Wendy Arias) History of liver biopsy (Acute) H/O hand surgery (Acute) S/P TURP (Acute) S/P coronary artery stent placement (Acute) H/O nephrostomy (Acute) Presence of coronary angioplasty implant and graft (Acute) - Family History Family History: Family History (Last Reviewed 06/14/18 @ 17:38 by Marialuisa Cedeño) Mother Family history of diabetes mellitus - Tobacco History Second Hand Smoke Exposure: No Smoking Status: Never smoker Tobacco Type: Cigarettes Years Smoked: 30 Number of Pack Years (if former smoker): 30 - Alcohol History How Often Do You Have a Drink Containing Alcohol: Never - Substance Use History Substance History: No History of Abuse - Travel History Recent Travel in the [place] Within the Last 8 Weeks: No Recent Travel Out of the Country Within the Last 8 Weeks: No - Immunization History Tetanus Immunization: Unable to Assess Hx Influenza Vaccine This Season: Unable to Assess Medications and Allergies Active Medications: Active Medications Acetaminophen (Tylenol) 650 mg PO UNSCH PRN PRN Reason: SEE LABEL COMMENTS Albuterol (*Albuterol Neb Periprocedure Only) 2.5 mg NEB Q2HR NEB PRN PRN Reason: Shortness Of Breath/Wheezing Albuterol (Duoneb Neb (Prn)) ampul INH Q4H PRN PRN Reason: Shortness Of Breath Amiodarone HCl (Cordarone) 200 mg PO Q12HR [place] Artificial Tears (Genteal Severe Dry Eye Relief 0.3% Opth Gel) 1 drops EACH EYE BID [place] Aspirin (Aspirin Chew) 81 mg PO DAILY [place] Atorvastatin Calcium (Lipitor) 40 mg PO DAILY [place] Bisacodyl (Dulcolax Supp) 10 mg RECTAL DAILY PRN PRN Reason: SEVERE CONSITIPATION Carvedilol (Coreg) 3.125 mg PO BID@0600,1800 [place] Clonidine HCl (Catapres) 0.1 mg PO UNSCH PRN PRN Reason: SEE LABEL COMMENTS Dextrose (D50w Vial) 50 ml IV.PUSH UNSCH PRN PRN Reason: PER HYPOGLYCEMIA PROTOCOL Diphenhydramine HCl (Benadryl) 25 mg PO UNSCH PRN PRN Reason: SEE LABEL COMMENTS Epoetin Bud (Epogen Inj) 10,000 unit IV.PUSH UNSCH PRN PRN Reason: SEE LABEL COMMENTS Gelatin (Gelfoam 12 Mm/7 Mm Topical) 1 foam TOPICAL PRN PRN PRN Reason: help stop bleeding from site Gentamicin Sulfate (Gentamicin Inj) 20 mg OTHER WITH DIALYSIS PRN PRN Reason: Dwell Gentamycin Lock Heparin Sodium (Porcine) (Heparin Inj) 8,000 units OTHER WITH DIALYSIS PRN PRN Reason: for machine prime Heparin Sodium (Porcine) (Heparin Inj) 1,000 units OTHER WITH DIALYSIS PRN PRN Reason: Dwell Heparin to Fill Catheter Piperacillin/Tazobactam/Dextrose (Zosyn 2.25 Gm Premix) 50 mls @ 100 mls/hr IV.SIG Q6H [place] Albumin Human (Flexbumin 25% Inj) 100 mls @ 60 mls/hr IV.SIG WITH DIALYSIS PRN PRN Reason: hypotension / volume replace Sodium Chloride (Ns Inj) 1,000 mls @ 0 mls/hr OTHER .Q0M PRN PRN Reason: for prime and rinse back Sodium Chloride (Ns Inj) 1,000 mls @ 200 mls/hr OTHER .Q5H PRN PRN Reason: for dialyzer flush PRN Sodium Chloride (Ns Inj) 1,000 mls @ 0 mls/hr IV.CONT .Q0M PRN PRN Reason: hypotension / volume replace Insulin Aspart (Novolog Insulin Correctional Sugar Inj) 0 unit SQ ACHS [place]; Protocol Insulin Detemir (Levemir Inj) 10 unit SQ BID [place] Lactulose (Lactulose Liq) 30 ml PO DAILY PRN PRN Reason: SEVERE CONSITIPATION Levothyroxine Sodium (Synthroid) 75 mcg PO DAILY@0600 [place] Mannitol (Mannitol Inj) 12.5 gm IV.PUSH UNSCH PRN PRN Reason: hypotension / volume replace Nitroglycerin (Nitrostat Sl) 0.4 mg SL Q5M PRN PRN Reason: CHEST PAIN Non-Formulary Medication (Clotrimazole [Clotrimazole]) 1 applic TOPICAL BID [facility] Non-Formulary Medication (Omeprazole [Omeprazole]) 20 mg PO DAILY [place] Ondansetron HCl (Zofran Inj) 4 mg IV.PUSH UNSCH PRN PRN Reason: NAUSEA OR VOMITING Pharmacy Profile Note (Vancomycin Consult Pharmacy) 1 each OTHER UNSCH PRN PRN Reason: Pharmacy to dose Polyethylene Glycol (Miralax) 17 gm NG/OG BID [facility] Sennosides (Senokot) 17.2 mg PO Q12H PRN PRN Reason: Moderate Constipation Sevelamer Carbonate (Renvela) 800 mg PO TIDAC [place] Sodium Chloride (Ns Flush) 5 ml IV.FLUSH PRN PRN PRN Reason: flush each lumen during HD Tiotropium [place] (Spiriva 18 Mcg Inh) mcg INH DAILY [place] Allergies Allergy/AdvReac Type Severity Reaction Status Date / Time celecoxib [From Celebrex] Allergy Severe Itching Verified 07/09/18 11:57 ciprofloxacin Allergy Severe Itching Verified 07/09/18 11:57 diatrizoate meglumine Allergy Severe Itching Verified 07/09/18 11:57 gadobenic acid Allergy Severe Itching Verified 07/09/18 11:57 gadodiamide Allergy Severe Itching Verified 07/09/18 11:57 gadoteridol Allergy Severe Itching Verified 07/09/18 11:57 iodixanol Allergy Severe Itching Verified 07/09/18 11:57 iohexol Allergy Severe Itching Verified 07/09/18 11:57 levofloxacin Allergy Severe Itching Verified 07/09/18 11:57 ezetimibe [From Zetia] Allergy Intermediate Itching Verified 07/09/18 11:57 prochlorperazine Allergy Unknown Itching Verified 05/10/18 20:51 [From Compazine] red dye Allergy Unknown Itching Verified 05/10/18 20:51 Home Medications Medication Instructions Recorded Confirmed Type apixaban 2.5 mg PO BID 05/10/18 07/09/18 History aspirin 81 mg PO DAILY 05/10/18 07/09/18 History atorvastatin 40 mg PO DAILY 05/10/18 07/09/18 History ipratropium-albuterol 3 ml INHALATION Q4H PRN 05/10/18 07/09/18 History omeprazole 20 mg PO DAILY 05/10/18 07/09/18 History pregabalin [Lyrica] 75 mg PO BID 05/10/18 07/09/18 History clotrimazole 1 applic TOPICAL BID 05/31/18 07/09/18 History tiotropium bromide [Spiriva with 1 cap INHALATION DAILY 05/31/18 07/09/18 History HandiHaler] Exam Vital signs: Vital Signs 07/09/18 11:58 07/09/18 11:59 07/09/18 13:00 Temperature 100.4 F H 99.0 F Pulse Rate 93 H 78 79 Respiratory Rate 20 20 Blood Pressure 110/59 L 102/60 Pulse Oximetry 94 L 97 97 07/09/18 15:00 07/09/18 16:35 07/09/18 17:45 Temperature 99.0 F 98.6 F 98.6 F Pulse Rate 72 76 78 Respiratory Rate 18 18 20 Blood Pressure 98/60 L 101/59 L 102/69 Pulse Oximetry 97 97 97 Intake & Output 07/09/18 07/09/18 07/10/18 06:59 18:59 06:59 Intake Total 312.5 / 312.5 Output Total 200 / 200 Balance 112.5 / 112.5 Weight 104.326 kg Intake: IV 312.5 / 312.5 Zosyn 3.375 GM Premix 50 ML @ 50 / 50 100 mls/hr IV.SIG ONCE ONE Rx#: [id number] Vancomycin Inj 1,250 MG In NS 262.5 / 262.5 Inj 250 ML @ 250 mls/hr IV.SIG ONCE ONE Rx#:[id number] Output: Urine Amount (Catheter) 200 / 200 Indwelling Urethral Catheter 200 / 200 Narrative: GENERAL: patient lying in bed. awake, confused. Alert and oriented 2 SKIN: Warm and dry. HEAD: Atraumatic. Normocephalic. EYES: Pupils equal and round. No scleral icterus. No injection or drainage. ENT: No nasal bleeding or discharge. Mucous membranes pink and moist. NECK: Trachea midline. No JVD. CARDIOVASCULAR: Regular rate and rhythm. RESPIRATORY: No accessory muscle use. Clear to auscultation. Breath sounds equal bilaterally. GASTROINTESTINAL: Abdomen soft,. Distended bladder. Direct ultrasoundvisualization along with the ER physician, patient found to have about 500 mL and bladder. Hepatic and splenic margins not palpable. MUSCULOSKELETAL: Extremities without clubbing, cyanosis, or edema. No obvious deformities. NEUROLOGICAL: No obvious cranial nerve deficits. Motor grossly within normal limits. Five out of 5 muscle strength in the arms and legs. slow speech. PSYCHIATRIC: Appropriate mood and affect; insight and judgment normal. Results - Labs CBC & Chem 7: 07/09/18 12:05 07/09/18 12:05 Labs: Short CBC 07/09/18 Range/Units 12:05 WBC 17.7 H (4.0-11.0) th/mm3 Hgb 9.0 L (13.0-17.0) gm/dL Hct 29.3 L (39.0-51.0) % Plt Count 459 H D (150-450) th/mm3 BMP 07/09/18 12:05 Sodium 138 Potassium 4.4 Chloride 103 Carbon Dioxide 23.5 BUN 35 H Creatinine 6.07 H Calcium 8.1 L Cardiac Enzymes 07/09/18 Range/Units 12:05 Troponin I 0.03 (0.02-0.05) ng/mL Liver Function 07/09/18 Range/Units 12:05 Total Bilirubin 0.3 (0.2-1.0) mg/dL AST 50 H (15-37) U/L ALT 21 (12-78) U/L Alkaline Phosphatase 174 H (45-117) U/L Albumin 2.0 L (3.4-5.0) g/dL Urine 07/09/18 Range/Units 15:00 Urine Color Yellow (Yellw/Straw) Urine Clarity Turbid H (Clear) Urine pH 5.0 (5.0-8.5) Ur Specific [place] 1.016 (1.002-1.035) Urine Protein 100 H (Neg-Trace) mg/dL Urine Glucose (UA) 50 (Negative) mg/dL - Imaging Impressions Chest X-Ray 07/09/18 11:59 CONCLUSION: Dialysis catheter in good position. The lungs are clear. Caprini VTE Risk Assessment Caprini VTE Risk Assessment: Moderate/High Risk (score >= 2) Caprini Risk Assessment Model: Point Value = 1 Point Value = 2 Point Value = 3 Point Value = 5 Age 41-60 Minor surgery BMI > 25 kg/m2 Swollen legs Varicose veins or History of unexplained or recurrent spontaneous Oral contraceptives or hormone replacement Sepsis (< 1 month) Serious lung disease, including pneumonia (< 1 month) Abnormal pulmonary function Acute myocardial infarction Congestive heart failure (< 1 month) History of inflammatory bowel disease Medical patient at bed rest Age 61-74 Arthroscopic surgery Major open surgery (> 45 min) Laparoscopic surgery (> 45 min) Malignancy Confined to bed (> 72 hours) Immobilizing plaster cast Central venous access Age >= 75 History of VTE Family history of VTE Factor V Leiden Prothrombin [id number] Lupus anticoagulant Anticardiolipin antibodies Elevated serum homocysteine Heparin-induced thrombocytopenia Other congenital or acquired thrombophilia Stroke (< 1 month) Elective arthroplasty Hip, pelvis, or leg fracture Acute spinal cord injury (< 1 month) Prophylaxis Regimen: Total Risk Factor Score Risk Level Prophylaxis Regimen 0-1 Low Early ambulation 2 Moderate Order ONE of the following: *Sequential Compression Device (SCD) *Heparin 5000 units SQ BID 3-4 Higher Order ONE of the following medications: *Heparin 5000 units SQ TID *Enoxaparin/Lovenox 40 mg SQ daily (WT < 150 kg, CrCl > 30 mL/min) *Enoxaparin/Lovenox 30 mg SQ daily (WT < 150 kg, CrCl > 10-29 mL/min) *Enoxaparin/Lovenox 30 mg SQ BID (WT < 150 kg, CrCl > 30 mL/min) AND/OR *Sequential Compression Device (SCD) 5 or more Highest Order ONE of the following medications: *Heparin 5000 units SQ TID (Preferred with Epidurals) *Enoxaparin/Lovenox 40 mg SQ daily (WT < 150 kg, CrCl > 30 mL/min) *Enoxaparin/Lovenox 30 mg SQ daily (WT < 150 kg, CrCl > 10-29 mL/min) *Enoxaparin/Lovenox 30 mg SQ BID (WT < 150 kg, CrCl > 30 mL/min) AND *Sequential Compression Device (SCD) Assessment and Plan - Plan //Severe Sepsis on admission //Acute UTI with pyuria //Urinary retention //Metabolic encephalopathy -No meningeal signs. -Patient with leukocytosis of 17, temperature 100.4, lactate 2.3, gross pus in urineas described by ED physician, urinary retention =this is almost certainly 2/2 uti = We'll place on broad-spectrum antibiotics. Follow-up urine culture.[place] will be placed. Consult urology Infectious disease has been consulted due to patient's most recent admission with UTI sepsis //End-stage renal disease. Consult nephrology for dialysis. Appreciate assistance. //Chronic systolic heart failure //Atrial fibrillation. Rate controlled. Continue cardiac meds Holding anti-coagulation due to possible procedure. //Stage I/2 sacral ulcer. We'll consult wound care. //Diabetes mellitus. Insulin and diabetic diet //COPD. History of WERNER. Chronic. Continue home meds. //Hypothyroidism. Chronic. Continue home meds //GERD. Chronic. Continue home medication Discussed Condition With: patient, nurse, ED physician.
[2018-07-09] MEDS ORDERED: Clotrimazole 1% Cream 15 GM Tube TOPICAL SCH (21:00)
[2018-07-09] MEDS: Piperacil/Tazo 2.25 GM Premix 50 ML IV.SIG SCH ×2 (21:59→22:39)
[2018-07-09] MEDS: Tiotropium Bromide 18 MCG/ACT Inhaler INH SCH (22:39)
[2018-07-09] MEDS: Polyethylene Glycol 3350 17 GM Packet PO SCH (22:40)
[2018-07-09] MEDS: Amiodarone 200 MG Tablet PO SCH (22:40)
[2018-07-09] MEDS: Insulin NovoLOG Aspart Correctional Sugar Inj SQ SCH (22:40)
[2018-07-09] MEDS: Carboxymethylcellulose 0.5% Opth Drops 15 ML Bottle EACH EYE SCH (22:40)
[2018-07-09] MEDS: Insulin Detemir Inj 1,000 UNIT/10 ML Vial SQ SCH (22:40)
[2018-07-09] MEDS: Clotrimazole 1% Cream 15 GM Tube TOPICAL SCH (22:40)
[2018-07-10] MEDS: Piperacil/Tazo 2.25 GM Premix 50 ML IV.SIG SCH ×4 (06:30→23:25)
[2018-07-10] MEDS: Carboxymethylcellulose 0.5% Opth Drops 15 ML Bottle EACH EYE SCH ×4 (06:41→21:15)
[2018-07-10] MEDS: Levothyroxine 75 MCG Tablet PO SCH (06:42)
--- NOTE | 2018-07-10 08:36 | ECG ---
Date Performed: 07/09/2018 Time Performed: 13:01:56 PTAGE: 72 years EKG: Sinus rhythm Abnormal R wave progression concerning for lateral [place], age indeterminate Compared to previous tracin g significant baseline artifact possibly effecting interpretation. The patient now appears to be in s inus rhythm NORMAL ECG PREVIOUS TRACING : 06/05/2018 03.24 DOCTOR: Marilyn Armstrong Interpretating Date/Time 07/10/2018 08:34:51
[2018-07-10 09:25] LABS: Baso # (Auto) 0.1 th/mm3 (0.0-0.2); Baso % (Auto) 0.5 % (0.0-2.0); Eos # (Auto) 0.2 th/mm3 (0.0-0.4); Hematocrit 26.7 % (39.0-51.0); Hemoglobin 8.4 gm/dL (13.0-17.0); Lymph # (Auto) 1.8 th/mm3 (1.0-4.8); Lymph % (Auto) 10.2 % (9.0-44.0); Mean Corpuscular HGB Conc 31.6 % (32.0-36.0); Mean Corpuscular Hemoglobin 29.6 pg (27.0-34.0); Mean Corpuscular Volume 93.5 fL (80.0-100.0); Mean Platelet Volume 7.6 fL (7.0-11.0); Mono # (Auto) 1.6 th/mm3 (0.0-0.9); Neut # (Auto) 13.9 th/mm3 (1.8-7.7); Neut % (Auto) 79.3 % (16.0-70.0); Platelet Count 353 th/mm3 (150-450); Red Blood Count 2.85 mil/mm3 (4.50-5.90); Red Cell Distribution Width 15.4 % (11.6-17.2); White Blood Count 17.6 th/mm3 (4.0-11.0)
[2018-07-10 09:43] LABS: Albumin 1.8 g/dL (3.4-5.0); Anion Gap 13 meq/L (5-15); Aspartate Aminotransferase 57 U/L (15-37); Blood Urea Nitrogen 44 mg/dL (7-18); Calcium 8.1 mg/dL (8.5-10.1); Carbon Dioxide 22.9 meq/L (21.0-32.0); Chloride 105 meq/L (98-107); Glomerular Filtration Rate 8 mL/min (>89); Glucose,Random 71 mg/dL (74-106); Potassium 3.8 meq/L (3.5-5.1); Sodium 141 meq/L (136-145)
[2018-07-10 09:45] LABS: Alanine Aminotransferase 26 U/L (12-78)
[2018-07-10 09:47] LABS: Alkaline Phosphatase 167 U/L (45-117); Total Protein 5.9 g/dL (6.4-8.2)
[2018-07-10 10:04] LABS: Eosinophils 1 % (0-4); Lymphocytes 14 % (9-44); Monocytes 7 % (0-8); Myelocytes 1 % (0-0); Promyelocyte 1 % (0-0); Toxic Granulation 1+
[2018-07-10 10:05] LABS: Ovalocytes 1+; Platelet Estimate Normal (Normal); Platelet Morphology Normal (Normal)
[2018-07-10] MEDS: Amiodarone 200 MG Tablet PO SCH ×2 (10:37→20:44)
[2018-07-10] MEDS: Tiotropium Bromide 18 MCG/ACT Inhaler INH SCH (10:38)
[2018-07-10] MEDS: Pantoprazole Sodium 20 MG DR Tablet PO SCH (10:38)
[2018-07-10] MEDS: Polyethylene Glycol 3350 17 GM Packet PO SCH ×2 (10:38→20:44)
[2018-07-10] MEDS: Clotrimazole 1% Cream 15 GM Tube TOPICAL SCH ×2 (10:38→20:47)
[2018-07-10] MEDS: Insulin Detemir Inj 1,000 UNIT/10 ML Vial SQ SCH ×2 (10:39→21:15)
[2018-07-10] MEDS: Insulin NovoLOG Aspart Correctional Sugar Inj SQ SCH ×4 (10:40→21:16)
[2018-07-10] MEDS ORDERED: Morphine Inj 4 MG/ML Vial IV.PUSH PRN (10:41)
[2018-07-10] MEDS ORDERED: Naloxone Inj 0.4 MG/ML Vial IV.PUSH PRN (10:41)
[2018-07-10] MEDS ORDERED: Acetaminophen 325 MG Tablet PO PRN (10:41)
[2018-07-10] MEDS ORDERED: Morphine Sulfate Inj 2 MG/ML Vial IV.PUSH PRN (10:41)
[2018-07-10] MEDS ORDERED: Vancomycin Inj 1 GM/200 ML PIGGYBACK IV.SIG PRN (11:06)
[2018-07-10] MEDS: oxyCODONE/Acetaminophen 10/325 Tablet PO PRN ×2 (11:11→20:43)
--- NOTE | 2018-07-10 12:22 | P.PNNP ---
Subjective Interval history: patient is more alert today. He will have removal of PermCath and placement of Vascath today. Dialysis later. He appears dehydrated clinically. Physical Exam Vital signs: Vital Signs 07/09/18 13:00 07/09/18 15:00 07/09/18 16:35 Temperature 99.0 F 99.0 F 98.6 F Pulse Rate 79 72 76 Respiratory Rate 20 18 18 Blood Pressure 102/60 98/60 L 101/59 L Pulse Oximetry 97 97 97 07/09/18 17:45 07/09/18 20:00 07/10/18 00:00 Temperature 98.6 F 97.2 F L 97.8 F Pulse Rate 78 66 63 Respiratory Rate 20 15 17 Blood Pressure 102/69 102/49 L 131/76 Pulse Oximetry 97 97 95 07/10/18 04:00 07/10/18 08:00 Temperature 97.7 F 97.5 F L Pulse Rate 65 63 Respiratory Rate 16 14 Blood Pressure 104/51 L 102/49 L Pulse Oximetry 99 100 Intake & Output 07/09/18 07/10/18 07/10/18 18:59 06:59 18:59 Intake Total 312.5 / 312.5 50 / 50 50 / 50 Output Total 200 / 200 500 / 500 Balance 112.5 / 112.5 -450 / -450 50 / 50 Weight 104.326 kg 104 kg Intake: IV 312.5 / 312.5 50 / 50 50 / 50 Zosyn 2.25 GM Premix 50 ML @ 50 / 50 50 / 50 100 mls/hr IV.SIG Q6H [place] Rx#: [id number] Zosyn 3.375 GM Premix 50 ML @ 50 / 50 100 mls/hr IV.SIG ONCE ONE Rx#: [id number] Vancomycin Inj 1,250 MG In NS 262.5 / 262.5 Inj 250 ML @ 250 mls/hr IV.SIG ONCE ONE Rx#:[id number] Output: Urine Amount (Catheter) 200 / 200 500 / 500 Indwelling Urethral Catheter 200 / 200 500 / 500 - Constitutional no acute distress - Routine HEENT Exam Head: Present: normocephalic, atraumatic Eye: Present: EOMI, PERRL - Routine Neck Exam Present: supple. Absent: JVD - Routine Respiratory Exam Present: CTA bilaterally - Routine Cardiovascular Exam Present: RRR, S1, S2 - Routine Abdominal Exam Present: soft, normoactive bowel sounds - Routine Skin Exam Comments: skin appears dry, there is loss of skin turgor. - Routine Neurological Exam Present: alert - Urinary Catheter Management Indwelling Urethral Catheter Cath placed during this visit: yes Reason for continuing: Acute urinary retention Insertion date: 07/09/18 Insertion time: 17:30 Assessment and Plan - Assessment (1) ESRD (end stage renal disease) on dialysis Code(s): N18.6 - End stage renal disease; Z99.2 - Dependence on renal dialysis Status: Acute Plan: Last dialysis was on Monday, there were catheter related problems. Dialysis today after PermCath removal and placement of VasCath. (2) Sepsis Code(s): A41.9 - Sepsis, unspecified organism Status: Acute Plan: Could be dialysis catheter related sepsis, septic shock. He has been given Vancomycin, also on Zosyn. I will consult IR for removal of PermCath and placement of Vascath. Vancomycin to be continued with each dialysis. Await blood culture results. (3) Anemia of renal disease Code(s): D63.1 - Anemia in chronic kidney disease Status: Acute Plan: Epogen with dialysis. (4) Atrial fibrillation Code(s): I48.91 - Unspecified atrial fibrillation Status: Acute Plan: Monitor heart rate. Monitor on telemetry
--- NOTE | 2018-07-10 12:42 | MB ---
cc: Pavel Perry MD DATE: 07/10/2018 DATE OF CONSULTATION: 07/10/2018. REQUESTING PHYSICIAN: Dr. Tirado. REASON: Sepsis. HISTORY OF PRESENT ILLNESS: This is a 72-year-old white male who is a group home resident. The patient has multiple medical problems. He presented to the emergency department on 07/09/2018 with fever. He was recently treated in this hospital for sepsis and transferred back to the group home facility. He reportedly also had hypotension. He was extremely lethargic also yesterday. This morning, the patient is somnolent, but he arouses easily. In the ED, his blood pressure was 110/59, temperature 100.4 and the white count was elevated at 17.7. Lactic acid level was 2.1. The patient has end-stage renal disease and undergoes hemodialysis. He has a Perm-A-Cath in the right chest. Blood cultures were taken on admission and the results are pending. Urinalysis revealed multiple white blood cells. Urine culture is pending. The patient was started on IV antibiotics. This consultation is requested for infectious disease management of sepsis. PAST MEDICAL HISTORY: Hypertension, diabetes mellitus, dementia, chronic kidney disease stage IV the patient receiving hemodialysis, benign prostatic hypertrophy, COPD, coronary artery disease, hyperlipidemia, hypothyroidism, history of non-ST elevated myocardial infarction, posttraumatic stress disorder, sleep apnea, history of coronary stent, history of TURP, history of nephrostomy. ALLERGIES: CELECOXIB, CIPROFLOXACIN, GADOBENIC ACID, DIATRIZOATE MEGLUMINE. MEDICATIONS: 1. Piperacillin/tazobactam. 2. Vancomycin. 3. Protonix. 4. Synthroid. 5. Lactulose. 6. Levemir insulin. 7. Coreg. 8. Lipitor. 9. Aspirin. 10. Cordarone. 11. Spiriva. 12. Renvela. SOCIAL HISTORY: [facility] resident. No tobacco use. No alcohol use. No illicit drugs. FAMILY HISTORY: Unable to obtain. REVIEW OF SYSTEMS: Difficult to obtain because the patient is somewhat somnolent. PHYSICAL EXAMINATION: GENERAL: This is a well-developed male who is in no acute distress. He is somnolent. He arouses without difficulty, but drifts back to sleep. VITAL SIGNS: Temperature 97.5, BP 102/49, respirations 14, heart rate 63. HEENT: Head is atraumatic. Extraocular muscles grossly intact. Pupils reactive to light. No icterus. Oropharynx dry mucosa. No visible lesions. NECK: Supple. No adenopathy. LUNGS: Decreased breath sounds bilaterally. HEART: Regular S1, S2. Heart sounds are distant. No murmurs heard. ABDOMEN: Bowel sounds present. Soft, no tenderness appreciated. RECTAL: Not performed. BUTTOCK: Dry excoriated ulcerated lesion with erythema at both buttocks. No visible drainage. GENITOURINARY: Normal-appearing genitalia. EXTREMITIES: No clubbing, cyanosis or edema. Superficial pressure ulceration at the left heel; stage I. SKIN: No rash. NEUROLOGIC: Difficult to examine; the patient is somnolent. PSYCHIATRIC: Unable to assess. LABORATORY DATA: WBC 17.6, platelet count 353, 79% neutrophils, 9% monocytes, 10% lymphocytes; creatinine 6.94, BUN 44, estimated GFR 8. Sodium 141. AST 57, ALT 26. IMPRESSION: Sepsis, likely arising from urinary tract infection versus a dialysis catheter infection. RECOMMENDATIONS: 1. Continue piperacillin/tazobactam. 2. Continue vancomycin given at dialysis. 3. Follow urine culture. 4. Follow blood culture. 5. Monitor response to the antibiotic treatment with adjustment of antibiotics once culture data becomes available. Thank you for this consultation. I will monitor the patient's progress and will make further recommendations upon followup. MD [place] Sher/sarahi/dora , 10:20 AM , 10:31 AM
[2018-07-10] MEDS ORDERED: *Heparin 10,000 UNITS/10 ML Vial Periprocedural ONLY ONE (14:27)
--- NOTE | 2018-07-10 14:28 | P.PNIM ---
Subjective Interval history: 72-year-old male with a history of end-stage renal disease, CVA, dementia, chronic systolic heart failure, diabetes, recent admission last month discharged on June 20 after being treated for septic shock secondary to UTI. Patient presents today having been found to have a fever in clinic and has been sent in. Patient is arousable to verbal stimulation, says he has not been feeling well, and indicates that his stomach is painful in the suprapubic region. He denies any chest pain. Denies shortness of breath. He is oriented to person and place, not to year. 07-10 PATIENT IS LESS CONFUSED DW RN AND PATIENT AND CM TO HAVE HD LATER TODAY SEEN BY ID AND NEPHROLOGY TO HAVE HD CATHETER EXCHANGED AND VANCO WITH HD Physical Exam Vital signs: Vital Signs 07/09/18 15:00 07/09/18 16:35 07/09/18 17:45 Temperature 99.0 F 98.6 F 98.6 F Pulse Rate 72 76 78 Respiratory Rate 18 18 20 Blood Pressure 98/60 L 101/59 L 102/69 Pulse Oximetry 97 97 97 07/09/18 20:00 07/10/18 00:00 07/10/18 04:00 Temperature 97.2 F L 97.8 F 97.7 F Pulse Rate 66 63 65 Respiratory Rate 15 17 16 Blood Pressure 102/49 L 131/76 104/51 L Pulse Oximetry 97 95 99 07/10/18 08:00 07/10/18 12:00 Temperature 97.5 F L 97.6 F Pulse Rate 63 60 Respiratory Rate 14 16 Blood Pressure 102/49 L 109/53 L Pulse Oximetry 100 98 Intake & Output 07/09/18 07/10/18 07/10/18 18:59 06:59 18:59 Intake Total 312.5 / 312.5 50 / 50 50 / 50 Output Total 200 / 200 500 / 500 Balance 112.5 / 112.5 -450 / -450 50 / 50 Weight 104.326 kg 104 kg Intake: IV 312.5 / 312.5 50 / 50 50 / 50 Zosyn 2.25 GM Premix 50 ML @ 50 / 50 50 / 50 100 mls/hr IV.SIG Q6H WILFREDO Rx#: [id number] Zosyn 3.375 GM Premix 50 ML @ 50 / 50 100 mls/hr IV.SIG ONCE ONE Rx#: [id number] Vancomycin Inj 1,250 MG In NS 262.5 / 262.5 Inj 250 ML @ 250 mls/hr IV.SIG ONCE ONE Rx#:[id number] Output: Urine Amount (Catheter) 200 / 200 500 / 500 Indwelling Urethral Catheter 200 / 200 500 / 500 Narrative: GENERAL: patient lying in bed. awake, confused. Alert and oriented 2 SKIN: Warm and dry. HEAD: Atraumatic. Normocephalic. EYES: Pupils equal and round. No scleral icterus. No injection or drainage. ENT: No nasal bleeding or discharge. Mucous membranes pink and moist. NECK: Trachea midline. No JVD. CARDIOVASCULAR: Regular rate and rhythm. RESPIRATORY: No accessory muscle use. Clear to auscultation. Breath sounds equal bilaterally. GASTROINTESTINAL: Abdomen soft,. Distended bladder. Direct ultrasoundvisualization along with the ER physician, patient found to have about 500 mL and bladder. Hepatic and splenic margins not palpable. MUSCULOSKELETAL: Extremities without clubbing, cyanosis, or edema. No obvious deformities. LEFT UE MOVES WELL - RIGHT UE DOES NOT MOVE WELL NEUROLOGICAL: No obvious cranial nerve deficits. Motor grossly within normal limits. Five out of 5 muscle strength in the LEFT ARM AND 3 OUT OF FIVE ON RIGHT ARM-WITH DECREASED ABILITY TO MOVE RIGHT HAND arms and legs. slow speech. PSYCHIATRIC: Appropriate mood and affect; insight and judgment normal. - Urinary Catheter Management Indwelling Urethral Catheter Cath placed during this visit: yes Reason for continuing: Acute urinary retention Insertion date: 07/09/18 Insertion time: 17:30 Results - Labs CBC & Chem 7: 07/10/18 07:15 07/10/18 07:15 Laboratory Results - last 24 hr 07/09/18 07/09/18 07/09/18 15:00 15:10 19:19 WBC RBC Hgb Hct MCV MCH MCHC RDW Plt Count MPV Prelim Diff (Auto) Neut % (Auto) Lymph % (Auto) [place] % (Auto) Eos % (Auto) Baso % (Auto) Neut # (Auto) Lymph # (Auto) [place] # (Auto) Eos # (Auto) Baso # (Auto) WBC Differential Seg Neuts % (Manual) Band Neuts % (Manual) Lymphocytes % (Manual) Monocytes % (Manual) Eosinophils % (Manual) Myelocytes % (Man) Promyelocytes % (Man) Abs Neuts (Manual) Differential Comment Toxic Granulation Platelet Estimate Platelet Morphology Ovalocytes Sodium Potassium Chloride Carbon Dioxide Anion Gap BUN Creatinine Estimated GFR POC Glucose 154 H Random Glucose Lactic Acid 1.6 Calcium Total Bilirubin AST ALT Alkaline Phosphatase Total Protein Albumin Urine Color Yellow Urine Clarity Turbid H Urine pH 5.0 Ur Specific Pollock 1.016 Urine Protein 100 H Urine Glucose (UA) 50 Urine Ketones Trace H Urine Occult Blood Moderate H Urine Nitrate Negative Urine Bilirubin Negative Urine Urobilinogen Less than 2 Ur Leukocyte Esterase Large H Urine RBC 30 H Urine WBC Urine Bacteria Many H Micro UA Comment Cath-culture ind Ur Microscopic Review Not Reportable Urine Culture Comments Cath-cult indicated 07/10/18 07/10/18 07/10/18 07:15 07:15 08:17 WBC 17.6 H RBC 2.85 L Hgb 8.4 L Hct 26.7 L MCV 93.5 MCH 29.6 MCHC 31.6 L RDW 15.4 Plt Count 353 MPV 7.6 Prelim Diff (Auto) Slide review pending Neut % (Auto) 79.3 H Lymph % (Auto) 10.2 Kenton % (Auto) 9.0 H Eos % (Auto) 1.0 Baso % (Auto) 0.5 Neut # (Auto) 13.9 H Lymph # (Auto) 1.8 Kenton # (Auto) 1.6 H Eos # (Auto) 0.2 Baso # (Auto) 0.1 WBC Differential Manual diff final Seg Neuts % (Manual) 72 H Band Neuts % (Manual) 4 Lymphocytes % (Manual) 14 Monocytes % (Manual) 7 Eosinophils % (Manual) 1 Myelocytes % (Man) 1 H Promyelocytes % (Man) 1 H Abs Neuts (Manual) 13.7 H Differential Comment . Toxic Granulation 1+ H Platelet Estimate Normal Platelet Morphology Normal Ovalocytes 1+ H Sodium 141 Potassium 3.8 Chloride 105 Carbon Dioxide 22.9 Anion Gap 13 BUN 44 H Creatinine 6.94 H Estimated GFR 8 L POC Glucose 92 Random Glucose 71 L Lactic Acid Calcium 8.1 L Total Bilirubin 0.3 AST 57 H ALT 26 Alkaline Phosphatase 167 H Total Protein 5.9 L Albumin 1.8 L Urine Color Urine Clarity Urine pH Ur Specific Pollock Urine Protein Urine Glucose (UA) Urine Ketones Urine Occult Blood Urine Nitrate Urine Bilirubin Urine Urobilinogen Ur Leukocyte Esterase Urine RBC Urine WBC Urine Bacteria Micro UA Comment Ur Microscopic Review Urine Culture Comments 07/10/18 11:34 WBC RBC Hgb Hct MCV MCH MCHC RDW Plt Count MPV Prelim Diff (Auto) Neut % (Auto) Lymph % (Auto) Kenton % (Auto) Eos % (Auto) Baso % (Auto) Neut # (Auto) Lymph # (Auto) [place]on # (Auto) Eos # (Auto) Baso # (Auto) WBC Differential Seg Neuts % (Manual) Band Neuts % (Manual) Lymphocytes % (Manual) Monocytes % (Manual) Eosinophils % (Manual) Myelocytes % (Man) Promyelocytes % (Man) Abs Neuts (Manual) Differential Comment Toxic Granulation Platelet Estimate Platelet Morphology Ovalocytes Sodium Potassium Chloride Carbon Dioxide Anion Gap BUN Creatinine Estimated GFR POC Glucose 99 Random Glucose Lactic Acid Calcium Total Bilirubin AST ALT Alkaline Phosphatase Total Protein Albumin Urine Color Urine Clarity Urine pH Ur Specific Pollock Urine Protein Urine Glucose (UA) Urine Ketones Urine Occult Blood Urine Nitrate Urine Bilirubin Urine Urobilinogen Ur Leukocyte Esterase Urine RBC Urine WBC Urine Bacteria Micro UA Comment Ur Microscopic Review Urine Culture Comments Microbiology 07/09/18 15:00 Catheterized Urine Urine Culture - Preliminary gram negative rods 07/09/18 12:05 Blood - Peripheral Aerobic Blood Culture - Preliminary No growth in 1 day 07/09/18 12:05 Blood - Peripheral Anaerobic Blood Culture - Preliminary No growth in 1 day 07/09/18 11:55 Blood - Peripheral Aerobic Blood Culture - Preliminary No growth in 1 day 07/09/18 11:55 Blood - Peripheral Anaerobic Blood Culture - Preliminary No growth in 1 day 07/09/18 14:25 Nasal Wash Influenza Types A,B Antigen - Final Negative for FLU A and B antigen Infection due to influenza A or B cannot be ruled out since the antigen present in the sample may be below the detection limit of the test. - Imaging Chest X-Ray 07/09/18 11:59 CONCLUSION: Dialysis catheter in good position. The lungs are clear. - Procedures NONE Assessment and Plan - Plan Severe Sepsis on admission Acute UTI with pyuria Urinary retention Metabolic encephalopathy -No meningeal signs. -Patient with leukocytosis of 17, temperature 100.4, lactate 2.3, gross pus in urine as described by ED physician, urinary retention =this is almost certainly 2/2 uti = We'll place on broad-spectrum antibiotics. Follow-up urine culture.Mansfield will be placed. Consult urology Infectious disease has been consulted due to patient's most recent admission with UTI sepsis End-stage renal disease. Consult nephrology for dialysis. Appreciate assistance. Chronic systolic heart failure Atrial fibrillation. Rate controlled. Continue cardiac meds Holding anti-coagulation due to possible procedure. Stage I/2 sacral ulcer. We'll consult wound care. Diabetes mellitus. Insulin and diabetic diet COPD. History of WERNER. Chronic. Continue home meds. Hypothyroidism. Chronic. Continue home meds GERD. Chronic. Continue home medication SEEN BY ID AND NEPHROLOGY WILL NEED NEW HD LINE Code Status: FULL CODE Discussed Condition With: RN AND PT AND CM Discharge Planning: PENDING ID AND NEPHROLOGY CLEARANCE
[2018-07-10] MEDS: Heparin 10,000 UNITS/10 ML Vial (for IV use) OTHER PRN (15:47)
[2018-07-10] MEDS: Vancomycin Inj 1,000 MG in Sodium Chlor 0.9% Inj 250 ML IV.SIG SCH (15:47)
[2018-07-10] MEDS ORDERED: Heparin Central Flush 100 UNIT/ML 5 ML Vial IV.FLUSH PRN (16:01)
--- NOTE | 2018-07-10 16:20 | IR ---
EXAM DATE: 07/10/2018 3:28 PM EDT AGE/SEX: 72 years / Male INDICATIONS: Patient with a history of renal disease, needs a new dialysis catheter. CLINICAL DATA: This is the patient's subsequent encounter. Patient reports that signs and symptoms h ave been present for 2 months and indicates a pain score of 7/10. MEDICAL/SURGICAL HISTORY: . Chronic kidney diseaseHTNBPHDiabetesSleep apneaPTSDCOPDAFIBDementia . Liver biopsyTURPCoronary artery stent COMPARISON: No prior exams available for comparison. FLUORO TIME (min): 0.2 IMAGE SERIES: 1 ACCESS SITE: Right internal jugular vein SEDATION TIME (min): 0 DEVICE(S): 14 Setswana double lumen 15cm Schon catheter . . PROCEDURE : 1. Ultrasound guided venipuncture. 2. Fluoroscopic guidance. 3. Central line placement. The risks, benefits and alternatives to the procedure were explained and verbal and written consent w as obtained. The site was prepped in sterile fashion. Full sterile technique was used, including ca p, mask, sterile gloves and gown and a large sterile sheet. Hand hygiene and 2% chlorhexidine prep w as utilized per protocol for cutaneous antisepsis with appropriate dry time for site. Sterile gel an d sterile probe cover were utilized for ultrasound guidance. The skin and subcutaneous tissues were infiltrated with local anesthetic solution. A suitable site a derek the vein was selected with ultrasound and fluoroscopic guidance. A small incision was made. Th e vein was accessed under direct ultrasound visualization using the micropuncture technique. The loly ropuncture set was exchanged for a 0.035 wire. The tract was dilated. The catheter was advanced int o position under direct fluoroscopic visualization, and was advanced with the tip at the junction of the superior vena cava and rt atrium. The catheter was fixed in place with suture and a sterile dres sing was applied. The patient tolerated the procedure well and there were no complications. CONCLUSION: 1. Uncomplicated line placement as above. Electronically signed by: Arcadio Chaves MD 07/10/2018 4:18 PM EDT
[2018-07-11] MEDS: oxyCODONE/Acetaminophen 10/325 Tablet PO PRN ×2 (02:31→21:16)
[2018-07-11] MEDS: Carboxymethylcellulose 0.5% Opth Drops 15 ML Bottle EACH EYE SCH ×4 (04:18→21:19)
[2018-07-11] MEDS: Piperacil/Tazo 2.25 GM Premix 50 ML IV.SIG SCH ×4 (05:42→23:12)
[2018-07-11 05:52] LABS: Baso # (Auto) 0.1 th/mm3 (0.0-0.2); Baso % (Auto) 0.7 % (0.0-2.0); Eos # (Auto) 0.3 th/mm3 (0.0-0.4); Eos % (Auto) 2.5 % (0.0-4.0); Hematocrit 24.6 % (39.0-51.0); Hemoglobin 7.7 gm/dL (13.0-17.0); Lymph # (Auto) 1.7 th/mm3 (1.0-4.8); Lymph % (Auto) 13.2 % (9.0-44.0); Mean Corpuscular HGB Conc 31.2 % (32.0-36.0); Mean Corpuscular Hemoglobin 29.1 pg (27.0-34.0); Mean Corpuscular Volume 93.4 fL (80.0-100.0); Mean Platelet Volume 7.4 fL (7.0-11.0); Mono # (Auto) 1.6 th/mm3 (0.0-0.9); Mono % (Auto) 12.9 % (0.0-8.0); Neut # (Auto) 8.9 th/mm3 (1.8-7.7); Neut % (Auto) 70.7 % (16.0-70.0); Platelet Count 325 th/mm3 (150-450); Red Blood Count 2.64 mil/mm3 (4.50-5.90); Red Cell Distribution Width 15.3 % (11.6-17.2); White Blood Count 12.5 th/mm3 (4.0-11.0)
[2018-07-11] MEDS: Levothyroxine 75 MCG Tablet PO SCH (06:18)
[2018-07-11 06:29] LABS: Alanine Aminotransferase 29 U/L (12-78); Albumin 1.6 g/dL (3.4-5.0); Alkaline Phosphatase 176 U/L (45-117); Anion Gap 5 meq/L (5-15); Aspartate Aminotransferase 58 U/L (15-37); Blood Urea Nitrogen 23 mg/dL (7-18); Calcium 7.5 mg/dL (8.5-10.1); Carbon Dioxide 34.2 meq/L (21.0-32.0); Chloride 103 meq/L (98-107); Free T4 (Free Thyroxine) 0.98 ng/dL (0.76-1.46); Glomerular Filtration Rate 13 mL/min (>89); Magnesium 1.8 mg/dL (1.5-2.5); Phosphorus 2.6 mg/dL (2.5-4.9); Potassium 3.3 meq/L (3.5-5.1); Sodium 142 meq/L (136-145); Total Protein 5.2 g/dL (6.4-8.2); Vancomycin,Random 17.9 Comment
[2018-07-11 06:34] LABS: Glucose,Random 44 mg/dL (74-106)
[2018-07-11] MEDS: Dextrose 50% in Water 50 ML Vial IV.PUSH PRN ×2 (07:39→17:08)
[2018-07-11] MEDS: Insulin NovoLOG Aspart Correctional Sugar Inj SQ SCH ×4 (07:52→21:25)
[2018-07-11 07:54] LABS: Eosinophils 4 % (0-4); Lymphocytes 18 % (9-44); Metamyelocytes 1 % (0-1); Monocytes 7 % (0-8); Myelocytes 2 % (0-0); Ovalocytes 1+; Platelet Estimate Normal (Normal); Platelet Morphology Clumped (Normal); Promyelocyte 1 % (0-0); Toxic Granulation 1+
[2018-07-11] MEDS: Amiodarone 200 MG Tablet PO SCH ×2 (08:54→21:16)
[2018-07-11] MEDS: Heparin Central Flush 100 UNIT/ML 5 ML Vial IV.FLUSH SCH (08:55)
[2018-07-11] MEDS: Polyethylene Glycol 3350 17 GM Packet PO SCH ×2 (08:55→21:19)
[2018-07-11] MEDS: Insulin Detemir Inj 1,000 UNIT/10 ML Vial SQ SCH (08:57)
[2018-07-11] MEDS: Tiotropium Bromide 18 MCG/ACT Inhaler INH SCH (08:59)
[2018-07-11] MEDS: Clotrimazole 1% Cream 15 GM Tube TOPICAL SCH ×2 (09:01→21:19)
[2018-07-11] MEDS: Pantoprazole Sodium 20 MG DR Tablet PO SCH (09:05)
--- NOTE | 2018-07-11 10:53 | P.PNNP ---
Subjective Interval history: Had dialysis yesterday. Had removal of PermCath and insertion of Vascath. Urine culture is growing Gram negative rods. Physical Exam Vital signs: Vital Signs 07/10/18 12:00 07/10/18 20:00 07/11/18 00:00 Temperature 97.6 F 98.0 F 98.2 F Pulse Rate 60 73 60 Respiratory Rate 16 18 Blood Pressure 109/53 L 100/50 L 103/54 L Pulse Oximetry 98 99 07/11/18 04:08 07/11/18 08:00 07/11/18 10:20 Temperature 97.4 F L 97.8 F Pulse Rate 86 85 Respiratory Rate 18 16 Blood Pressure 122/57 L 82/47 L Pulse Oximetry 94 L 87 L 95 Intake & Output 07/10/18 07/11/18 07/11/18 18:59 06:59 18:59 Intake Total 350 / 350 150 / 150 Output Total 1000 / 1000 250 / 250 Balance -650 / -650 -100 / -100 Weight 103 kg Intake: IV 350 / 350 150 / 150 Zosyn 2.25 GM Premix 50 ML @ 100 / 100 150 / 150 100 mls/hr IV.SIG Q6H [facility] Rx#: [id number] Vancomycin Inj 1,000 MG In NS 250 / 250 Inj 250 ML @ 250 mls/hr IV.SIG WITH DIALYSIS [facility]FREDO Rx#:[id number] Output: Urine 250 / 250 Hemodialysis Amount 1000 / 1000 Other: # Voids 3 Narrative: GENERAL: patient lying in bed. awake, confused. Alert and oriented 2 SKIN: Warm and dry. HEAD: Atraumatic. Normocephalic. EYES: Pupils equal and round. No scleral icterus. No injection or drainage. ENT: No nasal bleeding or discharge. Mucous membranes pink and moist. NECK: Trachea midline. No JVD. CARDIOVASCULAR: Regular rate and rhythm. RESPIRATORY: No accessory muscle use. Clear to auscultation. Breath sounds equal bilaterally. GASTROINTESTINAL: Abdomen soft,. Distended bladder. Direct ultrasoundvisualization along with the ER physician, patient found to have about 500 mL and bladder. Hepatic and splenic margins not palpable. MUSCULOSKELETAL: Extremities without clubbing, cyanosis, or edema. No obvious deformities. LEFT UE MOVES WELL - RIGHT UE DOES NOT MOVE WELL NEUROLOGICAL: No obvious cranial nerve deficits. Motor grossly within normal limits. Five out of 5 muscle strength in the LEFT ARM AND 3 OUT OF FIVE ON RIGHT ARM-WITH DECREASED ABILITY TO MOVE RIGHT HAND arms and legs. slow speech. PSYCHIATRIC: Appropriate mood and affect; insight and judgment normal. - Constitutional no acute distress - Routine HEENT Exam Head: Present: normocephalic, atraumatic Eye: Present: EOMI, PERRL - Routine Neck Exam Present: supple - Routine Respiratory Exam Present: CTA bilaterally - Routine Cardiovascular Exam Present: RRR, S1, S2 - Routine Abdominal Exam Present: soft, normoactive bowel sounds - Routine Skin Exam Present: intact - Routine Neurological Exam Present: alert confusion and disorientation - Urinary Catheter Management Indwelling Urethral Catheter Cath placed during this visit: yes Reason for continuing: Acute urinary retention Insertion date: 07/09/18 Insertion time: 17:30 Assessment and Plan - Assessment (1) ESRD (end stage renal disease) on dialysis Code(s): N18.6 - End stage renal disease; Z99.2 - Dependence on renal dialysis Status: Acute Plan: Dialysis will be TTS. Monitor fluid and electrolytes. Since urine culture is growing Gram negative rods, have Mans[place] removed, give him a trial of voiding. (2) Sepsis Code(s): A41.9 - Sepsis, unspecified organism Status: Acute Plan: Could be dialysis catheter related sepsis, septic shock. Also could be UTI. He has been given Vancomycin, also on Zosyn. PermCath removed. Await blood cultures. If negative, he needs PermCath. Vancomycin to be continued with each dialysis. . (3) Anemia of renal disease Code(s): D63.1 - Anemia in chronic kidney disease Status: Acute Plan: Epogen with dialysis. (4) Atrial fibrillation Code(s): I48.91 - Unspecified atrial fibrillation Status: Acute Plan: Monitor heart rate. Monitor on telemetry
--- NOTE | 2018-07-11 11:50 | P.PNIM ---
Subjective Interval history: 72-year-old male with a history of end-stage renal disease, CVA, dementia, chronic systolic heart failure, diabetes, recent admission last month discharged on June 20 after being treated for septic shock secondary to UTI. Patient presents today having been found to have a fever in clinic and has been sent in. Patient is arousable to verbal stimulation, says he has not been feeling well, and indicates that his stomach is painful in the suprapubic region. He denies any chest pain. Denies shortness of breath. He is oriented to person and place, not to year. 07-10 PATIENT IS LESS CONFUSED DW RN AND PATIENT AND CM TO HAVE HD LATER TODAY SEEN BY ID AND NEPHROLOGY TO HAVE HD CATHETER EXCHANGED AND VANCO WITH HD 07-11 HAD HYPOGLYCEMIA EARLIER TODAY HAD PERMACATH EXCHANGED FOR VASCATH YESTERDAY 07-10 WILL NEED HD ON //MONDAY CANNOT DC WITH VASCATH- HIS PERMACATH WAS INFECTED AND HAD TO BE DISCONTINUED DW RN AND PT AND CM Physical Exam Vital signs: Vital Signs 07/10/18 12:00 07/10/18 20:00 07/11/18 00:00 Temperature 97.6 F 98.0 F 98.2 F Pulse Rate 60 73 60 Respiratory Rate 16 18 Blood Pressure 109/53 L 100/50 L 103/54 L Pulse Oximetry 98 99 07/11/18 04:08 07/11/18 08:00 07/11/18 10:20 Temperature 97.4 F L 97.8 F Pulse Rate 86 85 Respiratory Rate 18 16 Blood Pressure 122/57 L 82/47 L Pulse Oximetry 94 L 87 L 95 Intake & Output 07/10/18 07/11/18 07/11/18 18:59 06:59 18:59 Intake Total 350 / 350 150 / 150 Output Total 1000 / 1000 250 / 250 Balance -650 / -650 -100 / -100 Weight 103 kg Intake: IV 350 / 350 150 / 150 Zosyn 2.25 GM Premix 50 ML @ 100 / 100 150 / 150 100 mls/hr IV.SIG Q6H WILFREDO Rx#: [id number] Vancomycin Inj 1,000 MG In NS 250 / 250 Inj 250 ML @ 250 mls/hr IV.SIG WITH DIALYSIS WILFREDO Rx#:[id number] Output: Urine 250 / 250 Hemodialysis Amount 1000 / 1000 Other: # Voids 3 Narrative: GENERAL: patient lying in bed. awake, confused. Alert and oriented 2 SKIN: Warm and dry. HEAD: Atraumatic. Normocephalic. EYES: Pupils equal and round. No scleral icterus. No injection or drainage. ENT: No nasal bleeding or discharge. Mucous membranes pink and moist. NECK: Trachea midline. No JVD. CARDIOVASCULAR: Regular rate and rhythm. RESPIRATORY: No accessory muscle use. Clear to auscultation. Breath sounds equal bilaterally. GASTROINTESTINAL: Abdomen soft,. Distended bladder. Direct ultrasoundvisualization along with the ER physician, patient found to have about 500 mL and bladder. Hepatic and splenic margins not palpable. MUSCULOSKELETAL: Extremities without clubbing, cyanosis, or edema. No obvious deformities. LEFT UE MOVES WELL - RIGHT UE DOES NOT MOVE WELL NEUROLOGICAL: No obvious cranial nerve deficits. Motor grossly within normal limits. Five out of 5 muscle strength in the LEFT ARM AND 3 OUT OF FIVE ON RIGHT ARM-WITH DECREASED ABILITY TO MOVE RIGHT HAND arms and legs. slow speech. PSYCHIATRIC: Appropriate mood and affect; insight and judgment normal. - Urinary Catheter Management Indwelling Urethral Catheter Cath placed during this visit: yes Reason for continuing: Acute urinary retention Insertion date: 07/09/18 Insertion time: 17:30 Results - Labs CBC & Chem 7: 07/11/18 05:29 07/11/18 05:29 Laboratory Results - last 24 hr 07/09/18 07/10/18 07/10/18 15:00 11:34 17:45 WBC RBC Hgb Hct MCV MCH MCHC RDW Plt Count MPV Prelim Diff (Auto) Neut % (Auto) Lymph % (Auto) [place] % (Auto) Eos % (Auto) Baso % (Auto) Neut # (Auto) Lymph # (Auto) [place] # (Auto) Eos # (Auto) Baso # (Auto) WBC Differential Seg Neuts % (Manual) Band Neuts % (Manual) Lymphocytes % (Manual) Monocytes % (Manual) Eosinophils % (Manual) Metamyelocytes % (Man) Myelocytes % (Man) Promyelocytes % (Man) Abs Neuts (Manual) Differential Comment Toxic Granulation Platelet Estimate Platelet Morphology Ovalocytes Sodium Potassium Chloride Carbon Dioxide Anion Gap BUN Creatinine Estimated GFR POC Glucose 99 84 Random Glucose Calcium Phosphorus Magnesium Total Bilirubin AST ALT Alkaline Phosphatase Total Protein Albumin TSH Free T4 Urine Color Yellow Urine Clarity Turbid H Urine pH 5.0 Ur Specific [place] 1.016 Urine Protein 100 H Urine Glucose (UA) 50 Urine Ketones Trace H Urine Occult Blood Moderate H Urine Nitrate Negative Urine Bilirubin Negative Urine Urobilinogen Less than 2 Ur Leukocyte Esterase Large H Urine RBC 30 H Urine WBC Urine Bacteria Many H Micro UA Comment Cath-culture ind Urine Culture Comments Cath-cult indicated Random Vancomycin 07/10/18 07/11/18 07/11/18 21:06 05:29 05:29 WBC 12.5 H RBC 2.64 L Hgb 7.7 L Hct 24.6 L MCV 93.4 MCH 29.1 MCHC 31.2 L RDW 15.3 Plt Count 325 MPV 7.4 Prelim Diff (Auto) Slide review pending Neut % (Auto) 70.7 H Lymph % (Auto) 13.2 [place] % (Auto) 12.9 H Eos % (Auto) 2.5 Baso % (Auto) 0.7 Neut # (Auto) 8.9 H Lymph # (Auto) 1.7 [place] # (Auto) 1.6 H Eos # (Auto) 0.3 Baso # (Auto) 0.1 WBC Differential Manual diff final Seg Neuts % (Manual) 61 Band Neuts % (Manual) 6 Lymphocytes % (Manual) 18 Monocytes % (Manual) 7 Eosinophils % (Manual) 4 Metamyelocytes % (Man) 1 Myelocytes % (Man) 2 H Promyelocytes % (Man) 1 H Abs Neuts (Manual) 8.9 H Differential Comment . Toxic Granulation 1+ H Platelet Estimate Normal Platelet Morphology Clumped H Ovalocytes 1+ H Sodium 142 Potassium 3.3 L Chloride 103 Carbon Dioxide 34.2 H D Anion Gap 5 BUN 23 H Creatinine 4.55 H Estimated GFR 13 L POC Glucose 147 H Random Glucose 44 L* Calcium 7.5 L Phosphorus 2.6 Magnesium 1.8 Total Bilirubin 0.3 AST 58 H ALT 29 Alkaline Phosphatase 176 H Total Protein 5.2 L D Albumin 1.6 L TSH 24.100 H Free T4 0.98 Urine Color Urine Clarity Urine pH Ur Specific [place] Urine Protein Urine Glucose (UA) Urine Ketones Urine Occult Blood Urine Nitrate Urine Bilirubin Urine Urobilinogen Ur Leukocyte Esterase Urine RBC Urine WBC Urine Bacteria Micro UA Comment Urine Culture Comments Random Vancomycin 17.9 07/11/18 07/11/18 07/11/18 06:42 07:16 07:33 WBC RBC Hgb Hct MCV MCH MCHC RDW Plt Count MPV Prelim Diff (Auto) Neut % (Auto) Lymph % (Auto) [place] % (Auto) Eos % (Auto) Baso % (Auto) Neut # (Auto) Lymph # (Auto) [place] # (Auto) Eos # (Auto) Baso # (Auto) WBC Differential Seg Neuts % (Manual) Band Neuts % (Manual) Lymphocytes % (Manual) Monocytes % (Manual) Eosinophils % (Manual) Metamyelocytes % (Man) Myelocytes % (Man) Promyelocytes % (Man) Abs Neuts (Manual) Differential Comment Toxic Granulation Platelet Estimate Platelet Morphology Ovalocytes Sodium Potassium Chloride Carbon Dioxide Anion Gap BUN Creatinine Estimated GFR POC Glucose 50 L 66 L 65 L Random Glucose Calcium Phosphorus Magnesium Total Bilirubin AST ALT Alkaline Phosphatase Total Protein Albumin TSH Free T4 Urine Color Urine Clarity Urine pH Ur Specific [place] Urine Protein Urine Glucose (UA) Urine Ketones Urine Occult Blood Urine Nitrate Urine Bilirubin Urine Urobilinogen Ur Leukocyte Esterase Urine RBC Urine WBC Urine Bacteria Micro UA Comment Urine Culture Comments Random Vancomycin 07/11/18 08:07 WBC RBC Hgb Hct MCV MCH MCHC RDW Plt Count MPV Prelim Diff (Auto) Neut % (Auto) Lymph % (Auto) [place] % (Auto) Eos % (Auto) Baso % (Auto) Neut # (Auto) Lymph # (Auto) [place] # (Auto) Eos # (Auto) Baso # (Auto) WBC Differential Seg Neuts % (Manual) Band Neuts % (Manual) Lymphocytes % (Manual) Monocytes % (Manual) Eosinophils % (Manual) Metamyelocytes % (Man) Myelocytes % (Man) Promyelocytes % (Man) Abs Neuts (Manual) Differential Comment Toxic Granulation Platelet Estimate Platelet Morphology Ovalocytes Sodium Potassium Chloride Carbon Dioxide Anion Gap BUN Creatinine Estimated GFR POC Glucose 165 H Random Glucose Calcium Phosphorus Magnesium Total Bilirubin AST ALT Alkaline Phosphatase Total Protein Albumin TSH Free T4 Urine Color Urine Clarity Urine pH Ur Specific [place] Urine Protein Urine Glucose (UA) Urine Ketones Urine Occult Blood Urine Nitrate Urine Bilirubin Urine Urobilinogen Ur Leukocyte Esterase Urine RBC Urine WBC Urine Bacteria Micro UA Comment Urine Culture Comments Random Vancomycin Microbiology 07/09/18 12:05 Blood - Peripheral Aerobic Blood Culture - Preliminary No growth in 2 days 07/09/18 12:05 Blood - Peripheral Anaerobic Blood Culture - Preliminary No growth in 2 days 07/09/18 11:55 Blood - Peripheral Aerobic Blood Culture - Preliminary No growth in 2 days 07/09/18 11:55 Blood - Peripheral Anaerobic Blood Culture - Preliminary No growth in 2 days 07/09/18 15:00 Catheterized Urine Urine Culture - Preliminary gram negative rods - Imaging Impressions Catheter Placement 07/10/18 00:00 CONCLUSION: 1. Uncomplicated line placement as above. - Procedures NONE Assessment and Plan - Plan Severe Sepsis on admission Acute UTI with pyuria Urinary retention Metabolic encephalopathy -No meningeal signs. -Patient with leukocytosis of 17, temperature 100.4, lactate 2.3, gross pus in urine as described by ED physician, urinary retention =this is almost certainly 2/2 uti = We'll place on broad-spectrum antibiotics. Follow-up urine culture.Garcia will be placed. Consult urology Infectious disease has been consulted due to patient's most recent admission with UTI sepsis GARCIA IS OUT End-stage renal disease. Consult nephrology for dialysis. Appreciate assistance. HAD PERMACATH REMOVED AND VASCATH PLACED ON 07-10 WILL NEED PERMACATH PRIOR TO DISCHARGE Chronic systolic heart failure Atrial fibrillation. Rate controlled. Continue cardiac meds Holding anti-coagulation due to possible procedure. Stage I/2 sacral ulcer. We'll consult wound care. Diabetes mellitus. Insulin and diabetic diet-WATCH HYPOGLYCEMIA MONITOR LABS COPD. History of WERNER. Chronic. Continue home meds. Hypothyroidism. Chronic. Continue home meds GERD. Chronic. Continue home medication SEEN BY ID AND NEPHROLOGY HAD HD ON 07-10 Code Status: FULL CODE Discussed Condition With: RN AND PT AND CM Discharge Planning: PENDING ID AND NEPHROLOGY CLEARANCE
--- NOTE | 2018-07-11 12:08 | P.PNID ---
Subjective Remarks: Patient is more awake. He is complaining of pain in the right fourth and fifth fingers. Notes his buttocks hurts also. Afebrile. Voices no other complaints. Reports that he gets chills with dialysis. Urine culture has gram-negative della. Blood culture pending. Permacath removed. Catheter tip culture pending. This is a 72-year-old white male who [facility] a [facility]. The patient has multiple medical problems. He presented to the emergency department on 07/09/2018 with fever. He was recently treated in this hospital for sepsis and [facility]. He reportedly also had hypotension. He was extremely lethargic also yesterday. The patient has end-stage renal disease and undergoes hemodialysis. This consultation was requested for infectious disease management of sepsis. Past Medical History: PAST MEDICAL HISTORY: Hypertension, diabetes mellitus, dementia, chronic kidney disease stage IV the patient receiving hemodialysis, benign prostatic hypertrophy, COPD, coronary artery disease, hyperlipidemia, hypothyroidism, history of non-ST elevated myocardial infarction, posttraumatic stress disorder, sleep apnea, history of coronary stent, history of TURP, history of nephrostomy. Allergies/Adverse Reactions: Allergies celecoxib [From Celebrex] Allergy (Severe, Verified 07/09/18 11:57) Itching ciprofloxacin Allergy (Severe, Verified 07/09/18 11:57) Itching diatrizoate meglumine Allergy (Severe, Verified 07/09/18 11:57) Itching gadobenic acid Allergy (Severe, Verified 07/09/18 11:57) Itching gadodiamide Allergy (Severe, Verified 07/09/18 11:57) Itching gadoteridol Allergy (Severe, Verified 07/09/18 11:57) Itching iodixanol Allergy (Severe, Verified 07/09/18 11:57) Itching iohexol Allergy (Severe, Verified 07/09/18 11:57) Itching levofloxacin Allergy (Severe, Verified 07/09/18 11:57) Itching ezetimibe [From Zetia] Allergy (Intermediate, Verified 07/09/18 11:57) Itching prochlorperazine [From Compazine] Allergy (Unknown, Verified 05/10/18 20:51) Itching red dye Allergy (Unknown, Verified 05/10/18 20:51) Itching Objective Vital Signs 07/10/18 12:00 07/10/18 20:00 07/11/18 00:00 Temperature 97.6 F 98.0 F 98.2 F Pulse Rate 60 73 60 Respiratory Rate 16 18 Blood Pressure 109/53 L 100/50 L 103/54 L Pulse Oximetry 98 99 07/11/18 04:08 07/11/18 08:00 07/11/18 10:20 Temperature 97.4 F L 97.8 F Pulse Rate 86 85 Respiratory Rate 18 16 Blood Pressure 122/57 L 82/47 L Pulse Oximetry 94 L 87 L 95 Intake & Output 07/10/18 07/11/18 07/11/18 18:59 06:59 18:59 Intake Total 350 / 350 150 / 150 Output Total 1000 / 1000 250 / 250 Balance -650 / -650 -100 / -100 Weight 103 kg Intake: IV 350 / 350 150 / 150 Zosyn 2.25 GM Premix 50 ML @ 100 / 100 150 / 150 100 mls/hr IV.SIG Q6H [facility] Rx#: [id number] Vancomycin Inj 1,000 MG In NS 250 / 250 Inj 250 ML @ 250 mls/hr IV.SIG WITH DIALYSIS [facility]O Rx#:[id number] Output: Urine 250 / 250 Hemodialysis Amount 1000 / 1000 Other: # Voids 3 07/09/18 12:05 Blood - Peripheral Aerobic Blood Culture - Preliminary No growth in 2 days 07/09/18 12:05 Blood - Peripheral Anaerobic Blood Culture - Preliminary No growth in 2 days 07/09/18 11:55 Blood - Peripheral Aerobic Blood Culture - Preliminary No growth in 2 days 07/09/18 11:55 Blood - Peripheral Anaerobic Blood Culture - Preliminary No growth in 2 days 07/10/18 14:15 Catheter Tip - Central Venous Line Wound Culture - Pending 07/09/18 15:00 Catheterized Urine Urine Culture - Preliminary gram negative rods 07/09/18 14:25 Nasal Wash Influenza Types A,B Antigen - Final Negative for FLU A and B antigen Infection due to influenza A or B cannot be ruled out since the antigen present in the sample may be below the detection limit of the test. Lab - Hematology Results 07/09/18 07/10/18 07/11/18 12:05 07:15 05:29 WBC 17.7 H 17.6 H 12.5 H RBC 3.10 L 2.85 L 2.64 L Hgb 9.0 L 8.4 L 7.7 L Hct 29.3 L 26.7 L 24.6 L MCV 94.5 93.5 93.4 MCH 29.0 29.6 29.1 MCHC 30.7 L 31.6 L 31.2 L RDW 15.3 15.4 15.3 Plt Count 459 H D 353 325 MPV 7.4 7.6 7.4 Prelim Diff (Auto) Slide review pending Slide review pending Slide review pending Neut % (Auto) 79.3 H 79.3 H 70.7 H Lymph % (Auto) 9.3 10.2 13.2 [place] % (Auto) 9.9 H 9.0 H 12.9 H Eos % (Auto) 1.0 1.0 2.5 Baso % (Auto) 0.5 0.5 0.7 Neut # (Auto) 14.0 H 13.9 H 8.9 H Lymph # (Auto) 1.6 1.8 1.7 [place] # (Auto) 1.7 H 1.6 H 1.6 H Eos # (Auto) 0.2 0.2 0.3 Baso # (Auto) 0.1 0.1 0.1 WBC Differential Manual diff final Manual diff final Manual diff final Seg Neuts % (Manual) 77 H 72 H 61 Band Neuts % (Manual) 3 4 6 Lymphocytes % (Manual) 10 14 18 Monocytes % (Manual) 9 H 7 7 Eosinophils % (Manual) 1 4 Metamyelocytes % (Man) 1 Myelocytes % (Man) 1 H 1 H 2 H Promyelocytes % (Man) 1 H 1 H Abs Neuts (Manual) 14.3 H 13.7 H 8.9 H Differential Comment . . . Toxic Granulation 1+ H 1+ H 1+ H Platelet Estimate High H Normal Normal Platelet Morphology Normal Normal Clumped H Ovalocytes 1+ H 1+ H 1+ H Lab - Chemistry Results 07/09/18 07/09/18 07/09/18 12:05 12:05 15:10 Sodium 138 Potassium 4.4 Chloride 103 Carbon Dioxide 23.5 Anion Gap 12 BUN 35 H Creatinine 6.07 H Estimated GFR 9 L POC Glucose Random Glucose 118 H Lactic Acid 2.1 H 1.6 Calcium 8.1 L Phosphorus 3.0 Magnesium 1.8 Total Bilirubin 0.3 AST 50 H ALT 21 Alkaline Phosphatase 174 H Troponin I 0.03 Total Protein 6.2 L Albumin 2.0 L TSH Free T4 07/09/18 07/10/18 07/10/18 19:19 07:15 08:17 Sodium 141 Potassium 3.8 Chloride 105 Carbon Dioxide 22.9 Anion Gap 13 BUN 44 H Creatinine 6.94 H Estimated GFR 8 L POC Glucose 154 H 92 Random Glucose 71 L Lactic Acid Calcium 8.1 L Phosphorus Magnesium Total Bilirubin 0.3 AST 57 H ALT 26 Alkaline Phosphatase 167 H Troponin I Total Protein 5.9 L Albumin 1.8 L TSH Free T4 07/10/18 07/10/18 07/10/18 11:34 17:45 21:06 Sodium Potassium Chloride Carbon Dioxide Anion Gap BUN Creatinine Estimated GFR POC Glucose 99 84 147 H Random Glucose Lactic Acid Calcium Phosphorus Magnesium Total Bilirubin AST ALT Alkaline Phosphatase Troponin I Total Protein Albumin TSH Free T4 07/11/18 07/11/18 07/11/18 05:29 06:42 07:16 Sodium 142 Potassium 3.3 L Chloride 103 Carbon Dioxide 34.2 H D Anion Gap 5 BUN 23 H Creatinine 4.55 H Estimated GFR 13 L POC Glucose 50 L 66 L Random Glucose 44 L* Lactic Acid Calcium 7.5 L Phosphorus 2.6 Magnesium 1.8 Total Bilirubin 0.3 AST 58 H ALT 29 Alkaline Phosphatase 176 H Troponin I Total Protein 5.2 L D Albumin 1.6 L TSH 24.100 H Free T4 0.98 07/11/18 07/11/18 07/11/18 07:33 08:07 11:41 Sodium Potassium Chloride Carbon Dioxide Anion Gap BUN Creatinine Estimated GFR POC Glucose 65 L 165 H 79 Random Glucose Lactic Acid Calcium Phosphorus Magnesium Total Bilirubin AST ALT Alkaline Phosphatase Troponin I Total Protein Albumin TSH Free T4 Imaging: ITS Impressions Chest X-Ray 07/09/18 11:59 CONCLUSION: Dialysis catheter in good position. The lungs are clear. Catheter Placement 07/10/18 00:00 CONCLUSION: 1. Uncomplicated line placement as above. Physical Exam: PHYSICAL EXAMINATION: GENERAL: No acute distress. Awake and alert. HEENT: Head is atraumatic. Extraocular muscles grossly intact. Pupils reactive to light. No icterus. Oropharynx dry mucosa. No visible lesions. NECK: Supple. No adenopathy. LUNGS: Decreased breath sounds. HEART: Regular S1, S2. Heart sounds are distant. ABDOMEN: Bowel sounds present. Soft, no tenderness. BUTTOCK: Dry excoriated ulcerated lesion with erythema at both buttocks. No visible drainage. EXTREMITIES: No clubbing, cyanosis or edema. Superficial pressure ulceration at the left heel. SKIN: No rash. NEUROLOGIC: Non focal. PSYCHIATRIC: Calm and cooperative. Assessment and Plan - Plan IMPRESSION: Sepsis, likely arising from urinary tract infection versus dialysis catheter infection. Gram negative UTI. RECOMMENDATIONS: 1. Continue piperacillin/tazobactam. 2. Continue vancomycin given at dialysis. 3. Follow urine culture. 4. Follow blood culture. 5. Monitor clinical response.
[2018-07-11] MEDS ORDERED: Vancomycin Inj 1,250 MG in Sodium Chlor 0.9% Inj 250 ML IV.SIG ONE (17:00)
[2018-07-11] MEDS ORDERED: Insulin Detemir Inj 1,000 UNIT/10 ML Vial SQ SCH (21:00)
[2018-07-12] MEDS: Carboxymethylcellulose 0.5% Opth Drops 15 ML Bottle EACH EYE SCH ×4 (05:42→23:57)
[2018-07-12 06:11] LABS: Baso # (Auto) 0.1 th/mm3 (0.0-0.2); Baso % (Auto) 0.9 % (0.0-2.0); Eos # (Auto) 0.4 th/mm3 (0.0-0.4); Eos % (Auto) 3.6 % (0.0-4.0); Hematocrit 26.3 % (39.0-51.0); Hemoglobin 8.4 gm/dL (13.0-17.0); Lymph % (Auto) 19.4 % (9.0-44.0); Mean Corpuscular HGB Conc 32.1 % (32.0-36.0); Mean Corpuscular Hemoglobin 29.5 pg (27.0-34.0); Mean Corpuscular Volume 91.8 fL (80.0-100.0); Mean Platelet Volume 7.5 fL (7.0-11.0); Mono # (Auto) 1.3 th/mm3 (0.0-0.9); Mono % (Auto) 12.8 % (0.0-8.0); Neut # (Auto) 6.6 th/mm3 (1.8-7.7); Neut % (Auto) 63.3 % (16.0-70.0); Platelet Count 317 th/mm3 (150-450); Red Blood Count 2.86 mil/mm3 (4.50-5.90); Red Cell Distribution Width 15.9 % (11.6-17.2); White Blood Count 10.5 th/mm3 (4.0-11.0)
[2018-07-12] MEDS: Levothyroxine 75 MCG Tablet PO SCH (06:13)
[2018-07-12] MEDS: Piperacil/Tazo 2.25 GM Premix 50 ML IV.SIG SCH (06:14)
[2018-07-12] MEDS: Morphine Inj 4 MG/ML Vial IV.PUSH PRN (06:15)
[2018-07-12 06:28] LABS: Alanine Aminotransferase 23 U/L (12-78); Albumin 1.6 g/dL (3.4-5.0); Anion Gap 10 meq/L (5-15); Aspartate Aminotransferase 37 U/L (15-37); Blood Urea Nitrogen 26 mg/dL (7-18); Calcium 7.8 mg/dL (8.5-10.1); Carbon Dioxide 30.5 meq/L (21.0-32.0); Chloride 99 meq/L (98-107); Glomerular Filtration Rate 11 mL/min (>89); Glucose,Random 56 mg/dL (74-106); Magnesium 1.7 mg/dL (1.5-2.5); Potassium 3.5 meq/L (3.5-5.1); Sodium 139 meq/L (136-145)
[2018-07-12 06:31] LABS: Alkaline Phosphatase 163 U/L (45-117); Phosphorus 2.2 mg/dL (2.5-4.9); Total Protein 5.5 g/dL (6.4-8.2)
[2018-07-12 07:51] LABS: Eosinophils 2 % (0-4); Lymphocytes 22 % (9-44); Metamyelocytes 4 % (0-1); Monocytes 8 % (0-8); Myelocytes 2 % (0-0); Platelet Estimate Normal (Normal); Platelet Morphology Normal (Normal)
[2018-07-12] MEDS: Insulin NovoLOG Aspart Correctional Sugar Inj SQ SCH ×3 (08:27→18:26)
[2018-07-12] MEDS: Amiodarone 200 MG Tablet PO SCH ×2 (08:28→23:57)
[2018-07-12] MEDS: Pantoprazole Sodium 20 MG DR Tablet PO SCH (08:29)
[2018-07-12] MEDS: Heparin Central Flush 100 UNIT/ML 5 ML Vial IV.FLUSH SCH (08:29)
[2018-07-12] MEDS: Tiotropium Bromide 18 MCG/ACT Inhaler INH SCH (08:30)
[2018-07-12] MEDS: Clotrimazole 1% Cream 15 GM Tube TOPICAL SCH ×2 (08:30→23:55)
[2018-07-12] MEDS: Polyethylene Glycol 3350 17 GM Packet PO SCH ×2 (08:39→23:56)
[2018-07-12] MEDS: Vancomycin Inj 1,000 MG in Sodium Chlor 0.9% Inj 250 ML IV.SIG SCH (12:33)
[2018-07-12] MEDS: Heparin 10,000 UNITS/10 ML Vial (for IV use) OTHER PRN (12:34)
--- NOTE | 2018-07-12 13:39 | P.PNID ---
Subjective Remarks: Patient alert. Just back from dialysis. Eating lunch while laying in bed. Afebrile. Voices no other complaints. Urine culture has ESBL e. coli Blood culture has no growth. Permacath removed. Catheter tip culture pending. This is a 72-year-old white male who is a senior living resident. The patient has multiple medical problems. He presented to the emergency department on 07/09/2018 with fever. He was recently treated in this hospital for sepsis and transferred back to the senior living facility. He reportedly also had hypotension. He was extremely lethargic also yesterday. The patient has end-stage renal disease and undergoes hemodialysis. This consultation was requested for infectious disease management of sepsis. Past Medical History: PAST MEDICAL HISTORY: Hypertension, diabetes mellitus, dementia, chronic kidney disease stage IV the patient receiving hemodialysis, benign prostatic hypertrophy, COPD, coronary artery disease, hyperlipidemia, hypothyroidism, history of non-ST elevated myocardial infarction, posttraumatic stress disorder, sleep apnea, history of coronary stent, history of TURP, history of nephrostomy. Allergies/Adverse Reactions: Allergies celecoxib [From Celebrex] Allergy (Severe, Verified 07/09/18 11:57) Itching ciprofloxacin Allergy (Severe, Verified 07/09/18 11:57) Itching diatrizoate meglumine Allergy (Severe, Verified 07/09/18 11:57) Itching gadobenic acid Allergy (Severe, Verified 07/09/18 11:57) Itching gadodiamide Allergy (Severe, Verified 07/09/18 11:57) Itching gadoteridol Allergy (Severe, Verified 07/09/18 11:57) Itching iodixanol Allergy (Severe, Verified 07/09/18 11:57) Itching iohexol Allergy (Severe, Verified 07/09/18 11:57) Itching levofloxacin Allergy (Severe, Verified 07/09/18 11:57) Itching ezetimibe [From Zetia] Allergy (Intermediate, Verified 07/09/18 11:57) Itching prochlorperazine [From Compazine] Allergy (Unknown, Verified 05/10/18 20:51) Itching red dye Allergy (Unknown, Verified 05/10/18 20:51) Itching Objective Vital Signs 07/11/18 20:00 07/11/18 21:48 07/12/18 00:00 Temperature 98.1 F 97.4 F L Pulse Rate 66 85 Respiratory Rate 20 20 18 Blood Pressure 102/57 L 122/68 Pulse Oximetry 95 98 07/12/18 04:00 07/12/18 08:00 07/12/18 09:35 Temperature 97.8 F 97.3 F L Pulse Rate 69 64 Respiratory Rate 18 16 Blood Pressure 107/50 L 96/70 L Pulse Oximetry 97 97 97 Intake & Output 07/11/18 07/12/18 07/12/18 18:59 06:59 18:59 Intake Total 100 / 100 312.5 / 312.5 Output Total 1999 Balance 100 / 100 312.5 / 312.5 -1999 Weight 89.7 kg Intake: IV 100 / 100 312.5 / 312.5 Zosyn 2.25 GM Premix 50 ML @ 100 / 100 50 / 50 100 mls/hr IV.SIG Q6H WILFREDO Rx#: [id number] Vancomycin Inj 1,250 MG In NS 262.5 / 262.5 Inj 250 ML @ 250 mls/hr IV.SIG ONCE ONE Rx#:[id number] Output: Hemodialysis Amount 1999 Other: # Voids 0 # Incontinent Voids 0 # Bowel Movements 0 # Incontinent Bowel Movements 0 07/10/18 14:15 Catheter Tip - Central Venous Line Wound Culture - Final No growth in 48 hours 07/09/18 12:05 Blood - Peripheral Aerobic Blood Culture - Preliminary No growth in 3 days 07/09/18 12:05 Blood - Peripheral Anaerobic Blood Culture - Preliminary No growth in 3 days 07/09/18 11:55 Blood - Peripheral Aerobic Blood Culture - Preliminary No growth in 3 days 07/09/18 11:55 Blood - Peripheral Anaerobic Blood Culture - Preliminary No growth in 3 days 07/09/18 15:00 Catheterized Urine Urine Culture - Final Escherichia coli ESBL positive 07/09/18 14:25 Nasal Wash Influenza Types A,B Antigen - Final Negative for FLU A and B antigen Infection due to influenza A or B cannot be ruled out since the antigen present in the sample may be below the detection limit of the test. Lab - Hematology Results 07/11/18 07/12/18 05:29 05:47 WBC 12.5 H 10.5 RBC 2.64 L 2.86 L Hgb 7.7 L 8.4 L Hct 24.6 L 26.3 L MCV 93.4 91.8 MCH 29.1 29.5 MCHC 31.2 L 32.1 RDW 15.3 15.9 Plt Count 325 317 MPV 7.4 7.5 Prelim Diff (Auto) Slide review pending Slide review pending Neut % (Auto) 70.7 H 63.3 Lymph % (Auto) 13.2 19.4 [place] % (Auto) 12.9 H 12.8 H Eos % (Auto) 2.5 3.6 Baso % (Auto) 0.7 0.9 Neut # (Auto) 8.9 H 6.6 Lymph # (Auto) 1.7 2.0 [place] # (Auto) 1.6 H 1.3 H Eos # (Auto) 0.3 0.4 Baso # (Auto) 0.1 0.1 WBC Differential Manual diff final Manual diff final Seg Neuts % (Manual) 61 55 Band Neuts % (Manual) 6 7 H Lymphocytes % (Manual) 18 22 Monocytes % (Manual) 7 8 Eosinophils % (Manual) 4 2 Metamyelocytes % (Man) 1 4 H Myelocytes % (Man) 2 H 2 H Promyelocytes % (Man) 1 H Abs Neuts (Manual) 8.9 H 7.1 Differential Comment . . Toxic Granulation 1+ H Platelet Estimate Normal Normal Platelet Morphology Clumped H Normal Ovalocytes 1+ H Lab - Chemistry Results 07/10/18 07/10/18 07/11/18 17:45 21:06 05:29 Sodium Potassium Chloride Carbon Dioxide Anion Gap BUN Creatinine Estimated GFR POC Glucose 84 147 H Random Glucose Hemoglobin A1c 7.0 H Calcium Phosphorus Magnesium Total Bilirubin AST ALT Alkaline Phosphatase Total Protein Albumin TSH Free T4 07/11/18 07/11/18 07/11/18 05:29 06:42 07:16 Sodium 142 Potassium 3.3 L Chloride 103 Carbon Dioxide 34.2 H D Anion Gap 5 BUN 23 H Creatinine 4.55 H Estimated GFR 13 L POC Glucose 50 L 66 L Random Glucose 44 L* Hemoglobin A1c Calcium 7.5 L Phosphorus 2.6 Magnesium 1.8 Total Bilirubin 0.3 AST 58 H ALT 29 Alkaline Phosphatase 176 H Total Protein 5.2 L D Albumin 1.6 L TSH 24.100 H Free T4 0.98 07/11/18 07/11/18 07/11/18 07:33 08:07 11:41 Sodium Potassium Chloride Carbon Dioxide Anion Gap BUN Creatinine Estimated GFR POC Glucose 65 L 165 H 79 Random Glucose Hemoglobin A1c Calcium Phosphorus Magnesium Total Bilirubin AST ALT Alkaline Phosphatase Total Protein Albumin TSH Free T4 07/11/18 07/11/18 07/11/18 17:02 17:40 17:46 Sodium Potassium Chloride Carbon Dioxide Anion Gap BUN Creatinine Estimated GFR POC Glucose 46 L* 142 H Random Glucose 120 H Hemoglobin A1c Calcium Phosphorus Magnesium Total Bilirubin AST ALT Alkaline Phosphatase Total Protein Albumin TSH Free T4 07/11/18 07/12/18 07/12/18 21:25 05:47 08:26 Sodium 139 Potassium 3.5 Chloride 99 Carbon Dioxide 30.5 Anion Gap 10 BUN 26 H Creatinine 5.26 H Estimated GFR 11 L POC Glucose 87 73 Random Glucose 56 L Hemoglobin A1c Calcium 7.8 L Phosphorus 2.2 L Magnesium 1.7 Total Bilirubin 0.3 AST 37 ALT 23 Alkaline Phosphatase 163 H Total Protein 5.5 L Albumin 1.6 L TSH Free T4 07/12/18 07/12/18 09:18 11:50 Sodium Potassium Chloride Carbon Dioxide Anion Gap BUN Creatinine Estimated GFR POC Glucose 80 92 Random Glucose Hemoglobin A1c Calcium Phosphorus Magnesium Total Bilirubin AST ALT Alkaline Phosphatase Total Protein Albumin TSH Free T4 Imaging: ITS Impressions Chest X-Ray 07/09/18 11:59 CONCLUSION: Dialysis catheter in good position. The lungs are clear. Catheter Placement 07/10/18 00:00 CONCLUSION: 1. Uncomplicated line placement as above. Physical Exam: PHYSICAL EXAMINATION: GENERAL: No acute distress. Awake and alert. HEENT: Head is atraumatic. Extraocular muscles grossly intact. Pupils reactive to light. No icterus. Oropharynx dry mucosa. No visible lesions. NECK: Supple. No adenopathy. LUNGS: Decreased breath sounds. HEART: Regular S1, S2. Heart sounds are distant. ABDOMEN: Bowel sounds present. Soft, no tenderness. BUTTOCK: Dry excoriated ulcerated lesion with erythema at both buttocks. No visible drainage. EXTREMITIES: No clubbing, cyanosis or edema. Superficial pressure ulceration at the left heel. SKIN: No rash. NEUROLOGIC: Non focal. PSYCHIATRIC: Calm and cooperative. Assessment and Plan - Plan IMPRESSION: Sepsis, likely arising from urinary tract infection versus dialysis catheter infection. ESBL - UTI. ESRD on hemodialysis. RECOMMENDATIONS: 1. Stop piperacillin/tazobactam. 2. Stop vancomycin given at dialysis. 3. Start Ertapenem adjusted for renal function. Dialysis patient. 4. Follow blood culture. 5. Follow permacath culture. 6. Monitor clinical response.
--- NOTE | 2018-07-12 15:48 | P.PNIM ---
Subjective Interval history: Mr. Monteiro was seen this afternoon; evaluated during/after VS obtained at ~1530- HR 80, BP 119/56, RR 20, O2 saturations 94%. After O2 saturation 94% obtained, bent arm during assessment and pulse oximeter read low 70's which was assumed to be related to no longer reading. Patient refused repeat O2 saturation and told providers to get away. Patient's nurse arrived to bedside and confirmed that patient not at his normal mental status. Patient refused to answer questions about orientation. Patient had clear speech ; he stated that he wanted to be left alone. He denied shortness of breath. Per nurse/ EMR review, patient had saturation of 94% since returning from dialysis and ate lunch. Physical Exam Vital signs: Vital Signs 07/11/18 20:00 07/11/18 21:48 07/12/18 00:00 Temperature 98.1 F 97.4 F L Pulse Rate 66 85 Respiratory Rate 20 20 18 Blood Pressure 102/57 L 122/68 Pulse Oximetry 95 98 07/12/18 04:00 07/12/18 08:00 07/12/18 09:35 Temperature 97.8 F 97.3 F L Pulse Rate 69 64 Respiratory Rate 18 16 Blood Pressure 107/50 L 96/70 L Pulse Oximetry 97 97 97 Intake & Output 07/11/18 07/12/18 07/12/18 18:59 06:59 18:59 Intake Total 100 / 100 312.5 / 312.5 250 / 250 Output Total 1999 Balance 100 / 100 312.5 / 312.5 -1750 / -1750 Weight 89.7 kg Intake: IV 100 / 100 312.5 / 312.5 250 / 250 Zosyn 2.25 GM Premix 50 ML @ 100 / 100 50 / 50 100 mls/hr IV.SIG Q6H [facility]FREDO Rx#: [id number] Vancomycin Inj 1,000 MG In NS 250 / 250 Inj 250 ML @ 250 mls/hr IV.SIG WITH DIALYSIS WILFREDO Rx#:[id number] Vancomycin Inj 1,250 MG In NS 262.5 / 262.5 Inj 250 ML @ 250 mls/hr IV.SIG ONCE ONE Rx#:[id number] Output: Hemodialysis Amount 1999 Other: # Voids 0 # Incontinent Voids 0 # Bowel Movements 0 # Incontinent Bowel Movements 0 Narrative: GENERAL: no visible distress but agitated. Per nursing staff, concern for wrist pain SKIN: Warm and dry. EYES: EOM grossly I. ENT: No nasal bleeding or discharge. Mucous membranes pink and moist. NECK: Trachea midline. No JVD. CARDIOVASCULAR: Regular rate and rhythm. Grossly normal perfusion RESPIRATORY: CTAB, diminished. Normal rate GASTROINTESTINAL: Abdomen soft, nontender. Normal BS MUSCULOSKELETAL: Extremities without edema. Not assessed in detail due to patient's agitation; reported pain with manipulation of RUE by nursing staff NEUROLOGICAL: No obvious cranial nerve deficits. Assessment of peripheral motor /sensory function inhibited by agitation. Normal speech PSYCHIATRIC: Agitated; confused - Urinary Catheter Management Indwelling Urethral Catheter Cath placed during this visit: yes, but has since been removed by the nurse Reason for continuing: Acute urinary retention Insertion date: 07/09/18 Insertion time: 17:30 Removal date: 07/11/18 Removal time: 15:35 Results - Labs CBC & Chem 7: 07/12/18 05:47 07/12/18 05:47 Laboratory Results - last 24 hr 07/11/18 07/11/18 07/11/18 17:02 17:40 17:46 WBC RBC Hgb Hct MCV MCH MCHC RDW Plt Count MPV Prelim Diff (Auto) Neut % (Auto) Lymph % (Auto) [place] % (Auto) Eos % (Auto) Baso % (Auto) Neut # (Auto) Lymph # (Auto) [place] # (Auto) Eos # (Auto) Baso # (Auto) WBC Differential Seg Neuts % (Manual) Band Neuts % (Manual) Lymphocytes % (Manual) Monocytes % (Manual) Eosinophils % (Manual) Metamyelocytes % (Man) Myelocytes % (Man) Abs Neuts (Manual) Differential Comment Platelet Estimate Platelet Morphology Sodium Potassium Chloride Carbon Dioxide Anion Gap BUN Creatinine Estimated GFR POC Glucose 46 L* 142 H Random Glucose 120 H Calcium Phosphorus Magnesium Total Bilirubin AST ALT Alkaline Phosphatase Total Protein Albumin 07/11/18 07/12/18 07/12/18 21:25 05:47 05:47 WBC 10.5 RBC 2.86 L Hgb 8.4 L Hct 26.3 L MCV 91.8 MCH 29.5 MCHC 32.1 RDW 15.9 Plt Count 317 MPV 7.5 Prelim Diff (Auto) Slide review pending Neut % (Auto) 63.3 Lymph % (Auto) 19.4 [place] % (Auto) 12.8 H Eos % (Auto) 3.6 Baso % (Auto) 0.9 Neut # (Auto) 6.6 Lymph # (Auto) 2.0 [place] # (Auto) 1.3 H Eos # (Auto) 0.4 Baso # (Auto) 0.1 WBC Differential Manual diff final Seg Neuts % (Manual) 55 Band Neuts % (Manual) 7 H Lymphocytes % (Manual) 22 Monocytes % (Manual) 8 Eosinophils % (Manual) 2 Metamyelocytes % (Man) 4 H Myelocytes % (Man) 2 H Abs Neuts (Manual) 7.1 Differential Comment . Platelet Estimate Normal Platelet Morphology Normal Sodium 139 Potassium 3.5 Chloride 99 Carbon Dioxide 30.5 Anion Gap 10 BUN 26 H Creatinine 5.26 H Estimated GFR 11 L POC Glucose 87 Random Glucose 56 L Calcium 7.8 L Phosphorus 2.2 L Magnesium 1.7 Total Bilirubin 0.3 AST 37 ALT 23 Alkaline Phosphatase 163 H Total Protein 5.5 L Albumin 1.6 L 07/12/18 07/12/18 07/12/18 08:26 09:18 11:50 WBC RBC Hgb Hct MCV MCH MCHC RDW Plt Count MPV Prelim Diff (Auto) Neut % (Auto) Lymph % (Auto) [place] % (Auto) Eos % (Auto) Baso % (Auto) Neut # (Auto) Lymph # (Auto) [place] # (Auto) Eos # (Auto) Baso # (Auto) WBC Differential Seg Neuts % (Manual) Band Neuts % (Manual) Lymphocytes % (Manual) Monocytes % (Manual) Eosinophils % (Manual) Metamyelocytes % (Man) Myelocytes % (Man) Abs Neuts (Manual) Differential Comment Platelet Estimate Platelet Morphology Sodium Potassium Chloride Carbon Dioxide Anion Gap BUN Creatinine Estimated GFR POC Glucose 73 80 92 Random Glucose Calcium Phosphorus Magnesium Total Bilirubin AST ALT Alkaline Phosphatase Total Protein Albumin Microbiology 07/10/18 14:15 Catheter Tip - Central Venous Line Wound Culture - Final No growth in 48 hours 07/09/18 12:05 Blood - Peripheral Aerobic Blood Culture - Preliminary No growth in 3 days 07/09/18 12:05 Blood - Peripheral Anaerobic Blood Culture - Preliminary No growth in 3 days 07/09/18 11:55 Blood - Peripheral Aerobic Blood Culture - Preliminary No growth in 3 days 07/09/18 11:55 Blood - Peripheral Anaerobic Blood Culture - Preliminary No growth in 3 days 07/09/18 15:00 Catheterized Urine Urine Culture - Final Escherichia coli ESBL positive - Procedures NONE Assessment and Plan - Assessment (1) ESBL (extended spectrum beta-lactamase) producing bacteria infection Code(s): A49.9 - Bacterial infection, unspecified; Z16.12 - Extended spectrum beta lactamase (ESBL) resistance Status: Acute (2) Sepsis Code(s): A41.9 - Sepsis, unspecified organism Status: Acute (3) Acute alteration in mental status Code(s): R41.82 - Altered mental status, unspecified Status: Acute (4) COPD (chronic obstructive pulmonary disease) Code(s): J44.9 - Chronic obstructive pulmonary disease, unspecified Status: Acute - Plan Mr. Monteiro is a 72 yo male with: Altered mental status Impression: Patient agitated after dialysis today; refused labs. Glucose 92 after dialysis. Clear speech; no focal CN or peripheral defects. PMH COPD; recent O2 sat 94% but not agreeable to repeat check to confirm Metabolic encephalopathy on admission resolved but patient confused at baseline -Will repeat CBC, CMP -Will check venous gas to assess for retention -Will give Haldol to assist in achieving labs -Will monitor closely; if not able to obtain labs or he develops neurologic symptoms will consider IMC transfer Severe Sepsis on admission Acute UTI with pyuria -Patient with leukocytosis of 17, temperature 100.4, lactate 2.3, gross pus in urine as described by ED physician, urinary retention Found to have ESBL UTI -ID consulted -Stop Zosyn/Vancomycin -Ertapenem adjusted for renal function -Follow blood, permacath cultures -Urinary catheter replaced 07/10 End-stage renal disease. -Nephrology consulted -Last dialysis 07/12; 4 L removed -Permacath removed 07/10 Cardiovascular Chronic systolic heart failure Atrial fibrillation Impression: Rate controlled -Continue cardiac meds Holding anti-coagulation due to possible procedure Stage I/2 sacral ulcer -Wound care consulted Diabetes mellitus Insulin and diabetic diet -Watch hypoglycemia COPD History of WERNER -Continue home meds. Hypothyroidism. Chronic -Continue home meds GERD Chronic -Continue home medication Code Status: Full code
[2018-07-12] MEDS ORDERED: Haloperidol Inj 5 MG/ML Ampul IM PRN (15:51)
--- NOTE | 2018-07-12 16:45 | P.PNWCN ---
Wound Care Nurse Consult Description: Consult for Wound Management buttock area per nursing staff per Dr Forrest Communicated with: Dr Adriane Ro, RN Recommendation: Fungal powder followed by Cavilon skin barrier film, covered with Calazime skin protectant paste to moisture related skin rash with partial thickness breakdown BID and PRN Additional information: Attempted to see patient x2 today. Patient was off unit in Dialysis on first attempt at 11:39. Second attempt was later today when vital signs were being obtained by ALARM INSTALLER with Dr Forrest at bedside. Patient refusing assessment at this time.
[2018-07-12] MEDS ORDERED: Haloperidol Inj 5 MG/ML Ampul IM ONE ×2 (17:04→21:42)
[2018-07-12] MEDS: Ertapenem Inj 500 MG in Sodium Chlor 0.9% Inj 100 ML IV.SIG SCH (18:19)
[2018-07-12 19:14] LABS: Hematocrit 24.3 % (39.0-51.0); Hemoglobin 7.8 gm/dL (13.0-17.0); Mean Corpuscular Hemoglobin 29.4 pg (27.0-34.0); Mean Corpuscular Volume 91.8 fL (80.0-100.0); Mean Platelet Volume 8.5 fL (7.0-11.0); Platelet Count 136 th/mm3 (150-450); Red Blood Count 2.65 mil/mm3 (4.50-5.90); Red Cell Distribution Width 15.7 % (11.6-17.2); White Blood Count 9.2 th/mm3 (4.0-11.0)
[2018-07-12 19:24] LABS: Albumin 1.6 g/dL (3.4-5.0); Anion Gap 7 meq/L (5-15); Aspartate Aminotransferase 34 U/L (15-37); Blood Urea Nitrogen 13 mg/dL (7-18); Calcium 7.6 mg/dL (8.5-10.1); Carbon Dioxide 28.9 meq/L (21.0-32.0); Chloride 102 meq/L (98-107); Glomerular Filtration Rate 18 mL/min (>89); Glucose,Random 138 mg/dL (74-106); Potassium 3.9 meq/L (3.5-5.1); Sodium 138 meq/L (136-145)
[2018-07-12 19:25] LABS: Alanine Aminotransferase 23 U/L (12-78)
[2018-07-12 19:33] LABS: Alkaline Phosphatase 182 U/L (45-117); Total Protein 5.4 g/dL (6.4-8.2)
[2018-07-12 19:56] LABS: Eosinophils 3 % (0-4); Lymphocytes 5 % (9-44); Metamyelocytes 2 % (0-1); Monocytes 6 % (0-8); Myelocytes 1 % (0-0); Platelet Morphology Normal (Normal); Promyelocyte 1 % (0-0); Toxic Granulation 2+
[2018-07-12 19:57] LABS: Acanthocytes Occ
[2018-07-13] MEDS: Insulin NovoLOG Aspart Correctional Sugar Inj SQ SCH ×5 (03:07→21:31)
[2018-07-13] MEDS: Carboxymethylcellulose 0.5% Opth Drops 15 ML Bottle EACH EYE SCH ×4 (03:08→22:00)
[2018-07-13] MEDS: Levothyroxine 75 MCG Tablet PO SCH (06:33)
--- NOTE | 2018-07-13 09:06 | XR ---
EXAM DATE: 07/13/2018 8:57 AM EDT AGE/SEX: 72 years / Male INDICATIONS: Pain without recent trauma. CLINICAL DATA: This is the patient's initial encounter. Patient reports that signs and symptoms have been present for 1 day and indicates a pain score of 6/10. MEDICAL/SURGICAL HISTORY: None. None. [place] [facility] [place]. . FINDINGS: There are scattered osseous cysts in the carpal bones, most notably in the lunate triquetral exam and capitate. I believe these were all present previously. However, there is interval widening of the sc apholunate joint and questionable developing periarticular osseous demineralization or early erosion within the articulating surface of the scaphoid. As noted previously, dense atherosclerotic calcifica tion of the regional vasculature. CONCLUSION: 1. Multiple carpal osseous cysts as above. These are basically stable and overtly benign. 2. However, there appears to be some interval widening of the scapholunate joint with questionable r egional osseous demineralization or early erosion on the scaphoid side of the joint. Findings could b e due to previous trauma or crystalline arthropathy such as gouty arthritis. 3. Possible associated injury to the scapholunate ligament. If there is a clinical concern, MRI of t he wrist could be performed for further characterization Electronically signed by: Raleigh Guillen MD 07/13/2018 9:05 AM EDT
[2018-07-13] MEDS: Polyethylene Glycol 3350 17 GM Packet PO SCH ×2 (09:27→21:30)
[2018-07-13] MEDS: Tiotropium Bromide 18 MCG/ACT Inhaler INH SCH (09:28)
[2018-07-13] MEDS: Pantoprazole Sodium 20 MG DR Tablet PO SCH (09:28)
[2018-07-13] MEDS: Amiodarone 200 MG Tablet PO SCH ×2 (09:29→21:31)
[2018-07-13] MEDS: Heparin Central Flush 100 UNIT/ML 5 ML Vial IV.FLUSH SCH (10:03)
[2018-07-13] MEDS: Clotrimazole 1% Cream 15 GM Tube TOPICAL SCH ×2 (10:03→22:00)
--- NOTE | 2018-07-13 12:48 | IR ---
EXAM DATE: 07/10/2018 3:24 PM EDT AGE/SEX: 72 years / Male INDICATIONS: Patient with a history of renal disease, needs dialysis catheter exchanged for a new on e. CLINICAL DATA: This is the patient's subsequent encounter. Patient reports that signs and symptoms h ave been present for 2 months and indicates a pain score of 6/10. MEDICAL/SURGICAL HISTORY: . Anginal equivalentDysphagiaChronic kidney diseaseBPHSleep apneaCOPD AFIBESRDDementiaHTNFibromyalgiaHypothyroid . Liver biopsyTURPCoronary artery stent COMPARISON: No prior exams available for comparison. FLUORO TIME (min): 0 IMAGE SERIES: 0 ACCESS SITE: Right internal jugular vein SEDATION TIME (min): 0 . . PROCEDURE: 1. PermaCath removal. The risks, benefits and alternatives to the procedure were explained and verbal and written consent w as obtained. The site was prepped in sterile fashion. Full sterile technique was used, including ca p, mask, sterile gloves and gown and a large sterile sheet. Hand hygiene and 2% chlorhexidine and/or betadine/alcohol prep was utilized per protocol for cutaneous antisepsis. The skin and subcutaneous tissues were infiltrated with local anesthetic solution. The tract was anesthetized with 1% Lidocaine using. The Permcath was dissected from the subcutaneous tissues and easily removed in one piece. Manual pressure was applied to the venotomy site until hem ostasis was obtained. Sterile dressing was applied. The patient tolerated the procedure well and there were no complications. CONCLUSION: 1. Uncomplicated Permcath removal. Electronically signed by: Arcadio Chaves MD 07/13/2018 12:46 PM EDT
[2018-07-13] MEDS: Ertapenem Inj 500 MG in Sodium Chlor 0.9% Inj 100 ML IV.SIG SCH (12:58)
--- NOTE | 2018-07-13 13:20 | P.PNID ---
Subjective Remarks: Patient is sleepy but arousable. Says he feels cold. Notes his buttocks hurts also. Afebrile. Voices no other complaints. Blood culture no growth. Permacath removed. Catheter tip culture no growth. This is a 72-year-old white male who is a long-term resident. The patient has multiple medical problems. He presented to the emergency department on 07/09/2018 with fever. He was recently treated in this hospital for sepsis and transferred back to the long-term facility. He reportedly also had hypotension. He was extremely lethargic also yesterday. The patient has end-stage renal disease and undergoes hemodialysis. This consultation was requested for infectious disease management of sepsis. Past Medical History: PAST MEDICAL HISTORY: Hypertension, diabetes mellitus, dementia, chronic kidney disease stage IV the patient receiving hemodialysis, benign prostatic hypertrophy, COPD, coronary artery disease, hyperlipidemia, hypothyroidism, history of non-ST elevated myocardial infarction, posttraumatic stress disorder, sleep apnea, history of coronary stent, history of TURP, history of nephrostomy. Allergies/Adverse Reactions: Allergies celecoxib [From Celebrex] Allergy (Severe, Verified 07/09/18 11:57) Itching ciprofloxacin Allergy (Severe, Verified 07/09/18 11:57) Itching diatrizoate meglumine Allergy (Severe, Verified 07/09/18 11:57) Itching gadobenic acid Allergy (Severe, Verified 07/09/18 11:57) Itching gadodiamide Allergy (Severe, Verified 07/09/18 11:57) Itching gadoteridol Allergy (Severe, Verified 07/09/18 11:57) Itching iodixanol Allergy (Severe, Verified 07/09/18 11:57) Itching iohexol Allergy (Severe, Verified 07/09/18 11:57) Itching levofloxacin Allergy (Severe, Verified 07/09/18 11:57) Itching ezetimibe [From Zetia] Allergy (Intermediate, Verified 07/09/18 11:57) Itching prochlorperazine [From Compazine] Allergy (Unknown, Verified 05/10/18 20:51) Itching red dye Allergy (Unknown, Verified 05/10/18 20:51) Itching Objective Vital Signs 07/12/18 17:10 07/12/18 18:12 09/20/18 20:00 Temperature 98.6 F 98.3 F Pulse Rate 80 73 Respiratory Rate 20 18 Blood Pressure 119/56 L 105/63 Pulse Oximetry 94 L 94 L 100 07/12/18 23:55 07/13/18 04:00 07/13/18 08:00 Temperature 97.5 F L 98.5 F 97.5 F L Pulse Rate 75 73 72 Respiratory Rate 18 17 18 Blood Pressure 111/53 L 128/62 99/52 L Pulse Oximetry 98 100 94 L Intake & Output 07/12/18 07/13/18 07/13/18 18:59 06:59 18:59 Intake Total 250 / 250 Output Total 1999 Balance -1750 / -1750 Weight 88 kg Intake: IV 250 / 250 Vancomycin Inj 1,000 MG In NS 250 / 250 Inj 250 ML @ 250 mls/hr IV.SIG WITH DIALYSIS [facility] Rx#:[id number] Output: Hemodialysis Amount 1999 Other: # Incontinent Voids 2 07/09/18 12:05 Blood - Peripheral Aerobic Blood Culture - Preliminary No growth in 4 days 07/09/18 12:05 Blood - Peripheral Anaerobic Blood Culture - Preliminary No growth in 4 days 07/09/18 11:55 Blood - Peripheral Aerobic Blood Culture - Preliminary No growth in 4 days 07/09/18 11:55 Blood - Peripheral Anaerobic Blood Culture - Preliminary No growth in 4 days 07/10/18 14:15 Catheter Tip - Central Venous Line Wound Culture - Final No growth in 48 hours 07/09/18 15:00 Catheterized Urine Urine Culture - Final Escherichia coli ESBL positive Lab - Hematology Results 07/12/18 07/12/18 05:47 18:35 WBC 10.5 9.2 RBC 2.86 L 2.65 L Hgb 8.4 L 7.8 L Hct 26.3 L 24.3 L MCV 91.8 91.8 MCH 29.5 29.4 MCHC 32.1 32.0 RDW 15.9 15.7 Plt Count 317 136 L D MPV 7.5 8.5 Prelim Diff (Auto) Slide review pending Manual diff required Neut % (Auto) 63.3 Lymph % (Auto) 19.4 P[place] % (Auto) 12.8 H Eos % (Auto) 3.6 Baso % (Auto) 0.9 Neut # (Auto) 6.6 Lymph # (Auto) 2.0 P[place] # (Auto) 1.3 H Eos # (Auto) 0.4 Baso # (Auto) 0.1 WBC Differential Manual diff final Manual diff final Seg Neuts % (Manual) 55 61 Band Neuts % (Manual) 7 H 21 H Lymphocytes % (Manual) 22 5 L Monocytes % (Manual) 8 6 Eosinophils % (Manual) 2 3 Metamyelocytes % (Man) 4 H 2 H Myelocytes % (Man) 2 H 1 H Promyelocytes % (Man) 1 H Abs Neuts (Manual) 7.1 7.9 H Differential Comment . . Toxic Granulation 2+ H Platelet Estimate Normal Low L Platelet Morphology Normal Normal Acanthocytes (Spur) Occ H Lab - Chemistry Results 07/11/18 07/11/18 07/11/18 17:02 17:40 17:46 Sodium Potassium Chloride Carbon Dioxide Anion Gap BUN Creatinine Estimated GFR POC Glucose 46 L* 142 H Random Glucose 120 H Calcium Phosphorus Magnesium Total Bilirubin AST ALT Alkaline Phosphatase Troponin I Total Protein Albumin 07/11/18 07/12/18 07/12/18 21:25 05:47 08:26 Sodium 139 Potassium 3.5 Chloride 99 Carbon Dioxide 30.5 Anion Gap 10 BUN 26 H Creatinine 5.26 H Estimated GFR 11 L POC Glucose 87 73 Random Glucose 56 L Calcium 7.8 L Phosphorus 2.2 L Magnesium 1.7 Total Bilirubin 0.3 AST 37 ALT 23 Alkaline Phosphatase 163 H Troponin I Total Protein 5.5 L Albumin 1.6 L 07/12/18 07/12/18 07/12/18 09:18 11:50 18:08 Sodium Potassium Chloride Carbon Dioxide Anion Gap BUN Creatinine Estimated GFR POC Glucose 80 92 Random Glucose Calcium Phosphorus Magnesium Total Bilirubin AST ALT Alkaline Phosphatase Troponin I Less than 0.02 L Total Protein Albumin 07/12/18 07/13/18 07/13/18 18:35 07:36 13:05 Sodium 138 Potassium 3.9 Chloride 102 Carbon Dioxide 28.9 Anion Gap 7 BUN 13 Creatinine 3.40 H Estimated GFR 18 L POC Glucose 86 111 H Random Glucose 138 H Calcium 7.6 L Phosphorus Magnesium Total Bilirubin 0.3 AST 34 ALT 23 Alkaline Phosphatase 182 H Troponin I Total Protein 5.4 L Albumin 1.6 L Imaging: ITS Impressions Chest X-Ray 07/09/18 11:59 CONCLUSION: Dialysis catheter in good position. The lungs are clear. Catheter Placement 07/10/18 00:00 CONCLUSION: 1. Uncomplicated line placement as above. Tube Removal 07/10/18 00:00 CONCLUSION: 1. Uncomplicated Permcath removal. Wrist X-Ray 07/13/18 00:00 CONCLUSION: 1. Multiple carpal osseous cysts as above. These are basically stable and overtly benign. 2. However, there appears to be some interval widening of the scapholunate joint with questionable regional osseous demineralization or early erosion on the scaphoid side of the joint. Findings could be due to previous trauma or crystalline arthropathy such as gouty arthritis. 3. Possible associated injury to the scapholunate ligament. If there is a clinical concern, MRI of the wrist could be performed for further characterization Physical Exam: PHYSICAL EXAMINATION: GENERAL: No acute distress. Awake and alert. HEENT: Head is atraumatic. Extraocular muscles grossly intact. Pupils reactive to light. No icterus. Oropharynx dry mucosa. No visible lesions. NECK: Supple. No adenopathy. LUNGS: Decreased breath sounds. HEART: Regular S1, S2. Heart sounds are distant. ABDOMEN: Bowel sounds present. Soft, no tenderness. BUTTOCK: Dry excoriated ulcerated lesion with erythema at both buttocks. No visible drainage. EXTREMITIES: No clubbing, cyanosis or edema. Superficial pressure ulceration at the left heel. SKIN: No rash. NEUROLOGIC: Non focal. PSYCHIATRIC: Calm and cooperative. Assessment and Plan - Plan IMPRESSION: Sepsis, likely arising from urinary tract infection versus dialysis catheter infection. Gram negative ESBL e. coli. RECOMMENDATIONS: 1. Continue Ertapenem. 2. Stop vancomycin. 3. Repeat urine culture on Monday. 4. Monitor temp and clinical response. I will be off this weekend. Please call ID vibration engineer if needed.
--- NOTE | 2018-07-13 17:10 | P.PNNP ---
Subjective Interval history: He is communicative. Not in distress. Main complaint is right hand/arm pain. Physical Exam Vital signs: Vital Signs 07/12/18 17:10 07/12/18 18:12 07/12/18 20:00 Temperature 98.6 F 98.3 F Pulse Rate 80 73 Respiratory Rate 20 18 Blood Pressure 119/56 L 105/63 Pulse Oximetry 94 L 94 L 100 07/12/18 23:55 07/13/18 04:00 07/13/18 08:00 Temperature 97.5 F L 98.5 F 97.5 F L Pulse Rate 75 73 72 Respiratory Rate 18 17 18 Blood Pressure 111/53 L 128/62 99/52 L Pulse Oximetry 98 100 94 L 07/13/18 12:00 07/13/18 16:00 Temperature 97.3 F L 97.8 F Pulse Rate 68 76 Respiratory Rate 18 18 Blood Pressure 134/61 125/60 Pulse Oximetry 100 95 Intake & Output 07/12/18 07/13/18 07/13/18 18:59 06:59 18:59 Intake Total 250 / 250 Output Total 1999 Balance -1750 / -1750 Weight 88 kg Intake: IV 250 / 250 Vancomycin Inj 1,000 MG In NS 250 / 250 Inj 250 ML @ 250 mls/hr IV.SIG WITH DIALYSIS [facility] Rx#:[id number] Output: Hemodialysis Amount 1999 Other: # Incontinent Voids 2 Narrative: GENERAL: awake, alert. Communicative. Complains of right wrist pain. SKIN: Warm and dry. EYES: EOM grossly I. ENT: No nasal bleeding or discharge. Mucous membranes pink and moist. NECK: Trachea midline. No JVD. CARDIOVASCULAR: Regular rate and rhythm. Grossly normal perfusion RESPIRATORY: CTAB, diminished. Normal rate GASTROINTESTINAL: Abdomen soft, nontender. Normal BS MUSCULOSKELETAL: Extremities without edema. - Urinary Catheter Management Indwelling Urethral Catheter Cath placed during this visit: yes, but has since been removed by the nurse Reason for continuing: Acute urinary retention Insertion date: 07/09/18 Insertion time: 17:30 Removal date: 07/11/18 Removal time: 15:35 Assessment and Plan - Assessment (1) ESRD (end stage renal disease) on dialysis Code(s): N18.6 - End stage renal disease; Z99.2 - Dependence on renal dialysis Status: Acute Plan: Dialysis will be TTS. Monitor fluid and electrolytes. Urine culture is positive for ESBL positive E.coli. On Invanz. ID on the case. Vancomycin has been stopped. (2) Sepsis Code(s): A41.9 - Sepsis, unspecified organism Status: Acute Plan: UTI with sepsis? ESBL positive E.coli from urine. On Invanz. Vancomycin has been stopped. PermCath removed. Currently has a VasCath. Dialysis tomorrow. PermCath possibly Monday if cleared by ID. . (3) Anemia of renal disease Code(s): D63.1 - Anemia in chronic kidney disease Status: Acute Plan: Epogen with dialysis. (4) Atrial fibrillation Code(s): I48.91 - Unspecified atrial fibrillation Status: Acute Plan: Monitor heart rate. Monitor on telemetry
--- NOTE | 2018-07-13 18:56 | P.PNIM ---
Subjective Interval history: Mr. Monteiro was afebrile with stable VS overnight. Per nursing staff, patient has been doing well and has generally been agreeable with care; he refused Renvela x1 but otherwise has been compliant with medications. He reported R hand pain but has not reported other concerns. On interview, patient reported that he had right hand pain but that he did not want me to evaluate it fully due to my "playing games." He did not report other concerns/needs. Physical Exam Vital signs: Vital Signs 07/12/18 20:00 07/12/18 23:55 07/13/18 04:00 Temperature 98.3 F 97.5 F L 98.5 F Pulse Rate 73 75 73 Respiratory Rate 18 18 17 Blood Pressure 105/63 111/53 L 128/62 Pulse Oximetry 100 98 100 07/13/18 08:00 07/13/18 12:00 07/13/18 16:00 Temperature 97.5 F L 97.3 F L 97.8 F Pulse Rate 72 68 76 Respiratory Rate 18 18 18 Blood Pressure 99/52 L 134/61 125/60 Pulse Oximetry 94 L 100 95 Intake & Output 07/12/18 07/13/18 07/13/18 18:59 06:59 18:59 Intake Total 250 / 250 Output Total 1999 Balance -1750 / -1750 Weight 88 kg Intake: IV 250 / 250 Vancomycin Inj 1,000 MG In NS 250 / 250 Inj 250 ML @ 250 mls/hr IV.SIG WITH [facility]IALYSIS [facility] Rx#:[id number] Output: Hemodialysis Amount 1999 Other: # Incontinent Voids 2 Narrative: GENERAL: no visible distress SKIN: Warm and dry. EYES: EOM grossly I. ENT: No nasal bleeding or discharge. Mucous membranes pink and moist. CARDIOVASCULAR: RRR; grossly normal perfusion RESPIRATORY: CTAB, diminished. Normal rate GASTROINTESTINAL: Abdomen soft, nontender. Normal BS MUSCULOSKELETAL: Extremities without edema. R hand without obvious swelling; impaired ability to fully dorsiflex 2nd-3rd digits due to pain; not fully assessed due to patient reluctance for me to inspect. NEUROLOGICAL: No obvious cranial nerve deficits. Assessment of peripheral motor /sensory function inhibited by agitation. Normal speech PSYCHIATRIC: Patient became angry during exam; not inclined for me to examine - Urinary Catheter Management Indwelling Urethral Catheter Cath placed during this visit: yes, but has since been removed by the nurse Reason for continuing: Acute urinary retention Insertion date: 07/09/18 Insertion time: 17:30 Removal date: 07/11/18 Removal time: 15:35 Results - Labs CBC & Chem 7: 07/12/18 18:35 07/12/18 18:35 Laboratory Results - last 24 hr 07/12/18 07/12/18 07/12/18 18:08 18:35 18:35 WBC 9.2 RBC 2.65 L Hgb 7.8 L Hct 24.3 L MCV 91.8 MCH 29.4 MCHC 32.0 RDW 15.7 Plt Count 136 L D MPV 8.5 Prelim Diff (Auto) Manual diff required WBC Differential Manual diff final Seg Neuts % (Manual) 61 Band Neuts % (Manual) 21 H Lymphocytes % (Manual) 5 L Monocytes % (Manual) 6 Eosinophils % (Manual) 3 Metamyelocytes % (Man) 2 H Myelocytes % (Man) 1 H Promyelocytes % (Man) 1 H Abs Neuts (Manual) 7.9 H Differential Comment . Toxic Granulation 2+ H Platelet Estimate Low L Platelet Morphology Normal Acanthocytes (Spur) Occ H Sodium 138 Potassium 3.9 Chloride 102 Carbon Dioxide 28.9 Anion Gap 7 BUN 13 Creatinine 3.40 H Estimated GFR 18 L POC Glucose Random Glucose 138 H Calcium 7.6 L Total Bilirubin 0.3 AST 34 ALT 23 Alkaline Phosphatase 182 H Troponin I Less than 0.02 L Total Protein 5.4 L Albumin 1.6 L 07/13/18 07/13/18 07:36 13:05 WBC RBC Hgb Hct MCV MCH MCHC RDW Plt Count MPV Prelim Diff (Auto) WBC Differential Seg Neuts % (Manual) Band Neuts % (Manual) Lymphocytes % (Manual) Monocytes % (Manual) Eosinophils % (Manual) Metamyelocytes % (Man) Myelocytes % (Man) Promyelocytes % (Man) Abs Neuts (Manual) Differential Comment Toxic Granulation Platelet Estimate Platelet Morphology Acanthocytes (Spur) Sodium Potassium Chloride Carbon Dioxide Anion Gap BUN Creatinine Estimated GFR POC Glucose 86 111 H Random Glucose Calcium Total Bilirubin AST ALT Alkaline Phosphatase Troponin I Total Protein Albumin Microbiology 07/09/18 12:05 Blood - Peripheral Aerobic Blood Culture - Preliminary No growth in 4 days 07/09/18 12:05 Blood - Peripheral Anaerobic Blood Culture - Preliminary No growth in 4 days 07/09/18 11:55 Blood - Peripheral Aerobic Blood Culture - Preliminary No growth in 4 days 07/09/18 11:55 Blood - Peripheral Anaerobic Blood Culture - Preliminary No growth in 4 days - Imaging Impressions Tube Removal 07/10/18 00:00 CONCLUSION: 1. Uncomplicated Permcath removal. Wrist X-Ray 07/13/18 00:00 CONCLUSION: 1. Multiple carpal osseous cysts as above. These are basically stable and overtly benign. 2. However, there appears to be some interval widening of the scapholunate joint with questionable regional osseous demineralization or early erosion on the scaphoid side of the joint. Findings could be due to previous trauma or crystalline arthropathy such as gouty arthritis. 3. Possible associated injury to the scapholunate ligament. If there is a clinical concern, MRI of the wrist could be performed for further characterization - Procedures NONE Assessment and Plan - Assessment (1) ESBL (extended spectrum beta-lactamase) producing bacteria infection Code(s): A49.9 - Bacterial infection, unspecified; Z16.12 - Extended spectrum beta lactamase (ESBL) resistance Status: Acute (2) Sepsis Code(s): A41.9 - Sepsis, unspecified organism Status: Acute (3) Acute alteration in mental status Code(s): R41.82 - Altered mental status, unspecified Status: Acute (4) COPD (chronic obstructive pulmonary disease) Code(s): J44.9 - Chronic obstructive pulmonary disease, unspecified Status: Acute - Plan Mr. Monteiro is a 72 yo male with: Severe Sepsis on admission Acute UTI with pyuria -Patient with leukocytosis of 17, temperature 100.4, lactate 2.3, gross pus in urine as described by ED physician, urinary retention Urine culture 07/09- ESBL UTI Blood cultures negative x4 days (07/09) Central venous catheter line negative x2 days (07/10) -ID consulted -Stop Zosyn/Vancomycin -Ertapenem adjusted for renal function -Repeat urine culture Monday -Urinary catheter replaced 07/10 End-stage renal disease. Impression: On chronic dialysis TTS. Permacath removed 07/10 -Nephrology consulted -Last dialysis 07/12; 4 L removed -Possible replacement Monday if cleared by ID Confusion/Altered mental status Impression: Metabolic encephalopathy on admission resolved but patient confused at baseline. Patient agitated after dialysis yesterday; VS normal. Clear speech ; no focal CN or peripheral defects. CBC/CMP/troponin/ reassuring. PMH COPD. s/ p Haldol 1mg x2 IM 07/13- angry, not inclined for examination but appears in no distress -Will monitor Cardiovascular Chronic systolic heart failure Atrial fibrillation Impression: Rate controlled -Continue Carvedilol 3.125mg BID -Continue ASA 81mg Holding anti-coagulation due to possible procedure Right hand pain Impression: Unclear etiology. Pain reported 07/12-07/13. No radius/ulnar pain. Wrist XR 07/13- multiple carpal osseous cysts; stable/benign. Some scapholunate joint widening with ? osseous de-mineralization or early erosion on scaphoid side of joint. Possible associated scapholunate ligament injury- if concern MRI wrist could be performed -Will check MR wrist -Will continue current pain medications (morphine PRN) Anemia -Epogen with dialysis Stage I/2 sacral ulcer -Wound care consulted Diabetes mellitus Insulin and diabetic diet -Levemir 7 U BID -Watch hypoglycemia COPD History of WERNER -Continue home meds Hypothyroidism. Chronic -Continue home meds GERD Chronic -Continue home medication PT consulted -Rehab recommended DVT PPX -Bilateral SCD's -Will consider chemical PPX based on Permacath plans Code Status: Full code
[2018-07-13] MEDS: oxyCODONE/Acetaminophen 10/325 Tablet PO PRN (21:30)
[2018-07-14] MEDS: Morphine Inj 4 MG/ML Vial IV.PUSH PRN (00:06)
[2018-07-14] MEDS: Carboxymethylcellulose 0.5% Opth Drops 15 ML Bottle EACH EYE SCH ×4 (06:15→22:07)
[2018-07-14] MEDS: oxyCODONE/Acetaminophen 10/325 Tablet PO PRN ×3 (06:16→22:08)
[2018-07-14] MEDS: Levothyroxine 75 MCG Tablet PO SCH (06:16)
[2018-07-14] MEDS: Amiodarone 200 MG Tablet PO SCH ×2 (09:47→22:08)
[2018-07-14] MEDS: Pantoprazole Sodium 20 MG DR Tablet PO SCH (09:47)
[2018-07-14] MEDS: Insulin NovoLOG Aspart Correctional Sugar Inj SQ SCH ×4 (09:51→22:07)
[2018-07-14] MEDS: Clotrimazole 1% Cream 15 GM Tube TOPICAL SCH ×2 (09:51→22:07)
[2018-07-14] MEDS: Tiotropium Bromide 18 MCG/ACT Inhaler INH SCH (09:52)
[2018-07-14] MEDS: Polyethylene Glycol 3350 17 GM Packet PO SCH ×2 (09:52→22:08)
[2018-07-14 10:13] LABS: Carbon Dioxide 30.1 meq/L (21.0-32.0); Potassium 3.7 meq/L (3.5-5.1)
[2018-07-14 10:14] LABS: Calcium 7.8 mg/dL (8.5-10.1)
--- NOTE | 2018-07-14 10:22 | P.PNNP ---
Subjective Interval history: patient was seen during dialysis. ON 3K, UF goal 1500, BFR is 250 ml/min, needs new dialysis catheter. Physical Exam Vital signs: Vital Signs 07/13/18 12:00 07/13/18 16:00 07/13/18 20:00 Temperature 97.3 F L 97.8 F 97.3 F L Pulse Rate 68 76 76 Respiratory Rate 18 18 Blood Pressure 134/61 125/60 136/63 Pulse Oximetry 100 95 98 07/14/18 00:00 07/14/18 04:00 07/14/18 08:00 Temperature 98 F 97.8 F 97.9 F Pulse Rate 75 71 73 Respiratory Rate Blood Pressure 125/58 L 135/74 123/59 L Pulse Oximetry 98 98 96 07/14/18 08:34 Temperature Pulse Rate Respiratory Rate Blood Pressure Pulse Oximetry 98 Intake & Output 07/13/18 07/14/18 07/14/18 18:59 06:59 18:59 Weight 89.5 kg Other: # Incontinent Voids 2 Date of Last Bowel Movement 07/13/18 Narrative: GENERAL: no visible distress SKIN: Warm and dry. EYES: EOM grossly I. ENT: No nasal bleeding or discharge. Mucous membranes pink and moist. CARDIOVASCULAR: RRR; grossly normal perfusion RESPIRATORY: CTA. GASTROINTESTINAL: Abdomen soft, nontender. Normal BS MUSCULOSKELETAL: Extremities without edema. R hand without obvious swelling; impaired ability to fully dorsiflex 2nd-3rd digits due to pain; not fully assessed due to patient reluctance for me to inspect. NEUROLOGICAL: awake, alert. - Urinary Catheter Management Indwelling Urethral Catheter Cath placed during this visit: yes, but has since been removed by the nurse Reason for continuing: Acute urinary retention Insertion date: 07/09/18 Insertion time: 17:30 Removal date: 07/11/18 Removal time: 15:35 Assessment and Plan - Assessment (1) ESRD (end stage renal disease) on dialysis Code(s): N18.6 - End stage renal disease; Z99.2 - Dependence on renal dialysis Status: Acute Plan: Dialysis will be TTS. Monitor fluid and electrolytes. Urine culture is positive for ESBL positive E.coli. On Invanz. ID on the case. Vancomycin has been stopped. Will have VasCath removed today after dialysis. He will need PermCath on Monday. (2) Sepsis Code(s): A41.9 - Sepsis, unspecified organism Status: Acute Plan: UTI with sepsis? ESBL positive E.coli from urine. On Invanz. Vancomycin has been stopped. PermCath removed. Currently has a VasCath. . (3) Anemia of renal disease Code(s): D63.1 - Anemia in chronic kidney disease Status: Acute Plan: Epogen with dialysis. (4) Atrial fibrillation Code(s): I48.91 - Unspecified atrial fibrillation Status: Acute Plan: Monitor heart rate. Monitor on telemetry
[2018-07-14 11:21] LABS: Baso # (Auto) 0.2 th/mm3 (0.0-0.2); Baso % (Auto) 1.9 % (0.0-2.0); Eos # (Auto) 0.2 th/mm3 (0.0-0.4); Eos % (Auto) 2.3 % (0.0-4.0); Hematocrit 26.3 % (39.0-51.0); Hemoglobin 8.5 gm/dL (13.0-17.0); Lymph # (Auto) 2.3 th/mm3 (1.0-4.8); Lymph % (Auto) 22.1 % (9.0-44.0); Mean Corpuscular HGB Conc 32.5 % (32.0-36.0); Mean Corpuscular Hemoglobin 29.8 pg (27.0-34.0); Mean Corpuscular Volume 91.7 fL (80.0-100.0); Mean Platelet Volume 7.8 fL (7.0-11.0); Mono # (Auto) 0.8 th/mm3 (0.0-0.9); Mono % (Auto) 7.2 % (0.0-8.0); Neut # (Auto) 6.9 th/mm3 (1.8-7.7); Neut % (Auto) 66.5 % (16.0-70.0); Platelet Count 316 th/mm3 (150-450); Red Blood Count 2.87 mil/mm3 (4.50-5.90); Red Cell Distribution Width 15.4 % (11.6-17.2); White Blood Count 10.4 th/mm3 (4.0-11.0)
[2018-07-14 12:19] LABS: Eosinophils 1 % (0-4); Lymphocytes 18 % (9-44); Metamyelocytes 2 % (0-1); Monocytes 7 % (0-8); Myelocytes 2 % (0-0); Ovalocytes 1+; Platelet Estimate Normal (Normal); Platelet Morphology Normal (Normal); Promyelocyte 1 % (0-0); Toxic Granulation 2+
[2018-07-14] MEDS: Heparin Central Flush 100 UNIT/ML 5 ML Vial IV.FLUSH SCH (13:42)
[2018-07-14] MEDS: Ertapenem Inj 500 MG in Sodium Chlor 0.9% Inj 100 ML IV.SIG SCH (13:58)
--- NOTE | 2018-07-14 16:05 | P.PNIM ---
Subjective Interval history: Mr. Monteiro was afebrile with stable VS overnight. Per EMR, 2 voids and 1 BM overnight. 1 L dialysis output today. Patient stated to "get ...away from me" when questioned regarding how he was doing. Patient with clear speech and made eye contact. Patient subsequently would not answer questioning. Per nursing staff, patient has had intermittent agitation today, and was seen with significant buttock/back rash. Patient has been resistant to some care and has not been eating much. Physical Exam Vital signs: Vital Signs 07/13/18 20:00 07/14/18 00:00 07/14/18 04:00 Temperature 97.3 F L 98 F 97.8 F Pulse Rate 76 75 71 Respiratory Rate 18 18 18 Blood Pressure 136/63 125/58 L 135/74 Pulse Oximetry 98 98 98 07/14/18 08:00 07/14/18 08:34 07/14/18 13:50 Temperature 97.9 F 97.4 F L Pulse Rate 73 81 Respiratory Rate 19 19 Blood Pressure 123/59 L 113/58 L Pulse Oximetry 96 98 96 Intake & Output 07/13/18 07/14/18 07/14/18 18:59 06:59 18:59 Intake Total 100 / 100 Output Total 1000 / 1000 Balance 100 / 100 -1000 / -1000 Weight 89.5 kg Intake: IV 100 / 100 INVanz Inj 500 MG In NS Inj 100 100 / 100 ML @ 100 mls/hr IV.SIG Q24H WILFREDO Rx#:[id number] Output: Hemodialysis Amount 1000 / 1000 Other: # Incontinent Voids 2 Date of Last Bowel Movement 07/13/18 07/13/18 Narrative: GENERAL: no visible distress SKIN: Warm and dry. Genital area erythema/suggestive of fungal infection EYES: EOM grossly I. ENT: Mucous membranes pink and moist. CARDIOVASCULAR: Patient would not allow exam; grossly normal perfusion RESPIRATORY: Normal rate; patient would not allow auscultation GASTROINTESTINAL: Patient deferred exam NEUROLOGICAL: No obvious cranial nerve deficits; clear speech. Normal ROM of upper extremities PSYCHIATRIC: Patient agitated; would not answer questions - Urinary Catheter Management Indwelling Urethral Catheter Cath placed during this visit: yes, but has since been removed by the nurse Reason for continuing: Acute urinary retention Insertion date: 07/09/18 Insertion time: 17:30 Removal date: 07/11/18 Removal time: 15:35 Results - Labs CBC & Chem 7: 07/14/18 11:15 07/14/18 08:30 Laboratory Results - last 24 hr 07/13/18 07/14/18 07/14/18 19:50 05:30 05:30 WBC Not Reportable RBC Not Reportable Hgb Not Reportable Hct Not Reportable MCV Not Reportable MCH Not Reportable MCHC Not Reportable RDW Not Reportable Plt Count Not Reportable MPV Not Reportable Prelim Diff (Auto) Neut % (Auto) Not Reportable Lymph % (Auto) Not Reportable [place] % (Auto) Not Reportable Eos % (Auto) Not Reportable Baso % (Auto) Not Reportable Neut # (Auto) Not Reportable Lymph # (Auto) Not Reportable [place] # (Auto) Not Reportable Eos # (Auto) Not Reportable Baso # (Auto) Not Reportable WBC Differential . Seg Neuts % (Manual) Band Neuts % (Manual) Lymphocytes % (Manual) Monocytes % (Manual) Eosinophils % (Manual) Basophils % (Manual) Metamyelocytes % (Man) Myelocytes % (Man) Promyelocytes % (Man) Abs Neuts (Manual) Differential Comment . Toxic Granulation Platelet Estimate Platelet Morphology Ovalocytes Sodium Potassium Ceramic Worker Chloride Ceramic Worker Carbon Dioxide Ceramic Worker Anion Gap Ceramic Worker BUN Ceramic Worker Creatinine Ceramic Worker Estimated GFR Ceramic Worker POC Glucose 96 Random Glucose Ceramic Worker Calcium Ceramic Worker 07/14/18 07/14/18 07/14/18 07:26 08:30 11:15 WBC 10.4 RBC 2.87 L Hgb 8.5 L Hct 26.3 L MCV 91.7 MCH 29.8 MCHC 32.5 RDW 15.4 Plt Count 316 D MPV 7.8 Prelim Diff (Auto) Slide review pending Neut % (Auto) 66.5 Lymph % (Auto) 22.1 [place] % (Auto) 7.2 Eos % (Auto) 2.3 Baso % (Auto) 1.9 Neut # (Auto) 6.9 Lymph # (Auto) 2.3 [place] # (Auto) 0.8 Eos # (Auto) 0.2 Baso # (Auto) 0.2 WBC Differential Manual diff final Seg Neuts % (Manual) 63 Band Neuts % (Manual) 5 Lymphocytes % (Manual) 18 Monocytes % (Manual) 7 Eosinophils % (Manual) 1 Basophils % (Manual) 1 Metamyelocytes % (Man) 2 H Myelocytes % (Man) 2 H Promyelocytes % (Man) 1 H Abs Neuts (Manual) 7.6 Differential Comment . Toxic Granulation 2+ H Platelet Estimate Normal Platelet Morphology Normal Ovalocytes 1+ H Sodium 140 Potassium 3.7 Chloride 102 Carbon Dioxide 30.1 Anion Gap 8 BUN 20 H Creatinine 4.82 H Estimated GFR 12 L POC Glucose 142 H Random Glucose 132 H Calcium 7.8 L 07/14/18 11:58 WBC RBC Hgb Hct MCV MCH MCHC RDW Plt Count MPV Prelim Diff (Auto) Neut % (Auto) Lymph % (Auto) [place] % (Auto) Eos % (Auto) Baso % (Auto) Neut # (Auto) Lymph # (Auto) [place] # (Auto) Eos # (Auto) Baso # (Auto) WBC Differential Seg Neuts % (Manual) Band Neuts % (Manual) Lymphocytes % (Manual) Monocytes % (Manual) Eosinophils % (Manual) Basophils % (Manual) Metamyelocytes % (Man) Myelocytes % (Man) Promyelocytes % (Man) Abs Neuts (Manual) Differential Comment Toxic Granulation Platelet Estimate Platelet Morphology Ovalocytes Sodium Potassium Chloride Carbon Dioxide Anion Gap BUN Creatinine Estimated GFR POC Glucose 128 H Random Glucose Calcium Microbiology 07/09/18 12:05 Blood - Peripheral Aerobic Blood Culture - Final No growth in 5 days 07/09/18 12:05 Blood - Peripheral Anaerobic Blood Culture - Final No growth in 5 days 07/09/18 11:55 Blood - Peripheral Aerobic Blood Culture - Final No growth in 5 days 07/09/18 11:55 Blood - Peripheral Anaerobic Blood Culture - Final No growth in 5 days - Procedures NONE Assessment and Plan - Assessment (1) ESBL (extended spectrum beta-lactamase) producing bacteria infection Code(s): A49.9 - Bacterial infection, unspecified; Z16.12 - Extended spectrum beta lactamase (ESBL) resistance Status: Acute (2) Sepsis Code(s): A41.9 - Sepsis, unspecified organism Status: Acute (3) Acute alteration in mental status Code(s): R41.82 - Altered mental status, unspecified Status: Acute (4) COPD (chronic obstructive pulmonary disease) Code(s): J44.9 - Chronic obstructive pulmonary disease, unspecified Status: Acute (5) Acute on chronic kidney failure Code(s): N17.9 - Acute kidney failure, unspecified; N18.9 - Chronic kidney disease, unspecified Status: Acute (6) Acute UTI Code(s): N39.0 - Urinary tract infection, site not specified Status: Acute (7) Anemia of renal disease Code(s): D63.1 - Anemia in chronic kidney disease Status: Acute (8) ESRD (end stage renal disease) on dialysis Code(s): N18.6 - End stage renal disease; Z99.2 - Dependence on renal dialysis Status: Acute (9) Septic shock Code(s): A41.9 - Sepsis, unspecified organism; R65.21 - Severe sepsis with septic shock Status: Acute - Plan Mr. Monteiro is a 72 yo male with: Severe Sepsis on admission Acute UTI with pyuria -On admission, patient with leukocytosis of 17, temperature 100.4, lactate 2.3, gross pus in urine as described by ED physician, urinary retention Urine culture 07/09- ESBL UTI Blood cultures negative x5 days (07/09) Central venous catheter line negative x2 days (07/10) -ID consulted -Stop Zosyn/Vancomycin -Ertapenem adjusted for renal function -Repeat urine culture Monday -Urinary catheter replaced 07/10 End-stage renal disease. Impression: On chronic dialysis TTS. Permacath removed 07/10 -Nephrology consulted -Last dialysis today; 1 L removed 07/14 -Possible Permacath replacement Monday if cleared by ID Neuro Dementia Confusion/Altered mental status Poor oral intake Impression: Metabolic encephalopathy on admission resolved but patient confused at baseline. Patient agitated after dialysis 2 days prior- work-up was negative (VS normal. Clear speech; no focal CN or peripheral defects. CBC/CMP/troponin/ reassuring. PMH COPD. s/p Haldol 1mg x2 IM) 07/13- angry, not inclined for examination but appears in no distress 07/14- continued anger; would not allow full exam -Will monitor -Will give PRN Seroquel HS for agitation -Will consider Psychiatry consult vs starting SSRI to evaluate for possible underlying mood disorder based on further EMR review -Continue to monitor VS Cardiovascular Chronic systolic heart failure Atrial fibrillation Impression: Rate controlled -Continue Carvedilol 3.125mg BID -Continue ASA 81mg Holding anti-coagulation due to possible procedure Right hand pain Impression: Unclear etiology. Pain reported 07/12-07/13. No radius/ulnar pain. - exam deferred. Wrist XR 07/13- multiple carpal osseous cysts; stable/benign. Some scapholunate joint widening with ? osseous de-mineralization or early erosion on scaphoid side of joint. Possible associated scapholunate ligament injury- if concern MRI wrist could be performed -Will check MR wrist -Will continue current pain medications (morphine PRN) Anemia -Epogen with dialysis Stage I/2 sacral ulcer -Wound care consulted; will reconsult per nursing recommendation Diabetes mellitus Insulin and diabetic diet -Levemir 7 U BID -Watch hypoglycemia COPD History of WERNER -Continue home meds Hypothyroidism. Chronic -Continue home meds GERD Chronic -Continue home medication PT consulted -Rehab recommended DVT PPX -Bilateral SCD's -Will consider chemical PPX based on Permacath plans Code Status: Full code Discharge Planning: Discharge planning per Case management (5) Acute on chronic kidney failure Qualifiers: Acute renal failure type: unspecified Chronic kidney disease stage: stage 3 ( moderate) Qualified Code(s): N17.9 - Acute kidney failure, unspecified; N18.3 - Chronic kidney disease, stage 3 (moderate)
[2018-07-14] MEDS ORDERED: QUEtiapine 25 MG Tablet PO PRN (20:45)
[2018-07-15] MEDS: Carboxymethylcellulose 0.5% Opth Drops 15 ML Bottle EACH EYE SCH ×4 (05:06→21:49)
[2018-07-15] MEDS: oxyCODONE/Acetaminophen 10/325 Tablet PO PRN ×2 (06:12→21:46)
[2018-07-15] MEDS: Levothyroxine 75 MCG Tablet PO SCH (06:15)
[2018-07-15] MEDS: Pantoprazole Sodium 20 MG DR Tablet PO SCH (08:24)
[2018-07-15] MEDS: Amiodarone 200 MG Tablet PO SCH ×2 (08:24→21:45)
[2018-07-15] MEDS: Clotrimazole 1% Cream 15 GM Tube TOPICAL SCH ×2 (08:25→21:49)
[2018-07-15] MEDS: Tiotropium Bromide 18 MCG/ACT Inhaler INH SCH (08:25)
[2018-07-15] MEDS: Heparin Central Flush 100 UNIT/ML 5 ML Vial IV.FLUSH SCH (08:25)
[2018-07-15] MEDS: Polyethylene Glycol 3350 17 GM Packet PO SCH ×2 (08:26→21:49)
[2018-07-15] MEDS: Insulin NovoLOG Aspart Correctional Sugar Inj SQ SCH ×4 (08:28→21:49)
[2018-07-15 10:07] LABS: Baso # (Auto) 0.1 th/mm3 (0.0-0.2); Baso % (Auto) 0.7 % (0.0-2.0); Eos # (Auto) 0.3 th/mm3 (0.0-0.4); Eos % (Auto) 2.3 % (0.0-4.0); Hematocrit 27.8 % (39.0-51.0); Hemoglobin 8.5 gm/dL (13.0-17.0); Lymph % (Auto) 17.8 % (9.0-44.0); Mean Corpuscular Hemoglobin 28.5 pg (27.0-34.0); Mean Corpuscular Volume 93.4 fL (80.0-100.0); Mean Platelet Volume 7.5 fL (7.0-11.0); Mono # (Auto) 1.1 th/mm3 (0.0-0.9); Mono % (Auto) 9.7 % (0.0-8.0); Neut # (Auto) 7.9 th/mm3 (1.8-7.7); Neut % (Auto) 69.5 % (16.0-70.0); Platelet Count 310 th/mm3 (150-450); Red Blood Count 2.98 mil/mm3 (4.50-5.90); Red Cell Distribution Width 16.1 % (11.6-17.2); White Blood Count 11.3 th/mm3 (4.0-11.0)
[2018-07-15 10:11] LABS: Mean Corpuscular HGB Conc 30.5 % (32.0-36.0)
[2018-07-15 10:42] LABS: Calcium 8.1 mg/dL (8.5-10.1); Carbon Dioxide 31.5 meq/L (21.0-32.0); Potassium 3.7 meq/L (3.5-5.1)
[2018-07-15 10:56] LABS: Eosinophils 2 % (0-4); Lymphocytes 17 % (9-44); Metamyelocytes 2 % (0-1); Monocytes 4 % (0-8); Myelocytes 1 % (0-0); Platelet Estimate Normal (Normal); Platelet Morphology Normal (Normal)
[2018-07-15 10:57] LABS: Toxic Granulation 1+
--- NOTE | 2018-07-15 11:54 | P.PNNP ---
Subjective Interval history: patient is comfortably sleeping. Had dialysis yesterday. We will have dialysis catheter exchange tomorrow: Vascath which is poorly functional will have to be replaced by PermCath. IR consulted for the same. Physical Exam Vital signs: Vital Signs 07/14/18 13:50 07/14/18 20:00 07/15/18 04:00 Temperature 97.4 F L 97.4 F L 97.0 F L Pulse Rate 81 80 84 Respiratory Rate 19 17 18 Blood Pressure 113/58 L 136/64 145/65 H Pulse Oximetry 96 98 98 07/15/18 08:00 Temperature 97.5 F L Pulse Rate 82 Respiratory Rate 18 Blood Pressure 112/55 L Pulse Oximetry 96 Intake & Output 07/14/18 07/15/18 07/15/18 18:59 06:59 18:59 Intake Total 150 / 150 Output Total 1000 / 1000 Balance -1000 / -1000 150 / 150 Weight 89.6 kg Intake: Oral 150 / 150 Output: Hemodialysis Amount 1000 / 1000 Other: Date of Last Bowel Movement 07/13/18 07/13/18 # Bowel Movements 1 Narrative: GENERAL: no visible distress SKIN: Warm and dry. EYES: EOM grossly I. ENT: Mucous membranes pink and moist. CARDIOVASCULAR: RRR RESPIRATORY: Normal rate; patient would not allow auscultation GASTROINTESTINAL: soft. No edema. - Urinary Catheter Management Indwelling Urethral Catheter Cath placed during this visit: yes, but has since been removed by the nurse Reason for continuing: Acute urinary retention Insertion date: 07/09/18 Insertion time: 17:30 Removal date: 07/11/18 Removal time: 15:35 Assessment and Plan - Assessment (1) ESRD (end stage renal disease) on dialysis Code(s): N18.6 - End stage renal disease; Z99.2 - Dependence on renal dialysis Status: Acute Plan: Dialysis will be TTS. Monitor fluid and electrolytes. Urine culture is positive for ESBL positive E.coli. On Invanz. ID on the case. Vancomycin has been stopped. PermCath placement tomorrow. (2) Sepsis Code(s): A41.9 - Sepsis, unspecified organism Status: Acute Plan: UTI with sepsis ESBL positive E.coli from urine. On Invanz. Vancomycin has been stopped. Blood culture is negative. PermCath tomorrow. . (3) Anemia of renal disease Code(s): D63.1 - Anemia in chronic kidney disease Status: Acute Plan: Epogen with dialysis. (4) Atrial fibrillation Code(s): I48.91 - Unspecified atrial fibrillation Status: Acute Plan: Monitor heart rate. Monitor on telemetry
[2018-07-15] MEDS: Ertapenem Inj 500 MG in Sodium Chlor 0.9% Inj 100 ML IV.SIG SCH (11:55)
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
[2018-07-15] MEDS: QUEtiapine 25 MG Tablet PO SCH (12:51)
[2018-07-15 13:12] LABS: Albumin 1.8 g/dL (3.4-5.0)
[2018-07-15 13:14] LABS: Total Protein 5.7 g/dL (6.4-8.2)
[2018-07-16] MEDS: Carboxymethylcellulose 0.5% Opth Drops 15 ML Bottle EACH EYE SCH ×4 (05:14→21:04)
[2018-07-16] MEDS: Levothyroxine 75 MCG Tablet PO SCH (05:43)
[2018-07-16] MEDS: Insulin NovoLOG Aspart Correctional Sugar Inj SQ SCH ×4 (09:08→21:59)
[2018-07-16] MEDS: Pantoprazole Sodium 20 MG DR Tablet PO SCH (09:13)
[2018-07-16] MEDS: Amiodarone 200 MG Tablet PO SCH ×2 (09:13→21:01)
[2018-07-16] MEDS: QUEtiapine 25 MG Tablet PO SCH (09:13)
[2018-07-16] MEDS: Heparin Central Flush 100 UNIT/ML 5 ML Vial IV.FLUSH SCH (09:14)
[2018-07-16] MEDS: Clotrimazole 1% Cream 15 GM Tube TOPICAL SCH ×2 (09:14→21:04)
[2018-07-16] MEDS: Polyethylene Glycol 3350 17 GM Packet PO SCH ×2 (09:14→21:04)
[2018-07-16] MEDS: Tiotropium Bromide 18 MCG/ACT Inhaler INH SCH (09:21)
[2018-07-16] MEDS ORDERED: ceFAZolin 2 GM Premix Inj 2 GM/50 ML PIGGYBACK IV.SIG SCH (11:00)
[2018-07-16] MEDS ORDERED: Vancomycin Inj 1,000 MG in Sodium Chlor 0.9% Inj 250 ML IV.SIG SCH (11:00)
[2018-07-16] MEDS ORDERED: fentaNYL Citrate Inj 100 MCG/2 ML Ampul ONE (11:42)
[2018-07-16] MEDS ORDERED: *Heparin 10,000 UNITS/10 ML Vial Periprocedural ONLY ONE (12:02)
[2018-07-16] MEDS ORDERED: Lidocaine 1%/Epinephrine 1:100,000 Inj 30 ML Vial ONE (12:03)
[2018-07-16] MEDS ORDERED: Heparin Central Flush 100 UNIT/ML 5 ML Vial IV.FLUSH PRN (12:58)
--- NOTE | 2018-07-16 13:01 | P.RAD ---
Post Procedure Progress Note - Pre Procedure Diagnosis (1) Acute on chronic kidney failure (2) ESRD (end stage renal disease) on dialysis - Post Procedure Diagnosis (1) Acute on chronic kidney failure (2) ESRD (end stage renal disease) on dialysis - Procedure Information Procedure Date: 07/16/18 Supervising Radiologist: Raleigh Guillen MD Estimated blood loss (mL): 2 Anesthesia: Local, Analgesia, Conscious Sedation - Plan of Activity Patient to Unit: [facility] Patient Condition: Good See PACS Report for procedural detail/treatment. [facility] Radiology Procedures right Internal Jugular Hemodialysis Catheter Tunneled Placement Device: dual lumen [place]: 15 PICC Line Length (cm): 27
--- NOTE | 2018-07-16 14:03 | P.CONPSY ---
Provisional Diagnosis Admission Date: July 09, 2018 15:20 [place] II.: Delirium due to underlying medical condition History of Present Illness Service: Medicine Primary Care Provider: Landen Haley MD Family Provider: Troy Crowder Chief Complaint: Hypotension, altered mental status History of Present Illness: The patient is a is a 72-year-old man, he is , father of 2 kids, with a psychiatric history of dementia, alcohol use disorder, in sustained full remission, medical history of diabetes, COPD, hypertension, hypothyroidism, hospitalized due to multiple medical complications, including severe sepsis due to UTI, end-stage renal disease, chronic systolic heart failure, and stage II sacral ulcer, consulted to psychiatry to address agitation and aggressiveness. Chart reviewed. On psychiatric evaluation I find a patient that is calm, cooperative, pleasantly confused. The patient knows that he is in [place], he does not know the reason of his hospitalizations, he is disoriented in time. Patient is unable to tell me his medical and psychiatric conditions. However, the patient reports good mood, he says that he is okay, he denies suicidal and homicidal ideation, denies visual and auditory hallucinations. The patient does not display any agitation or aggressive behavior at this moment. There is no paranoia, or delusions present. [facility] - History History Provided By: Family Member, Medical Record, Instrument Room Technician / EMT - Medical History Medical History: Medical History (Last Reviewed 07/12/18 @ 09:44 by Donovan Jiang DO) Anginal equivalent (Acute) Anticoagulant long-term use (Acute) Dysphasia (Acute) Occlusion of right internal carotid artery (Acute) Chronic kidney disease, stage IV (severe) (Acute) BPH (benign prostatic hyperplasia) (Acute) Diabetes mellitus (Acute) Sleep apnea (Acute) PTSD (post-traumatic stress disorder) (Acute) COPD (chronic obstructive pulmonary disease) (Acute) Acute on chronic systolic (congestive) heart failure (Acute) Atrial fibrillation (Acute) Atherosclerotic cardiovascular disease (Acute) NSTEMI (non-ST elevated myocardial infarction) (Acute) Adjustment disorder Chronic use of benzodiazepine for therapeutic purpose Coronary artery disease Dementia Essential hypertension Fibromyalgia Hyperlipidemia Hypertension Hypothyroid Nephrolithiasis - Surgical History Surgical History: Surgical History (Last Reviewed 07/12/18 @ 09:44 by Donovan Jiang DO) History of liver biopsy (Acute) H/O hand surgery (Acute) S/P TURP (Acute) S/P coronary artery stent placement (Acute) H/O nephrostomy (Acute) Presence of coronary angioplasty implant and graft (Acute) - Family History Family History: Family History (Last Reviewed 07/12/18 @ 09:44 by Donovan Jiang DO) Mother Family history of diabetes mellitus - Tobacco History Second Hand Smoke Exposure: No Smoking Status: Never smoker Tobacco Type: Cigarettes Years Smoked: 30 Number of Pack Years (if former smoker): 30 - Alcohol History How Often Do You Have a Drink Containing Alcohol: Never - Substance Use History Substance History: No History of Abuse - Travel History Recent Travel in the [place] Within the Last 8 Weeks: No Recent Travel Out of the Country Within the Last 8 Weeks: No - Immunization History Tetanus Immunization: Unable to Assess Hx Influenza Vaccine This Season: Unable to Assess Medications and Allergies Active Medications: Active Medications Acetaminophen (Tylenol) 650 mg PO UNSCH PRN PRN Reason: SEE LABEL COMMENTS Acetaminophen (Tylenol) 650 mg PO Q6HR PRN PRN Reason: PAIN SCALE 1 TO 2 Albuterol (Albuterol Neb (Prn)) 2.5 mg NEB Q2HR NEB PRN PRN Reason: SHORTNESS OF BREATH/WHEEZING Amiodarone HCl (Cordarone) 200 mg PO Q12HR [facility] Last Admin: 07/16/18 09:13 Dose: 200 mg Artificial Tears (Refresh Tears 0.5% Opth Drops) 1 drop EACH EYE Q6H [facility] Last Admin: 07/16/18 10:15 Dose: 1 drop Aspirin (Aspirin Chew) 81 mg PO DAILY [facility] Last Admin: 07/16/18 09:13 Dose: 81 mg Atorvastatin Calcium (Lipitor) 40 mg PO DAILY [facility] Last Admin: 07/16/18 09:13 Dose: 40 mg Bisacodyl (Dulcolax Supp) 10 mg RECTAL DAILY PRN PRN Reason: SEVERE CONSITIPATION Carvedilol (Coreg) 3.125 mg PO BID@0600,1800 [facility] Last Admin: 07/16/18 05:43 Dose: 3.125 mg Clonidine HCl (Catapres) 0.1 mg PO UNSCH PRN PRN Reason: SEE LABEL COMMENTS Clotrimazole (Lotrimin 1% Cream) 1 applicatio TOPICAL BID [facility] Last Admin: 09/24/18 09:14 Dose: 1 applicatio Dextrose (D50w Vial) 50 ml IV.PUSH UNSCH PRN PRN Reason: PER HYPOGLYCEMIA PROTOCOL Last Admin: 07/11/18 17:08 Dose: 50 ml Epoetin Bud (Epogen Inj) 10,000 unit IV.PUSH UNSCH PRN PRN Reason: SEE LABEL COMMENTS Last Admin: 07/14/18 11:59 Dose: 10,000 unit Gelatin (Gelfoam 12 Mm/7 Mm Topical) 1 foam TOPICAL PRN PRN PRN Reason: help stop bleeding from site Gentamicin Sulfate (Gentamicin Inj) 20 mg OTHER WITH DIALYSIS PRN PRN Reason: Dwell Gentamycin Lock Last Admin: 07/12/18 12:34 Dose: 20 mg Glucagon (Glucagon Inj) 1 mg OTHER PRN PRN PRN Reason: for Hypoglycemia Protocol Haloperidol Lactate (Haldol Inj) 1 mg IM ONCE PRN PRN Reason: AGITATION Last Admin: 07/12/18 16:09 Dose: 1 mg Heparin Sodium (Porcine) (Heparin Inj) 8,000 units OTHER WITH DIALYSIS PRN PRN Reason: for machine prime Heparin Sodium (Porcine) (Heparin Inj) 1,000 units OTHER WITH DIALYSIS PRN PRN Reason: Dwell Heparin to Fill Catheter Last Admin: 07/12/18 12:34 Dose: 1,000 units Heparin Sodium (Porcine) (Heparin Central Flush) 0 unit IV.FLUSH DAILY [facility] Last Admin: 07/16/18 09:14 Dose: Not Given Heparin Sodium (Porcine) (Heparin Central Flush) 0 unit IV.FLUSH PRN PRN PRN Reason: Flush each lumen Heparin Sodium (Porcine) (Heparin Central Flush) 0 unit IV.FLUSH DAILY PRN PRN Reason: SEE DOSE INSTRUCTIONS Albumin Human (Flexbumin 25% Inj) 100 mls @ 60 mls/hr IV.SIG WITH DIALYSIS PRN PRN Reason: hypotension / volume replace Sodium Chloride (Ns Inj) 1,000 mls @ 0 mls/hr OTHER .Q0M PRN PRN Reason: for prime and rinse back Sodium Chloride (Ns Inj) 1,000 mls @ 200 mls/hr OTHER .Q5H PRN PRN Reason: for dialyzer flush PRN Sodium Chloride (Ns Inj) 1,000 mls @ 0 mls/hr IV.CONT .Q0M PRN PRN Reason: hypotension / volume replace Ertapenem 500 mg/ Sodium (Chloride) 100 mls @ 100 mls/hr IV.SIG Q24H [facility] Last Admin: 07/15/18 11:55 Dose: Not Given Vancomycin HCl 1,000 mg/ (Sodium Chloride) 250 mls @ 250 mls/hr IV.SIG JOINERY SETTER OUT [facility] Stop: 07/20/18 10:59 Last Infusion: 07/16/18 13:03 Dose: Infused Cefazolin Sodium/Dextrose (Ancef 2 Gm Premix Inj) 2 gm in 50 mls @ 100 mls/hr IV.SIG JOINERY SETTER OUT [facility] Stop: 07/20/18 10:59 Last Infusion: 07/16/18 12:08 Dose: Infused Insulin Aspart (Novolog Insulin Correctional Sugar Inj) 0 unit SQ ACHS [facility]; Protocol Last Admin: 07/16/18 09:08 Dose: Not Given Insulin Detemir (Levemir Inj) 7 unit SQ BID [facility] Lactulose (Lactulose Liq) 30 ml PO DAILY PRN PRN Reason: SEVERE CONSITIPATION Levothyroxine Sodium (Synthroid) 75 mcg PO DAILY@0600 [facility] Last Admin: 07/16/18 05:43 Dose: 75 mcg Mannitol (Mannitol Inj) 12.5 gm IV.PUSH UNSCH PRN PRN Reason: hypotension / volume replace Morphine Sulfate (Morphine Inj) 2 mg IV.PUSH Q3H PRN PRN Reason: PAIN 3-5; IF UABLE TO TAKE PO Morphine Sulfate (Morphine Inj) 4 mg IV.PUSH Q3H PRN PRN Reason: PAIN 6-10;IF UNABLE TO TAKE PO Last Admin: 07/13/18 19:45 Dose: 4 mg Morphine Sulfate (Morphine Inj) 4 mg IV.PUSH Q3H PRN PRN Reason: BREAKTHROUGH PAIN Last Admin: 07/14/18 00:06 Dose: 4 mg Naloxone HCl (Narcan Inj) 0.4 mg IV.PUSH UNSCH PRN PRN Reason: SEE LABEL COMMENTS Nitroglycerin (Nitrostat Sl) 0.4 mg SL Q5M PRN PRN Reason: CHEST PAIN Ondansetron HCl (Zofran Inj) 4 mg IV.PUSH UNSCH PRN PRN Reason: NAUSEA OR VOMITING Oxycodone/Acetaminophen (Percocet 10/325 Mg) 1 tab PO Q6H PRN PRN Reason: PAIN SCALE 6 TO 10 Last Admin: 07/15/18 21:46 Dose: 1 tab Oxycodone/Acetaminophen (Percocet 5/325 Mg) 1 tab PO Q6H PRN PRN Reason: PAIN SCALE 3 TO 5 Pantoprazole Sodium (Protonix) 20 mg PO DAILY [facility] Last Admin: 07/16/18 09:13 Dose: 20 mg Polyethylene Glycol (Miralax) 17 gm PO BID [facility] Last Admin: 07/16/18 09:14 Dose: 17 gm Quetiapine Fumarate (Seroquel) 25 mg PO DAILY [facility] Last Admin: 07/16/18 09:13 Dose: 25 mg Sennosides (Senokot) 17.2 mg PO Q12H PRN PRN Reason: Moderate Constipation Sevelamer Carbonate (Renvela) 800 mg PO TIDAC [facility] Last Admin: 07/16/18 09:12 Dose: Not Given Sodium Chloride (Ns Flush) 5 ml IV.FLUSH PRN PRN PRN Reason: flush each lumen during HD Sodium Chloride (Ns Flush) 0 ml IV.FLUSH DAILY [facility] Last Admin: 07/16/18 09:14 Dose: Not Given Sodium Chloride (Ns Flush) 0 ml IV.FLUSH PRN PRN PRN Reason: FLUSH AFTER USING IV ACCESS Sodium Chloride (Ns Flush) 0 ml IV.FLUSH UNSCH PRN PRN Reason: SEE DOSE INSTRUCTIONS Tiotropium [place] (Spiriva 18 Mcg Inh) 18 mcg INH DAILY [facility] Last Admin: 07/16/18 09:21 Dose: 18 mcg Allergies Allergy/AdvReac Type Severity Reaction Status Date / Time celecoxib [From Celebrex] Allergy Severe Itching Verified 07/09/18 11:57 ciprofloxacin Allergy Severe Itching Verified 07/09/18 11:57 diatrizoate meglumine Allergy Severe Itching Verified 07/09/18 11:57 gadobenic acid Allergy Severe Itching Verified 07/09/18 11:57 gadodiamide Allergy Severe Itching Verified 07/09/18 11:57 gadoteridol Allergy Severe Itching Verified 07/09/18 11:57 iodixanol Allergy Severe Itching Verified 07/09/18 11:57 iohexol Allergy Severe Itching Verified 07/09/18 11:57 levofloxacin Allergy Severe Itching Verified 07/09/18 11:57 ezetimibe [From Zetia] Allergy Intermediate Itching Verified 07/09/18 11:57 prochlorperazine Allergy Unknown Itching Verified 05/10/18 20:51 [From Compazine] red dye Allergy Unknown Itching Verified 05/10/18 20:51 Home Medications Medication Instructions Recorded Confirmed Type apixaban 2.5 mg PO BID 05/10/18 07/09/18 History aspirin 81 mg PO DAILY 05/10/18 07/09/18 History atorvastatin 40 mg PO DAILY 05/10/18 07/09/18 History ipratropium-albuterol 3 ml INHALATION Q4H PRN 05/10/18 07/09/18 History omeprazole 20 mg PO DAILY 05/10/18 07/09/18 History pregabalin [Lyrica] 75 mg PO BID 05/10/18 07/09/18 History clotrimazole 1 applic TOPICAL BID 05/31/18 07/09/18 History tiotropium bromide [Spiriva with 1 cap INHALATION DAILY 05/31/18 07/09/18 History HandiHaler] Exam Vital signs: Vital Signs 07/15/18 16:00 07/15/18 20:00 07/16/18 00:00 Temperature 98.1 F 98.3 F 98.5 F Pulse Rate 78 79 81 Respiratory Rate 18 16 16 Blood Pressure 134/61 119/50 L 135/62 Pulse Oximetry 96 94 L 96 07/16/18 04:00 07/16/18 08:00 07/16/18 12:00 Temperature 98.4 F 97.6 F 97.5 F L Pulse Rate 75 69 77 Respiratory Rate 16 16 18 Blood Pressure 121/81 128/57 L 138/64 Pulse Oximetry 95 97 98 Intake & Output 07/15/18 07/16/18 07/16/18 18:59 06:59 18:59 Intake Total 240 / 240 300 / 300 Balance 240 / 240 300 / 300 Intake: IV 300 / 300 Vancomycin Inj 1,000 MG In NS 250 / 250 Inj 250 ML @ 250 mls/hr IV.SIG JOINERY SETTER OUT [facility] Rx#:[id number] Ancef 2 GM Premix Inj 2 gm In 50 / 50 50 ml @ 100 mls/hr IV.SIG JOINERY SETTER OUT [facility] Rx#:[id number] Oral 240 / 240 Other: # Voids 0 # Incontinent Voids 1 Date of Last Bowel Movement 07/13/18 07/15/18 # Bowel Movements 0 Mental Status Examination Appearance: Appropriate Consciousness: Alert Orientation: Person Motor Activity: Normal gait Speech: Unremarkable Language: Adequate Fund of Knowledge: Adequate Attention and Concentration: Adequate Memory: Impaired Mood: Appropriate Affect: Appropriate Thought Process & Associations: Intact Thought Content: Appropriate Hallucination Type: None Delusion Type: None Suicidal Ideation: No Suicidal Plan: No Suicidal Intention: No Homicidal Ideation: No Homicidal Plan: No Homicidal Intention: No Insight: Fair Judgment: Impulsive Assessment and Plan - Assessment (1) Delirium Code(s): R41.0 - Disorientation, unspecified Status: Acute - Plan Plan: Estimated LOS: [] days On my psychiatric evaluation today the patient presents calm, superficially cooperative, pleasantly confused. The patient is unable to tell me the reason of his hospitalization, but denies depression, denies anxiety, denies sherron and psychosis. The patient denies suicidal and homicidal ideation. He is oriented in person and place, but disoriented in time. There is no agitation, no aggressive behavior, no paranoia present. Patient has been allegedly episodically agitated, confused with attention deficit. Presentation that seems to be related with delirium most probably related with underlying medical conditions. Agree with Seroquel 25 mg twice daily. Haldol 1-2 mg IM every 8 hours as needed aggressive behavior and agitation can be ordered if QTC is under 460. Patient does not meet criteria for involuntary psychiatric admission. Avoid deliogenic medications, benzodiazepines, narcotics, anticholinergics as much as possible. Frequent reorientation, sensory stimulation, appropriate light in the rooms and familiar faces around are recommended. Support, motivational psych education provided Justification for Continued Inpatient Stay: No admission indicated
[2018-07-16] MEDS: Ertapenem Inj 500 MG in Sodium Chlor 0.9% Inj 100 ML IV.SIG SCH (14:57)
--- NOTE | 2018-07-16 15:50 | IR ---
EXAM DATE: 07/16/2018 1:02 PM EDT AGE/SEX: 72 years / Male INDICATIONS: Patient presents with a history of kidney disease in need of permanent dialysis cathete r. CLINICAL DATA: This is the patient's initial encounter. Patient reports that signs and symptoms have been present for 4 - 6 days and indicates a pain score of 0/10. MEDICAL/SURGICAL HISTORY: Hypertension. Diabetes. Chronic obstructive pulmonary disease. BPH , Sleep Apnea, PTSD, AFIB, Dementia CABG. TURP, Liver Biopsy COMPARISON: No prior exams available for comparison. FLUORO TIME (min): :36 IMAGE SERIES: 2 ACCESS SITE: SEDATION TIME (min): 40 MEDICATION(S): 1mg midazolam (Versed) IV 50mcg fentanyl (Sublimaze) IV DEVICE(S): 27cm Perm Cath . . PROCEDURE: 1. Ultrasound-guided venipuncture. 2. PermaCath placement. 3. Conscious sedation with continuous EKG and oximetry monitoring. The risks, benefits and alternatives to the procedure were explained and verbal and written consent w as obtained. The site was prepped in sterile fashion. Full sterile technique was used, including ca p, mask, sterile gloves and gown and a large sterile sheet. Hand hygiene and 2% chlorhexidine and/or betadine/alcohol prep was utilized per protocol for cutaneous antisepsis. Sterile gel and sterile p robe cover were utilized for ultrasound guidance. The skin and subcutaneous tissues were infiltrated with local anesthetic solution. With ultrasound and fluoroscopic guidance a dermatotomy was created over the prescribed vein. A micr opuncture set was used to access the targeted vein and serial dilatation was performed to accept the prescribed length catheter. A subcutaneous tunnel was created in a retrograde fashion the catheter w as pulled through the tunnel. The catheter was flushed and assembled and locked with heparin. The c atheter was sutured in place. Conscious sedation was performed with the prescribed dosages and duration as above in the presence of an independent trained radiology nurse to assist in the monitoring of the patient. EKG and oximetry remained stable throughout the procedure. The patient tolerated the procedure well and there were n o complications. The patient was sent to post anesthesia recovery in stable condition. CONCLUSION: 1. Uncomplicated PermaCath placement as above. Electronically signed by: Raleigh Guillen MD 07/16/2018 3:49 PM EDT
--- NOTE | 2018-07-16 19:32 | P.PNIM ---
Subjective Interval history: Mr. Monteiro was afebrile with stable VS overnight. Patient was seen after IJ hemodialysis catheter placement in the company of nursing staff. Patient was attempting to get out of bed to use bathroom; he reports being disoriented initially but now knew he was in hospital. No complaints reported but he did not answer some questioning. Per nursing staff, patient would generally follow commands today. Physical Exam Vital signs: Vital Signs 07/15/18 20:00 07/16/18 00:00 07/16/18 04:00 Temperature 98.3 F 98.5 F 98.4 F Pulse Rate 79 81 75 Respiratory Rate 16 16 16 Blood Pressure 119/50 L 135/62 121/81 Pulse Oximetry 94 L 96 95 07/16/18 08:00 07/16/18 12:00 07/16/18 13:00 Temperature 97.6 F 97.5 F L 97.8 F Pulse Rate 69 77 71 Respiratory Rate 16 18 20 Blood Pressure 128/57 L 138/64 117/55 L Pulse Oximetry 97 98 92 L 07/16/18 13:30 07/16/18 14:00 07/16/18 14:13 Temperature 97.8 F Pulse Rate 75 65 73 Respiratory Rate 20 20 18 Blood Pressure 120/65 100/60 115/53 L Pulse Oximetry 95 100 94 L 07/16/18 16:00 Temperature 98.4 F Pulse Rate 73 Respiratory Rate 18 Blood Pressure 112/56 L Pulse Oximetry 96 Intake & Output 07/16/18 07/16/18 07/17/18 06:59 18:59 06:59 Intake Total 540 / 540 Balance 540 / 540 Intake: IV 300 / 300 Vancomycin Inj 1,000 MG In NS 250 / 250 Inj 250 ML @ 250 mls/hr IV.SIG WAYS OPERATOR [facility]FR[facility]O Rx#:[id number] Ancef 2 GM Premix Inj 2 gm In 50 / 50 50 ml @ 100 mls/hr IV.SIG WA[employer] OPERATOR [facility] Rx#:[id number] Oral 240 / 240 Other: # Incontinent Voids 1 Date of Last Bowel Movement 07/13/18 07/15/18 Narrative: GENERAL: no visible distress SKIN: Warm and dry. Genital area erythema/suggestive of fungal infection EYES: EOM grossly I. CARDIOVASCULAR: RRR; no murmurs. No significant LE edema RESPIRATORY: CTAB; normal rate GASTROINTESTINAL: No tenderness to palpation NEUROLOGICAL: No obvious cranial nerve deficits; clear speech. Normal ROM of upper extremities PSYCHIATRIC: Improved mood; would answer some questions - Urinary Catheter Management Indwelling Urethral Catheter Cath placed during this visit: yes, but has since been removed by the nurse Reason for continuing: Acute urinary retention Insertion date: 07/09/18 Insertion time: 17:30 Removal date: 07/11/18 Removal time: 15:35 Results - Labs CBC & Chem 7: 07/15/18 09:32 07/15/18 09:32 Laboratory Results - last 24 hr 07/15/18 07/16/18 07/16/18 21:01 09:12 17:24 POC Glucose 108 85 88 - Imaging Impressions Central Venous Line 07/16/18 00:00 CONCLUSION: 1. Uncomplicated PermaCath placement as above. - Procedures NONE Assessment and Plan - Assessment (1) ESBL (extended spectrum beta-lactamase) producing bacteria infection Code(s): A49.9 - Bacterial infection, unspecified; Z16.12 - Extended spectrum beta lactamase (ESBL) resistance Status: Acute (2) Sepsis Code(s): A41.9 - Sepsis, unspecified organism Status: Acute (3) Acute alteration in mental status Code(s): R41.82 - Altered mental status, unspecified Status: Acute (4) COPD (chronic obstructive pulmonary disease) Code(s): J44.9 - Chronic obstructive pulmonary disease, unspecified Status: Acute (5) Acute on chronic kidney failure Code(s): N17.9 - Acute kidney failure, unspecified; N18.9 - Chronic kidney disease, unspecified Status: Acute (6) Acute UTI Code(s): N39.0 - Urinary tract infection, site not specified Status: Acute (7) Anemia of renal disease Code(s): D63.1 - Anemia in chronic kidney disease Status: Acute (8) ESRD (end stage renal disease) on dialysis Code(s): N18.6 - End stage renal disease; Z99.2 - Dependence on renal dialysis Status: Acute (9) Septic shock Code(s): A41.9 - Sepsis, unspecified organism; R65.21 - Severe sepsis with septic shock Status: Acute - Plan Mr. Monteiro is a 72 yo male with: Severe Sepsis on admission Acute UTI with pyuria -On admission, patient with leukocytosis of 17, temperature 100.4, lactate 2.3, gross pus in urine as described by ED physician, urinary retention Urine culture 07/09- ESBL UTI Blood cultures negative x5 days (07/09) Central venous catheter line negative x2 days (07/10) -ID consulted -Stop Zosyn/Vancomycin -Ertapenem adjusted for renal function -Repeat urine culture Monday -Urinary catheter replaced 07/10 End-stage renal disease. Impression: On chronic dialysis TTS. Permacath removed 07/10 -Nephrology consulted -Last dialysis 07/15; 1 L removed 07/14 -Possible Permacath replacement Monday if cleared by ID Neuro Dementia Confusion/Altered mental status Poor oral intake Impression: Metabolic encephalopathy on admission resolved but patient confused at baseline. Patient agitated after dialysis 2 days prior- work-up was negative (VS normal. Clear speech; no focal CN or peripheral defects. CBC/CMP/troponin/ reassuring. Ammonia wnl. No hypoxia. PMH COPD. s/p Haldol 1mg x2 IM) Head CT- negative 05/2018- angry, not inclined for examination but appears in no distress 07/14- continued anger; would not allow full exam 07/15- continued agitation 07/16- improved agitation relative to prior exams -Psychiatry consulted -Presentation likely delirium related with underlying medical conditions -Seroquel 25mg BID -Haldol 1-2mg IM q8hrs if aggressive behavior assuming QTC <460 -Will consider Psychiatry Cardiovascular Chronic systolic heart failure Atrial fibrillation Impression: Rate controlled -Continue Carvedilol 3.125mg BID -Continue ASA 81mg Holding anti-coagulation due to possible procedure Right hand pain Impression: Unclear etiology. Pain reported 07/12-07/13. No radius/ulnar pain. - exam deferred. Wrist XR 07/13- multiple carpal osseous cysts; stable/benign. Some scapholunate joint widening with ? osseous de-mineralization or early erosion on scaphoid side of joint. Possible associated scapholunate ligament injury- if concern MRI wrist could be performed MR wrist deferred due to patient agitation -Will continue current pain medications (morphine PRN) Anemia -Epogen with dialysis Stage I/2 sacral ulcer -Wound care consulted Diabetes mellitus Insulin and diabetic diet -Levemir 7 U BID -Watch hypoglycemia COPD History of WERNER -Continue home meds Hypothyroidism. Chronic -Continue home meds GERD Chronic -Continue home medication PT consulted -Rehab recommended DVT PPX -Bilateral SCD's s/p cath placement, will start heparin tomorrow Discharge Planning: Discharge planning per Case management (5) Acute on chronic kidney failure Qualifiers: Acute renal failure type: unspecified Chronic kidney disease stage: stage 3 ( moderate) Qualified Code(s): N17.9 - Acute kidney failure, unspecified; N18.3 - Chronic kidney disease, stage 3 (moderate)
[2018-07-16] MEDS: oxyCODONE/Acetaminophen 10/325 Tablet PO PRN (21:01)
[2018-07-17] MEDS: Carboxymethylcellulose 0.5% Opth Drops 15 ML Bottle EACH EYE SCH ×4 (04:03→21:28)
[2018-07-17] MEDS: Levothyroxine 75 MCG Tablet PO SCH (06:00)
[2018-07-17] MEDS: oxyCODONE/Acetaminophen 10/325 Tablet PO PRN ×3 (06:00→23:51)
[2018-07-17] MEDS: Insulin NovoLOG Aspart Correctional Sugar Inj SQ SCH ×4 (08:08→21:27)
--- NOTE | 2018-07-17 08:58 | P.PNNP ---
Subjective Interval history: patient was seen during dialysis. On 3K, 2.5 Ca. UF minimum. Patient looks dry. He is able to communicate, but is difficult to understand. Physical Exam Vital signs: Vital Signs 07/16/18 12:00 07/16/18 13:00 07/16/18 13:30 Temperature 97.5 F L 97.8 F Pulse Rate 77 71 75 Respiratory Rate 18 20 20 Blood Pressure 138/64 117/55 L 120/65 Pulse Oximetry 98 92 L 95 07/16/18 14:00 07/16/18 14:13 07/16/18 16:00 Temperature 97.8 F 98.4 F Pulse Rate 65 73 73 Respiratory Rate 20 18 18 Blood Pressure 100/60 115/53 L 112/56 L Pulse Oximetry 100 94 L 96 07/16/18 20:00 07/17/18 00:00 07/17/18 04:00 Temperature 97.9 F 97.7 F 97.9 F Pulse Rate 77 70 71 Respiratory Rate 18 18 18 Blood Pressure 107/53 L 110/60 133/82 Pulse Oximetry 100 96 95 07/17/18 08:00 Temperature Pulse Rate Respiratory Rate 18 Blood Pressure Pulse Oximetry Intake & Output 07/16/18 07/17/18 07/17/18 18:59 06:59 18:59 Intake Total 540 / 540 250 / 250 Balance 540 / 540 250 / 250 Intake: IV 300 / 300 100 / 100 INVanz Inj 500 MG In NS Inj 100 100 / 100 ML @ 100 mls/hr IV.SIG Q24H WILFREDO Rx#:[id number] Vancomycin Inj 1,000 MG In NS 250 / 250 Inj 250 ML @ 250 mls/hr IV.SIG LINKING MACHINE OPERATOR WILFREDO Rx#:[id number] Ancef 2 GM Premix Inj 2 gm In 50 / 50 50 ml @ 100 mls/hr IV.SIG LINKING MACHINE OPERATOR WILFREDO Rx#:[id number] Oral 240 / 240 150 / 150 Other: # Incontinent Voids 0 Date of Last Bowel Movement 07/15/18 07/13/18 Narrative: GENERAL: no visible distress SKIN: Warm and dry. Genital area erythema/suggestive of fungal infection EYES: EOM grossly I. CARDIOVASCULAR: RRR; no murmurs. No significant LE edema RESPIRATORY: CTAB; normal rate GASTROINTESTINAL: No tenderness to palpation NEUROLOGICAL: able to move all extremities. - Urinary Catheter Management Indwelling Urethral Catheter Cath placed during this visit: yes, but has since been removed by the nurse Reason for continuing: Acute urinary retention Insertion date: 07/09/18 Insertion time: 17:30 Removal date: 07/11/18 Removal time: 15:35 Assessment and Plan - Assessment (1) ESRD (end stage renal disease) on dialysis Code(s): N18.6 - End stage renal disease; Z99.2 - Dependence on renal dialysis Status: Acute Plan: Dialysis will be TTS. Dialysis today. Monitor fluid and electrolytes. Urine culture is positive for ESBL positive E.coli. On Invanz. ID on the case. PermCath placed. Patient can be discharged if cleared by ID. On Invanz since . (2) Sepsis Code(s): A41.9 - Sepsis, unspecified organism Status: Acute Plan: UTI with sepsis ESBL positive E.coli from urine. On Invanz. . (3) Anemia of renal disease Code(s): D63.1 - Anemia in chronic kidney disease Status: Acute Plan: Epogen with dialysis. (4) Atrial fibrillation Code(s): I48.91 - Unspecified atrial fibrillation Status: Acute Plan: Monitor heart rate. Monitor on telemetry - Attending Attestation Patient can be discharged from renal standpoint.
[2018-07-17] MEDS: Heparin Central Flush 100 UNIT/ML 5 ML Vial IV.FLUSH SCH (09:32)
[2018-07-17] MEDS: Amiodarone 200 MG Tablet PO SCH ×2 (09:32→21:27)
[2018-07-17] MEDS: Tiotropium Bromide 18 MCG/ACT Inhaler INH SCH (09:33)
[2018-07-17] MEDS: Clotrimazole 1% Cream 15 GM Tube TOPICAL SCH ×2 (09:33→21:27)
[2018-07-17] MEDS: Polyethylene Glycol 3350 17 GM Packet PO SCH ×2 (09:33→21:27)
[2018-07-17] MEDS: QUEtiapine 25 MG Tablet PO SCH (09:33)
[2018-07-17] MEDS: Pantoprazole Sodium 20 MG DR Tablet PO SCH (09:33)
[2018-07-17 10:32] LABS: Albumin 1.7 g/dL (3.4-5.0); Calcium 7.9 mg/dL (8.5-10.1); Phosphorus 3.9 mg/dL (2.5-4.9); Potassium 3.7 meq/L (3.5-5.1)
[2018-07-17] MEDS: Heparin 10,000 UNITS/10 ML Vial (for IV use) OTHER PRN (10:49)
[2018-07-17] MEDS: Ertapenem Inj 500 MG in Sodium Chlor 0.9% Inj 100 ML IV.SIG SCH (12:06)
--- NOTE | 2018-07-17 17:14 | MR ---
EXAM DATE: 07/17/2018 2:26 PM EDT AGE/SEX: 72 years / Male INDICATIONS: . Pain in right hand across entire palm region. CLINICAL DATA: This is the patient's initial encounter. Patient reports that signs and symptoms have been present for 1 week and indicates a pain score of 8/10. MEDICAL/SURGICAL HISTORY: Chronic obstructive pulmonary disease. Diabetes mellitus type II. R enal failure, chronic. Coronary artery stent. TURP, Hand sx. COMPARISON: [facility], WRIST COMPLETE RIGHT MIN 3V, 07/13/2018. . TECHNIQUE: Multiplanar, multisequence MRI examination was performed without contrast. FINDINGS: The study is motion degraded. I don't see a fracture or subluxation of the right hand. At the edge of the [id number], there is some widening of the scapholunate interval but I believe this is nonacut e. There is synovitis diffusely of the carpus. Osteopenia and nonspecific marrow edema involves the c arpal bones and also the bases of the metacarpals, especially the third and fourth. A posttraumatic o r inflammatory carpal arthropathy is possible. Nondisplaced fractures or trabecular contusions are al so conceivable. I don't see a large or displaced fracture fragment. There is edema of the thenar musculature of the right hand. No organized or drainable fluid demonstra sarah. I don't see muscle or tendon tear. Sagittal expansion of the extensor mechanism at the fourth metacarpal phalangeal joint is markedly th ickened and edematous. There appears to be some associated marrow edema involving the bones, presumab ly reactive, most conspicuous of the proximal phalanx of the fourth finger. Similar but milder findin gs are seen of the proximal interphalangeal joint. There appears to be some periarticular osteopenia on the comparison radiographs. I don't see a fracture. CONCLUSION: 1. Motion degraded study. 2. An apparent extensor tendinosis/tenosynovitis of the ring finger, nonspecific. A primary systemic inflammatory process would be conceivable. Infection is considered less likely. 3. Diffuse synovitis and osteopenia of the carpus and the metacarpal bases which may also be an infl ammatory arthropathy. The widening of the scapholunate interval is probably nonacute and could be rel ated to a long-standing inflammatory arthropathy or previous trauma. 4. There is proximal hand muscle edema, especially in the thenar region. Exact etiology is uncertain . Median neuropathy would be possible which may be reactive or related to carpal tunnel syndrome. Bettye ssly, I don't see responsible mass or ganglion. 5. No fractures or subluxations are seen of the bones of the right hand. No evidence of osteomyeliti s or abscess. Electronically signed by: Ashvin Christine MD 07/17/2018 5:13 PM EDT
--- NOTE | 2018-07-17 17:33 | P.PNID ---
Subjective Remarks: Patient is awake and alert. Underwent dialysis today. Notes that his left heel hurts. Afebrile. Blood culture no growth. Permacath removed. Catheter tip culture no growth. This is a 72-year-old white male who is a [facility]. The patient has multiple medical problems. He presented to the emergency department on 07/09/2018 with fever. He was recently treated in this hospital for sepsis and [facility]. He reportedly also had hypotension. He was extremely lethargic also yesterday. The patient has end-stage renal disease and undergoes hemodialysis. This consultation was requested for infectious disease management of sepsis. Past Medical History: PAST MEDICAL HISTORY: Hypertension, diabetes mellitus, dementia, chronic kidney disease stage IV the patient receiving hemodialysis, benign prostatic hypertrophy, COPD, coronary artery disease, hyperlipidemia, hypothyroidism, history of non-ST elevated myocardial infarction, posttraumatic stress disorder, sleep apnea, history of coronary stent, history of TURP, history of nephrostomy. Allergies/Adverse Reactions: Allergies celecoxib [From Celebrex] Allergy (Severe, Verified 07/09/18 11:57) Itching ciprofloxacin Allergy (Severe, Verified 07/09/18 11:57) Itching diatrizoate meglumine Allergy (Severe, Verified 07/09/18 11:57) Itching gadobenic acid Allergy (Severe, Verified 07/09/18 11:57) Itching gadodiamide Allergy (Severe, Verified 07/09/18 11:57) Itching gadoteridol Allergy (Severe, Verified 07/09/18 11:57) Itching iodixanol Allergy (Severe, Verified 07/09/18 11:57) Itching iohexol Allergy (Severe, Verified 07/09/18 11:57) Itching levofloxacin Allergy (Severe, Verified 07/09/18 11:57) Itching ezetimibe [From Zetia] Allergy (Intermediate, Verified 07/09/18 11:57) Itching prochlorperazine [From Compazine] Allergy (Unknown, Verified 05/10/18 20:51) Itching red dye Allergy (Unknown, Verified 05/10/18 20:51) Itching Objective Vital Signs 07/16/18 20:00 07/17/18 00:00 07/17/18 04:00 Temperature 97.9 F 97.7 F 97.9 F Pulse Rate 77 70 71 Respiratory Rate 18 18 18 Blood Pressure 107/53 L 110/60 133/82 Pulse Oximetry 100 96 95 07/17/18 08:00 07/17/18 12:00 07/17/18 16:00 Temperature 97.6 F 98.1 F 98.5 F Pulse Rate 71 73 71 Respiratory Rate 20 18 20 Blood Pressure 101/55 L 106/53 L 100/61 Pulse Oximetry 98 99 96 Intake & Output 07/16/18 07/17/18 07/17/18 18:59 06:59 18:59 Intake Total 540 / 540 250 / 250 1000 / 1000 Output Total 700 / 700 Balance 540 / 540 250 / 250 300 / 300 Intake: IV 300 / 300 100 / 100 1000 / 1000 INVanz Inj 500 MG In NS Inj 100 100 / 100 ML @ 100 mls/hr IV.SIG Q24H WILFREDO Rx#:[id number] Vancomycin Inj 1,000 MG In NS 250 / 250 Inj 250 ML @ 250 mls/hr IV.SIG ACTIVE DIRECTORY ENGINEER WILFREDO Rx#:[id number] Ancef 2 GM Premix Inj 2 gm In 50 / 50 50 ml @ 100 mls/hr IV.SIG ACTIVE DIRECTORY ENGINEER WILFREDO Rx#:[id number] NS Inj 1,000 ML @ As Directed 1000 / 1000 OTHER .Q0M PRN Rx#:[id number] Oral 240 / 240 150 / 150 Output: Urine 300 / 300 Hemodialysis Amount 400 / 400 Other: # Incontinent Voids 0 Date of Last Bowel Movement 07/15/18 07/13/18 07/15/18 Lab - Chemistry Results 07/15/18 07/15/18 07/16/18 17:46 21:01 09:12 Sodium Potassium Chloride Carbon Dioxide Anion Gap BUN Creatinine Estimated GFR POC Glucose 91 108 85 Random Glucose Calcium Phosphorus Albumin 07/16/18 07/16/18 07/17/18 17:24 21:19 04:14 Sodium Potassium Chloride Carbon Dioxide Anion Gap BUN Creatinine Estimated GFR POC Glucose 88 73 59 L Random Glucose Calcium Phosphorus Albumin 07/17/18 07/17/18 07/17/18 04:51 05:57 06:33 Sodium Potassium Chloride Carbon Dioxide Anion Gap BUN Creatinine Estimated GFR POC Glucose 76 90 98 Random Glucose Calcium Phosphorus Albumin 07/17/18 07/17/18 07/17/18 07:54 08:20 12:02 Sodium 143 Potassium 3.7 Chloride 106 Carbon Dioxide 30.0 Anion Gap 7 BUN 20 H Creatinine 5.77 H Estimated GFR 10 L POC Glucose 117 H 96 Random Glucose 99 Calcium 7.9 L Phosphorus 3.9 Albumin 1.7 L Imaging: ITS Impressions Chest X-Ray 07/09/18 11:59 CONCLUSION: Dialysis catheter in good position. The lungs are clear. Catheter Placement 07/10/18 00:00 CONCLUSION: 1. Uncomplicated line placement as above. Tube Removal 07/10/18 00:00 CONCLUSION: 1. Uncomplicated Permcath removal. Wrist X-Ray 07/13/18 00:00 CONCLUSION: 1. Multiple carpal osseous cysts as above. These are basically stable and overtly benign. 2. However, there appears to be some interval widening of the scapholunate joint with questionable regional osseous demineralization or early erosion on the scaphoid side of the joint. Findings could be due to previous trauma or crystalline arthropathy such as gouty arthritis. 3. Possible associated injury to the scapholunate ligament. If there is a clinical concern, MRI of the wrist could be performed for further characterization Central Venous Line 07/16/18 00:00 CONCLUSION: 1. Uncomplicated PermaCath placement as above. Hand MRI 07/17/18 07:00 CONCLUSION: 1. Motion degraded study. 2. An apparent extensor tendinosis/tenosynovitis of the ring finger, nonspecific. A primary systemic inflammatory process would be conceivable. Infection is considered less likely. 3. Diffuse synovitis and osteopenia of the carpus and the metacarpal bases which may also be an inflammatory arthropathy. The widening of the scapholunate interval is probably nonacute and could be related to a long-standing inflammatory arthropathy or previous trauma. 4. There is proximal hand muscle edema, especially in the thenar region. Exact etiology is uncertain. Median neuropathy would be possible which may be reactive or related to carpal tunnel syndrome. Grossly, I don't see responsible mass or ganglion. 5. No fractures or subluxations are seen of the bones of the right hand. No evidence of osteomyelitis or abscess. Physical Exam: PHYSICAL EXAMINATION: GENERAL: No acute distress. Awake and alert. HEENT: Head is atraumatic. Extraocular muscles grossly intact. Pupils reactive to light. No icterus. Oropharynx dry mucosa. No visible lesions. NECK: Supple. No adenopathy. LUNGS: Decreased breath sounds. HEART: Regular S1, S2. No audible murmur. ABDOMEN: Bowel sounds present. Soft, no tenderness. BUTTOCK: Dry excoriated ulcerated lesion with erythema at both buttocks. No visible drainage. EXTREMITIES: No clubbing, cyanosis or edema. Erythema at the left heel. SKIN: No rash. NEUROLOGIC: Non focal. PSYCHIATRIC: Calm and cooperative. Assessment and Plan - Plan IMPRESSION: Sepsis, likely arising from urinary tract infection versus dialysis catheter infection. Gram negative ESBL e. coli. UTI RECOMMENDATIONS: 1. Continue Ertapenem. 2. Repeat urine culture 3. Monitor clinical response. If the urine culture is negative the antibiotic can be discontinued.
--- NOTE | 2018-07-17 18:00 | P.PN ---
Subjective Interval history: Patient is seen lying in bed. He has been urinating well this morning. No nausea or vomiting. Nursing reports some continuing disorientation, but no adverse events. Physical Exam Vital signs: Vital Signs 07/16/18 20:00 07/17/18 00:00 07/17/18 04:00 Temperature 97.9 F 97.7 F 97.9 F Pulse Rate 77 70 71 Respiratory Rate 18 18 18 Blood Pressure 107/53 L 110/60 133/82 Pulse Oximetry 100 96 95 07/17/18 08:00 07/17/18 12:00 07/17/18 16:00 Temperature 97.6 F 98.1 F 98.5 F Pulse Rate 71 73 71 Respiratory Rate 20 18 20 Blood Pressure 101/55 L 106/53 L 100/61 Pulse Oximetry 98 99 96 Intake & Output 07/16/18 07/17/18 07/17/18 18:59 06:59 18:59 Intake Total 540 / 540 250 / 250 1000 / 1000 Output Total 700 / 700 Balance 540 / 540 250 / 250 300 / 300 Intake: IV 300 / 300 100 / 100 1000 / 1000 INVanz Inj 500 MG In NS Inj 100 100 / 100 ML @ 100 mls/hr IV.SIG Q24H WILFREDO Rx#:[id number] Vancomycin Inj 1,000 MG In NS 250 / 250 Inj 250 ML @ 250 mls/hr IV.SIG GUEST HOUSE MANAGER WILFREDO Rx#:[id number] Ancef 2 GM Premix Inj 2 gm In 50 / 50 50 ml @ 100 mls/hr IV.SIG GUEST HOUSE MANAGER WILFREDO Rx#:[id number] NS Inj 1,000 ML @ As Directed 1000 / 1000 OTHER .Q0M PRN Rx#:[id number] Oral 240 / 240 150 / 150 Output: Urine 300 / 300 Hemodialysis Amount 400 / 400 Other: # Incontinent Voids 0 Date of Last Bowel Movement 07/15/18 07/13/18 07/15/18 Narrative: GENERAL: Well-nourished, well-developed adult male in no obvious distress. SKIN: Warm and dry. Some erythema in groin. HEAD: Atraumatic. Normocephalic. CARDIOVASCULAR: Regular rate and rhythm. RESPIRATORY: No accessory muscle use. Clear to auscultation. Breath sounds equal bilaterally. GASTROINTESTINAL: Abdomen soft, non-tender, non-distended. Positive bowel sounds. MUSCULOSKELETAL: Extremities without clubbing, cyanosis, or edema. No obvious deformities. NEUROLOGICAL: Awake and alert. No obvious cranial nerve deficits. Motor grossly within normal limits. Normal speech. - Urinary Catheter Management Indwelling Urethral Catheter Cath placed during this visit: yes, but has since been removed by the nurse Reason for continuing: Acute urinary retention Insertion date: 07/09/18 Insertion time: 17:30 Removal date: 07/11/18 Removal time: 15:35 Results - Labs CBC & Chem 7: 07/15/18 09:32 07/17/18 08:20 Laboratory Results - last 24 hr 07/16/18 07/16/18 07/17/18 17:24 21:19 04:14 Sodium Potassium Chloride Carbon Dioxide Anion Gap BUN Creatinine Estimated GFR POC Glucose 88 73 59 L Random Glucose Calcium Phosphorus Albumin 07/17/18 07/17/18 07/17/18 04:51 05:57 06:33 Sodium Potassium Chloride Carbon Dioxide Anion Gap BUN Creatinine Estimated GFR POC Glucose 76 90 98 Random Glucose Calcium Phosphorus Albumin 07/17/18 07/17/18 07/17/18 07:54 08:20 12:02 Sodium 143 Potassium 3.7 Chloride 106 Carbon Dioxide 30.0 Anion Gap 7 BUN 20 H Creatinine 5.77 H Estimated GFR 10 L POC Glucose 117 H 96 Random Glucose 99 Calcium 7.9 L Phosphorus 3.9 Albumin 1.7 L - Imaging Impressions Hand MRI 07/17/18 07:00 CONCLUSION: 1. Motion degraded study. 2. An apparent extensor tendinosis/tenosynovitis of the ring finger, nonspecific. A primary systemic inflammatory process would be conceivable. Infection is considered less likely. 3. Diffuse synovitis and osteopenia of the carpus and the metacarpal bases which may also be an inflammatory arthropathy. The widening of the scapholunate interval is probably nonacute and could be related to a long-standing inflammatory arthropathy or previous trauma. 4. There is proximal hand muscle edema, especially in the thenar region. Exact etiology is uncertain. Median neuropathy would be possible which may be reactive or related to carpal tunnel syndrome. Grossly, I don't see responsible mass or ganglion. 5. No fractures or subluxations are seen of the bones of the right hand. No evidence of osteomyelitis or abscess. - Procedures NONE Assessment and Plan - Assessment (1) ESBL (extended spectrum beta-lactamase) producing bacteria infection Code(s): A49.9 - Bacterial infection, unspecified; Z16.12 - Extended spectrum beta lactamase (ESBL) resistance Status: Acute (2) Sepsis Code(s): A41.9 - Sepsis, unspecified organism Status: Acute (3) Acute alteration in mental status Code(s): R41.82 - Altered mental status, unspecified Status: Acute (4) COPD (chronic obstructive pulmonary disease) Code(s): J44.9 - Chronic obstructive pulmonary disease, unspecified Status: Acute (5) Acute on chronic kidney failure Code(s): N17.9 - Acute kidney failure, unspecified; N18.9 - Chronic kidney disease, unspecified Status: Acute (6) Acute UTI Code(s): N39.0 - Urinary tract infection, site not specified Status: Acute (7) Anemia of renal disease Code(s): D63.1 - Anemia in chronic kidney disease Status: Acute (8) ESRD (end stage renal disease) on dialysis Code(s): N18.6 - End stage renal disease; Z99.2 - Dependence on renal dialysis Status: Acute (9) Septic shock Code(s): A41.9 - Sepsis, unspecified organism; R65.21 - Severe sepsis with septic shock Status: Acute - Plan Mr. Monteiro is a 72 yo male with: Severe Sepsis on admission Acute UTI with pyuria -On admission, patient with leukocytosis of 17, temperature 100.4, lactate 2.3, gross pus in urine as described by ED physician, urinary retention Urine culture 07/09- ESBL UTI Blood cultures negative x5 days (07/09) Central venous catheter line negative x2 days (07/10) -ID consulted -Stop Zosyn/Vancomycin -Ertapenem adjusted for renal function -Repeat urine culture Monday -Urinary catheter replaced 07/10 End-stage renal disease. Impression: On chronic dialysis TTS. Permacath removed 07/10 -Nephrology consulted -Last dialysis 07/15; 1 L removed 07/14 -Possible Permacath replacement Monday if cleared by ID Neuro Dementia Confusion/Altered mental status Poor oral intake Impression: Metabolic encephalopathy on admission resolved but patient confused at baseline. Patient agitated after dialysis 2 days prior- work-up was negative (VS normal. Clear speech; no focal CN or peripheral defects. CBC/CMP/troponin/ reassuring. Ammonia wnl. No hypoxia. PMH COPD. s/p Haldol 1mg x2 IM) Head CT- negative 05/2018- angry, not inclined for examination but appears in no distress 07/14- continued anger; would not allow full exam 07/15- continued agitation 07/16- improved agitation relative to prior exams -Psychiatry consulted -Presentation likely delirium related with underlying medical conditions -Seroquel 25mg BID -Haldol 1-2mg IM q8hrs if aggressive behavior assuming QTC <460 -Will consider Psychiatry Cardiovascular Chronic systolic heart failure Atrial fibrillation Impression: Rate controlled -Continue Carvedilol 3.125mg BID -Continue ASA 81mg Holding anti-coagulation due to possible procedure Right hand pain Impression: Unclear etiology. Pain reported 07/12-07/13. No radius/ulnar pain. - exam deferred. Wrist XR 07/13- multiple carpal osseous cysts; stable/benign. Some scapholunate joint widening with ? osseous de-mineralization or early erosion on scaphoid side of joint. Possible associated scapholunate ligament injury- if concern MRI wrist done 07/17 -Will continue current pain medications (morphine PRN) Anemia -Epogen with dialysis Stage I/2 sacral ulcer -Wound care consulted Diabetes mellitus Insulin and diabetic diet -Levemir 7 U BID -Watch hypoglycemia COPD History of WERNER -Continue home meds Hypothyroidism. Chronic -Continue home meds GERD Chronic -Continue home medication PT consulted -Rehab recommended DVT PPX -Bilateral SCD's s/p cath placement, will start heparin tomorrow Discharge Planning: Discharge planning per Case management (5) Acute on chronic kidney failure Qualifiers: Acute renal failure type: unspecified Chronic kidney disease stage: stage 3 ( moderate) Qualified Code(s): N17.9 - Acute kidney failure, unspecified; N18.3 - Chronic kidney disease, stage 3 (moderate)
[2018-07-17] MEDS: Heparin - SQ 10,000 UNITS/ML Vial SQ SCH (21:27)
[2018-07-18] MEDS: Carboxymethylcellulose 0.5% Opth Drops 15 ML Bottle EACH EYE SCH ×4 (04:10→21:55)
[2018-07-18] MEDS: Levothyroxine 75 MCG Tablet PO SCH (05:47)
[2018-07-18] MEDS: QUEtiapine 25 MG Tablet PO SCH (08:43)
[2018-07-18] MEDS: Polyethylene Glycol 3350 17 GM Packet PO SCH ×2 (08:43→21:54)
[2018-07-18] MEDS: Pantoprazole Sodium 20 MG DR Tablet PO SCH (08:43)
[2018-07-18] MEDS: Amiodarone 200 MG Tablet PO SCH ×2 (08:43→21:54)
[2018-07-18] MEDS: Heparin Central Flush 100 UNIT/ML 5 ML Vial IV.FLUSH SCH (08:43)
[2018-07-18] MEDS: Tiotropium Bromide 18 MCG/ACT Inhaler INH SCH (08:44)
[2018-07-18] MEDS: Heparin - SQ 10,000 UNITS/ML Vial SQ SCH ×2 (08:44→21:54)
--- NOTE | 2018-07-18 10:52 | P.PNNP ---
Subjective Interval history: complains of pain in the right forearm, wrist. Very tender. Has a skin tear on the right forearm. Incomplete dialysis yesterday due to tunnel edema. Physical Exam Vital signs: Vital Signs 07/17/18 12:00 07/17/18 16:00 07/17/18 20:00 Temperature 98.1 F 98.5 F 97.6 F Pulse Rate 73 71 71 Respiratory Rate 18 20 18 Blood Pressure 106/53 L 100/61 104/53 L Pulse Oximetry 99 96 98 07/18/18 00:00 07/18/18 01:56 07/18/18 04:00 Temperature 97.7 F 97.7 F Pulse Rate 72 72 Respiratory Rate 18 16 18 Blood Pressure 112/57 L 108/55 L Pulse Oximetry 98 99 07/18/18 08:00 Temperature 97.5 F L Pulse Rate 70 Respiratory Rate 18 Blood Pressure 96/52 L Pulse Oximetry 97 Intake & Output 07/17/18 07/18/18 07/18/18 18:59 06:59 18:59 Intake Total 1860 / 1860 Output Total 800 / 800 650 / 650 Balance 1060 / 1060 -650 / -650 Intake: IV 1000 / 1000 NS Inj 1,000 ML @ As Directed 1000 / 1000 OTHER .Q0M PRN Rx#:[id number] Oral 860 / 860 Output: Urine 400 / 400 Hemodialysis Amount 400 / 400 Urine Amount (Catheter) 650 / 650 Straight 650 / 650 Other: # Voids 1 # Incontinent Voids 2 Date of Last Bowel Movement 07/15/18 07/15/18 # Bowel Movements 0 Narrative: GENERAL: Sleepy, complains of pain in the right wrist and forearm. SKIN: Warm and dry. Some erythema in groin. HEAD: Atraumatic. Normocephalic. CARDIOVASCULAR: Regular rate and rhythm. RESPIRATORY: No accessory muscle use. Clear to auscultation. Breath sounds equal bilaterally. GASTROINTESTINAL: Abdomen soft, non-tender, non-distended. Positive bowel sounds. MUSCULOSKELETAL: no edema. Right wrist is tender, he keeps it flexed. Movements are painful. NEUROLOGICAL: Awake and alert. No obvious cranial nerve deficits. Motor grossly within normal limits. Normal speech. - Urinary Catheter Management Indwelling Urethral Catheter Cath placed during this visit: yes, but has since been removed by the nurse Reason for continuing: Acute urinary retention Insertion date: 07/09/18 Insertion time: 17:30 Removal date: 07/11/18 Removal time: 15:35 Straight Cath placed during this visit: no Assessment and Plan - Assessment (1) ESRD (end stage renal disease) on dialysis Code(s): N18.6 - End stage renal disease; Z99.2 - Dependence on renal dialysis Status: Acute Plan: Dialysis will be TTS. Dialysis today. Monitor fluid and electrolytes. Urine culture is positive for ESBL positive E.coli. On Invanz. ID on the case. PermCath placed. Patient can be discharged if cleared by ID. On Invanz since . (2) Sepsis Code(s): A41.9 - Sepsis, unspecified organism Status: Acute Plan: UTI with sepsis ESBL positive E.coli from urine. On Invanz. . (3) Anemia of renal disease Code(s): D63.1 - Anemia in chronic kidney disease Status: Acute Plan: Epogen with dialysis. (4) Atrial fibrillation Code(s): I48.91 - Unspecified atrial fibrillation Status: Acute Plan: Monitor heart rate. Monitor on telemetry
[2018-07-18] MEDS: Insulin NovoLOG Aspart Correctional Sugar Inj SQ SCH ×4 (11:11→21:55)
[2018-07-18] MEDS: Ertapenem Inj 500 MG in Sodium Chlor 0.9% Inj 100 ML IV.SIG SCH (12:16)
[2018-07-18] MEDS: Clotrimazole 1% Cream 15 GM Tube TOPICAL SCH ×2 (16:53→21:54)
--- NOTE | 2018-07-18 18:52 | P.PN ---
Subjective Interval history: Patient seen lying in bed. He is sleepy but wakes easily. Denies any new complaints. Nursing reports no adverse events. Physical Exam Vital signs: Vital Signs 07/17/18 20:00 07/18/18 00:00 07/18/18 01:56 Temperature 97.6 F 97.7 F Pulse Rate 71 72 Respiratory Rate 18 18 16 Blood Pressure 104/53 L 112/57 L Pulse Oximetry 98 98 07/18/18 04:00 07/18/18 08:00 07/18/18 12:00 Temperature 97.7 F 97.5 F L 97.5 F L Pulse Rate 72 70 71 Respiratory Rate 18 18 18 Blood Pressure 108/55 L 96/52 L 97/47 L Pulse Oximetry 99 97 96 07/18/18 16:00 Temperature 97.9 F Pulse Rate 68 Respiratory Rate 18 Blood Pressure 108/53 L Pulse Oximetry 96 Intake & Output 07/17/18 07/18/18 07/18/18 18:59 06:59 18:59 Intake Total 1960 / 1960 480 / 480 Output Total 800 / 800 650 / 650 Balance 1160 / 1160 -650 / -650 480 / 480 Intake: IV 1100 / 1100 INVanz Inj 500 MG In NS Inj 100 100 / 100 ML @ 100 mls/hr IV.SIG Q24H [facility] Rx#:[id number] NS Inj 1,000 ML @ As Directed 1000 / 1000 OTHER .Q0M PRN Rx#:[id number] Oral 860 / 860 480 / 480 Output: Urine 400 / 400 Hemodialysis Amount 400 / 400 Urine Amount (Catheter) 650 / 650 Straight 650 / 650 Other: # Voids 1 0 # Incontinent Voids 2 Date of Last Bowel Movement 07/15/18 07/15/18 07/15/18 # Bowel Movements 0 0 Narrative: GENERAL: Well-nourished, well-developed adult male in no acute distress. SKIN: Warm and dry. Some erythema in groin. HEAD: Atraumatic. Normocephalic. CARDIOVASCULAR: Regular rate and rhythm. RESPIRATORY: No accessory muscle use. Clear to auscultation. Breath sounds equal bilaterally. GASTROINTESTINAL: Abdomen soft, non-tender, non-distended. Positive bowel sounds. MUSCULOSKELETAL: no edema. Right wrist is tender. Movements are painful. NEUROLOGICAL: Awake and alert. No obvious cranial nerve deficits. Motor grossly within normal limits. Normal speech. - Urinary Catheter Management Indwelling Urethral Catheter Cath placed during this visit: yes, but has since been removed by the nurse Reason for continuing: Acute urinary retention Insertion date: 07/09/18 Insertion time: 17:30 Removal date: 07/11/18 Removal time: 15:35 Straight Cath placed during this visit: no Results - Labs CBC & Chem 7: 07/15/18 09:32 07/17/18 08:20 Laboratory Results - last 24 hr 07/17/18 07/18/18 07/18/18 20:33 08:42 12:23 POC Glucose 85 96 79 - Procedures NONE Assessment and Plan - Assessment (1) ESBL (extended spectrum beta-lactamase) producing bacteria infection Code(s): A49.9 - Bacterial infection, unspecified; Z16.12 - Extended spectrum beta lactamase (ESBL) resistance Status: Acute (2) Sepsis Code(s): A41.9 - Sepsis, unspecified organism Status: Acute (3) Acute alteration in mental status Code(s): R41.82 - Altered mental status, unspecified Status: Acute (4) COPD (chronic obstructive pulmonary disease) Code(s): J44.9 - Chronic obstructive pulmonary disease, unspecified Status: Acute (5) Acute on chronic kidney failure Code(s): N17.9 - Acute kidney failure, unspecified; N18.9 - Chronic kidney disease, unspecified Status: Acute (6) Acute UTI Code(s): N39.0 - Urinary tract infection, site not specified Status: Acute (7) Anemia of renal disease Code(s): D63.1 - Anemia in chronic kidney disease Status: Acute (8) ESRD (end stage renal disease) on dialysis Code(s): N18.6 - End stage renal disease; Z99.2 - Dependence on renal dialysis Status: Acute (9) Septic shock Code(s): A41.9 - Sepsis, unspecified organism; R65.21 - Severe sepsis with septic shock Status: Acute - Plan Mr. Monteiro is a 72 yo male with: 07/18: Stable. Continuing treatment for ESBL UTI Severe Sepsis on admission Acute UTI with pyuria -On admission, patient with leukocytosis of 17, temperature 100.4, lactate 2.3, gross pus in urine as described by ED physician, urinary retention Urine culture 07/09- ESBL UTI Blood cultures negative x5 days (07/09) Central venous catheter line negative x2 days (07/10) -ID consulted -Stop Zosyn/Vancomycin -Ertapenem adjusted for renal function -Repeat urine culture Monday -Urinary catheter replaced 07/10 End-stage renal disease. Impression: On chronic dialysis TTS. Permacath removed 07/10 -Nephrology consulted -Continue dialysis -Possible Permacath replacement Monday if cleared by ID Neuro Dementia Confusion/Altered mental status Poor oral intake Impression: Metabolic encephalopathy on admission resolved but patient confused at baseline. Patient agitated after dialysis 2 days prior- work-up was negative (VS normal. Clear speech; no focal CN or peripheral defects. CBC/CMP/troponin/ reassuring. Ammonia wnl. No hypoxia. PMH COPD. s/p Haldol 1mg x2 IM) Head CT- negative 05/2018- angry, not inclined for examination but appears in no distress 07/14- continued anger; would not allow full exam 07/15- continued agitation 07/16- improved agitation relative to prior exams -Psychiatry consulted -Presentation likely delirium related with underlying medical conditions -Seroquel 25mg BID -Haldol 1-2mg IM q8hrs if aggressive behavior assuming QTC <460 -Will consider Psychiatry Cardiovascular Chronic systolic heart failure Atrial fibrillation Impression: Rate controlled -Continue Carvedilol 3.125mg BID -Continue ASA 81mg Holding anti-coagulation due to possible procedure Right hand pain Impression: Unclear etiology. Pain reported 07/12-07/13. No radius/ulnar pain. - exam deferred. Wrist XR 07/13- multiple carpal osseous cysts; stable/benign. Some scapholunate joint widening with ? osseous de-mineralization or early erosion on scaphoid side of joint. Possible associated scapholunate ligament injury- if concern MRI wrist-done 07/17 no evidence of osteomyelitis or abscess. Tendinosis. -Will continue current pain medications (morphine PRN) Anemia -Epogen with dialysis Stage I/2 sacral ulcer -Wound care consulted Diabetes mellitus Insulin and diabetic diet -Levemir 7 U BID -Watch hypoglycemia COPD History of WERNER -Continue home meds Hypothyroidism. Chronic -Continue home meds GERD Chronic -Continue home medication PT consulted -Rehab recommended DVT PPX -Bilateral SCD's s/p cath placement, will start heparin tomorrow Discharge Planning: Discharge planning per Case management (5) Acute on chronic kidney failure Qualifiers: Acute renal failure type: unspecified Chronic kidney disease stage: stage 3 ( moderate) Qualified Code(s): N17.9 - Acute kidney failure, unspecified; N18.3 - Chronic kidney disease, stage 3 (moderate)
[2018-07-19] MEDS: Carboxymethylcellulose 0.5% Opth Drops 15 ML Bottle EACH EYE SCH ×4 (04:12→21:11)
[2018-07-19] MEDS: Levothyroxine 75 MCG Tablet PO SCH (06:18)
[2018-07-19] MEDS: Amiodarone 200 MG Tablet PO SCH ×2 (08:37→21:10)
[2018-07-19] MEDS: Clotrimazole 1% Cream 15 GM Tube TOPICAL SCH ×2 (08:37→21:11)
[2018-07-19] MEDS: Heparin Central Flush 100 UNIT/ML 5 ML Vial IV.FLUSH SCH (08:37)
[2018-07-19] MEDS: Heparin - SQ 10,000 UNITS/ML Vial SQ SCH ×2 (08:37→21:11)
[2018-07-19] MEDS: Polyethylene Glycol 3350 17 GM Packet PO SCH ×2 (08:37→21:11)
[2018-07-19] MEDS: Tiotropium Bromide 18 MCG/ACT Inhaler INH SCH (08:38)
[2018-07-19] MEDS: Pantoprazole Sodium 20 MG DR Tablet PO SCH (08:38)
[2018-07-19] MEDS: QUEtiapine 25 MG Tablet PO SCH (08:38)
[2018-07-19] MEDS: Insulin NovoLOG Aspart Correctional Sugar Inj SQ SCH ×4 (08:43→21:11)
[2018-07-19] MEDS: Heparin 10,000 UNITS/10 ML Vial (for IV use) OTHER PRN (10:53)
[2018-07-19] MEDS: Ertapenem Inj 500 MG in Sodium Chlor 0.9% Inj 100 ML IV.SIG SCH (13:03)
[2018-07-19] MEDS: oxyCODONE/Acetaminophen 10/325 Tablet PO PRN ×2 (13:14→21:11)
--- NOTE | 2018-07-19 15:24 | P.PNNP ---
Subjective Interval history: He had dialysis this morning. 500 ml removed. His appetite is poor. Not eating much. Physical Exam Vital signs: Vital Signs 07/18/18 16:00 07/18/18 20:00 07/18/18 21:00 Temperature 97.9 F 98.1 F Pulse Rate 68 76 Respiratory Rate 18 18 18 Blood Pressure 108/53 L 103/52 L Pulse Oximetry 96 93 L 07/19/18 00:00 07/19/18 04:46 07/19/18 08:00 Temperature 97.8 F 97.5 F L 97.4 F L Pulse Rate 71 72 71 Respiratory Rate 18 18 16 Blood Pressure 113/54 L 118/45 L 107/51 L Pulse Oximetry 95 95 96 07/19/18 12:50 Temperature 97.8 F Pulse Rate 85 Respiratory Rate 16 Blood Pressure 108/52 L Pulse Oximetry 97 Intake & Output 07/18/18 07/19/18 07/19/18 18:59 06:59 18:59 Intake Total 480 / 480 100 / 100 200 / 200 Output Total 500 / 500 Balance 480 / 480 100 / 100 -300 / -300 Intake: IV 100 / 100 200 / 200 Flexbumin 25% Inj 100 ML @ 60 100 / 100 mls/hr IV.SIG WITH DIALYSIS PRN Rx#:[id number] INVanz Inj 500 MG In NS Inj 100 100 / 100 100 / 100 ML @ 100 mls/hr IV.SIG Q24H [facility] Rx#:[id number] Oral 480 / 480 Output: Hemodialysis Amount 500 / 500 Other: # Voids 0 1 Date of Last Bowel Movement 07/15/18 # Bowel Movements 0 Narrative: GENERAL: Sleepy, complains of pain in the right wrist and forearm. SKIN: Warm and dry. Some erythema in groin. HEAD: Atraumatic. Normocephalic. CARDIOVASCULAR: Regular rate and rhythm. RESPIRATORY: No accessory muscle use. Clear to auscultation. Breath sounds equal bilaterally. GASTROINTESTINAL: Abdomen soft, non-tender, non-distended. Positive bowel sounds. MUSCULOSKELETAL: no edema. Right wrist is tender, he keeps it flexed. Movements are painful. NEUROLOGICAL: Awake and alert. No obvious cranial nerve deficits. Motor grossly within normal limits. Normal speech. - Urinary Catheter Management Indwelling Urethral Catheter Cath placed during this visit: yes, but has since been removed by the nurse Reason for continuing: Acute urinary retention Insertion date: 07/09/18 Insertion time: 17:30 Removal date: 07/11/18 Removal time: 15:35 Straight Cath placed during this visit: no Assessment and Plan - Assessment (1) ESRD (end stage renal disease) on dialysis Code(s): N18.6 - End stage renal disease; Z99.2 - Dependence on renal dialysis Status: Acute Plan: Dialysis will be TTS. Dialysis today. Monitor fluid and electrolytes. Urine culture is positive for ESBL positive E.coli. On Invanz. ID on the case. PermCath placed. Patient can be discharged if cleared by ID. On Invanz since . (2) Sepsis Code(s): A41.9 - Sepsis, unspecified organism Status: Acute Plan: UTI with sepsis ESBL positive E.coli from urine. On Invanz. . (3) Anemia of renal disease Code(s): D63.1 - Anemia in chronic kidney disease Status: Acute Plan: Epogen with dialysis. (4) Atrial fibrillation Code(s): I48.91 - Unspecified atrial fibrillation Status: Acute Plan: Monitor heart rate. Monitor on telemetry
--- NOTE | 2018-07-19 16:08 | P.PN ---
Subjective Interval history: Patient is seen after dialysis. He is quite sleepy. Nursing reports no new adverse events. Physical Exam Vital signs: Vital Signs 07/18/18 20:00 07/18/18 21:00 07/19/18 00:00 Temperature 98.1 F 97.8 F Pulse Rate 76 71 Respiratory Rate 18 18 18 Blood Pressure 103/52 L 113/54 L Pulse Oximetry 93 L 95 07/19/18 04:46 07/19/18 08:00 07/19/18 12:50 Temperature 97.5 F L 97.4 F L 97.8 F Pulse Rate 72 71 85 Respiratory Rate 18 16 16 Blood Pressure 118/45 L 107/51 L 108/52 L Pulse Oximetry 95 96 97 Intake & Output 07/18/18 07/19/18 07/19/18 18:59 06:59 18:59 Intake Total 480 / 480 100 / 100 200 / 200 Output Total 500 / 500 Balance 480 / 480 100 / 100 -300 / -300 Intake: IV 100 / 100 200 / 200 Flexbumin 25% Inj 100 ML @ 60 100 / 100 mls/hr IV.SIG WITH DIALYSIS PRN Rx#:[id number] INVanz Inj 500 MG In NS Inj 100 100 / 100 100 / 100 ML @ 100 mls/hr IV.SIG Q24H [facility] Rx#:[id number] Oral 480 / 480 Output: Hemodialysis Amount 500 / 500 Other: # Voids 0 1 Date of Last Bowel Movement 07/15/18 # Bowel Movements 0 Narrative: GENERAL: Well-nourished, well-developed adult male in no acute distress. SKIN: Warm and dry. Some erythema in groin. HEAD: Atraumatic. Normocephalic. CARDIOVASCULAR: Regular rate and rhythm. RESPIRATORY: No accessory muscle use. Clear to auscultation. Breath sounds equal bilaterally. GASTROINTESTINAL: Abdomen soft, non-tender, non-distended. Positive bowel sounds. MUSCULOSKELETAL: no edema. Right wrist is tender. Movements are painful. NEUROLOGICAL: Awake and alert. No obvious cranial nerve deficits. Motor grossly within normal limits. Normal speech. - Urinary Catheter Management Indwelling Urethral Catheter Cath placed during this visit: yes, but has since been removed by the nurse Reason for continuing: Acute urinary retention Insertion date: 07/09/18 Insertion time: 17:30 Removal date: 07/11/18 Removal time: 15:35 Straight Cath placed during this visit: no Results - Labs CBC & Chem 7: 07/15/18 09:32 07/17/18 08:20 Laboratory Results - last 24 hr 07/18/18 07/19/18 07/19/18 21:54 09:10 11:55 POC Glucose 73 93 85 Microbiology 07/18/18 03:59 Catheterized Urine Urine Culture - Preliminary No growth in 24 hours - Procedures NONE Assessment and Plan - Assessment (1) ESBL (extended spectrum beta-lactamase) producing bacteria infection Code(s): A49.9 - Bacterial infection, unspecified; Z16.12 - Extended spectrum beta lactamase (ESBL) resistance Status: Acute (2) Sepsis Code(s): A41.9 - Sepsis, unspecified organism Status: Acute (3) Acute alteration in mental status Code(s): R41.82 - Altered mental status, unspecified Status: Acute (4) COPD (chronic obstructive pulmonary disease) Code(s): J44.9 - Chronic obstructive pulmonary disease, unspecified Status: Acute (5) Acute on chronic kidney failure Code(s): N17.9 - Acute kidney failure, unspecified; N18.9 - Chronic kidney disease, unspecified Status: Acute (6) Acute UTI Code(s): N39.0 - Urinary tract infection, site not specified Status: Acute (7) Anemia of renal disease Code(s): D63.1 - Anemia in chronic kidney disease Status: Acute (8) ESRD (end stage renal disease) on dialysis Code(s): N18.6 - End stage renal disease; Z99.2 - Dependence on renal dialysis Status: Acute (9) Septic shock Code(s): A41.9 - Sepsis, unspecified organism; R65.21 - Severe sepsis with septic shock Status: Acute - Plan Mr. Monteiro is a 72 yo male with: 07/19: Stable. Continuing treatment for ESBL UTI; no changes to current medical plan. Severe Sepsis on admission Acute UTI with pyuria -On admission, patient with leukocytosis of 17, temperature 100.4, lactate 2.3, gross pus in urine as described by ED physician, urinary retention Urine culture 07/09- ESBL UTI Blood cultures negative x5 days (07/09) Central venous catheter line negative x2 days (07/10) -ID consulted -Stop Zosyn/Vancomycin -Ertapenem adjusted for renal function -Repeat urine culture Monday -Urinary catheter replaced 07/10 End-stage renal disease. Impression: On chronic dialysis TTS. Permacath removed 07/10 -Nephrology consulted -Continue dialysis -Possible Permacath replacement Monday if cleared by ID Neuro Dementia Confusion/Altered mental status Poor oral intake Impression: Metabolic encephalopathy on admission resolved but patient confused at baseline. Patient agitated after dialysis 2 days prior- work-up was negative (VS normal. Clear speech; no focal CN or peripheral defects. CBC/CMP/troponin/ reassuring. Ammonia wnl. No hypoxia. PMH COPD. s/p Haldol 1mg x2 IM) Head CT- negative 05/2018- angry, not inclined for examination but appears in no distress 07/14- continued anger; would not allow full exam 07/15- continued agitation 07/16- improved agitation relative to prior exams -Psychiatry consulted -Presentation likely delirium related with underlying medical conditions -Seroquel 25mg BID -Haldol 1-2mg IM q8hrs if aggressive behavior assuming QTC <460 -Will consider Psychiatry Cardiovascular Chronic systolic heart failure Atrial fibrillation Impression: Rate controlled -Continue Carvedilol 3.125mg BID -Continue ASA 81mg Holding anti-coagulation due to possible procedure Right hand pain Impression: Unclear etiology. Pain reported 07/12-07/13. No radius/ulnar pain. - exam deferred. Wrist XR 07/13- multiple carpal osseous cysts; stable/benign. Some scapholunate joint widening with ? osseous de-mineralization or early erosion on scaphoid side of joint. Possible associated scapholunate ligament injury- if concern MRI wrist-done 07/17 no evidence of osteomyelitis or abscess. Tendinosis. -Will continue current pain medications (morphine PRN) Anemia -Epogen with dialysis Stage I/2 sacral ulcer -Wound care consulted Diabetes mellitus Insulin and diabetic diet -Levemir 7 U BID -Watch hypoglycemia COPD History of WERNER -Continue home meds Hypothyroidism. Chronic -Continue home meds GERD Chronic -Continue home medication PT consulted -Rehab recommended DVT PPX -Bilateral SCD's s/p cath placement, will start heparin tomorrow Discharge Planning: Discharge planning per Case management (5) Acute on chronic kidney failure Qualifiers: Acute renal failure type: unspecified Chronic kidney disease stage: stage 3 ( moderate) Qualified Code(s): N17.9 - Acute kidney failure, unspecified; N18.3 - Chronic kidney disease, stage 3 (moderate)
[2018-07-19] MEDS: Megestrol Acetate Liq 400 MG/10 ML UDC PO SCH (16:31)
[2018-07-20] MEDS: Carboxymethylcellulose 0.5% Opth Drops 15 ML Bottle EACH EYE SCH ×3 (03:38→15:28)
[2018-07-20] MEDS: Levothyroxine 75 MCG Tablet PO SCH (05:56)
[2018-07-20 06:01] LABS: Hematocrit 23.8 % (39.0-51.0); Hemoglobin 7.5 gm/dL (13.0-17.0); Mean Corpuscular HGB Conc 31.6 % (32.0-36.0); Mean Corpuscular Hemoglobin 29.2 pg (27.0-34.0); Mean Corpuscular Volume 92.6 fL (80.0-100.0); Mean Platelet Volume 7.3 fL (7.0-11.0); Platelet Count 227 th/mm3 (150-450); Red Blood Count 2.57 mil/mm3 (4.50-5.90); Red Cell Distribution Width 17.2 % (11.6-17.2); White Blood Count 6.1 th/mm3 (4.0-11.0)
[2018-07-20 06:33] LABS: Calcium 7.6 mg/dL (8.5-10.1); Carbon Dioxide 32.8 meq/L (21.0-32.0); Phosphorus 1.8 mg/dL (2.5-4.9); Potassium 3.1 meq/L (3.5-5.1)
[2018-07-20] MEDS: Insulin NovoLOG Aspart Correctional Sugar Inj SQ SCH ×3 (09:45→17:20)
[2018-07-20] MEDS: Heparin - SQ 10,000 UNITS/ML Vial SQ SCH (09:46)
[2018-07-20] MEDS: QUEtiapine 25 MG Tablet PO SCH (09:47)
[2018-07-20] MEDS: Pantoprazole Sodium 20 MG DR Tablet PO SCH (09:47)
[2018-07-20] MEDS: Megestrol Acetate Liq 400 MG/10 ML UDC PO SCH (09:47)
[2018-07-20] MEDS: Amiodarone 200 MG Tablet PO SCH (09:47)
[2018-07-20] MEDS: Polyethylene Glycol 3350 17 GM Packet PO SCH (09:47)
[2018-07-20] MEDS: Tiotropium Bromide 18 MCG/ACT Inhaler INH SCH (09:48)
[2018-07-20] MEDS: Clotrimazole 1% Cream 15 GM Tube TOPICAL SCH (09:48)
[2018-07-20] MEDS: Heparin Central Flush 100 UNIT/ML 5 ML Vial IV.FLUSH SCH (10:53)
[2018-07-20 13:32] VITALS: RESP 16; O2SAT 98
--- NOTE | 2018-07-20 13:44 | P.PNID ---
Subjective Remarks: Patient is awake and alert. Notes that his left heel hurts. No fever. Repeat urine culture has no growth. This is a 72-year-old white male who is a longterm resident. The patient has multiple medical problems. He presented to the emergency department on 07/09/2018 with fever. He was recently treated in this hospital for sepsis and transferred back to the longterm facility. He reportedly also had hypotension. He was extremely lethargic also yesterday. The patient has end-stage renal disease and undergoes hemodialysis. This consultation was requested for infectious disease management of sepsis. Past Medical History: PAST MEDICAL HISTORY: Hypertension, diabetes mellitus, dementia, chronic kidney disease stage IV the patient receiving hemodialysis, benign prostatic hypertrophy, COPD, coronary artery disease, hyperlipidemia, hypothyroidism, history of non-ST elevated myocardial infarction, posttraumatic stress disorder, sleep apnea, history of coronary stent, history of TURP, history of nephrostomy. Allergies/Adverse Reactions: Allergies celecoxib [From Celebrex] Allergy (Severe, Verified 07/09/18 11:57) Itching ciprofloxacin Allergy (Severe, Verified 07/09/18 11:57) Itching diatrizoate meglumine Allergy (Severe, Verified 07/09/18 11:57) Itching gadobenic acid Allergy (Severe, Verified 07/09/18 11:57) Itching gadodiamide Allergy (Severe, Verified 07/09/18 11:57) Itching gadoteridol Allergy (Severe, Verified 07/09/18 11:57) Itching iodixanol Allergy (Severe, Verified 07/09/18 11:57) Itching iohexol Allergy (Severe, Verified 07/09/18 11:57) Itching levofloxacin Allergy (Severe, Verified 07/09/18 11:57) Itching ezetimibe [From Zetia] Allergy (Intermediate, Verified 07/09/18 11:57) Itching prochlorperazine [From Compazine] Allergy (Unknown, Verified 05/10/18 20:51) Itching red dye Allergy (Unknown, Verified 05/10/18 20:51) Itching Objective Vital Signs 07/19/18 16:00 07/19/18 20:00 07/20/18 00:00 Temperature 98.4 F 98 F 97.9 F Pulse Rate 75 73 79 Respiratory Rate 16 18 18 Blood Pressure 109/52 L 106/57 L 108/59 L Pulse Oximetry 96 95 98 07/20/18 08:00 07/20/18 12:00 Temperature 96.8 F L 97.0 F L Pulse Rate 70 76 Respiratory Rate 19 16 Blood Pressure 104/46 L 109/52 L Pulse Oximetry 99 98 Intake & Output 07/19/18 07/20/18 07/20/18 18:59 06:59 18:59 Intake Total 560 / 560 120 / 120 Output Total 500 / 500 Balance 60 / 60 120 / 120 Weight 89.6 kg Intake: IV 200 / 200 Flexbumin 25% Inj 100 ML @ 60 100 / 100 mls/hr IV.SIG WITH DIALYSIS PRN Rx#:[id number] INVanz Inj 500 MG In NS Inj 100 100 / 100 ML @ 100 mls/hr IV.SIG Q24H [facility] Rx#:[id number] Oral 360 / 360 120 / 120 Output: Hemodialysis Amount 500 / 500 Other: # Voids 3 Date of Last Bowel Movement 07/18/18 07/18/18 03:59 Catheterized Urine Urine Culture - Final No growth in 48 hours Lab - Hematology Results 07/20/18 05:10 WBC 6.1 RBC 2.57 L Hgb 7.5 L Hct 23.8 L MCV 92.6 MCH 29.2 MCHC 31.6 L RDW 17.2 Plt Count 227 MPV 7.3 Lab - Chemistry Results 07/18/18 07/19/18 07/19/18 21:54 09:10 11:55 Sodium Potassium Chloride Carbon Dioxide Anion Gap BUN Creatinine Estimated GFR POC Glucose 73 93 85 Random Glucose Calcium Phosphorus Albumin 07/19/18 07/20/18 07/20/18 17:47 05:10 07:40 Sodium 144 Potassium 3.1 L Chloride 105 Carbon Dioxide 32.8 H Anion Gap 6 BUN 9 Creatinine 3.15 H Estimated GFR 19 L POC Glucose 81 89 Random Glucose 74 Calcium 7.6 L Phosphorus 1.8 L Albumin 2.0 L Imaging: ITS Impressions Chest X-Ray 07/09/18 11:59 CONCLUSION: Dialysis catheter in good position. The lungs are clear. Catheter Placement 07/10/18 00:00 CONCLUSION: 1. Uncomplicated line placement as above. Tube Removal 07/10/18 00:00 CONCLUSION: 1. Uncomplicated Permcath removal. Wrist X-Ray 07/13/18 00:00 CONCLUSION: 1. Multiple carpal osseous cysts as above. These are basically stable and overtly benign. 2. However, there appears to be some interval widening of the scapholunate joint with questionable regional osseous demineralization or early erosion on the scaphoid side of the joint. Findings could be due to previous trauma or crystalline arthropathy such as gouty arthritis. 3. Possible associated injury to the scapholunate ligament. If there is a clinical concern, MRI of the wrist could be performed for further characterization Central Venous Line 07/16/18 00:00 CONCLUSION: 1. Uncomplicated PermaCath placement as above. Hand MRI 07/17/18 07:00 CONCLUSION: 1. Motion degraded study. 2. An apparent extensor tendinosis/tenosynovitis of the ring finger, nonspecific. A primary systemic inflammatory process would be conceivable. Infection is considered less likely. 3. Diffuse synovitis and osteopenia of the carpus and the metacarpal bases which may also be an inflammatory arthropathy. The widening of the scapholunate interval is probably nonacute and could be related to a long-standing inflammatory arthropathy or previous trauma. 4. There is proximal hand muscle edema, especially in the thenar region. Exact etiology is uncertain. Median neuropathy would be possible which may be reactive or related to carpal tunnel syndrome. Grossly, I don't see responsible mass or ganglion. 5. No fractures or subluxations are seen of the bones of the right hand. No evidence of osteomyelitis or abscess. Physical Exam: PHYSICAL EXAMINATION: GENERAL: No acute distress. HEENT: Head is atraumatic. Extraocular muscles grossly intact. Pupils reactive to light. No icterus. Oropharynx moist. No visible lesions. NECK: Supple. No adenopathy. LUNGS: Decreased breath sounds. HEART: Regular S1, S2. No audible murmur. ABDOMEN: Bowel sounds present. Soft, no tenderness. EXTREMITIES: No clubbing, cyanosis or edema. decreased erythema at the left heel. SKIN: No rash. NEUROLOGIC: Non focal. awake and alert. PSYCHIATRIC: Calm and cooperative. Assessment and Plan - Plan IMPRESSION: Sepsis, likely arising from urinary tract infection versus dialysis catheter infection. Gram negative ESBL e. coli. UTI resolved. RECOMMENDATIONS: Stop Ertapenem. I will sign off now.
[2018-07-20] MEDS: Ertapenem Inj 500 MG in Sodium Chlor 0.9% Inj 100 ML IV.SIG SCH (14:11)
--- NOTE | 2018-07-20 14:15 | P.PN ---
Subjective Interval history: Resting quietly in bed. Complains that he has not been able to sleep well. Otherwise no problems. Physical Exam Vital signs: Vital Signs 07/19/18 16:00 07/19/18 20:00 07/20/18 00:00 Temperature 98.4 F 98 F 97.9 F Pulse Rate 75 73 79 Respiratory Rate 16 18 18 Blood Pressure 109/52 L 106/57 L 108/59 L Pulse Oximetry 96 95 98 07/20/18 08:00 07/20/18 12:00 Temperature 96.8 F L 97.0 F L Pulse Rate 70 76 Respiratory Rate 19 16 Blood Pressure 104/46 L 109/52 L Pulse Oximetry 99 98 Intake & Output 07/19/18 07/20/18 07/20/18 18:59 06:59 18:59 Intake Total 560 / 560 120 / 120 Output Total 500 / 500 Balance 60 / 60 120 / 120 Weight 89.6 kg Intake: IV 200 / 200 Flexbumin 25% Inj 100 ML @ 60 100 / 100 mls/hr IV.SIG WITH DIALYSIS PRN Rx#:[id number] INVanz Inj 500 MG In NS Inj 100 100 / 100 ML @ 100 mls/hr IV.SIG Q24H [facility]O Rx#:[id number] Oral 360 / 360 120 / 120 Output: Hemodialysis Amount 500 / 500 Other: # Voids 3 Date of Last Bowel Movement 07/18/18 Narrative: GENERAL: Well-nourished, well-developed adult male in no acute distress. SKIN: Warm and dry. Some erythema in groin. HEAD: Atraumatic. Normocephalic. CARDIOVASCULAR: Regular rate and rhythm. RESPIRATORY: No accessory muscle use. Clear to auscultation. Breath sounds equal bilaterally. GASTROINTESTINAL: Abdomen soft, non-tender, non-distended. Positive bowel sounds. MUSCULOSKELETAL: no edema. Right wrist is tender. Movements are painful. NEUROLOGICAL: Awake and alert. No obvious cranial nerve deficits. Motor grossly within normal limits. Normal speech. - Urinary Catheter Management Indwelling Urethral Catheter Cath placed during this visit: yes, but has since been removed by the nurse Reason for continuing: Acute urinary retention Insertion date: 07/09/18 Insertion time: 17:30 Removal date: 07/11/18 Removal time: 15:35 Straight Cath placed during this visit: no Results - Labs CBC & Chem 7: 07/20/18 05:10 07/20/18 05:10 Laboratory Results - last 24 hr 07/19/18 07/20/18 07/20/18 17:47 05:10 05:10 WBC 6.1 RBC 2.57 L Hgb 7.5 L Hct 23.8 L MCV 92.6 MCH 29.2 MCHC 31.6 L RDW 17.2 Plt Count 227 MPV 7.3 Sodium 144 Potassium 3.1 L Chloride 105 Carbon Dioxide 32.8 H Anion Gap 6 BUN 9 Creatinine 3.15 H Estimated GFR 19 L POC Glucose 81 Random Glucose 74 Calcium 7.6 L Phosphorus 1.8 L Albumin 2.0 L 07/20/18 07:40 WBC RBC Hgb Hct MCV MCH MCHC RDW Plt Count MPV Sodium Potassium Chloride Carbon Dioxide Anion Gap BUN Creatinine Estimated GFR POC Glucose 89 Random Glucose Calcium Phosphorus Albumin Microbiology 07/18/18 03:59 Catheterized Urine Urine Culture - Final No growth in 48 hours - Procedures NONE Assessment and Plan - Assessment (1) ESBL (extended spectrum beta-lactamase) producing bacteria infection Code(s): A49.9 - Bacterial infection, unspecified; Z16.12 - Extended spectrum beta lactamase (ESBL) resistance Status: Acute (2) Sepsis Code(s): A41.9 - Sepsis, unspecified organism Status: Acute (3) Acute alteration in mental status Code(s): R41.82 - Altered mental status, unspecified Status: Acute (4) COPD (chronic obstructive pulmonary disease) Code(s): J44.9 - Chronic obstructive pulmonary disease, unspecified Status: Acute (5) Acute on chronic kidney failure Code(s): N17.9 - Acute kidney failure, unspecified; N18.9 - Chronic kidney disease, unspecified Status: Acute (6) Acute UTI Code(s): N39.0 - Urinary tract infection, site not specified Status: Acute (7) Anemia of renal disease Code(s): D63.1 - Anemia in chronic kidney disease Status: Acute (8) ESRD (end stage renal disease) on dialysis Code(s): N18.6 - End stage renal disease; Z99.2 - Dependence on renal dialysis Status: Acute (9) Septic shock Code(s): A41.9 - Sepsis, unspecified organism; R65.21 - Severe sepsis with septic shock Status: Acute - Plan Mr. Monteiro is a 72 yo male with: 07/20: Stable. ID has signed off. Okay to transfer back to SNF once cleared by nephro. Severe Sepsis on admission Acute UTI with pyuria -On admission, patient with leukocytosis of 17, temperature 100.4, lactate 2.3, gross pus in urine as described by ED physician, urinary retention Urine culture 07/09- ESBL UTI Blood cultures negative x5 days (07/09) Central venous catheter line negative x2 days (07/10) -ID consulted -Stop Zosyn/Vancomycin -Ertapenem adjusted for renal function -Repeat urine culture Monday; clear. Antibiotics stopped 07/20. -Urinary catheter replaced 07/10 End-stage renal disease. Impression: On chronic dialysis TTS. Permacath removed 07/10 -Nephrology consulted -Continue dialysis -Possible Permacath replacement Monday if cleared by ID Neuro Dementia Confusion/Altered mental status Poor oral intake Impression: Metabolic encephalopathy on admission resolved but patient confused at baseline. Patient agitated after dialysis 2 days prior- work-up was negative (VS normal. Clear speech; no focal CN or peripheral defects. CBC/CMP/troponin/ reassuring. Ammonia wnl. No hypoxia. PMH COPD. s/p Haldol 1mg x2 IM) Head CT- negative 05/2018- angry, not inclined for examination but appears in no distress 07/14- continued anger; would not allow full exam 07/15- continued agitation 07/16- improved agitation relative to prior exams -Psychiatry consulted -Presentation likely delirium related with underlying medical conditions -Seroquel 25mg BID -Haldol 1-2mg IM q8hrs if aggressive behavior assuming QTC <460 -Will consider Psychiatry Cardiovascular Chronic systolic heart failure Atrial fibrillation Impression: Rate controlled -Continue Carvedilol 3.125mg BID -Continue ASA 81mg Holding anti-coagulation due to possible procedure Right hand pain Impression: Unclear etiology. Pain reported 07/12-07/13. No radius/ulnar pain. - exam deferred. Wrist XR 07/13- multiple carpal osseous cysts; stable/benign. Some scapholunate joint widening with ? osseous de-mineralization or early erosion on scaphoid side of joint. Possible associated scapholunate ligament injury- if concern MRI wrist-done 07/17 no evidence of osteomyelitis or abscess. Tendinosis. -Will continue current pain medications (morphine PRN) Anemia -Epogen with dialysis Stage I/2 sacral ulcer -Wound care consulted Diabetes mellitus Insulin and diabetic diet -Levemir 7 U BID -Watch hypoglycemia COPD History of WERNER -Continue home meds Hypothyroidism. Chronic -Continue home meds GERD Chronic -Continue home medication PT consulted -Rehab recommended DVT PPX -Bilateral SCD's s/p cath placement, will start heparin tomorrow Discharge Planning: Discharge planning per Case management (5) Acute on chronic kidney failure Qualifiers: Acute renal failure type: unspecified Chronic kidney disease stage: stage 3 ( moderate) Qualified Code(s): N17.9 - Acute kidney failure, unspecified; N18.3 - Chronic kidney disease, stage 3 (moderate)
--- NOTE | 2018-07-20 14:47 | P.DS ---
Date of admission: 07/09/18 15:20 Primary care physician: Landen Haley MD Attending physician on discharge: Boom Matos Anticipated date of discharge: 07/20/18 Brief History from admission: 72-year-old male with a history of end-stage renal disease, CVA, dementia, chronic systolic heart failure, diabetes, recent admission last month discharged on June 20 after being treated for septic shock secondary to UTI. Patient presents today having been found to have a fever in clinic and has been sent in. Patient is arousable to verbal stimulation, says he has not been feeling well, and indicates that his stomach is painful in the suprapubic region. He denies any chest pain. Denies shortness of breath. He is oriented to person and place, not to year. DS: Diagnosis - Discharge Diagnosis (1) ESBL (extended spectrum beta-lactamase) producing bacteria infection Status: Resolved (2) Sepsis Status: Resolved (3) Acute alteration in mental status Status: Resolved (4) COPD (chronic obstructive pulmonary disease) Status: Chronic (5) Acute on chronic kidney failure Status: Resolved (6) Acute UTI Status: Resolved (7) Anemia of renal disease Status: Chronic (8) ESRD (end stage renal disease) on dialysis Status: Chronic (9) Septic shock Status: Resolved DS: Summary Hospital Course: Mr. Monteiro is a 72 yo male with a past medical history of dementia, diabetes, ES RD on dialysis, anemia, COPD, hypothyroidism, GERD who lives at a SNF. Admitted with sepsis due to UTI. Cultures grew ESBL-treated with ertapenem until cultures clear. Initially presented with metabolic encephalopathy however has improved and is now at his baseline. - Time Spent with Patient Total time spent providing and/or coordinating discharge services: Less than 30 minutes Exam Vital signs: Vital Signs 07/19/18 16:00 07/19/18 20:00 07/20/18 00:00 Temperature 98.4 F 98 F 97.9 F Pulse Rate 75 73 79 Respiratory Rate 16 18 18 Blood Pressure 109/52 L 106/57 L 108/59 L Pulse Oximetry 96 95 98 07/20/18 08:00 07/20/18 12:00 Temperature 96.8 F L 97.0 F L Pulse Rate 70 76 Respiratory Rate 19 16 Blood Pressure 104/46 L 109/52 L Pulse Oximetry 99 98 Intake & Output 0907/20/18 07/20/18 18:59 06:59 18:59 Intake Total 560 / 560 120 / 120 Output Total 500 / 500 Balance 60 / 60 120 / 120 Weight 89.6 kg Intake: IV 200 / 200 Flexbumin 25% Inj 100 ML @ 60 100 / 100 mls/hr IV.SIG WITH DIALYSIS PRN Rx#:[id number] INVanz Inj 500 MG In NS Inj 100 100 / 100 ML @ 100 mls/hr IV.SIG Q24H [facility] Rx#:[id number] Oral 360 / 360 120 / 120 Output: Hemodialysis Amount 500 / 500 Other: # Voids 3 Date of Last Bowel Movement 07/18/18 Narrative: GENERAL: Well-nourished, well-developed adult male in no acute distress. SKIN: Warm and dry. Some erythema in groin. HEAD: Atraumatic. Normocephalic. CARDIOVASCULAR: Regular rate and rhythm. RESPIRATORY: No accessory muscle use. Clear to auscultation. Breath sounds equal bilaterally. GASTROINTESTINAL: Abdomen soft, non-tender, non-distended. Positive bowel sounds. MUSCULOSKELETAL: no edema. Right wrist is tender. Movements are painful. NEUROLOGICAL: Awake and alert. No obvious cranial nerve deficits. Motor grossly within normal limits. Normal speech. Results Procedures completed during hospitalization: NONE Labs on day of discharge: Labs from last 24 hours 07/20/18 07/20/18 07/20/18 07:40 05:10 05:10 WBC 6.1 RBC 2.57 L Hgb 7.5 L Hct 23.8 L MCV 92.6 MCH 29.2 MCHC 31.6 L RDW 17.2 Plt Count 227 MPV 7.3 Sodium 144 Potassium 3.1 L Chloride 105 Carbon Dioxide 32.8 H Anion Gap 6 BUN 9 Creatinine 3.15 H Estimated GFR 19 L POC Glucose 89 Random Glucose 74 Calcium 7.6 L Phosphorus 1.8 L Albumin 2.0 L 07/19/18 17:47 WBC RBC Hgb Hct MCV MCH MCHC RDW Plt Count MPV Sodium Potassium Chloride Carbon Dioxide Anion Gap BUN Creatinine Estimated GFR POC Glucose 81 Random Glucose Calcium Phosphorus Albumin - Impressions ITS Impressions Chest X-Ray 07/09/18 11:59 CONCLUSION: Dialysis catheter in good position. The lungs are clear. Catheter Placement 07/10/18 00:00 CONCLUSION: 1. Uncomplicated line placement as above. Tube Removal 07/10/18 00:00 CONCLUSION: 1. Uncomplicated Permcath removal. Wrist X-Ray 07/13/18 00:00 CONCLUSION: 1. Multiple carpal osseous cysts as above. These are basically stable and overtly benign. 2. However, there appears to be some interval widening of the scapholunate joint with questionable regional osseous demineralization or early erosion on the scaphoid side of the joint. Findings could be due to previous trauma or crystalline arthropathy such as gouty arthritis. 3. Possible associated injury to the scapholunate ligament. If there is a clinical concern, MRI of the wrist could be performed for further characterization Central Venous Line 07/16/18 00:00 CONCLUSION: 1. Uncomplicated PermaCath placement as above. Hand MRI 07/17/18 07:00 CONCLUSION: 1. Motion degraded study. 2. An apparent extensor tendinosis/tenosynovitis of the ring finger, nonspecific. A primary systemic inflammatory process would be conceivable. Infection is considered less likely. 3. Diffuse synovitis and osteopenia of the carpus and the metacarpal bases which may also be an inflammatory arthropathy. The widening of the scapholunate interval is probably nonacute and could be related to a long-standing inflammatory arthropathy or previous trauma. 4. There is proximal hand muscle edema, especially in the thenar region. Exact etiology is uncertain. Median neuropathy would be possible which may be reactive or related to carpal tunnel syndrome. Grossly, I don't see responsible mass or ganglion. 5. No fractures or subluxations are seen of the bones of the right hand. No evidence of osteomyelitis or abscess. Discharge Plan - Discharge Disposition Patient Disposition: Discharge to SNF - Discharge Condition Condition: Stable - Discharge Order Discharge Orders: Discharge Order (Routine); Ordered 07/20/18 Ordered By: Janis Castañeda - Physicians Team Primary Care Provider: Landen Haley Attending Provider: Boom Matos Other Providers: Pavel Perry MD ; Norman Tabares MD ; [facility] ; Freddy Hicks MD
--- NOTE | 2018-07-20 15:19 | P.PNNP ---
Subjective Interval history: patient was seen and examined. To be discharged today. His oral intake is poor. I encouraged him to eat high protein diet. Physical Exam Vital signs: Vital Signs 07/19/18 16:00 07/19/18 20:00 07/20/18 00:00 Temperature 98.4 F 98 F 97.9 F Pulse Rate 75 73 79 Respiratory Rate 16 18 18 Blood Pressure 109/52 L 106/57 L 108/59 L Pulse Oximetry 96 95 98 07/20/18 08:00 07/20/18 12:00 Temperature 96.8 F L 97.0 F L Pulse Rate 70 76 Respiratory Rate 19 16 Blood Pressure 104/46 L 109/52 L Pulse Oximetry 99 98 Intake & Output 07/19/18 07/20/18 07/20/18 18:59 06:59 18:59 Intake Total 560 / 560 120 / 120 Output Total 500 / 500 Balance 60 / 60 120 / 120 Weight 89.6 kg Intake: IV 200 / 200 Flexbumin 25% Inj 100 ML @ 60 100 / 100 mls/hr IV.SIG WITH DIALYSIS PRN Rx#:[id number] INVanz Inj 500 MG In NS Inj 100 100 / 100 ML @ 100 mls/hr IV.SIG Q24H [facility]O Rx#:[id number] Oral 360 / 360 120 / 120 Output: Hemodialysis Amount 500 / 500 Other: # Voids 3 Date of Last Bowel Movement 07/18/18 Narrative: GENERAL: Well-nourished, well-developed adult male in no acute distress. SKIN: Warm and dry. Some erythema in groin. HEAD: Atraumatic. Normocephalic. CARDIOVASCULAR: Regular rate and rhythm. RESPIRATORY: No accessory muscle use. Clear to auscultation. Breath sounds equal bilaterally. GASTROINTESTINAL: Abdomen soft, non-tender, non-distended. Positive bowel sounds. MUSCULOSKELETAL: no edema. Right wrist is tender. Movements are painful. NEUROLOGICAL: Awake and alert. No obvious cranial nerve deficits. Motor grossly within normal limits. Normal speech. - Urinary Catheter Management Indwelling Urethral Catheter Cath placed during this visit: yes, but has since been removed by the nurse Reason for continuing: Acute urinary retention Insertion date: 07/09/18 Insertion time: 17:30 Removal date: 07/11/18 Removal time: 15:35 Straight Cath placed during this visit: no Assessment and Plan - Assessment (1) ESRD (end stage renal disease) on dialysis Code(s): N18.6 - End stage renal disease; Z99.2 - Dependence on renal dialysis Status: Chronic Plan: Dialysis will be TTS. Monitor fluid and electrolytes. UTI treated with Invanz PermCath placed. To be discharged today (2) Sepsis Code(s): A41.9 - Sepsis, unspecified organism Status: Resolved Plan: improved. . (3) Anemia of renal disease Code(s): D63.1 - Anemia in chronic kidney disease Status: Chronic Plan: Epogen with dialysis. (4) Atrial fibrillation Code(s): I48.91 - Unspecified atrial fibrillation Status: Acute Plan: Monitor heart rate. Monitor on telemetry
[2018-07-20 17:39] VITALS: BP 112/54; PULSE 74; TEMP 97.8
== END 2018-07-20 19:00 ==
LOC: NEPC 11:19 → NEDA 15:20 → N05 17:45
PROVIDERS: ADMIT Hospitalist; ATTEND Hospitalist

== ENCOUNTER 2018-07-27 16:54 | Observation (INO) ==
[2018-07-27] MEDS ORDERED: Vancomycin Consult Pharmacy OTHER ONE (17:14)
[2018-07-27] MEDS ORDERED: Vancomycin Inj 1,000 MG in Sodium Chlor 0.9% Inj 250 ML IV.SIG ONE (17:16)
[2018-07-27 17:44] LABS: Baso # (Auto) 0.1 th/mm3 (0.0-0.2); Baso % (Auto) 0.7 % (0.0-2.0); Eos # (Auto) 0.5 th/mm3 (0.0-0.4); Eos % (Auto) 5.3 % (0.0-4.0); Hematocrit 26.7 % (39.0-51.0); Hemoglobin 8.7 gm/dL (13.0-17.0); Lymph % (Auto) 21.1 % (9.0-44.0); Mean Corpuscular HGB Conc 32.6 % (32.0-36.0); Mean Corpuscular Hemoglobin 29.6 pg (27.0-34.0); Mean Corpuscular Volume 90.7 fL (80.0-100.0); Mean Platelet Volume 7.7 fL (7.0-11.0); Mono # (Auto) 1.2 th/mm3 (0.0-0.9); Mono % (Auto) 12.5 % (0.0-8.0); Neut # (Auto) 5.7 th/mm3 (1.8-7.7); Neut % (Auto) 60.4 % (16.0-70.0); Platelet Count 259 th/mm3 (150-450); Red Blood Count 2.94 mil/mm3 (4.50-5.90); Red Cell Distribution Width 17.5 % (11.6-17.2); White Blood Count 9.4 th/mm3 (4.0-11.0)
[2018-07-27] MEDS ORDERED: Sodium Chlor 0.9% Inj 250 ML IV.SIG SCH (18:00)
--- NOTE | 2018-07-27 18:04 | ED ---
HPI General Chief complaint: Diabetic Stated complaint: Diabetic Issue Time Seen by Provider: 07/27/18 16:57 Source: patient and EMS Mode of arrival: EMS History of Present Illness HPI narrative: Patient is a 72-year-old male who presents from the residential with complaint of hypoglycemia. Per report his blood sugar was checked and found to be in the 40s. He was given oral glucagon by the residential facility at the time of EMS arrival. EMS also reports that they rechecked his sugar and found it to be in the 40s at which time they gave him 25 g of D10. Patient is unable to provide much history and states that he is just tired. He denies pain to his chest, abdomen, back. He denies headache. Per the paperwork brought with him he is on several different formulations of insulin and is end-stage renal disease on dialysis with dialysis on - Saturdays. Onset (ago): unknown Severity: mild Relieving factors: none Exacerbating factors: none Treatments prior to arrival: Reports none Related Data Home Medications Medication Instructions Recorded Confirmed apixaban 2.5 mg PO BID 05/10/18 07/27/18 aspirin 81 mg PO DAILY 05/10/18 07/27/18 atorvastatin 40 mg PO DAILY 05/10/18 07/27/18 ipratropium-albuterol 3 ml INHALATION Q4H PRN 05/10/18 07/27/18 omeprazole 20 mg PO DAILY 05/10/18 07/27/18 clotrimazole 1 applic TOPICAL BID 05/31/18 07/27/18 tiotropium bromide [Spiriva with 1 cap INHALATION DAILY 05/31/18 07/27/18 HandiHaler] Previous Rx's Medication Instructions Recorded albuterol sulfate 2.5 mg NEB Q2HR NEB PRN ml 06/20/18 amiodarone 200 mg PO Q12HR tab 06/20/18 artificial tears(hypromellose) 1 drops EACH EYE BID g 06/20/18 [GenTeal Severe] ascorbic acid (vitamin C) [Vitamin 500 mg PO DAILY tab 06/20/18 C] carvedilol [Coreg] 3.125 mg PO BID@0600,1800 tab 06/20/18 ferrous sulfate 300 mg PO DAILY ml 06/20/18 insulin aspart U-100 [Novolog 0 unit SUB-Q Q4HR ml 06/20/18 U-100 Insulin aspart] insulin aspart U-100 [Novolog 5 unit SUB-Q TIDAC ml 06/20/18 U-100 Insulin aspart] insulin detemir U-100 [Levemir 10 unit SUB-Q BID ml 06/20/18 U-100 Insulin] levothyroxine [Synthroid] 75 mcg PO DAILY@0600 tab 06/20/18 levothyroxine [Synthroid] 100 mcg PO DAILY@0600 tab 06/20/18 nitroglycerin [Nitrostat] 0.4 mg SUBLINGUAL Q5M PRN tab 06/20/18 polyethylene glycol 3350 17 gm NG/OG BID ea 06/20/18 sevelamer carbonate [Renvela] 800 mg PO TIDAC #0 tab 06/20/18 pregabalin [Lyrica] 75 mg PO BID #6 cap 07/20/18 Allergies Allergy/AdvReac Type Severity Reaction Status Date / Time celecoxib [From Celebrex] Allergy Severe Itching Verified 07/09/18 11:57 ciprofloxacin Allergy Severe Itching Verified 07/09/18 11:57 diatrizoate meglumine Allergy Severe Itching Verified 07/09/18 11:57 gadobenic acid Allergy Severe Itching Verified 07/09/18 11:57 gadodiamide Allergy Severe Itching Verified 07/09/18 11:57 gadoteridol Allergy Severe Itching Verified 07/09/18 11:57 iodixanol Allergy Severe Itching Verified 07/09/18 11:57 iohexol Allergy Severe Itching Verified 07/09/18 11:57 levofloxacin Allergy Severe Itching Verified 07/09/18 11:57 ezetimibe [From Zetia] Allergy Intermediate Itching Verified 07/09/18 11:57 prochlorperazine Allergy Unknown Itching Verified 05/10/18 20:51 [From Compazine] red dye Allergy Unknown Itching Verified 05/10/18 20:51 Review of Systems ROS: all other systems reviewed are negative [facility] Medical History Medical History Anginal equivalent (Acute) Anticoagulant long-term use (Acute) Dysphasia (Acute) Occlusion of right internal carotid artery (Acute) Chronic kidney disease, stage IV (severe) (Acute) BPH (benign prostatic hyperplasia) (Acute) Diabetes mellitus (Acute) Sleep apnea (Acute) PTSD (post-traumatic stress disorder) (Acute) COPD (chronic obstructive pulmonary disease) (Chronic) Acute on chronic systolic (congestive) heart failure (Acute) Atrial fibrillation (Acute) Atherosclerotic cardiovascular disease (Acute) NSTEMI (non-ST elevated myocardial infarction) (Acute) Adjustment disorder (Acute) Chronic use of benzodiazepine for therapeutic purpose (Acute) Coronary artery disease (Acute) Dementia (Acute) Essential hypertension (Acute) Fibromyalgia (Acute) Hyperlipidemia (Acute) Hypertension (Acute) Hypothyroid (Acute) Nephrolithiasis (Acute) Surgical History Surgical History History of liver biopsy (Acute) H/O hand surgery (Acute) S/P TURP (Acute) S/P coronary artery stent placement (Acute) H/O nephrostomy (Acute) Presence of coronary angioplasty implant and graft (Acute) Family History Family History Mother Family history of diabetes mellitus Social History Social History Substance History: Unable to Obtain Second Hand Smoke Exposure: No Smoking Status: Unknown if ever smoked Tobacco Type: Cigarettes Years Smoked: 30 Number of Pack-Years (if former smoker): 30 How Often Do You Have a Drink Containing Alcohol: Unable to Obtain Recent Travel in [facility] within the Last 8 Weeks: No Recent Out of Country Travel within the Last 8 Weeks: No Immunization History Tetanus Immunization: Unable to Assess Exam Narrative Exam Narrative: GENERAL: Chronically ill-appearing male SKIN: Focused skin assessment warm/dry. No rashes nor erythema. Several areas of dry, flaky skin. HEAD: Atraumatic. Normocephalic. EYES: Pupils equal and round. No scleral icterus. No injection or drainage. ENT: No nasal bleeding or discharge. Mucous membranes pink and moist. NECK: Trachea midline. No JVD. CARDIOVASCULAR: Regular rate and rhythm. No murmur appreciated. Intact and equal peripheral pulses. There is a central line to his right chest without any surrounding erythema nor drainage. RESPIRATORY: No accessory muscle use. Clear to auscultation. Breath sounds equal bilaterally. GASTROINTESTINAL: Abdomen soft, non-tender, nondistended. Hepatic and splenic margins not palpable. MUSCULOSKELETAL: No obvious deformities. No clubbing. No cyanosis. No edema. NEUROLOGICAL: Awake but tired and confused. No obvious cranial nerve deficits. Will move all 4 extremities. Normal speech. PSYCHIATRIC: Appropriate mood and affect; insight and judgment normal. Course Initial Documented Vital Signs Temperature 97.7 F 07/27/18 17:04 Pulse Rate 58 L 07/27/18 17:04 Respiratory Rate 17 07/27/18 17:04 Blood Pressure 87/51 L 07/27/18 17:04 Pulse Oximetry 98 07/27/18 17:04 Last Documented Vital Signs Temperature 97.7 F 07/27/18 17:04 Pulse Rate 54 L 07/27/18 18:58 Respiratory Rate 16 07/27/18 18:58 Blood Pressure 101/54 L 07/27/18 18:58 Pulse Oximetry 96 07/27/18 18:58 Medical Decision Making MDM Narrative Medical decision making narrative: Patient is a 72-year-old male who presents with complaint of hypoglycemia. He was hypotensive on arrival but not tachycardic which may be secondary to the fact that he is on beta-blockers. Sepsis protocol was initiated and he was given antibiotics presuming bacteremia after cultures were drawn from his catheter, but he was only given a 250 cc bolus of fluid as he is end-stage renal disease his blood pressure did improve with that 250 cc bolus and has remained stable since then. Labs are relatively unremarkable except for his baseline renal function dysfunction and hypokalemia. He has been given 20 mEq of potassium orally to try and help slowly increase his potassium but as he is end-stage renal he will likely retain this. I spoke with Dr. Baugh, advertising account executive on-call, whom thought he was okay to go to the hospitalist service. I then spoke with Dr. Vasquez, hospitalist on-call, whom agreed to his admission for presumed bacteremia and hypoglycemia. Medical Screen Exam Complete: Yes Emergency Medical Condition: Yes Differential Diagnosis Differential Diagnosis: Differential diagnosis includes but is not limited to insulin overdose, bacteremia, UTI. Medical Records Medical records reviewed: Yes I reviewed the patient's medical records. Lab Data Lab results reviewed: Yes I reviewed the patient's lab results. Result diagrams: 07/27/18 17:20 07/27/18 17:20 Lab Results 07/27/18 07/27/18 07/27/18 Range/Units 17:06 17:20 17:20 WBC 9.4 (4.0-11.0) th/mm3 RBC 2.94 L (4.50-5.90) mil/mm3 Hgb 8.7 L (13.0-17.0) gm/dL Hct 26.7 L (39.0-51.0) % MCV 90.7 (80.0-100.0) fL MCH 29.6 (27.0-34.0) pg MCHC 32.6 (32.0-36.0) % RDW 17.5 H (11.6-17.2) % Plt Count 259 (150-450) th/mm3 MPV 7.7 (7.0-11.0) fL Neut % (Auto) 60.4 (16.0-70.0) % Lymph % (Auto) 21.1 (9.0-44.0) % Hardy % (Auto) 12.5 H (0.0-8.0) % Eos % (Auto) 5.3 H (0.0-4.0) % Baso % (Auto) 0.7 (0.0-2.0) % Neut # (Auto) 5.7 (1.8-7.7) th/mm3 Lymph # (Auto) 2.0 (1.0-4.8) th/mm3 Hardy # (Auto) 1.2 H (0.0-0.9) th/mm3 Eos # (Auto) 0.5 H (0.0-0.4) th/mm3 Baso # (Auto) 0.1 (0.0-0.2) th/mm3 WBC Differential . Differential Comment Auto diff final Sodium 141 (136-145) meq/L Potassium 2.7 L* (3.5-5.1) meq/L Chloride 102 (98-107) meq/L Carbon Dioxide 27.8 (21.0-32.0) meq/L Anion Gap 11 (5-15) meq/L BUN 13 (7-18) mg/dL Creatinine 3.09 H (0.60-1.30) mg/dL Estimated GFR 20 L (>89) mL/min POC Glucose 194 H (68-110) mg/dl Random Glucose 131 H (74-106) mg/dL Lactic Acid (0.4-2.0) mmol/L Calcium 7.1 L* (8.5-10.1) mg/dL Prot Corrected Calcium 8.2 L (8.5-10.1) mg/dL Phosphorus 1.9 L (2.5-4.9) mg/dL Total Bilirubin 0.3 (0.2-1.0) mg/dL AST 15 (15-37) U/L ALT 6 L (12-78) U/L Alkaline Phosphatase 119 H (45-117) U/L Troponin I Less than 0.02 L (0.02-0.05) ng/mL Total Protein 5.0 L (6.4-8.2) g/dL Albumin 1.8 L (3.4-5.0) g/dL 07/27/18 Range/Units 17:20 WBC (4.0-11.0) th/mm3 RBC (4.50-5.90) mil/mm3 Hgb (13.0-17.0) gm/dL Hct (39.0-51.0) % MCV (80.0-100.0) fL MCH (27.0-34.0) pg MCHC (32.0-36.0) % RDW (11.6-17.2) % Plt Count (150-450) th/mm3 MPV (7.0-11.0) fL Neut % (Auto) (16.0-70.0) % Lymph % (Auto) (9.0-44.0) % Hardy % (Auto) (0.0-8.0) % Eos % (Auto) (0.0-4.0) % Baso % (Auto) (0.0-2.0) % Neut # (Auto) (1.8-7.7) th/mm3 Lymph # (Auto) (1.0-4.8) th/mm3 Hardy # (Auto) (0.0-0.9) th/mm3 Eos # (Auto) (0.0-0.4) th/mm3 Baso # (Auto) (0.0-0.2) th/mm3 WBC Differential Differential Comment Sodium (136-145) meq/L Potassium (3.5-5.1) meq/L Chloride (98-107) meq/L Carbon Dioxide (21.0-32.0) meq/L Anion Gap (5-15) meq/L BUN (7-18) mg/dL Creatinine (0.60-1.30) mg/dL Estimated GFR (>89) mL/min POC Glucose (68-110) mg/dl Random Glucose (74-106) mg/dL Lactic Acid 1.7 (0.4-2.0) mmol/L Calcium (8.5-10.1) mg/dL Prot Corrected Calcium (8.5-10.1) mg/dL Phosphorus (2.5-4.9) mg/dL Total Bilirubin (0.2-1.0) mg/dL AST (15-37) U/L ALT (12-78) U/L Alkaline Phosphatase (45-117) U/L Troponin I (0.02-0.05) ng/mL Total Protein (6.4-8.2) g/dL Albumin (3.4-5.0) g/dL Imaging Data Attestation: I personally reviewed and interpreted this imaging study as follows : Radiologist's impression: Chest X-Ray 07/27/18 17:13 CONCLUSION: No acute cardiopulmonary disease or significant change. Discharge Plan Discharge Disposition Patient Disposition: 30 Still Patient Discharge Condition Condition: Serious Discharge Details Diagnosis: Hypoglycemia, Acute hypotension Physicians Team ED Provider: Josette Dickson Primary Care Provider: Landen Haley Attending Provider: April Vasquez Discharge Interventions Interventions: Vital Signs Last Done: 07/27/18 18:58 Status ED Status: Admitted Observation Patient
--- NOTE | 2018-07-27 18:09 | XR ---
EXAM DATE: 07/27/2018 5:13 PM EDT AGE/SEX: 72 years / Male INDICATIONS: Fever. CLINICAL DATA: This is the patient's initial encounter. Patient reports that signs and symptoms have been present for 1 day and indicates a pain score of Nonresponsive. MEDICAL/SURGICAL HISTORY: . Chronic obstructive pulmonary disease. Diabetes mellitus type II. R enal failure, chronic. . Coronary artery stent. TURP, Hand sx. COMPARISON: [facility], CHEST 1V SINGLE AP, 07/09/2018. . FINDINGS: No infiltrate, effusion or pneumothorax. Heart size stable, within normal limits. Median sternotomy c hanges are again noted. Lower most sternotomy wire is fractured, unchanged. Double-lumen tunneled right internal jugular central venous catheter again seen, distal tip in the ri ght atrium. CONCLUSION: No acute cardiopulmonary disease or significant change. Electronically signed by: Ashvin Christine MD 07/27/2018 6:07 PM EDT
[2018-07-27 18:21] LABS: Alanine Aminotransferase 6 U/L (12-78); Albumin 1.8 g/dL (3.4-5.0); Alkaline Phosphatase 119 U/L (45-117); Anion Gap 11 meq/L (5-15); Aspartate Aminotransferase 15 U/L (15-37); Blood Urea Nitrogen 13 mg/dL (7-18); Calcium 7.1 mg/dL (8.5-10.1); Carbon Dioxide 27.8 meq/L (21.0-32.0); Chloride 102 meq/L (98-107); Glomerular Filtration Rate 20 mL/min (>89); Glucose,Random 131 mg/dL (74-106); Phosphorus 1.9 mg/dL (2.5-4.9); Sodium 141 meq/L (136-145)
[2018-07-27 18:53] LABS: Potassium 2.7 meq/L (3.5-5.1)
[2018-07-27] MEDS ORDERED: Dextrose 50% in Water 50 ML Vial IV.PUSH PRN (20:21)
[2018-07-27] MEDS ORDERED: Bisacodyl 10 MG Supp RECTAL PRN (20:22)
--- NOTE | 2018-07-27 20:24 | P.HPIM ---
History of Present Illness Primary Care Physician: Landen Haley MD History of Present Illness: This is a 72-year-old male with a PMH of HTN, A. fib on Eliquis, BPH, COPD, Dementia, CAD, ESRD on HD T// and DM who was sent to the ER from SNF due to hypoglycemia. Per EMS, BS 40's, s/p D10 w/ improvement. Per review of medication list, pt on Levemir 10u bid and Novolog, not on oral antihyperglycemics per SNF records. Upon arrival, noted to be hypotensive w/ BP 87/51, HR 58, s/p IVF w/ improvement, BP currently 114/76, HR 60. CBC essentially unremarkable. Hemoglobin 8.7, previously 7.5 on 07/20/2018. K+ 2.7. Creatinine 3.09, previously 3.15 on 07/20/2018. Troponin negative. CXR with no acute findings. While in the ER, patient has remained stable with no further episodes of hypoglycemia or hypotension. S/p Blood Cultures, Vanc/ Zosyn upon arrival for concern for sepsis. - Diagnosis (1) Hypoglycemia (2) Hypotension (3) Hypokalemia (4) ESRD on hemodialysis (5) A-fib Review of Systems PAST FAMILY HISTORY: Reviewed. No h/o DM or CAD All other systems reviewed negative except as stated in HPI PMFSH - History History Provided By: Microfilm Mounter / EMT - Medical History Medical History: Medical History (Last Reviewed 07/27/18 @ 18:01 by Josette Dickson MD) Anginal equivalent (Acute) Anticoagulant long-term use (Acute) Dysphasia (Acute) Occlusion of right internal carotid artery (Acute) Chronic kidney disease, stage IV (severe) (Acute) BPH (benign prostatic hyperplasia) (Acute) Diabetes mellitus (Acute) Sleep apnea (Acute) PTSD (post-traumatic stress disorder) (Acute) COPD (chronic obstructive pulmonary disease) (Chronic) Acute on chronic systolic (congestive) heart failure (Acute) Atrial fibrillation (Acute) Atherosclerotic cardiovascular disease (Acute) NSTEMI (non-ST elevated myocardial infarction) (Acute) Adjustment disorder Chronic use of benzodiazepine for therapeutic purpose Coronary artery disease Dementia Essential hypertension Fibromyalgia Hyperlipidemia Hypertension Hypothyroid Nephrolithiasis - Surgical History Surgical History: Surgical History (Last Reviewed 07/27/18 @ 18:01 by Josette Dickson MD) History of liver biopsy (Acute) H/O hand surgery (Acute) S/P TURP (Acute) S/P coronary artery stent placement (Acute) H/O nephrostomy (Acute) Presence of coronary angioplasty implant and graft (Acute) - Family History Family History: Family History (Last Reviewed 07/27/18 @ 18:01 by Josette Dickson MD) Mother Family history of diabetes mellitus - Tobacco History Second Hand Smoke Exposure: No Smoking Status: Unknown if ever smoked Tobacco Type: Cigarettes Years Smoked: 30 Number of Pack Years (if former smoker): 30 - Alcohol History How Often Do You Have a Drink Containing Alcohol: Unable to Obtain - Substance Use History Substance History: Unable to Obtain - Travel History Recent Travel in the [place] Within the Last 8 Weeks: No Recent Travel Out of the Country Within the Last 8 Weeks: No - Immunization History Tetanus Immunization: Unable to Assess Medications and Allergies Active Medications: Active Medications Sodium Chloride (Ns Inj) 250 mls @ 0 mls/hr IV.SIG BOLUS WILFREDO Last Infusion: 07/27/18 17:45 Dose: Infused Cefepime HCl 2,000 mg/ Sodium (Chloride) 100 mls @ 200 mls/hr IV.SIG Q8H WILFREDO Last Infusion: 07/27/18 18:05 Dose: Infused Allergies Allergy/AdvReac Type Severity Reaction Status Date / Time celecoxib [From Celebrex] Allergy Severe Itching Verified 07/09/18 11:57 ciprofloxacin Allergy Severe Itching Verified 07/09/18 11:57 diatrizoate meglumine Allergy Severe Itching Verified 07/09/18 11:57 gadobenic acid Allergy Severe Itching Verified 07/09/18 11:57 gadodiamide Allergy Severe Itching Verified 07/09/18 11:57 gadoteridol Allergy Severe Itching Verified 07/09/18 11:57 iodixanol Allergy Severe Itching Verified 07/09/18 11:57 iohexol Allergy Severe Itching Verified 07/09/18 11:57 levofloxacin Allergy Severe Itching Verified 07/09/18 11:57 ezetimibe [From Zetia] Allergy Intermediate Itching Verified 07/09/18 11:57 prochlorperazine Allergy Unknown Itching Verified 05/10/18 20:51 [From Compazine] red dye Allergy Unknown Itching Verified 05/10/18 20:51 Home Medications Medication Instructions Recorded Confirmed Type apixaban 2.5 mg PO BID 05/10/18 07/27/18 History aspirin 81 mg PO DAILY 05/10/18 07/27/18 History atorvastatin 40 mg PO DAILY 05/10/18 07/27/18 History ipratropium-albuterol 3 ml INHALATION Q4H PRN 05/10/18 07/27/18 History omeprazole 20 mg PO DAILY 05/10/18 07/27/18 History clotrimazole 1 applic TOPICAL BID 05/31/18 07/27/18 History tiotropium bromide [Spiriva with 1 cap INHALATION DAILY 05/31/18 07/27/18 History HandiHaler] Exam Vital signs: Vital Signs 07/27/18 17:04 07/27/18 17:31 07/27/18 17:33 Temperature 97.7 F Pulse Rate 58 L 60 Respiratory Rate 17 20 Blood Pressure 87/51 L 114/76 Pulse Oximetry 98 95 95 07/27/18 18:58 Temperature Pulse Rate 54 L Respiratory Rate 16 Blood Pressure 101/54 L Pulse Oximetry 96 Intake & Output 07/27/18 07/27/18 07/28/18 06:59 18:59 06:59 Intake Total 350 / 350 Balance 350 / 350 Weight 113.398 kg Intake: IV 350 / 350 Maxipime Inj 2,000 MG In NS Inj 100 / 100 100 ML @ 200 mls/hr IV.SIG Q8H [facility] Rx#:[id number] NS Inj 250 ML @ Wide Open IV. 250 / 250 SIG BOLUS WILFREDO Rx#:[id number] Narrative: PE: GENERAL: Elderly chronically ill-appearing white male in no acute distress. SKIN: Focused skin assessment warm and dry. HEENT: PERRLA, EOMI. No scleral icterus or conjunctival pallor. No lid lag or facial droop. CARDIOVASCULAR: Regular rate and rhythm. No obvious murmurs to auscultation. No chest tenderness to palpation. RESPIRATORY: No obvious rhonchi or wheezing. Clear to auscultation. Breath sounds equal bilaterally. GASTROINTESTINAL: Abdomen soft, non-tender, nondistended. BS normal. MUSCULOSKELETAL: Extremities without clubbing, cyanosis, or edema. No obvious deformities. NEUROLOGICAL: Awake, alert, some confusion, but able to answer questions. No focal neurologic deficits. Moving both upper and lower extremities spontaneously. PSYCHIATRIC: Appropriate mood and affect. Insight and judgment normal. Results - Labs CBC & Chem 7: 07/27/18 17:20 07/27/18 17:20 Labs: Short CBC 07/27/18 Range/Units 17:20 WBC 9.4 (4.0-11.0) th/mm3 Hgb 8.7 L (13.0-17.0) gm/dL Hct 26.7 L (39.0-51.0) % Plt Count 259 (150-450) th/mm3 BMP 07/27/18 17:20 Sodium 141 Potassium 2.7 L* Chloride 102 Carbon Dioxide 27.8 BUN 13 Creatinine 3.09 H Calcium 7.1 L* Cardiac Enzymes 07/27/18 Range/Units 17:20 Troponin I Less than 0.02 L (0.02-0.05) ng/mL Liver Function 07/27/18 Range/Units 17:20 Total Bilirubin 0.3 (0.2-1.0) mg/dL AST 15 (15-37) U/L ALT 6 L (12-78) U/L Alkaline Phosphatase 119 H (45-117) U/L Albumin 1.8 L (3.4-5.0) g/dL - Imaging Impressions Chest X-Ray 07/27/18 17:13 CONCLUSION: No acute cardiopulmonary disease or significant change. Caprini VTE Risk Assessment Caprini VTE Risk Assessment: No/Low Risk (score <= 1) Caprini Risk Assessment Model: Point Value = 1 Point Value = 2 Point Value = 3 Point Value = 5 Age 41-60 Minor surgery BMI > 25 kg/m2 Swollen legs Varicose veins or History of unexplained or recurrent spontaneous Oral contraceptives or hormone replacement Sepsis (< 1 month) Serious lung disease, including pneumonia (< 1 month) Abnormal pulmonary function Acute myocardial infarction Congestive heart failure (< 1 month) History of inflammatory bowel disease Medical patient at bed rest Age 61-74 Arthroscopic surgery Major open surgery (> 45 min) Laparoscopic surgery (> 45 min) Malignancy Confined to bed (> 72 hours) Immobilizing plaster cast Central venous access Age >= 75 History of VTE Family history of VTE Factor V Leiden Prothrombin [id number] Lupus anticoagulant Anticardiolipin antibodies Elevated serum homocysteine Heparin-induced thrombocytopenia Other congenital or acquired thrombophilia Stroke (< 1 month) Elective arthroplasty Hip, pelvis, or leg fracture Acute spinal cord injury (< 1 month) Prophylaxis Regimen: Total Risk Factor Score Risk Level Prophylaxis Regimen 0-1 Low Early ambulation 2 Moderate Order ONE of the following: *Sequential Compression Device (SCD) *Heparin 5000 units SQ BID 3-4 Higher Order ONE of the following medications: *Heparin 5000 units SQ TID *Enoxaparin/Lovenox 40 mg SQ daily (WT < 150 kg, CrCl > 30 mL/min) *Enoxaparin/Lovenox 30 mg SQ daily (WT < 150 kg, CrCl > 10-29 mL/min) *Enoxaparin/Lovenox 30 mg SQ BID (WT < 150 kg, CrCl > 30 mL/min) AND/OR *Sequential Compression Device (SCD) 5 or more Highest Order ONE of the following medications: *Heparin 5000 units SQ TID (Preferred with Epidurals) *Enoxaparin/Lovenox 40 mg SQ daily (WT < 150 kg, CrCl > 30 mL/min) *Enoxaparin/Lovenox 30 mg SQ daily (WT < 150 kg, CrCl > 10-29 mL/min) *Enoxaparin/Lovenox 30 mg SQ BID (WT < 150 kg, CrCl > 30 mL/min) AND *Sequential Compression Device (SCD) Assessment and Plan - Assessment (1) Hypoglycemia Code(s): E16.2 - Hypoglycemia, unspecified Status: Acute (2) Hypotension Code(s): I95.9 - Hypotension, unspecified Status: Acute (3) Hypokalemia Code(s): E87.6 - Hypokalemia Status: Acute (4) ESRD on hemodialysis Code(s): N18.6 - End stage renal disease; Z99.2 - Dependence on renal dialysis Status: Acute (5) A-fib Code(s): I48.91 - Unspecified atrial fibrillation Status: Acute - Plan A/P: 1. Hypoglycemia: BS 40's, s/p D10 by EMS w/ improvement, BS 194 while in ER w / no recurrent hypoglycemia. On Levemir 10u bid and Novolog per SNF records, will hold. Accu-Checks q2h x12h, check Hgb A1c, resume insulin once BS stabilized. 2. Hypotension: BP 80's on arrival, s/p IVF w/ improvement, BP currently 114/ 76, HR 60, IVF for hydration, monitor BP closely 3. Hypokalemia: K+ 2.7, s/p 20mEq K+ replacement in ER, will hold off on additional replacement in light of ESRD on HD. Recheck labs in am. 4. ESRD on HD: T//S, consult Nephrology as needed to resume HD. 5. A-fib: On Eliquis and Amiodarone, will resume, monitor BP closely. 6. DVT Prophylaxis: Eliquis 7. Social work for d/c planning as needed 8. Case discussed w/ ER physician at length, labs/records/imaging reviewed by me.
[2018-07-27] MEDS: Sod Chloride 0.9% Inj 1,000 ML IV.CONT SCH (20:45)
[2018-07-27] MEDS ORDERED: Hypromellose 0.3% Opth Gel 10 GM Bottle EACH EYE SCH (21:00)
[2018-07-27] MEDS: Senna/Docusate Sodium 8.6/50 MG Tablet PO SCH (23:22)
[2018-07-27] MEDS: Amiodarone 200 MG Tablet PO SCH (23:22)
[2018-07-27] MEDS: Pregabalin 75 MG Capsule PO SCH (23:22)
[2018-07-27] MEDS: Carboxymethylcellulose 0.5% Opth Drops 15 ML Bottle EACH EYE SCH (23:28)
[2018-07-28] MEDS ORDERED: Sodium Chloride 0.9% 2 ML Flush PRN IV.FLUSH (00:19)
[2018-07-28] MEDS: Sod Chloride 0.9% Inj 1,000 ML IV.CONT SCH ×2 (07:44→18:08)
[2018-07-28] MEDS: Senna/Docusate Sodium 8.6/50 MG Tablet PO SCH ×2 (10:08→21:38)
[2018-07-28] MEDS: Pregabalin 75 MG Capsule PO SCH ×2 (10:19→21:38)
[2018-07-28] MEDS: Amiodarone 200 MG Tablet PO SCH ×2 (10:19→21:38)
[2018-07-28] MEDS: Pantoprazole Sodium 20 MG DR Tablet PO SCH (10:20)
[2018-07-28] MEDS: Sodium Chloride 0.9% 2 ML Flush BID IV.FLUSH SCH ×2 (10:20→21:40)
[2018-07-28] MEDS: Carboxymethylcellulose 0.5% Opth Drops 15 ML Bottle EACH EYE SCH ×2 (10:20→21:40)
--- NOTE | 2018-07-28 10:29 | P.PN ---
Subjective Interval history: Follow-up for hypoglycemia, hypotension. Patient is currently awake, alert, oriented to self, hospital in [place], and 2018. He states he overall just feels really weak and fatigued. He also complains of burning pains in his bilateral feet. He states he has neuropathy from his diabetes. He denies any cough, chest pain, shortness of breath, abdominal pain, nausea/vomiting, or diarrhea. He states he just does not feel right. He has difficulty further explaining his symptoms and is focused on his bilateral feet pain. Discussed with RN at bedside. Patient due for dialysis today. He states he sees Dr. Phillip , however Dr. Phillip was contacted and the patient has not followed with him in over a year. Physical Exam Vital signs: Vital Signs 07/27/18 17:04 07/27/18 17:31 07/27/18 17:33 Temperature 97.7 F Pulse Rate 58 L 60 Respiratory Rate 17 20 Blood Pressure 87/51 L 114/76 Pulse Oximetry 98 95 95 07/27/18 18:58 07/27/18 22:00 07/27/18 22:33 Temperature 98.2 F Pulse Rate 54 L 89 92 H Respiratory Rate 16 20 20 Blood Pressure 101/54 L 106/72 108/72 Pulse Oximetry 96 98 98 07/28/18 00:00 07/28/18 04:00 07/28/18 08:00 Temperature 98.7 F 98.2 F 97.7 F Pulse Rate 124 H 86 82 Respiratory Rate 16 18 16 Blood Pressure 170/90 H 122/44 L 98/56 L Pulse Oximetry 95 97 96 Intake & Output 07/27/18 07/28/18 07/28/18 18:59 06:59 18:59 Intake Total 350 / 350 1450 / 1450 480 / 480 Balance 350 / 350 1450 / 1450 480 / 480 Weight 113.398 kg 113.398 kg Intake: IV 350 / 350 1350 / 1350 NS Inj 1,000 ML @ 100 mls/hr IV 1000 / 1000 .CONT .Q10H [facility] Rx#:[id number] Maxipime Inj 2,000 MG In NS Inj 100 / 100 100 / 100 100 ML @ 200 mls/hr IV.SIG Q8H [facility] Rx#:[id number] NS Inj 250 ML @ Wide Open IV. 250 / 250 SIG BOLUS [facility] Rx#:[id number] Oral 100 / 100 480 / 480 Other: # Voids 1 Weight On Admission 113.398 kg Narrative: GENERAL: Well-nourished, well-developed chronically ill-appearing elderly male patient in NAD. SKIN: Warm and dry. No rash. Right heel with stage II pressure ulcer. HEENT: Normocephalic. Atraumatic. Pupils equal and round. Mucous membranes pink and moist. NECK: Supple. Trachea midline. CARDIOVASCULAR: Regular rate and rhythm. No murmur appreciated. RESPIRATORY: No accessory muscle use. Clear to auscultation. Breath sounds equal bilaterally. GASTROINTESTINAL: Abdomen soft, non-tender, nondistended. Normoactive bowel sounds x4. MUSCULOSKELETAL: No obvious deformities. Extremities without clubbing, cyanosis , or edema. NEUROLOGICAL: Awake and alert. No obvious cranial nerve deficits. Motor grossly within normal limits. Moving all extremities spontaneously. Normal speech. PSYCHIATRIC: Appropriate mood and affect; insight and judgment limited. Results - Labs CBC & Chem 7: 07/28/18 10:34 07/28/18 10:34 Laboratory Results - last 24 hr 07/27/18 07/27/18 07/27/18 17:06 17:20 17:20 WBC 9.4 RBC 2.94 L Hgb 8.7 L Hct 26.7 L MCV 90.7 MCH 29.6 MCHC 32.6 RDW 17.5 H Plt Count 259 MPV 7.7 Neut % (Auto) 60.4 Lymph % (Auto) 21.1 Hartley % (Auto) 12.5 H Eos % (Auto) 5.3 H Baso % (Auto) 0.7 Neut # (Auto) 5.7 Lymph # (Auto) 2.0 Hartley # (Auto) 1.2 H Eos # (Auto) 0.5 H Baso # (Auto) 0.1 WBC Differential . Differential Comment Auto diff final Sodium 141 Potassium 2.7 L* Chloride 102 Carbon Dioxide 27.8 Anion Gap 11 BUN 13 Creatinine 3.09 H Estimated GFR 20 L POC Glucose 194 H Random Glucose 131 H Lactic Acid Calcium 7.1 L* Prot Corrected Calcium 8.2 L Phosphorus 1.9 L Total Bilirubin 0.3 AST 15 ALT 6 L Alkaline Phosphatase 119 H Troponin I Less than 0.02 L Total Protein 5.0 L Albumin 1.8 L TSH 07/27/18 07/27/18 07/28/18 17:20 17:20 01:24 WBC RBC Hgb Hct MCV MCH MCHC RDW Plt Count MPV Neut % (Auto) Lymph % (Auto) Hartley % (Auto) Eos % (Auto) Baso % (Auto) Neut # (Auto) Lymph # (Auto) Hartley # (Auto) Eos # (Auto) Baso # (Auto) WBC Differential Differential Comment Sodium Potassium Chloride Carbon Dioxide Anion Gap BUN Creatinine Estimated GFR POC Glucose 74 Random Glucose Lactic Acid 1.7 Calcium Prot Corrected Calcium Phosphorus Total Bilirubin AST ALT Alkaline Phosphatase Troponin I Total Protein Albumin TSH 17.300 H 07/28/18 07/28/18 07/28/18 03:03 05:13 06:40 WBC RBC Hgb Hct MCV MCH MCHC RDW Plt Count MPV Neut % (Auto) Lymph % (Auto) Hartley % (Auto) Eos % (Auto) Baso % (Auto) Neut # (Auto) Lymph # (Auto) Hartley # (Auto) Eos # (Auto) Baso # (Auto) WBC Differential Differential Comment Sodium Potassium Chloride Carbon Dioxide Anion Gap BUN Creatinine Estimated GFR POC Glucose 167 H 106 130 H Random Glucose Lactic Acid Calcium Prot Corrected Calcium Phosphorus Total Bilirubin AST ALT Alkaline Phosphatase Troponin I Total Protein Albumin TSH 07/28/18 09:55 WBC RBC Hgb Hct MCV MCH MCHC RDW Plt Count MPV Neut % (Auto) Lymph % (Auto) Hartley % (Auto) Eos % (Auto) Baso % (Auto) Neut # (Auto) Lymph # (Auto) Hartley # (Auto) Eos # (Auto) Baso # (Auto) WBC Differential Differential Comment Sodium Potassium Chloride Carbon Dioxide Anion Gap BUN Creatinine Estimated GFR POC Glucose 91 Random Glucose Lactic Acid Calcium Prot Corrected Calcium Phosphorus Total Bilirubin AST ALT Alkaline Phosphatase Troponin I Total Protein Albumin TSH - Imaging Impressions Chest X-Ray 07/27/18 17:13 CONCLUSION: No acute cardiopulmonary disease or significant change. Assessment and Plan - Assessment (1) Hypoglycemia Code(s): E16.2 - Hypoglycemia, unspecified Status: Acute (2) Hypotension Code(s): I95.9 - Hypotension, unspecified Status: Acute (3) Hypokalemia Code(s): E87.6 - Hypokalemia Status: Acute (4) ESRD on hemodialysis Code(s): N18.6 - End stage renal disease; Z99.2 - Dependence on renal dialysis Status: Acute (5) A-fib Code(s): I48.91 - Unspecified atrial fibrillation Status: Acute - Plan 72-year-old male with a PMH of HTN, A. fib on Eliquis, BPH, COPD, Dementia, CAD , ESRD on HD T// and DM who was sent to the ER from [facility] due to hypoglycemia. Hypoglycemia: BS 40's, s/p D10 by EMS w/ improvement, BS 194 while in ER w/ no recurrent hypoglycemia. -On Levemir 10u bid and Novolog per [facility] records, will hold. -Accu-Checks q2h x12h, then achs -check Hgb A1c -resume insulin once BS stabilized. -patient may not require as much insulin, he reports recent significant weight loss due to diet at [facility] Hypotension: BP 80's on arrival, s/p IVF w/ improvement, BP currently 114/76, HR 60 -giving IVF for hydration, possible volume depletion from dialysis, however concern for sepsis -holding antihypertensives -monitor BP closely SIRS: concern for sepsis, no clear source of infection at this time. Leukocytosis, tachycardic, hypotensive. -WBC elevated to 16.1 K with left shift overnight -BP into 80s/40s -Tachycardia HR 94 -check UA if patient produces any urine -Blood cultures collected and pending -CXR reviewed, no acute findings -Await cultures, consider ID consult Hypokalemia: K+ 2.7, s/p 20mEq K+ replacement in ER -will hold off on additional replacement in light of ESRD on HD. -Recheck labs in am. ESRD on HD: schedule. -consult Nephrology to resume HD. A-fib: Chronic -On Eliquis and Amiodarone, will resume -monitor BP closely. DVT Prophylaxis: Eliquis
[2018-07-28 11:11] LABS: Baso # (Auto) 0.1 th/mm3 (0.0-0.2); Baso % (Auto) 0.5 % (0.0-2.0); Eos # (Auto) 0.1 th/mm3 (0.0-0.4); Eos % (Auto) 0.7 % (0.0-4.0); Hematocrit 28.4 % (39.0-51.0); Hemoglobin 8.8 gm/dL (13.0-17.0); Lymph # (Auto) 2.5 th/mm3 (1.0-4.8); Lymph % (Auto) 15.5 % (9.0-44.0); Mean Corpuscular Hemoglobin 28.4 pg (27.0-34.0); Mean Corpuscular Volume 92.2 fL (80.0-100.0); Mono # (Auto) 1.3 th/mm3 (0.0-0.9); Neut # (Auto) 12.1 th/mm3 (1.8-7.7); Neut % (Auto) 75.3 % (16.0-70.0); Platelet Count 257 th/mm3 (150-450); Red Blood Count 3.08 mil/mm3 (4.50-5.90); Red Cell Distribution Width 17.6 % (11.6-17.2); White Blood Count 16.1 th/mm3 (4.0-11.0)
[2018-07-28 11:18] LABS: Mean Corpuscular HGB Conc 30.8 % (32.0-36.0)
[2018-07-28 11:55] LABS: Lymphocytes 11 % (9-44); Monocytes 6 % (0-8)
[2018-07-28 11:56] LABS: Ovalocytes 1+; Toxic Granulation 1+
[2018-07-28 11:57] LABS: Platelet Estimate Normal (Normal); Platelet Morphology Normal (Normal)
[2018-07-28 12:05] LABS: Albumin 1.8 g/dL (3.4-5.0); Alkaline Phosphatase 118 U/L (45-117); Anion Gap 11 meq/L (5-15); Aspartate Aminotransferase 14 U/L (15-37); Blood Urea Nitrogen 19 mg/dL (7-18); Calcium 7.4 mg/dL (8.5-10.1); Chloride 103 meq/L (98-107); Glomerular Filtration Rate 17 mL/min (>89); Glucose,Random 105 mg/dL (74-106); Potassium 3.9 meq/L (3.5-5.1); Sodium 141 meq/L (136-145); Total Protein 5.1 g/dL (6.4-8.2)
[2018-07-28] MEDS ORDERED: Acetaminophen 325 MG Tablet PO PRN (12:45)
[2018-07-28] MEDS ORDERED: Gelatin 12 MM/7 MM Topical Foam TOPICAL PRN (12:45)
[2018-07-28] MEDS ORDERED: Sod Chloride 0.9% Inj 1,000 ML IV.CONT PRN (12:45)
[2018-07-28] MEDS ORDERED: Albumin Human 25% Inj 100 ML IV.SIG PRN (12:45)
[2018-07-28] MEDS ORDERED: Sod Chloride 0.9% Inj 1,000 ML OTHER PRN ×2 (12:45)
[2018-07-28] MEDS ORDERED: Heparin 10,000 UNITS/10 ML Vial (for IV use) OTHER PRN (12:45)
[2018-07-28] MEDS ORDERED: Vancomycin Consult Pharmacy OTHER PRN (13:37)
--- NOTE | 2018-07-28 14:36 | P.CONNP ---
History of Present Illness Service: Nephrology Consult date: 07/28/18 Requesting Physician: April Vasquez Reason for Consult: ESRD on dialysis Primary Care Provider: Landen Haley MD Family Provider: Troy Crowder Chief Complaint: Altered mental status and hypoglycemia History of Present Illness: Patient is a 72-year-old white male with history of diabetes, dementia, altered mental status, atrial fibrillation, congestive heart failure, ESRD who was [facility] [place] [facility] as he was confused and has hypoglycemia, he was given fluid boluses as he was hypotensive as well and admitted for possible sepsis, Patient in the hospital pulled his permacath out, the potassium was low 2.7 and repeat is 3.9 after replacement, he is getting normal saline at 100 cc an hour patient is able to speak and answer some of the questions but then falls back to sleep, he denies any chest pain or shortness of breath. Overall he is a poor historian, patient was seen by Dr. Tabares and has been admitted to [facility] under his supervision. Review of Systems unobtainable due to mental status PMFSH - History History Provided By: Patient - Medical History Medical History: Medical History (Last Reviewed 07/28/18 @ 14:32 by Ross Stack MD) Anginal equivalent (Acute) Anticoagulant long-term use (Acute) Dysphasia (Acute) Occlusion of right internal carotid artery (Acute) Chronic kidney disease, stage IV (severe) (Acute) BPH (benign prostatic hyperplasia) (Acute) Diabetes mellitus (Acute) Sleep apnea (Acute) PTSD (post-traumatic stress disorder) (Acute) COPD (chronic obstructive pulmonary disease) (Chronic) Acute on chronic systolic (congestive) heart failure (Acute) Atrial fibrillation (Acute) Atherosclerotic cardiovascular disease (Acute) NSTEMI (non-ST elevated myocardial infarction) (Acute) Adjustment disorder Chronic use of benzodiazepine for therapeutic purpose Coronary artery disease Dementia Essential hypertension Fibromyalgia Hyperlipidemia Hypertension Hypothyroid Nephrolithiasis - Surgical History Surgical History: Surgical History (Last Reviewed 07/28/18 @ 12:37 by Marialuisa Cedeño) History of liver biopsy (Acute) H/O hand surgery (Acute) S/P TURP (Acute) S/P coronary artery stent placement (Acute) H/O nephrostomy (Acute) Presence of coronary angioplasty implant and graft (Acute) - Family History Family History: Family History (Last Reviewed 07/28/18 @ 14:32 by Ross Stack MD) Mother Family history of diabetes mellitus - Social History I have reviewed the patient's Social History: Yes - Tobacco History Second Hand Smoke Exposure: No Smoking Status: Former smoker Tobacco Type: Cigarettes Years Smoked: 30 Number of Pack Years (if former smoker): 30 - Alcohol History How Often Do You Have a Drink Containing Alcohol: Never - Substance Use History Substance History: No History of Abuse, Unable to Obtain - Travel History Recent Travel in the [place] Within the Last 8 Weeks: No Recent Travel Out of the Country Within the Last 8 Weeks: No - Immunization History Tetanus Immunization: Unable to Assess Medications and Allergies Active Medications: Active Medications Acetaminophen (Tylenol) 650 mg PO UNSCH PRN PRN Reason: SEE LABEL COMMENTS Al Hydroxide/Mg Hydroxide (Milk Of Kyle Sheets) 30 ml PO Q12H PRN PRN Reason: Mild Constipation Amiodarone HCl (Cordarone) 200 mg PO Q12HR [facility] Last Admin: 07/28/18 10:19 Dose: 200 mg Apixaban (Eliquis) 2.5 mg PO BID [facility] Last Admin: 07/28/18 10:08 Dose: 2.5 mg Artificial Tears (Refresh Tears 0.5% Opth Drops) 1 drop EACH EYE BID [facility] Last Admin: 07/28/18 10:20 Dose: 1 drop Aspirin (Aspirin Chew) 81 mg PO DAILY [facility] Last Admin: 07/28/18 10:19 Dose: 81 mg Atorvastatin Calcium (Lipitor) 40 mg PO DAILY [facility] Last Admin: 07/28/18 10:08 Dose: 40 mg Bisacodyl (Dulcolax Supp) 10 mg RECTAL DAILY PRN PRN Reason: SEVERE CONSITIPATION Clonidine HCl (Catapres) 0.1 mg PO UNSCH PRN PRN Reason: SEE LABEL COMMENTS Dextrose (D50w Vial) 50 ml IV.PUSH UNSCH PRN PRN Reason: PER HYPOGLYCEMIA PROTOCOL Diphenhydramine HCl (Benadryl) 25 mg PO UNSCH PRN PRN Reason: SEE LABEL COMMENTS Epoetin Bud (Epogen Inj) 6,200 unit IV.PUSH UNSCH PRN PRN Reason: SEE LABEL COMMENTS Gelatin (Gelfoam 12 Mm/7 Mm Topical) 1 foam TOPICAL PRN PRN PRN Reason: help stop bleeding from site Gentamicin Sulfate (Gentamicin Inj) 20 mg OTHER WITH DIALYSIS PRN PRN Reason: Dwell Gentamycin Lock Glucagon (Glucagon Inj) 1 mg OTHER PRN PRN PRN Reason: for Hypoglycemia Protocol Heparin Sodium (Porcine) (Heparin Inj) 1,000 units OTHER WITH DIALYSIS PRN PRN Reason: Dwell Heparin to Fill Catheter Sodium Chloride (Ns Inj) 250 mls @ 0 mls/hr IV.SIG BOLUS [facility] Last Infusion: 07/27/18 17:45 Dose: Infused Sodium Chloride (Ns Inj) 1,000 mls @ 30 mls/hr IV.CONT .Q24H [facility] Last Admin: 07/28/18 07:44 Dose: 100 mls/hr Cefepime HCl 2,000 mg/ Sodium (Chloride) 100 mls @ 200 mls/hr IV.SIG Q24H [facility] Albumin Human (Flexbumin 25% Inj) 100 mls @ 60 mls/hr IV.SIG WITH DIALYSIS PRN PRN Reason: hypotension / volume replace Sodium Chloride (Ns Inj) 1,000 mls @ 0 mls/hr OTHER .Q0M PRN PRN Reason: for prime and rinse back Sodium Chloride (Ns Inj) 1,000 mls @ 200 mls/hr OTHER .Q5H PRN PRN Reason: for dialyzer flush PRN Sodium Chloride (Ns Inj) 1,000 mls @ 0 mls/hr IV.CONT .Q0M PRN PRN Reason: hypotension / volume replace Lactulose (Lactulose Liq) 30 ml PO DAILY PRN PRN Reason: SEVERE CONSITIPATION Levothyroxine Sodium (Synthroid) 100 mcg PO DAILY@0600 [facility] Mannitol (Mannitol Inj) 12.5 gm IV.PUSH UNSCH PRN PRN Reason: hypotension / volume replace Nitroglycerin (Nitrostat Sl) 0.4 mg SL Q5M PRN PRN Reason: CHEST PAIN Ondansetron HCl (Zofran Inj) 4 mg IV.PUSH Q6H PRN PRN Reason: NAUSEA OR VOMITING Ondansetron HCl (Zofran Inj) 4 mg IV.PUSH UNSCH PRN PRN Reason: NAUSEA OR VOMITING Pantoprazole Sodium (Protonix) 20 mg PO DAILY [facility] Last Admin: 07/28/18 10:20 Dose: 20 mg Pharmacy Profile Note (Vancomycin Consult Pharmacy) 1 each OTHER UNSCH PRN PRN Reason: Pharmacy to dose Pregabalin (Lyrica) 75 mg PO BID [facility] Last Admin: 07/28/18 10:19 Dose: 75 mg Senna/Docusate Sodium (Nicolle-Colace) 1 tab PO BID [facility] Last Admin: 07/28/18 10:08 Dose: 1 tab Sennosides (Senokot) 17.2 mg PO Q12H PRN PRN Reason: Moderate Constipation Sevelamer Carbonate (Renvela) 800 mg PO TIDAC [facility] Last Admin: 07/28/18 10:08 Dose: 800 mg Sodium Chloride (Ns Flush) 2 ml IV.FLUSH BID [facility] Last Admin: 07/28/18 10:20 Dose: 2 ml Sodium Chloride (Ns Flush) 2 ml IV.FLUSH PRN PRN PRN Reason: FLUSH AFTER USING IV ACCESS Sodium Chloride (Ns Flush) 5 ml IV.FLUSH PRN PRN PRN Reason: flush each lumen during HD Tiotropium [place] (Spiriva 18 Mcg Inh) 18 mcg INH DAILY [facility] Allergies Allergy/AdvReac Type Severity Reaction Status Date / Time celecoxib [From Celebrex] Allergy Severe Itching Verified 07/09/18 11:57 ciprofloxacin Allergy Severe Itching Verified 07/09/18 11:57 diatrizoate meglumine Allergy Severe Itching Verified 07/09/18 11:57 gadobenic acid Allergy Severe Itching Verified 07/09/18 11:57 gadodiamide Allergy Severe Itching Verified 07/09/18 11:57 gadoteridol Allergy Severe Itching Verified 07/09/18 11:57 iodixanol Allergy Severe Itching Verified 07/09/18 11:57 iohexol Allergy Severe Itching Verified 07/09/18 11:57 levofloxacin Allergy Severe Itching Verified 07/09/18 11:57 ezetimibe [From Zetia] Allergy Intermediate Itching Verified 07/09/18 11:57 prochlorperazine Allergy Unknown Itching Verified 05/10/18 20:51 [From Compazine] red dye Allergy Unknown Itching Verified 05/10/18 20:51 Home Medications Medication Instructions Recorded Confirmed Type apixaban 2.5 mg PO BID 05/10/18 07/27/18 History aspirin 81 mg PO DAILY 05/10/18 07/27/18 History atorvastatin 40 mg PO DAILY 05/10/18 07/27/18 History ipratropium-albuterol 3 ml INHALATION Q4H PRN 05/10/18 07/27/18 History omeprazole 20 mg PO DAILY 05/10/18 07/27/18 History clotrimazole 1 applic TOPICAL BID 05/31/18 07/27/18 History tiotropium bromide [Spiriva with 1 cap INHALATION DAILY 05/31/18 07/27/18 History HandiHaler] Exam Vital signs: Vital Signs 07/27/18 17:04 07/27/18 17:31 07/27/18 17:33 Temperature 97.7 F Pulse Rate 58 L 60 Respiratory Rate 17 20 Blood Pressure 87/51 L 114/76 Pulse Oximetry 98 95 95 07/27/18 18:58 07/27/18 22:00 07/27/18 22:33 Temperature 98.2 F Pulse Rate 54 L 89 92 H Respiratory Rate 16 20 20 Blood Pressure 101/54 L 106/72 108/72 Pulse Oximetry 96 98 98 07/28/18 00:00 07/28/18 04:00 07/28/18 08:00 Temperature 98.7 F 98.2 F 97.7 F Pulse Rate 124 H 86 82 Respiratory Rate 16 18 16 Blood Pressure 170/90 H 122/44 L 98/56 L Pulse Oximetry 95 97 96 07/28/18 12:00 07/28/18 13:04 07/28/18 13:49 Temperature 99.1 F Pulse Rate 94 H Respiratory Rate 16 Blood Pressure 88/46 L 92/57 L Pulse Oximetry 99 99 Intake & Output 07/27/18 07/28/18 07/28/18 18:59 06:59 18:59 Intake Total 350 / 350 1450 / 1450 480 / 480 Balance 350 / 350 1450 / 1450 480 / 480 Weight 113.398 kg 113.398 kg Intake: IV 350 / 350 1350 / 1350 NS Inj 1,000 ML @ 100 mls/hr IV 1000 / 1000 .CONT .Q10H [facility] Rx#:[id number] Maxipime Inj 2,000 MG In NS Inj 100 / 100 100 / 100 100 ML @ 200 mls/hr IV.SIG Q8H [facility] Rx#:[id number] NS Inj 250 ML @ Wide Open IV. 250 / 250 SIG BOLUS [facility] Rx#:[id number] Oral 100 / 100 480 / 480 Other: # Voids 1 Weight On Admission 113.398 kg Narrative: GENERAL: Well-nourished, well-developed patient. SKIN: Warm and dry. HEAD: Normocephalic. EYES: No scleral icterus. No injection or drainage. NECK: Supple, trachea midline. No JVD or lymphadenopathy. CARDIOVASCULAR: Irregular heart rate RESPIRATORY: Breath sounds equal bilaterally. No accessory muscle use. GASTROINTESTINAL: Abdomen soft, non-tender, nondistended. EXTREMITIES: Chronic skin color changes mild edema NEUROLOGICAL: Drowsy, wakes up has dementia Results - Lab Results 07/28/18 10:34 07/28/18 10:34 Most recent lab results Calcium 7.4 mg/dL (8.5-10.1) L* 07/28/18 10:34 Phosphorus 1.9 mg/dL (2.5-4.9) L 07/27/18 17:20 Assessment and Plan - Assessment (1) ESRD (end stage renal disease) on dialysis Code(s): N18.6 - End stage renal disease; Z99.2 - Dependence on renal dialysis Status: Chronic (2) Acute alteration in mental status Code(s): R41.82 - Altered mental status, unspecified Status: Resolved (3) Sepsis Code(s): A41.9 - Sepsis, unspecified organism Status: Resolved (4) Anemia of renal disease Code(s): D63.1 - Anemia in chronic kidney disease Status: Chronic (5) Toxic metabolic encephalopathy Code(s): G92 - Toxic encephalopathy Status: Acute (6) Hypoglycemia Code(s): E16.2 - Hypoglycemia, unspecified Status: Acute - Plan Patient is seen there is no urgency to start dialysis today, he will need a permacath reinsertion This can be done on Monday morning, orders placed Will cut back to IV fluid to KVO Potassium was replaced Monitor BMP Avoid nephrotoxins Patient is being treated for possible UTI on antibiotics and getting IV fluids Blood pressure did improve he was hypotensive initially Blood sugars are better as well Patient has accidentally pulled his permacath out Will follow over the weekend He follows with Dr. Tabares who will be back on Monday
[2018-07-28] MEDS: Tiotropium Bromide 18 MCG/ACT Inhaler INH SCH (14:53)
[2018-07-28] MEDS ORDERED: Vancomycin Inj 1,250 MG in Sodium Chlor 0.9% Inj 250 ML IV.SIG ONE (16:00)
[2018-07-29] MEDS: Levothyroxine 100 MCG Tablet PO SCH (05:06)
[2018-07-29 07:29] LABS: Baso # (Auto) 0.1 th/mm3 (0.0-0.2); Baso % (Auto) 0.7 % (0.0-2.0); Eos # (Auto) 0.7 th/mm3 (0.0-0.4); Eos % (Auto) 6.9 % (0.0-4.0); Lymph # (Auto) 1.9 th/mm3 (1.0-4.8); Lymph % (Auto) 19.9 % (9.0-44.0); Mean Corpuscular Hemoglobin 29.3 pg (27.0-34.0); Mean Corpuscular Volume 91.6 fL (80.0-100.0); Mean Platelet Volume 7.7 fL (7.0-11.0); Mono # (Auto) 0.9 th/mm3 (0.0-0.9); Mono % (Auto) 9.4 % (0.0-8.0); Neut # (Auto) 5.9 th/mm3 (1.8-7.7); Neut % (Auto) 63.1 % (16.0-70.0); Platelet Count 236 th/mm3 (150-450); Red Blood Count 2.73 mil/mm3 (4.50-5.90); Red Cell Distribution Width 17.3 % (11.6-17.2); White Blood Count 9.4 th/mm3 (4.0-11.0)
[2018-07-29 07:57] LABS: Calcium 7.6 mg/dL (8.5-10.1); Carbon Dioxide 27.1 meq/L (21.0-32.0); Potassium 3.9 meq/L (3.5-5.1)
--- NOTE | 2018-07-29 08:17 | P.PN ---
Subjective Interval history: Follow-up for hypoglycemia, hypotension. Patient was initially very drowsy upon arrival, however becomes more awake with conversation. He complains of feeling very weak and fatigued. Denies any specific headache, lightheadedness, dizziness, chest pain, shortness of breath, or abdominal pains. He states his arms and legs "just aren't working right". Blood glucose much improved, currently 130, and blood pressure much improved currently 163/82. Afebrile overnight. No acute events reported by RN. Physical Exam Vital signs: Vital Signs 07/28/18 12:00 07/28/18 13:04 07/28/18 13:49 Temperature 99.1 F Pulse Rate 94 H Respiratory Rate 16 Blood Pressure 88/46 L 92/57 L Pulse Oximetry 99 99 07/28/18 15:49 07/28/18 19:52 07/28/18 20:00 Temperature 98.0 F 98.1 F Pulse Rate 76 93 H Respiratory Rate 16 19 18 Blood Pressure 109/43 L 113/93 H Pulse Oximetry 93 L 98 95 07/28/18 23:27 07/29/18 03:34 07/29/18 07:09 Temperature 99.1 F Pulse Rate 80 78 Respiratory Rate 19 19 Blood Pressure 115/58 L 121/70 Pulse Oximetry 100 98 93 L 07/29/18 08:00 Temperature 98.1 F Pulse Rate 73 Respiratory Rate 15 Blood Pressure 163/82 H Pulse Oximetry 100 Intake & Output 07/28/18 07/29/18 07/29/18 18:59 06:59 18:59 Intake Total 1480 / 1480 362.5 / 362.5 Balance 1480 / 1480 362.5 / 362.5 Weight 91.172 kg Intake: IV 1000 / 1000 362.5 / 362.5 NS Inj 1,000 ML @ 30 mls/hr IV. 1000 / 1000 CONT .Q24H [facility] Rx#:[id number] Maxipime Inj 2,000 MG In NS Inj 100 / 100 100 ML @ 200 mls/hr IV.SIG Q24H [facility] Rx#:[id number] Vancomycin Inj 1,250 MG In NS 262.5 / 262.5 Inj 250 ML @ 250 mls/hr IV.SIG ONCE ONE Rx#:[id number] Oral 480 / 480 Other: # Voids 1 Date of Last Bowel Movement 07/28/18 07/29/18 Narrative: GENERAL: Well-nourished, well-developed chronically ill-appearing elderly male patient in NAD. Intermittent confusion consistent with dementia. SKIN: Warm and dry. No rash. Right heel with stage II pressure ulcer. HEENT: Normocephalic. Atraumatic. Pupils equal and round. Mucous membranes pink and moist. NECK: Supple. Trachea midline. CARDIOVASCULAR: Irregular rate and rhythm. 2/6 systolic murmur noted. RESPIRATORY: No accessory muscle use. Clear to auscultation. Breath sounds equal bilaterally. GASTROINTESTINAL: Abdomen soft, non-tender, nondistended. Normoactive bowel sounds x4. MUSCULOSKELETAL: No obvious deformities. Extremities without clubbing, cyanosis , or edema. NEUROLOGICAL: Awake and alert. No obvious cranial nerve deficits. Motor grossly within normal limits. Moving all extremities spontaneously. Normal speech. PSYCHIATRIC: Appropriate mood and affect; insight and judgment limited. Results - Labs CBC & Chem 7: 07/29/18 06:46 07/29/18 06:46 Laboratory Results - last 24 hr 07/28/18 07/28/18 07/28/18 09:55 10:34 10:34 WBC 16.1 H D RBC 3.08 L Hgb 8.8 L Hct 28.4 L MCV 92.2 MCH 28.4 MCHC 30.8 L RDW 17.6 H Plt Count 257 MPV 8.0 Prelim Diff (Auto) Slide review pending Neut % (Auto) 75.3 H Lymph % (Auto) 15.5 [place] % (Auto) 8.0 Eos % (Auto) 0.7 Baso % (Auto) 0.5 Neut # (Auto) 12.1 H Lymph # (Auto) 2.5 [place] # (Auto) 1.3 H Eos # (Auto) 0.1 Baso # (Auto) 0.1 WBC Differential Manual diff final Seg Neuts % (Manual) 69 Band Neuts % (Manual) 14 H Lymphocytes % (Manual) 11 Monocytes % (Manual) 6 Abs Neuts (Manual) 13.4 H Differential Comment . Toxic Granulation 1+ H Platelet Estimate Normal Platelet Morphology Normal Ovalocytes 1+ H Sodium 141 Potassium 3.9 D Chloride 103 Carbon Dioxide 27.0 Anion Gap 11 BUN 19 H Creatinine 3.55 H Estimated GFR 17 L POC Glucose 91 Random Glucose 105 Calcium 7.4 L* Prot Corrected Calcium 8.5 Total Bilirubin 0.6 AST 14 L ALT Less than 6 L Alkaline Phosphatase 118 H Total Protein 5.1 L Albumin 1.8 L Free T4 07/28/18 07/28/18 07/28/18 10:34 12:58 18:02 WBC RBC Hgb Hct MCV MCH MCHC RDW Plt Count MPV Prelim Diff (Auto) Neut % (Auto) Lymph % (Auto) [place] % (Auto) Eos % (Auto) Baso % (Auto) Neut # (Auto) Lymph # (Auto) [place] # (Auto) Eos # (Auto) Baso # (Auto) WBC Differential Seg Neuts % (Manual) Band Neuts % (Manual) Lymphocytes % (Manual) Monocytes % (Manual) Abs Neuts (Manual) Differential Comment Toxic Granulation Platelet Estimate Platelet Morphology Ovalocytes Sodium Potassium Chloride Carbon Dioxide Anion Gap BUN Creatinine Estimated GFR POC Glucose 182 H 174 H Random Glucose Calcium Prot Corrected Calcium Total Bilirubin AST ALT Alkaline Phosphatase Total Protein Albumin Free T4 1.62 H 07/29/18 07/29/18 07/29/18 00:19 03:37 06:46 WBC 9.4 RBC 2.73 L Hgb 8.0 L Hct 25.0 L MCV 91.6 MCH 29.3 MCHC 32.0 RDW 17.3 H Plt Count 236 MPV 7.7 Prelim Diff (Auto) Neut % (Auto) 63.1 Lymph % (Auto) 19.9 [place] % (Auto) 9.4 H Eos % (Auto) 6.9 H Baso % (Auto) 0.7 Neut # (Auto) 5.9 Lymph # (Auto) 1.9 [place] # (Auto) 0.9 Eos # (Auto) 0.7 H Baso # (Auto) 0.1 WBC Differential . Seg Neuts % (Manual) Band Neuts % (Manual) Lymphocytes % (Manual) Monocytes % (Manual) Abs Neuts (Manual) Differential Comment Auto diff final Toxic Granulation Platelet Estimate Platelet Morphology Ovalocytes Sodium Potassium Chloride Carbon Dioxide Anion Gap BUN Creatinine Estimated GFR POC Glucose 195 H 143 H Random Glucose Calcium Prot Corrected Calcium Total Bilirubin AST ALT Alkaline Phosphatase Total Protein Albumin Free T4 07/29/18 06:46 WBC RBC Hgb Hct MCV MCH MCHC RDW Plt Count MPV Prelim Diff (Auto) Neut % (Auto) Lymph % (Auto) [place] % (Auto) Eos % (Auto) Baso % (Auto) Neut # (Auto) Lymph # (Auto) [place] # (Auto) Eos # (Auto) Baso # (Auto) WBC Differential Seg Neuts % (Manual) Band Neuts % (Manual) Lymphocytes % (Manual) Monocytes % (Manual) Abs Neuts (Manual) Differential Comment Toxic Granulation Platelet Estimate Platelet Morphology Ovalocytes Sodium 143 Potassium 3.9 Chloride 108 H Carbon Dioxide 27.1 Anion Gap 8 BUN 26 H Creatinine 3.77 H Estimated GFR 16 L POC Glucose Random Glucose 110 H Calcium 7.6 L Prot Corrected Calcium Total Bilirubin AST ALT Alkaline Phosphatase Total Protein Albumin Free T4 Microbiology 07/27/18 17:25 Blood - Other Aerobic Blood Culture - Preliminary No growth in 1 day 07/27/18 17:25 Blood - Other Anaerobic Blood Culture - Preliminary No growth in 1 day 07/27/18 17:20 Blood - Other Aerobic Blood Culture - Preliminary No growth in 1 day 07/27/18 17:20 Blood - Other Anaerobic Blood Culture - Preliminary No growth in 1 day - Imaging Chest X-Ray 07/27/18 17:13 CONCLUSION: No acute cardiopulmonary disease or significant change. Assessment and Plan - Assessment (1) Hypoglycemia Code(s): E16.2 - Hypoglycemia, unspecified Status: Acute (2) Hypotension Code(s): I95.9 - Hypotension, unspecified Status: Acute (3) Hypokalemia Code(s): E87.6 - Hypokalemia Status: Acute (4) ESRD on hemodialysis Code(s): N18.6 - End stage renal disease; Z99.2 - Dependence on renal dialysis Status: Acute (5) A-fib Code(s): I48.91 - Unspecified atrial fibrillation Status: Acute - Plan 72-year-old male with a PMH of HTN, A. fib on Eliquis, BPH, COPD, Dementia, CAD , ESRD on HD T// and DM who was sent to the ER from SNF due to hypoglycemia. Hypoglycemia: BS 40's, s/p D10 by EMS w/ improvement, BS 194 while in ER w/ no recurrent hypoglycemia. -On Levemir 10u bid and Novolog per SNF records, will hold. -Accu-Checks q2h x12h, then achs -check Hgb A1c -resume insulin once BS stabilized. -patient may not require as much insulin, he reports recent weight loss due to diet at SNF -BG improving, currently 130, awaiting HgbA1c Hypotension: BP 80's on arrival, s/p IVF w/ improvement, BP currently 114/76, HR 60 -giving IVF for hydration, possible volume depletion from dialysis, however concern for sepsis -holding antihypertensives -monitor BP closely, improving SIRS: concern for sepsis, no clear source of infection at this time. Leukocytosis, tachycardic, hypotensive. -WBC elevated to 16.1 K with left shift, BP into 80s/40s, Tachycardia HR 94 -check UA if patient produces any urine -Blood cultures with NGTD -CXR reviewed, no acute findings -Await cultures, consider ID consult if needed Hypokalemia: K+ 2.7, s/p 20mEq K+ replacement in ER -will hold off on additional replacement in light of ESRD on HD. -Repeat labs show improvement with K 3.9 ESRD on HD: // schedule. Follows with Dr. Tabares -consult Nephrology to resume HD. -patient currently lost access for dialysis, plan for permacath placement tomorrow 07/30 A-fib: Chronic -Continue patient's amiodarone -Eliquis on hold for permacath placement -monitor BP closely. DVT Prophylaxis: holding Eliquis for Permacath placement Discharge Planning: Needs permacath placement tomorrow to resume dialysis. Patient will return to [facility] at discharge.
[2018-07-29] MEDS: Pregabalin 75 MG Capsule PO SCH ×2 (09:32→22:14)
[2018-07-29] MEDS: Pantoprazole Sodium 20 MG DR Tablet PO SCH (09:32)
[2018-07-29] MEDS: Sodium Chloride 0.9% 2 ML Flush BID IV.FLUSH SCH ×2 (09:33→22:15)
[2018-07-29] MEDS: Tiotropium Bromide 18 MCG/ACT Inhaler INH SCH (09:33)
[2018-07-29] MEDS: Amiodarone 200 MG Tablet PO SCH ×2 (09:33→22:14)
[2018-07-29] MEDS: Carboxymethylcellulose 0.5% Opth Drops 15 ML Bottle EACH EYE SCH ×2 (09:33→22:14)
[2018-07-29] MEDS: Senna/Docusate Sodium 8.6/50 MG Tablet PO SCH ×2 (09:33→22:14)
[2018-07-29 13:07] LABS: Hemoglobin A1c 6.1 % (4.3-6.0)
--- NOTE | 2018-07-29 15:38 | P.PNNP ---
Subjective Interval history: Patient is more awake Physical Exam Vital signs: Vital Signs 07/28/18 15:49 07/28/18 19:52 07/28/18 20:00 Temperature 98.0 F 98.1 F Pulse Rate 76 93 H Respiratory Rate 16 19 18 Blood Pressure 109/43 L 113/93 H Pulse Oximetry 93 L 98 95 07/28/18 23:27 07/29/18 03:34 07/29/18 07:09 Temperature 99.1 F Pulse Rate 80 78 Respiratory Rate 19 19 Blood Pressure 115/58 L 121/70 Pulse Oximetry 100 98 93 L 07/29/18 08:00 07/29/18 09:00 07/29/18 12:00 Temperature 98.1 F 98.4 F Pulse Rate 73 70 Respiratory Rate 15 14 Blood Pressure 163/82 H 86/42 L Pulse Oximetry 100 93 L 99 07/29/18 14:37 Temperature Pulse Rate 69 Respiratory Rate Blood Pressure Pulse Oximetry Intake & Output 07/28/18 07/29/18 07/29/18 18:59 06:59 18:59 Intake Total 1480 / 1480 362.5 / 362.5 Balance 1480 / 1480 362.5 / 362.5 Weight 91.172 kg Intake: IV 1000 / 1000 362.5 / 362.5 NS Inj 1,000 ML @ 30 mls/hr IV. 1000 / 1000 CONT .Q24H [facility] Rx#:[id number] Maxipime Inj 2,000 MG In NS Inj 100 / 100 100 ML @ 200 mls/hr IV.SIG Q24H [facility] Rx#:[id number] Vancomycin Inj 1,250 MG In NS 262.5 / 262.5 Inj 250 ML @ 250 mls/hr IV.SIG ONCE ONE Rx#:[id number] Oral 480 / 480 Other: # Voids 1 Date of Last Bowel Movement 07/28/18 07/29/18 07/28/18 Narrative: GENERAL: Well-nourished, well-developed patient. SKIN: Warm and dry. HEAD: Normocephalic. EYES: No scleral icterus. No injection or drainage. NECK: Supple, trachea midline. No JVD or lymphadenopathy. CARDIOVASCULAR: Irregular heart rate. RESPIRATORY: Breath sounds equal bilaterally. No accessory muscle use. GASTROINTESTINAL: Abdomen soft, non-tender, nondistended. EXTREMITIES: Mild edema NEUROLOGICAL: Awake, alert, . Assessment and Plan - Assessment (1) ESRD (end stage renal disease) on dialysis Code(s): N18.6 - End stage renal disease; Z99.2 - Dependence on renal dialysis Status: Chronic (2) Anemia of renal disease Code(s): D63.1 - Anemia in chronic kidney disease Status: Chronic (3) Toxic metabolic encephalopathy Code(s): G92 - Toxic encephalopathy Status: Acute (4) Hypoglycemia Code(s): E16.2 - Hypoglycemia, unspecified Status: Acute - Plan Patient is seen there is no urgency to start dialysis today, he will need a permacath reinsertion This can be done on Monday morning, orders placed Permacath reinsertion in the a.m. He follows with Dr. Tabares who will be back on Monday
[2018-07-29] MEDS: Sod Chloride 0.9% Inj 1,000 ML IV.CONT SCH (18:40)
[2018-07-30 06:27] LABS: Calcium 7.5 mg/dL (8.5-10.1); Carbon Dioxide 25.6 meq/L (21.0-32.0)
[2018-07-30 06:31] LABS: Vancomycin,Random 20.3 Comment
[2018-07-30] MEDS: Levothyroxine 100 MCG Tablet PO SCH (08:03)
--- NOTE | 2018-07-30 08:53 | P.PNNP ---
Subjective Interval history: Patient was admitted with hypoglycemia, found to be hypotensive, given IVF. No signs of infection. Recently was admitted with UTI with sepsis, had PermCath exchanged. Patient has pulled out PermCath. Needs a new dialysis access for dialysis. Labs were noted. He has underlying dementia. Physical Exam Vital signs: Vital Signs 07/29/18 09:00 07/29/18 12:00 07/29/18 14:37 Temperature 98.4 F Pulse Rate 70 69 Respiratory Rate 14 Blood Pressure 86/42 L Pulse Oximetry 93 L 99 07/29/18 16:00 07/29/18 19:21 07/30/18 00:00 Temperature 97.9 F 99.1 F 99.8 F H Pulse Rate 71 68 70 Respiratory Rate 14 18 19 Blood Pressure 79/48 L 92/48 L 133/72 Pulse Oximetry 95 97 97 07/30/18 04:00 Temperature Pulse Rate 72 Respiratory Rate 20 Blood Pressure 110/51 L Pulse Oximetry 100 Intake & Output 07/29/18 07/30/18 07/30/18 18:59 06:59 18:59 Intake Total 100 / 100 Balance 100 / 100 Intake: IV 100 / 100 Maxipime Inj 2,000 MG In NS Inj 100 / 100 100 ML @ 200 mls/hr IV.SIG Q24H [facility] Rx#:[id number] Other: Date of Last Bowel Movement 07/28/18 07/28/18 Narrative: GENERAL: well developed, malnourished. SKIN: Warm and dry. HEAD: Normocephalic. EYES: No scleral icterus. No injection or drainage. NECK: Supple, trachea midline. No JVD or lymphadenopathy. CARDIOVASCULAR: Irregular heart rate. RESPIRATORY: Breath sounds equal bilaterally. No accessory muscle use. GASTROINTESTINAL: Abdomen soft, non-tender, nondistended. EXTREMITIES: Mild edema . Assessment and Plan - Assessment (1) ESRD (end stage renal disease) on dialysis Code(s): N18.6 - End stage renal disease; Z99.2 - Dependence on renal dialysis Status: Chronic Plan: Has not had dialysis since last . Needs a new dialysis catheter for dialysis today. IR consulted. (2) Anemia of renal disease Code(s): D63.1 - Anemia in chronic kidney disease Status: Chronic Plan: Epogen with dialysis. (3) Toxic metabolic encephalopathy Code(s): G92 - Toxic encephalopathy Status: Acute Plan: Underlying dementia. No evidence of active infection. Was hypoglycemic on admission. (4) Hypoglycemia Code(s): E16.2 - Hypoglycemia, unspecified Status: Acute
[2018-07-30] MEDS: Amiodarone 200 MG Tablet PO SCH ×2 (10:04→22:50)
[2018-07-30] MEDS: Sodium Chloride 0.9% 2 ML Flush BID IV.FLUSH SCH ×2 (10:05→22:50)
[2018-07-30] MEDS: Pantoprazole Sodium 20 MG DR Tablet PO SCH (10:05)
[2018-07-30] MEDS: Pregabalin 75 MG Capsule PO SCH ×2 (10:05→22:49)
[2018-07-30] MEDS: Carboxymethylcellulose 0.5% Opth Drops 15 ML Bottle EACH EYE SCH ×2 (10:06→22:51)
[2018-07-30] MEDS: Senna/Docusate Sodium 8.6/50 MG Tablet PO SCH ×2 (10:06→22:50)
[2018-07-30] MEDS: Tiotropium Bromide 18 MCG/ACT Inhaler INH SCH (10:06)
--- NOTE | 2018-07-30 10:17 | P.PN ---
Subjective Interval history: Follow-up for hypoglycemia, hypertension. The patient is more awake and alert today. No further episodes of hypoglycemia or hypotension. He denies any lightheadedness or dizziness. He does report just feeling weak, however slightly improved compared to yesterday. Denies any fevers or chills, although documented temperature of 99.8 last night. The patient does still make urine, denies any dysuria, but states he has had problems with UTIs in the past. Discussed with RN, patient is incontinent, will attempt to collect urine sample. He denies any other medical complaints at this time. Going for Vas- Cath placement today. Unable to place permacath until Monday due to recently receiving anticoagulation. Physical Exam Vital signs: Vital Signs 07/29/18 12:00 07/29/18 14:37 07/29/18 16:00 Temperature 98.4 F 97.9 F Pulse Rate 70 69 71 Respiratory Rate 14 14 Blood Pressure 86/42 L 79/48 L Pulse Oximetry 99 95 07/29/18 19:21 07/30/18 00:00 07/30/18 04:00 Temperature 99.1 F 99.8 F H Pulse Rate 68 70 72 Respiratory Rate 18 19 20 Blood Pressure 92/48 L 133/72 110/51 L Pulse Oximetry 97 97 100 07/30/18 08:53 07/30/18 09:04 Temperature 99.3 F 97.8 F Pulse Rate 80 77 Respiratory Rate 16 20 Blood Pressure 121/59 L 98/67 L Pulse Oximetry 92 L 100 Intake & Output 07/29/18 07/30/18 07/30/18 18:59 06:59 18:59 Intake Total 100 / 100 Balance 100 / 100 Intake: IV 100 / 100 Maxipime Inj 2,000 MG In NS Inj 100 / 100 100 ML @ 200 mls/hr IV.SIG Q24H [facility] Rx#:[id number] Other: Date of Last Bowel Movement 07/28/18 07/28/18 Narrative: GENERAL: Well-nourished, well-developed chronically ill-appearing elderly male patient in NAD. Intermittent confusion consistent with dementia. SKIN: Warm and dry. No rash. Right heel with stage II pressure ulcer. Sacrum and buttocks with skin breakdown. HEENT: Normocephalic. Atraumatic. Pupils equal and round. Mucous membranes pink and moist. NECK: Supple. Trachea midline. CARDIOVASCULAR: Irregular rate and rhythm. 2/6 systolic murmur noted. RESPIRATORY: No accessory muscle use. Clear to auscultation. Breath sounds equal bilaterally. GASTROINTESTINAL: Abdomen soft, non-tender, nondistended. Normoactive bowel sounds x4. MUSCULOSKELETAL: No obvious deformities. Extremities without clubbing, cyanosis , or edema. NEUROLOGICAL: Awake and alert. No obvious cranial nerve deficits. Motor grossly within normal limits. Moving all extremities spontaneously. Normal speech. PSYCHIATRIC: Appropriate mood and affect; insight and judgment limited. . Results - Labs CBC & Chem 7: 07/29/18 06:46 07/30/18 04:59 Laboratory Results - last 24 hr 07/29/18 07/29/18 07/29/18 06:46 12:37 17:25 Sodium Potassium Chloride Carbon Dioxide Anion Gap BUN Creatinine Estimated GFR POC Glucose 148 H 161 H Random Glucose Hemoglobin A1c 6.1 H Calcium Random Vancomycin 07/29/18 07/30/18 22:12 04:59 Sodium 143 Potassium 4.0 Chloride 108 H Carbon Dioxide 25.6 Anion Gap 9 BUN 27 H Creatinine 3.81 H Estimated GFR 16 L POC Glucose 174 H Random Glucose 119 H Hemoglobin A1c Calcium 7.5 L Random Vancomycin 20.3 Microbiology 07/27/18 17:25 Blood - Other Aerobic Blood Culture - Preliminary No growth in 2 days 07/27/18 17:25 Blood - Other Anaerobic Blood Culture - Preliminary No growth in 2 days 07/27/18 17:20 Blood - Other Aerobic Blood Culture - Preliminary No growth in 2 days 07/27/18 17:20 Blood - Other Anaerobic Blood Culture - Preliminary No growth in 2 days - Imaging Chest X-Ray 07/27/18 17:13 CONCLUSION: No acute cardiopulmonary disease or significant change. - Procedures 07/30/18 - right Internal Jugular Hemodialysis Catheter Non-Tunneled Placement Assessment and Plan - Assessment (1) Hypoglycemia Code(s): E16.2 - Hypoglycemia, unspecified Status: Acute (2) Hypotension Code(s): I95.9 - Hypotension, unspecified Status: Acute (3) Hypokalemia Code(s): E87.6 - Hypokalemia Status: Acute (4) ESRD on hemodialysis Code(s): N18.6 - End stage renal disease; Z99.2 - Dependence on renal dialysis Status: Acute (5) A-fib Code(s): I48.91 - Unspecified atrial fibrillation Status: Acute - Plan 72-year-old male with a PMH of HTN, A. fib on Eliquis, BPH, COPD, Dementia, CAD , ESRD on HD T/ and DM who was sent to the ER from [facility] due to hypoglycemia. Hypoglycemia: BS 40's, s/p D10 by EMS w/ improvement, BS 194 while in ER w/ no recurrent hypoglycemia. -On Levemir 10u bid and Novolog per [facility] records, will hold. -Accu-Checks q2h x12h, then achs -check Hgb A1c -resume insulin once BS stabilized. -patient may not require as much insulin, he reports recent weight loss due to diet at [facility] -BG improving, currently 130, HgbA1c 6.1, patient can likely be on sliding scale only while at [facility], discontinue Levemir for now Hypotension: BP 80's on arrival, s/p IVF w/ improvement, BP currently 114/76, HR 60 -giving IVF for hydration, possible volume depletion from dialysis, however concern for sepsis -holding antihypertensives -monitor BP closely, improving SIRS: concern for sepsis, no clear source of infection at this time. Leukocytosis, tachycardic, hypotensive. -WBC elevated to 16.1 K with left shift, BP into 80s/40s, Tachycardia HR 94 -Blood cultures with NGTD -CXR reviewed, no acute findings -check UA, discussed with RN to collect -CBC improved, WBC 9.4K, monitor Hypokalemia: K+ 2.7, s/p 20mEq K+ replacement in ER -will hold off on additional replacement in light of ESRD on HD. -Repeat labs show improvement with K 4.0 ESRD on HD: / schedule. Follows with Dr. Tabares -consult Nephrology to resume HD. -patient lost access for dialysis, IR consulted, placed Vascath 07/30 -plan for permacath placement Wed 08/01 A-fib: Chronic -Continue patient's amiodarone -Eliquis on hold for permacath placement -monitor BP closely. DVT Prophylaxis: holding Eliquis for Permacath placement Discharge Planning: Needs permacath placement Wed 08/01 (delayed due to being on Eliquis). Follow up on urinalysis once collected. Patient will return to SNF at discharge.
[2018-07-30] MEDS ORDERED: *Heparin 10,000 UNITS/10 ML Vial Periprocedural ONLY ONE (10:39)
--- NOTE | 2018-07-30 11:22 | P.RAD ---
Post Procedure Progress Note - Pre Procedure Diagnosis (1) Acute on chronic kidney failure - Post Procedure Diagnosis (1) Acute on chronic kidney failure (2) ESRD (end stage renal disease) on dialysis - Procedure Information Procedure Date: 07/30/18 Supervising Radiologist: Raleigh Guillen MD Estimated blood loss (mL): 2 Anesthesia: Local - Plan of Activity Patient to Unit: Nursing Unit Patient Condition: Good See PACS Report for procedural detail/treatment. [facility] Radiology Procedures right Internal Jugular Hemodialysis Catheter Non-Tunneled Placement Latvian: 14 PICC Line Length (cm): 15 - Additional Detail Findings: Patient on Eloquist. Can convert to PermCath after medication hold.
[2018-07-30 13:49] LABS: Activated Partial Thrombo Time 48.1 sec (24.3-30.1); INR 1.3 Ratio; Prothrombin Time 13.2 sec (9.8-11.6)
--- NOTE | 2018-07-30 17:33 | P.PNWCN ---
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 Right buttock wound Q3D and PRN for saturation or dislodgement: -Cleanse wound with NS and pat dry. -Apply Optifoam AG. -Secure with dry cover. -Date dressing. -Use disposable ultrasorb for moisture wicking. Please do not use cotton pull pads. Patient is a self turn. Bilateral heel wounds BID and PRN: -Apply Cavilon skin barrier film to lateral heels and leave open to air. -Float heels off mattress surface at all times. Additional information: Patient seen in F pod today for wound evaluation of right buttock and bilateral heels. Wound/Pressure Injury - Patient Status Premedicated for Pain Prior to Dressing Change: No - Wound Right Buttocks Wound Staging: Stage II Wound Assessment: Admission Wound Type: Pressure Injury Is This a Chronic Wound: Yes Requested from Provider a Wound Care Consult: Yes Length (cm): 1 (cm) Width (cm): 1 (cm) Depth (cm): 0.2 (cm) Wound Bed Appearance: Red Wound Bed Appearance: Circular wound bed with defined sharp wound margins. No active drainage and no odor noted. Surrounding Tissue Appearance: Erythema (blanching with denuded peeling skin) Dressing Status: Changed Cleansing Solution: Saline Primary Dressing: Optifoam AG Cover Dressing: Bordered gauze Wound Dressing Change Date: 07/30/18 Bilateral heels Wound Staging: DTI Wound Assessment: Admission Is This a Chronic Wound: Yes Requested from Provider a Wound Care Consult: Yes Length (cm): 2 (cm) Width (cm): 3 (cm) Depth (cm): 0 (cm) Wound Bed Appearance: Dry not open, non blanching dark maroon discoloration resolving Dressing Status: Open to Air (floated heels off bed by placing a pillow underneath calves)
[2018-07-30] MEDS: Insulin NovoLOG Aspart Correctional Sugar Inj SQ SCH ×2 (18:07→22:54)
[2018-07-30] MEDS: Sod Chloride 0.9% Inj 1,000 ML IV.CONT SCH (18:29)
[2018-07-31] MEDS: Levothyroxine 100 MCG Tablet PO SCH (06:18)
[2018-07-31] MEDS ORDERED: Vancomycin Inj 1,000 MG in Sodium Chlor 0.9% Inj 250 ML IV.SIG SCH (08:00)
[2018-07-31] MEDS ORDERED: Vancomycin Inj 1 GM/200 ML PIGGYBACK IV.SIG SCH (08:00)
[2018-07-31 08:12] LABS: Calcium 7.4 mg/dL (8.5-10.1); Carbon Dioxide 27.7 meq/L (21.0-32.0); Potassium 3.8 meq/L (3.5-5.1)
[2018-07-31] MEDS: Amiodarone 200 MG Tablet PO SCH ×2 (08:24→20:22)
[2018-07-31] MEDS: Carboxymethylcellulose 0.5% Opth Drops 15 ML Bottle EACH EYE SCH ×2 (08:25→20:22)
[2018-07-31] MEDS: Sodium Chloride 0.9% 2 ML Flush BID IV.FLUSH SCH ×2 (08:25→20:22)
[2018-07-31] MEDS: Tiotropium Bromide 18 MCG/ACT Inhaler INH SCH (08:25)
--- NOTE | 2018-07-31 08:48 | P.PNNP ---
Subjective Interval history: patient had Vascath yesterday, that did not function well. To have PermCath today. Dialysis today as he usually dialyzes TTS. Physical Exam Vital signs: Vital Signs 07/30/18 08:53 07/30/18 09:04 07/30/18 10:00 Temperature 99.3 F 97.8 F Pulse Rate 80 77 75 Respiratory Rate 16 20 Blood Pressure 121/59 L 98/67 L Pulse Oximetry 92 L 100 07/30/18 12:10 07/30/18 16:00 07/30/18 20:00 Temperature 98.0 F 98.5 F 98.2 F Pulse Rate 87 82 70 Respiratory Rate 20 20 17 Blood Pressure 136/71 115/51 L 127/58 L Pulse Oximetry 96 96 98 07/31/18 00:00 07/31/18 04:00 07/31/18 08:00 Temperature 98 F 98.5 F 98.0 F Pulse Rate 71 74 73 Respiratory Rate 17 17 18 Blood Pressure 118/59 L 147/66 H 137/79 Pulse Oximetry 98 98 100 Intake & Output 07/30/18 07/31/18 07/31/18 18:59 06:59 18:59 Intake Total 1100 / 1100 Output Total 2200 / 2200 0 / 0 Balance -2200 / -2200 1100 / 1100 Intake: IV 1100 / 1100 NS Inj 1,000 ML @ 30 mls/hr IV. 1000 / 1000 CONT .Q24H [facility] Rx#:[id number] Maxipime Inj 2,000 MG In NS Inj 100 / 100 100 ML @ 200 mls/hr IV.SIG Q24H [facility] Rx#:[id number] Output: Urine 0 / 0 Hemodialysis Amount 2200 / 2200 Other: Date of Last Bowel Movement 07/28/18 07/29/18 Narrative: GENERAL: well-developed chronically ill-appearing elderly male patient in NAD. Intermittent confusion consistent with dementia. SKIN: Warm and dry. No rash. Right heel with stage II pressure ulcer. Sacrum and buttocks with skin breakdown. HEENT: Normocephalic. Atraumatic. Pupils equal and round. Mucous membranes pink and moist. NECK: Supple. Trachea midline. CARDIOVASCULAR: Irregular rate and rhythm. 2/6 systolic murmur noted. RESPIRATORY: No accessory muscle use. Clear to auscultation. Breath sounds equal bilaterally. GASTROINTESTINAL: Abdomen soft, non-tender, nondistended. Normoactive bowel sounds x4. MUSCULOSKELETAL: No obvious deformities. Extremities without clubbing, cyanosis , or edema. NEUROLOGICAL: Moving all extremities spontaneously. . Assessment and Plan - Assessment (1) ESRD (end stage renal disease) on dialysis Code(s): N18.6 - End stage renal disease; Z99.2 - Dependence on renal dialysis Status: Chronic Plan: Dialysis today. PermCath placement today. (2) Anemia of renal disease Code(s): D63.1 - Anemia in chronic kidney disease Status: Chronic Plan: Epogen with dialysis. Hemoglobin is lower. Will continue to monitor. (3) Toxic metabolic encephalopathy Code(s): G92 - Toxic encephalopathy Status: Acute Plan: Underlying dementia. No evidence of active infection. Was hypoglycemic on admission. (4) Hypoglycemia Code(s): E16.2 - Hypoglycemia, unspecified Status: Acute - Plan Patient can be discharged from renal standpoint after dialysis and PermCath placement today.
[2018-07-31] MEDS: Insulin NovoLOG Aspart Correctional Sugar Inj SQ SCH ×4 (09:41→20:19)
[2018-07-31] MEDS ORDERED: *Heparin 10,000 UNITS/10 ML Vial Periprocedural ONLY ONE (14:15)
[2018-07-31] MEDS ORDERED: Lidocaine 1%/Epinephrine 1:100,000 Inj 20 ML Vial ONE (14:16)
[2018-07-31] MEDS: fentaNYL Citrate Inj 100 MCG/2 ML Ampul ONE ×2 (14:20→18:47)
--- NOTE | 2018-07-31 15:12 | P.PN ---
Subjective Interval history: Patient is seen lying in bed. He does not have any complaints. No chest pain or shortness of breath. No lightheadedness or dizziness. Nursing reports no adverse events overnight. Patient has been unable to produce urine for UA. Physical Exam Vital signs: Vital Signs 07/30/18 16:00 07/30/18 20:00 07/31/18 00:00 Temperature 98.5 F 98.2 F 98 F Pulse Rate 82 70 71 Respiratory Rate 20 17 17 Blood Pressure 115/51 L 127/58 L 118/59 L Pulse Oximetry 96 98 98 07/31/18 04:00 07/31/18 08:00 Temperature 98.5 F 98.0 F Pulse Rate 74 67 Respiratory Rate 17 18 Blood Pressure 147/66 H 137/79 Pulse Oximetry 98 100 Intake & Output 07/30/18 07/31/18 07/31/18 18:59 06:59 18:59 Intake Total 1100 / 1100 Output Total 2200 / 2200 0 / 0 2500 / 2500 Balance -2200 / -2200 1100 / 1100 -2500 / -2500 Intake: IV 1100 / 1100 NS Inj 1,000 ML @ 30 mls/hr IV. 1000 / 1000 CONT .Q24H [facility] Rx#:[id number] Maxipime Inj 2,000 MG In NS Inj 100 / 100 100 ML @ 200 mls/hr IV.SIG Q24H [facility] Rx#:[id number] Output: Urine 0 / 0 Hemodialysis Amount 2200 / 2200 2500 / 2500 Other: Date of Last Bowel Movement 07/28/18 07/29/18 Narrative: GENERAL: well-developed chronically ill-appearing elderly male patient in [facility]. SKIN: Warm and dry. No rash. Right heel with stage II pressure ulcer. Sacrum and buttocks with skin breakdown. HEENT: Normocephalic. Atraumatic. Pupils equal and round. Mucous membranes pink and moist. CARDIOVASCULAR: Irregular rate and rhythm. 2/6 systolic murmur noted. RESPIRATORY: No accessory muscle use. Clear to auscultation. Breath sounds equal bilaterally. GASTROINTESTINAL: Abdomen soft, non-tender, nondistended. Normoactive bowel sounds x4. MUSCULOSKELETAL: No obvious deformities. Extremities without clubbing, cyanosis , or edema. NEUROLOGICAL: Moving all extremities spontaneously. Intermittent confusion consistent with dementia. Results - Labs CBC & Chem 7: 07/29/18 06:46 07/31/18 06:15 Laboratory Results - last 24 hr 07/30/18 07/30/18 07/31/18 18:06 22:53 06:15 Sodium 144 Potassium 3.8 Chloride 108 H Carbon Dioxide 27.7 Anion Gap 8 BUN 18 Creatinine 2.94 H Estimated GFR 21 L POC Glucose 138 H 118 H Random Glucose 82 Calcium 7.4 L* Prot Corrected Calcium 8.6 Total Protein 5.0 L 07/31/18 07/31/18 08:41 12:06 Sodium Potassium Chloride Carbon Dioxide Anion Gap BUN Creatinine Estimated GFR POC Glucose 82 76 Random Glucose Calcium Prot Corrected Calcium Total Protein Microbiology 07/27/18 17:25 Blood - Other Aerobic Blood Culture - Preliminary No growth in 4 days 07/27/18 17:25 Blood - Other Anaerobic Blood Culture - Preliminary No growth in 4 days 07/27/18 17:20 Blood - Other Aerobic Blood Culture - Preliminary No growth in 4 days 07/27/18 17:20 Blood - Other Anaerobic Blood Culture - Preliminary No growth in 4 days - Procedures 07/30/18 - right Internal Jugular Hemodialysis Catheter Non-Tunneled Placement Assessment and Plan - Assessment (1) Hypoglycemia Code(s): E16.2 - Hypoglycemia, unspecified Status: Acute (2) Hypotension Code(s): I95.9 - Hypotension, unspecified Status: Acute (3) Hypokalemia Code(s): E87.6 - Hypokalemia Status: Acute (4) ESRD on hemodialysis Code(s): N18.6 - End stage renal disease; Z99.2 - Dependence on renal dialysis Status: Acute (5) A-fib Code(s): I48.91 - Unspecified atrial fibrillation Status: Acute - Plan 72-year-old male with a PMH of HTN, A. fib on Eliquis, BPH, COPD, Dementia, CAD , ESRD on HD T//S and DM who was sent to the ER from SNF due to hypoglycemia. Hypoglycemia: BS 40's, s/p D10 by EMS w/ improvement, BS 194 while in ER w/ no recurrent hypoglycemia. -On Levemir 10u bid and Novolog per SNF records, will hold. -Accu-Checks q2h x12h, then achs -check Hgb A1c -resume insulin once BS stabilized. -patient may not require as much insulin, he reports recent weight loss due to diet at [facility] -BG improving, currently 130, HgbA1c 6.1, patient can likely be on sliding scale only while at [facility], discontinue Levemir for now Hypotension: BP 80's on arrival, s/p IVF w/ improvement, BP currently 114/76, HR 60 -giving IVF for hydration, possible volume depletion from dialysis, however concern for sepsis -holding antihypertensives -monitor BP closely, improving SIRS: concern for sepsis, no clear source of infection at this time. Leukocytosis, tachycardic, hypotensive. -WBC elevated to 16.1 K with left shift, BP into 80s/40s, Tachycardia HR 94 -Blood cultures with NGTD -CXR reviewed, no acute findings -check UA, discussed with RN to collect -unable to collect -CBC improved, WBC 9.4K, monitor Hypokalemia: K+ 2.7, s/p 20mEq K+ replacement in ER -will hold off on additional replacement in light of ESRD on HD. -Repeat labs show improvement with K 4.0 ESRD on HD: // schedule. Follows with Dr. Tabares -consult Nephrology to resume HD. -patient lost access for dialysis, IR consulted, placed Vascath 07/30 -poor function -plan for permacath placement today A-fib: Chronic -Continue patient's amiodarone -Eliquis on hold for permacath placement -monitor BP closely. DVT Prophylaxis: holding Eliquis for Permacath placement Discharge Planning: Needs permacath placement -cleared for discharge both medically and by dialysis once complete. Patient will return to SNF at discharge.
--- NOTE | 2018-07-31 16:32 | IR ---
EXAM DATE: 07/31/2018 12:00 AM EDT AGE/SEX: 72 years / Male INDICATIONS: Patient with End Stage Renal Disease in need of temporary dialysis catheter conversion to tunneled dialysis catheter. CLINICAL DATA: This is the patient's subsequent encounter. Patient reports that signs and symptoms h ave been present for 4 - 6 days and indicates a pain score of 0/10. MEDICAL/SURGICAL HISTORY: Renal disease, end stage. Dysphasia, BPH, Diabetes Mellitus, Sleep Ap mary, PTSD, COPD, Systolic Heart Failure, A-Fib, CAD, Dementia, HTN, Fibromyalgia, Hyperlipidemia, Hyp othyroid, Nephrolithiasis . Lung biopsy, Hand surgery, TURP, Coronary Artery Stent, Nephrostomy. COMPARISON: No prior exams available for comparison. FLUORO TIME (min): 0.5 IMAGE SERIES: 1 SEDATION TIME (min): 30 MEDICATION(S): 1.5 mg midazolam (Versed) IV 75 mcg fentanyl (Sublimaze) IV DEVICE(S): Palindrome RT Reverse-Tunneled Catheter, 23cm 15 Slovenian double lumen . . PROCEDURE: 1. Dialysis catheter placement. 2. Conscious sedation with continuous EKG and oximetry monitoring. The risks, benefits and alternatives to the procedure were explained and verbal and written consent w as obtained. The site was prepped in sterile fashion. Full sterile technique was used, including ca p, mask, sterile gloves and gown and a large sterile sheet. Hand hygiene and 2% chlorhexidine and/or betadine/alcohol prep was utilized per protocol for cutaneous antisepsis. The skin and subcutaneous tissues were infiltrated with local anesthetic solution. With fluoroscopic guidance a dermatotomy was created using the existing venous access. A subcutaneou s tunnel was created in a retrograde fashion the catheter was pulled through the tunnel. The cathete r was flushed and assembled and locked with heparin. The catheter was sutured in place. Conscious sedation was performed with the prescribed dosages and duration as above in the presence of an independent trained radiology nurse to assist in the monitoring of the patient. EKG and oximetry remained stable throughout the procedure. The patient tolerated the procedure well and there were n o complications. The patient was sent to post anesthesia recovery in stable condition. CONCLUSION: 1. Uncomplicated Dialysis catheter placement as above. Electronically signed by: Nnamdi Cardenas MD 07/31/2018 4:30 PM EDT
[2018-07-31] MEDS: Pregabalin 75 MG Capsule PO SCH ×2 (17:22→20:11)
[2018-07-31] MEDS: Pantoprazole Sodium 20 MG DR Tablet PO SCH (17:23)
[2018-07-31] MEDS: Senna/Docusate Sodium 8.6/50 MG Tablet PO SCH ×2 (17:23→20:22)
[2018-07-31] MEDS: Sod Chloride 0.9% Inj 1,000 ML IV.CONT SCH (18:51)
[2018-08-01] MEDS: Levothyroxine 100 MCG Tablet PO SCH (06:16)
[2018-08-01 07:22] LABS: Calcium 7.4 mg/dL (8.5-10.1); Carbon Dioxide 30.2 meq/L (21.0-32.0); Potassium 3.9 meq/L (3.5-5.1); Vancomycin,Random 23.5 Comment
--- NOTE | 2018-08-01 07:42 | P.PN ---
Subjective Interval history: Patient is seen lying in bed. Per nursing he has been very hostile all morning and is refusing interventions. He tells me that he is fine but he is unhappy that he is not been fed yet even though it is only 7:30 AM. Physical Exam Vital signs: Vital Signs 07/31/18 08:00 07/31/18 15:35 07/31/18 15:50 Temperature 98.0 F 97.7 F Pulse Rate 67 85 79 Respiratory Rate 18 20 20 Blood Pressure 137/79 93/50 L 102/51 L Pulse Oximetry 100 94 L 94 L 07/31/18 16:20 07/31/18 19:47 07/31/18 23:39 Temperature 98.5 F 98.3 F Pulse Rate 81 87 71 Respiratory Rate 20 17 17 Blood Pressure 100/55 L 100/51 L 126/58 L Pulse Oximetry 96 98 98 08/01/18 00:01 08/01/18 03:44 08/01/18 04:01 Temperature 98.3 F Pulse Rate 73 76 71 Respiratory Rate 17 Blood Pressure 136/63 Pulse Oximetry 99 Intake & Output 07/31/18 08/01/18 08/01/18 18:59 06:59 18:59 Intake Total 100 / 100 Output Total 2500 / 2500 Balance -2500 / -2500 100 / 100 Intake: IV 100 / 100 Maxipime Inj 2,000 MG In NS Inj 100 / 100 100 ML @ 200 mls/hr IV.SIG Q24H [facility] Rx#:[id number] Output: Hemodialysis Amount 2500 / 2500 Other: # Voids 1 Date of Last Bowel Movement 07/29/18 Narrative: GENERAL: well-developed chronically ill-appearing elderly male patient in [facility]. SKIN: Warm and dry. No rash. Right heel with stage II pressure ulcer. Sacrum and buttocks with skin breakdown. PermCath in right chest wall. HEENT: Normocephalic. Atraumatic. Pupils equal and round. Mucous membranes pink and moist. CARDIOVASCULAR: Irregular rate and rhythm. 2/6 systolic murmur noted. RESPIRATORY: No accessory muscle use. Clear to auscultation. Breath sounds equal bilaterally. GASTROINTESTINAL: Abdomen soft, non-tender, nondistended. Normoactive bowel sounds x4. MUSCULOSKELETAL: No obvious deformities. Extremities without clubbing, cyanosis , or edema. NEUROLOGICAL: Moving all extremities spontaneously. Intermittent confusion consistent with dementia. Results - Labs CBC & Chem 7: 07/29/18 06:46 08/01/18 05:35 Laboratory Results - last 24 hr 07/31/18 07/31/18 07/31/18 06:15 08:41 12:06 Sodium 144 Potassium 3.8 Chloride 108 H Carbon Dioxide 27.7 Anion Gap 8 BUN 18 Creatinine 2.94 H Estimated GFR 21 L POC Glucose 82 76 Random Glucose 82 Calcium 7.4 L* Prot Corrected Calcium 8.6 Total Protein 5.0 L Random Vancomycin 07/31/18 07/31/18 08/01/18 18:35 20:18 05:35 Sodium 145 Potassium 3.9 Chloride 107 Carbon Dioxide 30.2 Anion Gap 8 BUN 13 Creatinine 2.64 H Estimated GFR 24 L POC Glucose 66 L 125 H Random Glucose 91 Calcium 7.4 L* Prot Corrected Calcium Total Protein Random Vancomycin 23.5 Microbiology 07/27/18 17:25 Blood - Other Aerobic Blood Culture - Preliminary No growth in 4 days 07/27/18 17:25 Blood - Other Anaerobic Blood Culture - Preliminary No growth in 4 days 07/27/18 17:20 Blood - Other Aerobic Blood Culture - Preliminary No growth in 4 days 07/27/18 17:20 Blood - Other Anaerobic Blood Culture - Preliminary No growth in 4 days - Imaging Impressions Catheter Placement 07/31/18 00:00 CONCLUSION: 1. Uncomplicated Dialysis catheter placement as above. - Procedures 07/30/18 - right Internal Jugular Hemodialysis Catheter Non-Tunneled Placement Assessment and Plan - Assessment (1) Hypoglycemia Code(s): E16.2 - Hypoglycemia, unspecified Status: Acute (2) Hypotension Code(s): I95.9 - Hypotension, unspecified Status: Acute (3) Hypokalemia Code(s): E87.6 - Hypokalemia Status: Acute (4) ESRD on hemodialysis Code(s): N18.6 - End stage renal disease; Z99.2 - Dependence on renal dialysis Status: Acute (5) A-fib Code(s): I48.91 - Unspecified atrial fibrillation Status: Acute - Plan 72-year-old male with a PMH of HTN, A. fib on Eliquis, BPH, COPD, Dementia, CAD , ESRD on HD T// and DM who was sent to the ER from SNF due to hypoglycemia. Hypoglycemia: BS 40's, s/p D10 by EMS w/ improvement, BS 194 while in ER w/ no recurrent hypoglycemia. -On Levemir 10u bid and Novolog per SNF records, will hold. -Accu-Checks q2h x12h, then achs -check Hgb A1c -resume insulin once BS stabilized. -patient may not require as much insulin, he reports recent weight loss due to diet at SNF -BG improving, currently 130, HgbA1c 6.1, patient can likely be on sliding scale only while at SNF, discontinue Levemir for now Hypotension: BP 80's on arrival, s/p IVF w/ improvement, BP currently 114/76, HR 60 -giving IVF for hydration, possible volume depletion from dialysis. -holding antihypertensives -monitor BP closely, improving SIRS: concern for sepsis, no clear source of infection at this time. Leukocytosis, tachycardic, hypotensive. -WBC elevated to 16.1 K with left shift, BP into 80s/40s, Tachycardia HR 94 -Blood cultures with NGTD -CXR reviewed, no acute findings -check UA, discussed with RN to collect -unable to collect -CBC improved, WBC 9.4K, monitor Hypokalemia: K+ 2.7, s/p 20mEq K+ replacement in ER -will hold off on additional replacement in light of ESRD on HD. -Repeat labs show improvement with K 4.0 ESRD on HD: // schedule. Follows with Dr. Tabares -consult Nephrology to resume HD. -patient lost access for dialysis, IR consulted, placed Vascath 07/30 -poor function -PermCath placed 07/31/18; patient has been cleared for discharge by nephro A-fib: Chronic -Continue patient's amiodarone -Eliquis on hold for permacath placement; will restart based on guidelines -monitor BP closely. DVT Prophylaxis: holding Eliquis for Permacath placement Discharge Planning: Needs permacath placement -cleared for discharge both medically and by dialysis once complete. Patient will return to SNF at discharge.
--- NOTE | 2018-08-01 08:06 | P.DS ---
Date of admission: 07/27/18 20:03 Primary care physician: Landen Haley MD Attending physician on discharge: Romeo Miranda Anticipated date of discharge: 08/01/18 Brief History from admission: This is a 72-year-old male with a PMH of HTN, A. fib on Eliquis, BPH, COPD, Dementia, CAD, ESRD on HD T/Th/S and DM who was sent to the ER from SNF due to hypoglycemia. Per EMS, BS 40's, s/p D10 w/ improvement. Per review of medication list, pt on Levemir 10u bid and Novolog, not on oral antihyperglycemics per SNF records. Upon arrival, noted to be hypotensive w/ BP 87/51, HR 58, s/p IVF w/ improvement, BP currently 114/76, HR 60. CBC essentially unremarkable. Hemoglobin 8.7, previously 7.5 on 07/20/2018. K+ 2.7. Creatinine 3.09, previously 3.15 on 07/20/2018. Troponin negative. CXR with no acute findings. While in the ER, patient has remained stable with no further episodes of hypoglycemia or hypotension. S/p Blood Cultures, Vanc/ Zosyn upon arrival for concern for sepsis. DS: Diagnosis - Discharge Diagnosis (1) Hypoglycemia Status: Resolved (2) Hypotension Status: Resolved (3) Hypokalemia Status: Resolved (4) ESRD on hemodialysis Status: Chronic (5) A-fib Status: Chronic DS: Summary Hospital Course: 72-year-old male with a PMH of HTN, A. fib on Eliquis, BPH, COPD, Dementia, CAD , ESRD on HD T/Th/S and DM who was sent to the ER from SNF due to hypoglycemia. Patient also noted to be hypotensive on arrival with some concern for sepsis due to WBC 16.1 and heart rate 94. Blood cultures were negative. Chest x-ray negative. UA ordered but unable to collect. Patient remained afebrile. Suspect that hypoglycemia was related to patient's recent weight loss without adjustment to insulin. Hypotension likely due to volume depletion from dialysis. Patient had new PermCath placed on 08/01/18 after failed placement of Vas-Cath on 07/30.. - Time Spent with Patient Total time spent providing and/or coordinating discharge services: Less than 30 minutes - Quality: VTE Deep Vein Thrombosis/Pulmonary Embolism Present on Admission: No Exam Vital signs: Vital Signs 07/31/18 08:00 07/31/18 15:35 07/31/18 15:50 Temperature 98.0 F 97.7 F Pulse Rate 67 85 79 Respiratory Rate 18 20 20 Blood Pressure 137/79 93/50 L 102/51 L Pulse Oximetry 100 94 L 94 L 07/31/18 16:20 07/31/18 19:47 07/31/18 23:39 Temperature 98.5 F 98.3 F Pulse Rate 81 87 71 Respiratory Rate 20 17 17 Blood Pressure 100/55 L 100/51 L 126/58 L Pulse Oximetry 96 98 98 08/01/18 00:01 08/01/18 03:44 08/01/18 04:01 Temperature 98.3 F Pulse Rate 73 76 71 Respiratory Rate 17 Blood Pressure 136/63 Pulse Oximetry 99 Intake & Output 07/31/18 08/01/18 08/01/18 18:59 06:59 18:59 Intake Total 100 / 100 Output Total 2500 / 2500 Balance -2500 / -2500 100 / 100 Intake: IV 100 / 100 Maxipime Inj 2,000 MG In NS Inj 100 / 100 100 ML @ 200 mls/hr IV.SIG Q24H [facility] Rx#:[id number] Output: Hemodialysis Amount 2500 / 2500 Other: # Voids 1 Date of Last Bowel Movement 07/29/18 Narrative: GENERAL: well-developed chronically ill-appearing elderly male patient in [facility]. SKIN: Warm and dry. No rash. Right heel with stage II pressure ulcer. Sacrum and buttocks with skin breakdown. PermCath in right chest wall. HEENT: Normocephalic. Atraumatic. Pupils equal and round. Mucous membranes pink and moist. CARDIOVASCULAR: Irregular rate and rhythm. 2/6 systolic murmur noted. RESPIRATORY: No accessory muscle use. Clear to auscultation. Breath sounds equal bilaterally. GASTROINTESTINAL: Abdomen soft, non-tender, nondistended. Normoactive bowel sounds x4. MUSCULOSKELETAL: No obvious deformities. Extremities without clubbing, cyanosis , or edema. NEUROLOGICAL: Moving all extremities spontaneously. Intermittent confusion consistent with dementia. Results Procedures completed during hospitalization: 07/30/18 - right Internal Jugular Hemodialysis Catheter Non-Tunneled Placement 07/31/18 - right permcath Labs on day of discharge: Labs from last 24 hours 08/01/18 07/31/18 07/31/18 05:35 20:18 18:35 Sodium 145 Potassium 3.9 Chloride 107 Carbon Dioxide 30.2 Anion Gap 8 BUN 13 Creatinine 2.64 H Estimated GFR 24 L POC Glucose 125 H 66 L Random Glucose 91 Calcium 7.4 L* Prot Corrected Calcium 8.6 Total Protein 5.0 L Random Vancomycin 23.5 07/31/18 07/31/18 07/31/18 12:06 08:41 06:15 Sodium 144 Potassium 3.8 Chloride 108 H Carbon Dioxide 27.7 Anion Gap 8 BUN 18 Creatinine 2.94 H Estimated GFR 21 L POC Glucose 76 82 Random Glucose 82 Calcium 7.4 L* Prot Corrected Calcium 8.6 Total Protein 5.0 L Random Vancomycin Preliminary micro results at discharge 07/27/18 17:25 Aerobic Blood Culture - Preliminary Blood - Other No growth in 4 days Anaerobic Blood Culture - Preliminary No growth in 4 days 07/27/18 17:20 Aerobic Blood Culture - Preliminary Blood - Other No growth in 4 days Anaerobic Blood Culture - Preliminary No growth in 4 days - Impressions ITS Impressions Chest X-Ray 07/27/18 17:13 CONCLUSION: No acute cardiopulmonary disease or significant change. Catheter Placement 07/31/18 00:00 CONCLUSION: 1. Uncomplicated Dialysis catheter placement as above. Discharge Plan - Discharge Disposition Patient Disposition: Discharge to SNF - Discharge Condition Condition: Serious - Discharge Order Discharge Orders: Discharge Order (Routine); Ordered 08/01/18 Ordered By: Janis Castañeda - Discharge Details Discharge Comment: Recommend that patient be continued on sliding scale insulin only. Levemir and scheduled insulin stopped while hospitalized due to hypoglycemia. - Physicians Team Primary Care Provider: Landen Haley Attending Provider: Romeo Miranda Other Providers: Zia Ibrahim MD ; [facility]
[2018-08-01 08:32] VITALS: BP 136/62; PULSE 73; RESP 16; TEMP 98.1; O2SAT 96
--- NOTE | 2018-08-01 08:35 | P.PNNP ---
Subjective Interval history: patient is confused due to dementia. Had dialysis and PermCath placed yesterday. To be discharged today. Physical Exam Vital signs: Vital Signs 07/31/18 15:35 07/31/18 15:50 07/31/18 16:20 Temperature 97.7 F Pulse Rate 85 79 81 Respiratory Rate 20 20 20 Blood Pressure 93/50 L 102/51 L 100/55 L Pulse Oximetry 94 L 94 L 96 07/31/18 19:47 07/31/18 23:39 08/01/18 00:01 Temperature 98.5 F 98.3 F Pulse Rate 87 71 73 Respiratory Rate 17 17 Blood Pressure 100/51 L 126/58 L Pulse Oximetry 98 98 08/01/18 03:44 08/01/18 04:01 08/01/18 08:30 Temperature 98.3 F 98.1 F Pulse Rate 76 71 73 Respiratory Rate 17 16 Blood Pressure 136/63 136/62 Pulse Oximetry 99 96 Intake & Output 07/31/18 08/01/18 08/01/18 18:59 06:59 18:59 Intake Total 100 / 100 Output Total 2500 / 2500 Balance -2500 / -2500 100 / 100 Intake: IV 100 / 100 Maxipime Inj 2,000 MG In NS Inj 100 / 100 100 ML @ 200 mls/hr IV.SIG Q24H WILFREDO Rx#:[id number] Output: Hemodialysis Amount 2500 / 2500 Other: # Voids 1 Date of Last Bowel Movement 07/29/18 Narrative: GENERAL: well-developed chronically ill-appearing elderly male patient in [facility]. SKIN: Warm and dry. No rash. Right heel with stage II pressure ulcer. Sacrum and buttocks with skin breakdown. PermCath in right chest wall. HEENT: Normocephalic. Atraumatic. Pupils equal and round. Mucous membranes pink and moist. CARDIOVASCULAR: Irregular rate and rhythm. 2/6 systolic murmur noted. RESPIRATORY: No accessory muscle use. Clear to auscultation. Breath sounds equal bilaterally. GASTROINTESTINAL: Abdomen soft, non-tender, nondistended. Normoactive bowel sounds x4. MUSCULOSKELETAL: No obvious deformities. Extremities without clubbing, cyanosis , or edema. NEUROLOGICAL: Moving all extremities spontaneously. Intermittent confusion consistent with dementia. Assessment and Plan - Assessment (1) ESRD (end stage renal disease) on dialysis Code(s): N18.6 - End stage renal disease; Z99.2 - Dependence on renal dialysis Status: Chronic Plan: Dialysis will be continued TTS. Monitor fluid and electrolytes. His prognosis is very poor. (2) Anemia of renal disease Code(s): D63.1 - Anemia in chronic kidney disease Status: Chronic Plan: Epogen with dialysis. Hemoglobin is lower. Will continue to monitor. (3) Toxic metabolic encephalopathy Code(s): G92 - Toxic encephalopathy Status: Acute Plan: Underlying dementia. No evidence of active infection. Was hypoglycemic on admission. (4) Hypoglycemia Code(s): E16.2 - Hypoglycemia, unspecified Status: Acute - Plan Patient can be discharged from renal standpoint. As mentioned, his prognosis is very poor as he is unable to take care of himself, has poor insight into his problems. Hospice may be appropriate.
[2018-08-01] MEDS: Insulin NovoLOG Aspart Correctional Sugar Inj SQ SCH (09:11)
[2018-08-01] MEDS: Amiodarone 200 MG Tablet PO SCH (10:13)
[2018-08-01] MEDS: Sodium Chloride 0.9% 2 ML Flush BID IV.FLUSH SCH (10:14)
[2018-08-01] MEDS: Pantoprazole Sodium 20 MG DR Tablet PO SCH (10:14)
[2018-08-01] MEDS: Tiotropium Bromide 18 MCG/ACT Inhaler INH SCH (10:14)
[2018-08-01] MEDS: Pregabalin 75 MG Capsule PO SCH (10:14)
[2018-08-01] MEDS: Senna/Docusate Sodium 8.6/50 MG Tablet PO SCH (10:14)
[2018-08-01] MEDS: Carboxymethylcellulose 0.5% Opth Drops 15 ML Bottle EACH EYE SCH (10:14)
--- NOTE | 2018-08-01 11:59 | IR ---
EXAM DATE: 07/30/2018 7:00 AM EDT AGE/SEX: 72 years / Male INDICATIONS: Patient presents with Hypoglycemia in need of a Temporary Central Venous Catheter place ment for Hemodialysis. CLINICAL DATA: This is the patient's initial encounter. Patient reports that signs and symptoms have been present for 1 day and indicates a pain score of 0/10. MEDICAL/SURGICAL HISTORY: Congestive heart failure. Chronic obstructive pulmonary disease. De mentia. Diabetes, MRSA, ESBL, HTN, Fibromyalgia, PTSD, Sleep Apnea. . Liver Biopsy, TURP, Hand surg karen, Coronary Angioplasty implant and graft, Nephrostomy. COMPARISON: . FLUORO TIME (min): 0.3 IMAGE SERIES: 3 ACCESS SITE: Right internal jugular vein DEVICE(S): 14 [place] double lumen 15 cm Schon catheter . . PROCEDURE : 1. Ultrasound guided venipuncture. 2. Fluoroscopic guidance. 3. Central line placement. The risks, benefits and alternatives to the procedure were explained and verbal and written consent w as obtained. The site was prepped in sterile fashion. Full sterile technique was used, including ca p, mask, sterile gloves and gown and a large sterile sheet. Hand hygiene and 2% chlorhexidine prep w as utilized per protocol for cutaneous antisepsis with appropriate dry time for site. Sterile gel an d sterile probe cover were utilized for ultrasound guidance. The skin and subcutaneous tissues were infiltrated with local anesthetic solution. A suitable site a derek the vein was selected with ultrasound and fluoroscopic guidance. A small incision was made. Th e vein was accessed under direct ultrasound visualization using the micropuncture technique. The loly ropuncture set was exchanged for a 0.035 wire. The tract was dilated. The catheter was advanced int o position under direct fluoroscopic visualization, and was advanced with the tip at the junction of the superior vena cava and rt atrium. The catheter was fixed in place with suture and a sterile dres sing was applied. The patient tolerated the procedure well and there were no complications. CONCLUSION: 1. Uncomplicated line placement as above. Electronically signed by: Raleigh Guillen MD 08/01/2018 11:58 AM EDT
== END 2018-08-01 10:11 ==
LOC: NEPE 16:54 → NEDA 16:54 → NEPFCDU 23:16
PROVIDERS: ADMIT Internal Medicine; ATTEND Internal Medicine